=== PATIENT | female | born 1940 | race Caucasian/White ===

== ENCOUNTER 2017-04-02 16:38 | Inpatient (IN) | payer OTHER, MEDICARE ==
[~2017-04-02] VITALS: Ht 142.2 cm; Wt 55.8 kg
[~2017-04-02 16:38] MED LIST: ACIDOPHILU PO; ACIDOPHILUS1 CAP PO; ALBUTEROL 3 ML3 ML INH; ALPRAZOLAM0.5 M3 PO; AMITRIPTYLINE H50 MG PO; BINOSTO70 MG PO; CALCIUM + D 6001 TAB PO; FENOFIBRIC ACI135 MG PO; FIORICET 325 MG1 TAB PO; FOLIC ACID 1 MG PO; FUROSEMIDE20 MG PO; HYDROXYCHLOROQ200 M1 PO; LIDODERM 5% PAT1 PAT TOP; LOPRESSOR 25MG25 MG PO; LUNESTA3 MG PO; MASON NATURAL325 MG PO; MORPHINE SULFAT15 M2 PO; Mycostatin Susp PO; PREDNISONE5 MG PO; PREVACID 30MG30 MG PO; PROSTAT PO; TORADOL10 MG PO; TRAMADOL50 MG PO; VITAMIN B COMPL1 CA1 PO; VITAMIN D2000 I1 PO; VITAMIN D50000 IU PO; XANAX2 MG PO
[2017-04-02 18:03] LABS: ABSOLUTE BASOPHIL COUNT 0 /CUMM (0.0-0.2); ABSOLUTE EOSINOPHIL COUNT 0 /CUMM (0.0-0.7); ABSOLUTE GRANULOCYTE CT 5.8 /CUMM (1.4-6.5); ABSOLUTE MONOCYTE COUNT 0.3 /CUMM (0.10-0.60); BASOPHIL % 0.4 % (0.0-2.0); EOSINOPHIL % 0.1 % (0-5); GRANULOCYTE % 81.9 % (42.2-75.2); HEMATOCRIT 27.1 % (37-47); MEAN CORPUSCULAR HGB 27.9 PG (27.0-31.0); MEAN CORPUSCULAR HGB CONC 32.4 G/DL (33.0-37.0); MEAN CORPUSCULAR VOLUME 85.9 FL (81.0-99.0); MEAN PLATELET VOLUME 8.6 FL (7.4-10.4); PLATELET COUNT 236 /CUMM (130-400); RBC DISTRIBUTION WIDTH 18.9 % (11.5-14.5); RED BLOOD CELL CT 3.15 /CUMM (4.20-5.40)
--- NOTE | 2017-04-02 18:44 | ED DYSPNEA/ASTHMA COMPLAINT ---
History of Present Illness General Chief Complaint: General Adult Stated Complaint: SENT BY DAVI FOR ?CHF Source: patient, family, old records Exam Limitations: no limitations Vital Signs & Intake/Output Vital Signs & Intake/Output Vital Signs Date Time Temp Pulse Resp B/P B/P Pulse O2 O2 Flow FiO2 Mean Ox Delivery Rate 04/02 1922 Room Air 04/02 1654 97.7 78 20 145/74 96 Room Air Allergies Coded Allergies: Penicillins (SWELLING, RASH, ITCH 04/02/17) aspirin (RASH 04/02/17) cephalexin (From KEFLEX) (ITCHY 04/02/17) codeine (ITCH 04/02/17) levofloxacin (From LEVAQUIN) (RASH 04/02/17) oxaprozin (From DAYPRO) (RASH 04/02/17) propoxyphene (UNKNOWN REACTION TO DARVOCET 04/02/17) Reconcile Medications Apixaban (Eliquis) 2.5 MG TABLET 1 TAB PO BID BLOOD THINNER (Reported) Calcium Carbonate/Vitamin D3 (Os-Mehdi 500+D3 Caplet) 500 MG-200 TABLET 1 TAB PO DAILY SUPPLEMENT (Reported) Carvedilol 25 MG TABLET 1 TAB PO BID HEART/BP (Reported) Ergocalciferol (Vitamin D2) (Vitamin D2) 50,000 UNIT CAPSULE 1 CAP PO QWED SUPPLEMENT (Reported) Ferrous Sulfate 325 MG (65 MG IRON) TABLET 1 TAB PO QAM SUPPLEMENT (Reported) Hydromorphone HCl 2 MG TABLET 1-2 TAB PO QHS PRN PAIN (Reported) Hydroxychloroquine Sulfate 200 MG TABLET 1 TAB PO BID RA (Reported) Levothyroxine Sodium 25 MCG TABLET 1 TAB PO DAILY AC THYROID (Reported) Lisinopril 10 MG TABLET 1 TAB PO QAM BP (Reported) Omeprazole 40 MG CAPSULE. 1 CAP PO QAM GI (Reported) Prednisone 10 MG TABLET 1 TAB PO QAM STEROID (Reported) Sertraline HCl 25 MG TABLET 1 TAB PO QAM MENTAL HEALTH (Reported) Triage Note: PT TO ER C/C SIEGEL X [address] QUIROZ FOR R/O CHF EXACERBATION. DENIES C/P. Triage Nurses Notes Reviewed? yes Onset: Abrupt Duration: week(s): (1), constant Timing: recent history Severity: moderate Activities at Onset: activity Prior Episodes/Possible Cause: occasional episodes Modifying Factors: Worsens With: movement. Associated Symptoms: weakness HPI: 76-year-old female history of CHF hypertension anemia,rheumatoid arthritis on steroid, diverticulosis, GERD, hemorrhoids, migraine, obstructive sleep apnea not compliance with CPAP and osteoporosis disease presents with her son for evaluation complaining of one-week history of worsening dyspnea on exertion orthopnea. She denies any chest pain she follow up with her primary care physician and towel sorter this week who advised her to increase her Lasix to 40 mg by mouth. She's been compliant with taking all of her other medication including elliquis. No dizziness light as fever chills. She reports her baseline nonproductive cough no sputum production. Her legs up and getting progressively more swollen. (Richie Herrera) Past History Travel History Traveled to [place] past 21 day No Medical History Any Pertinent Medical History? see below for history Neurological: migraine EENT: cataracts Cardiovascular: CHF, hypertension, hyperlipidemia Respiratory: pneumonia, DYSPNEA Gastrointestinal: diverticulitis, HEMORRHOIDS BOWEL RESECTION COLOSTOMY Hepatic: NONE Renal: 3+PROTEIN IN URINE [id number] Musculoskeletal: rheumatoid arthritis Psychiatric: anxiety, depression, insomnia Endocrine: vitamin D deficiency Blood Disorders: anemia Cancer(s): NONE ICE SKATER/Reproductive: NONE History of MRSA: No History of VRE: No History of CDIFF: No Pneumonia Vaccine: 12/23/11 Surgical History Surgical History: colon resection, hysterectomy Psychosocial History Who do you live with Patient/Self Services at Home Servant What is your primary language Dominican Tobacco Use: Quit >30 days ago Family History Family History, If Any: Relation not specified for: *No pertinent family history Hx Contributory? No (Richie Herrera) Review of Systems Review of Systems Constitutional: Reports: see HPI. Comments Review of systems: See HPI, All other systems negative. Constitutional, no chills no fever, HEENT: no sore throat no congestion, Cardiovascular: No chest pain , no palpitation Skin: no rashes, no change in skin Respiratory: dyspnea cough no sputum no hemoptysis GI: No nausea no vomiting, no diarrhea Muscle skeletal: No joint pain, no back pain Neurologic: , no headache Heme/endocrine: No bruising Immunology: No lymphadenopathy (Richie Herrera) Physical Exam Physical Exam General Appearance: no apparent distress, alert, awake, cachetic Respiratory: decreased breath sounds Comments: Well-developed well-nourished person in no acute distress HEENT: Normal EENT exam; PERRL, EOMI, HEAD is atraumatic. moist mucous membranes. Neck: Supple, normal range of motion without pain or tenderness Back: Full range of motion Cardiovascular: Regular rate and rhythms no murmur Respiratory: Chest nontender.There were no bony deformities, no asymmetry. No respiratory distress. Patient speaking in full complete sentences. Diminished breath sounds bilaterally Abdomen: Soft, nontender nondistended, no appreciable organomegaly. Normal bowel sounds. No rebound/guarding, No appreciable enlargement of the abdominal aorta, No ascites. rectal: (+) external hemorrhoid, no bleeding Extremity: 4+ pitting edema full range of motion of extremitie Neuro: Alert oriented x3, motor sensory normal, There were no obvious focal neurologic abnormalities. Skin: dry skin noted to sacrum, no ulcer No appreciable rash on exposed skin, skin is warm and dry. Psych: Mood and affect is normal, memory and judgment is normal. Core Measures ACS in differential dx? Yes CVA/TIA Diagnosis No Sepsis Present: No Sepsis Focused Exam Completed? No (Radha MATTA,Richie) Progress Differential Diagnosis: asthma, AMI, bronchitis, CHF, COPD, pericarditis, pneumonia, pneumothorax, unstable angina Plan of Care: Orders Procedure Date/time Status Heart Healthy Diet 04/03 B Active TROPONIN LEVEL 04/03 0600 Active EKG 04/03 0600 Active TROPONIN LEVEL 04/03 0000 Active EKG 04/03 0000 Active Pathway - chart 04/02 2151 Active House Staff 04/02 2151 Active Patient Data 04/02 2151 Active Code Status 04/02 2151 Active URINALYSIS 04/02 2149 Active Intake & Output 04/02 2031 Active Add-on Test (ER Only) 04/02 2019 Active ECHOCARDIOGRAM 04/02 1954 Active Patient Data 04/02 1940 Active OXYGEN SETUP (GEN) 04/02 192 Active Saline Lock 04/02 1921 Active Admit to inpatient 04/02 1921 Active Vital Signs 04/02 1921 Active Activity/Ambulation 04/02 1921 Active Code Status 04/02 1921 Complete Telemetry/Physical Therapy Aides Teacher 04/02 191 Active Cueto, Insertion/Removal/Asses 04/02 191 Active CULTURE,URINE 04/02 191 Active PARTIAL THROMBOPLASTIN TIME 04/02 1725 Complete PROTHROMBIN TIME 04/02 1725 Complete TROPONIN LEVEL 04/02 1650 Complete MAGNESIUM 04/02 1650 Complete COMPREHENSIVE METABOLIC PANEL 04/02 165 Complete CBC WITHOUT DIFFERENTIAL 04/02 1650 Complete B-TYPE NATRIURETIC PEP (BNP) 04/02 165 Complete EKG 04/02 1639 Active Weight 04/02 UNK Active VTE Mechanical Prophylaxis 04/02 UNK Active Telemetry/Physical Therapy Aides Teacher 04/02 UNK Active Nursing Misc 04/02 UNK Active Intake & Output 04/02 UNK Active Current Medications Sig/Rick Start time Last Medication Dose Stop Time Status Admin Furosemide 40 MG 7:30 AM, & 4:30 PM 04/03 0730 UNVr (Lasix) Heparin Sodium 5,000 UNIT Q8 04/02 2200 UNVr (Porcine) Laboratory Tests 04/02/17 1725: Anion Gap 9, Estimated GFR 40 L, BUN/Creatinine Ratio 30.0 H, Glucose 100 H, Calcium 9.4, Magnesium 1.8, Total Bilirubin < 0.1 L, AST 18, ALT 33, Alkaline Phosphatase 58, Troponin I 0.39 *H, Enz-O-Dnbplmxqkgf Pept 8090 H, Total Protein 4.7 L, Albumin 2.4 L, Globulin 2.3, Albumin/Globulin Ratio 1.0 L, PT 12.5, INR 1.19, APTT 27, CBC w Diff NO MAN DIFF REQ, RBC 3.15 L, MCV 85.9, MCH 27.9, RDW 18.9 H, MPV 8.6, Gran % 81.9 H, Lymphocytes % 14.0 L, Monocytes % 3.6, Eosinophils % 0.1, Basophils % 0.4, Absolute Granulocytes 5.8, Absolute Lymphocytes 1.0 L, Absolute Monocytes 0.3, Absolute Eosinophils 0, Absolute Basophils 0, PUBS MCHC 32.4 L Microbiology 04/02 1999 URINE ROUT: Urine Culture - RECD labs ordered, old records reviewed. case d/w dr hernandez who agrees with plan. pt med with iv lasix 40mg per dr quiroz, i spoke with him regarding todays labs and elevated troponin and ekg. pt has no pain. he advised she is stable for tele. Diagnostic Imaging: Viewed by Me: Radiology Read. Discussed w/RAD: Radiology Read. Radiology Impression: PATIENT: RYAN CHRISTENSEN PRESENT AGE: 76 PATIENT ACCOUNT NO: [id number] : 39 LOCATION: LAX ORDERING PHYSICIAN: Jayson Quiroz MD SERVICE DATE: 03/31/171434 EXAM TYPE: RAD - XRY-CHEST XRAY, TWO VIEWS EXAMINATION: CHEST 2 VIEWS CLINICAL INFORMATION: Shortness of breath. COMPARISON: 11/15/2014. TECHNIQUE: AP frontal and lateral views of the chest were obtained. FINDINGS: The cardiac silhouette is enlarged, but stable. There are moderate bilateral pleural effusions with associated airspace disease. The osseous structures are stable. IMPRESSION: Stable cardiomegaly with moderate bilateral pleural effusions with associated airspace disease. DICTATED BY: James Buchanan MD DATE/TIME DICTATED:03/31/171526 LEAK DETECTOR:TED DATE/TIME TRANSCRIBED:03/31/171526 CONFIDENTIAL, DO NOT COPY WITHOUT APPROPRIATE AUTHORIZATION. <Electronically signed in Other Vendor System> SIGNED BY: James Buchanan MD 03/31/17 5108 Initial ED EKG: nsr at 70, t wave inversion v5-v6, nonspecific st seg changes Prior EKG: changed (10/2014) Rhythm Strip: normal sinus rhythm (Richie Herrera) Departure Departure Time of Disposition: 1937 Disposition: STILL A PATIENT Condition: Stable Clinical Impression Primary Impression: CHF exacerbation Qualifiers: Congestive heart failure type: unspecified congestive heart failure type Qualified Code: I50.9 - Heart failure, unspecified Secondary Impressions: Chronic anemia Chronic kidney disease Qualifiers: Chronic kidney disease stage: unspecified stage Qualified Code: N18.9 - Chronic kidney disease, unspecified Elevated troponin Pleural effusion Referrals: Corrina Fortune MD (PCP/Family) Departure Forms: Customer Survey General Discharge Information Admission Note Spoke With: Kodak Marques MD Documentation of Exam: Documentation of any treatments & extenuating circumstances including Concerns Regarding Discharge (functional status, medication knowledge or non-compliance, living conditions, etc.) that warrant an admission rather than observation: [iv diuresis, trend labs and troponin, cardiology consult, premature discharge would be medically harmful (Richie Herrera) PA/MEDICAL LABORATORY MANAGER Co-Sign Statement Statement: ED Attending supervision documentation- x I saw and evaluated the patient. I have also reviewed all the pertinent lab results and diagnostic results. I agree with the findings and the plan of care as documented in the PA's/MEDICAL LABORATORY MANAGER's documentation. PMHx CHF, HTN, RA with SIEGEL, rales, + trop, elevated BNP, lateral new ischemic EKG changes and bilateral effusions on CXR [] I have reviewed the ED Record and agree with the PA's/MEDICAL LABORATORY MANAGER's documentation. [] Additions or exceptions (if any) to the PAs/MEDICAL LABORATORY MANAGER's note and plan are summarized below: [] (Pedro CURTIS,Reggie) Critical Care Note Critical Care Note Critical Care Time: non-applicable (Radha MATTA,Richie)
[2017-04-02] MEDS ORDERED: LEVOTHYROXINE25 MCG PO (19:10)
[2017-04-02] MEDS ORDERED: HYDROXYCHLOROQ200 M2 PO (19:10)
[2017-04-02] MEDS ORDERED: OMEPRAZOLE40 M1 PO (19:10)
[2017-04-02] MEDS ORDERED: LISINOPRIL10 M1 PO (19:11)
[2017-04-02] MEDS ORDERED: FERROUS SULFAT325 M3 PO (19:11)
[2017-04-02] MEDS ORDERED: SERTRALINE HCL25 MG PO (19:11)
[2017-04-02] MEDS ORDERED: ELIQUIS2.5 M1 PO (19:12)
[2017-04-02] MEDS ORDERED: PREDNISONE10 M2 PO (19:12)
[2017-04-02] MEDS ORDERED: CARVEDILOL25 M1 PO (19:12)
[2017-04-02] MEDS ORDERED: HYDROMORPHONE HC2 M1 PO (19:13)
[2017-04-02] MEDS ORDERED: OS-CAL 500+D31 EAC1 PO (19:13)
[2017-04-02] MEDS ORDERED: VITAMIN D250000 UNIT PO (19:13)
--- NOTE | 2017-04-02 20:04 | History & Physical ---
Jaswant Noel MD 04/02/17 2004: General Information and HPI MD Statement: I have seen and personally examined RYAN CHRISTENSEN and documented this H&P. The patient is a 76 year old F who presented with a patient stated chief complaint of [dyspnea on exertion, sent in by Dr. Zavala]. Source of Information: patient, family, old records Exam Limitations: confusion, poor historian History of Present Illness: Patient is a 76-year-old female with past medical history of stage II diastolic dysfunction, hypertension, history of DVT currently on Eliquis, anemia, obstructive sleep apnea noncompliant with CPAP, anxiety, depression, rheumatoid arthritis on prednisone, diverticulosis, hemorrhoids presents this admission with chief complaint of dyspnea on exertion, sent in by Dr. Zavala. Patient is a poor historian. Patient's son was present at the time of interview and provided much of the history however stated that there were discrepancies on what the patient disclosed to him compared to the visiting nurses about her symptoms over the past few weeks. Patient states that for the past 3-4 days she has had shortness of breath on exertion while moving from the bed to the commode. States that she has associated nonradiating left chest pain during this time. States that over the past one day she has noticed increasing chest pain with radiation to the back. States that the chest pain resolves for 10-15 minutes of complete rest. Patient denies any palpitations, sweating, nausea/ vomiting. Per son patient is seen by the visiting nurse daily and receives her medications and is bleed daily. States that over the past 2 weeks patient has received a total of 4 doses of Lasix 40 mg due to weight gain. Son states that patient complained of shortness of breath to the visiting nurse today who spoke to Dr. Zavala and was ED. Patient and son also notes that the patient has had increasing bilateral lower extremity edema which has worsened since . Patient was recently hospitalized at [place] for pneumonia after which she was discharged to a rehabilitation facility in [facility] where her Lasix was stopped. It is unclear as to why this occurred. Patient states that she sleeps in a recliner which makes easier for her to raise the head and her legs. States that there has been no change in the elevation of her head of the recliner. Denies PND. Son reports that patient remains nonactive and either in bed or in front of the TV for approximately 75% of the day. States that the patient requires a walker and assist of one to walk or uses a wheelchair. States over the past year she has significantly deteriorated. Allergies/Medications Allergies: Coded Allergies: Penicillins (SWELLING, RASH, ITCH 04/02/17) aspirin (RASH 04/02/17) cephalexin (From KEFLEX) (ITCHY 04/02/17) codeine (ITCH 04/02/17) levofloxacin (From LEVAQUIN) (RASH 04/02/17) oxaprozin (From DAYPRO) (RASH 04/02/17) propoxyphene (UNKNOWN REACTION TO DARVOCET 04/02/17) Home Med list Apixaban (Eliquis) 2.5 MG TABLET 1 TAB PO BID BLOOD THINNER (Reported) Calcium Carbonate/Vitamin D3 (Os-Mehdi 500+D3 Caplet) 500 MG-200 TABLET 1 TAB PO DAILY SUPPLEMENT (Reported) Carvedilol 25 MG TABLET 1 TAB PO BID HEART/BP (Reported) Ergocalciferol (Vitamin D2) (Vitamin D2) 50,000 UNIT CAPSULE 1 CAP PO QWED SUPPLEMENT (Reported) Ferrous Sulfate 325 MG (65 MG IRON) TABLET 1 TAB PO QAM SUPPLEMENT (Reported) Hydromorphone HCl 2 MG TABLET 1-2 TAB PO QHS PRN PAIN (Reported) Hydroxychloroquine Sulfate 200 MG TABLET 1 TAB PO BID RA (Reported) Levothyroxine Sodium 25 MCG TABLET 1 TAB PO DAILY AC THYROID (Reported) Lisinopril 10 MG TABLET 1 TAB PO QAM BP (Reported) Omeprazole 40 MG CAPSULE.DR 1 CAP PO QAM GI (Reported) Prednisone 10 MG TABLET 1 TAB PO QAM STEROID (Reported) Sertraline HCl 25 MG TABLET 1 TAB PO QAM MENTAL HEALTH (Reported) Past History Travel History Traveled to [place] past 21 day No Medical History Neurological: migraine EENT: cataracts Cardiovascular: CHF, hypertension, hyperlipidemia Respiratory: pneumonia, DYSPNEA Gastrointestinal: diverticulitis, HEMORRHOIDS BOWEL RESECTION COLOSTOMY Hepatic: NONE Renal: 3+PROTEIN IN URINE [id number] Musculoskeletal: rheumatoid arthritis Psychiatric: anxiety, depression, insomnia Endocrine: vitamin D deficiency Blood Disorders: anemia Cancer(s): NONE ONCOLOGY PHYSICIAN ASSISTANT/Reproductive: NONE History of MRSA: No History of VRE: No History of CDIFF: No Pneumonia Vaccine: 12/23/11 Surgical History Surgical History: colon resection, hysterectomy Past Family/Social History Family History Relations & Conditions if any Relation not specified for: *No pertinent family history Psychosocial History Services at Home: Servant Primary Language: Romansh Functional Ability Ambulation: cane IADLs Needs Assist: shopping, housework, food prep. Review of Systems Review of Systems Constitutional: Reports: see HPI, chills. Cardiovascular: Reports: see HPI. Respiratory: Reports: see HPI. GI: Reports: changes in stool (dark stool in colostomy). Genitourinary: Reports: no symptoms. Musculoskeletal: Reports: joint pain. Skin: Reports: no symptoms. Neurological/Psychological: Reports: confusion. Hematologic/Endocrine: Reports: no symptoms. Exam & Diagnostic Data Last 24 Hrs of Vital Signs/I&O Vital Signs Date Time Temp Pulse Resp B/P B/P Pulse O2 O2 Flow FiO2 Mean Ox Delivery Rate 04/03 0457 136/68 04/02 2343 99.0 65 18 98/54 94 04/02 2140 Room Air 04/02 1922 Room Air 04/02 1654 97.7 78 20 145/74 96 Room Air Intake & Output 04/03 0800 04/03 0000 04/02 1600 Intake Total Output Total 200 Balance -200 Output, Urine 200 Patient 143 lb 149 lb Weight Weight Chair scale Reported by Patient Measurement Method Physical Exam General Appearance Alert, Cooperative, No Acute Distress HEENT Atraumatic, PERRLA, EOMI, Mucous Membr. moist/pink Cardiovascular Regular Rate, Normal S1, Normal S2, S3 Lungs decreased air entry bilaterally Abdomen Normal Bowel Sounds, Soft, No Tenderness, 1+ edema Neurological Normal Speech, Sensation Intact, Cranial Nerves 3-12 NL Extremities 3+ pitting edema bilaterally Vascular Normal Pulses, Pulses Symmetrical Last 24 Hrs of Labs/Rubin: Laboratory Tests 04/03/17 0030: Troponin I 0.43 *H 04/02/17 1725: Anion Gap 9, Estimated GFR 40 L, BUN/Creatinine Ratio 30.0 H, Glucose 100 H, Calcium 9.4, Magnesium 1.8, Iron 34 L, TIBC 233 L, Ferritin Pending, Total Bilirubin < 0.1 L, AST 18, ALT 33, Alkaline Phosphatase 58, Troponin I 0.39 *H, Pdu-X-Enirgpduzkg Pept 8090 H, Total Protein 4.7 L, Albumin 2.4 L, Globulin 2.3, Albumin/Globulin Ratio 1.0 L, Vitamin B12 Pending, Folate Pending, PT 12.5 , INR 1.19, APTT 27, CBC w Diff NO MAN DIFF REQ, RBC 3.15 L, MCV 85.9, MCH 27.9 , RDW 18.9 H, MPV 8.6, Gran % 81.9 H, Lymphocytes % 14.0 L, Monocytes % 3.6, Eosinophils % 0.1, Basophils % 0.4, Absolute Granulocytes 5.8, Absolute Lymphocytes 1.0 L, Absolute Monocytes 0.3, Absolute Eosinophils 0, Absolute Basophils 0, PUBS MCHC 32.4 L Microbiology 04/02 1999 URINE ROUT: Urine Culture - RECD Diagnostic Data EKG Results Normal sinus rhythm at a rate of 66 with T-wave flattening and inversion in leads II, III, aVL, and inversions in V5 and V6. Repeat EKG showing evolving T wave inversions now also in V4 and more prominent in other leads CXR Results Stable cardiomegaly with moderate bilateral pleural effusions with associated airspace disease Other Results Echo in 2014 showing an LV ejection fraction of greater than 65% with stage II diastolic dysfunction and "pseudo-normal" filling pattern Assessment/Plan Assessment: Patient is a 76-year-old female with significant past medical history of diastolic dysfunction, hypertension, anemia, anxiety presenting this admission with dyspnea on exertion, extensive edema in lower extremities all the way up to patient's iliac crest, bilateral pleural effusions and elevated troponins with EKG changes and anemia. Patient will be admitted to the telemetry floor for management of followin. Decompensated diastolic heart failure. This is likely secondary to fluid overload from discontinuing Lasix at the half-way. Other possible causes of this include anemia, NM, infection. Cardiology consult in the a.m. Dr. Zavala is patient's flour broker. Monitor on telemetry Lasix 40 mg daily with BEP to monitor sodium and potassium Serial Troponin and EKG to rule out ACS Echo in a.m. Lower extremity Dopplers TSH and T4 Continue carvedilol 25 mg twice a day NPO for possible thoracentesis in the a.m. 2. Atypical chest pain with elevated troponin and EKG changes showing evolving T-wave inversions. Trend troponins and EKG Cardiology consult [place] stool Patient started on IV heparin Atorvastatin, aspirin 3. Anemia acute on chronic Continue iron supplement Iron levels him a B12, folate Type and cross Stool guaiac 4. History of hypothyroidism Continue synthroid 5. History of rheumatoid arthritis Continue prednisone and Plaquenil DVT PPx: on IV heparin Diet: NPO for possible thoracentesis Code: DNR/DNI As Ranked By This Provider Problem List: 1. CHF exacerbation Qualifiers Congestive heart failure type: unspecified congestive heart failure type Qualified Code: I50.9 - Heart failure, unspecified 2. Elevated troponin 3. Chest pain, atypical 4. Pleural effusion Core Measures/Misc (12/08) Acute Coronary Syndrome ACS Diagnosis: Yes Last Known EF % 65 Congestive Heart Failure Congestive Heart Failure Diagnosis No Cerebrovascular Accident CVA/TIA Diagnosis: No VTE (View Protocol) VTE Risk Factors Age>40 No Mechanical VTE Prophylaxis d/t N/A MechProphylax Ordered No VTE Pharm Prophylaxis d/t NA PharmProphylax ordered Sepsis (View protocol) Sepsis Present: No Jerald CURTIS, [facility] 04/02/17 2331: Attending MD Review Statement Attending Statement Attending MD Statement: examined this patient, discuss w/resident/PA/AGGREGATE CONVEYOR OPERATOR, agreed w/resident/PA/AGGREGATE CONVEYOR OPERATOR, discussed with family, reviewed images, amended to note Attending Assessment/Plan: 76 yo F with h/o RA on plaquenil and prednisone, HTN, HLD, anxiety, possible diastolic CHF, TACO not on CPAP, CKD stage 3, chronic anemia, colonic perforation following a colonoscopy requiring Constance's procedure with hospital course c/b oliguric ATN and demand ischemia (Oct 2014), re-admitted same month for hypoxia in the setting of pleural effusions at which point patient was transferred to [facility] per family request. Patient underwent thoracentesis at [facility] but is not sure of the diagnosis. Subsequently, patient was admitted twice in the past year ( 2016) to [facility] for LLE DVT (July 2016) on Eliquis and later (Dec 2016) for pneumonia and pleural effusions (underwent thoracentesis). She is here today for evaluation of worsening dyspnea. Patient lives alone, has an aide and a visiting nurse, barely ambulates with a walker from her recliner to the commode. She needs assistance with ADL's. History obtained from son at bedside. Patient's lower extremity edema has worsened over past 2 weeks, visiting nurse discussed with Dr. Zavala who advised lasix 40 mg for 3 days. However, despite the lasix, the edema did not improve. Today, patient was extremely short of breath while seated in her recliner. She also reports left sided chest discomfort and dyspnea while transferring herself from commode to the recliner. No palpitations or lightheadedness. Patient reports a h/o CHF and was on lasix in the past but most recently this was discontinued after her recent hospitalization at [place] (Dec 2016). Family is not sure why. Patient also reports that her stool in the colostomy has been darker in the past 1 week (while on iron supplements). Vitals stable. Exam: AAO, in mild distress due to duff catheter, MMM, Neck: JVD not appreciated, Chest reduced air entry R>L, Heart S1S2 regular, Abd soft, left colostomy bag+ with dark stool, LE: 3+ pitting pedal edema, difficult to assess peripheral pulses due to edema. Sacral decubitus stage 1 wound. Labs: H/H 8.8/27.1 (baseline H/H 9-11/28-33), bicarb 21, BUN 39, creat 1.3 ( baseline 1.0-1.4), trop 0.39, proBNP 8090. CXR: Stable cardiomegaly with mdoerate bilateral pleural effusions with associated airspace disease. Echo ( 2014): EF > 65%, stage 2 diastolic dysfunction. Initial EKG: sinus rhythm, J-point elevation in V2, T-wave flattening and inversions in I, II, aVL, V5-6 (new), Qtc 394. 2nd troponin 0.43 with EKG now showing diffuse TWI in inferior leads, V4-6. Assessment and plan: 1. Dyspnea at rest and on exertion 2. Bilateral lower extremity edema 3. Acute on chronic heart failure, probably diastolic CHF 4. Bilateral pleural effusions (R>L) 5. Acute on chronic normocytic anemia 6. Hypoalbuminemia 7. Elevated troponin with EKG changes NSTEMI vs Type 2 NM - Admit to telemetry - Daily weights, strict I/O's - IV lasix 40 daily, can increase to 40 BID based on diuresis - Monitor renal functions while on lasix - Obtain echo to assess LV function - Serial EKG and troponin - Check TSH, free T4 - Cardio consult - LE dopplers to rule out DVT - Type and crossmatch, transfuse if Hb < 8.0 - Guaiac stools, check iron studies, B12, folic acid, retic count - CT chest without contrast was done - shows right greater than left bilateral pleural effusions with associated airspace disease, moderate sized hiatal hernia , cholelithiasis. - Obtain Pulm consult - Plan for diagnostic and therapeutic thoracentesis by IR in AM - Given elevated troponin with EKG changes, and possible plan for thoracentesis, we will hold off eliquis and initiate IV heparin per PTT protocol. - Plan to resume eliquis post thoracentesis - If hypotensive, check cortisol levels and give stress dose steroids (patient is on chronic prednisone) DVT ppx IV heparin. DNR/I. Korina Carrillo 04/03/17 0235: General Information and HPI Allergies/Medications Compliance With Home Meds: GOOD Resident Review Statement Resident Statement: examined this patient, discussed with chemist internship, agreed with chemist internship, discussed with family, reviewed EMR data (avail), discussed with nursing , discussed with case mgmt, reviewed images, amended to note Other Findings: This is a very pleasant 76-year-old woman with past medical history of stage II HFpEF and mild RVSP (30 mmhg and mild TR) (prior admission in 2014 for bilateral pleural effusion which required thoracentesis; @ [facility], results ??), colon perforation s/p Constance precedure and colostomy bag placement which was complicated w/ type II NM (w/o wall motion ab/nl; normal EF, HFpEF), who was admitted for grooming to the hospital for worsening dyspnea on exertion and peripheral edema failed outpatient therapy. She lives right across the street to her son, who is the primary caregiver for his mother. Majority of the story was obtained from him and was double checked with the patient . According to patient's son, she was admitted to [facility] last year for pneumonia and pleural effusion which required antibiotic therapy and thoracentesis. She was discharged in November to [facility] for rehabilitation. According to son, patient's Lasix was stopped at some point either a [place] hospital or half-way she was discharged home one week after . Patientincrease in swelling of her legs on stay but otherwise she was asymptomatic. About one week ago visiting nurse was concerned (significant increase in weight and worsening of peripheral edema; otherwise asymptomatic) [facility] called Dr. Zavala's office. Outpatient chest x-ray showed development of bilateral pleural effusion (R > L) and patient was started on a course of by mouth Lasix 40 mg for 3 days, which according to son did not resolve the aforementioned problems. At her baseline patient is not very physically active (physical activity less < 4ME) and according to her son spends most of the day in bed and recyliner chair. According to son For the past 3 days she became winded/had labored breathing with minimal activity (changing clothes, and using commode, etc.); Shortness of breath worsened over the stretcher 3 days and son noticed significant increase of her bilateral lower extremity edema. Patient sleeps in a recliner (has not raised the head of the incline or for the past few days), denies paroxysmal nocturnal dyspnea, right upper quadrant abdominal discomfort, cough and sputum production, GI/ symptoms, lightheadedness and dizziness. On the related note, for the past 72 hours patient started having episodes of inituially, self-limited, mainly left-sided, exertional chest pain, without radiation to left or right arm or left jaw or back, pain was 4-5 out of 10 and was not associated with nausea, vomiting, feeling sweaty or clammy, and it was resolving with rest in 10-15 minutes. On the day of admission day, patients' chest pain became more intense (5-6 out of 10) with the same characteristics but pain radiated to her back. Patient remained otherwise asymptomatic. Son contacted Dr. Zavala's office, who recommended to transfer the patient to the emergency department. * In the emergency room, she received 40 mg of IV Lasix. CT scan of the chest was obtained which showed large right and a moderate left pleural effusion. VSS. ROS: Dyspnea on exertion, exertional left-sided chest pain. PH/EX: GA: Comfortable not in acute distress; head and neck: ?? JVD, mucosal membranes: Moist; heart: S1-S2, S3 gallop, no murmur; lungs: Diminished air movement lungs are quiet prominently on her right base, no crackle, no wheezing; abdomen is soft no guarding no rebound no hepatojugular reflux, 1+ pitting edema up to the umbilicus level (on the iliac crest); extremities: Bilateral 3+ pitting pedal edema going up to umbilicus. Pertinent data CBC: Normal WBC and platelets, H&H: 8.8/27.1 compared to 03/31/2017 (9.1/28.6) Sodium 140; potassium 4.9; chloride 111, bicarbonate 21, AG 9, creatinine 1.3 Coagulation panel: PT 12.5 INR 1.19 Troponin 0.39 at the time of admission>> 0.43 EKG Initial EKG: Normal sinus rate and rhythm, subtle T-wave inversion in V5 and V6 ?? v4 Second EKG at midnight: Normal sinus rate and rhythm; obvious T-wave inversion in V5 and V6 and V4 ProBNP: 8090 Assessment Kathia is a 76 years old woman was admitted for decompensated heart failure for what it seems to be related to multifactorial causes. List of active problems #1 decompensated CHF: Probably multifactorial. Reviewing patient's records showed worsening of her baseline anemia that might have caused ACS. Additionally, anemia by itself could contribute to patient's worsening symptoms of dyspnea and extraction and diminished physical tolerance for the past few months. Additionally lack of transfer Lasix which was discovered in a half-way would have contributed to decompensation of her heart failure. #2 symptomatic anemia #3 NSTEMI # hypothyroidism # History of DVT on Eliqis- hold # Hypothyroidism # Rheumatoid arthritis Plan * Admit to telemetry for continuous heart monitoring * Hold elquis in anticipation for thoracentesis * Aspirin 325 mg once * Aspirin 81 mg by mouth daily; holding off in giving clopidogrel in anticipation for thoracentesis * Start IV heparin for ACS and DVT prophylaxis * Duff for 24 hours and strict ins and outs control try to maintain negative fluid balance * Lasix 40 mg IV daily * daily weigh; heart healthy diet and gentle fluid restriction * Ultrasound-guided thoracentesis * Follow body fluids labs (cell count, cytology, Gram stain, albumin, total protein, cholesterol) ; check modified lites criteria * Continue methotrexate @ home dose every Friday * Continue prednisone 10 mg daily * Continue folic acid supplementation * Continue hydroxychloroquine @ home dose 200 mg by mouth twice a day * Continue lisinopril 10 mg daily * Continue carvedilol 25 mg daily * Tylenol that 2 mg by mouth as needed at bedtime * Check TSH, free T4 * Cardio consult * pulm consult * LE dopplers to rule out DVT * Type and crossmatch, transfuse if Hb < 8.0 * Guaiac stools, check iron studies, B12, folic acid, retic count DNR/DNI Housekeeping
[2017-04-02 20:45] LABS: PT 12.5 SEC (9.4-12.5); PTT 27 SEC (25-37)
--- NOTE | 2017-04-02 20:58 | Admission Certification ---
Admission Certification Certification Statement - As attending physician, I certify that at the time of - admission, based on clinical presentation, severity of - symptoms, need for further diagnostic testing and - therapeutic interventions, and risk of adverse outcomes - without in-hospital treatment, in my clinical assessment, - this patient requires an acute hospital stay for a minimum - of two nights or longer. I have also considered psychsocial - factors such as support system, advanced age, financial - issues, cognitive issues, and failed out-patient treatments, - past re-admission history, safety of patient, and lack of - compliance as applicable. Specific rationale supporting this admission is: Acute on chronic heart failure with preserved ejection fraction. Elevated troponin NSTEMI vs. Type 2 NC.
--- NOTE | 2017-04-02 21:09 | CT SCAN REPORT ---
EXAMINATION: CT CHEST WITHOUT CONTRAST CLINICAL INFORMATION: Follow-up pleural effusion. Pneumonia. COMPARISON: Multiple prior exams are reviewed. The most recent is from 03/31/2017. TECHNIQUE: Contiguous axial thin section helical images of the chest were performed without contrast. The data set was reformatted in the coronal and sagittal planes and reviewed on an independent workstation. DLP: 323 mGy-cm. FINDINGS: The heart is of normal size. There is no pericardial effusion. There is neither mediastinal, hilar nor axillary lymphadenopathy. There are no chest wall masses. Review of lung windows demonstrates a large right and a moderate left pleural effusion. There is associated passive atelectasis. There is also linear atelectasis within the inferior segment of the lingula. There are no demonstrable pulmonary parenchymal nodules. There is a moderate-sized hiatal hernia. Images of the upper abdomen demonstrate that the liver is of normal size and attenuation without focal lesions. Normal adrenal glands are identified. There are calculi within the gallbladder lumen. Bone windows: Neither sclerotic nor lytic bone lesions are identified. IMPRESSION: Right greater than left bilateral pleural effusions with associated airspace disease. Moderate sized hiatal hernia. Cholelithiasis without evidence of cholecystitis.
[2017-04-02 23:43] VITALS: BP 98/54
[2017-04-03 04:57] VITALS: BP 136/68
[2017-04-03 08:21] LABS: PT 11.9 SEC (9.4-12.5)
--- NOTE | 2017-04-03 09:59 | Cons- Cardiology ---
General Information and HPI Consulting Request Date of Consult: 04/03/17 Requested By: Jerald CURTIS,[employer] Reason for Consult: Shortness of breath. Source of Information: patient, old records Exam Limitations: poor historian History of Present Illness: Mrs. Rama Corona is a 76-year-old female with a history of anxiety/ depression, rheumatoid arthritis on chronic steroid therapy, previous deep venous thrombosis on chronic anticoagulation with the factor Xa inhibitor Eliquis (apixaban), obesity, obstructive sleep apnea on CPAP, chronic anemia, hypertension, aortic stenosis, left ventricular hypertrophy, and diastolic dysfunction, who presented to the ED on our recommendation after her visiting nurse contacted our office to relate symptoms of progressive shortness of breath and weight gain. She was to be on a chronic diuretic dosage, but for unclear reasons was not taking this. We reinitiated therapy with furosemide 20 mg daily which did not improve her symptoms and, as such, was increased to 40 mg daily. We had also recommended that she be enrolled in the heart wellness clinic, but she claimed she couldn't get there due to transportation difficulties. We stayed in contact with the visiting nurse and did have her undergo a CXR on 03/31/2017 which revealed cardiomegaly, moderate bilateral pleural effusions and associated airspace disease. When we were contacted yesterday and learned that she was not feeling any better , we recommended evaluation in the ED. She was last hospitalized here (10/10-10/28/2014) for colonic perforation following colonoscopy for GI symptoms s/p Constance procedure with subsequent modest bump in troponin felt secondary to type II myocardial infarction, volume overload, acute kidney injury, and growth of Escherichia coli in her body fluid who was again admitted (-11/17/2014) after presenting to the ED with constant periumbilical 8/10 ache with some associated shortness of breath with room air O2 saturation at ECF 88% following 2 days of decreased by mouth intake secondary to poor appetite and nausea. Also reportedly had a fever, nausea and vomited 3, as well as, some loose stool in her colostomy bag. In the emergency department she was afebrile, tachypneic, and did have an elevated WBC count with left shift. There were no symptoms to suggest a urinary tract infection. She had a low probability and had been recommended thoracentesis for bilateral pleural effusions, but opted to be transferred to [facility]. It was no evidence of an acute intra-abdominal process. A VQ scan was performed that was low probability for pulmonary embolism. She was found to have significant bilateral pleural effusions right greater than left. Allergies/Medications Allergies: Coded Allergies: Penicillins (SWELLING, RASH, ITCH 04/02/17) aspirin (RASH 04/02/17) cephalexin (From KEFLEX) (ITCHY 04/02/17) codeine (ITCH 04/02/17) levofloxacin (From LEVAQUIN) (RASH 04/02/17) oxaprozin (From DAYPRO) (RASH 04/02/17) propoxyphene (UNKNOWN REACTION TO DARVOCET 04/02/17) Home Med List: Apixaban (Eliquis) 2.5 MG TABLET 1 TAB PO BID BLOOD THINNER (Reported) Calcium Carbonate/Vitamin D3 (Os-Mehdi 500+D3 Caplet) 500 MG-200 TABLET 1 TAB PO DAILY SUPPLEMENT (Reported) Carvedilol 25 MG TABLET 1 TAB PO BID HEART/BP (Reported) Ergocalciferol (Vitamin D2) (Vitamin D2) 50,000 UNIT CAPSULE 1 CAP PO QWED SUPPLEMENT (Reported) Ferrous Sulfate 325 MG (65 MG IRON) TABLET 1 TAB PO QAM SUPPLEMENT (Reported) Hydromorphone HCl 2 MG TABLET 1-2 TAB PO QHS PRN PAIN (Reported) Hydroxychloroquine Sulfate 200 MG TABLET 1 TAB PO BID RA (Reported) Levothyroxine Sodium 25 MCG TABLET 1 TAB PO DAILY AC THYROID (Reported) Lisinopril 10 MG TABLET 1 TAB PO QAM BP (Reported) Omeprazole 40 MG CAPSULE.DR 1 CAP PO QAM GI (Reported) Prednisone 10 MG TABLET 1 TAB PO QAM STEROID (Reported) Sertraline HCl 25 MG TABLET 1 TAB PO QAM MENTAL HEALTH (Reported) Review of Systems Review of Systems: A 14 point system review was obtained and was noncontributory, other than as above. Past History Travel History Traveled to [place] past 21 day No Medical History Blood Transfusion Hx: No Neurological: migraine EENT: cataracts Cardiovascular: CHF, hypertension, hyperlipidemia Respiratory: pneumonia, DYSPNEA Gastrointestinal: diverticulitis, HEMORRHOIDS BOWEL RESECTION COLOSTOMY Hepatic: NONE Renal: 3+PROTEIN IN URINE [id number] Musculoskeletal: rheumatoid arthritis Psychiatric: anxiety, depression, insomnia Endocrine: vitamin D deficiency Blood Disorders: anemia Cancer(s): NONE PRINCIPAL BIOSTATISTICIAN/Reproductive: NONE Surgical History Surgical History: colon resection, hysterectomy, laminectomy Family History Relations & Conditions If Any: Relation not specified for: *No pertinent family history Psychosocial History Where Do You Live? Home Services at Home: [facility] Primary Language: [place] Smoking Status: Former Smoker Functional Ability Ambulation: cane IADLs Needs Assist: shopping, housework, food prep. Exam & Diagnostic Data Vital Signs and I&O Vital Signs Date Time Temp Pulse Resp B/P B/P Pulse O2 O2 Flow FiO2 Mean Ox Delivery Rate 04/03 1042 62 140/62 04/03 1042 62 140/62 04/03 1030 98.1 62 20 140/62 96 Room Air 04/03 0800 Room Air 04/03 0457 136/68 04/02 2343 99.0 65 18 98/54 94 04/02 2140 Room Air 04/02 1922 Room Air 04/02 1654 97.7 78 20 145/74 96 Room Air Intake & Output 04/03 1600 04/03 0804/03 0000 04/02 1600 04/02 0800 04/02 0000 Intake Total Output Total 200 Balance -200 Output, Urine 200 Patient 143 lb 149 lb Weight Weight Chair scale Reported by Patient Measurement Method Physical Exam: Well-developed, overweight elderly female in no acute distress with nasal oxygen in place. Vital signs: See above. HEENT: Normocephalic, atraumatic, EOMI, slightly dry mucous membranes.: No JVD, no bruits. Lungs: Decreased breath sounds bilaterally at the bases. Heart: S1, S2 with no murmur, gallop, or rub appreciated. The OR fifth ICS at [facility]. Abdomen: Soft, nontender, positive bowel sounds. Extremities: Positive edema. Labs/Rubin Results: Laboratory Tests 04/03 04/03 04/03 04/03 1025 0658 0549 0030 Chemistry Sodium (137 - 145 mmol/L) 140 Potassium (3.5 - 5.1 mmol/L) 3.9 Chloride (98 - 107 mmol/L) 111 H Carbon Dioxide (22 - 30 mmol/L) 22 Anion Gap (5 - 16) 7 BUN (7 - 17 mg/dL) 39 H Creatinine (0.5 - 1.0 mg/dL) 1.2 H Estimated GFR (>60 ml/min) 44 L BUN/Creatinine Ratio (7 - 25 %) 32.5 H Troponin I (< 0.11 ng/ml) 0.48 *H 0.43 *H Coagulation PT (9.4 - 12.5 SEC) 11.9 INR (0.90 - 1.19) 1.13 APTT (25 - 37 SEC) 35 Other Body Source Fluid WBC Cancelled Fld Total RBCs Counted Cancelled 04/02 1725 Chemistry Sodium (137 - 145 mmol/L) 140 Potassium (3.5 - 5.1 mmol/L) 4.9 Chloride (98 - 107 mmol/L) 111 H Carbon Dioxide (22 - 30 mmol/L) 21 L Anion Gap (5 - 16) 9 BUN (7 - 17 mg/dL) 39 H Creatinine (0.5 - 1.0 mg/dL) 1.3 H Estimated GFR (>60 ml/min) 40 L BUN/Creatinine Ratio (7 - 25 %) 30.0 H Glucose (65 - 99 mg/dL) 100 H Calcium (8.4 - 10.2 mg/dL) 9.4 Magnesium (1.6 - 2.3 mg/dL) 1.8 Iron (37 - 170 ug/dL) 34 L TIBC (265 - 497 ug/dL) 233 L Ferritin (11.1 - 264 ng/mL) 60.2 Total Bilirubin (0.2 - 1.3 mg/dL) < 0.1 L AST (14 - 36 U/L) 18 ALT (9 - 52 U/L) 33 Alkaline Phosphatase (<127 U/L) 58 Troponin I (< 0.11 ng/ml) 0.39 *H [id number] Pept (<125 pg/mL) 8090 H Total Protein (6.3 - 8.2 g/dL) 4.7 L Albumin (3.5 - 5.0 g/dL) 2.4 L Globulin (1.9 - 4.2 gm/dL) 2.3 Albumin/Globulin Ratio (1.1 - 2.2 %) 1.0 L Vitamin B12 (239 - 931 pg/mL) 466 Folate (2.76 - 20.0 ng/mL) 7.1 Coagulation PT (9.4 - 12.5 SEC) 12.5 INR (0.90 - 1.19) 1.19 APTT (25 - 37 SEC) 27 Hematology CBC w Diff NO MAN DIFF REQ WBC (4.8 - 10.8 /CUMM) 7.0 RBC (4.20 - 5.40 /CUMM) 3.15 L Hgb (12.0 - 16.0 G/DL) 8.8 L Hct (37 - 47 %) 27.1 L MCV (81.0 - 99.0 FL) 85.9 MCH (27.0 - 31.0 PG) 27.9 RDW (11.5 - 14.5 %) 18.9 H Plt Count (130 - 400 /CUMM) 236 MPV (7.4 - 10.4 FL) 8.6 Gran % (42.2 - 75.2 %) 81.9 H Lymphocytes % (20.5 - 51.1 %) 14.0 L Monocytes % (1.7 - 9.3 %) 3.6 Eosinophils % (0 - 5 %) 0.1 Basophils % (0.0 - 2.0 %) 0.4 Absolute Granulocytes (1.4 - 6.5 /CUMM) 5.8 Absolute Lymphocytes (1.2 - 3.4 /CUMM) 1.0 L Absolute Monocytes (0.10 - 0.60 /CUMM) 0.3 Absolute Eosinophils (0.0 - 0.7 /CUMM) 0 Absolute Basophils (0.0 - 0.2 /CUMM) 0 PUBS MCHC (33.0 - 37.0 G/DL) 32.4 L Diagnostic Data EKG Results 04/03/2017: Sinus rhythm and abnormal nondiagnostic ST-T wave abnormalities. CXR Results 03/31/2017: Stable cardiomegaly with moderate bilateral pleural effusions with associated airspace disease. Other Results Chest CT without IV contrast 04/02/2017: Right greater than left bilateral pleural effusions with associated airspace disease. Moderate sized hiatal hernia. Cholelithiasis without evidence of cholecystitis. Assessment/Plan Assessment/Plan [id number] w/ hx anxiety/depression, RA on steroid Rx, previous DVT on Eliquis ( apixaban), obesity, TACO on CPAP, chronic anemia, HTN, , LVH, & diastolic dysfunction, who presented to the ED on our recommendation after her visiting nurse contacted our office to relate symptoms of progressive SOB & weight gain w / CXR findings of cardiomegaly, moderate bilateral pleural effusions, and associated airspace disease. Based on her history is suspect that her presentation is most consistent with acute on chronic diastolic heart failure (HFpEF). Suspect that the modest troponin I elevation is on the basis of type II myocardial infarction and not an acute coronary syndrome. Recommendations: * Continue with telemetry admission, follow-up troponins, repeat ECG. * Strict inputs/outputs and daily weights. * Diuresis with IV furosemide 40 mg daily and reassess the need for further IV diuresis in the a.m. * Repeat CXR following a good diuresis. * Follow-up BUN/creatinine, potassium, magnesium, etc. closely and replete as necessary. * Echocardiogram to reassess left ventricular systolic/diastolic function, right ventricular function, degree of aortic stenosis, estimated PA pressure, etc. * Check free T4, TSH, glycosylated hemoglobin A1c, etc. * DVT prophylaxis being addressed by apixaban. Consult Acknowledgment - Thank you for your consult request.
[2017-04-03 10:30] VITALS: BP 140/62
[2017-04-03 11:49] LABS: PTT 35 SEC (25-37)
--- NOTE | 2017-04-03 11:51 | PN- Housestaff ---
See Addendum Thom CURTIS,Jojo 04/03/17 1151: Subjective Follow-up For: Acute decompensated CHF NSTEMI History of DVT on Eliquis Complaints: pain scale (0-10) Subjective: On exam patient states that her lower legs are bothering her because of the Alps. She also notes that her right sided IV line hurts. She is on room air. She denies any chest pain, palpitations, shortness of breath. Patient was noted to have black stool in her colostomy bag Review of Systems Constitutional: Reports: weakness. Cardiovascular: Reports: no symptoms. Respiratory: Reports: no symptoms. Musculoskeletal: Reports: muscle pain, muscle stiffness. Objective Last 24 Hrs of Vital Signs/I&O Vital Signs Date Time Temp Pulse Resp B/P B/P Pulse O2 O2 Flow FiO2 Mean Ox Delivery Rate 04/03 1454 97.8 60 20 120/58 94 Room Air 04/03 1042 62 140/62 04/03 1042 62 140/62 04/03 1030 98.1 62 20 140/62 96 Room Air 04/03 0800 Room Air 04/03 0457 136/68 04/02 2343 99.0 65 18 98/54 94 04/02 2140 Room Air 04/02 1922 Room Air Intake & Output 04/03 1600 04/03 0800 04/03 0000 Intake Total 496 Output Total 1300 1500 Balance -804 -1500 Intake, IV 136 Intake, Oral 360 Output, Urine 1300 1500 Patient 143 lb 149 lb Weight Weight Chair scale Reported by Patient Measurement Method Physical Exam General Appearance: Alert, Oriented X3, Cooperative, No Acute Distress Skin: No Rashes Skin Temp/Moisture Exam: Warm/Dry Cardiovascular: Regular Rate, Normal S1, Normal S2, No Murmurs Lungs: RIGHT-SIDED RHONCHI Abdomen: LEFT COLOSTOMY BAG Extremities: No Clubbing, No Cyanosis, Normal Pulses, LOWER LEG EDEMA Current Medications: Current Medications Sig/Rick Start time Last Medication Dose Route Stop Time Status Admin Acetaminophen 650 MG Q4P PRN 04/03 1200 AC PO Apixaban 2.5 MG BID 04/02 2215 DC PO Aspirin 325 MG .STK-MED ONE 04/03 1221 DC PO 04/03 1222 Aspirin 81 MG DAILY 04/03 1000 AC 04/03 PO 1042 Aspirin 325 MG ONCE ONE 04/03 0300 DC 04/03 PO 04/03 0301 0440 Atorvastatin Calcium 20 MG ONCE ONE 04/03 0300 DC 04/03 PO 04/03 0301 0440 Carvedilol 12.5 MG BID 04/03 1000 DC PO Carvedilol 25 MG BID 04/03 1000 AC 04/03 PO 1042 Clopidogrel Bisulfate 150 MG ONCE ONE 04/03 0315 CAN PO 04/03 0316 Ferrous Gluconate 325 MG DAILY 04/03 1000 AC 04/03 PO 1042 Furosemide 40 MG DAILY 04/03 1000 AC 04/03 IV 1042 Furosemide 40 MG 7:30 AM, & 4:30 PM 04/03 0730 DC IV Furosemide 0 .STK-MED ONE 04/02 1935 DC IV Furosemide 40 MG ONCE ONE 04/02 1914 DC 04/02 IV 04/02 Heparin Sodium 3,894 UNIT ONCE ONE 04/03 1300 DC 04/03 (Porcine) IV 04/03 1301 1320 Heparin Sodium 25,000 UNIT Q24H 04/03 0315 AC 04/03 (Porcine) IV 1300 Sodium Chloride 500 ML Heparin Sodium 5,000 UNIT Q8 04/02 220 DC (Porcine) SC Hydromorphone HCl 2 MG QPM PRN 04/03 0257 AC PO Hydromorphone HCl 1 MG QPM PRN 04/02 2215 DC PO Hydroxychloroquine 200 MG BID 04/02 2201 AC 04/03 Sulfate PO 1042 Levothyroxine Sodium 0.025 MG DAILY AC 04/03 0700 AC 04/03 PO 0609 Lisinopril 10 MG DAILY 04/03 1000 AC 04/03 PO 1042 Omeprazole 40 MG DAILY AC 04/03 0700 AC 04/03 PO 0609 Prednisone 10 MG DAILY 04/03 1000 AC 04/03 PO 1042 Last 24 Hrs of Lab/Rubin Results Last 24 Hrs of Labs/Mics: Laboratory Tests 04/03/17 1330: Troponin I 0.51 *H, TSH 1.180, Free T4 1.28 04/03/17 1025: APTT 35 04/03/17 0658: Anion Gap 7, Estimated GFR 44 L, BUN/Creatinine Ratio 32.5 H, Troponin I 0.48 *H, PT 11.9, INR 1.13 04/03/17 0549: Fluid WBC Cancelled, Fld Total RBCs Counted Cancelled 04/03/17 0030: Troponin I 0.43 *H 04/02/171999: Urine Color STRAW, Urine Clarity HAZY H, Urine pH 6.0, Ur Specific [place] 1.025, Urine Protein 100 H, Urine Ketones NEG, Urine Nitrite POS H, Urine Bilirubin NEG, Urine Urobilinogen 0.2, Ur Leukocyte Esterase SMALL H, Ur Microscopic SEDIMENT EXAMINED, Urine RBC 5-10 H, Urine WBC 5-10 H, Ur Epithelial Cells FEW, Urine Bacteria MANY H, Granular Casts RARE H, Urine Hemoglobin MOD H, Urine Glucose NEG Microbiology 04/02 1999 URINE ROUT: Urine Culture - RES GRAM NEGATIVE RODS Assessment/Plan Assessment: Patient is a 76-year-old female with significant past medical history of diastolic dysfunction, hypertension, anemia, anxiety presenting this admission with dyspnea on exertion, extensive edema, bilateral pleural effusions and elevated troponins with EKG changes in the inferior and lateral leads (T-wave inversion) and anemia. Chest x-ray showed Stable cardiomegaly with moderate bilateral pleural effusions with associated airspace disease. CT showed moderate pleural effusions more on the right side. She has history of pleural effusion the past. Patient was admitted to the telemetry floor for management of followin. Decompensated diastolic heart failure. As patient has extensive bilateral pleural effusions seen on x-ray, thoracentesis is planned for tomorrow. Patient last had Eliquis yesterday so awaiting time of 48 hours is necessary. Will speak with interventional radiology in the morning to determine if radiologist is comfortable with this time period. Patient is on heparin for anticoagulation instead. According to hvac journeyman, we will attempt to aggressively diurese the patient and then repeat a chest x-ray in the morning before committing to thoracentesis. Repeat echocardiogram Thyroid function tesTS As per Dr. Zavala continue patient on IV Lasix 40 mg daily TSH and T4 Continue carvedilol 25 mg twice a day Nothing By mouth for possible thoracentesis in the a.m. INR is 1.13 (requested by interventional radiology before thoracentesis) 2. Atypical chest pain with elevated troponin and EKG changes showing evolving T-wave inversions. Most recently troponin increased to 0.51. EKG remains the same. Overnight telemetry showed normal sinus rhythm 55-62 Trend troponins and EKG Cardiology consult [place] stool Patient started on IV heparin Atorvastatin, aspirin 3. Anemia acute on chronic Continue iron supplement Iron levels him a B12, folate Stool guaiac 4. Lower leg pain Patient is asking for Alps to be removed as she has pain Patient is on heparin we will DC Alps 5. Black stool in colostomy bag Likely due to iron supplements 6. Generalized pain Patient notes that she has generalized pain that she attributes to osteoarthritis Gave 650 mg Tylenol every 4 hours when necessary is DNR/DNI Problem List: 1. Chest pain, atypical 2. Pleural effusion 3. Chronic anemia 4. Elevated troponin 5. Chronic kidney disease 6. CHF exacerbation Pain Ratin Pain Location: LOWER LEGS AND GENERALIZED Pain Goal: Pain 4 or less Pain Plan: TYLENOL Tomorrow's Labs & Rationales: CBC BEP Miryam Luevano 04/03/17 1742: Attending MD Review Statement Attending Statement Attending MD Statement: examined this patient, discuss w/resident/PA/GRAPHIC MANAGER, agreed w/resident/PA/GRAPHIC MANAGER, reviewed EMR data (avail), discussed with nursing, discussed with case mgmt Attending Assessment/Plan: 76 yr old female with pmh of diastolic chf, dvt on eliquis since july of 2016, RA on prednisone, 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 Pt had mild bump in trop which is stable. Pt also complained of wt gain over the last few weeks for which she was given lasix at home by [facility] per cardiology recommendations. Pt was found to have b/l plerual effusion and was admitted for above symptoms and pleural effusion. CT scan shows b/l pleural effusion with rt side greater than left. Acute chf diastolic exac- cont on lasix 40mg iv daily and cardiology following the pt closely with us. F/u on serial trop. f/u on echo results . Type 2 MS- secondary to chf. monitor on tele and monitor trops. EKG shows inferolateral t wave inversions. will d/w cardiology. Repeat EKG in am. Pleural effusion b/l- will repeat cxr in am. if not improving with diuresis consider getting thoracentesis. cont on heparin drip for now as we have held the eliquis in case she needs thoracentesis. d/w pt the care plan. pt has prior h/o smoking and quit 30 years ago. smoked 1PPD for about 20-30 years.
--- NOTE | 2017-04-03 11:54 | Cons- Pulmonary ---
General Information and HPI Consulting Request Date of Consult: 04/03/17 Requested By: Dr. Luevano Reason for Consult: pleural effusions Source of Information: patient Exam Limitations: no limitations History of Present Illness: Consultation for pleural effusions. 76-year-old woman. Hx of diastolic cardiac dysfunction, hypertension, history of DVT currently on Eliquis, anemia, obstructive sleep apnea declining consistent CPAP use, anxiety, depression, rheumatoid arthritis on prednisone, diverticulosis, hemorrhoids presents this admission with chief complaint of dyspnea on exertion, sent in by Dr. Zavala. Elevated BNP, elevated troponins. CT Right greater than left bilateral pleural effusions with associated airspace disease. Moderate sized hiatal hernia. Cholelithiasis without evidence of cholecystitis. She is on room air and she has leg edema however she is not in respiratory distress. No nausea no vomiting no diarrhea no constipation no chest pain no headache. Allergies/Medications Allergies: Coded Allergies: Penicillins (SWELLING, RASH, ITCH 04/02/17) aspirin (RASH 04/02/17) cephalexin (From KEFLEX) (ITCHY 04/02/17) codeine (ITCH 04/02/17) levofloxacin (From LEVAQUIN) (RASH 04/02/17) oxaprozin (From DAYPRO) (RASH 04/02/17) propoxyphene (UNKNOWN REACTION TO DARVOCET 04/02/17) Home Med List: Apixaban (Eliquis) 2.5 MG TABLET 1 TAB PO BID BLOOD THINNER (Reported) Calcium Carbonate/Vitamin D3 (Os-Mehdi 500+D3 Caplet) 500 MG-200 TABLET 1 TAB PO DAILY SUPPLEMENT (Reported) Carvedilol 25 MG TABLET 1 TAB PO BID HEART/BP (Reported) Ergocalciferol (Vitamin D2) (Vitamin D2) 50,000 UNIT CAPSULE 1 CAP PO QWED SUPPLEMENT (Reported) Ferrous Sulfate 325 MG (65 MG IRON) TABLET 1 TAB PO QAM SUPPLEMENT (Reported) Hydromorphone HCl 2 MG TABLET 1-2 TAB PO QHS PRN PAIN (Reported) Hydroxychloroquine Sulfate 200 MG TABLET 1 TAB PO BID RA (Reported) Levothyroxine Sodium 25 MCG TABLET 1 TAB PO DAILY AC THYROID (Reported) Lisinopril 10 MG TABLET 1 TAB PO QAM BP (Reported) Omeprazole 40 MG CAPSULE.DR 1 CAP PO QAM GI (Reported) Prednisone 10 MG TABLET 1 TAB PO QAM STEROID (Reported) Sertraline HCl 25 MG TABLET 1 TAB PO QAM MENTAL HEALTH (Reported) Current Medications: Current Medications Sig/Rick Start time Last Medication Dose Route Stop Time Status Admin Apixaban 2.5 MG BID 04/02 2214 DC PO Aspirin 81 MG DAILY 04/03 1000 AC 04/03 PO 1042 Aspirin 325 MG ONCE ONE 04/03 0300 DC 04/03 PO 04/03 0301 0440 Atorvastatin Calcium 20 MG ONCE ONE 04/03 0300 DC 04/03 PO 04/03 030 0440 Carvedilol 12.5 MG BID 04/03 1000 DC PO Carvedilol 25 MG BID 04/03 1000 AC 04/03 PO 1042 Clopidogrel Bisulfate 150 MG ONCE ONE 04/03 0315 CAN PO 04/03 0316 Ferrous Gluconate 325 MG DAILY 04/03 1000 AC 04/03 PO 1042 Furosemide 40 MG DAILY 04/03 1000 AC 04/03 IV 1042 Furosemide 40 MG 7:30 AM, & 4:30 PM 04/03 0730 DC IV Furosemide 0 .STK-MED ONE 04/02 1935 DC IV Furosemide 40 MG ONCE ONE 04/02 1914 DC 04/02 IV 04/02 1915 193 Heparin Sodium 25,000 UNIT Q24H 04/03 0315 AC 04/03 (Porcine) IV 0440 Sodium Chloride 500 ML Heparin Sodium 5,000 UNIT Q8 04/02 2199 DC (Porcine) SC Hydromorphone HCl 2 MG QPM PRN 04/03 0257 AC PO Hydromorphone HCl 1 MG QPM PRN 04/02 2214 DC PO Hydroxychloroquine 200 MG BID 04/02 2201 AC 04/03 Sulfate PO 1042 Levothyroxine Sodium 0.025 MG DAILY AC 04/03 0700 AC 04/03 PO 0609 Lisinopril 10 MG DAILY 04/03 1000 AC 04/03 PO 1042 Omeprazole 40 MG DAILY AC 04/03 0700 AC 04/03 PO 0609 Prednisone 10 MG DAILY 04/03 1000 AC 04/03 PO 1042 Review of Systems Comments 18 point review of systems was performed and reviewed. Please see pertinent positives and pertinent negatives in the HPI. Otherwise ROS is negative. Past History Travel History Traveled to [place] past 21 day No Medical History Blood Transfusion Hx: No Neurological: migraine EENT: cataracts Cardiovascular: CHF, hypertension, hyperlipidemia Respiratory: pneumonia, DYSPNEA Gastrointestinal: diverticulitis, HEMORRHOIDS BOWEL RESECTION COLOSTOMY Hepatic: NONE Renal: 3+PROTEIN IN URINE [id number] Musculoskeletal: rheumatoid arthritis Psychiatric: anxiety, depression, insomnia Endocrine: vitamin D deficiency Blood Disorders: anemia Cancer(s): NONE INTAKE MAN/Reproductive: NONE Surgical History Surgical History: colon resection, hysterectomy, laminectomy Family History Relations & Conditions If Any: Relation not specified for: *No pertinent family history Psychosocial History Where Do You Live? Home Services at Home: [facility] Primary Language: Iranian Smoking Status: Former Smoker Functional Ability Ambulation: cane IADLs Needs Assist: shopping, housework, food prep. Exam & Diagnostic Data Last 24 Hrs of Vital Signs/I&O Vital Signs Date Time Temp Pulse Resp B/P B/P Pulse O2 O2 Flow FiO2 Mean Ox Delivery Rate 04/03 1042 62 140/62 04/03 1042 62 140/62 04/03 1030 98.1 62 20 140/62 96 Room Air 04/03 0800 Room Air 04/03 0457 136/68 04/02 2343 99.0 65 18 98/54 94 04/02 2140 Room Air 04/02 1922 Room Air 04/02 1654 97.7 78 20 145/74 96 Room Air Intake & Output 04/03 1600 04/03 0800 04/03 0000 Intake Total Output Total 200 Balance -200 Output, Urine 200 Patient 143 lb 149 lb Weight Weight Chair scale Reported by Patient Measurement Method Physical Exam Other Physical Findings: Generally - Awake, alert and comfortable without distress Head and neck - normocephalic, atraumatic, EOMI grossly intact Cardiovascular - S1, S2 Lungs -diminished breath sounds at bilateral bases and right mid chest wall Abdomen - Bowel sounds positive, soft, non-tender Extremities -edematous Last 48 Hrs of Labs/Rubin: Laboratory Tests 04/03/17 1330: Troponin I Pending 04/03/17 1025: APTT 35 04/03/17 0658: Anion Gap 7, Estimated GFR 44 L, BUN/Creatinine Ratio 32.5 H, Troponin I 0.48 *H, PT 11.9, INR 1.13 04/03/17 0549: Fluid WBC Cancelled, Fld Total RBCs Counted Cancelled 04/03/17 0030: Troponin I 0.43 *H 04/02/17 1725: Anion Gap 9, Estimated GFR 40 L, BUN/Creatinine Ratio 30.0 H, Glucose 100 H, Calcium 9.4, Magnesium 1.8, Iron 34 L, TIBC 233 L, Ferritin 60.2, Total Bilirubin < 0.1 L, AST 18, ALT 33, Alkaline Phosphatase 58, Troponin I 0.39 *H, [place] Pept 8090 H, Total Protein 4.7 L, Albumin 2.4 L, Globulin 2.3, Albumin/Globulin Ratio 1.0 L, Vitamin B12 466, Folate 7.1, PT 12.5, INR 1.19, APTT 27, CBC w Diff NO MAN DIFF REQ, RBC 3.15 L, MCV 85.9, MCH 27.9, RDW 18.9 H, MPV 8.6, Gran % 81.9 H, Lymphocytes % 14.0 L, Monocytes % 3.6, Eosinophils % 0.1, Basophils % 0.4, Absolute Granulocytes 5.8, Absolute Lymphocytes 1.0 L, Absolute Monocytes 0.3, Absolute Eosinophils 0, Absolute Basophils 0, PUBS MCHC 32.4 L Assessment/Plan Impression/Plan: Consultation for pleural effusions. 76-year-old woman. Hx of diastolic cardiac dysfunction, hypertension, history of DVT currently on Eliquis, anemia, obstructive sleep apnea declining consistent CPAP use, anxiety, depression, rheumatoid arthritis on prednisone, diverticulosis, hemorrhoids presents this admission with chief complaint of dyspnea on exertion, sent in by Dr. Zavala. Elevated BNP, elevated troponins. CT Right greater than left bilateral pleural effusions with associated airspace disease. Moderate sized hiatal hernia. Cholelithiasis without evidence of cholecystitis. She is on room air and she has leg edema however she is not in respiratory distress. No nausea no vomiting no diarrhea no constipation no chest pain no headache. Impression 76 year old woman bilateral pleural effusions, elevated bnp, leg edema are all likely secondary to CHF exacerbation/fluid overload Plan -Eliquis held in anticipation of thoracentesis both diagnostic and therapeutic -diuresis, cardiology follow up -if improves significantly can repeat cxr and see if diuresis was sufficient for fluid removal if not the thoracentesis can be pursued once Eliquis has been adquately eliminated from her body DVT prophylaxis at all times Consult Acknowledgment - Thank you for your consult request.
[2017-04-03 14:54] VITALS: BP 120/58
[2017-04-03 21:32] LABS: PTT > 120 SEC (25-37)
[2017-04-03 23:51] VITALS: BP 120/60
[2017-04-04 05:11] LABS: ABSOLUTE BASOPHIL COUNT 0 /CUMM (0.0-0.2); ABSOLUTE EOSINOPHIL COUNT 0 /CUMM (0.0-0.7); ABSOLUTE GRANULOCYTE CT 5.6 /CUMM (1.4-6.5); ABSOLUTE LYMPH COUNT 1.8 /CUMM (1.2-3.4); ABSOLUTE MONOCYTE COUNT 0.5 /CUMM (0.10-0.60); BASOPHIL % 0.4 % (0.0-2.0); EOSINOPHIL % 0.5 % (0-5); GRANULOCYTE % 70.6 % (42.2-75.2); HEMATOCRIT 25.1 % (37-47); MEAN CORPUSCULAR HGB CONC 32.6 G/DL (33.0-37.0); MEAN PLATELET VOLUME 8.9 FL (7.4-10.4); PLATELET COUNT 195 /CUMM (130-400); RBC DISTRIBUTION WIDTH 19.5 % (11.5-14.5); RED BLOOD CELL CT 2.92 /CUMM (4.20-5.40); WHITE BLOOD CELL COUNT 7.9 /CUMM (4.8-10.8)
[2017-04-04 05:21] LABS: PTT 60 SEC (25-37)
[2017-04-04 05:54] VITALS: BP 120/80
--- NOTE | 2017-04-04 08:18 | ECHOCARDIOGRAM REPORT ---
RYAN CHRISTENSEN Age: 76 : 1940 Gender: F Exam Date: 04/03/2017 11:31 Exam Location: [facility] Ht (in): 56 Wt (lb): 120 BSA: 1.49 BP: 136 / 68 Ordering Physician: Korina Carrillo MD Referring Physician: Korina Carrillo MD Technologist: Babak Merida [facility] Room Number: 173-1 Indications: HEART FAILURE Rhythm: Sinus Technical Quality: good FINDINGS Left Ventricle Normal left ventricular size with mild left ventricular hypertrophy. Normal systolic function with no obvious regional wall motion abnormalities. Diastolic filling pattern is consistent with restrictive hemodynamics. The ejection fraction is visually estimated at 60%. Right Ventricle The right ventricle is normal in size and function. Right Atrium The right atrium is normal in size. Left Atrium The left atrium is moderately enlarged. The interatrial septum is intact. Mitral Valve The mitral valve is normal in structure and function. There is mild to moderate mitral regurgitation. Aortic Valve Structurally normal aortic valve without significant sclerosis or stenosis. There is moderate aortic regurgitation. Tricuspid Valve The tricuspid valve is normal in structure and function. There is mild tricuspid regurgitation. Pulmonary artery systolic pressure is normal. Pulmonic Valve Structurally normal pulmonic valve. There is trace pulmonic regurgitation. Pericardium Normal pericardium without effusion. No pleural effusion. Great Vessels Normal aortic root dimension. The aortic arch and great vessels are well seen and are normal. CONCLUSIONS 1. Normal EF of 60% with restrictive hemodynamics. 2. Mild left ventricular hypertrophy. 3. Moderate left atrial enlargement 4. Mild to moderate mitral regurgitation. 5. Mild tricuspid regurgitation. 6. Moderate aortic regurgitation. 7. Trace pulmonic regurgitation. Juan Ulrich M.D. (Electronically Signed) Final Date: 04 April 2017 08:18 MEASUREMENTS (Male / Female) Normal Values 2D ECHO LV Diastolic Diameter PLAX 3.7 cm 4.2 - 5.9 / 3.9 - 5.3 cm LV Systolic Diameter PLAX 2.5 cm 2.1 - 4.0 cm LV Fractional Shortening PLAX 32.4 % 25 - 46 % LV Ejection Fraction 2D Teich 61.6 % IVS Diastolic Thickness 1.2 cm LVPW Diastolic Thickness 1.3 cm LV Relative Wall Thickness 0.7 RV Internal Dim ED PLAX 2.7 cm 1.9 - 3.8 cm LVOT Diameter 1.7 cm Aortic Root Diameter 2.4 cm LA Systolic Diameter LX 3.5 cm 3.0 - 4.0 / 2.7 - 3.8 cm Ascending Aorta Diameter 2.8 cm DOPPLER AV Peak Velocity 187.0 cm/s AV Peak Gradient 14.0 mmHg AV Mean Velocity 120.0 cm/s AV Mean Gradient 7.0 mmHg AV Velocity Time Integral 38.9 cm AI Deceleration [place] 229.0 cm/s AI Peak Velocity 454.0 cm/s AI Pressure Half Time 580.0 ms AI Peak Gradient 82.4 mmHg LVOT Peak Velocity 110.0 cm/s LVOT Peak Gradient 4.8 mmHg LVOT Mean Velocity 66.1 cm/s LVOT Mean Gradient 2.0 mmHg LVOT Velocity Time Integral 24.4 cm LVOT Stroke Volume 55.4 cm AV Area Cont Eq vti 1.4 cm AV Area Cont Eq pk 1.3 cm MV Peak Velocity 122.0 cm/s MV Peak Gradient 6.0 mmHg MV Mean Velocity 64.9 cm/s MV Mean Gradient 2.0 mmHg Mitral E Point Velocity 119.0 cm/s Mitral A Point Velocity 43.9 cm/s Mitral E to A Ratio 2.7 MV PHT Velocity 132.0 cm/s MV Deceleration [place] 446.0 cm/s MV Pressure Half Time 88.8 ms MV Area PHT 2.5 cm MV Deceleration Time 215.0 ms TR Peak Velocity 517.0 cm/s TR Peak Gradient 106.9 mmHg Right Atrial Pressure 10.0 mmHg Pulmonary Artery Systolic Pressu 116.9 mmHg Right Ventricular Systolic Press 116.9 mmHg PV Peak Velocity 125.0 cm/s PV Peak Gradient 6.3 mmHg PV Mean Velocity 86.5 cm/s PV Mean Gradient 4.0 mmHg PV Velocity Time Integral 27.4 cm LV E' Lateral Velocity 7.9 cm/s Mitral E to LV E' Lateral Ratio 15.1 LV E' Septal Velocity 5.5 cm/s Mitral E to LV E' Septal Ratio 21.8
--- NOTE | 2017-04-04 11:32 | PN- Pulmonary ---
Subjective HPI/Critical Care Issues: pt seen and examined on room air dyspnea persists awaiting cxr this am Eliquis held Objective Current Medications: Current Medications Sig/Rick Start time Last Medication Dose Route Stop Time Status Admin Acetaminophen 650 MG Q4P PRN 04/03 1200 AC PO Aspirin 325 MG .STK-MED ONE 04/03 1221 DC PO 04/03 1222 Aspirin 81 MG DAILY 04/03 1000 AC 04/04 PO 0928 Carvedilol 25 MG BID 04/03 1000 AC 04/04 PO 0928 Ferrous Gluconate 325 MG DAILY 04/03 1000 AC 04/04 PO 0929 Furosemide 40 MG DAILY 04/03 1000 AC 04/04 IV 0927 Heparin Sodium 2,000 UNIT ONCE ONE 04/04 0615 DC 04/04 (Porcine) IV 04/04 06 0627 Heparin Sodium 5,000 UNIT .STK-MED ONE 04/03 1319 DC (Porcine) IV 04/03 1320 Heparin Sodium 3,894 UNIT ONCE ONE 04/03 1300 DC 04/03 (Porcine) IV 04/03 1301 1320 Heparin Sodium 25,000 UNIT Q24H 04/03 0315 AC 04/03 (Porcine) IV 1300 Sodium Chloride 500 ML Hydromorphone HCl 2 MG QPM PRN 04/03 0257 AC 04/03 PO 2110 Hydroxychloroquine 200 MG BID 04/02 220 AC 04/04 Sulfate PO 0928 Levothyroxine Sodium 0.025 MG DAILY AC 04/03 0700 AC 04/04 PO 0628 Lisinopril 10 MG DAILY 04/03 1000 AC 04/04 PO 0927 Omeprazole 40 MG DAILY AC 04/03 0700 AC 04/04 PO 0628 Prednisone 10 MG DAILY 04/03 1000 AC 04/04 PO 0929 Vital Signs & I&O Last 24 Hrs of Vitals and I&O: Vital Signs Date Time Temp Pulse Resp B/P B/P Pulse O2 O2 Flow FiO2 Mean Ox Delivery Rate 04/04 927 85 120/80 04/04 926 85 120/80 04/04 0554 98.1 85 20 120/80 95 04/03 2351 98.1 84 20 120/60 94 04/03 2111 62 146/76 04/03 1454 97.8 60 20 120/58 94 Room Air Intake & Output 04/04 1600 04/04 0800 04/04 0000 Intake Total 124.6 480 Output Total Balance 124.6 480 Intake, IV 124.6 Intake, Oral 0 480 Exam Other Physical Findings: Generally - Awake, alert and comfortable without distress Head and neck - normocephalic, atraumatic, EOMI grossly intact Cardiovascular - S1, S2 Lungs -diminished breath sounds at bilateral bases and right mid chest wall Abdomen - Bowel sounds positive, soft, non-tender Extremities -edematous Results Last 24 Hrs of Lab Results: Laboratory Tests 04/04/17 0630: Troponin I Cancelled 04/04/17 0430: Anion Gap 8, Estimated GFR 36 L, BUN/Creatinine Ratio 27.1 H, Magnesium 1.6, Troponin I 0.55 *H, APTT 60 H, CBC w Diff NO MAN DIFF REQ, RBC 2.92 L, MCV 86.0, MCH 28.0, RDW 19.5 H, MPV 8.9, Gran % 70.6, Lymphocytes % 22.6, Monocytes % 5.9, Eosinophils % 0.5, Basophils % 0.4, Absolute Granulocytes 5.6, Absolute Lymphocytes 1.8, Absolute Monocytes 0.5, Absolute Eosinophils 0, Absolute Basophils 0, PUBS MCHC 32.6 L 04/03/17 2300: Troponin I 0.48 *H 04/03/17 1900: APTT Cancelled 04/03/17 1840: APTT > 120 *H 04/03/17 1330: Troponin I 0.51 *H, TSH 1.180, Free T4 1.28 Impression/Plan Impression/Plan Impression/Plan: Impression 76 year old woman bilateral pleural effusions, elevated bnp, leg edema are all likely secondary to CHF exacerbation/fluid overload Plan -Eliquis held in anticipation of thoracentesis both diagnostic and therapeutic -CXR this am, if effusions are similar patient is amenable for a thoracentesis for relief -please ensure that IR is aware and ph, cytology, microbiology, cell count, LDH, t.protein, t.cholesterol are sent DVT prophylaxis at all times
--- NOTE | 2017-04-04 12:11 | RADIOLOGY REPORT ---
EXAMINATION: XR PORTABLE CHEST CLINICAL INFORMATION: Dyspnea. COMPARISON: Chest done on 03/31/2017. TECHNIQUE: Portable frontal view of the chest was obtained. FINDINGS: Moderate right and small left-sided pleural effusions are noted with evidence of nonspecific airspace disease at right mid to lower lung field and left lung base. When compared to prior study, the size of the right-sided pleural effusion has increased. The airspace disease also appears to have progressed bilaterally. The cardiomediastinal silhouette remains moderately enlarged. IMPRESSION: Moderate right and small left-sided pleural effusions with nonspecific airspace disease at right mid to lower lung field and left lung base. When compared to prior study, there is interval progression of disease noted since 03/31/2017.
--- NOTE | 2017-04-04 12:59 | PN- Att Addend ---
Attending MD Review Statement Attending Statement Attending MD Statement: examined this patient, discuss w/resident/PA/DIGITAL SALES MANAGER, agreed w/resident/PA/DIGITAL SALES MANAGER, reviewed EMR data (avail), discussed w/nursing, discussed w/ case mgmt Attending Assessment/Plan: Laboratory Tests 04/04/17 1200: Troponin I Cancelled 04/04/17 0630: Troponin I Cancelled 04/04/17 0430: Anion Gap 8, Estimated GFR 36 L, BUN/Creatinine Ratio 27.1 H, Magnesium 1.6, Lactate Dehydrogenase 467, Troponin I 0.55 *H, APTT 60 H, CBC w Diff NO MAN DIFF REQ, RBC 2.92 L, MCV 86.0, MCH 28.0, RDW 19.5 H, MPV 8.9, Gran % 70.6, Lymphocytes % 22.6, Monocytes % 5.9, Eosinophils % 0.5, Basophils % 0.4, Absolute Granulocytes 5.6, Absolute Lymphocytes 1.8, Absolute Monocytes 0.5, Absolute Eosinophils 0, Absolute Basophils 0, PUBS MCHC 32.6 L 04/03/17 2300: Troponin I 0.48 *H 04/03/17 1900: APTT Cancelled 04/03/17 1840: APTT > 120 *H 04/03/17 1330: Troponin I 0.51 *H, TSH 1.180, Free T4 1.28 Vital Signs Date Time Temp Pulse Resp B/P B/P Pulse O2 O2 Flow FiO2 Mean Ox Delivery Rate 04/04 0928 85 120/80 04/04 0927 85 120/80 04/04 0900 Room Air 04/04 0554 98.1 85 20 120/80 95 04/03 2351 98.1 84 20 120/60 94 04/03 2112 62 146/76 04/03 1454 97.8 60 20 120/58 94 Room Air 76 yr old female with pmh of diastolic chf, dvt on eliquis since july of 2016, RA on prednisone, 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 Pt had mild bump in trop which is stable. Pt also complained of wt gain over the last few weeks for which she was given lasix at home by [facility] per cardiology recommendations. Pt was found to have b/l plerual effusion and was admitted for above symptoms and pleural effusion. CT scan shows b/l pleural effusion with rt side greater than left. Acute chf diastolic exac- cont on lasix 40mg iv daily and cardiology following the pt closely with us. F/u on serial trop reveals stabel torponins, will stop checking them. f/u on echo results reveals normal EF but restrictive diastolic dysfunction. EKG done today on 04/04 show no new changes compared with EKG done this admission. Type 2 AK- secondary to chf. monitor on tele and monitor trops. EKG shows inferolateral t wave inversions. will d/w cardiology. trop stable. will stop checking them. Pleural effusion b/l- repeat cxr reviewed. d/w pulmonary. pt going for thoracentesis this afternoon . will hold heparin for that and will resume it later as per IR recommendations. DVT- cont on heparin drip for now as we have held the eliquis in case she needs thoracentesis. Holding heparin for thoracentesis. Urine culture growing - GNR- will f/u on culture results. pt did not complain of urinary symptoms. Colostomy site examined looks ok. RA- cont on home prednisone dose Hypothyroidism- TSH wnl- cont home dose of levothyroxine. pt has prior h/o smoking and quit 30 years ago. smoked 1PPD for about 20-30 years.
--- NOTE | 2017-04-04 13:19 | PN- Cardiology ---
Subjective Subjective: Feels about the same, despite a good diuresis and right thoracentesis. Objective Vital Signs and I&Os Vital Signs Date Time Temp Pulse Resp B/P B/P Pulse O2 O2 Flow FiO2 Mean Ox Delivery Rate 04/04 927 85 120/80 04/04 926 85 120/80 04/04 09 Room Air 04/04 0554 98.1 85 20 120/80 95 04/03 2351 98.1 84 20 120/60 94 04/03 2112 62 146/76 04/03 1454 97.8 60 20 120/58 94 Room Air Intake & Output 04/04 1600 04/04 0800 04/04 0000 04/03 1600 04/03 0800 04/03 0000 Intake Total 124.6 480 496 Output Total 550 1300 1500 Balance -550 124.6 480 -804 -1500 Intake, IV 124.6 136 Intake, Oral 0 480 360 Output, Urine 550 1300 1500 Patient 143 lb 149 lb Weight Weight Chair scale Reported by Patient Measurement Method Physical Exam: Well-developed, obese elderly white female in no acute distress with oxygen in place. Vital signs: See above. HEENT: Normocephalic, atraumatic, EOMI, slightly dry mucous membranes. Neck: No JVD, no bruits. Lungs: Decreased breath sounds bilaterally with bibasilar crackles. Heart: S1, S2. No murmur gallop or rub appreciated. PMI not well felt. Abdomen: Soft, mild tenderness to palpation,, positive bowel sounds. Extremities: No edema. Current Medications: Current Medications Sig/Rcik Start time Last Medication Dose Route Stop Time Status Admin Acetaminophen 650 MG Q4P PRN 04/03 1200 AC PO Aspirin 81 MG DAILY 04/03 1000 AC 04/04 PO 0928 Carvedilol 25 MG BID 04/03 1000 AC 04/04 PO 0928 Ferrous Gluconate 325 MG DAILY 04/03 1000 AC 04/04 PO 09 Furosemide 40 MG DAILY 04/03 1000 AC 04/04 IV 09 Heparin Sodium 2,000 UNIT ONCE ONE 04/04 0615 DC 04/04 (Porcine) IV 04/04 Heparin Sodium 5,000 UNIT .STK-MED ONE 04/03 1319 DC (Porcine) IV 04/03 1320 Heparin Sodium 25,000 UNIT Q24H 04/03 0315 DC 04/03 (Porcine) IV 1300 Sodium Chloride 500 ML Hydromorphone HCl 2 MG QPM PRN 04/03 0257 AC 04/03 PO 211 Hydroxychloroquine 200 MG BID 04/02 2201 AC 04/04 Sulfate PO 09 Levothyroxine Sodium 0.025 MG DAILY AC 04/03 0700 AC 04/04 PO 06 Lisinopril 10 MG DAILY 04/03 1000 AC 04/04 PO 09 Omeprazole 40 MG DAILY AC 04/03 07 AC 04/04 PO 06 Prednisone 10 MG DAILY 04/03 1000 AC 04/04 PO 09 Results Last 48 Hrs of Labs/Mics: Laboratory Tests 04/04/17 1200: Troponin I Cancelled 04/04/17 0630: Troponin I Cancelled 04/04/17 0430: Anion Gap 8, Estimated GFR 36 L, BUN/Creatinine Ratio 27.1 H, Magnesium 1.6, Lactate Dehydrogenase 467, Troponin I 0.55 *H, APTT 60 H, CBC w Diff NO MAN DIFF REQ, RBC 2.92 L, MCV 86.0, MCH 28.0, RDW 19.5 H, MPV 8.9, Gran % 70.6, Lymphocytes % 22.6, Monocytes % 5.9, Eosinophils % 0.5, Basophils % 0.4, Absolute Granulocytes 5.6, Absolute Lymphocytes 1.8, Absolute Monocytes 0.5, Absolute Eosinophils 0, Absolute Basophils 0, PUBS MCHC 32.6 L 04/03/17 2300: Troponin I 0.48 *H 04/03/17 1900: APTT Cancelled 04/03/17 1840: APTT > 120 *H 04/03/17 1330: Troponin I 0.51 *H, TSH 1.180, Free T4 1.28 04/03/17 1025: APTT 35 04/03/17 0658: Anion Gap 7, Estimated GFR 44 L, BUN/Creatinine Ratio 32.5 H, Troponin I 0.48 *H, PT 11.9, INR 1.13 04/03/17 0549: Fluid WBC Cancelled, Fld Total RBCs Counted Cancelled 04/03/17 0549: Fluid Cholesterol Cancelled 04/03/17 0030: Troponin I 0.43 *H 04/02/17 2000: Urine Color STRAW, Urine Clarity HAZY H, Urine pH 6.0, Ur Specific [place] 1.025, Urine Protein 100 H, Urine Ketones NEG, Urine Nitrite POS H, Urine Bilirubin NEG, Urine Urobilinogen 0.2, Ur Leukocyte Esterase SMALL H, Ur Microscopic SEDIMENT EXAMINED, Urine RBC 5-10 H, Urine WBC 5-10 H, Ur Epithelial Cells FEW, Urine Bacteria MANY H, Granular Casts RARE H, Urine Hemoglobin MOD H, Urine Glucose NEG 04/02/17 1725: Anion Gap 9, Estimated GFR 40 L, BUN/Creatinine Ratio 30.0 H, Glucose 100 H, Hemoglobin A1c 5.5, Calcium 9.4, Magnesium 1.8, Iron 34 L, TIBC 233 L, Ferritin 60.2, Total Bilirubin < 0.1 L, AST 18, ALT 33, Alkaline Phosphatase 58 , Troponin I 0.39 *H, Dfa-Z-Pepqjlbhhhx Pept 8090 H, Total Protein 4.7 L, Albumin 2.4 L, Globulin 2.3, Albumin/Globulin Ratio 1.0 L, Vitamin B12 466, Folate 7.1, PT 12.5, INR 1.19, APTT 27, CBC w Diff NO MAN DIFF REQ, RBC 3.15 L, MCV 85.9, MCH 27.9, RDW 18.9 H, MPV 8.6, Gran % 81.9 H, Lymphocytes % 14.0 L, Monocytes % 3.6, Eosinophils % 0.1, Basophils % 0.4, Absolute Granulocytes 5.8, Absolute Lymphocytes 1.0 L, Absolute Monocytes 0.3, Absolute Eosinophils 0, Absolute Basophils 0, PUBS MCHC 32.4 L Recent Imaging Studies: CXR 04/04/2017: Moderate right and small left-sided pleural effusions with nonspecific airspace disease at right mid to lower lung field and left lung base. When compared to prior study, there is interval progression of disease noted since 03/31/2017. Echocardiogram 04/02/2017: 1. Normal EF of 60% with restrictive hemodynamics. 2. Mild left ventricular hypertrophy. 3. Moderate left atrial enlargement 4. Mild to moderate mitral regurgitation. 5. Mild tricuspid regurgitation. 6. Moderate aortic regurgitation. 7. Trace pulmonic regurgitation. Assessment/Plan Assessment/Plan [id number] w/ hx anxiety/depression, RA on steroid Rx, previous DVT on Eliquis ( apixaban), obesity, TACO on CPAP, chronic anemia, HTN, , LVH, & diastolic dysfunction, who presented to the ED on our recommendation after her visiting nurse contacted our office to relate symptoms of progressive SOB & weight gain w / CXR findings of cardiomegaly, moderate bilateral pleural effusions, and associated airspace disease. Based on her history is suspect that her presentation is most consistent with acute on chronic diastolic heart failure (HFpEF). Suspect that the modest troponin I elevation is on the basis of type II myocardial infarction and not an acute coronary syndrome. Recommendations: * Continue on telemetry. * Reassess the need for further IV diuresis in the a.m. * Follow-up CXR. * Follow-up H/H. * Replete potassium and magnesium. * DVT prophylaxis. Continue telemetry? Yes
--- NOTE | 2017-04-04 14:31 | PN- Housestaff ---
Subjective Follow-up For: Acute decompensated CHF NSTEMI History of DVT on Eliquis Review of Systems Constitutional: Reports: no symptoms. Objective Last 24 Hrs of Vital Signs/I&O Vital Signs Date Time Temp Pulse Resp B/P B/P Pulse O2 O2 Flow FiO2 Mean Ox Delivery Rate 04/04 2012 66 122/62 04/04 1748 Room Air 04/04 1432 98.0 64 20 136/70 92 Room Air 04/04 0928 85 120/80 04/04 0927 85 120/80 04/04 0900 Room Air 04/04 0554 98.1 85 20 120/80 95 04/03 2351 98.1 84 20 120/60 94 Intake & Output 04/04 1600 04/04 0800 04/04 0000 Intake Total 0 124.6 480 Output Total 1300 Balance -1300 124.6 480 Intake, IV 124.6 Intake, Oral 0 0 480 Output, Stool 200 Output, Urine 1100 Physical Exam General Appearance: Alert, Oriented X3, Cooperative, No Acute Distress Assessment/Plan Assessment: Patient is a 76-year-old female with significant past medical history of diastolic dysfunction, hypertension, anemia, anxiety presenting this admission with dyspnea on exertion, extensive edema, bilateral pleural effusions and elevated troponins with EKG changes in the inferior and lateral leads (T-wave inversion) and anemia. Chest x-ray showed Stable cardiomegaly with moderate bilateral pleural effusions with associated airspace disease. CT showed moderate pleural effusions more on the right side. She has history of pleural effusion the past. Patient was admitted to the telemetry floor for management of followin. Decompensated diastolic heart failure. As patient has extensive bilateral pleural effusions seen on x-ray, thoracentesis is planned for tomorrow. Patient last had Eliquis yesterday so awaiting time of 48 hours is necessary. Will speak with interventional radiology in the morning to determine if radiologist is comfortable with this time period. Patient is on heparin for anticoagulation instead. According to dyed yarn operator, we will attempt to aggressively diurese the patient and then repeat a chest x-ray in the morning before committing to thoracentesis. no new echo changes seen As per Dr. Zavala continue patient on IV Lasix 40 mg daily Continue carvedilol 25 mg twice a day thoracentesis today of right side> left start eliquis next day after return from IR INR is 1.13 (requested by interventional radiology before thoracentesis) 2. Atypical chest pain with elevated troponin and EKG changes showing evolving T-wave inversions. Most recently troponin levelled off. EKG remains the same. Overnight telemetry showed normal sinus rhythm 58-63 Trend troponins and EKG Cardiology consult appreciated [place] stool was negative Patient started on IV heparin Atorvastatin, aspirin 3. Anemia acute on chronic Continue iron supplement Iron levels him a B12, folate Stool guaiac 4. Lower leg pain Patient is asking for Alps to be removed as she has pain Patient is on heparin we will DC Alps 5. Black stool in colostomy bag Likely due to iron supplements guaic negatvie 6. Generalized pain Patient notes that she has generalized pain that she attributes to osteoarthritis Gave 650 mg Tylenol every 4 hours when necessary 7. urine cultures unclear why done but are postivie gnr no symptoms so will not treat pt is DNR/DNI Problem List: 1. Pleural effusion 2. Chronic anemia Pain Ratin Pain Location: generalized Pain Goal: Remain pain free Pain Plan: tylenol and dilaudid Tomorrow's Labs & Rationales: cbc bep
[2017-04-04 14:32] VITALS: BP 136/70
--- NOTE | 2017-04-04 18:05 | ULTRASOUND REPORT ---
PROCEDURE: Thoracentesis CLINICAL INFORMATION: 76-year-old female with bilateral pleural effusions, right larger than left. Thoracentesis requested. COMPARISON: Chest CT 04/02/2017 and same day chest x-ray TECHNIQUE: Indirect ultrasound guided thoracentesis using a 5 Maltese Yueh catheter. FINDINGS: Informed consent was obtained from the patient prior to the procedure. During this process, the procedure alternatives were explained, along with the intended outcome and benefits. The risks of the procedure, as well as the risk of not doing the procedure, was discussed. The patient was given the opportunity to ask questions regarding the procedure and appeared competent to make medical decisions. A signed consent form which documents this discussion was placed in the medical record. A timeout procedure was performed. Ultrasound evaluation of the chest for pleural fluid was performed. A large right-sided pleural effusion is present. A small left-sided pleural effusion is present. No safe window to tap left-sided pleural effusion. The decision was made to tap the right-sided pleural effusion. Using standard interventional and sterile techniques, lidocaine was used to anesthetize the region. A 5 Maltese Yueh catheter was introduced into the right pleural fluid using standard safety needle technique. Approximately 1060 mL of light yellow fluid was removed into the Vacutainer bottles. The catheter was then removed. Good hemostasis was achieved. The patient tolerated the procedure well. A sterile dressing was placed. The patient was discharged from the department in stable condition. Postprocedure x-ray demonstrated no pneumothorax. Fluid sent to laboratory for requested analysis. COMPLICATIONS: None. IMPRESSION: Successful ultrasound-guided right-sided thoracentesis yielding approximately 1 L of fluid.
--- NOTE | 2017-04-04 18:35 | Discharge Summary ---
Visit Information Visit Dates Admission Date: 04/02/17 Hospital Course Course Attending Physician: Bassem CURTIS,Miryam Hewitt Primary Care Physician: Tong CURTIS,[facility] Hospital Course: 76 yo F with h/o RA on plaquenil and prednisone, HTN, HLD, anxiety, possible diastolic CHF, TACO not on CPAP, CKD stage 3, chronic anemia, colonic perforation following a colonoscopy requiring Constance's procedure with hospital course c/b oliguric ATN and demand ischemia (Oct 2014), re-admitted same month for hypoxia in the setting of pleural effusions at which point patient was transferred to [facility] per family request. Patient underwent thoracentesis at [place] but is not sure of the diagnosis. Subsequently, patient was admitted twice in the past year ( 2016) to [facility] for LLE DVT (July 2016) on Eliquis and later (Dec 2016) for pneumonia and pleural effusions (underwent thoracentesis). She is here now for evaluation of worsening dyspnea. Patient lives alone, has an aide and a visiting nurse, barely ambulates with a walker from her recliner to the commode. She needs assistance with ADL's. ---- Vitals stable. Exam: AAO, in mild distress due to duff catheter, MMM, Neck: JVD not appreciated, Chest reduced air entry R>L, Heart S1S2 regular, Abd soft, left colostomy bag+ with dark stool, LE: 3+ pitting pedal edema, difficult to assess peripheral pulses due to edema. Sacral decubitus stage 1 wound. Labs: H/H 8.8/27.1 (baseline H/H 9-11/28-33), bicarb 21, BUN 39, creat 1.3 ( baseline 1.0-1.4), trop 0.39, proBNP 8090. CXR: Stable cardiomegaly with mdoerate bilateral pleural effusions with associated airspace disease. Echo ( 2014): EF > 65%, stage 2 diastolic dysfunction. Initial EKG: sinus rhythm, J-point elevation in V2, T-wave flattening and inversions in I, II, aVL, V5-6 (new), Qtc 394. 2nd troponin 0.43 with EKG now showing diffuse TWI in inferior leads, V4-6. Assessment and plan: 1. Dyspnea at rest and on exertion 2. Bilateral lower extremity edema 3. Acute on chronic heart failure, probably diastolic CHF 4. Bilateral pleural effusions (R>L) 5. Acute on chronic normocytic anemia 6. Hypoalbuminemia 7. Elevated troponin with EKG changes NSTEMI vs Type 2 VA Acute on chronic diastolic CHF Patient's lower extremity edema has worsened over past 2 weeks, visiting nurse discussed with Dr. Zavaal who advised lasix 40 mg for 3 days. However, despite the lasix, the edema did not improve. patient was extremely short of breath while seated in her recliner. Patient reports a h/o CHF and was on lasix in the past but most recently this was discontinued after her recent hospitalization at [facility] (Dec 2016). She was admitted to telemetry floor for management of acute CHF and elevated troponins. She was continued on 40 mg IV Lasix daily. Ins and outs were monitored. Daily weights were monitored. Laborer P[employer] Dr. Zavala on board. Received extra doses of Lasix in the hospital as required. Echocardiogram was done which showed Normal left ventricular size with mild left ventricular hypertrophy. Normal systolic function with no obvious regional wall motion abnormalities. Diastolic filling pattern is consistent with restrictive hemodynamics. The ejection fraction is visually estimated at 60%. Type II VA she Was found to have elevated troponin at the time of admission with EKG changes. Initial EKG: sinus rhythm, J-point elevation in V2, T-wave flattening and inversions in I, II, aVL, V5-6 (new), Qtc 394. 2nd troponin 0.43 with EKG now showing diffuse TWI in inferior leads, V4-6. Repeat EKG showed diffuse T- wave inversions in inferolateral leads. Laborer [employer] on board. No acute intervention was recommended. Off note she was on IV heparin drip for 48 hours. Troponins trended down. She was continued on aspirin. Thyroid function tests were normal. Acute on chronic anemia H/H 8.8/27.1 (baseline H/H 9-11/28-33). Patient also reports that her stool in the colostomy has been darker in the past 1 week (while on iron supplements). Stool guaiac was negative. Hemoglobin remained stable throughout the hospital stay. Bilateral pleural effusions right greater than left Chest x-ray and CAT scan chest findings suggestive of bilateral pleural effusions. She has pleural effusion history in the past. Not sure of diagnosis. She underwent right-sided diagnostic and therapeutic thoracocentesis on 04/04/2017 and she is status post 1000 mL drainage. Based on lites criteria fluid analysis studies suggestive of transudative effusion. PH was 7.47. Gram stain and cultures were negative. Cytology showed................ Possible pneumonia/bronchitis Patient presented with worsening shortness of breath. Chest x-ray findings suggestive of bibasilar densities. No consolidation was seen. She remained afebrile with normal WBC count. However her sputum cultures were positive for Pseudomonas. She was initially given 1 day of ceftriaxone and later switched her to ciprofloxacin 500 by mouth daily for possible pneumonia and bronchitis. History of DVT on eliqus she Was admitted to [facility] in July 2016 and she was found to have DVT and she was discharged on eliqus. Eliqus was on hold for 48 hours for anticipated thoracocentesis. She was on IV heparin drip for 48 hours and later eliqus was resumed after thoracocentesis. Asymptomatic UTI She denied any urinary symptoms, frequency, urgency, dysuria. Urine analysis was normal. However urine cultures showed Escherichia coli. She remained afebrile with a normal WBC count. She was monitored off from antibiotics. Rheumatoid arthritis continued on prednisone and hydroxychloroquine Hypothyroidism continue home dose of levothyroxine Hypertension-continued carvedilol, lisinopril Anxiety-Ativan as needed obstructive sleep apnea not on CPAP CKD stage III DVT prophylaxis- eliqus heart healthy diet DNR/DNI Allergies: Coded Allergies: Penicillins (SWELLING, RASH, ITCH 04/02/17) aspirin (RASH 04/02/17) cephalexin (From KEFLEX) (ITCHY 04/02/17) codeine (ITCH 04/02/17) levofloxacin (From LEVAQUIN) (RASH 04/02/17) oxaprozin (From DAYPRO) (RASH 04/02/17) propoxyphene (UNKNOWN REACTION TO DARVOCET 04/02/17) Significant Procedures: PROCEDURE: Thoracentesis CLINICAL INFORMATION: 76-year-old female with bilateral pleural effusions, right larger than left. Thoracentesis requested. COMPARISON: Chest CT 04/02/2017 and same day chest x-ray TECHNIQUE: Indirect ultrasound guided thoracentesis using a 5 Swazi Yueh catheter. FINDINGS: Informed consent was obtained from the patient prior to the procedure. During this process, the procedure alternatives were explained, along with the intended outcome and benefits. The risks of the procedure, as well as the risk of not doing the procedure, was discussed. The patient was given the opportunity to ask questions regarding the procedure and appeared competent to make medical decisions. A signed consent form which documents this discussion was placed in the medical record. A timeout procedure was performed. Ultrasound evaluation of the chest for pleural fluid was performed. A large right-sided pleural effusion is present. A small left-sided pleural effusion is present. No safe window to tap left-sided pleural effusion. The decision was made to tap the right-sided pleural effusion. Using standard interventional and sterile techniques, lidocaine was used to anesthetize the region. A 5 Swazi Yueh catheter was introduced into the right pleural fluid using standard safety needle technique. Approximately 1060 mL of light yellow fluid was removed into the Vacutainer bottles. The catheter was then removed. Good hemostasis was achieved. The patient tolerated the procedure well. A sterile dressing was placed. The patient was discharged from the department in stable condition. Postprocedure x-ray demonstrated no pneumothorax. Fluid sent to laboratory for requested analysis. COMPLICATIONS: None. IMPRESSION: Successful ultrasound-guided right-sided thoracentesis yielding approximately 1 L of fluid. Pertinent Lab Results: CONCLUSIONS 1. Normal EF of 60% with restrictive hemodynamics. 2. Mild left ventricular hypertrophy. 3. Moderate left atrial enlargement 4. Mild to moderate mitral regurgitation. 5. Mild tricuspid regurgitation. 6. Moderate aortic regurgitation. 7. Trace pulmonic regurgitation. EXAM TYPE: CAT - CT CHEST WO IV CONTRAST EXAMINATION: CT CHEST WITHOUT CONTRAST CLINICAL INFORMATION: Follow-up pleural effusion. Pneumonia. COMPARISON: Multiple prior exams are reviewed. The most recent is from 03/31/2017. TECHNIQUE: Contiguous axial thin section helical images of the chest were performed without contrast. The data set was reformatted in the coronal and sagittal planes and reviewed on an independent workstation. DLP: 323 mGy-cm. FINDINGS: The heart is of normal size. There is no pericardial effusion. There is neither mediastinal, hilar nor axillary lymphadenopathy. There are no chest wall masses. Review of lung windows demonstrates a large right and a moderate left pleural effusion. There is associated passive atelectasis. There is also linear atelectasis within the inferior segment of the lingula. There are no demonstrable pulmonary parenchymal nodules. There is a moderate-sized hiatal hernia. Images of the upper abdomen demonstrate that the liver is of normal size and attenuation without focal lesions. Normal adrenal glands are identified. There are calculi within the gallbladder lumen. Bone windows: Neither sclerotic nor lytic bone lesions are identified. IMPRESSION: Right greater than left bilateral pleural effusions with associated airspace disease. Moderate sized hiatal hernia. Cholelithiasis without evidence of cholecystitis. Disposition Summary Disposition Principal Diagnosis: Acute on chronic CHF Bilateral pleural effusions Type II VA PNA/bronchitis Additional Diagnosis: Acute on chronic anemia Discharge Disposition: SNF Discharge Instructions General Discharge Information Code Status: Do Not Resucitate/Intubat Patient's Diet: As tolerated Patient's Activity: As tolerated Follow-Up Instructions/Appts: Follow-up with PCP in one week after discharge Follow-up with cake tester in 1 week after discharge. follow-up with molten iron pourer in 1 week after discharge
[2017-04-04 23:36] VITALS: BP 130/68
[2017-04-05 06:34] VITALS: BP 100/46
[2017-04-05 09:07] LABS: ABSOLUTE BASOPHIL COUNT 0 /CUMM (0.0-0.2); ABSOLUTE EOSINOPHIL COUNT 0 /CUMM (0.0-0.7); ABSOLUTE GRANULOCYTE CT 14.4 /CUMM (1.4-6.5); ABSOLUTE MONOCYTE COUNT 0.7 /CUMM (0.10-0.60); BASOPHIL % 0.2 % (0.0-2.0); EOSINOPHIL % 0.2 % (0-5); HEMATOCRIT 26.3 % (37-47); MEAN CORPUSCULAR HGB 28.3 PG (27.0-31.0); MEAN CORPUSCULAR HGB CONC 32.7 G/DL (33.0-37.0); MEAN CORPUSCULAR VOLUME 86.4 FL (81.0-99.0); MEAN PLATELET VOLUME 9.3 FL (7.4-10.4); PLATELET COUNT 178 /CUMM (130-400); RBC DISTRIBUTION WIDTH 19.2 % (11.5-14.5); RED BLOOD CELL CT 3.05 /CUMM (4.20-5.40)
--- NOTE | 2017-04-05 10:17 | RADIOLOGY REPORT ---
EXAMINATION:\H\ \N\XR CHEST CLINICAL INFORMATION: Evaluate for pneumothorax after thoracentesis. COMPARISON: 04/04/2017 at 11:26 AM TECHNIQUE: Frontal view of the chest was obtained. FINDINGS: The right pleural effusion has resolved after the recent thoracentesis procedure. No pneumothorax. Again noted is a small left pleural effusion and basilar atelectasis, cardiomegaly, atherosclerotic aorta, mild prominence of central pulmonary vessels and hiatal hernia. Skeletal findings include, severe osteoarthritis of bilateral glenohumeral joints IMPRESSION: No evidence of pneumothorax after the right thoracentesis.
--- NOTE | 2017-04-05 11:38 | PN- Pulmonary ---
Subjective HPI/Critical Care Issues: Stable On room air OCc chest discomfort IMPRESSION: Moderate right and small left-sided pleural effusions with nonspecific airspace disease at right mid to lower lung field and left lung base. When compared to prior study, there is interval progression of disease noted since 03/31/2017. DICTATED BY: Eddie Landon MD DATE/TIME DICTATED:04/04/17 / 1150 Objective Current Medications: Current Medications Sig/Rick Start time Last Medication Dose Route Stop Time Status Admin Acetaminophen 650 MG .STK-MED ONE 04/05 0126 DC PO 04/05 0127 Acetaminophen 650 MG .STK-MED ONE 04/04 1728 DC PO 04/04 1729 Acetaminophen 650 MG Q4P PRN 04/03 1200 AC 04/05 PO 0130 Apixaban 2.5 MG BID 04/05 1000 AC 04/05 PO 1045 Aspirin 81 MG DAILY 04/03 1000 AC 04/05 PO 1045 Carvedilol 25 MG BID 04/03 1000 AC 04/04 PO 2013 Ferrous Gluconate 325 MG DAILY 04/03 1000 AC 04/05 PO 1045 Furosemide 40 MG DAILY 04/03 1000 AC 04/05 IV 1045 Heparin Sodium 25,000 UNIT Q24H 04/03 0315 DC 04/03 (Porcine) IV 1300 Sodium Chloride 500 ML Hydromorphone HCl 2 MG QPM PRN 04/03 0257 AC 04/05 PO 0522 Hydroxychloroquine 200 MG BID 04/02 2202 AC 04/05 Sulfate PO 1045 Levothyroxine Sodium 0.025 MG DAILY AC 04/03 0700 AC 04/05 PO 0523 Lisinopril 10 MG DAILY 04/03 1000 AC 04/04 PO 0927 Lorazepam 1 MG ONCE ONE 04/04 1515 DC 04/04 IV 04/04 1516 1519 Lorazepam 2 MG ONE ONE 04/04 1500 CAN IV 04/04 1501 Magnesium Sulfate 1 GM Q2H 04/04 1815 DC 04/04 Dextrose/Water 100 ML IV 04/04 2214 2300 Omeprazole 40 MG DAILY AC 04/03 0700 AC 04/05 PO 0522 Ondansetron HCl 4 MG ONCE ONE 04/05 0145 DC 04/05 PO 04/05 0146 0143 Ondansetron HCl 4 MG .STK-MED ONE 04/05 0140 DC IM 04/05 0141 Prednisone 10 MG DAILY 04/03 1000 AC 04/05 PO 1045 Vital Signs & I&O Last 24 Hrs of Vitals and I&O: Vital Signs Date Time Temp Pulse Resp B/P B/P Pulse O2 O2 Flow FiO2 Mean Ox Delivery Rate 04/05 0634 100.1 74 20 100/46 92 Room Air 04/04 2336 97.5 60 20 130/68 93 04/04 2153 Room Air 04/04 2012 66 122/62 04/04 1748 Room Air 04/04 1432 98.0 64 20 136/70 92 Room Air Intake & Output 04/05 1600 04/05 0800 04/05 0000 Intake Total 240 240 Output Total Balance 240 240 Intake, Oral 240 240 Impression/Plan Impression/Plan Impression/Plan: Other Physical Findings: Generally - Awake, alert and comfortable without distress Head and neck - normocephalic, atraumatic, EOMI grossly intact Cardiovascular - S1, S2 Lungs -diminished breath sounds at bilateral bases and right mid chest wall Abdomen - Bowel sounds positive, soft, non-tender Extremities -edematous LAdy with sig blilateral worsening effusion CHF s/p thora / consistant with a trasudative effusion chest pain / cardio following DVT on eloqis H/p jory Anemia Blackish stool on colosomy REC Cont agg diuresis Out of bed to chair cont other meds Can resume anticoag Will follow
--- NOTE | 2017-04-05 11:43 | PN- Housestaff ---
Thom CURTIS,Jojo 04/05/17 1142: Subjective Follow-up For: Acute decompensated CHF NSTEMI History of DVT on Eliquis Complaints: pain scale (0-10) Subjective: patient is having generalized pain today that she attributes to arthritisher lisinopril and carvedilol were not given today for low blood pressure and heart rate. patient's breathing is mildly better after thoracentesis yesterday. overnight patient had a low grade fever 100.1 and wbcs today have jumped Review of Systems Constitutional: Reports: no symptoms. Respiratory: Reports: cough, short of breath. Objective Last 24 Hrs of Vital Signs/I&O Vital Signs Date Time Temp Pulse Resp B/P B/P Pulse O2 O2 Flow FiO2 Mean Ox Delivery Rate 04/05 1600 Room Air 04/05 1441 60 100/50 04/05 1441 60 100/50 04/05 1409 97.9 62 20 100/50 94 Room Air Room Air 04/05 0800 92 Room Air Room Air 04/05 0634 100.1 74 20 100/46 92 Room Air 04/04 2336 97.5 60 20 130/68 93 04/04 2153 Room Air 04/04 2013 66 122/62 Intake & Output 04/05 1600 04/05 0800 04/05 0000 Intake Total 500 240 240 Output Total 25 Balance 475 240 240 Intake, Oral 500 240 240 Number 0 Bowel Movements Output, Urine 25 Physical Exam General Appearance: Alert, Oriented X3, Cooperative, No Acute Distress Skin: No Rashes, No Breakdown, No Significant Lesion Skin Temp/Moisture Exam: Warm/Dry Cardiovascular: Normal S1, Normal S2, No Murmurs Lungs: decreased air entry bilaterally and mild crackles right side Abdomen: Normal Bowel Sounds, Soft, No Tenderness Current Medications: Current Medications Sig/Rick Start time Last Medication Dose Route Stop Time Status Admin Acetaminophen 650 MG .STK-MED ONE 04/05 0641 DC PO 04/05 0642 Acetaminophen 650 MG .STK-MED ONE 04/05 0126 DC PO 04/05 0127 Acetaminophen 650 MG Q4P PRN 04/03 1200 AC 04/05 PO 1440 Apixaban 2.5 MG BID 04/05 1000 AC 04/05 PO 1045 Aspirin 81 MG DAILY 04/03 1000 AC 04/05 PO 104 Carvedilol 25 MG BID 04/03 1000 AC 04/04 PO 2013 Ferrous Gluconate 325 MG DAILY 04/03 1000 AC 04/05 PO 1045 Furosemide 40 MG DAILY 04/03 1000 AC 04/05 IV 1045 Hydromorphone HCl 2 MG QPM PRN 04/03 0257 AC 04/05 PO 0522 Hydroxychloroquine 200 MG BID 04/02 2202 AC 04/05 Sulfate PO 1045 Levothyroxine Sodium 0.025 MG DAILY AC 04/03 0700 AC 04/05 PO 0523 Lisinopril 10 MG DAILY 04/03 1000 AC 04/04 PO 0927 Magnesium Sulfate 1 GM Q2H 04/04 1815 DC 04/04 Dextrose/Water 100 ML IV 04/04 2214 2300 Omeprazole 40 MG DAILY AC 04/03 0700 AC 04/05 PO 0522 Ondansetron HCl 4 MG ONCE ONE 04/05 0145 DC 04/05 PO 04/05 0146 0143 Ondansetron HCl 4 MG .STK-MED ONE 04/05 0140 DC IM 04/05 0141 Prednisone 10 MG DAILY 04/03 1000 AC 04/05 PO 1045 Last 24 Hrs of Lab/Rubin Results Last 24 Hrs of Labs/Mics: Laboratory Tests 04/05/17 0625: Anion Gap 10, Estimated GFR 40 L, BUN/Creatinine Ratio 28.5 H, CBC w Diff NO MAN DIFF REQ, RBC 3.05 L, MCV 86.4, MCH 28.3, RDW 19.2 H, MPV 9.3, Gran % 89.0 H, Lymphocytes % 6.5 L, Monocytes % 4.1, Eosinophils % 0.2, Basophils % 0.2, Absolute Granulocytes 14.4 H, Absolute Lymphocytes 1.0 L, Absolute Monocytes 0.7 H, Absolute Eosinophils 0, Absolute Basophils 0, PUBS MCHC 32.7 L Microbiology 04/05 175 LOWER RESP: Respiratory Culture - ORD 04/05 1754 LOWER RESP: Gram Stain - ORD 04/05 1700 NASOPHARYN: Influenza Virus A & B Rapid Smear - COMP 04/05 160 LOWER RESP: Respiratory Culture - CAN Cancelled: POOR QUALITY SPECIMEN, RECOLLECT AND REORDER, 1NO ( VIKI) 04/05 160 LOWER RESP: Gram Stain - CAN Cancelled: POOR QUALITY SPECIMEN, RECOLLECT AND REORDER, 1NO ( VIKI) Assessment/Plan Assessment: Patient is a 76-year-old female with significant past medical history of diastolic dysfunction, hypertension, anemia, anxiety presenting this admission with dyspnea on exertion, extensive edema, bilateral pleural effusions and elevated troponins with EKG changes in the inferior and lateral leads (T-wave inversion) and anemia. Chest x-ray showed Stable cardiomegaly with moderate bilateral pleural effusions with associated airspace disease. CT showed moderate pleural effusions more on the right side. She has history of pleural effusion the past. Patient went for thoracentesis yesterday. Successful ultrasound-guided right-sided thoracentesis yielding approximately 1 L of fluid. Fluid was transudative ie most likely caused by extravasation from her CHF. today patient wbcs increased, she has a productive cough, and had a low grade temperature overnight. 1. Decompensated diastolic heart failure. According to IR, post thoracentesis we have restarted eliquis 2.5 bid continue lasix 40 mg iv daily no new echo changes seen Continue carvedilol 25 mg twice a day most recently lisinopril and carvedilol held today for low bp 100/50 and pr 60 2. Atypical chest pain with elevated troponin and EKG changes showing evolving T-wave inversions. troponin levelled off. EKG remains the same. Cardiology consult appreciated Guaic stool was negative patient on eliquis Atorvastatin, aspirin 3. Anemia acute on chronic Continue iron supplement Stool guaiac negative 4. Lower leg pain Patient is asking for Alps to be removed as she has pain Patient is on eliquis so no need for alps 5. Black stool in colostomy bag Likely due to iron supplements guaic negatvie 6. Generalized pain Patient notes that she has generalized pain that she attributes to osteoarthritis Gave 650 mg Tylenol every 4 hours when necessary patient on dilaudid 2mg qpm as well 7. urine cultures unclear why done but are postivie gnr no symptoms so will not treat 8. cough and low grade fever wbc increase from 7.9 to 16.7 likely due to steroids sputum culture flu swab pt is DNR/DNI Problem List: 1. Pleural effusion 2. MARVEL (acute kidney injury) 3. Chronic kidney disease 4. CHF exacerbation 5. Chronic anemia Pain Ratin Pain Location: generalized Pain Goal: Pain 4 or less Pain Plan: dilaudid 2mg qpm and tylenol 650 Tomorrow's Labs & Rationales: cbc bep Valorie CURTIS,Efra 04/05/17 1438: Attending MD Review Statement Attending Statement Attending MD Statement: examined this patient, discuss w/resident/PA/COAL CAGER, agreed w/resident/PA/COAL CAGER, reviewed EMR data (avail), discussed with nursing, discussed with case mgmt, amended to note Attending Assessment/Plan: Patient seen and examined. Lying comfortably in bed not in any acute distress. No events on telemetry overnight. She remains in sinus rhythm. Denies chest pain or shortness of breath. Denies palpitations. She is status post thoracocentesis yesterday with removal of 1 L of fluid. Fluid is transudative in nature. On examination she is not in any acute distress. Heart sounds are regular. Breath sounds are diminished bilaterally more so on the right. She has peripheral edema. Recommendations: -Patient is noted to have leukocytosis on labs today. Likely reactive. No systemic evidence of infection. Will monitor closely. -Continue intravenous diuresis. -Mobilize patient as tolerated.
[2017-04-05 12:01] LABS: WHITE BLOOD CELL COUNT 16.1 /CUMM (4.8-10.8)
[2017-04-05 14:09] VITALS: BP 100/50
--- NOTE | 2017-04-05 15:13 | PN- Cardiology ---
Subjective Subjective: Appears stable today. Still in mild respiratory distress. He improved somewhat post thoracentesis. Objective Vital Signs and I&Os Vital Signs Date Time Temp Pulse Resp B/P B/P Pulse O2 O2 Flow FiO2 Mean Ox Delivery Rate 04/05 1441 60 100/50 04/05 1441 60 100/50 04/05 1409 97.9 62 20 100/50 94 Room Air Room Air 04/05 0800 92 Room Air Room Air 04/05 0634 100.1 74 20 100/46 92 Room Air 04/04 2336 97.5 60 20 130/68 93 04/04 2153 Room Air 04/04 2012 66 122/62 04/04 1748 Room Air Intake & Output 04/05 1600 04/05 0800 04/05 0000 04/04 1600 04/04 0800 04/04 0000 Intake Total 240 240 0 124.6 480 Output Total 1300 Balance 240 240 -1300 124.6 480 Intake, IV 124.6 Intake, Oral 240 240 0 0 480 Output, Stool 200 Output, Urine 1100 Physical Exam: General Appearance: Alert, Oriented X3, Cooperative, No Acute Distress Skin: Normal Skin Temp/Moisture Exam: Warm/Dry Cardiovascular: Regular Rate, Normal S1, Normal S2, No Murmurs Lungs: Scattered rhonchi; slightly greater on the left side Abdomen: LEFT COLOSTOMY BAG Extremities: No Clubbing, No Cyanosis, Normal Pulses, plus edema Current Medications: Current Medications Sig/Rick Start time Last Medication Dose Route Stop Time Status Admin Acetaminophen 650 MG .STK-MED ONE 04/05 0641 DC PO 04/05 0642 Acetaminophen 650 MG .STK-MED ONE 04/05 0126 DC PO 04/05 0127 Acetaminophen 650 MG .STK-MED ONE 04/04 1728 DC PO 04/04 1729 Acetaminophen 650 MG Q4P PRN 04/03 1200 AC 04/05 PO 1440 Apixaban 2.5 MG BID 04/05 1000 AC 04/05 PO 1045 Aspirin 81 MG DAILY 04/03 1000 AC 04/05 PO 1045 Carvedilol 25 MG BID 04/03 1000 AC 04/04 PO 2013 Ferrous Gluconate 325 MG DAILY 04/03 1000 AC 04/05 PO 1045 Furosemide 40 MG DAILY 04/03 1000 AC 04/05 IV 1045 Hydromorphone HCl 2 MG QPM PRN 04/03 0257 AC 04/05 PO 0522 Hydroxychloroquine 200 MG BID 04/02 2202 AC 04/05 Sulfate PO 1045 Levothyroxine Sodium 0.025 MG DAILY AC 04/03 0700 AC 04/05 PO 0523 Lisinopril 10 MG DAILY 04/03 1000 AC 04/04 PO 0927 Lorazepam 1 MG ONCE ONE 04/04 1515 DC 04/04 IV 04/04 1516 1519 Lorazepam 2 MG ONE ONE 04/04 1500 CAN IV 04/04 1501 Magnesium Sulfate 1 GM Q2H 04/04 1815 DC 04/04 Dextrose/Water 100 ML IV 04/04 2214 2300 Omeprazole 40 MG DAILY AC 04/03 0700 AC 04/05 PO 0522 Ondansetron HCl 4 MG ONCE ONE 04/05 0145 DC 04/05 PO 04/05 0146 0143 Ondansetron HCl 4 MG .STK-MED ONE 04/05 0140 DC IM 04/05 0141 Prednisone 10 MG DAILY 04/03 1000 AC 04/05 PO 1045 Results Last 48 Hrs of Labs/Mics: Laboratory Tests 04/05/17 0625: Anion Gap 10, Estimated GFR 40 L, BUN/Creatinine Ratio 28.5 H, CBC w Diff NO MAN DIFF REQ, RBC 3.05 L, MCV 86.4, MCH 28.3, RDW 19.2 H, MPV 9.3, Gran % 89.0 H, Lymphocytes % 6.5 L, Monocytes % 4.1, Eosinophils % 0.2, Basophils % 0.2, Absolute Granulocytes 14.4 H, Absolute Lymphocytes 1.0 L, Absolute Monocytes 0.7 H, Absolute Eosinophils 0, Absolute Basophils 0, PUBS MCHC 32.7 L 04/04/17 1655: Pleural pH 7.47 04/04/17 1614: Fluid WBC 78 H, Fld Total RBCs Counted 94 H 04/04/17 1614: Lymphocytes 35, % Normal PMNs 12, Misc Hematology Test , Fluid Total Protein < 2.0, Fluid Albumin < 1.0, Fluid LDH 167, Fluid Cholesterol < 50 04/04/17 1500: Fluid Total Protein Cancelled 04/04/17 1200: Troponin I Cancelled, APTT Cancelled 04/04/17 0630: Troponin I Cancelled 04/04/17 0430: Anion Gap 8, Estimated GFR 36 L, BUN/Creatinine Ratio 27.1 H, Magnesium 1.6, Lactate Dehydrogenase 467, Troponin I 0.55 *H, APTT 60 H, CBC w Diff NO MAN DIFF REQ, RBC 2.92 L, MCV 86.0, MCH 28.0, RDW 19.5 H, MPV 8.9, Gran % 70.6, Lymphocytes % 22.6, Monocytes % 5.9, Eosinophils % 0.5, Basophils % 0.4, Absolute Granulocytes 5.6, Absolute Lymphocytes 1.8, Absolute Monocytes 0.5, Absolute Eosinophils 0, Absolute Basophils 0, PUBS MCHC 32.6 L 04/03/17 2300: Troponin I 0.48 *H 04/03/17 1900: APTT Cancelled 04/03/17 1840: APTT > 120 *H Assessment/Plan Assessment/Plan Assessment: 1. Acute on chronic HFpEF with pleural effusions 2. Rheumatoid arthritis 3. History of DVT 4. Sleep apnea 5. Chronic anemia 6. Hypertension 7. Aortic stenosis 8. Elevated troponin consistent with type II MD Recommendations: -Continue to monitor on telemetry -Follow-up labs pending -Continue to monitor her intakes, outputs, and daily weights closely. -Replete potassium and magnesium as necessary. Continue telemetry? Yes
[2017-04-05 23:15] VITALS: BP 128/60
[2017-04-06 06:00] VITALS: BP 124/58
[2017-04-06 07:09] VITALS: BP 118/68
[2017-04-06 07:57] LABS: ABSOLUTE BASOPHIL COUNT 0.1 /CUMM (0.0-0.2); ABSOLUTE EOSINOPHIL COUNT 0.1 /CUMM (0.0-0.7); ABSOLUTE GRANULOCYTE CT 7.9 /CUMM (1.4-6.5); ABSOLUTE LYMPH COUNT 1.6 /CUMM (1.2-3.4); ABSOLUTE MONOCYTE COUNT 0.5 /CUMM (0.10-0.60); BASOPHIL % 0.5 % (0.0-2.0); EOSINOPHIL % 0.7 % (0-5); GRANULOCYTE % 77.7 % (42.2-75.2); MEAN CORPUSCULAR HGB 28.2 PG (27.0-31.0); MEAN CORPUSCULAR HGB CONC 32.6 G/DL (33.0-37.0); MEAN CORPUSCULAR VOLUME 86.5 FL (81.0-99.0); MEAN PLATELET VOLUME 9.6 FL (7.4-10.4); PLATELET COUNT 169 /CUMM (130-400); RBC DISTRIBUTION WIDTH 19.1 % (11.5-14.5); RED BLOOD CELL CT 2.92 /CUMM (4.20-5.40); WHITE BLOOD CELL COUNT 10.1 /CUMM (4.8-10.8)
[2017-04-06 08:41] LABS: HEMATOCRIT 25.3 % (37-47)
--- NOTE | 2017-04-06 08:42 | PN- Housestaff ---
See Addendum Subjective Follow-up For: CHF, type 2 MT Tele-Events Since Last Visit: NSR, 60s Subjective: No overnight events. This morning, patient complaining of chest pain, shortness of breath, and lower extemity pain. She slept well. No N/V or abd pain. Review of Systems Constitutional: Reports: no symptoms. EENTM: Reports: no symptoms. Cardiovascular: Reports: see HPI. Respiratory: Reports: see HPI. Gastrointestinal: Reports: no symptoms. Genitourinary: Reports: no symptoms. Musculoskeletal: Reports: see HPI. Skin: Reports: no symptoms. Neurological/Psychological: Reports: no symptoms. Hematologic/Endocrine: Reports: no symptoms. Immunologic/Allergic: Reports: no symptoms. Objective Last 24 Hrs of Vital Signs/I&O Vital Signs Date Time Temp Pulse Resp B/P B/P Pulse O2 O2 Flow FiO2 Mean Ox Delivery Rate 04/06 0802 61 118/68 04/06 0801 61 118/68 04/06 0709 98.2 61 18 118/68 96 Room Air 04/06 0600 97.9 65 18 124/58 94 Room Air 04/05 2315 98.3 65 18 128/60 95 Room Air 04/05 2247 69 132/70 04/05 1600 Room Air 04/05 1441 60 100/50 04/05 1441 60 100/50 04/05 1409 97.9 62 20 100/50 94 Room Air Room Air Intake & Output 04/06 1600 04/06 0800 04/06 0000 Intake Total 110 400 Output Total Balance 110 400 Intake, IV 10 Intake, Oral 100 400 Physical Exam General Appearance: Alert, Oriented X3, Cooperative, No Acute Distress Skin: No Rashes Cardiovascular: Regular Rate, Normal S1, Normal S2 Lungs: Clear to Auscultation Abdomen: Soft, No Tenderness, ostomy bag Extremities: Normal Pulses, trace edema, tender to palpation bilaterally Current Medications: Current Medications Sig/Rick Start time Last Medication Dose Route Stop Time Status Admin Acetaminophen 650 MG .STK-MED ONE 04/05 1439 DC PO 04/05 1440 Acetaminophen 650 MG Q4P PRN 04/03 1200 AC 04/06 PO 0810 Apixaban 2.5 MG BID 04/05 1000 AC 04/06 PO 0801 Aspirin 81 MG DAILY 04/03 1000 AC 04/06 PO 0801 Carvedilol 25 MG BID 04/03 1000 AC 04/06 PO 0801 Ferrous Gluconate 325 MG DAILY 04/03 1000 AC 04/06 PO 0801 Furosemide 40 MG DAILY 04/03 1000 AC 04/06 IV 0800 Hydromorphone HCl 2 MG ONCE ONE 04/05 2029 DC 04/05 PO 04/05 Hydromorphone HCl 1 MG ONCE ONE 04/05 1945 CAN IV 04/05 194 Hydromorphone HCl 2 MG QPM PRN 04/03 0257 AC 04/06 PO 0311 Hydroxychloroquine 200 MG BID 04/02 220 AC 04/06 Sulfate PO 0801 Levothyroxine Sodium 0.025 MG DAILY AC 04/03 0700 AC 04/06 PO 0609 Lisinopril 10 MG DAILY 04/03 1000 AC 04/06 PO 0802 Omeprazole 40 MG DAILY AC 04/03 0700 AC 04/06 PO 0609 Prednisone 10 MG DAILY 04/03 1000 AC 04/06 PO 0802 Last 24 Hrs of Lab/Rubin Results Last 24 Hrs of Labs/Mics: Laboratory Tests 04/06/17 0630: Anion Gap 8, Estimated GFR 36 L, BUN/Creatinine Ratio 29.3 H, Troponin I Pending, CBC w Diff NO MAN DIFF REQ, RBC 2.92 L, MCV 86.5, MCH 28.2, RDW 19.1 H, MPV 9.6, Gran % 77.7 H, Lymphocytes % 15.8 L, Monocytes % 5.3, Eosinophils % 0.7, Basophils % 0.5, Absolute Granulocytes 7.9 H, Absolute Lymphocytes 1.6, Absolute Monocytes 0.5, Absolute Eosinophils 0.1, Absolute Basophils 0.1, PUBS MCHC 32.6 L Microbiology 04/05 1754 LOWER RESP: Respiratory Culture - COLB 04/05 1754 LOWER RESP: Gram Stain - COLB 04/05 1700 NASOPHARYN: Influenza Virus A & B Rapid Smear - COMP 04/05 160 LOWER RESP: Respiratory Culture - CAN Cancelled: POOR QUALITY SPECIMEN, RECOLLECT AND REORDER, 1NO ( VIKI) 04/05 160 LOWER RESP: Gram Stain - CAN Cancelled: POOR QUALITY SPECIMEN, RECOLLECT AND REORDER, 1NO ( VIKI) Assessment/Plan Assessment: Patient is a 76-year-old female with significant past medical history of diastolic dysfunction, hypertension, anemia, anxiety presenting this admission with dyspnea on exertion, extensive edema, bilateral pleural effusions and elevated troponins with EKG changes in the inferior and lateral leads (T-wave inversion) and anemia. 1. Decompensated diastolic heart failure. CXR shows bibasilar effusions, right increased since thora and mild vascular congestion. +1.1L yesterday. According to IR, post thoracentesis we have restarted eliquis 2.5 bid continue lasix 40 mg iv daily no new echo changes seen Continue carvedilol 25 mg twice a day Appreciate cardiology recommendations 2. Atypical chest pain with elevated troponin and EKG changes showing evolving T-wave inversions. She is complaining of chest pain again this morning. Repeat troponin was 0.55, stable from last time. -Trend troponin Cardiology consult appreciated Guaic stool was negative patient on eliquis Atorvastatin, aspirin 3. Anemia acute on chronic Continue iron supplement Stool guaiac negative 4. Lower leg pain Patient is on eliquis. She is a history of DVT. -Follow-up bilateral lower extremity ultrasound 5. Black stool in colostomy bag Likely due to iron supplements guaic negatvie 6. Generalized pain Patient notes that she has generalized pain that she attributes to osteoarthritis Gave 650 mg Tylenol every 4 hours when necessary patient on dilaudid 2mg qpm as well 7. urine cultures unclear why done but are postivie gnr no symptoms so will not treat 8. cough and low grade fever wbc increase from 7.9 to 16.7. Today white blood cell count 10.1. Flu swab negative. No further symptoms. CTM DVT prophylaxis with apixiban Heart healthy diet DNR/DNI Problem List: 1. CHF exacerbation Pain Ratin Pain Location: chest Pain Goal: Remain pain free Pain Plan: see a/p Tomorrow's Labs & Rationales: cbc, bep
--- NOTE | 2017-04-06 10:01 | RADIOLOGY REPORT ---
EXAMINATION: XR PORTABLE CHEST CLINICAL INFORMATION: Shortness of breath. Bilateral effusions, greater on right. COMPARISON: Ultrasound guided right thoracentesis and post procedure chest radiograph 04/04/2017, portable chest 04/04/2017 preprocedure, and portable chest 03/31/2017. TECHNIQUE: Portable frontal view of the chest was obtained. FINDINGS: There are small bibasilar effusions. Right effusion is increased when compared with the postthoracentesis chest radiograph 04/04/2017. There is subsegmental atelectasis left lower zone and right infrahilar region. Again, there is mild cardiomegaly with even distribution pulmonary blood flow consistent with elevated pulmonary venous pressures. Mediastinal contours and bony structures are stable. IMPRESSION: 1. Small bibasilar effusions, right increased since thoracentesis 04/04/2017. 2. Mild vascular congestion. Bibasilar subsegmental atelectasis.
--- NOTE | 2017-04-06 11:28 | ULTRASOUND REPORT ---
EXAMINATION: US VENOUS ULTRASOUND WITH DOPPLER LOWER EXTREMITY, BILATERAL CLINICAL INFORMATION: Lower extremity pain. Prior history DVT left arm 2015. COMPARISON: None. TECHNIQUE: Ultrasound of the deep veins is performed from the hip to the calf with compression sonography and color and pulse Doppler assessment. Spectral analysis with color-flow imaging is performed. Both lower extremities are evaluated at bedside as a portable exam. Clinical Esthetician notes technical challenges due to portable study and body habitus/edema. FINDINGS: Both lower extremities are evaluated. There is normal venous compression and respiratory variation and augmented flow throughout the bilateral deep veins. The visualized bilateral common femoral veins, superficial femoral veins, profunda femoral veins, popliteal veins, and the trifurcation regions show no evidence of deep venous thrombosis. There is no significant popliteal fossa cyst. If the patient's symptoms persist, followup ultrasound in 5 days 7 days might be of value to exclude proximal propagation from a non-visualized calf vein. IMPRESSION: No DVT demonstrated in the bilateral lower extremity.
--- NOTE | 2017-04-06 12:12 | PN- Pulmonary ---
Subjective HPI/Critical Care Issues: No overnight events. This morning, patient complaining of chest pain, shortness of breath, and lower extemity pain. She slept well. No N/V or abd pain. Review of Systems Constitutional: Reports: no symptoms. EENTM: Reports: no symptoms. Cardiovascular: Reports: see HPI. Respiratory: Reports: see HPI. Gastrointestinal: Reports: no symptoms. Genitourinary: Reports: no symptoms. Musculoskeletal: Reports: see HPI. Skin: Reports: no symptoms. Neurological/Psychological: Reports: no symptoms. Hematologic/Endocrine: Reports: no symptoms. Immunologic/Allergic: Reports: no symptoms. Objective Current Medications: Current Medications Sig/Rick Start time Last Medication Dose Route Stop Time Status Admin Acetaminophen 650 MG .STK-MED ONE 04/05 1439 DC PO 04/05 1440 Acetaminophen 650 MG Q4P PRN 04/03 1200 AC 04/06 PO 0810 Apixaban 2.5 MG BID 04/05 1000 DC 04/06 PO 0801 Aspirin 81 MG DAILY 04/03 1000 AC 04/06 PO 0801 Carvedilol 25 MG BID 04/03 1000 AC 04/06 PO 0801 Ferrous Gluconate 325 MG DAILY 04/03 1000 AC 04/06 PO 0801 Furosemide 40 MG DAILY 04/03 1000 AC 04/06 IV 0800 Guaifenesin 600 MG Q12 04/06 1000 AC PO Hydromorphone HCl 2 MG ONCE ONE 04/05 2030 DC 04/05 PO 04/05 Hydromorphone HCl 1 MG ONCE ONE 04/05 1945 CAN IV 04/05 1946 Hydromorphone HCl 2 MG QPM PRN 04/03 0257 AC 04/06 PO 0311 Hydroxychloroquine 200 MG BID 04/02 2202 AC 04/06 Sulfate PO 0801 Levothyroxine Sodium 0.025 MG DAILY AC 04/03 0700 AC 04/06 PO 0609 Lisinopril 10 MG DAILY 04/03 1000 AC 04/06 PO 0802 Nitroglycerin 0.4 MG ONCE ONE 04/06 0915 DC SL 04/06 0916 Omeprazole 40 MG DAILY AC 04/03 0700 AC 04/06 PO 0609 Prednisone 10 MG DAILY 04/03 1000 AC 04/06 PO 0802 Vital Signs & I&O Last 24 Hrs of Vitals and I&O: Vital Signs Date Time Temp Pulse Resp B/P B/P Pulse O2 O2 Flow FiO2 Mean Ox Delivery Rate 04/06 0802 61 118/68 04/06 0801 61 118/68 04/06 0800 93 Room Air Room Air 04/06 0709 98.2 61 18 118/68 96 Room Air 04/06 0600 97.9 65 18 124/58 94 Room Air 04/05 2315 98.3 65 18 128/60 95 Room Air 04/05 2247 69 132/70 04/05 1600 Room Air 04/05 1441 60 100/50 04/05 1441 60 100/50 04/05 1409 97.9 62 20 100/50 94 Room Air Room Air Intake & Output 04/06 1600 04/06 0800 04/06 0000 Intake Total 200 110 400 Output Total Balance 200 110 400 Intake, IV 10 Intake, Oral 200 100 400 Impression/Plan Impression/Plan Impression/Plan: Other Physical Findings: Generally - Awake, alert and comfortable without distress Head and neck - normocephalic, atraumatic, EOMI grossly intact Cardiovascular - S1, S2 Lungs -diminished breath sounds at bilateral bases and right mid chest wall Abdomen - Bowel sounds positive, soft, non-tender Extremities -edematous LAdy with sig blilateral worsening effusion CHF s/p thora / consistant with a trasudative effusion chest pain / cardio following DVT on eloqis H/p jory Anemia Blackish stool on colosomy REC Cont agg diuresis Out of bed to chair cont other meds Will follow
[2017-04-06 14:48] VITALS: BP 104/50
--- NOTE | 2017-04-06 14:51 | PN- Cardiology ---
Subjective Subjective: Resting comfortably in bed. Denies any significant symptoms. Still appears to be mildly dyspneic. Objective Vital Signs and I&Os Vital Signs Date Time Temp Pulse Resp B/P B/P Pulse O2 O2 Flow FiO2 Mean Ox Delivery Rate 04/06 1305 96 Room Air 04/06 1255 Room Air 04/06 0802 61 118/68 04/06 0801 61 118/68 04/06 0800 93 Room Air Room Air 04/06 0709 98.2 61 18 118/68 96 Room Air 04/06 0600 97.9 65 18 124/58 94 Room Air 04/05 2315 98.3 65 18 128/60 95 Room Air 04/05 2247 69 132/70 04/05 1600 Room Air Intake & Output 04/06 1600 04/06 0800 04/06 0000 04/05 1600 04/05 0800 04/05 0000 Intake Total 400 110 400 500 240 240 Output Total 25 Balance 400 110 400 475 240 240 Intake, IV 10 Intake, Oral 400 100 400 500 240 240 Number 0 Bowel Movements Output, Urine 25 Physical Exam: General Appearance: Alert, Oriented X3, Cooperative, No Acute Distress Skin: Normal Skin Temp/Moisture Exam: Warm/Dry Cardiovascular: Regular Rate, Normal S1, Normal S2, No Murmurs Lungs: Scattered rhonchi; slightly greater on the left side Abdomen: LEFT COLOSTOMY BAG Extremities: No Clubbing, No Cyanosis, Normal Pulses, plus edema Current Medications: Current Medications Sig/Rick Start time Last Medication Dose Route Stop Time Status Admin Acetaminophen 650 MG Q4P PRN 04/03 1200 AC 04/06 PO 0810 Albuterol Sulfate 3 ML Q4P PRN 04/06 1315 AC INH Apixaban 2.5 MG BID 04/06 2200 AC PO Apixaban 2.5 MG BID 04/05 1000 DC 04/06 PO 0801 Aspirin 81 MG DAILY 04/03 1000 AC 04/06 PO 0801 Carvedilol 25 MG BID 04/03 1000 AC 04/06 PO 0801 Ferrous Gluconate 325 MG DAILY 04/03 1000 AC 04/06 PO 0801 Furosemide 40 MG DAILY 04/03 1000 AC 04/06 IV 0800 Guaifenesin 600 MG Q12 04/06 1000 AC 04/06 PO 1229 Hydromorphone HCl 2 MG ONCE ONE 04/05 2029 DC 04/05 PO 04/05 Hydromorphone HCl 1 MG ONCE ONE 04/05 1944 CAN IV 04/05 1945 Hydromorphone HCl 2 MG QPM PRN 04/03 0257 AC 04/06 PO 031 Hydroxychloroquine 200 MG BID 04/02 220 AC 04/06 Sulfate PO 0801 Levothyroxine Sodium 0.025 MG DAILY AC 04/03 0700 AC 04/06 PO 0609 Lisinopril 10 MG DAILY 04/03 1000 AC 04/06 PO 0802 Nitroglycerin 0.4 MG ONCE ONE 04/06 0915 DC SL 04/06 0916 Omeprazole 40 MG DAILY AC 04/03 0700 AC 04/06 PO 0609 Prednisone 10 MG DAILY 04/03 1000 AC 04/06 PO 0802 Results Last 48 Hrs of Labs/Mics: Laboratory Tests 04/06/17 1205: Troponin I 0.59 *H 04/06/17 0630: Anion Gap 8, Estimated GFR 36 L, BUN/Creatinine Ratio 29.3 H, Troponin I 0.55 *H, CBC w Diff NO MAN DIFF REQ, RBC 2.92 L, MCV 86.5, MCH 28.2, RDW 19.1 H, MPV 9.6, Gran % 77.7 H, Lymphocytes % 15.8 L, Monocytes % 5.3, Eosinophils % 0.7, Basophils % 0.5, Absolute Granulocytes 7.9 H, Absolute Lymphocytes 1.6, Absolute Monocytes 0.5, Absolute Eosinophils 0.1, Absolute Basophils 0.1, PUBS MCHC 32.6 L 04/05/17 0625: Anion Gap 10, Estimated GFR 40 L, BUN/Creatinine Ratio 28.5 H, CBC w Diff NO MAN DIFF REQ, RBC 3.05 L, MCV 86.4, MCH 28.3, RDW 19.2 H, MPV 9.3, Gran % 89.0 H, Lymphocytes % 6.5 L, Monocytes % 4.1, Eosinophils % 0.2, Basophils % 0.2, Absolute Granulocytes 14.4 H, Absolute Lymphocytes 1.0 L, Absolute Monocytes 0.7 H, Absolute Eosinophils 0, Absolute Basophils 0, PUBS MCHC 32.7 L 04/04/17 1655: Pleural pH 7.47 04/04/17 1614: Fluid WBC 78 H, Fld Total RBCs Counted 94 H 04/04/17 1614: Lymphocytes 35, % Normal PMNs 12, Misc Hematology Test , Fluid Total Protein < 2.0, Fluid Albumin < 1.0, Fluid LDH 167, Fluid Cholesterol < 50 04/04/17 1500: Fluid Total Protein Cancelled Microbiology 04/05 1700 NASOPHARYN: Influenza Virus A & B Rapid Smear - COMP Assessment/Plan Assessment/Plan Assessment: 1. Acute on chronic HFpEF with pleural [id number] chest x-ray shows recurrence of right pleural effusion which was just tapped several days ago. 2. Rheumatoid arthritis 3. History of DVT 4. Sleep apnea 5. Chronic anemia 6. Hypertension 7. Aortic stenosis 8. Elevated troponin consistent with type II ID Recommendations: -Continue to monitor on telemetry -Follow-up labs pending -Continue to monitor her intakes, outputs, and daily weights closely. -Replete potassium and magnesium as necessary. -Oral anticoagulation held pending possible reattempt thoracentesis versus evaluation for other procedures such as Pleurx catheter, etc. -continue to maintain negative fluid balance with daily IV Lasix. Continue telemetry? Yes
[2017-04-06 23:02] VITALS: BP 98/60
--- NOTE | 2017-04-07 05:23 | Event Note ---
Event Note Event Note: Paged stating patient is SOB Vitals: HR: 68, BP: 116/54, T: 97.9, RR: 20, O2 sat: 95% on RA Spoke to patient, states she is feeling SOB and is having a productive cough with yellow phlegm. Denies fever/chills. States she is feeling anxious about being in the hospital. Patient had a respiratory treatment around 1:45AM after which she states she felt better. Patient states she has not been able to sleep due to the cough and SOB. - Respiratory treatment - Cough suppressant
[2017-04-07 06:00] VITALS: BP 116/54
[2017-04-07 08:27] LABS: ABSOLUTE BASOPHIL COUNT 0 /CUMM (0.0-0.2); ABSOLUTE EOSINOPHIL COUNT 0 /CUMM (0.0-0.7); ABSOLUTE GRANULOCYTE CT 7.1 /CUMM (1.4-6.5); ABSOLUTE LYMPH COUNT 1.6 /CUMM (1.2-3.4); ABSOLUTE MONOCYTE COUNT 0.5 /CUMM (0.10-0.60); BASOPHIL % 0 % (0.0-2.0); EOSINOPHIL % 0 % (0-5); GRANULOCYTE % 77.1 % (42.2-75.2); HEMATOCRIT 24.6 % (37-47); MEAN CORPUSCULAR HGB 27.8 PG (27.0-31.0); MEAN PLATELET VOLUME 9.8 FL (7.4-10.4); PLATELET COUNT 160 /CUMM (130-400); RBC DISTRIBUTION WIDTH 19.4 % (11.5-14.5); RED BLOOD CELL CT 2.84 /CUMM (4.20-5.40); WHITE BLOOD CELL COUNT 9.2 /CUMM (4.8-10.8)
--- NOTE | 2017-04-07 08:54 | PN- Housestaff ---
See Addendum Subjective Follow-up For: chf nstemi anemia Tele-Events Since Last Visit: nsr 60-63 Subjective: patient continues to have productive cough yellow sputum. chest heaviness. getting breathing treatments. sob remains. Review of Systems Constitutional: Reports: no symptoms. Respiratory: Reports: cough, short of breath. Objective Last 24 Hrs of Vital Signs/I&O Vital Signs Date Time Temp Pulse Resp B/P B/P Pulse O2 O2 Flow FiO2 Mean Ox Delivery Rate 04/07 1509 98.4 64 16 100/50 95 Room Air 04/07 1059 94 Room Air 04/07 0930 68 116/54 04/07 0929 68 116/54 04/07 0830 Room Air 04/07 0600 97.9 68 20 116/54 94 Room Air 04/07 0145 95 Room Air 04/07 0010 62 98/50 04/07 0000 Room Air 04/06 2302 98.6 62 16 98/60 95 Room Air 04/06 1940 95 Room Air Room Air Intake & Output 04/07 1600 04/07 0800 04/07 0000 Intake Total 100 110 350 Output Total Balance 100 110 350 Intake, IV 10 Intake, Oral 100 100 350 Number 0 Bowel Movements Physical Exam General Appearance: Alert, Oriented X3, Cooperative, Mild Distress Cardiovascular: Regular Rate, Normal S1, Normal S2, No Murmurs Lungs: crackles and wheezes throughout Abdomen: Normal Bowel Sounds, Soft, No Tenderness, No Hepatospenomegaly Current Medications: Current Medications Sig/Rick Start time Last Medication Dose Route Stop Time Status Admin Acetaminophen 650 MG .STK-MED ONE 04/07 0607 DC PO 04/07 0608 Acetaminophen 650 MG .STK-MED ONE 04/06 1959 DC PO 04/06 2000 Acetaminophen 650 MG Q4P PRN 04/03 1200 AC 04/07 PO 0608 Acetylcysteine 2 ML BID 04/07 2200 AC INH Acetylcysteine 6,486.371 MG ONCE ONE 04/07 1442 CAN Dextrose/Water 1,000 ML IV 04/08 0713 Acetylcysteine 2 ML BID PRN 04/07 1000 AC 04/07 INH 04/07 2159 1040 Albuterol Sulfate 3 ML BID 04/07 2200 AC INH Albuterol Sulfate 3 ML Q4P PRN 04/06 1315 DC 04/07 INH 1039 Apixaban 2.5 MG BID 04/06 2200 AC 04/07 PO 0930 Aspirin 81 MG DAILY 04/03 1000 AC 04/07 PO 0929 Carvedilol 25 MG BID 04/03 1000 AC 04/07 PO 0929 Ferrous Gluconate 325 MG DAILY 04/03 1000 AC 04/07 PO 0929 Furosemide 40 MG ONCE ONE 04/07 1600 DC 04/07 IV 04/07 1601 1617 Furosemide 40 MG DAILY 04/03 1000 AC 04/07 IV 0929 Guaifenesin 10 ML Q6P PRN 04/07 0530 AC PO Guaifenesin 600 MG Q12 04/06 1000 AC 04/07 PO 0929 Hydromorphone HCl 2 MG ONCE ONE 04/07 1215 DC 04/07 PO 04/07 1216 1228 Hydromorphone HCl 2 MG QPM PRN 04/03 0257 AC 04/06 PO 2158 Hydroxychloroquine 200 MG BID 04/02 2202 AC 04/07 Sulfate PO 0929 Levothyroxine Sodium 0.025 MG DAILY AC 04/03 0700 AC 04/07 PO 0608 Lisinopril 10 MG DAILY 04/03 1000 AC 04/07 PO 0930 Omeprazole 40 MG DAILY AC 04/03 0700 AC 04/07 PO 0608 Prednisone 10 MG DAILY 04/03 1000 AC 04/07 PO 0929 Sertraline HCl 25 MG DAILY 04/06 1642 AC 04/07 PO 0930 Last 24 Hrs of Lab/Rubin Results Last 24 Hrs of Labs/Mics: Laboratory Tests 04/07/17 0635: Anion Gap 8, Estimated GFR 36 L, BUN/Creatinine Ratio 28.6 H, CBC w Diff NO MAN DIFF REQ, RBC 2.84 L, MCV 87.0, MCH 27.8, RDW 19.4 H, MPV 9.8, Gran % 77.1 H, Lymphocytes % 17.2 L, Monocytes % 5.7, Eosinophils % 0, Basophils % 0, Absolute Granulocytes 7.1 H, Absolute Lymphocytes 1.6, Absolute Monocytes 0.5, Absolute Eosinophils 0, Absolute Basophils 0, PUBS MCHC 32.0 L 04/06/17 2105: Troponin I 0.51 *H Assessment/Plan Assessment: Patient is a 76-year-old female with significant past medical history of diastolic dysfunction, hypertension, anemia, anxiety presenting this admission with dyspnea on exertion, extensive edema, bilateral pleural effusions and elevated troponins with EKG changes in the inferior and lateral leads (T-wave inversion) and anemia. 1. Decompensated diastolic heart failure. CXR shows bibasilar effusions, right increased since thora and mild vascular congestion. +1.1L yesterday. thoracentesis removed 1L give one extra lasix today 40mg po According to IR, post thoracentesis we have restarted eliquis 2.5 bid continue lasix 40 mg iv daily no new echo changes seen Continue carvedilol 25 mg twice a day Appreciate cardiology recommendations pleural fluid grew gnr- consult with GI - start rocephin 1g daily do repeat cxr and start mucomyst and incentive spriometry 2. Atypical chest pain with elevated troponin and EKG changes showing evolving T-wave inversions. She is complaining of chest pain again this morning. Repeat troponin was 0.55, stable from last time. -Trop trended down to .51 Cardiology consult appreciated Guaic stool was negative patient on eliquis Atorvastatin, aspirin 3. Anemia acute on chronic Continue iron supplement Stool guaiac negative 4. Lower leg pain Patient is on eliquis. She is a history of DVT. -venous doppler lower ext negative 5. Black stool in colostomy bag Likely due to iron supplements guaic negatvie 6. Generalized pain Patient notes that she has generalized pain that she attributes to osteoarthritis Gave 650 mg Tylenol every 4 hours when necessary patient on dilaudid 2mg qpm as well 7. urine cultures unclear why done but are postivie gnr no symptoms so will not treat 8. cough and low grade fever wbc increase. Flu swab negative. No further symptoms. CTM 9. aspiration? patient appears to be choking on interview swallow eval\start ground food and thin liquids 10. disposition as per PT can only tolerate 15 mins. will continue to monitor for outpatient planning down the road DVT prophylaxis with apixiban Heart healthy diet DNR/DNI Problem List: 1. Pleural effusion 2. Chronic anemia 3. Elevated troponin 4. Chronic kidney disease 5. CHF exacerbation Pain Ratin Pain Location: lower legs Pain Goal: Pain 4 or less Pain Plan: prn Tomorrow's Labs & Rationales: cbc bep
--- NOTE | 2017-04-07 13:24 | PN- Cardiology ---
Subjective Subjective: State that she is now having a cough productive of tenacious yellowish sputum that she is having difficulty mobilizing. Objective Vital Signs and I&Os Vital Signs Date Time Temp Pulse Resp B/P B/P Pulse O2 O2 Flow FiO2 Mean Ox Delivery Rate 04/07 1059 94 Room Air 04/07 0930 68 116/54 04/07 0929 68 116/54 04/07 0830 Room Air 04/07 0600 97.9 68 20 116/54 94 Room Air 04/07 0145 95 Room Air 04/07 0010 62 98/50 04/07 0000 Room Air 04/06 2302 98.6 62 16 98/60 95 Room Air 04/06 1940 95 Room Air Room Air 04/06 1600 96 Room Air 04/06 1448 98.4 66 18 104/50 94 Room Air Intake & Output 04/07 1600 04/07 0800 04/07 0000 04/06 1600 04/06 0800 04/06 0000 Intake Total 110 350 400 110 400 Output Total Balance 110 350 400 110 400 Intake, IV 10 10 Intake, Oral 100 350 400 100 400 Number 0 Bowel Movements Physical Exam: Well-developed, overweight elderly female in no acute distress with nasal oxygen in place. Vital signs: See above. Neck: No JVD, no bruits. Lungs: Decreased breath sounds at the bases bilaterally. Heart: S1, S2 with no murmur, gallop, or rub. Abdomen: Soft, nontender, positive bowel sounds. Extremities: No edema. Current Medications: Current Medications Sig/Rick Start time Last Medication Dose Route Stop Time Status Admin Acetaminophen 650 MG .STK-MED ONE 04/06 1959 DC PO 04/06 2000 Acetaminophen 650 MG .STK-MED ONE 04/06 1455 DC PO 04/06 1456 Acetaminophen 650 MG Q4P PRN 04/03 1200 AC 04/07 PO 0608 Acetylcysteine 2 ML BID 04/07 2200 AC INH Acetylcysteine 6,486.371 MG ONCE ONE 04/07 1442 CAN Dextrose/Water 1,000 ML IV 04/08 0713 Acetylcysteine 2 ML BID PRN 04/07 1000 AC 04/07 INH 04/07 2159 1040 Albuterol Sulfate 3 ML BID 04/07 2200 AC INH Albuterol Sulfate 3 ML Q4P PRN 04/06 1315 DC 04/07 INH 1039 Apixaban 2.5 MG BID 04/06 2200 AC 04/07 PO 0930 Aspirin 81 MG DAILY 04/03 1000 AC 04/07 PO 0929 Carvedilol 25 MG BID 04/03 1000 AC 04/07 PO 0929 Ferrous Gluconate 325 MG DAILY 04/03 1000 AC 04/07 PO 0929 Furosemide 40 MG DAILY 04/03 1000 AC 04/07 IV 0929 Guaifenesin 10 ML Q6P PRN 04/07 0530 AC PO Guaifenesin 600 MG Q12 04/06 1000 AC 04/07 PO 0929 Hydromorphone HCl 2 MG ONCE ONE 04/07 1215 DC 04/07 PO 04/07 1216 1228 Hydromorphone HCl 2 MG QPM PRN 04/03 0257 AC 04/06 PO 2158 Hydroxychloroquine 200 MG BID 04/02 220 AC 04/07 Sulfate PO 0929 Levothyroxine Sodium 0.025 MG DAILY AC 04/03 0700 AC 04/07 PO 0608 Lisinopril 10 MG DAILY 04/03 1000 AC 04/07 PO 0930 Omeprazole 40 MG DAILY AC 04/03 0700 AC 04/07 PO 0608 Prednisone 10 MG DAILY 04/03 1000 AC 04/07 PO 0929 Sertraline HCl 25 MG DAILY 04/06 1642 AC 04/07 PO 0930 Results Last 48 Hrs of Labs/Mics: Laboratory Tests 04/07/17 0635: Anion Gap 8, Estimated GFR 36 L, BUN/Creatinine Ratio 28.6 H, CBC w Diff NO MAN DIFF REQ, RBC 2.84 L, MCV 87.0, MCH 27.8, RDW 19.4 H, MPV 9.8, Gran % 77.1 H, Lymphocytes % 17.2 L, Monocytes % 5.7, Eosinophils % 0, Basophils % 0, Absolute Granulocytes 7.1 H, Absolute Lymphocytes 1.6, Absolute Monocytes 0.5, Absolute Eosinophils 0, Absolute Basophils 0, PUBS MCHC 32.0 L 04/06/17 2105: Troponin I 0.51 *H 04/06/17 1205: Troponin I 0.59 *H 04/06/17 0630: Anion Gap 8, Estimated GFR 36 L, BUN/Creatinine Ratio 29.3 H, Troponin I 0.55 *H, CBC w Diff NO MAN DIFF REQ, RBC 2.92 L, MCV 86.5, MCH 28.2, RDW 19.1 H, MPV 9.6, Gran % 77.7 H, Lymphocytes % 15.8 L, Monocytes % 5.3, Eosinophils % 0.7, Basophils % 0.5, Absolute Granulocytes 7.9 H, Absolute Lymphocytes 1.6, Absolute Monocytes 0.5, Absolute Eosinophils 0.1, Absolute Basophils 0.1, PUBS MCHC 32.6 L Microbiology 04/05 1700 NASOPHARYN: Influenza Virus A & B Rapid Smear - COMP Recent Imaging Studies: CXR (04/06/2017: 1. Small bibasilar effusions, right increased since thoracentesis 04/04/2017. 2. Mild vascular congestion. Bibasilar subsegmental atelectasis. Assessment/Plan Assessment/Plan [id number] w/ hx anxiety/depression, RA on steroid Rx, previous DVT on Eliquis ( apixaban), obesity, TACO on CPAP, chronic anemia, HTN, , LVH, & diastolic dysfunction, who presented to the ED on our recommendation after her VNA contacted our office to relate Sx of progressive SOB & weight gain w/ CXR findings of cardiomegaly, moderate bilateral pleural effusions, and associated airspace disease. Based on her history is suspected that her presentation is most consistent with acute on chronic diastolic heart failure (HFpEF). Suspect that the modest troponin I elevation is on the basis of type II myocardial infarction and not an acute coronary syndrome. Positive fluid balance over the weekend and yesterday's CXR revealed vascular congestion. Recommendations: * Continue on telemetry. * Continue daily IV diuresis with furosemide 40 mg and consider additional IV furosemide 40 mg IV 1 today. * Follow-up CXR. * Consider transfusion to maintain a low matter above 8.0 g/dl. * Follow-up magnesium. * DVT prophylaxis. Continue telemetry? Yes
--- NOTE | 2017-04-07 13:37 | PN- Pulmonary ---
Subjective HPI/Critical Care Issues: Patient seen and examined this morning. She appears to have episodes of aspiration during taking her pills. She has some wheezing and she feels short of breath still. Objective Current Medications: Current Medications Sig/Rick Start time Last Medication Dose Route Stop Time Status Admin Acetaminophen 650 MG .STK-MED ONE 04/06 1959 DC PO 04/06 2000 Acetaminophen 650 MG .STK-MED ONE 04/06 1455 DC PO 04/06 1456 Acetaminophen 650 MG Q4P PRN 04/03 1200 AC 04/07 PO 0608 Acetylcysteine 2 ML BID 04/07 2200 AC INH Acetylcysteine 6,486.371 MG ONCE ONE 04/07 1442 CAN Dextrose/Water 1,000 ML IV 04/08 07 Acetylcysteine 2 ML BID PRN 04/07 1000 AC 04/07 INH 04/07 2159 1040 Albuterol Sulfate 3 ML BID 04/07 2200 AC INH Albuterol Sulfate 3 ML Q4P PRN 04/06 1315 DC 04/07 INH 1039 Apixaban 2.5 MG BID 04/06 2200 AC 04/07 PO 0930 Aspirin 81 MG DAILY 04/03 1000 AC 04/07 PO 0929 Carvedilol 25 MG BID 04/03 1000 AC 04/07 PO 0929 Ferrous Gluconate 325 MG DAILY 04/03 1000 AC 04/07 PO 0929 Furosemide 40 MG DAILY 04/03 1000 AC 04/07 IV 0929 Guaifenesin 10 ML Q6P PRN 04/07 0530 AC PO Guaifenesin 600 MG Q12 04/06 1000 AC 04/07 PO 0929 Hydromorphone HCl 2 MG ONCE ONE 04/07 1215 DC 04/07 PO 04/07 1216 1228 Hydromorphone HCl 2 MG QPM PRN 04/03 0257 AC 04/06 PO 2158 Hydroxychloroquine 200 MG BID 04/02 2202 AC 04/07 Sulfate PO 0929 Levothyroxine Sodium 0.025 MG DAILY AC 04/03 0700 AC 04/07 PO 0608 Lisinopril 10 MG DAILY 04/03 1000 AC 04/07 PO 0930 Omeprazole 40 MG DAILY AC 04/03 0700 AC 04/07 PO 0608 Prednisone 10 MG DAILY 04/03 1000 AC 04/07 PO 0929 Sertraline HCl 25 MG DAILY 04/06 1642 AC 04/07 PO 0930 Vital Signs & I&O Last 24 Hrs of Vitals and I&O: Vital Signs Date Time Temp Pulse Resp B/P B/P Pulse O2 O2 Flow FiO2 Mean Ox Delivery Rate 04/07 1059 94 Room Air 04/07 0930 68 116/54 04/07 0929 68 116/54 04/07 0830 Room Air 04/07 0600 97.9 68 20 116/54 94 Room Air 04/07 0145 95 Room Air 04/07 0010 62 98/50 04/07 0000 Room Air 04/06 2302 98.6 62 16 98/60 95 Room Air 04/06 1940 95 Room Air Room Air 04/06 1600 96 Room Air 04/06 1448 98.4 66 18 104/50 94 Room Air Intake & Output 04/07 1600 04/07 0800 04/07 0000 Intake Total 110 350 Output Total Balance 110 350 Intake, IV 10 Intake, Oral 100 350 Number 0 Bowel Movements Exam Other Physical Findings: Generally - Awake, alert and comfortable without distress Head and neck - normocephalic, atraumatic, EOMI grossly intact Cardiovascular - S1, S2 Lungs -diminished breath sounds at bilateral bases and right mid chest wall Abdomen - Bowel sounds positive, soft, non-tender Extremities -edematous Results Last 24 Hrs of Lab Results: Laboratory Tests 04/07/17 0635: Anion Gap 8, Estimated GFR 36 L, BUN/Creatinine Ratio 28.6 H, CBC w Diff NO MAN DIFF REQ, RBC 2.84 L, MCV 87.0, MCH 27.8, RDW 19.4 H, MPV 9.8, Gran % 77.1 H, Lymphocytes % 17.2 L, Monocytes % 5.7, Eosinophils % 0, Basophils % 0, Absolute Granulocytes 7.1 H, Absolute Lymphocytes 1.6, Absolute Monocytes 0.5, Absolute Eosinophils 0, Absolute Basophils 0, PUBS MCHC 32.0 L 04/06/17 2105: Troponin I 0.51 *H Impression/Plan Impression/Plan Impression/Plan: Impression 76 year old woman -pleural effusions likely chf/fluid overload -?aspiration Plan -mucomyst for secretions nebulized bid for 72 hrs -check CXR today - GNR in sputum cx -ensure CYTOLOGY was sent with pleural fluid - appears transudative DVT prophylaxis at all times
--- NOTE | 2017-04-07 13:51 | RADIOLOGY REPORT ---
EXAMINATION: CR PORTABLE CHEST CLINICAL INFORMATION: Shortness of breath. Productive cough. Presumptive diagnosis of pleural effusion COMPARISON: Multiple prior chest x-rays, most recent of which is dated 04/06/2017. TECHNIQUE: Portable AP semierect view of the chest was obtained. FINDINGS: The cardiomediastinal silhouette is enlarged. Low lung volumes are seen with patchy parenchymal opacities in both lung bases, unchanged from prior exam. Small bilateral pleural effusions are also unchanged. No pulmonary edema or pneumothorax noted. Central vascular congestion persists, slightly improved. Osteopenia is seen. Prominent degenerative change in the left shoulder joint more than the right shoulder joint. IMPRESSION: 1. No significant change in bilateral lower lobe atelectasis or pneumonia. 2. No significant change in small bilateral pleural effusions. 3. Improving central vascular congestion.
[2017-04-07 15:09] VITALS: BP 100/50
--- NOTE | 2017-04-07 16:12 | Cons- Infect Disease ---
General Information and HPI Consulting Request Date of Consult: 04/07/17 Requested By: Miryam Luevano MD Reason for Consult: abx advise; s/p thoracentesis; sputum cx + GNR; patient w/ multiple abx allergies Source of Information: patient, primary team Exam Limitations: clinical condition History of Present Illness: 76-year-old female with past medical history of stage II diastolic dysfunction, hypertension, history of DVT currently on Eliquis, anemia, obstructive sleep apnea noncompliant with CPAP, anxiety, depression, rheumatoid arthritis on prednisone, diverticulosis, hemorrhoids admitted 04/02/17 with dyspnea on exertion; treated for decompensated CHF. Patient is a poor historian. She denied on admission palpitations, sweating, nausea or vomiting. Patient noted increasing bilateral lower extremity edema. Patient was recently hospitalized at [facility] for pneumonia after which she was discharged to [facility] in [place] where her Lasix was stopped. Currently feels fatigued; reports productive cough (yellow greenish sputum); s/p thoracentesis on 04/04; sputum culture growing GNR and ID consult called for further advice. No fever or chills. Low grade temp on 04/05 100.1F. Allergies/Medications Allergies: Coded Allergies: Penicillins (SWELLING, RASH, ITCH 04/02/17) aspirin (RASH 04/02/17) cephalexin (From KEFLEX) (ITCHY 04/02/17) codeine (ITCH 04/02/17) levofloxacin (From LEVAQUIN) (RASH 04/02/17) oxaprozin (From DAYPRO) (RASH 04/02/17) propoxyphene (UNKNOWN REACTION TO DARVOCET 04/02/17) Home Med List: Apixaban (Eliquis) 2.5 MG TABLET 1 TAB PO BID BLOOD THINNER (Reported) Calcium Carbonate/Vitamin D3 (Os-Mehdi 500+D3 Caplet) 500 MG-200 TABLET 1 TAB PO DAILY SUPPLEMENT (Reported) Carvedilol 25 MG TABLET 1 TAB PO BID HEART/BP (Reported) Ergocalciferol (Vitamin D2) (Vitamin D2) 50,000 UNIT CAPSULE 1 CAP PO QWED SUPPLEMENT (Reported) Ferrous Sulfate 325 MG (65 MG IRON) TABLET 1 TAB PO QAM SUPPLEMENT (Reported) Hydromorphone HCl 2 MG TABLET 1-2 TAB PO QHS PRN PAIN (Reported) Hydroxychloroquine Sulfate 200 MG TABLET 1 TAB PO BID RA (Reported) Levothyroxine Sodium 25 MCG TABLET 1 TAB PO DAILY AC THYROID (Reported) Lisinopril 10 MG TABLET 1 TAB PO QAM BP (Reported) Omeprazole 40 MG CAPSULE. 1 CAP PO QAM GI (Reported) Prednisone 10 MG TABLET 1 TAB PO QAM STEROID (Reported) Sertraline HCl 25 MG TABLET 1 TAB PO QAM MENTAL HEALTH (Reported) Current Medications: Current Medications Sig/Rick Start time Last Medication Dose Route Stop Time Status Admin Acetaminophen 650 MG .STK-MED ONE 04/07 0607 DC PO 04/07 0608 Acetaminophen 650 MG .STK-MED ONE 04/06 195 DC PO 04/06 2000 Acetaminophen 650 MG Q4P PRN 04/03 1200 AC 04/07 PO 0608 Acetylcysteine 2 ML BID 04/07 2200 AC INH Acetylcysteine 6,486.371 MG ONCE ONE 04/07 1442 CAN Dextrose/Water 1,000 ML IV 04/08 0713 Acetylcysteine 2 ML BID PRN 04/07 1000 AC 04/07 INH 04/07 2159 1040 Albuterol Sulfate 3 ML BID 04/07 2200 AC INH Albuterol Sulfate 3 ML Q4P PRN 04/06 1315 DC 04/07 INH 1039 Apixaban 2.5 MG BID 04/06 2200 AC 04/07 PO 0930 Aspirin 81 MG DAILY 04/03 1000 AC 04/07 PO 0929 Carvedilol 25 MG BID 04/03 1000 AC 04/07 PO 0929 Ferrous Gluconate 325 MG DAILY 04/03 1000 AC 04/07 PO 0929 Furosemide 40 MG ONCE ONE 04/07 1600 DC IV 04/07 1601 Furosemide 40 MG DAILY 04/03 1000 AC 04/07 IV 0929 Guaifenesin 10 ML Q6P PRN 04/07 0530 AC PO Guaifenesin 600 MG Q12 04/06 1000 AC 04/07 PO 0929 Hydromorphone HCl 2 MG ONCE ONE 04/07 1215 DC 04/07 PO 04/07 1216 1228 Hydromorphone HCl 2 MG QPM PRN 04/03 0257 AC 04/06 PO 2158 Hydroxychloroquine 200 MG BID 04/02 2202 AC 04/07 Sulfate PO 0929 Levothyroxine Sodium 0.025 MG DAILY AC 04/03 0700 AC 04/07 PO 0608 Lisinopril 10 MG DAILY 04/03 1000 AC 04/07 PO 0930 Omeprazole 40 MG DAILY AC 04/03 0700 AC 04/07 PO 0608 Prednisone 10 MG DAILY 04/03 1000 AC 04/07 PO 0929 Sertraline HCl 25 MG DAILY 04/06 1642 AC 04/07 PO 0930 Past History Travel History Traveled to [place] past 21 day No Medical History Blood Transfusion Hx: No Neurological: migraine EENT: cataracts Cardiovascular: CHF, hypertension, hyperlipidemia Respiratory: pneumonia, DYSPNEA Gastrointestinal: diverticulitis, HEMORRHOIDS BOWEL RESECTION COLOSTOMY Hepatic: NONE Renal: 3+PROTEIN IN URINE [id number] Musculoskeletal: rheumatoid arthritis Psychiatric: anxiety, depression, insomnia Endocrine: vitamin D deficiency Blood Disorders: anemia Cancer(s): NONE DATA COORDINATOR/Reproductive: NONE History of MRSA: No History of VRE: No History of CDIFF: No Isolation History: Standard Pneumonia Vaccine: 12/23/11 Influenza Vaccine: 12/22/16 Surgical History Surgical History: colon resection, hysterectomy, laminectomy Family History Relations & Conditions If Any: Relation not specified for: *No pertinent family history Psychosocial History Where Do You Live? Home Services at Home: [facility] Primary Language: Sami Smoking Status: Former Smoker Functional Ability Ambulation: cane IADLs Needs Assist: shopping, housework, food prep. Review of Systems Comments 12 points reviewed as noted, otherwise neg. Exam & Diagnostic Data Last 24 Hrs of Vital Signs/I&O Vital Signs Date Time Temp Pulse Resp B/P B/P Pulse O2 O2 Flow FiO2 Mean Ox Delivery Rate 04/07 1509 98.4 64 16 100/50 95 Room Air 04/07 1059 94 Room Air 04/07 0930 68 116/54 04/07 0929 68 116/54 04/07 0830 Room Air 04/07 0600 97.9 68 20 116/54 94 Room Air 04/07 0145 95 Room Air 04/07 0010 62 98/50 04/07 0000 Room Air 04/06 2302 98.6 62 16 98/60 95 Room Air 04/06 1940 95 Room Air Room Air Intake & Output 04/07 1600 04/07 0800 04/07 0000 Intake Total 100 110 350 Output Total Balance 100 110 350 Intake, IV 10 Intake, Oral 100 100 350 Number 0 Bowel Movements Physical Exam Other Physical Findings: Generally - Awake, alert and comfortable without distress Head and neck - normocephalic, atraumatic, sclera anicteric Cardiovascular - S1, S2 Lungs -diminished breath sounds b/l, no rales Abdomen - Bowel sounds positive, soft, non-tender, colostomy LLQ Extremities -edematous Skin pale Last 24 Hours of Lab Results: Laboratory Tests 04/07 04/06 0635 2105 Chemistry Sodium (137 - 145 mmol/L) 139 Potassium (3.5 - 5.1 mmol/L) 4.1 Chloride (98 - 107 mmol/L) 108 H Carbon Dioxide (22 - 30 mmol/L) 24 Anion Gap (5 - 16) 8 BUN (7 - 17 mg/dL) 40 H Creatinine (0.5 - 1.0 mg/dL) 1.4 H Estimated GFR (>60 ml/min) 36 L BUN/Creatinine Ratio (7 - 25 %) 28.6 H Troponin I (< 0.11 ng/ml) 0.51 *H Hematology CBC w Diff NO MAN DIFF REQ WBC (4.8 - 10.8 /CUMM) 9.2 RBC (4.20 - 5.40 /CUMM) 2.84 L Hgb (12.0 - 16.0 G/DL) 7.9 L Hct (37 - 47 %) 24.6 L MCV (81.0 - 99.0 FL) 87.0 MCH (27.0 - 31.0 PG) 27.8 RDW (11.5 - 14.5 %) 19.4 H Plt Count (130 - 400 /CUMM) 160 MPV (7.4 - 10.4 FL) 9.8 Gran % (42.2 - 75.2 %) 77.1 H Lymphocytes % (20.5 - 51.1 %) 17.2 L Monocytes % (1.7 - 9.3 %) 5.7 Eosinophils % (0 - 5 %) 0 Basophils % (0.0 - 2.0 %) 0 Absolute Granulocytes (1.4 - 6.5 /CUMM) 7.1 H Absolute Lymphocytes (1.2 - 3.4 /CUMM) 1.6 Absolute Monocytes (0.10 - 0.60 /CUMM) 0.5 Absolute Eosinophils (0.0 - 0.7 /CUMM) 0 Absolute Basophils (0.0 - 0.2 /CUMM) 0 PUBS MCHC (33.0 - 37.0 G/DL) 32.0 L Last 24 Hours of Rubin Results: atient : RYAN CHRISTENSEN Acct: [id number] DR: Miryam Luevano MD Birthdate: [birth year] Age/Sex: 76/F Unit: [id number] Loc: [facility] 173- [id number] Status : ADM IN SPEC #: [id number] DYLAN: 04/06/17 STATUS: RES RECD: 04/06/[address]: Miryam Luevano MD SOURCE: LOWER RESP ENTR: 04/06/[address]: Tong CURTIS,Corrina SPDESC: SPUTUM Jerald CURTIS, [employer] ORDERED: LOWER RESPIRATO Procedure Result > GRAM STAIN Final 04/06/17-1054 WHITE BLOOD CELLS MANY SQUAMOUS CELLS RARE GRAM POSITIVE COCCI MODERATE GRAM NEGATIVE RODS MODERATE GRAM NEGATIVE COCCI MANY GRAM POSITIVE RODS RARE > LOWER RESPIRATORY CULTURE Preliminary 04/07/17-1013 Mixed peter after 1 day with Light growth of: GRAM NEGATIVE RODS Identification and sensitivities to follow Diagnostic Data Recent Imaging Findings: CXR 04/07 IMPRESSION: 1. No significant change in bilateral lower lobe atelectasis or pneumonia. 2. No significant change in small bilateral pleural effusions. 3. Improving central vascular congestion. DICTATED BY: Sreedhar CURTIS,Kristina Brooks DATE/TIME DICTATED:04/07/171345 [employer]OR [employer] EMISSIONS:TED DATE/TIME TRANSCRIBED:04/07/171345 Assessment/Plan Assessment/Plan Impression: 76-year-old female with past medical history of stage II diastolic dysfunction, hypertension, history of DVT currently on Eliquis, anemia, obstructive sleep apnea noncompliant with CPAP, anxiety, depression, rheumatoid arthritis on prednisone, diverticulosis, hemorrhoids admitted 04/02/17 with dyspnea on exertion; treated for decompensated CHF; s/p thoracentesis 04/04 (pleural fluid NGTD/transudate); increasing cough; eval acute bronchitis/pneumonia. No fever. No leukocytosis Multiple abx allergies Suggestion: 1. CTX 1 gm daily pending sputum cx. Monitor for side effects (reported skin itching w/ cephalexin) 2. Trend CBC; consider procal level in am. 3. Aspiration precautions. swallow eval in am. Consult Acknowledgment - Thank you for your consult request.
[2017-04-07 22:54] VITALS: BP 132/70
[2017-04-08 06:55] VITALS: BP 136/70
--- NOTE | 2017-04-08 07:21 | PN- Housestaff ---
Subjective Follow-up For: CHF NSTEMI Anemia Tele-Events Since Last Visit: NSR 62-63 Subjective: Patient visited today, ill looking lady, was lying in bed comfortably in mild distress, was alert and oriented. Was complaining of no change in shortness of breathing, yellow-greenish phlegm, pleuritic chest pain with cough, and generalized pain. She also noted wheezing. Ceftriaxone IV was restarted yesterday after gram-negative kai in his sputum, pending sensitivity/identification of the culture. No fever or chills, no other events. Contacted [facility] after consent. Review of Systems Constitutional: Reports: see HPI. Respiratory: Reports: cough, short of breath, sputum production, wheezing. Musculoskeletal: Reports: see HPI (generalized pain). Objective Last 24 Hrs of Vital Signs/I&O Vital Signs Date Time Temp Pulse Resp B/P B/P Pulse O2 O2 Flow FiO2 Mean Ox Delivery Rate 04/08 0951 Room Air Room Air 04/08 0938 66 136/76 04/08 0937 66 131/76 04/08 0828 92 Room Air Room Air 04/08 0655 97.9 66 20 136/70 94 Room Air 04/08 0203 94 Room Air 04/08 0000 Room Air 04/07 2254 98.6 63 24 132/70 96 Room Air 04/07 2043 68 132/70 04/07 1845 95 Room Air 04/07 1509 98.4 64 16 100/50 95 Room Air Intake & Output 04/08 1600 04/08 0800 04/08 0000 Intake Total 120 120 Output Total 1 Balance 120 119 Intake, Oral 120 120 Number 0 Bowel Movements Output, Stool 1 Patient 143 lb Weight Physical Exam General Appearance: Alert, Oriented X3, Cooperative, Mild Distress HEENT: Atraumatic, EOMI, Mucous Membr. moist/pink Cardiovascular: Regular Rate, Normal S1, Normal S2, No Murmurs Lungs: crackles and wheezing Abdomen: Normal Bowel Sounds, Soft, No Tenderness Neurological: Normal Speech Current Medications: Current Medications Sig/Rick Start time Last Medication Dose Route Stop Time Status Admin Acetaminophen 650 MG .STK-MED ONE 04/08 0457 DC PO 04/08 0458 Acetaminophen 650 MG .STK-MED ONE 04/08 0210 DC PO 04/08 0211 Acetaminophen 650 MG Q4P PRN 04/03 1200 AC 01/16 PO 0558 Acetylcysteine 2 ML BID 04/07 2200 AC 04/07 INH 1845 Acetylcysteine 2 ML BID PRN 04/07 1000 DC 04/07 INH 04/07 2159 1040 Albuterol Sulfate 3 ML BID 04/07 2200 AC 04/08 INH 0804 Apixaban 2.5 MG BID 04/06 2200 AC 04/08 PO 0937 Aspirin 81 MG DAILY 04/03 1000 AC 04/08 PO 0937 Carvedilol 25 MG BID 04/03 1000 AC 04/08 PO 0937 Ceftriaxone Sodium 1,000 MG Q24H 04/07 1800 DC 04/07 IV 2043 Ciprofloxacin 500 MG DAILY 04/08 1330 UNVr PO 04/12 1329 Ferrous Gluconate 325 MG DAILY 04/03 1000 AC 04/08 PO 0937 Furosemide 40 MG ONCE ONE 04/07 1600 DC 04/07 IV 04/07 1601 1617 Furosemide 40 MG DAILY 04/03 1000 AC 04/08 IV 0937 Guaifenesin 10 ML Q6P PRN 04/07 0530 AC 04/08 PO 0854 Guaifenesin 600 MG Q12 04/06 1000 AC 04/08 PO 0937 Hydromorphone HCl 2 MG ONCE ONE 04/08 0900 DC 04/08 PO 04/08 0901 1146 Hydromorphone HCl 2 MG QPM PRN 04/03 0257 AC 04/07 PO 2221 Hydroxychloroquine 200 MG BID 04/02 220 AC 04/08 Sulfate PO 0937 Levothyroxine Sodium 0.025 MG DAILY AC 04/03 0700 AC 04/08 PO 0558 Lidocaine 1 PAT ONCE PRN 04/08 0445 AC 04/08 EXT 0558 Lisinopril 10 MG DAILY 04/03 1000 AC 04/08 PO 0938 Omeprazole 40 MG DAILY AC 04/03 0700 AC 04/08 PO 0558 Prednisone 10 MG DAILY 04/03 1000 AC 04/08 PO 0937 Sertraline HCl 25 MG DAILY 04/06 1642 AC 04/08 PO 0938 Last 24 Hrs of Lab/Rubin Results Last 24 Hrs of Labs/Mics: Laboratory Tests 04/08/17 0650: Anion Gap 9, Estimated GFR 34 L, BUN/Creatinine Ratio 25.3 H, CBC w Diff NO MAN DIFF REQ, RBC 3.02 L, MCV 86.5, MCH 28.0, RDW 19.1 H, MPV 9.7, Gran % 73.2 , Lymphocytes % 16.5 L, Monocytes % 7.3, Eosinophils % 2.6, Basophils % 0.4, Absolute Granulocytes 6.9 H, Absolute Lymphocytes 1.6, Absolute Monocytes 0.7 H, Absolute Eosinophils 0.2, Absolute Basophils 0, PUBS MCHC 32.4 L Assessment/Plan Assessment: Patient is a 76-year-old female with significant past medical history of diastolic dysfunction, hypertension, anemia, anxiety presenting this admission with dyspnea on exertion, extensive edema, bilateral pleural effusions and elevated troponins with EKG changes in the inferior and lateral leads (T-wave inversion) and anemia. Acute CHF Decompensated diastolic heart failure. CXR shows bibasilar effusions, right increased since thora and mild vascular congestion. thoracentesis removed 1L According to IR, post thoracentesis we have restarted eliquis 2.5 bid continue lasix 40 mg iv daily, no new echo changes seen - Continue carvedilol 25 mg twice a day - Appreciate cardiology recommendations Dyspnea, cough Patient had dyspnea, cough with sputum and culture revealed Pseudomonas ow grade fever wbc increase. Flu swab negative. - mucomyst and incentive spriometry - Ciprofluxacin PO NSTEMI Atypical chest pain with elevated troponin and EKG changes showing evolving T- wave inversions. She is complaining of chest pain again this morning. Repeat troponin was 0.55, stable from last time. -Trop trended down to .51 - Cardiology consult appreciated - Atorvastatin, aspirin Anemia acute on chronic Black stool in colostomy bag Likely due to iron supplements silvino godinez - Continue iron supplement Generalized pain Patient notes that she has generalized pain that she attributes to osteoarthritis Patient is on eliquis. She is a history of DVT. Venous doppler lower ext negative Gave 650 mg Tylenol every 4 hours when necessary patient on dilaudid 2mg qpm as well Urine cultures unclear why done but are postivie gnr no symptoms so will not treat Disposition as per PT can only tolerate 15 mins. will continue to monitor for outpatient planning down the road DVT prophylaxis with apixiban Heart healthy diet DNR/DNI Problem List: 1. CHF (congestive heart failure) 2. Pneumonia 3. NSTEMI (non-ST elevated myocardial infarction) Pain Ratin Pain Location: generalized Pain Goal: Pain 4 or less Pain Plan: Continue current plan with tynelol and PRN dilaudid Tomorrow's Labs & Rationales: CBC BEP
[2017-04-08 07:51] LABS: ABSOLUTE BASOPHIL COUNT 0 /CUMM (0.0-0.2); ABSOLUTE EOSINOPHIL COUNT 0.2 /CUMM (0.0-0.7); ABSOLUTE GRANULOCYTE CT 6.9 /CUMM (1.4-6.5); ABSOLUTE LYMPH COUNT 1.6 /CUMM (1.2-3.4); ABSOLUTE MONOCYTE COUNT 0.7 /CUMM (0.10-0.60); BASOPHIL % 0.4 % (0.0-2.0); EOSINOPHIL % 2.6 % (0-5); GRANULOCYTE % 73.2 % (42.2-75.2); HEMATOCRIT 26.1 % (37-47); MEAN CORPUSCULAR HGB CONC 32.4 G/DL (33.0-37.0); MEAN CORPUSCULAR VOLUME 86.5 FL (81.0-99.0); MEAN PLATELET VOLUME 9.7 FL (7.4-10.4); PLATELET COUNT 192 /CUMM (130-400); RBC DISTRIBUTION WIDTH 19.1 % (11.5-14.5); RED BLOOD CELL CT 3.02 /CUMM (4.20-5.40); WHITE BLOOD CELL COUNT 9.5 /CUMM (4.8-10.8)
--- NOTE | 2017-04-08 11:00 | PN- Pulmonary ---
Subjective HPI/Critical Care Issues: pt seen and examined cxr stable no new issues wants to get some sleep Objective Current Medications: Current Medications Sig/Rick Start time Last Medication Dose Route Stop Time Status Admin Acetaminophen 650 MG .STK-MED ONE 04/08 0210 DC PO 04/08 0211 Acetaminophen 650 MG Q4P PRN 04/03 1200 AC 04/08 PO 0558 Acetylcysteine 2 ML BID 04/07 2200 AC 04/07 INH 1845 Acetylcysteine 2 ML BID PRN 04/07 1000 DC 04/07 INH 04/07 2159 1040 Albuterol Sulfate 3 ML BID 04/07 2200 AC 04/08 INH 0804 Albuterol Sulfate 3 ML Q4P PRN 04/06 1315 DC 04/07 INH 1039 Apixaban 2.5 MG BID 04/06 2200 AC 04/08 PO 0937 Aspirin 81 MG DAILY 04/03 1000 AC 04/08 PO 0937 Carvedilol 25 MG BID 04/03 1000 AC 04/08 PO 0937 Ceftriaxone Sodium 1,000 MG Q24H 04/07 1800 AC 04/07 IV 2043 Ferrous Gluconate 325 MG DAILY 04/03 1000 AC 04/08 PO 0937 Furosemide 40 MG ONCE ONE 04/07 1600 DC 04/07 IV 04/07 1601 1617 Furosemide 40 MG DAILY 04/03 1000 AC 04/08 IV 0937 Guaifenesin 10 ML Q6P PRN 04/07 0530 AC 04/08 PO 0854 Guaifenesin 600 MG Q12 04/06 1000 AC 04/08 PO 0937 Hydromorphone HCl 2 MG ONCE ONE 04/08 0900 DC PO 04/08 0901 Hydromorphone HCl 2 MG ONCE ONE 04/07 1215 DC 04/07 PO 04/07 1216 1228 Hydromorphone HCl 2 MG QPM PRN 04/03 0257 AC 04/07 PO 2221 Hydroxychloroquine 200 MG BID 04/02 2202 AC 04/08 Sulfate PO 0937 Levothyroxine Sodium 0.025 MG DAILY AC 04/03 0700 AC 04/08 PO 0558 Lidocaine 1 PAT ONCE PRN 04/08 0445 AC 04/08 EXT 0558 Lisinopril 10 MG DAILY 04/03 1000 AC 04/08 PO 0938 Omeprazole 40 MG DAILY AC 04/03 0700 AC 04/08 PO 0558 Prednisone 10 MG DAILY 04/03 1000 AC 04/08 PO 0937 Sertraline HCl 25 MG DAILY 04/06 1642 AC 04/08 PO 0938 Vital Signs & I&O Last 24 Hrs of Vitals and I&O: Vital Signs Date Time Temp Pulse Resp B/P B/P Pulse O2 O2 Flow FiO2 Mean Ox Delivery Rate 04/08 0951 Room Air Room Air 04/08 0938 66 136/76 04/08 0937 66 131/76 04/08 0828 92 Room Air Room Air 04/08 0655 97.9 66 20 136/70 94 Room Air 04/08 0203 94 Room Air 04/08 0000 Room Air 04/07 2254 98.6 63 24 132/70 96 Room Air 04/07 2043 68 132/70 04/07 1845 95 Room Air 04/07 1509 98.4 64 16 100/50 95 Room Air Intake & Output 04/08 1600 04/08 0800 04/08 0000 Intake Total 120 120 Output Total 1 Balance 120 119 Intake, Oral 120 120 Number 0 Bowel Movements Output, Stool 1 Patient 143 lb Weight Exam Other Physical Findings: Generally - Awake, alert and comfortable without distress Head and neck - normocephalic, atraumatic, EOMI grossly intact Cardiovascular - S1, S2 Lungs -diminished breath sounds at bilateral bases and right mid chest wall Abdomen - Bowel sounds positive, soft, non-tender Extremities -edematous Results Last 24 Hrs of Lab Results: Laboratory Tests 04/08/17 0650: Anion Gap 9, Estimated GFR 34 L, BUN/Creatinine Ratio 25.3 H, CBC w Diff NO MAN DIFF REQ, RBC 3.02 L, MCV 86.5, MCH 28.0, RDW 19.1 H, MPV 9.7, Gran % 73.2 , Lymphocytes % 16.5 L, Monocytes % 7.3, Eosinophils % 2.6, Basophils % 0.4, Absolute Granulocytes 6.9 H, Absolute Lymphocytes 1.6, Absolute Monocytes 0.7 H, Absolute Eosinophils 0.2, Absolute Basophils 0, PUBS MCHC 32.4 L Impression/Plan Impression/Plan Impression/Plan: Impression 76 year old woman -pleural effusions likely chf/fluid overload -?aspiration Plan -mucomyst for secretions nebulized bid for 72 hrs -f/u ID recs for abx -f/u CYTOLOGY was sent with pleural fluid - appears transudative DVT prophylaxis at all times
--- NOTE | 2017-04-08 11:00 | PN- Infect Dx ---
Subjective Subjective: Afebrile on steroids. She feels poorly with shortness of breath, a productive cough and chest heaviness. Objective Last 24 Hrs of Vital Signs/I&O Vital Signs Date Time Temp Pulse Resp B/P B/P Pulse O2 O2 Flow FiO2 Mean Ox Delivery Rate 04/08 0951 Room Air Room Air 04/08 0938 66 136/76 04/08 0937 66 131/76 04/08 0828 92 Room Air Room Air 04/08 0655 97.9 66 20 136/70 94 Room Air 04/08 0203 94 Room Air 04/08 0000 Room Air 04/07 2254 98.6 63 24 132/70 96 Room Air 04/07 2043 68 132/70 04/07 1845 95 Room Air 04/07 1509 98.4 64 16 100/50 95 Room Air 04/07 1059 94 Room Air Intake & Output 04/08 1600 04/08 0800 04/08 0000 Intake Total 120 120 Output Total 1 Balance 120 119 Intake, Oral 120 120 Number 0 Bowel Movements Output, Stool 1 Patient 143 lb Weight Physical Exam Other Physical Findings: She appears uncomfortable but in no acute distress Lungs mild expiratory wheezes Heart regular rhythm with no murmur Extremities no cyanosis, clubbing or edema Results Last 24 Hours of Lab Results: Laboratory Tests 04/08 0650 Chemistry Sodium (137 - 145 mmol/L) 140 Potassium (3.5 - 5.1 mmol/L) 4.2 Chloride (98 - 107 mmol/L) 105 Carbon Dioxide (22 - 30 mmol/L) 26 Anion Gap (5 - 16) 9 BUN (7 - 17 mg/dL) 38 H Creatinine (0.5 - 1.0 mg/dL) 1.5 H Estimated GFR (>60 ml/min) 34 L BUN/Creatinine Ratio (7 - 25 %) 25.3 H Hematology CBC w Diff NO MAN DIFF REQ WBC (4.8 - 10.8 /CUMM) 9.5 RBC (4.20 - 5.40 /CUMM) 3.02 L Hgb (12.0 - 16.0 G/DL) 8.5 L Hct (37 - 47 %) 26.1 L MCV (81.0 - 99.0 FL) 86.5 MCH (27.0 - 31.0 PG) 28.0 RDW (11.5 - 14.5 %) 19.1 H Plt Count (130 - 400 /CUMM) 192 MPV (7.4 - 10.4 FL) 9.7 Gran % (42.2 - 75.2 %) 73.2 Lymphocytes % (20.5 - 51.1 %) 16.5 L Monocytes % (1.7 - 9.3 %) 7.3 Eosinophils % (0 - 5 %) 2.6 Basophils % (0.0 - 2.0 %) 0.4 Absolute Granulocytes (1.4 - 6.5 /CUMM) 6.9 H Absolute Lymphocytes (1.2 - 3.4 /CUMM) 1.6 Absolute Monocytes (0.10 - 0.60 /CUMM) 0.7 H Absolute Eosinophils (0.0 - 0.7 /CUMM) 0.2 Absolute Basophils (0.0 - 0.2 /CUMM) 0 PUBS MCHC (33.0 - 37.0 G/DL) 32.4 L Last 24 Hours of Rubin Results: Sputum culture April 06 positive for Pseudomonas sensitive to all antibiotics tested and yeast Recent Imaging Studies: Chest x-ray April 07 bibasilar densities without change Assessment/Plan Impression: Stable with temperatures and white blood cell count remaining normal (on steroids) on Ceftriaxone, begun yesterday for gram-negative rods in the sputum culture, which have been identified as Pseudomonas. Given her worsening symptoms feel that she should be treated for a possible pneumonia/bronchitis and her antibiotics will need to be adjusted based on the sputum culture. Of note her record reports an allergy to Levaquin, but she has tolerated Ciprofloxacin. Suggestion: 1. Discontinue Ceftriaxone 2. Begin Ciprofloxacin 500 mg po every 24 hours
--- NOTE | 2017-04-08 13:30 | PN- Att Addend ---
Attending MD Review Statement Attending Statement Attending MD Statement: examined this patient, discuss w/resident/PA/MONEY EXAMINER, agreed w/resident/PA/MONEY EXAMINER, reviewed EMR data (avail), discussed w/nursing, discussed w/ case mgmt Attending Assessment/Plan: Laboratory Tests 04/08/17 0650: Anion Gap 9, Estimated GFR 34 L, BUN/Creatinine Ratio 25.3 H, CBC w Diff NO MAN DIFF REQ, RBC 3.02 L, MCV 86.5, MCH 28.0, RDW 19.1 H, MPV 9.7, Gran % 73.2 , Lymphocytes % 16.5 L, Monocytes % 7.3, Eosinophils % 2.6, Basophils % 0.4, Absolute Granulocytes 6.9 H, Absolute Lymphocytes 1.6, Absolute Monocytes 0.7 H, Absolute Eosinophils 0.2, Absolute Basophils 0, PUBS MCHC 32.4 L Vital Signs Date Time Temp Pulse Resp B/P B/P Pulse O2 O2 Flow FiO2 Mean Ox Delivery Rate 04/08 0951 Room Air Room Air 04/08 0938 66 136/76 04/08 0937 66 131/76 04/08 0828 92 Room Air Room Air 04/08 0655 97.9 66 20 136/70 94 Room Air 04/08 0203 94 Room Air 04/08 0000 Room Air 04/07 2254 98.6 63 24 132/70 96 Room Air 04/07 2043 68 132/70 04/07 1845 95 Room Air 04/07 1509 98.4 64 16 100/50 95 Room Air 76 yr old female with pmh of diastolic chf, dvt on eliquis since july of 2016, RA on prednisone, 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 Pt had mild bump in trop which is stable. Pt also complained of wt gain over the last few weeks for which she was given lasix at home by [facility] per cardiology recommendations. Pt was found to have b/l plerual effusion and was admitted for above symptoms and pleural effusion. CT scan shows b/l pleural effusion with rt side greater than left. Acute chf diastolic exac- cont on lasix 40mg iv daily and cardiology following the pt closely with us. F/u on serial trop reveals stable torponins and we are not checking it anymore. f/u on echo results revealed normal EF but restrictive diastolic dysfunction. Type 2 VA- secondary to chf. monitor on tele .cardiology following. trop stable. will stop checking them. Pleural effusion b/l- repeat cxr reviewed. d/w pulmonary. pt underwent thoracentesis on friday. Looks transudative. pulmonology follwoing. Sputum culture growing GNR. DVT- on eliquis now . UTI - urine culture grew E coli . On ceftriaxone. will get records from outside hospital regarding previous hospitalization. pt still having issues with breathing . d/w pt and parking supervisor the care plan. Urine culture growing - GNR- will f/u on culture results. pt did not complain of urinary symptoms. Colostomy site examined looks ok. RA- cont on home prednisone dose Hypothyroidism- TSH wnl- cont home dose of levothyroxine.
[2017-04-08 15:30] VITALS: BP 128/72
--- NOTE | 2017-04-08 17:17 | PN- Cardiology ---
Subjective Subjective: Feels about the same. Objective Vital Signs and I&Os Vital Signs Date Time Temp Pulse Resp B/P B/P Pulse O2 O2 Flow FiO2 Mean Ox Delivery Rate 04/08 1600 94 Room Air 04/08 1530 98.3 68 20 128/72 92 04/08 0951 Room Air Room Air 04/08 0938 66 136/76 04/08 0937 66 131/76 04/08 0828 92 Room Air Room Air 04/08 0655 97.9 66 20 136/70 94 Room Air 04/08 0203 94 Room Air 04/08 0000 Room Air 04/07 2254 98.6 63 24 132/70 96 Room Air 04/07 2043 68 132/70 04/07 1845 95 Room Air Intake & Output 04/08 1600 04/08 0800 04/08 0000 04/07 1600 04/07 0800 04/07 0000 Intake Total 120 120 100 110 350 Output Total 1 Balance 120 119 100 110 350 Intake, IV 10 Intake, Oral 120 120 100 100 350 Number 0 0 Bowel Movements Output, Stool 1 Patient 143 lb Weight Physical Exam: Well-developed, overweight elderly female in no acute distress with nasal oxygen in place. Vital signs: See above. Neck: No JVD, no bruits. Lungs: Decreased breath sounds at the bases bilaterally and mild expiratory wheeze. Heart: S1, S2 with no murmur, gallop, or rub. Abdomen: Soft, nontender, positive bowel sounds. Extremities: No edema. Current Medications: Current Medications Sig/Rick Start time Last Medication Dose Route Stop Time Status Admin Acetaminophen 650 MG .STK-MED ONE 04/08 0457 DC PO 04/08 0458 Acetaminophen 650 MG .STK-MED ONE 04/08 0210 DC PO 04/08 0211 Acetaminophen 650 MG Q4P PRN 04/03 1200 AC 04/08 PO 0558 Acetylcysteine 2 ML BID 04/07 2199 AC 04/07 INH 1845 Acetylcysteine 2 ML BID PRN 04/07 1000 DC 04/07 INH 04/07 2159 1040 Albuterol Sulfate 3 ML BID 04/07 2200 AC 04/08 INH 0804 Apixaban 2.5 MG BID 04/060 AC 04/08 PO 0937 Aspirin 81 MG DAILY 04/03 1000 AC 04/08 PO 0937 Carvedilol 25 MG BID 04/03 1000 AC 04/08 PO 0937 Ceftriaxone Sodium 1,000 MG Q24H 04/07 1800 DC 04/07 IV 2043 Ciprofloxacin 500 MG Q24H 04/08 1330 AC PO 04/12 1329 Ferrous Gluconate 325 MG DAILY 04/03 1000 AC 04/08 PO 0937 Furosemide 40 MG DAILY 04/03 1000 AC 04/08 IV 0937 Guaifenesin 10 ML .STK-MED ONE 04/08 0850 DC PO 04/08 0851 Guaifenesin 10 ML Q6P PRN 04/07 0530 AC 04/08 PO 0854 Guaifenesin 600 MG Q12 04/06 1000 AC 04/08 PO 0937 Hydromorphone HCl 2 MG ONCE ONE 04/08 0900 DC 04/08 PO 04/08 0901 1146 Hydromorphone HCl 2 MG QPM PRN 04/03 0257 AC 04/07 PO 2221 Hydroxychloroquine 200 MG BID 04/02 2202 AC 04/08 Sulfate PO 0937 Levothyroxine Sodium 0.025 MG DAILY AC 04/03 0700 AC 04/08 PO 0558 Lidocaine 1 PAT ONCE PRN 04/08 0445 AC 04/08 EXT 0558 Lisinopril 10 MG DAILY 04/03 1000 AC 04/08 PO 0938 Omeprazole 40 MG DAILY AC 04/03 0700 AC 04/08 PO 0558 Prednisone 10 MG DAILY 04/03 1000 AC 04/08 PO 0937 Sertraline HCl 25 MG DAILY 04/06 1642 AC 04/08 PO 0938 Results Last 48 Hrs of Labs/Mics: Laboratory Tests 04/08/17 0650: Anion Gap 9, Estimated GFR 34 L, BUN/Creatinine Ratio 25.3 H, CBC w Diff NO MAN DIFF REQ, RBC 3.02 L, MCV 86.5, MCH 28.0, RDW 19.1 H, MPV 9.7, Gran % 73.2 , Lymphocytes % 16.5 L, Monocytes % 7.3, Eosinophils % 2.6, Basophils % 0.4, Absolute Granulocytes 6.9 H, Absolute Lymphocytes 1.6, Absolute Monocytes 0.7 H, Absolute Eosinophils 0.2, Absolute Basophils 0, PUBS MCHC 32.4 L 04/07/17 0635: Anion Gap 8, Estimated GFR 36 L, BUN/Creatinine Ratio 28.6 H, CBC w Diff NO MAN DIFF REQ, RBC 2.84 L, MCV 87.0, MCH 27.8, RDW 19.4 H, MPV 9.8, Gran % 77.1 H, Lymphocytes % 17.2 L, Monocytes % 5.7, Eosinophils % 0, Basophils % 0, Absolute Granulocytes 7.1 H, Absolute Lymphocytes 1.6, Absolute Monocytes 0.5, Absolute Eosinophils 0, Absolute Basophils 0, PUBS MCHC 32.0 L 04/06/17 2105: Troponin I 0.51 *H Recent Imaging Studies: CXR 04/07/2017: 1. No significant change in bilateral lower lobe atelectasis or pneumonia. 2. No significant change in small bilateral pleural effusions. 3. Improving central vascular congestion. Assessment/Plan Assessment/Plan [id number] w/ hx anxiety/depression, RA on steroids, previous DVT on Eliquis ( apixaban), obesity, TACO on CPAP, chronic anemia, HTN, , LVH, & diastolic dysfunction, who presented to the ED on our recommendation after her VNA contacted our office to relate Sx of progressive SOB & weight gain w/ CXR findings of cardiomegaly, moderate bilateral pleural effusions, and associated airspace disease. Based on her history is suspected that her presentation is most consistent with acute on chronic diastolic heart failure (HFpEF). Suspect that the modest troponin I elevation is on the basis of type II myocardial infarction and not an acute coronary syndrome. Positive fluid balance, but not clear if inputs/outputs are accurate. CXR (04/07/2017) shows less vascular congestion. Recommendations: * Continue on telemetry. * Continue daily IV diuresis with furosemide 40 mg and consider additional IV furosemide 40 mg IV 1 today. * Inputs/outputs do not appear accurate. Check daily weights. * Follow-up in infectious disease and pulmonary recommendations. * Consider transfusion to maintain at or above 8.0 g/dl. * Follow-up magnesium. * DVT prophylaxis. Continue telemetry? Yes
[2017-04-08 23:15] VITALS: BP 112/58
[2017-04-09 06:57] VITALS: BP 136/72
--- NOTE | 2017-04-09 07:37 | PN- Housestaff ---
Subjective Follow-up For: CHF NSTEMI Anemia Subjective: Patient visited today, ill looking lady was lying in bed comfortably in no acute distress, was alert and oriented. She complained of abdominal pain, which was not new. Also complained from generalized pain. No fever or chills, no shortness of breathing, no chest pain, no other events. We will check pro BNP today as studies shown that use of serial serum BNP concentrations to monitor the clinical course of a patient provides a more reliable guide to management than a single measurement. Review of Systems Constitutional: Reports: see HPI. Objective Last 24 Hrs of Vital Signs/I&O Vital Signs Date Time Temp Pulse Resp B/P B/P Pulse O2 O2 Flow FiO2 Mean Ox Delivery Rate 04/10 0638 98.0 63 20 164/70 95 Room Air 04/10 0013 93 Room Air 04/10 0000 Room Air 04/09 2334 98.6 63 22 118/70 93 Room Air 04/09 2110 61 152/74 04/09 1910 94 Room Air 04/09 1600 Room Air 04/09 1508 98.0 63 20 118/88 93 Room Air 04/09 1001 62 136/72 04/09 1001 623 136/72 04/09 0851 92 Room Air 04/09 0800 92 Room Air Room Air Intake & Output 04/10 0800 04/10 0000 04/09 1600 Intake Total 110 354 400 Output Total Balance 110 354 400 Intake, IV 10 Intake, Oral 100 354 400 Number 1 1 Bowel Movements Patient 129 lb Weight Weight Chair scale Measurement Method Physical Exam General Appearance: Alert, Oriented X3, Cooperative, No Acute Distress, Ill Skin: No Significant Lesion Skin Temp/Moisture Exam: Warm/Dry Sepsis Skin Exam (color): Normal for Ethnicity HEENT: Atraumatic, EOMI, Mucous Membr. moist/pink Cardiovascular: Regular Rate, Normal S1, Normal S2 Lungs: decreased air entry bilaterally Abdomen: tenderness in deep palpation, colostomy in place Extremities: No Edema Current Medications: Current Medications Sig/Rick Start time Last Medication Dose Route Stop Time Status Admin Acetaminophen 650 MG Q4P PRN 04/03 1200 AC 04/09 PO 0507 Acetylcysteine 2 ML BID 04/07 2200 DC 04/09 INH 0831 Albuterol Sulfate 3 ML BID 04/07 2199 AC 04/10 INH 0000 Apixaban 2.5 MG BID 04/06 2199 AC 04/09 PO 2108 Aspirin 81 MG DAILY 04/03 1000 AC 04/09 PO 1000 Carvedilol 25 MG BID 04/03 1000 AC 04/09 PO 2110 Ciprofloxacin 500 MG Q24H 04/08 1330 AC 04/09 PO 04/12 1329 1511 Ferrous Gluconate 325 MG DAILY 04/03 1000 AC 04/09 PO 1000 Furosemide 40 MG 7:30 AM, & 4:30 PM 04/09 1630 AC 04/09 IV 1618 Furosemide 40 MG DAILY 04/03 1000 DC 04/09 IV 1000 Guaifenesin 10 ML .STK-MED ONE 04/09 1107 DC PO 04/09 1108 Guaifenesin 10 ML Q6P PRN 04/07 0530 AC 04/10 PO 0338 Guaifenesin 600 MG Q12 04/06 1000 AC 04/09 PO 2108 Hydromorphone HCl 2 MG Q8 PRN 04/09 1418 AC 04/09 PO 2334 Hydromorphone HCl 2 MG QPM PRN 04/03 0257 ME 04/08 PO 2140 Hydroxychloroquine 200 MG BID 04/02 2202 AC 04/09 Sulfate PO 2108 Levothyroxine Sodium 0.025 MG DAILY AC 04/03 0700 AC 04/10 PO 0706 Lidocaine 1 PAT ONCE PRN 04/08 0445 04/08 EXT 0558 Lisinopril 10 MG DAILY 04/03 1000 AC 04/09 PO 1001 Omeprazole 40 MG DAILY AC 04/03 0700 AC 04/10 PO 0706 Polyethylene Glycol 17 GM DAILY 04/09 1411 AC 04/09 PO 2108 Prednisone 10 MG DAILY 04/03 1000 04/09 PO 1000 Senna/Docusate Sodium 2 TAB DAILY NEEDED PRN 04/09 0815 04/09 PO 1000 Sertraline HCl 25 MG DAILY 04/06 1642 AC 04/09 PO 1000 Last 24 Hrs of Lab/Rubin Results Last 24 Hrs of Labs/Mics: Laboratory Tests 04/10/17 0620: Sodium Pending, Potassium Pending, Chloride Pending, Carbon Dioxide Pending, Anion Gap Pending, BUN Pending, Creatinine Pending, BUN/Creatinine Ratio Pending , CBC w Diff Pending, WBC Pending, RBC Pending, Hgb Pending, Hct Pending, MCV Pending, MCH Pending, RDW Pending, Plt Count Pending, MPV Pending, PUBS MCHC Pending Microbiology 04/09 1899 STOOL: Clostridium difficile Toxin A & B - RECD Assessment/Plan Assessment: Patient is a 76-year-old female with significant past medical history of diastolic dysfunction, hypertension, anemia, anxiety presenting this admission with dyspnea on exertion, extensive edema, bilateral pleural effusions and elevated troponins with EKG changes in the inferior and lateral leads (T-wave inversion) and anemia. Acute CHF Decompensated diastolic heart failure. CXR shows bibasilar effusions, right increased since thora and mild vascular congestion. thoracentesis removed 1L According to IR, post thoracentesis we have restarted eliquis 2.5 bid continue lasix 40 mg iv daily, no new echo changes seen - increase Lasix 40 BID - Continue carvedilol 25 mg twice a day - Appreciate cardiology recommendations Dyspnea, cough Patient had dyspnea, cough with sputum and culture revealed Pseudomonas ow grade fever wbc increase. Flu swab negative. - mucomyst and incentive spriometry - Continue Ciprofluxacin PO NSTEMI Atypical chest pain with elevated troponin and EKG changes showing evolving T- wave inversions. She is complaining of chest pain again this morning. Repeat troponin was 0.55, stable from last time. -Trop trended down to .51 - Cardiology consult appreciated - Atorvastatin, aspirin Anemia acute on chronic Black stool in colostomy bag Likely due to iron supplements guaic negatvie - Continue iron supplement Generalized pain Patient notes that she has generalized pain that she attributes to osteoarthritis Patient is on eliquis. She is a history of DVT. Venous doppler lower ext negative Gave 650 mg Tylenol every 4 hours when necessary patient on dilaudid 2mg qpm as well Urine cultures unclear why done but are postivie gnr no symptoms so will not treat Patient recieved ceftriaxone initially which would cover the E Coli. Disposition Baseline ambulates with walker. will continue to monitor for outpatient planning down the road DVT prophylaxis with apixiban Heart healthy diet DNR/DNI Problem List: 1. Pneumonia 2. CHF (congestive heart failure) 3. Pleural effusion Pain Ratin Pain Location: Abdominal, generalized Pain Goal: Pain 4 or less Pain Plan: Dilaudid TID PRN increased Tomorrow's Labs & Rationales: CBC BEP
[2017-04-09 08:19] LABS: ABSOLUTE BASOPHIL COUNT 0 /CUMM (0.0-0.2); ABSOLUTE EOSINOPHIL COUNT 0.1 /CUMM (0.0-0.7); ABSOLUTE GRANULOCYTE CT 5.6 /CUMM (1.4-6.5); ABSOLUTE LYMPH COUNT 1.6 /CUMM (1.2-3.4); ABSOLUTE MONOCYTE COUNT 0.5 /CUMM (0.10-0.60); BASOPHIL % 0.4 % (0.0-2.0); EOSINOPHIL % 1.9 % (0-5); GRANULOCYTE % 70.5 % (42.2-75.2); MEAN CORPUSCULAR HGB 27.5 PG (27.0-31.0); MEAN CORPUSCULAR HGB CONC 31.8 G/DL (33.0-37.0); MEAN CORPUSCULAR VOLUME 86.5 FL (81.0-99.0); MEAN PLATELET VOLUME 9.6 FL (7.4-10.4); PLATELET COUNT 197 /CUMM (130-400); RBC DISTRIBUTION WIDTH 18.5 % (11.5-14.5); RED BLOOD CELL CT 3.01 /CUMM (4.20-5.40); WHITE BLOOD CELL COUNT 7.9 /CUMM (4.8-10.8)
--- NOTE | 2017-04-09 10:07 | PN- Infect Dx ---
Subjective Subjective: Afebrile. She feels poorly with shortness of breath with any exertion. She continues to report a cough, productive of yellow sputum, and chest heaviness. Objective Last 24 Hrs of Vital Signs/I&O Vital Signs Date Time Temp Pulse Resp B/P B/P Pulse O2 O2 Flow FiO2 Mean Ox Delivery Rate 04/09 1001 62 136/72 04/09 1001 623 136/72 04/09 0851 92 Room Air 04/09 0657 98.2 62 20 136/72 94 Room Air 04/09 0131 95 Room Air 04/09 0000 Room Air 04/08 2315 98.3 60 22 112/58 93 Room Air 04/08 2139 60 112/58 04/08 2050 96 Room Air Room Air 04/08 1600 94 Room Air 04/08 1530 98.3 68 20 128/72 92 Intake & Output 04/09 1600 04/09 0800 04/09 0000 Intake Total 120 120 Output Total Balance 120 120 Intake, Oral 120 120 Physical Exam Other Physical Findings: She appears more comfortable in no acute distress Lungs are clear Heart regular rhythm with no murmur Extremities no cyanosis, clubbing or edema Results Last 24 Hours of Lab Results: Laboratory Tests 04/09 0640 Chemistry Sodium (137 - 145 mmol/L) 141 Potassium (3.5 - 5.1 mmol/L) 4.1 Chloride (98 - 107 mmol/L) 104 Carbon Dioxide (22 - 30 mmol/L) 27 Anion Gap (5 - 16) 11 BUN (7 - 17 mg/dL) 39 H Creatinine (0.5 - 1.0 mg/dL) 1.5 H Estimated GFR (>60 ml/min) 34 L BUN/Creatinine Ratio (7 - 25 %) 26.0 H Gqu-W-Pywmuoorhxg Pept (<125 pg/mL) 68243 H Hematology CBC w Diff NO MAN DIFF REQ WBC (4.8 - 10.8 /CUMM) 7.9 RBC (4.20 - 5.40 /CUMM) 3.01 L Hgb (12.0 - 16.0 G/DL) 8.3 L Hct (37 - 47 %) 26.0 L MCV (81.0 - 99.0 FL) 86.5 MCH (27.0 - 31.0 PG) 27.5 RDW (11.5 - 14.5 %) 18.5 H Plt Count (130 - 400 /CUMM) 197 MPV (7.4 - 10.4 FL) 9.6 Gran % (42.2 - 75.2 %) 70.5 Lymphocytes % (20.5 - 51.1 %) 20.6 Monocytes % (1.7 - 9.3 %) 6.6 Eosinophils % (0 - 5 %) 1.9 Basophils % (0.0 - 2.0 %) 0.4 Absolute Granulocytes (1.4 - 6.5 /CUMM) 5.6 Absolute Lymphocytes (1.2 - 3.4 /CUMM) 1.6 Absolute Monocytes (0.10 - 0.60 /CUMM) 0.5 Absolute Eosinophils (0.0 - 0.7 /CUMM) 0.1 Absolute Basophils (0.0 - 0.2 /CUMM) 0 PUBS MCHC (33.0 - 37.0 G/DL) 31.8 L Last 24 Hours of Rubin Results: No new cultures Assessment/Plan Impression: Stable, with temperatures and white blood cell count remaining normal (on steroids), now on Ciprofloxacin, Day 1 of treatment for Pseudomonas, isolated from her sputum culture, suggesting possible bronchitis or pneumonia. Suggestion: 1. Continue Ciprofloxacin
--- NOTE | 2017-04-09 11:06 | PN- Pulmonary ---
Subjective HPI/Critical Care Issues: pt seen and examined respiratory status is stable dyspnea associated with abdominal discomfort Objective Current Medications: Current Medications Sig/Rick Start time Last Medication Dose Route Stop Time Status Admin Acetaminophen 650 MG .STK-MED ONE 04/08 2301 DC PO 04/08 2302 Acetaminophen 650 MG Q4P PRN 04/03 1200 AC 04/09 PO 0507 Acetylcysteine 2 ML BID 04/07 2200 AC 04/09 INH 0831 Albuterol Sulfate 3 ML BID 04/07 2200 AC 04/09 INH 0831 Apixaban 2.5 MG BID 04/06 2200 AC 04/09 PO 1000 Aspirin 81 MG DAILY 04/03 1000 AC 04/09 PO 1000 Carvedilol 25 MG BID 04/03 1000 AC 04/09 PO 1001 Ceftriaxone Sodium 1,000 MG Q24H 04/07 1800 DC 04/07 IV 2043 Ciprofloxacin 500 MG Q24H 04/08 1330 AC 04/08 PO 04/12 1329 1903 Ferrous Gluconate 325 MG DAILY 04/03 1000 AC 04/09 PO 1000 Furosemide 40 MG ONCE ONE 04/08 1730 DC 04/08 IV 04/08 1731 1903 Furosemide 40 MG DAILY 04/03 1000 AC 04/09 IV 1000 Guaifenesin 10 ML .STK-MED ONE 04/08 1906 DC PO 04/08 1907 Guaifenesin 10 ML Q6P PRN 04/07 0530 AC 04/09 PO 0507 Guaifenesin 600 MG Q12 04/06 1000 AC 04/09 PO 1000 Hydromorphone HCl 2 MG QPM PRN 04/03 0257 AC 04/08 PO 2140 Hydroxychloroquine 200 MG BID 04/02 2202 AC 04/09 Sulfate PO 1000 Levothyroxine Sodium 0.025 MG DAILY AC 04/03 0700 AC 04/09 PO 0507 Lidocaine 1 PAT ONCE PRN 04/08 0445 AC 04/08 EXT 0558 Lisinopril 10 MG DAILY 04/03 1000 AC 04/09 PO 1001 Omeprazole 40 MG DAILY AC 04/03 0700 AC 04/09 PO 0507 Prednisone 10 MG DAILY 04/03 1000 AC 04/09 PO 1000 Senna/Docusate Sodium 2 TAB DAILY NEEDED PRN 04/09 0815 AC 04/09 PO 1000 Sertraline HCl 25 MG DAILY 04/06 1642 AC 04/09 PO 1000 Vital Signs & I&O Last 24 Hrs of Vitals and I&O: Vital Signs Date Time Temp Pulse Resp B/P B/P Pulse O2 O2 Flow FiO2 Mean Ox Delivery Rate 04/09 1001 62 136/72 04/09 1001 623 136/72 04/09 0851 92 Room Air 04/09 0657 98.2 62 20 136/72 94 Room Air 04/09 0131 95 Room Air 04/09 0000 Room Air 04/08 2315 98.3 60 22 112/58 93 Room Air 04/08 2139 60 112/58 04/08 2050 96 Room Air Room Air 04/08 1600 94 Room Air 04/08 1530 98.3 68 20 128/72 92 Intake & Output 04/09 1600 04/09 0800 04/09 0000 Intake Total 120 120 Output Total Balance 120 120 Intake, Oral 120 120 Exam Other Physical Findings: gen awake and alert heent ncat cvs s1, s2 lungs diminished at bases abd soft, some chronic tenderness ext without edema Results Last 24 Hrs of Lab Results: Laboratory Tests 04/09/17 0640: Anion Gap 11, Estimated GFR 34 L, BUN/Creatinine Ratio 26.0 H, Pro-B- Natriuretic Pept 04217 H, CBC w Diff NO MAN DIFF REQ, RBC 3.01 L, MCV 86.5, MCH 27.5, RDW 18.5 H, MPV 9.6, Gran % 70.5, Lymphocytes % 20.6, Monocytes % 6.6 , Eosinophils % 1.9, Basophils % 0.4, Absolute Granulocytes 5.6, Absolute Lymphocytes 1.6, Absolute Monocytes 0.5, Absolute Eosinophils 0.1, Absolute Basophils 0, PUBS MCHC 31.8 L Impression/Plan Impression/Plan Impression/Plan: Impression 76 year old woman -pleural effusions likely chf/fluid overload -?aspiration Plan -mucomyst for secretions nebulized bid for 72 hrs -f/u ID recs for abx - on ciprofloxacin -transudative pleural fluid -abdominal discomfort is chronic on chronic pain meds DVT prophylaxis at all times
--- NOTE | 2017-04-09 11:49 | PN- Att Addend ---
Attending MD Review Statement Attending Statement Attending MD Statement: examined this patient, discuss w/resident/PA/CODIFIER, agreed w/resident/PA/CODIFIER, reviewed EMR data (avail), discussed w/nursing, discussed w/ case mgmt Attending Assessment/Plan: Laboratory Tests 04/09/17 0640: Anion Gap 11, Estimated GFR 34 L, BUN/Creatinine Ratio 26.0 H, Pro-B- Natriuretic Pept 72115 H, CBC w Diff NO MAN DIFF REQ, RBC 3.01 L, MCV 86.5, MCH 27.5, RDW 18.5 H, MPV 9.6, Gran % 70.5, Lymphocytes % 20.6, Monocytes % 6.6 , Eosinophils % 1.9, Basophils % 0.4, Absolute Granulocytes 5.6, Absolute Lymphocytes 1.6, Absolute Monocytes 0.5, Absolute Eosinophils 0.1, Absolute Basophils 0, PUBS MCHC 31.8 L Vital Signs Date Time Temp Pulse Resp B/P B/P Pulse O2 O2 Flow FiO2 Mean Ox Delivery Rate 04/09 1001 62 136/72 04/09 1001 623 136/72 04/09 0851 92 Room Air 04/09 0657 98.2 62 20 136/72 94 Room Air 04/09 0131 95 Room Air 04/09 0000 Room Air 04/08 2315 98.3 60 22 112/58 93 Room Air 04/08 2139 60 112/58 04/08 2050 96 Room Air Room Air 04/08 1600 94 Room Air 04/08 1530 98.3 68 20 128/72 92 76 yr old female with pmh of diastolic chf, dvt on eliquis since july of 2016, RA on prednisone, 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 Pt had mild bump in trop which is stable. Pt also complained of wt gain over the last few weeks for which she was given lasix at home by [facility] per cardiology recommendations. Pt lives at home and has Aides to help her at home. She was not very mobile at home and was using commode at home. Pt was found to have b/l plerual effusion and was admitted for above symptoms and pleural effusion. CT scan shows b/l pleural effusion with rt side greater than left. Acute chf diastolic exac- cont on lasix 40mg iv daily and cardiology following the pt closely with us. F/u on serial trop reveals stable torponins and we are not checking it anymore. f/u on echo results revealed normal EF but restrictive diastolic dysfunction. Will review with cardiology echo findings of AV area and high RVSP of 116. Reviewed pts records from [facility] . Pnuemonia- Sputum culture growing Pseudomonas, Pt switched to ciprofloxacin since 04/08/17. Type 2 MT- secondary to chf. monitor on tele .cardiology following. trop stable. will stop checking them. Pleural effusion b/l- repeat cxr reviewed. d/w pulmonary. pt underwent thoracentesis on friday. Looks transudative. pulmonology follwoing. Sputum culture grew Psuedomonas and Pleural fluid culture negative so far. DVT- on eliquis now . UTI - urine culture grew E coli . On ceftriaxone. pt still having issues with breathing but feels it is slightly better. Disposition- d/w pt about going to rehab. pt refuses [facility]. Encouraged her to participate with Physical therapy.
--- NOTE | 2017-04-09 12:22 | PN- Cardiology ---
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 Inputs/outputs inaccurate, but weight today (129 lbs) down ~14 lbs since admission (143 lbs). Objective Vital Signs and I&Os Vital Signs Date Time Temp Pulse Resp B/P B/P Pulse O2 O2 Flow FiO2 Mean Ox Delivery Rate 04/09 1001 62 136/72 04/09 1001 623 136/72 04/09 0851 92 Room Air 04/09 0657 98.2 62 20 136/72 94 Room Air 04/09 0131 95 Room Air 04/09 0000 Room Air 04/08 2315 98.3 60 22 112/58 93 Room Air 04/08 2139 60 112/58 04/08 2050 96 Room Air Room Air 04/08 1600 94 Room Air 04/08 1530 98.3 68 20 128/72 92 Intake & Output 04/09 1600 04/09 0800 04/09 0000 04/08 1600 04/08 0800 04/08 0000 Intake Total 120 120 360 120 120 Output Total 1 Balance 120 120 360 120 119 Intake, Oral 120 120 360 120 120 Number 0 0 Bowel Movements Output, Stool 1 Patient 129 lb 143 lb Weight Weight Chair scale Measurement Method Physical Exam: Well-developed, overweight elderly female in no acute distress with nasal oxygen in place. Vital signs: See above. Neck: No JVD, no bruits. Lungs: Decreased breath sounds at the bases bilaterally and mild expiratory wheeze. Heart: S1, S2 with no murmur, gallop, or rub. Abdomen: Soft, nontender, positive bowel sounds. Extremities: No edema. Current Medications: Current Medications Sig/Rick Start time Last Medication Dose Route Stop Time Status Admin Acetaminophen 650 MG .STK-MED ONE 04/08 2301 DC PO 04/08 2302 Acetaminophen 650 MG Q4P PRN 04/03 1200 AC 04/09 PO 0507 Acetylcysteine 2 ML BID 04/07 2200 AC 04/09 INH 0831 Albuterol Sulfate 3 ML BID 04/07 2200 AC 04/09 INH 0831 Apixaban 2.5 MG BID 04/06 2200 AC 04/09 PO 1000 Aspirin 81 MG DAILY 04/03 1000 AC 04/09 PO 1000 Carvedilol 25 MG BID 04/03 1000 AC 04/09 PO 1001 Ceftriaxone Sodium 1,000 MG Q24H 04/07 1800 DC 04/07 IV 2043 Ciprofloxacin 500 MG Q24H 04/08 1330 AC 04/08 PO 04/12 1329 1903 Ferrous Gluconate 325 MG DAILY 04/03 1000 AC 04/09 PO 1000 Furosemide 40 MG BID 04/09 2200 UNVr IV Furosemide 40 MG ONCE ONE 04/08 1730 DC 04/08 IV 04/08 1731 1903 Furosemide 40 MG DAILY 04/03 1000 DC 04/09 IV 1000 Guaifenesin 10 ML .STK-MED ONE 04/08 1906 DC PO 04/08 1907 Guaifenesin 10 ML Q6P PRN 04/07 0530 AC 04/09 PO 1139 Guaifenesin 600 MG Q12 04/06 1000 AC 04/09 PO 1000 Hydromorphone HCl 2 MG QPM PRN 04/03 0257 AC 04/08 PO 2140 Hydroxychloroquine 200 MG BID 04/02 2202 AC 04/09 Sulfate PO 1000 Levothyroxine Sodium 0.025 MG DAILY AC 04/03 0700 AC 04/09 PO 0507 Lidocaine 1 PAT ONCE PRN 04/08 0445 AC 04/08 EXT 0558 Lisinopril 10 MG DAILY 04/03 1000 AC 04/09 PO 1001 Omeprazole 40 MG DAILY AC 04/03 0700 AC 04/09 PO 0507 Prednisone 10 MG DAILY 04/03 1000 AC 04/09 PO 1000 Senna/Docusate Sodium 2 TAB DAILY NEEDED PRN 04/09 0815 AC 04/09 PO 1000 Sertraline HCl 25 MG DAILY 04/06 1642 AC 04/09 PO 1000 Results Last 48 Hrs of Labs/Mics: Laboratory Tests 04/09/17 0640: Anion Gap 11, Estimated GFR 34 L, BUN/Creatinine Ratio 26.0 H, Pro-B- Natriuretic Pept 47981 H, CBC w Diff NO MAN DIFF REQ, RBC 3.01 L, MCV 86.5, MCH 27.5, RDW 18.5 H, MPV 9.6, Gran % 70.5, Lymphocytes % 20.6, Monocytes % 6.6 , Eosinophils % 1.9, Basophils % 0.4, Absolute Granulocytes 5.6, Absolute Lymphocytes 1.6, Absolute Monocytes 0.5, Absolute Eosinophils 0.1, Absolute Basophils 0, PUBS MCHC 31.8 L 04/08/17 0650: Anion Gap 9, Estimated GFR 34 L, BUN/Creatinine Ratio 25.3 H, CBC w Diff NO MAN DIFF REQ, RBC 3.02 L, MCV 86.5, MCH 28.0, RDW 19.1 H, MPV 9.7, Gran % 73.2 , Lymphocytes % 16.5 L, Monocytes % 7.3, Eosinophils % 2.6, Basophils % 0.4, Absolute Granulocytes 6.9 H, Absolute Lymphocytes 1.6, Absolute Monocytes 0.7 H, Absolute Eosinophils 0.2, Absolute Basophils 0, PUBS MCHC 32.4 L Recent Imaging Studies: CXR CXR 04/07/2017: 1. No significant change in bilateral lower lobe atelectasis or pneumonia. 2. No significant change in small bilateral pleural effusions. 3. Improving central vascular congestion. Assessment/Plan Assessment/Plan [id number] w/ hx anxiety/depression, RA on steroids, previous DVT on Eliquis ( apixaban), obesity, TACO on CPAP, chronic anemia, HTN, , LVH, & diastolic dysfunction, who presented to the ED on our recommendation after her VNA contacted our office to relate Sx of progressive SOB & weight gain w/ CXR findings of cardiomegaly, moderate bilateral pleural effusions, and associated airspace disease. Based on her history is suspected that her presentation is most consistent with acute on chronic diastolic heart failure (HFpEF), but also developed productive cough c/w possible pneumonia which is being treated.. Suspect that the modest troponin I elevation is on the basis of type II myocardial infarction and not an acute coronary syndrome. Inaccurate inputs/outputs, weight down significantly and CXR (04/07/2017) showed less vascular congestion. Recommendations: * Continue on telemetry. * Continue daily IV diuresis with furosemide 40 mg and consider additional IV furosemide 40 mg IV 1 today. * Continue to check daily weights with the same scale. * Follow-up in infectious disease and pulmonary recommendations. * Consider transfusion to maintain at or above 8.0 g/dl. * Follow-up magnesium. * DVT prophylaxis. Continue telemetry? Yes
[2017-04-09 15:08] VITALS: BP 118/88
[2017-04-09 23:34] VITALS: BP 118/70
[2017-04-10 06:38] VITALS: BP 164/70
--- NOTE | 2017-04-10 08:03 | PN- Housestaff ---
Subjective Follow-up For: CHF Pneumonia on Cipro Pleaural effusion s/p thora Anemia Tele-Events Since Last Visit: NSR SB 58-65 Subjective: Patient visited today, illl looking lady was lying in bed in no acute distress, was alert and oriented. She reported slightly improvement in cough and sob, sat was 91%, put on o2 1 lit and requested CXR. but reported increased abdominal pain, pending C Dif result. No fever or chills, no shortness of breathing, no chest pain, no other events. Review of Systems Constitutional: Reports: see HPI. Respiratory: Reports: cough, short of breath, sputum production. Gastrointestinal: Reports: abdominal pain. Musculoskeletal: Reports: see HPI (pain). Objective Last 24 Hrs of Vital Signs/I&O Vital Signs Date Time Temp Pulse Resp B/P B/P Pulse O2 O2 Flow FiO2 Mean Ox Delivery Rate 04/10 0638 98.0 63 20 164/70 95 Room Air 04/10 0013 93 Room Air 04/10 0000 Room Air 04/09 2334 98.6 63 22 118/70 93 Room Air 04/09 2110 61 152/74 04/09 1910 94 Room Air 04/09 1600 Room Air 04/09 1508 98.0 63 20 118/88 93 Room Air 04/09 1001 62 136/72 04/09 1001 623 136/72 04/09 0851 92 Room Air Intake & Output 04/10 1600 04/10 0800 04/10 0000 Intake Total 110 354 Output Total Balance 110 354 Intake, IV 10 Intake, Oral 100 354 Number 1 Bowel Movements Physical Exam General Appearance: Alert, Oriented X3, Cooperative, No Acute Distress, ill looking Skin: No Significant Lesion Skin Temp/Moisture Exam: Warm/Dry Sepsis Skin Exam (color): Normal for Ethnicity HEENT: Atraumatic, EOMI Cardiovascular: Regular Rate, Normal S1, Normal S2 Lungs: decreased air entry. decreased breathing sounds bilaterally. Abdomen: Normal Bowel Sounds, Soft, Colostomy in place tenderness in deep palpation Neurological: Normal Speech Extremities: No Edema Current Medications: Current Medications Sig/Rick Start time Last Medication Dose Route Stop Time Status Admin Acetaminophen 650 MG Q4P PRN 04/03 1200 AC 04/09 PO 0507 Acetylcysteine 2 ML BID 04/07 2199 DC 04/09 INH 0831 Albuterol Sulfate 3 ML BID 04/07 2199 AC 04/10 INH 0807 Apixaban 2.5 MG BID 04/06 2200 AC 04/09 PO 2108 Aspirin 81 MG DAILY 04/03 1000 AC 04/09 PO 1000 Carvedilol 25 MG BID 04/03 1000 AC 04/09 PO 2110 Ciprofloxacin 500 MG Q24H 04/08 1330 AC 04/09 PO 04/12 1329 1511 Ferrous Gluconate 325 MG DAILY 04/03 1000 AC 04/09 PO 1000 Furosemide 40 MG 7:30 AM, & 4:30 PM 04/09 1630 AC 04/09 IV 1618 Furosemide 40 MG DAILY 04/03 1000 DC 04/09 IV 1000 Guaifenesin 10 ML .STK-MED ONE 04/09 1107 DC PO 04/09 1108 Guaifenesin 10 ML Q6P PRN 04/07 0530 AC 04/10 PO 0338 Guaifenesin 600 MG Q12 04/06 1000 AC 04/09 PO 2108 Hydromorphone HCl 2 MG Q8 PRN 04/09 1418 AC 04/09 PO 2334 Hydromorphone HCl 2 MG QPM PRN 04/03 0257 DE 04/08 PO 2140 Hydroxychloroquine 200 MG BID 04/02 2202 AC 04/09 Sulfate PO 2108 Levothyroxine Sodium 0.025 MG DAILY AC 04/03 0700 AC 04/10 PO 0706 Lidocaine 1 PAT ONCE PRN 04/08 0445 AC 04/08 EXT 0558 Lisinopril 10 MG DAILY 04/03 1000 AC 04/09 PO 1001 Omeprazole 40 MG DAILY AC 04/03 0700 AC 04/10 PO 0706 Polyethylene Glycol 17 GM DAILY 04/09 1411 04/09 PO 2108 Prednisone 10 MG DAILY 04/03 1000 AC 04/09 PO 1000 Senna/Docusate Sodium 2 TAB DAILY NEEDED PRN 04/09 0815 AC 04/09 PO 1000 Sertraline HCl 25 MG DAILY 04/06 1642 AC 04/09 PO 1000 Last 24 Hrs of Lab/Rubin Results Last 24 Hrs of Labs/Mics: Laboratory Tests 04/10/17 0620: Anion Gap 9, Estimated GFR 34 L, BUN/Creatinine Ratio 26.0 H, CBC w Diff Pending, WBC Pending, RBC Pending, Hgb Pending, Hct Pending, MCV Pending, MCH Pending, RDW Pending, Plt Count Pending, MPV Pending, PUBS MCHC Pending Microbiology 04/09 1900 STOOL: Clostridium difficile Toxin A & B - RECD Assessment/Plan Assessment: Patient is a 76-year-old female with h/o RA on plaquenil and prednisone, HTN, HLD, anxiety, possible diastolic CHF, TACO not on CPAP, CKD stage 3, chronic anemia, colonic perforation following a colonoscopy requiring Constance's procedure with hospital course c/b oliguric ATN and demand ischemia (Oct 2014), presenting this admission with dyspnea on exertion, extensive edema, bilateral pleural effusions and elevated troponins with EKG changes in the inferior and lateral leads (T-wave inversion) and anemia. Patient was admitted to tele floor for management of following conditions: Acute on chronic diastolic CHF Decompensated diastolic heart failure. Patient reports a h/o CHF and was on lasix in the past but most recently this was discontinued after her recent hospitalization at [facility] (Dec 2016). CXR shows bibasilar effusions and possible pneumonia, right increased since thora and mild vascular congestion. Echo on 04/02/17 revealed EF of 60% and LV hypertrophy. Thoracentesis was performed on 04/04/17 removed 1L which revealed transudate with negative Cytology; most likely related to CHF. Follow up CXR showed re- accumulation of the fluids. - Increase Lasix 40 BID - Continue carvedilol 25 mg twice a day - Appreciate cardiology recommendations Dyspnea, cough Patient had dyspnea, cough with sputum and culture revealed Pseudomonas. Dyspnea most likely was multifactorial. ow grade fever wbc increase. Flu swab negative. - mucomyst and incentive spriometry - Continue Ciprofluxacin PO NSTEMI Atypical chest pain with elevated troponin and EKG changes showing evolving T- wave inversions. She was complaining of chest pain again this morning. Repeat troponin was 0.55, stable from last time. was on IV heparin for 48h. - Trop trended down to .51 - Cardiology consult appreciated - Atorvastatin, aspirin Anemia acute on chronic Black stool in colostomy bag, guaic negatvie, likely due to iron supplements. Hb remained stable during hospitalization. - Continue iron supplement Generalized pain Patient notes that she has generalized pain that she attributes to osteoarthritis Patient is on eliquis. She is a history of DVT. Venous doppler lower ext negative Gave 650 mg Tylenol every 4 hours when necessary patient on dilaudid 2mg qpm as well. - continue Dilaudid 2mg PO Q8 PRN Asymptomatic UTI She denied any urinary symptoms, frequency, urgency, dysuria. Urine analysis was normal. However urine cultures showed Escherichia coli. She remained afebrile with a normal WBC count. She was monitored off from antibiotics. Patient was incontinant in the baseline. Patient recieved ceftriaxone initially for pneumonia which covered E coli as well. - continue to monitor History of DVT on eliqus she Was admitted to [facility] in July 2016 and she was found to have DVT and she was discharged on eliqus. Eliqus was on hold for 48 hours for anticipated thoracocentesis. She was on IV heparin drip for 48 hours and later eliqus was resumed after thoracocentesis. - Continue eliqus Disposition Baseline ambulates with walker. will continue to monitor for outpatient planning down the road DVT prophylaxis with apixiban Heart healthy diet DNR/DNI Problem List: 1. NSTEMI (non-ST elevated myocardial infarction) 2. Pneumonia 3. CHF (congestive heart failure) Pain Ratin Pain Location: Abdominal Pain Goal: Pain 4 or less Pain Plan: Dilaudid for generalized pain Tomorrow's Labs & Rationales: CBC BEP
[2017-04-10 08:17] LABS: ABSOLUTE BASOPHIL COUNT 0 /CUMM (0.0-0.2); ABSOLUTE EOSINOPHIL COUNT 0.1 /CUMM (0.0-0.7); ABSOLUTE GRANULOCYTE CT 5.7 /CUMM (1.4-6.5); ABSOLUTE LYMPH COUNT 1.8 /CUMM (1.2-3.4); ABSOLUTE MONOCYTE COUNT 0.6 /CUMM (0.10-0.60); BASOPHIL % 0.5 % (0.0-2.0); EOSINOPHIL % 1.5 % (0-5); GRANULOCYTE % 68.9 % (42.2-75.2); HEMATOCRIT 26.4 % (37-47); MEAN CORPUSCULAR HGB CONC 32.6 G/DL (33.0-37.0); MEAN CORPUSCULAR VOLUME 85.7 FL (81.0-99.0); MEAN PLATELET VOLUME 9.3 FL (7.4-10.4); PLATELET COUNT 214 /CUMM (130-400); RBC DISTRIBUTION WIDTH 18.4 % (11.5-14.5); RED BLOOD CELL CT 3.08 /CUMM (4.20-5.40); WHITE BLOOD CELL COUNT 8.2 /CUMM (4.8-10.8)
--- NOTE | 2017-04-10 09:47 | RADIOLOGY REPORT ---
EXAMINATION: XR PORTABLE CHEST CLINICAL INFORMATION: Increased shortness of breath. Evaluate pleural effusion. COMPARISON: 04/07/2017 TECHNIQUE: Portable frontal view of the chest was obtained. FINDINGS: Findings in the chest remain similar to those observed on 04/07/2017. Cardiac silhouette is enlarged. No evidence of interstitial pulmonary edema or other new pulmonary disease. Persistent small pleural effusions (left remaining larger than right) and bibasilar opacities, which have appearance of atelectasis on the recent chest CT exam of 04/02/2017. The upper lung zones remain well expanded and clear. Chronic rotator cuff tear associated degenerative arthropathy of the shoulders with bilateral superior humeral subluxation. Patient's known hiatal hernia is poorly visualized. IMPRESSION: 1. Cardiomegaly without pulmonary edema. 2. Persistent small bilateral pleural effusions and bibasilar opacities/atelectasis, similar in appearance compared to 04/07/2017.
--- NOTE | 2017-04-10 11:15 | Patient Discharge Instructions ---
Discharge Instructions General Discharge Information You were seen/treated for: CHF Pneumonia on Cipro Pleaural effusion s/p thora Anemia You had these procedures: Thoracenthesis Drain of the fluid around the lung Watch for these problems: Increased cough, sputum, chest pain, shortness of breathing, dizziness or any other worsening of symptoms Special Instructions: Please follow with your PCP within one week of discharge, please inform your PCP about your admission. Please follow with your senior policy associate within one week of discharge. Please follow with your circular shear operator within one week of discharge. Diet Continue normal diet: No Recommended Diet: Heart Healthy Additional DIET Information: Mechanical soft Activity Full Activity/No Limits: No Activity Self Limited: Yes (As tolerated) Activity Limited to: Walking with Assistance Acute Coronary Syndrome Inclusion Criteria At DC or during hospital stay patient has or had the following: ACS DIAGNOSIS No Discharge Core Measures Meds if any: Prescribed or Continued at Discharge Meds if any: NOT Prescribed or Continued at Discharge Congestive Heart Failure Inclusion Criteria At DC or during hospital stay patient has or had the following: CHF DIAGNOSIS Yes (Diastolic HF, on Lisinopril) Discharge Core Measures Meds if any: Prescribed or Continued at Discharge Meds if any: NOT Prescribed or Continued at Discharge Cerebrovascular accident Inclusion Criteria At DC or during hospital stay patient has or had the following: CVA/TIA Diagnosis No Discharge Core Measures Meds if any: Prescribed or Continued at Discharge Meds if any: NOT Prescribed or Continued at Discharge Venous thromboembolism Inclusion Criteria VTE Diagnosis No (On Eliquis) VTE Type NONE VTE Confirmed by (Test) NONE Discharge Core Measures - Per Current guidelines, there needs to be overlap - treatment for the first 5 days of Warfarin therapy. - If discharged on Warfarin prior to 5 days of - overlap therapy, the patient will need to be - assessed for post discharge needs including - *Post discharge parental anticoagulation - *Warfarin and/or parental anticoagulation education - *Follow up date to check INR post discharge At least 5 days overlap therapy as Inpatient No Meds if any: Prescribed or Continued at Discharge Note: Overlap Therapy is Warfarin and Anticoagulant Meds if any: NOT Prescribed or Continued at Discharge
[2017-04-10] MEDS ORDERED: CIPRO500 M1 PO (11:20)
[2017-04-10] MEDS ORDERED: SENNA PLUS TAB1 EACH PO (11:20)
--- NOTE | 2017-04-10 11:28 | PN- Pulmonary ---
Subjective HPI/Critical Care Issues: Patient seen and examined this morning. Her shortness of breath is at baseline at this time evaluation for rehabilitation is being considered however the patient. Objective Current Medications: Current Medications Sig/Rick Start time Last Medication Dose Route Stop Time Status Admin Acetaminophen 650 MG Q4P PRN 04/03 1200 AC 04/09 PO 0507 Acetylcysteine 2 ML BID 04/07 2200 DC 04/09 INH 0831 Albuterol Sulfate 3 ML BID 04/07 2200 AC 04/10 INH 0807 Apixaban 2.5 MG BID 04/06 2200 AC 04/10 PO 0829 Aspirin 81 MG DAILY 04/03 1000 AC 04/10 PO 0829 Carvedilol 25 MG BID 04/03 1000 AC 04/10 PO 0829 Ciprofloxacin 500 MG Q24H 04/08 1330 AC 04/09 PO 04/12 1329 1511 Ferrous Gluconate 325 MG DAILY 04/03 1000 AC 04/10 PO 0830 Furosemide 40 MG 7:30 AM, & 4:30 PM 04/09 1630 AC 04/10 IV 0826 Furosemide 40 MG DAILY 04/03 1000 DC 04/09 IV 1000 Guaifenesin 10 ML Q6P PRN 04/07 0530 AC 04/10 PO 0338 Guaifenesin 600 MG Q12 04/06 1000 AC 04/10 PO 0830 Hydromorphone HCl 1 MG Q8 PRN 04/10 0905 AC PO Hydromorphone HCl 2 MG Q8 PRN 04/09 1418 DC 04/10 PO 0831 Hydromorphone HCl 2 MG QPM PRN 04/03 0257 DC 04/08 PO 2140 Hydroxychloroquine 200 MG BID 04/02 2202 AC 04/10 Sulfate PO 0830 Levothyroxine Sodium 0.025 MG DAILY AC 04/03 0700 AC 04/10 PO 0706 Lidocaine 1 PAT ONCE PRN 04/08 0445 AC 04/08 EXT 0558 Lisinopril 10 MG DAILY 04/03 1000 AC 04/10 PO 0830 Omeprazole 40 MG DAILY AC 04/03 0700 AC 04/10 PO 0706 Polyethylene Glycol 17 GM DAILY 04/09 1411 AC 04/09 PO 2108 Prednisone 10 MG DAILY 04/03 1000 AC 04/10 PO 0830 Senna/Docusate Sodium 2 TAB DAILY NEEDED PRN 04/09 0815 AC 04/09 PO 1000 Sertraline HCl 25 MG DAILY 04/06 1642 AC 04/10 PO 0830 Vital Signs & I&O Last 24 Hrs of Vitals and I&O: Vital Signs Date Time Temp Pulse Resp B/P B/P Pulse O2 O2 Flow FiO2 Mean Ox Delivery Rate 04/10 0830 63 164/70 04/10 0829 63 164/70 04/10 0812 97 Nasal 1.0L Cannula 04/10 0800 Nasal 1.0L Cannula 04/10 0638 98.0 63 20 164/70 95 Room Air 04/10 0013 93 Room Air 04/10 0000 Room Air 04/09 2334 98.6 63 22 118/70 93 Room Air 04/09 2110 61 152/74 04/09 1910 94 Room Air 04/09 1600 Room Air 04/09 1508 98.0 63 20 118/88 93 Room Air Intake & Output 04/10 1600 04/10 0800 04/10 0000 Intake Total 110 354 Output Total Balance 110 354 Intake, IV 10 Intake, Oral 100 354 Number 1 Bowel Movements Patient 128 lb Weight Weight Chair scale Measurement Method Exam Other Physical Findings: gen awake and alert heent ncat cvs s1, s2 lungs diminished at bases abd soft, some chronic tenderness ext without edema Results Last 24 Hrs of Lab Results: Laboratory Tests 04/10/17 0620: Anion Gap 9, Estimated GFR 34 L, BUN/Creatinine Ratio 26.0 H, CBC w Diff NO MAN DIFF REQ, RBC 3.08 L, MCV 85.7, MCH 28.0, RDW 18.4 H, MPV 9.3, Gran % 68.9 , Lymphocytes % 22.1, Monocytes % 7.0, Eosinophils % 1.5, Basophils % 0.5, Absolute Granulocytes 5.7, Absolute Lymphocytes 1.8, Absolute Monocytes 0.6, Absolute Eosinophils 0.1, Absolute Basophils 0, PUBS MCHC 32.6 L Impression/Plan Impression/Plan Impression/Plan: Impression 76 year old woman -pleural effusions likely chf/fluid overload -?aspiration Plan -mucomyst -f/u ID recs for abx - on ciprofloxacin -transudative pleural fluid -abdominal discomfort is chronic on chronic pain meds DVT prophylaxis at all times
--- NOTE | 2017-04-10 14:04 | PN- Att Addend ---
Attending MD Review Statement Attending Statement Attending MD Statement: examined this patient, discuss w/resident/PA/PYTHON ENGINEER, agreed w/resident/PA/PYTHON ENGINEER, reviewed EMR data (avail), discussed w/nursing, discussed w/ case mgmt Attending Assessment/Plan: Laboratory Tests 04/10/17 0620: Anion Gap 9, Estimated GFR 34 L, BUN/Creatinine Ratio 26.0 H, CBC w Diff NO MAN DIFF REQ, RBC 3.08 L, MCV 85.7, MCH 28.0, RDW 18.4 H, MPV 9.3, Gran % 68.9 , Lymphocytes % 22.1, Monocytes % 7.0, Eosinophils % 1.5, Basophils % 0.5, Absolute Granulocytes 5.7, Absolute Lymphocytes 1.8, Absolute Monocytes 0.6, Absolute Eosinophils 0.1, Absolute Basophils 0, PUBS MCHC 32.6 L Microbiology 04/09 1900 STOOL: Clostridium difficile Toxin A & B - COMP Vital Signs Date Time Temp Pulse Resp B/P B/P Pulse O2 O2 Flow FiO2 Mean Ox Delivery Rate 04/10 0830 63 164/70 04/10 0829 63 164/70 04/10 0812 97 Nasal 1.0L Cannula 04/10 0800 Nasal 1.0L Cannula 04/10 0638 98.0 63 20 164/70 95 Room Air 04/10 0013 93 Room Air 04/10 0000 Room Air 04/09 2334 98.6 63 22 118/70 93 Room Air 04/09 2110 61 152/74 04/09 1910 94 Room Air 04/09 1600 Room Air 04/09 1508 98.0 63 20 118/88 93 Room Air 76 yr old female with pmh of diastolic chf, dvt on eliquis since july of 2016, RA on prednisone, 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 Pt had mild bump in trop which is stable. Pt also complained of wt gain over the last few weeks for which she was given lasix at home by [facility]NS per cardiology recommendations. Pt lives at home and has Aides to help her at home. She was not very mobile at home and was using commode at home. Pt was found to have b/l plerual effusion and was admitted for above symptoms and pleural effusion. CT scan shows b/l pleural effusion with rt side greater than left. Acute chf diastolic exac- cont on lasix 40mg iv daily and cardiology following the pt closely with us. F/u on serial trop reveals stable torponins and we are not checking it anymore. f/u on echo results revealed normal EF but restrictive diastolic dysfunction. Reviewed pts records from [facility] . Pnuemonia- Sputum culture growing Pseudomonas, Pt switched to ciprofloxacin since 04/08/17. Type 2 PA- secondary to chf. monitor on tele .cardiology following. trop stable. will stop checking them. Pleural effusion b/l- repeat cxr reviewed on 04/10/17- shows improvement. d/w pulmonary. pt underwent thoracentesis on friday. Looks transudative. pulmonology follwoing. Sputum culture grew Psuedomonas and Pleural fluid culture negative so far. DVT- on eliquis now . UTI - urine culture grew E coli . On ciprofloxacin. I discussed with pt the plan for BERRY as I strongly think she will benefit from Rehab but pt refuses BERRY. d/w pts son about the care plan will happen on Friday as he is unable to come tomorrow. d/w case management the care plan.
[2017-04-10 15:05] VITALS: BP 118/80
--- NOTE | 2017-04-10 15:55 | RADIOLOGY REPORT ---
EXAMINATION: CR PORTABLE ABDOMEN CLINICAL INFORMATION: Admitted for CHF. Has colostomy. History of intestinal perforation years ago. Complaining of abdominal pain. Evaluate for acute pathology. COMPARISON: CT scan of the abdomen and pelvis dated 12/06/2015. TECHNIQUE: AP view of the abdomen. FINDINGS: EKG leads overlie the abdomen and lower chest. Bibasilar lung opacities are again seen, left greater than right, better visualized on chest x-ray from today. Normal bowel gas pattern is seen on supine imaging. No definite free air or pneumatosis or evidence of obstruction is seen. Osteopenia with convex right lumbar scoliosis, multilevel degenerative changes in the spine, and severe degenerative changes in the left hip joint again noted. Osteitis pubis and sacroiliac joint degenerative changes are also seen. IMPRESSION: Normal bowel gas pattern.
--- NOTE | 2017-04-10 17:12 | PN- Cardiology ---
Subjective Subjective: Feels unchanged. Objective Vital Signs and I&Os Vital Signs Date Time Temp Pulse Resp B/P B/P Pulse O2 O2 Flow FiO2 Mean Ox Delivery Rate 04/10 1505 97.8 62 16 118/80 91 04/10 0830 63 164/70 04/10 0829 63 164/70 04/10 0812 97 Nasal 1.0L Cannula 04/10 0800 Nasal 1.0L Cannula 04/10 0638 98.0 63 20 164/70 95 Room Air 04/10 0013 93 Room Air 04/10 0000 Room Air 04/09 2334 98.6 63 22 118/70 93 Room Air 04/09 2110 61 152/74 04/09 1910 94 Room Air Intake & Output 04/10 1600 04/10 0800 04/10 0000 04/09 1600 04/09 0800 04/09 0000 Intake Total 320 110 354 400 120 120 Output Total Balance 320 110 354 400 120 120 Intake, IV 10 Intake, Oral 320 100 354 400 120 120 Number 1 1 1 Bowel Movements Patient 128 lb 129 lb Weight Weight Chair scale Chair scale Measurement Method Physical Exam: Well-developed, overweight elderly female in no acute distress with nasal oxygen in place. Vital signs: See above. Neck: No JVD, no bruits. Lungs: Decreased breath sounds at the bases bilaterally and mild expiratory wheeze. Heart: S1, S2 with no murmur, gallop, or rub. Abdomen: Soft, nontender, positive bowel sounds. Extremities: No edema. Current Medications: Current Medications Sig/Rick Start time Last Medication Dose Route Stop Time Status Admin Acetaminophen 650 MG Q4P PRN 04/03 1200 AC 04/09 PO 0507 Acetylcysteine 2 ML BID 04/07 2200 DC 04/09 INH 0831 Albuterol Sulfate 3 ML BID 04/07 2200 AC 04/10 INH 0807 Apixaban 2.5 MG BID 04/06 2200 AC 04/10 PO 0829 Aspirin 81 MG DAILY 04/03 1000 AC 04/10 PO 0829 Carvedilol 25 MG BID 04/03 1000 AC 04/10 PO 0829 Ciprofloxacin 500 MG Q24H 04/08 1330 AC 04/10 PO 04/12 1329 1326 Ferrous Gluconate 325 MG DAILY 04/03 1000 AC 04/10 PO 0830 Furosemide 40 MG DAILY 04/11 1000 AC IV Furosemide 40 MG 7:30 AM, & 4:30 PM 04/09 1630 TX 04/10 IV 1609 Guaifenesin 10 ML .STK-MED ONE 04/10 0337 DC PO 04/10 0338 Guaifenesin 10 ML Q6P PRN 04/07 0530 AC 04/10 PO 0338 Guaifenesin 600 MG Q12 04/06 1000 AC 04/10 PO 0830 Hydromorphone HCl 1 MG Q8 PRN 04/10 0905 AC 04/10 PO 1617 Hydromorphone HCl 2 MG Q8 PRN 04/09 1418 DC 04/10 PO 0831 Hydroxychloroquine 200 MG BID 04/02 2202 AC 04/10 Sulfate PO 0830 Levothyroxine Sodium 0.025 MG DAILY AC 04/03 0700 AC 04/10 PO 0706 Lidocaine 1 PAT ONCE PRN 04/08 0445 AC 04/08 EXT 0558 Lisinopril 10 MG DAILY 04/03 1000 AC 04/10 PO 0830 Omeprazole 40 MG DAILY AC 04/03 0700 AC 04/10 PO 0706 Patient Medication 1 ED ONE ONE 04/10 1145 TX 04/10 Teaching ED 04/10 1146 1211 Polyethylene Glycol 17 GM DAILY 04/09 1411 AC 04/09 PO 2108 Prednisone 10 MG DAILY 04/03 1000 AC 04/10 PO 0830 Senna/Docusate Sodium 2 TAB DAILY NEEDED PRN 04/09 0815 04/09 PO 1000 Sertraline HCl 25 MG DAILY 04/06 1642 AC 04/10 PO 0830 Results Last 48 Hrs of Labs/Mics: Laboratory Tests 04/10/17 0620: Anion Gap 9, Estimated GFR 34 L, BUN/Creatinine Ratio 26.0 H, CBC w Diff NO MAN DIFF REQ, RBC 3.08 L, MCV 85.7, MCH 28.0, RDW 18.4 H, MPV 9.3, Gran % 68.9 , Lymphocytes % 22.1, Monocytes % 7.0, Eosinophils % 1.5, Basophils % 0.5, Absolute Granulocytes 5.7, Absolute Lymphocytes 1.8, Absolute Monocytes 0.6, Absolute Eosinophils 0.1, Absolute Basophils 0, PUBS MCHC 32.6 L 04/09/17 0640: Anion Gap 11, Estimated GFR 34 L, BUN/Creatinine Ratio 26.0 H, Magnesium 1.9, Krb-W-Pdklpxozxyp Pept 97348 H, CBC w Diff NO MAN DIFF REQ, RBC 3.01 L, MCV 86.5, MCH 27.5, RDW 18.5 H, MPV 9.6, Gran % 70.5, Lymphocytes % 20.6, Monocytes % 6.6, Eosinophils % 1.9, Basophils % 0.4, Absolute Granulocytes 5.6, Absolute Lymphocytes 1.6, Absolute Monocytes 0.5, Absolute Eosinophils 0.1, Absolute Basophils 0, PUBS MCHC 31.8 L Microbiology 04/09 1900 STOOL: Clostridium difficile Toxin A & B - COMP Recent Imaging Studies: CXR 04/10/2017: 1. Cardiomegaly without pulmonary edema. 2. Persistent small bilateral pleural effusions and bibasilar opacities/ atelectasis, similar in appearance compared to 04/07/2017. Abdominal x-ray 04/10/2017: 1. Normal bowel gas pattern. Assessment/Plan Assessment/Plan [id number] w/ hx anxiety/depression, RA on steroids, previous DVT on Eliquis ( apixaban), obesity, TACO on CPAP, chronic anemia, HTN, , LVH, & diastolic dysfunction, who presented to the ED on our recommendation after her VNA contacted our office to relate Sx of progressive SOB & weight gain w/ CXR findings of cardiomegaly, moderate bilateral pleural effusions, and associated airspace disease. Based on her history is suspected that her presentation is most consistent with acute on chronic diastolic heart failure (HFpEF), but also developed productive cough c/w possible pneumonia which is being treated.. Suspect that the modest troponin I elevation is on the basis of type II myocardial infarction and not an acute coronary syndrome. Inaccurate inputs/outputs, weight today 128 pounds. Recommendations: * Continue on telemetry. * Continue daily IV diuresis with furosemide 40 mg and consider additional IV furosemide 40 mg IV 1 today. * Continue to check daily weights with the same scale. * Follow-up in infectious disease and pulmonary recommendations. * Consider transfusion to maintain at or above 8.0 g/dl. * DVT prophylaxis. Continue telemetry? Yes
[2017-04-10 22:17] VITALS: BP 142/68
[2017-04-11 06:09] VITALS: BP 134/60
[2017-04-11 08:03] LABS: ABSOLUTE BASOPHIL COUNT 0 /CUMM (0.0-0.2); ABSOLUTE EOSINOPHIL COUNT 0.1 /CUMM (0.0-0.7); ABSOLUTE LYMPH COUNT 1.9 /CUMM (1.2-3.4); ABSOLUTE MONOCYTE COUNT 0.5 /CUMM (0.10-0.60); BASOPHIL % 0.6 % (0.0-2.0); GRANULOCYTE % 66.4 % (42.2-75.2); MEAN CORPUSCULAR HGB CONC 32.7 G/DL (33.0-37.0); MEAN CORPUSCULAR VOLUME 85.7 FL (81.0-99.0); MEAN PLATELET VOLUME 9.1 FL (7.4-10.4); PLATELET COUNT 215 /CUMM (130-400); RBC DISTRIBUTION WIDTH 18.3 % (11.5-14.5); RED BLOOD CELL CT 3.03 /CUMM (4.20-5.40); WHITE BLOOD CELL COUNT 7.6 /CUMM (4.8-10.8)
--- NOTE | 2017-04-11 08:03 | PN- Housestaff ---
Subjective Follow-up For: CHF Pneumonia on Cipro Pleaural effusion s/p thora Anemia Tele-Events Since Last Visit: nsr 60-69 Subjective: Patient visited today, significant improvement in general aprearance compared to yesterday, was lying in bed comfortably in no acute distress, was alert and oriented. She reported improvement in cough and sputum and relative improvement in shortness of breathing. No fever or chills, no chest pain, no other events. Review of Systems Constitutional: Reports: see HPI. Objective Last 24 Hrs of Vital Signs/I&O Vital Signs Date Time Temp Pulse Resp B/P B/P Pulse O2 O2 Flow FiO2 Mean Ox Delivery Rate 04/11 1142 59 132/56 04/11 1142 59 132/56 04/11 1107 94 Room Air 04/11 0609 98.1 62 18 134/60 91 04/11 0000 Room Air 04/10 2217 98.8 60 16 142/68 93 Room Air 04/10 2102 62 118/80 04/10 1850 94 Room Air Room Air 04/10 1505 97.8 62 16 118/80 91 Intake & Output 04/11 1600 04/11 0800 04/11 0000 Intake Total 110 200 Output Total Balance 110 200 Intake, IV 10 Intake, Oral 100 200 Physical Exam General Appearance: Alert, Oriented X3, Cooperative, No Acute Distress Skin: No Significant Lesion Skin Temp/Moisture Exam: Warm/Dry Sepsis Skin Exam (color): Normal for Ethnicity HEENT: Atraumatic, EOMI, Mucous Membr. moist/pink Neck: No JVD Cardiovascular: Regular Rate, Normal S1, Normal S2 Lungs: bilateral ronchi, decreased air entery bilaterally Abdomen: Normal Bowel Sounds, Soft, No Tenderness Neurological: Normal Speech Extremities: No Edema Current Medications: Current Medications Sig/Rick Start time Last Medication Dose Route Stop Time Status Admin Acetaminophen 650 MG Q4P PRN 04/03 1200 AC 04/09 PO 0507 Albuterol Sulfate 3 ML BID 04/07 2199 AC 04/11 INH 1106 Apixaban 2.5 MG BID 04/06 220 AC 04/11 PO 1142 Aspirin 81 MG DAILY 04/03 1000 AC 04/11 PO 1143 Carvedilol 25 MG BID 04/03 1000 AC 04/11 PO 1142 Ciprofloxacin 500 MG Q24H 04/08 1330 AC 04/10 PO 01/20 1329 1326 Ferrous Gluconate 325 MG DAILY 04/03 1000 AC 04/11 PO 1142 Furosemide 40 MG DAILY 04/11 1000 AC 04/11 IV 1141 Furosemide 40 MG 7:30 AM, & 4:30 PM 04/09 1630 DC 04/10 IV 1609 Guaifenesin 10 ML Q6P PRN 04/07 0530 AC 04/10 PO 0338 Guaifenesin 600 MG Q12 04/06 1000 AC 04/11 PO 1142 Hydromorphone HCl 1 MG Q8 PRN 04/10 0905 AC 04/11 PO 0830 Hydroxychloroquine 200 MG BID 04/02 2202 AC 04/11 Sulfate PO 1142 Levothyroxine Sodium 0.025 MG DAILY AC 04/03 0700 AC 04/11 PO 0558 Lidocaine 1 PAT ONCE PRN 04/08 0445 AC 04/08 EXT 0558 Lisinopril 10 MG DAILY 04/03 1000 AC 04/11 PO 1142 Omeprazole 40 MG DAILY AC 04/03 0700 AC 04/11 PO 0558 Polyethylene Glycol 17 GM DAILY 04/09 1411 AC 04/11 PO 1141 Prednisone 10 MG DAILY 04/03 1000 AC 04/11 PO 1142 Senna/Docusate Sodium 2 TAB DAILY NEEDED PRN 04/09 0815 AC 04/09 PO 1000 Sertraline HCl 25 MG DAILY 04/06 1642 AC 04/11 PO 1142 Last 24 Hrs of Lab/Rubin Results Last 24 Hrs of Labs/Mics: Laboratory Tests 04/11/17 0623: Anion Gap 7, Estimated GFR 31 L, BUN/Creatinine Ratio 25.0, CBC w Diff NO MAN DIFF REQ, RBC 3.03 L, MCV 85.7, MCH 28.0, RDW 18.3 H, MPV 9.1, Gran % 66.4, Lymphocytes % 25.0, Monocytes % 7.0, Eosinophils % 1.0, Basophils % 0.6, Absolute Granulocytes 5.0, Absolute Lymphocytes 1.9, Absolute Monocytes 0.5, Absolute Eosinophils 0.1, Absolute Basophils 0, PUBS MCHC 32.7 L Assessment/Plan Assessment: Patient is a 76-year-old female with h/o RA on plaquenil and prednisone, HTN, HLD, anxiety, possible diastolic CHF, TACO not on CPAP, CKD stage 3, chronic anemia, colonic perforation following a colonoscopy requiring Constance's procedure with hospital course c/b oliguric ATN and demand ischemia (Oct 2014), presenting this admission with dyspnea on exertion, extensive edema, bilateral pleural effusions and elevated troponins with EKG changes in the inferior and lateral leads (T-wave inversion) and anemia. Patient was admitted to tele floor for management of following conditions: Acute on chronic diastolic CHF Decompensated diastolic heart failure. Patient reports a h/o CHF and was on lasix in the past but most recently this was discontinued after her recent hospitalization at [place] (Dec 2016). CXR shows bibasilar effusions and possible pneumonia, right increased since thora and mild vascular congestion. Echo on 04/02/17 revealed EF of 60% and LV hypertrophy. Thoracentesis was performed on 04/04/17 removed 1L which revealed transudate with negative Cytology; most likely related to CHF. Follow up CXR showed re- accumulation of the fluids. - Increase Lasix 40 , extra dose per cardio - Continue carvedilol 25 mg twice a day - Appreciate cardiology recommendations Dyspnea, cough Patient had dyspnea, cough with sputum and culture revealed Pseudomonas. Dyspnea most likely was multifactorial. ow grade fever wbc increase. Flu swab negative. - mucomyst and incentive spriometry - Continue Ciprofluxacin PO (consider total dose for 10 days) NSTEMI Atypical chest pain with elevated troponin and EKG changes showing evolving T- wave inversions. She was complaining of chest pain again this morning. Repeat troponin was 0.55, stable from last time. was on IV heparin for 48h. - Trop trended down to .51 - Cardiology consult appreciated - Atorvastatin, aspirin Anemia acute on chronic Black stool in colostomy bag, guaic negatvie, likely due to iron supplements. Hb remained stable during hospitalization. - Continue iron supplement Generalized pain Patient notes that she has generalized pain that she attributes to osteoarthritis Patient is on eliquis. She is a history of DVT. Venous doppler lower ext negative Gave 650 mg Tylenol every 4 hours when necessary patient on dilaudid 2mg qpm as well. - continue Dilaudid 2mg PO PRN qPM, PRN as needed Asymptomatic UTI She denied any urinary symptoms, frequency, urgency, dysuria. Urine analysis was normal. However urine cultures showed Escherichia coli. She remained afebrile with a normal WBC count. She was monitored off from antibiotics. Patient was incontinant in the baseline. Patient recieved ceftriaxone initially for pneumonia which covered E coli as well. - continue to monitor History of DVT on eliqus she Was admitted to [facility] in July 2016 and she was found to have DVT and she was discharged on eliqus. Eliqus was on hold for 48 hours for anticipated thoracocentesis. She was on IV heparin drip for 48 hours and later eliqus was resumed after thoracocentesis. - Continue eliqus Disposition Baseline ambulates with walker. will continue to monitor for outpatient planning down the road DVT prophylaxis with apixiban Heart healthy diet DNR/DNI Problem List: 1. Pneumonia 2. NSTEMI (non-ST elevated myocardial infarction) 3. CHF (congestive heart failure) Pain Ratin Pain Location: genralized, not at the time of interview Pain Goal: Pain 4 or less Pain Plan: Continue current plan Tomorrow's Labs & Rationales: BEP
--- NOTE | 2017-04-11 12:47 | PN- Pulmonary ---
Subjective HPI/Critical Care Issues: Patient seen and examined. She appears comfortable and at baseline however still with dyspnea. Awaiting discharge planning. Objective Current Medications: Current Medications Sig/Rick Start time Last Medication Dose Route Stop Time Status Admin Acetaminophen 650 MG Q4P PRN 04/03 1200 AC 04/09 PO 0507 Albuterol Sulfate 3 ML BID 04/07 2200 AC 04/11 INH 1106 Apixaban 2.5 MG BID 04/06 2200 AC 04/11 PO 1142 Aspirin 81 MG DAILY 04/03 1000 AC 04/11 PO 1143 Carvedilol 25 MG BID 04/03 1000 AC 04/11 PO 1142 Ciprofloxacin 500 MG Q24H 04/08 1330 AC 04/10 PO 04/12 1329 1326 Ferrous Gluconate 325 MG DAILY 04/03 1000 AC 04/11 PO 1142 Furosemide 40 MG DAILY 04/11 1000 AC 04/11 IV 1141 Furosemide 40 MG 7:30 AM, & 4:30 PM 04/09 1630 DC 04/10 IV 1609 Guaifenesin 10 ML Q6P PRN 04/07 0530 AC 04/10 PO 0338 Guaifenesin 600 MG Q12 04/06 1000 AC 04/11 PO 1142 Hydromorphone HCl 1 MG Q8 PRN 04/10 0905 AC 04/11 PO 0830 Hydroxychloroquine 200 MG BID 04/02 220 AC 04/11 Sulfate PO 1142 Levothyroxine Sodium 0.025 MG DAILY AC 04/03 0700 AC 04/11 PO 0558 Lidocaine 1 PAT ONCE PRN 04/08 0445 AC 04/08 EXT 0558 Lisinopril 10 MG DAILY 04/03 1000 AC 04/11 PO 1142 Omeprazole 40 MG DAILY AC 04/03 0700 AC 04/11 PO 0558 Polyethylene Glycol 17 GM DAILY 04/09 1411 AC 04/11 PO 1141 Prednisone 10 MG DAILY 04/03 1000 AC 04/11 PO 1142 Senna/Docusate Sodium 2 TAB DAILY NEEDED PRN 04/09 0815 AC 04/09 PO 1000 Sertraline HCl 25 MG DAILY 04/06 1642 AC 04/11 PO 1142 Vital Signs & I&O Last 24 Hrs of Vitals and I&O: Vital Signs Date Time Temp Pulse Resp B/P B/P Pulse O2 O2 Flow FiO2 Mean Ox Delivery Rate 04/11 1142 59 132/56 04/11 1142 59 132/56 04/11 1107 94 Room Air 04/11 0609 98.1 62 18 134/60 91 04/11 0000 Room Air 04/10 2217 98.8 60 16 142/68 93 Room Air 04/10 2102 62 118/80 04/10 1850 94 Room Air Room Air 04/10 1505 97.8 62 16 118/80 91 Intake & Output 04/11 1600 04/11 0800 04/11 0000 Intake Total 110 200 Output Total Balance 110 200 Intake, IV 10 Intake, Oral 100 200 Exam Other Physical Findings: gen awake and alert heent ncat cvs s1, s2 lungs diminished at bases abd soft, some chronic tenderness ext without edema Results Last 24 Hrs of Lab Results: Laboratory Tests 04/11/17 0623: Anion Gap 7, Estimated GFR 31 L, BUN/Creatinine Ratio 25.0, CBC w Diff NO MAN DIFF REQ, RBC 3.03 L, MCV 85.7, MCH 28.0, RDW 18.3 H, MPV 9.1, Gran % 66.4, Lymphocytes % 25.0, Monocytes % 7.0, Eosinophils % 1.0, Basophils % 0.6, Absolute Granulocytes 5.0, Absolute Lymphocytes 1.9, Absolute Monocytes 0.5, Absolute Eosinophils 0.1, Absolute Basophils 0, PUBS MCHC 32.7 L Impression/Plan Impression/Plan Impression/Plan: Impression 76 year old woman -pleural effusions likely chf/fluid overload -?aspiration Plan -mucomyst -f/u ID recs for abx - on ciprofloxacin -transudative pleural fluid -abdominal discomfort is chronic on chronic pain meds DVT prophylaxis at all times DC planning
--- NOTE | 2017-04-11 12:57 | PN- Cardiology ---
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 Overall, feels a little better today. Objective Vital Signs and I&Os Vital Signs Date Time Temp Pulse Resp B/P B/P Pulse O2 O2 Flow FiO2 Mean Ox Delivery Rate 04/11 1142 59 132/56 04/11 1142 59 132/56 04/11 1107 94 Room Air 04/11 0609 98.1 62 18 134/60 91 04/11 0000 Room Air 04/10 2217 98.8 60 16 142/68 93 Room Air 04/10 2102 62 118/80 04/10 1850 94 Room Air Room Air 04/10 1505 97.8 62 16 118/80 91 Intake & Output 04/11 1600 04/11 0800 04/11 0000 04/10 1600 04/10 0800 04/10 0000 Intake Total 110 200 320 110 354 Output Total Balance 110 200 320 110 354 Intake, IV 10 10 Intake, Oral 100 200 320 100 354 Number 1 1 Bowel Movements Patient 128 lb Weight Weight Chair scale Measurement Method Physical Exam: Well-developed, overweight elderly female in no acute distress with nasal oxygen in place. Vital signs: See above. Neck: No JVD, no bruits. Lungs: Decreased breath sounds at the bases bilaterally and mild expiratory wheeze. Heart: S1, S2 with no murmur, gallop, or rub. Abdomen: Soft, nontender, positive bowel sounds. Extremities: No edema. Current Medications: Current Medications Sig/Rick Start time Last Medication Dose Route Stop Time Status Admin Acetaminophen 650 MG Q4P PRN 04/03 1200 AC 04/09 PO 0507 Albuterol Sulfate 3 ML BID 04/07 2200 AC 04/11 INH 1106 Apixaban 2.5 MG BID 04/06 2200 AC 04/11 PO 1142 Aspirin 81 MG DAILY 04/03 1000 AC 04/11 PO 1143 Carvedilol 25 MG BID 04/03 1000 AC 04/11 PO 1142 Ciprofloxacin 500 MG Q24H 04/08 1330 AC 04/10 PO 04/12 1329 1326 Ferrous Gluconate 325 MG DAILY 04/03 1000 AC 04/11 PO 1142 Furosemide 40 MG DAILY 04/11 1000 AC 04/11 IV 1141 Furosemide 40 MG 7:30 AM, & 4:30 PM 04/09 1630 DC 04/10 IV 1609 Guaifenesin 10 ML Q6P PRN 04/07 0530 AC 04/10 PO 0338 Guaifenesin 600 MG Q12 04/06 1000 AC 04/11 PO 1142 Hydromorphone HCl 1 MG Q8 PRN 04/10 0905 AC 04/11 PO 0830 Hydroxychloroquine 200 MG BID 04/02 2202 AC 04/11 Sulfate PO 1142 Levothyroxine Sodium 0.025 MG DAILY AC 04/03 0700 AC 04/11 PO 0558 Lidocaine 1 PAT ONCE PRN 04/08 0445 AC 04/08 EXT 0558 Lisinopril 10 MG DAILY 04/03 1000 AC 04/11 PO 1142 Omeprazole 40 MG DAILY AC 04/03 0700 AC 04/11 PO 0558 Polyethylene Glycol 17 GM DAILY 04/09 1411 AC 04/11 PO 1141 Prednisone 10 MG DAILY 04/03 1000 AC 04/11 PO 1142 Senna/Docusate Sodium 2 TAB DAILY NEEDED PRN 04/09 0815 AC 04/09 PO 1000 Sertraline HCl 25 MG DAILY 04/06 1642 AC 04/11 PO 1142 Results Last 48 Hrs of Labs/Mics: Laboratory Tests 04/11/17 0623: Anion Gap 7, Estimated GFR 31 L, BUN/Creatinine Ratio 25.0, CBC w Diff NO MAN DIFF REQ, RBC 3.03 L, MCV 85.7, MCH 28.0, RDW 18.3 H, MPV 9.1, Gran % 66.4, Lymphocytes % 25.0, Monocytes % 7.0, Eosinophils % 1.0, Basophils % 0.6, Absolute Granulocytes 5.0, Absolute Lymphocytes 1.9, Absolute Monocytes 0.5, Absolute Eosinophils 0.1, Absolute Basophils 0, PUBS MCHC 32.7 L 04/10/17 0620: Anion Gap 9, Estimated GFR 34 L, BUN/Creatinine Ratio 26.0 H, CBC w Diff NO MAN DIFF REQ, RBC 3.08 L, MCV 85.7, MCH 28.0, RDW 18.4 H, MPV 9.3, Gran % 68.9 , Lymphocytes % 22.1, Monocytes % 7.0, Eosinophils % 1.5, Basophils % 0.5, Absolute Granulocytes 5.7, Absolute Lymphocytes 1.8, Absolute Monocytes 0.6, Absolute Eosinophils 0.1, Absolute Basophils 0, PUBS MCHC 32.6 L Microbiology 04/09 1899 STOOL: Clostridium difficile Toxin A & B - COMP Assessment/Plan Assessment/Plan [id number] w/ hx anxiety/depression, RA on steroids, previous DVT on Eliquis ( apixaban), obesity, TACO on CPAP, chronic anemia, HTN, , LVH, & diastolic dysfunction, who presented to the ED on our recommendation after her VNA contacted our office to relate Sx of progressive SOB & weight gain w/ CXR findings of cardiomegaly, moderate bilateral pleural effusions, and associated airspace disease. Based on her history is suspected that her presentation is most consistent with acute on chronic diastolic heart failure (HFpEF), but also developed productive cough c/w possible pneumonia which is being treated.. Suspect that the modest troponin I elevation is on the basis of type II myocardial infarction and not an acute coronary syndrome. Inaccurate inputs/outputs. Weight 04/10/2017 128 pounds. Awaiting today's weight. Recommendations: * Continue on telemetry. * Continue daily IV diuresis with furosemide 40 mg. * Continue to check daily weights with the same scale. * Follow-up in infectious disease and pulmonary recommendations. * Consider transfusion to maintain at or above 8.0 g/dl. * DVT prophylaxis. Continue telemetry? Yes
--- NOTE | 2017-04-11 14:12 | PN- Infect Dx ---
Subjective Subjective: Afebrile. She feels improved though still reports a cough, with some green and, occasionally, bloody sputum. She reports mild abdominal discomfort. Objective Last 24 Hrs of Vital Signs/I&O Vital Signs Date Time Temp Pulse Resp B/P B/P Pulse O2 O2 Flow FiO2 Mean Ox Delivery Rate 04/11 1142 59 132/56 04/11 1142 59 132/56 04/11 1107 94 Room Air 04/11 0609 98.1 62 18 134/60 91 04/11 0000 Room Air 04/10 2217 98.8 60 16 142/68 93 Room Air 04/10 2102 62 118/80 04/10 1850 94 Room Air Room Air 04/10 1505 97.8 62 16 118/80 91 Intake & Output 04/11 1600 04/11 0800 04/11 0000 Intake Total 110 200 Output Total Balance 110 200 Intake, IV 10 Intake, Oral 100 200 Physical Exam Other Physical Findings: She appears comfortable, in no acute distress Lungs clear Heart regular rhythm with no murmur Abdomen is soft, mildly tender to palpation over the epigastrium, with positive bowel sounds Extremities no cyanosis, clubbing or edema Results Last 24 Hours of Lab Results: Laboratory Tests 04/11 06 Chemistry Sodium (137 - 145 mmol/L) 139 Potassium (3.5 - 5.1 mmol/L) 3.9 Chloride (98 - 107 mmol/L) 99 Carbon Dioxide (22 - 30 mmol/L) 32 H Anion Gap (5 - 16) 7 BUN (7 - 17 mg/dL) 40 H Creatinine (0.5 - 1.0 mg/dL) 1.6 H Estimated GFR (>60 ml/min) 31 L BUN/Creatinine Ratio (7 - 25 %) 25.0 Hematology CBC w Diff NO MAN DIFF REQ WBC (4.8 - 10.8 /CUMM) 7.6 RBC (4.20 - 5.40 /CUMM) 3.03 L Hgb (12.0 - 16.0 G/DL) 8.5 L Hct (37 - 47 %) 26.0 L MCV (81.0 - 99.0 FL) 85.7 MCH (27.0 - 31.0 PG) 28.0 RDW (11.5 - 14.5 %) 18.3 H Plt Count (130 - 400 /CUMM) 215 MPV (7.4 - 10.4 FL) 9.1 Gran % (42.2 - 75.2 %) 66.4 Lymphocytes % (20.5 - 51.1 %) 25.0 Monocytes % (1.7 - 9.3 %) 7.0 Eosinophils % (0 - 5 %) 1.0 Basophils % (0.0 - 2.0 %) 0.6 Absolute Granulocytes (1.4 - 6.5 /CUMM) 5.0 Absolute Lymphocytes (1.2 - 3.4 /CUMM) 1.9 Absolute Monocytes (0.10 - 0.60 /CUMM) 0.5 Absolute Eosinophils (0.0 - 0.7 /CUMM) 0.1 Absolute Basophils (0.0 - 0.2 /CUMM) 0 PUBS MCHC (33.0 - 37.0 G/DL) 32.7 L Last 24 Hours of Rubin Results: Stool C. difficile April 09 negative Recent Imaging Studies: Chest x-ray April 10 reveals persistent small bilateral pleural effusions and bibasilar densities Abdominal x-ray April 10 normal bowel gas pattern Assessment/Plan Impression: Stable, with temperatures and white blood cell count remaining normal (on steroids), and Ciprofloxacin, Day 3 of treatment for Pseudomonas bronchitis/ pneumonia. Suggestion: 1. Continue Ciprofloxacin
--- NOTE | 2017-04-11 15:01 | PN- Att Addend ---
Attending MD Review Statement Attending Statement Attending MD Statement: examined this patient, discuss w/resident/PA/STRAIGHTENING MACHINE OPERATOR, agreed w/resident/PA/STRAIGHTENING MACHINE OPERATOR, reviewed EMR data (avail), discussed w/nursing, discussed w/ case mgmt Attending Assessment/Plan: Laboratory Tests 04/11/17 0623: Anion Gap 7, Estimated GFR 31 L, BUN/Creatinine Ratio 25.0, CBC w Diff NO MAN DIFF REQ, RBC 3.03 L, MCV 85.7, MCH 28.0, RDW 18.3 H, MPV 9.1, Gran % 66.4, Lymphocytes % 25.0, Monocytes % 7.0, Eosinophils % 1.0, Basophils % 0.6, Absolute Granulocytes 5.0, Absolute Lymphocytes 1.9, Absolute Monocytes 0.5, Absolute Eosinophils 0.1, Absolute Basophils 0, PUBS MCHC 32.7 L Vital Signs Date Time Temp Pulse Resp B/P B/P Pulse O2 O2 Flow FiO2 Mean Ox Delivery Rate 04/11 1142 59 132/56 04/11 1142 59 132/56 04/11 1107 94 Room Air 04/11 0609 98.1 62 18 134/60 91 04/11 0000 Room Air 04/10 2217 98.8 60 16 142/68 93 Room Air 04/10 2102 62 118/80 04/10 1850 94 Room Air Room Air 04/10 1505 97.8 62 16 118/80 91 76 yr old female with pmh of diastolic chf, dvt on eliquis since july of 2016, RA on prednisone, 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 Pt had mild bump in trop which is stable. Pt also complained of wt gain over the last few weeks for which she was given lasix at home by [facility] per cardiology recommendations. Pt lives at home and has Aides to help her at home. She was not very mobile at home and was using commode at home. Pt was found to have b/l plerual effusion and was admitted for above symptoms and pleural effusion. CT scan shows b/l pleural effusion with rt side greater than left. Acute chf diastolic exac- cont on lasix 40mg iv daily and cardiology following the pt closely with us. F/u on serial trop reveals stable torponins and we are not checking it anymore. f/u on echo results revealed normal EF but restrictive diastolic dysfunction. Reviewed pts records from [facility]. Pnuemonia- Sputum culture growing Pseudomonas, Pt switched to ciprofloxacin since 04/08/17. Treat for total of 7-10 days per ID recommendations. Type 2 WI- secondary to chf. monitor on tele .cardiology following. stable. Pleural effusion b/l- repeat cxr reviewed on 04/10/17- shows improvement. d/w pulmonary. pt underwent thoracentesis on friday. Looks transudative. pulmonology follwoing. Sputum culture grew Psuedomonas and Pleural fluid culture negative so far. DVT- on eliquis now . UTI - urine culture grew E coli . On ciprofloxacin. I discussed with pt the plan for BERRY as I strongly think she will benefit from Rehab but pt refuses BERRY. family meeting with pts son about the care plan will happen on Friday to discuss disposition. d/w pt the care plan.
[2017-04-11 15:12] VITALS: BP 108/46
[2017-04-11 23:02] VITALS: BP 90/52
--- NOTE | 2017-04-12 05:52 | PN- Housestaff ---
DivyaWilliamisabel 04/12/17 0552: Subjective Follow-up For: CHF Pneumonia on Cipro Pleaural effusion s/p thora Anemia Tele-Events Since Last Visit: 75-85 NSR no events Subjective: I have seen and examined the patient cc of chronic abdominal pain with rate of 5 better with pain meds, no N/V and no SOB. Objective Last 24 Hrs of Vital Signs/I&O Vital Signs Date Time Temp Pulse Resp B/P B/P Pulse O2 O2 Flow FiO2 Mean Ox Delivery Rate 04/12 0000 96 Room Air 04/11 2302 97.8 59 22 90/52 95 Room Air 04/11 1955 96 04/11 1631 93 Room Air 04/11 1600 93 Room Air 04/11 1512 98.6 58 18 108/46 90 Room Air 04/11 1142 59 132/56 04/11 1142 59 132/56 04/11 1107 94 Room Air 04/11 0800 92 Room Air Room Air Intake & Output 04/12 0800 04/12 0000 04/11 1600 Intake Total 100 400 Output Total Balance 100 400 Intake, Oral 100 400 Physical Exam General Appearance: Alert, Oriented X3, Cooperative, No Acute Distress Other Physical Findings: HEENT: Atraumatic, EOMI, Mucous Membr. moist/pink Neck: No JVD Cardiovascular: Regular Rate, Normal S1, Normal S2 Lungs: decreased air entery bilaterally Abdomen: Normal Bowel Sounds, Soft, Current Medications: Current Medications Sig/Rick Start time Last Medication Dose Route Stop Time Status Admin Acetaminophen 650 MG Q4P PRN 04/03 1200 AC 04/09 PO 0507 Albuterol Sulfate 3 ML BID 04/07 2200 AC 04/11 INH 1950 Apixaban 2.5 MG BID 04/06 2200 AC 04/11 PO 2201 Aspirin 81 MG DAILY 04/03 1000 AC 04/11 PO 1143 Carvedilol 25 MG BID 04/03 1000 AC 04/11 PO 1142 Ciprofloxacin 500 MG Q24H 04/08 1330 AC 04/11 PO 04/12 1329 1324 Ferrous Gluconate 325 MG DAILY 04/03 1000 AC 04/11 PO 1142 Furosemide 40 MG DAILY 04/11 1000 AC 04/11 IV 1141 Guaifenesin 10 ML Q6P PRN 04/07 0530 AC 04/10 PO 0338 Guaifenesin 600 MG Q12 04/06 1000 AC 04/11 PO 2201 Hydromorphone HCl 1 MG Q8 PRN 04/10 0905 AC 04/11 PO 2318 Hydroxychloroquine 200 MG BID 04/02 220 AC 04/11 Sulfate PO 2201 Hyoscyamine 0.125 MG Q4 HRS NEEDED PRN 04/11 1900 AC PO Hyoscyamine 0.125 MG ONCE ONE 04/11 1745 DC 04/11 PO 04/11 1746 1752 Levothyroxine Sodium 0.025 MG DAILY AC 04/03 0700 AC 04/12 PO 0602 Lidocaine 1 PAT ONCE PRN 04/08 0445 AC 04/08 EXT 0558 Lisinopril 10 MG DAILY 04/03 1000 AC 04/11 PO 1142 Omeprazole 40 MG DAILY AC 04/03 0700 AC 04/12 PO 0601 Polyethylene Glycol 17 GM DAILY 04/09 1411 AC 04/11 PO 1141 Prednisone 10 MG DAILY 04/03 1000 AC 04/11 PO 1142 Senna/Docusate Sodium 2 TAB DAILY NEEDED PRN 04/09 0815 AC 04/11 PO 2317 Sertraline HCl 25 MG DAILY 04/06 1642 AC 04/11 PO 1142 Assessment/Plan Assessment: Patient is a 76-year-old female with h/o RA on plaquenil and prednisone, HTN, HLD, anxiety, possible diastolic CHF, TACO not on CPAP, CKD stage 3, chronic anemia, colonic perforation following a colonoscopy requiring Constance's procedure with hospital course c/b oliguric ATN and demand ischemia (Oct 2014), presenting this admission with dyspnea on exertion, extensive edema, bilateral pleural effusions and elevated troponins with EKG changes in the inferior and lateral leads (T-wave inversion) and anemia. Patient was admitted to tele floor for management of following conditions: Acute on chronic diastolic CHF Decompensated diastolic heart failure. Patient reports a h/o CHF and was on lasix in the past but most recently this was discontinued after her recent hospitalization at [facility] (Dec 2016). CXR shows bibasilar effusions and possible pneumonia, right increased since thora and mild vascular congestion. Echo on 04/02/17 revealed EF of 60% and LV hypertrophy. Thoracentesis was performed on 04/04/17 removed 1L which revealed transudate with negative Cytology; most likely related to CHF. last CXR after thoracethesis showed better aeration - on Lasix 40 Iv daily - Continue carvedilol 25 mg twice a day - Appreciate cardiology recommendations -hard to get I and O since patient is incontinet Dyspnea, cough Patient had dyspnea, cough with sputum and culture revealed Pseudomonas. Dyspnea most likely was multifactorial. ow grade fever wbc increase. Flu swab negative. - mucomyst and incentive spriometry -c/w 10 mg prednisone daily ( for RA) - Continue Ciprofluxacin PO (consider total dose for 10 days) NSTEMI Atypical chest pain with elevated troponin and EKG changes showing evolving T- wave inversions. She was complaining of chest pain again this morning. Repeat troponin was 0.55, stable from last time. was on IV heparin for 48h. - Trop trended down to 0.51 - Cardiology consult appreciated - c/w Atorvastatin, aspirin Anemia acute on chronic Black stool in colostomy bag, guaic negatvie, likely due to iron supplements. Hb remained stable during hospitalization. - Continue iron supplement Generalized pain Patient notes that she has generalized pain that she attributes to osteoarthritis Patient is on eliquis. She is a history of DVT. Venous doppler lower ext negative Gave 650 mg Tylenol every 4 hours when necessary - continue Dilaudid 1mg PO PRN Q 8 Asymptomatic UTI She denied any urinary symptoms, frequency, urgency, dysuria. Urine analysis was normal. However urine cultures showed Escherichia coli. She remained afebrile with a normal WBC count. She was monitored off from antibiotics. Patient was incontinant in the baseline. Patient recieved ceftriaxone initially for pneumonia which covered E coli as well. - continue to monitor History of DVT on eliqus she Was admitted to [facility] in July 2016 and she was found to have DVT and she was discharged on eliqus. Eliqus was on hold for 48 hours for anticipated thoracocentesis. She was on IV heparin drip for 48 hours and later eliqus was resumed after thoracocentesis. - Continue eliqus Disposition Baseline ambulates with walker. however reluctant to work with PT, family meeting on Friday DVT prophylaxis with apixiban Heart healthy diet DNR/DNI Problem List: 1. Abdominal pain 2. Renal failure Pain Ratin Pain Location: abdomen Pain Goal: Pain 4 or less Pain Plan: same regimen Tomorrow's Labs & Rationales: Lucien Stoddard MD 04/12/17 0914: Subjective Review of Systems Constitutional: Reports: see HPI. Attending MD Review Statement Attending Statement Attending MD Statement: examined this patient, discuss w/resident/PA/BENCH MANAGER, agreed w/resident/PA/BENCH MANAGER, discussed with family, reviewed EMR data (avail), discussed with nursing, discussed with case mgmt, reviewed images, amended to note Attending Assessment/Plan: Impression 76 year old woman -pleural effusions likely chf/fluid overload -?aspiration - pseudomonas in sputum -hx of Left UE cephalic vein DVT in 2014, then per records from [facility] report of DVT (second event) - on Eliquis Plan -f/u ID recs for abx - on ciprofloxacin -transudative pleural fluid -abdominal discomfort is chronic on chronic pain meds - today pain is 5, no n/v DVT prophylaxis at all times DC planning - plan for Friday to have a family meeting regarding disposition plan
[2017-04-12 07:00] VITALS: BP 118/60
[2017-04-12 14:00] VITALS: BP 100/60
[2017-04-12 22:54] VITALS: BP 90/50
[2017-04-13 07:00] VITALS: BP 128/66
--- NOTE | 2017-04-13 08:49 | PN- Housestaff ---
Denton Mcdermott MD,[facility] 04/13/17 0849: Subjective Follow-up For: CHF Pneumonia on Cipro Pleaural effusion s/p thora Anemia Tele-Events Since Last Visit: SB SR 50-60 Subjective: Patient visited today, was lying in bed comfortably in no acute distress, was alert and oriented. Patient had significant improvement in general appearance and symptoms. Reported improved shortness of breathing and cough. She was able to sit out of bed yesterday. No fever or chills, no shortness of breathing, no chest pain, no other events. Much improvement in chest auscultation, no edema in legs Review of Systems Constitutional: Reports: see HPI. Objective Last 24 Hrs of Vital Signs/I&O Vital Signs Date Time Temp Pulse Resp B/P B/P Pulse O2 O2 Flow FiO2 Mean Ox Delivery Rate 04/13 1600 Room Air 04/13 1400 97.0 58 20 90/52 94 Room Air 04/13 1040 94 Room Air 04/13 0746 62 128/66 04/13 0746 62 128/66 04/13 0700 98.8 62 22 128/66 94 04/13 0000 Room Air 04/12 2254 97.9 62 24 90/50 94 Room Air 04/12 2200 62 90/50 04/12 1833 93 Room Air Intake & Output 04/13 1600 04/13 0800 04/13 0000 Intake Total 360 Output Total Balance 360 Intake, Oral 360 Number 1 Bowel Movements Patient 126 lb Weight Weight Chair scale Measurement Method Physical Exam General Appearance: Alert, Oriented X3, Cooperative, No Acute Distress Skin: No Significant Lesion HEENT: Atraumatic, EOMI, Mucous Membr. moist/pink Cardiovascular: Regular Rate, Normal S1, Normal S2 Lungs: improved crackels Abdomen: Normal Bowel Sounds, Soft, No Tenderness, colostomy in place Neurological: Normal Speech Extremities: No Edema Current Medications: Current Medications Sig/Rick Start time Last Medication Dose Route Stop Time Status Admin Acetaminophen 650 MG Q4P PRN 04/03 1200 AC 04/09 PO 0507 Albuterol Sulfate 3 ML BID 04/07 2199 AC 04/13 INH 0757 Apixaban 2.5 MG BID 04/06 2199 AC 04/13 PO 0746 Aspirin 81 MG DAILY 04/03 1000 AC 04/13 PO 0745 Carvedilol 25 MG BID 04/03 1000 AC 04/13 PO 0746 Ciprofloxacin 500 MG Q24 04/12 2030 AC 04/13 PO 04/16 2028 0746 Ferrous Gluconate 325 MG DAILY 04/03 1000 AC 04/13 PO 0744 Furosemide 40 MG DAILY 04/11 1000 AC 04/13 IV 0744 Guaifenesin 10 ML Q6P PRN 04/07 0530 AC 04/10 PO 0338 Guaifenesin 600 MG Q12 04/06 1000 AC 04/13 PO 0746 Hydromorphone HCl 1 MG Q8 PRN 04/10 0905 AC 04/13 PO 1657 Hydroxychloroquine 200 MG BID 04/02 2202 AC 04/13 Sulfate PO 0746 Levothyroxine Sodium 0.025 MG DAILY AC 04/03 0700 AC 04/13 PO 0606 Lidocaine 1 PAT ONCE PRN 04/08 0445 AC 04/08 EXT 0558 Lisinopril 10 MG DAILY 04/03 1000 AC 04/13 PO 0746 Omeprazole 40 MG DAILY AC 04/03 0700 AC 04/13 PO 0606 Polyethylene Glycol 17 GM DAILY 04/09 1411 AC 04/13 PO 0742 Potassium Chloride 40 MEQ ONCE ONE 04/13 1400 DC 04/13 PO 04/13 1401 1416 Prednisone 10 MG DAILY 04/03 1000 AC 04/13 PO 0745 Senna/Docusate Sodium 2 TAB DAILY NEEDED PRN 04/09 0815 AC 04/11 PO 2317 Sertraline HCl 25 MG DAILY 04/06 1642 AC 04/13 PO 0745 Last 24 Hrs of Lab/Rubin Results Last 24 Hrs of Labs/Mics: Laboratory Tests 04/13/17 0600: Anion Gap 10, Estimated GFR 29 L, BUN/Creatinine Ratio 25.3 H Assessment/Plan Assessment: Patient is a 76-year-old female with h/o RA on plaquenil and prednisone, HTN, HLD, anxiety, possible diastolic CHF, TACO not on CPAP, CKD stage 3, chronic anemia, colonic perforation following a colonoscopy requiring Constance's procedure with hospital course c/b oliguric ATN and demand ischemia (Oct 2014), presenting this admission with dyspnea on exertion, extensive edema, bilateral pleural effusions and elevated troponins with EKG changes in the inferior and lateral leads (T-wave inversion) and anemia. Patient was admitted to tele floor for management of following conditions: Acute on chronic diastolic CHF Decompensated diastolic heart failure. Patient reports a h/o CHF and was on lasix in the past but most recently this was discontinued after her recent hospitalization at [place] (Dec 2016). CXR shows bibasilar effusions and possible pneumonia, right increased since thora and mild vascular congestion. Echo on 04/02/17 revealed EF of 60% and LV hypertrophy. Thoracentesis was performed on 04/04/17 removed 1L which revealed transudate with negative Cytology; most likely related to CHF. last CXR after thoracethesis showed better aeration - on Lasix 40 Iv daily - Continue carvedilol 25 mg twice a day - Appreciate cardiology recommendations - hard to get I and O since patient is incontinet - family meeting tomorrow Dyspnea, cough Patient had dyspnea, cough with sputum and culture revealed Pseudomonas. Dyspnea most likely was multifactorial. ow grade fever wbc increase. Flu swab negative. Symptoms improved well. - mucomyst and incentive spriometry - c/w 10 mg prednisone daily ( for RA) - Continue Ciprofluxacin PO (consider total dose for 10 days) NSTEMI Atypical chest pain with elevated troponin and EKG changes showing evolving T- wave inversions. She was complaining of chest pain again this morning. Repeat troponin was 0.55, stable from last time. was on IV heparin for 48h. - Trop trended down to 0.51 - Cardiology consult appreciated - c/w Atorvastatin, aspirin Anemia acute on chronic Black stool in colostomy bag, guaic negatvie, likely due to iron supplements. Hb remained stable during hospitalization. - Continue iron supplement Generalized pain Patient notes that she has generalized pain that she attributes to osteoarthritis Patient is on eliquis. She is a history of DVT. Venous doppler lower ext negative Gave 650 mg Tylenol every 4 hours when necessary - continue Dilaudid 1mg PO PRN Q 8 Asymptomatic UTI She denied any urinary symptoms, frequency, urgency, dysuria. Urine analysis was normal. However urine cultures showed Escherichia coli. She remained afebrile with a normal WBC count. She was monitored off from antibiotics. Patient was incontinant in the baseline. Patient recieved ceftriaxone initially for pneumonia which covered E coli as well. - continue to monitor History of DVT on eliqus she Was admitted to [facility] in July 2016 and she was found to have DVT and she was discharged on eliqus. Eliqus was on hold for 48 hours for anticipated thoracocentesis. She was on IV heparin drip for 48 hours and later eliqus was resumed after thoracocentesis. - Continue eliqus Disposition Baseline ambulates with walker. however reluctant to work with PT, family meeting on Friday DVT prophylaxis with apixiban Heart healthy diet DNR/DNI Problem List: 1. NSTEMI (non-ST elevated myocardial infarction) 2. Pneumonia 3. CHF (congestive heart failure) Pain Ratin Pain Location: none at the time of interview Pain Goal: Pain 4 or less Pain Plan: Continue current plan Tomorrow's Labs & Rationales: CbC BEP Lucien Zuniga MD 04/13/17 1027: Attending MD Review Statement Attending Statement Attending MD Statement: examined this patient, discuss w/resident/PA/DRIVE MAN, agreed w/resident/PA/DRIVE MAN, discussed with family, reviewed EMR data (avail), discussed with nursing, discussed with case mgmt, reviewed images, amended to note Attending Assessment/Plan: Impression 76 year old woman -pleural effusions likely chf/fluid overload -?aspiration - pseudomonas in sputum -hx of Left UE cephalic vein DVT in 2014, then per records from [facility] report of DVT (second event) - on Eliquis Plan -on ciprofloxacin, will continue per ID recommendations -transudative pleural fluid -abdominal discomfort is chronic on chronic pain meds DVT prophylaxis at all times DC planning - plan for Friday to have a family meeting regarding disposition plan
[2017-04-13 14:00] VITALS: BP 90/52
[2017-04-13 23:05] VITALS: BP 98/56
[2017-04-14 06:26] VITALS: BP 108/58
[2017-04-14 08:17] LABS: ABSOLUTE BASOPHIL COUNT 0 /CUMM (0.0-0.2); ABSOLUTE EOSINOPHIL COUNT 0 /CUMM (0.0-0.7); ABSOLUTE GRANULOCYTE CT 5.5 /CUMM (1.4-6.5); ABSOLUTE LYMPH COUNT 1.8 /CUMM (1.2-3.4); ABSOLUTE MONOCYTE COUNT 0.4 /CUMM (0.10-0.60); BASOPHIL % 0.4 % (0.0-2.0); EOSINOPHIL % 0 % (0-5); GRANULOCYTE % 71.1 % (42.2-75.2); HEMATOCRIT 24.4 % (37-47); MEAN CORPUSCULAR HGB 27.9 PG (27.0-31.0); MEAN CORPUSCULAR HGB CONC 32.2 G/DL (33.0-37.0); MEAN CORPUSCULAR VOLUME 86.6 FL (81.0-99.0); MEAN PLATELET VOLUME 8.7 FL (7.4-10.4); PLATELET COUNT 229 /CUMM (130-400); RBC DISTRIBUTION WIDTH 18.2 % (11.5-14.5); RED BLOOD CELL CT 2.82 /CUMM (4.20-5.40); WHITE BLOOD CELL COUNT 7.8 /CUMM (4.8-10.8)
--- NOTE | 2017-04-14 08:25 | PN- Housestaff ---
Denton Mcdermott MD,Ami 04/14/17 0825: Subjective Follow-up For: CHF Pneumonia on Cipro Pleaural effusion s/p thora Anemia Tele-Events Since Last Visit: SB SR 56-63 Subjective: Patient visited today, was lying in bed comfortably in no acute distress, was alert and oriented. Again reported improvement compared to yesterday. No fever or chills, no shortness of breathing, no chest pain, no other events. Planned for family meeting today regarding planning, considering proceed with home hospice Review of Systems Constitutional: Reports: see HPI. Objective Last 24 Hrs of Vital Signs/I&O Vital Signs Date Time Temp Pulse Resp B/P B/P Pulse O2 O2 Flow FiO2 Mean Ox Delivery Rate 04/14 1047 59 112/50 04/14 1047 59 112/50 04/14 0915 94 Room Air 04/14 0626 97.9 60 18 108/58 94 Room Air 04/14 0240 93 Room Air 04/13 2305 98.0 63 22 98/56 94 Room Air 04/13 2101 62 116/60 04/13 1920 93 Room Air 04/13 1600 Room Air Intake & Output 04/14 1600 04/14 0800 04/14 0000 Intake Total 400 120 240 Output Total Balance 400 120 240 Intake, Oral 400 120 240 Physical Exam General Appearance: Alert, Oriented X3, Cooperative, No Acute Distress Skin: No Significant Lesion Skin Temp/Moisture Exam: Warm/Dry Sepsis Skin Exam (color): Normal for Ethnicity HEENT: Atraumatic, EOMI, Mucous Membr. moist/pink Cardiovascular: Regular Rate, Normal S1, Normal S2 Lungs: improved wheezing bilaterally Abdomen: Soft, No Tenderness Extremities: No Edema Current Medications: Current Medications Sig/Rick Start time Last Medication Dose Route Stop Time Status Admin Acetaminophen 650 MG .STK-MED ONE 04/13 2056 DC PO 04/13 2057 Acetaminophen 650 MG Q4P PRN 04/03 1200 AC 04/13 PO 2057 Albuterol Sulfate 3 ML BID 04/07 2199 AC 04/14 INH 0841 Apixaban 2.5 MG BID 04/06 2199 AC 04/14 PO 1043 Aspirin 81 MG DAILY 04/03 1000 AC 04/14 PO 104 Carvedilol 25 MG BID 04/03 1000 AC 04/14 PO 1047 Ciprofloxacin 500 MG Q24 01/20 2030 AC 04/14 PO 04/16 2028 1043 Ferrous Gluconate 325 MG DAILY 04/03 1000 AC 04/14 PO 1043 Furosemide 40 MG DAILY 04/11 1000 DC 04/13 IV 0744 Guaifenesin 10 ML Q6P PRN 04/07 0530 AC 04/10 PO 0338 Guaifenesin 600 MG Q12 04/06 1000 AC 04/14 PO 1043 Hydromorphone HCl 1 MG Q8 PRN 04/10 0905 AC 04/14 PO 1041 Hydroxychloroquine 200 MG BID 04/02 220 AC 04/14 Sulfate PO 1043 Levothyroxine Sodium 0.025 MG DAILY AC 04/03 0700 AC 04/14 PO 0504 Lidocaine 1 PAT ONCE PRN 04/08 0445 AC 04/08 EXT 0558 Lisinopril 10 MG DAILY 04/03 1000 AC 04/14 PO 1047 Omeprazole 40 MG DAILY AC 04/03 0700 AC 04/14 PO 0504 Polyethylene Glycol 17 GM DAILY 04/09 1411 AC 04/14 PO 1042 Prednisone 10 MG DAILY 04/03 1000 AC 04/14 PO 1043 Senna/Docusate Sodium 2 TAB DAILY NEEDED PRN 04/09 0815 AC 04/11 PO 2317 Sertraline HCl 25 MG DAILY 04/06 1642 AC 04/14 PO 1043 Last 24 Hrs of Lab/Rubin Results Last 24 Hrs of Labs/Mics: Laboratory Tests 04/14/17 0655: Anion Gap 9, Estimated GFR 26 L, BUN/Creatinine Ratio 21.1, CBC w Diff NO MAN DIFF REQ, RBC 2.82 L, MCV 86.6, MCH 27.9, RDW 18.2 H, MPV 8.7, Gran % 71.1, Lymphocytes % 22.8, Monocytes % 5.7, Eosinophils % 0, Basophils % 0.4, Absolute Granulocytes 5.5, Absolute Lymphocytes 1.8, Absolute Monocytes 0.4, Absolute Eosinophils 0, Absolute Basophils 0, PUBS MCHC 32.2 L Assessment/Plan Assessment: Patient is a 76-year-old female with h/o RA on plaquenil and prednisone, HTN, HLD, anxiety, possible diastolic CHF, TACO not on CPAP, CKD stage 3, chronic anemia, colonic perforation following a colonoscopy requiring Constance's procedure with hospital course c/b oliguric ATN and demand ischemia (Oct 2014), presenting this admission with dyspnea on exertion, extensive edema, bilateral pleural effusions and elevated troponins with EKG changes in the inferior and lateral leads (T-wave inversion) and anemia. Patient was admitted to tele floor for management of following conditions: Acute on chronic diastolic CHF Decompensated diastolic heart failure. Patient reports a h/o CHF and was on lasix in the past but most recently this was discontinued after her recent hospitalization at [place] (Dec 2016). CXR shows bibasilar effusions and possible pneumonia, right increased since thora and mild vascular congestion. Echo on 04/02/17 revealed EF of 60% and LV hypertrophy. Thoracentesis was performed on 04/04/17 removed 1L which revealed transudate with negative Cytology; most likely related to CHF. last CXR after thoracethesis showed better aeration Improving well - on Lasix 40 Iv daily - Continue carvedilol 25 mg twice a day - Appreciate cardiology recommendations - hard to get I and O since patient is incontinet - family meeting today Dyspnea, cough Patient had dyspnea, cough with sputum and culture revealed Pseudomonas. Dyspnea most likely was multifactorial. ow grade fever wbc increase. Flu swab negative. Symptoms improved well. - mucomyst and incentive spriometry - c/w 10 mg prednisone daily ( for RA) - Continue Ciprofluxacin PO (consider total dose for 10 days) NSTEMI Atypical chest pain with elevated troponin and EKG changes showing evolving T- wave inversions. She was complaining of chest pain again this morning. Repeat troponin was 0.55, stable from last time. was on IV heparin for 48h. - Trop trended down to 0.51 - Cardiology consult appreciated - c/w Atorvastatin, aspirin Anemia acute on chronic Black stool in colostomy bag, [facility], likely due to iron supplements. Hb remained stable during hospitalization. - Continue iron supplement Generalized pain Patient notes that she has generalized pain that she attributes to osteoarthritis Patient is on eliquis. She is a history of DVT. Venous doppler lower ext negative Gave 650 mg Tylenol every 4 hours when necessary - continue Dilaudid 1mg PO PRN Q 8 Asymptomatic UTI She denied any urinary symptoms, frequency, urgency, dysuria. Urine analysis was normal. However urine cultures showed Escherichia coli. She remained afebrile with a normal WBC count. She was monitored off from antibiotics. Patient was incontinant in the baseline. Patient recieved ceftriaxone initially for pneumonia which covered E coli as well. - continue to monitor History of DVT on eliqus she Was admitted to [facility] in July 2016 and she was found to have DVT and she was discharged on eliqus. Eliqus was on hold for 48 hours for anticipated thoracocentesis. She was on IV heparin drip for 48 hours and later eliqus was resumed after thoracocentesis. - Continue eliqus Disposition Baseline ambulates with walker. however reluctant to work with PT, family meeting on Friday DVT prophylaxis with apixiban Heart healthy diet DNR/DNI Problem List: 1. NSTEMI (non-ST elevated myocardial infarction) 2. Pneumonia 3. CHF (congestive heart failure) Pain Ratin Pain Location: None at the time of interview Pain Goal: Pain 4 or less Pain Plan: Continue current plan Tomorrow's Labs & Rationales: Miryam Montero 04/14/17 1601: Attending MD Review Statement Attending Statement Attending MD Statement: examined this patient, discuss w/resident/PA/CARDROOM MANAGER, agreed w/resident/PA/CARDROOM MANAGER, discussed with family, reviewed EMR data (avail), discussed with nursing, discussed with case mgmt Attending Assessment/Plan: had a family meeting with pt sons about the care plan and brought up the home hospice. We will have hospice discuss their services with the pts son and then they will let us know . Pt refuses rehab option and says she is tired of coming back and forth to the hospital and would like to be at home. dc iv lasix in view of increasing creatinine. plan is to f/u on renal panel in am and decided on po lasix dose starting tomorrow.
--- NOTE | 2017-04-14 10:10 | PN- Pulmonary ---
Subjective HPI/Critical Care Issues: Patient seen and examined this morning. Family meeting is arranged for today. No major changes overnight. Objective Current Medications: Current Medications Sig/Rick Start time Last Medication Dose Route Stop Time Status Admin Acetaminophen 650 MG .STK-MED ONE 04/13 2056 DC PO 04/13 2057 Acetaminophen 650 MG Q4P PRN 04/03 1200 AC 04/13 PO 2057 Albuterol Sulfate 3 ML BID 04/07 2199 AC 04/14 INH 0841 Apixaban 2.5 MG BID 04/06 220 AC 04/13 PO 2057 Aspirin 81 MG DAILY 04/03 1000 AC 04/13 PO 0745 Carvedilol 25 MG BID 04/03 1000 AC 04/13 PO 210 Ciprofloxacin 500 MG Q24 04/12 2030 AC 04/13 PO 04/16 2028 0746 Ferrous Gluconate 325 MG DAILY 04/03 1000 AC 04/13 PO 0744 Furosemide 40 MG DAILY 04/11 1000 DC 04/13 IV 0744 Guaifenesin 10 ML Q6P PRN 04/07 0530 AC 04/10 PO 0338 Guaifenesin 600 MG Q12 04/06 1000 AC 04/13 PO 2057 Hydromorphone HCl 1 MG Q8 PRN 04/10 0905 AC 04/14 PO 0226 Hydroxychloroquine 200 MG BID 04/02 2201 AC 04/13 Sulfate PO 2057 Levothyroxine Sodium 0.025 MG DAILY AC 04/03 0700 AC 04/14 PO 0504 Lidocaine 1 PAT ONCE PRN 04/08 0445 AC 04/08 EXT 0558 Lisinopril 10 MG DAILY 04/03 1000 AC 04/13 PO 0746 Omeprazole 40 MG DAILY AC 04/03 0700 AC 04/14 PO 0504 Polyethylene Glycol 17 GM DAILY 04/09 1411 AC 04/13 PO 0742 Potassium Chloride 40 MEQ ONCE ONE 04/13 1400 DC 04/13 PO 04/13 1401 1416 Prednisone 10 MG DAILY 04/03 1000 AC 04/13 PO 0745 Senna/Docusate Sodium 2 TAB DAILY NEEDED PRN 04/09 0815 AC 04/11 PO 2317 Sertraline HCl 25 MG DAILY 04/06 1642 AC 04/13 PO 0745 Vital Signs & I&O Last 24 Hrs of Vitals and I&O: Vital Signs Date Time Temp Pulse Resp B/P B/P Pulse O2 O2 Flow FiO2 Mean Ox Delivery Rate 04/14 0915 94 Room Air 04/14 0626 97.9 60 18 108/58 94 Room Air 04/14 0240 93 Room Air 04/13 2305 98.0 63 22 98/56 94 Room Air 04/13 2101 62 116/60 04/13 1920 93 Room Air 04/13 1600 Room Air 04/13 1400 97.0 58 20 90/52 94 Room Air 04/13 1040 94 Room Air Intake & Output 04/14 1600 04/14 0800 04/14 0000 Intake Total 120 240 Output Total Balance 120 240 Intake, Oral 120 240 Exam Other Physical Findings: gen awake and alert heent ncat cvs s1, s2 lungs diminished at bases abd soft, some chronic tenderness ext without edema Results Last 24 Hrs of Lab Results: Laboratory Tests 04/14/17 0655: Anion Gap 9, Estimated GFR 26 L, BUN/Creatinine Ratio 21.1, CBC w Diff NO MAN DIFF REQ, RBC 2.82 L, MCV 86.6, MCH 27.9, RDW 18.2 H, MPV 8.7, Gran % 71.1, Lymphocytes % 22.8, Monocytes % 5.7, Eosinophils % 0, Basophils % 0.4, Absolute Granulocytes 5.5, Absolute Lymphocytes 1.8, Absolute Monocytes 0.4, Absolute Eosinophils 0, Absolute Basophils 0, PUBS MCHC 32.2 L Impression/Plan Impression/Plan Impression/Plan: Impression 76 year old woman -pleural effusions likely chf/fluid overload -?aspiration - pseudomonas in sputum -hx of Left UE cephalic vein DVT in 2014, then per records from [facility] report of DVT (second event) - on Eliquis Plan -on ciprofloxacin, will continue per ID recommendations -transudative pleural fluid -abdominal discomfort is chronic on chronic pain meds DVT prophylaxis at all times DC planning - plan for Friday to have a family meeting regarding disposition plan
[2017-04-14 15:00] VITALS: BP 110/58
--- NOTE | 2017-04-14 15:34 | PN- Infect Dx ---
Subjective Subjective: Afebrile on steroids. She feels improved with no cough or shortness of breath. Objective Last 24 Hrs of Vital Signs/I&O Vital Signs Date Time Temp Pulse Resp B/P B/P Pulse O2 O2 Flow FiO2 Mean Ox Delivery Rate 04/14 1500 97.7 58 16 110/58 91 Room Air 04/14 1047 59 112/50 04/14 1047 59 112/50 04/14 0915 94 Room Air 04/14 0626 97.9 60 18 108/58 94 Room Air 04/14 0240 93 Room Air 04/13 2305 98.0 63 22 98/56 94 Room Air 04/13 2101 62 116/60 04/13 1920 93 Room Air 04/13 1600 Room Air Intake & Output 04/14 1600 04/14 0800 04/14 0000 Intake Total 400 120 240 Output Total Balance 400 120 240 Intake, Oral 400 120 240 Physical Exam Other Physical Findings: She appears comfortable in no acute distress Lungs decreased breath sounds at the right base Heart regular rhythm with no murmur Extremities no cyanosis, clubbing or edema Results Last 24 Hours of Lab Results: Laboratory Tests 04/14 0655 Chemistry Sodium (137 - 145 mmol/L) 140 Potassium (3.5 - 5.1 mmol/L) 4.0 Chloride (98 - 107 mmol/L) 101 Carbon Dioxide (22 - 30 mmol/L) 30 Anion Gap (5 - 16) 9 BUN (7 - 17 mg/dL) 40 H Creatinine (0.5 - 1.0 mg/dL) 1.9 H Estimated GFR (>60 ml/min) 26 L BUN/Creatinine Ratio (7 - 25 %) 21.1 Hematology CBC w Diff NO MAN DIFF REQ WBC (4.8 - 10.8 /CUMM) 7.8 RBC (4.20 - 5.40 /CUMM) 2.82 L Hgb (12.0 - 16.0 G/DL) 7.9 L Hct (37 - 47 %) 24.4 L MCV (81.0 - 99.0 FL) 86.6 MCH (27.0 - 31.0 PG) 27.9 RDW (11.5 - 14.5 %) 18.2 H Plt Count (130 - 400 /CUMM) 229 MPV (7.4 - 10.4 FL) 8.7 Gran % (42.2 - 75.2 %) 71.1 Lymphocytes % (20.5 - 51.1 %) 22.8 Monocytes % (1.7 - 9.3 %) 5.7 Eosinophils % (0 - 5 %) 0 Basophils % (0.0 - 2.0 %) 0.4 Absolute Granulocytes (1.4 - 6.5 /CUMM) 5.5 Absolute Lymphocytes (1.2 - 3.4 /CUMM) 1.8 Absolute Monocytes (0.10 - 0.60 /CUMM) 0.4 Absolute Eosinophils (0.0 - 0.7 /CUMM) 0 Absolute Basophils (0.0 - 0.2 /CUMM) 0 PUBS MCHC (33.0 - 37.0 G/DL) 32.2 L Last 24 Hours of Rubin Results: No new cultures Assessment/Plan Impression: Stable, with temperatures and white blood cell count remaining normal (on steroids) and on Ciprofloxacin, Day 6 of treatment for Pseudomonas bronchitis/ pneumonia. Suggestion: 1. Continue Ciprofloxacin to complete a 10 day course
[2017-04-14 22:00] VITALS: BP 128/62
[2017-04-15 07:39] VITALS: BP 142/70
--- NOTE | 2017-04-15 08:42 | PN- Housestaff ---
Denton Mcdermott MD,Ami 04/15/17 0841: Subjective Follow-up For: CHF Pneumonia on Cipro Pleaural effusion s/p thora Anemia Tele-Events Since Last Visit: NSR 60-66 Subjective: Patient visited today, was lying in bed comfortably in no acute distress, was alert and oriented. Noted overall is similar compared to yesterday. No fever or chills, no chest pain, no other events. Had family meeting yesterday and they're considering hospice at home. Patient was made off tele and will be transferred [facility]. Review of Systems Constitutional: Reports: see HPI. Objective Last 24 Hrs of Vital Signs/I&O Vital Signs Date Time Temp Pulse Resp B/P B/P Pulse O2 O2 Flow FiO2 Mean Ox Delivery Rate 04/15 1420 98.1 63 18 110/80 95 04/15 1130 97.2 68 20 120/62 91 04/15 0949 60 142/70 04/15 0931 94 Room Air 04/15 0800 94 Room Air 04/15 0739 98.1 66 18 142/70 93 Room Air 04/15 0000 94 Room Air 04/14 2200 98.4 64 20 128/62 94 Room Air 04/14 2102 64 128/62 04/14 1820 94 Room Air 04/14 1600 Room Air Intake & Output 04/15 1600 04/15 0800 04/15 0000 Intake Total 400 150 240 Output Total 0 1 Balance 400 150 239 Intake, Oral 400 150 240 Output, Stool 0 1 Physical Exam General Appearance: Alert, Oriented X3, Cooperative, No Acute Distress, ill looking, depressed HEENT: Atraumatic, EOMI, Mucous Membr. moist/pink Cardiovascular: Regular Rate, Normal S1, Normal S2 Lungs: scattered wheezing Abdomen: Soft, No Tenderness, colostomy Neurological: Normal Speech Extremities: No Edema Current Medications: Current Medications Sig/Rick Start time Last Medication Dose Route Stop Time Status Admin Acetaminophen 650 MG Q4P PRN 04/03 1200 AC 04/13 PO 2057 Albuterol Sulfate 3 ML BID 04/07 2199 AC 04/15 INH 0928 Apixaban 2.5 MG BID 04/06 2199 AC 04/15 PO 0949 Aspirin 81 MG DAILY 04/03 1000 AC 04/15 PO 0949 Carvedilol 25 MG BID 04/03 1000 AC 04/15 PO 0949 Ciprofloxacin 500 MG Q24 04/12 2030 AC 04/15 PO 04/17 202 0950 Ferrous Gluconate 325 MG DAILY 04/03 1000 AC 04/15 PO 0950 Guaifenesin 10 ML Q6P PRN 04/07 0530 AC 04/10 PO 0338 Guaifenesin 600 MG Q12 04/06 1000 AC 04/15 PO 0950 Hydromorphone HCl 1 MG Q8 PRN 04/10 0905 AC 04/15 PO 0559 Hydroxychloroquine 200 MG BID 04/02 2202 AC 04/15 Sulfate PO 0950 Levothyroxine Sodium 0.025 MG DAILY AC 04/03 0700 AC 04/15 PO 0555 Lidocaine 1 PAT ONCE PRN 04/08 0445 AC 04/08 EXT 0558 Lisinopril 10 MG DAILY 04/03 1000 AC 04/15 PO 0950 Omeprazole 40 MG DAILY AC 04/03 0700 AC 04/15 PO 0556 Ondansetron HCl 4 MG ONCE ONE 04/15 1545 AC PO 04/15 1546 Polyethylene Glycol 17 GM DAILY 04/09 1411 AC 04/15 PO 0956 Prednisone 10 MG DAILY 04/03 1000 AC 04/15 PO 0950 Senna/Docusate Sodium 2 TAB DAILY NEEDED PRN 04/09 0815 AC 04/11 PO 2317 Sertraline HCl 25 MG DAILY 04/06 1642 AC 04/15 PO 0950 Last 24 Hrs of Lab/Rubin Results Last 24 Hrs of Labs/Mics: Laboratory Tests 04/15/17 0640: Anion Gap 8, Estimated GFR 24 L, BUN/Creatinine Ratio 19.5 Assessment/Plan Assessment: Patient is a 76-year-old female with h/o RA on plaquenil and prednisone, HTN, HLD, anxiety, possible diastolic CHF, TACO not on CPAP, CKD stage 3, chronic anemia, colonic perforation following a colonoscopy requiring Constance's procedure with hospital course c/b oliguric ATN and demand ischemia (Oct 2014), presenting this admission with dyspnea on exertion, extensive edema, bilateral pleural effusions and elevated troponins with EKG changes in the inferior and lateral leads (T-wave inversion) and anemia. Patient was admitted to tele floor for management of following conditions: Acute on chronic diastolic CHF Decompensated diastolic heart failure. Patient reports a h/o CHF and was on lasix in the past but most recently this was discontinued after her recent hospitalization at [place] (Dec 2016). CXR shows bibasilar effusions and possible pneumonia, right increased since thora and mild vascular congestion. Echo on 04/02/17 revealed EF of 60% and LV hypertrophy. Thoracentesis was performed on 04/04/17 removed 1L which revealed transudate with negative Cytology; most likely related to CHF. last CXR after thoracethesis showed better aeration Improving well - on Lasix on hold - Continue carvedilol 25 mg twice a day - Appreciate cardiology recommendations - hard to get I and O since patient is incontinet - family meeting done, follow up regarding code status - DC tele Dyspnea, cough Patient had dyspnea, cough with sputum and culture revealed Pseudomonas. Dyspnea most likely was multifactorial. ow grade fever wbc increase. Flu swab negative. Symptoms improved well. - mucomyst and incentive spriometry - c/w 10 mg prednisone daily ( for RA) - Continue Ciprofluxacin PO (consider total dose for 10 days) NSTEMI Atypical chest pain with elevated troponin and EKG changes showing evolving T- wave inversions. She was complaining of chest pain again this morning. Repeat troponin was 0.55, stable from last time. was on IV heparin for 48h. - Trop trended down to 0.51 - Cardiology consult appreciated - c/w Atorvastatin, aspirin Anemia acute on chronic Black stool in colostomy bag, guaic negatvie, likely due to iron supplements. Hb remained stable during hospitalization. - Continue iron supplement Generalized pain Patient notes that she has generalized pain that she attributes to osteoarthritis Patient is on eliquis. She is a history of DVT. Venous doppler lower ext negative Gave 650 mg Tylenol every 4 hours when necessary - continue Dilaudid 1mg PO PRN Q 8 Asymptomatic UTI She denied any urinary symptoms, frequency, urgency, dysuria. Urine analysis was normal. However urine cultures showed Escherichia coli. She remained afebrile with a normal WBC count. She was monitored off from antibiotics. Patient was incontinant in the baseline. Patient recieved ceftriaxone initially for pneumonia which covered E coli as well. - continue to monitor History of DVT on eliqus she Was admitted to [facility] in July 2016 and she was found to have DVT and she was discharged on eliqus. Eliqus was on hold for 48 hours for anticipated thoracocentesis. She was on IV heparin drip for 48 hours and later eliqus was resumed after thoracocentesis. - Continue eliqus Disposition Baseline ambulates with walker. however reluctant to work with PT, family meeting on Friday DVT prophylaxis with apixiban Heart healthy diet DNR/DNI Problem List: 1. Pneumonia 2. CHF (congestive heart failure) 3. Pleural effusion 4. NSTEMI (non-ST elevated myocardial infarction) Pain Ratin Pain Location: not at the time of admission had generalized pain Pain Goal: Pain 4 or less Pain Plan: Continue current plan Tomorrow's Labs & Rationales: Miryam Montero 04/15/17 1250: Attending MD Review Statement Attending Statement Attending MD Statement: examined this patient, discuss w/resident/PA/LOG SNAKER, agreed w/resident/PA/LOG SNAKER, reviewed EMR data (avail), discussed with nursing, discussed with case mgmt Attending Assessment/Plan: pt will be transferred to [facility]. Await hospice discussion with family to decide on home hospice. pt willing to go to home hospice. Pneumonia and UTI- cont on po cipro for total of 10 days.
[2017-04-15 11:30] VITALS: BP 120/62
--- NOTE | 2017-04-15 11:30 | PN- Pulmonary ---
Subjective HPI/Critical Care Issues: Patient seen and examined this morning. She is on home hospice evaluation. Objective Current Medications: Current Medications Sig/Rick Start time Last Medication Dose Route Stop Time Status Admin Acetaminophen 650 MG Q4P PRN 04/03 1200 AC 04/13 PO 2058 Albuterol Sulfate 3 ML BID 04/07 2199 AC 04/15 INH 0928 Apixaban 2.5 MG BID 04/06 220 AC 04/15 PO 0949 Aspirin 81 MG DAILY 04/03 1000 AC 04/15 PO 0949 Carvedilol 25 MG BID 04/03 1000 AC 04/15 PO 0949 Ciprofloxacin 500 MG Q24 04/12 2030 AC 04/15 PO 04/16 2028 0950 Ferrous Gluconate 325 MG DAILY 04/03 1000 AC 04/15 PO 0950 Guaifenesin 10 ML Q6P PRN 04/07 0530 AC 04/10 PO 0338 Guaifenesin 600 MG Q12 04/06 1000 AC 04/15 PO 0950 Hydromorphone HCl 1 MG Q8 PRN 04/10 0905 AC 04/15 PO 0559 Hydroxychloroquine 200 MG BID 04/02 220 AC 04/15 Sulfate PO 0950 Levothyroxine Sodium 0.025 MG DAILY AC 04/03 0700 AC 04/15 PO 0555 Lidocaine 1 PAT ONCE PRN 04/08 0445 AC 04/08 EXT 0558 Lisinopril 10 MG DAILY 04/03 1000 AC 04/15 PO 0950 Omeprazole 40 MG DAILY AC 04/03 0700 AC 04/15 PO 0556 Polyethylene Glycol 17 GM DAILY 04/09 1411 AC 04/15 PO 0956 Prednisone 10 MG DAILY 04/03 1000 AC 04/15 PO 0950 Senna/Docusate Sodium 2 TAB DAILY NEEDED PRN 04/09 0815 AC 04/11 PO 2317 Sertraline HCl 25 MG DAILY 04/06 1642 AC 04/15 PO 0950 Vital Signs & I&O Last 24 Hrs of Vitals and I&O: Vital Signs Date Time Temp Pulse Resp B/P B/P Pulse O2 O2 Flow FiO2 Mean Ox Delivery Rate 04/15 0949 60 142/70 04/15 0931 94 Room Air 04/15 0800 94 Room Air 04/15 0739 98.1 66 18 142/70 93 Room Air 04/15 0000 94 Room Air 04/14 2200 98.4 64 20 128/62 94 Room Air 04/14 2102 64 128/62 04/14 1820 94 Room Air 04/14 1600 Room Air 04/14 1500 97.7 58 16 110/58 91 Room Air Intake & Output 04/15 1600 04/15 0800 04/15 0000 Intake Total 150 240 Output Total 0 1 Balance 150 239 Intake, Oral 150 240 Output, Stool 0 1 Exam Other Physical Findings: gen awake and alert heent ncat cvs s1, s2 lungs diminished at bases abd soft, some chronic tenderness ext without edema Results Last 24 Hrs of Lab Results: Laboratory Tests 04/15/17 0640: Anion Gap 8, Estimated GFR 24 L, BUN/Creatinine Ratio 19.5 Impression/Plan Impression/Plan Impression/Plan: Impression 76 year old woman -pleural effusions likely chf/fluid overload -?aspiration - pseudomonas in sputum -hx of Left UE cephalic vein DVT in 2014, then per records from [facility] report of DVT (second event) - on Eliquis Plan -on ciprofloxacin, will continue per ID recommendations -transudative pleural fluid -abdominal discomfort is chronic on chronic pain meds DVT prophylaxis at all times DC planning - plan for Friday to have a family meeting regarding disposition plan
[2017-04-15 14:20] VITALS: BP 110/80
[2017-04-15 21:58] VITALS: BP 116/68
[2017-04-16 06:09] VITALS: BP 98/58
--- NOTE | 2017-04-16 07:28 | PN- Housestaff ---
[facility] Subjective Follow-up For: CHF Pneumonia on Cipro Pleaural effusion s/p thora Anemia Subjective: No overnight events. Patient remained afebrile overnight. Seen and examined this morning. Patient looks depressed. She is feeling fatigued and she doesn't want any intervention. Patient's H&H has dropped but patient refused blood transfusion. Patient reported that any blood transfusion did not change her dmitry. She denied any chest pain, short of breath, nausea, vomiting, abdominal pain and dysuria. Family will meet with hospice team to discuss about home hospice. Review of Systems Constitutional: Reports: see HPI. Objective Last 24 Hrs of Vital Signs/I&O Vital Signs Date Time Temp Pulse Resp B/P B/P Pulse O2 O2 Flow FiO2 Mean Ox Delivery Rate 04/16 0800 Room Air 04/16 0609 97.6 53 20 98/58 97 Room Air 04/16 0000 95 Room Air 04/15 2158 98.2 55 18 116/68 94 Room Air 04/15 2020 63 110/80 04/15 1600 Room Air 04/15 1420 98.1 63 18 110/80 95 Intake & Output 04/16 1600 04/16 0800 04/16 0000 Intake Total 202 360 480 Output Total 50 Balance 202 310 480 Intake, Oral 202 360 480 Output, Stool 50 Patient 122 lb Weight Weight Bed scale Measurement Method Physical Exam General Appearance: Alert, Oriented X3, Cooperative Skin Temp/Moisture Exam: Warm/Dry Sepsis Skin Exam (color): Normal for Ethnicity HEENT: Atraumatic, PERRLA, EOMI Neck: Supple Cardiovascular: Normal S1, Normal S2 Lungs: Decreased breath sounds b/l Abdomen: Soft, No Tenderness, colostomy Neurological: Normal Speech, Normal Tone Extremities: No Edema Assessment/Plan Assessment: Patient is a 76-year-old female with h/o RA on plaquenil and prednisone, HTN, HLD, anxiety, possible diastolic CHF, TACO not on CPAP, CKD stage 3, chronic anemia, colonic perforation following a colonoscopy requiring Constance's procedure with hospital course c/b oliguric ATN and demand ischemia (Oct 2014), presenting this admission with dyspnea on exertion, extensive edema, bilateral pleural effusions and elevated troponins with EKG changes in the inferior and lateral leads (T-wave inversion) and anemia. Patient was admitted to tele floor for management of following conditions: Acute on chronic diastolic CHF Decompensated diastolic heart failure. Patient reports a h/o CHF and was on lasix in the past but most recently this was discontinued after her recent hospitalization at [place] (Dec 2016). CXR shows bibasilar effusions and possible pneumonia, right increased since thora and mild vascular congestion. Echo on 04/02/17 revealed EF of 60% and LV hypertrophy. Thoracentesis was performed on 04/04/17 removed 1L which revealed transudate with negative Cytology; most likely related to CHF. last CXR after thoracethesis showed better aeration Improving well - Continue carvedilol 25 mg twice a day - Appreciate cardiology recommendations - hard to get I and O since patient is incontinet - family meeting done, follow up regarding code status Dyspnea, cough Patient had dyspnea, cough with sputum and culture revealed Pseudomonas. Dyspnea most likely was multifactorial. ow grade fever wbc increase. Flu swab negative. Symptoms improved well. - mucomyst and incentive spriometry - c/w 10 mg prednisone daily ( for RA) - Continue Ciprofluxacin PO (consider total dose for 10 days) NSTEMI Atypical chest pain with elevated troponin and EKG changes showing evolving T- wave inversions. She was complaining of chest pain again this morning. Repeat troponin was 0.55, stable from last time. was on IV heparin for 48h. - Trop trended down to 0.51 - Cardiology consult appreciated - c/w Atorvastatin, aspirin Anemia acute on chronic Black stool in colostomy bag, guaic negatvie, likely due to iron supplements. Hb remained stable during hospitalization. - Continue iron supplement -Her H&H has dropped to 6.7/20.8 from 7.9/24.4 but patient refused blood transfusion. Generalized pain Patient notes that she has generalized pain that she attributes to osteoarthritis Patient is on eliquis. She is a history of DVT. Venous doppler lower ext negative Gave 650 mg Tylenol every 4 hours when necessary - continue Dilaudid 1mg PO PRN Q 8 Asymptomatic UTI She denied any urinary symptoms, frequency, urgency, dysuria. Urine analysis was normal. However urine cultures showed Escherichia coli. She remained afebrile with a normal WBC count. She was monitored off from antibiotics. Patient was incontinant in the baseline. Patient recieved ceftriaxone initially for pneumonia which covered E coli as well. - continue to monitor History of DVT on eliqus she Was admitted to [facility] in July 2016 and she was found to have DVT and she was discharged on eliqus. Eliqus was on hold for 48 hours for anticipated thoracocentesis. She was on IV heparin drip for 48 hours and later eliqus was resumed after thoracocentesis. - Continue eliqus Disposition Baseline ambulates with walker. however reluctant to work with PT, family meeting on Friday DVT prophylaxis with apixiban Heart healthy diet DNR/DNI Problem List: 1. CHF exacerbation 2. Pneumonia 3. Pleural effusion Pain Ratin Pain Location: none Pain Goal: Remain pain free Pain Plan: tylenol for mild pain dilaudid for severe pain Tomorrow's Labs & Rationales: cbc/bep James Cortes MD 04/16/17 1710: Attending MD Review Statement Attending Statement Attending MD Statement: examined this patient, discuss w/resident/PA/SENIOR MEDIA DIRECTOR, agreed w/resident/PA/SENIOR MEDIA DIRECTOR, reviewed EMR data (avail), discussed with nursing, discussed with case mgmt, amended to note Attending Assessment/Plan: The patient was seen and discussed with house staff and Dr. Luevano. She wishes home Hospice care and family is in agreement. Noted decrease in H/H this morning and offered transfusion for patient, however she declined. 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 Case management checking to make sure that [address] and that patient has hospital bed at home. Discussed with hospice nurse (Rosalinda). hour care is in place and that patient has hospital bed at home. Discussed with hospice nurse (Rosalinda).
[2017-04-16 09:00] LABS: ABSOLUTE BASOPHIL COUNT 0 /CUMM (0.0-0.2); ABSOLUTE EOSINOPHIL COUNT 0 /CUMM (0.0-0.7); ABSOLUTE GRANULOCYTE CT 6.5 /CUMM (1.4-6.5); ABSOLUTE LYMPH COUNT 1.8 /CUMM (1.2-3.4); ABSOLUTE MONOCYTE COUNT 0.5 /CUMM (0.10-0.60); BASOPHIL % 0.4 % (0.0-2.0); EOSINOPHIL % 0 % (0-5); HEMATOCRIT 20.8 % (37-47); MEAN CORPUSCULAR HGB 27.8 PG (27.0-31.0); MEAN CORPUSCULAR HGB CONC 32.1 G/DL (33.0-37.0); MEAN CORPUSCULAR VOLUME 86.7 FL (81.0-99.0); MEAN PLATELET VOLUME 8.7 FL (7.4-10.4); PLATELET COUNT 223 /CUMM (130-400); WHITE BLOOD CELL COUNT 8.9 /CUMM (4.8-10.8)
--- NOTE | 2017-04-16 13:57 | PN- Pulmonary ---
Subjective HPI/Critical Care Issues: Patient seen and examined this morning. She is awaiting decision on home hospice. Objective Current Medications: Current Medications Sig/Rick Start time Last Medication Dose Route Stop Time Status Admin Acetaminophen 650 MG Q4P PRN 04/03 1200 AC 04/13 PO 2058 Albuterol Sulfate 3 ML BID 04/07 2200 AC 04/16 INH 0922 Apixaban 2.5 MG BID 04/06 2200 AC 04/16 PO 1003 Aspirin 81 MG DAILY 04/03 1000 AC 04/16 PO 1003 Carvedilol 25 MG BID 04/03 1000 AC 04/15 PO 2020 Ciprofloxacin 500 MG Q24 04/12 2030 AC 04/16 PO 04/17 2029 1003 Ciprofloxacin 500 MG Q24H 04/08 1330 DC 04/11 PO 04/12 1329 1324 Ferrous Gluconate 325 MG DAILY 04/03 1000 AC 04/16 PO 1003 Guaifenesin 10 ML Q6P PRN 04/07 0530 AC 04/10 PO 0338 Guaifenesin 600 MG Q12 04/06 1000 AC 04/16 PO 1003 Hydromorphone HCl 1 MG Q6 PRN 04/16 1234 AC PO Hydromorphone HCl 1 MG Q8 PRN 04/10 0905 DC 04/16 PO 1217 Hydroxychloroquine 200 MG BID 04/02 2201 AC 04/16 Sulfate PO 1004 Levothyroxine Sodium 0.025 MG DAILY AC 04/03 0700 AC 04/16 PO 0507 Lidocaine 1 PAT ONCE PRN 04/08 0445 AC 04/08 EXT 0558 Lisinopril 10 MG DAILY 04/03 1000 AC 04/15 PO 0950 Omeprazole 40 MG DAILY AC 04/03 07 AC 04/16 PO 0507 Ondansetron HCl 4 MG ONCE ONE 04/15 1545 DC 04/15 PO 04/15 1546 1551 Patient Medication 1 ED ONE ONE 04/16 1100 DC Teaching ED 04/16 1101 Polyethylene Glycol 17 GM DAILY 04/09 1411 AC 04/15 PO 0956 Prednisone 10 MG DAILY 04/03 1000 AC 04/16 PO 1004 Senna/Docusate Sodium 2 TAB DAILY NEEDED PRN 04/09 0815 AC 04/11 PO 2317 Sertraline HCl 25 MG DAILY 04/06 1642 AC 04/16 PO 1003 Vital Signs & I&O Last 24 Hrs of Vitals and I&O: Vital Signs Date Time Temp Pulse Resp B/P B/P Pulse O2 O2 Flow FiO2 Mean Ox Delivery Rate 04/16 0800 Room Air 04/16 0609 97.6 53 20 98/58 97 Room Air 04/16 0000 95 Room Air 04/15 2158 98.2 55 18 116/68 94 Room Air 04/15 2020 63 110/80 04/15 1600 Room Air 04/15 1420 98.1 63 18 110/80 95 Intake & Output 04/16 1600 04/16 0800 04/16 0000 Intake Total 202 360 480 Output Total 50 Balance 202 310 480 Intake, Oral 202 360 480 Output, Stool 50 Patient 122 lb Weight Weight Bed scale Measurement Method Exam Other Physical Findings: gen awake and alert heent ncat cvs s1, s2 lungs diminished at bases abd soft, some chronic tenderness ext without edema Results Last 24 Hrs of Lab Results: Laboratory Tests 04/16/17 0822: Anion Gap 9, Estimated GFR 27 L, BUN/Creatinine Ratio 21.1, CBC w Diff NO MAN DIFF REQ, RBC 2.40 L, MCV 86.7, MCH 27.8, RDW 18.0 H, MPV 8.7, Gran % 73.0, Lymphocytes % 20.9, Monocytes % 5.7, Eosinophils % 0, Basophils % 0.4, Absolute Granulocytes 6.5, Absolute Lymphocytes 1.8, Absolute Monocytes 0.5, Absolute Eosinophils 0, Absolute Basophils 0, PUBS MCHC 32.1 L Impression/Plan Impression/Plan Impression/Plan: Impression 76 year old woman -pleural effusions likely chf/fluid overload -?aspiration - pseudomonas in sputum -hx of Left UE cephalic vein DVT in 2014, then per records from [facility] report of DVT (second event) - on Eliquis -anemia - per primary team Plan -on ciprofloxacin, will continue per ID recommendations - 10 day course -transudative pleural fluid -abdominal discomfort is chronic on chronic pain meds DVT prophylaxis at all times DC planning - consideration for home hospice
[2017-04-16 14:38] VITALS: BP 115/82
[2017-04-16 22:18] VITALS: BP 110/60
[2017-04-17 06:50] VITALS: BP 110/62
--- NOTE | 2017-04-17 07:35 | PN- Housestaff ---
[facility] 04[facility] 0735: Subjective Follow-up For: CHF Pneumonia on Cipro Pleaural effusion s/p thora Acute on chronic anemia Subjective: No overnight events. Patient remained afebrile overnight. Seen and examined this morning. Patient was supposed to go yesterday but she couldn't because of logistic issues. She denied any chest pain, short of breath, nausea, vomiting, chills, fever and dysuria. Yesterday patient refused blood transfusion and this morning she refused nebulization treatments. Patient is going home with hospice care. Review of Systems Constitutional: Reports: see HPI. Objective Last 24 Hrs of Vital Signs/I&O Vital Signs Date Time Temp Pulse Resp B/P B/P Pulse O2 O2 Flow FiO2 Mean Ox Delivery Rate 04/17 0922 98.2 56 20 110/62 04/17 0921 98.2 56 20 110/62 04/17 0830 94 Room Air 04/17 0650 98.2 57 20 110/62 94 Room Air 04/17 0000 Room Air 04/16 2218 98.9 62 20 110/60 93 04/16 2132 62 110/60 04/16 1845 94 Room Air 04/16 1438 98.3 58 18 115/82 90 Intake & Output 04/17 1600 04/17 0800 04/17 0000 Intake Total 240 480 Output Total 50 25 Balance 190 455 Intake, Oral 240 480 Output, Stool 50 25 Patient 123 lb Weight Weight Bed scale Measurement Method Physical Exam General Appearance: Alert, Oriented X3, Cooperative Skin Temp/Moisture Exam: Warm/Dry Sepsis Skin Exam (color): Normal for Ethnicity HEENT: Atraumatic, PERRLA, EOMI Neck: Supple Cardiovascular: Normal S1, Normal S2 Lungs: Clear to Auscultation Abdomen: Soft, No Tenderness Neurological: Normal Speech, Normal Tone Extremities: No Edema Assessment/Plan Assessment: Patient is a 76-year-old female with h/o RA on plaquenil and prednisone, HTN, HLD, anxiety, possible diastolic CHF, TACO not on CPAP, CKD stage 3, chronic anemia, colonic perforation following a colonoscopy requiring Constance's procedure with hospital course c/b oliguric ATN and demand ischemia (Oct 2014), presenting this admission with dyspnea on exertion, extensive edema, bilateral pleural effusions and elevated troponins with EKG changes in the inferior and lateral leads (T-wave inversion) and anemia. Patient was admitted to tele floor for management of following conditions: Acute on chronic diastolic CHF Decompensated diastolic heart failure. Patient reports a h/o CHF and was on lasix in the past but most recently this was discontinued after her recent hospitalization at [place] (Dec 2016). CXR shows bibasilar effusions and possible pneumonia, right increased since thora and mild vascular congestion. Echo on 04/02/17 revealed EF of 60% and LV hypertrophy. Thoracentesis was performed on 04/04/17 removed 1L which revealed transudate with negative Cytology; most likely related to CHF. last CXR after thoracethesis showed better aeration Improving well - Continue carvedilol 25 mg twice a day - Appreciate cardiology recommendations - hard to get I and O since patient is incontinet - Patient is going for home hospice care. Dyspnea, cough Patient had dyspnea, cough with sputum and culture revealed Pseudomonas. Dyspnea most likely was multifactorial. ow grade fever wbc increase. Flu swab negative. Symptoms improved well. - mucomyst and incentive spriometry - c/w 10 mg prednisone daily ( for RA) - Continue Ciprofluxacin PO (consider total dose for 10 days) NSTEMI Atypical chest pain with elevated troponin and EKG changes showing evolving T- wave inversions. She was complaining of chest pain again this morning. Repeat troponin was 0.55, stable from last time. was on IV heparin for 48h. - Trop trended down to 0.51 - Cardiology consult appreciated - c/w Atorvastatin, aspirin Anemia acute on chronic Black stool in colostomy bag, [facility], likely due to iron supplements. -Her H&H dropped to 6.7/20.8 yesterday. - Continue iron supplement -Patient refused blood transfusion. Generalized pain Patient notes that she has generalized pain that she attributes to osteoarthritis Patient is on eliquis. She is a history of DVT. Venous doppler lower ext negative Gave 650 mg Tylenol every 4 hours when necessary - continue Dilaudid 1mg PO PRN Q 8 Asymptomatic UTI She denied any urinary symptoms, frequency, urgency, dysuria. Urine analysis was normal. However urine cultures showed Escherichia coli. She remained afebrile with a normal WBC count. She was monitored off from antibiotics. Patient was incontinant in the baseline. Patient recieved ceftriaxone initially for pneumonia which covered E coli as well. - continue to monitor History of DVT on eliqus she Was admitted to [facility] in July 2016 and she was found to have DVT and she was discharged on eliqus. Eliqus was on hold for 48 hours for anticipated thoracocentesis. She was on IV heparin drip for 48 hours and later eliqus was resumed after thoracocentesis. - Continue eliqus Disposition Baseline ambulates with walker. however reluctant to work with PT, family meeting on Friday DVT prophylaxis with apixiban Heart healthy diet DNR/DNI Problem List: 1. Pleural effusion 2. CHF exacerbation 3. Pneumonia Pain Ratin Pain Location: NONE Pain Goal: Remain pain free Pain Plan: TYLENOL FOR MILD PAIN DILAUDID FOR SEVERE PAIN Tomorrow's Labs & Rationales: NONE Ginger Griffiths MD 04/17/17 1242: Attending MD Review Statement Attending Statement Attending MD Statement: examined this patient, discuss w/resident/PA/OUTSIDE PLANT FIELD ENGINEER, agreed w/resident/PA/OUTSIDE PLANT FIELD ENGINEER, reviewed EMR data (avail) Attending Assessment/Plan: Agree with resident note. Patient will be discharged to home hospice today, to be followed by her PCP Dr. Wren. Will continue Dilaudid for pain control, remaining home medications. See CMR for full details.
[2017-04-17 15:15] VITALS: BP 110/74
[2017-04-17] MEDS ORDERED: CIPRO500 M1 PO (16:17)
[2017-04-17] MEDS ORDERED: SENNA PLUS TAB1 EACH PO (16:17)
== END 2017-04-17 16:24 | disposition home or self-care (01) | DRG 177 ==
LOC: ERH 16:38 → 2NA 19:21 → 1NO 19:21 → ERHI 19:21 → ENRESERV 20:26 → ENTRNSPT 21:14 → 1NO 21:45 → CMPTRNSPT 21:54 → 1NO 04-03 09:50 → ENTRNSPT 04-15 10:49 → EDTRNSPTSTS 04-15 10:57 → EDTRNSPT 04-15 10:57 → CMPTRNSPT 04-15 11:13 → 2NA 04-15 11:18 → ENTRNSPT 04-17 15:39 → EDTRNSPTSTS 04-17 15:59 → EDTRNSPT 04-17 16:12 → 2NA 04-17 16:24 → CMPTRNSPT 04-17 16:36
PROVIDERS: Internal Medicine; Internal Medicine Adolescent Medicine; Physician Assistant Medical; Radiology Vascular & Interventional Radiology; Student in an Organized Health Care Education/Training Program
PROC: 0W993ZZ Drainage of Right Pleural Cavity, Percutaneous Approach (ICD-10-PCS; principal; 2017-04-04)
DX: J15.1 Pneumonia due to Pseudomonas (principal); I21.A1 Myocardial infarction type 2; I50.33 Acute on chronic diastolic (congestive) heart failure; J90 Pleural effusion, not elsewhere classified; I13.0 Hypertensive heart and chronic kidney disease with heart failure and stage 1 through stage 4 chronic kidney disease, or unspecified chronic kidney disease; N39.0 Urinary tract infection, site not specified; D64.9 Anemia, unspecified; M06.9 Rheumatoid arthritis, unspecified; N18.3 Chronic kidney disease, stage 3 (moderate); E66.9 Obesity, unspecified; Z68.33 Body mass index [BMI] 33.0-33.9, adult; E55.9 Vitamin D deficiency, unspecified; B96.89 Other specified bacterial agents as the cause of diseases classified elsewhere; E78.5 Hyperlipidemia, unspecified; F41.9 Anxiety disorder, unspecified; G47.33 Obstructive sleep apnea (adult) (pediatric); Z86.718 Personal history of other venous thrombosis and embolism; Z79.01 Long term (current) use of anticoagulants; Z93.3 Colostomy status; Z66 Do not resuscitate; Z87.891 Personal history of nicotine dependence; Z53.29 Procedure and treatment not carried out because of patient's decision for other reasons
CPT/HCPCS: 1NP; 2NAP; 87075; 36415; 71045; 71046; 74018; 81001; 82436; 87070; 87071; 87086; 87804; 87804-59; 88305; 93005; 93010; 93306; 93970; 97110-GO; 97112-GO; 97116-GO; 97161-GP; 97530-GO; 99291; J0696; J1644; J1940; J2405; J3101; J3490; J7512; J7608

== ENCOUNTER 2017-05-22 16:32 | Inpatient (IN) | payer OTHER, MEDICARE ==
[~2017-05-22] VITALS: Ht 149.9 cm; Wt 62.8 kg
[~2017-05-22 16:32] MED LIST changes: +CARVEDILOL25 M1 PO; +CIPRO500 M1 PO; +ELIQUIS2.5 M1 PO; +FERROUS SULFAT325 M3 PO; +HYDROMORPHONE HC2 M1 PO; +HYDROXYCHLOROQ200 M2 PO; +LEVOTHYROXINE25 MCG PO; +LISINOPRIL10 M1 PO; +OMEPRAZOLE40 M1 PO; +OS-CAL 500+D31 EAC1 PO; +PREDNISONE10 M2 PO; +SENNA PLUS TAB1 EACH PO; +SERTRALINE HCL25 MG PO; +VITAMIN D250000 UNIT PO
[2017-05-22 17:52] LABS: ABSOLUTE BASOPHIL COUNT 0 /CUMM (0.0-0.2); ABSOLUTE EOSINOPHIL COUNT 0 /CUMM (0.0-0.7); ABSOLUTE GRANULOCYTE CT 6.2 /CUMM (1.4-6.5); ABSOLUTE LYMPH COUNT 0.9 /CUMM (1.2-3.4); ABSOLUTE MONOCYTE COUNT 0.3 /CUMM (0.10-0.60); BASOPHIL % 0.3 % (0.0-2.0); EOSINOPHIL % 0.3 % (0-5); GRANULOCYTE % 83.8 % (42.2-75.2); MEAN CORPUSCULAR HGB 28.8 PG (27.0-31.0); MEAN CORPUSCULAR HGB CONC 30.8 G/DL (33.0-37.0); MEAN CORPUSCULAR VOLUME 93.4 FL (81.0-99.0); MEAN PLATELET VOLUME 7.7 FL (7.4-10.4); PLATELET COUNT 306 /CUMM (130-400); RBC DISTRIBUTION WIDTH 18.4 % (11.5-14.5); RED BLOOD CELL CT 1.54 /CUMM (4.20-5.40); WHITE BLOOD CELL COUNT 7.4 /CUMM (4.8-10.8)
[2017-05-22 17:57] LABS: HEMATOCRIT 14.4 % (37-47)
[2017-05-22 18:05] LABS: PT 18.4 SEC (9.4-12.5); PTT 33 SEC (25-37)
--- NOTE | 2017-05-22 18:13 | ED GENERAL ADULT ---
History of Present Illness General Chief Complaint: General Adult Stated Complaint: SIB DOLE FOR HEMOGLOBIN Source: patient Exam Limitations: no limitations Vital Signs & Intake/Output Vital Signs & Intake/Output Vital Signs Date Time Temp Pulse Resp B/P B/P Pulse O2 O2 Flow FiO2 Mean Ox Delivery Rate 05/22 1923 96.8 79 18 155/64 95 Room Air 05/22 1859 96.5 81 16 162/67 98 Room Air 05/22 1719 96.6 85 20 139/67 92 Room Air Room Air Allergies Coded Allergies: Penicillins (SWELLING, RASH, ITCH 05/22/17) aspirin (RASH 05/22/17) cephalexin (From KEFLEX) (ITCHY 05/22/17) codeine (ITCH 05/22/17) levofloxacin (From LEVAQUIN) (RASH 05/22/17) oxaprozin (From DAYPRO) (RASH 05/22/17) propoxyphene (UNKNOWN REACTION TO DARVOCET 05/22/17) Reconcile Medications Calcium Carbonate/Vitamin D3 (Os-Mehdi 500+D3 Caplet) 500 MG-200 TABLET 1 TAB PO DAILY SUPPLEMENT (Reported) Carvedilol 25 MG TABLET 1 TAB PO BID HEART/BP (Reported) Ergocalciferol (Vitamin D2) (Vitamin D2) 50,000 UNIT CAPSULE 1 CAP PO QWED SUPPLEMENT (Reported) Ferrous Gluconate (Unknown Strength) TABLET (Unknown Dose) PO DAILY SUPPLEMENT (Reported) Furosemide (Lasix) 20 MG TABLET 1 TAB PO DAILY DIURETIC (Reported) Hydromorphone HCl (Dilaudid) 4 MG TABLET 0.5-1 TAB PO QHS PRN PAIN (Reported) Hydroxychloroquine Sulfate 200 MG TABLET 1 TAB PO BID RA (Reported) Levothyroxine Sodium 25 MCG TABLET 1 TAB PO DAILY AC THYROID (Reported) Lisinopril 10 MG TABLET 1 TAB PO QAM BP (Reported) Omeprazole 20 MG TABLET.DR 1 TAB PO DAILY GI (Reported) Potassium Chloride (Klor-Con 10) (Unknown Strength) TABLET.ER (Unknown Dose) PO DAILY SUPPLEMENT (Reported) Prednisone 10 MG TABLET 1 TAB PO QAM STEROID (Reported) Rivaroxaban (Xarelto) 20 MG TABLET 1 TAB PO 0900 BLOOD THINNER (Reported) with food Sennosides/Docusate Sodium (Senna Plus Tablet) 8.6 MG-50 MG TABLET 1 TAB PO DAILY NEEDED PRN CONSTIPATION . Sertraline HCl 25 MG TABLET 1 TAB PO [facility] (Reported) Triage Note: PT SENT TO ED BY DR. NELSON FOR LOW HEMOGLOBIN. PT'S HGB WAS A 4 WHEN SHE GOT HER BLOOD DRAWN TODAY. PT REPORTS EXERTIONAL DYSPNEA. PT VERY PALE IN TRIAGE. O2 SAT 92% ON RA. Triage Nurses Notes Reviewed? yes Onset: Gradual Duration: worse persistent since (several weeks) Timing: recent history Injury Environment: home Severity: moderate Severity Numbers: 7 No Modifying Factors: none Modifying Factors: Improves With: immobilization. Worsens With: movement. Associated Symptoms: sob HPI: Patient is a 76-year-old female with history of hypothyroidism, remote history of pulmonary embolus on blood thinners, CHF and hypertension coming into the emergency department with chief complaint of generalized malaise and weakness. She was seen by her mortgage loan counselor and had blood work drawn and was told that her blood counts are really loudly she needs to come to the emergency department for a blood transfusion. Patient denies any vomiting. Positive nausea. Patient denies any blood in the urine. She has an ostomy bag to right that her stools are always dark because the iron she takes. Denies any vaginal bleeding. She's been taking all medications as prescribed. Patient reports that she has chronic diffuse pain for which she takes Dilaudid for. Patient reports shortness of breath with exertion. No chest pain or palpitations. Positive weakness diffusely. (Adriana MATTA,Genesis) Past History Travel History Traveled to [place] past 21 day No Medical History Any Pertinent Medical History? see below for history Neurological: migraine EENT: cataracts Cardiovascular: CHF, hypertension, hyperlipidemia Respiratory: pneumonia, DYSPNEA Gastrointestinal: diverticulitis, HEMORRHOIDS BOWEL RESECTION COLOSTOMY Hepatic: NONE Renal: 3+PROTEIN IN URINE [id number] Musculoskeletal: rheumatoid arthritis Psychiatric: anxiety, depression, insomnia Endocrine: vitamin D deficiency Blood Disorders: anemia Cancer(s): NONE ENCAPSULATOR/Reproductive: NONE History of MRSA: No History of VRE: No History of CDIFF: No Pneumonia Vaccine: 12/23/11 Influenza Vaccine: 12/22/16 Surgical History Surgical History: colon resection, hysterectomy, laminectomy Psychosocial History Who do you live with Patient/Self Services at Home Servant What is your primary language Iraqi Tobacco Use: Quit >30 days ago ETOH Use: denies use Illicit Drug Use: denies illicit drug use Family History Family History, If Any: Relation not specified for: *No pertinent family history Hx Contributory? No (Genesis Tenorio) Review of Systems Review of Systems Constitutional: Reports: no symptoms. Comments Review of systems: See HPI, All other systems negative. Constitutional, no chills fever or weight loss HEENT: No visual changes no sore throat no congestion Cardiovascular: No chest pain ,palpitation , orthopnea or ankle swelling Skin, no jaundice no rashes Respiratory: No cough sputum or hemoptysis GI: no vomiting : No dysuria No hematuria Muscle skeletal: no back pain, no neck pain, Neurologic: No numbness no confusion Psych: No stress anxiety or depression,. Heme/endocrine: No bruising no bleeding no polyuria or polydipsia Immunology: No splenectomy or history of AIDS (Genesis Tenorio) Physical Exam Physical Exam General Appearance: well developed/nourished, no apparent distress, alert, awake , comfortable Comments: Well-developed well-nourished person in no acute distress HEENT: extraocular motion intact, no nystagmus. Pupils equally round and reactive to light and accommodation. Nose is atraumatic. External auditory canal and Tympanic membranes clear. Pharynx normal. No swelling or edema. Positive pallor to ocular conjunctiva bilaterally. Dry oral mucosa. Neck: Supple, no lymphadenopathy Back: Nontender Cardiovascular: Regular rate and rhythms no murmurs rubs or gallops, normal JVP Respiratory: Chest nontender. No respiratory distress.breath sounds clear to auscultation bilaterally Abdomen: Soft, diffusely tender to palpation, no rebound or guarding. Nondistended, no appreciable organomegaly. Normal bowel sounds. No ascites. Ostomy in place, no surrounding erythema or edema. ostomy bag: Dark stool, guaiac positive. Extremity: 2+ pitting edema in the lower extremities bilaterally. No Pain to palpation bilaterally. Pedal pulses are 2+ bilaterally. Muscular strength is 5 out of 5 in all extremities well-seated on the stretcher. Granulator Operator strength is equal and symmetric bilaterally. Neuro: Alert oriented x3, motor sensory normal, cranial nerves II through XII grossly intact. Cerebellar testing is unremarkable. Skin: No appreciable rash on exposed skin, skin is warm and dry. Patient appears pale Psych: Mood and affect is normal, memory and judgment is normal. Core Measures ACS in differential dx? Yes CVA/TIA Diagnosis: No Sepsis Present: No Sepsis Focused Exam Completed? No (Adriana MATTA,Genesis) Progress Differential Diagnoses I considered the following diagnoses in my evaluation of the patient: Symptomatic anemia, acute on chronic anemia, dehydration, electrolyte abnormality, viral syndrome, pneumonia, bronchitis, ACS. gi bleed, Plan of Care: Orders Procedure Date/time Status Regular Diet 05/23 B Active LACTIC ACID 05/22 2030 Active Patient Data 05/22 193 Active OXYGEN SETUP (GEN) 05/22 1908 Active Saline Lock 05/22 190 Active Admit to inpatient 05/22 190 Active Vital Signs 05/22 190 Active MISTAKE 05/22 190 Active Activity/Ambulation 05/22 190 Active Code Status 05/22 190 Active Telemetry/Assembler Body 05/[address] ABD & PELVIS W/O IV CONTRAS 05/22 190 Active BLOOD PRODUCT PICKUP 05/22 184 Active LEUKOCYTE POOR (PACKED CELLS) 05/22 184 Active Add-on Test (ER Only) 05/22 1820 Active Intake & Output 05/22 1745 Active LACTIC ACID 05/22 1730 Complete TOTAL IRON BINDING CAPACITY 05/22 1728 Complete MAGNESIUM 05/22 1728 Complete FERRITIN 05/22 1728 Complete SERUM IRON 05/22 1728 Complete B-TYPE NATRIURETIC PEP (BNP) 05/22 1728 Complete PARTIAL THROMBOPLASTIN TIME 05/22 1726 Complete PROTHROMBIN TIME 05/22 1726 Complete TROPONIN LEVEL 05/22 172 Complete COMPREHENSIVE METABOLIC PANEL 05/22 1723 Complete CBC WITHOUT DIFFERENTIAL 05/22 1723 Complete EKG 05/22 1723 Active TYPE & SCREEN (NOT X-MATCH) 05/22 1723 Active Laboratory Tests 05/22/17 1731: Fhz-L-Kyllfynlwup Pept Cancelled 05/22/17 1728: Lactic Acid 1.1 05/22/17 1728: Anion Gap 6, Estimated GFR 36 L, BUN/Creatinine Ratio 27.9 H, Glucose 93, Calcium 9.5, Magnesium 1.8, Iron 13 L, TIBC 280, Ferritin 33.5, Total Bilirubin < 0.1 L, AST 18, ALT 24, Alkaline Phosphatase 51, Troponin I 0.66 *H, Pro-B- Natriuretic Pept 9410 H, Total Protein 4.4 L, Albumin 2.3 L, Globulin 2.1, Albumin/Globulin Ratio 1.1, PT 18.4 H, INR 1.76 H, APTT 33, CBC w Diff NO MAN DIFF REQ, RBC 1.54 L, MCV 93.4, MCH 28.8, MCHC 30.8 L, RDW 18.4 H, MPV 7.7, Gran % 83.8 H, Lymphocytes % 12.0 L, Monocytes % 3.6, Eosinophils % 0.3, Basophils % 0.3, Absolute Granulocytes 6.2, Absolute Lymphocytes 0.9 L, Absolute Monocytes 0.3, Absolute Eosinophils 0, Absolute Basophils 0 05/22/17 1726: Magnesium Cancelled 05/22/2017 7:24:29 PM Vitals are stable on arrival. H&H is low. Patient is symptomatic. Patient will be treated with transfusion. Patient will be admitted to telemetry for elevated troponin. Patient will need serial EKGs and cardiology consult, discharge at this time is harmful. Diagnostic Imaging: Viewed by Me: Radiology Read. Discussed w/RAD: Radiology Read. Radiology Impression: PATIENT: RYAN CHRISTENSEN PRESENT AGE: 76 PATIENT ACCOUNT NO: [id number] : 39 LOCATION: [facility] ORDERING PHYSICIAN: Richie MATTA SERVICE DATE: 05/22/17 EXAM TYPE: RAD - XRY -CHEST XRAY, TWO VIEWS EXAMINATION: CHEST 2 VIEWS CLINICAL INFORMATION: Shortness of breath. COMPARISON: 04/10/2017. TECHNIQUE: AP frontal and lateral views of the chest were obtained. FINDINGS: The cardiac silhouette is enlarged, though stable. There are klrgi-hr-oblrgisd bilateral pleural effusions. There is associated airspace disease. There is stable interstitial prominence present throughout both lungs. The osseous structures are stable. IMPRESSION: Small-to- moderate bilateral pleural effusion with associated bibasilar airspace disease. Stable interstitial prominence present throughout both lungs. DICTATED BY: James Buchanan MD DATE/TIME DICTATED:05/22/171832 SUPERVISOR [employer]SE:TED DATE/ TIME TRANSCRIBED:05/22/171832 CONFIDENTIAL, DO NOT COPY WITHOUT APPROPRIATE AUTHORIZATION. <Electronically signed in Other Vendor System> SIGNED BY: James Buchanan MD 05/22/171838 Initial ED EKG: nsr 75 bpm, lvh Prior EKG: unchanged (Genesis Tenorio) Departure Departure Time of Disposition: 1923 Disposition: STILL A PATIENT Condition: Stable Clinical Impression Primary Impression: Symptomatic anemia Secondary Impressions: Elevated troponin Referrals: Corrina Fortune MD (PCP/Family) Departure Forms: Customer Survey General Discharge Information Admission Note Spoke With: Aziza Shepard MD Documentation of Exam: Documentation of any treatments & extenuating circumstances including Concerns Regarding Discharge (functional status, medication knowledge or non-compliance, living conditions, etc.) that warrant an admission rather than observation: Patient requiring blood transfusion, slow transfusion secondary to history of CHF, serial EKGs and troponins. Discharge at this time we are wound secondary likely to worsening symptoms. Patient will need cardiology consult, telemetry monitoring. Patient will require a multiple day stay. GI consultation. (Genesis Tenorio) PA/MARTIAL ARTS INSTRUCTOR Co-Sign Statement Statement: ED Attending supervision documentation- X I saw and evaluated the patient. I have also reviewed all the pertinent lab results and diagnostic results. I agree with the findings and the plan of care as documented in the PA's/MARTIAL ARTS INSTRUCTOR's documentation. Hx RA, PE, CHF, Hartmanns procedure with acute on chronic symptomatic anemia, + troponin [] I have reviewed the ED Record and agree with the PA's/MARTIAL ARTS INSTRUCTOR's documentation. [] Additions or exceptions (if any) to the PAs/MARTIAL ARTS INSTRUCTOR's note and plan are summarized below: [] (Pedro CURTIS,Reggie) Critical Care Note Critical Care Note Critical Care Time: 30-74 min (Genesis Tenorio)
--- NOTE | 2017-05-22 18:39 | RADIOLOGY REPORT ---
EXAMINATION: CHEST 2 VIEWS CLINICAL INFORMATION: Shortness of breath. COMPARISON: 04/10/2017. TECHNIQUE: AP frontal and lateral views of the chest were obtained. FINDINGS: The cardiac silhouette is enlarged, though stable. There are [id number]-ejrokmtb bilateral pleural effusions. There is associated airspace disease. There is stable interstitial prominence present throughout both lungs. The osseous structures are stable. IMPRESSION: Izrio-uc-grglgsvn bilateral pleural effusion with associated bibasilar airspace disease. Stable interstitial prominence present throughout both lungs.
[2017-05-22] MEDS ORDERED: XARELTO20 M2 PO (19:03)
[2017-05-22] MEDS ORDERED: FERROUS GLUCON324 M2 PO (19:05)
[2017-05-22] MEDS ORDERED: DILAUDID4 M1 PO (19:06)
[2017-05-22] MEDS ORDERED: OMEPRAZOLE20 M3 PO (19:07)
[2017-05-22] MEDS ORDERED: LASIX20 M1 PO (19:08)
[2017-05-22] MEDS ORDERED: KLOR-CON 1010 ME1 PO (19:09)
--- NOTE | 2017-05-22 20:12 | History & Physical ---
Mamadou CURTIS,[facility] 05/22/17 2012: General Information and HPI MD Statement: I have seen and personally examined RYAN CORONA and documented this H&P. The patient is a 76 year old F who presented with a patient stated chief complaint of [low hemoglobin]. Source of Information: patient, family History of Present Illness: 76-year-old female with past medical history of CHF, hypertension, anemia, hyperlipidemia, diverticulitis, bowel perforation status post colostomy, rheumatoid arthritis, anxiety, depression, insomnia, and vitamin D deficiency presenting for low hemoglobin. The patient states that she has drawn today in the morning and was then called to come to the emergency department as her hemoglobin dropped from 8 to 4. The patient states that since her last admission in March she has had decreased appetite. The patient states that she has not had any changes in her stool and states that her stool is soft and firm and dark due to iron. She continues to have easy bruising on her extremities from her anticoagulation. She is currently on Cymbalta for prior DVT which is managed by Dr. Zavala. She states that she has been having periodic lightheadedness and palpitations. States that she feels like she has normal strength and no ambition to be active. States that she always feels cold and recently has had excessive sleep because of by mouth Dilaudid to control her pain from her rheumatoid arthritis. She states dyspnea on exertion. She also complains of worsening lower extremity edema. States that she has been having some abdominal discomfort. The patient states that she has constant joint pain from her rheumatoid arthritis. She also states that she has a history of migraines however she has not had a migraine since her last discharge. She also states that she has been having dysuria. She denies any fevers, night sweats, or chest pain. The patient currently lives at home with [facility]. She was found to have positive stool guaiac with the stool in her colostomy bag. She last saw her GI specialist around 1 year ago (Dr. Barber?) Allergies/Medications Allergies: Coded Allergies: Penicillins (SWELLING, RASH, ITCH 05/22/17) aspirin (RASH 05/22/17) cephalexin (From KEFLEX) (ITCHY 05/22/17) codeine (ITCH 05/22/17) levofloxacin (From LEVAQUIN) (RASH 05/22/17) oxaprozin (From DAYPRO) (RASH 05/22/17) propoxyphene (UNKNOWN REACTION TO DARVOCET 05/22/17) Home Med list Calcium Carbonate/Vitamin D3 (Os-Mehdi 500+D3 Caplet) 500 MG-200 TABLET 1 TAB PO DAILY SUPPLEMENT (Reported) Carvedilol 25 MG TABLET 1 TAB PO BID HEART/BP (Reported) Ergocalciferol (Vitamin D2) (Vitamin D2) 50,000 UNIT CAPSULE 1 CAP PO QWED SUPPLEMENT (Reported) Ferrous Gluconate (Unknown Strength) TABLET (Unknown Dose) PO DAILY SUPPLEMENT (Reported) Furosemide (Lasix) 20 MG TABLET 1 TAB PO DAILY DIURETIC (Reported) Hydromorphone HCl (Dilaudid) 4 MG TABLET 0.5-1 TAB PO Q8P PRN PAIN (Reported) Hydroxychloroquine Sulfate 200 MG TABLET 1 TAB PO BID RA (Reported) Levothyroxine Sodium 25 MCG TABLET 1 TAB PO DAILY AC THYROID (Reported) Lisinopril 10 MG TABLET 1 TAB PO QAM BP (Reported) Omeprazole 20 MG TABLET.DR 1 TAB PO DAILY GI (Reported) Potassium Chloride (Klor-Con 10) (Unknown Strength) TABLET.ER (Unknown Dose) PO DAILY SUPPLEMENT (Reported) Prednisone 10 MG TABLET 1 TAB PO QAM STEROID (Reported) Rivaroxaban (Xarelto) 20 MG TABLET 1 TAB PO 0900 BLOOD THINNER (Reported) with food Sennosides/Docusate Sodium (Senna Plus Tablet) 8.6 MG-50 MG TABLET 1 TAB PO DAILY NEEDED PRN CONSTIPATION . Sertraline HCl 25 MG TABLET 1 TAB PO QAM MENTAL HEALTH (Reported) Past History Travel History Traveled to [place] past 21 day No Medical History Neurological: migraine EENT: cataracts Cardiovascular: CHF, hypertension, hyperlipidemia Respiratory: pneumonia, DYSPNEA Gastrointestinal: diverticulitis, HEMORRHOIDS BOWEL RESECTION COLOSTOMY Hepatic: NONE Renal: 3+PROTEIN IN URINE O-[id number]-LXIPXEC Musculoskeletal: rheumatoid arthritis Psychiatric: anxiety, depression, insomnia Endocrine: vitamin D deficiency Blood Disorders: anemia Cancer(s): NONE [employer]CH[employer]IC/Reproductive: NONE History of MRSA: No History of VRE: No History of CDIFF: No Pneumonia Vaccine: 12/23/11 Influenza Vaccine: 12/22/16 Surgical History Surgical History: colon resection, hysterectomy, laminectomy Past Family/Social History Family History Relations & Conditions if any Relation not specified for: *No pertinent family history Psychosocial History Services at Home: [employer] Primary Language: Turkish ETOH Use: denies use Illicit Drug Use: denies illicit drug use Functional Ability Ambulation: cane IADLs Needs Assist: shopping, housework, food prep. Review of Systems Review of Systems Constitutional: Reports: see HPI, malaise, weakness. Cardiovascular: Reports: peripheral edema. Respiratory: Reports: short of breath. GI: Reports: see HPI, abdominal pain. Denies: changes in stool. Genitourinary: Reports: dysuria. Musculoskeletal: Reports: see HPI, joint pain. Exam & Diagnostic Data Last 24 Hrs of Vital Signs/I&O Vital Signs Date Time Temp Pulse Resp B/P B/P Pulse O2 O2 Flow FiO2 Mean Ox Delivery Rate 05/22 2210 Room Air 05/22 214 96.8 81 18 179/74 97 Room Air 05/22 1923 96.8 79 18 155/64 95 Room Air 05/22 1859 96.5 81 16 162/67 98 Room Air 05/22 1719 96.6 85 20 139/67 92 Room Air Room Air Physical Exam General Appearance Alert, Oriented X3, Cooperative, No Acute Distress, pt is somewhat sleept but arousable after taking pain medicaiton. Cardiovascular Regular Rate, Normal S1, Normal S2 Lungs mild diffuse wheezing Abdomen Normal Bowel Sounds, Soft, No Tenderness, left colostomy with dark/ blackish stool Extremities diffuse lower extremity bruising and right and bruising Vascular 2+ radial and pedal pulses Last 24 Hrs of Labs/Rubin: Laboratory Tests 05/22/17 1731: Kra-H-Kegohdxqkup Pept Cancelled 05/22/17 1728: Lactic Acid 1.1 05/22/17 1728: Anion Gap 6, Estimated GFR 36 L, BUN/Creatinine Ratio 27.9 H, Glucose 93, Calcium 9.5, Magnesium 1.8, Iron 13 L, TIBC 280, Ferritin 33.5, Total Bilirubin < 0.1 L, AST 18, ALT 24, Alkaline Phosphatase 51, Troponin I 0.66 *H, Pro-B- Natriuretic Pept 9410 H, Total Protein 4.4 L, Albumin 2.3 L, Globulin 2.1, Albumin/Globulin Ratio 1.1, PT 18.4 H, INR 1.76 H, APTT 33, CBC w Diff NO MAN DIFF REQ, RBC 1.54 L, MCV 93.4, MCH 28.8, MCHC 30.8 L, RDW 18.4 H, MPV 7.7, Gran % 83.8 H, Lymphocytes % 12.0 L, Monocytes % 3.6, Eosinophils % 0.3, Basophils % 0.3, Absolute Granulocytes 6.2, Absolute Lymphocytes 0.9 L, Absolute Monocytes 0.3, Absolute Eosinophils 0, Absolute Basophils 0 05/22/17 1726: Magnesium Cancelled Assessment/Plan Assessment: A: 76-year-old female with past medical history of CHF, hypertension, anemia, hyperlipidemia, diverticulitis, bowel perforation status post colostomy, rheumatoid arthritis, anxiety, depression, insomnia, and vitamin D deficiency presenting for low hemoglobin most likely due to bleeding of unclear origin but suspect GI and elevated troponins most likely due to the demand ischemia. P: #H/H due to suspected GI bleed Patient has not noticed any changes in her stools Guaiac positive in the ED Current H/H 4.4/14.4 (baseline 12/18) LA 1.1 Iron 13, TIBC 280, ferritin 33.5 -transfuse 2 units and monitor cbc -lasix s/p transfusion -Continue clears, advance per GI -f/u GI consult -IV protonix BID -cont ferrous sulfate #elevated trops Trops elevated 0.66 Most likely demand ischemia -f/u ekg trops 2AM, 9AM -call cardiology consult in AM\ #CKD Cr 1.4 -currently @ baseline, cont to monitor #Chronic bilateral pleural effusion Echo 2018: EF 60% with restrictive hemodynamics, moderate AR, ProBNP 9410 CXR: Iseoc-is-jqtelstb bilateral pleural effusion with associated bibasilar airspace disease. Stable interstitial prominence present throughout both lungs. CT abd: Left lower quadrant colostomy. No evidence for obstruction. Right greater than left bilateral pleural effusions. Cholelithiasis without CT evidence of cholecystitis. Hiatal hernia. -cont trc, nebs #RA -cont prednisone, hydroxychloroquine #mental health -cont sertraline #htn -cont lisinopril #hypothyroidism -cont levothyroxine #DVT prophylaxis - ALPS #DNR DNI As Ranked By This Provider Problem List: 1. Elevated troponin 2. GI bleed Core Measures/Misc (12/08) Acute Coronary Syndrome ACS Diagnosis: No Congestive Heart Failure Congestive Heart Failure Diagnosis No Cerebrovascular Accident CVA/TIA Diagnosis: No VTE (View Protocol) VTE Risk Factors Acute Medical Illness No Mechanical VTE Prophylaxis d/t N/A MechProphylax Ordered No VTE Pharm Prophylaxis d/t Bleeding (Active) Sepsis (View protocol) Sepsis Present: No Niya Todd 05/22/17 2335: Resident Review Statement Resident Statement: examined this patient, discussed with equine internship, agreed with equine internship, amended to note Other Findings: Ms Corona is a 76 year old woman was known to been [facility] until this a.m. She was brought in after she was found to have low H&H during her routine blood work screening. She has a PMHx of stage II diastolic dysfunction, RA ( on Hydroxychloroquine and Prednisone 10mg daily), Hypothyroidism, hypertension, chronic anemia, COPD stage III, anxiety and depression. She had multiple hospital admissions in the recent few years- [facility] 10/2014-when she had colonic perforation as a complication of colonoscopy requiring Constance procedure (ostomy bag in place), and subsequently developed renal insufficiency; later developing transudate pleural effusion, [facility] 2017 for left lower extremity DVT, pneumonia and pleural effusion. She was recently made home hospice, improved and currently no longer requiring hospice services. She did not have any concerns, prior to being notified that H&H dropped to 4.4. However, did mention that she was orthostatically dizzy, exertional shortness of breath which was unchanged, decreased appetite. Did not report any chest pain, palpitations, visual changes, bleeding per rectum abdominal pain. Reported occasional dysuria, for which she did not seek any medical attention. Also reported multiple falls in the last few months, with no head injury or back injury. Multiple ecchymotic skin lesions reported. At the time of admission, vitals-temperature 96.6, pulse rate 85, respiration 20 , blood pressure 139/67, pulse ox 92% on room air. On examination, she appeared comfortable and was alert oriented 3. She was noted to have pallor, but did not have any cervical or axillary lymphadenopathy. No JVD, pulses appeared regular. No abnormal heart sounds were noted. Lung examination to be decreased entry bilaterally at the bases of lungs posteriorly, increased expiratory wheezes posteriorly. Abdominal examination was benign. Pedal edema 3+ was noted to the mid thigh region. Neurological examination was within normal limits. Pertinent lab findings: WBC 7.4 Hemoglobin 4.4 ( 8.5-04/11--> 6.7-04/16) Platelets 306 Potassium 4.4 BUN 39, creatinine 1.4, BUN/creatinine ratio 27.9. Lactic acid 1.1 Fe 13, TIBC 280, TS% 8 Troponin 0.66, proBNP 9410, albumin 2.3. INR 1.76 (on xeralto) CT abdomen without contrast revealed Left lower quadrant colostomy. No evidence for obstruction. Right greater than left bilateral pleural effusions. Cholelithiasis without CT evidence of cholecystitis. EKG revealed left anterior for split block, normal sinus rhythm, no ST-T wave inversions, QTC 434. Last echocardiogram done in 04/03/2017 to be ejection fraction of 60%, with stage II diastolic dysfunction. She was found to be guaiac positive from the sample from colostomy bag. Etiology in her case is most likely GI bleed, acute blood loss anemia but source is unclear at this time. She has slight elevation in BUN, but unclear if this would contribute to acute upper GI bleed. She is currently on xeralto, which would put her at higher risk of GI bleed. She did not use any nonsteroidal anti -inflammatories in the recent past. Last endoscopy to be Emiliano erosions due to hiatal hernia and AVM which could have contributed to worsening bleeding. It does not appear to be hemolytic anemia at this time. Iron studies appear to be due to iron deficiency and anemia of chronic disease contributing to her worsening anemia. In regards to her elevated troponin, it could be due to type II AR however AR needs to be ruled out with serial electrocardiograms and cardiac enzymes. Plan: 1. Acute blood loss anemia-likely GI bleed from unclear source at this time, until proven objectively. She has critically low H&H for which she needs to be transfused with PRBCs. Recheck CBC after 2 units of PRBCs, to ascertain the need for more transfusion. Her goal is around 8 considering her elevated troponins, since we are unclear if she has any cardiac etiology. She has history of diastolic dysfunction, and she should be given intravenous Lasix intermittently while assessing the volume status. Strict ins and outs, daily weights to be obtained. GI consult to be obtained in a.m. Continue IV Protonix , and large bore IV access to be kept in place. Monitor blood pressure closely. 2. Elevated troponins-likely due to type II AR. Cardiology consult in the a.m. Serial echocardiograms and cardiac enzymes. No antiplatelet medications were given, given her history of critically low H&H. Defer the decision to start a beta miranda to the safety instructor in the AM. Defer the decision to the safety instructor if an echocardiogram is warranted right now. 3. Pleural effusion-likely multifactorial, likely due to congestive heart failure and chronic kidney disease. Check urinalysis for proteinuria and pyuria. Off antibiotics currently, and decide need for antibiotics if she has any dysuria. 4. Rheumatoid arthritis-continue her home dose of prednisone, hydrochlorquine. Continue her home dose of Dilaudid. If she has any low blood pressure, consider a stress dose of steroids. 5. History of DVT-Xeralto is on hold at this moment. Restart after discussing risks versus benefits with the patient, and would defer the decision to the safety instructor. Housekeeping: #1 DVT prophylaxis-Alps only. 2. GI prophylaxis-Protonix 3. Lines-peripheral lines. 4. CODE STATUS-DNR/DNI. 5. Diet-clear liquid diet. 6. Consults-gastroenterology, cardiology, physical therapy, nutritional, case management. Aziza Shepard 05/23/17 0410: Attending MD Review Statement Attending Statement Attending MD Statement: examined this patient, discuss w/resident/PA/HEAD OF ENGLISH, agreed w/resident/PA/HEAD OF ENGLISH, discussed with family, reviewed images, amended to note Attending Assessment/Plan: CC: Low hemoglobin PMH: HTN, HFpEF, bilateral pleural effusion, history of DVT, history of anemia, TACO on CPAP, anxiety, depression, rheumatoid arthritis, history of colonic perfusion s/p colostomy, hypothyroidism Patient was sent by her primary care physician for low hemoglobin. Patient had her blood drawn today for labs, at that time her hemoglobin was found to be 4 and she was suggested to go to ER. According to patient she was getting more tired and lethargic, extremely poor appetite, not ambulating much so the labs were drawn. Patient had noticed progressively worsening of the symptoms along with on and off lightheadedness, palpitations, chest pain, dyspnea on exertion. Since last 4-5 days she has noticed worsening of her leg swellings. Patient is on blood thinner for diagnosis of pulmonary embolism approximately 1-1-1/2-year- old back. She has been noticing dark colored output through colostomy back but did not notice any jane blood, no bloody vomiting. Currently patient denies any chest pain, chest tightness, shortness of breath, palpitations, loss of consciousness. Patient was admitted from April 02, for heart failure, type II AR. She was also treated with Cipro for Pseudomonas in sputum. During that hospitalization she was found to have anemia but refused blood transfusion at that time. Prior to that patient never had any major AR, cardiac stents. Vitals: Afebrile, temperature 96.5, pulse 80s, RR 20, blood pressure 139/67, saturating well on room air. On exam: A O 3, cooperative, no acute distress, neck supple, JVD normal, no lymphadenopathy, mucosa dry , no focal neurological deficit, significant pedal edema, no obvious skin rashes or inflammation CVS: S1-S2, RRR. RS: Clear to auscultate bilaterally. Abdomen: Soft, NT, ND, bowel sounds present. CT abdomen and pelvis without IV contrast Left lower quadrant colostomy. No evidence for obstruction. Right greater than left bilateral pleural effusions. Cholelithiasis without CT evidence of cholecystitis. Hiatal hernia. Assessment and plan 76-year-old female with extensive past medical history was brought in ER for low hemoglobin. Patient had been getting symptoms of shortness of breath, dizziness, palpitations, chest pain on and off since last few days, progressively worsened. Recently she was more lethargic, decreased appetite so labs were obtained which showed anemia and patient was sent to ER. She has noticed worsening leg swelling since last few days, decreased ambulation. Patient denies any acute blood loss through colostomy or vomiting. In her previous hospitalization in March, her hemoglobin was low but at that time she refused blood transfusion. After discharge she was transiently on hospice care, later on revoked hospice. Currently she denies any chest pain, chest tightness, shortness of breath at rest. On examination she is found to have significant pedal edema, no JVD, no crackles but decreased air entry on basis, otherwise examination unremarkable. Hemoglobin is 4.4 which is dropped from 6.7 in March. Even though MCV is 93, iron studies show Iron 13, TIBC 280, ferritin 33.5 which is suggestive of iron deficiency anemia. Given her dark output through colostomy it could be the source of blood loss. She has elevated troponin 0.66, probably secondary to demand ischemia. Currently asymptomatic. Even in her previous hospitalization her troponin was elevated, was considered type II AR demand ischemia. 2 units of blood transfusion has been ordered in ER, patient will require IV Lasix with transfusion given her HFpEF , significant pedal edema but currently does not appear in acute exacerbation. + Symptomatic anemia, acute on chronic, probably secondary to blood loss + Elevated troponin secondary to demand ischemia + History of HFpEF + History of HTN, bilateral pleural effusion, history of DVT, history of anemia, TACO on CPAP, anxiety, depression, rheumatoid arthritis, history of colonic perfusion s/p colostomy, hypothyroidism - Admit to telemetry - Continuous telemetry monitoring - Serial troponins and ECGs - Transfuse 2 units PRBC, and 40 mg IV Lasix along with blood transfusion - Repeat H&H after 2 unit transfusion, reassess for transfusion goal hemoglobin 8 - Cardiology consult - Gastroenterologic consult - Hold aspirin and Xeralto - Protonix 40 mg IV twice a day - Replete B12 and folic acid - Continue clears PO for now - hold lisinopril, continue rest of her home medications
--- NOTE | 2017-05-22 20:23 | CT SCAN REPORT ---
EXAMINATION: CT ABDOMEN AND PELVIS WITHOUT CONTRAST CLINICAL INFORMATION: Abdominal pain. COMPARISON: 12/06/2015. TECHNIQUE: Contiguous axial thin section helical images of the abdomen and pelvis were performed without oral or IV contrast. The data set was reformatted in the coronal and sagittal planes and reviewed on an independent workstation. DLP: 566 mGy-cm. FINDINGS: There is a moderate to large right pleural effusion and a small left pleural effusion. There is associated airspace disease. The visualized portions of the heart are unremarkable. There is a moderate hiatal hernia. The liver is of normal size and attenuation without focal lesions nor intrahepatic biliary ductal dilation. There is a calculus within the gallbladder lumen. There is no wall thickening or discernible pericholecystic fluid. The spleen, pancreas, adrenal glands are unremarkable. Both kidneys are of normal size and attenuation without hydronephrosis or nephrolithiasis. There is no abdominal free fluid. There is neither mesenteric nor retroperitoneal lymphadenopathy. There is an colostomy within the left lower quadrant. Otherwise, unremarkable unopacified loops of small and large bowel are identified. There is no pelvic free fluid. The urinary bladder is unremarkable. There is neither pelvic nor inguinal lymphadenopathy. Bone windows: Neither sclerotic nor lytic bone lesions are identified. Again identified is an L3 compression fracture. IMPRESSION: Left lower quadrant colostomy. No evidence for obstruction. Right greater than left bilateral pleural effusions. Cholelithiasis without CT evidence of cholecystitis. Hiatal hernia.
[2017-05-22 22:49] VITALS: BP 144/70
--- NOTE | 2017-05-23 04:11 | Admission Certification ---
Admission Certification Certification Statement - As attending physician, I certify that at the time of - admission, based on clinical presentation, severity of - symptoms, need for further diagnostic testing and - therapeutic interventions, and risk of adverse outcomes - without in-hospital treatment, in my clinical assessment, - this patient requires an acute hospital stay for a minimum - of two nights or longer. I have also considered psychsocial - factors such as support system, advanced age, financial - issues, cognitive issues, and failed out-patient treatments, - past re-admission history, safety of patient, and lack of - compliance as applicable. Specific rationale supporting this admission is: symptomatic anemia, elevated troponin
[2017-05-23 04:48] LABS: ABSOLUTE BASOPHIL COUNT 0.1 /CUMM (0.0-0.2); ABSOLUTE EOSINOPHIL COUNT 0.1 /CUMM (0.0-0.7); ABSOLUTE GRANULOCYTE CT 5.4 /CUMM (1.4-6.5); ABSOLUTE LYMPH COUNT 1.9 /CUMM (1.2-3.4); ABSOLUTE MONOCYTE COUNT 0.7 /CUMM (0.10-0.60); BASOPHIL % 0.7 % (0.0-2.0); EOSINOPHIL % 1.2 % (0-5); GRANULOCYTE % 66.6 % (42.2-75.2); MEAN CORPUSCULAR HGB 28.8 PG (27.0-31.0); MEAN CORPUSCULAR HGB CONC 32.6 G/DL (33.0-37.0); MEAN PLATELET VOLUME 7.3 FL (7.4-10.4); PLATELET COUNT 260 /CUMM (130-400); RBC DISTRIBUTION WIDTH 19.5 % (11.5-14.5); WHITE BLOOD CELL COUNT 8.1 /CUMM (4.8-10.8)
[2017-05-23 04:56] LABS: HEMATOCRIT 21.6 % (37-47); MEAN CORPUSCULAR VOLUME 88.3 FL (81.0-99.0)
[2017-05-23 04:57] LABS: RED BLOOD CELL CT 2.45 /CUMM (4.20-5.40)
[2017-05-23 06:49] VITALS: BP 128/64
--- NOTE | 2017-05-23 07:20 | PN- Housestaff ---
See Addendum Subjective Follow-up For: Acute blood loss Elevated troponin Tele-Events Since Last Visit: SR, PVCs HR 68-76 Subjective: No complaints. No acute events overnight. She denies SOB, palpitations, CP, lightheadedness Review of Systems Constitutional: Reports: see HPI. Objective Last 24 Hrs of Vital Signs/I&O Vital Signs Date Time Temp Pulse Resp B/P B/P Pulse O2 O2 Flow FiO2 Mean Ox Delivery Rate 05/23 0649 98.4 72 20 128/64 93 Room Air 05/23 0000 Room Air 05/22 2249 98.8 77 20 144/70 94 Room Air 05/22 2211 Room Air 05/22 2149 96.8 81 18 179/74 97 Room Air 05/22 1923 96.8 79 18 155/64 95 Room Air 05/22 1859 96.5 81 16 162/67 98 Room Air 05/22 1719 96.6 85 20 139/67 92 Room Air Room Air Intake & Output 05/23 1600 05/23 0800 05/23 0000 Intake Total 350 1000 Output Total Balance 350 1000 Intake, IV 350 1000 Patient 140 lb Weight Weight Reported by Patient Measurement Method Physical Exam General Appearance: Alert, Oriented X3, Cooperative, No Acute Distress Cardiovascular: Regular Rate, Normal S1, Normal S2 Lungs: Clear to Auscultation, Normal Air Movement Abdomen: Ostomy bag with dark stools Extremities: 2+ BLE pitting edema Current Medications: Current Medications Sig/Rick Start time Last Medication Dose Route Stop Time Status Admin Acetaminophen 650 MG Q6PRN PRN 05/22 2130 AC PO Albuterol Sulfate 3 ML Q4H PRN 05/22 2300 AC INH Ferrous Sulfate 325 MG DAILY 05/23 1000 AC PO Furosemide 20 MG DAILY 05/23 1000 AC PO Furosemide 40 MG ONCE ONE 05/22 2129 DC 05/23 IV 05/22 2130 0013 Hydromorphone HCl 2 MG Q8P PRN 05/22 2229 AC 05/23 PO 0359 Hydromorphone HCl 0 .STK-MED ONE 05/22 2020 DC .ROUTE Hydromorphone HCl 1 MG ONCE ONE 05/22 2014 DC 05/22 IV 05/22 Hydroxychloroquine 200 MG BID 05/23 1000 AC Sulfate PO Levothyroxine Sodium 0.025 MG DAILY AC 05/23 0700 AC 05/23 PO 0754 Lisinopril 10 MG QAM 05/23 1000 AC PO Ondansetron HCl 0 .STK-MED ONE 05/23 2019 DC .ROUTE Ondansetron HCl 4 MG ONCE ONE 05/22 2014 DC 05/22 IV 05/22 Pantoprazole Sodium 40 MG BID 05/22 2200 AC 05/23 IV 0013 Prednisone 10 MG QAM 05/23 1000 AC PO Sertraline HCl 25 MG QAM 05/23 1000 AC PO Sodium Chloride 1,000 ML BOLUS ONE 05/22 173 DC 05/22 IV 05/22 1829 1743 Last 24 Hrs of Lab/Rubin Results Last 24 Hrs of Labs/Mics: Laboratory Tests 05/23/17 0430: Anion Gap 5, Estimated GFR 40 L, BUN/Creatinine Ratio 26.2 H, CBC w Diff NO MAN DIFF REQ, RBC 2.45 L, MCV 88.3, MCH 28.8, MCHC 32.6 L, RDW 19.5 H, MPV 7.3 L, Gran % 66.6, Lymphocytes % 23.5, Monocytes % 8.0, Eosinophils % 1.2, Basophils % 0.7, Absolute Granulocytes 5.4, Absolute Lymphocytes 1.9, Absolute Monocytes 0.7 H, Absolute Eosinophils 0.1, Absolute Basophils 0.1 05/23/17 0200: Troponin I 0.63 *H 05/23/17 0200: Lactic Acid 0.7, CBC w Diff Cancelled, WBC Cancelled, RBC Cancelled, Hgb Cancelled, Hct Cancelled, MCV Cancelled, MCH Cancelled, MCHC Cancelled, RDW Cancelled, Plt Count Cancelled, MPV Cancelled 05/23/17 0042: CBC w Diff Cancelled, WBC Cancelled, RBC Cancelled, Hgb Cancelled, Hct Cancelled , MCV Cancelled, MCH Cancelled, MCHC Cancelled, RDW Cancelled, Plt Count Cancelled, MPV Cancelled 05/22/17 1731: Jcn-D-Ybewckxedvs Pept Cancelled 05/22/17 1728: Lactic Acid 1.1 05/22/17 1728: Anion Gap 6, Estimated GFR 36 L, BUN/Creatinine Ratio 27.9 H, Glucose 93, Calcium 9.5, Magnesium 1.8, Iron 13 L, TIBC 280, Ferritin 33.5, Total Bilirubin < 0.1 L, AST 18, ALT 24, Alkaline Phosphatase 51, Troponin I 0.66 *H, Pro-B- Natriuretic Pept 9410 H, Total Protein 4.4 L, Albumin 2.3 L, Globulin 2.1, Albumin/Globulin Ratio 1.1, PT 18.4 H, INR 1.76 H, APTT 33, CBC w Diff NO MAN DIFF REQ, RBC 1.54 L, MCV 93.4, MCH 28.8, MCHC 30.8 L, RDW 18.4 H, MPV 7.7, Gran % 83.8 H, Lymphocytes % 12.0 L, Monocytes % 3.6, Eosinophils % 0.3, Basophils % 0.3, Absolute Granulocytes 6.2, Absolute Lymphocytes 0.9 L, Absolute Monocytes 0.3, Absolute Eosinophils 0, Absolute Basophils 0 05/22/17 1726: Magnesium Cancelled Microbiology 05/23 0246 URINE ROUT: Urine Culture - COLB Assessment/Plan Assessment: 76-year-old female with past medical history of CHF, hypertension, anemia, hyperlipidemia, diverticulitis, bowel perforation status post colostomy, rheumatoid arthritis, anxiety, depression, insomnia, and vitamin D deficiency presenting for low hemoglobin. Problem list: Acute blood loss/anemia Elevated troponin secondary to demand ischemia History of HFpEF History of HTN, bilateral pleural effusion, history of DVT, history of anemia, TACO on CPAP, anxiety, depression, rheumatoid arthritis, history of colonic perfusion s/p colostomy, hypothyroidism Plan: * Patient received 2 units PRBCs with 20 mg IV Lasix on admission. Her hemoglobin is currently 7.1 * Transfuse 1 unit of blood, goal>8 * Give 20 mg IV Lasix * Continue prednisone, lisinopril, hydroxychloroquine, ferrous sulfate, levothyroxine, IV Protonix twice a day * Continue strict I&Os, currently +1000 fluid balance * Serial troponin/ECG * Endoscopy in a.m. * Hold xarelto * NPO at midnight * Cardiology recommendations appreciated * GI recommendations appreciated * DVT prophylaxis: ALPS Problem List: 1. Elevated troponin 2. Acute blood loss anemia Pain Ratin Pain Location: NA Pain Goal: Remain pain free Pain Plan: NA Tomorrow's Labs & Rationales: CBC for anemia BEP for hypokalemia
--- NOTE | 2017-05-23 09:33 | Cons- Gastroenterology ---
General Information and HPI Consulting Request Date of Consult: 05/23/17 Requested By: James Cortes MD Reason for Consult: Anemia, guaiac positive stool. Source of Information: patient, old records Exam Limitations: no limitations History of Present Illness: Ms. Corona is a 76 year old male with RA, CHF, HTN, and a DVT for which she has recently been put on xarelto and iron deficiency anemia who presented to yesterday with anemia. She had routine blood work done yesterday and was then told to come to the hospital for a hgb around 4.5. She has been feeling lightheaded, short of breath and fatigued over the past few weeks. She is on iron for chronic anemia and she notes that this makes her stool dark and she has not noticed any significant difference in the stool in her colostomy bag over the past few weeks. She has also been without any heartburn, dysphagia or vomiting and she hasn't seen any bright red blood in her colostomy. She has been having diffuse vague epigastric discomfort for which she has been getting narcotics in the hospital. She has a history of MAI and underwent a GI work up as an inpatient during which time an EGD showed a non-bleeding small bowel avm and a moderate sized hiatal hernia with emiliano erosions. Her colonoscopy was not able to completed to the cecum and actually resulted in a perforation for which she had a colostomy done. She has been seeing an outpatient gastroenterolgist, but it is unclear if she ever had a full colonoscopy done since her surgery or if a pill cam was done. In the ER she was hemodynamicaly stable and was noted to have dark stool in her colostomy that was guaiac postive and she also was noted to have a hgb of 4.4. She was transfused with 2 units of PRBCs overnight with a rise in her hgb to 7.1 and she is currently getting a 3rd unit. She has remained hemodynamically stable since discharge. Allergies/Medications Allergies: Coded Allergies: Penicillins (SWELLING, RASH, ITCH 05/22/17) aspirin (RASH 05/22/17) cephalexin (From KEFLEX) (ITCHY 05/22/17) codeine (ITCH 05/22/17) levofloxacin (From LEVAQUIN) (RASH 05/22/17) oxaprozin (From DAYPRO) (RASH 05/22/17) propoxyphene (UNKNOWN REACTION TO DARVOCET 05/22/17) Home Med List: Calcium Carbonate/Vitamin D3 (Os-Mehdi 500+D3 Caplet) 500 MG-200 TABLET 1 TAB PO DAILY SUPPLEMENT (Reported) Carvedilol 25 MG TABLET 1 TAB PO BID HEART/BP (Reported) Ergocalciferol (Vitamin D2) (Vitamin D2) 50,000 UNIT CAPSULE 1 CAP PO QWED SUPPLEMENT (Reported) Ferrous Gluconate (Unknown Strength) TABLET (Unknown Dose) PO DAILY SUPPLEMENT (Reported) Furosemide (Lasix) 20 MG TABLET 1 TAB PO DAILY DIURETIC (Reported) Hydromorphone HCl (Dilaudid) 4 MG TABLET 0.5-1 TAB PO Q8P PRN PAIN (Reported) Hydroxychloroquine Sulfate 200 MG TABLET 1 TAB PO BID RA (Reported) Levothyroxine Sodium 25 MCG TABLET 1 TAB PO DAILY AC THYROID (Reported) Lisinopril 10 MG TABLET 1 TAB PO QAM BP (Reported) Omeprazole 20 MG TABLET.DR 1 TAB PO DAILY GI (Reported) Potassium Chloride (Klor-Con 10) (Unknown Strength) TABLET.ER (Unknown Dose) PO DAILY SUPPLEMENT (Reported) Prednisone 10 MG TABLET 1 TAB PO QAM STEROID (Reported) Rivaroxaban (Xarelto) 20 MG TABLET 1 TAB PO 0900 BLOOD THINNER (Reported) with food Sennosides/Docusate Sodium (Senna Plus Tablet) 8.6 MG-50 MG TABLET 1 TAB PO DAILY NEEDED PRN CONSTIPATION . Sertraline HCl 25 MG TABLET 1 TAB PO QAM MENTAL HEALTH (Reported) Current Medications: Current Medications Sig/Rick Start time Last Medication Dose Route Stop Time Status Admin Acetaminophen 650 MG Q6PRN PRN 05/22 2130 AC PO Albuterol Sulfate 3 ML Q4H PRN 05/22 2300 AC INH Ferrous Sulfate 325 MG DAILY 05/23 1000 AC PO Furosemide 20 MG DAILY 05/23 1000 AC PO Furosemide 20 MG ONCE ONE 05/23 0815 DC IV 05/23 0816 Furosemide 40 MG ONCE ONE 05/22 2130 DC 05/23 IV 05/22 2131 0013 Hydromorphone HCl 1 MG ONCE ONE 05/23 0930 DC IV 05/23 0931 Hydromorphone HCl 2 MG Q8P PRN 05/22 2230 AC 05/23 PO 0359 Hydromorphone HCl 0 .STK-MED ONE 05/22 2020 DC .ROUTE Hydromorphone HCl 1 MG ONCE ONE 05/22 2014 DC 05/22 IV 05/22 Hydroxychloroquine 200 MG BID 05/23 1000 AC Sulfate PO Levothyroxine Sodium 0.025 MG DAILY AC 05/23 0700 AC 05/23 PO 0754 Lisinopril 10 MG QAM 05/23 1000 AC PO Ondansetron HCl 0 .STK-MED ONE 05/23 2019 DC .ROUTE Ondansetron HCl 4 MG ONCE ONE 05/22 2014 DC 05/22 IV 05/22 Pantoprazole Sodium 40 MG BID 05/22 2200 AC 05/23 IV 0013 Prednisone 10 MG QAM 05/23 1000 AC PO Sertraline HCl 25 MG QAM 05/23 1000 AC PO Sodium Chloride 1,000 ML BOLUS ONE 05/22 1730 DC 05/22 IV 05/22 1829 1743 Past History Travel History Traveled to [place] past 21 day No Medical History Blood Transfusion Hx: Yes Neurological: migraine EENT: cataracts Cardiovascular: CHF, hypertension, hyperlipidemia Respiratory: pneumonia, DYSPNEA Gastrointestinal: diverticulitis, HEMORRHOIDS BOWEL RESECTION COLOSTOMY Hepatic: NONE Renal: 3+PROTEIN IN URINE [id number] Musculoskeletal: rheumatoid arthritis Psychiatric: anxiety, depression, insomnia Endocrine: vitamin D deficiency Blood Disorders: anemia Cancer(s): NONE MERCANTILE REPORTER/Reproductive: NONE Surgical History Surgical History: colon resection, hysterectomy, laminectomy Family History Relations & Conditions If Any: Relation not specified for: *No pertinent family history Psychosocial History Where Do You Live? Home Services at Home: [facility] Primary Language: Yemeni Smoking Status: Former Smoker ETOH Use: denies use Illicit Drug Use: denies illicit drug use Functional Ability Ambulation: cane IADLs Needs Assist: shopping, housework, food prep. Review of Systems Review of Systems Constitutional: Reports: malaise, weakness. Denies: diaphoresis, fever. EENTM: Denies: no symptoms. Cardiovascular: Reports: orthopena. Denies: chest pain, edema, palpitations, peripheral edema, syncope. Respiratory: Reports: short of breath. Denies: cough, hemoptysis, sputum production. GI: Denies: no symptoms. Genitourinary: Denies: no symptoms. Musculoskeletal: Reports: joint pain. Denies: joint swelling, muscle pain, muscle stiffness. Skin: Denies: no symptoms. Neurological/Psychological: Denies: no symptoms. Hematologic/Endocrine: Denies: no symptoms. Immunologic/Allergic: Denies: no symptoms. All Other Systems: Reviewed and Negative Exam & Diagnostic Data Vital Signs and I&O Vital Signs Date Time Temp Pulse Resp B/P B/P Pulse O2 O2 Flow FiO2 Mean Ox Delivery Rate 05/23 0649 98.4 72 20 128/64 93 Room Air 05/23 0000 Room Air 05/22 2249 98.8 77 20 144/70 94 Room Air 05/22 2211 Room Air 05/22 2149 96.8 81 18 179/74 97 Room Air 05/22 1923 96.8 79 18 155/64 95 Room Air 05/22 1859 96.5 81 16 162/67 98 Room Air 05/22 1719 96.6 85 20 139/67 92 Room Air Room Air Intake & Output 05/23 1600 05/23 0400 05/22 1600 05/22 0400 05/21 1600 05/21 0400 Intake Total 350 1000 Output Total Balance 350 1000 Intake, IV 350 1000 Patient 140 lb Weight Weight Reported by Patient Measurement Method Physical Exam General Appearance: well developed/nourished, no apparent distress, comfortable, obese Head: atraumatic, normal appearance Eyes: Bilateral: normal appearance. Ears, Nose, Throat: normal pharynx, normal ENT inspection Neck: normal inspection Results Pertinent Lab Results: Laboratory Tests 05/23 05/23 05/23 0840 0430 0200 Chemistry Sodium (137 - 145 mmol/L) 139 Potassium (3.5 - 5.1 mmol/L) 3.8 Chloride (98 - 107 mmol/L) 111 H Carbon Dioxide (22 - 30 mmol/L) 23 Anion Gap (5 - 16) 5 BUN (7 - 17 mg/dL) 34 H Creatinine (0.5 - 1.0 mg/dL) 1.3 H Estimated GFR (>60 ml/min) 40 L BUN/Creatinine Ratio (7 - 25 %) 26.2 H Troponin I (< 0.11 ng/ml) Pending 0.63 *H Hematology CBC w Diff NO MAN DIFF REQ WBC (4.8 - 10.8 /CUMM) 8.1 RBC (4.20 - 5.40 /CUMM) 2.45 L Hgb (12.0 - 16.0 G/DL) 7.1 *L Hct (37 - 47 %) 21.6 L MCV (81.0 - 99.0 FL) 88.3 MCH (27.0 - 31.0 PG) 28.8 MCHC (33.0 - 37.0 G/DL) 32.6 L RDW (11.5 - 14.5 %) 19.5 H Plt Count (130 - 400 /CUMM) 260 MPV (7.4 - 10.4 FL) 7.3 L Gran % (42.2 - 75.2 %) 66.6 Lymphocytes % (20.5 - 51.1 %) 23.5 Monocytes % (1.7 - 9.3 %) 8.0 Eosinophils % (0 - 5 %) 1.2 Basophils % (0.0 - 2.0 %) 0.7 Absolute Granulocytes (1.4 - 6.5 /CUMM) 5.4 Absolute Lymphocytes (1.2 - 3.4 /CUMM) 1.9 Absolute Monocytes (0.10 - 0.60 /CUMM) 0.7 H Absolute Eosinophils (0.0 - 0.7 /CUMM) 0.1 Absolute Basophils (0.0 - 0.2 /CUMM) 0.1 05/23 05/23 05/22 05/22 0200 0042 1731 1728 Chemistry Lactic Acid (0.7 - 2.1 mmol/L) 0.7 1.1 [id number] Pept Cancelled Hematology CBC w Diff Cancelled Cancelled WBC Cancelled Cancelled RBC Cancelled Cancelled Hgb Cancelled Cancelled Hct Cancelled Cancelled MCV Cancelled Cancelled MCH Cancelled Cancelled MCHC Cancelled Cancelled RDW Cancelled Cancelled Plt Count Cancelled Cancelled MPV Cancelled Cancelled 05/22 05/22 1728 1726 Chemistry Sodium (137 - 145 mmol/L) 136 L Potassium (3.5 - 5.1 mmol/L) 4.4 Chloride (98 - 107 mmol/L) 107 Carbon Dioxide (22 - 30 mmol/L) 23 Anion Gap (5 - 16) 6 BUN (7 - 17 mg/dL) 39 H Creatinine (0.5 - 1.0 mg/dL) 1.4 H Estimated GFR (>60 ml/min) 36 L BUN/Creatinine Ratio (7 - 25 %) 27.9 H Glucose (65 - 99 mg/dL) 93 Calcium (8.4 - 10.2 mg/dL) 9.5 Magnesium (1.6 - 2.3 mg/dL) 1.8 Cancelled Iron (37 - 170 ug/dL) 13 L TIBC (265 - 497 ug/dL) 280 Ferritin (11.1 - 264 ng/mL) 33.5 Total Bilirubin (0.2 - 1.3 mg/dL) < 0.1 L AST (14 - 36 U/L) 18 ALT (9 - 52 U/L) 24 Alkaline Phosphatase (<127 U/L) 51 Troponin I (< 0.11 ng/ml) 0.66 *H [id number] Pept (<125 pg/mL) 9410 H Total Protein (6.3 - 8.2 g/dL) 4.4 L Albumin (3.5 - 5.0 g/dL) 2.3 L Globulin (1.9 - 4.2 gm/dL) 2.1 Albumin/Globulin Ratio (1.1 - 2.2 %) 1.1 Coagulation PT (9.4 - 12.5 SEC) 18.4 H INR (0.90 - 1.19) 1.76 H APTT (25 - 37 SEC) 33 Hematology CBC w Diff NO MAN DIFF REQ WBC (4.8 - 10.8 /CUMM) 7.4 RBC (4.20 - 5.40 /CUMM) 1.54 L Hgb (12.0 - 16.0 G/DL) 4.4 *L Hct (37 - 47 %) 14.4 *L MCV (81.0 - 99.0 FL) 93.4 MCH (27.0 - 31.0 PG) 28.8 MCHC (33.0 - 37.0 G/DL) 30.8 L RDW (11.5 - 14.5 %) 18.4 H Plt Count (130 - 400 /CUMM) 306 MPV (7.4 - 10.4 FL) 7.7 Gran % (42.2 - 75.2 %) 83.8 H Lymphocytes % (20.5 - 51.1 %) 12.0 L Monocytes % (1.7 - 9.3 %) 3.6 Eosinophils % (0 - 5 %) 0.3 Basophils % (0.0 - 2.0 %) 0.3 Absolute Granulocytes (1.4 - 6.5 /CUMM) 6.2 Absolute Lymphocytes (1.2 - 3.4 /CUMM) 0.9 L Absolute Monocytes (0.10 - 0.60 /CUMM) 0.3 Absolute Eosinophils (0.0 - 0.7 /CUMM) 0 Absolute Basophils (0.0 - 0.2 /CUMM) 0 Imaging/Other Studies: Endoscopy Procedure Medical History: unchanged Mental Status: alert/oriented Heart/Lung Eval Prior to Sedation: within normal limits Candidate for Sedation? Yes Procedure Date: 10/12/14 Procedure Type: EGD w/biopsy Yarrow Gatherer: Reinaldo Maier MD ASA Classification: III Indications: Abdominal pain, anemia. Instrument: diagnostic gastroscope Meds Received: MAC Patient's Tolerance: good Complications: none Extent Reached: second part of duodenum Procedure: After getting written informed consent the patient was placed in the left lateral decubitus position with pulse oximetry, cardiac monitoring, and supplemental oxygen given. A bite block was inserted and IV sedation was given until the desired effect was achieved. A high definition upper Olympus endoscope was then inserted into the mouth and advanced the second portion of the duodenum with little difficulty. Retroflexed views and photodocumentation was obtained. Findings: Esophagus: The esophageal mucosa was grossly normal in appearance and there was a normal-appearing Z line at 30 cm from the incisors. The hiatal narrowing was at 35 cm from the incisors accounting for a 5 cm hiatal hernia. Stomach: Retroflexed views revealed a moderate size hiatal hernia and along the edges of the hiatal hernia sac were approximately 3 linear erosions consistent with the appearance of Emiliano erosions. The remainder of the gastric mucosa was grossly normal in appearance. There were no ulcers or masses appreciated. Distention and peristalsis of the stomach appeared normal. Random biopsies were obtained from the antrum with cold biopsy forceps and sent to pathology for further evaluation. Duodenum: The duodenal bulb was moderately erythematous with prominent nodular mucosa suggestive of underlying Dago's gland hypertrophy. Biopsies were obtained from the duodenal bulb with cold biopsy forceps sent to pathology for further evaluation. The duodenal sweep and folds are grossly normal in appearance. There was a nonbleeding angiectasia in the second portion of the duodenum that was left untreated. Random biopsies were also obtained from the second portion of the duodenum and sent pathology further evaluation. Impression: 1. 5 cm hiatal hernia with Emiliano erosions status post antral biopsies. 2. Duodenitis with Dago's glands hypertrophy status post biopsies. 3. Nonbleeding small bowel AVM left untreated. 4. Normal small bowel folds status post biopsies. SERVICE DATE: 05/22/17 EXAM TYPE: CAT - CT ABD & PELVIS W/O IV CONTRAS EXAMINATION: CT ABDOMEN AND PELVIS WITHOUT CONTRAST CLINICAL INFORMATION: Abdominal pain. COMPARISON: 12/06/2015. TECHNIQUE: Contiguous axial thin section helical images of the abdomen and pelvis were performed without oral or IV contrast. The data set was reformatted in the coronal and sagittal planes and reviewed on an independent workstation. DLP: 566 mGy-cm. FINDINGS: There is a moderate to large right pleural effusion and a small left pleural effusion. There is associated airspace disease. The visualized portions of the heart are unremarkable. There is a moderate hiatal hernia. The liver is of normal size and attenuation without focal lesions nor intrahepatic biliary ductal dilation. There is a calculus within the gallbladder lumen. There is no wall thickening or discernible pericholecystic fluid. The spleen, pancreas, adrenal glands are unremarkable. Both kidneys are of normal size and attenuation without hydronephrosis or nephrolithiasis. There is no abdominal free fluid. There is neither mesenteric nor retroperitoneal lymphadenopathy. There is an colostomy within the left lower quadrant. Otherwise, unremarkable unopacified loops of small and large bowel are identified. There is no pelvic free fluid. The urinary bladder is unremarkable. There is neither pelvic nor inguinal lymphadenopathy. Bone windows: Neither sclerotic nor lytic bone lesions are identified. Again identified is an L3 compression fracture. IMPRESSION: Left lower quadrant colostomy. No evidence for obstruction. Right greater than left bilateral pleural effusions. Cholelithiasis without CT evidence of cholecystitis. Hiatal hernia. Assessment/Plan Assessment/Recommendations: Assessment: Ms. Corona is a 76 year old female with multimple medical problems who was noted to have an acute drop in her baseline hgb to about 4.4 of uncertain etiology, but I suspect she may have small bowel avms that may have been exacerbated to bleed by the anticoagulation she has been on. She is without a clear history of overt gi bleeding, but she has been noted to have guaiac positive stool and her ct scan was negative for a retroperitoneal bleed so I will plan to repeat an EGD/push enteroscopy to look for an upper GI source of her acute drop in her hgb. While it may ultimately be reasonable to repeat a colonoscopy, especially if it turns out that a complete one to the cecum has never been done, but I don't necessarily feel this needs to be done as an inpatient. As she is on xaretlo and apparently last took it yesterday and as her hgb has responded appropriately to transfusion I will plan to do the EGD tomorrow giving the xarelto more time to clear which may also take a bit longer then usual considering her renal insufficiency. She also had a moderate sized hiatal hernia on her EGD a few years ago and there were emiliano erosions at that time as well so it is also possible that could of bled more briskly with the anticoagulation. She is on a ppi as an outpatient, but that won't necessarily stop emiliano erosions from forming as this generally occurs from mechanical stress forces and not necessarily from acid. Recommendations: 1. Full liquid diet for now and keep NPO after midnight for a diagnostic EGD/ push enterosocopy in the am and she will need to be transferred to the ICU for the procedure to be done over the weekend. 2. Follow CBC and transfuse as needed to keep hgb > 7 or as per cardiology recommendations. 3. Hold xarelto for now 4. Maintain 2 large bore IVs at all times 5. IV protonix bid fow now 6. Avoid NSAIDs 7. Notify GI for signs of overt GI bleeding in which case an EGD will be expedited. 8. If possible would contact her outside GI and find out if a full colonoscopy and or a pill cam have ever been pursued. I will continue to follow this patient and make further recommendations based on her clinical course and results of the EGD/push enteroscopy to be done tomorrow. Problem List: 1. Rheumatoid arthritis 2. Acute blood loss anemia 3. GI bleed 4. Symptomatic anemia Copies To: Tong CURTIS,Corrina Consult Acknowledgment - Thank you for your consult request.
[2017-05-23 14:32] VITALS: BP 142/84
[2017-05-23 15:52] LABS: ABSOLUTE BASOPHIL COUNT 0.1 /CUMM (0.0-0.2); ABSOLUTE EOSINOPHIL COUNT 0.2 /CUMM (0.0-0.7); ABSOLUTE GRANULOCYTE CT 4.5 /CUMM (1.4-6.5); ABSOLUTE LYMPH COUNT 1.9 /CUMM (1.2-3.4); ABSOLUTE MONOCYTE COUNT 0.5 /CUMM (0.10-0.60); BASOPHIL % 0.7 % (0.0-2.0); EOSINOPHIL % 2.8 % (0-5); GRANULOCYTE % 62.7 % (42.2-75.2); MEAN CORPUSCULAR HGB 29.4 PG (27.0-31.0); MEAN PLATELET VOLUME 7.6 FL (7.4-10.4); PLATELET COUNT 256 /CUMM (130-400); RBC DISTRIBUTION WIDTH 17.6 % (11.5-14.5); WHITE BLOOD CELL COUNT 7.2 /CUMM (4.8-10.8)
[2017-05-23 15:54] LABS: HEMATOCRIT 27.6 % (37-47)
--- NOTE | 2017-05-23 17:09 | Cons- Cardiology ---
General Information and HPI Consulting Request Date of Consult: 05/23/17 Requested By: James Cortes MD Reason for Consult: Marked anemia. Source of Information: patient, family, old records Exam Limitations: poor historian History of Present Illness: Mrs. Rama Corona is a 76-year-old female with a history of anxiety/ depression, rheumatoid arthritis on chronic steroid therapy, previous deep venous thrombosis on chronic anticoagulation with the factor Xa inhibitor Eliquis (apixaban), obesity, obstructive sleep apnea on CPAP, chronic anemia, hypertension, left ventricular hypertrophy with diastolic dysfunction, and aortic regurgiatation, who presented to the ED on the recommendation of her primary care physician (Corrina Fortune M.D.) after blood work she ordered revealed marked anemia. She has a colostomy (vide infra) and is on chronic iron therapy with chronically dark colostomy bag contents. She was hospitalized here (10/10-10/28/2014) for colonic perforation following a colonoscopy preformed for GI symptoms s/p Constance procedure with subsequent modest bump in troponin felt secondary to type II myocardial infarction, volume overload, acute kidney injury, and growth of Escherichia coli in her body fluid who was again admitted (-11/17/2014) after presenting to the ED with constant periumbilical 8/10 ache with some associated shortness of breath with room air O2 saturation at ECF 88% following 2 days of decreased by mouth intake secondary to poor appetite and nausea. Also reportedly had a fever, nausea and vomited 3, as well as, some loose stool in her colostomy bag. In the emergency department she was afebrile, tachypneic, and did have an elevated WBC count with left shift. There were no symptoms to suggest a urinary tract infection. She had a low probability V/Q scan and had been recommended thoracentesis for bilateral pleural effusions, but opted to be transferred to [facility]. There was no evidence of an acute intra-abdominal process. Thoracentesis was reportedly performed at [facility]. She was admitted to [facility] for a left lower extremity deep venous thrombosis in July 2016 and started on anticoagulation with a factor X inhibitor. She was also reportedly admitted to [facility] for pneumonia and pleural effusions for which she underwent thoracentesis. She was last hospitalized here (04/02-04/17/2017) with HFpEF, bilateral pleural effusions, and bronchitis/pneumonia. Allergies/Medications Allergies: Coded Allergies: Penicillins (SWELLING, RASH, ITCH 05/22/17) aspirin (RASH 05/22/17) cephalexin (From KEFLEX) (ITCHY 05/22/17) codeine (ITCH 05/22/17) levofloxacin (From LEVAQUIN) (RASH 05/22/17) oxaprozin (From DAYPRO) (RASH 05/22/17) propoxyphene (UNKNOWN REACTION TO DARVOCET 05/22/17) Home Med List: Calcium Carbonate/Vitamin D3 (Os-Mehdi 500+D3 Caplet) 500 MG-200 TABLET 1 TAB PO DAILY SUPPLEMENT (Reported) Carvedilol 25 MG TABLET 1 TAB PO BID HEART/BP (Reported) Ergocalciferol (Vitamin D2) (Vitamin D2) 50,000 UNIT CAPSULE 1 CAP PO QWED SUPPLEMENT (Reported) Ferrous Gluconate (Unknown Strength) TABLET (Unknown Dose) PO DAILY SUPPLEMENT (Reported) Furosemide (Lasix) 20 MG TABLET 1 TAB PO DAILY DIURETIC (Reported) Hydromorphone HCl (Dilaudid) 4 MG TABLET 0.5-1 TAB PO Q8P PRN PAIN (Reported) Hydroxychloroquine Sulfate 200 MG TABLET 1 TAB PO BID RA (Reported) Levothyroxine Sodium 25 MCG TABLET 1 TAB PO DAILY AC THYROID (Reported) Lisinopril 10 MG TABLET 1 TAB PO QAM BP (Reported) Omeprazole 20 MG TABLET.DR 1 TAB PO DAILY GI (Reported) Potassium Chloride (Klor-Con 10) (Unknown Strength) TABLET.ER (Unknown Dose) PO DAILY SUPPLEMENT (Reported) Prednisone 10 MG TABLET 1 TAB PO QAM STEROID (Reported) Rivaroxaban (Xarelto) 20 MG TABLET 1 TAB PO 0900 BLOOD THINNER (Reported) with food Sennosides/Docusate Sodium (Senna Plus Tablet) 8.6 MG-50 MG TABLET 1 TAB PO DAILY NEEDED PRN CONSTIPATION . Sertraline HCl 25 MG TABLET 1 TAB PO QAM MENTAL HEALTH (Reported) Past History Travel History Traveled to [place] past 21 day No Medical History Blood Transfusion Hx: Yes Neurological: migraine EENT: cataracts Cardiovascular: CHF, hypertension, hyperlipidemia Respiratory: pneumonia, DYSPNEA Gastrointestinal: diverticulitis, HEMORRHOIDS BOWEL RESECTION COLOSTOMY Hepatic: NONE Renal: 3+PROTEIN IN URINE [id number] Musculoskeletal: rheumatoid arthritis Psychiatric: anxiety, depression, insomnia Endocrine: vitamin D deficiency Blood Disorders: anemia Cancer(s): NONE CLINICAL RADIOLOGIST/Reproductive: NONE Surgical History Surgical History: colon resection, hysterectomy, laminectomy Family History Relations & Conditions If Any: Relation not specified for: *No pertinent family history Psychosocial History Where Do You Live? Home Services at Home: [facility] Primary Language: Yoruba Smoking Status: Former Smoker ETOH Use: denies use Illicit Drug Use: denies illicit drug use Functional Ability Ambulation: cane IADLs Needs Assist: shopping, housework, food prep. Exam & Diagnostic Data Vital Signs and I&O Vital Signs Date Time Temp Pulse Resp B/P B/P Pulse O2 O2 Flow FiO2 Mean Ox Delivery Rate 05/23 1600 Room Air 05/23 1511 Room Air 05/23 1501 74 142/84 05/23 1432 98.0 74 20 142/84 95 Room Air 05/23 0649 98.4 72 20 128/64 93 Room Air 05/23 0000 Room Air 05/22 2249 98.8 77 20 144/70 94 Room Air 05/22 2211 Room Air 05/22 2149 96.8 81 18 179/74 97 Room Air 05/22 1923 96.8 79 18 155/64 95 Room Air 05/22 1859 96.5 81 16 162/67 98 Room Air 05/22 1719 96.6 85 20 139/67 92 Room Air Room Air Intake & Output 05/23 1600 05/23 0800 / 0000 03/ 1600 05/22 0800 03 0000 Intake Total 214 984 2683 Output Total Balance 746 521 4330 Intake, Blood 330 Product Intake, IV 50 350 1000 Patient 140 lb 140 lb Weight Weight Reported by Patient Measurement Method Physical Exam: Chronically ill-appearing elderly female who appears spell who has nasal oxygen in place. Vital signs: See above. HEENT: Normocephalic, atraumatic, EOMI, slightly dry mucous membranes. Neck: No JVD, no bruits. Lungs: Decreased breath sounds at the bases right greater than left. Heart: S1, S2 with grade 2/6 systolic ejection type murmur best heard at the base. Abdomen: Soft, positive bowel sounds, nontender, colostomy bag in place. Extremities: No edema. Labs/Rubin Results: Laboratory Tests 05/23 05/23 1515 0915 Hematology CBC w Diff NO MAN DIFF REQ WBC (4.8 - 10.8 /CUMM) 7.2 RBC (4.20 - 5.40 /CUMM) 3.10 L Hgb (12.0 - 16.0 G/DL) 9.1 L Hct (37 - 47 %) 27.6 L MCV (81.0 - 99.0 FL) 89.0 MCH (27.0 - 31.0 PG) 29.4 MCHC (33.0 - 37.0 G/DL) 33.0 RDW (11.5 - 14.5 %) 17.6 H Plt Count (130 - 400 /CUMM) 256 MPV (7.4 - 10.4 FL) 7.6 Gran % (42.2 - 75.2 %) 62.7 Lymphocytes % (20.5 - 51.1 %) 26.4 Monocytes % (1.7 - 9.3 %) 7.4 Eosinophils % (0 - 5 %) 2.8 Basophils % (0.0 - 2.0 %) 0.7 Absolute Granulocytes (1.4 - 6.5 /CUMM) 4.5 Absolute Lymphocytes (1.2 - 3.4 /CUMM) 1.9 Absolute Monocytes (0.10 - 0.60 /CUMM) 0.5 Absolute Eosinophils (0.0 - 0.7 /CUMM) 0.2 Absolute Basophils (0.0 - 0.2 /CUMM) 0.1 Urines Urine Color (YEL,AMB,STR) STRAW Urine Clarity (CLEAR) HAZY H Urine pH (5.0 - 8.0) 6.0 Ur Specific [place] (1.001 - 1.035) 1.025 Urine Protein (NEG,<30 MG/DL) 100 H Urine Ketones (NEG) NEG Urine Nitrite (NEG) NEG Urine Bilirubin (NEG) NEG Urine Urobilinogen (0.1 - 1.0 EU/dl) 0.2 Ur Leukocyte Esterase (NEG) TRACE H Ur Microscopic SEDIMENT EXAMINED Urine RBC (0 - 5 /HPF) 1-3 Urine WBC (0 - 2 /HPF) 5-10 H Ur Epithelial Cells (NONE,FEW) RARE Urine Bacteria (NEG/NONE) PACKD H Hyaline Casts (0/LPF) 1-3 H Granular Casts (NONE /LPF) RARE H Urine Mucus (FEW,NONE) RARE Urine Hemoglobin (NEG) SMALL H Urine Glucose (N MG/DL) NEG 05/23 05/23 05/23 0840 0430 0200 Chemistry Sodium (137 - 145 mmol/L) 139 Potassium (3.5 - 5.1 mmol/L) 3.8 Chloride (98 - 107 mmol/L) 111 H Carbon Dioxide (22 - 30 mmol/L) 23 Anion Gap (5 - 16) 5 BUN (7 - 17 mg/dL) 34 H Creatinine (0.5 - 1.0 mg/dL) 1.3 H Estimated GFR (>60 ml/min) 40 L BUN/Creatinine Ratio (7 - 25 %) 26.2 H Troponin I (< 0.11 ng/ml) 0.59 *H 0.63 *H Hematology CBC w Diff NO MAN DIFF REQ WBC (4.8 - 10.8 /CUMM) 8.1 RBC (4.20 - 5.40 /CUMM) 2.45 L Hgb (12.0 - 16.0 G/DL) 7.1 *L Hct (37 - 47 %) 21.6 L MCV (81.0 - 99.0 FL) 88.3 MCH (27.0 - 31.0 PG) 28.8 MCHC (33.0 - 37.0 G/DL) 32.6 L RDW (11.5 - 14.5 %) 19.5 H Plt Count (130 - 400 /CUMM) 260 MPV (7.4 - 10.4 FL) 7.3 L Gran % (42.2 - 75.2 %) 66.6 Lymphocytes % (20.5 - 51.1 %) 23.5 Monocytes % (1.7 - 9.3 %) 8.0 Eosinophils % (0 - 5 %) 1.2 Basophils % (0.0 - 2.0 %) 0.7 Absolute Granulocytes (1.4 - 6.5 /CUMM) 5.4 Absolute Lymphocytes (1.2 - 3.4 /CUMM) 1.9 Absolute Monocytes (0.10 - 0.60 /CUMM) 0.7 H Absolute Eosinophils (0.0 - 0.7 /CUMM) 0.1 Absolute Basophils (0.0 - 0.2 /CUMM) 0.1 05/23 05/23 05/22 05/22 0200 0042 1731 1728 Chemistry Lactic Acid (0.7 - 2.1 mmol/L) 0.7 1.1 [id number] Pept Cancelled Hematology CBC w Diff Cancelled Cancelled WBC Cancelled Cancelled RBC Cancelled Cancelled Hgb Cancelled Cancelled Hct Cancelled Cancelled MCV Cancelled Cancelled MCH Cancelled Cancelled MCHC Cancelled Cancelled RDW Cancelled Cancelled Plt Count Cancelled Cancelled MPV Cancelled Cancelled 05/22 05/22 1728 1726 Chemistry Sodium (137 - 145 mmol/L) 136 L Potassium (3.5 - 5.1 mmol/L) 4.4 Chloride (98 - 107 mmol/L) 107 Carbon Dioxide (22 - 30 mmol/L) 23 Anion Gap (5 - 16) 6 BUN (7 - 17 mg/dL) 39 H Creatinine (0.5 - 1.0 mg/dL) 1.4 H Estimated GFR (>60 ml/min) 36 L BUN/Creatinine Ratio (7 - 25 %) 27.9 H Glucose (65 - 99 mg/dL) 93 Calcium (8.4 - 10.2 mg/dL) 9.5 Magnesium (1.6 - 2.3 mg/dL) 1.8 Cancelled Iron (37 - 170 ug/dL) 13 L TIBC (265 - 497 ug/dL) 280 Ferritin (11.1 - 264 ng/mL) 33.5 Total Bilirubin (0.2 - 1.3 mg/dL) < 0.1 L AST (14 - 36 U/L) 18 ALT (9 - 52 U/L) 24 Alkaline Phosphatase (<127 U/L) 51 Troponin I (< 0.11 ng/ml) 0.66 *H [id number] Pept (<125 pg/mL) 9410 H Total Protein (6.3 - 8.2 g/dL) 4.4 L Albumin (3.5 - 5.0 g/dL) 2.3 L Globulin (1.9 - 4.2 gm/dL) 2.1 Albumin/Globulin Ratio (1.1 - 2.2 %) 1.1 Coagulation PT (9.4 - 12.5 SEC) 18.4 H INR (0.90 - 1.19) 1.76 H APTT (25 - 37 SEC) 33 Hematology CBC w Diff NO MAN DIFF REQ WBC (4.8 - 10.8 /CUMM) 7.4 RBC (4.20 - 5.40 /CUMM) 1.54 L Hgb (12.0 - 16.0 G/DL) 4.4 *L Hct (37 - 47 %) 14.4 *L MCV (81.0 - 99.0 FL) 93.4 MCH (27.0 - 31.0 PG) 28.8 MCHC (33.0 - 37.0 G/DL) 30.8 L RDW (11.5 - 14.5 %) 18.4 H Plt Count (130 - 400 /CUMM) 306 MPV (7.4 - 10.4 FL) 7.7 Gran % (42.2 - 75.2 %) 83.8 H Lymphocytes % (20.5 - 51.1 %) 12.0 L Monocytes % (1.7 - 9.3 %) 3.6 Eosinophils % (0 - 5 %) 0.3 Basophils % (0.0 - 2.0 %) 0.3 Absolute Granulocytes (1.4 - 6.5 /CUMM) 6.2 Absolute Lymphocytes (1.2 - 3.4 /CUMM) 0.9 L Absolute Monocytes (0.10 - 0.60 /CUMM) 0.3 Absolute Eosinophils (0.0 - 0.7 /CUMM) 0 Absolute Basophils (0.0 - 0.2 /CUMM) 0 Diagnostic Data EKG Results 05/23/2017: Sinus rhythm, abnormal T waves diffuse leads, consider ischemia. No significant change when compared to previous tracing. CXR Results 05/22/2017: The cardiac silhouette is enlarged, though stable. There are [id number] bilateral pleural effusions. There is associated airspace disease. There is stable interstitial prominence present throughout both lungs. The osseous structures are stable. Other Results CT abdomen/pelvis 05/22/2017: 1. Left lower quadrant colostomy. No evidence for obstruction. 2. Right greater than left bilateral pleural effusions. 3. Cholelithiasis without CT evidence of cholecystitis. 4. Hiatal hernia. Assessment/Plan Assessment/Plan [id number] w/ hx anxiety/depression, RA on steroid Rx, DVT on NOAC, obesity, TACO , ch anemia, HTN, LVH, AR, and diastolic dysfunction, colonic perforation following colonoscopy s/p Constance procedure September 2014 complicated by type II DC , MARVEL, bacteremia, etc. who presented to the ED on the recommendation of her primary care physician (Corrina Fortune M.D.) after blood work she ordered revealed marked anemia. GI bleed of uncertain etiology exacerbated by NOAC for DVT with endoscopy planned as per gastroenterology. Suspect troponin elevation is on the basis of a type II DC and not an acute coronary syndrome. Recommendations: * Telemetry admission, follow-up troponins, follow-up ECG. * Follow-up H&H closely and transfuse to maintain hemoglobin at or above 8.0 g/ dl, given multiple risk factors for CAD. * Continue to hold anticoagulation for the short-term and restart when cleared for resumption by GI, given history of DVT. * Endoscopy as per GI. * Continue PPI. * Mechanical DVT prophylaxis pending resumption of full anticoagulation. Further recommendations will follow, Thank you. Consult Acknowledgment - Thank you for your consult request.
[2017-05-23 22:00] VITALS: BP 156/62
[2017-05-24 06:55] VITALS: BP 162/72
--- NOTE | 2017-05-24 08:22 | PN- Housestaff ---
See Addendum Subjective Follow-up For: Acute blood loss Elevated troponin Tele-Events Since Last Visit: Sinus rhythm, PVCs, heart rate 75 Subjective: Patient was seen and examined at bedside, n.p.o. for upper GI endoscopy, endorses mild abdominal pain, there was some difficulty with changing her colostomy bag, would ask surgical PA for help. Denies any vomiting, diarrhea, constipation, fever, chills, fever, chills Review of Systems Constitutional: Reports: see HPI. Objective Last 24 Hrs of Vital Signs/I&O Vital Signs Date Time Temp Pulse Resp B/P B/P Pulse O2 O2 Flow FiO2 Mean Ox Delivery Rate 05/24 0655 98.0 75 20 162/72 95 Room Air 05/24 0000 Room Air 05/23 2200 98.1 74 18 156/62 93 Room Air 05/23 1600 Room Air 05/23 1511 Room Air 05/23 1501 74 142/84 05/23 1432 98.0 74 20 142/84 95 Room Air Intake & Output 05/24 1600 05/24 0800 05/24 0000 Intake Total 360 Output Total 100 Balance -100 360 Intake, Oral 360 Output, Urine 100 Patient 142 lb Weight Weight Bed scale Measurement Method Physical Exam General Appearance: Alert, Oriented X3, Cooperative, No Acute Distress HEENT: Atraumatic, PERRLA, EOMI, Mucous Membr. moist/pink Neck: Supple, No JVD Cardiovascular: Normal S1, Normal S2, No Murmurs Lungs: Clear to Auscultation Abdomen: Normal Bowel Sounds, Soft, No Tenderness, colostomy bag in place , skin around intact Neurological: Normal Speech, Strength at 5/5 X4 Ext, Normal Tone, Sensation Intact Extremities: No Clubbing, No Cyanosis, No Edema Vascular: Normal Pulses Assessment/Plan Assessment: 76-year-old female with past medical history of CHF, hypertension, anemia, hyperlipidemia, diverticulitis, bowel perforation status post colostomy, rheumatoid arthritis, anxiety, depression, insomnia, and vitamin D deficiency presenting for low hemoglobin. 05-24-2017 Endoscopy was done today which showed 5 cm hiatal hernia without erosions, nonspecific red spots on the second portion of the duodenum, but no active bleeding in the proximal jejunum Problem list: Acute blood loss/anemia Elevated troponin secondary to demand ischemia History of HFpEF History of HTN, bilateral pleural effusion, history of DVT, history of anemia, TACO on CPAP, anxiety, depression, rheumatoid arthritis, history of colonic perfusion s/p colostomy, hypothyroidism Plan: * Patient received 2 units PRBCs with 20 mg IV Lasix on admission. Her hemoglobin is currently 7.1 * Daily monitoring of CBCs, hemoglobin goal>8 * Give 20 mg IV Lasix * Continue prednisone, lisinopril, hydroxychloroquine, ferrous sulfate, levothyroxine, * Continue strict I&Os, currently +1000 fluid balance * DC IV Protonix, switch to p.o. omeprazole Continue oral iron * Advance diet as tolerated * Hold xarelto * She should follow an antireflux regimen. * Cardiology recommendations appreciated * GI recommendations appreciated * DVT prophylaxis: ALPS Problem List: 1. Acute blood loss anemia 2. GI bleed 3. Elevated troponin Pain Ratin Pain Location: abd Pain Goal: Pain 4 or less Pain Plan: pathway Tomorrow's Labs & Rationales: cbc bep
[2017-05-24 08:44] LABS: ABSOLUTE BASOPHIL COUNT 0 /CUMM (0.0-0.2); ABSOLUTE EOSINOPHIL COUNT 0 /CUMM (0.0-0.7); ABSOLUTE GRANULOCYTE CT 5.4 /CUMM (1.4-6.5); ABSOLUTE LYMPH COUNT 1.4 /CUMM (1.2-3.4); ABSOLUTE MONOCYTE COUNT 0.4 /CUMM (0.10-0.60); BASOPHIL % 0.6 % (0.0-2.0); EOSINOPHIL % 0 % (0-5); GRANULOCYTE % 73.9 % (42.2-75.2); HEMATOCRIT 25.8 % (37-47); MEAN CORPUSCULAR HGB 29.4 PG (27.0-31.0); MEAN CORPUSCULAR HGB CONC 33.1 G/DL (33.0-37.0); MEAN CORPUSCULAR VOLUME 88.7 FL (81.0-99.0); MEAN PLATELET VOLUME 7.9 FL (7.4-10.4); PLATELET COUNT 242 /CUMM (130-400); RBC DISTRIBUTION WIDTH 18.6 % (11.5-14.5); RED BLOOD CELL CT 2.91 /CUMM (4.20-5.40); WHITE BLOOD CELL COUNT 7.3 /CUMM (4.8-10.8)
--- NOTE | 2017-05-24 10:59 | Proc Note Endoscopy ---
Endoscopy Procedure Medical History: unchanged (see [facility] consult) Mental Status: alert/oriented Heart/Lung Eval Prior to Sedation: within normal limits Candidate for Sedation? Yes Procedure Date: 05/24/17 Procedure Type: push enteroscopy. Quality Liaison: Reinaldo Maier MD ASA Classification: IV Indications: Anemia. Instrument: diagnostic gastroscope Meds Received: MAC Patient's Tolerance: good Complications: none Extent Reached: proximal jejunum Procedure: After getting written informed consent the patient was placed in the left lateral decubitus position with pulse oximetry, cardiac monitoring, and supplemental oxygen given. A bite block was inserted and IV sedation was given until the desired effect was achieved. A high definition upper Olympus endoscope was then inserted into the mouth and advanced to the proximal jejunum with little difficulty. Retroflexed views and photodocumentation was obtained. Findings: Esophagus: The esophageal mucosa was grossly normal in appearance and there was a normal-appearing Z line at 30 cm from the incisors. The hiatal narrowing was at 35 cm from the incisors, for 5 cm sliding hiatal hernia. Stomach: The gastric mucosa was grossly normal appearance. There were no ulcers , erosions, or masses appreciated. Distention and peristalsis of the stomach appeared normal. Retroflexed views revealed a moderate size hiatal hernia without Emiliano erosions. Duodenum: The duodenal bulb sweep, and folds are grossly normal in appearance. There was a small nonspecific red spot in the second portion of the duodenum which was not actively bleeding and was not consistent in appearance with an AVM so it was not treated. Jejunum: The folds of the proximal jejunum were grossly normal in appearance and there was bile appreciated throughout to the proximal jejunum without any active bleeding appreciated. Impression: 1. 5 cm hiatal hernia without Emiliano erosions. 2. Nonspecific red spot in second portion of duodenum. 3. No active bleeding to the proximal jejunum. Recommendations: 1. Advance diet as tolerated. 2. Follow CBCs and transfuse as needed. 3. Resume oral iron supplementation. 4. Would change back to an oral PPI. 5. She should follow an antireflux regimen. 6. Consideration will be given for an outpatient small bowel plus or minus a repeat colonoscopy. 7. There are currently no absolute GI consultation indications to resuming anticoagulation is medically indicated, but this is done her hemoglobin should be followed very closely. CC: Corrina Fortune MD
[2017-05-24 15:26] VITALS: BP 136/70
--- NOTE | 2017-05-24 19:05 | PN- Cardiology ---
Subjective Subjective: The patient is seen status post endoscopy. She reports that she is feeling mostly well. No chest pain. No palpitations. No diaphoresis. No nausea or vomiting. Endoscopy revealed hiatal hernia with no other definite findings. Objective Vital Signs and I&Os Vital Signs Date Time Temp Pulse Resp B/P B/P Pulse O2 O2 Flow FiO2 Mean Ox Delivery Rate 05/24 1526 98.1 60 20 136/70 93 05/24 1214 120/64 05/24 0655 98.0 75 20 162/72 95 Room Air 05/24 0000 Room Air 05/23 2200 98.1 74 18 156/62 93 Room Air Intake & Output 05/24 1600 05/24 0800 05/24 0000 05/23 1600 05/23 0800 05/23 0000 Intake Total 400 360 221 805 4449 Output Total 100 100 Balance 300 -100 360 172 875 0120 Intake, Blood 330 Product Intake, IV 50 350 1000 Intake, Oral 400 360 Output, Stool 100 Output, Urine 100 Patient 142 lb 140 lb 140 lb Weight Weight Bed scale Reported by Patient Measurement Method Physical Exam: Chronically ill-appearing elderly female who appears spell who has nasal oxygen in place. Vital signs: See above. HEENT: Normocephalic, atraumatic, EOMI, slightly dry mucous membranes. Neck: No JVD, no bruits. Lungs: Decreased breath sounds at the bases right greater than left. Heart: S1, S2 with grade 2/6 systolic ejection type murmur best heard at the base. Abdomen: Soft, positive bowel sounds, nontender, colostomy bag in place. Extremities: No edema. Current Medications: Current Medications Sig/Rick Start time Last Medication Dose Route Stop Time Status Admin Acetaminophen 650 MG Q6PRN PRN 05/22 2130 AC 05/24 PO 1726 Albuterol Sulfate 3 ML Q4H PRN 05/22 2300 AC INH Ferrous Sulfate 325 MG DAILY 05/23 1000 AC 05/24 PO 1212 Furosemide 20 MG DAILY 05/23 1000 AC 05/24 PO 1212 Hydromorphone HCl 2 MG Q8P PRN 05/22 2230 AC 05/24 PO 0332 Hydroxychloroquine 200 MG BID 05/23 1000 AC 05/24 Sulfate PO 1213 Levothyroxine Sodium 0.025 MG DAILY AC 05/23 0700 AC 05/24 PO 1212 Lisinopril 10 MG QAM 05/23 1000 AC 05/24 PO 1214 Omeprazole 40 MG DAILY AC 05/24 1203 AC PO Pantoprazole Sodium 40 MG BID 05/22 2200 DC 05/24 IV 0927 Prednisone 10 MG QA 05/23 1000 AC 05/24 PO 1213 Sertraline HCl 25 MG QAM 05/23 1000 AC 05/24 PO 1213 Results Last 48 Hrs of Labs/Mics: Laboratory Tests 05/24/17 1800: CBC w Diff Pending, WBC Pending, RBC Pending, Hgb Pending, Hct Pending, MCV Pending, MCH Pending, MCHC Pending, RDW Pending, Plt Count Pending, MPV Pending 05/24/17 0617: Anion Gap 6, Estimated GFR 36 L, BUN/Creatinine Ratio 22.1, CBC w Diff NO MAN DIFF REQ, RBC 2.91 L, MCV 88.7, MCH 29.4, MCHC 33.1, RDW 18.6 H, MPV 7.9, Gran % 73.9, Lymphocytes % 19.5 L, Monocytes % 6.0, Eosinophils % 0, Basophils % 0.6 , Absolute Granulocytes 5.4, Absolute Lymphocytes 1.4, Absolute Monocytes 0.4, Absolute Eosinophils 0, Absolute Basophils 0 05/23/17 1515: CBC w Diff NO MAN DIFF REQ, RBC 3.10 L, MCV 89.0, MCH 29.4, MCHC 33.0, RDW 17.6 H, MPV 7.6, Gran % 62.7, Lymphocytes % 26.4, Monocytes % 7.4, Eosinophils % 2.8 , Basophils % 0.7, Absolute Granulocytes 4.5, Absolute Lymphocytes 1.9, Absolute Monocytes 0.5, Absolute Eosinophils 0.2, Absolute Basophils 0.1 05/23/17 0915: Urine Color STRAW, Urine Clarity HAZY H, Urine pH 6.0, Ur Specific [place] 1.025, Urine Protein 100 H, Urine Ketones NEG, Urine Nitrite NEG, Urine Bilirubin NEG, Urine Urobilinogen 0.2, Ur Leukocyte Esterase TRACE H, Ur Microscopic SEDIMENT EXAMINED, Urine RBC 1-3, Urine WBC 5-10 H, Ur Epithelial Cells RARE, Urine Bacteria PACKD H, Hyaline Casts 1-3 H, Granular Casts RARE H, Urine Mucus RARE, Urine Hemoglobin SMALL H, Urine Glucose NEG 05/23/17 0840: Troponin I 0.59 *H 05/23/17 0430: Anion Gap 5, Estimated GFR 40 L, BUN/Creatinine Ratio 26.2 H, CBC w Diff NO MAN DIFF REQ, RBC 2.45 L, MCV 88.3, MCH 28.8, MCHC 32.6 L, RDW 19.5 H, MPV 7.3 L, Gran % 66.6, Lymphocytes % 23.5, Monocytes % 8.0, Eosinophils % 1.2, Basophils % 0.7, Absolute Granulocytes 5.4, Absolute Lymphocytes 1.9, Absolute Monocytes 0.7 H, Absolute Eosinophils 0.1, Absolute Basophils 0.1 05/23/17 0200: Troponin I 0.63 *H 05/23/17 0200: Lactic Acid 0.7, CBC w Diff Cancelled, WBC Cancelled, RBC Cancelled, Hgb Cancelled, Hct Cancelled, MCV Cancelled, MCH Cancelled, MCHC Cancelled, RDW Cancelled, Plt Count Cancelled, MPV Cancelled 05/23/17 0042: CBC w Diff Cancelled, WBC Cancelled, RBC Cancelled, Hgb Cancelled, Hct Cancelled , MCV Cancelled, MCH Cancelled, MCHC Cancelled, RDW Cancelled, Plt Count Cancelled, MPV Cancelled Assessment/Plan Assessment/Plan Assessment: 1. Deep vein thrombosis, on and OAC 2. Hypertension 3. Obstructive sleep apnea 4. Diastolic dysfunction 5. History of type II [place] 6. Anemia Plan: * Restart Eliquis tomorrow if cleared by GI. * Continue other cardiac medications Continue telemetry? Yes
[2017-05-24 20:00] LABS: ABSOLUTE BASOPHIL COUNT 0 /CUMM (0.0-0.2); ABSOLUTE EOSINOPHIL COUNT 0 /CUMM (0.0-0.7); ABSOLUTE GRANULOCYTE CT 6.5 /CUMM (1.4-6.5); ABSOLUTE LYMPH COUNT 0.6 /CUMM (1.2-3.4); ABSOLUTE MONOCYTE COUNT 0.2 /CUMM (0.10-0.60); BASOPHIL % 0.3 % (0.0-2.0); EOSINOPHIL % 0.5 % (0-5); HEMATOCRIT 27.6 % (37-47); MEAN CORPUSCULAR HGB 28.4 PG (27.0-31.0); MEAN CORPUSCULAR HGB CONC 32.1 G/DL (33.0-37.0); MEAN CORPUSCULAR VOLUME 88.5 FL (81.0-99.0); PLATELET COUNT 258 /CUMM (130-400); RBC DISTRIBUTION WIDTH 17.8 % (11.5-14.5); RED BLOOD CELL CT 3.12 /CUMM (4.20-5.40); WHITE BLOOD CELL COUNT 7.3 /CUMM (4.8-10.8)
[2017-05-24 20:11] LABS: GRANULOCYTE % 88.7 % (42.2-75.2)
[2017-05-24 23:00] VITALS: BP 132/66
[2017-05-25 06:00] VITALS: BP 142/78
--- NOTE | 2017-05-25 08:24 | PN- Housestaff ---
Emily Stovall 05/25/17 0823: Subjective Follow-up For: Acute blood loss/anema Elevated troponin Subjective: Patient reports SOB overnight Review of Systems Constitutional: Reports: see HPI. Objective Last 24 Hrs of Vital Signs/I&O Vital Signs Date Time Temp Pulse Resp B/P B/P Pulse O2 O2 Flow FiO2 Mean Ox Delivery Rate 05/25 1455 98.9 90 14 120/70 92 Room Air / 0930 50 128/78 / 0600 97.7 71 16 142/78 94 Room Air 05/24 2300 99.1 68 20 132/66 93 / 2107 Room Air Intake & Output 05/25 1600 / 0800 05/25 0000 Intake Total 400 Output Total Balance 400 Intake, Oral 400 Patient 142 lb Weight Physical Exam General Appearance: Alert, Oriented X3, Cooperative, No Acute Distress Cardiovascular: Regular Rate, Normal S1, Normal S2, No Murmurs Lungs: Clear to Auscultation, Normal Air Movement Abdomen: R colostomy bag without fecal contents Current Medications: Current Medications Sig/Rick Start time Last Medication Dose Route Stop Time Status Admin Acetaminophen 650 MG .STK-MED ONE 05/25 0218 DC PO 05/25 0219 Acetaminophen 650 MG Q6PRN PRN 05/22 2130 AC 05/25 PO 0220 Albuterol Sulfate 3 ML Q4H PRN 05/22 2300 AC INH Docusate Sodium 100 MG DAILY NEEDED PRN 05/24 2315 AC 05/25 PO 2039 Ferrous Sulfate 325 MG DAILY 05/23 1000 AC 05/25 PO 0929 Furosemide 20 MG DAILY 05/23 1000 AC 05/25 PO 0929 Hydromorphone HCl 2 MG Q8P PRN 05/22 2230 AC / PO 1100 Hydroxychloroquine 200 MG BID 05/23 1000 AC 05/25 Sulfate PO 2039 Levothyroxine Sodium 0.025 MG DAILY AC 05/23 0700 AC 05/25 PO 0603 Lisinopril 10 MG QAM 05/23 1000 AC 05/25 PO 0930 Omeprazole 40 MG DAILY AC 05/24 1203 AC 05/25 PO 0602 Prednisone 10 MG QAM 05/23 1000 AC 05/25 PO 0930 Rivaroxaban 20 MG DAILY 05/25 1000 AC 05/25 PO 0930 Sertraline HCl 25 MG QAM 05/23 1000 AC 05/25 PO 0931 Last 24 Hrs of Lab/Rubin Results Last 24 Hrs of Labs/Mics: Laboratory Tests 05/25/17 1210: CBC w Diff NO MAN DIFF REQ, RBC 3.09 L, MCV 88.9, MCH 29.1, MCHC 32.7 L, RDW 18.4 H, MPV 8.0, Gran % 82.3 H, Lymphocytes % 12.1 L, Monocytes % 4.1, Eosinophils % 1.1, Basophils % 0.4, Absolute Granulocytes 6.6 H, Absolute Lymphocytes 1.0 L, Absolute Monocytes 0.3, Absolute Eosinophils 0.1, Absolute Basophils 0 05/25/17 0615: Anion Gap 6, Estimated GFR 36 L, BUN/Creatinine Ratio 20.0, CBC w Diff NO MAN DIFF REQ, RBC 3.06 L, MCV 88.4, MCH 28.8, MCHC 32.5 L, RDW 18.5 H, MPV 7.9, Gran % 68.4, Lymphocytes % 24.3, Monocytes % 6.4, Eosinophils % 0.5, Basophils % 0.4, Absolute Granulocytes 5.1, Absolute Lymphocytes 1.8, Absolute Monocytes 0.5 , Absolute Eosinophils 0, Absolute Basophils 0 05/24/17 2200: Troponin I 0.56 *H Assessment/Plan Assessment: 76-year-old female with past medical history of CHF, hypertension, anemia, hyperlipidemia, diverticulitis, bowel perforation status post colostomy, rheumatoid arthritis, anxiety, depression, insomnia, and vitamin D deficiency presenting for low hemoglobin. Problem list: Acute blood loss/anemia s/p 3U prbcs Elevated troponin secondary to demand ischemia History of HFpEF History of HTN, bilateral pleural effusion, history of DVT, history of anemia, TACO on CPAP, anxiety, depression, rheumatoid arthritis, history of colonic perfusion s/p colostomy, hypothyroidism Plan: * s/p 3U prbcs, goal>8, transfuse if needed * Continue prednisone, lisinopril, hydroxychloroquine, ferrous sulfate, levothyroxine, IV Protonix twice a day, lasix PO * Continue strict I&Os, currently +400 fluid balance * Serial troponin/ECG neg * Endoscopy showed 5 cm hiatal hernia without Emiliano erosions, nonspecific red spot in second portion of duodenum, without active bleeding. * Xarelto restarted * Cardiology recommendations appreciated * GI recommendations appreciated * DVT prophylaxis: ALPS Problem List: 1. Acute blood loss anemia Pain Ratin Pain Location: NA Pain Goal: Remain pain free Pain Plan: NA Tomorrow's Labs & Rationales: CBC for anemia BEP for potassium James Cortes MD 05/25/17 1324: Attending MD Review Statement Attending Statement Attending MD Statement: examined this patient, discuss w/resident/PA/TELEVISION PRESENTER, agreed w/resident/PA/TELEVISION PRESENTER, reviewed EMR data (avail), discussed with nursing, amended to note Attending Assessment/Plan: The patient was seen and discussed with house staff. H/H 8.8/27.0 today. The patient is feeling better. Colostomy bag changed. Will monitor H/H tomorrow on anticoagulation and monitor stools. Will need PT consult for mobilization. Now eating solid food.
[2017-05-25 08:50] LABS: ABSOLUTE BASOPHIL COUNT 0 /CUMM (0.0-0.2); ABSOLUTE EOSINOPHIL COUNT 0 /CUMM (0.0-0.7); ABSOLUTE GRANULOCYTE CT 5.1 /CUMM (1.4-6.5); ABSOLUTE LYMPH COUNT 1.8 /CUMM (1.2-3.4); ABSOLUTE MONOCYTE COUNT 0.5 /CUMM (0.10-0.60); BASOPHIL % 0.4 % (0.0-2.0); EOSINOPHIL % 0.5 % (0-5); GRANULOCYTE % 68.4 % (42.2-75.2); MEAN CORPUSCULAR HGB 28.8 PG (27.0-31.0); MEAN CORPUSCULAR HGB CONC 32.5 G/DL (33.0-37.0); MEAN CORPUSCULAR VOLUME 88.4 FL (81.0-99.0); MEAN PLATELET VOLUME 7.9 FL (7.4-10.4); PLATELET COUNT 246 /CUMM (130-400); RBC DISTRIBUTION WIDTH 18.5 % (11.5-14.5); RED BLOOD CELL CT 3.06 /CUMM (4.20-5.40); WHITE BLOOD CELL COUNT 7.5 /CUMM (4.8-10.8)
[2017-05-25 14:13] LABS: ABSOLUTE BASOPHIL COUNT 0 /CUMM (0.0-0.2); ABSOLUTE EOSINOPHIL COUNT 0.1 /CUMM (0.0-0.7); ABSOLUTE GRANULOCYTE CT 6.6 /CUMM (1.4-6.5); ABSOLUTE MONOCYTE COUNT 0.3 /CUMM (0.10-0.60); BASOPHIL % 0.4 % (0.0-2.0); EOSINOPHIL % 1.1 % (0-5); GRANULOCYTE % 82.3 % (42.2-75.2); HEMATOCRIT 27.4 % (37-47); MEAN CORPUSCULAR HGB 29.1 PG (27.0-31.0); MEAN CORPUSCULAR HGB CONC 32.7 G/DL (33.0-37.0); MEAN CORPUSCULAR VOLUME 88.9 FL (81.0-99.0); PLATELET COUNT 253 /CUMM (130-400); RBC DISTRIBUTION WIDTH 18.4 % (11.5-14.5); RED BLOOD CELL CT 3.09 /CUMM (4.20-5.40)
[2017-05-25 14:55] VITALS: BP 120/70
[2017-05-25 22:30] VITALS: BP 120/74
[2017-05-26 06:30] VITALS: BP 160/82
--- NOTE | 2017-05-26 07:31 | PN- Housestaff ---
Emily Stovall 05/26/17 0731: Subjective Follow-up For: Acute blood loss/anema Elevated troponin Tele-Events Since Last Visit: NS HR 69-77 Subjective: Patient reports a stomach ache. No acute events overnight. Review of Systems Constitutional: Reports: see HPI. Objective Last 24 Hrs of Vital Signs/I&O Vital Signs Date Time Temp Pulse Resp B/P B/P Pulse O2 O2 Flow FiO2 Mean Ox Delivery Rate 05/26 0630 98.7 75 18 160/82 93 / 2230 98.2 68 16 120/74 96 03/ 2143 93 Room Air / 1455 98.9 90 14 120/70 92 Room Air / 0930 50 128/78 Intake & Output 05/26 1600 05/26 0800 05/26 0000 Intake Total Output Total 200 Balance -200 Number 1 Bowel Movements Output, Urine 200 Patient 142 lb Weight Physical Exam General Appearance: Alert, Oriented X3, Cooperative Lungs: Clear to Auscultation, Normal Air Movement Abdomen: L ostomy bag with minimal dark semisolid fecal contents Extremities: No Edema Current Medications: Current Medications Sig/Rick Start time Last Medication Dose Route Stop Time Status Admin Acetaminophen 650 MG Q6PRN PRN 05/22 2130 AC 05/26 PO 0040 Albuterol Sulfate 3 ML Q4H PRN 05/22 2300 AC INH Docusate Sodium 100 MG .STK-MED ONE 05/25 2037 DC PO 05/25 2038 Docusate Sodium 100 MG DAILY NEEDED PRN 05/24 2315 AC 05/25 PO 203 Ferrous Sulfate 325 MG DAILY 05/23 1000 AC 05/25 PO 0929 Furosemide 20 MG DAILY 05/23 1000 AC 05/25 PO 0929 Hydromorphone HCl 2 MG Q8P PRN / 2230 AC / PO 2222 Hydroxychloroquine 200 MG BID 05/23 1000 AC 05/25 Sulfate PO 203 Levothyroxine Sodium 0.025 MG DAILY AC 05/23 0700 AC 05/26 PO 0611 Lisinopril 10 MG QAM 05/23 1000 AC 05/25 PO 0930 Omeprazole 40 MG DAILY AC 05/24 1203 AC 05/26 PO 0611 Prednisone 10 MG QAM 05/23 1000 AC 05/25 PO 0930 Rivaroxaban 20 MG DAILY 05/25 1000 AC 05/25 PO 0930 Sertraline HCl 25 MG QAM 05/23 1000 AC 05/25 PO 0931 Last 24 Hrs of Lab/Rubin Results Last 24 Hrs of Labs/Mics: Laboratory Tests 05/26/17 0615: Anion Gap 6, Estimated GFR 36 L, BUN/Creatinine Ratio 18.6, CBC w Diff Pending, WBC Pending, RBC Pending, Hgb Pending, Hct Pending, MCV Pending, MCH Pending, MCHC Pending, RDW Pending, Plt Count Pending, MPV Pending 05/25/17 1210: CBC w Diff NO MAN DIFF REQ, RBC 3.09 L, MCV 88.9, MCH 29.1, MCHC 32.7 L, RDW 18.4 H, MPV 8.0, Gran % 82.3 H, Lymphocytes % 12.1 L, Monocytes % 4.1, Eosinophils % 1.1, Basophils % 0.4, Absolute Granulocytes 6.6 H, Absolute Lymphocytes 1.0 L, Absolute Monocytes 0.3, Absolute Eosinophils 0.1, Absolute Basophils 0 Assessment/Plan Assessment: Ms. Corona is a 76-year-old female with past medical history of CHF, DVT on Rivaroxaban, hypertension, anemia, hyperlipidemia, diverticulitis, bowel perforation status post colostomy, rheumatoid arthritis, anxiety, depression, insomnia, and vitamin D deficiency presenting for low hemoglobin. Problem list: Acute blood loss/anemia s/p 3U prbcs Elevated troponin secondary to demand ischemia History of HFpEF History of HTN, bilateral pleural effusion, history of DVT, history of anemia, TACO on CPAP, anxiety, depression, rheumatoid arthritis, history of colonic perfusion s/p colostomy, hypothyroidism Plan: * s/p 3U prbcs, goal>8, transfuse if needed * Continue prednisone, lisinopril, hydroxychloroquine, ferrous sulfate, levothyroxine, omeprazole, lasix PO * Continue strict I&Os, total +2500 fluid balance * Serial troponin/ECG negative * Endoscopy showed 5 cm hiatal hernia without Emiliano erosions, nonspecific red spot in second portion of duodenum, without active bleeding. * Continue Rivaroxaban, we will monitor the H&H for 1 more day due to the fact patient H&H dropped significantly while on it * Cardiology recommendations appreciated * GI recommendations appreciated * Discharge to [facility] in morning * DVT prophylaxis: ALPS Problem List: 1. Acute blood loss anemia Pain Ratin Pain Location: NA Pain Goal: Remain pain free Pain Plan: NA Tomorrow's Labs & Rationales: CBC for anemia Miryam Luevano 05/26/17 1539: Attending MD Review Statement Attending Statement Attending MD Statement: examined this patient, discuss w/resident/PA/FINANCIAL AID DIRECTOR, agreed w/resident/PA/FINANCIAL AID DIRECTOR, reviewed EMR data (avail), discussed with nursing, discussed with case mgmt Attending Assessment/Plan: pt will be dced to [facility] tomorrow. Restarted on xarelto. will f/u on cbc tomorrow to make sure hb is stable. d/w pt the care plan.
[2017-05-26 08:07] LABS: ABSOLUTE BASOPHIL COUNT 0 /CUMM (0.0-0.2); ABSOLUTE EOSINOPHIL COUNT 0.1 /CUMM (0.0-0.7); ABSOLUTE GRANULOCYTE CT 5.2 /CUMM (1.4-6.5); ABSOLUTE LYMPH COUNT 2.1 /CUMM (1.2-3.4); ABSOLUTE MONOCYTE COUNT 0.6 /CUMM (0.10-0.60); BASOPHIL % 0.6 % (0.0-2.0); EOSINOPHIL % 1.2 % (0-5); GRANULOCYTE % 64.7 % (42.2-75.2); HEMATOCRIT 28.3 % (37-47); MEAN CORPUSCULAR HGB 29.3 PG (27.0-31.0); MEAN CORPUSCULAR HGB CONC 32.8 G/DL (33.0-37.0); MEAN CORPUSCULAR VOLUME 89.4 FL (81.0-99.0); MEAN PLATELET VOLUME 7.8 FL (7.4-10.4); PLATELET COUNT 252 /CUMM (130-400); RBC DISTRIBUTION WIDTH 17.8 % (11.5-14.5); RED BLOOD CELL CT 3.17 /CUMM (4.20-5.40); WHITE BLOOD CELL COUNT 8.1 /CUMM (4.8-10.8)
--- NOTE | 2017-05-26 10:45 | Patient Discharge Instructions ---
Discharge Instructions General Discharge Information You were seen/treated for: Symptomatic anemia Acute blood loss Elevated troponins You had these procedures: Endoscopy Special Instructions: Follow up with the [facility] within 1 week after discharge and an appointment for an outpatient colonoscopy if warranted. Follow up with the [facility] within 1 week after discharge Follow up with your PCP within 1 week after discharge and have your labs repeated at that time Diet Continue normal diet: Yes Activity Other activity limits: As tolerated Acute Coronary Syndrome Inclusion Criteria At DC or during hospital stay patient has or had the following: ACS DIAGNOSIS No Discharge Core Measures Meds if any: Prescribed or Continued at Discharge Meds if any: NOT Prescribed or Continued at Discharge Congestive Heart Failure Inclusion Criteria At DC or during hospital stay patient has or had the following: CHF DIAGNOSIS No Discharge Core Measures Meds if any: Prescribed or Continued at Discharge Meds if any: NOT Prescribed or Continued at Discharge Cerebrovascular accident Inclusion Criteria At DC or during hospital stay patient has or had the following: CVA/TIA Diagnosis No Discharge Core Measures Meds if any: Prescribed or Continued at Discharge Meds if any: NOT Prescribed or Continued at Discharge Venous thromboembolism Inclusion Criteria VTE Diagnosis No VTE Type NONE VTE Confirmed by (Test) NONE Discharge Core Measures - Per Current guidelines, there needs to be overlap - treatment for the first 5 days of Warfarin therapy. - If discharged on Warfarin prior to 5 days of - overlap therapy, the patient will need to be - assessed for post discharge needs including - *Post discharge parental anticoagulation - *Warfarin and/or parental anticoagulation education - *Follow up date to check INR post discharge At least 5 days overlap therapy as Inpatient No Meds if any: Prescribed or Continued at Discharge Note: Overlap Therapy is Warfarin and Anticoagulant Meds if any: NOT Prescribed or Continued at Discharge
--- NOTE | 2017-05-26 11:52 | Discharge Summary ---
Visit Information Visit Dates Admission Date: 05/22/17 Discharge Date: 05/29/2017 Hospital Course Course Attending Physician: Bassem CURTIS,Miryam Hewitt Primary Care Physician: Tong CURTIS,[facility] Hospital Course: Patient is a 76 year old female with multiple medical problem was sent by her primary care physician for low hemoglobin. ED course - Vitals: Afebrile, temperature 96.5, pulse 80s, RR 20, blood pressure 139/67, saturating well on room air. On exam: A O 3, cooperative, no acute distress, neck supple, JVD normal, no lymphadenopathy, mucosa dry , no focal neurological deficit, significant pedal edema, no obvious skin rashes or inflammation CVS: S1-S2, RRR. RS: Clear to auscultate bilaterally. Abdomen: Soft, NT, ND, bowel sounds present. EKG revealed left anterior for split block, normal sinus rhythm, no ST-T wave inversions, QTC 434. CT abdomen and pelvis without IV contrast -left lower quadrant colostomy. No evidence for obstruction.Right greater than left bilateral pleural effusions. Cholelithiasis without CT evidence of cholecystitis. Hiatal hernia. Severe anemia secondary to GI bleed iron deficiency anemia; no evidence of upper GI bleed need evaluation of lower GI tract - At the time of admission patient hemoglobin was 4.4, she was given 3 units of blood transfusion. GI consult was obtained advised to upper GI endoscopy. It showed 5 cm hiatal hernia without Emiliano erosions, nonspecific red spot in second portion of duodenum,no active bleeding to the proximal jejunum.He advised to continue oral PPI, regular monitoring of hemoglobin, and small bowel plus minus repeat colonoscopy as an outpatient.He also advised to restart patient on anticoagulation.We regularly monitored the patient's hemoglobin.Her hemoglobin was remained stable for 72 hours (8.8, 9.0, 9.3).We discharged her with follow- up with assistant chief of police as an outpatient. type II TN- Patient's troponins were 0.66, 0.63, 0.59.We obtained cardiology consult.Advised for conservative management. Nonspecific abdominal pain - We did CT abdomen and pelvis which didnt show any evidence of obstruction.HIDA scan was showing patent cystic duct,CBD,normal GB emptying and EF - strong evidence against the diagnosis of acute cholecystitis. We treated symptomatically with as needed pain medication. Patient is advised to get blood work up within 3 days, watch for bleeding. Patient was also advised to follow-up with the GI for further evaluation for cause of anemia. Allergies: Coded Allergies: Penicillins (SWELLING, RASH, ITCH 05/22/17) aspirin (RASH 05/22/17) cephalexin (From KEFLEX) (ITCHY 05/22/17) codeine (ITCH 05/22/17) levofloxacin (From LEVAQUIN) (RASH 05/22/17) oxaprozin (From DAYPRO) (RASH 05/22/17) propoxyphene (UNKNOWN REACTION TO DARVOCET 05/22/17) Disposition Summary Disposition Principal Diagnosis: Severe Anemia secondary to GI bleed, needed blood transfusion, upper GI endoscopy doesnt show active bleeding lesion, discharged on Xarelto Additional Diagnosis: Hypertension HFpEF, B ilateral pleural effusion, history of DVT, History of anemia, TACO on CPAP, Anxiety, Depression, Rheumatoid arthritis, History of colonic perfusion s/p colostomy, Hypothyroidism Cholelithiasis without CT evidence of cholecystitis Hiatal hernia. Discharge Disposition: SNF Discharge Instructions General Discharge Information Code Status: Do Not Resucitate/Intubat Patient's Diet: Heart healthy diet Patient's Activity: As tolerated, take on fall precautions Follow-Up Instructions/Appts: Please follow-up with your PCP within a week of discharge Please check the hemoglobin within 3 days and discuss it with your PCP. Please take the medication as advised Medications at Discharge Discharge Medications: Continue taking these medications: Levothyroxine Sodium (Levothyroxine Sodium) 25 MCG TABLET 1 Tablet ORAL DAILY BEFORE BREAKFAST Qty = 30 Comments: Last Taken:05/29/17 Time:614 Hydroxychloroquine Sulfate (Hydroxychloroquine Sulfate) 200 MG TABLET 1 Tablet ORAL TWICE DAILY Qty = 30 Comments: Last Taken:05/29/17 Time:825 Lisinopril (Lisinopril) 10 MG TABLET 1 Tablet ORAL Every Morning Qty = 30 Comments: Last Taken:05/29/17 Time:825 Sertraline HCl (Sertraline HCl) 25 MG TABLET 1 Tablet ORAL Every Morning Qty = 30 Comments: Last Taken:05/29/17 Time:825 Prednisone (Prednisone) 10 MG TABLET 1 Tablet ORAL Every Morning Qty = 30 Comments: Last Taken:05/29/17 Time:825 Carvedilol (Carvedilol) 25 MG TABLET 1 Tablet ORAL TWICE DAILY Qty = 60 Comments: NOT GIVEN Ergocalciferol (Vitamin D2) (Vitamin D2) 50,000 UNIT CAPSULE 1 Capsule ORAL EVERY FRIDAY Qty = 12 Comments: NOT GIVEN Calcium Carbonate/Vitamin D3 (Os-Mehdi 500+D3 Caplet) 500 MG-200 TABLET 1 Tablet ORAL DAILY Comments: NOT GIVEN Sennosides/Docusate Sodium (Senna Plus Tablet) 8.6 MG-50 MG TABLET 1 Tablet ORAL DAILY NEEDED as needed for CONSTIPATION Qty = 30 Instructions: . Comments: Last Taken:05/28/17 Time:2053 Rivaroxaban (Xarelto) 20 MG TABLET 1 Tablet ORAL 0900 Qty = 10 Instructions: with food Comments: Last Taken:05/29/17 Time:0825 Ferrous Gluconate (Ferrous Gluconate) (Unknown Strength) TABLET Unknown Dose ORAL DAILY Comments: 325 MG LAST GIVEN 05/29/17 0826 Hydromorphone HCl (Dilaudid) 4 MG TABLET 0.5-1 Tablet ORAL EVERY 8 HOURS NEEDED as needed for PAIN Comments: Last Taken:05/29/17 Time:1123 Omeprazole (Omeprazole) 20 MG TABLET.DR 1 Tablet ORAL DAILY Comments: Last Taken:05/29/17 Time:0615 Furosemide (Lasix) 20 MG TABLET 1 Tablet ORAL DAILY Comments: Last Taken:05/29/17 Time:0826 Potassium Chloride (Klor-Con 10) (Unknown Strength) TABLET.ER Unknown Dose ORAL DAILY Comments: NOT GIVEN Copies To: Tong CURTIS,Aditi Maier MD,Reinaldo Webster MD Review Statement Documenting Attending: Miryam Luevano MD Other Findings: Agree with the above dc plan. D/w pt the care plan. Please see the progress note from dc date for more details.
[2017-05-26 14:09] VITALS: BP 158/64
[2017-05-26 22:03] VITALS: BP 124/60
[2017-05-27 06:00] VITALS: BP 172/80
[2017-05-27 07:56] LABS: ABSOLUTE BASOPHIL COUNT 0.1 /CUMM (0.0-0.2); ABSOLUTE EOSINOPHIL COUNT 0.1 /CUMM (0.0-0.7); ABSOLUTE GRANULOCYTE CT 6.2 /CUMM (1.4-6.5); ABSOLUTE LYMPH COUNT 1.8 /CUMM (1.2-3.4); ABSOLUTE MONOCYTE COUNT 0.6 /CUMM (0.10-0.60); BASOPHIL % 0.6 % (0.0-2.0); EOSINOPHIL % 1.1 % (0-5); GRANULOCYTE % 70.6 % (42.2-75.2); HEMATOCRIT 30.4 % (37-47); MEAN CORPUSCULAR HGB CONC 32.6 G/DL (33.0-37.0); MEAN CORPUSCULAR VOLUME 89.1 FL (81.0-99.0); MEAN PLATELET VOLUME 7.4 FL (7.4-10.4); PLATELET COUNT 261 /CUMM (130-400); RBC DISTRIBUTION WIDTH 17.9 % (11.5-14.5); RED BLOOD CELL CT 3.41 /CUMM (4.20-5.40); WHITE BLOOD CELL COUNT 8.8 /CUMM (4.8-10.8)
--- NOTE | 2017-05-27 07:56 | PN- Housestaff ---
See Addendum Subjective Follow-up For: Acute blood loss/anemia Elevated troponin Subjective: Patient reports epigastric abdominal discomfort and chest tightness acompanied by SOB Review of Systems Constitutional: Reports: see HPI. Objective Last 24 Hrs of Vital Signs/I&O Vital Signs Date Time Temp Pulse Resp B/P B/P Pulse O2 O2 Flow FiO2 Mean Ox Delivery Rate 05/27 0940 82 174/70 94 Room Air 05/27 0800 Room Air 05/27 06 97.5 95 22 172/80 92 05/26 2203 97.0 74 20 124/60 91 05/26 1409 98.2 75 20 158/64 95 Room Air 05/26 1216 Room Air Room Air Intake & Output 05/27 1600 05/27 0800 05/27 0000 Intake Total 220 400 Output Total 1 Balance 220 399 Intake, IV 20 Intake, Oral 200 400 Output, Stool 1 Patient 148 lb Weight Physical Exam General Appearance: Alert, Oriented X3, Cooperative, No Acute Distress Cardiovascular: Regular Rate, Normal S1, Normal S2, No Murmurs Lungs: Clear to Auscultation, Normal Air Movement Abdomen: L ostomy bag without fecal contents Current Medications: Current Medications Sig/Rick Start time Last Medication Dose Route Stop Time Status Admin Acetaminophen 650 MG .STK-MED ONE 05/27 0330 DC PO 05/27 0331 Acetaminophen 650 MG Q6PRN PRN 05/22 2130 AC 05/26 PO 0040 Albuterol Sulfate 3 ML Q4H PRN 05/22 2300 AC INH Docusate Sodium 100 MG DAILY NEEDED PRN 05/24 2315 AC 05/26 PO 0842 Ferrous Sulfate 325 MG DAILY 05/23 1000 AC 05/26 PO 0843 Furosemide 20 MG DAILY 05/23 1000 AC 05/26 PO 0842 Hydromorphone HCl 2 MG Q8P PRN 05/22 2230 AC 05/27 PO 0954 Hydroxychloroquine 200 MG BID 05/23 1000 AC 05/26 Sulfate PO 2158 Levothyroxine Sodium 0.025 MG DAILY AC 05/23 0700 AC 05/26 PO 0611 Lisinopril 10 MG QAM 05/23 1000 AC 05/26 PO 0843 Omeprazole 40 MG DAILY AC 05/24 1203 AC 05/27 PO 0647 Patient Medication 1 ED ONE ONE 05/26 1415 DC 05/27 Teaching ED 05/26 1416 0649 Prednisone 10 MG QAM 05/23 1000 AC 05/26 PO 0843 Rivaroxaban 20 MG DAILY 05/25 1000 AC 05/26 PO 0843 Sertraline HCl 25 MG QAM 05/23 1000 AC 05/26 PO 0843 Trimethobenzamide HCl 200 MG ONCE ONE 05/27 0400 DC 05/27 IM 05/27 0401 0402 Last 24 Hrs of Lab/Rubin Results Last 24 Hrs of Labs/Mics: Laboratory Tests 05/27/17 0920: Troponin I 0.55 *H 05/27/17 0633: CBC w Diff NO MAN DIFF REQ, RBC 3.41 L, MCV 89.1, MCH 29.0, MCHC 32.6 L, RDW 17.9 H, MPV 7.4, Gran % 70.6, Lymphocytes % 20.9, Monocytes % 6.8, Eosinophils % 1.1, Basophils % 0.6, Absolute Granulocytes 6.2, Absolute Lymphocytes 1.8, Absolute Monocytes 0.6, Absolute Eosinophils 0.1, Absolute Basophils 0.1 Assessment/Plan Assessment: Ms. Corona is a 76-year-old female with past medical history of CHF, DVT on Rivaroxaban, hypertension, anemia, hyperlipidemia, diverticulitis, bowel perforation status post colostomy, rheumatoid arthritis, anxiety, depression, insomnia, and vitamin D deficiency presenting for low hemoglobin. Problem list: Acute blood loss/anemia s/p 3U prbcs Elevated troponin secondary to demand ischemia History of HFpEF History of HTN, bilateral pleural effusion, history of DVT, history of anemia, TACO on CPAP, anxiety, depression, rheumatoid arthritis, history of colonic perfusion s/p colostomy, hypothyroidism Plan: * s/p 3U prbcs, goal>8, transfuse if needed * Continue prednisone, lisinopril, hydroxychloroquine, ferrous sulfate, levothyroxine, omeprazole, lasix * Continue strict I&Os, total +3L fluid balance * Serial troponin/ECG negative * Endoscopy showed 5 cm hiatal hernia without Emiliano erosions, nonspecific red spot in second portion of duodenum, without active bleeding. * Continue Rivaroxaban * Cardiology recommendations appreciated * GI recommendations appreciated * Stat TROP for chest tightness and SOB today was trending down from patient's previous troponin. ECG show no signs of ST/T wave changes * DVT prophylaxis: ALPS Problem List: 1. Elevated troponin 2. Acute blood loss anemia Pain Ratin Pain Location: Epigastric Pain Goal: Pain 4 or less Pain Plan: Dilaudid Tomorrow's Labs & Rationales: None
[2017-05-27 09:40] VITALS: BP 174/70
[2017-05-27 14:11] VITALS: BP 150/70
--- NOTE | 2017-05-27 19:40 | PN- Cardiology ---
Subjective Subjective: Complained of abdominal/lower chest discomfort earlier. Objective Vital Signs and I&Os Vital Signs Date Time Temp Pulse Resp B/P B/P Pulse O2 O2 Flow FiO2 Mean Ox Delivery Rate 05/27 1411 98.4 79 20 150/70 94 Room Air / 1206 82 174/70 / 0940 82 174/70 94 Room Air / 0800 Room Air 05/27 0600 97.5 95 22 172/80 92 / 2203 97.0 74 20 124/60 91 Intake & Output 05/27 1600 05/27 0800 05/27 0000 05/26 1600 05/26 0800 05/26 0000 Intake Total 500 220 400 500 Output Total 1 350 200 Balance 500 220 399 150 -200 Intake, IV 20 20 Intake, Oral 480 200 400 500 Number 1 1 Bowel Movements Output, Stool 1 Output, Urine 350 200 Patient 148 lb 142 lb Weight Physical Exam: Chronically ill-appearing elderly female who appears pale and who has nasal oxygen in place. Vital signs: See above. HEENT: Normocephalic, atraumatic, EOMI, slightly dry mucous membranes. Neck: No JVD, no bruits. Lungs: Decreased breath sounds at the bases right greater than left. Heart: S1, S2 with grade 1-2/6 systolic ejection type murmur best heard at the base. Abdomen: Soft, positive bowel sounds, nontender, colostomy bag in place. Extremities: No edema. Assessment/Plan Assessment/Plan [id number] w/ hx anxiety/depression, RA on steroid Rx, DVT on NOAC, obesity, TACO , ch anemia, HTN, LVH, AR, and diastolic dysfunction, colonic perforation following colonoscopy s/p Constance procedure September 2014 complicated by type II MN , MARVEL, bacteremia, etc. who presented to the ED on the recommendation of her primary care physician (Corrina Fortune M.D.) after blood work she ordered revealed marked anemia. GI bleed of uncertain etiology exacerbated by NOAC for DVT s/p endoscopy 2017 without obvious source for bleed. PillCam planned as per gastroenterology. Suspect troponin elevation is on the basis of a type II MN and not an acute coronary syndrome. Continue telemetry? Yes
[2017-05-27 21:01] VITALS: BP 170/82
[2017-05-28] VITALS (7 sets, daily range): BP systolic 122–221; BP diastolic 60–82
--- NOTE | 2017-05-28 07:36 | PN- Housestaff ---
See Addendum Subjective Follow-up For: Acute blood loss/anemia Elevated troponin Subjective: Patient reports persistent abdominal discomfort. Patient's BP persistently elevated overnight most likely to due discomfort. Review of Systems Constitutional: Reports: see HPI. Objective Last 24 Hrs of Vital Signs/I&O Vital Signs Date Time Temp Pulse Resp B/P B/P Pulse O2 O2 Flow FiO2 Mean Ox Delivery Rate 05/28 0716 192/76 / 0709 98.6 74 18 220/78 94 / 0558 81 221/78 / 0532 74 200/88 / 2113 94 Room Air / 2101 98.0 71 18 170/82 95 Room Air / 1411 98.4 79 20 150/70 94 Room Air / 1206 82 174/70 05/27 0940 82 174/70 94 Room Air / 0800 Room Air Intake & Output 05/28 0800 05/28 0000 05/27 1600 Intake Total 500 Output Total Balance 500 Intake, IV 20 Intake, Oral 480 Number 1 Bowel Movements Patient 141 lb Weight Weight Bed scale Measurement Method Physical Exam General Appearance: Alert, Oriented X3, Anxious Cardiovascular: Regular Rate, Normal S1, Normal S2, No Murmurs Lungs: Clear to Auscultation, Normal Air Movement Abdomen: L ostomy bag filled with solid formed stools Current Medications: Current Medications Sig/Rick Start time Last Medication Dose Route Stop Time Status Admin Acetaminophen 1,000 MG ONCE ONE 05/28 614 DC 05/28 N/A 1 UNIT IV 05/28 06 0645 Acetaminophen 650 MG .STK-MED ONE 05/28 2107 DC PO 05/27 210 Acetaminophen 650 MG .STK-MED ONE 05/27 1456 DC PO 05/27 1457 Acetaminophen 650 MG Q6PRN PRN 05/22 2130 AC 05/27 PO 2109 Albuterol Sulfate 3 ML Q4H PRN 05/22 2300 AC INH Docusate Sodium 100 MG .STK-MED ONE 05/27 1456 DC PO 05/27 1457 Docusate Sodium 100 MG DAILY NEEDED PRN 05/24 2315 AC 05/27 PO 1457 Ferrous Sulfate 325 MG DAILY 05/23 1000 AC 05/27 PO 1205 Furosemide 20 MG DAILY 05/23 1000 AC 05/27 PO 1205 Hydralazine HCl 2.5 MG ONCE ONE 05/28 0815 UNVr IV 05/28 0816 Hydralazine HCl 5 MG ONCE ONE 05/28 0530 DC 05/28 IV 05/28 0531 0532 Hydromorphone HCl 2 MG Q8P PRN 05/22 2230 AC 05/28 PO 0816 Hydroxychloroquine 200 MG BID 05/23 1000 AC 05/27 Sulfate PO 2058 Levothyroxine Sodium 0.025 MG DAILY AC 05/23 0700 AC 05/28 PO 0752 Lisinopril 10 MG QAM 05/23 1000 AC 05/28 PO 0751 Omeprazole 40 MG DAILY AC 05/24 1203 AC 05/28 PO 0751 Patient Medication 1 ED ONE ONE 05/27 1515 DC 05/28 Teaching ED 05/27 1516 0725 Prednisone 10 MG QAM 05/23 1000 AC 05/27 PO 1205 Rivaroxaban 20 MG DAILY 05/25 1000 AC 05/27 PO 1206 Sertraline HCl 25 MG QAM 05/23 1000 AC 05/27 PO 1206 Tramadol HCl 50 MG ONCE ONE 05/28 0245 DC PO 05/28 0246 Trimethobenzamide HCl 200 MG ONCE ONE 05/27 2345 DC IM 05/27 2346 Last 24 Hrs of Lab/Rubin Results Last 24 Hrs of Labs/Mics: Laboratory Tests 05/27/17 0920: Troponin I 0.55 *H Assessment/Plan Assessment: Ms. Corona is a 76-year-old female with past medical history of CHF, DVT on Rivaroxaban, hypertension, anemia, hyperlipidemia, diverticulitis, bowel perforation status post colostomy, rheumatoid arthritis, anxiety, depression, insomnia, and vitamin D deficiency presenting for low hemoglobin. Problem list: Acute blood loss/anemia s/p 3U prbcs Elevated troponin secondary to demand ischemia History of HFpEF History of HTN, bilateral pleural effusion, history of DVT, history of anemia, TACO on CPAP, anxiety, depression, rheumatoid arthritis, history of colonic perfusion s/p colostomy, hypothyroidism Plan: * s/p 3U prbcs, goal>8, transfuse if needed * Continue prednisone, lisinopril, hydroxychloroquine, ferrous sulfate, levothyroxine, omeprazole, lasix * Serial troponin/ECG negative * Endoscopy showed 5 cm hiatal hernia without Emiliano erosions, nonspecific red spot in second portion of duodenum, without active bleeding. * Continue Rivaroxaban * Cardiology recommendations appreciated * GI recommendations appreciated * 05/27: Stat TROP for chest tightness and SOB today was trending down from patient's previous troponin. ECG show no signs of ST/T wave changes * HIDA scan for abdominal discomfort negative * DVT prophylaxis: ALPS Problem List: 1. Elevated troponin 2. Acute blood loss anemia Pain Ratin Pain Location: Epigastric Pain Goal: Pain 4 or less Pain Plan: Dilaudid Tomorrow's Labs & Rationales: None
--- NOTE | 2017-05-28 13:25 | NUCLEAR MEDICINE REPORT ---
EXAMINATION: BILIARY TRACT IMAGING STUDY CLINICAL INFORMATION: Acute cholecystitis. Abdominal pain.. COMPARISON: None. TECHNIQUE: Serial gamma scintillation camera images were obtained over the abdomen for a total observation period of 120 minutes following the intravenous administration of 4.8 mCi Tc-99m Choletec. FINDINGS: There is good concentration of activity in the liver by 5 minutes post injection. Biliary activity is visualized by 8 minutes. The gallbladder is well visualized by 15 minutes. Small bowel is well visualized by 110 minutes. At the end of the study there is good clearance of activity from the liver. IMPRESSION: Visualization of the gallbladder is evidence of a patent cystic duct and strong evidence against the diagnosis of acute cholecystitis. The common bile duct is patent. Gallbladder emptying and ejection fraction are normal. Liver function appears normal.
--- NOTE | 2017-05-29 07:23 | PN- Housestaff ---
See Addendum Subjective Follow-up For: Acute blood loss/anemia Elevated troponin Chronic Abdominal pain Tele-Events Since Last Visit: NS HR 68-71 Subjective: Patient reports HENLEY this morning and abdominal discomfort Review of Systems Constitutional: Reports: see HPI. Objective Last 24 Hrs of Vital Signs/I&O Vital Signs Date Time Temp Pulse Resp B/P B/P Pulse O2 O2 Flow FiO2 Mean Ox Delivery Rate 05/29 0826 74 140/82 / 0739 97.9 74 16 140/82 93 Room Air 05/28 2300 97.6 70 18 122/74 92 / 1442 98.3 74 18 138/82 91 Room Air Intake & Output 05/29 1600 05/29 0800 05/29 0000 Intake Total 110 200 Output Total Balance 110 200 Intake, IV 10 Intake, Oral 100 200 Patient 138 lb Weight Physical Exam General Appearance: Alert, Oriented X3, Cooperative Cardiovascular: Regular Rate, Normal S1, Normal S2, No Murmurs Lungs: Clear to Auscultation, Normal Air Movement Abdomen: Mid-abdominal pain without tenderness. L ostomy bag intact Current Medications: Current Medications Sig/Rick Start time Last Medication Dose Route Stop Time Status Admin Acetaminophen 650 MG Q6PRN PRN 05/22 2130 AC 05/29 PO 0825 Albuterol Sulfate 3 ML Q4H PRN 05/22 2300 AC INH Docusate Sodium 100 MG DAILY NEEDED PRN 05/24 2315 AC 05/27 PO 1457 Ferrous Sulfate 325 MG DAILY 05/23 1000 AC 05/29 PO 0826 Furosemide 20 MG DAILY 05/23 1000 AC 05/29 PO 0826 Hydralazine HCl 2.5 MG ONCE ONE 05/28 0815 CAN IV 05/28 0816 Hydromorphone HCl 2 MG Q8P PRN 05/22 2230 AC 05/29 PO 0129 Hydroxychloroquine 200 MG BID 05/23 1000 AC 05/29 Sulfate PO 0826 Levothyroxine Sodium 0.025 MG DAILY AC 05/23 0700 AC 05/29 PO 0615 Lisinopril 10 MG QAM 05/23 1000 AC 05/29 PO 0826 Lorazepam 0.5 MG ONCE ONE 05/28 1115 DC 05/28 IV 05/28 1116 1130 Omeprazole 40 MG DAILY AC 05/24 1203 AC 05/29 PO 0615 Prednisone 10 MG QAM 05/23 1000 AC 05/29 PO 0826 Rivaroxaban 20 MG DAILY 05/25 1000 AC 05/29 PO 08 Senna 187 MG AT BEDTIME 05/28 2200 AC 05/28 PO 2053 Sertraline HCl 25 MG QAM 05/23 1000 AC 05/29 PO 08 Simethicone 80 MG Q6P PRN 05/28 1330 AC PO Last 24 Hrs of Lab/Rubin Results Last 24 Hrs of Labs/Mics: Laboratory Tests 05/29/17 08: CBC w Diff Pending, WBC Pending, RBC Pending, Hgb Pending, Hct Pending, MCV Pending, MCH Pending, MCHC Pending, RDW Pending, Plt Count Pending, MPV Pending Assessment/Plan Assessment: Ms. Corona is a 76-year-old female with past medical history of CHF, DVT on Rivaroxaban, hypertension, anemia, hyperlipidemia, diverticulitis, bowel perforation status post colostomy, rheumatoid arthritis, anxiety, depression, insomnia, and vitamin D deficiency presenting for low hemoglobin. Problem list: Acute blood loss/anemia s/p 3U prbcs Elevated troponin secondary to demand ischemia History of HFpEF History of HTN, bilateral pleural effusion, history of DVT, history of anemia, TACO on CPAP, anxiety, depression, rheumatoid arthritis, history of colonic perfusion s/p colostomy, hypothyroidism Plan: * s/p 3U prbcs, goal>8, transfuse if needed * Continue prednisone, lisinopril, hydroxychloroquine, ferrous sulfate, levothyroxine, omeprazole, lasix * Serial troponin/ECG negative * Endoscopy showed 5 cm hiatal hernia without Emiliano erosions, nonspecific red spot in second portion of duodenum, without active bleeding. * CT ABD/PEL showed Cholelithiasis and no evidence for obstruction. * Continue Rivaroxaban * Cardiology recommendations appreciated * GI recommendations appreciated * 05/27: Stat TROP for chest tightness and SOB today was trending down from patient's previous troponin. ECG show no signs of ST/T wave changes * HIDA scan for abdominal discomfort negative * DVT prophylaxis: ALPS Problem List: 1. Elevated troponin 2. Acute blood loss anemia Pain Ratin Pain Location: Mid-abdomen Pain Goal: Pain 4 or less Pain Plan: Dilaudid, Acetaminophen Tomorrow's Labs & Rationales: None
[2017-05-29 07:39] VITALS: BP 140/82
[2017-05-29 08:26] VITALS: BP 140/82
[2017-05-29 09:10] LABS: ABSOLUTE BASOPHIL COUNT 0 /CUMM (0.0-0.2); ABSOLUTE EOSINOPHIL COUNT 0 /CUMM (0.0-0.7); ABSOLUTE GRANULOCYTE CT 6.8 /CUMM (1.4-6.5); ABSOLUTE LYMPH COUNT 1.5 /CUMM (1.2-3.4); ABSOLUTE MONOCYTE COUNT 0.4 /CUMM (0.10-0.60); BASOPHIL % 0.4 % (0.0-2.0); EOSINOPHIL % 0 % (0-5); GRANULOCYTE % 77.8 % (42.2-75.2); HEMATOCRIT 32.3 % (37-47); MEAN CORPUSCULAR HGB CONC 32.5 G/DL (33.0-37.0); MEAN CORPUSCULAR VOLUME 89.2 FL (81.0-99.0); PLATELET COUNT 226 /CUMM (130-400); RBC DISTRIBUTION WIDTH 17.5 % (11.5-14.5); RED BLOOD CELL CT 3.62 /CUMM (4.20-5.40); WHITE BLOOD CELL COUNT 8.7 /CUMM (4.8-10.8)
== END 2017-05-29 13:50 | DRG 377 ==
LOC: DELPENDDIS → ERH 16:32 → ERHI 19:09 → 1NO 19:09 → ENRESERV 19:50 → ENTRNSPT 21:40 → EDTRNSPTSTS 21:56 → 1NO 22:13 → CMPTRNSPT 22:14 → 1NO 05-23 08:18 → ENPENDDIS 05-27 12:03 → 1NO 05-29 13:50
PROVIDERS: Emergency Medicine; Internal Medicine Adolescent Medicine; Physician Assistant; Student in an Organized Health Care Education/Training Program
PROC: 30233N1 Transfusion of Nonautologous Red Blood Cells into Peripheral Vein, Percutaneous Approach (ICD-10-PCS; principal; 2017-05-22)
DX: K92.2 Gastrointestinal hemorrhage, unspecified (principal); I21.A1 Myocardial infarction type 2; J90 Pleural effusion, not elsewhere classified; I13.0 Hypertensive heart and chronic kidney disease with heart failure and stage 1 through stage 4 chronic kidney disease, or unspecified chronic kidney disease; I50.32 Chronic diastolic (congestive) heart failure; I82.509 Chronic embolism and thrombosis of unspecified deep veins of unspecified lower extremity; D62 Acute posthemorrhagic anemia; N18.9 Chronic kidney disease, unspecified; E66.9 Obesity, unspecified; Z68.28 Body mass index [BMI] 28.0-28.9, adult; E78.5 Hyperlipidemia, unspecified; M06.9 Rheumatoid arthritis, unspecified; F41.9 Anxiety disorder, unspecified; F32.9 Major depressive disorder, single episode, unspecified; E55.9 Vitamin D deficiency, unspecified; G47.00 Insomnia, unspecified; Z93.3 Colostomy status; Z88.1 Allergy status to other antibiotic agents; Z88.5 Allergy status to narcotic agent; Z88.0 Allergy status to penicillin; Z88.8 Allergy status to other drugs, medicaments and biological substances; K64.9 Unspecified hemorrhoids; H26.9 Unspecified cataract; Z90.49 Acquired absence of other specified parts of digestive tract; Z90.710 Acquired absence of both cervix and uterus; G43.909 Migraine, unspecified, not intractable, without status migrainosus; Z66 Do not resuscitate; J44.9 Chronic obstructive pulmonary disease, unspecified; R79.89 Other specified abnormal findings of blood chemistry; G47.33 Obstructive sleep apnea (adult) (pediatric); E03.9 Hypothyroidism, unspecified; I35.1 Nonrheumatic aortic (valve) insufficiency; Z79.01 Long term (current) use of anticoagulants; Z87.891 Personal history of nicotine dependence; K44.9 Diaphragmatic hernia without obstruction or gangrene; I25.2 Old myocardial infarction
CPT/HCPCS: 1NSP; 36415; 36592; 71046; 74176; 78226; 81001; 82436; 86920; 87086; 93005; 93010; 96374; 96375; 97110-GO; 97116-GO; 97161-GP; 97530-GO; 99291; A9537; J0131; J0360; J1170; J1940; J2060; J2405; J3250; J3490; J7512; P9016

== ENCOUNTER 2017-06-23 14:25 | Inpatient (IN) | payer OTHER, MEDICARE ==
[~2017-06-23] VITALS: Ht 142.2 cm; Wt 70.4 kg
[2017-06-23 12:06] LABS: ABSOLUTE BASOPHIL COUNT 0 /CUMM (0.0-0.2); ABSOLUTE EOSINOPHIL COUNT 0 /CUMM (0.0-0.7); ABSOLUTE GRANULOCYTE CT 5.2 /CUMM (1.4-6.5); ABSOLUTE LYMPH COUNT 1.6 /CUMM (1.2-3.4); ABSOLUTE MONOCYTE COUNT 0.3 /CUMM (0.10-0.60); BASOPHIL % 0.3 % (0.0-2.0); EOSINOPHIL % 0 % (0-5); GRANULOCYTE % 72.6 % (42.2-75.2); MEAN CORPUSCULAR HGB 29.7 PG (27.0-31.0); MEAN CORPUSCULAR HGB CONC 33.2 G/DL (33.0-37.0); MEAN CORPUSCULAR VOLUME 89.4 FL (81.0-99.0); MEAN PLATELET VOLUME 9.7 FL (7.4-10.4); PLATELET COUNT 177 /CUMM (130-400); RBC DISTRIBUTION WIDTH 16.3 % (11.5-14.5); RED BLOOD CELL CT 2.29 /CUMM (4.20-5.40); WHITE BLOOD CELL COUNT 7.1 /CUMM (4.8-10.8)
[2017-06-23 12:25] LABS: HEMATOCRIT 20.5 % (37-47)
[~2017-06-23 14:25] MED LIST changes: +DILAUDID4 M1 PO; +DOCUSATE SODIU100 M3 PO; +FERROUS GLUCON324 M2 PO; +KLOR-CON 1010 ME1 PO; +LASIX20 M1 PO; +OMEPRAZOLE20 M3 PO; +XARELTO20 M2 PO
--- NOTE | 2017-06-23 15:49 | ED GENERAL ADULT ---
History of Present Illness General Chief Complaint: General Adult Stated Complaint: SENT IN FOR ABNORMAL LABS Source: patient, old records Exam Limitations: no limitations Vital Signs & Intake/Output Vital Signs & Intake/Output Vital Signs Date Time Temp Pulse Resp B/P B/P Pulse O2 O2 Flow FiO2 Mean Ox Delivery Rate 06/25 1405 98.3 58 20 120/60 95 Room Air /04 0933 120/70 06/25 0636 97.2 52 20 120/70 95 /03 2353 98.2 59 16 128/62 94 Room Air 06/24 2240 61 128/62 ED Intake and Output 06/25 0000 06/24 1200 Intake Total 250 Output Total 976 Balance -726 Intake, Oral 250 Number 2 Bowel Movements Output, Stool 1 Output, Urine 975 Allergies Coded Allergies: Penicillins (SWELLING, RASH, ITCH 05/22/17) aspirin (RASH 05/22/17) cephalexin (From KEFLEX) (ITCHY 05/22/17) codeine (ITCH 05/22/17) levofloxacin (From LEVAQUIN) (RASH 05/22/17) oxaprozin (From DAYPRO) (RASH 05/22/17) propoxyphene (UNKNOWN REACTION TO DARVOCET 05/22/17) Triage Note: PT TO ER FOR ?BLOOD TRANSFUSION. PT HAD OUTPATIENT LABS DRAWN WHICH SHOWED ANEMIA. HX OF SAME WITH LAST TRANSFUSION 3 WEEKS AGO. PT PALE. PT DENIES DIZZINESS. Triage Nurses Notes Reviewed? yes Onset: Gradual Duration: week(s):, constant, getting worse Timing: recent history Injury Environment: home Severity: moderate Severity Numbers: 8 Modifying Factors: Worsens With: movement. Associated Symptoms: denies HPI: 76 year old femal with past medical history of CHF, hypertension, anemia, hyperlipidemia, diverticulitis, bowel perforation status post colostomy, rheumatoid arthritis, anxiety, depression, insomnia, and vitamin D deficiency presents to the ER for evaluation sent in by her home aid Dr. Zavala after she had outpatient blood work performed today that showed an H&H of 6.8 and 20. Patient reports of worsening shortness of breath generalized malaise lethargy for the past few weeks however getting worse with exertion. No chest pain abdominal pain nausea vomiting diarrhea black or bloody stools. She was last admitted to this hospital one month ago which time she required 3 units of blood. She is on xarelto. (Richie Herrera) Reconcile Medications Butalb/Acetaminophen/Caffeine (Vghvoz-Zgwxngco-Yktr 50-325-40) 50 MG-325 MG-40 MG TABLET 1 TAB PO BID PRN migrain (Reported) Calcium Carbonate/Vitamin D3 (Os-Mehdi 500+D3 Caplet) 500 MG-200 TABLET 1 TAB PO DAILY SUPPLEMENT (Reported) Carvedilol 25 MG TABLET 1 TAB PO BID HEART/BP (Reported) Cyclobenzaprine HCl 5 MG TABLET 1 TAB PO TIDPRN PRN muscle spasms (Reported) Docusate Sodium 100 MG CAPSULE 1 CAP PO DAILY constipation (Reported) Ergocalciferol (Vitamin D2) (Vitamin D2) 50,000 UNIT CAPSULE 1 CAP PO QWED SUPPLEMENT (Reported) Ferrous Gluconate (Unknown Strength) TABLET (Unknown Dose) PO DAILY SUPPLEMENT (Reported) Furosemide (Lasix) 20 MG TABLET 1 TAB PO DAILY DIURETIC (Reported) Hydromorphone HCl (Dilaudid) 4 MG TABLET 0.5-1 TAB PO Q8P PRN PAIN (Reported) Hydroxychloroquine Sulfate 200 MG TABLET 1 TAB PO BID RA (Reported) Levothyroxine Sodium 25 MCG TABLET 1 TAB PO DAILY AC THYROID (Reported) Lisinopril 10 MG TABLET 1 TAB PO QAM BP (Reported) Metoclopramide HCl (Reglan) 10 MG TABLET 1 TAB PO TID for nausea (Reported) 30 minutes before meals and bedtime Omeprazole 20 MG TABLET.DR 1 TAB PO DAILY GI (Reported) Potassium Chloride (Klor-Con 10) (Unknown Strength) TABLET.ER (Unknown Dose) PO DAILY SUPPLEMENT (Reported) Prednisone 10 MG TABLET 1 TAB PO QAM STEROID (Reported) Rivaroxaban (Xarelto) 20 MG TABLET 1 TAB PO DAILY blood thinner (Reported) with food Sennosides/Docusate Sodium (Senna Plus Tablet) 8.6 MG-50 MG TABLET 1 TAB PO DAILY NEEDED PRN CONSTIPATION . Sertraline HCl 25 MG TABLET 1 TAB PO QAM MENTAL HEALTH (Reported) (Pedro CURTIS,Reggie) Past History Travel History Traveled to [place] past 21 day No Medical History Any Pertinent Medical History? see below for history Neurological: migraine EENT: cataracts Cardiovascular: CHF, hypertension, hyperlipidemia Respiratory: pneumonia, DYSPNEA Gastrointestinal: diverticulitis, HEMORRHOIDS BOWEL RESECTION COLOSTOMY Hepatic: NONE Renal: 3+PROTEIN IN URINE [id number] Musculoskeletal: rheumatoid arthritis Psychiatric: anxiety, depression, insomnia Endocrine: vitamin D deficiency Blood Disorders: anemia Cancer(s): NONE FINISHING PAN OPERATOR/Reproductive: NONE History of MRSA: No History of VRE: No History of CDIFF: No Influenza Vaccine: 12/22/16 Surgical History Surgical History: colon resection, hysterectomy, laminectomy Psychosocial History Who do you live with Patient/Self Services at Home Servant What is your primary language Marshallese Tobacco Use: Quit >30 days ago Family History Family History, If Any: Relation not specified for: *No pertinent family history Hx Contributory? No (Richie Herrera) Review of Systems Review of Systems Constitutional: Reports: see HPI. Comments Review of systems: See HPI, All other systems negative. Constitutional, no chills no fever HEENT: no sore throat no congestion, Cardiovascular: No chest pain , no palpitation Skin: no rashes, no change in skin Respiratory: dyspnea no cough no sputum GI: No nausea no vomiting, no diarrhea, : No dysuria Muscle skeletal: No joint pain, no back pain, no neck pain, Neurologic: , no headache Heme/endocrine: No bruising Immunology: No lymphadenopathy (Richie Herrera) Physical Exam Physical Exam General Appearance: alert, awake, cachetic Comments: Well-developed well-nourished person in no acute distress HEENT: Normal EENT exam; PERRL, EOMI. HEAD is atraumatic. moist mucous membranes. Neck: Supple, normal range of motion Back: Full range of motion Cardiovascular: Regular rate and rhythms no murmur Respiratory: No respiratory distress. Patient speaking in full complete sentences. Diminished breath sounds bilaterally Abdomen: Soft, nontender nondistended, no appreciable organomegaly. Normal bowel sounds. No rebound/guarding, No ascites. Extremity: 4+ b/l le edema, full range of motion of extremities, normal and equal pulses bilaterally, 5 out of 5 strength noted to bilateral upper and lower extremities Neuro: Alert oriented x3, motor sensory normal, cranial nerves II through XII grossly intact. There were no obvious focal neurologic abnormalities. Skin: pale, skin is warm and dry. Psych: Mood and affect is normal, memory and judgment is normal. Core Measures ACS in differential dx? Yes CVA/TIA Diagnosis: No Sepsis Present: No Sepsis Focused Exam Completed? No (Richie Herrera) Progress Differential Diagnoses I considered the following diagnoses in my evaluation of the patient: [ANEMIA, GI BLEED,CHF, ELECTROLYTE ABNROMALITY, DEHYDRATION Plan of Care: Orders Procedure Date/time Status CBC WITHOUT DIFFERENTIAL 06/26 599 Active BASIC ELECTROLYTES PLUS BUN&CR 06/26 599 Active CULTURE,URINE 06/25 1743 Active Straight Cath 06/25 UNK Active Cueto, Insertion/Removal/Asses 06/25 UNK Active URINE TOTAL PROTEIN 06/25 UNK Active PHARMACY COMMUNICATION FORM 06/25 UNK Active Current Medications Sig/Rick Start time Last Medication Dose Stop Time Status Admin Nitroglycerin 0.5 GM Q6H 06/25 1600 AC 06/25 (Nitro-Bid) 1603 Furosemide 20 MG ONCE ONE 06/25 1330 CAN (Lasix) 06/25 1331 Heparin Sodium 5,000 UNIT Q8 06/24 1615 AC 06/25 (Porcine) 1603 Carvedilol 25 MG BID 06/24 1000 AC 06/25 (Coreg) 0933 Ferrous Gluconate 325 MG DAILY 06/24 1000 AC 06/25 (Fergon) 0933 Pantoprazole Sodium 40 MG BID 06/24 1000 AC 06/25 (Protonix) 0933 Prednisone 10 MG QAM 06/24 1000 AC 06/25 0933 Levothyroxine Sodium 0.025 MG DAILY AC 06/24 0700 AC 06/25 (Synthroid) 0559 Acetaminophen/ 1 TAB BID PRN 06/24 0015 AC Butalbital/Caffeine (Fioricet) Hydromorphone HCl 2 MG Q8 PRN 06/24 0015 AC 06/25 (Dilaudid) 1319 Laboratory Tests 06/25/17 0717: Anion Gap 9, Estimated GFR 24 L, BUN/Creatinine Ratio 29.0 H, CBC w Diff NO MAN DIFF REQ, RBC 3.20 L, MCV 90.5, MCH 29.8, MCHC 32.9 L, RDW 15.7 H, MPV 8.4, Gran % 70.1, Lymphocytes % 21.9, Monocytes % 6.7, Eosinophils % 0.9, Basophils % 0.4, Absolute Granulocytes 5.3, Absolute Lymphocytes 1.7, Absolute Monocytes 0.5, Absolute Eosinophils 0.1, Absolute Basophils 0 06/24/17 2242: CBC w Diff NO MAN DIFF REQ, RBC 3.01 L, MCV 90.5, MCH 29.8, MCHC 33.0, RDW 14.9 H, MPV 8.5, Gran % 78.5 H, Lymphocytes % 16.3 L, Monocytes % 4.3, Eosinophils % 0.1, Basophils % 0.8, Absolute Granulocytes 6.0, Absolute Lymphocytes 1.3, Absolute Monocytes 0.3, Absolute Eosinophils 0, Absolute Basophils 0.1 Microbiology 06/25 1743 URINE ROUT: Urine Culture - COLB Labs ordered old records [address] hernandez-lasix 20mg iv, ordered , pt had gi workup last month for gauiac pos stool with no cause identified. 1 unit of blood ordered. Discussed with the patient plan of care she agrees with plan call placed to hospitalist Old records reviewed the patient's troponin of 0.57 today is her baseline dating back to March of this year she has no chest pain a call was placed to her home aid Dr. Zavala I spoke with Dr. shepard will admit Diagnostic Imaging: Viewed by Me: Radiology Read. Discussed w/RAD: Radiology Read. Radiology Impression: PATIENT: RYAN CHRISTENSEN PRESENT AGE: 76 PATIENT ACCOUNT NO: [id number] : 39 LOCATION: [facility] ORDERING PHYSICIAN: Richie MTATA SERVICE DATE: 06/23/17 EXAM TYPE: RAD - XRY- PORTABLE CHEST XRAY EXAMINATION: CHEST 1 VIEW CLINICAL INFORMATION: Dyspnea. Leg swelling. COMPARISON: 06/18/2017. TECHNIQUE: An AP view of the chest is provided. FINDINGS: The cardiac silhouette is enlarged, though stable. There are bilateral pleural effusions, right greater than left with associated airspace disease. There is right fissural fluid. There is mild interstitial prominence throughout both lungs, not significantly changed from prior exam. The osseous structures are stable. IMPRESSION: Stable degree of vascular congestion. Slight interval increase in bilateral pleural effusions, right greater than left with associated airspace disease. DICTATED BY: James Buchanan MD DATE/TIME DICTATED: 06/23/171649 FIRST AID TEACHER:TED DATE/TIME TRANSCRIBED:06/23/171649 CONFIDENTIAL, DO NOT COPY WITHOUT APPROPRIATE AUTHORIZATION. <Electronically signed in Other Vendor System> SIGNED BY: James Buchanan MD 04/02/18 1656 Initial ED EKG: normal intervals, normal p-waves, normal QRS complex, normal sinus rhythm (60) Prior EKG: unchanged Rhythm Strip: normal sinus rhythm (Richie Herrera) Departure Departure Time of Disposition: 1845 Disposition: STILL A PATIENT Condition: Stable Clinical Impression Primary Impression: CHF exacerbation Secondary Impressions: Symptomatic anemia Referrals: Corrina Fortune MD (PCP/Family) Departure Forms: Customer Survey General Discharge Information Admission Note Spoke With: Aziza Shepard MD Documentation of Exam: Documentation of any treatments & extenuating circumstances including Concerns Regarding Discharge (functional status, medication knowledge or non-compliance, living conditions, etc.) that warrant an admission rather than observation: [ Cardiology consult IV diuresis trend labs gentle IV transfusions secondary to previous history of CHF premature discharge at this time would BE medically harmful. (Richie Herrera) PA/MANAGER PURCHASING Co-Sign Statement Statement: ED Attending supervision documentation- X I saw and evaluated the patient. I have also reviewed all the pertinent lab results and diagnostic results. I agree with the findings and the plan of care as documented in the PA's/MANAGER PURCHASING's documentation. Referred for symptomatic anemia requiring transfusion, Hx CHF, RA [] I have reviewed the ED Record and agree with the PA's/MANAGER PURCHASING's documentation. [] Additions or exceptions (if any) to the PAs/MANAGER PURCHASING's note and plan are summarized below: [] (Pedro CURTIS,Reggie) Critical Care Note Critical Care Note Critical Care Time: non-applicable (Richie Herrera)
--- NOTE | 2017-06-23 16:56 | RADIOLOGY REPORT ---
EXAMINATION: CHEST 1 VIEW CLINICAL INFORMATION: Dyspnea. Leg swelling. COMPARISON: 06/18/2017. TECHNIQUE: An AP view of the chest is provided. FINDINGS: The cardiac silhouette is enlarged, though stable. There are bilateral pleural effusions, right greater than left with associated airspace disease. There is right fissural fluid. There is mild interstitial prominence throughout both lungs, not significantly changed from prior exam. The osseous structures are stable. IMPRESSION: Stable degree of vascular congestion. Slight interval increase in bilateral pleural effusions, right greater than left with associated airspace disease.
[2017-06-23 16:58] LABS: ABSOLUTE BASOPHIL COUNT 0 /CUMM (0.0-0.2); ABSOLUTE EOSINOPHIL COUNT 0 /CUMM (0.0-0.7); ABSOLUTE GRANULOCYTE CT 7.4 /CUMM (1.4-6.5); ABSOLUTE LYMPH COUNT 0.6 /CUMM (1.2-3.4); ABSOLUTE MONOCYTE COUNT 0.2 /CUMM (0.10-0.60); BASOPHIL % 0.3 % (0.0-2.0); EOSINOPHIL % 0 % (0-5); WHITE BLOOD CELL COUNT 8.2 /CUMM (4.8-10.8)
[2017-06-23 17:00] LABS: MEAN CORPUSCULAR HGB CONC 32.6 G/DL (33.0-37.0); MEAN PLATELET VOLUME 8.6 FL (7.4-10.4); PLATELET COUNT 192 /CUMM (130-400); RED BLOOD CELL CT 2.32 /CUMM (4.20-5.40)
[2017-06-23 17:01] LABS: HEMATOCRIT 20.6 % (37-47)
[2017-06-23 17:12] LABS: GRANULOCYTE % 90.1 % (42.2-75.2); PT 17.7 SEC (9.4-12.5); PTT 33 SEC (25-37)
[2017-06-23 22:32] VITALS: BP 138/56
--- NOTE | 2017-06-23 23:04 | History & Physical ---
Cortez Omer MD 06/23/17 8004: General Information and HPI MD Statement: I have seen and personally examined RYAN CHRISTENSEN and documented this H&P. The patient is a 76 year old F who presented with a patient stated chief complaint of anemia on blood work. Source of Information: patient, old records Exam Limitations: no limitations History of Present Illness: 76 year old female with a history of rheumatoid arthritis on hydroxychloroquine and chronic steroids, colonic perforation during colonscopy s/p colostomy and Emanuel's procedure, h/o small bowel AVM, h/o DVT on anticoagulation with Xarelto (previously Eliquis), obesity, hypothyroidism, TACO on CPAP, chronic anemia, HTN, HFpEF, recent hospitalizations in March with HFpEF exacerbation, b/l pleural effusions and pneumonia and again in May with symptomatic anemia, suspected GI bleed s/p 3 units pRBC transfusion and unrevealing upper endoscopy. She was discharged on an oral PPI and continuing anticoagulation. She has not follow up with gastroenterology after being discharged in May. Her hemoglobin one week ago was 8.4 and is 6.8 on arrival. She doesn't report any bleeding, hemoptysis, hematochezia, hematuria. She does report that she gets some skin irritation and minor bleeding from her ostomy care. She does have dark stools always in her colostomy bag from iron supplementation, but home guiaic testing has been reportedly negative at home. After discharge, she has complained of worsening exertional dyspnea, lightheadedness, weakness, and fatigue. She has been taking her Xarelto. On review of systems she complains of chills, headaches (not currently), diffuse body pain from rheumatoid for which she takes dilaudid that has been making her more fatigued than usual, chronic loss of visual acuity, urinary incontinence, two episodes of vomiting four days ago, and some abdominal pain around the stoma site. She denies any fevers, chest pain, palpitations, and dysuria. In the ED, she was given dilaudid, one unit of blood and one dose of lasix IV 20mg. Allergies/Medications Allergies: Coded Allergies: Penicillins (SWELLING, RASH, ITCH 05/22/17) aspirin (RASH 05/22/17) cephalexin (From KEFLEX) (ITCHY 05/22/17) codeine (ITCH 05/22/17) levofloxacin (From LEVAQUIN) (RASH 05/22/17) oxaprozin (From DAYPRO) (RASH 05/22/17) propoxyphene (UNKNOWN REACTION TO DARVOCET 05/22/17) Home Med list Butalb/Acetaminophen/Caffeine (Hgsmgk-Fwdyoopm-Ygmu 50-325-40) 50 MG-325 MG-40 MG TABLET 1 TAB PO BID PRN migrain (Reported) Calcium Carbonate/Vitamin D3 (Os-Mehdi 500+D3 Caplet) 500 MG-200 TABLET 1 TAB PO DAILY SUPPLEMENT (Reported) Carvedilol 25 MG TABLET 1 TAB PO BID HEART/BP (Reported) Cyclobenzaprine HCl 5 MG TABLET 1 TAB PO TIDPRN PRN muscle spasms (Reported) Docusate Sodium 100 MG CAPSULE 1 CAP PO DAILY constipation (Reported) Ergocalciferol (Vitamin D2) (Vitamin D2) 50,000 UNIT CAPSULE 1 CAP PO QWED SUPPLEMENT (Reported) Ferrous Gluconate (Unknown Strength) TABLET (Unknown Dose) PO DAILY SUPPLEMENT (Reported) Furosemide (Lasix) 20 MG TABLET 1 TAB PO DAILY DIURETIC (Reported) Hydromorphone HCl (Dilaudid) 4 MG TABLET 0.5-1 TAB PO Q8P PRN PAIN (Reported) Hydroxychloroquine Sulfate 200 MG TABLET 1 TAB PO BID RA (Reported) Levothyroxine Sodium 25 MCG TABLET 1 TAB PO DAILY AC THYROID (Reported) Lisinopril 10 MG TABLET 1 TAB PO QAM BP (Reported) Metoclopramide HCl (Reglan) 10 MG TABLET 1 TAB PO TID for nausea (Reported) 30 minutes before meals and bedtime Omeprazole 20 MG TABLET.DR 1 TAB PO DAILY GI (Reported) Potassium Chloride (Klor-Con 10) (Unknown Strength) TABLET.ER (Unknown Dose) PO DAILY SUPPLEMENT (Reported) Prednisone 10 MG TABLET 1 TAB PO QAM STEROID (Reported) Rivaroxaban (Xarelto) 20 MG TABLET 1 TAB PO DAILY blood thinner (Reported) with food Sennosides/Docusate Sodium (Senna Plus Tablet) 8.6 MG-50 MG TABLET 1 TAB PO DAILY NEEDED PRN CONSTIPATION . Sertraline HCl 25 MG TABLET 1 TAB PO QAM MENTAL HEALTH (Reported) Compliance With Home Meds: GOOD Past History Travel History Traveled to [place] past 21 day No Medical History Blood Transfusion Hx: Yes Neurological: migraine EENT: cataracts Cardiovascular: CHF, hypertension, hyperlipidemia Respiratory: pneumonia, DYSPNEA Gastrointestinal: diverticulitis, HEMORRHOIDS BOWEL RESECTION COLOSTOMY Hepatic: NONE Renal: 3+PROTEIN IN URINE [id number] Musculoskeletal: rheumatoid arthritis Psychiatric: anxiety, depression, insomnia Endocrine: vitamin D deficiency Blood Disorders: anemia Cancer(s): NONE 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 Review of Systems Review of Systems Constitutional: Reports: chills, malaise, weakness. Denies: diaphoresis, fever. EENTM: Reports: no symptoms. Cardiovascular: Reports: peripheral edema. Denies: chest pain, syncope. Respiratory: Reports: short of breath. Denies: cough. GI: Reports: abdominal pain, melena, nausea, vomiting. Denies: bloody stool, changes in stool. Genitourinary: Reports: frequency. Denies: dysuria. Musculoskeletal: Reports: see HPI. Skin: Reports: no symptoms. Neurological/Psychological: Reports: no symptoms. Hematologic/Endocrine: Reports: no symptoms. Immunologic/Allergic: Reports: no symptoms. All Other Systems: Reviewed and Negative Exam & Diagnostic Data Last 24 Hrs of Vital Signs/I&O Vital Signs Date Time Temp Pulse Resp B/P B/P Pulse O2 O2 Flow FiO2 Mean Ox Delivery Rate 06/24 2231 98.9 87 16 138/56 94 Room Air 06/23 2222 94 Room Air 06/23 2121 97.8 62 18 138/76 96 Room Air 06/23 1744 Room Air 06/23 1743 98.0 62 18 142/66 94 Room Air 06/23 1455 96.7 61 18 111/53 96 Room Air Intake & Output 06/24 0800 04/03 0000 06/23 1600 Intake Total Output Total Balance Patient 71.384 kg 68.039 kg Weight Weight Bed scale Reported by Patient Measurement Method Physical Exam General Appearance Alert, Oriented X3, Cooperative, No Acute Distress Cardiovascular Regular Rate, Normal S1, Normal S2, No Murmurs Lungs Clear to Auscultation, diminished right base Abdomen Normal Bowel Sounds, Soft, No Tenderness, No Masses, LLQ colostomy Extremities No Clubbing, No Cyanosis, Normal Pulses, 2+ bilateral lower extremity pitting edema beyond the knees Last 24 Hrs of Labs/Rubin: Laboratory Tests 06/23/17 1644: Iba-T-Kvnpoqqqmzy Pept 8150 H 06/23/17 1644: Anion Gap 8, Estimated GFR 20 L, BUN/Creatinine Ratio 25.4 H, Glucose 115 H, Calcium 9.4, Iron Pending, TIBC Pending, Ferritin Pending, Total Bilirubin 0.2, AST 15, ALT 20, Alkaline Phosphatase 74, Lactate Dehydrogenase Pending, Troponin I 0.57 *H, Total Protein 4.7 L, Albumin 2.2 L, Globulin 2.5, Albumin/Globulin Ratio 0.9 L, PT 17.7 H, INR 1.62 H, APTT 33, CBC w Diff NO MAN DIFF REQ, RBC 2.32 L, MCV 89.0, MCH 29.0, MCHC 32.6 L, RDW 16.0 H, MPV 8.6, Gran % 90.1 H, Lymphocytes % 7.2 L, Monocytes % 2.4, Eosinophils % 0, Basophils % 0.3, Absolute Granulocytes 7.4 H, Absolute Lymphocytes 0.6 L, Absolute Monocytes 0.2, Absolute Eosinophils 0, Absolute Basophils 0, Retic Count Pending Diagnostic Data EKG Results sinus rhythm without ischemic changes CXR Results The cardiac silhouette is enlarged, though stable. There are bilateral pleural effusions, right greater than left with associated airspace disease. There is right fissural fluid. There is mild interstitial prominence throughout both lungs, not significantly changed from prior exam. The osseous structures are stable. Stable degree of vascular congestion. Slight interval increase in bilateral pleural effusions, right greater than left with associated airspace disease. Other Results echo 03/2017 1. Normal EF of 60% with restrictive hemodynamics. 2. Mild left ventricular hypertrophy. 3. Moderate left atrial enlargement 4. Mild to moderate mitral regurgitation. 5. Mild tricuspid regurgitation. 6. Moderate aortic regurgitation. 7. Trace pulmonic regurgitation. Assessment/Plan Assessment: 76 year old female with a history of rheumatoid arthritis on hydroxychloroquine and chronic steroids, colonic perforation during colonscopy s/p colostomy and Emanuel's procedure, h/o small bowel AVM, h/o DVT on anticoagulation with Xarelto (previously Eliquis), obesity, hypothyroidism, TACO on CPAP, chronic anemia, HTN, HFpEF, recent hospitalizations in March with HFpEF exacerbation, b/l pleural effusions and pneumonia and again in May with symptomatic anemia, suspected GI bleed s/p 3 units pRBC transfusion and unrevealing upper endoscopy was sent in for evaluation of worsening anemia and acute kidney injury on blood work. Symptomatic anemia: Chronic anemia Continue supplemental iron Check iron studies Check reticulocyte count, haptoglobin, LDH Type and screen Transfused 1 unit pRBCs in the ED Repeat CBC Monitor for volume overload, lasix prn as necessary Gastroenterology consultation for h/o GI bleeding and symptomatic anemia History of GI bleed: Colonic perforation during colonscopy 2014, s/p colostomy and Emanuel's procedure History of small bowel AVM Continue PO PPI Guiaic colostomy daily Elevated troponin: 0.57, unchanged on repeat Continue to trend No acute ischemic EKG changes or symptoms of myocardial ischemia Likely demand ischemia in the setting of MARVEL Acute kidney injury: Creatinine 2.4 on presentation, 1.4 on prior discharge Likely from intravascular volume depletion Resuscitate carefully with pRBCs given history of HFpEF Repeat renal function and electrolytes in AM Rheumatoid arthritis Continue hydroxychloroquine 200mg PO BID Continue chronic steroids prednisone 10mg daily History of DVT: Hold Xarelto Obesity: Check lipid panel Consider statin therapy Hypothyroidism: Check TSH Continue synthroid TACO on CPAP: TRC evaluation, CPAP set up 4cm h2o HTN: Continue lasix, lisinopril, and carvedilol HFpEF: Continue lasix, carvedilol, and lisinopril proBNP elevated to 8000, previously 9000 on last admission Heart healthy diet DVT ppx-mechanical ALPs DNR/DNI As Ranked By This Provider Problem List: 1. GI bleed 2. Symptomatic anemia 3. Elevated troponin Core Measures/Misc (12/08) Acute Coronary Syndrome ACS Diagnosis: No Congestive Heart Failure Congestive Heart Failure Diagnosis Yes Last Known EF % 60 Cerebrovascular Accident CVA/TIA Diagnosis: No VTE (View Protocol) VTE Risk Factors Age>40 No Mechanical VTE Prophylaxis d/t N/A MechProphylax Ordered No VTE Pharm Prophylaxis d/t NA PharmProphylax ordered Sepsis (View protocol) Sepsis Present: No Andry CURTIS,[facility] 06/24/17 0220: Resident Review Statement Resident Statement: examined this patient, discussed with events intern, agreed with events intern Other Findings: 76-year-old female with a PMH of RA on steroid, colonic perforation post left side colostomy 2 years ago, DVT on Xarelto, TACO on CPAP, HTN, HFpEF, hypothyroidism, chronic anemia, presented with symptomatic anemia. Patient was recently admitted for GI bleed, she was transfused with 3 units of blood. Upper endoscopy didn't reveal significant finding, hemoglobin at discharge was 8.4. The patient did not follow with assessment consultant Dr. Maier. Since discharge she's been complaining of progressive dyspnea, dizziness , and fatigue. Her hemoglobin was found to be 6.8 down from 8.4 a week ago for which she was sent to the ED. The patient has a visiting nurse that guaiac all her stool and were reported negative. She denies hematuria. The patient reported cold intolerance, chills, chronic multi-joint pain secondary to rheumatoid arthritis for which she is taking Dilaudid. She also reported 2 episodes of nonbloody episodes of vomiting 2 days ago that resolved spontaneously. She reports mild bleeding and tenderness around the colostomy bag. The rest of the review of system were negative. On admission: BP 111/53, HR 60s, temp 98, saturating well on room air. Significant labs were H&H 6.7 and 20.6, reticular count 2.10, INR 1.6, sodium 135, creatinine 2.4 (baseline 1.4), glucose 1:15, troponin 0.57, BMP 8100. Chest x-ray:Stable degree of vascular congestion. Slight interval increase in bilateral pleural effusions, right greater than left with associated airspace disease. Physical Exam on admission:GA Alert, Oriented X3CVS Regular Rate, Normal S1, Normal S2, No Murmurs. Resp Clear to Auscultation, diminished right base. Abdomen Normal Bowel Sounds, Soft, NT/ND, LLQ colostomy. Extremities No Clubbing , No Cyanosis, 2+ bilateral lower extremity pitting edema up to the midthigh. Assessment and plan: 76 year old female with multiple comorbidities presented with a low hemoglobin of 6.8 down from 8.4 a week ago. Patient is complaining of anemia symptom such as exertional shortness breath, dizziness, and fatigue. There is no obvious source of bleeding and all stool guaiac at home were negative. She has a reticulocyte of 2 on admission which indicates sup optimal RBC synthesis. This can be secondary to iron, B12, or folic acid deficiency. Or possibly anemia of chronic disease. She has mildly elevated troponin most likely secondary to MARVEL and anemia. BNP 8100, lower extremity edema and vascular congestion on x-ray. #Symptomatic anemia with a recent history of GI bleed * Admit to telemetry * 1 unit blood transfusion, goals hemoglobin of 7. * Repeat iron study, B12, folic acid * We will check LDH * 1 dose of Lasix posttransfusion to prevent CHF exacerbation * Continue PPI while on steroids * GI consult in a.m. * We will consider city supervisor consult if no improvement. #HFpEF, elevated troponin. * Continue home Lasix * 1 extra dose of Lasix posttransfusion * Rule out ACS with serial EKG and troponin * Cardio consult in a.m. #MARVEL * Creatinine is 2.4(baseline is 1.4), most likely related to anemia and possibly cardiorenal. * Hold lisinopril * We will recheck tomorrow morning after she received blood transfusion #Hypothyroidism, rheumatoid arthritis, Hx DVT, TACO, HTN, * Continue steroid and hydroxychloroquine * Continue levothyroxin * Continue Lasix and carvedilol * Hold lisinopril because of MARVEL * Nighttime CPAP * Hold Xarelto -Heart healthy diet -DVT ppx-mechanical ALPs -DNR/DNI DevynAziza garza 06/24/17 0319: Attending MD Review Statement Attending Statement Attending MD Statement: examined this patient, discuss w/resident/PA/SCREEN WRITER, agreed w/resident/PA/SCREEN WRITER, reviewed EMR data (avail), reviewed images, amended to note Attending Assessment/Plan: CC: Low hemoglobin: Labs Done outpatient PMH: HTN, HFpEF, bilateral pleural effusion, history of DVT, history of anemia, TACO on CPAP, anxiety, depression, rheumatoid arthritis, history of colonic perfusion s/p colostomy, hypothyroidism Since her last discharge patient has home health nurse visiting and 24-hour caregiver aide at home. Today patient's labs were drawn and her hemoglobin was low so she was suggested to go to ER. Patient had been getting very weak and tired, she has been noticing dyspnea on exertion. She is not very active at baseline given her multiple comorbidities but whenever she is getting up from recliner and walk a little, she gets short of breath which is more than usual for her. She denies any chest pain or chest tightness. The home health nurse has been checking guaiac on her colostomy output which has been negative. Patient has not noticed any obvious blood in the colostomy but it has been dark according to her. She loses some blood around the colostomy site on and off. She is not sure if she followed up with solar installation helper since her last discharge. She has not followed up with the assessment consultant since her last discharge for capsule endoscopy. She denies any blood in urine, epistaxis, any other bleeding. Vitals: Afebrile, temperature 96.7, pulse 61, RR 18, blood pressure 111/53, saturating 96% on room air. On exam: A O 3, cooperative, mild respiratory distress but does not need oxygen , accessory muscles not in use, completes sentences. Neck supple, JVD normal, no lymphadenopathy, mucosa moist, no focal neurological deficit, significant edema up to thighs, no obvious skin rashes or inflammation CVS: S1-S2, RRR. RS: Clear to auscultate bilaterally, no obvious crackles or wheezing, diminished air entry right base. Abdomen: Soft, NT, ND, bowel sounds present, colostomy bag on left side. CXR: Stable degree of vascular congestion. Slight interval increase in bilateral pleural effusions, right greater than left with associated airspace disease. Assessment and plan 76-year-old female with extensive past medical history was brought in ER for low hemoglobin. Patient had been getting symptoms of shortness of breath, tiredness and weakness, progressively worsening. She was admitted from May 22 to May 29, for low hemoglobin and was investigated with push enteroscopy. Findings suggestive of 5 cm hiatal hernia, nonspecific red spot in the second portion of duodenum and no acute bleeding. Patient was suggested to follow-up outpatient GI for capsule endoscopy. Since her last discharge patient has home health nurse visiting and 24-hour caregiver aide at home. The home health nurse has been checking guaiac on her colostomy output which has been negative. Patient has not noticed any obvious blood in the colostomy but it has been dark according to her. Her labs were obtained as routine investigation to follow-up your H&H, and her hemoglobin was low again so she was sent to ER. Currently she denies any chest pain, chest tightness, shortness of breath at rest. On examination she is found to have significant pedal edema, no JVD, no crackles but decreased air entry on basis R<L. Hemoglobin is 6.7 which is dropped from 8.4 on June 18 and 10.5 on May 29. His previous iron studies show Iron 13, TIBC 280, ferritin 33.5 which is suggestive of iron deficiency anemia. Push enteroscopy could not identify any bleeding lesions. Patient did not follow-up for capsule endoscopy. Patient's H&H is gradually dropping even on iron supplementation. If this is merely chronic blood loss anemia or in addition to patient has absorption abnormality or bone marrow depression is unclear at this point. We will repeat iron studies, obtain GI opinion and if required hematology opinion. She has elevated troponin 0.57, probably secondary to demand ischemia or chronically elevated troponin leak. Currently asymptomatic, exam unremarkable. Also patient was discharged on Xeralto, but current med rec shows Eliquis as well as Xeralto. Patient could not confirm her medications. Her Son refills all her medications. We will hold anticoagulant for now and need to confirm home medication. Her creatinines elevated from 1.4 to 2.4, unclear etiology, patient received a dose of Lasix in ER, will follow labs in a.m. It is unclear if this is secondary to cardiorenal syndrome or just dehydration but patient does not appear to be in acute heart failure at this moment. + Symptomatic anemia, acute on chronic, probably secondary to blood loss, need to rule out malabsorption, bone marrow suppression + Elevated troponin secondary to demand ischemia + MARVEL on CKD + History of HFpEF : No evidence of volume overload + History of HTN, bilateral pleural effusion, history of DVT currently on anticoagulation, TACO on CPAP, anxiety, depression, rheumatoid arthritis, history of colonic perfusion s/p colostomy, hypothyroidism - Admit to telemetry - Continuous telemetry monitoring - Serial troponins and ECGs - Patient received 1 PRBC Transfusion in ER, and 20 mg IV Lasix : repeat H and H in Am - transfusion goal hemoglobin 8 - Cardiology consult - Gastroenterologic consult - Hold aspirin and Xeralto : confirm if patient is taking Xeralto or eliquis or both - Protonix 40 mg IV twice a day - Replete B12 and folic acid - repeat Iron, TIBC, Ferritin, Retic Count - Continue clears PO for now - hold lisinopril, continue rest of her home medications - Strict I's and O's, daily weights
[2017-06-23] MEDS ORDERED: BUTALB-ACETAMI1 EACH PO (23:53)
[2017-06-23] MEDS ORDERED: REGLAN10 M1 PO (23:53)
[2017-06-23] MEDS ORDERED: CYCLOBENZAPRINE5 M2 PO (23:54)
--- NOTE | 2017-06-24 03:21 | Admission Certification ---
Admission Certification Certification Statement - As attending physician, I certify that at the time of - admission, based on clinical presentation, severity of - symptoms, need for further diagnostic testing and - therapeutic interventions, and risk of adverse outcomes - without in-hospital treatment, in my clinical assessment, - this patient requires an acute hospital stay for a minimum - of two nights or longer. I have also considered psychsocial - factors such as support system, advanced age, financial - issues, cognitive issues, and failed out-patient treatments, - past re-admission history, safety of patient, and lack of - compliance as applicable. Specific rationale supporting this admission is: Symptomatic anemia, acute and chronic. Secondary to blood loss
[2017-06-24 06:49] VITALS: BP 122/56
--- NOTE | 2017-06-24 07:11 | PN- Housestaff ---
[facility]: Subjective Follow-up For: Elevated troponin Acute on chronic kidney injury Symptomatic anemia Tele-Events Since Last Visit: Sinus rhythm heart rate between 5564 Subjective: No overnight events. Patient remained afebrile overnight. Seen and examined this morning. She denied any chest pain, nausea, vomiting or chills, fever, abdominal pain dysuria. Patient received one unit of packed red blood cell and her Hb has improved. Patient reported that her exertional dyspnea has improved but she is still feeling tired. Review of Systems Constitutional: Reports: weakness. EENTM: Reports: no symptoms. Cardiovascular: Reports: no symptoms. Respiratory: Reports: short of breath. Gastrointestinal: Reports: no symptoms. Genitourinary: Reports: no symptoms. Musculoskeletal: Reports: no symptoms. Neurological/Psychological: Reports: no symptoms. Objective Last 24 Hrs of Vital Signs/I&O Vital Signs Date Time Temp Pulse Resp B/P B/P Pulse O2 O2 Flow FiO2 Mean Ox Delivery Rate / 0753 55 136/64 / 0649 98.8 57 18 122/56 94 Room Air 04/02 2232 98.9 87 16 138/56 94 Room Air 04/ 2222 94 Room Air 04/ 2121 97.8 62 18 138/76 96 Room Air 04/ 1744 Room Air 04/ 1743 98.0 62 18 142/66 94 Room Air 04/02 1455 96.7 61 18 111/53 96 Room Air Intake & Output 04/03 1600 04/03 0800 04/03 0000 Intake Total Output Total Balance Patient 157 lb Weight Weight Bed scale Measurement Method Physical Exam General Appearance: Alert, Oriented X3, Cooperative Skin: No Rashes Skin Temp/Moisture Exam: Warm/Dry Sepsis Skin Exam (color): Normal for Ethnicity HEENT: Atraumatic, PERRLA, EOMI Neck: Supple Cardiovascular: Normal S1, Normal S2 Lungs: Clear to Auscultation Abdomen: Soft, No Tenderness, clostomy on left side Neurological: Normal Speech, Normal Tone Extremities: b/l pedal edema Assessment/Plan Assessment: 76F PMH HTN, HFpEF, history of DVT on Xarelto, history of anemia, TACO on CPAP, anxiety, depression, rheumatoid arthritis, history of colonic perfusion s/p colostomy, hypothyroidism admitted for symptomatic anemia requiring transfusion, dyspnea with minimal exertion, and weakness. Following the patient on telemetry floor for the following problems: Symptomatic anemia: -Probably multifactorial considering her GI AV malformation, chronic kidney injury. -Ferritin is normal and total iron-binding capacity is also normal -Patient received one unit of blood and her Hb has improved -Her reticulocyte count is low -We will check her erythropoietin level considering her chronic kidney injury. -Continue supplemental iron. -Follow GI recommendation -Follow hematology recommendations. Acute on chronic kidney injury: -Probably due to dehydration -We will monitor input and output -Avoid nephrotoxins medications, NSAIDs -We will encourage patient to take more oral fluids Elevated troponin: -Probably unchanged from previous admission in the setting of chronic kidney injury. -No EKG changes -Could be demand ischemia -We will follow cardiology recommendations Rheumatoid arthritis -Continue hydroxychloroquine 200mg PO BID -Continue chronic steroids prednisone 10mg daily History of hypothyroidism: -Continue levothyroxine History of DVT: -Patient was on xeralto that was stopped because of anemia. History of hypertension: -Continue home medications History of colonic perforation status post colostomy: -Patient has Emanuel procedure due to colonic perforation -Her colostomy is working History of diastolic CHF: -Continue home medications -We will follow cardiology recommendations. DVT prophylaxis: Mechanical and subcutaneous Lovenox CODE STATUS: DNR/DNI Problem List: 1. Elevated troponin 2. Symptomatic anemia 3. Ahver-xx-qxczbwt kidney injury Pain Ratin Pain Location: none Pain Goal: Remain pain free Pain Plan: pain pathway Tomorrow's Labs & Rationales: bep/cbc Ginger Griffiths MD 06/24/17 1059: Attending MD Review Statement Attending Statement Attending MD Statement: examined this patient, discuss w/resident/PA/FEEDER DRIVER, agreed w/resident/PA/FEEDER DRIVER, reviewed EMR data (avail) Attending Assessment/Plan: 76F PMH HTN, HFpEF, history of DVT on Xarelto, history of anemia, TACO on CPAP, anxiety, depression, rheumatoid arthritis, history of colonic perfusion s/p colostomy, hypothyroidism admitted for symptomatic anemia requiring transfusion, dyspnea with minimal exertion, and weakness. Recently admitted for similar 1 month ago, had push enteroscopy which did not show source of bleeding. Has deteriorated since and Hgb was down to 6.7 on admission. No signs of bleeding, no melena, bloody stools, hematuria, or vaginal bleeding. On Xarelto at home for DVT in July 2016 at [facility], held here due to anemia. Labs show iron deficiency anemia with relatively low reticulocyte count and normal MCV. EKG was NSR, troponin 0.58 (similar to level at discharge 1 month ago). Given 1 unit pRBC. 1. Symptomatic anemia 2. Dyspnea on exertion 3. History of DVT 4. Type 2 myocardial infarction Plan - Continue on telemetry - Monitor CBC daily - Iron supplementation - Obtain records from [facility] regarding the nature of her DVT to see if Xarelto can be stopped - Obtain hematolog, GI, cardiology consults - Trend cardiac enzymes and EKG to peak - Transfuse to Hgb>8 - Continue Lasix, as patient continues to have b/l LE edema - Continue home medications - DVT PPx with ALPS, will hold Xarelto for now until records from [facility] can be obtained - Check EPO level
--- NOTE | 2017-06-24 08:03 | Cons- Gastroenterology ---
General Information and HPI Consulting Request Date of Consult: 06/24/17 Requested By: Ginger Griffiths MD Reason for Consult: Anemia, guaiac positive stool. Source of Information: patient, old records Exam Limitations: no limitations History of Present Illness: Ms. Corona is a 76 year old female with multiple medical problems including but not limited to CHF, COPD, RA, DVT on xarelto and a recent hospitalization for anemia who presented to yesterday with complaints of worsening shortness of breath. She was recently admitted for a profound anemia about a month ago during which time she received 3 units of PRBCs and underwent a push enterosocpy which was negative for active bleeding or a definitive source of her anemia. Her anti-coagulation was temporarily held, but it was restarted while she was in an inpatient and she did not have any overt GI bleeding whiles whe was in the hospital. Her hgb on discharge was 10.5. Over the past week she has been complaining of progressive weakness and dyspnea on exertion. A hgb checked last week was 8.5 and then it was checked again yesterday by her PCP and it was noted to be 6.7 and she was subsequently sent to the ER for evaluation and a blood transfusion. She complaints of diffuse joint and body pains which she attributes to her RA. She also notes some discomfort around her ostomy which is not new for her and hasn't changed recently. She has dark stool in her ostomy from the oral iron she takes, but she has not noticed any black tarrry sticky stool in the ostomy nor has she seen any blood. She notes some bilious vomiting a few days ago which hasn't persisted. She denies any significant heartburn or dysphagia. In the ER she was hemodynamically stable and her hgb was noted to be 6.7. She was admitted to the medical service and she has been transfused with one unit of PRBCs. She has been hemodynamically stable and without overt GI bleeding since admission. Allergies/Medications Allergies: Coded Allergies: Penicillins (SWELLING, RASH, ITCH 05/22/17) aspirin (RASH 05/22/17) cephalexin (From KEFLEX) (ITCHY 05/22/17) codeine (ITCH 05/22/17) levofloxacin (From LEVAQUIN) (RASH 05/22/17) oxaprozin (From DAYPRO) (RASH 05/22/17) propoxyphene (UNKNOWN REACTION TO DARVOCET 05/22/17) Home Med List: Butalb/Acetaminophen/Caffeine (Qupygt-Qewjvwqq-Bkot 50-325-40) 50 MG-325 MG-40 MG TABLET 1 TAB PO BID PRN migrain (Reported) Calcium Carbonate/Vitamin D3 (Os-Mehdi 500+D3 Caplet) 500 MG-200 TABLET 1 TAB PO DAILY SUPPLEMENT (Reported) Carvedilol 25 MG TABLET 1 TAB PO BID HEART/BP (Reported) Cyclobenzaprine HCl 5 MG TABLET 1 TAB PO TIDPRN PRN muscle spasms (Reported) Docusate Sodium 100 MG CAPSULE 1 CAP PO DAILY constipation (Reported) Ergocalciferol (Vitamin D2) (Vitamin D2) 50,000 UNIT CAPSULE 1 CAP PO QWED SUPPLEMENT (Reported) Ferrous Gluconate (Unknown Strength) TABLET (Unknown Dose) PO DAILY SUPPLEMENT (Reported) Furosemide (Lasix) 20 MG TABLET 1 TAB PO DAILY DIURETIC (Reported) Hydromorphone HCl (Dilaudid) 4 MG TABLET 0.5-1 TAB PO Q8P PRN PAIN (Reported) Hydroxychloroquine Sulfate 200 MG TABLET 1 TAB PO BID RA (Reported) Levothyroxine Sodium 25 MCG TABLET 1 TAB PO DAILY AC THYROID (Reported) Lisinopril 10 MG TABLET 1 TAB PO QAM BP (Reported) Metoclopramide HCl (Reglan) 10 MG TABLET 1 TAB PO TID for nausea (Reported) 30 minutes before meals and bedtime Omeprazole 20 MG TABLET.DR 1 TAB PO DAILY GI (Reported) Potassium Chloride (Klor-Con 10) (Unknown Strength) TABLET.ER (Unknown Dose) PO DAILY SUPPLEMENT (Reported) Prednisone 10 MG TABLET 1 TAB PO QAM STEROID (Reported) Rivaroxaban (Xarelto) 20 MG TABLET 1 TAB PO DAILY blood thinner (Reported) with food Sennosides/Docusate Sodium (Senna Plus Tablet) 8.6 MG-50 MG TABLET 1 TAB PO DAILY NEEDED PRN CONSTIPATION . Sertraline HCl 25 MG TABLET 1 TAB PO QAM MENTAL HEALTH (Reported) Current Medications: Current Medications Sig/Rick Start time Last Medication Dose Route Stop Time Status Admin Acetaminophen/ 1 TAB BID PRN 06/24 0015 AC Butalbital/Caffeine PO Carvedilol 25 MG BID 06/24 1000 AC PO Ferrous Gluconate 325 MG DAILY 06/24 1000 AC PO Furosemide 20 MG DAILY 06/24 1000 AC PO Furosemide 0 .STK-MED ONE 06/23 1733 DC IV Furosemide 0 .STK-MED ONE 06/23 1731 DC IV Furosemide 20 MG ONCE ONE 06/23 1730 DC 06/23 IV 06/23 1731 1743 Hydromorphone HCl 2 MG Q8 PRN 06/24 0015 AC 06/24 PO 0052 Hydromorphone HCl 0 .STK-MED ONE 06/23 1732 DC PO Hydromorphone HCl 2 MG ONCE ONE 06/23 1730 DC 06/23 PO 06/23 1731 1743 Hydroxychloroquine 200 MG BID 06/24 1000 AC Sulfate PO Levothyroxine Sodium 0.025 MG DAILY AC 06/24 0700 AC 06/24 PO 0539 Lisinopril 10 MG QAM 06/24 1000 CAN PO Omeprazole 20 MG DAILY AC 06/24 0700 CAN PO Pantoprazole Sodium 40 MG BID 06/24 1000 AC IV Prednisone 10 MG QAM 06/24 1000 AC PO Sertraline HCl 25 MG QAM 06/24 1000 CAN PO Past History Travel History Traveled to [place] past 21 day No Medical History Blood Transfusion Hx: Yes Neurological: migraine EENT: cataracts Cardiovascular: CHF, hypertension, hyperlipidemia Respiratory: pneumonia, DYSPNEA Gastrointestinal: diverticulitis, HEMORRHOIDS BOWEL RESECTION COLOSTOMY Hepatic: NONE Renal: 3+PROTEIN IN URINE [id number] Musculoskeletal: rheumatoid arthritis Psychiatric: anxiety, depression, insomnia Endocrine: vitamin D deficiency Blood Disorders: anemia Cancer(s): NONE TERMINAL SUPERVISOR/Reproductive: NONE Surgical History Surgical History: colon resection, hysterectomy, laminectomy Family History Relations & Conditions If Any: Relation not specified for: *No pertinent family history Psychosocial History Services at Home: Servant Primary Language: [place] Smoking Status: Former Smoker Functional Ability Ambulation: cane IADLs Needs Assist: shopping, housework, food prep. Exam & Diagnostic Data Vital Signs and I&O Vital Signs Date Time Temp Pulse Resp B/P B/P Pulse O2 O2 Flow FiO2 Mean Ox Delivery Rate 06/24 0549 98.8 57 18 122/56 94 Room Air 06/24 2231 98.9 87 16 138/56 94 Room Air 06/23 2221 94 Room Air 06/23 2120 97.8 62 18 138/76 96 Room Air 06/23 1744 Room Air 06/23 1743 98.0 62 18 142/66 94 Room Air 06/23 1455 96.7 61 18 111/53 96 Room Air Intake & Output 06/24 Intake Total Output Total Balance Patient 157 lb 150 lb Weight Weight Bed scale Reported by Patient Measurement Method Physical Exam General Appearance: well developed/nourished, no apparent distress, alert, comfortable Head: atraumatic, normal appearance Eyes: Bilateral: normal appearance. Ears, Nose, Throat: normal pharynx, normal ENT inspection Neck: normal inspection, supple, full range of motion Respiratory: normal breath sounds, no respiratory distress, quiet respiration Cardiovascular: regular rate/rhythm Gastrointestinal: normal bowel sounds, soft, non-tender, ostomy c/d/i with mild tenderness to deep palpation Rectal: deferred Back: normal inspection Extremities: pedal edema Neurologic/Psych: no motor/sensory deficits, awake, alert, oriented x 3 Results Pertinent Lab Results: Laboratory Tests 06/24 06/24 06/24 06/23 0615 0615 0000 1644 Chemistry Sodium Pending Potassium Pending Chloride Pending Carbon Dioxide Pending Anion Gap Pending BUN Pending Creatinine Pending BUN/Creatinine Ratio Pending Troponin I (< 0.11 ng/ml) Pending 0.57 *H Phk-K-Srfrupgyvry Pept (<125 pg/mL) 8150 H Hematology CBC w Diff Pending WBC Pending RBC Pending Hgb Pending Hct Pending MCV Pending MCH Pending MCHC Pending RDW Pending Plt Count Pending MPV Pending 06/23 1644 Chemistry Sodium (137 - 145 mmol/L) 135 L Potassium (3.5 - 5.1 mmol/L) 5.0 Chloride (98 - 107 mmol/L) 102 Carbon Dioxide (22 - 30 mmol/L) 25 Anion Gap (5 - 16) 8 BUN (7 - 17 mg/dL) 61 H Creatinine (0.5 - 1.0 mg/dL) 2.4 H Estimated GFR (>60 ml/min) 20 L BUN/Creatinine Ratio (7 - 25 %) 25.4 H Glucose (65 - 99 mg/dL) 115 H Calcium (8.4 - 10.2 mg/dL) 9.4 Iron (37 - 170 ug/dL) 15 L TIBC (265 - 497 ug/dL) 283 Ferritin (11.1 - 264 ng/mL) 43.8 Total Bilirubin (0.2 - 1.3 mg/dL) 0.2 AST (14 - 36 U/L) 15 ALT (9 - 52 U/L) 20 Alkaline Phosphatase (<127 U/L) 74 Lactate Dehydrogenase (313 - 618 U/L) 522 Troponin I (< 0.11 ng/ml) 0.57 *H Total Protein (6.3 - 8.2 g/dL) 4.7 L Albumin (3.5 - 5.0 g/dL) 2.2 L Globulin (1.9 - 4.2 gm/dL) 2.5 Albumin/Globulin Ratio (1.1 - 2.2 %) 0.9 L Vitamin B12 (239 - 931 pg/mL) 490 Folate (2.76 - 20.0 ng/mL) 10.1 Coagulation PT (9.4 - 12.5 SEC) 17.7 H INR (0.90 - 1.19) 1.62 H APTT (25 - 37 SEC) 33 Hematology CBC w Diff NO MAN DIFF REQ WBC (4.8 - 10.8 /CUMM) 8.2 RBC (4.20 - 5.40 /CUMM) 2.32 L Hgb (12.0 - 16.0 G/DL) 6.7 *L Hct (37 - 47 %) 20.6 L MCV (81.0 - 99.0 FL) 89.0 MCH (27.0 - 31.0 PG) 29.0 MCHC (33.0 - 37.0 G/DL) 32.6 L RDW (11.5 - 14.5 %) 16.0 H Plt Count (130 - 400 /CUMM) 192 MPV (7.4 - 10.4 FL) 8.6 Gran % (42.2 - 75.2 %) 90.1 H Lymphocytes % (20.5 - 51.1 %) 7.2 L Monocytes % (1.7 - 9.3 %) 2.4 Eosinophils % (0 - 5 %) 0 Basophils % (0.0 - 2.0 %) 0.3 Absolute Granulocytes (1.4 - 6.5 /CUMM) 7.4 H Absolute Lymphocytes (1.2 - 3.4 /CUMM) 0.6 L Absolute Monocytes (0.10 - 0.60 /CUMM) 0.2 Absolute Eosinophils (0.0 - 0.7 /CUMM) 0 Absolute Basophils (0.0 - 0.2 /CUMM) 0 Retic Count (0.5 - 2.0 %) 2.10 H Imaging/Other Studies: Endoscopy Procedure Medical History: unchanged (see meditech consult) Mental Status: alert/oriented Heart/Lung Eval Prior to Sedation: within normal limits Candidate for Sedation? Yes Procedure Date: 05/24/17 Procedure Type: push enteroscopy. Underground Electrician: Reinaldo Maier MD ASA Classification: IV Indications: Anemia. Instrument: diagnostic gastroscope Meds Received: MAC Patient's Tolerance: good Complications: none Extent Reached: proximal jejunum Procedure: After getting written informed consent the patient was placed in the left lateral decubitus position with pulse oximetry, cardiac monitoring, and supplemental oxygen given. A bite block was inserted and IV sedation was given until the desired effect was achieved. A high definition upper Olympus endoscope was then inserted into the mouth and advanced to the proximal jejunum with little difficulty. Retroflexed views and photodocumentation was obtained. Findings: Esophagus: The esophageal mucosa was grossly normal in appearance and there was a normal-appearing Z line at 30 cm from the incisors. The hiatal narrowing was at 35 cm from the incisors, for 5 cm sliding hiatal hernia. Stomach: The gastric mucosa was grossly normal appearance. There were no ulcers , erosions, or masses appreciated. Distention and peristalsis of the stomach appeared normal. Retroflexed views revealed a moderate size hiatal hernia without Emiliano erosions. Duodenum: The duodenal bulb sweep, and folds are grossly normal in appearance. There was a small nonspecific red spot in the second portion of the duodenum which was not actively bleeding and was not consistent in appearance with an AVM so it was not treated. Jejunum: The folds of the proximal jejunum were grossly normal in appearance and there was bile appreciated throughout to the proximal jejunum without any active bleeding appreciated. Impression: 1. 5 cm hiatal hernia without Emiliano erosions. 2. Nonspecific red spot in second portion of duodenum. 3. No active bleeding to the proximal jejunum. Assessment/Plan Assessment/Recommendations: Assessment: Ms. Corona is a 76 year old female with multiple medical problems including a recent hospitalization for symptomatic anemia who represents with a falling hgb, but no signs of overt GI bleeding. She underwent a push enteroscopy on her last hospitalization which was negative for active bleeding. She did have a moderate sized hiatal hernia, but no emiliano erosions and she also had a possible small AVM in the proximal small bowel, but I feel this is unlikely to be the source of her recurrent anemia based on its size and appearance. 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 The plan was for her to have a small bowel pill cam and I still feel that should be pursued, but as we don't have the pill cam equipment in the hospital this needs to be done as an outpatient. Other issues to be addressed are whether she has had full colonoscopy after the perforation she had a few years ago and how long she needs to be maintained on anticoagulation as I suspect the recurrent anemia will cease to be a problem if she is able to come off of this. Recommendations: 1. Follow CBC and transfuse as needed to keep hgb > 8 2. PO iron supplementation 3. Contact pts PCP to see if they have any other colonosocopy reports that may have been done elsewhere along with any other information concerning her DVT and need for rat exterminator anticoagulation. 4. Would give consideration to repeating an US with doppler of her upper extremity to assess for an active clot 5. Notify GI for signs of overt Gi bleeding 6. If not full colonoscopy was ever done after the initial one when she had a perforation would then give consideration to attempting to repeat that on this hospitalization if she is willing and currently she is not. 7. Will tentatively plan for an outpatient small bowel pill cam. I will continue to follow this patient and make further recommendations based on her clinical course, results of repeat blood work and any further history that may be obtained from her PCP. Problem List: 1. Rheumatoid arthritis 2. GI bleed 3. Acute blood loss anemia Copies To: Corrina Fortune MD Acknowledgment - Thank you for your consult request.
[2017-06-24 08:29] LABS: ABSOLUTE BASOPHIL COUNT 0 /CUMM (0.0-0.2); ABSOLUTE EOSINOPHIL COUNT 0 /CUMM (0.0-0.7); ABSOLUTE GRANULOCYTE CT 5.8 /CUMM (1.4-6.5); ABSOLUTE LYMPH COUNT 1.6 /CUMM (1.2-3.4); ABSOLUTE MONOCYTE COUNT 0.4 /CUMM (0.10-0.60); BASOPHIL % 0.5 % (0.0-2.0); EOSINOPHIL % 0 % (0-5); GRANULOCYTE % 74.1 % (42.2-75.2); HEMATOCRIT 23.6 % (37-47); MEAN CORPUSCULAR HGB 29.9 PG (27.0-31.0); MEAN CORPUSCULAR HGB CONC 33.2 G/DL (33.0-37.0); MEAN CORPUSCULAR VOLUME 90.2 FL (81.0-99.0); MEAN PLATELET VOLUME 8.7 FL (7.4-10.4); PLATELET COUNT 180 /CUMM (130-400); RBC DISTRIBUTION WIDTH 15.5 % (11.5-14.5); RED BLOOD CELL CT 2.62 /CUMM (4.20-5.40); WHITE BLOOD CELL COUNT 7.9 /CUMM (4.8-10.8)
--- NOTE | 2017-06-24 11:49 | Cons- Hematology ---
General Information and HPI Consulting Request Date of Consult: 06/24/17 Requested By: Ginger Griffiths MD Reason for Consult: Anemia Source of Information: patient, old records Exam Limitations: no limitations History of Present Illness: Ms. Corona is a 76-year-old female with CHF, COPD,Obesity, hypothyroidism, obstructive sleep apnea on CPAP, hypertension, small bowel AVM, colonic perforation secondary to colonoscopy status post colostomy and Emanuel's procedure, RA on hydroxychloroquine and prednisone, DVT on rivaroxaban, chronic kidney disease, and chronic anemia who presented to the hospital with shortness of breath and anemia. She was admitted in March 2017 for heart failure symptoms with bilateral pleural effusion and pneumonia. She was admitted in May 2017 with symptomatic anemia and was transfused with 3 units of packed RBC. She had upper endoscopy done and was negative for bleeding. She has had dark stool but attributes it to iron supplements. She denies any gross bleeding. She denies any new pain. She continues to be fatigued. On admission, have she was noted to have a hemoglobin of 6.7 with hematocrit of 20.6. MCV was 89.0. Her WBC and platelet count were normal. She was noted to have a creatinine of 2.4. Her bilirubin was normal. Her liver function was normal. LDH was normal. Serum protein was low at 4.7. Serum albumin is low at 2.2. B12 was normal. Folate was normal. She was given 1 unit of pRBC. Her hemoglobin and hematocrit has improved. She continues to have fatigue. She has decrease appetite. Allergies/Medications Allergies: Coded Allergies: Penicillins (SWELLING, RASH, ITCH 05/22/17) aspirin (RASH 05/22/17) cephalexin (From KEFLEX) (ITCHY 05/22/17) codeine (ITCH 05/22/17) levofloxacin (From LEVAQUIN) (RASH 05/22/17) oxaprozin (From DAYPRO) (RASH 05/22/17) propoxyphene (UNKNOWN REACTION TO DARVOCET 05/22/17) Home Med List: Butalb/Acetaminophen/Caffeine (Gprgno-Yegxcwhz-Eolc 50-325-40) 50 MG-325 MG-40 MG TABLET 1 TAB PO BID PRN migrain (Reported) Calcium Carbonate/Vitamin D3 (Os-Mehdi 500+D3 Caplet) 500 MG-200 TABLET 1 TAB PO DAILY SUPPLEMENT (Reported) Carvedilol 25 MG TABLET 1 TAB PO BID HEART/BP (Reported) Cyclobenzaprine HCl 5 MG TABLET 1 TAB PO TIDPRN PRN muscle spasms (Reported) Docusate Sodium 100 MG CAPSULE 1 CAP PO DAILY constipation (Reported) Ergocalciferol (Vitamin D2) (Vitamin D2) 50,000 UNIT CAPSULE 1 CAP PO QWED SUPPLEMENT (Reported) Ferrous Gluconate (Unknown Strength) TABLET (Unknown Dose) PO DAILY SUPPLEMENT (Reported) Furosemide (Lasix) 20 MG TABLET 1 TAB PO DAILY DIURETIC (Reported) Hydromorphone HCl (Dilaudid) 4 MG TABLET 0.5-1 TAB PO Q8P PRN PAIN (Reported) Hydroxychloroquine Sulfate 200 MG TABLET 1 TAB PO BID RA (Reported) Levothyroxine Sodium 25 MCG TABLET 1 TAB PO DAILY AC THYROID (Reported) Lisinopril 10 MG TABLET 1 TAB PO QAM BP (Reported) Metoclopramide HCl (Reglan) 10 MG TABLET 1 TAB PO TID for nausea (Reported) 30 minutes before meals and bedtime Omeprazole 20 MG TABLET.DR 1 TAB PO DAILY GI (Reported) Potassium Chloride (Klor-Con 10) (Unknown Strength) TABLET.ER (Unknown Dose) PO DAILY SUPPLEMENT (Reported) Prednisone 10 MG TABLET 1 TAB PO QAM STEROID (Reported) Rivaroxaban (Xarelto) 20 MG TABLET 1 TAB PO DAILY blood thinner (Reported) with food Sennosides/Docusate Sodium (Senna Plus Tablet) 8.6 MG-50 MG TABLET 1 TAB PO DAILY NEEDED PRN CONSTIPATION . Sertraline HCl 25 MG TABLET 1 TAB PO QAM MENTAL HEALTH (Reported) Current Medications: Current Medications Sig/Rick Start time Last Medication Dose Route Stop Time Status Admin Acetaminophen/ 1 TAB BID PRN 06/24 0015 AC Butalbital/Caffeine PO Carvedilol 25 MG BID 06/24 1000 AC 06/24 PO 0753 Ferrous Gluconate 325 MG DAILY 06/24 1000 AC 06/24 PO 0752 Furosemide 20 MG DAILY 06/24 1000 AC 06/24 PO 0752 Furosemide 0 .STK-MED ONE 06/23 1733 DC IV Furosemide 0 .STK-MED ONE 06/23 1731 DC IV Furosemide 20 MG ONCE ONE 06/23 1730 DC 06/23 IV 06/23 1731 1743 Hydromorphone HCl 2 MG Q8 PRN 06/24 0015 AC 06/24 PO 0052 Hydromorphone HCl 0 .STK-MED ONE 06/23 1732 DC PO Hydromorphone HCl 2 MG ONCE ONE 06/23 1730 DC 06/23 PO 06/23 1731 1743 Hydroxychloroquine 200 MG BID 06/24 1000 AC 06/24 Sulfate PO 0752 Levothyroxine Sodium 0.025 MG DAILY AC 06/24 0700 AC 06/24 PO 0539 Lisinopril 10 MG QAM 06/24 1000 CAN PO Omeprazole 20 MG DAILY AC 06/24 0700 CAN PO Pantoprazole Sodium 40 MG BID 06/24 1000 AC 06/24 IV 0753 Prednisone 10 MG QAM 06/24 1000 AC 06/24 PO 0752 Sertraline HCl 25 MG QAM 06/24 1000 CAN PO Review of Systems Review of Systems Constitutional: Reports: malaise, weakness. Denies: chills, fever. Cardiovascular: Denies: chest pain. Respiratory: Reports: short of breath. GI: Denies: melena, bloody stool. Skin: Denies: rash. Neurological/Psychological: Denies: anxiety. Hematologic/Endocrine: Denies: bruising, bleeding. All Other Systems: Reviewed and Negative Past History Travel History Traveled to [place] past 21 day No Medical History Blood Transfusion Hx: Yes Neurological: migraine EENT: cataracts Cardiovascular: CHF, hypertension, hyperlipidemia Respiratory: pneumonia, DYSPNEA Gastrointestinal: diverticulitis, HEMORRHOIDS BOWEL RESECTION COLOSTOMY Hepatic: NONE Renal: 3+PROTEIN IN URINE [id number] Musculoskeletal: rheumatoid arthritis Psychiatric: anxiety, depression, insomnia Endocrine: vitamin D deficiency Blood Disorders: anemia Cancer(s): NONE ASSIGNMENT EDITOR/Reproductive: NONE Surgical History Surgical History: colon resection, hysterectomy, laminectomy Family History Relations & Conditions If Any: Relation not specified for: *No pertinent family history Psychosocial History Services at Home: Servant Primary Language: Mongolian Smoking Status: Former Smoker Functional Ability Ambulation: cane IADLs Needs Assist: shopping, housework, food prep. Exam & Diagnostic Data Vital Signs and I&O Vital Signs Date Time Temp Pulse Resp B/P B/P Pulse O2 O2 Flow FiO2 Mean Ox Delivery Rate 06/24 0753 55 136/64 06/24 0649 98.8 57 18 122/56 94 Room Air 04/02 2232 98.9 87 16 138/56 94 Room Air 06/23 2222 94 Room Air 06/23 2121 97.8 62 18 138/76 96 Room Air 06/23 1744 Room Air 06/23 1743 98.0 62 18 142/66 94 Room Air 06/23 1455 96.7 61 18 111/53 96 Room Air Intake & Output 06/24 1600 04/ 0800 04 0000 Intake Total Output Total Balance Patient 71.384 kg Weight Weight Bed scale Measurement Method Physical Exam General Appearance: no apparent distress, alert, awake, comfortable Head: atraumatic, normal appearance Eyes: Bilateral: PERRL, EOMI. Ears, Nose, Throat: normal pharynx Neck: supple Respiratory: normal breath sounds, chest non-tender, quiet respiration Cardiovascular: regular rate/rhythm Gastrointestinal: normal bowel sounds, soft, tenderness (mild diffuse), LLQ colostomy Extremities: pedal edema (bilaterally) Neurologic/Psych: awake, alert, oriented x 3, slight flat affect Cranial Nerves: normal hearing, normal speech, PERRL Skin: normal color, warm/dry Lymphatic: no anterior cervical selin Last 48 Hours of Lab Results: Laboratory Tests 06/24 06/24 06/24 0615 0615 0503 Chemistry Sodium (137 - 145 mmol/L) 137 Potassium (3.5 - 5.1 mmol/L) 4.3 Chloride (98 - 107 mmol/L) 104 Carbon Dioxide (22 - 30 mmol/L) 24 Anion Gap (5 - 16) 9 BUN (7 - 17 mg/dL) 61 H Creatinine (0.5 - 1.0 mg/dL) 2.2 H Estimated GFR (>60 ml/min) 22 L BUN/Creatinine Ratio (7 - 25 %) 27.7 H Erythropoietin Pending Troponin I (< 0.11 ng/ml) 0.58 *H Hematology CBC w Diff NO MAN DIFF REQ WBC (4.8 - 10.8 /CUMM) 7.9 RBC (4.20 - 5.40 /CUMM) 2.62 L Hgb (12.0 - 16.0 G/DL) 7.8 L Hct (37 - 47 %) 23.6 L MCV (81.0 - 99.0 FL) 90.2 MCH (27.0 - 31.0 PG) 29.9 MCHC (33.0 - 37.0 G/DL) 33.2 RDW (11.5 - 14.5 %) 15.5 H Plt Count (130 - 400 /CUMM) 180 MPV (7.4 - 10.4 FL) 8.7 Gran % (42.2 - 75.2 %) 74.1 Lymphocytes % (20.5 - 51.1 %) 20.4 L Monocytes % (1.7 - 9.3 %) 5.0 Eosinophils % (0 - 5 %) 0 Basophils % (0.0 - 2.0 %) 0.5 Absolute Granulocytes (1.4 - 6.5 /CUMM) 5.8 Absolute Lymphocytes (1.2 - 3.4 /CUMM) 1.6 Absolute Monocytes (0.10 - 0.60 /CUMM) 0.4 Absolute Eosinophils (0.0 - 0.7 /CUMM) 0 Absolute Basophils (0.0 - 0.2 /CUMM) 0 06/24 06/23 06/23 0000 1644 1644 Chemistry Sodium (137 - 145 mmol/L) 135 L Potassium (3.5 - 5.1 mmol/L) 5.0 Chloride (98 - 107 mmol/L) 102 Carbon Dioxide (22 - 30 mmol/L) 25 Anion Gap (5 - 16) 8 BUN (7 - 17 mg/dL) 61 H Creatinine (0.5 - 1.0 mg/dL) 2.4 H Estimated GFR (>60 ml/min) 20 L BUN/Creatinine Ratio (7 - 25 %) 25.4 H Glucose (65 - 99 mg/dL) 115 H Calcium (8.4 - 10.2 mg/dL) 9.4 Iron (37 - 170 ug/dL) 15 L TIBC (265 - 497 ug/dL) 283 Ferritin (11.1 - 264 ng/mL) 43.8 Total Bilirubin (0.2 - 1.3 mg/dL) 0.2 AST (14 - 36 U/L) 15 ALT (9 - 52 U/L) 20 Alkaline Phosphatase (<127 U/L) 74 Lactate Dehydrogenase (313 - 618 U/L) 522 Troponin I (< 0.11 ng/ml) 0.57 *H 0.57 *H Qfi-A-Vhierhkmlaw Pept (<125 pg/mL) 8150 H Total Protein (6.3 - 8.2 g/dL) 4.7 L Albumin (3.5 - 5.0 g/dL) 2.2 L Globulin (1.9 - 4.2 gm/dL) 2.5 Albumin/Globulin Ratio (1.1 - 2.2 %) 0.9 L Vitamin B12 (239 - 931 pg/mL) 490 Folate (2.76 - 20.0 ng/mL) 10.1 Coagulation PT (9.4 - 12.5 SEC) 17.7 H INR (0.90 - 1.19) 1.62 H APTT (25 - 37 SEC) 33 Hematology CBC w Diff NO MAN DIFF REQ WBC (4.8 - 10.8 /CUMM) 8.2 RBC (4.20 - 5.40 /CUMM) 2.32 L Hgb (12.0 - 16.0 G/DL) 6.7 *L Hct (37 - 47 %) 20.6 L MCV (81.0 - 99.0 FL) 89.0 MCH (27.0 - 31.0 PG) 29.0 MCHC (33.0 - 37.0 G/DL) 32.6 L RDW (11.5 - 14.5 %) 16.0 H Plt Count (130 - 400 /CUMM) 192 MPV (7.4 - 10.4 FL) 8.6 Gran % (42.2 - 75.2 %) 90.1 H Lymphocytes % (20.5 - 51.1 %) 7.2 L Monocytes % (1.7 - 9.3 %) 2.4 Eosinophils % (0 - 5 %) 0 Basophils % (0.0 - 2.0 %) 0.3 Absolute Granulocytes (1.4 - 6.5 /CUMM) 7.4 H Absolute Lymphocytes (1.2 - 3.4 /CUMM) 0.6 L Absolute Monocytes (0.10 - 0.60 /CUMM) 0.2 Absolute Eosinophils (0.0 - 0.7 /CUMM) 0 Absolute Basophils (0.0 - 0.2 /CUMM) 0 Retic Count (0.5 - 2.0 %) 2.10 H Imaging/Other Studies: CXR 06/23/2017: Stable degree of vascular congestion. Slight interval increase in bilateral pleural effusions, right greater than left with associated airspace disease. Assessment/Plan Assessment: Ms. Corona is a 76-year-old female with CHF, COPD,Obesity, hypothyroidism, obstructive sleep apnea on CPAP, hypertension, small bowel AVM, colonic perforation secondary to colonoscopy status post colostomy and Emanuel's procedure, RA on hydroxychloroquine and prednisone, DVT on rivaroxaban, chronic kidney disease, and chronic anemia who presented to the hospital with shortness of breath and anemia. On admission she was noted to have a hemoglobin of 6.7 with hematocrit of 20.6. She was transfused 1 unit of packed RBC. Hemoglobin improved to 7.8 with hematocrit 23.6. Her blood work demonstrated serum iron 15 , TIBC of 283, and ferritin of 43.8. she was noted to have a creatinine of 2.4. Bilirubin was normal. LDH was normal. Reticulocyte is low at 2.1. Her vitamin B12 level was normal. Folate level was normal. Her thyroid function was normal during recent admission. She had recent upper endoscopy which demonstrated possible AVMs. She has been seen by Dr. Maier of Gastroenterology. he is concern for possible small-bowel AVMs which was exacerbated by her anticoagulation. Hematology was consulted for etiology of anemia. Her anemia is likely multifactorial. She has anemia chronic disease. She has anemia chronic inflammation. She has had rheumatoid arthritis and is currently on prednisone and hydroxychloroquine. 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 Hydroxychloroquine was suppressed bone marrow. She has concern for GI bleeding. The acute drop may be related to GI bleeding. She also has chronic kidney disease which has worsened. This will also caused her to have a hypoproliferative anemia. Given her renal disease and anemia, it may be reasonable to workup for underlying monoclonal gammopathy. SPEP and UPEP may be sent. She may be treated symptomatically. She very treated with transfusion as needed. She should have further workup for gastrointestinal bleeding as per GI. She may be a candidate for ENRIQUETA given her anemia chronic disease and chronic kidney disease. She should have follow-up with Nephrology. She states she had a LLE DVT after being hospitalized 2-3 months ago. It occurred at the time of her discharge. If she had a provoked DVT, anticoagulation may potential be discontinued after 3 months. She may need to have repeat US of the lower extremity. Recommendations: Symptomatic anemia: -send for SPEP and UPEP -gastrointestinal bleeding workup as per GI -continue with oral iron supplementation -follow up with Nephrology and consideration for ENRIQUETA -transfusion as needed DVT: -obtain records from outside hospital regarding diagnosis -continue anticoagulation if no longer bleeding -may consider discontinuation if provoked DVT and >3 months of therapy (weigh risk vs benefit) -if going off anticoagulation, would consider repeating US of the lower extremity Problem List: 1. Acute blood loss anemia 2. Symptomatic anemia 3. CHF (congestive heart failure) 4. Chronic anemia 5. Chronic kidney disease 6. Rheumatoid arthritis Other Findings/Comments: Please call [phone] with any questions or concern. Consult Acknowledgment - Thank you for your consult request.
[2017-06-24 15:41] VITALS: BP 128/60; BP 144/90
--- NOTE | 2017-06-24 21:30 | Cons- Cardiology ---
General Information and HPI Consulting Request Date of Consult: 06/24/17 Requested By: Ginger Griffiths MD History of Present Illness: Rama is a 76 year old female with history of hypertension, obstructive sleep apnea on CPAP, DVT on Xarelto and small bowel AVM with GI bleed. She was recently admitted with symptoms of heart failure and pneumonia. The patient was readmitted with weakness and fatigue and shortness of breath. She was discovered to be severely anemic. Her renal function was also decreased beyond baseline. The patient denies chest discomfort but does have intermittent lightheadedness which is not a prominent symptom. Her troponin is consistently found to be elevated. The patient's latest echocardiogram shows a normal EF but restrictive hemodynamics. The patient also has mild to moderate MR, mild TR and moderate aortic insufficiency. Allergies/Medications Allergies: Coded Allergies: Penicillins (SWELLING, RASH, ITCH 05/22/17) aspirin (RASH 05/22/17) cephalexin (From KEFLEX) (ITCHY 05/22/17) codeine (ITCH 05/22/17) levofloxacin (From LEVAQUIN) (RASH 05/22/17) oxaprozin (From DAYPRO) (RASH 05/22/17) propoxyphene (UNKNOWN REACTION TO DARVOCET 05/22/17) Home Med List: Butalb/Acetaminophen/Caffeine (Kbrghb-Jcvwpzrb-Ipnr 50-325-40) 50 MG-325 MG-40 MG TABLET 1 TAB PO BID PRN migrain (Reported) Calcium Carbonate/Vitamin D3 (Os-Mehdi 500+D3 Caplet) 500 MG-200 TABLET 1 TAB PO DAILY SUPPLEMENT (Reported) Carvedilol 25 MG TABLET 1 TAB PO BID HEART/BP (Reported) Cyclobenzaprine HCl 5 MG TABLET 1 TAB PO TIDPRN PRN muscle spasms (Reported) Docusate Sodium 100 MG CAPSULE 1 CAP PO DAILY constipation (Reported) Ergocalciferol (Vitamin D2) (Vitamin D2) 50,000 UNIT CAPSULE 1 CAP PO QWED SUPPLEMENT (Reported) Ferrous Gluconate (Unknown Strength) TABLET (Unknown Dose) PO DAILY SUPPLEMENT (Reported) Furosemide (Lasix) 20 MG TABLET 1 TAB PO DAILY DIURETIC (Reported) Hydromorphone HCl (Dilaudid) 4 MG TABLET 0.5-1 TAB PO Q8P PRN PAIN (Reported) Hydroxychloroquine Sulfate 200 MG TABLET 1 TAB PO BID RA (Reported) Levothyroxine Sodium 25 MCG TABLET 1 TAB PO DAILY AC THYROID (Reported) Lisinopril 10 MG TABLET 1 TAB PO QAM BP (Reported) Metoclopramide HCl (Reglan) 10 MG TABLET 1 TAB PO TID for nausea (Reported) 30 minutes before meals and bedtime Omeprazole 20 MG TABLET.DR 1 TAB PO DAILY GI (Reported) Potassium Chloride (Klor-Con 10) (Unknown Strength) TABLET.ER (Unknown Dose) PO DAILY SUPPLEMENT (Reported) Prednisone 10 MG TABLET 1 TAB PO QAM STEROID (Reported) Rivaroxaban (Xarelto) 20 MG TABLET 1 TAB PO DAILY blood thinner (Reported) with food Sennosides/Docusate Sodium (Senna Plus Tablet) 8.6 MG-50 MG TABLET 1 TAB PO DAILY NEEDED PRN CONSTIPATION . Sertraline HCl 25 MG TABLET 1 TAB PO QAM MENTAL HEALTH (Reported) Review of Systems Review of Systems: A review of systems is unremarkable. Past History Travel History Traveled to [place] past 21 day No Medical History Blood Transfusion Hx: Yes Neurological: migraine EENT: cataracts Cardiovascular: CHF, hypertension, hyperlipidemia Respiratory: pneumonia, DYSPNEA Gastrointestinal: diverticulitis, HEMORRHOIDS BOWEL RESECTION COLOSTOMY Hepatic: NONE Renal: 3+PROTEIN IN URINE [id number] Musculoskeletal: rheumatoid arthritis Psychiatric: anxiety, depression, insomnia Endocrine: vitamin D deficiency Blood Disorders: anemia Cancer(s): NONE LACE WINDER/Reproductive: NONE Surgical History Surgical History: colon resection, hysterectomy, laminectomy Family History Relations & Conditions If Any: Relation not specified for: *No pertinent family history Psychosocial History Services at Home: Servant Primary Language: Canadian Smoking Status: Former Smoker Functional Ability Ambulation: cane IADLs Needs Assist: shopping, housework, food prep. Exam & Diagnostic Data Vital Signs and I&O Vital Signs Date Time Temp Pulse Resp B/P B/P Pulse O2 O2 Flow FiO2 Mean Ox Delivery Rate 06/24 1541 98.3 53 18 128/60 93 06/24 0753 55 136/64 06/24 0649 98.8 57 18 122/56 94 Room Air 06/23 2232 98.9 87 16 138/56 94 Room Air 06/23 2222 94 Room Air 06/23 2121 97.8 62 18 138/76 96 Room Air Intake & Output 06/24 1600 06/24 0800 06/24 0000 06/23 1600 06/23 0800 06/23 0000 Intake Total Output Total 601 Balance -601 Output, Stool 1 Output, Urine 600 Patient 157 lb 150 lb Weight Weight Bed scale Reported by Patient Measurement Method Physical Exam: General: WD/overweight female in NAD; alert and oriented x 3 HEENT: NC/AT, PERRL, EOMI Neck: no JVD, no carotid bruit Heart: RRR with 2/6 systolic murmur Lungs: clear bilaterally ABdomen: soft, NT, +ve bowel sounds with colostomy Extremities: 2+ leg edema Assessment/Plan Assessment/Plan * This patient has restrictive heart disease as noted on her echocardiogram which has contributed to her issues with left and right heart failure. Severe anemia will lead to tachycardia and a hyperdynamic state that will increase intracardiac pressures and worsen heart failure. Coronary artery disease may also contribute to decreased myocardial compliance and I strongly suspect myocarcial ischemia. This is manifesting as repeated elevations of cardiac troponin. This patient will need an eventual cardiac catheterization with revascularization. For now add NTG paste 1/2 inch Q 6 hours and continue her beta miranda. * This patient needs a complete anemia workup and needs to transfused to an H/H of about 01/18. She may need erythropoietin. Consult Acknowledgment - Thank you for your consult request.
--- NOTE | 2017-06-24 22:19 | ULTRASOUND REPORT ---
EXAMINATION: US TRIPLEX OF LOWER EXTREMITIES, BILATERAL CLINICAL INFORMATION: Bilateral lower extremity pain and edema. COMPARISON: None TECHNIQUE: Color-flow triplex imaging with spectral analysis and compression Doppler were performed on the lower extremities. FINDINGS: Respiratory variation, normal compression and augmented flow are noted throughout the lower extremities. The visualized common femoral vein, superficial femoral vein, profunda femoral vein, popliteal vein and midcalf peroneal and posterior tibial venous segments show no evidence of deep venous thrombosis. There is no Daley's cyst. IMPRESSION: Normal triplex scan without evidence of deep venous thrombosis involving the lower extremities.
[2017-06-24 23:07] LABS: ABSOLUTE BASOPHIL COUNT 0.1 /CUMM (0.0-0.2); ABSOLUTE EOSINOPHIL COUNT 0 /CUMM (0.0-0.7); ABSOLUTE LYMPH COUNT 1.3 /CUMM (1.2-3.4); ABSOLUTE MONOCYTE COUNT 0.3 /CUMM (0.10-0.60); BASOPHIL % 0.8 % (0.0-2.0); EOSINOPHIL % 0.1 % (0-5); GRANULOCYTE % 78.5 % (42.2-75.2); HEMATOCRIT 27.3 % (37-47); MEAN CORPUSCULAR HGB 29.8 PG (27.0-31.0); MEAN CORPUSCULAR VOLUME 90.5 FL (81.0-99.0); MEAN PLATELET VOLUME 8.5 FL (7.4-10.4); PLATELET COUNT 184 /CUMM (130-400); RBC DISTRIBUTION WIDTH 14.9 % (11.5-14.5); RED BLOOD CELL CT 3.01 /CUMM (4.20-5.40); WHITE BLOOD CELL COUNT 7.7 /CUMM (4.8-10.8)
[2017-06-24 23:52] VITALS: BP 142/60
[2017-06-24 23:53] VITALS: BP 128/62
[2017-06-25 06:36] VITALS: BP 120/70
--- NOTE | 2017-06-25 07:43 | PN- Housestaff ---
[facility] 0742: Subjective Follow-up For: TYPE 2 [place] Acute on chronic kidney injury(improving) Symptomatic anemia(improving) Tele-Events Since Last Visit: Sinus rhythm with heart rate 5358 Subjective: No overnight events. Patient remained afebrile. Seen and examined this morning. She denied any chest pain, short of breath, nausea, vomiting, chills, fever, abdominal pain and dysuria. Patient reported having weakness and also having chronic neck pain that's 6/10. Patient was feeling nauseous after the needle prick for blood draw. Review of Systems Constitutional: Reports: weakness. EENTM: Reports: see HPI. Cardiovascular: Reports: no symptoms. Respiratory: Reports: no symptoms. Gastrointestinal: Reports: no symptoms. Genitourinary: Reports: no symptoms. Musculoskeletal: Reports: neck pain. Neurological/Psychological: Reports: headache. Objective Last 24 Hrs of Vital Signs/I&O Vital Signs Date Time Temp Pulse Resp B/P B/P Pulse O2 O2 Flow FiO2 Mean Ox Delivery Rate 06/25 0636 97.2 52 20 120/70 95 06/24 2353 98.2 59 16 128/62 94 Room Air 06/24 2240 61 128/62 06/24 1541 98.3 53 18 128/60 93 Intake & Output 06/25 1600 06/25 0800 06/25 0000 Intake Total 250 Output Total 375 Balance -125 Intake, Oral 250 Number 2 Bowel Movements Output, Urine 375 Physical Exam General Appearance: Alert, Oriented X3, Cooperative Skin: No Rashes Skin Temp/Moisture Exam: Warm/Dry Sepsis Skin Exam (color): Normal for Ethnicity HEENT: Atraumatic, PERRLA, EOMI Neck: Supple Cardiovascular: Normal S1, Normal S2 Lungs: Clear to Auscultation, Decreased breath sounds b/l Abdomen: Soft, No Tenderness Neurological: Normal Speech, Normal Tone Extremities: B/L pedal edema Assessment/Plan Assessment: 76F PMH HTN, HFpEF, history of DVT on Xarelto, history of anemia, TACO on CPAP, anxiety, depression, rheumatoid arthritis, history of colonic perfusion s/p colostomy, hypothyroidism admitted for symptomatic anemia requiring transfusion, dyspnea with minimal exertion, and weakness. Following the patient on telemetry floor for the following problems: Symptomatic anemia: -Probably multifactorial considering her GI AV malformation, chronic kidney injury. -Ferritin is normal and total iron-binding capacity is also normal -Patient received two units of blood and her Hb has improved to 9.5 -Her reticulocyte count is low -Her erythropoietin level 24.0 -Continue supplemental iron. -Follow GI recommendation -Follow hematology recommendations. Acute on chronic kidney injury:(IMPROVING) -Probably due to dehydration -We will monitor input and output -Avoid nephrotoxins medications, NSAIDs -We will encourage patient to take more oral fluids Type II [place]: -Probably due to restrictive heart disease and anemia. Anemia causing her tachycardia and hyperdynamic state. -No EKG changes -Continue NTG paste and carvedalol. -We will follow cardiology recommendations Rheumatoid arthritis -Continue hydroxychloroquine 200mg PO BID -Continue chronic steroids prednisone 10mg daily History of hypothyroidism: -Continue levothyroxine History of DVT: -Patient was on xeralto that was stopped because of anemia. History of hypertension: -Continue home medications History of colonic perforation status post colostomy: -Patient has Emanuel procedure due to colonic perforation -Her colostomy is working History of diastolic CHF: -Continue home medications -We will follow cardiology recommendations. DVT prophylaxis: Mechanical and subcutaneous heparin CODE STATUS: DNR/DNI Problem List: 1. Wqzxl-zh-bwsaqfw kidney injury 2. Symptomatic anemia 3. Elevated troponin Pain Ratin Pain Location: Neck pain Pain Goal: Pain 4 or less Pain Plan: pain pathway Tomorrow's Labs & Rationales: cbc Ginger Griffiths MD 06/25/17 1139: Attending MD Review Statement Attending Statement Attending MD Statement: examined this patient, discuss w/resident/PA/ELECTRONIC WARFARE TECHNICIAN, agreed w/resident/PA/ELECTRONIC WARFARE TECHNICIAN, reviewed EMR data (avail) Attending Assessment/Plan: 76F PMH HTN, HFpEF, history of DVT on Xarelto, history of anemia, TACO on CPAP, anxiety, depression, rheumatoid arthritis, history of colonic perfusion s/p colostomy, hypothyroidism admitted for symptomatic anemia requiring transfusion, dyspnea with minimal exertion, and weakness. Recently admitted for similar 1 month ago, had push enteroscopy which did not show source of bleeding. Has deteriorated since and Hgb was down to 6.7 on admission. No signs of bleeding, no melena, bloody stools, hematuria, or vaginal bleeding. On Xarelto at home for DVT in July 2016 at [facility], held here due to anemia. Labs show iron deficiency anemia with relatively low reticulocyte count and normal MCV. EKG was NSR, troponin 0.58 (similar to level at discharge 1 month ago). Given 1 unit pRBC. Today patient appears clinically worse. She reports fatigue and bilateral foot pain. There is worsening edema of b/l lower extremities. Her goal is to be able to go home and stay there. 1. Symptomatic anemia 2. Dyspnea on exertion 3. History of DVT 4. Type 2 myocardial infarction Plan - Continue on telemetry - Monitor CBC daily - Iron supplementation - Obtain records from [facility] regarding the nature of her DVT to see if Xarelto can be stopped - Follow hematology, GI, cardiology consults - Transfuse to Hgb>8 - Continue Lasix, as patient continues to have b/l LE edema, will give 40mg IV today and monitor - Continue home medications - DVT PPx with ALPS, will hold Xarelto for now until records from [facility] can be obtained - Follow up EPO level and MM labs
[2017-06-25 08:03] LABS: ABSOLUTE BASOPHIL COUNT 0 /CUMM (0.0-0.2); ABSOLUTE EOSINOPHIL COUNT 0.1 /CUMM (0.0-0.7); ABSOLUTE GRANULOCYTE CT 5.3 /CUMM (1.4-6.5); ABSOLUTE LYMPH COUNT 1.7 /CUMM (1.2-3.4); ABSOLUTE MONOCYTE COUNT 0.5 /CUMM (0.10-0.60); BASOPHIL % 0.4 % (0.0-2.0); EOSINOPHIL % 0.9 % (0-5); GRANULOCYTE % 70.1 % (42.2-75.2); HEMATOCRIT 28.9 % (37-47); MEAN CORPUSCULAR HGB 29.8 PG (27.0-31.0); MEAN CORPUSCULAR HGB CONC 32.9 G/DL (33.0-37.0); MEAN CORPUSCULAR VOLUME 90.5 FL (81.0-99.0); MEAN PLATELET VOLUME 8.4 FL (7.4-10.4); PLATELET COUNT 181 /CUMM (130-400); RBC DISTRIBUTION WIDTH 15.7 % (11.5-14.5); WHITE BLOOD CELL COUNT 7.5 /CUMM (4.8-10.8)
--- NOTE | 2017-06-25 09:46 | PN- Hematology ---
Subjective Subjective: She feels more tired today. She denies any new pain. Review of Systems Constitutional: Reports: malaise. Denies: chills, fever. Cardiovascular: Denies: chest pain. Gastrointestinal: Denies: abdominal pain. Musculoskeletal: Denies: back pain. Neurological/Psychological: Denies: cognitive dysfunction. Hematologic/Endocrine: Denies: bruising, bleeding. All Other Systems: Reviewed and Negative Objective Vital Signs and I&Os Vital Signs Date Time Temp Pulse Resp B/P B/P Pulse O2 O2 Flow FiO2 Mean Ox Delivery Rate 06/25 0933 120/70 06/25 0636 97.2 52 20 120/70 95 /03 2353 98.2 59 16 128/62 94 Room Air 06/24 2240 61 128/62 06/24 1541 98.3 53 18 128/60 93 Intake & Output 06/25 1600 06/25 0800 06/25 0000 06/24 1600 06/24 0800 06/24 0000 Intake Total 250 Output Total 375 601 Balance -125 -601 Intake, Oral 250 Number 2 Bowel Movements Output, Stool 1 Output, Urine 375 600 Patient 71.384 kg Weight Weight Bed scale Measurement Method Physical Exam: General Appearance: no apparent distress, alert, awake, comfortable Head: atraumatic, normal appearance Eyes: Bilateral: PERRL, EOMI. Ears, Nose, Throat: normal pharynx Neck: supple Respiratory: normal breath sounds, chest non-tender, quiet respiration Cardiovascular: regular rate/rhythm Gastrointestinal: normal bowel sounds, soft, tenderness (mild diffuse), LLQ colostomy Extremities: pedal edema (bilaterally) Neurologic/Psych: awake, alert, oriented x 3, slight flat affect Cranial Nerves: normal hearing, normal speech, PERRL Skin: normal color, warm/dry Lymphatic: no anterior cervical selin Current Medications: Current Medications Sig/Rick Start time Last Medication Dose Route Stop Time Status Admin Acetaminophen 650 MG ONCE ONE 06/25 0600 DC 06/25 PO 06/25 0601 0559 Acetaminophen/ 1 TAB BID PRN 06/24 0015 AC Butalbital/Caffeine PO Carvedilol 25 MG BID 06/24 1000 AC 06/25 PO 0933 Ferrous Gluconate 325 MG DAILY 06/24 1000 AC 06/25 PO 0933 Furosemide 20 MG ONCE ONE 06/24 1530 DC 06/24 IV 06/24 1531 1858 Furosemide 20 MG DAILY 06/24 1000 AC 06/25 PO 0933 Heparin Sodium 5,000 UNIT Q8 06/24 1615 AC 06/25 (Porcine) SC 0558 Hydromorphone HCl 2 MG Q8 PRN 06/24 0015 AC 06/24 PO 2239 Hydroxychloroquine 200 MG BID 06/24 1000 AC 06/25 Sulfate PO 0933 Levothyroxine Sodium 0.025 MG DAILY AC 06/24 0700 AC 06/25 PO 0559 Nitroglycerin 0.5 GM Q6 06/25 0630 AC 06/25 TOP 0933 Pantoprazole Sodium 40 MG BID 06/24 1000 AC 06/25 IV 0933 Patient Medication 1 ED ONE ONE 06/24 1445 DC Teaching ED 06/24 1446 Prednisone 10 MG QAM 06/24 1000 AC 06/25 PO 0933 Results Last 24 Hours of Lab Results: Laboratory Tests 06/25 06/24 0717 2242 Chemistry Sodium (137 - 145 mmol/L) 138 Potassium (3.5 - 5.1 mmol/L) 4.4 Chloride (98 - 107 mmol/L) 104 Carbon Dioxide (22 - 30 mmol/L) 25 Anion Gap (5 - 16) 9 BUN (7 - 17 mg/dL) 58 H Creatinine (0.5 - 1.0 mg/dL) 2.0 H Estimated GFR (>60 ml/min) 24 L BUN/Creatinine Ratio (7 - 25 %) 29.0 H Hematology CBC w Diff NO MAN DIFF REQ NO MAN DIFF REQ WBC (4.8 - 10.8 /CUMM) 7.5 7.7 RBC (4.20 - 5.40 /CUMM) 3.20 L 3.01 L Hgb (12.0 - 16.0 G/DL) 9.5 L 9.0 L Hct (37 - 47 %) 28.9 L 27.3 L MCV (81.0 - 99.0 FL) 90.5 90.5 MCH (27.0 - 31.0 PG) 29.8 29.8 MCHC (33.0 - 37.0 G/DL) 32.9 L 33.0 RDW (11.5 - 14.5 %) 15.7 H 14.9 H Plt Count (130 - 400 /CUMM) 181 184 MPV (7.4 - 10.4 FL) 8.4 8.5 Gran % (42.2 - 75.2 %) 70.1 78.5 H Lymphocytes % (20.5 - 51.1 %) 21.9 16.3 L Monocytes % (1.7 - 9.3 %) 6.7 4.3 Eosinophils % (0 - 5 %) 0.9 0.1 Basophils % (0.0 - 2.0 %) 0.4 0.8 Absolute Granulocytes (1.4 - 6.5 /CUMM) 5.3 6.0 Absolute Lymphocytes (1.2 - 3.4 /CUMM) 1.7 1.3 Absolute Monocytes (0.10 - 0.60 /CUMM) 0.5 0.3 Absolute Eosinophils (0.0 - 0.7 /CUMM) 0.1 0 Absolute Basophils (0.0 - 0.2 /CUMM) 0 0.1 06/24 06/24 06/24 06/24 1759 1516 1428 1420 Chemistry Troponin I (< 0.11 ng/ml) 0.53 *H Prot Electrophoresis Pending Total Protein (PEP) Pending Albumin % (PEP) Pending Trfhh-1-Xwafmihsh Pending Zzynv-3-Cmhjsdhkk Pending Tjua-9-Htrvagvs Pending Ygvz-9-Bfdvwlpd Pending Gamma Globulins Pending Abnorm Protein Band 1 Pending Abnorm Protein Band 2 Pending Abnorm Protein Band 3 Pending Miscellaneous Ref Lab Test Result Pending Urines Ur Creatinine 24 Hour Cancelled Ur Total Protein 24 Hr Cancelled Protein/Creat Ratio 24h Cancelled U Protein Electrophores Cancelled Urine Albumin (%) Cancelled U Xwmwj-2-Vypqljjx Cancelled U Arfbq-6-Gxfnfbjp Cancelled U Beta Globulin Cancelled U Gamma Globulin Cancelled U Abnormal Prot Band 1 Cancelled U Abnormal Prot Band 2 Cancelled U Abnormal Prot Band 3 Cancelled Recent Imaging Studies: Venous doppler study 06/24/2017: Normal triplex scan without evidence of deep venous thrombosis involving the lower extremities. Assessment/Plan Hematology Assessment/Recommendations: Ms. Corona is a 76-year-old female with CHF, COPD,Obesity, hypothyroidism, obstructive sleep apnea on CPAP, hypertension, small bowel AVM, colonic perforation secondary to colonoscopy status post colostomy and Emanuel's procedure, RA on hydroxychloroquine and prednisone, DVT on rivaroxaban, chronic kidney disease, and chronic anemia who presented to the hospital with shortness of breath and anemia. On admission, she was noted to have a hemoglobin of 6.7 with hematocrit of 20.6. She was transfused 1 unit of packed RBC. Hemoglobin improved to 7.8 with hematocrit 23.6. Her blood work demonstrated serum iron 15 , TIBC of 283, and ferritin of 43.8. she was noted to have a creatinine of 2.4. Bilirubin was normal. LDH was normal. Reticulocyte is low at 2.1. Her vitamin B12 level was normal. Folate level was normal. Her thyroid function was normal during recent admission. She had recent upper endoscopy which demonstrated possible AVMs. She has been seen by Dr. Maier of Gastroenterology. he is concern for possible small-bowel AVMs which was exacerbated by her anticoagulation. She was given 1 more unit of pRBC yesterday. Hemoglobin has increased today. Her anemia is likely multifactorial. She has anemia chronic disease. She has RA and on hydroxychloroquine. She also has chronic kidney disease which has worsened. She has possible GI bleeding with small bowel AVMs. SPEP and UPEP to be sent and pending. US of the lower extremity is normal. Records will be need to evaluate history of her DVT. Recommendations: Symptomatic anemia: -SPEP and UPEP -gastrointestinal bleeding workup as per GI -continue with oral iron supplementation -follow up with Nephrology and consideration for ENRIQUETA -transfusion as needed DVT: -obtain records from outside hospital regarding diagnosis -continue anticoagulation if no longer bleeding -may consider discontinuation if provoked DVT and >3 months of therapy (weigh risk vs benefit) Please call [phone] with any questions or concerns. Problem List: 1. Cibgs-wa-ddvnglq kidney injury 2. DVT complicating 3. Acute blood loss anemia 4. GI bleed 5. CHF (congestive heart failure) 6. Chronic kidney disease
[2017-06-25 14:05] VITALS: BP 120/60
--- NOTE | 2017-06-25 14:26 | Discharge Summary ---
See Addendum Visit Information Visit Dates Admission Date: 06/23/17 Discharge Date: 07/02/17 Hospital Course Course Attending Physician: Ginger Griffiths MD Primary Care Physician: Tong CURTIS,[facility] Course: 76F PMH HTN, HFpEF, history of DVT on Xarelto, history of anemia, TACO on CPAP, anxiety, depression, rheumatoid arthritis, history of colonic perfusion s/p colostomy, hypothyroidism admitted for symptomatic anemia requiring transfusion, dyspnea with minimal exertion, and weakness. ED course: Vitals: Temperature 96.7, pulse 61, respiratory rate 18, blood pressure 111/53, oxygen saturation 96% on room air. Labs: WBC count 8.2, hemoglobin 6.7, hematocrit 20.6, platelet count 192, sodium 135, potassium 5.0, BUN 61, creatinine 2.4, BUNs/creatinine ratio 25.4, glucose 115, calcium 9.4, total bilirubin 0.2, AST 15, ALT 20, troponin 0.57, INR 1.67 Symptomatic anemia: Patient was admitted with symptomatic anemia presented with exertional dyspnea and weakness. Her anemia was possibly multifactorial considering her chronic kidney injury, rheumatoid arthritis medications, anticoagulation and GI loss. During hospital stay GI and hematology consults were obtained. Recommendations were followed. As there was no signs of overt GI bleeding GI recommended to follow the patient as outpatient for pill cam for further evaluation. Patient was given 2 blood transfusions to keep her Hb more than 8 considering her extensive cardiac history. As patient's ferritin and total iron binding capacity were normal and erythropoietin level was high so it could be anemia of chronic disease or her bone marrow is not responding to it considering patient's low reticulocyte count. Patient was given IV iron infusion inpatient. Iron supplementation was continued and patient was instructed to follow GI and hematology as outpatient for further recommendations. Acute on chronic kidney injury: Patient presented with acute on chronic kidney injury possibly due to dehydration. Gentle IV hydration was done. Nephrotoxic medications were provided and daily IOP was done. Later on patient's creatinine level went back close to baseline. Type II [place]: Probably due to restrictive heart disease and anemia. Anemia causing her tachycardia and hyperdynamic state. Her troponin levels were trended (0.57 to 0.53). There were no evolving EKG changes. Cardiology consult was obtained and recommendations were followed. Patient was started on nitroglycerin paste and her carvedilol was continued. Cardiology recommended cardiac catheterization for which she is being transferred to [facility]. History of rheumatoid arthritis We spoke to email marketing intern and discussed to discontinue hydrochloroquine that may cause her bone marrow suppression and to email marketing intern agreed failure. Continued her prednisone for RA. History of hypothyroidism: Continued levothyroxine. History of DVT: Patient was on xeralto that was stopped because of anemia. We had a discussion with patient about risks and benefit for restarting Xeralto and the possible insertion of IVC filter. Based on discussion patient the is agreeable to not restarting Xeralto. She understands that there is a risk of recurrence of DVT while not on Xeralto. History of hypertension: Continued home medications. History of colonic perforation status post colostomy: Patient had a colostomy after Constance procedure that was done due to chronic perforation. History of diastolic CHF: Considering patient's chronic leg swelling due to diastolic heart failure, her po Lasix was continued. During hospital stay she was also given extra doses of IV Lasix to get rid of fluid. Rest of her home medications were continued. Patient was also instructed to elevate her legs and leg wraps to decrease the swelling. DVT prophylaxis: Mechanical and subcutaneous heparin CODE STATUS: DNR/DNI Allergies: Coded Allergies: Penicillins (SWELLING, RASH, ITCH 05/22/17) aspirin (RASH 05/22/17) cephalexin (From KEFLEX) (ITCHY 05/22/17) chocolate flavor (HEADACHE/MIGRAINE 07/01/17) codeine (ITCH 05/22/17) levofloxacin (From LEVAQUIN) (RASH 05/22/17) oxaprozin (From DAYPRO) (RASH 05/22/17) propoxyphene (UNKNOWN REACTION TO DARVOCET 05/22/17) Pertinent Lab Results: Chest x-ray on 06/23/17: IMPRESSION: Stable degree of vascular congestion. Slight interval increase in bilateral pleural effusions, right greater than left with associated airspace disease. Venous Doppler lower extremity on 06/24/2017: IMPRESSION: Normal triplex scan without evidence of deep venous thrombosis involving the lower extremities. WBC count 7.1, hemoglobin 9.5, hematocrit 28.8, platelet count 186, reticulocyte count 2.10, 1.71, sodium 139, potassium 4.2, BUN 43, creatinine 2.0, BUNs/ creatinine ratio 21.5, total serum iron 205, total iron binding capacity 236, ferritin 401.0, INR 1.62 Disposition Summary Disposition Principal Diagnosis: Symptomatic anemia Acute on chronic kidney injury Type II [place] Additional Diagnosis: History of rheumatoid arthritis History of hypertension History of DVT History of hypothyroidism History of diastolic CHF Discharge Disposition: home health services Discharge Instructions General Discharge Information Code Status: Do Not Resucitate/Intubat Patient's Diet: Heart healthy diet Patient's Activity: Self-limited Follow-Up Instructions/Appts: Follow-up with your primary care physician in one week. Follow-up with your fretted instrument repairer in 1 week. Follow-up with gastroenterology in 1 week and discuss about outpatient PillCam to rule out any GI bleeding. Follow up with hematology in 1 week. Medications at Discharge Discharge Medications: Stop taking the following medications: Hydroxychloroquine Sulfate (Hydroxychloroquine Sulfate) 200 MG TABLET ORAL TWICE DAILY Qty = 30 Hydromorphone HCl (Dilaudid) 4 MG TABLET ORAL EVERY 8 HOURS NEEDED as needed for PAIN Rivaroxaban (Xarelto) 20 MG TABLET ORAL DAILY Rivaroxaban (Xarelto) 20 MG TABLET ORAL 0900 Qty = 10 Fenofibrate,Micronized (Fenofibrate) 200 MG CAPSULE ORAL DAILY Calcium Carbonate/Vitamin D3 (Oyster Shell Calcium + D Tab) 500 MG-200 TABLET ORAL DAILY Continue taking these medications: Levothyroxine Sodium (Levothyroxine Sodium) 25 MCG TABLET 1 Tablet ORAL DAILY BEFORE BREAKFAST Qty = 30 Comments: Last Taken:05/29/17 Time:06 Lisinopril (Lisinopril) 10 MG TABLET 1 Tablet ORAL Every Morning Qty = 30 Comments: Last Taken:05/29/17 Time:825 Sertraline HCl (Sertraline HCl) 25 MG TABLET 1 Tablet ORAL Every Morning Qty = 30 Comments: Last Taken:05/29/17 Time:825 Prednisone (Prednisone) 10 MG TABLET 1 Tablet ORAL Every Morning Qty = 30 Comments: Last Taken:05/29/17 Time:825 Carvedilol (Carvedilol) 25 MG TABLET 1 Tablet ORAL TWICE DAILY Qty = 60 Comments: NOT GIVEN Ergocalciferol (Vitamin D2) (Vitamin D2) 50,000 UNIT CAPSULE 1 Capsule ORAL EVERY FRIDAY Qty = 12 Comments: NOT GIVEN Calcium Carbonate/Vitamin D3 (Os-Mehdi 500+D3 Caplet) 500 MG-200 TABLET 1 Tablet ORAL DAILY Comments: NOT GIVEN Sennosides/Docusate Sodium (Senna Plus Tablet) 8.6 MG-50 MG TABLET 1 Tablet ORAL DAILY NEEDED as needed for CONSTIPATION Qty = 30 Instructions: . Comments: Last Taken:05/28/17 Time:2053 Ferrous Gluconate (Ferrous Gluconate) (Unknown Strength) TABLET Unknown Dose ORAL DAILY Comments: 325 MG LAST GIVEN 05/29/17825 Omeprazole (Omeprazole) 20 MG TABLET.DR 1 Tablet ORAL DAILY Comments: Last Taken:05/29/17 Time:614 Furosemide (Lasix) 20 MG TABLET 1 Tablet ORAL DAILY Comments: Last Taken:05/29/17 Time:825 Potassium Chloride (Klor-Con 10) (Unknown Strength) TABLET.ER Unknown Dose ORAL DAILY Comments: NOT GIVEN Metoclopramide HCl (Reglan) 10 MG TABLET 1 Tablet ORAL THREE TIMES DAILY Instructions: 30 minutes before meals and bedtime Butalb/Acetaminophen/Caffeine (Csknoy-Vfzwvysa-Phmb 50-325-40) 50 MG-325 MG-40 MG TABLET 1 Tablet ORAL TWICE DAILY as needed for migrain Cyclobenzaprine HCl (Cyclobenzaprine HCl) 5 MG TABLET 1 Tablet ORAL THREE TIMES A DAY NEEDED as needed for muscle spasms Docusate Sodium (Docusate Sodium) 100 MG CAPSULE 1 Capsule ORAL DAILY Start taking the following new medications: Tramadol HCl (Tramadol HCl) 50 MG TABLET 1 Tablet ORAL EVERY SIX HOURS as needed for PAIN SCALE 7-10 (SEVERE) Qty = 30 No Refills Nitroglycerin (Nitroglycerin Patch) 0.4 MG/HOUR PATCH.TD24 1 PATCH On the skin DAILY Qty = 15 No Refills Gabapentin (Gabapentin) 100 MG CAPSULE 1 Capsule ORAL EVERY 8 HOURS Qty = 30 No Refills Aspirin (Aspirin*) 81 MG TAB.CHEW 1 Tablet ORAL DAILY Qty = 30 No Refills Copies To: Tong CURTIS,Corrina; Morena CURTIS,Paul; Serg CURTIS PHD,Juan Marcelina
--- NOTE | 2017-06-25 15:43 | PN- Cardiology ---
Subjective Subjective: * Patient is tired but denies any current chest pain or shortness of breath. * sinus rhythm * creatinine is 2.0 * protein and albumen are low Objective Vital Signs and I&Os Vital Signs Date Time Temp Pulse Resp B/P B/P Pulse O2 O2 Flow FiO2 Mean Ox Delivery Rate 06/25 1405 98.3 58 20 120/60 95 Room Air 06/25 0933 120/70 06/25 0636 97.2 52 20 120/70 95 06/24 2353 98.2 59 16 128/62 94 Room Air 06/24 2240 61 128/62 06/24 1541 98.3 53 18 128/60 93 Intake & Output 06/25 1600 06/25 0800 06/25 0000 06/24 1600 06/24 0800 06/24 0000 Intake Total 250 Output Total 375 601 Balance -125 -601 Intake, Oral 250 Number 2 Bowel Movements Output, Stool 1 Output, Urine 375 600 Patient 157 lb Weight Weight Bed scale Measurement Method Physical Exam: General: WD/overweight female in NAD; alert and oriented x 3 Neck: no JVD, no carotid bruit Heart: RRR with 2/6 systolic murmur Lungs: clear bilaterally ABdomen: soft, NT, +ve bowel sounds with colostomy Extremities: 3+ leg edema Assessment/Plan Assessment/Plan * This patient has restrictive heart disease as noted on her echocardiogram which has contributed to her issues with left and right heart failure. Severe anemia will lead to tachycardia and a hyperdynamic state that will increase intracardiac pressures and worsen heart failure. Her anemia is improved today. Coronary artery disease may also contribute to decreased myocardial compliance and I strongly suspect myocarcial ischemia. This is manifesting as repeated elevations of cardiac troponin. This patient will need an eventual cardiac catheterization with revascularization. I recommend doing this this coming week after she holds Xarelto for two days. Continue NTG paste 1/2 inch Q 6 hours and continue her beta miranda. * The patient should be evaluated for her low protein and albumen which can contribute to fluid retension. Consider a 24 hour urine for protein. Continue telemetry? Yes
[2017-06-25 22:06] VITALS: BP 116/62
[2017-06-26 07:05] VITALS: BP 126/60
--- NOTE | 2017-06-26 07:18 | PN- Housestaff ---
[facility] Subjective Follow-up For: TYPE 2 OK Acute on chronic kidney injury(improving) Symptomatic anemia(improving) Pheripheral neropathy Tele-Events Since Last Visit: Sinus rhythm with heart rate 54-58. 4 beats of V. tach Subjective: Patient had 4 beats of V. tach overnight. She remained hemodynamically stable. Patient remained afebrile overnight. She denied any chest pain, short of breath , nausea, vomiting, chair, fever, abdominal pain and dysuria. Patient slept in a recliner overnight. Patient's neck pain is under control with pain medication. Review of Systems Constitutional: Denies: chills, fever. EENTM: Reports: no symptoms. Cardiovascular: Denies: chest pain, palpitations. Respiratory: Denies: cough, short of breath. Gastrointestinal: Reports: no symptoms. Genitourinary: Reports: no symptoms. Musculoskeletal: Reports: no symptoms. Neurological/Psychological: Reports: no symptoms. Hematologic/Endocrine: Reports: no symptoms. Objective Last 24 Hrs of Vital Signs/I&O Vital Signs Date Time Temp Pulse Resp B/P B/P Pulse O2 O2 Flow FiO2 Mean Ox Delivery Rate 06/26 0705 98.1 54 20 126/60 96 Room Air 06/25 2206 98.4 58 20 116/62 96 Room Air 06/25 2059 57 116/62 06/25 1405 98.3 58 20 120/60 95 Room Air 06/25 0933 120/70 Intake & Output 06/26 0800 04/05 0000 04 1600 Intake Total 120 400 Output Total 1200 650 Balance -1200 120 -250 Intake, IV 20 Intake, Oral 100 400 Number 1 Bowel Movements Output, Urine 1200 650 Physical Exam General Appearance: Alert, Oriented X3, Cooperative Skin: No Rashes Skin Temp/Moisture Exam: Warm/Dry Sepsis Skin Exam (color): Normal for Ethnicity HEENT: Atraumatic, PERRLA, EOMI Neck: Supple Cardiovascular: Normal S1, Normal S2 Lungs: Decreased breath sounds b/l Abdomen: Soft, No Tenderness Neurological: Normal Speech, Normal Tone Extremities: B/L pedal edema Assessment/Plan Assessment: 76F PMH HTN, HFpEF, history of DVT on Xarelto, history of anemia, TACO on CPAP, anxiety, depression, rheumatoid arthritis, history of colonic perfusion s/p colostomy, hypothyroidism admitted for symptomatic anemia requiring transfusion, dyspnea with minimal exertion, and weakness. Following the patient on telemetry floor for the following problems: Symptomatic anemia: -Probably multifactorial considering her GI AV malformation, chronic kidney injury and also use of hydroxychloroquine for RA that can suppress bone marrow. -Ferritin is normal and total iron-binding capacity is also normal -Patient received two units of blood and her Hb has improved to 9.5 -Her reticulocyte count is low -Her erythropoietin level 24.0 -Continue supplemental iron. -GI recommended to follow as outpatient for further workup with [facility]. -Follow hematology recommendations. Acute on chronic kidney injury:(IMPROVING) -Probably due to dehydration -We will monitor input and output -Avoid nephrotoxins medications, NSAIDs -We will encourage patient to take more oral fluids Type II OK: -Probably due to restrictive heart disease and anemia. Anemia causing her tachycardia and hyperdynamic state. -No EKG changes -Continue NTG paste and carvedalol. -We will follow cardiology recommendations Pheripheral neuropathy: -Gabapentin 100mg and then continue tid if patient tolerates. History of rheumatoid arthritis -Hydroxychloroquine was stopped yesterday considering her anemia. -Continue chronic steroids prednisone 10mg daily History of chronic neck pain: -Patient didn't want diluadid causing halucinations according to patient. -Tramadol was started to control pain. History of hypothyroidism: -Continue levothyroxine History of DVT: -Patient was on xeralto that was stopped because of anemia. History of hypertension: -Continue home medications History of colonic perforation status post colostomy: -Patient has Emanuel procedure due to colonic perforation -Her colostomy is working History of diastolic CHF: -PO lasix was discontinued as she is getting iv lasix 40mg once everyday. We will start po after her leg swelling decreased. -We will follow cardiology recommendations. DVT prophylaxis: Mechanical and subcutaneous heparin CODE STATUS: DNR/DNI Problem List: 1. Wmyoa-yd-fdggmbh kidney injury 2. Elevated troponin 3. Symptomatic anemia Pain Ratin Pain Location: none Pain Goal: Remain pain free Pain Plan: pain pathway Tomorrow's Labs & Rationales: cbc/bep Ginger Griffiths MD 06/26/17 1134: Attending Review Statement Attending Statement Attending MD Statement: examined this patient, discuss w/resident/PA/WASHER OPERATOR, agreed w/resident/PA/WASHER OPERATOR, reviewed EMR data (avail) Attending Assessment/Plan: 76F PMH HTN, HFpEF, history of DVT on Xarelto, history of anemia, TACO on CPAP, anxiety, depression, rheumatoid arthritis, history of colonic perfusion s/p colostomy, hypothyroidism admitted for symptomatic anemia requiring transfusion, dyspnea with minimal exertion, and weakness. Recently admitted for similar 1 month ago, had push enteroscopy which did not show source of bleeding. Has deteriorated since and Hgb was down to 6.7 on admission. No signs of bleeding, no melena, bloody stools, hematuria, or vaginal bleeding. On Xarelto at home for DVT in July 2016 at [facility], held here due to anemia. Labs show iron deficiency anemia with relatively low reticulocyte count and normal MCV. EKG was NSR, troponin 0.58 (similar to level at discharge 1 month ago). Given 1 unit pRBC. Patient is uncomfortable and feels ill. She complains of shooting bilateral leg pain consistent with polyneuropathy. Her Hgb is improving now 9.9 with no signs of bleeding. 1. Symptomatic anemia 2. Dyspnea on exertion 3. History of DVT 4. Type 2 myocardial infarction Plan - Continue on telemetry - Monitor CBC daily - Iron supplementation - [facility] has no records for DVT, will contact [facility] for records - Start Gabapentin 100mg, if tolerated, increase to TID - Discontinue Dilaudid, as it made her hallucinate, will try Tramadol for pain control - Follow hematology, GI, cardiology consults - Transfuse to Hgb>8 - Continue Lasix, as patient continues to have b/l LE edema, will give 40mg IV today and monitor - Continue home medications - DVT PPx with ALPS, will hold Xarelto for now until records from [facility] can be obtained - Follow up EPO level and MM labs
[2017-06-26 08:04] LABS: ABSOLUTE BASOPHIL COUNT 0 /CUMM (0.0-0.2); ABSOLUTE EOSINOPHIL COUNT 0 /CUMM (0.0-0.7); ABSOLUTE GRANULOCYTE CT 5.6 /CUMM (1.4-6.5); ABSOLUTE LYMPH COUNT 1.4 /CUMM (1.2-3.4); ABSOLUTE MONOCYTE COUNT 0.4 /CUMM (0.10-0.60); BASOPHIL % 0.3 % (0.0-2.0); EOSINOPHIL % 0.1 % (0-5); HEMATOCRIT 30.1 % (37-47); MEAN CORPUSCULAR HGB 29.9 PG (27.0-31.0); MEAN CORPUSCULAR HGB CONC 33.1 G/DL (33.0-37.0); MEAN CORPUSCULAR VOLUME 90.5 FL (81.0-99.0); MEAN PLATELET VOLUME 8.5 FL (7.4-10.4); PLATELET COUNT 180 /CUMM (130-400); RBC DISTRIBUTION WIDTH 15.4 % (11.5-14.5); RED BLOOD CELL CT 3.32 /CUMM (4.20-5.40); WHITE BLOOD CELL COUNT 7.4 /CUMM (4.8-10.8)
[2017-06-26 14:53] VITALS: BP 110/60
--- NOTE | 2017-06-26 18:08 | Cons- Nephrology ---
See Addendum General Information and HPI Consulting Request Date of Consult: 06/26/17 Requested By: Ginger Griffiths MD Reason for Consult: CKD with anemia Source of Information: patient, old records Exam Limitations: poor historian History of Present Illness: The patient is a 76-year-old woman whom I am being asked to see because of chronic kidney disease and anemia. With regard to her chronic kidney disease, she is known to have elevated creatinine levels which generally appeared to be in the mid 1's. She has been evaluated and is being followed by a inventory clerk in [place] (Dr. Skinner). Her creatinine on 05/26/17 was 1.4 and subsequently on 06/18/17 was 2.6 gradually fallen to a level of 1.9 today. Hemoglobin at time of admission was 6.7 for which she was transfused and her hemoglobin this morning is 9.9. Iron studies show a serum iron of 15 with a T sat of 5% and ferritin level of 43.8. She has apparently had a number of stools tested for occult blood (she has a colostomy) which have been negative. There is no history of overt blood loss. Although I am not sure, I do not believe that she is receiving an ENRIQUETA as an outpatient. Past medical history is positive for rheumatoid arthritis for which she is on hydroxychloroquine and chronic steroids, colonic perforation during a colonoscopy leading to a colostomy and Emanuel's procedure, small bowel AVM, DVT on Xarelto, obstructive sleep apnea on CPAP, hypertension, heart failure with preserved ejection fraction, obesity, chronic anemia, pneumonia and pleural effusions. Medications: See below Allergies: Multiple including penicillins, codeine, propoxyphene, aspirin, cephalexin. Family history negative for any known kidney disease Social history: She lives at home with assistance, former smoker, denies history of alcohol or drug abuse. Allergies/Medications Allergies: Coded Allergies: Penicillins (SWELLING, RASH, ITCH 05/22/17) aspirin (RASH 05/22/17) cephalexin (From KEFLEX) (ITCHY 05/22/17) codeine (ITCH 05/22/17) levofloxacin (From LEVAQUIN) (RASH 05/22/17) oxaprozin (From DAYPRO) (RASH 05/22/17) propoxyphene (UNKNOWN REACTION TO DARVOCET 05/22/17) Home Med List: Butalb/Acetaminophen/Caffeine (Riamqk-Acudbqfq-Oazk 50-325-40) 50 MG-325 MG-40 MG TABLET 1 TAB PO BID PRN migrain (Reported) Calcium Carbonate/Vitamin D3 (Os-Mehdi 500+D3 Caplet) 500 MG-200 TABLET 1 TAB PO DAILY SUPPLEMENT (Reported) Carvedilol 25 MG TABLET 1 TAB PO BID HEART/BP (Reported) Cyclobenzaprine HCl 5 MG TABLET 1 TAB PO TIDPRN PRN muscle spasms (Reported) Docusate Sodium 100 MG CAPSULE 1 CAP PO DAILY constipation (Reported) Ergocalciferol (Vitamin D2) (Vitamin D2) 50,000 UNIT CAPSULE 1 CAP PO QWED SUPPLEMENT (Reported) Ferrous Gluconate (Unknown Strength) TABLET (Unknown Dose) PO DAILY SUPPLEMENT (Reported) Furosemide (Lasix) 20 MG TABLET 1 TAB PO DAILY DIURETIC (Reported) Hydromorphone HCl (Dilaudid) 4 MG TABLET 0.5-1 TAB PO Q8P PRN PAIN (Reported) Hydroxychloroquine Sulfate 200 MG TABLET 1 TAB PO BID RA (Reported) Levothyroxine Sodium 25 MCG TABLET 1 TAB PO DAILY AC THYROID (Reported) Lisinopril 10 MG TABLET 1 TAB PO QAM BP (Reported) Metoclopramide HCl (Reglan) 10 MG TABLET 1 TAB PO TID for nausea (Reported) 30 minutes before meals and bedtime Omeprazole 20 MG TABLET.DR 1 TAB PO DAILY GI (Reported) Potassium Chloride (Klor-Con 10) (Unknown Strength) TABLET.ER (Unknown Dose) PO DAILY SUPPLEMENT (Reported) Prednisone 10 MG TABLET 1 TAB PO QAM STEROID (Reported) Rivaroxaban (Xarelto) 20 MG TABLET 1 TAB PO DAILY blood thinner (Reported) with food Sennosides/Docusate Sodium (Senna Plus Tablet) 8.6 MG-50 MG TABLET 1 TAB PO DAILY NEEDED PRN CONSTIPATION . Sertraline HCl 25 MG TABLET 1 TAB PO QAM MENTAL HEALTH (Reported) Review of Systems Review of Systems: Constitutional: Reports: chills, malaise, weakness. Denies: diaphoresis, fever. EENTM: Reports: no symptoms. Cardiovascular: Reports: peripheral edema. Denies: chest pain, syncope. Respiratory: Reports: short of breath. Denies: cough. GI: Reports: abdominal pain, melena, nausea, vomiting. Denies: bloody stool, changes in stool. Genitourinary: Reports: frequency. Denies: dysuria. Musculoskeletal: Reports: see HPI. Skin: Reports: no symptoms. Neurological/Psychological: Reports: no symptoms. Hematologic/Endocrine: Reports: no symptoms. Immunologic/Allergic: Reports: no symptoms. All Other Systems: Reviewed and Negative Past History Travel History Traveled to [place] past 21 day No Medical History Blood Transfusion Hx: Yes Neurological: migraine EENT: cataracts Cardiovascular: CHF, hypertension, hyperlipidemia Respiratory: pneumonia, DYSPNEA Gastrointestinal: diverticulitis, HEMORRHOIDS BOWEL RESECTION COLOSTOMY Hepatic: NONE Renal: 3+PROTEIN IN URINE [id number] Musculoskeletal: rheumatoid arthritis Psychiatric: anxiety, depression, insomnia Endocrine: vitamin D deficiency Blood Disorders: anemia Cancer(s): NONE ANIMAL BIOLOGIST/Reproductive: NONE Surgical History Surgical History: colon resection, hysterectomy, laminectomy Family History Relations & Conditions If Any: Relation not specified for: *No pertinent family history Psychosocial History Services at Home: Servant Primary Language: Indonesian Smoking Status: Former Smoker Functional Ability Ambulation: cane IADLs Needs Assist: shopping, housework, food prep. Exam & Diagnostic Data Vital Signs and I&O Vital Signs Date Time Temp Pulse Resp B/P B/P Pulse O2 O2 Flow FiO2 Mean Ox Delivery Rate 06/26 1453 97.8 59 20 110/60 96 06/26 0931 80 18 110/60 06/26 0800 99 Room Air 06/26 0705 98.1 54 20 126/60 96 Room Air 06/25 2206 98.4 58 20 116/62 96 Room Air 06/25 2059 57 116/62 Intake & Output 06/26 1600 06/26 0400 06/25 1600 06/25 0400 06/24 1600 06/24 0400 Intake Total 240 120 400 250 Output Total 1950 650 375 601 Balance -1710 120 -250 -125 -601 Intake, IV 0 20 Intake, Oral 240 100 400 250 Number 3 2 Bowel Movements Output, Stool 1 Output, Urine 1950 650 375 600 Patient 157 lb Weight Weight Bed scale Measurement Method Physical Exam: General: Chronically ill-appearing, elderly white female in NAD Skin: No rash or jaundice HEENT: Conjunctivae pale, sclerae anicteric, mucous membranes dry Neck: Without masses or thyromegaly, no supraclavicular or cervical adenopathy Chest: Clear anterolaterally Heart: Regular rate and rhythm without S3 or rub Abdomen: Soft and nontender without palpable masses or organomegaly; colostomy left lower quadrant Extremities: Without cyanosis or edema Neuro: Awake and alert, no focal findings, no asterixis or myoclonus Assessment/Plan Assessment/Recommendations Assessment: 76-year-old woman with chronic kidney disease for which she is being followed by a inventory clerk in [place] and which therefore not generate an extensive renal workup at this time. The other main issue that I am being asked to address is whether she might benefit from ENRIQUETA therapy. The answer to that is yes as she has stage IV CKD. However, she also has diminished iron stores as indicated by her low serum iron, transferrin saturation and relatively low (albeit "WNL") ferritin level. The focus at this point should be in finding out why she is so iron deficient and in replenishing her iron stores which in my view will require parenteral iron. Once iron stores are replenished, ENRIQUETA therapy can be considered. Recommendations: 1. Fever for 100 mg IV daily or every other day to a total of 1000 mg; this can be completed if necessary as an outpatient 2. Once iron stores have been repleted, she would then be a candidate for ENRIQUETA therapy if her hemoglobin remained under 10. This can be orchestrated by her outpatient inventory clerk (Dr. Skinner). Thank you for asking me to see this patient.
--- NOTE | 2017-06-26 18:59 | PN- Cardiology ---
Subjective Subjective: * Breathing is improved but not quite back to baseline. * sinus rhythm * anemia is improved * creatinine is 1.9 Objective Vital Signs and I&Os Vital Signs Date Time Temp Pulse Resp B/P B/P Pulse O2 O2 Flow FiO2 Mean Ox Delivery Rate 06/26 1453 97.8 59 20 110/60 96 06/26 0931 80 18 110/60 06/26 0800 99 Room Air 06/26 0705 98.1 54 20 126/60 96 Room Air 06/25 2206 98.4 58 20 116/62 96 Room Air 06/25 2059 57 116/62 Intake & Output 06/26 1600 06/26 0806/26 0000 06/25 1600 06/25 0806/25 0000 Intake Total 240 120 400 250 Output Total 750 1200 650 375 Balance -510 -1200 120 -250 -125 Intake, IV 0 20 Intake, Oral 240 100 400 250 Number 2 1 2 Bowel Movements Output, Urine 750 1200 650 375 Physical Exam: General: WD/overweight female in NAD; alert and oriented x 3 Neck: no JVD, no carotid bruit Heart: RRR with 2/6 systolic murmur Lungs: clear bilaterally ABdomen: soft, NT, +ve bowel sounds with colostomy Extremities: 2+ leg edema Assessment/Plan Assessment/Plan * This patient has restrictive heart disease as noted on her echocardiogram which has contributed to her issues with left and right heart failure. Severe anemia will lead to tachycardia and a hyperdynamic state that will increase intracardiac pressures and worsen heart failure. Her anemia is improved today. Coronary artery disease may also contribute to decreased myocardial compliance and I strongly suspect myocarcial ischemia. This is manifesting as repeated elevations of cardiac troponin. This patient will need a cardiac catheterization which is planned for next Friday as an outpatient. Xarelto will need to be held for two days prior to the procedure. Continue NTG paste 1/2 inch Q 6 hours and continue her beta miranda. * The patient should be evaluated for her low protein and albumen which can contribute to fluid retension. A 24 hour urine for protein is pending. Continue telemetry? Yes
[2017-06-26 21:23] VITALS: BP 110/58
[2017-06-27 06:35] VITALS: BP 118/68
--- NOTE | 2017-06-27 06:41 | PN- Housestaff ---
[facility]: Subjective Follow-up For: TYPE 2 OH Acute on chronic kidney injury(improving) Symptomatic anemia(improving) Pheripheral neropathy Tele-Events Since Last Visit: Sinus rhythm with heart rate 5557 Subjective: No overnight events. Patient remained afebrile P seen and examined this morning. Patient reported having weakness and decreased appetite. Patient also reported having feeling nauseous whenever he had blood draw. Patient denied any chest pain, short of breath, vomiting, abdominal pain and dysuria. Review of Systems Constitutional: Reports: weakness. EENTM: Reports: no symptoms. Cardiovascular: Denies: chest pain, edema, orthopena, palpitations. Respiratory: Denies: cough, short of breath. Gastrointestinal: Reports: nausea. Genitourinary: Reports: no symptoms. Musculoskeletal: Reports: no symptoms. Neurological/Psychological: Reports: no symptoms. Objective Last 24 Hrs of Vital Signs/I&O Vital Signs Date Time Temp Pulse Resp B/P B/P Pulse O2 O2 Flow FiO2 Mean Ox Delivery Rate 06/27 0635 98.2 54 20 118/68 98 / 2136 60 110/58 / 2123 98.6 60 20 110/58 95 Room Air / 1453 97.8 59 20 110/60 96 /05 0931 80 18 110/60 Intake & Output 06/27 1600 06/27 0800 06/27 0000 Intake Total 480 Output Total 500 Balance -500 480 Intake, Oral 480 Number 1 Bowel Movements Output, Urine 500 Physical Exam General Appearance: Alert, Oriented X3, Cooperative Skin: No Rashes Skin Temp/Moisture Exam: Warm/Dry Sepsis Skin Exam (color): Normal for Ethnicity HEENT: Atraumatic, PERRLA, EOMI Neck: Supple Cardiovascular: Normal S1, Normal S2 Lungs: Clear to Auscultation Abdomen: Soft, No Tenderness Neurological: Normal Speech, Normal Tone Extremities: pedal edema has improved. Assessment/Plan Assessment: 76F PMH HTN, HFpEF, history of DVT on Xarelto, history of anemia, TACO on CPAP, anxiety, depression, rheumatoid arthritis, history of colonic perfusion s/p colostomy, hypothyroidism admitted for symptomatic anemia requiring transfusion, dyspnea with minimal exertion, and weakness. Following the patient on telemetry floor for the following problems: Symptomatic anemia: -Probably multifactorial considering her GI AV malformation, chronic kidney injury and also use of hydroxychloroquine for RA that can suppress bone marrow. -Ferritin is normal and total iron-binding capacity is also normal -H&H is 9.4/28.7 -Her reticulocyte count is low -Her erythropoietin level 24.0 -Continue supplemental iron. -GI recommended to follow as outpatient for further workup with [facility]. -Follow hematology recommendations. Acute on chronic kidney injury:(IMPROVING) -Probably due to dehydration -We will monitor input and output -Avoid nephrotoxins medications, NSAIDs -We will encourage patient to take more oral fluids Type II OH: -Probably due to restrictive heart disease and anemia. Anemia causing her tachycardia and hyperdynamic state. -No EKG changes -Continue NTG paste and carvedalol. -Cardiology will follow patient outpatient for cardiac cath. Pheripheral neuropathy: -Gabapentin 100mg and then continue tid if patient tolerates. History of rheumatoid arthritis -Hydroxychloroquine was stopped yesterday considering her anemia. -Continue chronic steroids prednisone 10mg daily History of chronic neck pain: -Patient didn't want diluadid causing halucinations according to patient. -Tramadol was started to control pain. History of hypothyroidism: -Continue levothyroxine History of DVT: -Patient was on xeralto that was stopped because of anemia. History of hypertension: -Continue home medications History of colonic perforation status post colostomy: -Patient has Emanuel procedure due to colonic perforation -Her colostomy is working History of diastolic CHF: -PO lasix was resumed 20mg daily. -We will follow cardiology recommendations. DVT prophylaxis: Mechanical and subcutaneous heparin CODE STATUS: DNR/DNI Problem List: 1. Lolnr-ui-ymaenzd kidney injury 2. Symptomatic anemia 3. Elevated troponin Pain Ratin Pain Location: none Pain Goal: Remain pain free Pain Plan: pain pathway Tomorrow's Labs & Rationales: cbc/bep Ginger Griffiths MD 06/27/17 1045: Attending MD Review Statement Attending Statement Attending MD Statement: examined this patient, discuss w/resident/PA/ENGINEERING TECHNICAL WRITER, agreed w/resident/PA/ENGINEERING TECHNICAL WRITER, reviewed EMR data (avail) Attending Assessment/Plan: 76F PMH HTN, HFpEF, history of DVT on Xarelto, history of anemia, TACO on CPAP, anxiety, depression, rheumatoid arthritis, history of colonic perfusion s/p colostomy, hypothyroidism admitted for symptomatic anemia requiring transfusion, dyspnea with minimal exertion, and weakness. Recently admitted for similar 1 month ago, had push enteroscopy which did not show source of bleeding. Has deteriorated since and Hgb was down to 6.7 on admission. No signs of bleeding, no melena, bloody stools, hematuria, or vaginal bleeding. On Xarelto at home for DVT in July 2016 at [facility], held here due to anemia. Labs show iron deficiency anemia with relatively low reticulocyte count and normal MCV. EKG was NSR, troponin 0.58 (similar to level at discharge 1 month ago). Given 1 unit pRBC. Leg edema is significantly improved and now back to baseline. Foot pain has improved. Now complains of right hand pain at the IV site with no evidence of swelling or erythema. Requiring assistance with transferring. Hgb stable. 1. Symptomatic anemia 2. Dyspnea on exertion 3. History of DVT 4. Type 2 myocardial infarction Plan - Continue on telemetry - Monitor CBC daily - Iron supplementation - [facility] has no records for DVT, will contact [facility] for records - Continue Tramadol and Gabapentin as this has improved her pain - Follow hematology, GI, cardiology consults - Transfuse to Hgb>8 - Restart home dose of Lasix 20mg PO daily, no further IV - Continue home medications - DVT PPx with ALPS, will hold Xarelto for now until records from [facility] can be obtained - Follow up EPO level and MM labs
[2017-06-27 07:57] LABS: ABSOLUTE BASOPHIL COUNT 0 /CUMM (0.0-0.2); ABSOLUTE EOSINOPHIL COUNT 0 /CUMM (0.0-0.7); ABSOLUTE GRANULOCYTE CT 5.2 /CUMM (1.4-6.5); ABSOLUTE LYMPH COUNT 1.4 /CUMM (1.2-3.4); ABSOLUTE MONOCYTE COUNT 0.4 /CUMM (0.10-0.60); BASOPHIL % 0.3 % (0.0-2.0); EOSINOPHIL % 0 % (0-5); GRANULOCYTE % 73.2 % (42.2-75.2); HEMATOCRIT 28.7 % (37-47); MEAN CORPUSCULAR HGB 29.9 PG (27.0-31.0); MEAN CORPUSCULAR HGB CONC 32.8 G/DL (33.0-37.0); MEAN CORPUSCULAR VOLUME 91.1 FL (81.0-99.0); MEAN PLATELET VOLUME 8.4 FL (7.4-10.4); PLATELET COUNT 177 /CUMM (130-400); RBC DISTRIBUTION WIDTH 15.3 % (11.5-14.5); RED BLOOD CELL CT 3.15 /CUMM (4.20-5.40); WHITE BLOOD CELL COUNT 7.1 /CUMM (4.8-10.8)
[2017-06-27] MEDS ORDERED: TRAMADOL HCL50 M1 PO (13:52)
--- NOTE | 2017-06-27 14:01 | Patient Discharge Instructions ---
Discharge Instructions General Discharge Information You were seen/treated for: Symptomatic anemia Acute on chronic kidney injury Type 2 CT Watch for these problems: Chest pain, shortness of breath, increase in swelling of the legs, lightheadedness, weakness, black stools and bleeding from any part of body. Special Instructions: -Follow-up with your primary care physician in one week -Follow-up with agricultural engineer as outpatient for cardiac catheterization on 07/02/2017. -Follow-up with nephrology for further recommendations to start ENRIQUETA therapy. -Follow up with nut sorter for further recommendations for anemia. -XERALTO was discontinued because of anemia and also agricultural engineer wants two days off from xeralto before doing cardiac cath. -Hydroxychloroquine was discontinued because possibly might be contributing to her anemia that was discussed with her third cook. -Dilaudid was discontinued as patient was complaining of hallucination and her pain is being managed with tramadol. Diet Recommended Diet: Heart Healthy Activity Activity Self Limited: Yes Acute Coronary Syndrome Inclusion Criteria At DC or during hospital stay patient has or had the following: ACS DIAGNOSIS No Discharge Core Measures Meds if any: Prescribed or Continued at Discharge Meds if any: NOT Prescribed or Continued at Discharge Congestive Heart Failure Inclusion Criteria At DC or during hospital stay patient has or had the following: CHF DIAGNOSIS No Discharge Core Measures Meds if any: Prescribed or Continued at Discharge Meds if any: NOT Prescribed or Continued at Discharge Cerebrovascular accident Inclusion Criteria At DC or during hospital stay patient has or had the following: CVA/TIA Diagnosis No Discharge Core Measures Meds if any: Prescribed or Continued at Discharge Meds if any: NOT Prescribed or Continued at Discharge Venous thromboembolism Inclusion Criteria VTE Diagnosis No VTE Type NONE VTE Confirmed by (Test) NONE Discharge Core Measures - Per Current guidelines, there needs to be overlap - treatment for the first 5 days of Warfarin therapy. - If discharged on Warfarin prior to 5 days of - overlap therapy, the patient will need to be - assessed for post discharge needs including - *Post discharge parental anticoagulation - *Warfarin and/or parental anticoagulation education - *Follow up date to check INR post discharge At least 5 days overlap therapy as Inpatient No Meds if any: Prescribed or Continued at Discharge Note: Overlap Therapy is Warfarin and Anticoagulant Meds if any: NOT Prescribed or Continued at Discharge
--- NOTE | 2017-06-27 14:08 | PN- Student ---
Subjective Subjective: Patient is been following up for symptomatic anemia, peripheral neuropathy, MARVEL, Type II ID, elevated troponin Patient seen and evaluated this morning. No events overnight. Patient remained afebrile. Compains of nausea after blood was draw and pain around the IV access. This morning she feels better with less pain in the lower extremities. Objective Objective: Vitals: T= 98.2 HR=54 RR=20 BR= 118/68 [id number]=18 PE: Antonette= alert, oriented x3 Lungs= clear bilateral, no added sound, symetric chest movements CVS= regular rate rythm, no mumurs Extremitis= +1 pedal edema (improving) Results Results: Laboratory Tests 06/27/17 0711: Anion Gap 5, Estimated GFR 27 L, BUN/Creatinine Ratio 27.2 H, CBC w Diff NO MAN DIFF REQ, RBC 3.15 L, MCV 91.1, MCH 29.9, MCHC 32.8 L, RDW 15.3 H, MPV 8.4, Gran % 73.2, Lymphocytes % 20.2 L, Monocytes % 6.3, Eosinophils % 0, Basophils % 0.3, Absolute Granulocytes 5.2, Absolute Lymphocytes 1.4, Absolute Monocytes 0.4, Absolute Eosinophils 0, Absolute Basophils 0 06/26/17 1900: Urine Total Volume 1800 H, Ur Total Protein 24 Hr 3510.0 H 06/26/17 0622: Anion Gap 9, Estimated GFR 26 L, BUN/Creatinine Ratio 28.4 H, Magnesium 1.8, CBC w Diff NO MAN DIFF REQ, RBC 3.32 L, MCV 90.5, MCH 29.9, MCHC 33.1, RDW 15.4 H, MPV 8.5, Gran % 75.0, Lymphocytes % 18.8 L, Monocytes % 5.8, Eosinophils % 0.1, Basophils % 0.3, Absolute Granulocytes 5.6, Absolute Lymphocytes 1.4, Absolute Monocytes 0.4, Absolute Eosinophils 0, Absolute Basophils 0 06/25/17 1900: U Random Total Protein 197 H 06/25/17 0717: Anion Gap 9, Estimated GFR 24 L, BUN/Creatinine Ratio 29.0 H, CBC w Diff NO MAN DIFF REQ, RBC 3.20 L, MCV 90.5, MCH 29.8, MCHC 32.9 L, RDW 15.7 H, MPV 8.4, Gran % 70.1, Lymphocytes % 21.9, Monocytes % 6.7, Eosinophils % 0.9, Basophils % 0.4, Absolute Granulocytes 5.3, Absolute Lymphocytes 1.7, Absolute Monocytes 0.5, Absolute Eosinophils 0.1, Absolute Basophils 0 06/24/172: CBC w Diff NO MAN DIFF REQ, RBC 3.01 L, MCV 90.5, MCH 29.8, MCHC 33.0, RDW 14.9 H, MPV 8.5, Gran % 78.5 H, Lymphocytes % 16.3 L, Monocytes % 4.3, Eosinophils % 0.1, Basophils % 0.8, Absolute Granulocytes 6.0, Absolute Lymphocytes 1.3, Absolute Monocytes 0.3, Absolute Eosinophils 0, Absolute Basophils 0.1 06/24/17 1759: Ref Lab Test Result Pending 06/24/17 1516: Prot Electrophoresis SEE NOTE, Total Protein (PEP) 4.2 L, Albumin % (PEP) 2.0 L, Meuqg-7-Qknkvbolx 0.4 H, Hzglr-2-Dfwamfkyc 0.7, Wyaj-4-Ltjeylfj 0.3 L, Beta -2-Globulin 0.3, Gamma Globulins 0.4 L 06/24/17 1428: Ur Creatinine 24 Hour Cancelled, Ur Total Protein 24 Hr Cancelled, Protein/Creat Ratio 24h Cancelled, U Protein Electrophores Cancelled, Urine Albumin (%) Cancelled, U Szkoa-2-Fkttzcbg Cancelled, U Rugum-2-Csaxgkje Cancelled, U Beta Globulin Cancelled, U Gamma Globulin Cancelled, U Abnormal Prot Band 1 Cancelled , U Abnormal Prot Band 2 Cancelled, U Abnormal Prot Band 3 Cancelled 06/24/17 1420: Troponin I 0.53 *H Microbiology 06/25 1900 URINE ROUT: Urine Culture - COMP Assessment/Plan Assessment: 76 y/o F with PMHX of RA, colon perforation s/p Emanuel's procedure with end colostomy. Following up for symptomatic anemia and elevated troponin. Plan: Cont. Telemetry Cont. iron supplements, home meds and current pain regiment Monitor CBC Contact [facility] for record about DVT (Xarelto hold)
[2017-06-27 15:00] VITALS: BP 112/60
--- NOTE | 2017-06-27 16:44 | Event Note ---
Event Note Event Note: We received the records from [facility] regarding patient's diagnosis of DVT back in July 2016. Records indicating DVT of left femoral vein down to popliteal vein, unprovoked DVT. According to guidelines, patient should be on DVT prophylaxis for life. Discussed with the patient the benefit and risk insetting of her acute anemia that mostly related to blood loss. Patient understands the risk and benefits and willing to discuss this with her family and once decision was made she will let us know.
--- NOTE | 2017-06-27 18:04 | PN- Nephrology ---
Assessment/Plan Nephrology Assessment: 1. CKD stage 3 or 4 of uncertain etiology at this time with a recent acute component which is improved 2. Anemia likely multifactorial but at least in part due to iron deficiency and CKD Suggestion: 1. Continue with parenteral iron sucrose (Venofer). Can double the dose to 200 mg IV daily or every other day which can be continued as an outpatient until a total dose of 1000 mg. 2. Further outpatient follow-up with regard to her CKD and anemia of CKD should be with Dr. Skinner in [place] Thank you for asking us to see Ms. Corona. Subjective Subjective: She remains fatigued and weak without any specific new complaints today. Creatinine continues to slowly drift down - 1.8 today. Electrolytes unremarkable. Objective Vital Signs and I&Os Vital Signs Date Time Temp Pulse Resp B/P B/P Pulse O2 O2 Flow FiO2 Mean Ox Delivery Rate 06/27 1500 97.8 67 20 112/60 92 Room Air 06/27 1103 60 120/60 06/27 0635 98.2 54 20 118/68 98 / 2136 60 110/58 / 2123 98.6 60 20 110/58 95 Room Air Intake & Output 06/27 1600 06 0400 06/26 1600 06/26 0400 06/25 1600 06/25 0400 Intake Total 480 480 240 120 400 250 Output Total 850 1950 650 375 Balance -370 480 -1710 120 -250 -125 Intake, IV 0 20 Intake, Oral 480 480 240 100 400 250 Number 1 3 2 Bowel Movements Output, Stool 100 Output, Urine 750 1950 650 375 Physical Exam: General: Chronically ill-appearing, elderly white female in NAD Skin: No rash or jaundice HEENT: Conjunctivae pale, sclerae anicteric, mucous membranes dry Neck: Without masses or thyromegaly, no supraclavicular or cervical adenopathy Chest: Clear anterolaterally Heart: Regular rate and rhythm without S3 or rub Abdomen: Soft and nontender without palpable masses or organomegaly; colostomy left lower quadrant Extremities: Without cyanosis or edema Neuro: Awake and alert, no focal findings, no asterixis or myoclonus Results Pertinent Lab Results: Laboratory Tests 06/27 06/26 0711 1900 Chemistry Sodium (137 - 145 mmol/L) 139 Potassium (3.5 - 5.1 mmol/L) 4.3 Chloride (98 - 107 mmol/L) 108 H Carbon Dioxide (22 - 30 mmol/L) 27 Anion Gap (5 - 16) 5 BUN (7 - 17 mg/dL) 49 H Creatinine (0.5 - 1.0 mg/dL) 1.8 H Estimated GFR (>60 ml/min) 27 L BUN/Creatinine Ratio (7 - 25 %) 27.2 H Hematology CBC w Diff NO MAN DIFF REQ WBC (4.8 - 10.8 /CUMM) 7.1 RBC (4.20 - 5.40 /CUMM) 3.15 L Hgb (12.0 - 16.0 G/DL) 9.4 L Hct (37 - 47 %) 28.7 L MCV (81.0 - 99.0 FL) 91.1 MCH (27.0 - 31.0 PG) 29.9 MCHC (33.0 - 37.0 G/DL) 32.8 L RDW (11.5 - 14.5 %) 15.3 H Plt Count (130 - 400 /CUMM) 177 MPV (7.4 - 10.4 FL) 8.4 Gran % (42.2 - 75.2 %) 73.2 Lymphocytes % (20.5 - 51.1 %) 20.2 L Monocytes % (1.7 - 9.3 %) 6.3 Eosinophils % (0 - 5 %) 0 Basophils % (0.0 - 2.0 %) 0.3 Absolute Granulocytes (1.4 - 6.5 /CUMM) 5.2 Absolute Lymphocytes (1.2 - 3.4 /CUMM) 1.4 Absolute Monocytes (0.10 - 0.60 /CUMM) 0.4 Absolute Eosinophils (0.0 - 0.7 /CUMM) 0 Absolute Basophils (0.0 - 0.2 /CUMM) 0 Urines Urine Total Volume (600 - 1500 ML/24HR) 1800 H Ur Total Protein 24 Hr (42 - 255 mg/24HR) 3510.0 H 06/26 04 0622 1900 Chemistry Sodium (137 - 145 mmol/L) 139 Potassium (3.5 - 5.1 mmol/L) 4.2 Chloride (98 - 107 mmol/L) 103 Carbon Dioxide (22 - 30 mmol/L) 27 Anion Gap (5 - 16) 9 BUN (7 - 17 mg/dL) 54 H Creatinine (0.5 - 1.0 mg/dL) 1.9 H Estimated GFR (>60 ml/min) 26 L BUN/Creatinine Ratio (7 - 25 %) 28.4 H Magnesium (1.6 - 2.3 mg/dL) 1.8 Hematology CBC w Diff NO MAN DIFF REQ WBC (4.8 - 10.8 /CUMM) 7.4 RBC (4.20 - 5.40 /CUMM) 3.32 L Hgb (12.0 - 16.0 G/DL) 9.9 L Hct (37 - 47 %) 30.1 L MCV (81.0 - 99.0 FL) 90.5 MCH (27.0 - 31.0 PG) 29.9 MCHC (33.0 - 37.0 G/DL) 33.1 RDW (11.5 - 14.5 %) 15.4 H Plt Count (130 - 400 /CUMM) 180 MPV (7.4 - 10.4 FL) 8.5 Gran % (42.2 - 75.2 %) 75.0 Lymphocytes % (20.5 - 51.1 %) 18.8 L Monocytes % (1.7 - 9.3 %) 5.8 Eosinophils % (0 - 5 %) 0.1 Basophils % (0.0 - 2.0 %) 0.3 Absolute Granulocytes (1.4 - 6.5 /CUMM) 5.6 Absolute Lymphocytes (1.2 - 3.4 /CUMM) 1.4 Absolute Monocytes (0.10 - 0.60 /CUMM) 0.4 Absolute Eosinophils (0.0 - 0.7 /CUMM) 0 Absolute Basophils (0.0 - 0.2 /CUMM) 0 Urines U Random Total Protein (0 - 12 mg/dL) 197 H 04/04 04/03 0717 2242 Chemistry Sodium (137 - 145 mmol/L) 138 Potassium (3.5 - 5.1 mmol/L) 4.4 Chloride (98 - 107 mmol/L) 104 Carbon Dioxide (22 - 30 mmol/L) 25 Anion Gap (5 - 16) 9 BUN (7 - 17 mg/dL) 58 H Creatinine (0.5 - 1.0 mg/dL) 2.0 H Estimated GFR (>60 ml/min) 24 L BUN/Creatinine Ratio (7 - 25 %) 29.0 H Hematology CBC w Diff NO MAN DIFF REQ NO MAN DIFF REQ WBC (4.8 - 10.8 /CUMM) 7.5 7.7 RBC (4.20 - 5.40 /CUMM) 3.20 L 3.01 L Hgb (12.0 - 16.0 G/DL) 9.5 L 9.0 L Hct (37 - 47 %) 28.9 L 27.3 L MCV (81.0 - 99.0 FL) 90.5 90.5 MCH (27.0 - 31.0 PG) 29.8 29.8 MCHC (33.0 - 37.0 G/DL) 32.9 L 33.0 RDW (11.5 - 14.5 %) 15.7 H 14.9 H Plt Count (130 - 400 /CUMM) 181 184 MPV (7.4 - 10.4 FL) 8.4 8.5 Gran % (42.2 - 75.2 %) 70.1 78.5 H Lymphocytes % (20.5 - 51.1 %) 21.9 16.3 L Monocytes % (1.7 - 9.3 %) 6.7 4.3 Eosinophils % (0 - 5 %) 0.9 0.1 Basophils % (0.0 - 2.0 %) 0.4 0.8 Absolute Granulocytes (1.4 - 6.5 /CUMM) 5.3 6.0 Absolute Lymphocytes (1.2 - 3.4 /CUMM) 1.7 1.3 Absolute Monocytes (0.10 - 0.60 /CUMM) 0.5 0.3 Absolute Eosinophils (0.0 - 0.7 /CUMM) 0.1 0 Absolute Basophils (0.0 - 0.2 /CUMM) 0 0.1
--- NOTE | 2017-06-27 18:10 | PN- Cardiology ---
Subjective Subjective: * Breathing is improved but not quite back to baseline. * sinus rhythm * anemia is improved compared with admission although it is decreased from yesterday * creatinine is 1.8 Objective Vital Signs and I&Os Vital Signs Date Time Temp Pulse Resp B/P B/P Pulse O2 O2 Flow FiO2 Mean Ox Delivery Rate 06/27 1500 97.8 67 20 112/60 92 Room Air 06/27 1103 60 120/60 06/27 0635 98.2 54 20 118/68 98 06/26 2136 60 110/58 06/26 2123 98.6 60 20 110/58 95 Room Air Intake & Output 06/27 1600 06/27 0800 06/27 0000 06/26 1600 06/26 0806/26 0000 Intake Total 480 480 240 120 Output Total 350 343 649 6082 Balance 130 -500 480 -510 -1200 120 Intake, IV 0 20 Intake, Oral 480 480 240 100 Number 1 2 1 Bowel Movements Output, Stool 100 Output, Urine [phone] Physical Exam: General: WD/overweight female in NAD; alert and oriented x 3 Neck: no JVD, no carotid bruit Heart: RRR with 2/6 systolic murmur Lungs: clear bilaterally ABdomen: soft, NT, +ve bowel sounds with colostomy Extremities: 2+ leg edema Assessment/Plan Assessment/Plan * This patient has restrictive heart disease as noted on her echocardiogram which has contributed to her issues with left and right heart failure. Severe anemia will lead to tachycardia and a hyperdynamic state that will increase intracardiac pressures and worsen heart failure. Her anemia is improved today. Coronary artery disease may also contribute to decreased myocardial compliance and I strongly suspect myocarcial ischemia. This is manifesting as repeated elevations of cardiac troponin. This patient will need a cardiac catheterization which is planned for next Friday as an outpatient. Xarelto will need to be held for two days prior to the procedure. Continue NTG paste 1/2 inch Q 6 hours and continue her beta miranda. Continue telemetry? No
[2017-06-27 22:30] VITALS: BP 126/60
[2017-06-28 06:55] VITALS: BP 150/60
--- NOTE | 2017-06-28 08:43 | PN- Housestaff ---
Mariann Peter Quinten Menchaca 06/28/17 0843: Subjective Follow-up For: As per problem list in AP Tele-Events Since Last Visit: NSR/SB 59 - 60s Subjective: No overnight event. Patient was resting under RA without specifc complaint. Appeared anxious about needle for IV access, however denied CP/.SOB/AB pain. Review of Systems Constitutional: Reports: see HPI. Objective Last 24 Hrs of Vital Signs/I&O Vital Signs Date Time Temp Pulse Resp B/P B/P Pulse O2 O2 Flow FiO2 Mean Ox Delivery Rate 06/28 0959 54 150/60 / 0655 97.8 54 20 150/60 92 Room Air / 2230 97.7 60 20 126/60 93 / 2122 67 112/60 / 1500 97.8 67 20 112/60 92 Room Air Intake & Output 06/28 1600 06/28 0800 06/28 0000 Intake Total 200 300 Output Total 100 200 Balance 100 100 Intake, Oral 200 300 Output, Stool 100 Output, Urine 200 Patient 71.384 kg Weight Physical Exam General Appearance: Alert, Oriented X3, Cooperative, No Acute Distress Cardiovascular: Regular Rate Lungs: Clear to Auscultation, Normal Air Movement Abdomen: Soft, No Tenderness Current Medications: Current Medications Sig/Rick Start time Last Medication Dose Route Stop Time Status Admin Acetaminophen 500 MG Q6P PRN 06/26 0930 AC 06/28 PO 0518 Carvedilol 25 MG BID 06/24 1000 AC 06/28 PO 0959 Ferric Sodium 200 MG DAILY 06/28 1000 CAN Gluconate Complex IV 06/29 2300 Ferric Sodium 125 MG 1500 06/26 1500 DC 06/27 Gluconate Complex IV 07/05 1459 1434 Sodium Chloride 100 ML Ferrous Gluconate 325 MG DAILY 06/24 1000 AC 06/28 PO 1000 Furosemide 20 MG DAILY 06/27 1153 AC 06/28 PO 0959 Gabapentin 100 MG Q8 06/26 2200 AC 06/28 PO 0518 Heparin Sodium 5,000 UNIT Q8 06/24 1615 AC 06/28 (Porcine) SC 0518 Iron Sucrose 200 MG DAILY 06/28 1000 AC 06/28 Sodium Chloride 100 ML IV 07/01 1029 1233 Levothyroxine Sodium 0.025 MG DAILY AC 06/24 0700 AC 06/28 PO 0518 Nitroglycerin 0.5 GM Q6H 06/25 1600 AC 06/25 TOP 1603 Non-Formulary 0 SEE ADMIN CRITERIA 06/27 1645 DC Medication ANY Pantoprazole Sodium 40 MG BID 06/24 1000 AC 06/28 IV 1233 Prednisone 10 MG QAM 06/24 1000 AC 06/28 PO 0959 Tramadol HCl 50 MG Q6 PRN 06/26 0930 AC 06/28 PO 1232 Last 24 Hrs of Lab/Rubin Results Last 24 Hrs of Labs/Mics: Laboratory Tests 06/28/17 0715: Anion Gap 7, Estimated GFR 26 L, BUN/Creatinine Ratio 23.2, CBC w Diff NO MAN DIFF REQ, RBC 3.30 L, MCV 90.5, MCH 30.1, MCHC 33.3, RDW 15.4 H, MPV 8.3, Gran % 69.2, Lymphocytes % 23.4, Monocytes % 6.6, Eosinophils % 0.3, Basophils % 0.5, Absolute Granulocytes 5.3, Absolute Lymphocytes 1.8, Absolute Monocytes 0.5, Absolute Eosinophils 0, Absolute Basophils 0 Assessment/Plan Assessment: 76F PMH HTN, HFpEF, history of DVT on Xarelto, history of anemia, TACO on CPAP, anxiety, depression, rheumatoid arthritis, history of colonic perfusion s/p colostomy, hypothyroidism admitted for symptomatic anemia requiring transfusion, dyspnea with minimal exertion, and weakness. Following the patient on telemetry floor for the following problems: Symptomatic anemia: -Probably multifactorial considering her GI AV malformation, chronic kidney injury and also use of hydroxychloroquine for RA that can suppress bone marrow. -Ferritin is normal and total iron-binding capacity is also normal -H&H is 9.9/29.9, stable. Will keep Hb>8 -Her reticulocyte count is low -Her erythropoietin level 24.0 -Continue supplemental iron. -GI recommended to follow as outpatient for further workup with [facility]. -Follow hematology recommendations. Acute on chronic kidney injury:(IMPROVING) -Probably due to dehydration -We will monitor input and output -Avoid nephrotoxins medications, NSAIDs -We will encourage patient to take more oral fluids Type II TN: -Probably due to restrictive heart disease and anemia. Anemia causing her tachycardia and hyperdynamic state. -No EKG changes -Continue NTG paste and carvedalol. -Cardiology will follow patient outpatient for cardiac cath. Pheripheral neuropathy: -Gabapentin 100mg and then continue tid if patient tolerates. History of rheumatoid arthritis -Hydroxychloroquine was stopped considering her anemia. -Continue chronic steroids prednisone 10mg daily History of chronic neck pain: -Patient didn't want diluadid causing halucinations according to patient. -Tramadol was started to control pain. History of hypothyroidism: -Continue levothyroxine History of DVT: -Patient was on xeralto that was stopped because of anemia. History of hypertension: -Continue home medications History of colonic perforation status post colostomy: -Patient has Emanuel procedure due to colonic perforation -Her colostomy is working History of diastolic CHF: -PO lasix was resumed 20mg daily. -We will follow cardiology recommendations. DVT prophylaxis: Mechanical and subcutaneous heparin CODE STATUS: DNR/DNI Problem List: 1. GI bleed Pain Ratin Pain Location: NA Pain Goal: Remain pain free Pain Plan: see AP Tomorrow's Labs & Rationales: NOVA Rainey MD,Beth 06/28/17 1312: Attending MD Review Statement Attending Statement Attending MD Statement: examined this patient, discuss w/resident/PA/[employer], agreed w/resident/PA/[employer], reviewed EMR data (avail) Attending Assessment/Plan: Patient complains of for neck pain and she currently is using a rice sock. Denies any difficulty breathing fever chills nausea vomiting or abdominal pain. She has not ambulated yet. Her vital signs are currently stable and she is afebrile with 92% saturation on room air. Chest exam is clear abdomen soft nontender. Neuro exam is nonfocal. Hematocrit is 29.9 and creatinine is 1.9. Assessment plan Acute and chronic anemia History of unprovoked femoral popliteal vein DVT- it is not clear whether patient had hypermobility workup at [facility] Plan Out of bed and ambulate with assist Keep hemoglobin more than 7 Plans for cardiac catheterization next Friday Please obtain records for any hypermobility workup. Patient may be candidate for switching Xeralto to aspirin. Recheck CBC tomorrow Out of bed and ambulate
[2017-06-28 08:53] LABS: ABSOLUTE BASOPHIL COUNT 0 /CUMM (0.0-0.2); ABSOLUTE EOSINOPHIL COUNT 0 /CUMM (0.0-0.7); ABSOLUTE GRANULOCYTE CT 5.3 /CUMM (1.4-6.5); ABSOLUTE LYMPH COUNT 1.8 /CUMM (1.2-3.4); ABSOLUTE MONOCYTE COUNT 0.5 /CUMM (0.10-0.60); BASOPHIL % 0.5 % (0.0-2.0); EOSINOPHIL % 0.3 % (0-5); GRANULOCYTE % 69.2 % (42.2-75.2); HEMATOCRIT 29.9 % (37-47); MEAN CORPUSCULAR HGB 30.1 PG (27.0-31.0); MEAN CORPUSCULAR HGB CONC 33.3 G/DL (33.0-37.0); MEAN CORPUSCULAR VOLUME 90.5 FL (81.0-99.0); MEAN PLATELET VOLUME 8.3 FL (7.4-10.4); PLATELET COUNT 200 /CUMM (130-400); RBC DISTRIBUTION WIDTH 15.4 % (11.5-14.5); WHITE BLOOD CELL COUNT 7.7 /CUMM (4.8-10.8)
[2017-06-28 14:15] VITALS: BP 110/56
[2017-06-28 22:33] VITALS: BP 138/60
--- NOTE | 2017-06-29 05:56 | PN- Housestaff ---
[facility] Subjective Follow-up For: TYPE 2 KS Acute on chronic kidney injury(improving) Symptomatic anemia(improving) Pheripheral neropathy Tele-Events Since Last Visit: Sinus bradycardia heart rate between 5658 Subjective: No overnight events. Patient remained afebrile overnight. His seen and examined this morning. She denied any chest pain, short of breath, nausea, vomiting, chills, fever, abdominal pain and dysuria. She was complaining of pain at IV site. Review of Systems Constitutional: Denies: chills, fever. EENTM: Reports: no symptoms. Cardiovascular: Denies: chest pain, palpitations. Respiratory: Reports: no symptoms. Gastrointestinal: Reports: no symptoms. Genitourinary: Reports: no symptoms. Musculoskeletal: Reports: no symptoms. Neurological/Psychological: Reports: no symptoms. Objective Last 24 Hrs of Vital Signs/I&O Vital Signs Date Time Temp Pulse Resp B/P B/P Pulse O2 O2 Flow FiO2 Mean Ox Delivery Rate 06/29 0709 97.7 54 20 130/70 94 Room Air 06/29 0000 Room Air 06/28 2233 98.1 62 16 138/60 95 Room Air 06/28 2103 64 122/66 06/28 1415 97.6 60 20 110/56 94 Room Air 06/28 0959 54 150/60 Intake & Output 06/29 1600 06/29 0800 06/29 0000 Intake Total 120 240 Output Total 350 Balance -230 240 Intake, Oral 120 240 Output, Urine 350 Physical Exam General Appearance: Alert, Oriented X3, Cooperative Skin: No Rashes Skin Temp/Moisture Exam: Warm/Dry Sepsis Skin Exam (color): Normal for Ethnicity HEENT: Atraumatic, PERRLA, EOMI Neck: Supple Cardiovascular: Normal S1, Normal S2 Lungs: Decreased breath sounds b/l Abdomen: Soft, No Tenderness Neurological: Normal Speech, Normal Tone Extremities: Grade 1 pedal edema b/l Assessment/Plan Assessment: 76F PMH HTN, HFpEF, history of DVT on Xarelto, history of anemia, TACO on CPAP, anxiety, depression, rheumatoid arthritis, history of colonic perfusion s/p colostomy, hypothyroidism admitted for symptomatic anemia requiring transfusion, dyspnea with minimal exertion, and weakness. Following the patient on telemetry floor for the following problems: Symptomatic anemia: -Probably multifactorial considering her GI AV malformation, chronic kidney injury and also use of hydroxychloroquine for RA that can suppress bone marrow. -H&H is 9.3/28.4. Will keep Hb>8 -Her reticulocyte count is low -Her erythropoietin level 24.0 -Continue iv iron transfusion. -GI recommended to follow as outpatient for further workup with [facility]. -Follow hematology recommendations. Acute on chronic kidney injury:(IMPROVING) -Probably due to dehydration -We will monitor input and output -Avoid nephrotoxins medications, NSAIDs -We will encourage patient to take more oral fluids Type II KS: -Probably due to restrictive heart disease and anemia. Anemia causing her tachycardia and hyperdynamic state. -No EKG changes -Continue NTG paste and carvedalol. -Cardiology will follow patient outpatient for cardiac cath. Pheripheral neuropathy: -Gabapentin 100mg and then continue tid if patient tolerates. History of rheumatoid arthritis -Hydroxychloroquine was stopped considering her anemia. -Continue chronic steroids prednisone 10mg daily History of chronic neck pain: -Patient didn't want diluadid causing halucinations according to patient. -Tramadol was started to control pain. History of hypothyroidism: -Continue levothyroxine History of DVT: -Patient was on xeralto that was stopped because of anemia. History of hypertension: -Continue home medications History of colonic perforation status post colostomy: -Patient has Emanuel procedure due to colonic perforation -Her colostomy is working History of diastolic CHF: -PO lasix was resumed 20mg daily. -We will follow cardiology recommendations. DVT prophylaxis: Mechanical and subcutaneous heparin CODE STATUS: DNR/DNI Problem List: 1. Zwhpn-vw-swnrdch kidney injury 2. Elevated troponin 3. Symptomatic anemia Pain Ratin Pain Location: none Pain Goal: Remain pain free Pain Plan: pain pathway Tomorrow's Labs & Rationales: cbc/bep Redd CURTIS,Beth 06/29/17 1148: Attending MD Review Statement Attending Statement Attending Assessment/Plan: Attending Statement: examined this patient, discuss w/resident/PA/MACHINE GREASER, agreed w/resident/PA/MACHINE GREASER, reviewed EMR data (avail) Attending Assessment/Plan: Patient is sitting in chair this morning. She feels tired. Denies any difficulty breathing fever chills nausea vomiting or abdominal pain. She has not ambulated yet. Her vital signs are currently stable and she is afebrile with 94% saturation on room air. Chest exam is clear abdomen soft nontender. Colostomy bag noted. Neuro exam is nonfocal. Hematocrit is 28.4 and creatinine is 1.9. Assessment plan Acute and chronic anemia History of unprovoked femoral popliteal vein DVT- it is not clear whether patient had hypermobility workup at [facility] Plan Out of bed and ambulate with assist Keep hemoglobin more than 7 Plans for cardiac catheterization next Friday Please obtain records for any hypercoagulability workup. Patient may be candidate for switching Xeralto to aspirin. Recheck CBC tomorrow Out of bed and ambulate Recheck iron studies tomorrow
[2017-06-29 07:09] VITALS: BP 130/70
[2017-06-29 07:45] LABS: ABSOLUTE BASOPHIL COUNT 0 /CUMM (0.0-0.2); ABSOLUTE EOSINOPHIL COUNT 0 /CUMM (0.0-0.7); ABSOLUTE GRANULOCYTE CT 5.1 /CUMM (1.4-6.5); ABSOLUTE LYMPH COUNT 1.6 /CUMM (1.2-3.4); ABSOLUTE MONOCYTE COUNT 0.4 /CUMM (0.10-0.60); BASOPHIL % 0.4 % (0.0-2.0); EOSINOPHIL % 0 % (0-5); GRANULOCYTE % 71.5 % (42.2-75.2); HEMATOCRIT 28.4 % (37-47); MEAN CORPUSCULAR HGB CONC 32.8 G/DL (33.0-37.0); MEAN CORPUSCULAR VOLUME 91.3 FL (81.0-99.0); MEAN PLATELET VOLUME 8.1 FL (7.4-10.4); PLATELET COUNT 198 /CUMM (130-400); RBC DISTRIBUTION WIDTH 15.7 % (11.5-14.5); RED BLOOD CELL CT 3.11 /CUMM (4.20-5.40); WHITE BLOOD CELL COUNT 7.1 /CUMM (4.8-10.8)
--- NOTE | 2017-06-29 08:08 | PN- Student ---
Subjective Subjective: Patient resting in recline chair. Complains of pain around IV access. Denied chest pain, fever. Patient seen and examined this morning. Objective Objective: Vitals: T= 97.7 HR= 54 BP= 130/70 O2Sat= 94 RA RR= 20 I&O (06/28/17): I= 440 O= 100 PE: General= Patient alarte and oriented x3, in no distress Lungs= clear bilateral, no added sounds CVS= regular rate / rythm, no mumurs S3 or S4 Extremities: lower extremity +1 pedal edema up to the santana (improving) Results Results: Laboratory Tests 06/29/17 0655: Anion Gap 9, Estimated GFR 26 L, BUN/Creatinine Ratio 23.7, CBC w Diff NO MAN DIFF REQ, RBC 3.11 L, MCV 91.3, MCH 30.0, MCHC 32.8 L, RDW 15.7 H, MPV 8.1, Gran % 71.5, Lymphocytes % 23.1, Monocytes % 5.0, Eosinophils % 0, Basophils % 0.4, Absolute Granulocytes 5.1, Absolute Lymphocytes 1.6, Absolute Monocytes 0.4 , Absolute Eosinophils 0, Absolute Basophils 0 06/28/17 0715: Anion Gap 7, Estimated GFR 26 L, BUN/Creatinine Ratio 23.2, CBC w Diff NO MAN DIFF REQ, RBC 3.30 L, MCV 90.5, MCH 30.1, MCHC 33.3, RDW 15.4 H, MPV 8.3, Gran % 69.2, Lymphocytes % 23.4, Monocytes % 6.6, Eosinophils % 0.3, Basophils % 0.5, Absolute Granulocytes 5.3, Absolute Lymphocytes 1.8, Absolute Monocytes 0.5, Absolute Eosinophils 0, Absolute Basophils 0 06/27/17 0711: Anion Gap 5, Estimated GFR 27 L, BUN/Creatinine Ratio 27.2 H, CBC w Diff NO MAN DIFF REQ, RBC 3.15 L, MCV 91.1, MCH 29.9, MCHC 32.8 L, RDW 15.3 H, MPV 8.4, Gran % 73.2, Lymphocytes % 20.2 L, Monocytes % 6.3, Eosinophils % 0, Basophils % 0.3, Absolute Granulocytes 5.2, Absolute Lymphocytes 1.4, Absolute Monocytes 0.4, Absolute Eosinophils 0, Absolute Basophils 0 06/26/17 1900: Urine Total Volume 1800 H, Ur Total Protein 24 Hr 3510.0 H Assessment/Plan Assessment: 76 y/o F with hx of RA, colon perforation s/p Emanuel's procedure with end colostomy, neurogenic pain. Following up for symptomatic anemia and elevated troponin. Sinus bradycardia on monitor between 56-58. Plan: Symptomatic anemia: -Probably multifactorial chronic disease, kidney injury, GI bleed, hydroxychloroquine use -H&H stable (Hg 9.3 from 9.9 & Hct 28.4 from 29.9) -Cont. iron supplements -iron studies -F/U CBC's -F/U with GI for further eval with [facility] MARVEL (improving): -probably due to dehydration -monitor I&O Type II [place]: -probably due to anemia -Cont. NGT and Carvedol -F/U with cardiology for outp[atient cardiac cath Periheral neurophathy: -Cont. Gabapentin RA: -Hydroxychloroquine was stopped due to anemia -Cont. prednisone Hypothyroidism: -Cont. home meds DVT: -Hx of unprovoken femoiral popliteal vein DVT. Not clear if hypermobility workup was done at [facility] -Xarelto vs aspirin -cont. mechanical and Sub Q hep -OOB
[2017-06-29 13:45] VITALS: BP 110/48
[2017-06-29 21:50] VITALS: BP 132/60
--- NOTE | 2017-06-30 06:58 | PN- Housestaff ---
[facility] 06[facility] 0657: Subjective Follow-up For: TYPE 2 MD Acute on chronic kidney injury(improving) Symptomatic anemia(improving) Pheripheral neropathy Tele-Events Since Last Visit: Sinus rhythm with heart rate 5763 with PVCs Subjective: No overnight events. Patient remained afebrile overnight. Seen and examined this morning. She denied any chest pain, palpitation, vomiting, chills, fever, abdominal pain dysuria. Patient reported nausea after blood draw. Her pedal edema has improved. Review of Systems Constitutional: Reports: see HPI. Objective Last 24 Hrs of Vital Signs/I&O Vital Signs Date Time Temp Pulse Resp B/P B/P Pulse O2 O2 Flow FiO2 Mean Ox Delivery Rate 06/30 0726 57 106/60 06/30 0701 97.7 57 12 106/60 95 Room Air 06/29 2259 Room Air 06/29 2150 97.9 67 20 132/60 95 Room Air 06/29 2133 65 134/72 06/29 1345 97.5 63 20 110/48 93 Room Air 06/29 0916 54 130/70 Intake & Output 06/30 0800 06/30 0000 06/29 1600 Intake Total 220 240 550 Output Total 325 375 425 Balance -105 -135 125 Intake, IV 100 Intake, Oral 220 240 450 Output, Urine 325 375 425 Patient 150 lb Weight Weight Chair scale Measurement Method Physical Exam General Appearance: Alert, Oriented X3, Cooperative Skin: No Rashes Skin Temp/Moisture Exam: Warm/Dry Sepsis Skin Exam (color): Normal for Ethnicity HEENT: Atraumatic, PERRLA, EOMI Neck: Supple Cardiovascular: Normal S1, Normal S2 Lungs: Decreased breath sounds Abdomen: Soft, No Tenderness Neurological: Normal Speech, Normal Tone Extremities: No Edema Assessment/Plan Assessment: 76F PMH HTN, HFpEF, history of DVT on Xarelto, history of anemia, TACO on CPAP, anxiety, depression, rheumatoid arthritis, history of colonic perfusion s/p colostomy, hypothyroidism admitted for symptomatic anemia requiring transfusion, dyspnea with minimal exertion, and weakness. Following the patient on telemetry floor for the following problems: Symptomatic anemia: -Probably multifactorial considering her GI AV malformation, chronic kidney injury and also use of hydroxychloroquine for RA that can suppress bone marrow. -Her reticulocyte count is low -Her erythropoietin level 24.0 -Continue iv iron transfusion. -GI recommended to follow as outpatient for further workup with [facility]. -We will follow nephro recommendations as patient's iron and ferritin are high. Acute on chronic kidney injury:(IMPROVING) -Probably due to dehydration -We will monitor input and output -Avoid nephrotoxins medications, NSAIDs -We will encourage patient to take more oral fluids Type II MD: -Probably due to restrictive heart disease and anemia. Anemia causing her tachycardia and hyperdynamic state. -No EKG changes -Continue NTG paste and carvedalol. -Cardiology will follow patient outpatient for cardiac cath/ stress test. Pheripheral neuropathy: -Gabapentin 100mg and then continue tid if patient tolerates. History of rheumatoid arthritis -Hydroxychloroquine was stopped considering her anemia. -Continue chronic steroids prednisone 10mg daily History of chronic neck pain: -Patient didn't want diluadid causing halucinations according to patient. -Tramadol was started to control pain. History of hypothyroidism: -Continue levothyroxine History of DVT: -Patient was on xeralto that was stopped because of anemia. History of hypertension: -Continue home medications History of colonic perforation status post colostomy: -Patient has Emanuel procedure due to colonic perforation -Her colostomy is working History of diastolic CHF: -PO lasix was resumed 20mg daily. -We will follow cardiology recommendations. DVT prophylaxis: Mechanical and subcutaneous heparin CODE STATUS: DNR/DNI Problem List: 1. Symptomatic anemia 2. Elevated troponin 3. [id number] kidney injury Pain Ratin Pain Location: neck Pain Goal: Pain 4 or less Pain Plan: pain pathway Tomorrow's Labs & Rationales: tracy Rainey MD,Beth 06/30/17 1124: Attending MD Review Statement Attending Statement Attending Assessment/Plan: Attending MD Statement: examined this patient, discuss w/resident/PA/CLINICAL CODER, agreed w/resident/PA/CLINICAL CODER, reviewed EMR data (avail) Attending Assessment/Plan: Patient is sitting in chair this morning. She feels moderate neck pain as usual. Denies any difficulty breathing fever chills nausea vomiting or abdominal pain. Her vital signs are currently stable and she is afebrile with 95% saturation on room air. Chest exam is clear abdomen soft nontender. Colostomy bag noted. Neuro exam is nonfocal. Hematocrit is 28.8 and creatinine is 1.9. Iron level is now 205 and ferritin 401. Assessment plan Acute and chronic anemia History of unprovoked femoral popliteal vein DVT- it is not clear whether patient had hypercoagulability workup at [facility] Plan Out of bed and ambulate with assist Keep hemoglobin more than 7 Plans for cardiac catheterization this week Recheck CBC tomorrow Out of bed and ambulate Complete the IV iron therapy Continue oral iron I had a long discussion with patient's about risks and benefit of for restarting Xeralto and the possible insertion of IVC filter. Based on discussion patient the is agreeable to not restarting Xeralto. She understands that there is a risk of recurrence of DVT while not on Xeralto. Patient does not want IVC filter at this point. I encouraged her to obtain A Capsule Study Done As Outpatient.
[2017-06-30 07:01] VITALS: BP 106/60
--- NOTE | 2017-06-30 07:47 | PN- Hematology ---
Subjective Subjective: She continues to have diffuse myalgia. She denies any bleeding. She denies any fever or chills. She just feels unwell overall. Review of Systems Constitutional: Reports: weakness. Denies: chills, diaphoresis, fever, malaise. Cardiovascular: Denies: chest pain. Respiratory: Denies: short of breath. Gastrointestinal: Denies: nausea, bloody stool. Genitourinary: Denies: dysuria. Musculoskeletal: Reports: back pain. Skin: Denies: rash. Neurological/Psychological: Reports: depressed, weakness. Hematologic/Endocrine: Denies: bruising, bleeding. All Other Systems: Reviewed and Negative Objective Vital Signs and I&Os Vital Signs Date Time Temp Pulse Resp B/P B/P Pulse O2 O2 Flow FiO2 Mean Ox Delivery Rate 06/30 0726 57 106/60 06/30 0701 97.7 57 12 106/60 95 Room Air 06/29 2259 Room Air 06/29 2150 97.9 67 20 132/60 95 Room Air 06/29 2133 65 134/72 06/29 1345 97.5 63 20 110/48 93 Room Air 06/29 0916 54 130/70 Intake & Output 06/30 0800 06/30 0000 06/29 1600 06/29 0800 06/29 0000 06/28 1600 Intake Total 220 240 550 120 240 Output Total 325 375 425 350 Balance -105 -135 125 -230 240 Intake, IV 100 Intake, Oral 220 240 450 120 240 Output, Urine 325 375 425 350 Patient 68.039 kg Weight Weight Chair scale Measurement Method Physical Exam: General Appearance: no apparent distress, alert, awake, comfortable, thin Head: atraumatic, normal appearance Eyes: Sclera anicteric Ears, Nose, Throat: normal pharynx Neck: supple Respiratory: normal breath sounds, chest non-tender, quiet respiration Cardiovascular: regular rate/rhythm Gastrointestinal: normal bowel sounds, soft, LLQ colostomy Extremities: pedal edema (bilaterally) Neurologic/Psych: awake, alert, oriented x 3, slight flat affect Cranial Nerves: normal hearing, normal speech, Skin: normal color, warm/dry Lymphatic: no anterior cervical selin Current Medications: Current Medications Sig/Rick Start time Last Medication Dose Route Stop Time Status Admin Acetaminophen 500 MG .STK-MED ONE 06/30 2223 DC PO 06/29 2224 Acetaminophen 500 MG Q6P PRN 06/26 0830 AC 06/29 PO 2225 Carvedilol 25 MG BID 06/24 1000 AC 06/30 PO 0726 Ferrous Gluconate 325 MG DAILY 06/24 1000 AC 06/30 PO 0726 Furosemide 20 MG DAILY 06/27 1153 AC 06/30 PO 0726 Gabapentin 100 MG Q8 06/26 2200 AC 06/30 PO 0539 Heparin Sodium 5,000 UNIT Q8 06/24 1615 AC 06/30 (Porcine) SC 0539 Iron Sucrose 200 MG DAILY 06/28 1000 AC 06/29 Sodium Chloride 100 ML IV 07/01 1029 1423 Levothyroxine Sodium 0.025 MG DAILY AC 06/24 0700 AC 06/30 PO 0539 Nitroglycerin 0.5 GM Q6H 06/25 1600 AC 06/25 TOP 1603 Pantoprazole Sodium 40 MG BID 06/24 1000 AC 06/29 IV 2125 Prednisone 10 MG QAM 06/24 1000 AC 06/30 PO 0726 Tramadol HCl 50 MG Q6 PRN 06/26 0930 AC 06/30 PO 0725 Results Last 24 Hours of Lab Results: Laboratory Tests 06/30 0650 Chemistry Sodium Pending Potassium Pending Chloride Pending Carbon Dioxide Pending Anion Gap Pending BUN Pending Creatinine Pending BUN/Creatinine Ratio Pending Iron Pending TIBC Pending Ferritin Pending Hematology CBC w Diff Pending WBC Pending RBC Pending Hgb Pending Hct Pending MCV Pending MCH Pending MCHC Pending RDW Pending Plt Count Pending MPV Pending Assessment/Plan Hematology Assessment/Recommendations: Ms. Corona is a 76-year-old female with CHF, COPD,Obesity, hypothyroidism, obstructive sleep apnea on CPAP, hypertension, small bowel AVM, colonic perforation secondary to colonoscopy status post colostomy and Emanuel's procedure, RA on hydroxychloroquine and prednisone, DVT on rivaroxaban, chronic kidney disease, and chronic anemia who presented to the hospital with shortness of breath and anemia. On admission, she was noted to have a hemoglobin of 6.7 with hematocrit of 20.6. Her blood work demonstrated serum iron 15, TIBC of 283 , and ferritin of 43.8. she was noted to have a creatinine of 2.4. Bilirubin was normal. LDH was normal. Reticulocyte is low at 2.1. Her vitamin B12 level was normal. Folate level was normal. Her thyroid function was normal during recent admission. She had recent upper endoscopy which demonstrated possible AVMs. She has been seen by Dr. Maier of Gastroenterology. he is concern for possible small-bowel AVMs which was exacerbated by her anticoagulation. She has been given 2 units of pRBC since admission. Creatinine has improved. Anemeia is stable. She is off hydroxychloroquine. She continues to feel unwell. Anemia is likely multifactorial which includes RA, medications, GI bleeding, and CKD. SPEP is negative for monoclonal gammopathy. She is off anticoagulation due to anemia and possible GI bleeding. She gives a history of provoked DVT. She had DVT during hospitalization. Records should be obtained. She may only require 3 months of anticoagulation. Symptomatic anemia: -gastrointestinal bleeding workup as per GI -follow up with Nephrology -likely candidate for ENRIQUETA if Hgb <10 -transfusion as needed DVT: -obtain records from outside hospital regarding diagnosis -consider discontinuation if provoked DVT and >3 months of therapy Please call [phone] with any questions or concerns. Problem List: 1. [id number] kidney injury 2. Symptomatic anemia 3. GI bleed 4. Chronic anemia 5. Rheumatoid arthritis
[2017-06-30 07:58] LABS: ABSOLUTE BASOPHIL COUNT 0 /CUMM (0.0-0.2); ABSOLUTE EOSINOPHIL COUNT 0 /CUMM (0.0-0.7); ABSOLUTE GRANULOCYTE CT 5.3 /CUMM (1.4-6.5); ABSOLUTE LYMPH COUNT 1.7 /CUMM (1.2-3.4); ABSOLUTE MONOCYTE COUNT 0.4 /CUMM (0.10-0.60); BASOPHIL % 0.6 % (0.0-2.0); EOSINOPHIL % 0 % (0-5); GRANULOCYTE % 70.7 % (42.2-75.2); HEMATOCRIT 28.8 % (37-47); MEAN CORPUSCULAR HGB 29.8 PG (27.0-31.0); MEAN CORPUSCULAR HGB CONC 32.6 G/DL (33.0-37.0); MEAN CORPUSCULAR VOLUME 91.4 FL (81.0-99.0); MEAN PLATELET VOLUME 8.2 FL (7.4-10.4); PLATELET COUNT 196 /CUMM (130-400); RBC DISTRIBUTION WIDTH 15.9 % (11.5-14.5); RED BLOOD CELL CT 3.15 /CUMM (4.20-5.40); WHITE BLOOD CELL COUNT 7.5 /CUMM (4.8-10.8)
--- NOTE | 2017-06-30 12:56 | PN- Cardiology ---
Subjective Subjective: No specific complaints. Objective Vital Signs and I&Os Vital Signs Date Time Temp Pulse Resp B/P B/P Pulse O2 O2 Flow FiO2 Mean Ox Delivery Rate 06/30 0726 57 106/60 06/30 0701 97.7 57 12 106/60 95 Room Air 06/29 2259 Room Air 06/29 2150 97.9 67 20 132/60 95 Room Air 06/29 2133 65 134/72 06/29 1345 97.5 63 20 110/48 93 Room Air Intake & Output 06/30 1600 06/30 0000 06/29 1600 06/29 0000 Intake Total 220 240 550 120 240 Output Total 325 375 425 350 Balance -105 -135 125 -230 240 Intake, IV 100 Intake, Oral 220 240 450 120 240 Output, Urine 325 375 425 350 Patient 150 lb Weight Weight Chair scale Measurement Method Physical Exam: Chronically ill-appearing elderly female who appears spell who has nasal oxygen in place. Vital signs: See above. HEENT: Normocephalic, atraumatic, EOMI, slightly dry mucous membranes. Neck: No JVD, no bruits. Lungs: Decreased breath sounds at the bases right greater than left. Heart: S1, S2 with grade 2/6 systolic ejection type murmur best heard at the base. Abdomen: Soft, positive bowel sounds, nontender, colostomy bag in place. Extremities: No edema. Current Medications: Current Medications Sig/Rick Start time Last Medication Dose Route Stop Time Status Admin Acetaminophen 500 MG .STK-MED ONE 06/294 DC PO 06/29 222 Acetaminophen 500 MG Q6P PRN 06/26 0930 AC 06/30 PO 1110 Carvedilol 25 MG BID 06/24 1000 AC 06/30 PO 0726 Ferrous Gluconate 325 MG DAILY 06/24 1000 AC 06/30 PO 0726 Furosemide 20 MG DAILY 06/27 1153 AC 06/30 PO 0726 Gabapentin 100 MG Q8 06/26 2200 AC 06/30 PO 0539 Heparin Sodium 5,000 UNIT Q8 06/24 1615 AC 06/30 (Porcine) SC 0539 Iron Sucrose 200 MG DAILY 06/28 1000 AC 06/29 Sodium Chloride 100 ML IV 07/01 1029 1423 Levothyroxine Sodium 0.025 MG DAILY AC 06/24 0700 AC 06/30 PO 0539 Nitroglycerin 0.5 GM Q6H 06/25 1600 AC 06/25 TOP 1603 Omeprazole 40 MG BID 06/30 1040 AC PO Pantoprazole Sodium 40 MG BID 06/24 1000 DC 06/29 IV 2125 Prednisone 10 MG QAM 06/24 1000 AC 06/30 PO 0726 Tramadol HCl 50 MG Q6 PRN 06/26 0930 AC 06/30 PO 0725 Results Last 48 Hrs of Labs/Mics: Laboratory Tests 06/30/17 0650: Anion Gap 5, Estimated GFR 26 L, BUN/Creatinine Ratio 25.3 H, Iron 205 H, TIBC 236 L, Ferritin 401.0 H, CBC w Diff NO MAN DIFF REQ, RBC 3.15 L, MCV 91.4, MCH 29.8, MCHC 32.6 L, RDW 15.9 H, MPV 8.2, Gran % 70.7, Lymphocytes % 22.7, Monocytes % 6.0, Eosinophils % 0, Basophils % 0.6, Absolute Granulocytes 5.3, Absolute Lymphocytes 1.7, Absolute Monocytes 0.4, Absolute Eosinophils 0, Absolute Basophils 0 06/29/17 0655: Anion Gap 9, Estimated GFR 26 L, BUN/Creatinine Ratio 23.7, CBC w Diff NO MAN DIFF REQ, RBC 3.11 L, MCV 91.3, MCH 30.0, MCHC 32.8 L, RDW 15.7 H, MPV 8.1, Gran % 71.5, Lymphocytes % 23.1, Monocytes % 5.0, Eosinophils % 0, Basophils % 0.4, Absolute Granulocytes 5.1, Absolute Lymphocytes 1.6, Absolute Monocytes 0.4 , Absolute Eosinophils 0, Absolute Basophils 0 Assessment/Plan Assessment/Plan [id number] w/ hx anxiety/depression, RA on steroid Rx, DVT on NOAC, obesity, TACO , HTN, LVH, AR, and diastolic dysfunction, colonic perforation following colonoscopy s/p Constance procedure September 2014 complicated by type II CO, MARVEL, bacteremia, etc. and chronic anemia who presented to the ED after blood work again revealed marked anemia. GI bleed of uncertain etiology (possibly 2/2 small bowel AVMs) exacerbated by NOAC for DVT. Suspect troponin elevation is on the basis of a type II CO and not an acute coronary syndrome. Recommendations: * Contact her primary care physician (Corrina Fortune M.D.) regarding her DVT, to see if her NOAC can be discontinued. * Continue to maintain hemoglobin at or above 8 g/dl. * Will further discuss role of pharmacologic stress testing versus cardiac catheterization. * Continue DVT prophylaxis. Continue telemetry? Yes
--- NOTE | 2017-06-30 13:39 | PN- Student ---
Subjective Subjective: No acute events overnight. Patient denied chest pain, palpitation, SOB. Objective Objective: Vitals: T= 97.7 HR= 57 BP= 106/60 RR= 12 O2Sat= 95 RA PE: General= alert and oriented Lungs= clear bilateral CVS= ragular rate and rythm GI= colostomy bag Results Results: Laboratory Tests 06/30/17 0650: Anion Gap 5, Estimated GFR 26 L, BUN/Creatinine Ratio 25.3 H, Iron 205 H, TIBC 236 L, Ferritin 401.0 H, CBC w Diff NO MAN DIFF REQ, RBC 3.15 L, MCV 91.4, MCH 29.8, MCHC 32.6 L, RDW 15.9 H, MPV 8.2, Gran % 70.7, Lymphocytes % 22.7, Monocytes % 6.0, Eosinophils % 0, Basophils % 0.6, Absolute Granulocytes 5.3, Absolute Lymphocytes 1.7, Absolute Monocytes 0.4, Absolute Eosinophils 0, Absolute Basophils 0 06/29/17 0655: Anion Gap 9, Estimated GFR 26 L, BUN/Creatinine Ratio 23.7, CBC w Diff NO MAN DIFF REQ, RBC 3.11 L, MCV 91.3, MCH 30.0, MCHC 32.8 L, RDW 15.7 H, MPV 8.1, Gran % 71.5, Lymphocytes % 23.1, Monocytes % 5.0, Eosinophils % 0, Basophils % 0.4, Absolute Granulocytes 5.1, Absolute Lymphocytes 1.6, Absolute Monocytes 0.4 , Absolute Eosinophils 0, Absolute Basophils 0 06/28/17 0715: Anion Gap 7, Estimated GFR 26 L, BUN/Creatinine Ratio 23.2, CBC w Diff NO MAN DIFF REQ, RBC 3.30 L, MCV 90.5, MCH 30.1, MCHC 33.3, RDW 15.4 H, MPV 8.3, Gran % 69.2, Lymphocytes % 23.4, Monocytes % 6.6, Eosinophils % 0.3, Basophils % 0.5, Absolute Granulocytes 5.3, Absolute Lymphocytes 1.8, Absolute Monocytes 0.5, Absolute Eosinophils 0, Absolute Basophils 0 Assessment/Plan Assessment: 76 y/o F with hx of RA, colon perforation s/p Emanuel's procedure with end colostomy, neurogenic pain. Following up for symptomatic anemia and elevated troponin. Plan: Symptomatic anemia: -Probably multifactorial chronic disease, kidney injury, GI bleed, hydroxychloroquine use -H&H stable -F/U CBC's -F/U with GI for further eval with [facility] MARVEL (improving): -probably due to dehydration -monitor I&O Type II [place]: -probably due to anemia -Cont. NGT and Carvedol -F/U with cardiology who recommended pharmacologic stress testing vs cardiac cath Periheral neurophathy: -Cont. Gabapentin RA: -Hydroxychloroquine was stopped due to anemia -Cont. prednisone Hypothyroidism: -Cont. home meds DVT: -Not clear if unprovoken or provoke femoral popliteal vein DVT. Unknown if any workup was done at [facility] (based on the record provided) -Hemotologist recommended discontinuation of anticoagulant if provoked DVT and > 3 months of therapy anne marie Loving -cont. mechanical and Sub Q hep -OOB
[2017-06-30 14:59] VITALS: BP 140/64
[2017-06-30 22:54] VITALS: BP 128/58
[2017-07-01 06:53] VITALS: BP 140/60
--- NOTE | 2017-07-01 07:57 | PN- Housestaff ---
[facility]: Subjective Follow-up For: TYPE 2 CA Acute on chronic kidney injury(improving) Symptomatic anemia(improving) Pheripheral neropathy Tele-Events Since Last Visit: Patient remained in sinus rhythm with heart rate between 5362 Subjective: No overnight events. Patient remained afebrile overnight. Seen and examined this morning. Patient reported tiredness. She denied any chest pain, palpitation, nausea, vomiting, chills, fever, abdominal pain dysuria. We had a discussion with patient yesterday about risks and benefit for restarting Xeralto and the possible insertion of IVC filter. Based on discussion patient the is agreeable to not restarting Xeralto. She understands that there is a risk of recurrence of DVT while not on Xeralto. Review of Systems Constitutional: Reports: weakness. Denies: chills, fever. EENTM: Reports: no symptoms. Cardiovascular: Denies: chest pain, palpitations. Respiratory: Denies: cough, short of breath, sputum production. Gastrointestinal: Denies: abdominal pain, constipation, diarrhea. Genitourinary: Reports: no symptoms. Musculoskeletal: Reports: no symptoms. Neurological/Psychological: Reports: no symptoms. Objective Last 24 Hrs of Vital Signs/I&O Vital Signs Date Time Temp Pulse Resp B/P B/P Pulse O2 O2 Flow FiO2 Mean Ox Delivery Rate 07/01 0653 97.9 58 20 140/60 95 Room Air 06/30 2254 98.2 20 20 128/58 95 Room Air 06/30 2144 65 128/58 06/30 1459 98.0 20 20 140/64 97 Intake & Output 07/01 0800 07/01 0000 06/30 1600 Intake Total 120 320 450 Output Total 501 850 Balance -381 320 -400 Intake, Oral 120 320 450 Output, Stool 1 Output, Urine 500 850 Patient 149 lb Weight Weight Chair scale Measurement Method Physical Exam General Appearance: Alert, Oriented X3, Cooperative Skin Temp/Moisture Exam: Warm/Dry Sepsis Skin Exam (color): Normal for Ethnicity HEENT: Atraumatic, PERRLA, EOMI Neck: Supple Cardiovascular: Normal S1, Normal S2 Lungs: Clear to Auscultation Abdomen: Soft, No Tenderness, colostomy on the left side Neurological: Normal Speech, Normal Tone, Sensation Intact Extremities: Pedal edema has improved Assessment/Plan Assessment: 76F PMH HTN, HFpEF, history of DVT on Xarelto, history of anemia, TACO on CPAP, anxiety, depression, rheumatoid arthritis, history of colonic perfusion s/p colostomy, hypothyroidism admitted for symptomatic anemia requiring transfusion, dyspnea with minimal exertion, and weakness. Following the patient on telemetry floor for the following problems: Symptomatic anemia: -Probably multifactorial considering her GI AV malformation, chronic kidney injury and also use of hydroxychloroquine for RA that can suppress bone marrow. -Her erythropoietin level 24.0 -Continue iv iron transfusion. -GI recommended to follow as outpatient for further workup with [facility]. -We will follow nephro recommendations as patient's iron and ferritin are high. Acute on chronic kidney injury:(IMPROVING) -Probably due to dehydration -We will monitor input and output -Avoid nephrotoxins medications, NSAIDs -We will encourage patient to take more oral fluids Type II CA: -Probably due to restrictive heart disease and anemia. Anemia causing her tachycardia and hyperdynamic state. -No EKG changes -Continue NTG paste and carvedalol. -Cardiology will follow patient outpatient for cardiac cath/ stress test. Pheripheral neuropathy: -Gabapentin 100mg and then continue tid if patient tolerates. History of rheumatoid arthritis -Hydroxychloroquine was stopped considering her anemia. -Continue chronic steroids prednisone 10mg daily History of chronic neck pain: -Patient didn't want diluadid causing halucinations according to patient. -Tramadol was started to control pain. History of hypothyroidism: -Continue levothyroxine History of DVT: -Patient was on xeralto that was stopped because of anemia. History of hypertension: -Continue home medications History of colonic perforation status post colostomy: -Patient has Emanuel procedure due to colonic perforation -Her colostomy is working History of diastolic CHF: -PO lasix was resumed 20mg daily. -We will follow cardiology recommendations. DVT prophylaxis: Mechanical and subcutaneous heparin CODE STATUS: DNR/DNI Problem List: 1. Symptomatic anemia 2. Elevated troponin 3. Lrsim-fu-qipjnxz kidney injury Pain Ratin Pain Location: none Pain Goal: Remain pain free Pain Plan: pain pathway Tomorrow's Labs & Rationales: cbc/bep Ginger Griffiths MD 07/01/17 1106: Attending MD Review Statement Attending Statement Attending MD Statement: examined this patient, discuss w/resident/PA/ASPHALT LAYER, agreed w/resident/PA/ASPHALT LAYER, reviewed EMR data (avail) Attending Assessment/Plan: 76F PMH HTN, HFpEF, history of DVT on Xarelto, history of anemia, TACO on CPAP, anxiety, depression, rheumatoid arthritis, history of colonic perfusion s/p colostomy, hypothyroidism admitted for symptomatic anemia requiring transfusion, dyspnea with minimal exertion, and weakness. Recently admitted for similar 1 month ago, had push enteroscopy which did not show source of bleeding. Has deteriorated since and Hgb was down to 6.7 on admission. No signs of bleeding, no melena, bloody stools, hematuria, or vaginal bleeding. On Xarelto at home for DVT in July 2016 at [facility], held here due to anemia. Labs show iron deficiency anemia with relatively low reticulocyte count and normal MCV. EKG was NSR, troponin 0.58 (similar to level at discharge 1 month ago). Given 1 unit pRBC. Patient looks and feels much better. She complains of left shoulder pain and stiffness. Her CBC is stable. A discussion was had over the weekend regarding continuation of Xarelto and patient will speak with her family about it. She refuses IVC filter. 1. Symptomatic anemia 2. Dyspnea on exertion 3. History of DVT 4. Type 2 myocardial infarction Plan - Continue on telemetry - Monitor CBC daily - Iron supplementation - Continue Tramadol and Gabapentin as this has improved her pain - Follow hematology, GI, cardiology consults - Transfuse to Hgb>8 - Continue home medications including home Lasix - DVT PPx - Possible transfer for cardiac cath tomorrow, will speak with cardiology for plan
[2017-07-01 08:03] LABS: ABSOLUTE BASOPHIL COUNT 0 /CUMM (0.0-0.2); ABSOLUTE EOSINOPHIL COUNT 0 /CUMM (0.0-0.7); ABSOLUTE GRANULOCYTE CT 4.9 /CUMM (1.4-6.5); ABSOLUTE LYMPH COUNT 1.7 /CUMM (1.2-3.4); ABSOLUTE MONOCYTE COUNT 0.4 /CUMM (0.10-0.60); BASOPHIL % 0.7 % (0.0-2.0); EOSINOPHIL % 0 % (0-5); GRANULOCYTE % 69.8 % (42.2-75.2); HEMATOCRIT 28.8 % (37-47); MEAN CORPUSCULAR HGB 30.2 PG (27.0-31.0); MEAN CORPUSCULAR HGB CONC 33.1 G/DL (33.0-37.0); MEAN CORPUSCULAR VOLUME 91.4 FL (81.0-99.0); MEAN PLATELET VOLUME 8.3 FL (7.4-10.4); PLATELET COUNT 186 /CUMM (130-400); RBC DISTRIBUTION WIDTH 16.2 % (11.5-14.5); RED BLOOD CELL CT 3.15 /CUMM (4.20-5.40); WHITE BLOOD CELL COUNT 7.1 /CUMM (4.8-10.8)
--- NOTE | 2017-07-01 13:13 | PN- Student ---
Subjective Subjective: No acute events overnight. Seen and examined this morning. Patient complains of chest pain this morning which she asusme was reflux. No radiation of the pain. Denied palpitations, fever, chills, SOB. Objective Objective: Vitals: T= 97. 9 HR= 58 RR= 20 BP= 140/60 O2sat= 95 RA I&O: I= 990 O= 1175 PE: General= alert, and oriented without any distress Lungs= Clear bilateral CVS= regular rate rythm, systolic murmur Extremities= +1 pedal edema (improving) Results Results: Laboratory Tests 07/01/17 0620: Anion Gap 8, Estimated GFR 24 L, BUN/Creatinine Ratio 21.5, CBC w Diff NO MAN DIFF REQ, RBC 3.15 L, MCV 91.4, MCH 30.2, MCHC 33.1, RDW 16.2 H, MPV 8.3, Gran % 69.8, Lymphocytes % 23.7, Monocytes % 5.8, Eosinophils % 0, Basophils % 0.7, Absolute Granulocytes 4.9, Absolute Lymphocytes 1.7, Absolute Monocytes 0.4, Absolute Eosinophils 0, Absolute Basophils 0, Retic Count 1.71 06/30/17 0650: Anion Gap 5, Estimated GFR 26 L, BUN/Creatinine Ratio 25.3 H, Iron 205 H, TIBC 236 L, Ferritin 401.0 H, CBC w Diff NO MAN DIFF REQ, RBC 3.15 L, MCV 91.4, MCH 29.8, MCHC 32.6 L, RDW 15.9 H, MPV 8.2, Gran % 70.7, Lymphocytes % 22.7, Monocytes % 6.0, Eosinophils % 0, Basophils % 0.6, Absolute Granulocytes 5.3, Absolute Lymphocytes 1.7, Absolute Monocytes 0.4, Absolute Eosinophils 0, Absolute Basophils 0 06/29/17 0655: Anion Gap 9, Estimated GFR 26 L, BUN/Creatinine Ratio 23.7, CBC w Diff NO MAN DIFF REQ, RBC 3.11 L, MCV 91.3, MCH 30.0, MCHC 32.8 L, RDW 15.7 H, MPV 8.1, Gran % 71.5, Lymphocytes % 23.1, Monocytes % 5.0, Eosinophils % 0, Basophils % 0.4, Absolute Granulocytes 5.1, Absolute Lymphocytes 1.6, Absolute Monocytes 0.4 , Absolute Eosinophils 0, Absolute Basophils 0 Assessment/Plan Assessment: 76 y/o F with hx of RA, colon perforation s/p Emanuel's procedure with end colostomy, neurogenic pain. Following up for symptomatic anemia and elevated troponin. Plan: Symptomatic anemia: -Probably multifactorial chronic disease, kidney injury, GI bleed, hydroxychloroquine use -H&H stable -F/U CBC's -F/U with GI for further eval with [facility] MARVEL (improving): -probably due to dehydration -monitor I&O Type II [place]: -probably due to anemia -Cont. NGT and Carvedol -F/U with cardiology who recommended pharmacologic stress testing vs cardiac cath Periheral neurophathy: -Cont. Gabapentin RA: -Hydroxychloroquine was stopped due to anemia -Cont. prednisone Hypothyroidism: -Cont. home meds DVT: -Not clear if unprovoken or provoke femoral popliteal vein DVT. Unknown if any workup was done at [facility] (based on the record provided) -Risk and benefits of anticoatgulatin therapy/IVC filter was discussed yesterday. Patint decided to discontinue Xarelto for now. -cont. mechanical and Sub Q hep -OOB
[2017-07-01 14:32] VITALS: BP 114/52
--- NOTE | 2017-07-01 17:55 | PN- Cardiology ---
Subjective Subjective: * No current chest discomfort or shortness of breath at rest. * creatinine is 2.0 * sinus rhythm Objective Vital Signs and I&Os Vital Signs Date Time Temp Pulse Resp B/P B/P Pulse O2 O2 Flow FiO2 Mean Ox Delivery Rate 07/01 1432 97.8 63 20 114/52 95 Room Air 07/01 0918 64 132/56 07/01 0653 97.9 58 20 140/60 95 Room Air 06/30 2254 98.2 20 20 128/58 95 Room Air 06/30 2144 65 128/58 Intake & Output 07/01 1600 07/01 0807/01 0000 06/30 1600 06/30 0000 Intake Total 800 120 320 450 220 240 Output Total 202 501 850 325 375 Balance 598 -381 320 -400 -105 -135 Intake, Oral 800 120 320 450 220 240 Output, Stool 2 1 Output, Urine 200 500 850 325 375 Patient 149 lb 150 lb Weight Weight Chair scale Chair scale Measurement Method Physical Exam: General: WD/overweight female in NAD; alert and oriented x 3 Neck: no JVD, no carotid bruit Heart: RRR with 2/6 systolic murmur Lungs: clear bilaterally ABdomen: soft, NT, +ve bowel sounds with colostomy Extremities: 1+ leg edema Assessment/Plan Assessment/Plan * This patient has restrictive heart disease as noted on her echocardiogram which has contributed to her issues with left and right heart failure. Severe anemia will lead to tachycardia and a hyperdynamic state that will increase intracardiac pressures and worsen heart failure. Her anemia is improved today. Coronary artery disease may also contribute to decreased myocardial compliance and I strongly suspect myocarcial ischemia. This is manifesting as repeated elevations of cardiac troponin. This patient will need a cardiac catheterization which is planned for tomorrow. Xarelto will be held. Change NTG to a NTG patch at 0.4mg/hr for 12 hours daily. Continue Coreg 25mg BID and Lasix 20mg daily. Begin aspirin 81mg daily. NTO except for medications after midnight. Patient will be transferred to [facility] for cardiac cath. Continue telemetry? Yes
[2017-07-01 21:23] VITALS: BP 122/62
[2017-07-02 06:59] VITALS: BP 152/66
[2017-07-02] MEDS ORDERED: OMEPRAZOLE20 M2 PO (07:13)
[2017-07-02] MEDS ORDERED: GABAPENTIN100 M2 PO (07:13)
[2017-07-02] MEDS ORDERED: NITROGLYCERIN1 EACH TOP (07:13)
[2017-07-02] MEDS ORDERED: ASPIRIN81 M4 PO (07:15)
--- NOTE | 2017-07-02 07:18 | PN- Housestaff ---
[facility] Subjective Follow-up For: TYPE 2 AL Acute on chronic kidney injury(improving) Symptomatic anemia(improving) Pheripheral neropathy Tele-Events Since Last Visit: Patient remained in sinus rhythm with heart rate 5963 Subjective: No overnight events. Patient remained afebrile overnight. Seen and examined this morning. She denied any chest pain, palpitation, abdominal pain, vomiting and dysuria. Patient is nothing by mouth and going for cardiac cath to [facility] today. Review of Systems Constitutional: Denies: chills, fever. EENTM: Reports: no symptoms. Cardiovascular: Denies: chest pain, palpitations. Respiratory: Denies: cough, short of breath, sputum production. Gastrointestinal: Reports: no symptoms. Genitourinary: Reports: no symptoms. Neurological/Psychological: Reports: no symptoms. Objective Last 24 Hrs of Vital Signs/I&O Vital Signs Date Time Temp Pulse Resp B/P B/P Pulse O2 O2 Flow FiO2 Mean Ox Delivery Rate 07/02 0659 97.5 60 16 152/66 95 Room Air 07/01 2133 67 122/62 07/01 2123 98.7 67 22 122/62 94 Room Air 07/01 1432 97.8 63 20 114/52 95 Room Air 07/01 0918 64 132/56 Intake & Output 07/02 1600 07/02 0800 07/02 0000 Intake Total 380 Output Total 30 400 Balance -30 -20 Intake, Oral 380 Output, Stool 30 Output, Urine 400 Patient 155 lb Weight Physical Exam General Appearance: Alert, Oriented X3, Cooperative Skin: No Rashes Skin Temp/Moisture Exam: Warm/Dry Sepsis Skin Exam (color): Normal for Ethnicity HEENT: Atraumatic, PERRLA, EOMI Neck: Supple Cardiovascular: Normal S1, Normal S2 Lungs: Clear to Auscultation Abdomen: Soft, No Tenderness Neurological: Normal Speech, Normal Tone Extremities: Pedal edema has improved. Assessment/Plan Assessment: 76F PMH HTN, HFpEF, history of DVT on Xarelto, history of anemia, TACO on CPAP, anxiety, depression, rheumatoid arthritis, history of colonic perfusion s/p colostomy, hypothyroidism admitted for symptomatic anemia requiring transfusion, dyspnea with minimal exertion, and weakness. Following the patient on telemetry floor for the following problems: Symptomatic anemia: -Probably multifactorial considering her GI AV malformation, chronic kidney injury and also use of hydroxychloroquine for RA that can suppress bone marrow. -Continue iv iron transfusion. -GI recommended to follow as outpatient for further workup with [facility]. Acute on chronic kidney injury:(IMPROVING) -Probably due to dehydration -We will monitor input and output -Avoid nephrotoxins medications, NSAIDs -We will encourage patient to take more oral fluids Type II AL: -Probably due to restrictive heart disease and anemia. Anemia causing her tachycardia and hyperdynamic state. -Continue NTG patch was started for 12 hours daily and carvedalol. -Aspirin was started. -Going for cardiac cath to [facility] today. Pheripheral neuropathy: -Continue gabapentin 100mg tid. History of rheumatoid arthritis -Hydroxychloroquine was stopped considering her anemia. -Continue chronic steroids prednisone 10mg daily History of chronic neck pain: -Patient didn't want diluadid causing halucinations according to patient. -Tramadol was started to control pain. History of hypothyroidism: -Continue levothyroxine History of DVT: -Patient was on xeralto that was stopped because of anemia. History of hypertension: -Continue home medications History of colonic perforation status post colostomy: -Patient has Emanuel procedure due to colonic perforation -Her colostomy is working History of diastolic CHF: -PO lasix was resumed 20mg daily. -We will follow cardiology recommendations. DVT prophylaxis: Mechanical and subcutaneous heparin CODE STATUS: DNR/DNI Problem List: 1. Zhjkr-qh-wmnnicu kidney injury 2. Elevated troponin 3. Symptomatic anemia Pain Ratin Pain Location: none Pain Goal: Remain pain free Pain Plan: pain pathway Tomorrow's Labs & Rationales: none Ginger Griffiths MD 07/02/17 1010: Attending MD Review Statement Attending Statement Attending MD Statement: examined this patient, discuss w/resident/PA/REVERBERATORY SKIMMER, agreed w/resident/PA/REVERBERATORY SKIMMER, reviewed EMR data (avail) Attending Assessment/Plan: 76F PMH HTN, HFpEF, history of DVT on Xarelto, history of anemia, TACO on CPAP, anxiety, depression, rheumatoid arthritis, history of colonic perfusion s/p colostomy, hypothyroidism admitted for symptomatic anemia requiring transfusion, dyspnea with minimal exertion, and weakness. Recently admitted for similar 1 month ago, had push enteroscopy which did not show source of bleeding. Has deteriorated since and Hgb was down to 6.7 on admission. No signs of bleeding, no melena, bloody stools, hematuria, or vaginal bleeding. On Xarelto at home for DVT in July 2016 at [facility], held here due to anemia. Labs show iron deficiency anemia with relatively low reticulocyte count and normal MCV. EKG was NSR, troponin 0.58 (similar to level at discharge 1 month ago). Given 1 unit pRBC. Patient looks and feels much better. Her CBC is stable. A discussion was had over the weekend regarding continuation of Xarelto and patient will speak with her family about it. She refuses IVC filter. 1. Symptomatic anemia 2. Dyspnea on exertion 3. History of DVT 4. Type 2 myocardial infarction Plan - Will transfer today for cardiac cath - Iron supplementation - Continue Tramadol and Gabapentin as this has improved her pain - Continue home medications including home Lasix - Receiving hospital will have to continue discussions regarding Xarelto - CBC should be monitored
--- NOTE | 2017-07-02 07:39 | PN- Student ---
Subjective Subjective: No acute events overnight. Patient melchor and examined this morning. Patient resting in the chair. Feeling positive for cardiac cath. Complains of nausea after blood draw. Denied chest pain, SOB, diarrhea, fever, chills. Objective Objective: Vitals: T= 97.5 HR=60 BP= 152/66 O2Sat= 95 RA I&O: I= 1300 V=4930 B=197 3BM PE: General= ill apprearing and worried, alert and oriented Lungs= Clear bilateral CVS= regular rate and rythm, systolic murmur Extremities= improving +1 pedal edema Results Results: Laboratory Tests 07/02/17 0721: Sodium Pending, Potassium Pending, Chloride Pending, Carbon Dioxide Pending, Anion Gap Pending, BUN Pending, Creatinine Pending, BUN/Creatinine Ratio Pending , CBC w Diff Pending, WBC Pending, RBC Pending, Hgb Pending, Hct Pending, MCV Pending, MCH Pending, MCHC Pending, RDW Pending, Plt Count Pending, MPV Pending 07/01/17 0620: Anion Gap 8, Estimated GFR 24 L, BUN/Creatinine Ratio 21.5, CBC w Diff NO MAN DIFF REQ, RBC 3.15 L, MCV 91.4, MCH 30.2, MCHC 33.1, RDW 16.2 H, MPV 8.3, Gran % 69.8, Lymphocytes % 23.7, Monocytes % 5.8, Eosinophils % 0, Basophils % 0.7, Absolute Granulocytes 4.9, Absolute Lymphocytes 1.7, Absolute Monocytes 0.4, Absolute Eosinophils 0, Absolute Basophils 0, Retic Count 1.71 06/30/17 0650: Anion Gap 5, Estimated GFR 26 L, BUN/Creatinine Ratio 25.3 H, Iron 205 H, TIBC 236 L, Ferritin 401.0 H, CBC w Diff NO MAN DIFF REQ, RBC 3.15 L, MCV 91.4, MCH 29.8, MCHC 32.6 L, RDW 15.9 H, MPV 8.2, Gran % 70.7, Lymphocytes % 22.7, Monocytes % 6.0, Eosinophils % 0, Basophils % 0.6, Absolute Granulocytes 5.3, Absolute Lymphocytes 1.7, Absolute Monocytes 0.4, Absolute Eosinophils 0, Absolute Basophils 0 Assessment/Plan Assessment: 76 y/o F with hx of RA, colon perforation s/p Emanuel's procedure with end colostomy, neurogenic pain. Following up for symptomatic anemia and elevated troponin. Going for [facility] for cadiac cath today. Patient is NPO since midnight. Sinus Bradycardia on monitor (59-63). Plan: Symptomatic anemia: -Probably multifactorial chronic disease, kidney injury, GI bleed, hydroxychloroquine use -H&H stable -F/U CBC's -F/U with GI for further eval with [facility] MARVEL (improving): -probably due to dehydration -monitor I&O Type II AL: -probably due to anemia -Cont. NGT (0.4mg/hr Q 12) and Carvedol -Going for cardiac cath today at [facility] Periheral neurophathy: -Cont. Gabapentin RA: -Hydroxychloroquine was stopped due to anemia -Cont. prednisone Hypothyroidism: -Cont. home meds DVT: -Not clear if unprovoken or provoke femoral popliteal vein DVT. Unknown if any workup was done at [facility] (based on the record provided) -cont. mechanical and Sub Q hep -OOB
[2017-07-02 08:11] VITALS: BP 152/66
[2017-07-02 08:32] LABS: ABSOLUTE BASOPHIL COUNT 0 /CUMM (0.0-0.2); ABSOLUTE EOSINOPHIL COUNT 0.1 /CUMM (0.0-0.7); ABSOLUTE GRANULOCYTE CT 5.1 /CUMM (1.4-6.5); ABSOLUTE LYMPH COUNT 1.5 /CUMM (1.2-3.4); ABSOLUTE MONOCYTE COUNT 0.4 /CUMM (0.10-0.60); BASOPHIL % 0.5 % (0.0-2.0); EOSINOPHIL % 1.1 % (0-5); GRANULOCYTE % 71.4 % (42.2-75.2); HEMATOCRIT 28.6 % (37-47); MEAN CORPUSCULAR HGB 30.1 PG (27.0-31.0); MEAN CORPUSCULAR VOLUME 91.3 FL (81.0-99.0); MEAN PLATELET VOLUME 8.1 FL (7.4-10.4); PLATELET COUNT 188 /CUMM (130-400); RED BLOOD CELL CT 3.14 /CUMM (4.20-5.40); WHITE BLOOD CELL COUNT 7.2 /CUMM (4.8-10.8)
[2017-07-02] MEDS ORDERED: OYSTER SHELL C1 EAC4 PO (09:29)
[2017-07-02] MEDS ORDERED: FENOFIBRATE200 M1 PO (09:29)
[2017-07-02] MEDS ORDERED: XARELTO20 M2 PO (09:30)
== END 2017-07-02 10:00 | disposition short-term general hospital (02) | DRG 811 ==
LOC: ERH 14:25 → 1NO 18:46 → ERHI 18:46 → ENRESERV 19:52 → ENTRNSPT 21:32 → EDTRNSPTSTS 21:48 → EDTRNSPT 21:48 → 1NO 21:52 → CMPTRNSPT 22:07 → 1NO 06-24 07:34 → ENPENDDIS 07-02 09:32 → 1NO 07-02 10:00
PROVIDERS: Internal Medicine Interventional Cardiology; Physician Assistant Medical; Student in an Organized Health Care Education/Training Program
PROC: 30233N1 Transfusion of Nonautologous Red Blood Cells into Peripheral Vein, Percutaneous Approach (ICD-10-PCS; principal; 2017-06-23)
DX: D64.9 Anemia, unspecified (principal); I21.A1 Myocardial infarction type 2; G62.9 Polyneuropathy, unspecified; N17.9 Acute kidney failure, unspecified; I50.32 Chronic diastolic (congestive) heart failure; Q27.30 Arteriovenous malformation, site unspecified; I13.0 Hypertensive heart and chronic kidney disease with heart failure and stage 1 through stage 4 chronic kidney disease, or unspecified chronic kidney disease; N18.4 Chronic kidney disease, stage 4 (severe); I82.532 Chronic embolism and thrombosis of left popliteal vein; D62 Acute posthemorrhagic anemia; M06.9 Rheumatoid arthritis, unspecified; E66.9 Obesity, unspecified; Z79.01 Long term (current) use of anticoagulants; Z79.52 Long term (current) use of systemic steroids; E03.9 Hypothyroidism, unspecified; G47.33 Obstructive sleep apnea (adult) (pediatric); Z88.6 Allergy status to analgesic agent; Z88.5 Allergy status to narcotic agent; Z88.0 Allergy status to penicillin; Z88.8 Allergy status to other drugs, medicaments and biological substances; F41.9 Anxiety disorder, unspecified; F32.9 Major depressive disorder, single episode, unspecified; G47.00 Insomnia, unspecified; H26.9 Unspecified cataract; Z93.4 Other artificial openings of gastrointestinal tract status; Z90.49 Acquired absence of other specified parts of digestive tract; E55.9 Vitamin D deficiency, unspecified; Z90.710 Acquired absence of both cervix and uterus; G43.909 Migraine, unspecified, not intractable, without status migrainosus; Q27.33 Arteriovenous malformation of digestive system vessel; R00.0 Tachycardia, unspecified; K44.9 Diaphragmatic hernia without obstruction or gangrene; Z68.35 Body mass index [BMI] 35.0-35.9, adult; Z87.891 Personal history of nicotine dependence; M54.2 Cervicalgia; Z93.3 Colostomy status
CPT/HCPCS: 1NP; 82570; 84156; 84166; 36415; 36592; 71045; 82436; 84165; 86920; 87086; 93005; 93010; 93970; 96374; 96375; 97165-GO; 97530-GO; J1644; J1756; J1940; J3490; J7512; P9016

== ENCOUNTER 2017-07-07 14:30 | Inpatient (IN) | payer OTHER, MEDICARE ==
[~2017-07-07] VITALS: Ht 142.2 cm; Wt 70.9 kg
[~2017-07-07 14:30] MED LIST changes: +ASPIRIN81 M4 PO; +BUTALB-ACETAMI1 EACH PO; +CYCLOBENZAPRINE5 M2 PO; +FENOFIBRATE200 M1 PO; +GABAPENTIN100 M2 PO; +NITROGLYCERIN1 EACH TOP; +OMEPRAZOLE20 M2 PO; +OYSTER SHELL C1 EAC4 PO; +REGLAN10 M1 PO; +TRAMADOL HCL50 M1 PO
--- NOTE | 2017-07-07 15:44 | RADIOLOGY REPORT ---
EXAMINATION: CHEST 1 VIEW CLINICAL INFORMATION: Shortness of breath. COMPARISON: 06/23/2017. TECHNIQUE: An AP view of the chest is provided. FINDINGS: The cardiac silhouette is enlarged, though stable. There are small bilateral pleural effusions with associated airspace disease. There is persistent airspace disease, though improved aeration within the inferior right upper lobe. The osseous structures are stable. IMPRESSION: Small bilateral pleural effusions with associated airspace disease. Stable cardiomegaly.
--- NOTE | 2017-07-07 17:01 | ULTRASOUND REPORT ---
EXAMINATION: US TRIPLEX OF LOWER EXTREMITIES, BILATERAL CLINICAL INFORMATION: Swelling in legs, recent cardiac stent. COMPARISON: Bilateral lower extremity ultrasound 06/24/2017. TECHNIQUE: Color-flow triplex imaging with spectral analysis and compression Doppler were performed on the lower extremities. Imaging was suboptimal due to overlying bandages, and the upper common femoral vein, great saphenous vein and femoral vein superiorly were not visualized. FINDINGS: Right lower extremity: Respiratory variation, normal compression and augmented flow are noted throughout the right lower extremity. The visualized profunda femoral vein, popliteal vein and midcalf peroneal and posterior tibial venous segments show no evidence of deep venous thrombosis. There are no focal fluid collections. There is extensive edema in the right lower extremity. Left lower extremity: Respiratory variation, normal compression and augmented flow are noted throughout the lower extremity. The visualized common femoral vein, superficial femoral vein, profunda femoral vein, popliteal vein and midcalf peroneal and posterior tibial venous segments show no evidence of deep venous thrombosis. No focal fluid collections are demonstrated. There is extensive pitting edema throughout the left lower extremity. IMPRESSION: 1. No deep vein thrombosis visualized in the left or right lower extremities. However, imaging is suboptimal due to body habitus, pitting edema and bandages over the right groin region. 2. There are no focal fluid collections. There is diffuse edema in the lower extremities bilaterally.
[2017-07-07 17:30] LABS: ABSOLUTE BASOPHIL COUNT 0 /CUMM (0.0-0.2); ABSOLUTE EOSINOPHIL COUNT 0 /CUMM (0.0-0.7); ABSOLUTE GRANULOCYTE CT 7.2 /CUMM (1.4-6.5); ABSOLUTE LYMPH COUNT 0.8 /CUMM (1.2-3.4); ABSOLUTE MONOCYTE COUNT 0.3 /CUMM (0.10-0.60); BASOPHIL % 0.4 % (0.0-2.0); EOSINOPHIL % 0.3 % (0-5); HEMATOCRIT 28.9 % (37-47); MEAN CORPUSCULAR HGB 30.5 PG (27.0-31.0); MEAN CORPUSCULAR HGB CONC 33.3 G/DL (33.0-37.0); MEAN CORPUSCULAR VOLUME 91.3 FL (81.0-99.0); MEAN PLATELET VOLUME 8.1 FL (7.4-10.4); PLATELET COUNT 221 /CUMM (130-400); RBC DISTRIBUTION WIDTH 16.3 % (11.5-14.5); RED BLOOD CELL CT 3.16 /CUMM (4.20-5.40); WHITE BLOOD CELL COUNT 8.4 /CUMM (4.8-10.8)
[2017-07-07 17:39] LABS: GRANULOCYTE % 85.9 % (42.2-75.2)
--- NOTE | 2017-07-07 18:26 | ED GENERAL ADULT ---
History of Present Illness General Chief Complaint: General Adult Stated Complaint: R LEG PAIN LOWER EXTREMITY SWELLING AND PAIN Source: patient Exam Limitations: no limitations Vital Signs & Intake/Output Vital Signs & Intake/Output Vital Signs Date Time Temp Pulse Resp B/P B/P Pulse O2 O2 Flow FiO2 Mean Ox Delivery Rate 07/07 1845 98.1 56 17 167/68 95 Room Air 07/07 1459 97.7 59 18 129/58 96 Room Air Allergies Coded Allergies: Penicillins (SWELLING, RASH, ITCH 05/22/17) aspirin (RASH 05/22/17) cephalexin (From KEFLEX) (ITCHY 05/22/17) chocolate flavor (HEADACHE/MIGRAINE 07/01/17) codeine (ITCH 05/22/17) levofloxacin (From LEVAQUIN) (RASH 05/22/17) oxaprozin (From DAYPRO) (RASH 05/22/17) propoxyphene (UNKNOWN REACTION TO DARVOCET 05/22/17) Reconcile Medications Aspirin (Aspirin*) 81 MG TAB.CHEW 1 TAB PO DAILY Heart health Butalb/Acetaminophen/Caffeine (Tpucpt-Lplrophj-Kcjk 50-325-40) 50 MG-325 MG-40 MG TABLET 1 TAB PO BID PRN migrain (Reported) Calcium Carbonate/Vitamin D3 (Os-Mehdi 500+D3 Caplet) 500 MG-200 TABLET 1 TAB PO DAILY SUPPLEMENT (Reported) Calcium Carbonate/Vitamin D3 (Oyster Shell Calcium + D Tab) 500 MG-200 TABLET 1 TAB PO DAILY supp (Reported) Carvedilol 25 MG TABLET 1 TAB PO BID HEART/BP (Reported) Cyclobenzaprine HCl 5 MG TABLET 1 TAB PO TIDPRN PRN muscle spasms (Reported) Docusate Sodium 100 MG CAPSULE 1 CAP PO DAILY constipation (Reported) Ergocalciferol (Vitamin D2) (Vitamin D2) 50,000 UNIT CAPSULE 1 CAP PO QWED SUPPLEMENT (Reported) Fenofibrate,Micronized (Fenofibrate) 200 MG CAPSULE 1 CAP PO DAILY TG ( Reported) Ferrous Gluconate (Unknown Strength) TABLET (Unknown Dose) PO DAILY SUPPLEMENT (Reported) Furosemide (Lasix) 20 MG TABLET 1 TAB PO DAILY DIURETIC (Reported) Gabapentin 100 MG CAPSULE 1 CAP PO Q8 Neuropathy Levothyroxine Sodium 25 MCG TABLET 1 TAB PO DAILY AC THYROID (Reported) Lisinopril 10 MG TABLET 1 TAB PO QAM BP (Reported) Metoclopramide HCl (Reglan) 10 MG TABLET 1 TAB PO TID for nausea (Reported) 30 minutes before meals and bedtime Nitroglycerin (Nitroglycerin Patch) 0.4 MG/HOUR PATCH.TD24 1 PATCH TOP DAILY Heart health Omeprazole 20 MG TABLET.DR 1 TAB PO DAILY GI (Reported) Potassium Chloride (Klor-Con 10) (Unknown Strength) TABLET.ER (Unknown Dose) PO DAILY SUPPLEMENT (Reported) Prednisone 10 MG TABLET 1 TAB PO QAM STEROID (Reported) Sennosides/Docusate Sodium (Senna Plus Tablet) 8.6 MG-50 MG TABLET 1 TAB PO DAILY NEEDED PRN CONSTIPATION . Sertraline HCl 25 MG TABLET 1 TAB PO QAM MENTAL HEALTH (Reported) Tramadol HCl 50 MG TABLET 1 TAB PO Q6 PRN PAIN SCALE 7-10 (SEVERE) Triage Note: PT TO ER [facility], FOR EVAL OF BLE SWELLINNG AND RIGHT LEG PAIN X 2 DAY. HAD CARDIAC STENT PLACED 07/03 AT [facility]. DENIES C/P OR SOB AT THIS TIME. Triage Nurses Notes Reviewed? yes Onset: Abrupt Duration: day(s): Timing: recent history HPI: 07/07/17 76-year-old female presents to the emergency department complaining of bilateral lower extremity swelling. She says she status post catheterization at [facility]. This was done by Dr. Ulrich. She says she has significant weakness and worsening swelling over the past 72 hours. She denies chest pain or shortness of breath. Past History Travel History Traveled to [place] past 21 day No Medical History Any Pertinent Medical History? see below for history Neurological: migraine EENT: cataracts Cardiovascular: CHF, hypertension, hyperlipidemia Respiratory: pneumonia, DYSPNEA Gastrointestinal: diverticulitis, HEMORRHOIDS BOWEL RESECTION COLOSTOMY Hepatic: NONE Renal: 3+PROTEIN IN URINE [id number] Musculoskeletal: rheumatoid arthritis Psychiatric: anxiety, depression, insomnia Endocrine: vitamin D deficiency Blood Disorders: anemia Cancer(s): NONE BAND SAW RUNNER/Reproductive: NONE History of MRSA: No History of VRE: No History of CDIFF: Yes Influenza Vaccine: 12/22/16 Surgical History Surgical History: colon resection, hysterectomy, laminectomy Psychosocial History Who do you live with Patient/[facility] What is your primary language Slovenian Tobacco Use: Quit >30 days ago Family History Family History, If Any: Relation not specified for: *No pertinent family history Hx Contributory? No Review of Systems Review of Systems Constitutional: Reports: no symptoms. EENTM: Reports: no symptoms. Respiratory: Denies: short of breath. Cardiovascular: Denies: chest pain. GI: Reports: abdominal pain. Genitourinary: Reports: no symptoms. Musculoskeletal: Reports: see HPI. Skin: Reports: see HPI. Neurological/Psychological: Reports: no symptoms. Hematologic/Endocrine: Reports: bruising. Immunologic/Allergic: Reports: no symptoms. Physical Exam Physical Exam General Appearance: alert, awake, anxious, moderate distress Head: atraumatic, normal appearance Eyes: Bilateral: normal appearance, PERRL, EOMI. Ears, Nose, Throat: normal pharynx, normal ENT inspection Neck: normal inspection, supple Respiratory: no respiratory distress Cardiovascular: regular rate/rhythm Peripheral Pulses: 3+ dorsalis pedis (R), 3+ dorsalis pedis (L) Gastrointestinal: soft, non-tender Back: decreased range of motion Extremities: pedal edema Neurologic/Psych: awake, alert, oriented x 3 Skin: intact, normal color, warm/dry Core Measures ACS in differential dx? Yes CVA/TIA Diagnosis: No Sepsis Present: No Sepsis Focused Exam Completed? No Progress Differential Diagnoses I considered the following diagnoses in my evaluation of the patient: [DVT, pseudoaneurysm, anasarca, CHF, acute coronary syndrome] PATIENT: RYAN CHRISTENSEN PRESENT AGE: 76 PATIENT ACCOUNT NO: [id number] : 39 LOCATION: [facility] ORDERING PHYSICIAN: Fish MATTA SERVICE DATE: 07/07/17 EXAM TYPE: RAD - XRY-CHEST XRAY, SINGLE VIEW EXAMINATION: CHEST 1 VIEW CLINICAL INFORMATION: Shortness of breath. COMPARISON: 06/23/2017. TECHNIQUE: An AP view of the chest is provided. FINDINGS: The cardiac silhouette is enlarged, though stable. There are small bilateral pleural effusions with associated airspace disease. There is persistent airspace disease, though improved aeration within the inferior right upper lobe. The osseous structures are stable. IMPRESSION: Small bilateral pleural effusions with associated airspace disease. Stable cardiomegaly. DICTATED BY: James Buchanan MD DATE/TIME DICTATED:07/07/171537 EMPLOYEE BENEFITS DIRECTOR:TED DATE/TIME TRANSCRIBED:07/07/171537 CONFIDENTIAL, DO NOT COPY WITHOUT APPROPRIATE AUTHORIZATION. <Electronically signed in Other Vendor System> SIGNED BY: James Buchanan MD 07/07/17 5211 Plan of Care: Orders Procedure Date/time Status TROPONIN LEVEL 07/07 145 Complete COMPREHENSIVE METABOLIC PANEL 07/07 145 Complete CBC WITHOUT DIFFERENTIAL 07/07 145 Complete B-TYPE NATRIURETIC PEP (BNP) 07/07 145 Complete EKG 07/07 1458 Active Laboratory Tests 07/07/17 1720: Anion Gap 6, Estimated GFR 24 L, BUN/Creatinine Ratio 24.5, Glucose 92, Calcium 9.8, Total Bilirubin 0.3, AST 18, ALT 30, Alkaline Phosphatase 81, Troponin I 0.51 *H, Vfl-G-Myoaxkjewvl Pept 9320 H, Total Protein 5.0 L, Albumin 2.5 L, Globulin 2.5, Albumin/Globulin Ratio 1.0 L, CBC w Diff NO MAN DIFF REQ, RBC 3.16 L, MCV 91.3, MCH 30.5, MCHC 33.3, RDW 16.3 H, MPV 8.1, Gran % 85.9 H, Lymphocytes % 9.6 L, Monocytes % 3.8, Eosinophils % 0.3, Basophils % 0.4, Absolute Granulocytes 7.2 H, Absolute Lymphocytes 0.8 L, Absolute Monocytes 0.3, Absolute Eosinophils 0, Absolute Basophils 0 Initial ED EKG: sinus bradycardia cardiac nonspecific ST-T wave abnormality Prior EKG: changed (nonspecific) Departure Departure Disposition: STILL A PATIENT Condition: Stable Clinical Impression Primary Impression: Anasarca Secondary Impressions: CHF (congestive heart failure), Elevated troponin Referrals: Corrina Fortune MD (PCP/Family) Departure Forms: Customer Survey General Discharge Information Admission Note Spoke With: Serg CURTIS PHD,Juan Hewitt Documentation of Exam: Documentation of any treatments & extenuating circumstances including Concerns Regarding Discharge (functional status, medication knowledge or non-compliance, living conditions, etc.) that warrant an admission rather than observation: [ patient needs iv diuresis, cardiology consult, serail troponins.] The patient has severe weakness and incapacitating swelling to her lower extremities. She is unable to manage at home. Ultrasound was negative for DVT. No evidence of pseudoaneurysm. She does have an elevated BNP and bilateral pleural effusions. She is being admitted for IV diuresis. Cardiology consultation Critical Care Note Critical Care Note Critical Care Time: 30-74 min
--- NOTE | 2017-07-07 20:00 | History & Physical ---
Jonathan CURTIS,[facility] 07/07/171958: General Information and HPI MD Statement: I have seen and personally examined RYAN CORONA and documented this H&P. The patient is a 76 year old F who presented with a patient stated chief complaint of [lower extremity swelling and weakness]. Source of Information: patient, family Exam Limitations: no limitations History of Present Illness: 76yo F with PMH of HTN, DVT, anemia, TACO on CPAP, anxiety, hypothyroidism, depression, rheumatoid arthritis, and s/p colostomy presented to the ED with complains of lower extremity swelling, weakness and shortness of breath. The patient states that she was recently discharged from [place] on 06/25/17. She was sent to [facility] for cardiac cath with Dr Ulrich and was discharged the next day. She states that she did very well the first two days after discharge and was able to walk around. However, after that she started having difficulty with walking around and had to force herself to do so. Today when she got up her thighs were swollen up and she was unable to put any pressure on them. She states that she also has been experiencing exertional shortness of breath. She is able to walk about 30 feet before she becoming short of breath. She sleeps with her head elevated to severe neck pain due to her rheumatoid arthritis. Denies any PND. She reports that she was started on aspirin and plavix after discharge and her omeprazole and lasix were held at that time. She mentions that her colostomy bag had to be changed 4 times today due to loose watery bowel movements. Allergies/Medications Allergies: Coded Allergies: Penicillins (SWELLING, RASH, ITCH 05/22/17) aspirin (RASH 05/22/17) cephalexin (From KEFLEX) (ITCHY 05/22/17) chocolate flavor (HEADACHE/MIGRAINE 07/01/17) codeine (ITCH 05/22/17) levofloxacin (From LEVAQUIN) (RASH 05/22/17) oxaprozin (From DAYPRO) (RASH 05/22/17) propoxyphene (UNKNOWN REACTION TO DARVOCET 05/22/17) Home Med list Aspirin (Aspirin*) 81 MG TAB.CHEW 1 TAB PO DAILY Heart health Butalb/Acetaminophen/Caffeine (Ixjggl-Fbydpojq-Hnsb 50-325-40) 50 MG-325 MG-40 MG TABLET 1 TAB PO BID PRN migrain (Reported) Calcium Carbonate/Vitamin D3 (Os-Mehdi 500+D3 Caplet) 500 MG-200 TABLET 1 TAB PO DAILY SUPPLEMENT (Reported) Calcium Carbonate/Vitamin D3 (Oyster Shell Calcium + D Tab) 500 MG-200 TABLET 1 TAB PO DAILY supp (Reported) Carvedilol 25 MG TABLET 1 TAB PO BID HEART/BP (Reported) Clopidogrel Bisulfate (Plavix) 75 MG TABLET 1 TAB PO DAILY HEART HEALTH ( Reported) Cyclobenzaprine HCl 5 MG TABLET 1 TAB PO TIDPRN PRN muscle spasms (Reported) Docusate Sodium 100 MG CAPSULE 1 CAP PO DAILY constipation (Reported) Ergocalciferol (Vitamin D2) (Vitamin D2) 50,000 UNIT CAPSULE 1 CAP PO QWED SUPPLEMENT (Reported) Fenofibrate,Micronized (Fenofibrate) 200 MG CAPSULE 1 CAP PO DAILY TG ( Reported) Ferrous Gluconate (Unknown Strength) TABLET (Unknown Dose) PO DAILY SUPPLEMENT (Reported) Furosemide (Lasix) 20 MG TABLET 1 TAB PO DAILY DIURETIC (Reported) Gabapentin 100 MG CAPSULE 1 CAP PO Q8 Neuropathy Levothyroxine Sodium 25 MCG TABLET 1 TAB PO DAILY AC THYROID (Reported) Lisinopril 10 MG TABLET 1 TAB PO QAM BP (Reported) Metoclopramide HCl (Reglan) 10 MG TABLET 1 TAB PO TID for nausea (Reported) 30 minutes before meals and bedtime Nitroglycerin (Nitroglycerin Patch) 0.4 MG/HOUR PATCH.TD24 1 PATCH TOP DAILY Heart health Potassium Chloride (Klor-Con 10) (Unknown Strength) TABLET.ER (Unknown Dose) PO DAILY SUPPLEMENT (Reported) Prednisone 10 MG TABLET 1 TAB PO QAM STEROID (Reported) Sennosides/Docusate Sodium (Senna Plus Tablet) 8.6 MG-50 MG TABLET 1 TAB PO DAILY NEEDED PRN CONSTIPATION . Sertraline HCl 25 MG TABLET 1 TAB PO QAM MENTAL HEALTH (Reported) Tramadol HCl 50 MG TABLET 1 TAB PO Q6 PRN PAIN SCALE 7-10 (SEVERE) Past History Travel History Traveled to [place] past 21 day No Medical History Neurological: migraine EENT: cataracts Cardiovascular: CHF, hypertension, hyperlipidemia Respiratory: pneumonia, DYSPNEA Gastrointestinal: diverticulitis, HEMORRHOIDS BOWEL RESECTION COLOSTOMY Hepatic: NONE Renal: 3+PROTEIN IN URINE C-[id number] Musculoskeletal: rheumatoid arthritis Psychiatric: anxiety, depression, insomnia Endocrine: vitamin D deficiency Blood Disorders: anemia Cancer(s): NONE STATISTICAL MODELER/Reproductive: NONE History of MRSA: No History of VRE: No History of CDIFF: Yes Influenza Vaccine: 12/22/16 Surgical History Surgical History: colon resection, hysterectomy, laminectomy Past Family/Social History Family History Relations & Conditions if any Relation not specified for: *No pertinent family history Psychosocial History Services at Home: [employer] Primary Language: Estonian Functional Ability Ambulation: cane IADLs Needs Assist: shopping, housework, food prep. Review of Systems Review of Systems Constitutional: Reports: weakness. Denies: chills, fever. EENTM: Reports: no symptoms. Cardiovascular: Reports: peripheral edema. Denies: chest pain. Respiratory: Reports: short of breath. GI: Reports: diarrhea. Genitourinary: Reports: no symptoms. Musculoskeletal: Reports: joint pain. Skin: Reports: no symptoms. Neurological/Psychological: Reports: no symptoms. Hematologic/Endocrine: Reports: no symptoms. Exam & Diagnostic Data Last 24 Hrs of Vital Signs/I&O Vital Signs Date Time Temp Pulse Resp B/P B/P Pulse O2 O2 Flow FiO2 Mean Ox Delivery Rate 07/07 2236 60 18 143/63 98 Room Air 07/07 1845 98.1 56 17 167/68 95 Room Air 07/07 1459 97.7 59 18 129/58 96 Room Air Intake & Output 07/07 1600 07/07 0800 07/07 0000 Intake Total Output Total Balance Patient 154 lb Weight Weight Reported by Patient Measurement Method Physical Exam General Appearance Alert, Oriented X3, Cooperative, Mild Distress Skin No Rashes, No Breakdown Skin Temp/Moisture Exam: Warm/Dry Sepsis Skin Exam (color): Normal for Ethnicity HEENT Atraumatic Cardiovascular Normal S1, Normal S2, No Murmurs Lungs Normal Air Movement, diminished air entry at bases Abdomen Soft, No Tenderness Neurological Normal Speech Extremities b/l lower extremity edema up to thighs Assessment/Plan Assessment: 76yo F with PMH of HTN, DVT, anemia, TACO on CPAP, anxiety, hypothyroidism, depression, rheumatoid arthritis, and s/p colostomy presented to the ED with complains of lower extremity swelling, weakness and shortness of breath. Assessment: 1. CHF Exacerbation 2. Bilateral Lower Extremity Edema 3. Anemia 4. Elevated Troponin 5. History of TACO on nocturnal CPAP Plan: * Admit to telemetry * She is volume overloaded likely secondary to CHF exacerbation. Will diuresis with IV Lasix 40mg daily for now. * Strict I's and O's. * Trend troponins until they peak * She reports multiple loose bowel movements today. Will check C.diff * Continue home medications for chronic medical conditions. * She uses dilaudidd PO and tramadol at home for severe pain. Will start her on 2mg q8p. * Diet: CHF diet * DVT Prophylaxis: SC Heparin * Code: DNR/DNI As Ranked By This Provider Problem List: 1. Elevated troponin Core Measures/Misc (12/08) Acute Coronary Syndrome ACS Diagnosis: No Congestive Heart Failure Congestive Heart Failure Diagnosis Yes Last Known EF % 60 Comment On ARB Cerebrovascular Accident CVA/TIA Diagnosis: No VTE (View Protocol) VTE Risk Factors Age>40 No Mechanical VTE Prophylaxis d/t N/A MechProphylax Ordered No VTE Pharm Prophylaxis d/t NA PharmProphylax ordered Sepsis (View protocol) Sepsis Present: No Rubi Aguayo 07/08/17 0122: Resident Review Statement Resident Statement: examined this patient, discussed with merchandising intern, agreed with merchandising intern, discussed with family, reviewed EMR data (avail), discussed with nursing , discussed with case mgmt, reviewed images Other Findings: Mrs. Corona is a 76yo women with PMH hx. of HTN, HFpEF, history of DVT was on Xarelto (which was held on the recent admission secondary to anemia ), history of anemia, TACO on CPAP, anxiety, depression, rheumatoid arthritis, history of colonic perforation s/p colostomy, hypothyroidism recently discharged from [facility] to [facility] for cardiac catheterization she had the procedure last and she was discharged from [facility] on Friday. Came today to emergency department with a chief complaint of worsening shortness of breath and increased swelling of bilateral lower extremity especially B/L thighs. Detailed history as above Recent medications update: She is currently on dual antiplatelet therapy, Lasix and Omeprazol discontinued. pertinent labs: H&H: 9.6/28.9, K:5.6, BUN/CREAT: 49/2 ProBNP 9320 Troponin 0.51 EKG: SR, no acute changes Chest x-ray: Small bilateral pleural effusions with associated airspace disease. Stable cardiomegaly. Assessment: #CHF exacerbation #Positive troponin in the setting of recent cardiac catheterization, last week #Loose bowel movement #Hx. of TACO on Cpap #CKD #History of HTN, bilateral pleural effusion, #History of DVT not on AC 2/2 anemia #anxiety, depression, rheumatoid arthritis, history of colonic perfusion s/p colostomy, hypothyroidism Plan: - Admit to telemetry -Case discussed with Dr. Ulrich no anticoagulation, will do serial troponins and ECGs, and will continue diuresis -Strict I's AND O's, daily weight - Monitor H&H, goal hemoglobin 8 - Will continue dual antiplatelet therapy (ASA, PLAVIX) - Heart healthy diet -Will check TSH -Will continue home medications, including iron supplement -Will check C.diff -Will repeat labs tomorrow -Pain managment with Tramadol and low dose diluded PRN DVT ppx: ALPS DNR/DNI Lucas CURTIS,Jayson Hewitt 07/09/171916: Exam & Diagnostic Data Last 24 Hrs of Vital Signs/I&O Vital Signs Date Time Temp Pulse Resp B/P B/P Pulse O2 O2 Flow FiO2 Mean Ox Delivery Rate 07/09 1528 97.3 58 20 92 Room Air 07/09 0557 97.7 58 18 118/60 92 Room Air 07/08 2225 98.3 65 18 138/62 95 Room Air 07/08 2027 60 104/60 07/08 1938 Room Air Intake & Output 07/09 1600 07/09 0800 07/09 0000 Intake Total 360 110 200 Output Total 550 200 250 Balance -190 -90 -50 Intake, IV 10 Intake, Oral 360 100 200 Output, Urine 550 200 250 Patient 158 lb Weight Attending MD Review Statement Attending Statement Attending MD Statement: examined this patient, discuss w/resident/PA/SYNCHRONIZER, agreed w/resident/PA/SYNCHRONIZER, discussed with family, reviewed EMR data (avail), discussed with nursing, discussed with case mgmt, reviewed images Attending Assessment/Plan: Mrs. Ryan Corona is a 76-year-old female with a history of anxiety/ depression, rheumatoid arthritis on chronic steroid therapy, previous deep venous thrombosis on chronic anticoagulation with the factor Xa inhibitor Eliquis (apixaban), obesity, obstructive sleep apnea on CPAP, chronic anemia, hypertension, left ventricular hypertrophy with diastolic dysfunction, and aortic regurgiatation, who presented to the ED on 07/07/2017 with complaints of chronic fatigue, shortness of breath, and worsening bilateral lower extremity edema and his troponin I came back modestly elevated with no associated chest discomfort or acute electrocardiographic changes. She was last hospitalized here earlier this month (06/23-07/02/2017) with symptomatic anemia and modest troponin I elevation, requiring transfusion 2 with no obvious etiology for the bleeding documented and with the plan for an outpatient pill cam. She additionally had evidence of acute on chronic kidney injury, and was seen in consultation by nephrology and gradually improved from that standpoint. Finally, given concerns about underlying coronary artery disease, she was transferred to [facility] where she underwent cardiac catheterization on 07/02/2017 that revealed: LM- patent, LAD- long vessel wrapping around the apex with a ~70% proximal stenosis, LCx- 60% ostial M1, and RCA- dominant and patent, & LV gram-not done. Based on these findings she underwent PCI/LILIAN (Resolute) to the LAD stenosis with 0% residual stenosis and ELSY-3 flow. Additional pertinent past history: she has a colostomy (vide infra) and is on chronic iron therapy with chronically dark colostomy bag contents. She was hospitalized here (10/10-10/28/2014) for colonic perforation following a colonoscopy preformed for GI symptoms s/p Constance procedure with subsequent modest bump in troponin felt secondary to type II myocardial infarction, volume overload, acute kidney injury, and growth of Escherichia coli in her body fluid who was again admitted (-11/17/2014) after presenting to the ED with constant periumbilical 8/10 ache with some associated shortness of breath with room air O2 saturation at ECF 88% following 2 days of decreased by mouth intake secondary to poor appetite and nausea. Also reportedly had a fever, nausea and vomited 3, as well as, some loose stool in her colostomy bag. In the emergency department she was afebrile, tachypneic, and did have an elevated WBC count with left shift. There were no symptoms to suggest a urinary tract infection. She had a low probability V/Q scan and had been recommended thoracentesis for bilateral pleural effusions, but opted to be transferred to [facility]. There was no evidence of an acute intra-abdominal process. Thoracentesis was reportedly performed at [facility]. She was admitted to [facility] for a left lower extremity deep venous thrombosis in July 2016 and started on anticoagulation with a factor Xa inhibitor. She was also reportedly admitted to [facility] for pneumonia and pleural effusions for which she underwent thoracentesis. She was also hospitalized here (04/02-04/17/2017) with HFpEF, bilateral pleural effusions, and bronchitis/pneumonia. Physical examination: Elderly, pale appearing overweight elderly female in no acute distress with nasal oxygen in place. Vital signs: See above. HEENT: Normocephalic, atraumatic, EOMI, slightly dry mucous membranes. Neck: No JVD, no bruits. Lungs: Decreased breath sounds bilaterally. Heart: S1, S2 with a grade 2/6 systolic murmur. No gallop or rub. PMI fifth ICS at [facility]. Abdomen: Soft, nontender, positive bowel sounds. Extremities: 2+ bilateral lower extremity edema. Studies: ECG 07/07/2017: Sinus rhythm, probable LVH with inferior, lateral, and high lateral nondiagnostic T-wave abnormalities. No change from previous tracing. CXR 07/07/2017: Small bilateral pleural effusions with associated airspace disease. Stable cardiomegaly. Bilateral lower extremity venous Doppler ultrasound 07/07/2017: No deep vein thrombosis visualized in the left or right lower extremities. However, imaging is suboptimal due to body habitus, pitting edema and bandages over the right groin region. There are no focal fluid collections. There is diffuse edema in the lower extremities bilaterally. Impression: [id number] w/ hx anxiety/depression, RA on steroid Rx, DVT on NOAC, obesity, TACO , HTN, LVH, AR, and diastolic dysfunction, colonic perforation following colonoscopy s/p Constance procedure September 2014 complicated by type II NH, MARVEL, bacteremia, etc. and chronic anemia with very recent hospitalization for symptomatic anemia that improved with transfusion of PRBCs complicated by MARVEL on CKD, etc. who improved the standard measures, but who was transferred for cardiac catheterization that revealed a 70% LAD stenosis that was stented is to 0% residual stenosis and ELSY-3 flow who now returns with chronic weakness, shortness of breath and a new bilateral lower extremity edema without evidence of DVT and a modest troponin I elevation likely in the basis of a type II NH and not an ACS. Recommendations: * Admit to telemetry, follow-up troponins, follow-up electrocardiograms. * Strict inputs/outputs and daily weights. * Diurese with IV furosemide 40 mg daily and reassess the need for further IV diuresis on a daily basis based on clinical improvement, renal function, etc. * Repeat CXR in 48 hours. * Continue the rest of her cardiac regimen. * DVT prophylaxis.
[2017-07-07] MEDS ORDERED: PLAVIX75 M1 PO (22:07)
[2017-07-07 22:41] LABS: PT 17.3 SEC (9.4-12.5); PTT 35 SEC (25-37)
[2017-07-08 06:25] LABS: ABSOLUTE BASOPHIL COUNT 0 /CUMM (0.0-0.2); ABSOLUTE EOSINOPHIL COUNT 0.2 /CUMM (0.0-0.7); ABSOLUTE GRANULOCYTE CT 5.8 /CUMM (1.4-6.5); ABSOLUTE LYMPH COUNT 1.8 /CUMM (1.2-3.4); ABSOLUTE MONOCYTE COUNT 0.7 /CUMM (0.10-0.60); BASOPHIL % 0.5 % (0.0-2.0); EOSINOPHIL % 2.3 % (0-5); GRANULOCYTE % 68.5 % (42.2-75.2); HEMATOCRIT 27.2 % (37-47); MEAN CORPUSCULAR HGB 30.3 PG (27.0-31.0); MEAN CORPUSCULAR HGB CONC 33.4 G/DL (33.0-37.0); MEAN CORPUSCULAR VOLUME 90.7 FL (81.0-99.0); MEAN PLATELET VOLUME 8.5 FL (7.4-10.4); PLATELET COUNT 214 /CUMM (130-400); RBC DISTRIBUTION WIDTH 16.6 % (11.5-14.5); WHITE BLOOD CELL COUNT 8.5 /CUMM (4.8-10.8)
--- NOTE | 2017-07-08 07:21 | PN- Housestaff ---
Subjective Follow-up For: CHF exacerbation Diarrhea Tele-Events Since Last Visit: HR remained in 90s Subjective: No overnight events. Patient remained afebrileand examined this morning. She is on room air maintaining saturation 90%. She denied any chest pain, palpitation, chills, fever, lightheadedness dysuria. Patient reported having mild discomfort in the abdomen with loose bowel movement. Patient also reported having exertional dyspnea but that her baseline. Review of Systems Constitutional: Denies: chills, fever. EENTM: Reports: no symptoms. Cardiovascular: Denies: chest pain, palpitations. Respiratory: Reports: short of breath. Denies: cough, sputum production. Gastrointestinal: Denies: abdominal pain, constipation, diarrhea, nausea. Genitourinary: Reports: no symptoms. Musculoskeletal: Reports: no symptoms. Neurological/Psychological: Reports: no symptoms. Objective Last 24 Hrs of Vital Signs/I&O Vital Signs Date Time Temp Pulse Resp B/P B/P Pulse O2 O2 Flow FiO2 Mean Ox Delivery Rate 07/08 0903 98.0 65 18 124/07/08 0903 98.0 65 18 124/58 07/08 0819 98.0 65 18 124/58 96 Room Air 07/08 0613 96.9 60 18 165/71 98 Room Air 07/08 0309 97.9 62 18 141/64 98 Room Air 07/08 0010 97.9 62 20 159/66 07/07 2341 97.9 62 20 159/66 96 Room Air 07/07 2236 60 18 143/63 98 Room Air 07/07 1845 98.1 56 17 167/68 95 Room Air 07/07 1459 97.7 59 18 129/58 96 Room Air Intake & Output 07/08 1600 07/08 0800 07/08 0000 Intake Total Output Total 500 650 Balance -500 -650 Output, Urine 500 650 Physical Exam General Appearance: Alert, Oriented X3, Cooperative Skin: No Rashes Skin Temp/Moisture Exam: Warm/Dry HEENT: Atraumatic, PERRLA, EOMI Neck: Supple Cardiovascular: Normal S1, Normal S2 Lungs: B/L crepitus in lung Abdomen: Soft, No Tenderness, colostomy bag on left side. Neurological: Normal Speech, Strength at 5/5 X4 Ext, Normal Tone Extremities: B/L pedal edema up to thighs Assessment/Plan Assessment: 76yo F with PMH of HTN, DVT, anemia, TACO on CPAP, anxiety, hypothyroidism, depression, rheumatoid arthritis, and s/p colostomy presented to the ED with complains of lower extremity swelling, weakness and shortness of breath. The patient states that she was recently discharged from [place] on 06/25/17. We are seeing the patient on telemetry floor for the following problems: Acute on chronic diastolic CHF: -Patient was not on Lasix in her home med list. -Continue IV Lasix 40 mg daily. -Daily weight -Monitor input and output -Cardiology consult -Echocardiogram -Elevate the legs to decrease the swelling. -Heart healthy diet Diarrhea: -Follow-up C. difficile results -Maintaining oral intake -Guaiac-positive stools H/O recent cardiac cath and stent placement: -Continue aspirin and plavix. -continue carvedilol. Type 2 CA: -Possibly due to anemia and CKD. -Trend trops History of chronic anemia: -Probably multifactorial due to her chronic kidney injury and she was on hydroxychloroquine that was stopped. -Guaiac-positive stools -Monitor her CBCs Pheripheral neuropathy: -Continue gabapentin 100mg tid. History of rheumatoid arthritis -Continue prednisone History of chronic neck pain: -Continue home medications. History of hypothyroidism: -Continue levothyroxine History of DVT: -Patient was on xeralto that was stopped because of anemia. History of hypertension: -Continue home medications History of colonic perforation status post colostomy: -Patient has Emanuel procedure due to colonic perforation. -Her colostomy is working. DVT prophylaxis: Mechanical only CODE STATUS: DNR/DNI Problem List: 1. Elevated troponin 2. CHF (congestive heart failure) Pain Ratin Pain Location: none Pain Goal: Remain pain free Pain Plan: pain pathway Tomorrow's Labs & Rationales: bep/cbc/mag
[2017-07-08 15:15] VITALS: BP 104/60
[2017-07-08 22:25] VITALS: BP 138/62
[2017-07-09 05:57] VITALS: BP 118/60
--- NOTE | 2017-07-09 07:00 | PN- Housestaff ---
Subjective Follow-up For: CHF exacerbation Abdominal pain Tele-Events Since Last Visit: And his rhythm with heart rate between 5560 Subjective: Patient was complaining of abdominal pain overnight 10/31 and she got pain medication. Patient remained afebrile overnight. Seen and examined this morning. She denied any chest pain, short of breath, nausea, vomiting, chills, fever and dysuria. Patient didn't have any bowel movement yesterday. Review of Systems Constitutional: Denies: chills, fever. EENTM: Reports: no symptoms. Cardiovascular: Denies: chest pain, palpitations. Respiratory: Denies: cough, short of breath, sputum production. Gastrointestinal: Reports: abdominal pain. Denies: nausea, vomiting. Genitourinary: Reports: see HPI. Neurological/Psychological: Reports: no symptoms. Objective Last 24 Hrs of Vital Signs/I&O Vital Signs Date Time Temp Pulse Resp B/P B/P Pulse O2 O2 Flow FiO2 Mean Ox Delivery Rate 07/09 0557 97.7 58 18 118/60 92 Room Air 07/08 2225 98.3 65 18 138/62 95 Room Air 07/08 2027 60 104/60 07/08 1938 Room Air 07/08 1515 98.2 60 18 104/60 94 Room Air 07/08 0903 98.0 65 18 124/58 07/08 0903 98.0 65 18 124/58 07/08 0819 98.0 65 18 124/58 96 Room Air Intake & Output 07/09 1600 07/09 0800 07/09 0000 Intake Total 110 200 Output Total 200 250 Balance -90 -50 Intake, IV 10 Intake, Oral 100 200 Output, Urine 200 250 Patient 158 lb Weight Physical Exam General Appearance: Alert, Oriented X3, Cooperative Skin: No Rashes Skin Temp/Moisture Exam: Warm/Dry Sepsis Skin Exam (color): Normal for Ethnicity HEENT: Atraumatic, PERRLA, EOMI Neck: Supple Cardiovascular: Normal S1, Normal S2 Lungs: Clear to Auscultation Abdomen: Soft Neurological: Normal Speech, Strength at 5/5 X4 Ext, Normal Tone Extremities: b/l pedal edema Assessment/Plan Assessment: 76yo F with PMH of HTN, DVT, anemia, TACO on CPAP, anxiety, hypothyroidism, depression, rheumatoid arthritis, and s/p colostomy presented to the ED with complains of lower extremity swelling, weakness and shortness of breath. The patient states that she was recently discharged from [place] on 06/25/17. We are seeing the patient on telemetry floor for the following problems: Acute on chronic diastolic CHF: -Patient was not on Lasix in her home med list. -Continue IV Lasix 40 mg daily. -Daily weight -Monitor input and output -Cardiology consult -Echocardiogram -Elevate the legs to decrease the swelling. -Heart healthy diet Diarrhea and abdominal apin: -Follow-up C. difficile results -Maintaining oral intake -Guaiac-positive stools H/O recent cardiac cath and stent placement: -Continue aspirin and plavix. -continue carvedilol. Type 2 AR: -Possibly due to anemia and CKD. -Trend trops History of chronic anemia: -Probably multifactorial due to her chronic kidney injury and she was on hydroxychloroquine that was stopped. -Guaiac-positive stools -Monitor her CBCs Pheripheral neuropathy: -Continue gabapentin 100mg tid. History of rheumatoid arthritis -Continue prednisone History of chronic neck pain: -Continue home medications. History of hypothyroidism: -Continue levothyroxine History of DVT: -Patient was on xeralto that was stopped because of anemia. History of hypertension: -Continue home medications History of colonic perforation status post colostomy: -Patient has Emanuel procedure due to colonic perforation. -Her colostomy is working. DVT prophylaxis: Mechanical only CODE STATUS: DNR/DNI Problem List: 1. CHF (congestive heart failure) 2. Abdominal pain Pain Ratin Pain Location: abdomen Pain Goal: Pain 4 or less Pain Plan: pain pathway Tomorrow's Labs & Rationales: cbc/bep
[2017-07-09 08:19] LABS: ABSOLUTE BASOPHIL COUNT 0 /CUMM (0.0-0.2); ABSOLUTE EOSINOPHIL COUNT 0.1 /CUMM (0.0-0.7); ABSOLUTE GRANULOCYTE CT 4.6 /CUMM (1.4-6.5); ABSOLUTE LYMPH COUNT 1.5 /CUMM (1.2-3.4); ABSOLUTE MONOCYTE COUNT 0.5 /CUMM (0.10-0.60); BASOPHIL % 0.6 % (0.0-2.0); EOSINOPHIL % 1.9 % (0-5); GRANULOCYTE % 67.5 % (42.2-75.2); HEMATOCRIT 25.7 % (37-47); MEAN CORPUSCULAR HGB 30.3 PG (27.0-31.0); MEAN CORPUSCULAR HGB CONC 32.8 G/DL (33.0-37.0); MEAN CORPUSCULAR VOLUME 92.4 FL (81.0-99.0); MEAN PLATELET VOLUME 8.6 FL (7.4-10.4); PLATELET COUNT 181 /CUMM (130-400); RBC DISTRIBUTION WIDTH 16.9 % (11.5-14.5); RED BLOOD CELL CT 2.78 /CUMM (4.20-5.40); WHITE BLOOD CELL COUNT 6.8 /CUMM (4.8-10.8)
--- NOTE | 2017-07-09 17:39 | ECHOCARDIOGRAM REPORT ---
RYAN CHRISTENSEN Age: 76 : 1940 Gender: F Exam Date: 07/08/2017 19:39 Exam Location: [address] Ht (in): 56 Wt (lb): 154 BSA: 1.70 BP: 165 / 71 Ordering Physician: Essie Castillo MD Referring Physician: Juan Ulrich MD, PhD Technologist: Charlie Hope [facility] Room Number: [id number] Indications: MYOCARDIAL ISCHEMIA/MT Rhythm: Sinus Technical Quality: Poor FINDINGS Left Ventricle Normal size left ventricle. Moderate concentric left ventricular hypertrophy. No obvious regional wall motion abnormalities. Normal left ventricular ejection fraction visually estimated at >65%. Restrictive filling pattern of the left ventricle for age (stage 3 diastolic dysfunction). Right Ventricle Normal right ventricular size and function. Right Atrium Mild right atrial dilatation. Left Atrium Moderate left atrial dilatation. Mitral Valve Mild mitral annular calcification. Mitral valve thickened. Mild mitral regurgitation. Aortic Valve Trileaflet aortic valve. Diffuse mild thickening of the aortic valve cusps with reduced excursion. Mild aortic stenosis. Mild aortic regurgitation. Tricuspid Valve Structurally normal tricuspid valve. Mild to moderate tricuspid regurgitation. No evidence of pulmonary hypertension. Right ventricular systolic pressure estimated to be within the normal range at 28 mmHg. Pulmonic Valve Pulmonic valve not well visualized, grossly normal. Mild pulmonic regurgitation. Pericardium No pericardial effusion. Left pleural effusion. Great Vessels Normal size aortic root. Dilated inferior vena cava. CONCLUSIONS Normal size left ventricle. Moderate concentric left ventricular hypertrophy. Normal left ventricular ejection fraction visually estimated at > 65%. Restrictive filling pattern of the left ventricle for age (stage 3 diastolic dysfunction). Normal right ventricular size and function. Mild right atrial dilatation. Moderate left atrial dilatation. Mild mitral regurgitation. Mild aortic stenosis. Mild aortic regurgitation. Mild to moderate tricuspid regurgitation. No evidence of pulmonary hypertension. Mild pulmonic regurgitation. Left pleural effusion. Dilated inferior vena cava. Jayson Zavala M.D. (Electronically Signed) Final Date: 09 July 2017 17:39 MEASUREMENTS (Male / Female) Normal Values 2D ECHO LV Diastolic Diameter PLAX 4.1 cm 4.2 - 5.9 / 3.9 - 5.3 cm LV Systolic Diameter PLAX 2.0 cm 2.1 - 4.0 cm LV Fractional Shortening PLAX 51.2 % 25 - 46 % LV Ejection Fraction 2D Teich 82.9 % IVS Diastolic Thickness 1.5 cm LVPW Diastolic Thickness 1.5 cm LV Relative Wall Thickness 0.7 RV Internal Dim ED PLAX 2.2 cm 1.9 - 3.8 cm LVOT Diameter 1.9 cm Aortic Root Diameter 2.7 cm LA Systolic Diameter LX 4.5 cm 3.0 - 4.0 / 2.7 - 3.8 cm LA Volume 45.0 cm 18 - 58 / 22 - 52 cm Ascending Aorta Diameter 3.1 cm DOPPLER AV Peak Velocity 209.0 cm/s AV Peak Gradient 17.5 mmHg AV Mean Velocity 132.0 cm/s AV Mean Gradient 8.0 mmHg AV Velocity Time Integral 39.7 cm LVOT Peak Velocity 121.0 cm/s LVOT Peak Gradient 5.9 mmHg LVOT Mean Velocity 82.4 cm/s LVOT Mean Gradient 3.0 mmHg LVOT Velocity Time Integral 22.7 cm LVOT Stroke Volume 64.4 cm AV Area Cont Eq vti 1.6 cm AV Area Cont Eq pk 1.6 cm MV Peak Velocity 126.0 cm/s MV Peak Gradient 6.4 mmHg MV Mean Velocity 60.4 cm/s MV Mean Gradient 2.0 mmHg Mitral E Point Velocity 114.0 cm/s Mitral A Point Velocity 52.8 cm/s Mitral E to A Ratio 2.2 MV PHT Velocity 131.0 cm/s MV Deceleration Bulloch 566.0 cm/s MV Pressure Half Time 69.4 ms MV Area PHT 3.2 cm MV Deceleration Time 201.0 ms TR Peak Velocity 238.0 cm/s TR Peak Gradient 22.7 mmHg Right Atrial Pressure 5.0 mmHg Pulmonary Artery Systolic Pressu 27.7 mmHg Right Ventricular Systolic Press 27.7 mmHg PV Peak Velocity 121.0 cm/s PV Peak Gradient 5.9 mmHg PV Mean Velocity 87.0 cm/s PV Mean Gradient 3.0 mmHg PV Velocity Time Integral 26.2 cm LV E' Lateral Velocity 7.9 cm/s Mitral E to LV E' Lateral Ratio 14.4 LV E' Septal Velocity 5.5 cm/s Mitral E to LV E' Septal Ratio 20.9
--- NOTE | 2017-07-09 19:56 | PN- Cardiology ---
Subjective Subjective: Was seen on 07/08/2017 while she was visiting with family members and was feeling somewhat improved. Her breathing was better and she was less edematous. Objective Vital Signs and I&Os Vital Signs Date Time Temp Pulse Resp B/P B/P Pulse O2 O2 Flow FiO2 Mean Ox Delivery Rate 07/09 1528 97.3 58 20 92 Room Air 07/09 0557 97.7 58 18 118/60 92 Room Air 07/08 2225 98.3 65 18 138/62 95 Room Air 07/08 2027 60 104/60 Intake & Output 07/09 1600 07/09 0800 07/09 0000 07/08 1600 07/08 0800 07/08 0000 Intake Total 360 110 200 Output Total 550 200 250 600 500 650 Balance -190 -90 -50 -600 -500 -650 Intake, IV 10 Intake, Oral 360 100 200 Output, Urine 550 200 250 600 500 650 Patient 158 lb 154 lb Weight Assessment/Plan Assessment/Plan [id number] w/ hx anxiety/depression, RA on steroid Rx, DVT on NOAC, obesity, TACO , HTN, LVH, AR, and diastolic dysfunction, colonic perforation following colonoscopy s/p Constance procedure September 2014 complicated by type II [place], MARVEL, bacteremia, etc. and chronic anemia with very recent hospitalization for symptomatic anemia that improved with transfusion of PRBCs complicated by MARVEL on CKD, etc. who improved the standard measures, but who was transferred for cardiac catheterization that revealed a 70% LAD stenosis that was stented is to 0% residual stenosis and ELSY-3 flow who now returns with chronic weakness, shortness of breath and a new bilateral lower extremity edema without evidence of DVT and a modest troponin I elevation likely in the basis of a type II [place] and not an ACS. Recommendations: * Continue on telemetry. * Continue diuresis with strict inputs/outputs, daily weights, etc. * Reassess the need for further IV diuresis in the a.m. after clinical status, renal function, etc. reviewed. * Continue DVT prophylaxis. Continue telemetry? Yes
--- NOTE | 2017-07-09 19:59 | PN- Cardiology ---
Subjective Subjective: Feels as though she is continuing to improve with better breathing and less bilateral lower extremity edema. Objective Vital Signs and I&Os Vital Signs Date Time Temp Pulse Resp B/P B/P Pulse O2 O2 Flow FiO2 Mean Ox Delivery Rate 07/09 1528 97.3 58 20 92 Room Air 07/09 0557 97.7 58 18 118/60 92 Room Air 07/08 2225 98.3 65 18 138/62 95 Room Air 07/08 2027 60 104/60 Intake & Output 07/09 1600 07/09 0800 07/09 0000 07/08 1600 07/08 0807/08 0000 Intake Total 360 110 200 Output Total 550 200 250 600 500 650 Balance -190 -90 -50 -600 -500 -650 Intake, IV 10 Intake, Oral 360 100 200 Output, Urine 550 200 250 600 500 650 Patient 158 lb 154 lb Weight Current Medications: Current Medications Sig/Rick Start time Last Medication Dose Route Stop Time Status Admin Acetaminophen 650 MG Q6P PRN 07/07 2044 AC PO Al Hydroxide/Mg 30 ML .STK-MED ONE 07/08 2236 DC Hydroxide PO 07/08 2237 Aspirin 81 MG DAILY 07/08 09 AC 07/09 PO 1201 Carvedilol 25 MG BID 07/07 235 AC 07/09 PO 1201 Cholecalciferol 1,000 IU DAILY 07/08 09 AC 07/09 PO 1201 Clopidogrel Bisulfate 75 MG DAILY 07/08 09 AC 07/09 PO 1201 Furosemide 40 MG DAILY 07/07 2200 AC 07/09 IV 0838 Gabapentin 100 MG Q8 07/07 2359 AC 07/09 PO 1424 Hydromorphone HCl 2 MG Q8P PRN 07/075 AC 07/09 PO 0056 Hyoscyamine 0.125 MG ONCE ONE 07/08 2245 DC PO 07/08 224 Levothyroxine Sodium 0.025 MG DAILY AC 07/08 07 AC 07/09 PO 0632 Lisinopril 10 MG QAM 07/08 0900 AC 07/09 PO 1201 Metoclopramide HCl 10 MG TID 07/08 09 AC 07/09 PO 1909 Polyethylene Glycol 17 GM ONCE ONE 07/08 2245 CAN PO 07/08 2246 Prednisone 10 MG QAM 07/08 0900 AC 07/09 PO 1201 Sertraline HCl 25 MG QAM 07/08 0900 AC 07/09 PO 1201 Tramadol HCl 50 MG Q6 PRN 07/07 2215 AC 07/09 PO 1202 Results Last 48 Hrs of Labs/Mics: Laboratory Tests 07/09/17 0620: Anion Gap 6, Estimated GFR 22 L, BUN/Creatinine Ratio 20.9, Magnesium 1.8, CBC w Diff NO MAN DIFF REQ, RBC 2.78 L, MCV 92.4, MCH 30.3, MCHC 32.8 L, RDW 16.9 H, MPV 8.6, Gran % 67.5, Lymphocytes % 22.5, Monocytes % 7.5, Eosinophils % 1.9, Basophils % 0.6, Absolute Granulocytes 4.6, Absolute Lymphocytes 1.5, Absolute Monocytes 0.5, Absolute Eosinophils 0.1, Absolute Basophils 0 07/08/17 1814: Troponin I 0.50 *H 07/08/17 1146: Troponin I 0.57 *H 07/08/17 0600: Anion Gap 5, Estimated GFR 26 L, BUN/Creatinine Ratio 25.3 H, CBC w Diff NO MAN DIFF REQ, RBC 3.00 L, MCV 90.7, MCH 30.3, MCHC 33.4, RDW 16.6 H, MPV 8.5, Gran % 68.5, Lymphocytes % 20.9, Monocytes % 7.8, Eosinophils % 2.3, Basophils % 0.5, Absolute Granulocytes 5.8, Absolute Lymphocytes 1.8, Absolute Monocytes 0.7 H, Absolute Eosinophils 0.2, Absolute Basophils 0 07/07/17 2222: Troponin I 0.49 *H Microbiology 07/08 0300 STOOL: Clostridium difficile Toxin A & B - COMP Recent Imaging Studies: Echocardiogram 07/08/2017: Normal size left ventricle. Moderate concentric left ventricular hypertrophy. Normal left ventricular ejection fraction visually estimated at > 65%. Restrictive filling pattern of the left ventricle for age (stage 3 diastolic dysfunction). Normal right ventricular size and function. Mild right atrial dilatation. Moderate left atrial dilatation. Mild mitral regurgitation. Mild aortic stenosis. Mild aortic regurgitation. Mild to moderate tricuspid regurgitation. No evidence of pulmonary hypertension. Mild pulmonic regurgitation. Left pleural effusion. Dilated inferior vena cava. Assessment/Plan Assessment/Plan [id number]-o-w-f w/ hx anxiety/depression, RA on steroid Rx, DVT on NOAC, obesity, TACO , HTN, LVH, AR, and diastolic dysfunction, colonic perforation following colonoscopy s/p Constance procedure September 2014 complicated by type II [place], MARVEL, bacteremia, etc. and chronic anemia with very recent hospitalization for symptomatic anemia that improved with transfusion of PRBCs complicated by MARVEL on CKD, etc. who improved the standard measures, but who was transferred for cardiac catheterization that revealed a 70% LAD stenosis that was stented is to 0% residual stenosis and ELSY-3 flow who now returns with chronic weakness, shortness of breath and a new bilateral lower extremity edema without evidence of DVT and a modest troponin I elevation likely in the basis of a type II [place] and not an ACS. Recommendations: * Continue on telemetry. * Continue diuresis with strict inputs/outputs, daily weights, etc. * Reassess the need for further IV diuresis in the a.m. after clinical status, renal function, etc. reviewed. Suspect we will be able to discontinue the IV furosemide tomorrow and place on maintenance oral diuretic therapy. * Continue DVT prophylaxis. Continue telemetry? Yes
[2017-07-09 22:38] VITALS: BP 122/64
[2017-07-09 22:44] VITALS: BP 122/64
[2017-07-10 06:50] VITALS: BP 122/62
--- NOTE | 2017-07-10 07:33 | PN- Housestaff ---
Subjective Follow-up For: CHF exacerbation Tele-Events Since Last Visit: Patient remained in sinus rhythm with heart rate 5762 Subjective: No overnight events. Patient remained afebrile. Seen and examined this morning. She denied any chest pain, palpitation, nausea, vomiting and dysuria. Review of Systems Constitutional: Denies: chills, fever. EENTM: Reports: no symptoms. Cardiovascular: Denies: chest pain, palpitations. Respiratory: Reports: short of breath. Denies: cough, sputum production. Gastrointestinal: Denies: abdominal pain, constipation, nausea. Genitourinary: Reports: no symptoms. Musculoskeletal: Reports: no symptoms. Neurological/Psychological: Reports: no symptoms. Objective Last 24 Hrs of Vital Signs/I&O Vital Signs Date Time Temp Pulse Resp B/P B/P Pulse O2 O2 Flow FiO2 Mean Ox Delivery Rate 07/10 0650 98.6 60 16 122/62 96 Room Air 07/09 2244 98.6 63 16 122/64 96 Room Air 07/09 2141 58 118/60 07/09 1528 97.3 58 20 92 Room Air Intake & Output 07/10 0800 07/10 0000 07/09 1600 Intake Total 110 300 360 Output Total 550 300 550 Balance -440 0 -190 Intake, IV 10 Intake, Oral 100 300 360 Output, Urine 550 300 550 Patient 146 lb 155 lb Weight Physical Exam General Appearance: Alert, Oriented X3, Cooperative Skin Temp/Moisture Exam: Warm/Dry Sepsis Skin Exam (color): Normal for Ethnicity HEENT: Atraumatic, PERRLA, EOMI Neck: Supple Cardiovascular: Normal S1, Normal S2 Lungs: Clear to Auscultation Abdomen: Soft, No Tenderness Neurological: Normal Speech, Normal Tone Extremities: B/L pedal edema improving Assessment/Plan Assessment: 76yo F with PMH of HTN, DVT, anemia, TACO on CPAP, anxiety, hypothyroidism, depression, rheumatoid arthritis, and s/p colostomy presented to the ED with complains of lower extremity swelling, weakness and shortness of breath. The patient states that she was recently discharged from [place] on 06/25/17. We are seeing the patient on telemetry floor for the following problems: Acute on chronic diastolic CHF: -Patient was not on Lasix in her home med list. -Continue IV Lasix 40 mg daily. -Daily weight -Monitor input and output -F/U Cardiology recommendations -Echocardiogram showed ejection fraction more than 65% with stage III diastolic failure. -Elevate the legs to decrease the swelling. -Heart healthy diet Diarrhea and abdominal apin: -C.diff is negative -Maintaining oral intake -Guaiac-positive stools H/O recent cardiac cath and stent placement: -Continue aspirin and plavix. -continue carvedilol. Type 2 [place]: -Possibly due to anemia and CKD. -Trops are trended. History of chronic anemia: -Probably multifactorial due to her chronic kidney injury and she was on hydroxychloroquine that was stopped. -Guaiac-positive stools -Monitor her CBCs Pheripheral neuropathy: -Continue gabapentin 100mg tid. History of rheumatoid arthritis -Continue prednisone History of chronic neck pain: -Continue home medications. History of hypothyroidism: -Continue levothyroxine History of DVT: -Patient was on xeralto that was stopped because of anemia. History of hypertension: -Continue home medications History of colonic perforation status post colostomy: -Patient has Emanuel procedure due to colonic perforation. -Her colostomy is working. DVT prophylaxis: Mechanical only CODE STATUS: DNR/DNI Problem List: 1. CHF (congestive heart failure) 2. Elevated troponin Pain Ratin Pain Location: none Pain Goal: Remain pain free Pain Plan: pain pathway Tomorrow's Labs & Rationales: cbc/bep
[2017-07-10 08:17] LABS: ABSOLUTE BASOPHIL COUNT 0 /CUMM (0.0-0.2); ABSOLUTE EOSINOPHIL COUNT 0.1 /CUMM (0.0-0.7); ABSOLUTE GRANULOCYTE CT 4.5 /CUMM (1.4-6.5); ABSOLUTE LYMPH COUNT 1.4 /CUMM (1.2-3.4); ABSOLUTE MONOCYTE COUNT 0.4 /CUMM (0.10-0.60); BASOPHIL % 0.5 % (0.0-2.0); EOSINOPHIL % 1.9 % (0-5); GRANULOCYTE % 69.5 % (42.2-75.2); HEMATOCRIT 24.6 % (37-47); MEAN CORPUSCULAR HGB 30.1 PG (27.0-31.0); MEAN CORPUSCULAR HGB CONC 32.8 G/DL (33.0-37.0); MEAN PLATELET VOLUME 8.7 FL (7.4-10.4); PLATELET COUNT 186 /CUMM (130-400); RBC DISTRIBUTION WIDTH 16.6 % (11.5-14.5); RED BLOOD CELL CT 2.68 /CUMM (4.20-5.40); WHITE BLOOD CELL COUNT 6.5 /CUMM (4.8-10.8)
[2017-07-10 15:32] VITALS: BP 116/58
--- NOTE | 2017-07-10 19:30 | PN- Cardiology ---
Subjective Subjective: Feels as though her breathing has improved in her lower extremity edema has lessened. Objective Vital Signs and I&Os Vital Signs Date Time Temp Pulse Resp B/P B/P Pulse O2 O2 Flow FiO2 Mean Ox Delivery Rate 07/10 1532 98.3 63 18 116/58 93 Room Air 07/10 0826 60 122/62 07/10 0826 60 122/62 07/10 0650 98.6 60 16 122/62 96 Room Air 07/09 2244 98.6 63 16 122/64 96 Room Air 07/09 2141 58 118/60 Intake & Output 07/10 1600 07/10 0800 07/10 0000 07/09 1600 07/09 0800 07/09 0000 Intake Total 470 110 300 360 110 200 Output Total 450 550 300 550 200 250 Balance 20 -440 0 -190 -90 -50 Intake, IV 20 10 10 Intake, Oral 450 100 300 360 100 200 Number 1 Bowel Movements Output, Urine 450 550 300 550 200 250 Patient 146 lb 155 lb 158 lb Weight Physical Exam: Physical examination: Elderly, pale appearing overweight elderly female in no acute distress with nasal oxygen in place. Vital signs: See above. HEENT: Normocephalic, atraumatic, EOMI, slightly dry mucous membranes. Neck: No JVD, no bruits. Lungs: Decreased breath sounds bilaterally. Heart: S1, S2 with a grade 2/6 systolic murmur. No gallop or rub. PMI fifth ICS at MCL. Abdomen: Soft, nontender, positive bowel sounds. Extremities: 2+ bilateral lower extremity edema. Assessment/Plan Assessment/Plan 76-y-o-w-f w/ hx anxiety/depression, RA on steroid Rx, DVT on NOAC, obesity, TACO , HTN, LVH, AR, and diastolic dysfunction, colonic perforation following colonoscopy s/p Constance procedure September 2014 complicated by type II [place], MARVEL, bacteremia, etc. and chronic anemia with very recent hospitalization for symptomatic anemia that improved with transfusion of PRBCs complicated by MARVEL on CKD, etc. who improved the standard measures, but who was transferred for cardiac catheterization that revealed a 70% LAD stenosis that was stented is to 0% residual stenosis and ELSY-3 flow who now returns with chronic weakness, shortness of breath and a new bilateral lower extremity edema without evidence of DVT and a modest troponin I elevation likely in the basis of a type II [place] and not an ACS. Will continue present regimen. Maintain hemoglobin at or above 8.0 g/dl. DVT prophylaxis. Continue telemetry? Yes
[2017-07-10 23:08] VITALS: BP 118/64
[2017-07-11 06:00] VITALS: BP 122/68
--- NOTE | 2017-07-11 07:27 | PN- Housestaff ---
Subjective Follow-up For: CHF exacerbation Tele-Events Since Last Visit: Sinus rhythm with heart rate between 5059 Subjective: No overnight events. Patient remained afebrile. Seen and examined this morning. She denied any chest pain, nausea, vomiting, abdominal pain and dysuria. She has baseline shortness of breath on exertion probably due to her anemia. Her bilateral b/l edema has improved. Her colostomy bag had been changed yesterday. Review of Systems Constitutional: Denies: chills, fever. EENTM: Reports: no symptoms. Cardiovascular: Denies: chest pain, orthopena, palpitations. Respiratory: Reports: short of breath. Denies: cough, sputum production. Gastrointestinal: Denies: abdominal pain, constipation, nausea. Genitourinary: Reports: no symptoms. Musculoskeletal: Reports: no symptoms. Neurological/Psychological: Reports: no symptoms. Objective Last 24 Hrs of Vital Signs/I&O Vital Signs Date Time Temp Pulse Resp B/P B/P Pulse O2 O2 Flow FiO2 Mean Ox Delivery Rate 07/11 0600 98.1 60 20 122/68 95 Room Air 07/10 2308 97.5 64 16 118/64 94 Room Air 07/10 2135 70 140/80 07/10 1532 98.3 63 18 116/58 93 Room Air 07/10 0826 60 122/62 07/10 0826 60 122/62 Intake & Output 07/11 0800 07/11 0000 07/10 1600 Intake Total 120 120 470 Output Total 500 500 450 Balance -380 -380 20 Intake, IV 20 Intake, Oral 120 120 450 Number 1 Bowel Movements Output, Urine 500 500 450 Patient 156 lb Weight Physical Exam General Appearance: Alert, Oriented X3, Cooperative Skin: Bruises on right arm Skin Temp/Moisture Exam: Warm/Dry HEENT: Atraumatic, PERRLA, EOMI Neck: Supple Cardiovascular: Normal S1, Normal S2 Lungs: Clear to Auscultation Abdomen: Soft, No Tenderness Neurological: Normal Speech, Strength at 5/5 X4 Ext, Normal Tone Extremities: b/l pedal edema has improved Last 24 Hrs of Lab/Rubin Results Last 24 Hrs of Labs/Mics: Laboratory Tests 07/11/17 0649: CBC w Diff Pending, WBC Pending, RBC Pending, Hgb Pending, Hct Pending, MCV Pending, MCH Pending, MCHC Pending, RDW Pending, Plt Count Pending, MPV Pending Assessment/Plan Assessment: 76yo F with PMH of HTN, DVT, anemia, TACO on CPAP, anxiety, hypothyroidism, depression, rheumatoid arthritis, and s/p colostomy presented to the ED with complains of lower extremity swelling, weakness and shortness of breath. The patient states that she was recently discharged from [place] on 06/25/17. We are seeing the patient on telemetry floor for the following problems: Acute on chronic diastolic CHF: -Patient was not on Lasix in her home med list. -Continue IV Lasix 40 mg daily. -Daily weight -Monitor input and output -F/U Cardiology recommendations -Echocardiogram showed ejection fraction more than 65% with stage III diastolic failure. -Elevate the legs to decrease the swelling. -Heart healthy diet Diarrhea and abdominal apin:(resolved) -C.diff is negative -Maintaining oral intake History of chronic anemia: -Probably multifactorial due to her chronic kidney injury and she was on hydroxychloroquine that was stopped. -Guaiac-positive stools -Monitor her CBCs -Her Hb is droping, may need blood transfusion to keep Hb >8. H/O recent cardiac cath and stent placement: -Continue aspirin and plavix. -continue carvedilol. Type 2 [place]: -Possibly due to anemia and CKD. -Trops are trended. Pheripheral neuropathy: -Continue gabapentin 100mg tid. History of rheumatoid arthritis -Continue prednisone History of chronic neck pain: -Continue home medications. History of hypothyroidism: -Continue levothyroxine History of DVT: -Patient was on xeralto that was stopped because of anemia. History of hypertension: -Continue home medications History of colonic perforation status post colostomy: -Patient has Emanuel procedure due to colonic perforation. -Her colostomy is working. DVT prophylaxis: Mechanical only CODE STATUS: DNR/DNI Problem List: 1. CHF (congestive heart failure) Pain Ratin Pain Location: none Pain Goal: Remain pain free Pain Plan: pain pathway Tomorrow's Labs & Rationales: cbc/bep
[2017-07-11 07:40] LABS: ABSOLUTE BASOPHIL COUNT 0 /CUMM (0.0-0.2); ABSOLUTE EOSINOPHIL COUNT 0.2 /CUMM (0.0-0.7); ABSOLUTE GRANULOCYTE CT 4.2 /CUMM (1.4-6.5); ABSOLUTE LYMPH COUNT 1.6 /CUMM (1.2-3.4); ABSOLUTE MONOCYTE COUNT 0.5 /CUMM (0.10-0.60); BASOPHIL % 0.6 % (0.0-2.0); EOSINOPHIL % 2.8 % (0-5); GRANULOCYTE % 64.9 % (42.2-75.2); HEMATOCRIT 24.8 % (37-47); MEAN CORPUSCULAR HGB 30.4 PG (27.0-31.0); MEAN CORPUSCULAR HGB CONC 33.2 G/DL (33.0-37.0); MEAN CORPUSCULAR VOLUME 91.6 FL (81.0-99.0); MEAN PLATELET VOLUME 8.6 FL (7.4-10.4); PLATELET COUNT 185 /CUMM (130-400); RBC DISTRIBUTION WIDTH 16.9 % (11.5-14.5); WHITE BLOOD CELL COUNT 6.5 /CUMM (4.8-10.8)
--- NOTE | 2017-07-11 13:06 | Patient Discharge Instructions ---
Discharge Instructions General Discharge Information You were seen/treated for: CHF exacerbation Type 2 [place] Watch for these problems: Chest pain, palpitation, shortness of breath, leg swelling and light headedness. If you experience any of these symptoms call to your pcp or come to ED. Special Instructions: Follow up with pcp in one week. Follow up with cardiology in one week. Please check BEP on 07/14/17 Diet Recommended Diet: Heart Healthy Activity Activity Self Limited: Yes Acute Coronary Syndrome Inclusion Criteria At DC or during hospital stay patient has or had the following: ACS DIAGNOSIS No Discharge Core Measures Meds if any: Prescribed or Continued at Discharge Meds if any: NOT Prescribed or Continued at Discharge Congestive Heart Failure Inclusion Criteria At DC or during hospital stay patient has or had the following: CHF DIAGNOSIS Yes Discharge Core Measures Meds if any: Prescribed or Continued at Discharge Meds if any: NOT Prescribed or Continued at Discharge Comment diastolic CHF on ACEi Cerebrovascular accident Inclusion Criteria At DC or during hospital stay patient has or had the following: CVA/TIA Diagnosis No Discharge Core Measures Meds if any: Prescribed or Continued at Discharge Meds if any: NOT Prescribed or Continued at Discharge Venous thromboembolism Inclusion Criteria VTE Diagnosis No VTE Type NONE VTE Confirmed by (Test) NONE Discharge Core Measures - Per Current guidelines, there needs to be overlap - treatment for the first 5 days of Warfarin therapy. - If discharged on Warfarin prior to 5 days of - overlap therapy, the patient will need to be - assessed for post discharge needs including - *Post discharge parental anticoagulation - *Warfarin and/or parental anticoagulation education - *Follow up date to check INR post discharge At least 5 days overlap therapy as Inpatient No Meds if any: Prescribed or Continued at Discharge Note: Overlap Therapy is Warfarin and Anticoagulant Meds if any: NOT Prescribed or Continued at Discharge
--- NOTE | 2017-07-11 13:35 | Discharge Summary ---
Visit Information Visit Dates Admission Date: 07/07/17 Discharge Date: 07/11/17 Hospital Course Course Attending Physician: Lucas CURTIS,Jayson Hewitt Primary Care Physician: Tong CURTIS,[facility] Course: 76F PMH HTN, HFpEF, history of DVT on Xarelto, history of anemia, TACO on CPAP, anxiety, depression, rheumatoid arthritis, history of colonic perfusion s/p colostomy, hypothyroidism presented to ED with chief complaint of worsening shortness of breath, weakness and bilateral leg swelling. Patient was recently transferred to [facility] on 06/25/17 for cardiac catheterization. After cardiac catheterization and stent placement patient was discharged home. ED course; Vitals: Temperature 97.7, pulse 59, respiratory rate 18, blood pressure 129/58, oxygen saturation 96% room air Labs: WBC count 9.4, hemoglobin 9.6, hematocrit 28.9, platelet count 221, sodium 137, potassium 5.6, BUN 49, creatinine 2.0, BUNs/creatinine ratio 24.5, troponin 0.51, proBNP 9320 Acute on chronic diastolic CHF: Patient presented with acute on chronic diastolic CHF. She was recently discharged from [facility] after cardiac catheterization and stent placement. She was admitted under cardiology service and cardiology recommendations were followed. Patient was treated with IV Lasix and later on it was changed to by mouth Lasix. Daily weight was monitored. Input and output was monitored. Her bilateral leg swelling had improved. Her echocardiogram showed 65% ejection fraction with stage III diastolic failure. After stabilization patient was discharged home and she was instructed to follow cardiology as outpatient. Diarrhea and abdominal apin: Patient presented with loose bowel movements and abdominal pain. Her C. difficile was negative. Her abdominal pain resolved by itself and her frequency of bowel movement came back to baseline. History of chronic anemia: Patient has a history of chronic anemia possibly multifactorial considering her chronic kidney disease and use of hydroxychloroquine that was stopped recently. Her stools were guaiac positive although her H&H remained stable. Her H&H was monitored and it remained around 8. H/O recent cardiac cath and stent placement: Continued aspirin, plavix and carvedilol. Type 2 ID: Her troponin level remained elevated probably due to CKD and anemia. Her troponin level was trended. Cardiology evaluated the patient and recommended that elevated troponins possibly due to Type II ID and not an ACS. Pheripheral neuropathy: Continued gabapentin 100mg tid. History of rheumatoid arthritis Continued prednisone History of chronic neck pain: Continued home medications and followed pain pathway to manage pain. History of hypothyroidism: Continued levothyroxine History of DVT: Patient was on xeralto that was stopped due to anemia during her last admission after discussion of risks and benefits with the patient. History of hypertension: Continued home medications DVT prophylaxis: Mechanical only considering her guaiac-positive stools. CODE STATUS: DNR/DNI Allergies: Coded Allergies: Penicillins (SWELLING, RASH, ITCH 05/22/17) aspirin (RASH 05/22/17) cephalexin (From KEFLEX) (ITCHY 05/22/17) chocolate flavor (HEADACHE/MIGRAINE 07/01/17) codeine (ITCH 05/22/17) levofloxacin (From LEVAQUIN) (RASH 05/22/17) oxaprozin (From DAYPRO) (RASH 05/22/17) propoxyphene (UNKNOWN REACTION TO DARVOCET 05/22/17) Disposition Summary Disposition Principal Diagnosis: Acute on chronic diastolic CHF Type II ID Additional Diagnosis: History of peripheral neuropathy History rheumatoid arthritis History of hypothyroidism History of DVT History of hypertension History of chronic perforation status post colostomy State of chronic anemia History of CKD Discharge Disposition: home or self care Discharge Instructions General Discharge Information Code Status: Do Not Resucitate/Intubat Patient's Diet: Heart healthy diet Patient's Activity: Self limited Follow-Up Instructions/Appts: Follow up with pcp in one week. Follow up with cardiology in one week. Please check BEP on 07/14/17 Medications at Discharge Discharge Medications: Stop taking the following medications: Omeprazole (Omeprazole) 20 MG TABLET.DR ORAL DAILY Calcium Carbonate/Vitamin D3 (Oyster Shell Calcium + D Tab) 500 MG-200 TABLET ORAL DAILY Continue taking these medications: Levothyroxine Sodium (Levothyroxine Sodium) 25 MCG TABLET 1 Tablet ORAL DAILY BEFORE BREAKFAST Qty = 30 Comments: Last Taken: 07/11/17 Time: 0600 AM Lisinopril (Lisinopril) 10 MG TABLET 1 Tablet ORAL Every Morning Qty = 30 Comments: Last Taken: 07/11/17 Time: 0800 AM Sertraline HCl (Sertraline HCl) 25 MG TABLET 1 Tablet ORAL Every Morning Qty = 30 Comments: Last Taken: 07/11/17 Time: 0800 Prednisone (Prednisone) 10 MG TABLET 1 Tablet ORAL Every Morning Qty = 30 Comments: Last Taken: 07/11/17 Time: 0800 AM Carvedilol (Carvedilol) 25 MG TABLET 1 Tablet ORAL TWICE DAILY Qty = 60 Comments: Last Taken: 07/11/17 Time: 0800 AM Ergocalciferol (Vitamin D2) (Vitamin D2) 50,000 UNIT CAPSULE 1 Capsule ORAL EVERY FRIDAY Qty = 12 Comments: Last Taken: 07/11/17 Time: 0800 Calcium Carbonate/Vitamin D3 (Os-Mehdi 500+D3 Caplet) 500 MG-200 TABLET 1 Tablet ORAL DAILY Comments: NOT GIVEN Sennosides/Docusate Sodium (Senna Plus Tablet) 8.6 MG-50 MG TABLET 1 Tablet ORAL DAILY NEEDED as needed for CONSTIPATION Qty = 30 Instructions: . Comments: NOT GIVEN IN HOSPITAL. Ferrous Gluconate (Ferrous Gluconate) (Unknown Strength) TABLET Unknown Dose ORAL DAILY Comments: NOT GIVEN Furosemide (Lasix) 20 MG TABLET 1 Tablet ORAL DAILY Comments: Last Taken: 07/11/17 Time: 0800 AM Potassium Chloride (Klor-Con 10) (Unknown Strength) TABLET.ER Unknown Dose ORAL DAILY Comments: NOT GIVEN Metoclopramide HCl (Reglan) 10 MG TABLET 1 Tablet ORAL THREE TIMES DAILY Instructions: 30 minutes before meals and bedtime Comments: Last Taken: 07/11/17 Time: 230 PM Butalb/Acetaminophen/Caffeine (Rcmwfz-Ygshgurq-Yrra 50-325-40) 50 MG-325 MG-40 MG TABLET 1 Tablet ORAL TWICE DAILY as needed for migrain Comments: NOT GIVEN IN HOSPITAL. Cyclobenzaprine HCl (Cyclobenzaprine HCl) 5 MG TABLET 1 Tablet ORAL THREE TIMES A DAY NEEDED as needed for muscle spasms Comments: NOT GIVEN IN HOSPITAL. Fenofibrate,Micronized (Fenofibrate) 200 MG CAPSULE 1 Capsule ORAL DAILY Comments: NOT GIVEN IN HOSPITAL. Docusate Sodium (Docusate Sodium) 100 MG CAPSULE 1 Capsule ORAL DAILY Comments: NOT GIVEN IN HOSPITAL. Tramadol HCl (Tramadol HCl) 50 MG TABLET 1 Tablet ORAL EVERY SIX HOURS as needed for PAIN SCALE 7-10 (SEVERE) Qty = 30 Comments: Last Taken: 07/11/17 Time: 0530 AM Nitroglycerin (Nitroglycerin Patch) 0.4 MG/HOUR PATCH.TD24 1 PATCH On the skin DAILY Qty = 15 Comments: NOT GIVEN Gabapentin (Gabapentin) 100 MG CAPSULE 1 Capsule ORAL EVERY 8 HOURS Qty = 30 Comments: Last Taken: 07/11/17 Time: 230 PM Aspirin (Aspirin*) 81 MG TAB.CHEW 1 Tablet ORAL DAILY Qty = 30 Comments: Last Taken: 07/11/17 Time: 0800 AM Clopidogrel Bisulfate (Plavix) 75 MG TABLET 1 Tablet ORAL DAILY Qty = 30 Comments: Last Taken: 07/11/17 Time: 0800 Copies To: Tong CURTIS,Corrina; Lucas CURTIS,Jayson Hewitt
== END 2017-07-11 16:45 | DRG 282 ==
LOC: ERH 14:30 → ERHI 20:56 → 1NO 20:56 → ENRESERV 07-08 14:03 → ENTRNSPT 07-08 15:34 → EDTRNSPT 07-08 15:46 → EDTRNSPTSTS 07-08 15:46 → 1NO 07-08 15:54 → CMPTRNSPT 07-08 16:03 → 1NO 07-09 13:33 → EDPENDDISTM 07-11 13:35 → EDPENDDISDT 07-11 13:35 → 1NO 07-11 16:45
PROVIDERS: Internal Medicine; Physician Assistant Medical; Student in an Organized Health Care Education/Training Program
DX: I11.0 Hypertensive heart disease with heart failure (principal); I21.A1 Myocardial infarction type 2; G62.9 Polyneuropathy, unspecified; D64.9 Anemia, unspecified; M06.9 Rheumatoid arthritis, unspecified; Z93.4 Other artificial openings of gastrointestinal tract status; G47.33 Obstructive sleep apnea (adult) (pediatric); I25.10 Atherosclerotic heart disease of native coronary artery without angina pectoris; Z95.5 Presence of coronary angioplasty implant and graft; R60.0 Localized edema; I50.33 Acute on chronic diastolic (congestive) heart failure; I13.0 Hypertensive heart and chronic kidney disease with heart failure and stage 1 through stage 4 chronic kidney disease, or unspecified chronic kidney disease; N18.9 Chronic kidney disease, unspecified; R19.7 Diarrhea, unspecified; Z93.3 Colostomy status; Z86.718 Personal history of other venous thrombosis and embolism; F32.9 Major depressive disorder, single episode, unspecified; F41.9 Anxiety disorder, unspecified; E03.9 Hypothyroidism, unspecified; Z90.49 Acquired absence of other specified parts of digestive tract; Z88.6 Allergy status to analgesic agent; Z88.1 Allergy status to other antibiotic agents; Z88.5 Allergy status to narcotic agent; Z88.0 Allergy status to penicillin; Z88.8 Allergy status to other drugs, medicaments and biological substances; E55.9 Vitamin D deficiency, unspecified; G47.00 Insomnia, unspecified; E78.5 Hyperlipidemia, unspecified; H26.9 Unspecified cataract; Z90.710 Acquired absence of both cervix and uterus; Z66 Do not resuscitate; Z79.01 Long term (current) use of anticoagulants; Z68.34 Body mass index [BMI] 34.0-34.9, adult; E66.9 Obesity, unspecified
CPT/HCPCS: 1NSP; ERO; 36415; 36592; 71045; 82436; 93005; 93010; 93306; 93970; 96374; 99291; J1644; J1940; J3490; J7512

== ENCOUNTER 2017-07-18 10:17 | Inpatient (IN) | payer OTHER, MEDICARE ==
[~2017-07-18] VITALS: Ht 142.2 cm; Wt 77.1 kg
[~2017-07-18 10:17] MED LIST changes: +PLAVIX75 M1 PO
[2017-07-18 10:46] LABS: ABSOLUTE BASOPHIL COUNT 0 /CUMM (0.0-0.2); ABSOLUTE EOSINOPHIL COUNT 0.2 /CUMM (0.0-0.7); ABSOLUTE GRANULOCYTE CT 5.6 /CUMM (1.4-6.5); ABSOLUTE LYMPH COUNT 1.2 /CUMM (1.2-3.4); ABSOLUTE MONOCYTE COUNT 0.5 /CUMM (0.10-0.60); BASOPHIL % 0.4 % (0.0-2.0); EOSINOPHIL % 2.1 % (0-5); GRANULOCYTE % 75.4 % (42.2-75.2); HEMATOCRIT 25.6 % (37-47); MEAN CORPUSCULAR HGB 30.4 PG (27.0-31.0); MEAN CORPUSCULAR VOLUME 91.9 FL (81.0-99.0); PLATELET COUNT 228 /CUMM (130-400); RBC DISTRIBUTION WIDTH 16.4 % (11.5-14.5); RED BLOOD CELL CT 2.79 /CUMM (4.20-5.40); WHITE BLOOD CELL COUNT 7.4 /CUMM (4.8-10.8)
--- NOTE | 2017-07-18 10:58 | ED GI/GU/ABDOMINAL COMPLAINT ---
History of Present Illness General Chief Complaint: General Adult Stated Complaint: BIBA SOB, BLOOD IN COLOSTOMY BAG Source: patient, old records, home health aide Exam Limitations: no limitations Vital Signs & Intake/Output Vital Signs & Intake/Output Vital Signs Date Time Temp Pulse Resp B/P B/P Pulse O2 O2 Flow FiO2 Mean Ox Delivery Rate 07/18 1159 60 20 134/63 96 Room Air 07/18 1021 98.0 60 18 139/63 96 Room Air 07/18 1018 95 Room Air Room Air Allergies Coded Allergies: Penicillins (SWELLING, RASH, ITCH 07/18/17) cephalexin (From KEFLEX) (ITCHY 07/18/17) chocolate flavor (HEADACHE/MIGRAINE 07/18/17) codeine (ITCH 07/18/17) levofloxacin (From LEVAQUIN) (RASH 07/18/17) oxaprozin (From DAYPRO) (RASH 07/18/17) propoxyphene (UNKNOWN REACTION TO DARVOCET 07/18/17) Reconcile Medications Aspirin (Aspirin*) 81 MG TAB.CHEW 1 TAB PO DAILY Heart health Butalb/Acetaminophen/Caffeine (Jcpxwr-Fzdtcwml-Mtjl 50-325-40) 50 MG-325 MG-40 MG TABLET 1 TAB PO BID PRN migrain (Reported) Calcium Carbonate/Vitamin D3 (Os-Mehdi 500+D3 Caplet) 500 MG-200 TABLET 1 TAB PO DAILY SUPPLEMENT (Reported) Carvedilol 25 MG TABLET 1 TAB PO BID HEART/BP (Reported) Clopidogrel Bisulfate (Plavix) 75 MG TABLET 1 TAB PO DAILY HEART HEALTH ( Reported) Cyclobenzaprine HCl 5 MG TABLET 1 TAB PO TIDPRN PRN muscle spasms (Reported) Docusate Sodium 100 MG CAPSULE 1 CAP PO DAILY constipation (Reported) Ergocalciferol (Vitamin D2) (Vitamin D2) 50,000 UNIT CAPSULE 1 CAP PO QWED SUPPLEMENT (Reported) Fenofibrate,Micronized (Fenofibrate) 200 MG CAPSULE 1 CAP PO DAILY TG ( Reported) Ferrous Gluconate (Unknown Strength) TABLET (Unknown Dose) PO DAILY SUPPLEMENT (Reported) Furosemide (Lasix) 20 MG TABLET 1 TAB PO DAILY DIURETIC (Reported) Gabapentin 100 MG CAPSULE 1 CAP PO Q8 Neuropathy Levothyroxine Sodium 25 MCG TABLET 1 TAB PO DAILY AC THYROID (Reported) Lisinopril 10 MG TABLET 1 TAB PO QAM BP (Reported) Metoclopramide HCl (Reglan) 10 MG TABLET 1 TAB PO TID for nausea (Reported) 30 minutes before meals and bedtime Nitroglycerin (Nitroglycerin Patch) 0.4 MG/HOUR PATCH.TD24 1 PATCH TOP DAILY Heart health Potassium Chloride (Klor-Con 10) (Unknown Strength) TABLET.ER (Unknown Dose) PO DAILY SUPPLEMENT (Reported) Prednisone 10 MG TABLET 1 TAB PO QAM STEROID (Reported) Sennosides/Docusate Sodium (Senna Plus Tablet) 8.6 MG-50 MG TABLET 1 TAB PO DAILY NEEDED PRN CONSTIPATION . Sertraline HCl 25 MG TABLET 1 TAB PO QAM MENTAL HEALTH (Reported) Tramadol HCl 50 MG TABLET 1 TAB PO Q6 PRN PAIN SCALE 7-10 (SEVERE) Triage Note: 76F BIBA FROM HOME FOR BLOOD TO COLOSTOMY BAG SINCE LAST NIGHT AND INCREASING SOB AND SIEGEL. +PLAVIX, FOLLOWED BY DR [facility]. ARRIVES WITH BILATERAL LOWER EXTREMITY TRACE EDEMA, STATES SHE TAKES LASIX FOR HER CHF. ALSO HAS NOTABLE DISCOLORATION AND ?ABCESS TO RLE MCGEE MEASURING 5CM X 6CM WITH REDNESS AND SKIN SHEERING. ARRIVES AAOX3 AND DENIES CP OR PALPITATIONS. RECENTLY KS'ED LAST WEEK 07/11 WITH RECENT FALL AT [facility] Triage Nurses Notes Reviewed? yes LMP (ages 10-50): post menopausal ? n Is pt currently ? No Onset: Evening Duration: hour(s):, constant, continues in ED, getting worse Timing: recent history Quality/Severity: cramping, mild Radiation: no radiation Activities at Onset: none Prior Abdominal Problems: similar symptoms Past Sexual History: Unobtainable at this time No Modifying Factors: none Associated Symptoms: abdominal pain, shortness of breath HPI: The evening prior to admission patient noted to have black stools with scanty blood in colostomy bag. Upon arising and changing the bag there was blood mixed with black stool. She also complains of shortness of breath. There's been no fever chills nausea vomiting chest pain cough headache dysuria rash. Past History Travel History Traveled to [place] past 21 day No Medical History Any Pertinent Medical History? see below for history Neurological: migraine EENT: cataracts Cardiovascular: CHF, hypertension, hyperlipidemia Respiratory: pneumonia, DYSPNEA Gastrointestinal: diverticulitis, HEMORRHOIDS BOWEL RESECTION COLOSTOMY Hepatic: NONE Renal: 3+PROTEIN IN URINE [id number] Musculoskeletal: rheumatoid arthritis Psychiatric: anxiety, depression, insomnia Endocrine: vitamin D deficiency Blood Disorders: anemia Cancer(s): NONE GAUGER DELIVERY/Reproductive: NONE History of MRSA: No History of VRE: No History of CDIFF: No Surgical History Surgical History: colon resection, hysterectomy, laminectomy Psychosocial History Who do you live with Patient/Self Services at Home Servant What is your primary language Citizen Of [place] Tobacco Use: Never used Family History Family History, If Any: Relation not specified for: *No pertinent family history Hx Contributory? No Review of Systems Review of Systems Constitutional: Reports: see HPI, weakness. EENTM: Reports: no symptoms. Respiratory: Reports: see HPI, short of breath. Cardiovascular: Reports: no symptoms. GI: Reports: see HPI, abdominal pain, bloody stool. Genitourinary: Reports: no symptoms. Musculoskeletal: Reports: no symptoms. Skin: Reports: no symptoms. Neurological/Psychological: Reports: no symptoms. Hematologic/Endocrine: Reports: no symptoms. Immunologic/Allergic: Reports: no symptoms. All Other Systems: Reviewed and Negative Physical Exam Physical Exam General Appearance: well developed/nourished, alert, awake, anxious, mild distress Head: atraumatic, normal appearance Eyes: Bilateral: PERRL, EOMI, other (pale conjunctiva). Ears, Nose, Throat, Mouth: hearing grossly normal, moist mucous membrane Neck: normal inspection, supple, full range of motion, normal alignment Respiratory: chest non-tender, no respiratory distress, quiet respiration, crackles Cardiovascular: regular rate/rhythm, normal peripheral pulses, norml femoral pulses equa Peripheral Pulses: 4+ carotid (R), 4+ carotid (L) Gastrointestinal: normal bowel sounds, soft, non-tender, no organomegaly, gross blood in colostomy bag Back: normal inspection, normal range of motion Extremities: normal range of motion, pedal edema Neurologic/Psych: no motor/sensory deficits, awake, alert, oriented x 3, 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 No Sepsis Present: No Sepsis Focused Exam Completed? No Progress Differential Diagnosis: gastritis, PUD/GERD Plan of Care: Orders Procedure Date/time Status Heart Healthy Diet 07/18 D Active Patient Data 07/[address] in observation 07/18 1235 Active Patient Data 07/18 1155 Active OXYGEN SETUP (GEN) 07/18 1146 Active Saline Lock 07/18 1146 Active Vital Signs 07/18 1146 Active Activity/Ambulation 07/18 1146 Active Code Status 07/18 1146 Active FRESH FROZEN PLASMA 07/18 1138 Active Add-on Test (ER Only) 07/18 1104 Active PARTIAL THROMBOPLASTIN TIME 07/18 1036 Complete PROTHROMBIN TIME 07/18 1036 Complete COMPREHENSIVE METABOLIC PANEL 07/18 1036 Complete CBC WITHOUT DIFFERENTIAL 07/18 1036 Complete TYPE & SCREEN (NOT X-MATCH) 07/18 1036 Active Intake & Output 07/18 1026 Active MAGNESIUM 07/18 0920 Complete B-TYPE NATRIURETIC PEP (BNP) 07/18 0920 Complete Current Medications Sig/Rick Start time Last Medication Dose Stop Time Status Admin Non-Formulary 0 SEE ADMIN CRITERIA 07/18 1145 CAN Medication (NON FORMULARY) Laboratory Tests 07/18/17 1155: Anion Gap 8, Estimated GFR 29 L, BUN/Creatinine Ratio 28.8 H, Glucose 81, Calcium 9.2, Magnesium 2.1, Total Bilirubin 0.3, AST 16, ALT 27, Alkaline Phosphatase 81, Zlm-I-Dawludpkavy Pept 7740 H, Total Protein 4.7 L, Albumin 2.2 L, Globulin 2.5, Albumin/Globulin Ratio 0.9 L 07/18/17 0920: PT 25.9 H, INR 2.36 H, APTT 39 H, CBC w Diff NO MAN DIFF REQ, RBC 2.79 L, MCV 91.9, MCH 30.4, MCHC 33.0, RDW 16.4 H, MPV 8.0, Gran % 75.4 H, Lymphocytes % 15.5 L, Monocytes % 6.6, Eosinophils % 2.1, Basophils % 0.4, Absolute Granulocytes 5.6, Absolute Lymphocytes 1.2, Absolute Monocytes 0.5, Absolute Eosinophils 0.2, Absolute Basophils 0 Diagnostic Imaging: Viewed by Me: Radiology Read. Discussed w/RAD: Radiology Read. CXR Impression: The chest remains abnormal. However, there are no new/acute findings compared to 06/23/2017. Small pleural effusions are unchanged in size. Persistent linear and hazy opacities from atelectasis or infiltrates. Initial ED EKG: none Departure Departure Disposition: STILL A PATIENT Condition: Stable Clinical Impression Primary Impression: GI bleed Secondary Impressions: Coagulopathy Referrals: Corrina Fortune MD (PCP/Family) Departure Forms: Customer Survey General Discharge Information Observation Note Spoke With: Tunde CURTIS,Ginger Physician Advisor Notified: JACQUES CURTIS,COOKIE [facility] Patient In: Non-ED OBS Care Area Rationale for Observation: My rational for observation is as follows serial lab exam correct INR medication adjustment physical therapy ensure safety GI evaluation continuing care discharge planning. Critical Care Note Critical Care Note Critical Care Time: 30-74 min Total CPR Time (mins): 40
[2017-07-18 11:11] LABS: PT 25.9 SEC (9.4-12.5); PTT 39 SEC (25-37)
--- NOTE | 2017-07-18 12:01 | RADIOLOGY REPORT ---
EXAMINATION: XR PORTABLE CHEST CLINICAL INFORMATION: Shortness of breath COMPARISON: 06/23/2017 and 07/07/2017 TECHNIQUE: Portable frontal view of the chest was obtained. FINDINGS: Findings in the chest are not appreciably changed compared to 06/23/2017 or 07/07/2017. Persistent small bilateral pleural effusions. Persistent streaky and hazy opacities from atelectasis and/or infiltrates in mid and lower lung zones. Mild cardiomegaly. Atherosclerotic aorta. Findings compatible with chronic rotator cuff tear arthropathy of the shoulders. IMPRESSION: The chest remains abnormal. However, there are no new/acute findings compared to 06/23/2017. Small pleural effusions are unchanged in size. Persistent linear and hazy opacities from atelectasis or infiltrates.
--- NOTE | 2017-07-18 12:42 | History & Physical ---
Gladys CURTIS,[place] 07/18/17 1231: General Information and HPI MD Statement: I have seen and personally examined RYAN CHRISTENSEN and documented this H&P. The patient is a 76 year old F who presented with a patient stated chief complaint of [BRB in colostomy bag]. Source of Information: patient, Home health aide Exam Limitations: no limitations History of Present Illness: 76F PMH HTN, HFpEF, history of DVT on Xarelto, history of chronic anemia, TACO on CPAP, anxiety, CKD stage 4, HFpEF/Diastolic CHF, depression, rheumatoid arthritis, history of colonic perforation s/p colostomy who presents with c/o jane blood in her colostomy bag since yesterday. She c/o of lightheadadness and SOB x a few days and thinks she has lost almost 1 pint of blood since onset of bleeding. She endorses off and on abd pain with gassy feeling, 8/10 and can feel when the blood comes through her stoma. She endorses chills and a headache but denies fever, diarrhea, vomiting, mailaise or loss of appetite. No bleeding elsewhere. She was recently treated at [facility] in early June for acute on chronic diastolic CHF and type II TX. Her stools were guaiac positive at that time and she dropped her H&H and was transfused 2 units of PRBC. Post transfusion H&H remained stable around 8. Xarelto was discontinued during that admission due to high risk of bleeding but she is unsure if she had still been taking xarelto at home as one of her sons admisters her meds. She was trasferred to [facility] for cardiac catheterization and stent placement where she was started on aspirin, plavix and carvedilol. She takes prednisone for rheumatoid arthritis. Her Firearms Model Maker is Dr. Barillas. Her GI physician is Dr. Maier. Allergies/Medications Allergies: Coded Allergies: Penicillins (SWELLING, RASH, ITCH 07/18/17) cephalexin (From KEFLEX) (ITCHY 07/18/17) chocolate flavor (HEADACHE/MIGRAINE 07/18/17) codeine (ITCH 07/18/17) levofloxacin (From LEVAQUIN) (RASH 07/18/17) oxaprozin (From DAYPRO) (RASH 07/18/17) propoxyphene (UNKNOWN REACTION TO DARVOCET 07/18/17) Home Med list Aspirin (Aspirin*) 81 MG TAB.CHEW 1 TAB PO DAILY Heart health Butalb/Acetaminophen/Caffeine (Hinanb-Oesfbasj-Phmi 50-325-40) 50 MG-325 MG-40 MG TABLET 1 TAB PO BID PRN migrain (Reported) Calcium Carbonate/Vitamin D3 (Os-Mehdi 500+D3 Caplet) 500 MG-200 TABLET 1 TAB PO DAILY SUPPLEMENT (Reported) Carvedilol 25 MG TABLET 1 TAB PO BID HEART/BP (Reported) Clopidogrel Bisulfate (Plavix) 75 MG TABLET 1 TAB PO DAILY HEART HEALTH ( Reported) Cyclobenzaprine HCl 5 MG TABLET 1 TAB PO TIDPRN PRN muscle spasms (Reported) Docusate Sodium 100 MG CAPSULE 1 CAP PO DAILY constipation (Reported) Ergocalciferol (Vitamin D2) (Vitamin D2) 50,000 UNIT CAPSULE 1 CAP PO QWED SUPPLEMENT (Reported) Fenofibrate,Micronized (Fenofibrate) 200 MG CAPSULE 1 CAP PO DAILY TG ( Reported) Ferrous Gluconate (Unknown Strength) TABLET (Unknown Dose) PO DAILY SUPPLEMENT (Reported) Furosemide (Lasix) 20 MG TABLET 1 TAB PO DAILY DIURETIC (Reported) Gabapentin 100 MG CAPSULE 1 CAP PO Q8 Neuropathy Levothyroxine Sodium 25 MCG TABLET 1 TAB PO DAILY AC THYROID (Reported) Lisinopril 10 MG TABLET 1 TAB PO QAM BP (Reported) Metoclopramide HCl (Reglan) 10 MG TABLET 1 TAB PO TID for nausea (Reported) 30 minutes before meals and bedtime Nitroglycerin (Nitroglycerin Patch) 0.4 MG/HOUR PATCH.TD24 1 PATCH TOP DAILY Heart health Potassium Chloride (Klor-Con 10) (Unknown Strength) TABLET.ER (Unknown Dose) PO DAILY SUPPLEMENT (Reported) Prednisone 10 MG TABLET 1 TAB PO QAM STEROID (Reported) Sennosides/Docusate Sodium (Senna Plus Tablet) 8.6 MG-50 MG TABLET 1 TAB PO DAILY NEEDED PRN CONSTIPATION . Sertraline HCl 25 MG TABLET 1 TAB PO QAM MENTAL HEALTH (Reported) Tramadol HCl 50 MG TABLET 1 TAB PO Q6 PRN PAIN SCALE 7-10 (SEVERE) Compliance With Home Meds: GOOD Observation Initial Note - I have personally examined RYAN CHRISTENSEN on 07/18/17 at 0338. The disposition of RYAN CHRISTENSEN is uncertain at this time and before a determination can be made, she requires a period of observation for the following reasons [serial labs and examination, GI evaluation for GI bleed, cardiology evaluation 2/2 recent history of TX requiring stents, physical therapy to ensure safe discharge] Past History Travel History Traveled to [place] past 21 day No Medical History Neurological: migraine EENT: cataracts Cardiovascular: CHF, hypertension, hyperlipidemia Respiratory: pneumonia Gastrointestinal: diverticulitis, HEMORRHOIDS Hepatic: NONE Renal: 3+PROTEIN IN URINE [id number] Musculoskeletal: rheumatoid arthritis Psychiatric: anxiety, depression, insomnia Endocrine: vitamin D deficiency Blood Disorders: anemia Cancer(s): NONE CONSTRUCTION PROJECT COORDINATOR/Reproductive: NONE History of MRSA: No History of VRE: No History of CDIFF: No Surgical History Surgical History: colon resection, hysterectomy, laminectomy Past Family/Social History Family History Relations & Conditions if any Relation not specified for: *No pertinent family history Psychosocial History Services at Home: Servant Primary Language: Cymro ETOH Use: denies use Illicit Drug Use: denies illicit drug use Functional Ability Ambulation: cane IADLs Needs Assist: shopping, housework, food prep. Review of Systems Review of Systems Constitutional: Reports: see HPI. Cardiovascular: Denies: chest pain, palpitations, syncope. Respiratory: Reports: short of breath. Denies: cough. GI: Reports: abdominal pain. Musculoskeletal: Reports: joint pain, muscle stiffness. Skin: Reports: lesions. Exam & Diagnostic Data Last 24 Hrs of Vital Signs/I&O Vital Signs Date Time Temp Pulse Resp B/P B/P Pulse O2 O2 Flow FiO2 Mean Ox Delivery Rate 07/18 1316 96.0 62 20 158/70 95 Room Air 07/18 1159 60 20 134/63 96 Room Air 07/18 1021 98.0 60 18 139/63 96 Room Air 07/18 1018 95 Room Air Room Air Intake & Output 07/18 1600 07/18 0800 07/18 0000 Intake Total Output Total Balance Patient 149 lb Weight Weight Reported by Patient Measurement Method Physical Exam General Appearance Alert, Oriented X3, Cooperative, No Acute Distress Skin pale HEENT Mucous Membr. moist/pink Cardiovascular Regular Rate, Normal S1, Normal S2 Lungs Clear to Auscultation, Normal Air Movement Abdomen mild generalized tenderness, Jane dark red blood mixed with stool in colostomy bag, hyperactive bowel sounds Extremities 1+ pedal edema bilaterally, 4x6cm tense, tender swelling on Rt anterior santana. No differential warmth or surrounding erythema Last 24 Hrs of Labs/Rubin: Laboratory Tests 07/18/17 1155: Anion Gap 8, Estimated GFR 29 L, BUN/Creatinine Ratio 28.8 H, Glucose 81, Calcium 9.2, Magnesium 2.1, Total Bilirubin 0.3, AST 16, ALT 27, Alkaline Phosphatase 81, Enq-O-Sywbqrgyycb Pept 7740 H, Total Protein 4.7 L, Albumin 2.2 L, Globulin 2.5, Albumin/Globulin Ratio 0.9 L 07/18/17 0920: PT 25.9 H, INR 2.36 H, APTT 39 H, CBC w Diff NO MAN DIFF REQ, RBC 2.79 L, MCV 91.9, MCH 30.4, MCHC 33.0, RDW 16.4 H, MPV 8.0, Gran % 75.4 H, Lymphocytes % 15.5 L, Monocytes % 6.6, Eosinophils % 2.1, Basophils % 0.4, Absolute Granulocytes 5.6, Absolute Lymphocytes 1.2, Absolute Monocytes 0.5, Absolute Eosinophils 0.2, Absolute Basophils 0 Diagnostic Data CXR Results The chest remains abnormal. However, there are no new/acute findings compared to 06/23/2017. Small pleural effusions are unchanged in size. Persistent linear and hazy opacities from atelectasis or infiltrates. Assessment/Plan Assessment: 76F PMH HTN, history of DVT on Xarelto, history of chronic anemia, TACO on CPAP, anxiety, CKD stage 4, HFpEF/Diastolic CHF, depression, rheumatoid arthritis, history of colonic perforation s/p colostomy who presents with jane blood in her colostomy bag since yesterday. Assessment 1. Acute lower GI bleed via colostomy 2. Acute on chronic anemia 3. HFpEF/Diastolic CHF 4. CKD stage 4 5. Recent Type II TX s/p cardiac cath and stent placement (? type of stent placed) on aspirin/plavix 6. Hx of DVT-Xarelto on hold due to GI bleed in past admission In the ER, patient received vitamin K, prothrombin inhibitor concentrate and FFP Plan -Observe general medicine floor -Urgent GI consult called -Keep n.p.o. for now -Continue to hold xarelto. Would not resume xarelto in this patient after resolution of GI bleed because it is CI in patients with severe renal impairment /failure (GFR<30) as in this patient. Eliquis may be an better option. -Hold plavix and aspirin for now -Check CBC Q8hrs; transfuse if Hb 8 due to cardiac hx -Type and screen -Check EKG/trop -Cardiology consult for direction on what to do with plavix/asprin given recent stent placement in early June. It is unclear if patient has a drug eluting or bare metal stent as the latter would be preferrable in a pt with hx of GI bleed because it requires a shorter duration of anticoagulation. -Keep 2 large bore IVs at all times -Vitals Q shift -Low threshold for ICU transfer if pt becomes hemodynamycally unstable -Continue her other impt home medications -Avoid NSAIDS -Alps for DVT -FC As Ranked By This Provider Problem List: 1. GI bleed 2. Acute blood loss anemia Core Measures/Misc (12/08) Acute Coronary Syndrome ACS Diagnosis: No Congestive Heart Failure Congestive Heart Failure Diagnosis No Cerebrovascular Accident CVA/TIA Diagnosis: No VTE (View Protocol) VTE Risk Factors Age>40 No Mechanical VTE Prophylaxis d/t N/A MechProphylax Ordered No VTE Pharm Prophylaxis d/t Bleeding (Active) Sepsis (View protocol) Sepsis Present: No Resident Review Statement Resident Statement: examined this patient Other Findings: See HPI James Cortes MD 07/19/17 0057: Attending MD Review Statement Attending Statement Attending MD Statement: examined this patient, discuss w/resident/PA/LOG MARKER, agreed w/resident/PA/LOG MARKER, discussed with family, reviewed EMR data (avail), discussed with nursing, discussed with case mgmt Attending Assessment/Plan: The patient is a 76 yo female withh/o HTN, CHF (preserved EF), h/o DVT on Xarelto, TACO< chronic anemia, CKD4, s/p prior colostomy who presented with bright red blood per stoma in LLQ. She denied any abdominal discomfort. Has had prior bleeding and Xarelto had been discontinued.Her stool was heme positive at that time. She had received 2 units of blood. Physical Exam: VS: T 98.0, P 60, R 18, BP 139/63, PO 96% RA HEENT: yehuda- slightly dry mucosa Neck: no JVD/bruits Chest: clear Cor: RRR nl S1, S2 w/o murm Abd: BS+, soft, NT- colostomy with maroon/red blood and stoma protruding Ext: 1+ bilateral edema w/o tenderness, pulses 1+ Neuro: alert & oriented x 3, non-focal exam Impression/Plan: #Acute Lower GI Bleeding- ? diverticular. Was to have been off Xarelto since last admission, however son will check to see if he was still giving it to her. Her INR is elevated. ?Diverticular. Plan: Admit to general medicine- close observation of patient this evening. GI Consult - Dr. Martin. ?Colonoscopy in morning. 2 large bore IV's if possible. Type and Screen. Vitamin K, prothrombin inhibitor concentrate, FFP given in ED. #Acute on Chronic Blood Loss Anemia- only small amount of blood in bowl. Plan: Will follow serial H/H as above. Limited colonoscopy tomorrol. #Acute on Chronic CHF- doing well Plan: Will keep following H/O's, daily weights, ec. #Hypothyroid- on Levothyroxine. Plan: Coninte Levothorine. #CAD- on Plavix/ASA- having acute bleed. Recent type II TX, Stent was placed 3 weeks ago. Plan: Hold ASA/Plavix with bleed (restart as able). Cardiology to follow. #CKD4- Creatinine as above. Plan: Will follow.
[2017-07-18 13:50] VITALS: BP 110/52
[2017-07-18 16:43] LABS: ABSOLUTE BASOPHIL COUNT 0 /CUMM (0.0-0.2); ABSOLUTE EOSINOPHIL COUNT 0.1 /CUMM (0.0-0.7); ABSOLUTE GRANULOCYTE CT 6.6 /CUMM (1.4-6.5); ABSOLUTE LYMPH COUNT 0.8 /CUMM (1.2-3.4); ABSOLUTE MONOCYTE COUNT 0.2 /CUMM (0.10-0.60); BASOPHIL % 0.4 % (0.0-2.0); EOSINOPHIL % 0.7 % (0-5); GRANULOCYTE % 86.4 % (42.2-75.2); HEMATOCRIT 25.3 % (37-47); MEAN CORPUSCULAR HGB 30.3 PG (27.0-31.0); MEAN CORPUSCULAR HGB CONC 32.7 G/DL (33.0-37.0); MEAN CORPUSCULAR VOLUME 92.5 FL (81.0-99.0); MEAN PLATELET VOLUME 8.1 FL (7.4-10.4); PLATELET COUNT 219 /CUMM (130-400); RBC DISTRIBUTION WIDTH 17.1 % (11.5-14.5); RED BLOOD CELL CT 2.73 /CUMM (4.20-5.40); WHITE BLOOD CELL COUNT 7.6 /CUMM (4.8-10.8)
--- NOTE | 2017-07-18 16:59 | Cons- Gastroenterology ---
General Information and HPI Consulting Request Date of Consult: 07/18/17 Requested By: Ginger Griffiths MD Reason for Consult: 1. Hematochezia 2. Acute Blood Loss Anemia 3. Chronic Use of Anti-Platelet Agent 4. History of Small Bowel AVM Source of Information: patient, old records Exam Limitations: no limitations History of Present Illness: 76F PMH HTN, HFpEF, history of DVT on Xarelto, history of chronic anemia, TACO on CPAP, anxiety, CKD stage 4, HFpEF/Diastolic CHF, depression, rheumatoid arthritis, history of colonic perforation s/p colostomy who presents with c/o jane blood in her colostomy bag since yesterday. Ms. oCrona complains of lightheadadness and SOB x a few days and thinks she has lost almost 1 pint of blood since the onset of bleeding. I have reviewed her old record. She was admitted to [facility] in early June 2017 with an acute drop in H/H at which time she underwent push enteroscopy which was unrevealing with respect to a source of GI blood loss. It was recommended that she have an outpatient video capsule endoscopy. Prior to her discharge from [facility] she was taken off Xarelto which she had been on for over 2 years for DVT. After her discharge, approximately 1.5 weeks ago she underwent cardiac catheterization and stent placement at [facility]. She was started on aspirin as well as Plavix after that. She was recently admitted to [facility] on 07/07 with volume overload. Associated with this she complained of abdominal pain, increased ostomy output associated with diffuse abdominal pain. Her stools which were not grossly bloody were Hemoccult positive. After diuresis, for abdominal pain and loose stools resolved. She reports that at the onset of bleeding from her ostomy she had abdominal pain. She reports that the abdominal pain was at a level of 6 out of 10 and was constant. She has had continued pain and bleeding since admission. She reports that the pain is not relieved by stooling. She is had no nausea, vomiting, fever or shaking chills. She reports that the pain after cardiac catheterization, approximately 2 weeks ago she was similar that she is experiencing now. Allergies/Medications Allergies: Coded Allergies: Penicillins (SWELLING, RASH, ITCH 07/18/17) cephalexin (From KEFLEX) (ITCHY 07/18/17) chocolate flavor (HEADACHE/MIGRAINE 07/18/17) codeine (ITCH 07/18/17) levofloxacin (From LEVAQUIN) (RASH 07/18/17) oxaprozin (From DAYPRO) (RASH 07/18/17) propoxyphene (UNKNOWN REACTION TO DARVOCET 07/18/17) Home Med List: Aspirin (Aspirin*) 81 MG TAB.CHEW 1 TAB PO DAILY Heart health Butalb/Acetaminophen/Caffeine (Szuwam-Xjuqnrwl-Avpa 50-325-40) 50 MG-325 MG-40 MG TABLET 1 TAB PO BID PRN migrain (Reported) Calcium Carbonate/Vitamin D3 (Os-Mehdi 500+D3 Caplet) 500 MG-200 TABLET 1 TAB PO DAILY SUPPLEMENT (Reported) Carvedilol 25 MG TABLET 1 TAB PO BID HEART/BP (Reported) Clopidogrel Bisulfate (Plavix) 75 MG TABLET 1 TAB PO DAILY HEART HEALTH ( Reported) Cyclobenzaprine HCl 5 MG TABLET 1 TAB PO TIDPRN PRN muscle spasms (Reported) Docusate Sodium 100 MG CAPSULE 1 CAP PO DAILY constipation (Reported) Ergocalciferol (Vitamin D2) (Vitamin D2) 50,000 UNIT CAPSULE 1 CAP PO QWED SUPPLEMENT (Reported) Fenofibrate,Micronized (Fenofibrate) 200 MG CAPSULE 1 CAP PO DAILY TG ( Reported) Ferrous Gluconate (Unknown Strength) TABLET (Unknown Dose) PO DAILY SUPPLEMENT (Reported) Furosemide (Lasix) 20 MG TABLET 1 TAB PO DAILY DIURETIC (Reported) Gabapentin 100 MG CAPSULE 1 CAP PO Q8 Neuropathy Levothyroxine Sodium 25 MCG TABLET 1 TAB PO DAILY AC THYROID (Reported) Lisinopril 10 MG TABLET 1 TAB PO QAM BP (Reported) Metoclopramide HCl (Reglan) 10 MG TABLET 1 TAB PO TID for nausea (Reported) 30 minutes before meals and bedtime Nitroglycerin (Nitroglycerin Patch) 0.4 MG/HOUR PATCH.TD24 1 PATCH TOP DAILY Heart health Potassium Chloride (Klor-Con 10) (Unknown Strength) TABLET.ER (Unknown Dose) PO DAILY SUPPLEMENT (Reported) Prednisone 10 MG TABLET 1 TAB PO QAM STEROID (Reported) Sennosides/Docusate Sodium (Senna Plus Tablet) 8.6 MG-50 MG TABLET 1 TAB PO DAILY NEEDED PRN CONSTIPATION . Sertraline HCl 25 MG TABLET 1 TAB PO QAM MENTAL HEALTH (Reported) Tramadol HCl 50 MG TABLET 1 TAB PO Q6 PRN PAIN SCALE 7-10 (SEVERE) Current Medications: Current Medications Sig/Rick Start time Last Medication Dose Route Stop Time Status Admin Anti-Inhibitor 1,500 UNIT ONCE ONE 07/18 1215 DC 07/18 Coagulant Complex IV 07/18 1224 1239 N/A 1 UNIT Carvedilol 25 MG BID 07/18 2100 AC PO Fenofibrate 145 MG DAILY 07/19 0900 AC PO Ferrous Gluconate 325 MG TID 07/18 2100 AC PO Gabapentin 100 MG Q8 07/18 2200 AC PO Levothyroxine Sodium 0.025 MG DAILY AC 07/19 0700 AC PO Lisinopril 10 MG QAM 07/19 09 AC PO Non-Formulary 0 SEE ADMIN CRITERIA 07/18 1145 CAN Medication ANY Pantoprazole Sodium 40 MG BID 07/18 1351 AC IV Phytonadione 0 .STK-MED ONE 07/18 1200 DC .ROUTE Phytonadione 10 MG ONCE ONE 07/18 1145 DC 07/18 IM 07/18 1146 1157 Sertraline HCl 25 MG QAM 07/19 0900 AC PO Sodium Chloride 1,000 ML .Q10H 07/18 1345 AC IV Past History Travel History Traveled to [place] past 21 day No Medical History Blood Transfusion Hx: Yes Neurological: migraine EENT: cataracts Cardiovascular: CHF, hypertension, hyperlipidemia Respiratory: pneumonia Gastrointestinal: diverticulitis, HEMORRHOIDS Hepatic: NONE Renal: 3+PROTEIN IN URINE [id number] Musculoskeletal: rheumatoid arthritis Psychiatric: anxiety, depression, insomnia Endocrine: vitamin D deficiency Blood Disorders: anemia Cancer(s): NONE GUEST SERVICE MANAGER/Reproductive: NONE Surgical History Surgical History: colon resection, hysterectomy, laminectomy Family History Relations & Conditions If Any: Relation not specified for: *No pertinent family history Psychosocial History Services at Home: Servant Primary Language: Montserratian Smoking Status: Former Smoker ETOH Use: denies use Illicit Drug Use: denies illicit drug use Functional Ability Ambulation: cane IADLs Needs Assist: shopping, housework, food prep. Exam & Diagnostic Data Vital Signs and I&O Vital Signs Date Time Temp Pulse Resp B/P B/P Pulse O2 O2 Flow FiO2 Mean Ox Delivery Rate 07/18 1350 98.1 64 18 110/52 94 Room Air 07/18 1316 96.0 62 20 158/70 95 Room Air 07/18 1159 60 20 134/63 96 Room Air 07/18 1021 98.0 60 18 139/63 96 Room Air 07/18 1018 95 Room Air Room Air Intake & Output 07/18 0400 07/17 0400 07/16 0400 Intake Total 480 Output Total 600 Balance -120 Intake, Oral 480 Output, Stool 200 Output, Urine 400 Patient 146 lb Weight Weight Reported by Patient Measurement Method Physical Exam General Appearance: moderate distress Head: atraumatic, normal appearance Eyes: Bilateral: normal appearance. Ears, Nose, Throat: normal ENT inspection, hearing grossly normal Neck: normal inspection, supple, full range of motion Respiratory: lungs clear Cardiovascular: regular rate/rhythm Gastrointestinal: soft, no organomegaly, Increased, active bowel sounds. There is mild diffuse tenderness without rebound or guarding Rectal: Maroon stool in osotomy Extremities: ecchymoses upper extremities Neurologic/Psych: oriented x 3, normal mood/affect Cranial Nerves: II-XII grossly intact Skin: ecchymosis Results Pertinent Lab Results: Laboratory Tests 07/18 07/18 1532 1155 Chemistry Sodium (137 - 145 mmol/L) 142 Potassium (3.5 - 5.1 mmol/L) 4.7 Chloride (98 - 107 mmol/L) 109 H Carbon Dioxide (22 - 30 mmol/L) 25 Anion Gap (5 - 16) 8 BUN (7 - 17 mg/dL) 49 H Creatinine (0.5 - 1.0 mg/dL) 1.7 H Estimated GFR (>60 ml/min) 29 L BUN/Creatinine Ratio (7 - 25 %) 28.8 H Glucose (65 - 99 mg/dL) 81 Calcium (8.4 - 10.2 mg/dL) 9.2 Magnesium (1.6 - 2.3 mg/dL) 2.1 Total Bilirubin (0.2 - 1.3 mg/dL) 0.3 AST (14 - 36 U/L) 16 ALT (9 - 52 U/L) 27 Alkaline Phosphatase (<127 U/L) 81 Troponin I (< 0.11 ng/ml) 0.43 *H Oja-F-Zeudhbhpdnl Pept (<125 pg/mL) 7740 H Total Protein (6.3 - 8.2 g/dL) 4.7 L Albumin (3.5 - 5.0 g/dL) 2.2 L Globulin (1.9 - 4.2 gm/dL) 2.5 Albumin/Globulin Ratio (1.1 - 2.2 %) 0.9 L Hematology CBC w Diff NO MAN DIFF REQ WBC (4.8 - 10.8 /CUMM) 7.6 RBC (4.20 - 5.40 /CUMM) 2.73 L Hgb (12.0 - 16.0 G/DL) 8.3 L Hct (37 - 47 %) 25.3 L MCV (81.0 - 99.0 FL) 92.5 MCH (27.0 - 31.0 PG) 30.3 MCHC (33.0 - 37.0 G/DL) 32.7 L RDW (11.5 - 14.5 %) 17.1 H Plt Count (130 - 400 /CUMM) 219 MPV (7.4 - 10.4 FL) 8.1 Gran % (42.2 - 75.2 %) 86.4 H Lymphocytes % (20.5 - 51.1 %) 10.2 L Monocytes % (1.7 - 9.3 %) 2.3 Eosinophils % (0 - 5 %) 0.7 Basophils % (0.0 - 2.0 %) 0.4 Absolute Granulocytes (1.4 - 6.5 /CUMM) 6.6 H Absolute Lymphocytes (1.2 - 3.4 /CUMM) 0.8 L Absolute Monocytes (0.10 - 0.60 /CUMM) 0.2 Absolute Eosinophils (0.0 - 0.7 /CUMM) 0.1 Absolute Basophils (0.0 - 0.2 /CUMM) 0 07/18 0920 Coagulation PT (9.4 - 12.5 SEC) 25.9 H INR (0.90 - 1.19) 2.36 H APTT (25 - 37 SEC) 39 H Hematology CBC w Diff NO MAN DIFF REQ WBC (4.8 - 10.8 /CUMM) 7.4 RBC (4.20 - 5.40 /CUMM) 2.79 L Hgb (12.0 - 16.0 G/DL) 8.5 L Hct (37 - 47 %) 25.6 L MCV (81.0 - 99.0 FL) 91.9 MCH (27.0 - 31.0 PG) 30.4 MCHC (33.0 - 37.0 G/DL) 33.0 RDW (11.5 - 14.5 %) 16.4 H Plt Count (130 - 400 /CUMM) 228 MPV (7.4 - 10.4 FL) 8.0 Gran % (42.2 - 75.2 %) 75.4 H Lymphocytes % (20.5 - 51.1 %) 15.5 L Monocytes % (1.7 - 9.3 %) 6.6 Eosinophils % (0 - 5 %) 2.1 Basophils % (0.0 - 2.0 %) 0.4 Absolute Granulocytes (1.4 - 6.5 /CUMM) 5.6 Absolute Lymphocytes (1.2 - 3.4 /CUMM) 1.2 Absolute Monocytes (0.10 - 0.60 /CUMM) 0.5 Absolute Eosinophils (0.0 - 0.7 /CUMM) 0.2 Absolute Basophils (0.0 - 0.2 /CUMM) 0 Assessment/Plan Assessment/Recommendations: ASSESSMENT: 1. Hematochezia through Ostomy 2. Acute Blood Loss Anemia 3. Chronic Use of Anti-Platelet Agent 4. Recent Placement of Coronary Artery Stent 5. S/P Placement of an Ostomy for Colonic Perforation 6. Abdominal Pain Patient hasn't not had an endoscopic exam through her colostomy since 2014. Patient is having maroon stools suggestive of lower GI bleeding. Also in the setting of a recent cardiac catheterization and pain and change in bowel habit associated with an episode of congestive heart failure, I am concerned about possible ischemic colitis. I am unable to get a CT scan given her poor renal function. It is unlikely that a noncontrast CT scan will be revealing. Patient had a CT scan in May of this year which showed an isolated gallstone in the gallbladder without evidence of cholecystitis. However patient's abdominal pain is not suggestive of biliary colic. I discussed this case with the medical housecleaner floor dish up person chava and of acid following orders be written. I have also discussed the following treatment plan with the patient and her son. All questions have been answered. RECOMMENDATIONS: 1. Split dose colonic preparation with GoLYTELY tonight 2. Colonoscopy through ostomy tomorrow. I do not believe that bleeding at this time represents upper GI bleeding. I'm concerned about possible ischemic colitis I've explained to the patient and her son that procedure can be terminated the first signs of colonic ischemia 3. If colonoscopy through ostomy is unrevealing can consider outpatient workup 4. Serial H&H every 4-6 hours 5. Surgical consultation with Dr. Veras 6. Nephrology consultation given patient's chronic kidney disease, stage IV 7. Will continue anticoagulation. Given recent stent placement will do procedures with patient fully anticoagulated. If there is something that needs therapeutic intervention will discuss with cardiology about how best to proceed. 8. Transfuse to keep Hgb >8.0 Consult Acknowledgment - Thank you for your consult request.
--- NOTE | 2017-07-18 18:43 | ULTRASOUND REPORT ---
EXAMINATION: US SUPERFICIAL IMAGING, EXTREMITY CLINICAL INFORMATION: Pain and swelling COMPARISON: None TECHNIQUE: Targeted ultrasound color Doppler FINDINGS: Notable subcutaneous infiltration and edema with a complex fluid collection measuring 3 x 3.8 x 0.9 cm with surrounding hyperemia. There is some vascularity within the septations. No other focal lesion. IMPRESSION: Complex fluid collection as above subcutaneously at the site of patient's symptoms within the right lower extremity. Appearance is nonspecific. This could represent infection or potentially a necrotic lesion including hematoma. Correlate clinically. MRI may be obtained as clinically warranted.
--- NOTE | 2017-07-18 19:40 | Cons- Cardiology ---
General Information and HPI Consulting Request Date of Consult: 07/18/17 Requested By: James Cortes MD Reason for Consult: Gastrointestinal bleeding. Source of Information: patient, old records Exam Limitations: poor historian History of Present Illness: History of Present Illness: Mrs. Rama Corona is a 76--year-old female with a history of anxiety/ depression, rheumatoid arthritis on chronic steroid therapy, deep venous thrombosis previously on Eliquis, obesity, obstructive sleep apnea, hypertension , left ventricular hypertrophy, aortic regurgitation, diastolic dysfunction with acute on chronic diastolic heart failure, colonic perforation following colonoscopy s/p Constance procedure September 2014 complicated by type II AR, acute kidney injury, bacteremia, etc. and chronic anemia with recent hospitalization for symptomatic anemia that improved with transfusion of PRBCs complicated by acute kidney injury on chronic kidney disease, etc. who improved with standard measures, but who was subsequent transferred for cardiac catheterization at [facility] that revealed a 70% LAD stenosis that was stented is to 0% residual stenosis and ELSY-3 flow who was again admitted (07/07-07/11/2017) with worsening chronic weakness, shortness of breath and a new bilateral lower extremity edema consistent with HFpEF and a modest troponin I elevation likely on the basis of a type II AR and not an ACS who improved with standard therapy, but who now returns with evidence of GI bleeding on dual antiplatelet therapy for her recent coronary stent. She has a colostomy (vide infra) and is on chronic iron therapy with chronically dark colostomy bag contents, but noted blood in her colostomy bag since last night. Additionally, complaining of worsening shortness of breath. She was hospitalized here (10/10-10/28/2014) for colonic perforation following a colonoscopy preformed for GI symptoms s/p Constance procedure with subsequent modest bump in troponin felt secondary to type II myocardial infarction, volume overload, acute kidney injury, and growth of Escherichia coli in her body fluid who was again admitted (-11/17/2014) after presenting to the ED with constant periumbilical 8/10 ache with some associated shortness of breath with room air O2 saturation at ECF 88% following 2 days of decreased by mouth intake secondary to poor appetite and nausea. Also reportedly had a fever, nausea and vomited 3, as well as, some loose stool in her colostomy bag. In the emergency department she was afebrile, tachypneic, and did have an elevated WBC count with left shift. There were no symptoms to suggest a urinary tract infection. She had a low probability V/Q scan and had been recommended thoracentesis for bilateral pleural effusions, but opted to be transferred to [facility]. There was no evidence of an acute intra-abdominal process. Thoracentesis was reportedly performed at [facility]. She was admitted to [facility] for a left lower extremity deep venous thrombosis in July 2016 and started on anticoagulation with a factor X inhibitor. She was also reportedly admitted to [facility] for pneumonia and pleural effusions for which she underwent thoracentesis. Allergies/Medications Allergies: Coded Allergies: Penicillins (SWELLING, RASH, ITCH 07/18/17) cephalexin (From KEFLEX) (ITCHY 07/18/17) chocolate flavor (HEADACHE/MIGRAINE 07/18/17) codeine (ITCH 07/18/17) levofloxacin (From LEVAQUIN) (RASH 07/18/17) oxaprozin (From DAYPRO) (RASH 07/18/17) propoxyphene (UNKNOWN REACTION TO DARVOCET 07/18/17) Home Med List: Aspirin (Aspirin*) 81 MG TAB.CHEW 1 TAB PO DAILY Heart health Butalb/Acetaminophen/Caffeine (Qicfvc-Uuwbnkpa-Jyyr 50-325-40) 50 MG-325 MG-40 MG TABLET 1 TAB PO BID PRN migrain (Reported) Calcium Carbonate/Vitamin D3 (Os-Mehdi 500+D3 Caplet) 500 MG-200 TABLET 1 TAB PO DAILY SUPPLEMENT (Reported) Carvedilol 25 MG TABLET 1 TAB PO BID HEART/BP (Reported) Clopidogrel Bisulfate (Plavix) 75 MG TABLET 1 TAB PO DAILY HEART HEALTH ( Reported) Cyclobenzaprine HCl 5 MG TABLET 1 TAB PO TIDPRN PRN muscle spasms (Reported) Docusate Sodium 100 MG CAPSULE 1 CAP PO DAILY constipation (Reported) Ergocalciferol (Vitamin D2) (Vitamin D2) 50,000 UNIT CAPSULE 1 CAP PO QWED SUPPLEMENT (Reported) Fenofibrate,Micronized (Fenofibrate) 200 MG CAPSULE 1 CAP PO DAILY TG ( Reported) Ferrous Gluconate (Unknown Strength) TABLET (Unknown Dose) PO DAILY SUPPLEMENT (Reported) Furosemide (Lasix) 20 MG TABLET 1 TAB PO DAILY DIURETIC (Reported) Gabapentin 100 MG CAPSULE 1 CAP PO Q8 Neuropathy Levothyroxine Sodium 25 MCG TABLET 1 TAB PO DAILY AC THYROID (Reported) Lisinopril 10 MG TABLET 1 TAB PO QAM BP (Reported) Metoclopramide HCl (Reglan) 10 MG TABLET 1 TAB PO TID for nausea (Reported) 30 minutes before meals and bedtime Nitroglycerin (Nitroglycerin Patch) 0.4 MG/HOUR PATCH.TD24 1 PATCH TOP DAILY Heart health Potassium Chloride (Klor-Con 10) (Unknown Strength) TABLET.ER (Unknown Dose) PO DAILY SUPPLEMENT (Reported) Prednisone 10 MG TABLET 1 TAB PO QAM STEROID (Reported) Sennosides/Docusate Sodium (Senna Plus Tablet) 8.6 MG-50 MG TABLET 1 TAB PO DAILY NEEDED PRN CONSTIPATION . Sertraline HCl 25 MG TABLET 1 TAB PO QAM MENTAL HEALTH (Reported) Tramadol HCl 50 MG TABLET 1 TAB PO Q6 PRN PAIN SCALE 7-10 (SEVERE) Review of Systems Review of Systems: A 14 point system review was obtained and was noncontributory, other than as above. Past History Travel History Traveled to [place] past 21 day No Medical History Blood Transfusion Hx: Yes Neurological: migraine EENT: cataracts Cardiovascular: CHF, hypertension, hyperlipidemia Respiratory: pneumonia Gastrointestinal: diverticulitis, HEMORRHOIDS Hepatic: NONE Renal: 3+PROTEIN IN URINE [id number] Musculoskeletal: rheumatoid arthritis Psychiatric: anxiety, depression, insomnia Endocrine: vitamin D deficiency Blood Disorders: anemia Cancer(s): NONE EXECUTIVE COMMUNITY PLANNING/Reproductive: NONE Surgical History Surgical History: colon resection, hysterectomy, laminectomy Family History Relations & Conditions If Any: Relation not specified for: *No pertinent family history Psychosocial History Services at Home: [employer] Primary Language: Yi Smoking Status: Former Smoker ETOH Use: denies use Illicit Drug Use: denies illicit drug use Functional Ability Ambulation: cane IADLs Needs Assist: shopping, housework, food prep. Exam & Diagnostic Data Vital Signs and I&O Vital Signs Date Time Temp Pulse Resp B/P B/P Pulse O2 O2 Flow FiO2 Mean Ox Delivery Rate 07/18 1350 98.1 64 18 110/52 94 Room Air 07/18 1316 96.0 62 20 158/70 95 Room Air 07/18 1159 60 20 134/63 96 Room Air 07/18 1021 98.0 60 18 139/63 96 Room Air 07/18 1018 95 Room Air Room Air Intake & Output 07/18 1600 07/18 0800 07/18 0000 07/17 1600 07/17 0800 07/17 0000 Intake Total 480 Output Total 600 Balance -120 Intake, Oral 480 Output, Stool 200 Output, Urine 400 Patient 146 lb Weight Weight Reported by Patient Measurement Method Physical Exam: Well-developed, obese elderly female in no acute distress who appears pale and who has nasal oxygen in place. Vital signs: See above. HEENT: Normocephalic, atraumatic, EOMI, moist mucous membranes. Neck: No JVD, no bruits. Lungs: Decreased breath sounds at the bases. Heart: S1, S2 with grade 1/6 systolic murmur. No gallop or rub. Abdomen: Soft, nontender, positive bowel sounds. Extremities: Trace bilateral lower extremity edema. Labs/Rubin Results: Laboratory Tests 07/18 07/18 07/18 1759 1532 1155 Chemistry Sodium (137 - 145 mmol/L) 142 Potassium (3.5 - 5.1 mmol/L) 4.7 Chloride (98 - 107 mmol/L) 109 H Carbon Dioxide (22 - 30 mmol/L) 25 Anion Gap (5 - 16) 8 BUN (7 - 17 mg/dL) 49 H Creatinine (0.5 - 1.0 mg/dL) 1.7 H Estimated GFR (>60 ml/min) 29 L BUN/Creatinine Ratio (7 - 25 %) 28.8 H Glucose (65 - 99 mg/dL) 81 Calcium (8.4 - 10.2 mg/dL) 9.2 Magnesium (1.6 - 2.3 mg/dL) 2.1 Total Bilirubin (0.2 - 1.3 mg/dL) 0.3 AST (14 - 36 U/L) 16 ALT (9 - 52 U/L) 27 Alkaline Phosphatase (<127 U/L) 81 Troponin I (< 0.11 ng/ml) 0.40 *H 0.43 *H Xss-S-Declimmahvb Pept (<125 pg/mL) 7740 H Total Protein (6.3 - 8.2 g/dL) 4.7 L Albumin (3.5 - 5.0 g/dL) 2.2 L Globulin (1.9 - 4.2 gm/dL) 2.5 Albumin/Globulin Ratio (1.1 - 2.2 %) 0.9 L Hematology CBC w Diff NO MAN DIFF REQ WBC (4.8 - 10.8 /CUMM) 7.6 RBC (4.20 - 5.40 /CUMM) 2.73 L Hgb (12.0 - 16.0 G/DL) 8.3 L Hct (37 - 47 %) 25.3 L MCV (81.0 - 99.0 FL) 92.5 MCH (27.0 - 31.0 PG) 30.3 MCHC (33.0 - 37.0 G/DL) 32.7 L RDW (11.5 - 14.5 %) 17.1 H Plt Count (130 - 400 /CUMM) 219 MPV (7.4 - 10.4 FL) 8.1 Gran % (42.2 - 75.2 %) 86.4 H Lymphocytes % (20.5 - 51.1 %) 10.2 L Monocytes % (1.7 - 9.3 %) 2.3 Eosinophils % (0 - 5 %) 0.7 Basophils % (0.0 - 2.0 %) 0.4 Absolute Granulocytes (1.4 - 6.5 /CUMM) 6.6 H Absolute Lymphocytes (1.2 - 3.4 /CUMM) 0.8 L Absolute Monocytes (0.10 - 0.60 /CUMM) 0.2 Absolute Eosinophils (0.0 - 0.7 /CUMM) 0.1 Absolute Basophils (0.0 - 0.2 /CUMM) 0 / 0920 Coagulation PT (9.4 - 12.5 SEC) 25.9 H INR (0.90 - 1.19) 2.36 H APTT (25 - 37 SEC) 39 H Hematology CBC w Diff NO MAN DIFF REQ WBC (4.8 - 10.8 /CUMM) 7.4 RBC (4.20 - 5.40 /CUMM) 2.79 L Hgb (12.0 - 16.0 G/DL) 8.5 L Hct (37 - 47 %) 25.6 L MCV (81.0 - 99.0 FL) 91.9 MCH (27.0 - 31.0 PG) 30.4 MCHC (33.0 - 37.0 G/DL) 33.0 RDW (11.5 - 14.5 %) 16.4 H Plt Count (130 - 400 /CUMM) 228 MPV (7.4 - 10.4 FL) 8.0 Gran % (42.2 - 75.2 %) 75.4 H Lymphocytes % (20.5 - 51.1 %) 15.5 L Monocytes % (1.7 - 9.3 %) 6.6 Eosinophils % (0 - 5 %) 2.1 Basophils % (0.0 - 2.0 %) 0.4 Absolute Granulocytes (1.4 - 6.5 /CUMM) 5.6 Absolute Lymphocytes (1.2 - 3.4 /CUMM) 1.2 Absolute Monocytes (0.10 - 0.60 /CUMM) 0.5 Absolute Eosinophils (0.0 - 0.7 /CUMM) 0.2 Absolute Basophils (0.0 - 0.2 /CUMM) 0 Diagnostic Data EKG Results 07/18/2017: Sinus rhythm and nondiagnostic T-wave abnormalities in the lateral/high lateral leads. CXR Results 07/18/2017: The chest remains abnormal. However, there are no new/acute findings compared to 06/23/2017. Small pleural effusions are unchanged in size. Persistent linear and hazy opacities from atelectasis or infiltrates. Other Results Right lower extremity ultrasound 07/18/2017: Complex fluid collection as above subcutaneously at the site of patient's symptoms within the right lower extremity. Appearance is nonspecific. This could represent infection or potentially a necrotic lesion including hematoma. Correlate clinically. MRI may be obtained as clinically warranted. Assessment/Plan Assessment/Plan [id number] w/ hx of anxiety/depression, RA on chronic steroid therapy, DVT previously on Eliquis, obesity, TACO, HTN, LVH, AR, diastolic dysfunction with acute on chronic diastolic heart failure (HFpEF), colonic perforation following colonoscopy s/p Constance procedure September 2014 complicated by type II AR, MARVEL, bacteremia, etc. and chronic anemia w/ recent hospitalization for symptomatic anemia that improved with transfusion of PRBCs complicated by MARVEL on CKD, etc. who improved w/ standard measures, but who was subsequent transferred for cardiac cath at [facility] that revealed a 70% LAD stenosis that was stented is to 0% residual stenosis and ELSY-3 flow who was again admitted (07/07-2017) with worsening chronic weakness, SOB, new bilateral lower extremity edema c/w HFpEF and a modest troponin I elevation likely on the basis of a type II AR who improved with standard therapy, but who now returns with evidence of GI bleeding on dual antiplatelet therapy for her recent coronary stent. She has a colostomy and is on chronic iron therapy with chronically dark colostomy bag contents, but noted blood in her colostomy bag since last night with associated abdominal pain. Additionally, complaining of worsening shortness of breath without associated chest discomfort and a painful right lower extremely. Agree with gastroenterology's concern regarding ischemic colitis, given her known vascular disease. Recommendations: * Follow-up troponins and repeat ECG in a.m. * With recent success stent deployment should be stable for planned colonoscopy through ostomy. * Continue outpatient diuretic regimen. * Frequent checks of H/H. * Given known CAD, maintain hemoglobin above 8.0 g/dl. * Hold antiplatelet therapy until GI feels it is safe to resume. * DVT prophylaxis. Consult Acknowledgment - Thank you for your consult request.
[2017-07-18 21:47] VITALS: BP 142/80
[2017-07-18 23:08] VITALS: BP 136/56
--- NOTE | 2017-07-19 01:02 | Admission Certification ---
Admission Certification Certification Statement - As attending physician, I certify that at the time of - admission, based on clinical presentation, severity of - symptoms, need for further diagnostic testing and - therapeutic interventions, and risk of adverse outcomes - without in-hospital treatment, in my clinical assessment, - this patient requires an acute hospital stay for a minimum - of two nights or longer. I have also considered psychsocial - factors such as support system, advanced age, financial - issues, cognitive issues, and failed out-patient treatments, - past re-admission history, safety of patient, and lack of - compliance as applicable. Specific rationale supporting this admission is: The patient presents with acute lower GI bleeding. Following closely watching. Need serial H/H, type and screen for blood (no type and cross),
[2017-07-19 01:07] LABS: ABSOLUTE BASOPHIL COUNT 0 /CUMM (0.0-0.2); ABSOLUTE EOSINOPHIL COUNT 0.1 /CUMM (0.0-0.7); ABSOLUTE LYMPH COUNT 1.3 /CUMM (1.2-3.4); ABSOLUTE MONOCYTE COUNT 0.4 /CUMM (0.10-0.60); MEAN CORPUSCULAR VOLUME 91.4 FL (81.0-99.0)
[2017-07-19 01:22] LABS: ABSOLUTE GRANULOCYTE CT 4.3 /CUMM (1.4-6.5); BASOPHIL % 0.3 % (0.0-2.0); EOSINOPHIL % 1.2 % (0-5); GRANULOCYTE % 70.7 % (42.2-75.2); MEAN CORPUSCULAR HGB 30.7 PG (27.0-31.0); MEAN CORPUSCULAR HGB CONC 33.6 G/DL (33.0-37.0); MEAN PLATELET VOLUME 8.1 FL (7.4-10.4); PLATELET COUNT 186 /CUMM (130-400); RBC DISTRIBUTION WIDTH 16.3 % (11.5-14.5); WHITE BLOOD CELL COUNT 6.1 /CUMM (4.8-10.8)
[2017-07-19 01:27] LABS: HEMATOCRIT 19.2 % (37-47)
[2017-07-19 02:00] VITALS: BP 152/68
--- NOTE | 2017-07-19 06:53 | RADIOLOGY REPORT ---
EXAMINATION: XR PORTABLE CHEST CLINICAL INFORMATION: Worsening shortness of breath, rule out fluid overload COMPARISON: 07/18/2017 TECHNIQUE: Portable frontal view of the chest was obtained. FINDINGS: The lungs are hypoinflated. There is a small moderate right pleural effusion, slightly increased from prior. Small left pleural effusion is similar to prior. There is associated opacification of the mid to basilar right lung and left lung base which may reflect atelectasis. No pneumothorax is seen. There is mild prominence of the central vasculature. The cardiac silhouette appears prominent, grossly similar to prior. Calcification is present at the aortic arch. No acute osseous findings are seen. IMPRESSION: Mild prominence of the central vasculature, which may reflect congestion without overt edema. Mildly increased small to moderate right pleural effusion; persistent small left pleural effusion. Regions of adjacent bilateral opacity may reflect atelectasis.
--- NOTE | 2017-07-19 09:57 | PN- Resident CRCU ---
Olivier,Afaf 07/19/17 0957: Subjective HPI/CRCU Issues: Acute Hypoxic/Hypercarbic Respiratory Failure on BiPAP Ongoing LGI Bleed Hx. of chronic anemia 24 Hour Events: Patient seen and examined today, she looks lethargic, O2 sat down to 81% on RA which improved after 7L NC to 91%. She is S/P 2 units blood transfusion, she seems overloaded, she received one dose of 20mg IV Lasix at early am. Other vitals stable Objective Vital Signs & I&O Last 8 Hrs of Vitals and I&O: Intake & Output 07/19 1600 Intake Total 65 Output Total 800 Balance -735 Intake, IV 15 Intake, Oral 50 Output, Stool 200 Output, Urine 600 Exam General Appearance: alert, lethargic, severe distress Head: atraumatic, normal appearance Neck: normal inspection Respiratory: decreased breath sounds, accessory muscle use, crackles, rhonchi Cardiovascular: regular rate/rhythm Gastrointestinal: soft, non-tender, colostomy bag in place, with jane madi blood CXR Findings: @07/19/2017: IMPRESSION: Mild prominence of the central vasculature, which may reflect congestion without overt edema. Mildly increased small to moderate right pleural effusion; persistent small left pleural effusion. Regions of adjacent bilateral opacity may reflect atelectasis. Impression/Plan Impression/Problem List Impression: Mrs. Rama Corona is a 76-year-old female with a history of anxiety/ depression, rheumatoid arthritis on chronic steroid therapy, previous deep venous thrombosis on chronic anticoagulation with Xarelto (Currently on hold), obesity, obstructive sleep apnea on CPAP, chronic anemia, hypertension, left ventricular hypertrophy with diastolic dysfunction, and aortic regurgiatation who presented to the ED on 07/18/2017 with complaints of jane blood in her colostomy bag since yesterday. She was recently discharged on 07/11/17, after been treated for acute on chronic diastolic CHF, she was on xeralto that was stopped due to anemia with dropping H &H and positive Guaiac during her last admission after discussion of risks and benefits with the patient. She was hospitalized at earlier this month (06/23-07/02/2017) with symptomatic anemia and modest troponin I elevation, requiring transfusion 2 with no obvious etiology for the bleeding documented and with the plan for an outpatient pill cam. She additionally had evidence of acute on chronic kidney injury, and was seen in consultation by nephrology and gradually improved from that standpoint. Finally, given concerns about underlying coronary artery disease, she was transferred to [facility] where she underwent cardiac catheterization on 07/02/2017 that revealed: LM- patent, LAD- long vessel wrapping around the apex with a ~70% proximal stenosis, LCx- 60% ostial M1, and RCA- dominant and patent, & LV gram-not done. She was admitted to telemetry floor, received 2 units blood transfusion and 2 units FFB as her INR was found to be elevated to 2.36, in the setting with active GI bleed throught colostomy bag, patient was seen by GI who recommended prep the patient over night with planned colonoscopy through ostomy today, also she needs serial H&H Q4-6 hours , GI recommended surgical and nephrology consult , to continue dual antiplatelet therapy given recent stent, transfuse to keep Hgb >8.0 Patient was also seen by ice maker who recommended to follow up serial EKG and troponin, she was cleared from ice maker stand of point for colonoscopy given recent successful stent placement, ice maker also recommend to continue outpatient diuretic regimen, continue antipletelet if fine with GI and to keep Hgb >8 Today as mentioned above she developed acute hypoxemic/ hypercarbic respiratory failure wich is most likely 2/2 fluid overload with superimposed Problem List: 1. GI bleed 2. Acute respiratory failure Pain Ratin Tomorrow's Labs & Rationales: ICU labe bundle, cbc Plan Respiratory: * Will start Bipap, consider repeat ABG in 3-4 hours afterward * No plan for intubation per patient request * TRC/NEBs as needed Infectious Diseases: * Keep the head of the bed elevated for aspiration precaution * No need for repeat CXR at this moment as she alreay has one today at 6am, impression as above * Monitor for any fever Cardiovascular: * Elevated troponin consistent with type II DE * Monitor BP, HR * F/U ice maker recommendation * Continue dual antiplatelet therapy * Will check LE doppler to R/O DVT * Will dc lisinopril * Continue Lasix as needed * Continue telemetry monitoring for now Hematology: * No anticoagulation * Serial H&H q6hr * Colonoscopy canceled till the patient becomes hemodynamically stable * Surgical consult * Transfuse as needed to keep Hgb>8 Metabolic: * Repeat ICU lab bundle at am for creatinine and electrolytes Alimentary: * NPO for aspiration risk Neurological: * She is alert but lethargic * monitor for any motor or sensory deficit or altered mental status DVT/Prophylaxis: mechanical Code Status: Do Not Resucitate/Intubat Lucien Zuniga MD 07/19/17 0957: Objective Current Medications: Current Medications Sig/Rick Start time Last Medication Dose Route Stop Time Status Admin Acetaminophen 650 MG Q6P PRN 07/19 1415 AC 07/20 PO 0624 Albuterol Sulfate 3 ML Q4P PRN 07/19 1245 AC INH Aspirin 81 MG DAILY 07/19 1319 AC 07/20 PO 0848 Carvedilol 25 MG BID 07/18 2100 DC 07/19 PO 0841 Ceftriaxone Sodium 1,000 MG DAILY 07/19 1721 DC IV Ciprofloxacin 400 MG DAILY@1800 07/19 1800 AC 07/19 Dextrose/Water 200 ML IV 1935 Clopidogrel Bisulfate 75 MG DAILY 07/19 1320 AC 07/20 PO 0848 Fenofibrate 145 MG DAILY 07/19 0900 DC 07/19 PO 0841 Ferrous Gluconate 325 MG TID 07/18 2100 AC 07/20 PO 0848 Furosemide 40 MG ONCE ONE 07/19 1000 DC 07/19 IV 07/19 1001 1001 Furosemide 20 MG ONCE ONE 07/19 0930 DC 07/19 IV 07/19 0931 0946 Gabapentin 100 MG Q8 07/18 2200 AC 07/20 PO 0615 Levothyroxine Sodium 0.025 MG DAILY AC 07/19 0700 AC 07/20 PO 0615 Lisinopril 10 MG QAM 07/19 0900 DC 07/19 PO 0841 Metronidazole 500 MG Q8H 07/20 0200 AC 07/20 N/A 1 UNIT IV 0848 Metronidazole 500 MG IQ8 07/19 1730 DC 07/19 N/A 1 UNIT IV 1822 Pantoprazole Sodium 40 MG BID 07/18 1351 AC 07/20 IV 0848 Sertraline HCl 25 MG QAM 07/19 0900 AC 07/20 PO 0849 Attending MD Review Statement Attending Sign Off Attending Cosign Statement: I have: examined this patient, reviewed aval EMR data, personally reviewd images, discussd w/resident/PA/WIND TURBINE ERECTOR, discussed mgmt plan w/amie, discussed mgmt plan w/CM, discussed mgmt plan w/pt, agreed w/resident/PA/WIND TURBINE ERECTOR, amended to note. Other Findings: Impression 76 year old woman Upgraded today to the ICU for acute blood loss anemia/GI bleed acute hypoxemic and hypercarbic respiratory failure also likely fluid overload secondary to blood transfusions Plan Respiratory -trial of bipap -f/u abg ID -monitor -aspiration precautions CVS/Heme -f/u cardiology -no a/c due to blood loss -f/u GI -LE dopplers -a surgical consultation in this setting is reasonable, however will need to identify patients wishes and overall goals of care Metabolic -ins/outs -creatinine -electrolytes Alimentary -NPO Neuro -monitor closely DVT prophylaxis at all times TTS 40 min Patient is arousable and alert to person and place. Historically she wanted conservative management. Her wishes for DNR/DNI are clear and reproducible. It was witnessed by the nursing and house staff.
[2017-07-19 10:00] VITALS: BP 224/90
--- NOTE | 2017-07-19 10:10 | Event Note ---
Event Note Event Note: Situation: Patient found to be lethargic, O2 sat dropped to 81% on RA, respiratory therapiest called stat, patient started on 7L NC, with improvement of O2 sat to 91%, STAT ABG showed Respiratory acidosis with PH: 7.08, PaCo2: 81. Patient transferred to ICU stat. Case discussed with ICU attending. Spoke with patient's son Mr. James Corona about the situation, he was updated about his mother medical status, he was informed that his mother transfered to ICU. ICU attending and resident discussed the code status with the patient, she was very clear that she doesn't want intubation. Her code status changed to DNI/DNR, patient son was also updated about changing code status and he was in agreement.
[2017-07-19 10:47] LABS: ABSOLUTE BASOPHIL COUNT 0.1 /CUMM (0.0-0.2); ABSOLUTE EOSINOPHIL COUNT 0.3 /CUMM (0.0-0.7); ABSOLUTE GRANULOCYTE CT 11.3 /CUMM (1.4-6.5); ABSOLUTE LYMPH COUNT 4.3 /CUMM (1.2-3.4); ABSOLUTE MONOCYTE COUNT 0.9 /CUMM (0.10-0.60); BASOPHIL % 0.5 % (0.0-2.0); EOSINOPHIL % 2.1 % (0-5); GRANULOCYTE % 66.6 % (42.2-75.2); MEAN CORPUSCULAR HGB CONC 32.9 G/DL (33.0-37.0); MEAN PLATELET VOLUME 7.7 FL (7.4-10.4); RBC DISTRIBUTION WIDTH 16.9 % (11.5-14.5)
[2017-07-19 10:53] LABS: PT 12.7 SEC (9.4-12.5)
--- NOTE | 2017-07-19 11:02 | PN- Cardiology ---
Subjective Subjective: The patient is lying in bed. She remains on BiPAP, lethargic but arousable, mildly short of breath Objective Vital Signs and I&Os Vital Signs Date Time Temp Pulse Resp B/P B/P Pulse O2 O2 Flow FiO2 Mean Ox Delivery Rate 07/19 1008 88 93 07/19 1000 98.6 97 26 224/90 90 BIPAP 90% 07/19 0841 64 152/68 07/19 0841 64 152/68 07/19 0200 97.8 64 20 152/68 92 Room Air 07/19 0121 Room Air 07/18 2308 98.1 64 16 136/56 93 Room Air 07/18 2148 68 134/68 07/18 2147 97.7 69 16 142/80 95 Room Air 07/18 2107 92 Room Air 07/18 1350 98.1 64 18 110/52 94 Room Air 07/18 1316 96.0 62 20 158/70 95 Room Air 07/18 1159 60 20 134/63 96 Room Air Intake & Output 07/19 1600 07/19 0800 07/19 0000 07/18 1600 07/18 0800 07/18 0000 Intake Total 750 1101 480 Output Total 700 900 600 Balance 50 201 -120 Intake, Blood 450 1 Product Intake, IV 100 Intake, Oral 300 1000 480 Output, Stool 700 600 200 Output, Urine 300 400 Patient 146 lb Weight Weight Reported by Patient Measurement Method Physical Exam: General Appearance: Thin elderly female, lethargic but arousable, on BiPAP Head: normal HEENT: Normal Neck: supple, JVP normal, carotid upstrokes normal bilaterally, no masses or thyromegaly Respiratory: chest non-tender, bilateral rhonchi Cardiovascular: regular rate/rhythm, normal S1, S2, no audible murmur Abdomen: normal bowel sounds, soft, non-tender Extremities: normal inspection, no edema Vascular: Pulses are 2+ and equal bilaterally Neurologic: Grossly normal/nonfocal Current Medications: Current Medications Sig/Rick Start time Last Medication Dose Route Stop Time Status Admin Acetaminophen 650 MG ONCE ONE 07/18 1745 DC 07/18 PO 07/18 1746 1858 Anti-Inhibitor 1,500 UNIT ONCE ONE 07/18 1215 DC 07/18 Coagulant Complex IV 07/18 1224 1239 N/A 1 UNIT Carvedilol 25 MG BID 07/18 2100 AC 07/19 PO 0841 Fenofibrate 145 MG DAILY 07/19 0900 AC 07/19 PO 0841 Ferrous Gluconate 325 MG TID 07/18 2100 AC 07/19 PO 0853 Furosemide 40 MG ONCE ONE 07/19 1000 DC 07/19 IV 07/19 1001 1001 Furosemide 20 MG ONCE ONE 07/19 0930 DC 07/19 IV 07/19 0931 0946 Furosemide 20 MG ONCE ONE 07/19 0715 DC 07/19 IV 07/19 0716 0853 Gabapentin 100 MG Q8 07/18 2200 AC 07/19 PO 0543 Levothyroxine Sodium 0.025 MG DAILY AC 07/19 0700 AC 07/19 PO 0543 Lisinopril 10 MG QAM 07/19 0900 AC 07/19 PO 0841 Non-Formulary 0 SEE ADMIN CRITERIA 07/18 1145 CAN Medication ANY Pantoprazole Sodium 40 MG BID 07/18 1351 AC 07/19 IV 0841 Phytonadione 0 .STK-MED ONE 07/18 1200 DC .ROUTE Phytonadione 10 MG ONCE ONE 07/18 1145 DC 07/18 IM 07/18 1146 1157 Polyethylene Glycol 0.5 GAL 1800,0400 07/19 0400 DC PO 07/19 0401 Polyethylene Glycol 0.5 GAL 2000,0400 07/18 2000 DC 07/19 PO 07/19 0401 0400 Sertraline HCl 25 MG QAM 07/19 0900 AC 07/19 PO 0841 Sodium Chloride 1,000 ML .Q10H 07/18 1345 DC 07/18 IV 1656 Tramadol HCl 50 MG ONCE ONE 07/19 0045 DC 07/19 PO 07/19 0046 0052 Results Last 48 Hrs of Labs/Mics: Laboratory Tests 07/19/17 1020: Lactic Acid Pending 07/19/17 1020: Sodium Pending, Potassium Pending, Chloride Pending, Carbon Dioxide Pending, Anion Gap Pending, BUN Pending, Creatinine Pending, Glucose Pending, Calcium Pending, Phosphorus Pending, Magnesium Pending, Total Bilirubin Pending, AST Pending, ALT Pending, Troponin I Pending, Albumin Pending, PT 12.7 H, INR 1.16, CBC w Diff Pending, WBC Pending, RBC Pending, Hgb Pending, Hct Pending, MCV Pending, MCH Pending, MCHC Pending, RDW Pending, Plt Count Pending, MPV Pending 07/19/17 0945: pH 7.08 *L, pCO2 81 *H, pO2 82, HCO3 24, ABG O2 Sat (Measured) 90.0 L, Carboxyhemoglobin 0.4 L, O2 Concentration % 7L, O2 Delivery Method N/C, Phlebotomy Draw Site RIGHT RADIAL 07/19/17 0921: D-Dimer High Sensitivty Cancelled 07/19/17 0025: Troponin I 0.49 *H 07/19/17 0025: Lactic Acid 0.7, CBC w Diff NO MAN DIFF REQ, RBC 2.10 L, MCV 91.4, MCH 30.7, MCHC 33.6, RDW 16.3 H, MPV 8.1, Gran % 70.7, Lymphocytes % 21.5, Monocytes % 6.3, Eosinophils % 1.2, Basophils % 0.3, Absolute Granulocytes 4.3, Absolute Lymphocytes 1.3, Absolute Monocytes 0.4, Absolute Eosinophils 0.1, Absolute Basophils 0 07/18/17 1759: Troponin I 0.40 *H 07/18/17 1532: CBC w Diff NO MAN DIFF REQ, RBC 2.73 L, MCV 92.5, MCH 30.3, MCHC 32.7 L, RDW 17.1 H, MPV 8.1, Gran % 86.4 H, Lymphocytes % 10.2 L, Monocytes % 2.3, Eosinophils % 0.7, Basophils % 0.4, Absolute Granulocytes 6.6 H, Absolute Lymphocytes 0.8 L, Absolute Monocytes 0.2, Absolute Eosinophils 0.1, Absolute Basophils 0 07/18/17 1155: Anion Gap 8, Estimated GFR 29 L, BUN/Creatinine Ratio 28.8 H, Glucose 81, Calcium 9.2, Magnesium 2.1, Total Bilirubin 0.3, AST 16, ALT 27, Alkaline Phosphatase 81, Troponin I 0.43 *H, Wyo-T-Gasdxnynfjw Pept 7740 H, Total Protein 4.7 L, Albumin 2.2 L, Globulin 2.5, Albumin/Globulin Ratio 0.9 L 07/18/17 0920: PT 25.9 H, INR 2.36 H, APTT 39 H, CBC w Diff NO MAN DIFF REQ, RBC 2.79 L, MCV 91.9, MCH 30.4, MCHC 33.0, RDW 16.4 H, MPV 8.0, Gran % 75.4 H, Lymphocytes % 15.5 L, Monocytes % 6.6, Eosinophils % 2.1, Basophils % 0.4, Absolute Granulocytes 5.6, Absolute Lymphocytes 1.2, Absolute Monocytes 0.5, Absolute Eosinophils 0.2, Absolute Basophils 0 Assessment/Plan Assessment/Plan Assessment: 1. GI bleed with anemia 2. Elevated troponin consistent with type II MD 3. History of coronary artery disease, status post LAD stent in June 2017 . History of DVT previously on Eliquis 5. Obstructive sleep apnea 6. Hypertension 7. Lower extremity edema; possible HFpEF 8. Chronic renal insufficiency stage IV Her conditions: -Continue current supportive care -CODE STATUS changes noted -As per nephrology, okay to continue Lasix as needed. Lisinopril held -As per Dr. Martin of the GI service, okay to restart Plavix and aspirin. -Maintain telemetry monitoring for now. -Follow-up labs pending. Continue telemetry? Yes
--- NOTE | 2017-07-19 11:04 | Event Note ---
Event Note Event Note: Ms Corona was transferred to the ICU for the management of acute decompensation of respiratory status likely from fluid overload. She was given x 1 dose of Lasix. Vitals: Temp 98.6, heart rate 97, normal sinus rhythm, respiration 26, blood pressure 224/90, arrived on BiPAP on rate of 26. FiO2 60% with IPAP 18, EPAP 6. Labs were drawn including ICU bundle, C BC and troponin. Lung examination revealed coarse rhonchi bilaterally, and crackles at lung bases. She was oriented to time place and person. We discussed about a possible intubation if respiratory status worsens, but she expressed her wish to be DNR/DNI. Follow-up vitals revealed temperature 97.4, heart rate 68, normal sinus rhythm, respiratory 26, blood pressure 122/60, on BiPAP. 92% on 60% FiO2. Follow-up ABG ordered. To be followed up. She was continued on BiPAP, and mentation improved within 30-40 minutes after being on BiPAP. She stated that she did not have any chest pain, palpitations. She did not want to have the BiPAP mask on, and felt that she improved. On examination, she was alert and oriented 3. Lung examination revealed rhonchi bilaterally. She did have bright red loose stool in the colostomy bag. No abdominal tenderness or guarding noted. Follow-up labs revealed improved hematocrit, after 2 units of PRBCs. Troponin 0.51 slightly elevated compared to her last troponin level, with no new EKG changes. Kylie Sanchez MD examined the patient, who recommended following up on her closely. As per the thread reeler, she had mild elevation in troponin likely from her renal insufficiency, and her hyperdynamic circulation. Would follow-up on serial EKGs and troponins. There was an initial plan for her to get an colonoscopy, but given her acute decompensation in her respiratory status, this plan was deferred for later. Dr. Martin was at bedside for examining the patient. As per Dr. Martin, she should be evaluated by the surgery for ruling out any acute mesenteric ischemia. Plan to follow-up on her hemodynamics closely. If she worsens, would call GI immediately. Discussed the management plan with Dr. Zuniga. Discussed with the family about the prognosis, and the management that is being done in the hospital. Since the pt couldnt get the CT scan done; Dr. Friedman spoke to inform Dr Martin who advised on starting Ciprofloxacin and Metronidazole. Dr. Friedman informed the famiy.
[2017-07-19 11:27] LABS: HEMATOCRIT 33.2 % (37-47); PLATELET COUNT 388 /CUMM (130-400); RED BLOOD CELL CT 3.65 /CUMM (4.20-5.40); WHITE BLOOD CELL COUNT 16.9 /CUMM (4.8-10.8)
[2017-07-19 12:00] VITALS: BP 122/60
--- NOTE | 2017-07-19 12:31 | ULTRASOUND REPORT ---
EXAMINATION: US TRIPLEX OF LOWER EXTREMITIES, BILATERAL CLINICAL INFORMATION: Bilateral lower extremity edema. COMPARISON: None TECHNIQUE: Color-flow triplex imaging with spectral analysis and compression Doppler were performed on the lower extremities. FINDINGS: Respiratory variation, normal compression and augmented flow are noted throughout the lower extremities. The visualized common femoral vein, superficial femoral vein, profunda femoral vein, popliteal vein and midcalf peroneal and posterior tibial venous segments show no evidence of deep venous thrombosis. There is no Daley's cyst. IMPRESSION: Normal triplex scan without evidence of deep venous thrombosis involving the lower extremities.
--- NOTE | 2017-07-19 12:40 | PN- Gastroenterology ---
Assessment/Plan GI Assessment/Recommendations: ASSESSMENT: 1. Hypoxic Respiratory Failure, improving on BiPAP 2. Ongoing LGI Bleed -- Hgb decreased to 6.4 3. S/P Coronary Artery Stent 7 days ago, is off antiplatelet agents 4. Chronic Kidney Disease, Stage IV 5. Acute Blood Loss Anemia 6. Rheumatoid Arthritis 7. Congestive Heart Failure 8. ? Hematoma Popliteal Fossa RECOMMENDATIONS: 1. Surgery Consult 2. Tagged Red Cell Scan 3. Nephrology Consult so that is possible patient can be prepared for possible CTA as ischemic colitis is in the differential 4. Colonoscopy cancelled until patient more stable from a cardiorespiratory point of view 5. Would restart antiplatelet therapy. Discussed with Dr. Sanchez. Although quite concerned about GI blood loss, patient had stent placed one week ago and may have stent occlusion in this setting. Would be vigorous in replacing blood losses and with diuresis. 6. Serial H/H q 6 hours. Transfuse to Hgb of 8-10. 7. Continue BiPAP 8. Continue Clear Liquids Subjective Subjective: Patient transferred to the ICU for increasing shortness of breath. The fence the past 24 hours noted. Patient transfused 2 units of packed red blood cells last night. She became hypoxic with an ABG of 7.08/81/82/90% and was transferred to the ICU. After being on BiPAP in the ICU repeat ABG was 7.34/42/ 98%. Her H/H had dropped to 6.4/19.2. 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 Patient was going to have colonoscopy through her ostomy today. Objective Vital Signs and I&Os Vital Signs Date Time Temp Pulse Resp B/P B/P Pulse O2 O2 Flow FiO2 Mean Ox Delivery Rate 07/19 1008 88 93 07/19 1000 90 BIPAP 60% 07/19 1000 98.6 97 26 224/90 90 BIPAP 90% 07/19 0841 64 152/68 07/19 0841 64 152/68 07/19 0200 97.8 64 20 152/68 92 Room Air 07/19 0121 Room Air 07/18 2308 98.1 64 16 136/56 93 Room Air 07/18 2148 68 134/68 07/18 2147 97.7 69 16 142/80 95 Room Air 07/18 2107 92 Room Air 07/18 1350 98.1 64 18 110/52 94 Room Air 07/18 1316 96.0 62 20 158/70 95 Room Air Intake & Output 07/19 1600 07/19 0400 07/18 1600 07/18 0400 07/17 1600 07/17 0400 Intake Total 750 1101 480 Output Total 500 1100 600 Balance 250 1 -120 Intake, Blood 450 1 Product Intake, IV 100 Intake, Oral 300 1000 480 Output, Stool 500 800 200 Output, Urine 300 400 Patient 146 lb Weight Weight Reported by Patient Measurement Method Physical Exam General Appearance: lethargic Respiratory: decreased breath sounds, respiratory distress, On BiPAP Cardiovascular: regular rate/rhythm, Distant HS Abdomen: decreased bowel sounds. There is no tenderness rebound or guarding. There is jane maroon blood in the ostomy. Per nursing there was 200 mL of maroonish blood out overnight. The stoma is motile Extremities: pedal edema Neurologic/Psychiatric: awake Skin: pallor Current Medications: Current Medications Sig/Rick Start time Last Medication Dose Route Stop Time Status Admin Acetaminophen 650 MG ONCE ONE 07/18 1745 DC 07/18 PO 07/18 1746 1858 Carvedilol 25 MG BID 07/18 2100 AC 07/19 PO 0841 Fenofibrate 145 MG DAILY 07/19 0900 AC 07/19 PO 0841 Ferrous Gluconate 325 MG TID 07/18 2100 AC 07/19 PO 0853 Furosemide 40 MG ONCE ONE 07/19 1000 DC 07/19 IV 07/19 1001 1001 Furosemide 20 MG ONCE ONE 07/19 0930 DC 07/19 IV 07/19 0931 0946 Furosemide 20 MG ONCE ONE 07/19 0715 DC 07/19 IV 07/19 0716 0853 Gabapentin 100 MG Q8 07/18 2200 AC 07/19 PO 0543 Levothyroxine Sodium 0.025 MG DAILY AC 07/19 0700 AC 07/19 PO 0543 Lisinopril 10 MG QAM 07/19 0900 AC 07/19 PO 0841 Non-Formulary 0 SEE ADMIN CRITERIA 07/18 1145 CAN Medication ANY Pantoprazole Sodium 40 MG BID 07/18 1351 AC 07/19 IV 0841 Polyethylene Glycol 0.5 GAL 1800,0400 07/19 0400 DC PO 07/19 0401 Polyethylene Glycol 0.5 GAL 2000,0400 07/18 2000 DC 07/19 PO 07/19 0401 0400 Sertraline HCl 25 MG QAM 07/19 0900 AC 07/19 PO 0841 Sodium Chloride 1,000 ML .Q10H 07/18 1345 DC 07/18 IV 1656 Tramadol HCl 50 MG ONCE ONE 07/19 0045 DC 07/19 PO 07/19 45 0052 Results Pertinent Lab Results: Laboratory Tests 07/19 07/19 07/19 1158 1020 1020 Blood Gas pH (7.35 - 7.45 PH) 7.34 L pCO2 (35 - 45 TORR) 42 pO2 (80 - 100 TORR) 98 HCO3 (21 - 28 MEQ/L) 23 ABG O2 Sat (Measured) (>96.0 %) 96.0 Carboxyhemoglobin (1.5 - 5.0 %) 0.4 L O2 Concentration % 60% Temperature (97.0 - 100.0 FARH) 97.4 Respiration Rate (BPM) 26 O2 Delivery Method BIPAP Vent Mode ST Expiratory Pressure (CM H2O P) 6 Inspiratory Pressure (CM H2O P) 18 Chemistry Sodium (137 - 145 mmol/L) 144 Potassium (3.5 - 5.1 mmol/L) 5.0 Chloride (98 - 107 mmol/L) 109 H Carbon Dioxide (22 - 30 mmol/L) 25 Anion Gap (5 - 16) 10 BUN (7 - 17 mg/dL) 43 H Creatinine (0.5 - 1.0 mg/dL) 1.7 H Estimated GFR (>60 ml/min) 29 L Glucose (65 - 99 mg/dL) 102 H Lactic Acid (0.7 - 2.1 mmol/L) 1.2 Calcium (8.4 - 10.2 mg/dL) 9.3 Phosphorus (2.5 - 4.5 mg/dL) 5.5 H Magnesium (1.6 - 2.3 mg/dL) 2.0 Total Bilirubin (0.2 - 1.3 mg/dL) 0.5 AST (14 - 36 U/L) 23 ALT (9 - 52 U/L) 28 Troponin I (< 0.11 ng/ml) 0.53 *H Albumin (3.5 - 5.0 g/dL) 2.8 L Coagulation PT (9.4 - 12.5 SEC) 12.7 H INR (0.90 - 1.19) 1.16 Hematology CBC w Diff NO MAN DIFF REQ WBC (4.8 - 10.8 /CUMM) 16.9 H RBC (4.20 - 5.40 /CUMM) 3.65 L Hgb (12.0 - 16.0 G/DL) 10.9 L Hct (37 - 47 %) 33.2 L MCV (81.0 - 99.0 FL) 91.0 MCH (27.0 - 31.0 PG) 30.0 MCHC (33.0 - 37.0 G/DL) 32.9 L RDW (11.5 - 14.5 %) 16.9 H Plt Count (130 - 400 /CUMM) 388 MPV (7.4 - 10.4 FL) 7.7 Gran % (42.2 - 75.2 %) 66.6 Lymphocytes % (20.5 - 51.1 %) 25.3 Monocytes % (1.7 - 9.3 %) 5.5 Eosinophils % (0 - 5 %) 2.1 Basophils % (0.0 - 2.0 %) 0.5 Absolute Granulocytes (1.4 - 6.5 /CUMM) 11.3 H Absolute Lymphocytes (1.2 - 3.4 /CUMM) 4.3 H Absolute Monocytes (0.10 - 0.60 /CUMM) 0.9 H Absolute Eosinophils (0.0 - 0.7 /CUMM) 0.3 Absolute Basophils (0.0 - 0.2 /CUMM) 0.1 Miscellaneous Phlebotomy Draw Site RIGHT RADIAL 07/19 07/19 07/19 0945 0921 0025 Blood Gas pH (7.35 - 7.45 PH) 7.08 *L pCO2 (35 - 45 TORR) 81 *H pO2 (80 - 100 TORR) 82 HCO3 (21 - 28 MEQ/L) 24 ABG O2 Sat (Measured) (>96.0 %) 90.0 L Carboxyhemoglobin (1.5 - 5.0 %) 0.4 L O2 Concentration % 7L O2 Delivery Method N/C Chemistry Troponin I (< 0.11 ng/ml) 0.49 *H Coagulation D-Dimer High Sensitivty Cancelled Miscellaneous Phlebotomy Draw Site RIGHT RADIAL 07/19 07/18 0025 1759 Chemistry Lactic Acid (0.7 - 2.1 mmol/L) 0.7 Troponin I (< 0.11 ng/ml) 0.40 *H Hematology CBC w Diff NO MAN DIFF REQ WBC (4.8 - 10.8 /CUMM) 6.1 RBC (4.20 - 5.40 /CUMM) 2.10 L Hgb (12.0 - 16.0 G/DL) 6.4 *L Hct (37 - 47 %) 19.2 *L MCV (81.0 - 99.0 FL) 91.4 MCH (27.0 - 31.0 PG) 30.7 MCHC (33.0 - 37.0 G/DL) 33.6 RDW (11.5 - 14.5 %) 16.3 H Plt Count (130 - 400 /CUMM) 186 MPV (7.4 - 10.4 FL) 8.1 Gran % (42.2 - 75.2 %) 70.7 Lymphocytes % (20.5 - 51.1 %) 21.5 Monocytes % (1.7 - 9.3 %) 6.3 Eosinophils % (0 - 5 %) 1.2 Basophils % (0.0 - 2.0 %) 0.3 Absolute Granulocytes (1.4 - 6.5 /CUMM) 4.3 Absolute Lymphocytes (1.2 - 3.4 /CUMM) 1.3 Absolute Monocytes (0.10 - 0.60 /CUMM) 0.4 Absolute Eosinophils (0.0 - 0.7 /CUMM) 0.1 Absolute Basophils (0.0 - 0.2 /CUMM) 0 07/18 07/18 1532 1155 Chemistry Sodium (137 - 145 mmol/L) 142 Potassium (3.5 - 5.1 mmol/L) 4.7 Chloride (98 - 107 mmol/L) 109 H Carbon Dioxide (22 - 30 mmol/L) 25 Anion Gap (5 - 16) 8 BUN (7 - 17 mg/dL) 49 H Creatinine (0.5 - 1.0 mg/dL) 1.7 H Estimated GFR (>60 ml/min) 29 L BUN/Creatinine Ratio (7 - 25 %) 28.8 H Glucose (65 - 99 mg/dL) 81 Calcium (8.4 - 10.2 mg/dL) 9.2 Magnesium (1.6 - 2.3 mg/dL) 2.1 Total Bilirubin (0.2 - 1.3 mg/dL) 0.3 AST (14 - 36 U/L) 16 ALT (9 - 52 U/L) 27 Alkaline Phosphatase (<127 U/L) 81 Troponin I (< 0.11 ng/ml) 0.43 *H Yew-L-Ewngaxmshtx Pept (<125 pg/mL) 7740 H Total Protein (6.3 - 8.2 g/dL) 4.7 L Albumin (3.5 - 5.0 g/dL) 2.2 L Globulin (1.9 - 4.2 gm/dL) 2.5 Albumin/Globulin Ratio (1.1 - 2.2 %) 0.9 L Hematology CBC w Diff NO MAN DIFF REQ WBC (4.8 - 10.8 /CUMM) 7.6 RBC (4.20 - 5.40 /CUMM) 2.73 L Hgb (12.0 - 16.0 G/DL) 8.3 L Hct (37 - 47 %) 25.3 L MCV (81.0 - 99.0 FL) 92.5 MCH (27.0 - 31.0 PG) 30.3 MCHC (33.0 - 37.0 G/DL) 32.7 L RDW (11.5 - 14.5 %) 17.1 H Plt Count (130 - 400 /CUMM) 219 MPV (7.4 - 10.4 FL) 8.1 Gran % (42.2 - 75.2 %) 86.4 H Lymphocytes % (20.5 - 51.1 %) 10.2 L Monocytes % (1.7 - 9.3 %) 2.3 Eosinophils % (0 - 5 %) 0.7 Basophils % (0.0 - 2.0 %) 0.4 Absolute Granulocytes (1.4 - 6.5 /CUMM) 6.6 H Absolute Lymphocytes (1.2 - 3.4 /CUMM) 0.8 L Absolute Monocytes (0.10 - 0.60 /CUMM) 0.2 Absolute Eosinophils (0.0 - 0.7 /CUMM) 0.1 Absolute Basophils (0.0 - 0.2 /CUMM) 0 04/27 0920 Coagulation PT (9.4 - 12.5 SEC) 25.9 H INR (0.90 - 1.19) 2.36 H APTT (25 - 37 SEC) 39 H Hematology CBC w Diff NO MAN DIFF REQ WBC (4.8 - 10.8 /CUMM) 7.4 RBC (4.20 - 5.40 /CUMM) 2.79 L Hgb (12.0 - 16.0 G/DL) 8.5 L Hct (37 - 47 %) 25.6 L MCV (81.0 - 99.0 FL) 91.9 MCH (27.0 - 31.0 PG) 30.4 MCHC (33.0 - 37.0 G/DL) 33.0 RDW (11.5 - 14.5 %) 16.4 H Plt Count (130 - 400 /CUMM) 228 MPV (7.4 - 10.4 FL) 8.0 Gran % (42.2 - 75.2 %) 75.4 H Lymphocytes % (20.5 - 51.1 %) 15.5 L Monocytes % (1.7 - 9.3 %) 6.6 Eosinophils % (0 - 5 %) 2.1 Basophils % (0.0 - 2.0 %) 0.4 Absolute Granulocytes (1.4 - 6.5 /CUMM) 5.6 Absolute Lymphocytes (1.2 - 3.4 /CUMM) 1.2 Absolute Monocytes (0.10 - 0.60 /CUMM) 0.5 Absolute Eosinophils (0.0 - 0.7 /CUMM) 0.2 Absolute Basophils (0.0 - 0.2 /CUMM) 0 Imaging/Other Studies: CXR: IMPRESSION: Mild prominence of the central vasculature, which may reflect congestion without overt edema. Mildly increased small to moderate right pleural effusion; persistent small left pleural effusion. Regions of adjacent bilateral opacity may reflect atelectasis.
--- NOTE | 2017-07-19 12:44 | Cons- Nephrology ---
General Information and HPI Consulting Request Date of Consult: 07/19/17 Requested By: Lucien Zuniga MD Reason for Consult: CKD & resp failure Source of Information: patient, old records Exam Limitations: pt on bipap History of Present Illness: 76 yr od WF w mult med problems including RA, HTN, TACO w/o home CPAP, CHFepEF, recurrent GI bleed & CKD admit yesterday w lower GI bleed via colostomy. Recent AL requiring cath & LAD PCI/stent. On Xarelto & anti plt agents (aspirin & Plavix) added post stent. Required prothrombin complex & transfusion prbcs & course complicated thereafter by hypercapnic & hypoxic resp failure requiring transfer ICU & biPaP. Known severe, stage 4, CKD w baseine Cr hi 1s- 2 in setting of nephrotic range proteinuria & previous MARVEL/ATN. On ACEI & Lasix w Cr near baseline @ 1.7 on admit & since then. No documented hypotension, NSAIDs, or IV contrat this admit contrast but concern may require GI angiogram & embolization. Pt awake on alert w improved breathing on biPaP. Denies CP; no gross uremic sx & making urine. Allergies/Medications Allergies: Coded Allergies: Penicillins (SWELLING, RASH, ITCH 07/18/17) cephalexin (From KEFLEX) (ITCHY 07/18/17) chocolate flavor (HEADACHE/MIGRAINE 07/18/17) codeine (ITCH 07/18/17) levofloxacin (From LEVAQUIN) (RASH 07/18/17) oxaprozin (From DAYPRO) (RASH 07/18/17) propoxyphene (UNKNOWN REACTION TO DARVOCET 07/18/17) Home Med List: Aspirin (Aspirin*) 81 MG TAB.CHEW 1 TAB PO DAILY Heart health Butalb/Acetaminophen/Caffeine (Qenyge-Sroayxiu-Ulrg 50-325-40) 50 MG-325 MG-40 MG TABLET 1 TAB PO BID PRN migrain (Reported) Calcium Carbonate/Vitamin D3 (Os-Mehdi 500+D3 Caplet) 500 MG-200 TABLET 1 TAB PO DAILY SUPPLEMENT (Reported) Carvedilol 25 MG TABLET 1 TAB PO BID HEART/BP (Reported) Clopidogrel Bisulfate (Plavix) 75 MG TABLET 1 TAB PO DAILY HEART HEALTH ( Reported) Cyclobenzaprine HCl 5 MG TABLET 1 TAB PO TIDPRN PRN muscle spasms (Reported) Docusate Sodium 100 MG CAPSULE 1 CAP PO DAILY constipation (Reported) Ergocalciferol (Vitamin D2) (Vitamin D2) 50,000 UNIT CAPSULE 1 CAP PO QWED SUPPLEMENT (Reported) Fenofibrate,Micronized (Fenofibrate) 200 MG CAPSULE 1 CAP PO DAILY TG ( Reported) Ferrous Gluconate (Unknown Strength) TABLET (Unknown Dose) PO DAILY SUPPLEMENT (Reported) Furosemide (Lasix) 20 MG TABLET 1 TAB PO DAILY DIURETIC (Reported) Gabapentin 100 MG CAPSULE 1 CAP PO Q8 Neuropathy Levothyroxine Sodium 25 MCG TABLET 1 TAB PO DAILY AC THYROID (Reported) Lisinopril 10 MG TABLET 1 TAB PO QAM BP (Reported) Metoclopramide HCl (Reglan) 10 MG TABLET 1 TAB PO TID for nausea (Reported) 30 minutes before meals and bedtime Nitroglycerin (Nitroglycerin Patch) 0.4 MG/HOUR PATCH.TD24 1 PATCH TOP DAILY Heart health Potassium Chloride (Klor-Con 10) (Unknown Strength) TABLET.ER (Unknown Dose) PO DAILY SUPPLEMENT (Reported) Prednisone 10 MG TABLET 1 TAB PO QAM STEROID (Reported) Sennosides/Docusate Sodium (Senna Plus Tablet) 8.6 MG-50 MG TABLET 1 TAB PO DAILY NEEDED PRN CONSTIPATION . Sertraline HCl 25 MG TABLET 1 TAB PO QAM MENTAL HEALTH (Reported) Tramadol HCl 50 MG TABLET 1 TAB PO Q6 PRN PAIN SCALE 7-10 (SEVERE) Current Medications: Current Medications Sig/Rick Start time Last Medication Dose Route Stop Time Status Admin Acetaminophen 650 MG ONCE ONE 07/18 1745 DC 07/18 PO 07/18 1746 1858 Albuterol Sulfate 3 ML Q4P PRN 07/19 1245 AC INH Carvedilol 25 MG BID 07/18 2100 AC 07/19 PO 0841 Fenofibrate 145 MG DAILY 07/19 0900 AC 07/19 PO 0841 Ferrous Gluconate 325 MG TID 07/18 2100 AC 07/19 PO 0853 Furosemide 40 MG ONCE ONE 07/19 1000 DC 07/19 IV 07/19 1001 1001 Furosemide 20 MG ONCE ONE 07/19 0930 DC 07/19 IV 07/19 0931 0946 Furosemide 20 MG ONCE ONE 07/19 0715 DC 07/19 IV 07/19 0716 0853 Gabapentin 100 MG Q8 07/18 2200 AC 07/19 PO 0543 Levothyroxine Sodium 0.025 MG DAILY AC 07/19 0700 AC 07/19 PO 0543 Lisinopril 10 MG QAM 07/19 0900 AC 07/19 PO 0841 Non-Formulary 0 SEE ADMIN CRITERIA 07/18 1145 CAN Medication ANY Pantoprazole Sodium 40 MG BID 07/18 1351 AC 07/19 IV 0841 Polyethylene Glycol 0.5 GAL 1800,0400 07/19 0400 DC PO 07/19 0401 Polyethylene Glycol 0.5 GAL 2000,0400 07/18 2000 DC 07/19 PO 07/19 0401 0400 Sertraline HCl 25 MG QAM 07/19 0900 AC 07/19 PO 0841 Sodium Chloride 1,000 ML .Q10H 07/18 1345 DC 07/18 IV 1656 Tramadol HCl 50 MG ONCE ONE 07/19 0045 DC 07/19 PO 07/19 0046 0052 Review of Systems Review of Systems Constitutional: Reports: no symptoms. EENTM: Reports: no symptoms. Cardiovascular: Reports: edema. Respiratory: Reports: cough, short of breath. GI: Reports: see HPI, abdominal pain, bloody stool. Genitourinary: Reports: no symptoms. Musculoskeletal: Reports: no symptoms. Skin: Reports: no symptoms. Neurological/Psychological: Reports: no symptoms. Hematologic/Endocrine: Reports: bleeding. Immunologic/Allergic: Reports: no symptoms. All Other Systems: Reviewed and Negative Past History Travel History Traveled to [place] past 21 day No Medical History Blood Transfusion Hx: Yes Neurological: migraine EENT: cataracts Cardiovascular: CHF, hypertension, hyperlipidemia Respiratory: pneumonia Gastrointestinal: diverticulitis, HEMORRHOIDS Hepatic: NONE Renal: 3+PROTEIN IN URINE [id number] Musculoskeletal: rheumatoid arthritis Psychiatric: anxiety, depression, insomnia Endocrine: vitamin D deficiency Blood Disorders: anemia Cancer(s): NONE RN NEUROSURGICAL/Reproductive: NONE Surgical History Surgical History: colon resection, hysterectomy, laminectomy Family History Relations & Conditions If Any: Relation not specified for: *No pertinent family history Psychosocial History Services at Home: [employer] Primary Language: [place] Smoking Status: Former Smoker ETOH Use: denies use Illicit Drug Use: denies illicit drug use Functional Ability Ambulation: cane IADLs Needs Assist: shopping, housework, food prep. ECHO Results (as available) Date of last Echo 07/08/17 EF% 65 Exam & Diagnostic Data Vital Signs and I&O Vital Signs Date Time Temp Pulse Resp B/P B/P Pulse O2 O2 Flow FiO2 Mean Ox Delivery Rate 07/19 1223 BIPAP 60% 07/19 1008 88 93 07/19 1000 90 BIPAP 60% 07/19 1000 98.6 97 26 224/90 90 BIPAP 90% 07/19 0841 64 152/68 07/19 0841 64 152/68 07/19 0200 97.8 64 20 152/68 92 Room Air 07/19 0121 Room Air 07/18 2308 98.1 64 16 136/56 93 Room Air 07/18 2148 68 134/68 07/18 2147 97.7 69 16 142/80 95 Room Air 07/18 2107 92 Room Air 07/18 1350 98.1 64 18 110/52 94 Room Air 07/18 1316 96.0 62 20 158/70 95 Room Air Intake & Output 07/19 1600 07/19 0400 07/18 1600 07/18 0400 07/17 1600 07/17 0400 Intake Total 750 1101 480 Output Total 500 1100 600 Balance 250 1 -120 Intake, Blood 450 1 Product Intake, IV 100 Intake, Oral 300 1000 480 Output, Stool 500 800 200 Output, Urine 300 400 Patient 146 lb Weight Weight Reported by Patient Measurement Method Physical Exam General Appearance: no apparent distress, awake, on biPaP Head: atraumatic, normal appearance Eyes: Bilateral: normal appearance. Ears, Nose, Throat: normal ENT inspection, biPaP mask Neck: normal inspection, supple Respiratory: normal breath sounds, no respiratory distress, quiet respiration, lungs clear Cardiovascular: regular rate/rhythm, friction rub (none) Gastrointestinal: soft, non-tender, no organomegaly, colostomy R abd Extremities: pedal edema Neurologic/Psych: no motor/sensory deficits, awake, alert, manager forms II-XII nml as tested Skin: ecchymosis, mottled (feet) Lymphatic: no anterior cervical selin, no axillary Results Pertinent Lab Results: Laboratory Tests 07/19 07/19 07/19 1158 1020 1020 Blood Gas pH (7.35 - 7.45 PH) 7.34 L pCO2 (35 - 45 TORR) 42 pO2 (80 - 100 TORR) 98 HCO3 (21 - 28 MEQ/L) 23 ABG O2 Sat (Measured) (>96.0 %) 96.0 Carboxyhemoglobin (1.5 - 5.0 %) 0.4 L O2 Concentration % 60% Temperature (97.0 - 100.0 FARH) 97.4 Respiration Rate (BPM) 26 O2 Delivery Method BIPAP Vent Mode ST Expiratory Pressure (CM H2O P) 6 Inspiratory Pressure (CM H2O P) 18 Chemistry Sodium (137 - 145 mmol/L) 144 Potassium (3.5 - 5.1 mmol/L) 5.0 Chloride (98 - 107 mmol/L) 109 H Carbon Dioxide (22 - 30 mmol/L) 25 Anion Gap (5 - 16) 10 BUN (7 - 17 mg/dL) 43 H Creatinine (0.5 - 1.0 mg/dL) 1.7 H Estimated GFR (>60 ml/min) 29 L Glucose (65 - 99 mg/dL) 102 H Lactic Acid (0.7 - 2.1 mmol/L) 1.2 Calcium (8.4 - 10.2 mg/dL) 9.3 Phosphorus (2.5 - 4.5 mg/dL) 5.5 H Magnesium (1.6 - 2.3 mg/dL) 2.0 Total Bilirubin (0.2 - 1.3 mg/dL) 0.5 AST (14 - 36 U/L) 23 ALT (9 - 52 U/L) 28 Troponin I (< 0.11 ng/ml) 0.53 *H Albumin (3.5 - 5.0 g/dL) 2.8 L Coagulation PT (9.4 - 12.5 SEC) 12.7 H INR (0.90 - 1.19) 1.16 Hematology CBC w Diff NO MAN DIFF REQ WBC (4.8 - 10.8 /CUMM) 16.9 H RBC (4.20 - 5.40 /CUMM) 3.65 L Hgb (12.0 - 16.0 G/DL) 10.9 L Hct (37 - 47 %) 33.2 L MCV (81.0 - 99.0 FL) 91.0 MCH (27.0 - 31.0 PG) 30.0 MCHC (33.0 - 37.0 G/DL) 32.9 L RDW (11.5 - 14.5 %) 16.9 H Plt Count (130 - 400 /CUMM) 388 MPV (7.4 - 10.4 FL) 7.7 Gran % (42.2 - 75.2 %) 66.6 Lymphocytes % (20.5 - 51.1 %) 25.3 Monocytes % (1.7 - 9.3 %) 5.5 Eosinophils % (0 - 5 %) 2.1 Basophils % (0.0 - 2.0 %) 0.5 Absolute Granulocytes (1.4 - 6.5 /CUMM) 11.3 H Absolute Lymphocytes (1.2 - 3.4 /CUMM) 4.3 H Absolute Monocytes (0.10 - 0.60 /CUMM) 0.9 H Absolute Eosinophils (0.0 - 0.7 /CUMM) 0.3 Absolute Basophils (0.0 - 0.2 /CUMM) 0.1 Miscellaneous Phlebotomy Draw Site RIGHT RADIAL 07/19 07/19 07/19 0945 0921 0025 Blood Gas pH (7.35 - 7.45 PH) 7.08 *L pCO2 (35 - 45 TORR) 81 *H pO2 (80 - 100 TORR) 82 HCO3 (21 - 28 MEQ/L) 24 ABG O2 Sat (Measured) (>96.0 %) 90.0 L Carboxyhemoglobin (1.5 - 5.0 %) 0.4 L O2 Concentration % 7L O2 Delivery Method N/C Chemistry Troponin I (< 0.11 ng/ml) 0.49 *H Coagulation D-Dimer High Sensitivty Cancelled Miscellaneous Phlebotomy Draw Site RIGHT RADIAL 07/19 07/18 0025 1759 Chemistry Lactic Acid (0.7 - 2.1 mmol/L) 0.7 Troponin I (< 0.11 ng/ml) 0.40 *H Hematology CBC w Diff NO MAN DIFF REQ WBC (4.8 - 10.8 /CUMM) 6.1 RBC (4.20 - 5.40 /CUMM) 2.10 L Hgb (12.0 - 16.0 G/DL) 6.4 *L Hct (37 - 47 %) 19.2 *L MCV (81.0 - 99.0 FL) 91.4 MCH (27.0 - 31.0 PG) 30.7 MCHC (33.0 - 37.0 G/DL) 33.6 RDW (11.5 - 14.5 %) 16.3 H Plt Count (130 - 400 /CUMM) 186 MPV (7.4 - 10.4 FL) 8.1 Gran % (42.2 - 75.2 %) 70.7 Lymphocytes % (20.5 - 51.1 %) 21.5 Monocytes % (1.7 - 9.3 %) 6.3 Eosinophils % (0 - 5 %) 1.2 Basophils % (0.0 - 2.0 %) 0.3 Absolute Granulocytes (1.4 - 6.5 /CUMM) 4.3 Absolute Lymphocytes (1.2 - 3.4 /CUMM) 1.3 Absolute Monocytes (0.10 - 0.60 /CUMM) 0.4 Absolute Eosinophils (0.0 - 0.7 /CUMM) 0.1 Absolute Basophils (0.0 - 0.2 /CUMM) 0 07/18 07/18 1532 1155 Chemistry Sodium (137 - 145 mmol/L) 142 Potassium (3.5 - 5.1 mmol/L) 4.7 Chloride (98 - 107 mmol/L) 109 H Carbon Dioxide (22 - 30 mmol/L) 25 Anion Gap (5 - 16) 8 BUN (7 - 17 mg/dL) 49 H Creatinine (0.5 - 1.0 mg/dL) 1.7 H Estimated GFR (>60 ml/min) 29 L BUN/Creatinine Ratio (7 - 25 %) 28.8 H Glucose (65 - 99 mg/dL) 81 Calcium (8.4 - 10.2 mg/dL) 9.2 Magnesium (1.6 - 2.3 mg/dL) 2.1 Total Bilirubin (0.2 - 1.3 mg/dL) 0.3 AST (14 - 36 U/L) 16 ALT (9 - 52 U/L) 27 Alkaline Phosphatase (<127 U/L) 81 Troponin I (< 0.11 ng/ml) 0.43 *H Ntl-N-Doogefkcuym Pept (<125 pg/mL) 7740 H Total Protein (6.3 - 8.2 g/dL) 4.7 L Albumin (3.5 - 5.0 g/dL) 2.2 L Globulin (1.9 - 4.2 gm/dL) 2.5 Albumin/Globulin Ratio (1.1 - 2.2 %) 0.9 L Hematology CBC w Diff NO MAN DIFF REQ WBC (4.8 - 10.8 /CUMM) 7.6 RBC (4.20 - 5.40 /CUMM) 2.73 L Hgb (12.0 - 16.0 G/DL) 8.3 L Hct (37 - 47 %) 25.3 L MCV (81.0 - 99.0 FL) 92.5 MCH (27.0 - 31.0 PG) 30.3 MCHC (33.0 - 37.0 G/DL) 32.7 L RDW (11.5 - 14.5 %) 17.1 H Plt Count (130 - 400 /CUMM) 219 MPV (7.4 - 10.4 FL) 8.1 Gran % (42.2 - 75.2 %) 86.4 H Lymphocytes % (20.5 - 51.1 %) 10.2 L Monocytes % (1.7 - 9.3 %) 2.3 Eosinophils % (0 - 5 %) 0.7 Basophils % (0.0 - 2.0 %) 0.4 Absolute Granulocytes (1.4 - 6.5 /CUMM) 6.6 H Absolute Lymphocytes (1.2 - 3.4 /CUMM) 0.8 L Absolute Monocytes (0.10 - 0.60 /CUMM) 0.2 Absolute Eosinophils (0.0 - 0.7 /CUMM) 0.1 Absolute Basophils (0.0 - 0.2 /CUMM) 0 04/27 0920 Coagulation PT (9.4 - 12.5 SEC) 25.9 H INR (0.90 - 1.19) 2.36 H APTT (25 - 37 SEC) 39 H Hematology CBC w Diff NO MAN DIFF REQ WBC (4.8 - 10.8 /CUMM) 7.4 RBC (4.20 - 5.40 /CUMM) 2.79 L Hgb (12.0 - 16.0 G/DL) 8.5 L Hct (37 - 47 %) 25.6 L MCV (81.0 - 99.0 FL) 91.9 MCH (27.0 - 31.0 PG) 30.4 MCHC (33.0 - 37.0 G/DL) 33.0 RDW (11.5 - 14.5 %) 16.4 H Plt Count (130 - 400 /CUMM) 228 MPV (7.4 - 10.4 FL) 8.0 Gran % (42.2 - 75.2 %) 75.4 H Lymphocytes % (20.5 - 51.1 %) 15.5 L Monocytes % (1.7 - 9.3 %) 6.6 Eosinophils % (0 - 5 %) 2.1 Basophils % (0.0 - 2.0 %) 0.4 Absolute Granulocytes (1.4 - 6.5 /CUMM) 5.6 Absolute Lymphocytes (1.2 - 3.4 /CUMM) 1.2 Absolute Monocytes (0.10 - 0.60 /CUMM) 0.5 Absolute Eosinophils (0.0 - 0.7 /CUMM) 0.2 Absolute Basophils (0.0 - 0.2 /CUMM) 0 Imaging/Other Studies: cxr: The lungs are hypoinflated. There is a small moderate right pleural effusion, slightly increased from prior. Small left pleural effusion is similar to prior. There is associated opacification of the mid to basilar right lung and left lung base which may reflect atelectasis. No pneumothorax is seen. There is mild prominence of the central vasculature. The cardiac silhouette appears prominent, grossly similar to prior. Calcification is present at the aortic arch. No acute osseous findings are seen. IMPRESSION: Mild prominence of the central vasculature, which may reflect congestion without overt edema. Mildly increased small to moderate right pleural effusion; persistent small left pleural effusion. Regions of adjacent bilateral opacity may reflect atelectasis. US SUPERFICIAL IMAGING, EXTREMITY CLINICAL INFORMATION: Pain and swelling COMPARISON: None TECHNIQUE: Targeted ultrasound color Doppler FINDINGS: Notable subcutaneous infiltration and edema with a complex fluid collection measuring 3 x 3.8 x 0.9 cm with surrounding hyperemia. There is some vascularity within the septations. No other focal lesion. IMPRESSION: Complex fluid collection as above subcutaneously at the site of patient's symptoms within the right lower extremity. Appearance is nonspecific. This could represent infection or potentially a necrotic lesion including hematoma. Correlate clinically. MRI may be obtained as clinically warranted. Assessment/Plan Assessment/Recommendations Assessment: 1. CKD: severe, stage 4, due to chronic glomerulopathy of uncertain cause as well as prob HTN nephrosclerosis & previous MARVEL/ATN. At baseline GFR despite cardiac cath earlier this month & no renal replacement indication. Hi risk for ATN if requires Agram & would hold ACEI in anticipation. Also concern for atheroembolic dx given lower extremity livedo reticularis post recent cath. 2. CHF: volume overload in setting of transfusion; no objection to diuresis as needed & as tolerated. 3. Resp Acid: acute; improved w noninvasive ventilation & no indication for bicarb supplement Recommendations: 1. Lasix as needed 2. Hold lisinopril 3. d/c fenofibrate 4. No objection to Ca channel miranda if needed for BP control
--- NOTE | 2017-07-19 15:23 | Event Note ---
Event Note Event Note: Spoke with Dr. Ordoñez regarding the CT abdomen with Contrast suggested by GI( for high suspicion of ischemic colitis) but per nephro pt is at very high risk of ATN and would not give her contrast at this time. If needed can obtain a dry CT abdomen.
[2017-07-19 15:35] LABS: ABSOLUTE BASOPHIL COUNT 0.1 /CUMM (0.0-0.2); ABSOLUTE EOSINOPHIL COUNT 0.1 /CUMM (0.0-0.7); ABSOLUTE GRANULOCYTE CT 12.8 /CUMM (1.4-6.5); ABSOLUTE LYMPH COUNT 1.1 /CUMM (1.2-3.4); ABSOLUTE MONOCYTE COUNT 0.9 /CUMM (0.10-0.60); BASOPHIL % 0.4 % (0.0-2.0); EOSINOPHIL % 0.9 % (0-5); MEAN CORPUSCULAR HGB 29.8 PG (27.0-31.0); MEAN CORPUSCULAR HGB CONC 32.8 G/DL (33.0-37.0); MEAN CORPUSCULAR VOLUME 90.8 FL (81.0-99.0); MEAN PLATELET VOLUME 7.6 FL (7.4-10.4); PLATELET COUNT 229 /CUMM (130-400); RBC DISTRIBUTION WIDTH 16.9 % (11.5-14.5); RED BLOOD CELL CT 3.31 /CUMM (4.20-5.40); WHITE BLOOD CELL COUNT 15.1 /CUMM (4.8-10.8)
[2017-07-19 15:55] LABS: GRANULOCYTE % 85.3 % (42.2-75.2)
[2017-07-19 16:00] VITALS: BP 120/68
[2017-07-19 21:35] LABS: ABSOLUTE BASOPHIL COUNT 0 /CUMM (0.0-0.2); ABSOLUTE EOSINOPHIL COUNT 0.1 /CUMM (0.0-0.7); ABSOLUTE GRANULOCYTE CT 10.9 /CUMM (1.4-6.5); ABSOLUTE LYMPH COUNT 1.1 /CUMM (1.2-3.4); ABSOLUTE MONOCYTE COUNT 0.5 /CUMM (0.10-0.60); BASOPHIL % 0.3 % (0.0-2.0); EOSINOPHIL % 0.9 % (0-5); HEMATOCRIT 26.9 % (37-47); MEAN CORPUSCULAR HGB CONC 33.3 G/DL (33.0-37.0); MEAN CORPUSCULAR VOLUME 89.8 FL (81.0-99.0); MEAN PLATELET VOLUME 7.5 FL (7.4-10.4); PLATELET COUNT 201 /CUMM (130-400); RBC DISTRIBUTION WIDTH 16.5 % (11.5-14.5); RED BLOOD CELL CT 2.99 /CUMM (4.20-5.40); WHITE BLOOD CELL COUNT 12.7 /CUMM (4.8-10.8)
[2017-07-19 22:00] VITALS: BP 124/56
--- NOTE | 2017-07-19 22:44 | Cons- General Surgery ---
General Information and HPI Consulting Request Date of Consult: 07/19/17 Requested By: Lucien Zuniga MD History of Present Illness: CC: eval for ischemic bowel HPI: History limited because the patient is rather somnolent, family's at the bedside for reference as well as the chart. 76-year-old ex-smoker nondiabetic with multiple medical problems including renal failure sleep apnea pneumonia and pleural effusions and chronic anemia, multiple GI bleeds, attributed in the past to hemorrhoids small bowel AVM Emiliano erosions, she is also on chronic steroids for rheumatoid arthritis, CHF recently (06-25-17) underwent an LAD stent for stenosis was placed on ASA Plavix. Recently she was also on Xarelto for DVT that was stopped because of recurrent GI bleeding. This is her fourth admission this month this time for blood noted in her colostomy, and shortness of breath and fatigue she is in the ICU she's been transfused consult was called to evaluate for ischemic bowel. She says she has some mild abdominal discomfort it's not focal. She denies any nausea or any vomiting. PFSH and ROS were reviewed Family history positive for Crohn's disease negative for GI malignancy Family adds that patient is normally very alert and knows her situation. Allergies/Medications Allergies: Coded Allergies: Penicillins (SWELLING, RASH, ITCH 07/18/17) cephalexin (From KEFLEX) (ITCHY 07/18/17) chocolate flavor (HEADACHE/MIGRAINE 07/18/17) codeine (ITCH 07/18/17) levofloxacin (From LEVAQUIN) (RASH 07/18/17) oxaprozin (From DAYPRO) (RASH 07/18/17) propoxyphene (UNKNOWN REACTION TO DARVOCET 07/18/17) Home Med List: Aspirin (Aspirin*) 81 MG TAB.CHEW 1 TAB PO DAILY Heart health Butalb/Acetaminophen/Caffeine (Dlmwlj-Whepkbkj-Pftv 50-325-40) 50 MG-325 MG-40 MG TABLET 1 TAB PO BID PRN migrain (Reported) Calcium Carbonate/Vitamin D3 (Os-Mehdi 500+D3 Caplet) 500 MG-200 TABLET 1 TAB PO DAILY SUPPLEMENT (Reported) Carvedilol 25 MG TABLET 1 TAB PO BID HEART/BP (Reported) Clopidogrel Bisulfate (Plavix) 75 MG TABLET 1 TAB PO DAILY HEART HEALTH ( Reported) Cyclobenzaprine HCl 5 MG TABLET 1 TAB PO TIDPRN PRN muscle spasms (Reported) Docusate Sodium 100 MG CAPSULE 1 CAP PO DAILY constipation (Reported) Ergocalciferol (Vitamin D2) (Vitamin D2) 50,000 UNIT CAPSULE 1 CAP PO QWED SUPPLEMENT (Reported) Fenofibrate,Micronized (Fenofibrate) 200 MG CAPSULE 1 CAP PO DAILY TG ( Reported) Ferrous Gluconate (Unknown Strength) TABLET (Unknown Dose) PO DAILY SUPPLEMENT (Reported) Furosemide (Lasix) 20 MG TABLET 1 TAB PO DAILY DIURETIC (Reported) Gabapentin 100 MG CAPSULE 1 CAP PO Q8 Neuropathy Levothyroxine Sodium 25 MCG TABLET 1 TAB PO DAILY AC THYROID (Reported) Lisinopril 10 MG TABLET 1 TAB PO QAM BP (Reported) Metoclopramide HCl (Reglan) 10 MG TABLET 1 TAB PO TID for nausea (Reported) 30 minutes before meals and bedtime Nitroglycerin (Nitroglycerin Patch) 0.4 MG/HOUR PATCH.TD24 1 PATCH TOP DAILY Heart health Potassium Chloride (Klor-Con 10) (Unknown Strength) TABLET.ER (Unknown Dose) PO DAILY SUPPLEMENT (Reported) Prednisone 10 MG TABLET 1 TAB PO QAM STEROID (Reported) Sennosides/Docusate Sodium (Senna Plus Tablet) 8.6 MG-50 MG TABLET 1 TAB PO DAILY NEEDED PRN CONSTIPATION . Sertraline HCl 25 MG TABLET 1 TAB PO QAM MENTAL HEALTH (Reported) Tramadol HCl 50 MG TABLET 1 TAB PO Q6 PRN PAIN SCALE 7-10 (SEVERE) Current Medications: I reviewed Current Medications Sig/Rick Start time Last Medication Dose Route Stop Time Status Admin Acetaminophen 650 MG Q6P PRN 07/19 1415 AC 07/19 PO 2026 Albuterol Sulfate 3 ML Q4P PRN 07/19 1245 AC INH Aspirin 81 MG DAILY 07/19 1319 AC 07/19 PO 1541 Carvedilol 25 MG BID 07/18 2100 DC 07/19 PO 0841 Ceftriaxone Sodium 1,000 MG DAILY 07/19 1721 DC IV Ciprofloxacin 400 MG DAILY@1800 07/19 1800 AC 07/19 Dextrose/Water 200 ML IV 1935 Clopidogrel Bisulfate 75 MG DAILY 07/19 1320 AC 07/19 PO 1541 Fenofibrate 145 MG DAILY 07/19 0900 DC 07/19 PO 0841 Ferrous Gluconate 325 MG TID 07/18 2100 AC 07/19 PO 202 Furosemide 40 MG ONCE ONE 07/19 1000 DC 07/19 IV 07/19 1001 1001 Furosemide 20 MG ONCE ONE 07/19 0930 DC 07/19 IV 07/19 0931 0946 Furosemide 20 MG ONCE ONE 07/19 0715 DC 07/19 IV 07/19 0716 0853 Gabapentin 100 MG Q8 07/18 2200 AC 07/19 PO 202 Levothyroxine Sodium 0.025 MG DAILY AC 07/19 0700 AC 07/19 PO 0543 Lisinopril 10 MG QAM 07/19 0900 DC 07/19 PO 0841 Metronidazole 500 MG IQ8 07/19 1730 AC 07/19 N/A 1 UNIT IV 1822 Pantoprazole Sodium 40 MG BID 07/18 1351 AC 07/19 IV 2027 Polyethylene Glycol 0.5 GAL 1800,0400 07/19 0400 DC PO 07/19 0401 Polyethylene Glycol 0.5 GAL 2000,0400 07/18 2000 DC 07/19 PO 07/19 0401 0400 Sertraline HCl 25 MG QAM 07/19 0900 AC 07/19 PO 0841 Sodium Chloride 1,000 ML .Q10H 07/18 1345 DC 07/18 IV 1656 Tramadol HCl 50 MG ONCE ONE 07/19 0045 DC 07/19 PO 07/19 0046 0052 Past History Medical History Blood Transfusion Hx: Yes Neurological: migraine EENT: cataracts Cardiovascular: CHF, hypertension, hyperlipidemia Respiratory: pneumonia Gastrointestinal: diverticulitis, HEMORRHOIDS Hepatic: NONE Renal: 3+PROTEIN IN URINE G-[id number] Musculoskeletal: rheumatoid arthritis Psychiatric: anxiety, depression, insomnia Endocrine: vitamin D deficiency Blood Disorders: anemia Cancer(s): NONE WOMEN SPECIALIST/Reproductive: NONE Surgical History Pertinent Surgical History: colon resection, hysterectomy, laminectomy Family History Relations & Conditions If Any: Relation not specified for: *No pertinent family history Psychosocial History Services at Home: Serv[employer] Primary Language: Thai Smoking Status: Former Smoker ETOH Use: denies use Illicit Drug Use: denies illicit drug use Functional Ability Ambulation: cane IADLs Needs Assist: shopping, housework, food prep. Review of Systems Review of Systems: Limited from patient gotten from the chart and family Constitutional: No fever, sweats or weight loss ENMT: No sore throat Cardiovascular: No chest pain, palpitations but there is leg swelling Respiratory: As above GI: No GERD or bleeding per rectum : No dysuria or hematuria Musculoskeletal: No new muscle weakness, bone or joint pain Skin / Breast: No jaundice, rashes or itching Psychiatric: No history of drug or alcohol abuse no depression or anxiety Hematologic / lymphatic system: As above Exam & Diagnostic Data Vital Signs and I&O I reviewed Vital Signs Date Time Temp Pulse Resp B/P B/P Pulse O2 O2 Flow FiO2 Mean Ox Delivery Rate 07/19 2224 66 95 07/19 2015 68 94 07/19 1650 65 98 07/19 1600 97.6 83 26 120/68 94 Room Air 07/19 1600 94 BIPAP 60% 07/19 1317 64 94 07/19 1223 BIPAP 60% 07/19 1200 93 BIPAP 60% 07/19 1200 97.4 68 26 122/60 93 BIPAP 60% 07/19 1008 88 93 07/19 1000 90 BIPAP 60% 07/19 1000 98.6 97 26 224/90 90 BIPAP 90% 07/19 0841 64 152/68 07/19 0841 64 152/68 07/19 0200 97.8 64 20 152/68 92 Room Air 07/19 0121 Room Air 07/18 2308 98.1 64 16 136/56 93 Room Air I reviewed Intake & Output 07/19 1600 07/19 0800 07/19 0000 07/18 1600 07/18 0800 07/18 0000 Intake Total 65 750 1101 480 Output Total 800 700 900 600 Balance -735 50 201 -120 Intake, Blood 450 1 Product Intake, IV 15 100 Intake, Oral 50 300 1000 480 Output, Stool 200 700 600 200 Output, Urine 600 300 400 Patient 146 lb Weight Weight Reported by Patient Measurement Method Physical Exam: Constitutional: pleasant, no acute distress, minimally conversant Eyes: sclera anicteric ENMT: ears and nose atraumatic, moist mucous membranes, good dentition, no lip lesions Neck: Supple, trachea is midline, no cervical or supraclavicular adenopathy and no palpable thyromegaly Cardiovascular: S1, S2, no murmurs, no peripheral edema Respiratory: clear to auscultation with normal respiratory effort and no intercostal retractions GI: abdomen soft, she says she is mildly tender all over her abdomen, as I palpate moderately no rebound or guarding, nondistended, no palpable hepatosplenomegaly Ostomy is viable and pink patent. Extremities / lymphatics: symmetrically warm, free range of motion no peripheral edema, no cervical, supraclavicular, axillary, or inguinal adenopathy Musculoskeletal: Did not evaluate gait and station, no digital cyanosis, good muscle strength and tone no atrophy, motor grossly 5 out of 5 throughout Skin: no jaundice, no rashes warm, nondiaphoretic, no areas of erythema or induration Psychiatric: mood and affect are appropriate and alert and oriented to person place and time Last 24 Hours of Labs: I reviewed Laboratory Tests 07/19 07/19 2100 1450 Chemistry Troponin I (< 0.11 ng/ml) 0.91 *H 0.70 *H Hematology CBC w Diff NO MAN DIFF REQ NO MAN DIFF REQ WBC (4.8 - 10.8 /CUMM) 12.7 H 15.1 H RBC (4.20 - 5.40 /CUMM) 2.99 L 3.31 L Hgb (12.0 - 16.0 G/DL) 9.0 L 9.8 L Hct (37 - 47 %) 26.9 L 30.0 L MCV (81.0 - 99.0 FL) 89.8 90.8 MCH (27.0 - 31.0 PG) 30.0 29.8 MCHC (33.0 - 37.0 G/DL) 33.3 32.8 L RDW (11.5 - 14.5 %) 16.5 H 16.9 H Plt Count (130 - 400 /CUMM) 201 229 MPV (7.4 - 10.4 FL) 7.5 7.6 Gran % (42.2 - 75.2 %) 86.0 H 85.3 H Lymphocytes % (20.5 - 51.1 %) 9.0 L 7.5 L Monocytes % (1.7 - 9.3 %) 3.8 5.9 Eosinophils % (0 - 5 %) 0.9 0.9 Basophils % (0.0 - 2.0 %) 0.3 0.4 Absolute Granulocytes (1.4 - 6.5 /CUMM) 10.9 H 12.8 H Absolute Lymphocytes (1.2 - 3.4 /CUMM) 1.1 L 1.1 L Absolute Monocytes (0.10 - 0.60 /CUMM) 0.5 0.9 H Absolute Eosinophils (0.0 - 0.7 /CUMM) 0.1 0.1 Absolute Basophils (0.0 - 0.2 /CUMM) 0 0.1 07/19 07/19 07/19 1158 1020 1020 Blood Gas pH (7.35 - 7.45 PH) 7.34 L pCO2 (35 - 45 TORR) 42 pO2 (80 - 100 TORR) 98 HCO3 (21 - 28 MEQ/L) 23 ABG O2 Sat (Measured) (>96.0 %) 96.0 Carboxyhemoglobin (1.5 - 5.0 %) 0.4 L O2 Concentration % 60% Temperature (97.0 - 100.0 FARH) 97.4 Respiration Rate (BPM) 26 O2 Delivery Method BIPAP Vent Mode ST Expiratory Pressure (CM H2O P) 6 Inspiratory Pressure (CM H2O P) 18 Chemistry Sodium (137 - 145 mmol/L) 144 Potassium (3.5 - 5.1 mmol/L) 5.0 Chloride (98 - 107 mmol/L) 109 H Carbon Dioxide (22 - 30 mmol/L) 25 Anion Gap (5 - 16) 10 BUN (7 - 17 mg/dL) 43 H Creatinine (0.5 - 1.0 mg/dL) 1.7 H Estimated GFR (>60 ml/min) 29 L Glucose (65 - 99 mg/dL) 102 H Lactic Acid (0.7 - 2.1 mmol/L) 1.2 Calcium (8.4 - 10.2 mg/dL) 9.3 Phosphorus (2.5 - 4.5 mg/dL) 5.5 H Magnesium (1.6 - 2.3 mg/dL) 2.0 Total Bilirubin (0.2 - 1.3 mg/dL) 0.5 AST (14 - 36 U/L) 23 ALT (9 - 52 U/L) 28 Troponin I (< 0.11 ng/ml) 0.53 *H Albumin (3.5 - 5.0 g/dL) 2.8 L Coagulation PT (9.4 - 12.5 SEC) 12.7 H INR (0.90 - 1.19) 1.16 Hematology CBC w Diff NO MAN DIFF REQ WBC (4.8 - 10.8 /CUMM) 16.9 H RBC (4.20 - 5.40 /CUMM) 3.65 L Hgb (12.0 - 16.0 G/DL) 10.9 L Hct (37 - 47 %) 33.2 L MCV (81.0 - 99.0 FL) 91.0 MCH (27.0 - 31.0 PG) 30.0 MCHC (33.0 - 37.0 G/DL) 32.9 L RDW (11.5 - 14.5 %) 16.9 H Plt Count (130 - 400 /CUMM) 388 MPV (7.4 - 10.4 FL) 7.7 Gran % (42.2 - 75.2 %) 66.6 Lymphocytes % (20.5 - 51.1 %) 25.3 Monocytes % (1.7 - 9.3 %) 5.5 Eosinophils % (0 - 5 %) 2.1 Basophils % (0.0 - 2.0 %) 0.5 Absolute Granulocytes (1.4 - 6.5 /CUMM) 11.3 H Absolute Lymphocytes (1.2 - 3.4 /CUMM) 4.3 H Absolute Monocytes (0.10 - 0.60 /CUMM) 0.9 H Absolute Eosinophils (0.0 - 0.7 /CUMM) 0.3 Absolute Basophils (0.0 - 0.2 /CUMM) 0.1 Miscellaneous Phlebotomy Draw Site RIGHT RADIAL 07/19 07/19 07/19 07/19 0945 0921 0600 0025 Blood Gas pH (7.35 - 7.45 PH) 7.08 *L pCO2 (35 - 45 TORR) 81 *H pO2 (80 - 100 TORR) 82 HCO3 (21 - 28 MEQ/L) 24 ABG O2 Sat (Measured) (>96.0 %) 90.0 L Carboxyhemoglobin (1.5 - 5.0 %) 0.4 L O2 Concentration % 7L O2 Delivery Method N/C Chemistry Sodium Cancelled Potassium Cancelled Chloride Cancelled Carbon Dioxide Cancelled Anion Gap Cancelled BUN Cancelled Creatinine Cancelled BUN/Creatinine Ratio Cancelled Troponin I (< 0.11 ng/ml) Cancelled 0.49 *H Coagulation D-Dimer High Sensitivty Cancelled Hematology CBC w Diff Cancelled WBC Cancelled RBC Cancelled Hgb Cancelled Hct Cancelled MCV Cancelled MCH Cancelled MCHC Cancelled RDW Cancelled Plt Count Cancelled MPV Cancelled Miscellaneous Phlebotomy Draw Site RIGHT RADIAL 07/19 0025 Chemistry Lactic Acid (0.7 - 2.1 mmol/L) 0.7 Hematology CBC w Diff NO MAN DIFF REQ WBC (4.8 - 10.8 /CUMM) 6.1 RBC (4.20 - 5.40 /CUMM) 2.10 L Hgb (12.0 - 16.0 G/DL) 6.4 *L Hct (37 - 47 %) 19.2 *L MCV (81.0 - 99.0 FL) 91.4 MCH (27.0 - 31.0 PG) 30.7 MCHC (33.0 - 37.0 G/DL) 33.6 RDW (11.5 - 14.5 %) 16.3 H Plt Count (130 - 400 /CUMM) 186 MPV (7.4 - 10.4 FL) 8.1 Gran % (42.2 - 75.2 %) 70.7 Lymphocytes % (20.5 - 51.1 %) 21.5 Monocytes % (1.7 - 9.3 %) 6.3 Eosinophils % (0 - 5 %) 1.2 Basophils % (0.0 - 2.0 %) 0.3 Absolute Granulocytes (1.4 - 6.5 /CUMM) 4.3 Absolute Lymphocytes (1.2 - 3.4 /CUMM) 1.3 Absolute Monocytes (0.10 - 0.60 /CUMM) 0.4 Absolute Eosinophils (0.0 - 0.7 /CUMM) 0.1 Absolute Basophils (0.0 - 0.2 /CUMM) 0 Assessment/Plan Assessment/Plan Studies cross-sectional abdominal imaging done recently Impression is recurrent GI bleed this time related to antiplatelet therapy for a stent. Patient is relatively hemodynamically stable she does not have peritoneal signs or worsening acidosis I doubt mesenteric ischemia but recommend abdominal imaging to look at her bowel and colon. I appreciate the concern for sedation and intubation but if it is possible she should be scoped to see if can find the source of bleeding which at times can be controlled right then. Problem List: 1. GI bleed 2. Coagulopathy 3. Zzypx-ed-riysnim kidney injury 4. Acute blood loss anemia 5. GI bleed Consult Acknowledgment - Thank you for your consult request.
--- NOTE | 2017-07-20 00:44 | Event Note ---
Event Note Event Note: Spoke to Dr. Sanchez regarding patient's continued rise in troponin. No significant ST or T wave changes. Patient is currently resting comfortably in bed, on BIPAP, in no acute distress. Patient denies chest pain. At this time, will continue to trend EKG and troponin.
[2017-07-20 03:34] LABS: ABSOLUTE BASOPHIL COUNT 0.1 /CUMM (0.0-0.2); ABSOLUTE EOSINOPHIL COUNT 0.2 /CUMM (0.0-0.7); ABSOLUTE GRANULOCYTE CT 7.6 /CUMM (1.4-6.5); ABSOLUTE LYMPH COUNT 1.3 /CUMM (1.2-3.4); ABSOLUTE MONOCYTE COUNT 0.6 /CUMM (0.10-0.60); BASOPHIL % 0.5 % (0.0-2.0); EOSINOPHIL % 1.7 % (0-5); GRANULOCYTE % 78.4 % (42.2-75.2); HEMATOCRIT 25.5 % (37-47); MEAN CORPUSCULAR HGB 29.4 PG (27.0-31.0); MEAN CORPUSCULAR HGB CONC 32.6 G/DL (33.0-37.0); MEAN CORPUSCULAR VOLUME 90.1 FL (81.0-99.0); MEAN PLATELET VOLUME 7.6 FL (7.4-10.4); PLATELET COUNT 188 /CUMM (130-400); RBC DISTRIBUTION WIDTH 16.9 % (11.5-14.5); RED BLOOD CELL CT 2.83 /CUMM (4.20-5.40); WHITE BLOOD CELL COUNT 9.6 /CUMM (4.8-10.8)
[2017-07-20 08:00] VITALS: BP 122/60
--- NOTE | 2017-07-20 08:09 | RADIOLOGY REPORT ---
EXAMINATION: XR PORTABLE CHEST CLINICAL INFORMATION: Worsening shortness of breath. COMPARISON: Prior chest radiographs, most recently 07/19/2017. TECHNIQUE: Portable frontal view of the chest was obtained. FINDINGS: There is stable cardiomegaly. There is atherosclerotic change of the aortic knob. There is pulmonary vascular congestion. There is persistent airspace disease in the mid and lower right lung field. There is increased patchy airspace disease in the left perihilar region and base. There are moderate right and small to moderate left pleural effusions. No pneumothorax is seen. There is no acute osseous abnormality. There are degenerative changes of the shoulders. IMPRESSION: 1. There is cardiomegaly and pulmonary vascular congestion. 2. There is patchy airspace disease in the mid and lower lung wolfe, with interim increase on the left. 3. There are moderate right and small to moderate left pleural effusions.
--- NOTE | 2017-07-20 08:39 | PN- Resident CRCU ---
Morgan CURTIS,Ba 07/20/17 0839: Subjective HPI/CRCU Issues: Acute hypoxic hypercarbic respiratory failure, secondary to fluid overload; Lower GI bleeding I followed up and examined the patient today. She is resting comfortably in bed , alert, not in distress, did not require BiPAP this morning. Later on, we tried high flow nasal cannula, to which the patient tolerated for a few hours but was changed to BiPAP again given her ongoing subjective shortness of breath. She has not had any bright red blood in the colostomy bag, hematemesis, any obvious bleeding otherwise. Vital signs stable, with systolic blood pressure in 110-120s mostly, and one reading of manual SBP 200, which when she had headache and as short of breath and no ther symptoms. BiPAP was started and her BP was all WNL. She has clearly expressed wishes not to pursue surgical procedures and interventios that would involve her intubation. She is on clear liquid diet now, and will be prepped ONLY in the morning with 0.5 gal GoLytely for colonscopy through the colostomy site in the morning. She has to remain NPO AFTER finishing GoLytely tomorrow. No NPO from MN required per GI. Objective Vital Signs & I&O Last 8 Hrs of Vitals and I&O: Vital Signs Date Time Temp Pulse Resp B/P B/P Pulse O2 O2 Flow FiO2 Mean Ox Delivery Rate 07/20 1641 89 95 07/20 1600 95 BIPAP 30% 07/20 1600 98.7 77 26 200/80 95 BIPAP 30% 07/20 1400 62 98 07/20 1203 61 98 07/20 1201 97 BIPAP 30% 07/20 1200 98 BIPAP 30% 07/20 0920 70 96 07/20 0832 62 96 07/20 0800 97 BIPAP 35% 07/20 0800 98.3 62 24 122/60 97 BIPAP 35% 07/20 0631 62 97 07/20 0400 96 BIPAP 35% 07/20 0353 63 97 07/20 0051 78 96 07/20 0000 95 BIPAP 35% 07/19 2224 66 95 07/19 2200 98.3 64 26 124/56 95 BIPAP 35% 07/19 2014 68 94 07/20 1999 100 BIPAP 60% Exam General Appearance: well developed/nourished, no apparent distress, alert, awake , comfortable, on nasal canula (morning), obese Other Physical Findings: Head: atraumatic, normal appearance Neck: normal inspection Respiratory: breath sound better today, no accessory muscle use, b/l crackles+, didn't had to use BiPAP this AM, comfortable on high-flow O2 for few hrs today Cardiovascular: regular rate/rhythm, BP stable (except for one manual read of SBP 200) Gastrointestinal: soft, non-tender, colostomy bag in situ (Left side of abdomen) . Ext: right santana anteriorly has swelling ~2x3 cm, warm but not erythematous Current Medications: Current Medications Sig/Rick Start time Last Medication Dose Route Stop Time Status Admin Acetaminophen 1,000 MG ONCE ONE 07/20 1045 DC 07/20 N/A 1 UNIT IV 07/20 1059 1052 Acetaminophen 650 MG .STK-MED ONE 07/20 0620 DC PO 07/20 0621 Acetaminophen 650 MG Q6P PRN 07/19 1415 AC 07/20 PO 0624 Albuterol Sulfate 3 ML Q4P PRN 07/19 1245 AC INH Aspirin 81 MG DAILY 07/19 1319 AC 07/20 PO 0848 Ciprofloxacin 400 MG DAILY@1800 07/19 1800 AC 07/20 Dextrose/Water 200 ML IV 1747 Clopidogrel Bisulfate 75 MG DAILY 07/19 1320 AC 07/20 PO 0848 Ferrous Gluconate 325 MG TID 07/18 2100 AC 07/20 PO 1327 Gabapentin 100 MG Q8 07/18 2200 AC 07/20 PO 1327 Hydromorphone HCl 2 MG Q8 07/20 1400 AC 07/20 PO 1327 Levothyroxine Sodium 0.025 MG DAILY AC 07/19 0700 AC 07/20 PO 0615 Metronidazole 500 MG Q8H 07/20 0200 AC 07/20 N/A 1 UNIT IV 1747 Metronidazole 500 MG IQ8 07/19 1730 DC 07/19 N/A 1 UNIT IV 1822 Pantoprazole Sodium 40 MG BID 07/18 1351 AC 07/20 IV 0848 Polyethylene Glycol 0.5 GAL ONCE ONE 07/21 0500 AC PO 07/21 0501 Sertraline HCl 25 MG QAM 07/19 0900 AC 07/20 PO 0849 Impression/Plan Impression/Problem List Impression: 76-year-old female with a history of anxiety/depression, rheumatoid arthritis on chronic steroid therapy, previous deep venous thrombosis on chronic anticoagulation with Xarelto (Currently on hold), obesity, obstructive sleep apnea on CPAP, chronic anemia, hypertension, left ventricular hypertrophy with diastolic dysfunction, and aortic regurgiatation who presented to the ED on 07/18/2017 with complaints of jane 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 She was recently discharged on 07/11/17, after been treated for acute on chronic diastolic CHF, was on xeralto that was stopped due to anemia with dropping H&H and positive Guaiac during her last admission after discussion of risks and benefits with the patient. She was also hospitalized at (06/23-07/02/2017) with symptomatic anemia and modest troponin I elevation, requiring transfusion 2 with no obvious etiology for the bleeding documented and with the plan for an outpatient pill cam. She additionally had evidence of acute on chronic kidney injury, and was seen in consultation by nephrology and gradually improved from that standpoint. Finally , given concerns about underlying coronary artery disease, she was transferred to [facility] where she underwent cardiac catheterization on 07/02/2017 that revealed: LM- patent, LAD- long vessel wrapping around the apex with a ~70% proximal stenosis, LCx- 60% ostial M1, and RCA- dominant and patent, & LV gram- not done. She was admitted to telemetry floor, received 2 units blood transfusion and 2 units FFP as her INR was found to be elevated to 2.36, in the setting with active GI bleeding through the colostomy bag, patient was seen by GI who recommended colonoscopy through ostomy. Cardiology is agreeable to continue dual antiplatelet therapy given recent stent, and keep a close eye on H/H and to transfuse to keep Hgb >8.0. She had small but serial rise in troponin without any ischemic EKG changes or chest pain/discomfort. This was likely demand ischemia per elevator supervisor. She had an episode of fluid overload and now is better after diuresis. Plan Respiratory: * Will continue Bipap PRN, while trying to wean it off * No plan for intubation per patient request * TRC/NEBs as needed Infectious Diseases: * Keep the head of the bed elevated for aspiration precaution * On IV abx per GI for colitis * Monitor for any fever * Watch right santana for any infection Cardiovascular: * Elevated troponin consistent with type II IL * Continue to trend trop and EKG in the morning * Repeat limited Echo to assess cardiac function and look for wall motion abnormality, given then trending trops * Monitor BP, HR * F/U elevator supervisor recommendation * Continue dual antiplatelet therapy * Continue to hold lisinopril * Continue Lasix as needed Hematology: * No anticoagulation * Serial H&H q12 hr and transfuse for Hb<8 * Colonoscopy through ostomy tomorrow after prep per GI recs Metabolic: * Repeat ICU lab bundle at am for creatinine and electrolytes Alimentary: * Clear liquid diet for now Neurological: * She is alert, better than yesterday, no more lethargic * Monitor for focal neurological deficit or altered mental status Pain: Checked CTPMP today. Patient takes 4 mg PO dilaudid for pain usually, so was started on lower dose of 2 mg PO q8hr for now, given her respiratory status. Will reassess tomorrow if this is adequate or even necessary. Diet: Clear liquid diet DVT/Prophylaxis: mechanical Code Status: Do Not Resucitate/Intubat Problem List: 1. GI bleed Pain Ratin Pain Location: headache Pain Plan: prn, tylenol, dilaudid PO Tomorrow's Labs & Rationales: CBC q12h for Gi bleed; ICU lab bundle in AM Plan DVT/Prophylaxis: mechanical Code Status: Do Not Resucitate/Intubat Lucien Zuniga MD 07/20/17 0917: Attending MD Review Statement Attending Sign Off Attending Cosign Statement: I have: examined this patient, reviewed [email or web address] EMR data, personally reviewd images, discussd w/resident/PA/CIVIL STRUCTURAL ENGINEER, discussed mgmt plan w/amie, discussed mgmt plan w/CM, discussed mgmt plan w/pt, agreed w/resident/PA/CIVIL STRUCTURAL ENGINEER, amended to note. Other Findings: Impression 76 year old woman * acute hypoxemic and hypercarbic respiratory failure improving, likely secondary to fluid overload/blood transfusions * acute blood loss anemia/gi bleeding Plan Respiratory -trial off bipap, if does well, can remain on fio2 to support spo2 >92% -bipap prn dyspnea ID -monitor -aspiration precautions -on cipro and flagyl CVS/Heme -f/u cardiology -per cardio and GI - pt remains on asa, plavix, will monitor for any significant further bleeding -f/u GI -LE dopplers do not show DVT - has an anterior right santana lesion -surgical consultation is appreciated -patient is evaluating her goals of care and how aggressive her management will be Metabolic -ins/outs -creatinine -electrolytes Alimentary -diet per GI Neuro -monitor closely DVT prophylaxis at all times TTS 40 min DNR/DNI
[2017-07-20 09:53] LABS: ABSOLUTE BASOPHIL COUNT 0 /CUMM (0.0-0.2); ABSOLUTE EOSINOPHIL COUNT 0.2 /CUMM (0.0-0.7); ABSOLUTE GRANULOCYTE CT 6.7 /CUMM (1.4-6.5); ABSOLUTE LYMPH COUNT 1.1 /CUMM (1.2-3.4); ABSOLUTE MONOCYTE COUNT 0.5 /CUMM (0.10-0.60); BASOPHIL % 0.6 % (0.0-2.0); HEMATOCRIT 26.1 % (37-47); MEAN CORPUSCULAR HGB 29.9 PG (27.0-31.0); MEAN CORPUSCULAR VOLUME 90.6 FL (81.0-99.0); MEAN PLATELET VOLUME 7.6 FL (7.4-10.4); PLATELET COUNT 183 /CUMM (130-400); RBC DISTRIBUTION WIDTH 16.9 % (11.5-14.5); RED BLOOD CELL CT 2.88 /CUMM (4.20-5.40); WHITE BLOOD CELL COUNT 8.5 /CUMM (4.8-10.8)
--- NOTE | 2017-07-20 14:58 | PN- Cardiology ---
Subjective Subjective: Clinically, the patient appears about the same to me today. No new cardiac symptoms noted. Objective Vital Signs and I&Os Vital Signs Date Time Temp Pulse Resp B/P B/P Pulse O2 O2 Flow FiO2 Mean Ox Delivery Rate 07/20 1400 62 98 07/20 1203 61 98 07/20 1201 97 BIPAP 30% 07/20 1200 98 BIPAP 30% 07/20 0920 70 96 07/20 0832 62 96 07/20 0800 97 BIPAP 35% 07/20 0800 98.3 62 24 122/60 97 BIPAP 35% 07/20 0631 62 97 07/20 0400 96 BIPAP 35% 07/20 0353 63 97 07/20 0051 78 96 07/20 0000 95 BIPAP 35% 07/19 2224 66 95 07/19 2200 98.3 64 26 124/56 95 BIPAP 35% 07/19 2015 68 94 07/19 2000 100 BIPAP 60% 07/19 1650 65 98 07/19 1600 97.6 83 26 120/68 94 Room Air 07/19 1600 94 BIPAP 60% Intake & Output 07/20 1600 07/20 0800 07/20 0000 07/19 1600 07/19 0800 07/19 0000 Intake Total 770 200 65 750 1101 Output Total 225 406 800 700 900 Balance 545 -206 -735 50 201 Intake, Blood 450 1 Product Intake, IV 270 100 15 100 Intake, Oral 500 100 50 300 1000 Output, Stool 75 50 200 700 600 Output, Urine 150 356 600 300 Patient 146 lb Weight Physical Exam: General Appearance: Thin elderly female, lethargic but arousable, on BiPAP Head: normal HEENT: Normal Neck: supple, JVP normal, carotid upstrokes normal bilaterally, no masses or thyromegaly Respiratory: chest non-tender, bilateral rhonchi Cardiovascular: regular rate/rhythm, normal S1, S2, no audible murmur Abdomen: normal bowel sounds, soft, non-tender Extremities: normal inspection, no edema Vascular: Pulses are 2+ and equal bilaterally Neurologic: Grossly normal/nonfocal Current Medications: Current Medications Sig/Rick Start time Last Medication Dose Route Stop Time Status Admin Acetaminophen 1,000 MG ONCE ONE 07/20 1045 DC 07/20 N/A 1 UNIT IV 07/20 1059 1052 Acetaminophen 650 MG .STK-MED ONE 07/20 0620 DC PO 07/20 0621 Acetaminophen 650 MG Q6P PRN 07/19 1415 AC 07/20 PO 0624 Albuterol Sulfate 3 ML Q4P PRN 07/19 1245 AC INH Aspirin 81 MG DAILY 07/19 1319 AC 07/20 PO 0848 Ceftriaxone Sodium 1,000 MG DAILY 07/19 1721 DC IV Ciprofloxacin 400 MG DAILY@1800 07/19 1800 AC 07/19 Dextrose/Water 200 ML IV 1935 Clopidogrel Bisulfate 75 MG DAILY 07/19 1320 AC 07/20 PO 0848 Ferrous Gluconate 325 MG TID 07/18 2100 AC 07/20 PO 1327 Gabapentin 100 MG Q8 07/18 2200 AC 07/20 PO 1327 Hydromorphone HCl 2 MG Q8 07/20 1400 AC 07/20 PO 1327 Levothyroxine Sodium 0.025 MG DAILY AC 07/19 0700 AC 07/20 PO 0615 Metronidazole 500 MG Q8H 07/20 0200 AC 07/20 N/A 1 UNIT IV 0848 Metronidazole 500 MG IQ8 07/19 1730 DC 07/19 N/A 1 UNIT IV 1822 Pantoprazole Sodium 40 MG BID 07/18 1351 AC 07/20 IV 0848 Polyethylene Glycol 0.5 GAL ONCE ONE 07/21 0500 AC PO 07/21 0501 Sertraline HCl 25 MG QAM 07/19 0900 AC 07/20 PO 0849 Results Last 48 Hrs of Labs/Mics: Laboratory Tests 07/20/17 0930: Troponin I 1.01 *H, CBC w Diff NO MAN DIFF REQ, RBC 2.88 L, MCV 90.6, MCH 29.9, MCHC 33.0, RDW 16.9 H, MPV 7.6, Gran % 79.0 H, Lymphocytes % 12.6 L, Monocytes % 5.8, Eosinophils % 2.0, Basophils % 0.6, Absolute Granulocytes 6.7 H, Absolute Lymphocytes 1.1 L, Absolute Monocytes 0.5, Absolute Eosinophils 0.2 , Absolute Basophils 0 07/20/17 0310: Troponin I 0.97 *H 07/20/17 0310: Anion Gap 8, Estimated GFR 27 L, Glucose 60 L, Calcium 8.8, Phosphorus 4.6 H, Magnesium 1.8, Total Bilirubin 0.4, AST 18, ALT 26, Albumin 2.0 L, CBC w Diff NO MAN DIFF REQ, RBC 2.83 L, MCV 90.1, MCH 29.4, MCHC 32.6 L, RDW 16.9 H, MPV 7.6, Gran % 78.4 H, Lymphocytes % 13.3 L, Monocytes % 6.1, Eosinophils % 1.7, Basophils % 0.5, Absolute Granulocytes 7.6 H, Absolute Lymphocytes 1.3, Absolute Monocytes 0.6, Absolute Eosinophils 0.2, Absolute Basophils 0.1 07/19/17 2100: Troponin I 0.91 *H, CBC w Diff NO MAN DIFF REQ, RBC 2.99 L, MCV 89.8, MCH 30.0, MCHC 33.3, RDW 16.5 H, MPV 7.5, Gran % 86.0 H, Lymphocytes % 9.0 L, Monocytes % 3.8, Eosinophils % 0.9, Basophils % 0.3, Absolute Granulocytes 10.9 H, Absolute Lymphocytes 1.1 L, Absolute Monocytes 0.5, Absolute Eosinophils 0.1, Absolute Basophils 0 07/19/17 1450: Troponin I 0.70 *H, CBC w Diff NO MAN DIFF REQ, RBC 3.31 L, MCV 90.8, MCH 29.8, MCHC 32.8 L, RDW 16.9 H, MPV 7.6, Gran % 85.3 H, Lymphocytes % 7.5 L, Monocytes % 5.9, Eosinophils % 0.9, Basophils % 0.4, Absolute Granulocytes 12.8 H, Absolute Lymphocytes 1.1 L, Absolute Monocytes 0.9 H, Absolute Eosinophils 0.1, Absolute Basophils 0.1 07/19/17 1158: pH 7.34 L, pCO2 42, pO2 98, HCO3 23, ABG O2 Sat (Measured) 96.0, Carboxyhemoglobin 0.4 L, O2 Concentration % 60%, Temperature 97.4, Respiration Rate 26, O2 Delivery Method BIPAP, Vent Mode ST, Expiratory Pressure 6, Inspiratory Pressure 18, Phlebotomy Draw Site RIGHT RADIAL 07/19/17 1020: Lactic Acid 1.2 07/19/17 1020: Anion Gap 10, Estimated GFR 29 L, Glucose 102 H, Calcium 9.3, Phosphorus 5.5 H, Magnesium 2.0, Total Bilirubin 0.5, AST 23, ALT 28, Troponin I 0.53 *H, Albumin 2.8 L, PT 12.7 H, INR 1.16, CBC w Diff NO MAN DIFF REQ, RBC 3.65 L, MCV 91.0, MCH 30.0, MCHC 32.9 L, RDW 16.9 H, MPV 7.7, Gran % 66.6, Lymphocytes % 25.3, Monocytes % 5.5, Eosinophils % 2.1, Basophils % 0.5, Absolute Granulocytes 11.3 H, Absolute Lymphocytes 4.3 H, Absolute Monocytes 0.9 H, Absolute Eosinophils 0.3, Absolute Basophils 0.1 07/19/17 0945: pH 7.08 *L, pCO2 81 *H, pO2 82, HCO3 24, ABG O2 Sat (Measured) 90.0 L, Carboxyhemoglobin 0.4 L, O2 Concentration % 7L, O2 Delivery Method N/C, Phlebotomy Draw Site RIGHT RADIAL 07/19/17 0921: D-Dimer High Sensitivty Cancelled 07/19/17 0600: Sodium Cancelled, Potassium Cancelled, Chloride Cancelled, Carbon Dioxide Cancelled, Anion Gap Cancelled, BUN Cancelled, Creatinine Cancelled, BUN/ Creatinine Ratio Cancelled, Troponin I Cancelled, CBC w Diff Cancelled, WBC Cancelled, RBC Cancelled, Hgb Cancelled, Hct Cancelled, MCV Cancelled, MCH Cancelled, MCHC Cancelled, RDW Cancelled, Plt Count Cancelled, MPV Cancelled 07/19/17 0025: Troponin I 0.49 *H 07/19/17 0025: Lactic Acid 0.7, CBC w Diff NO MAN DIFF REQ, RBC 2.10 L, MCV 91.4, MCH 30.7, MCHC 33.6, RDW 16.3 H, MPV 8.1, Gran % 70.7, Lymphocytes % 21.5, Monocytes % 6.3, Eosinophils % 1.2, Basophils % 0.3, Absolute Granulocytes 4.3, Absolute Lymphocytes 1.3, Absolute Monocytes 0.4, Absolute Eosinophils 0.1, Absolute Basophils 0 07/18/17 1759: Troponin I 0.40 *H 07/18/17 1532: CBC w Diff NO MAN DIFF REQ, RBC 2.73 L, MCV 92.5, MCH 30.3, MCHC 32.7 L, RDW 17.1 H, MPV 8.1, Gran % 86.4 H, Lymphocytes % 10.2 L, Monocytes % 2.3, Eosinophils % 0.7, Basophils % 0.4, Absolute Granulocytes 6.6 H, Absolute Lymphocytes 0.8 L, Absolute Monocytes 0.2, Absolute Eosinophils 0.1, Absolute Basophils 0 Microbiology 07/19 1005 GI: Surveillance Culture - COMP 07/19 1000 UPPER RESP: Surveillance Culture - COMP Assessment/Plan Assessment/Plan Assessment: 1. GI bleed with anemia 2. Elevated troponin consistent with type II LA-the troponin has slowly risen to 1.01 over the last 48 hours. Follow-up pending. No significant ECG changes or symptoms. 3. History of coronary artery disease, status post LAD stent in June 2017 4. History of DVT previously on Eliquis 5. Obstructive sleep apnea 6. Hypertension 7. Lower extremity edema; possible HFpEF 8. Chronic renal insufficiency stage IV Her conditions: -Continue current supportive care -CODE STATUS changes noted -As per nephrology, okay to continue Lasix as needed. Lisinopril held -As per Dr. Martin of the GI service, okay to restart Plavix and aspirin. -Maintain telemetry monitoring for now. -Follow-up labs pending. Continue to track troponin until decreasing -Follow-up ECG in the morning -Follow-up limited echocardiogram to reassess left ventricular wall motion pending Continue telemetry? Yes
[2017-07-20 16:00] VITALS: BP 200/80
[2017-07-20 22:00] VITALS: BP 112/42
[2017-07-20 23:56] LABS: ABSOLUTE BASOPHIL COUNT 0 /CUMM (0.0-0.2); ABSOLUTE EOSINOPHIL COUNT 0.2 /CUMM (0.0-0.7); ABSOLUTE GRANULOCYTE CT 5.5 /CUMM (1.4-6.5); ABSOLUTE LYMPH COUNT 0.9 /CUMM (1.2-3.4); ABSOLUTE MONOCYTE COUNT 0.5 /CUMM (0.10-0.60); BASOPHIL % 0.4 % (0.0-2.0); EOSINOPHIL % 2.2 % (0-5); GRANULOCYTE % 78.1 % (42.2-75.2); HEMATOCRIT 25.2 % (37-47); MEAN CORPUSCULAR HGB 30.6 PG (27.0-31.0); MEAN CORPUSCULAR VOLUME 90.1 FL (81.0-99.0); MEAN PLATELET VOLUME 7.8 FL (7.4-10.4); PLATELET COUNT 169 /CUMM (130-400); RBC DISTRIBUTION WIDTH 16.3 % (11.5-14.5); RED BLOOD CELL CT 2.79 /CUMM (4.20-5.40); WHITE BLOOD CELL COUNT 7.1 /CUMM (4.8-10.8)
[2017-07-21 06:46] LABS: ABSOLUTE BASOPHIL COUNT 0 /CUMM (0.0-0.2); ABSOLUTE EOSINOPHIL COUNT 0.2 /CUMM (0.0-0.7); ABSOLUTE GRANULOCYTE CT 5.3 /CUMM (1.4-6.5); ABSOLUTE LYMPH COUNT 0.9 /CUMM (1.2-3.4); ABSOLUTE MONOCYTE COUNT 0.4 /CUMM (0.10-0.60); BASOPHIL % 0.4 % (0.0-2.0); EOSINOPHIL % 2.8 % (0-5); GRANULOCYTE % 77.9 % (42.2-75.2); HEMATOCRIT 24.5 % (37-47); MEAN CORPUSCULAR HGB CONC 33.1 G/DL (33.0-37.0); MEAN CORPUSCULAR VOLUME 90.8 FL (81.0-99.0); PLATELET COUNT 172 /CUMM (130-400); RBC DISTRIBUTION WIDTH 16.8 % (11.5-14.5); WHITE BLOOD CELL COUNT 6.8 /CUMM (4.8-10.8)
--- NOTE | 2017-07-21 07:21 | PN- Resident CRCU ---
Elder CURTIS,[facility] 07/21/17 0721: Subjective HPI/CRCU Issues: # Acute blood loss anemia likely secondary to GI bleeding , ?? Ischemic colitis # Acute hypoxic and hypercarbic respiratory failure likely some fluid overload, on BiPAP # History of colonic perforation status post colostomy # History of hypertension # Type II AK # Marvel on CKD 24 Hour Events: Patient Alert and oriented x 3, Complaining of headache. Remains on BiPAP. She was supposed to go for a colonoscopy today but given her respiratory status was deferred until she is stable. Also she might need intubation for colonoscopy but she is DNR/DNI. Objective Vital Signs & I&O Last 8 Hrs of Vitals and I&O: Intake & Output 07/21 1600 Intake Total 780 Output Total 850 Balance -70 Intake, IV 140 Intake, Oral 640 Output, Stool 600 Output, Urine 250 Exam General Appearance: well developed/nourished, no apparent distress, alert, awake , comfortable, on BiPAP Head: atraumatic, normal appearance Respiratory: normal breath sounds, chest non-tender, crackles Cardiovascular: regular rate/rhythm Gastrointestinal: normal bowel sounds, soft, non-tender, Incision site intact Extremities: no edema, Swelling on the right the anterior santana, warm and erythematous but without any drainage. Cranial Nerves: normal hearing, normal speech, PERRL Current Medications: Current Medications Sig/Rick Start time Last Medication Dose Route Stop Time Status Admin Acetaminophen 650 MG .STK-MED ONE 07/21 0123 DC PO 07/21 0124 Acetaminophen 650 MG .STK-MED ONE 07/20 1941 DC PO 07/20 194 Acetaminophen 650 MG Q6P PRN 07/19 1415 AC 07/21 PO 0809 Albuterol Sulfate 3 ML Q4P PRN 07/19 1245 AC INH Aspirin 81 MG DAILY 07/19 1319 AC 07/20 PO 0848 Ciprofloxacin 400 MG DAILY@1800 07/19 1800 AC 07/20 Dextrose/Water 200 ML IV 1747 Clopidogrel Bisulfate 75 MG DAILY 07/19 1320 AC 07/20 PO 0848 Ferrous Gluconate 325 MG TID 07/18 2100 AC 07/21 PO 1312 Gabapentin 100 MG Q8 07/18 2200 AC 07/21 PO 1312 Hydromorphone HCl 2 MG Q8 07/20 1400 AC 07/21 PO 1313 Levothyroxine Sodium 0.025 MG DAILY AC 07/19 0700 AC 07/21 PO 0613 Metronidazole 500 MG Q8H 07/20 0200 AC 07/21 N/A 1 UNIT IV 0857 Pantoprazole Sodium 40 MG BID 07/18 1351 AC 07/21 IV 0857 Polyethylene Glycol 0.5 GAL ONCE ONE 07/21 0500 DC 07/21 PO 07/21 0501 0516 Sertraline HCl 25 MG QAM 07/19 0900 AC 07/21 PO 1312 Impression/Plan Impression/Problem List Impression: 76-year-old female with a history of anxiety/depression, rheumatoid arthritis on chronic steroid therapy, previous deep venous thrombosis on chronic anticoagulation with Xarelto (Currently on hold), obesity, obstructive sleep apnea on CPAP, chronic anemia, hypertension, left ventricular hypertrophy with diastolic dysfunction, and aortic regurgiatation who presented to the ED on 07/18/2017 with complaints of 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 She was recently discharged on 07/11/17, after been treated for acute on chronic diastolic CHF, was on xeralto that was stopped due to anemia with dropping H&H and positive Guaiac during her last admission after discussion of risks and benefits with the patient. She was also hospitalized at (06/23-07/02/2017) with symptomatic anemia and modest troponin I elevation, requiring transfusion 2 with no obvious etiology for the bleeding documented and with the plan for an outpatient pill cam. She additionally had evidence of acute on chronic kidney injury, and was seen in consultation by nephrology and gradually improved from that standpoint. Finally , given concerns about underlying coronary artery disease, she was transferred to [facility] where she underwent cardiac catheterization on 07/02/2017 that revealed: LM- patent, LAD- long vessel wrapping around the apex with a ~70% proximal stenosis, LCx- 60% ostial M1, and RCA- dominant and patent, & LV gram- not done. She was admitted to telemetry floor, received 2 units blood transfusion and 2 units FFP as her INR was found to be elevated to 2.36, in the setting with active GI bleeding through the colostomy bag, patient was seen by GI who recommended colonoscopy through ostomy. Cardiology is agreeable to continue dual antiplatelet therapy given recent stent, and keep a close eye on H/H and to transfuse to keep Hgb >8.0. On 07/19 she was transferred to ICU for acute hypoxic and hypercarbic respiratory failure like secondary to fluid overload and was started on BiPAP. Plan Respiratory: Patient was transferred from telemetry floor because of acute hypoxic and hypercarbic respiratory failure. Initial ABGs showed a pH of 7.08 and PCO2 of 81 , repeat ABG on BiPAP showed improved pH of 7.34 and PCO2 of 41. Chest x-ray at that time showed signs of fluid overload. * Will continue Bipap PRN, while trying to wean it off * No plan for intubation per patient request * TRC/NEBs as needed * Lasix as needed for fluid overload Infectious Diseases: * Keep the head of the bed elevated for aspiration precaution * On IV abx per GI for ?? Ischemic colitis * Monitor for any fever * Watch right santana for any infection(per the patient she noticed it after the cardiac catheterization) Cardiovascular: 1. Type II AK; patient has baseline elevated troponin levels ranging from 0.40- 0.50 likely due to CKD, but started trending up with a peak at 1.10. No new EKG changes or chest pain. * Repeat limited Echo to assess cardiac function and look for wall motion abnormality, given the uptrending trops; Pending * Monitor BP, HR * F/U customer counter representative recommendation * Continue dual antiplatelet therapy(given recent cardiac catheterization and stent placement) * Continue to hold lisinopril * Continue Lasix as needed Hematology: 1. Acute blood loss anemia likely secondary to GI bleeding , ?? Ischemic colitis; she presented with jane blood in her colostomy bag since one day before her admission. She received 2 units of blood transfusion with improvement in her H&H to 10.9/33.2 and was scheduled for a colonoscopy on 07/19 but was different because of her acute worsening of the respiratory status requiring BiPAP. Her H&H continues to drop down slighly every day. She was prepared for colonoscopy again on 07/21 but was canceled again due to similar reasons. Will reattempt colonoscopy once the patient's respiratory status is more stable. There was also high suspicion for ischemic colitis given the abdominal pain and bleeding starting after the cardiac catheterization; surgical consult was obtained for that reason but suggested that the GI bleeding is likely in the setting of dual antiplatelet therapy that the patient was started on after the cardiac catheterization. CTA abdomen was considered but could not be obtained as patient is a very high risk for ATN per nephro given patient has stage IV CKD and presented with a MARVEL on CKD with a creatinine of 1.7. * No anticoagulation * Serial H&H q12 hr and transfuse for Hb<8 * Colonoscopy through ostomy once patient is stable. * Appreciate GI recommendations * Appreciate general surgery recommendations Metabolic: 1. MARVEL on CKD; patient has stage IV kidney disease and presented with a creatinine of 1.7. Nephrology consult obtained. * Continue to monitor creatinine, currently trending up. * Repeat creatinine level in a.m. * Follow-up nephrology recommendations. 2. Electrolyte abnormalities; * Continue to monitor and replete accordingly. Alimentary: * Clear liquid diet for now Neurological: * She is alert, better than yesterday, no more lethargic * Monitor for focal neurological deficit or altered mental status Pain: Checked CTPMP today. Patient takes 4 mg PO dilaudid for pain usually, so was started on lower dose of 2 mg PO q8hr for now, given her respiratory status. Will reassess if this is adequate or even necessary. Diet: Clear liquid diet DVT/Prophylaxis: mechanical Code Status: Do Not Resucitate/Intubat Problem List: 1. GI bleed 2. [id number] kidney injury 3. Acute respiratory failure Pain Ratin Pain Location: Headache Pain Goal: Remain pain free Pain Plan: Pain Pathway Tomorrow's Labs & Rationales: CBC ICU Bundle Plan DVT/Prophylaxis: mechanical Code Status: Do Not Resucitate/Intubat Lucien Zuniga MD 07/21/17 1231: Attending MD Review Statement Attending Sign Off Attending Cosign Statement: I have: examined this patient, [facility], personally reviewd images, discussd w/resident/PA/HOME THEATRE TECHNICIAN, discussed mgmt plan w/amie, discussed mgmt plan w/CM, discussed mgmt plan w/pt, agreed w/resident/PA/HOME THEATRE TECHNICIAN, amended to note. Other Findings: Impression 76 year old woman * acute hypoxemic and hypercarbic respiratory failure improving, likely secondary to fluid overload/blood transfusions * acute blood loss anemia/gi bleeding Plan Respiratory -trial off bipap, if does well, can remain on fio2 to support spo2 >92% -bipap prn dyspnea ID -monitor -aspiration precautions -on cipro and flagyl CVS/Heme -f/u cardiology -per cardio and GI - pt remains on asa, plavix, will monitor for any significant further bleeding -f/u GI -LE dopplers do not show DVT - has an anterior right santana lesion -surgical consultation is appreciated -patient is evaluating her goals of care and how aggressive her management will be Metabolic -ins/outs -creatinine -electrolytes Alimentary -NPO per GI Neuro -monitor closely DVT prophylaxis at all times TTS 35 min DNR/DNI Patient is thinking about her overall goals of care.
[2017-07-21 08:00] VITALS: BP 154/50
--- NOTE | 2017-07-21 14:00 | PN- Gastroenterology ---
Assessment/Plan GI Assessment/Recommendations: ASSESSMENT: 1. Acute GI Blood Loss 2. Hypoxic Respiratory Failure 3. Hematochezia 4. Rheumatoid Arthritis 5. COPD 6. CHF 7. CAD, s/p Stent Placement one week ago, on Plavix 8. Chronic use of Anti-platelet Agent RECOMMENDATIONS: 1. Will defer endoscopy through stoma until patient is stable from a cardiorespiratory point of view. I have discussed this with Ms. Corona and she is agreeable to waiting. She understands that having anesthesia in the setting of respiratory distress is in advisable. Will continue to follow her until she is more stable for colonoscopy and possible upper endoscopy. 2. Continue to monitor serial H/H and transfuse as needed 3. Continue Anti-platelet agent given recent coronary artery stent placement Subjective Subjective: Patient is on BiPAP. Remains too unstable to have colonoscopy through ostomy. Is alert and conversant. However remained extremely short of breath. Objective Vital Signs and I&Os Vital Signs Date Time Temp Pulse Resp B/P B/P Pulse O2 O2 Flow FiO2 Mean Ox Delivery Rate 07/21 1200 98 BIPAP 30% 07/21 0915 61 98 07/21 0908 98 Nasal 40% Cannula 07/21 0907 78 98 07/21 0800 97 BIPAP 30% 07/21 0800 98.7 60 20 154/50 97 BIPAP 30% 07/21 0640 61 99 07/21 0347 96 BIPAP 30% 07/21 0300 58 96 07/21 0030 59 98 07/21 0000 97 BIPAP 30% 07/20 2200 98.4 61 26 112/42 95 BIPAP 30% 07/20 2145 56 96 07/20 2000 97 BIPAP 30% 07/20 1900 59 96 07/20 1641 89 95 07/20 1600 95 BIPAP 30% 07/20 1600 98.7 77 26 200/80 95 BIPAP 30% 07/20 1400 62 98 Intake & Output 07/21 1600 07/21 0400 07/20 1600 07/20 0400 07/19 1600 07/19 0400 Intake Total 2100 580 770 210 316 9962 Output Total 390 300 832 443 0748 1100 Balance 1710 280 759 -206 485 1 Intake, Blood 450 1 Product Intake, IV 100 340 270 100 15 100 Intake, Oral 2000 240 500 656 870 3230 Output, Stool 75 50 75 50 700 800 Output, Urine 315 250 150 356 600 300 Patient 146 lb Weight Physical Exam General Appearance: alert, awake, mild distress, moderate distress Respiratory: wheezing Abdomen: normal bowel sounds, soft, dark blood in ostomy Neurologic/Psychiatric: awake, alert Current Medications: Current Medications Sig/Rick Start time Last Medication Dose Route Stop Time Status Admin Acetaminophen 650 MG .STK-MED ONE 07/21 0123 DC PO 07/21 0124 Acetaminophen 650 MG .STK-MED ONE 07/20 1941 DC PO 07/20 1942 Acetaminophen 650 MG Q6P PRN 07/19 1415 AC 07/21 PO 0809 Albuterol Sulfate 3 ML Q4P PRN 07/19 1245 AC INH Aspirin 81 MG DAILY 07/19 1319 AC 07/20 PO 0848 Ciprofloxacin 400 MG DAILY@1800 07/19 1800 AC 07/20 Dextrose/Water 200 ML IV 1747 Clopidogrel Bisulfate 75 MG DAILY 07/19 1320 AC 07/20 PO 0848 Ferrous Gluconate 325 MG TID 07/18 2100 AC 07/21 PO 1312 Gabapentin 100 MG Q8 07/18 2200 AC 07/21 PO 1312 Hydromorphone HCl 2 MG Q8 07/20 1400 AC 07/21 PO 1313 Levothyroxine Sodium 0.025 MG DAILY AC 07/19 0700 AC 07/21 PO 0613 Metronidazole 500 MG Q8H 07/20 0200 AC 07/21 N/A 1 UNIT IV 0857 Pantoprazole Sodium 40 MG BID 07/18 1351 AC 07/21 IV 0857 Polyethylene Glycol 0.5 GAL ONCE ONE 07/21 0500 DC 07/21 PO 07/21 0501 0516 Sertraline HCl 25 MG QAM 07/19 0900 AC 07/21 PO 1312 Results Pertinent Lab Results: Laboratory Tests 07/21 07/20 0430 2315 Chemistry Sodium (137 - 145 mmol/L) 141 Potassium (3.5 - 5.1 mmol/L) 4.0 Chloride (98 - 107 mmol/L) 109 H Carbon Dioxide (22 - 30 mmol/L) 26 Anion Gap (5 - 16) 6 BUN (7 - 17 mg/dL) 41 H Creatinine (0.5 - 1.0 mg/dL) 1.9 H Estimated GFR (>60 ml/min) 26 L Glucose (65 - 99 mg/dL) 81 Calcium (8.4 - 10.2 mg/dL) 8.9 Phosphorus (2.5 - 4.5 mg/dL) 4.0 Magnesium (1.6 - 2.3 mg/dL) 2.0 Total Bilirubin (0.2 - 1.3 mg/dL) 0.3 AST (14 - 36 U/L) 15 ALT (9 - 52 U/L) 25 Troponin I (< 0.11 ng/ml) 0.84 *H Albumin (3.5 - 5.0 g/dL) 1.8 L Hematology CBC w Diff NO MAN DIFF REQ NO MAN DIFF REQ WBC (4.8 - 10.8 /CUMM) 6.8 7.1 RBC (4.20 - 5.40 /CUMM) 2.70 L 2.79 L Hgb (12.0 - 16.0 G/DL) 8.1 L 8.6 L Hct (37 - 47 %) 24.5 L 25.2 L MCV (81.0 - 99.0 FL) 90.8 90.1 MCH (27.0 - 31.0 PG) 30.0 30.6 MCHC (33.0 - 37.0 G/DL) 33.1 34.0 RDW (11.5 - 14.5 %) 16.8 H 16.3 H Plt Count (130 - 400 /CUMM) 172 169 MPV (7.4 - 10.4 FL) 8.0 7.8 Gran % (42.2 - 75.2 %) 77.9 H 78.1 H Lymphocytes % (20.5 - 51.1 %) 12.6 L 12.8 L Monocytes % (1.7 - 9.3 %) 6.3 6.5 Eosinophils % (0 - 5 %) 2.8 2.2 Basophils % (0.0 - 2.0 %) 0.4 0.4 Absolute Granulocytes (1.4 - 6.5 /CUMM) 5.3 5.5 Absolute Lymphocytes (1.2 - 3.4 /CUMM) 0.9 L 0.9 L Absolute Monocytes (0.10 - 0.60 /CUMM) 0.4 0.5 Absolute Eosinophils (0.0 - 0.7 /CUMM) 0.2 0.2 Absolute Basophils (0.0 - 0.2 /CUMM) 0 0 07/20 07/20 07/20 1420 0930 0310 Chemistry Troponin I (< 0.11 ng/ml) 1.10 *H 1.01 *H 0.97 *H Hematology CBC w Diff NO MAN DIFF REQ WBC (4.8 - 10.8 /CUMM) 8.5 RBC (4.20 - 5.40 /CUMM) 2.88 L Hgb (12.0 - 16.0 G/DL) 8.6 L Hct (37 - 47 %) 26.1 L MCV (81.0 - 99.0 FL) 90.6 MCH (27.0 - 31.0 PG) 29.9 MCHC (33.0 - 37.0 G/DL) 33.0 RDW (11.5 - 14.5 %) 16.9 H Plt Count (130 - 400 /CUMM) 183 MPV (7.4 - 10.4 FL) 7.6 Gran % (42.2 - 75.2 %) 79.0 H Lymphocytes % (20.5 - 51.1 %) 12.6 L Monocytes % (1.7 - 9.3 %) 5.8 Eosinophils % (0 - 5 %) 2.0 Basophils % (0.0 - 2.0 %) 0.6 Absolute Granulocytes (1.4 - 6.5 /CUMM) 6.7 H Absolute Lymphocytes (1.2 - 3.4 /CUMM) 1.1 L Absolute Monocytes (0.10 - 0.60 /CUMM) 0.5 Absolute Eosinophils (0.0 - 0.7 /CUMM) 0.2 Absolute Basophils (0.0 - 0.2 /CUMM) 0 07/20 07/19 0310 2100 Chemistry Sodium (137 - 145 mmol/L) 141 Potassium (3.5 - 5.1 mmol/L) 4.4 Chloride (98 - 107 mmol/L) 108 H Carbon Dioxide (22 - 30 mmol/L) 24 Anion Gap (5 - 16) 8 BUN (7 - 17 mg/dL) 46 H Creatinine (0.5 - 1.0 mg/dL) 1.8 H Estimated GFR (>60 ml/min) 27 L Glucose (65 - 99 mg/dL) 60 L Calcium (8.4 - 10.2 mg/dL) 8.8 Phosphorus (2.5 - 4.5 mg/dL) 4.6 H Magnesium (1.6 - 2.3 mg/dL) 1.8 Total Bilirubin (0.2 - 1.3 mg/dL) 0.4 AST (14 - 36 U/L) 18 ALT (9 - 52 U/L) 26 Troponin I (< 0.11 ng/ml) 0.91 *H Albumin (3.5 - 5.0 g/dL) 2.0 L Hematology CBC w Diff NO MAN DIFF REQ NO MAN DIFF REQ WBC (4.8 - 10.8 /CUMM) 9.6 12.7 H RBC (4.20 - 5.40 /CUMM) 2.83 L 2.99 L Hgb (12.0 - 16.0 G/DL) 8.3 L 9.0 L Hct (37 - 47 %) 25.5 L 26.9 L MCV (81.0 - 99.0 FL) 90.1 89.8 MCH (27.0 - 31.0 PG) 29.4 30.0 MCHC (33.0 - 37.0 G/DL) 32.6 L 33.3 RDW (11.5 - 14.5 %) 16.9 H 16.5 H Plt Count (130 - 400 /CUMM) 188 201 MPV (7.4 - 10.4 FL) 7.6 7.5 Gran % (42.2 - 75.2 %) 78.4 H 86.0 H Lymphocytes % (20.5 - 51.1 %) 13.3 L 9.0 L Monocytes % (1.7 - 9.3 %) 6.1 3.8 Eosinophils % (0 - 5 %) 1.7 0.9 Basophils % (0.0 - 2.0 %) 0.5 0.3 Absolute Granulocytes (1.4 - 6.5 /CUMM) 7.6 H 10.9 H Absolute Lymphocytes (1.2 - 3.4 /CUMM) 1.3 1.1 L Absolute Monocytes (0.10 - 0.60 /CUMM) 0.6 0.5 Absolute Eosinophils (0.0 - 0.7 /CUMM) 0.2 0.1 Absolute Basophils (0.0 - 0.2 /CUMM) 0.1 0 07/19 07/19 07/19 1450 1158 1020 Blood Gas pH (7.35 - 7.45 PH) 7.34 L pCO2 (35 - 45 TORR) 42 pO2 (80 - 100 TORR) 98 HCO3 (21 - 28 MEQ/L) 23 ABG O2 Sat (Measured) (>96.0 %) 96.0 Carboxyhemoglobin (1.5 - 5.0 %) 0.4 L O2 Concentration % 60% Temperature (97.0 - 100.0 FARH) 97.4 Respiration Rate (BPM) 26 O2 Delivery Method BIPAP Vent Mode ST Expiratory Pressure (CM H2O P) 6 Inspiratory Pressure (CM H2O P) 18 Chemistry Lactic Acid (0.7 - 2.1 mmol/L) 1.2 Troponin I (< 0.11 ng/ml) 0.70 *H Hematology CBC w Diff NO MAN DIFF REQ WBC (4.8 - 10.8 /CUMM) 15.1 H RBC (4.20 - 5.40 /CUMM) 3.31 L Hgb (12.0 - 16.0 G/DL) 9.8 L Hct (37 - 47 %) 30.0 L MCV (81.0 - 99.0 FL) 90.8 MCH (27.0 - 31.0 PG) 29.8 MCHC (33.0 - 37.0 G/DL) 32.8 L RDW (11.5 - 14.5 %) 16.9 H Plt Count (130 - 400 /CUMM) 229 MPV (7.4 - 10.4 FL) 7.6 Gran % (42.2 - 75.2 %) 85.3 H Lymphocytes % (20.5 - 51.1 %) 7.5 L Monocytes % (1.7 - 9.3 %) 5.9 Eosinophils % (0 - 5 %) 0.9 Basophils % (0.0 - 2.0 %) 0.4 Absolute Granulocytes (1.4 - 6.5 /CUMM) 12.8 H Absolute Lymphocytes (1.2 - 3.4 /CUMM) 1.1 L Absolute Monocytes (0.10 - 0.60 /CUMM) 0.9 H Absolute Eosinophils (0.0 - 0.7 /CUMM) 0.1 Absolute Basophils (0.0 - 0.2 /CUMM) 0.1 Miscellaneous Phlebotomy Draw Site RIGHT RADIAL 07/19 07/19 1020 0945 Blood Gas pH (7.35 - 7.45 PH) 7.08 *L pCO2 (35 - 45 TORR) 81 *H pO2 (80 - 100 TORR) 82 HCO3 (21 - 28 MEQ/L) 24 ABG O2 Sat (Measured) (>96.0 %) 90.0 L Carboxyhemoglobin (1.5 - 5.0 %) 0.4 L O2 Concentration % 7L O2 Delivery Method N/C Chemistry Sodium (137 - 145 mmol/L) 144 Potassium (3.5 - 5.1 mmol/L) 5.0 Chloride (98 - 107 mmol/L) 109 H Carbon Dioxide (22 - 30 mmol/L) 25 Anion Gap (5 - 16) 10 BUN (7 - 17 mg/dL) 43 H Creatinine (0.5 - 1.0 mg/dL) 1.7 H Estimated GFR (>60 ml/min) 29 L Glucose (65 - 99 mg/dL) 102 H Calcium (8.4 - 10.2 mg/dL) 9.3 Phosphorus (2.5 - 4.5 mg/dL) 5.5 H Magnesium (1.6 - 2.3 mg/dL) 2.0 Total Bilirubin (0.2 - 1.3 mg/dL) 0.5 AST (14 - 36 U/L) 23 ALT (9 - 52 U/L) 28 Troponin I (< 0.11 ng/ml) 0.53 *H Albumin (3.5 - 5.0 g/dL) 2.8 L Coagulation PT (9.4 - 12.5 SEC) 12.7 H INR (0.90 - 1.19) 1.16 Hematology CBC w Diff NO MAN DIFF REQ WBC (4.8 - 10.8 /CUMM) 16.9 H RBC (4.20 - 5.40 /CUMM) 3.65 L Hgb (12.0 - 16.0 G/DL) 10.9 L Hct (37 - 47 %) 33.2 L MCV (81.0 - 99.0 FL) 91.0 MCH (27.0 - 31.0 PG) 30.0 MCHC (33.0 - 37.0 G/DL) 32.9 L RDW (11.5 - 14.5 %) 16.9 H Plt Count (130 - 400 /CUMM) 388 MPV (7.4 - 10.4 FL) 7.7 Gran % (42.2 - 75.2 %) 66.6 Lymphocytes % (20.5 - 51.1 %) 25.3 Monocytes % (1.7 - 9.3 %) 5.5 Eosinophils % (0 - 5 %) 2.1 Basophils % (0.0 - 2.0 %) 0.5 Absolute Granulocytes (1.4 - 6.5 /CUMM) 11.3 H Absolute Lymphocytes (1.2 - 3.4 /CUMM) 4.3 H Absolute Monocytes (0.10 - 0.60 /CUMM) 0.9 H Absolute Eosinophils (0.0 - 0.7 /CUMM) 0.3 Absolute Basophils (0.0 - 0.2 /CUMM) 0.1 Miscellaneous Phlebotomy Draw Site RIGHT RADIAL 07/19 07/19 07/19 0921 0600 0025 Chemistry Sodium Cancelled Potassium Cancelled Chloride Cancelled Carbon Dioxide Cancelled Anion Gap Cancelled BUN Cancelled Creatinine Cancelled BUN/Creatinine Ratio Cancelled Troponin I (< 0.11 ng/ml) Cancelled 0.49 *H Coagulation D-Dimer High Sensitivty Cancelled Hematology CBC w Diff Cancelled WBC Cancelled RBC Cancelled Hgb Cancelled Hct Cancelled MCV Cancelled MCH Cancelled MCHC Cancelled RDW Cancelled Plt Count Cancelled MPV Cancelled 07/19 07/18 0025 1759 Chemistry Lactic Acid (0.7 - 2.1 mmol/L) 0.7 Troponin I (< 0.11 ng/ml) 0.40 *H Hematology CBC w Diff NO MAN DIFF REQ WBC (4.8 - 10.8 /CUMM) 6.1 RBC (4.20 - 5.40 /CUMM) 2.10 L Hgb (12.0 - 16.0 G/DL) 6.4 *L Hct (37 - 47 %) 19.2 *L MCV (81.0 - 99.0 FL) 91.4 MCH (27.0 - 31.0 PG) 30.7 MCHC (33.0 - 37.0 G/DL) 33.6 RDW (11.5 - 14.5 %) 16.3 H Plt Count (130 - 400 /CUMM) 186 MPV (7.4 - 10.4 FL) 8.1 Gran % (42.2 - 75.2 %) 70.7 Lymphocytes % (20.5 - 51.1 %) 21.5 Monocytes % (1.7 - 9.3 %) 6.3 Eosinophils % (0 - 5 %) 1.2 Basophils % (0.0 - 2.0 %) 0.3 Absolute Granulocytes (1.4 - 6.5 /CUMM) 4.3 Absolute Lymphocytes (1.2 - 3.4 /CUMM) 1.3 Absolute Monocytes (0.10 - 0.60 /CUMM) 0.4 Absolute Eosinophils (0.0 - 0.7 /CUMM) 0.1 Absolute Basophils (0.0 - 0.2 /CUMM) 0 07/18 1532 Hematology CBC w Diff NO MAN DIFF REQ WBC (4.8 - 10.8 /CUMM) 7.6 RBC (4.20 - 5.40 /CUMM) 2.73 L Hgb (12.0 - 16.0 G/DL) 8.3 L Hct (37 - 47 %) 25.3 L MCV (81.0 - 99.0 FL) 92.5 MCH (27.0 - 31.0 PG) 30.3 MCHC (33.0 - 37.0 G/DL) 32.7 L RDW (11.5 - 14.5 %) 17.1 H Plt Count (130 - 400 /CUMM) 219 MPV (7.4 - 10.4 FL) 8.1 Gran % (42.2 - 75.2 %) 86.4 H Lymphocytes % (20.5 - 51.1 %) 10.2 L Monocytes % (1.7 - 9.3 %) 2.3 Eosinophils % (0 - 5 %) 0.7 Basophils % (0.0 - 2.0 %) 0.4 Absolute Granulocytes (1.4 - 6.5 /CUMM) 6.6 H Absolute Lymphocytes (1.2 - 3.4 /CUMM) 0.8 L Absolute Monocytes (0.10 - 0.60 /CUMM) 0.2 Absolute Eosinophils (0.0 - 0.7 /CUMM) 0.1 Absolute Basophils (0.0 - 0.2 /CUMM) 0
[2017-07-21 16:00] VITALS: BP 142/80
[2017-07-21 18:00] LABS: ABSOLUTE BASOPHIL COUNT 0 /CUMM (0.0-0.2); ABSOLUTE EOSINOPHIL COUNT 0.2 /CUMM (0.0-0.7); ABSOLUTE GRANULOCYTE CT 4.7 /CUMM (1.4-6.5); ABSOLUTE LYMPH COUNT 0.9 /CUMM (1.2-3.4); ABSOLUTE MONOCYTE COUNT 0.3 /CUMM (0.10-0.60); BASOPHIL % 0.6 % (0.0-2.0); EOSINOPHIL % 2.8 % (0-5); GRANULOCYTE % 76.4 % (42.2-75.2); HEMATOCRIT 25.4 % (37-47); MEAN CORPUSCULAR HGB 29.8 PG (27.0-31.0); MEAN CORPUSCULAR HGB CONC 32.8 G/DL (33.0-37.0); MEAN CORPUSCULAR VOLUME 90.9 FL (81.0-99.0); MEAN PLATELET VOLUME 8.1 FL (7.4-10.4); PLATELET COUNT 177 /CUMM (130-400); RBC DISTRIBUTION WIDTH 16.7 % (11.5-14.5); RED BLOOD CELL CT 2.79 /CUMM (4.20-5.40); WHITE BLOOD CELL COUNT 6.2 /CUMM (4.8-10.8)
--- NOTE | 2017-07-21 18:02 | PN- Cardiology ---
Subjective Subjective: Events of weekend reviewed. Mrs. Corona remains short of breath. Objective Vital Signs and I&Os Vital Signs Date Time Temp Pulse Resp B/P B/P Pulse O2 O2 Flow FiO2 Mean Ox Delivery Rate 07/21 1610 63 99 07/21 1600 97 BIPAP 25% 07/21 1600 97.9 62 24 142/80 97 BIPAP 25% 07/21 1325 66 97 07/21 1200 98 BIPAP 30% 07/21 0915 61 98 07/21 0908 98 Nasal 40% Cannula 07/21 0907 78 98 07/21 0800 97 BIPAP 30% 07/21 08 98.7 60 20 154/50 97 BIPAP 30% 07/21 0640 61 99 07/21 0347 96 BIPAP 30% 07/21 0300 58 96 07/21 0030 59 98 07/21 0000 97 BIPAP 30% 07/20 2200 98.4 61 26 112/42 95 BIPAP 30% 07/20 2145 56 96 07/21 1999 97 BIPAP 30% 07/20 1900 59 96 Intake & Output 07/21 1600 07/21 0800 07/21 0000 07/20 1600 07/20 0800 07/20 0000 Intake Total 780 2100 580 770 200 Output Total 850 390 300 225 406 Balance -70 1710 280 545 -206 Intake, IV 140 100 340 270 100 Intake, Oral 640 2000 240 500 100 Output, Stool 600 75 50 75 50 Output, Urine 250 315 250 150 356 Patient 146 lb Weight Physical Exam: Well-developed, obese elderly female in no acute distress who appears pale and who has nasal oxygen in place. Vital signs: See above. HEENT: Normocephalic, atraumatic, EOMI, moist mucous membranes. Neck: No JVD, no bruits. Lungs: Decreased breath sounds at the bases. Heart: S1, S2 with grade 1/6 systolic murmur. No gallop or rub. Abdomen: Soft, nontender, positive bowel sounds. Extremities: Trace bilateral lower extremity edema. Current Medications: Current Medications Sig/Rick Start time Last Medication Dose Route Stop Time Status Admin Acetaminophen 650 MG .STK-MED ONE 07/21 0757 DC PO 07/21 0758 Acetaminophen 650 MG .STK-MED ONE 07/21 0123 DC PO 07/21 0124 Acetaminophen 650 MG .STK-MED ONE 07/20 1941 DC PO 07/20 194 Acetaminophen 650 MG Q6P PRN 07/19 1415 AC 07/21 PO 1526 Albuterol Sulfate 3 ML Q4P PRN 07/19 1245 AC INH Aspirin 81 MG DAILY 07/19 1319 AC 07/20 PO 0848 Ciprofloxacin 400 MG DAILY@1800 07/19 1800 AC 07/21 Dextrose/Water 200 ML IV 1705 Clopidogrel Bisulfate 75 MG DAILY 07/19 1320 AC 07/20 PO 0848 Ferrous Gluconate 325 MG TID 07/18 2100 AC 07/21 PO 1312 Gabapentin 100 MG Q8 07/18 2200 AC 07/21 PO 1312 Hydromorphone HCl 2 MG Q8 07/20 1400 AC 07/21 PO 1313 Levothyroxine Sodium 0.025 MG DAILY AC 07/19 0700 AC 07/21 PO 0613 Metronidazole 500 MG Q8H 07/20 0200 AC 07/21 N/A 1 UNIT IV 1736 Pantoprazole Sodium 40 MG BID 07/18 1351 AC 07/21 IV 0857 Polyethylene Glycol 0.5 GAL ONCE ONE 07/21 0500 DC 07/21 PO 07/21 0501 0516 Sertraline HCl 25 MG QAM 07/19 0900 AC 07/21 PO 1312 Assessment/Plan Assessment/Plan [id number] w/ hx of anxiety/depression, RA on chronic steroid therapy, DVT previously on Eliquis, obesity, TACO, HTN, LVH, AR, diastolic dysfunction w/ acute on chronic diastolic heart failure (HFpEF), colonic perforation following colonoscopy s/p Constance procedure September 2014 complicated by type II AL, MARVEL, bacteremia, etc. and chronic anemia w/ recent hospitalization for symptomatic anemia that improved w/ transfusion of PRBCs complicated by MAVREL on CKD, etc. who improved w/ standard measures, but who was subsequent transferred for cardiac cath at [facility] that revealed a 70% LAD stenosis that was stented is to 0 % residual stenosis and ELSY-3 flow who was again admitted (07/07-07/11/2017) w/ worsening chronic weakness, SOB, new bilateral lower extremity edema c/w HFpEF and a modest troponin I elevation likely on the basis of a type II AL who improved w/ standard therapy, but who now returns w/ evidence of GI bleeding on dual antiplatelet Rx for her recent coronary stent. She has a colostomy and is on chronic iron therapy w/ chronically dark colostomy bag contents, but noted blood in her colostomy bag w/ assoc abdominal pain. Additionally, c/o worsening SOB w/o assoc CP & painful RLE. Recommendations: * Continue in ICU. * Fortunately, hemodynamically stable, but BP elevates when off BiPAP. Start back on low dose carvedilol. * Back on dual antiplatelet therapy (clopidogrel, aspirin) for recent LILIAN deployment. * Given known history of CAD, but maintained hemoglobin above 8.0 g/dl. * Repeat CXR and diuresis as needed. * DVT prophylaxis being addressed. Continue telemetry? Yes
--- NOTE | 2017-07-21 19:01 | ECHOCARDIOGRAM REPORT ---
RYAN CHRISTENSEN Age: 76 : 1940 Gender: F Exam Date: 07/21/2017 11:04 Exam Location: [facility] Ht (in): 56 Wt (lb): 145 BSA: 1.65 BP: 141 / 49 Ordering Physician: Ba Mora MD Referring Physician: Ba Mora MD Technologist: Babka Merida [facility] Room Number: 111-1 Indications: HEART FAILURE Rhythm: Sinus Technical Quality: Fair FINDINGS Left Ventricle Normal size left ventricle. Mild concentric left ventricular hypertrophy. No obvious regional wall motion abnormalities. Normal left ventricular ejection fraction visually estimated at >65%. Restrictive filling pattern of the left ventricle for age (stage 3 diastolic dysfunction). Right Ventricle Normal right ventricular size and function. Right Atrium Mild right atrial dilatation. Left Atrium Moderate left atrial dilatation. Mitral Valve Mild mitral annular calcification. Mitral valve thickened. Mild mitral regurgitation. Aortic Valve Aortic valve not well visualized. Aortic sclerosis. No aortic stenosis. Mild aortic regurgitation. Tricuspid Valve Structurally normal tricuspid valve. Trace tricuspid regurgitation. Pulmonic Valve Pulmonic valve not well visualized, grossly normal. Trace pulmonic regurgitation. Pericardium No pericardial effusion. Great Vessels Normal size aortic root. Dilated inferior vena cava. CONCLUSIONS Normal size left ventricle. Mild concentric left ventricular hypertrophy. Normal left ventricular ejection fraction visually estimated at > 65%. Restrictive filling pattern of the left ventricle for age (stage 3 diastolic dysfunction). Normal right ventricular size and function. Mild right atrial dilatation. Moderate left atrial dilatation. Mild mitral regurgitation. Mild aortic regurgitation. Trace tricuspid regurgitation. Trace pulmonic regurgitation. Dilated inferior vena cava. Jayson Zavala M.D. (Electronically Signed) Final Date: 21 July 2017 19:00 MEASUREMENTS (Male / Female) Normal Values 2D ECHO LV Diastolic Diameter PLAX 4.4 cm 4.2 - 5.9 / 3.9 - 5.3 cm LV Systolic Diameter PLAX 2.3 cm 2.1 - 4.0 cm LV Fractional Shortening PLAX 47.7 % 25 - 46 % LV Ejection Fraction 2D Teich 79.3 % IVS Diastolic Thickness 1.0 cm LVPW Diastolic Thickness 1.1 cm LV Relative Wall Thickness 0.5 RV Internal Dim ED PLAX 2.9 cm 1.9 - 3.8 cm LVOT Diameter 1.7 cm Aortic Root Diameter 2.2 cm LA Systolic Diameter LX 4.1 cm 3.0 - 4.0 / 2.7 - 3.8 cm Ascending Aorta Diameter 2.4 cm DOPPLER AV Peak Velocity 159.0 cm/s AV Peak Gradient 10.1 mmHg AV Mean Velocity 96.9 cm/s AV Mean Gradient 5.0 mmHg AV Velocity Time Integral 32.7 cm AI Deceleration [place] 259.0 cm/s AI Peak Velocity 434.0 cm/s AI Pressure Half Time 492.0 ms AI Peak Gradient 75.3 mmHg LVOT Peak Velocity 93.2 cm/s LVOT Peak Gradient 3.5 mmHg LVOT Mean Velocity 59.2 cm/s LVOT Mean Gradient 2.0 mmHg LVOT Velocity Time Integral 19.3 cm LVOT Stroke Volume 43.8 cm AV Area Cont Eq vti 1.3 cm AV Area Cont Eq pk 1.3 cm MV Peak Velocity 112.0 cm/s MV Peak Gradient 5.0 mmHg MV Mean Velocity 53.2 cm/s MV Mean Gradient 1.5 mmHg Mitral E Point Velocity 94.3 cm/s Mitral A Point Velocity 34.1 cm/s Mitral E to A Ratio 2.8 MV PHT Velocity 118.5 cm/s MV Deceleration [place] 572.0 cm/s MV Pressure Half Time 62.2 ms MV Area PHT 3.5 cm MV Deceleration Time 292.0 ms MR Peak Velocity 472.0 cm/s MR Peak Gradient 89.1 mmHg PV Peak Velocity 97.9 cm/s PV Peak Gradient 3.8 mmHg PV Mean Velocity 64.6 cm/s PV Mean Gradient 2.0 mmHg PV Velocity Time Integral 22.0 cm LV E' Lateral Velocity 5.3 cm/s Mitral E to LV E' Lateral Ratio 17.9 LV E' Septal Velocity 4.1 cm/s Mitral E to LV E' Septal Ratio 23.1
[2017-07-22] VITALS: BP 112/50
[2017-07-22 05:04] LABS: ABSOLUTE BASOPHIL COUNT 0 /CUMM (0.0-0.2); ABSOLUTE EOSINOPHIL COUNT 0.2 /CUMM (0.0-0.7); ABSOLUTE GRANULOCYTE CT 4.9 /CUMM (1.4-6.5); ABSOLUTE LYMPH COUNT 0.8 /CUMM (1.2-3.4); ABSOLUTE MONOCYTE COUNT 0.4 /CUMM (0.10-0.60); BASOPHIL % 0.4 % (0.0-2.0); EOSINOPHIL % 3.3 % (0-5); GRANULOCYTE % 76.8 % (42.2-75.2); HEMATOCRIT 24.9 % (37-47); MEAN CORPUSCULAR HGB 29.7 PG (27.0-31.0); MEAN CORPUSCULAR HGB CONC 32.7 G/DL (33.0-37.0); MEAN PLATELET VOLUME 7.7 FL (7.4-10.4); PLATELET COUNT 180 /CUMM (130-400); RBC DISTRIBUTION WIDTH 17.2 % (11.5-14.5); RED BLOOD CELL CT 2.74 /CUMM (4.20-5.40); WHITE BLOOD CELL COUNT 6.4 /CUMM (4.8-10.8)
--- NOTE | 2017-07-22 07:26 | PN- Resident CRCU ---
Elder CURTIS,[facility] 07/22/17 0726: Subjective HPI/CRCU Issues: # Acute blood loss anemia likely secondary to GI bleeding , ?? Ischemic colitis # Acute hypoxic and hypercarbic respiratory failure likely some fluid overload, on BiPAP # History of colonic perforation status post colostomy # History of hypertension # Type II DE # Marvel on CKD 24 Hour Events: Patient continues to be on BiPAP, with FiO2 increased to 25%. She wants to come off the BiPAP but states she gets short of breath even if she removes the mask for a short period of time. She is complaining of abdominal pain 6-7/10 in intensity, without any nausea or vomiting. Objective Vital Signs & I&O Last 8 Hrs of Vitals and I&O: Intake & Output 07/22 1600 Intake Total 850 Output Total 150 Balance 700 Intake, IV 410 Intake, Oral 440 Output, Stool 50 Output, Urine 100 Exam General Appearance: alert, awake, mild distress, moderate distress Head: atraumatic, normal appearance Respiratory: normal breath sounds, chest non-tender Cardiovascular: regular rate/rhythm Gastrointestinal: normal bowel sounds, soft, tenderness, Coloctomy bag in place, no jane blood noticed Extremities: trace edema, small swelling on the right anterior santana butout any blood or drainage Current Medications: Current Medications Sig/Rikc Start time Last Medication Dose Route Stop Time Status Admin Acetaminophen 1,000 MG ONCE ONE 07/21 2244 DC IV 07/21 2245 Acetaminophen 650 MG .STK-MED ONE 07/21 2020 DC PO 07/21 2020 Acetaminophen 650 MG .STK-MED ONE 07/21 1525 DC PO 07/21 1526 Acetaminophen 650 MG Q6P PRN 07/19 1415 AC 07/22 PO 0842 Acetaminophen/ 1 TAB BID PRN 07/22 0930 AC 07/22 Butalbital/Caffeine PO 1045 Albuterol Sulfate 3 ML Q4P PRN 07/19 1245 AC INH Aspirin 81 MG DAILY 07/19 1319 AC 07/22 PO 0842 Carvedilol 6.25 MG BID 07/21 2100 AC 07/22 PO 0843 Ciprofloxacin 400 MG DAILY@1800 07/19 1800 AC 07/21 Dextrose/Water 200 ML IV 1705 Clopidogrel Bisulfate 75 MG DAILY 07/19 1320 AC 07/22 PO 0842 Famotidine 20 MG ONCE ONE 07/21 2244 DC 07/22 PO 04/30 2246 0224 Ferrous Gluconate 325 MG TID 07/18 2100 AC 07/22 PO 0842 Gabapentin 100 MG Q8 07/18 2200 AC 07/22 PO 0554 Hydromorphone HCl 2 MG Q8 07/20 1400 AC 07/22 PO 0555 Levothyroxine Sodium 0.025 MG DAILY AC 07/19 0700 AC 07/22 PO 0555 Magnesium Oxide 400 MG BID 07/22 0900 AC 07/22 PO 07/22 2101 0843 Methylprednisolone 40 MG Q8 07/22 0930 AC 07/22 IV 1004 Metronidazole 500 MG Q8H 07/20 0200 AC 07/22 N/A 1 UNIT IV 0842 Ondansetron HCl 4 MG ONCE ONE 07/22 1100 AC IV 07/22 1101 Pantoprazole Sodium 40 MG BID 07/18 1351 AC 07/22 IV 0843 Potassium Phosphate 15 mMol ONE ONE 07/22 0800 AC 07/22 Dextrose/Water 250 ML IV 07/22 1204 0951 Sertraline HCl 25 MG QAM 07/19 0900 AC 07/22 PO 0842 Impression/Plan Impression/Problem List Impression: 76-year-old female with a history of anxiety/depression, rheumatoid arthritis on chronic steroid therapy, previous deep venous thrombosis on chronic anticoagulation with Xarelto (Currently on hold), obesity, obstructive sleep apnea on CPAP, chronic anemia, hypertension, left ventricular hypertrophy with diastolic dysfunction, and aortic regurgiatation who presented to the ED on 07/18/2017 with complaints of jane blood in her colostomy bag FOR 1 d [employer]. She was recently discharged on 07/11/17, after been treated for acute on chronic diastolic CHF, was on xeralto that was stopped due to anemia with dropping H&H and positive Guaiac during her last admission after discussion of risks and benefits with the patient. She was also hospitalized at (06/23-07/02/2017) with symptomatic anemia and modest troponin I elevation, requiring transfusion 2 with no obvious etiology for the bleeding documented and with the plan for an outpatient pill cam. She additionally had evidence of acute on chronic kidney injury, and was seen in consultation by nephrology and gradually improved from that standpoint. Finally , given concerns about underlying coronary artery disease, she was transferred to [facility] where she underwent cardiac catheterization on 07/02/2017 that revealed: LM- patent, LAD- long vessel wrapping around the apex with a ~70% proximal stenosis, LCx- 60% ostial M1, and RCA- dominant and patent, & LV gram- not done. She was admitted to telemetry floor, received 2 units blood transfusion and 2 units FFP as her INR was found to be elevated to 2.36, in the setting with active GI bleeding through the colostomy bag, patient was seen by GI who recommended colonoscopy through ostomy. Cardiology is agreeable to continue dual antiplatelet therapy given recent stent, and keep a close eye on H/H and to transfuse to keep Hgb >8.0. On 07/19 she was transferred to ICU for acute hypoxic and hypercarbic respiratory failure like secondary to fluid overload and was started on BiPAP. Plan Respiratory: Patient was transferred from telemetry floor because of acute hypoxic and hypercarbic respiratory failure. Initial ABGs showed a pH of 7.08 and PCO2 of 81 , repeat ABG on BiPAP showed improved pH of 7.34 and PCO2 of 41. Chest x-ray at that time showed signs of fluid overload, but patient did not seem to have active exacerbation of her diastolic HF at that time. Patient received IV lasix 20mg x 2 and again 40mg x 1(total of 80mg) for fluid overload. Patient continues to be on BiPAP, with a respiratory status worsening with weaning trials. * Will continue Bipap PRN, while trying to wean it off * No plan for intubation per patient request * TRC/NEBs as needed * Repeat CXR this am showed findings are suspicious for congestive heart failure with pulmonary edema and bilateral pleural effusions. ?? CHF exacerbation. Will Give lasix 20mg IV now and 20mg later in the evening because of borderline BP. * Continue Lasix as needed. * Also start the patient empirically on solumedrol 40mg Q 8. * F/U Cardio recommendations. Infectious Diseases: * Keep the head of the bed elevated for aspiration precaution * On IV abx per GI for ?? Ischemic colitis * Monitor for any fever * Watch right santana for any infection(per the patient she noticed it after the cardiac catheterization). Patient remains afebrile without any WBC count elevation. Cardiovascular: 1. Type II DE; patient has baseline elevated troponin levels ranging from 0.40- 0.50 likely due to CKD, but started trending up with a peak at 1.10. No new EKG changes or chest pain. * Repeat limited Echo to assess cardiac function and look for wall motion abnormality, given the uptrending trops; showed normal ejection fraction with no regional wall motion abnormalities and stage 3 diastolic dysfunction(similar to previous echo on June) * Repeat * Monitor BP, HR * Appreciate health assistant recommendation * Continue dual antiplatelet therapy(given recent cardiac catheterization and stent placement) * Continue to hold lisinopril * Continue Lasix as needed Hematology: 1. Acute blood loss anemia likely secondary to GI bleeding , ?? Ischemic colitis; she presented with jane blood in her colostomy bag since one day before her admission. She received 2 units of blood transfusion with improvement in her H&H to 10.9/33.2 and was scheduled for a colonoscopy on 07/19 but was different because of her acute worsening of the respiratory status requiring BiPAP. Her H&H continues to drop down slighly every day. She was prepared for colonoscopy again on 07/21 but was canceled again due to similar reasons. Will reattempt colonoscopy once the patient's respiratory status is more stable. There was also high suspicion for ischemic colitis given the abdominal pain and bleeding starting after the cardiac catheterization; surgical consult was obtained for that reason but suggested that the GI bleeding is likely in the setting of dual antiplatelet therapy that the patient was started on after the cardiac catheterization. CTA abdomen was considered but could not be obtained as patient is a very high risk for ATN per nephro given patient has stage IV CKD and presented with a MARVEL on CKD with a creatinine of 1.7. * Xarelto on hold * Continue aspirin and Plavix given cardiac stent placement * H&H daily and transfuse for Hb<8 * Colonoscopy through ostomy once patient is stable. * Continue empiric Abx for 7-10 days. Day 4. * Appreciate GI recommendations * Appreciate general surgery recommendations Metabolic: 1. MARVEL on CKD; patient has stage IV kidney disease and presented with a creatinine of 1.7. Nephrology consult obtained. * Continue to monitor creatinine, Back to 1.7 from 1.9. * Repeat creatinine level in a.m. * Follow-up nephrology recommendations. 2. Electrolyte abnormalities; * Continue to monitor and replete accordingly. Alimentary: * Clear liquid diet for now Neurological: 1. Migraine headaches; - Start the patient on Fioricet twice a day. - Continue PO dilaudid 2 mg PO q8hr for now, given her respiratory status. We' ll reassess on daily basis and go up and Dilaudid if needed. Diet: Clear liquid diet DVT/Prophylaxis: mechanical(left leg only, no ALPS on right side bcoz of right santana lesion) Code Status: Do Not Resucitate/Intubat Problem List: 1. GI bleed 2. Acute respiratory failure Pain Ratin Pain Location: Abdomen Pain Goal: Pain 7 or less Pain Plan: Pain Pathway Tomorrow's Labs & Rationales: CBC ICU Bundle Plan DVT/Prophylaxis: mechanical Code Status: Do Not Resucitate/Intubat Lucien Zuniga MD 07/22/17 1223: Attending MD Review Statement Attending Sign Off Attending Cosign Statement: I have: examined this patient, reviewed [facility] EMR data, personally reviewd images, discussd w/resident/PA/GRINDING WHEEL FACER, discussed mgmt plan w/amie, discussed mgmt plan w/CM, discussed mgmt plan w/pt, agreed w/resident/PA/GRINDING WHEEL FACER, amended to note. Other Findings: Impression 76 year old woman * acute hypoxemic and hypercarbic respiratory failure improving, likely secondary to fluid overload/blood transfusions * acute blood loss anemia/gi bleeding Plan Respiratory -continue to have trials off bipap, fio2 goal to support spo2 >92% ID -monitor -aspiration precautions -on cipro and flagyl CVS/Heme -f/u cardiology -per cardio and GI - pt remains on asa, plavix, will monitor for any significant further bleeding -f/u GI -LE dopplers do not show DVT - has an anterior right santana lesion -surgical consultation is appreciated -patient is evaluating her goals of care and how aggressive her management will be Metabolic -ins/outs -creatinine -electrolytes Alimentary -clears per GI Neuro -monitor closely DVT prophylaxis at all times TTS 35 min DNR/DNI continuing to evaluate overall goals of care.
[2017-07-22 08:00] VITALS: BP 128/50
--- NOTE | 2017-07-22 10:09 | RADIOLOGY REPORT ---
EXAMINATION: XR PORTABLE CHEST CLINICAL INFORMATION: Acute hypercarbic respiratory failure. Rule out fluid overload. COMPARISON: Chest x-ray dated 07/20/2017 and several older studies. TECHNIQUE: Portable AP semierect view of the chest was obtained. FINDINGS: EKG leads overlie the chest. The cardiomediastinal silhouette is enlarged, unchanged. Low lung volumes are seen with dense parenchymal opacities in the mid and lower lungs, unchanged. Bilateral small pleural effusions are again seen extending into the fissures. Relative sparing of the lung apices is noted. No pneumothorax is seen. Diffuse osteopenia and degenerative changes in the shoulder joints again noted. IMPRESSION: No significant change in the appearance of the chest when compared to prior study from 07/20/2017. Findings are suspicious for congestive heart failure with pulmonary edema and bilateral pleural effusions noted. Superimposed bibasilar opacities are most consistent with atelectasis. Close clinical correlation is requested to exclude pneumonia.
--- NOTE | 2017-07-22 13:34 | PN- Gastroenterology ---
Assessment/Plan GI Assessment/Recommendations: ASSESSMENT: 1. GI bleeding: No overt luminal GI blood losses at this time 2. Hypoxic respiratory failure: Patient still requiring BiPAP 3. Acute blood loss anemia: H&H now stable 4. Rheumatoid arthritis RECOMMENDATIONS: GI will hold off on endoscopy until patient is stable from a respiratory standpoint. We will not see patient on a daily basis but will lie on ICU staff to inform GI when cleared by critical care and pulmonary for colonoscopy through stoma. Please do not hesitate to contact us should patient have recurrent bleeding or any change in GI clinical condition. Subjective Subjective: Patient remained short of breath. Patient has had no further bloody output per ostomy. H&H remained stable. Patient is still on BiPAP. Objective Vital Signs and I&Os Vital Signs Date Time Temp Pulse Resp B/P B/P Pulse O2 O2 Flow FiO2 Mean Ox Delivery Rate 07/22 1200 97 BIPAP 25% 07/22 1130 58 95 07/22 0810 89 92 07/22 0800 97 BIPAP 25% 07/22 0800 98.4 60 14 128/50 97 BIPAP 25% 07/22 0610 60 97 07/22 0400 96 BIPAP 25% 07/22 0044 60 95 / 0000 95 BIPAP 25% 07/22 0000 98.5 62 26 112/50 95 BIPAP 25% 07/21 2211 64 122/58 07/21 2207 63 96 07/21 2047 98 BIPAP 25% 07/21 2000 95 BIPAP 25% 07/21 1924 65 99 07/21 1610 63 99 07/21 1600 97 BIPAP 25% 07/21 1600 97.9 62 24 142/80 97 BIPAP 25% Intake & Output 07/22 1600 07/22 0400 07/21 1600 07/21 0400 07/20 1600 07/20 0400 Intake Total 797 980 4478 580 770 200 Output Total 865 979 3333 300 225 406 Balance 30 355 1640 280 545 -206 Intake, IV 130 380 240 340 270 100 Intake, Oral 447 179 4356 240 500 100 Output, Stool 25 50 675 50 75 50 Output, Urine 200 225 565 250 150 356 Patient 146 lb Weight Physical Exam General Appearance: alert, awake, on BiPAP Respiratory: wheezing Cardiovascular: regular rate/rhythm Abdomen: normal bowel sounds, soft, non-tender Neurologic/Psychiatric: awake, alert, normal mood/affect Skin: intact, normal color, warm/dry Current Medications: Current Medications Sig/Rick Start time Last Medication Dose Route Stop Time Status Admin Acetaminophen 1,000 MG ONCE ONE 07/21 2244 DC IV 07/21 2245 Acetaminophen 650 MG .STK-MED ONE 07/21 2020 DC PO 07/21 2020 Acetaminophen 650 MG .STK-MED ONE 07/21 1525 DC PO 07/21 1526 Acetaminophen 650 MG Q6P PRN 07/19 1415 AC 07/22 PO 0842 Acetaminophen/ 1 TAB BID PRN 07/22 0930 AC Butalbital/Caffeine PO Albuterol Sulfate 3 ML Q4P PRN 07/19 1245 AC INH Aspirin 81 MG DAILY 07/19 1319 AC 07/22 PO 0842 Carvedilol 6.25 MG BID 07/21 2100 AC 07/22 PO 0843 Ciprofloxacin 400 MG DAILY@1800 07/19 1800 AC 07/21 Dextrose/Water 200 ML IV 1705 Clopidogrel Bisulfate 75 MG DAILY 07/19 1320 AC 07/22 PO 0842 Famotidine 20 MG ONCE ONE 07/21 2245 DC 07/22 PO 07/21 2246 0224 Ferrous Gluconate 325 MG TID 07/18 2100 AC 07/22 PO 1306 Furosemide 20 MG ONCE ONE 07/22 1145 DC IV 07/22 1146 Gabapentin 100 MG Q8 07/18 2200 AC 07/22 PO 1314 Hydromorphone HCl 2 MG Q8 07/20 1400 AC 07/22 PO 1306 Levothyroxine Sodium 0.025 MG DAILY AC 07/19 0700 AC 07/22 PO 0555 Magnesium Oxide 400 MG BID 07/22 09 AC 07/22 PO 07/22 2101 0843 Methylprednisolone 40 MG Q8 07/22 0930 AC 07/22 IV 1305 Metronidazole 500 MG Q8H 07/20 0200 AC 07/22 N/A 1 UNIT IV 0842 Ondansetron HCl 4 MG ONCE ONE 07/22 1100 DC 07/22 IV 07/22 1101 1103 Pantoprazole Sodium 40 MG BID 07/18 1351 AC 07/22 IV 0843 Potassium Phosphate 15 mMol ONE ONE 07/22 0800 DC 07/22 Dextrose/Water 250 ML IV 07/22 1204 0951 Sertraline HCl 25 MG QAM 07/19 0900 AC 07/22 PO 0842 Results Pertinent Lab Results: Laboratory Tests 07/22 07/21 0434 1605 Chemistry Sodium (137 - 145 mmol/L) 139 Potassium (3.5 - 5.1 mmol/L) 4.0 Chloride (98 - 107 mmol/L) 108 H Carbon Dioxide (22 - 30 mmol/L) 24 Anion Gap (5 - 16) 7 BUN (7 - 17 mg/dL) 34 H Creatinine (0.5 - 1.0 mg/dL) 1.7 H Estimated GFR (>60 ml/min) 29 L Glucose (65 - 99 mg/dL) 80 Calcium (8.4 - 10.2 mg/dL) 8.8 Phosphorus (2.5 - 4.5 mg/dL) 3.8 Magnesium (1.6 - 2.3 mg/dL) 1.8 Total Bilirubin (0.2 - 1.3 mg/dL) 0.4 AST (14 - 36 U/L) 14 ALT (9 - 52 U/L) 20 Albumin (3.5 - 5.0 g/dL) 1.9 L Hematology CBC w Diff NO MAN DIFF REQ NO MAN DIFF REQ WBC (4.8 - 10.8 /CUMM) 6.4 6.2 RBC (4.20 - 5.40 /CUMM) 2.74 L 2.79 L Hgb (12.0 - 16.0 G/DL) 8.1 L 8.3 L Hct (37 - 47 %) 24.9 L 25.4 L MCV (81.0 - 99.0 FL) 91.0 90.9 MCH (27.0 - 31.0 PG) 29.7 29.8 MCHC (33.0 - 37.0 G/DL) 32.7 L 32.8 L RDW (11.5 - 14.5 %) 17.2 H 16.7 H Plt Count (130 - 400 /CUMM) 180 177 MPV (7.4 - 10.4 FL) 7.7 8.1 Gran % (42.2 - 75.2 %) 76.8 H 76.4 H Lymphocytes % (20.5 - 51.1 %) 12.8 L 14.8 L Monocytes % (1.7 - 9.3 %) 6.7 5.4 Eosinophils % (0 - 5 %) 3.3 2.8 Basophils % (0.0 - 2.0 %) 0.4 0.6 Absolute Granulocytes (1.4 - 6.5 /CUMM) 4.9 4.7 Absolute Lymphocytes (1.2 - 3.4 /CUMM) 0.8 L 0.9 L Absolute Monocytes (0.10 - 0.60 /CUMM) 0.4 0.3 Absolute Eosinophils (0.0 - 0.7 /CUMM) 0.2 0.2 Absolute Basophils (0.0 - 0.2 /CUMM) 0 0 07/21 07/20 0430 2315 Chemistry Sodium (137 - 145 mmol/L) 141 Potassium (3.5 - 5.1 mmol/L) 4.0 Chloride (98 - 107 mmol/L) 109 H Carbon Dioxide (22 - 30 mmol/L) 26 Anion Gap (5 - 16) 6 BUN (7 - 17 mg/dL) 41 H Creatinine (0.5 - 1.0 mg/dL) 1.9 H Estimated GFR (>60 ml/min) 26 L Glucose (65 - 99 mg/dL) 81 Calcium (8.4 - 10.2 mg/dL) 8.9 Phosphorus (2.5 - 4.5 mg/dL) 4.0 Magnesium (1.6 - 2.3 mg/dL) 2.0 Total Bilirubin (0.2 - 1.3 mg/dL) 0.3 AST (14 - 36 U/L) 15 ALT (9 - 52 U/L) 25 Troponin I (< 0.11 ng/ml) 0.84 *H Albumin (3.5 - 5.0 g/dL) 1.8 L Hematology CBC w Diff NO MAN DIFF REQ NO MAN DIFF REQ WBC (4.8 - 10.8 /CUMM) 6.8 7.1 RBC (4.20 - 5.40 /CUMM) 2.70 L 2.79 L Hgb (12.0 - 16.0 G/DL) 8.1 L 8.6 L Hct (37 - 47 %) 24.5 L 25.2 L MCV (81.0 - 99.0 FL) 90.8 90.1 MCH (27.0 - 31.0 PG) 30.0 30.6 MCHC (33.0 - 37.0 G/DL) 33.1 34.0 RDW (11.5 - 14.5 %) 16.8 H 16.3 H Plt Count (130 - 400 /CUMM) 172 169 MPV (7.4 - 10.4 FL) 8.0 7.8 Gran % (42.2 - 75.2 %) 77.9 H 78.1 H Lymphocytes % (20.5 - 51.1 %) 12.6 L 12.8 L Monocytes % (1.7 - 9.3 %) 6.3 6.5 Eosinophils % (0 - 5 %) 2.8 2.2 Basophils % (0.0 - 2.0 %) 0.4 0.4 Absolute Granulocytes (1.4 - 6.5 /CUMM) 5.3 5.5 Absolute Lymphocytes (1.2 - 3.4 /CUMM) 0.9 L 0.9 L Absolute Monocytes (0.10 - 0.60 /CUMM) 0.4 0.5 Absolute Eosinophils (0.0 - 0.7 /CUMM) 0.2 0.2 Absolute Basophils (0.0 - 0.2 /CUMM) 0 0 07/20 07/20 07/20 1420 0930 0310 Chemistry Troponin I (< 0.11 ng/ml) 1.10 *H 1.01 *H 0.97 *H Hematology CBC w Diff NO MAN DIFF REQ WBC (4.8 - 10.8 /CUMM) 8.5 RBC (4.20 - 5.40 /CUMM) 2.88 L Hgb (12.0 - 16.0 G/DL) 8.6 L Hct (37 - 47 %) 26.1 L MCV (81.0 - 99.0 FL) 90.6 MCH (27.0 - 31.0 PG) 29.9 MCHC (33.0 - 37.0 G/DL) 33.0 RDW (11.5 - 14.5 %) 16.9 H Plt Count (130 - 400 /CUMM) 183 MPV (7.4 - 10.4 FL) 7.6 Gran % (42.2 - 75.2 %) 79.0 H Lymphocytes % (20.5 - 51.1 %) 12.6 L Monocytes % (1.7 - 9.3 %) 5.8 Eosinophils % (0 - 5 %) 2.0 Basophils % (0.0 - 2.0 %) 0.6 Absolute Granulocytes (1.4 - 6.5 /CUMM) 6.7 H Absolute Lymphocytes (1.2 - 3.4 /CUMM) 1.1 L Absolute Monocytes (0.10 - 0.60 /CUMM) 0.5 Absolute Eosinophils (0.0 - 0.7 /CUMM) 0.2 Absolute Basophils (0.0 - 0.2 /CUMM) 0 07/20 07/19 0310 2100 Chemistry Sodium (137 - 145 mmol/L) 141 Potassium (3.5 - 5.1 mmol/L) 4.4 Chloride (98 - 107 mmol/L) 108 H Carbon Dioxide (22 - 30 mmol/L) 24 Anion Gap (5 - 16) 8 BUN (7 - 17 mg/dL) 46 H Creatinine (0.5 - 1.0 mg/dL) 1.8 H Estimated GFR (>60 ml/min) 27 L Glucose (65 - 99 mg/dL) 60 L Calcium (8.4 - 10.2 mg/dL) 8.8 Phosphorus (2.5 - 4.5 mg/dL) 4.6 H Magnesium (1.6 - 2.3 mg/dL) 1.8 Total Bilirubin (0.2 - 1.3 mg/dL) 0.4 AST (14 - 36 U/L) 18 ALT (9 - 52 U/L) 26 Troponin I (< 0.11 ng/ml) 0.91 *H Albumin (3.5 - 5.0 g/dL) 2.0 L Hematology CBC w Diff NO MAN DIFF REQ NO MAN DIFF REQ WBC (4.8 - 10.8 /CUMM) 9.6 12.7 H RBC (4.20 - 5.40 /CUMM) 2.83 L 2.99 L Hgb (12.0 - 16.0 G/DL) 8.3 L 9.0 L Hct (37 - 47 %) 25.5 L 26.9 L MCV (81.0 - 99.0 FL) 90.1 89.8 MCH (27.0 - 31.0 PG) 29.4 30.0 MCHC (33.0 - 37.0 G/DL) 32.6 L 33.3 RDW (11.5 - 14.5 %) 16.9 H 16.5 H Plt Count (130 - 400 /CUMM) 188 201 MPV (7.4 - 10.4 FL) 7.6 7.5 Gran % (42.2 - 75.2 %) 78.4 H 86.0 H Lymphocytes % (20.5 - 51.1 %) 13.3 L 9.0 L Monocytes % (1.7 - 9.3 %) 6.1 3.8 Eosinophils % (0 - 5 %) 1.7 0.9 Basophils % (0.0 - 2.0 %) 0.5 0.3 Absolute Granulocytes (1.4 - 6.5 /CUMM) 7.6 H 10.9 H Absolute Lymphocytes (1.2 - 3.4 /CUMM) 1.3 1.1 L Absolute Monocytes (0.10 - 0.60 /CUMM) 0.6 0.5 Absolute Eosinophils (0.0 - 0.7 /CUMM) 0.2 0.1 Absolute Basophils (0.0 - 0.2 /CUMM) 0.1 0 04/28 1450 Chemistry Troponin I (< 0.11 ng/ml) 0.70 *H Hematology CBC w Diff NO MAN DIFF REQ WBC (4.8 - 10.8 /CUMM) 15.1 H RBC (4.20 - 5.40 /CUMM) 3.31 L Hgb (12.0 - 16.0 G/DL) 9.8 L Hct (37 - 47 %) 30.0 L MCV (81.0 - 99.0 FL) 90.8 MCH (27.0 - 31.0 PG) 29.8 MCHC (33.0 - 37.0 G/DL) 32.8 L RDW (11.5 - 14.5 %) 16.9 H Plt Count (130 - 400 /CUMM) 229 MPV (7.4 - 10.4 FL) 7.6 Gran % (42.2 - 75.2 %) 85.3 H Lymphocytes % (20.5 - 51.1 %) 7.5 L Monocytes % (1.7 - 9.3 %) 5.9 Eosinophils % (0 - 5 %) 0.9 Basophils % (0.0 - 2.0 %) 0.4 Absolute Granulocytes (1.4 - 6.5 /CUMM) 12.8 H Absolute Lymphocytes (1.2 - 3.4 /CUMM) 1.1 L Absolute Monocytes (0.10 - 0.60 /CUMM) 0.9 H Absolute Eosinophils (0.0 - 0.7 /CUMM) 0.1 Absolute Basophils (0.0 - 0.2 /CUMM) 0.1
[2017-07-22 16:00] VITALS: BP 138/80
[2017-07-23] VITALS: BP 118/50
--- NOTE | 2017-07-23 07:41 | PN- Resident CRCU ---
Elder CURTIS,[facility] 07/23/17 0740: Subjective HPI/CRCU Issues: # Acute blood loss anemia likely secondary to GI bleeding # Acute hypoxic and hypercarbic respiratory failure likely from fluid overload, on BiPAP # History of colonic perforation status post colostomy # History of hypertension # Type II NM # Marvel on CKD 24 Hour Events: Respiratory therapist at bedside, Patient on high flow oxygen for Bipap weaning trial. She does not report any improvement in her breathing but does mention that her abdominal pain is better this morning. She ate most of her breakfast this am and wants to be advanvced to full liquid diet. Reports hedache without any relief with Fioricet, dilaudid or tylenol. Objective Vital Signs & I&O Last 8 Hrs of Vitals and I&O: Intake & Output 07/23 0800 Intake Total 160 Output Total 250 Balance -90 Intake, IV 100 Intake, Oral 60 Number 0 Bowel Movements Output, Urine 250 Exam General Appearance: alert, awake, mild distress Head: atraumatic, normal appearance Respiratory: chest non-tender, decreased breath sounds Cardiovascular: regular rate/rhythm Gastrointestinal: normal bowel sounds, soft, non-tender, Colostomy bag intact, no fresh blood in the bag Extremities: trace pedal edema, Right ant santana lesion Cranial Nerves: normal hearing, normal speech, PERRL Current Medications: Current Medications Sig/Rick Start time Last Medication Dose Route Stop Time Status Admin Acetaminophen 650 MG .STK-MED ONE 07/22 2312 DC PO 07/22 2313 Acetaminophen 650 MG .STK-MED ONE 07/22 1707 DC PO 07/22 1708 Acetaminophen 650 MG .STK-MED ONE 07/22 1707 DC PO 07/22 1708 Acetaminophen 650 MG Q6P PRN 07/19 1415 AC 07/23 PO 0542 Acetaminophen/ 1 TAB BID PRN 07/22 0930 AC 07/23 Butalbital/Caffeine PO 0751 Albuterol Sulfate 3 ML Q4P PRN 07/19 1245 AC 07/23 INH 0811 Aspirin 81 MG DAILY 07/19 1319 AC 07/23 PO 0935 Carvedilol 6.25 MG BID 07/21 2100 AC 07/23 PO 0935 Ciprofloxacin 400 MG DAILY@1800 07/19 1800 AC 07/22 Dextrose/Water 200 ML IV 1815 Clopidogrel Bisulfate 75 MG DAILY 07/19 1320 AC 07/23 PO 0935 Ferrous Gluconate 324 MG TID 07/23 0900 AC 07/23 PO 0935 Ferrous Gluconate 325 MG TID 07/18 2100 DC 07/22 PO 2027 Furosemide 40 MG ONCE ONE 07/22 1500 DC 07/22 IV 07/22 1501 1507 Furosemide 20 MG ONCE ONE 07/22 1145 CAN IV 07/22 1146 Gabapentin 100 MG Q8 07/18 2200 AC 07/23 PO 0511 Hydromorphone HCl 2 MG Q8 07/20 1400 DC 07/23 PO 0511 Levothyroxine Sodium 0.025 MG DAILY AC 07/19 0700 AC 07/23 PO 0510 Magnesium Oxide 400 MG BID 07/22 0900 DC 07/22 PO 07/22 2101 202 Methylprednisolone 40 MG Q8 07/22 0930 AC 07/23 IV 0511 Metronidazole 500 MG Q8H 07/20 0200 AC 07/23 N/A 1 UNIT IV 0930 Morphine Sulfate 2 MG Q6P PRN 07/23 1100 AC IV Morphine Sulfate 2 MG ONCE ONE 07/23 0930 DC 07/23 IV 07/23 0931 0936 Pantoprazole Sodium 40 MG BID 07/18 1351 AC 07/23 IV 0935 Potassium Phosphate 15 mMol ONE ONE 07/22 0800 DC 07/22 Dextrose/Water 250 ML IV 07/22 1204 0951 Sertraline HCl 25 MG QAM 07/19 0900 AC 07/23 PO 0935 Impression/Plan Impression/Problem List Impression: 76-year-old female with a history of anxiety/depression, rheumatoid arthritis on chronic steroid therapy, previous deep venous thrombosis on chronic anticoagulation with Xarelto (Currently on hold), obesity, obstructive sleep apnea on CPAP, chronic anemia, hypertension, left ventricular hypertrophy with diastolic dysfunction, and aortic regurgiatation who presented to the ED on 07/18/2017 with complaints of jane blood in her colostomy bag FOR 1 d [employer]. She was recently discharged on 07/11/17, after been treated for acute on chronic diastolic CHF, was on xeralto that was stopped due to anemia with dropping H&H and positive Guaiac during her last admission after discussion of risks and benefits with the patient. She was also hospitalized at (06/23-07/02/2017) with symptomatic anemia and modest troponin I elevation, requiring transfusion 2 with no obvious etiology for the bleeding documented and with the plan for an outpatient pill cam. She additionally had evidence of acute on chronic kidney injury, and was seen in consultation by nephrology and gradually improved from that standpoint. Finally , given concerns about underlying coronary artery disease, she was transferred to [facility] where she underwent cardiac catheterization on 07/02/2017 that revealed: LM- patent, LAD- long vessel wrapping around the apex with a ~70% proximal stenosis, LCx- 60% ostial M1, and RCA- dominant and patent, & LV gram- not done. She was admitted to telemetry floor, received 2 units blood transfusion and 2 units FFP as her INR was found to be elevated to 2.36, in the setting with active GI bleeding through the colostomy bag, patient was seen by GI who recommended colonoscopy through ostomy. Cardiology is agreeable to continue dual antiplatelet therapy given recent stent, and keep a close eye on H/H and to transfuse to keep Hgb >8.0. On 07/19 she was transferred to ICU for acute hypoxic and hypercarbic respiratory failure like secondary to fluid overload and was started on BiPAP. Plan Respiratory: Patient was transferred from telemetry floor because of acute hypoxic and hypercarbic respiratory failure. Initial ABGs showed a pH of 7.08 and PCO2 of 81 , repeat ABG on BiPAP showed improved pH of 7.34 and PCO2 of 41. Chest x-ray at that time showed signs of fluid overload, but patient did not seem to have active exacerbation of her diastolic HF at that time. Patient received IV lasix 20mg x 2 and again 40mg x 1(total of 80mg) for fluid overload. Patient continues to be on BiPAP, FiO2 of 25%. * Will continue Bipap PRN, while trying to wean it off * No plan for intubation per patient request * TRC/NEBs as needed * Patient recieved IV lasix 40mg x 1 yesterday because of Pulmonary edema/ congestion but her Cr bumped up from 1.7 to 2.3. Will hold off on lasix today and rassess tomorrow. * Continue empiric solumedrol 40mg Q 8. * F/U Cardio recommendations. Infectious Diseases: * Keep the head of the bed elevated for aspiration precaution * On IV abx per GI for ?? Ischemic colitis * Monitor for any fever * Watch right santana for any infection(per the patient she noticed it after the cardiac catheterization). Patient remains afebrile without any WBC count elevation. Cardiovascular: 1. Type II NM; patient has baseline elevated troponin levels ranging from 0.40- 0.50 likely due to CKD, but started trending up with a peak at 1.10. No new EKG changes or chest pain. * Repeat limited Echo to assess cardiac function and look for wall motion abnormality, given the uptrending trops; showed normal ejection fraction with no regional wall motion abnormalities and stage 3 diastolic dysfunction(similar to previous echo on June) * Repeat * Monitor BP, HR * Appreciate laboratory analyst recommendation * Continue dual antiplatelet therapy(given recent cardiac catheterization and stent placement) * Continue to hold lisinopril * Continue Lasix as needed, hold today Hematology: 1. Acute blood loss anemia likely secondary to GI bleeding , ?? Ischemic colitis; she presented with jane blood in her colostomy bag since one day before her admission. She received 2 units of blood transfusion with improvement in her H&H to 10.9/33.2 and was scheduled for a colonoscopy on 07/19 but was different because of her acute worsening of the respiratory status requiring BiPAP. Her H&H continues to drop down slighly every day. She was prepared for colonoscopy again on 07/21 but was canceled again due to similar reasons. Will reattempt colonoscopy once the patient's respiratory status is more stable. There was also high suspicion for ischemic colitis given the abdominal pain and bleeding starting after the cardiac catheterization; surgical consult was obtained for that reason but suggested that the GI bleeding is likely in the setting of dual antiplatelet therapy that the patient was started on after the cardiac catheterization. CTA abdomen was considered but could not be obtained as patient has a very high risk for ATN per nephro given patient's stage IV CKD and presented with a MARVEL on CKD with a creatinine of 1.7. * Xarelto on hold * Continue aspirin and Plavix given cardiac stent placement * H&H daily and transfuse for Hb<8 * Colonoscopy through ostomy once patient is stable. * We'll start the patient on subcutaneous heparin for DVT prophylaxis tomorrow morning if H&H remains stable. * Continue empiric Abx for 7-10 days. Day 4. * Appreciate GI recommendations * Appreciate general surgery recommendations Metabolic: 1. MARVEL on CKD; patient has stage IV kidney disease and presented with a creatinine of 1.7. Nephrology consult obtained. Recommended holding lasix * Nephrology notified again of patient's rise in Cr. Await recommendation. * Repeat creatinine level in a.m. * Urine culture growing Klebsiella, sensitive to ciprofloxacin, but patient is afebrile with no elevated white cell count. Likely asymptomatic bacteriuria but in any case Patient is already on ciprofloxacin for empiric GI coverage. 2. Electrolyte abnormalities; * Continue to monitor and replete accordingly. Alimentary: * Adavnce diet full liquids today. Neurological: 1. Migraine headaches; patient takes Fioricet at home for migraine headaches. Has been getting the Fioricet in the hospital without much relief. Also no relief with Dilaudid. We'll start the patient on IV morphine 2 mg every 6 as needed, and can decrease the frequency depending on the pain control. - Continue IV morphine 2 mg every 6 when necessary. Diet: Follow liquid diet DVT/Prophylaxis: mechanical(left leg only, no ALPS on right side bcoz of right santana lesion) Code Status: Do Not Resucitate/Intubat Problem List: 1. GI bleed 2. [id number] kidney injury 3. Acute respiratory failure Pain Ratin Pain Location: Headache Pain Goal: Remain pain free Pain Plan: Pain pathway Tomorrow's Labs & Rationales: CBCs ICU bundle Plan DVT/Prophylaxis: mechanical Code Status: Do Not Resucitate/Intubat Lucien Zuniga MD 07/23/17 1216: Attending MD Review Statement Attending Sign Off Attending Cosign Statement: I have: examined this patient, [facility], personally reviewd images, discussd w/resident/PA/SUPERVISOR FINISH [employer], discussed mgmt plan w/amie, discussed mgmt plan w/CM, discussed mgmt plan w/pt, agreed w/resident/PA/SUPERVISOR FINISH [employer], amended to note. Other Findings: Impression 76 year old woman * acute hypoxemic and hypercarbic respiratory failure improving, likely secondary to fluid overload/blood transfusions * acute blood loss anemia/gi bleeding Plan Respiratory -continue to have trials off bipap, tolerates high flow, fio2 goal to support spo2 >92% ID -monitor -aspiration precautions -on cipro and flagyl (10 days) CVS/Heme -f/u cardiology -per cardio and GI - pt remains on asa, plavix, will monitor for any significant further bleeding -f/u GI -LE dopplers do not show DVT - has an anterior right santana lesion Metabolic -ins/outs -creatinine worsened, f/u with nephrology recommendations -electrolyte monitoring Alimentary -clears per GI, will try to advance diet Neuro -monitor closely -will add morphine for pain and dyspnea DVT prophylaxis at all times TTS 35 min DNR/DNI continuing to evaluate overall goals of care.
[2017-07-23 08:00] VITALS: BP 130/60
[2017-07-23 09:44] LABS: ABSOLUTE BASOPHIL COUNT 0 /CUMM (0.0-0.2); ABSOLUTE EOSINOPHIL COUNT 0 /CUMM (0.0-0.7); ABSOLUTE GRANULOCYTE CT 4.8 /CUMM (1.4-6.5); ABSOLUTE LYMPH COUNT 0.4 /CUMM (1.2-3.4); ABSOLUTE MONOCYTE COUNT 0.1 /CUMM (0.10-0.60); BASOPHIL % 0 % (0.0-2.0); EOSINOPHIL % 0 % (0-5); GRANULOCYTE % 91.1 % (42.2-75.2); HEMATOCRIT 28.6 % (37-47); MEAN CORPUSCULAR HGB 30.3 PG (27.0-31.0); MEAN CORPUSCULAR HGB CONC 33.5 G/DL (33.0-37.0); MEAN CORPUSCULAR VOLUME 90.6 FL (81.0-99.0); MEAN PLATELET VOLUME 8.1 FL (7.4-10.4); PLATELET COUNT 209 /CUMM (130-400); RBC DISTRIBUTION WIDTH 16.1 % (11.5-14.5); RED BLOOD CELL CT 3.16 /CUMM (4.20-5.40); WHITE BLOOD CELL COUNT 5.2 /CUMM (4.8-10.8)
[2017-07-23 16:00] VITALS: BP 152/60
--- NOTE | 2017-07-23 17:58 | PN- Cardiology ---
Subjective Subjective: Feels, "a little better today". Objective Vital Signs and I&Os Vital Signs Date Time Temp Pulse Resp B/P B/P Pulse O2 O2 Flow FiO2 Mean Ox Delivery Rate 07/23 1600 98.4 78 16 152/60 95 Nasal 35% Cannula 07/23 1600 95 Nasal 35% Cannula 07/23 1600 96 Nasal 35% Cannula 07/23 1506 96 Nasal 35% Cannula 07/23 1200 95 Nasal 35% Cannula 07/23 1142 Nasal 35% Cannula 07/23 0935 78 154/73 07/23 0810 96 Nasal 35% Cannula 07/23 0800 98.0 64 26 130/60 96 BIPAP 25% 07/23 0800 96 BIPAP 25% 07/23 0800 65 95 07/23 0520 59 95 07/23 0400 99 BIPAP 25% 07/23 0253 59 92 07/23 0048 58 95 07/23 0000 95 BIPAP 25% 07/23 0000 98.3 58 18 118/50 95 BIPAP 25% 07/22 2226 59 95 07/227 98.3 75 17 136/63 07/23 1999 94 BIPAP 25% 07/22 1919 94 Nasal 45% Cannula 07/22 1900 71 95 Intake & Output 07/23 1600 07/23 0800 07/23 0000 07/22 1600 07/22 0800 07/22 0000 Intake Total 760 360 700 850 255 630 Output Total 170 210 250 150 225 275 Balance 590 150 450 700 30 355 Intake, IV 140 120 300 410 130 380 Intake, Oral 620 240 400 440 125 250 Output, Stool 50 100 50 25 50 Output, Urine 120 110 250 100 200 225 Physical Exam: Well-developed, obese elderly female in no acute distress who appears pale and who has oxygen in place. Vital signs: See above. HEENT: Normocephalic, atraumatic, EOMI, moist mucous membranes. Neck: No JVD, no bruits. Lungs: Decreased breath sounds at the bases. Heart: S1, S2 with grade 1/6 systolic murmur. No gallop or rub. Abdomen: Soft, nontender, positive bowel sounds. Extremities: Trace bilateral lower extremity edema. Current Medications: Current Medications Sig/Rick Start time Last Medication Dose Route Stop Time Status Admin Acetaminophen 650 MG .STK-MED ONE 07/23 540 DC PO 07/23 541 Acetaminophen 650 MG .STK-MED ONE 07/22 2312 DC PO 07/22 2313 Acetaminophen 650 MG Q6P PRN 07/19 1415 AC 07/23 PO 0542 Acetaminophen/ 1 TAB BID PRN 07/22 0930 AC 07/23 Butalbital/Caffeine PO 0751 Albuterol Sulfate 3 ML Q4P PRN 07/19 1245 AC 07/23 INH 1506 Aspirin 81 MG DAILY 07/19 1319 AC 07/23 PO 0935 Carvedilol 6.25 MG BID 07/21 2100 AC 07/23 PO 0935 Ciprofloxacin 400 MG DAILY@1800 07/19 1800 AC 07/22 Dextrose/Water 200 ML IV 1815 Clopidogrel Bisulfate 75 MG DAILY 07/19 1320 AC 07/23 PO 0935 Ferrous Gluconate 324 MG TID 07/23 0900 AC 07/23 PO 1350 Ferrous Gluconate 325 MG TID 07/18 2100 DC 07/22 PO 2027 Gabapentin 100 MG Q8 07/18 2200 AC 07/23 PO 1350 Hydromorphone HCl 2 MG Q8 07/20 1400 DC 07/23 PO 0511 Levothyroxine Sodium 0.025 MG DAILY AC 07/19 0700 AC 07/23 PO 0510 Magnesium Oxide 400 MG BID 07/22 09 DC 07/22 PO 07/22 Methylprednisolone 40 MG Q8 07/22 0930 AC 07/23 IV 1350 Metronidazole 500 MG Q8H 07/20 0200 AC 07/23 N/A 1 UNIT IV 1713 Morphine Sulfate 2 MG Q4P PRN 07/23 1415 AC 07/23 IV 1429 Morphine Sulfate 2 MG Q6P PRN 07/23 1100 DC IV Morphine Sulfate 2 MG ONCE ONE 07/23 929 DC 07/23 IV 07/23 0931 0936 Pantoprazole Sodium 40 MG BID 07/18 1351 AC 07/23 IV 0935 Sertraline HCl 25 MG QAM 07/19 0900 AC 07/23 PO 0935 Results Last 48 Hrs of Labs/Mics: Laboratory Tests 07/23/17 0916: Anion Gap 9, Estimated GFR 21 L, Glucose 191 H, Calcium 9.2, Phosphorus 5.6 H , Magnesium 1.9, Total Bilirubin 0.4, AST 15, ALT 21, Albumin 2.4 L, CBC w Diff MAN DIFF ORDERED, RBC 3.16 L, MCV 90.6, MCH 30.3, MCHC 33.5, RDW 16.1 H, MPV 8.1, Gran % 91.1 H, Lymphocytes % 7.6 L, Monocytes % 1.3 L, Eosinophils % 0, Basophils % 0, Absolute Granulocytes 4.8, Segmented Neutrophils 82 H, Band Neutrophils 5, Absolute Lymphocytes 0.4 L, Lymphocytes 11 L, Monocytes 2, Absolute Monocytes 0.1, Absolute Eosinophils 0, Absolute Basophils 0, Platelet Estimate ADEQUATE, Polychromasia 1+, Hypochromic-Microcytic 2+, Anisocytosis 1+ 07/22/17 0434: Anion Gap 7, Estimated GFR 29 L, Glucose 80, Calcium 8.8, Phosphorus 3.8, Magnesium 1.8, Total Bilirubin 0.4, AST 14, ALT 20, Albumin 1.9 L, CBC w Diff NO MAN DIFF REQ, RBC 2.74 L, MCV 91.0, MCH 29.7, MCHC 32.7 L, RDW 17.2 H, MPV 7.7, Gran % 76.8 H, Lymphocytes % 12.8 L, Monocytes % 6.7, Eosinophils % 3.3, Basophils % 0.4, Absolute Granulocytes 4.9, Absolute Lymphocytes 0.8 L, Absolute Monocytes 0.4, Absolute Eosinophils 0.2, Absolute Basophils 0 Recent Imaging Studies: CXR 07/22/2017: No significant change in the appearance of the chest when compared to prior study from 07/20/2017. Findings are suspicious for congestive heart failure with pulmonary edema and bilateral pleural effusions noted. Superimposed bibasilar opacities are most consistent with atelectasis. Close clinical correlation is requested to exclude pneumonia. Echocardiogram 07/23/2017: Normal size left ventricle. Mild concentric left ventricular hypertrophy. Normal left ventricular ejection fraction visually estimated at >65%. Restrictive filling pattern of the left ventricle for age (stage 3 diastolic dysfunction). Normal right ventricular size and function. Mild right atrial dilatation. Moderate left atrial dilatation. Mild mitral regurgitation. Mild aortic regurgitation. Trace tricuspid regurgitation. Trace pulmonic regurgitation. Dilated inferior vena cava. Assessment/Plan Assessment/Plan [id number] w/ hx of anxiety/depression, RA on chronic steroid therapy, DVT previously on Eliquis, obesity, TACO, HTN, LVH, AR, diastolic dysfunction w/ acute on chronic diastolic heart failure (HFpEF), colonic perforation following colonoscopy s/p Constance procedure September 2014 complicated by type II TX, MARVEL, bacteremia, etc. and chronic anemia w/ recent hospitalization for symptomatic anemia that improved w/ transfusion of PRBCs complicated by MARVEL on CKD, etc. who improved w/ standard measures, but w/ subsequent cardiac cath at [facility] that revealed a 70% LAD stenosis that was stented to 0% residual stenosis & ELSY -3 flow who was again admitted (07/07-07/11/2017) w/ worsening chronic weakness, SOB, new bilateral LE edema c/w HFpEF & a modest troponin I elevation likely on the basis of a type II TX who improved w/ standard therapy, but who now returns w/ evidence of GI bleeding on dual antiplatelet Rx for her recent coronary stent. She has a colostomy and is on chronic iron therapy w/ chronically dark colostomy bag contents, but noted blood in her colostomy bag w/ assoc abdominal pain. Her breathing is better today, but she appears to be in heart failure clinically and radiographically with a positive fluid balance and worsening BUN/creatinine. She is hemodynamically stable, would consider IV furosemide, follow-up CXR in the a.m with repeat labs. . Continue telemetry? Not applicable (In ICU.)
[2017-07-23 20:06] VITALS: BP 146/68
[2017-07-24 06:14] LABS: ABSOLUTE BASOPHIL COUNT 0 /CUMM (0.0-0.2); ABSOLUTE EOSINOPHIL COUNT 0 /CUMM (0.0-0.7); ABSOLUTE GRANULOCYTE CT 13.8 /CUMM (1.4-6.5); ABSOLUTE LYMPH COUNT 0.5 /CUMM (1.2-3.4); ABSOLUTE MONOCYTE COUNT 0.3 /CUMM (0.10-0.60); BASOPHIL % 0.2 % (0.0-2.0); EOSINOPHIL % 0 % (0-5); GRANULOCYTE % 94.2 % (42.2-75.2); MEAN CORPUSCULAR HGB 29.4 PG (27.0-31.0); MEAN CORPUSCULAR HGB CONC 31.8 G/DL (33.0-37.0); MEAN CORPUSCULAR VOLUME 92.4 FL (81.0-99.0); MEAN PLATELET VOLUME 7.7 FL (7.4-10.4); PLATELET COUNT 247 /CUMM (130-400); RBC DISTRIBUTION WIDTH 16.9 % (11.5-14.5); RED BLOOD CELL CT 3.14 /CUMM (4.20-5.40)
[2017-07-24 06:41] LABS: WHITE BLOOD CELL COUNT 14.7 /CUMM (4.8-10.8)
--- NOTE | 2017-07-24 07:38 | PN- Resident CRCU ---
Elder CURTIS,[facility] 07/24/17 0738: Subjective HPI/CRCU Issues: # Acute blood loss anemia likely secondary to GI bleeding # Acute hypoxic and hypercarbic respiratory failure likely from fluid overload,? ? CHF exacerbation # History of colonic perforation status post colostomy # History of hypertension # Type II IA # Marvel on CKD 24 Hour Events: Patient resting comfortably, Off Bipap, now on 35% high flow oxygen. Says she has had no more headaches and abdominal pain has resolved after she is started on morphine since yesterday. Reports double vision even with her prespcription glasses, thinks her visionis getting worse and she needs to see her Opthalmologist. Objective Vital Signs & I&O Last 8 Hrs of Vitals and I&O: Intake & Output 07/24 0800 Intake Total 160 Output Total 250 Balance -90 Intake, IV 100 Intake, Oral 60 Number 0 Bowel Movements Output, Urine 250 Exam General Appearance: no apparent distress, alert, comfortable Head: atraumatic, normal appearance Respiratory: chest non-tender, decreased breath sounds Cardiovascular: regular rate/rhythm Gastrointestinal: normal bowel sounds, soft, non-tender, Colostomy Bag intact, Dark green colored stools without any fresh blood Extremities: trace pedal edema, right ant santana lesion tender without any blood or drainage. Cranial Nerves: normal hearing, normal speech, PERRL Current Medications: Current Medications Sig/Rick Start time Last Medication Dose Route Stop Time Status Admin Acetaminophen 650 MG Q6P PRN 07/19 1415 AC 07/23 PO 0542 Acetaminophen/ 1 TAB BID PRN 07/22 0930 AC 07/23 Butalbital/Caffeine PO 0751 Albuterol Sulfate 3 ML Q4P PRN 07/19 1245 AC 07/23 INH 1506 Aspirin 81 MG DAILY 07/19 1319 AC 07/24 PO 0835 Carvedilol 6.25 MG BID 07/21 2100 AC 07/24 PO 0835 Ciprofloxacin 400 MG DAILY@1800 07/19 1800 AC 07/23 Dextrose/Water 200 ML IV 1818 Clopidogrel Bisulfate 75 MG DAILY 07/19 1320 AC 07/24 PO 0836 Ferrous Gluconate 324 MG TID 07/23 0900 AC 07/24 PO 0836 Ferrous Gluconate 325 MG TID 07/18 2100 DC 07/22 PO 202 Furosemide 20 MG ONCE ONE 07/23 183 DC 07/23 IV 07/23 1831 1832 Gabapentin 100 MG Q8 07/18 2200 AC 07/24 PO 0512 Hydromorphone HCl 2 MG Q8 07/20 1400 DC 07/23 PO 0511 Levothyroxine Sodium 0.025 MG DAILY AC 07/19 0700 AC 07/24 PO 0628 Methylprednisolone 40 MG Q8 07/22 0930 AC 07/24 IV 0512 Metronidazole 500 MG Q8H 07/20 0200 AC 07/24 N/A 1 UNIT IV 0102 Morphine Sulfate 2 MG Q4P PRN 07/23 1415 AC 07/24 IV 0101 Morphine Sulfate 2 MG Q6P PRN 07/23 1100 DC IV Morphine Sulfate 2 MG ONCE ONE 07/23 0930 DC 07/23 IV 07/23 0931 0936 Pantoprazole Sodium 40 MG BID 07/18 1351 AC 07/24 IV 0836 Sertraline HCl 25 MG QAM 07/19 0900 AC 07/23 PO 0935 Impression/Plan Impression/Problem List Impression: 76-year-old female with a history of anxiety/depression, rheumatoid arthritis on chronic steroid therapy, previous deep venous thrombosis on chronic anticoagulation with Xarelto (Currently on hold), obesity, obstructive sleep apnea on CPAP, chronic anemia, hypertension, left ventricular hypertrophy with diastolic dysfunction, and aortic regurgiatation who presented to the ED on 07/18/2017 with complaints of jane blood in her colostomy bag FOR 1 d [employer]OUS[employer]. She was recently discharged on 07/11/17, after been treated for acute on chronic diastolic CHF, was on xeralto that was stopped due to anemia with dropping H&H and positive Guaiac during her last admission after discussion of risks and benefits with the patient. She was also hospitalized at (06/23-07/02/2017) with symptomatic anemia and modest troponin I elevation, requiring transfusion 2 with no obvious etiology for the bleeding documented and with the plan for an outpatient pill cam. She additionally had evidence of acute on chronic kidney injury, and was seen in consultation by nephrology and gradually improved from that standpoint. Finally , given concerns about underlying coronary artery disease, she was transferred to [facility] where she underwent cardiac catheterization on 07/02/2017 that revealed: LM- patent, LAD- long vessel wrapping around the apex with a ~70% proximal stenosis, LCx- 60% ostial M1, and RCA- dominant and patent, & LV gram- not done. She was admitted to telemetry floor, received 2 units blood transfusion and 2 units FFP as her INR was found to be elevated to 2.36, in the setting with active GI bleeding through the colostomy bag, patient was seen by GI who recommended colonoscopy through ostomy. Cardiology is agreeable to continue dual antiplatelet therapy given recent stent, and keep a close eye on H/H and to transfuse to keep Hgb >8.0. On 07/19 she was transferred to ICU for acute hypoxic and hypercarbic respiratory failure like secondary to fluid overload and was started on BiPAP. Plan Respiratory: Patient was transferred from telemetry floor because of acute hypoxic and hypercarbic respiratory failure. Initial ABGs showed a pH of 7.08 and PCO2 of 81 , repeat ABG on BiPAP showed improved pH of 7.34 and PCO2 of 41. Chest x-ray at that time showed signs of fluid overload, but patient did not seem to have active exacerbation of her diastolic HF at that time. Patient was weaned off Bipap on 07/23/17. * Continue High flow oxygen 35% while trying to wean it off * No plan for intubation per patient request * TRC/NEBs as needed * Repeat chest x-ray this morning shows increase in size of bilateral pleural effusions with persistent pulmonary vascular congestion, most likely from exacerbation of her diastolic heart failure with patient does not have any JVD, crackles or overt lower extremity edema on examination. She has been receiving IV Lasix when necessary because of her MARVEL. Awaiting nephrology recommendations regarding starting the patient on scheduled IV Lasix. * Empiric solumedrol; decrease from 40mg Q8 to Q12. * F/U Cardio recommendations. Infectious Diseases: * Keep the head of the bed elevated for aspiration precaution * On empiric IV abx per GI * Monitor for any fever * Watch right santana for any infection(per the patient she noticed it after the cardiac catheterization). Patient remains afebrile with WBC count of 14.7 this am but has remained normal before. Pt has receiving Solumedrol for the past 2 days which could be the reason for her elevated white blood cell count this morning. Will decrease dose of solumedrol to Q12. Cardiovascular: 1. Type II IA; patient has baseline elevated troponin levels ranging from 0.40- 0.50 likely due to CKD, but started trending up with a peak at 1.10. No new EKG changes or chest pain. * Repeat limited Echo to assess cardiac function and look for wall motion abnormality, given the uptrending trops; showed normal ejection fraction with no regional wall motion abnormalities and stage 3 diastolic dysfunction(similar to previous echo on June) * Monitor BP, HR * Appreciate child development teacher recommendation * Continue dual antiplatelet therapy(given recent cardiac catheterization and stent placement) * Continue to hold lisinopril * Continue Lasix as needed Hematology: 1. Acute blood loss anemia likely secondary to GI bleeding , ?? Ischemic colitis; she presented with jane blood in her colostomy bag since one day before her admission. She received 2 units of blood transfusion with improvement in her H&H to 10.9/33.2 and was scheduled for a colonoscopy on 07/19 but was different because of her acute worsening of the respiratory status requiring BiPAP. Her H&H continues to drop down slighly every day. She was prepared for colonoscopy again on 07/21 but was canceled again due to similar reasons. Will reattempt colonoscopy once the patient's respiratory status is more stable. There was also high suspicion for ischemic colitis given the abdominal pain and bleeding starting after the cardiac catheterization; surgical consult was obtained for that reason but suggested that the GI bleeding is likely in the setting of dual antiplatelet therapy that the patient was started on after the cardiac catheterization. CTA abdomen was considered but could not be obtained as patient has a very high risk for ATN per nephro given patient's stage IV CKD and presented with a MARVEL on CKD with a creatinine of 1.7. * Xarelto on hold * Continue aspirin and Plavix given recent cardiac stent placement * H&H daily and transfuse for Hb<8 * Colonoscopy through ostomy once patient is stable. * Continue empiric Abx for 7-10 days. Day 6. * Appreciate GI recommendations * Appreciate general surgery recommendations Metabolic: 1. MARVEL on CKD; patient has stage IV kidney disease and presented with a creatinine of 1.7. Nephrology consult obtained. Recommended holding lasix * Nephrology notified again of patient's rise in Cr. Await recommendation. * Repeat creatinine level in a.m. * Urine culture growing Klebsiella, sensitive to ciprofloxacin, but patient is afebrile with no elevated white cell count. Likely asymptomatic bacteriuria but in any case Patient is already on ciprofloxacin for empiric GI coverage. 2. Electrolyte abnormalities; * Continue to monitor and replete accordingly. Alimentary: * Full liquid diet. Neurological: 1. Migraine headaches; patient takes Fioricet at home for migraine headaches. She had been getting Fioricet in the hospital without much relief. Also had no relief with Dilaudid. Patient was started on IV morphine 2 mg every 6 as needed, currently on morphine Q4 with resolution of her headache and abdominal pain. - Continue IV morphine 2 mg every 4 when necessary. Diet: Full liquid diet DVT/Prophylaxis: mechanical(left leg only, no ALPS on right side bcoz of right santana lesion) Code Status: Do Not Resucitate/Intubat Problem List: 1. MARVEL (acute kidney injury) 2. GI bleed 3. Acute blood loss anemia Pain Ratin Pain Location: NA Pain Goal: Remain pain free Pain Plan: NA Tomorrow's Labs & Rationales: CBC ICU Bundle Plan DVT/Prophylaxis: mechanical, pharmacological Code Status: Do Not Resucitate/Intubat Lucien Zuniga MD 07/24/17 0936: Attending MD Review Statement Attending Sign Off Attending Cosign Statement: I have: examined this patient, reviewed bookjam EMR data, personally reviewd images, discussd w/resident/PA/INSOLE TAPER, discussed mgmt plan w/amie, discussed mgmt plan w/CM, discussed mgmt plan w/pt, agreed w/resident/PA/INSOLE TAPER, amended to note. Other Findings: Impression 76 year old woman * acute hypoxemic and hypercarbic respiratory failure improving, likely secondary to fluid overload/blood transfusions * acute blood loss anemia/gi bleeding Plan Respiratory -continue to have trials off bipap, tolerates high flow, fio2 goal to support spo2 >92% -reduce solumedrol to 40mg iv q12h ID -monitor -aspiration precautions -on cipro and flagyl (10 days) -leukocytosis likely steroid related CVS/Heme -f/u cardiology -per cardio and GI - pt remains on asa, plavix, will monitor for any significant further bleeding Metabolic -ins/outs, electrolyte monitoring -creatinine worsened, f/u with nephrology recommendations Alimentary -advance diet as tolerated Neuro -monitor closely -morphine for pain and dyspnea DVT prophylaxis at all times TTS 35 min DNR/DNI continuing to evaluate overall goals of care.
[2017-07-24 08:00] VITALS: BP 126/74
--- NOTE | 2017-07-24 08:08 | RADIOLOGY REPORT ---
EXAMINATION: XR PORTABLE CHEST CLINICAL INFORMATION: CHF exacerbation. Shortness of breath. COMPARISON: Chest done on 07/22/2017. TECHNIQUE: Portable frontal view of the chest was obtained. FINDINGS: Previously documented bilateral pleural effusions show interval increase in size with increasing bibasilar and bilateral perihilar airspace disease. There is low lung volume present bilaterally, appear decreased since prior study. The cardiomediastinal silhouette remain enlarged. There is pulmonary venous congestion present. Overall interval progression since prior study. IMPRESSION: Interval progression of disease since 07/22/2017.
--- NOTE | 2017-07-24 13:58 | PN- Nephrology ---
Assessment/Plan Nephrology Assessment: MARVEL Cr stable. Please seen Dr. Velazquez's original consult. As in his note okay to use lasix as needed. Given good BP and edema consider use of daily lasix. Rodriguez Olivares MD. Suggestion: . Subjective Subjective: Asked to resee pt for renal failure. Cr 2.3 (a bit up but in area it had been this hospitalization). Feels better. CXR with bilat pleural effusion. Objective Vital Signs and I&Os F In ICU NAD BP 121/55 77 97.9 Lungs clear diminished bases Cor RRR Abd soft 2+sacral edema 1+ LE edema Results Pertinent Lab Results: 138 / 106 / 41 / 4.8 / 21 / 2.3\ CXR bilat pleural effusion.
[2017-07-24 16:00] VITALS: BP 142/70
--- NOTE | 2017-07-24 17:15 | PN- Cardiology ---
Subjective Subjective: Feels as though her breathing has continued to slowly improve. Abdominal discomfort also improved after initiation of morphine sulfate. . Objective Vital Signs and I&Os Vital Signs Date Time Temp Pulse Resp B/P B/P Pulse O2 O2 Flow FiO2 Mean Ox Delivery Rate 07/24 1605 97 Nasal 35% Cannula 07/24 1408 96 Nasal 35% Cannula 07/24 1330 97 Nasal 4.0L Cannula 07/24 0853 96 Nasal 35% Cannula 07/24 0835 77 121/55 07/24 08 96 Nasal 35% Cannula 07/24 0800 97.9 68 18 126/74 97 Nasal 35% Cannula 07/24 0522 96 Nasal 35% Cannula 07/24 0000 96 Nasal 35% Cannula 07/23 2336 95 Nasal 35% Cannula 07/23 2222 97 Nasal 35% Cannula 07/23 2202 74 132/60 07/23 2005 96 Nasal 35% Cannula 07/23 2005 98.3 74 20 146/68 96 Nasal 35% Cannula 07/23 1920 98 Nasal 35% Cannula Intake & Output 07/24 1600 07/24 0800 07/24 0000 07/23 1600 07/23 0800 07/23 0000 Intake Total 530 160 790 760 360 700 Output Total 400 250 380 170 210 250 Balance 130 -90 410 590 150 450 Intake, IV 130 100 370 140 120 300 Intake, Oral 400 60 420 620 240 400 Number 0 Bowel Movements Output, Stool 0 50 100 Output, Urine 400 250 380 120 110 250 Physical Exam: Well-developed, obese elderly female in no acute distress with oxygen in place. Vital signs: See above. Neck: No JVD, no bruits. Lungs: Decreased breath sounds bilaterally. Heart: S1, S2 with grade 1/6 systolic murmur. Abdomen: Soft, nontender, positive bowel sounds. Extremities: No edema. Current Medications: Current Medications Sig/Rick Start time Last Medication Dose Route Stop Time Status Admin Acetaminophen 650 MG Q6P PRN 07/19 1415 AC 07/23 PO 0542 Acetaminophen/ 1 TAB BID PRN 07/22 0930 AC 07/23 Butalbital/Caffeine PO 0751 Albuterol Sulfate 3 ML Q4P PRN 07/19 1245 AC 07/24 INH 0918 Aspirin 81 MG DAILY 07/19 1319 AC 07/24 PO 0835 Carvedilol 6.25 MG BID 07/21 2100 AC 07/24 PO 0835 Ciprofloxacin 400 MG DAILY@1800 07/19 1800 AC 07/23 Dextrose/Water 200 ML IV 1818 Clopidogrel Bisulfate 75 MG DAILY 07/19 1320 AC 07/24 PO 0836 Ferrous Gluconate 324 MG TID 07/23 0900 AC 07/24 PO 1423 Furosemide 20 MG ONCE ONE 07/23 1830 DC 07/23 IV 07/23 1831 1832 Gabapentin 100 MG Q8 07/18 2200 AC 07/24 PO 1423 Levothyroxine Sodium 0.025 MG DAILY AC 07/19 0700 AC 07/24 PO 0628 Methylprednisolone 40 MG Q12 07/24 2100 AC IV Methylprednisolone 40 MG Q8 07/22 0930 DC 07/24 IV 0512 Metronidazole 500 MG Q8H 07/20 0200 AC 07/24 N/A 1 UNIT IV 0935 Morphine Sulfate 2 MG Q4P PRN 07/23 1415 AC 07/24 IV 1422 Pantoprazole Sodium 40 MG BID 07/18 1351 AC 07/24 IV 0836 Sertraline HCl 25 MG QAM 07/19 09 AC 07/24 PO 0935 Results Last 48 Hrs of Labs/Mics: Laboratory Tests 07/24/17 0555: CBC w Diff MAN DIFF ORDERED, RBC 3.14 L, MCV 92.4, MCH 29.4, MCHC 31.8 L, RDW 16.9 H, MPV 7.7, Gran % 94.2 H, Lymphocytes % 3.4 L, Monocytes % 2.2, Eosinophils % 0, Basophils % 0.2, Absolute Granulocytes 13.8 H, Segmented Neutrophils 92 H, Band Neutrophils 4, Absolute Lymphocytes 0.5 L, Lymphocytes 3 L, Monocytes 1 L, Absolute Monocytes 0.3, Absolute Eosinophils 0, Absolute Basophils 0, Platelet Estimate ADEQUATE, Normocytic RBCs VERIFIED, Normochromic RBCs VERIFIED 07/24/17 0350: Anion Gap 11, Estimated GFR 21 L, Glucose 120 H, Calcium 8.6, Phosphorus 6.0 H, Magnesium 1.9, Total Bilirubin 0.3, AST 12 L, ALT 30, Albumin 2.4 L 07/23/17 0916: Anion Gap 9, Estimated GFR 21 L, Glucose 191 H, Calcium 9.2, Phosphorus 5.6 H , Magnesium 1.9, Total Bilirubin 0.4, AST 15, ALT 21, Albumin 2.4 L, CBC w Diff MAN DIFF ORDERED, RBC 3.16 L, MCV 90.6, MCH 30.3, MCHC 33.5, RDW 16.1 H, MPV 8.1, Gran % 91.1 H, Lymphocytes % 7.6 L, Monocytes % 1.3 L, Eosinophils % 0, Basophils % 0, Absolute Granulocytes 4.8, Segmented Neutrophils 82 H, Band Neutrophils 5, Absolute Lymphocytes 0.4 L, Lymphocytes 11 L, Monocytes 2, Absolute Monocytes 0.1, Absolute Eosinophils 0, Absolute Basophils 0, Platelet Estimate ADEQUATE, Polychromasia 1+, Hypochromic-Microcytic 2+, Anisocytosis 1+ Recent Imaging Studies: CXR 07/24/2017: Previously documented bilateral pleural effusions show interval increase in size with increasing bibasilar and bilateral perihilar airspace disease. There is low lung volume present bilaterally, appear decreased since prior study. The cardiomediastinal silhouette remain enlarged. There is pulmonary venous congestion present. Overall interval progression since prior study. IMPRESSION: Interval progression of disease since 07/22/2017. Assessment/Plan Assessment/Plan [id number] w/ hx of anxiety/depression, RA on chronic steroid therapy, DVT previously on Eliquis, obesity, TACO, HTN, LVH, AR, diastolic dysfunction w/ acute on chronic diastolic heart failure (HFpEF), colonic perforation following colonoscopy s/p Constance procedure September 2014 complicated by type II DC, MARVEL, bacteremia, etc. and chronic anemia w/ recent hospitalization for symptomatic anemia that improved w/ transfusion of PRBCs complicated by MARVEL on CKD, etc. who improved w/ standard measures, but w/ subsequent cardiac cath at [facility] that revealed a 70% LAD stenosis that was stented to 0% residual stenosis & ELSY -3 flow who was again admitted (07/07-07/11/2017) w/ worsening chronic weakness, SOB, new bilateral LE edema c/w HFpEF & a modest troponin I elevation likely on the basis of a type II DC who improved w/ standard therapy, but who now returns w/ evidence of GI bleeding on dual antiplatelet Rx for her recent coronary stent. She has a colostomy and is on chronic iron therapy w/ chronically dark colostomy bag contents, but noted blood in her colostomy bag w/ assoc abdominal pain. Her breathing is better today, but she appears to be in heart failure clinically and radiographically with a positive fluid balance and worsening BUN/creatinine. Worsening CXR, hemodynamically stable, and would initiate IV furosemide therapy. Recommendations: * IV furosemide. * Follow-up CXR in AM. * DVT prophylaxis. Continue telemetry? Not applicable (In ICU.)
[2017-07-25] VITALS: BP 130/70
[2017-07-25 08:00] VITALS: BP 156/80
--- NOTE | 2017-07-25 08:08 | RADIOLOGY REPORT ---
EXAMINATION: XR PORTABLE CHEST CLINICAL INFORMATION: CHF exacerbation. COMPARISON: Chest radiograph 07/24/2017. TECHNIQUE: Portable frontal view of the chest was obtained. FINDINGS: There are low lung volumes and bilateral [id number] sized pleural effusions which is slightly greater on the right and associated bibasilar atelectasis. The upper lungs are clear. There is cardiomegaly but the heart borders are partly obscured. There are advanced degenerative changes at the left more than right glenohumeral joints. Cardiac monitoring leads overlie the chest. IMPRESSION: Low lung volumes with bilateral [id number] sized pleural effusions slightly larger on the right.
--- NOTE | 2017-07-25 09:05 | PN- Resident CRCU ---
See Addendum Elder CURTIS,[facility] 07/25/17 0905: Subjective HPI/CRCU Issues: # Acute blood loss anemia likely secondary to GI bleeding - resolved # Acute hypoxic and hypercarbic respiratory failure likely from fluid overload,? ? CHF exacerbation # History of colonic perforation status post colostomy # History of hypertension # Type II [place] # Bonita on CKD 24 Hour Events: Patient reports feeling better today but still short of breath and using her accesary muscles to breathe. Headaches and abdominal pain are almost resolved with morphine. States she feels tired/sleepy because she has been up since 3am. Denies any chest pain, palpitations, fever/chills or any overnight events. Objective Vital Signs & I&O Last 8 Hrs of Vitals and I&O: Intake & Output 07/25 1600 Intake Total 890 Output Total 850 Balance 40 Intake, IV 170 Intake, Oral 720 Output, Stool 0 Output, Urine 850 Exam General Appearance: alert, awake, mild distress, thin Head: atraumatic, normal appearance Respiratory: chest non-tender, decreased breath sounds (bilateral lung bases) Cardiovascular: regular rate/rhythm Gastrointestinal: normal bowel sounds, soft, non-tender Extremities: +1 pitting edema, Right anterior santana lesion improving Cranial Nerves: normal hearing, normal speech, PERRL Current Medications: Current Medications Sig/Rick Start time Last Medication Dose Route Stop Time Status Admin Acetaminophen 650 MG Q6P PRN 07/19 1415 AC 07/23 PO 0542 Acetaminophen/ 1 TAB BID PRN 07/22 0930 AC 07/23 Butalbital/Caffeine PO 0751 Albuterol Sulfate 3 ML Q4P PRN 07/19 1245 AC 07/24 INH 0918 Aspirin 81 MG DAILY 07/19 1319 AC 07/25 PO 0832 Carvedilol 6.25 MG BID 07/21 2100 AC 07/25 PO 0832 Ciprofloxacin 400 MG DAILY@1800 07/19 1800 AC 07/24 Dextrose/Water 200 ML IV 1750 Clopidogrel Bisulfate 75 MG DAILY 07/19 1320 AC 07/25 PO 0831 Ferrous Gluconate 324 MG TID 07/23 0900 AC 07/25 PO 0831 Furosemide 20 MG ONCE ONE 07/24 1900 DC 07/24 IV 07/24 1901 2041 Gabapentin 100 MG Q8 07/18 2200 AC 07/25 PO 0605 Heparin Sodium 5,000 UNIT Q8 07/25 0919 AC (Porcine) SC Levothyroxine Sodium 0.025 MG DAILY AC 07/19 0700 AC 07/25 PO 0605 Methylprednisolone 40 MG Q12 07/24 2100 DC 07/25 IV 0832 Metronidazole 500 MG Q8H 07/20 0200 AC 07/25 N/A 1 UNIT IV 0143 Morphine Sulfate 2 MG Q4P PRN 07/23 1415 AC 07/25 IV 0314 Pantoprazole Sodium 40 MG BID 07/18 1351 AC 07/25 IV 0832 Prednisone 40 MG DAILY 07/26 0900 AC PO Sertraline HCl 25 MG QAM 07/19 0900 AC 07/25 PO 0831 Sodium Chloride 2 SPRAY Q4P PRN 07/24 1730 AC NAOMIE Impression/Plan Impression/Problem List Impression: 76-year-old female with a history of anxiety/depression, rheumatoid arthritis on chronic steroid therapy, previous deep venous thrombosis on chronic anticoagulation with Xarelto (Currently on hold), obesity, obstructive sleep apnea on CPAP, chronic anemia, hypertension, left ventricular hypertrophy with diastolic dysfunction, and aortic regurgiatation who presented to the ED on 07/18/2017 with complaints of jane blood in her colostomy bag FOR 1 d [employer]. She was recently discharged on 07/11/17, after been treated for acute on chronic diastolic CHF, was on xeralto that was stopped due to anemia with dropping H&H and positive Guaiac during her last admission after discussion of risks and benefits with the patient. She was also hospitalized at (06/23-07/02/2017) with symptomatic anemia and modest troponin I elevation, requiring transfusion 2 with no obvious etiology for the bleeding documented and with the plan for an outpatient pill cam. She additionally had evidence of acute on chronic kidney injury, and was seen in consultation by nephrology and gradually improved from that standpoint. Finally , given concerns about underlying coronary artery disease, she was transferred to [facility] where she underwent cardiac catheterization on 07/02/2017 that revealed: LM- patent, LAD- long vessel wrapping around the apex with a ~70% proximal stenosis, LCx- 60% ostial M1, and RCA- dominant and patent, & LV gram- not done. She was admitted to telemetry floor, received 2 units blood transfusion and 2 units FFP as her INR was found to be elevated to 2.36, in the setting with active GI bleeding through the colostomy bag, patient was seen by GI who recommended colonoscopy through ostomy. Cardiology is agreeable to continue dual antiplatelet therapy given recent stent, and keep a close eye on H/H and to transfuse to keep Hgb >8.0. On 07/19 she was transferred to ICU for acute hypoxic and hypercarbic respiratory failure like secondary to fluid overload and was started on BiPAP. Plan Respiratory: Patient was transferred from telemetry floor because of acute hypoxic and hypercarbic respiratory failure. Initial ABGs showed a pH of 7.08 and PCO2 of 81 , repeat ABG on BiPAP showed improved pH of 7.34 and PCO2 of 41. Chest x-ray at that time showed signs of fluid overload, but patient did not seem to have active exacerbation of her diastolic HF at that time. Patient was weaned off Bipap on 07/23/17. * Continue High flow oxygen 35% while trying to wean it off * No plan for intubation per patient request * TRC/NEBs as needed * IV lasix 40mg once today, reasses in am. * D/C solumedrola nd start the patient on Prednisone 40mg daily with a quick taper. * F/U Cardio recommendations. Infectious Diseases: * Keep the head of the bed elevated for aspiration precaution * On empiric IV abx per GI * Monitor for any fever * Watch right santana for any infection(per the patient she noticed it after the cardiac catheterization). Afebrile with elevated WBC count likely secondary to steroid use, trending down. Cardiovascular: 1. Type II [place]; patient has baseline elevated troponin levels ranging from 0.40- 0.50 likely due to CKD, but started trending up with a peak at 1.10. No new EKG changes or chest pain. * Repeat limited Echo to assess cardiac function and look for wall motion abnormality, given the uptrending trops; showed normal ejection fraction with no regional wall motion abnormalities and stage 3 diastolic dysfunction(similar to previous echo on June) * Monitor BP, HR * Appreciate informatics spec recommendation * Continue dual antiplatelet therapy(given recent cardiac catheterization and stent placement) * Continue to hold lisinopril * Continue Lasix as needed Hematology: 1. Acute blood loss anemia likely secondary to GI bleeding , ?? Ischemic colitis; she presented with jane blood in her colostomy bag since one day before her admission. She received 2 units of blood transfusion with improvement in her H&H to 10.9/33.2 and was scheduled for a colonoscopy on 07/19 but was different because of her acute worsening of the respiratory status requiring BiPAP. Her H&H continues to drop down slighly every day. She was prepared for colonoscopy again on 07/21 but was canceled again due to similar reasons. Will reattempt colonoscopy once the patient's respiratory status is more stable. There was also high suspicion for ischemic colitis given the abdominal pain and bleeding starting after the cardiac catheterization; surgical consult was obtained for that reason but suggested that the GI bleeding is likely in the setting of dual antiplatelet therapy that the patient was started on after the cardiac catheterization. CTA abdomen was considered but could not be obtained as patient has a very high risk for ATN per nephro given patient's stage IV CKD and presented with a BONITA on CKD with a creatinine of 1.7. * Xarelto on hold * Continue aspirin and Plavix given recent cardiac stent placement * H&H daily and transfuse for Hb<8 * Colonoscopy through ostomy once patient is stable. * Continue empiric Abx for 7-10 days. Day 7. * Appreciate GI recommendations * Appreciate general surgery recommendations Metabolic: 1. BONITA on CKD; patient has stage IV kidney disease and presented with a creatinine of 1.7. Nephrology consult obtained. * Can continue IV Lasix PRN per nephro. * Repeat creatinine level in a.m. * Urine culture growing Klebsiella, sensitive to ciprofloxacin, but patient is afebrile with no elevated white cell count. Likely asymptomatic bacteriuria but in any case Patient is already on ciprofloxacin for empiric GI coverage. 2. Electrolyte abnormalities; * Continue to monitor and replete accordingly. Alimentary: * Full liquid diet. Neurological: 1. Migraine headaches; patient takes Fioricet at home for migraine headaches. She had been getting Fioricet in the hospital without much relief. Also had no relief with Dilaudid. Patient was started on IV morphine 2 mg every 6 as needed, currently on morphine Q4 with resolution of her headache and abdominal pain. - Continue IV morphine 2 mg every 4 when necessary. Diet: Full liquid diet DVT/Prophylaxis: mechanical(left leg only, no ALPS on right side bcoz of right santana lesion), [facility] Code Status: Do Not Resucitate/Intubat Problem List: 1. GI bleed 2. Acute respiratory failure Pain Ratin Pain Location: NA Pain Goal: Remain pain free Pain Plan: Pain Pathway Tomorrow's Labs & Rationales: CBC ICU bundle Plan DVT/Prophylaxis: mechanical, pharmacological Code Status: Do Not Resucitate/Intubat Nadia CURTIS,Lucien 07/25/17 0929: Attending MD Review Statement Attending Sign Off Attending Cosign Statement: I have: examined this patient, reviewed aval EMR data, personally reviewd images, discussd w/resident/PA/HAND PAINT MIXER, discussed mgmt plan w/amie, discussed mgmt plan w/CM, discussed mgmt plan w/pt, agreed w/resident/PA/HAND PAINT MIXER, amended to note. Other Findings: Impression 76 year old woman * Improving - respiratory failure improving, likely secondary to fluid overload/ blood transfusions * resolved - acute blood loss anemia/gi bleeding Plan Respiratory -continue to have trials off bipap, tolerates high flow, fio2 goal to support spo2 >92% -dc solumedrol -begin prednisone 40mg x 2 days, 30x2, 20x2, 10x2, then stop ID -monitor -aspiration precautions -on cipro and flagyl (10 days total) -leukocytosis likely steroid related - improving with taper CVS/Heme -f/u cardiology -per cardio and GI - pt remains on asa, plavix, will monitor for any significant further bleeding Metabolic -ins/outs, electrolyte monitoring -creatinine worsened but stable, f/u nephrology recommendations Alimentary -tolerating diet Neuro -morphine for pain and dyspnea DVT prophylaxis at all times TTS 35 min DNR/DNI continuing to evaluate overall goals of care. Downgrade to telemetry
[2017-07-25 09:09] LABS: ABSOLUTE BASOPHIL COUNT 0 /CUMM (0.0-0.2); ABSOLUTE EOSINOPHIL COUNT 0 /CUMM (0.0-0.7); ABSOLUTE GRANULOCYTE CT 11.3 /CUMM (1.4-6.5); ABSOLUTE LYMPH COUNT 0.7 /CUMM (1.2-3.4); ABSOLUTE MONOCYTE COUNT 0.4 /CUMM (0.10-0.60); BASOPHIL % 0.2 % (0.0-2.0); EOSINOPHIL % 0 % (0-5); HEMATOCRIT 28.3 % (37-47); MEAN CORPUSCULAR HGB 29.9 PG (27.0-31.0); MEAN CORPUSCULAR HGB CONC 32.5 G/DL (33.0-37.0); MEAN CORPUSCULAR VOLUME 91.8 FL (81.0-99.0); MEAN PLATELET VOLUME 7.8 FL (7.4-10.4); PLATELET COUNT 193 /CUMM (130-400); RBC DISTRIBUTION WIDTH 17.3 % (11.5-14.5); RED BLOOD CELL CT 3.08 /CUMM (4.20-5.40); WHITE BLOOD CELL COUNT 12.4 /CUMM (4.8-10.8)
[2017-07-25 09:23] LABS: GRANULOCYTE % 91.1 % (42.2-75.2)
[2017-07-25 15:09] VITALS: BP 150/76
--- NOTE | 2017-07-25 15:38 | PN- Cardiology ---
Subjective Subjective: Her breathing is better today. Objective Vital Signs and I&Os Vital Signs Date Time Temp Pulse Resp B/P B/P Pulse O2 O2 Flow FiO2 Mean Ox Delivery Rate 07/25 1509 98.5 72 22 150/76 97 Nasal 4.0L Cannula 07/25 1104 Nasal 35% Cannula 07/25 0900 96 Nasal 35% Cannula 07/25 0832 74 158/63 07/25 0800 97 Nasal 35% Cannula 07/25 0800 99.3 72 18 156/80 97 Nasal 35% Cannula 07/25 0400 95 Nasal 35% Cannula 07/25 0320 97 Nasal 35% Cannula 07/25 0000 95 Nasal 35% Cannula 07/25 0000 98.6 69 18 130/70 95 Nasal 35% Cannula 07/24 2213 96 Nasal 35% Cannula 07/24 2106 73 18 105/53 07/24 2024 95 Nasal 35% Cannula 07/24 1908 95 Nasal 35% Cannula 07/24 1605 97 Nasal 35% Cannula 07/24 1600 98.3 68 24 142/70 96 Nasal 35% Cannula 07/24 1600 96 Nasal 35% Cannula Intake & Output 07/25 1600 07/25 0800 05/04 0000 05/03 1600 07/24 0800 05 0000 Intake Total 890 200 660 530 160 790 Output Total 850 310 400 250 380 Balance 40 200 350 130 -90 410 Intake, IV 170 330 130 100 370 Intake, Oral 720 200 330 400 60 420 Number 0 Bowel Movements Output, Stool 0 0 0 Output, Urine 850 310 400 250 380 Physical Exam: Well-developed, obese elderly female in no acute distress with oxygen in place. Vital signs: See above. Neck: No JVD, no bruits. Lungs: Decreased breath sounds bilaterally. Heart: S1, S2 with grade 1/6 systolic murmur. Abdomen: Soft, nontender, positive bowel sounds. Extremities: No edema. Current Medications: Current Medications Sig/Rick Start time Last Medication Dose Route Stop Time Status Admin Acetaminophen 650 MG Q6P PRN 07/19 1415 AC 07/25 PO 1358 Acetaminophen/ 1 TAB BID PRN 07/22 0930 AC 07/23 Butalbital/Caffeine PO 0751 Albuterol Sulfate 3 ML Q4P PRN 07/19 1245 AC 07/24 INH 0918 Aspirin 81 MG DAILY 07/19 1319 AC 07/25 PO 0832 Carvedilol 6.25 MG BID 07/21 2100 AC 07/25 PO 0832 Ciprofloxacin 400 MG DAILY@1800 07/19 1800 AC 07/24 Dextrose/Water 200 ML IV 07/29 1999 1750 Clopidogrel Bisulfate 75 MG DAILY 07/19 1320 AC 07/25 PO 0831 Ferrous Gluconate 324 MG TID 07/23 0900 AC 07/25 PO 1358 Furosemide 40 MG ONCE ONE 07/25 0945 DC 07/25 IV 07/25 0946 1006 Furosemide 20 MG ONCE ONE 07/24 1900 DC 07/24 IV 07/24 1901 2041 Gabapentin 100 MG Q8 07/18 2200 AC 07/25 PO 1507 Heparin Sodium 5,000 UNIT Q8 07/25 0919 AC 07/25 (Porcine) SC 1357 Levothyroxine Sodium 0.025 MG DAILY AC 07/19 0700 AC 07/25 PO 0605 Methylprednisolone 40 MG Q12 07/24 2100 DC 07/25 IV 0832 Metronidazole 500 MG Q8H 07/20 0200 AC 07/25 N/A 1 UNIT IV 07/29 1999 100 Morphine Sulfate 4 MG .STK-MED ONE 07/25 0313 DC IM 07/25 0314 Morphine Sulfate 2 MG Q4P PRN 07/23 1415 AC 07/25 IV 0314 Pantoprazole Sodium 40 MG BID 07/18 1351 AC 07/25 IV 0832 Prednisone 10 MG DAILY 08/01 899 AC PO 08/03 0859 Prednisone 20 MG DAILY 07/30 899 AC PO 08/01 0859 Prednisone 30 MG DAILY 07/28 899 AC PO 07/30 0859 Prednisone 40 MG DAILY 07/26 899 DC PO Prednisone 40 MG DAILY 07/26 899 CAN PO 08/03 0859 Prednisone 40 MG DAILY 07/26 899 AC PO 07/28 0859 Sertraline HCl 25 MG QAM 07/19 0900 AC 07/25 PO 0831 Sodium Chloride 2 SPRAY Q4P PRN 07/24 1730 AC NAOMIE Results Last 48 Hrs of Labs/Mics: Laboratory Tests 07/25/17 0847: CBC w Diff NO MAN DIFF REQ, RBC 3.08 L, MCV 91.8, MCH 29.9, MCHC 32.5 L, RDW 17.3 H, MPV 7.8, Gran % 91.1 H, Lymphocytes % 5.3 L, Monocytes % 3.4, Eosinophils % 0, Basophils % 0.2, Absolute Granulocytes 11.3 H, Absolute Lymphocytes 0.7 L, Absolute Monocytes 0.4, Absolute Eosinophils 0, Absolute Basophils 0 07/25/17 0620: Anion Gap 8, Estimated GFR 22 L, Glucose 112 H, Calcium 8.4, Phosphorus 5.2 H , Magnesium 2.0, Total Bilirubin 0.3, AST 15, ALT 21, Albumin 2.2 L 07/24/17 0555: CBC w Diff MAN DIFF ORDERED, RBC 3.14 L, MCV 92.4, MCH 29.4, MCHC 31.8 L, RDW 16.9 H, MPV 7.7, Gran % 94.2 H, Lymphocytes % 3.4 L, Monocytes % 2.2, Eosinophils % 0, Basophils % 0.2, Absolute Granulocytes 13.8 H, Segmented Neutrophils 92 H, Band Neutrophils 4, Absolute Lymphocytes 0.5 L, Lymphocytes 3 L, Monocytes 1 L, Absolute Monocytes 0.3, Absolute Eosinophils 0, Absolute Basophils 0, Platelet Estimate ADEQUATE, Normocytic RBCs VERIFIED, Normochromic RBCs VERIFIED 07/24/17 0350: Anion Gap 11, Estimated GFR 21 L, Glucose 120 H, Calcium 8.6, Phosphorus 6.0 H, Magnesium 1.9, Total Bilirubin 0.3, AST 12 L, ALT 30, Albumin 2.4 L Recent Imaging Studies: CXR 07/25/2017: Low lung volumes with bilateral [id number] sized pleural effusions slightly larger on the right. Assessment/Plan Assessment/Plan [id number] w/ hx of anxiety/depression, RA on steroid Rx, DVT previously on Eliquis, obesity, TACO, HTN, LVH, AR, diastolic dysfunction w/ acute on diastolic heart failure (HFpEF), colonic perforation following colonoscopy s/p Constance procedure September 2014 complicated by type II [place], MARVEL, bacteremia, etc. & chronic anemia w/ recent hospitalization for symptomatic anemia that improved w/ transfusion of PRBCs complicated by MARVEL on CKD, etc. who improved w/ standard measures, but w/ subsequent cardiac cath at [facility] that revealed a 70% LAD stenosis that was stented to 0% residual stenosis & ELSY-3 flow who was again admitted (07/07-07/11/2017) w/ worsening ch weakness, SOB, new bilat LE edema c/w HFpEF & a modest troponin I elevation from suspected type II [place] who improved w/ standard therapy, but who returned w/ evidence of GI bleeding on dual antiplatelet Rx for her recent coronary stent. She has a colostomy and the plan is for endoscopy when she is clinically stable by GI. Recommendations: * Continue IV furosemide 40 mg daily for negative fluid balance and reassess the need for further IV diuresis in the a.m. * Telemetry transfer from cardiac standpoint. * Continue DVT prophylaxis. Continue telemetry? Not applicable (In ICU.)
--- NOTE | 2017-07-25 17:28 | Transfer of Care Summary ---
Hospital Course Course Hospital Course: 76-year-old female with a history of anxiety/depression, rheumatoid arthritis on chronic steroid therapy, previous deep venous thrombosis on chronic anticoagulation with Xarelto (Currently on hold), obesity, obstructive sleep apnea on CPAP, chronic anemia, hypertension, left ventricular hypertrophy with diastolic dysfunction, and aortic regurgiatation who presented to the ED on 07/18/2017 with complaints of jane blood in her colostomy bag FOR 1 d [employer]. She was recently discharged on 07/11/17, after been treated for acute on chronic diastolic CHF, was on xeralto that was stopped due to anemia with dropping H&H and positive Guaiac during her last admission after discussion of risks and benefits with the patient. She was also hospitalized at (06/23-07/02/2017) with symptomatic anemia and modest troponin I elevation, requiring transfusion 2 with no obvious etiology for the bleeding documented and with the plan for an outpatient pill cam. She additionally had evidence of acute on chronic kidney injury, and was seen in consultation by nephrology and gradually improved from that standpoint. Finally , given concerns about underlying coronary artery disease, she was transferred to [facility] where she underwent cardiac catheterization on 07/02/2017 that revealed: LM- patent, LAD- long vessel wrapping around the apex with a ~70% proximal stenosis, LCx- 60% ostial M1, and RCA- dominant and patent, & LV gram- not done. She was admitted to telemetry floor, received 2 units blood transfusion and 2 units FFP as her INR was found to be elevated to 2.36, in the setting with active GI bleeding through the colostomy bag, patient was seen by GI who recommended colonoscopy through ostomy. Cardiology is agreeable to continue dual antiplatelet therapy given recent stent, and keep a close eye on H/H and to transfuse to keep Hgb >8.0. On 07/19 she was transferred to ICU for acute hypoxic and hypercarbic respiratory failure like secondary to fluid overload and was started on BiPAP. While in the ICU following issues were addressed; # Acute hypoxic and hypercarbic respiratory failure likely from fluid overload,? ? CHF exacerbation # Acute blood loss anemia likely secondary to GI bleeding - resolved # History of colonic perforation status post colostomy # History of hypertension # Type II [place] # Bonita on CKD Acute hypoxic and hypercarbic respiratory failure likely from fluid overload,?? CHF exacerbation; Patient was transferred from telemetry floor because of acute hypoxic and hypercarbic respiratory failure. Initial ABGs showed a pH of 7.08 and PCO2 of 81 , repeat ABG on BiPAP showed improved pH of 7.34 and PCO2 of 41. Chest x-ray at that time showed signs of fluid overload, but patient did not seem to have active exacerbation of her diastolic HF at that time. Patient was weaned off Bipap on 07/23/17, switched to high flow. Currently on 4L of oxygen by Nasal Canula. Repeat daily chest x-rays has been showing signs of fluid overload(?? CHF exacerbation) and she has been receiving IV Lasix as needed. Was also started on empiric Solu-Medrol to help with any inflammation, currently on prednisone taper. * IV lasix 40mg once today, reasses in am. * Continue Prednisone 40mg daily with a quick taper. * F/U Cardio recommendations. * TRC/NEBs as needed Type II [place]; Patient has baseline elevated troponin levels ranging from 0.40-0.50 likely due to CKD, but started trending up with a peak at 1.10. No new EKG changes or chest pain reported. Repeat limited Echo was obtained to assess cardiac function and look for wall motion abnormality, given the uptrending trops; showed normal ejection fraction with no regional wall motion abnormalities and stage 3 diastolic dysfunction (similar to previous echo on June). * Continue dual antiplatelet therapy(given recent cardiac catheterization and stent placement) 1. Acute blood loss anemia likely secondary to GI bleeding; She presented with jane blood in her colostomy bag since one day before her admission. She received 2 units of blood transfusion with improvement in her H&H to 10.9/33.2 and was scheduled for a colonoscopy on 07/19 but was deferred because of her acute worsening of the respiratory status requiring BiPAP. Her H&H continues to drop down slighly every day. She was prepared for colonoscopy again on 07/21 but was canceled again due to similar reasons. Reattempt colonoscopy once the patient's respiratory status is more stable. There was also high suspicion for ischemic colitis given the abdominal pain and bleeding starting after the cardiac catheterization; surgical consult was obtained for that reason but suggested that the GI bleeding is likely in the setting of dual antiplatelet therapy that the patient was started on after the cardiac catheterization. CTA abdomen was considered but could not be obtained as patient has a very high risk for ATN per nephro given patient's stage IV CKD and presented with a BONITA on CKD with a creatinine of 1.7. * Xarelto on hold * Continue aspirin and Plavix given recent cardiac stent placement * H&H daily and transfuse for Hb<8 * Colonoscopy through ostomy once patient is stable. * Continue empiric Abx for 7-10 days. Day 7. * F/U GI recommendations * F/U general surgery recommendations BONITA on CKD; Patient has stage IV kidney disease and presented with a creatinine of 1.7. Nephrology consult obtained. Recommends continuing lasix despite Cr. bumping up to 2.2(states its hard to determine her baseline Cr. and slight bump in Cr is okay with IV lasix). Also Urine culture growing Klebsiella, sensitive to ciprofloxacin, but patient is afebrile with no elevated white cell count. Likely asymptomatic bacteriuria but in any case Patient is already on ciprofloxacin for empiric GI coverage. * Repeat creatinine level in a.m. Right Ant Santana Lesion; Watch right snatana for any infection(per the patient she noticed it after the cardiac catheterization). Afebrile with elevated WBC count likely secondary to steroid use, trending down. Migraine headaches; patient takes Fioricet at home for migraine headaches. She had been getting Fioricet in the hospital without much relief. Also had no relief with Dilaudid. Patient was started on IV morphine 2 mg every 6 as needed, currently on morphine Q4 with resolution of her headache and abdominal pain. - Continue IV morphine 2 mg every 4 when necessary. Diet: Regular DVT/Prophylaxis: Mechanical(left leg only, no ALPS on right side bcoz of right santana lesion), [facility] Code Status: Do Not Resucitate/Intubat Assessment/Plan: See above - Continue IV morphine 2 mg every 4 when necessary. Diet: Full liquid diet DVT/Prophylaxis: mechanical(left leg only, no ALPS on right side bcoz of right santana lesion), [facility] Code Status: Do Not Resucitate/Intubat
[2017-07-25 23:00] VITALS: BP 154/82
[2017-07-26 06:31] LABS: ABSOLUTE BASOPHIL COUNT 0 /CUMM (0.0-0.2); ABSOLUTE EOSINOPHIL COUNT 0 /CUMM (0.0-0.7); ABSOLUTE GRANULOCYTE CT 9.6 /CUMM (1.4-6.5); ABSOLUTE LYMPH COUNT 0.8 /CUMM (1.2-3.4); ABSOLUTE MONOCYTE COUNT 1.1 /CUMM (0.10-0.60); BASOPHIL % 0.1 % (0.0-2.0); EOSINOPHIL % 0.1 % (0-5); GRANULOCYTE % 83.6 % (42.2-75.2); HEMATOCRIT 29.6 % (37-47); MEAN CORPUSCULAR HGB 29.8 PG (27.0-31.0); MEAN CORPUSCULAR HGB CONC 32.7 G/DL (33.0-37.0); MEAN CORPUSCULAR VOLUME 91.2 FL (81.0-99.0); MEAN PLATELET VOLUME 7.3 FL (7.4-10.4); PLATELET COUNT 240 /CUMM (130-400); RBC DISTRIBUTION WIDTH 17.4 % (11.5-14.5); RED BLOOD CELL CT 3.25 /CUMM (4.20-5.40); WHITE BLOOD CELL COUNT 11.5 /CUMM (4.8-10.8)
--- NOTE | 2017-07-26 07:04 | PN- Resident CRCU ---
Objective Vital Signs & I&O Last 8 Hrs of Vitals and I&O: Intake & Output 05/05 0800 Intake Total 60 Output Total Balance 60 Intake, Oral 60 Exam General Appearance: awake Impression/Plan Plan DVT/Prophylaxis: mechanical, pharmacological Code Status: Do Not Resucitate/Intubat
[2017-07-26 08:00] VITALS: BP 150/80
--- NOTE | 2017-07-26 08:15 | PN- Resident CRCU ---
Angel Colvin 07/26/17 0815: Subjective HPI/CRCU Issues: # Acute blood loss anemia likely secondary to GI bleeding - resolved # Acute hypoxic and hypercarbic respiratory failure likely from fluid overload,? ? CHF exacerbation # History of colonic perforation status post colostomy # History of hypertension # Type II [place] # Bonita on CKD 24 Hour Events: Patient was seen and examined this morning She is alert awake and oriented to time place and person No acute events noticed overnight Patient reports feeling much better today. Shortness of breath improved with morphine. Reports minimal abdomen pain, denies any nausea, vomiting, hematemesis, hematochezia, melena Denies any chest pain, palpitations, fever, chills, cough. Vitals afebrile, heart rate 70, respiratory rate 18, blood pressure 150/80, saturating at 97 on 4 L Hemoglobin remained stable 9.7 and 21 Creatinine 1.8 Objective Vital Signs & I&O Last 8 Hrs of Vitals and I&O: Vital Signs Date Time Temp Pulse Resp B/P B/P Pulse O2 O2 Flow FiO2 Mean Ox Delivery Rate 07/26 0928 65 150/80 05/ 0000 97 Nasal 4.0L Cannula 07/25 2300 97.6 71 18 154/82 96 Nasal 4.0L Cannula 07/25 2106 97.8 71 18 154/82 / 1600 96 Nasal 4.0L Cannula 07/25 1509 98.5 72 22 150/76 97 Nasal 4.0L Cannula Intake & Output 07/26 1600 07/26 0800 07/26 0000 Intake Total 60 590 Output Total 450 Balance 60 140 Intake, IV 230 Intake, Oral 60 360 Output, Stool 25 Output, Urine 425 Exam General Appearance: well developed/nourished, no apparent distress, alert, awake Other Physical Findings: Head: atraumatic, normal appearance Respiratory: chest non-tender, decreased breath sounds (bilateral lung bases) Cardiovascular: regular rate/rhythm Gastrointestinal: normal bowel sounds, soft, non-tender Extremities: +1 pitting edema, Right anterior santana lesion improving Cranial Nerves: normal hearing, normal speech, PERRL Current Medications: Current Medications Sig/Rick Start time Last Medication Dose Route Stop Time Status Admin Acetaminophen 650 MG .STK-MED ONE 07/25 2256 DC PO 07/25 2257 Acetaminophen 650 MG .STK-MED ONE 05/04 1353 DC PO 07/25 1354 Acetaminophen 650 MG Q6P PRN 07/19 1415 AC 07/26 PO 1020 Acetaminophen/ 1 TAB BID PRN 07/22 0930 AC 07/23 Butalbital/Caffeine PO 0751 Albuterol Sulfate 3 ML Q4P PRN 07/19 1245 AC 07/24 INH 0918 Aspirin 81 MG DAILY 07/19 1319 AC 07/26 PO 0929 Carvedilol 6.25 MG BID 07/21 2100 AC 07/26 PO 0928 Ciprofloxacin 500 MG DAILY 07/25 1900 AC 07/25 PO 07/29 1999 210 Ciprofloxacin 400 MG DAILY@1800 07/19 1800 DC 07/24 Dextrose/Water 200 ML IV 07/29 1999 175 Clopidogrel Bisulfate 75 MG DAILY 07/19 1320 AC 07/26 PO 09 Ferrous Gluconate 324 MG TID 07/23 0900 AC 07/26 PO 0927 Furosemide 40 MG DAILY 07/26 0943 AC 07/26 PO 1020 Furosemide 40 MG DAILY 07/26 926 DC 07/26 IV 0931 Gabapentin 100 MG Q8 07/18 2200 AC 07/26 PO 0633 Heparin Sodium 5,000 UNIT Q8 07/25 09 AC 07/26 (Porcine) SC 0635 Levothyroxine Sodium 0.025 MG DAILY AC 07/19 0700 AC 07/26 PO 0633 Metronidazole 500 MG Q8 07/25 2200 AC 07/26 PO 07/29 1999 0633 Metronidazole 500 MG Q8H 07/20 0200 DC 07/25 N/A 1 UNIT IV 07/29 1999 1006 Morphine Sulfate 2 MG Q4P PRN 07/26 1045 SC Morphine Sulfate 2 MG Q4P PRN 07/23 1415 DC 07/25 IV 0314 Omeprazole 40 MG BID 07/25 2100 AC 07/26 PO 0927 Pantoprazole Sodium 40 MG BID 07/18 1351 DC 07/25 IV 0832 Prednisone 10 MG DAILY 08/01 899 AC PO 08/03 858 Prednisone 20 MG DAILY 07/30 899 AC PO 08/01 858 Prednisone 30 MG DAILY 07/28 899 AC PO 07/30 858 Prednisone 40 MG DAILY 07/26 899 DC PO Prednisone 40 MG DAILY 07/26 899 CAN PO 08/03 858 Prednisone 40 MG DAILY 07/26 899 AC 07/26 PO 07/28 858 09 Sertraline HCl 25 MG QAM 07/19 0900 AC 07/26 PO 0925 Sodium Chloride 2 SPRAY Q4P PRN 07/24 1730 AC 07/26 NAOMIE 0931 Impression/Plan Impression/Problem List Impression: 76-year-old female with a history of anxiety/depression, rheumatoid arthritis on chronic steroid therapy, previous deep venous thrombosis on chronic anticoagulation with Xarelto (Currently on hold), obesity, obstructive sleep apnea on CPAP, chronic anemia, hypertension, left ventricular hypertrophy with diastolic dysfunction, and aortic regurgiatation who presented to the ED on 07/18/2017 with complaints of jane blood in her colostomy bag FOR 1 d [employer]. She was recently discharged on 07/11/17, after been treated for acute on chronic diastolic CHF, was on xeralto that was stopped due to anemia with dropping H&H and positive Guaiac during her last admission after discussion of risks and benefits with the patient. She was also hospitalized at (06/23-07/02/2017) with symptomatic anemia and modest troponin I elevation, requiring transfusion 2 with no obvious etiology for the bleeding documented and with the plan for an outpatient pill cam. She additionally had evidence of acute on chronic kidney injury, and was seen in consultation by nephrology and gradually improved from that standpoint. Finally , given concerns about underlying coronary artery disease, she was transferred to [facility] where she underwent cardiac catheterization on 07/02/2017 that revealed: LM- patent, LAD- long vessel wrapping around the apex with a ~70% proximal stenosis, LCx- 60% ostial M1, and RCA- dominant and patent, & LV gram- not done. She was admitted to telemetry floor, received 2 units blood transfusion and 2 units FFP as her INR was found to be elevated to 2.36, in the setting with active GI bleeding through the colostomy bag, patient was seen by GI who recommended colonoscopy through ostomy. Cardiology is agreeable to continue dual antiplatelet therapy given recent stent, and keep a close eye on H/H and to transfuse to keep Hgb >8.0. On 07/19 she was transferred to ICU for acute hypoxic and hypercarbic respiratory failure like secondary to fluid overload and was started on BiPAP. - Plan Respiratory: Acute Hypoxic and hypercarbic respiratory failure Patient was transferred from telemetry floor because of acute hypoxic and hypercarbic respiratory failure. Initial ABGs showed a pH of 7.08 and PCO2 of 81 , repeat ABG on BiPAP showed improved pH of 7.34 and PCO2 of 41. Chest x-ray at that time showed signs of fluid overload, but patient did not seem to have active exacerbation of her diastolic HF at that time. Patient was weaned off Bipap on 07/23/17 and high flow on 07/25. * Continue oxygen supplementation via nasal cannula * No plan for intubation per patient request * TRC/NEBs as needed * po lasix 40 daily/prn * D/C solumedrol and started the patient on Prednisone 40mg daily with a quick taper. * F/U Cardio recommendations. Infectious Diseases: * Keep the head of the bed elevated for aspiration precaution * On empiric IV abx per GI * Monitor for any fever * Watch right santana for any infection(per the patient she noticed it after the cardiac catheterization). Afebrile with elevated WBC count likely secondary to steroid use, trending down. Cardiovascular: 1. Type II [place]; patient has baseline elevated troponin levels ranging from 0.40- 0.50 likely due to CKD, but started trending up with a peak at 1.10. No new EKG changes or chest pain. * Repeated limited Echo to assess cardiac function and look for wall motion abnormality, given the uptrending trops; showed normal ejection fraction with no regional wall motion abnormalities and stage 3 diastolic dysfunction(similar to previous echo on June) * Monitor BP, HR * Appreciate nurse manager recommendation * Continue dual antiplatelet therapy(given recent cardiac catheterization and stent placement) * Continue to hold lisinopril * Continue 40 mg lasix po Hematology: 1. Acute blood loss anemia likely secondary to GI bleeding , ?? Ischemic colitis; she presented with jane blood in her colostomy bag for one day before her admission. She received 2 units of blood transfusion with improvement in her H&H to 10.9/33.2 and was scheduled for a colonoscopy on 07/19 but was not done because of her acute worsening of the respiratory status requiring BiPAP. Her H&H continues to drop down slighly every day. She was prepared for colonoscopy again on 07/21 but was canceled again due to similar reasons. Will reattempt colonoscopy once the patient's respiratory status is more stable. There was also high suspicion for ischemic colitis given the abdominal pain and bleeding starting after the cardiac catheterization; surgical consult was obtained for that reason but suggested that the GI bleeding is likely in the setting of dual antiplatelet therapy that the patient was started on after the cardiac catheterization. CTA abdomen was considered but could not be obtained as patient has a very high risk for ATN per nephro given patient's stage IV CKD and presented with a BONITA on CKD with a creatinine of 1.7. * Xarelto on hold * Continue aspirin and Plavix given recent cardiac stent placement * H&H daily and transfuse for Hb<8 * Colonoscopy through ostomy once patient is stable. * Continue empiric Abx for 7-10 days. Day 8. * Appreciate GI recommendations * Appreciate general surgery recommendations Metabolic: 1. BONITA on CKD; patient has stage IV kidney disease and presented with a creatinine of 1.7. Nephrology consult obtained. * Can continue Lasix as per nephro. * Repeat creatinine level in 2.3- 2.2- 2.2-1.8. * Urine culture growing Klebsiella, sensitive to ciprofloxacin, but patient is afebrile with no elevated white cell count. Likely asymptomatic bacteriuria but in any case Patient is already on ciprofloxacin for empiric GI coverage. 2. Electrolyte abnormalities; * Continue to monitor and replete accordingly. Alimentary: * Regular diet. Neurological: 1. Migraine headaches; patient takes Fioricet at home for migraine headaches. She had been getting Fioricet in the hospital without much relief. Also had no relief with Dilaudid. Patient was started on IV morphine 2 mg every 6 as needed, currently on morphine Q4 with resolution of her headache and abdominal pain. - Continue sc morphine 2 mg every 4 when necessary. Diet: Reg diet DVT/Prophylaxis: mechanical(left leg only, no ALPS on right side bcoz of right santana lesion), SQH Code Status: Do Not Resucitate/Intubate Problem List: 1. Acute respiratory failure 2. GI bleed Pain Ratin Tomorrow's Labs & Rationales: cbc icu bundle Plan DVT/Prophylaxis: mechanical, pharmacological Code Status: Do Not Resucitate/Intubat Lucien Zuniga MD 07/26/17 0944: Attending MD Review Statement Attending Sign Off Attending Cosign Statement: I have: examined this patient, reviewed aval EMR data, personally reviewd images, discussd w/resident/PA/BOAT CANVAS INSTALLER, discussed mgmt plan w/amie, discussed mgmt plan w/CM, discussed mgmt plan w/pt, agreed w/resident/PA/BOAT CANVAS INSTALLER, amended to note. Other Findings: Impression 76 year old woman * Improving - respiratory failure improving, likely secondary to fluid overload/ blood transfusions * resolved - acute blood loss anemia/gi bleeding Plan Respiratory -continue to have trials off bipap, tolerates high flow, fio2 goal to support spo2 >92% -prednisone taper as ordered, reduce by 10mg every 2 days, then stop ID -monitor -aspiration precautions -on cipro and flagyl (10 days total) -leukocytosis likely steroid related - improving with taper CVS/Heme -f/u cardiology -per cardio and GI - pt remains on asa, plavix, will monitor for any significant further bleeding Metabolic -ins/outs, electrolyte monitoring -creatinine worsened but stable, f/u nephrology recommendations Alimentary -tolerating diet Neuro -morphine for pain and dyspnea DVT prophylaxis at all times DNR/DNI Telemetry hold
--- NOTE | 2017-07-26 11:13 | PN- Cardiology ---
Subjective Subjective: No acute events. Improved SOB. Hb remains stable and kidney function improving. Objective Vital Signs and I&Os Vital Signs Date Time Temp Pulse Resp B/P B/P Pulse O2 O2 Flow FiO2 Mean Ox Delivery Rate 07/26 09 65 150/80 07/26 0000 97 Nasal 4.0L Cannula 07/25 2300 97.6 71 18 154/82 96 Nasal 4.0L Cannula 07/25 2106 97.8 71 18 154/82 07/25 1600 96 Nasal 4.0L Cannula 07/25 1509 98.5 72 22 150/76 97 Nasal 4.0L Cannula Intake & Output 07/26 0800 07/26 0000 07/25 1600 07/25 0800 07/25 0000 Intake Total 60 590 890 200 660 Output Total 450 850 310 Balance 60 140 40 200 350 Intake, IV 230 170 330 Intake, Oral 60 360 720 200 330 Output, Stool 25 0 0 Output, Urine 425 850 310 Physical Exam: no acute distress, alert, obese Neck: No JVD, trachea midline Lungs: Decreased breath sounds bilaterally, no wheezing, some crackles at bases. Heart: S1, S2 , 1/6 systolic murmur LLSB Abdomen: Soft, nontender, positive bowel sounds. Extremities: No edema, good capillary refill. Current Medications: Current Medications Sig/Rick Start time Last Medication Dose Route Stop Time Status Admin Acetaminophen 650 MG .STK-MED ONE 07/25 2256 DC PO 07/25 2257 Acetaminophen 650 MG .STK-MED ONE 07/25 1353 DC PO 07/25 1354 Acetaminophen 650 MG Q6P PRN 07/19 1415 AC 07/26 PO 1020 Acetaminophen/ 1 TAB BID PRN 07/22 0930 AC 07/23 Butalbital/Caffeine PO 0751 Albuterol Sulfate 3 ML Q4P PRN 07/19 1245 AC 07/24 INH 0918 Aspirin 81 MG DAILY 07/19 1319 AC 07/26 PO 0929 Carvedilol 6.25 MG BID 07/21 2100 AC 07/26 PO 0928 Ciprofloxacin 500 MG DAILY 07/25 1900 AC 07/25 PO 07/29 1999 2104 Ciprofloxacin 400 MG DAILY@1800 07/19 1800 DC 07/24 Dextrose/Water 200 ML IV 07/29 1999 1750 Clopidogrel Bisulfate 75 MG DAILY 07/19 1320 AC 07/26 PO 0925 Ferrous Gluconate 324 MG TID 07/23 0900 AC 07/26 PO 0927 Furosemide 40 MG DAILY 07/26 0943 AC 07/26 PO 1020 Furosemide 40 MG DAILY 07/26 926 DC 07/26 IV 0931 Gabapentin 100 MG Q8 07/18 220 AC 07/26 PO 0633 Heparin Sodium 5,000 UNIT Q8 07/25 0919 AC 07/26 (Porcine) SC 0635 Levothyroxine Sodium 0.025 MG DAILY AC 07/19 0700 AC 07/26 PO 06 Metronidazole 500 MG Q8 07/25 2199 AC 07/26 PO 07/28 Metronidazole 500 MG Q8H 07/20 0200 DC 07/25 N/A 1 UNIT IV 07/29 1999 100 Morphine Sulfate 2 MG Q4P PRN 07/26 104 SC Morphine Sulfate 2 MG Q4P PRN 07/23 1415 DC 07/25 IV 0314 Omeprazole 40 MG BID 07/25 2100 AC 07/26 PO 09 Pantoprazole Sodium 40 MG BID 07/18 1351 DC 07/25 IV 0832 Prednisone 10 MG DAILY 08/01 09 AC PO 08/03 0859 Prednisone 20 MG DAILY 07/30 899 AC PO 08/01 0859 Prednisone 30 MG DAILY 07/28 899 AC PO 07/30 0859 Prednisone 40 MG DAILY 07/26 899 DC PO Prednisone 40 MG DAILY 07/26 09 CAN PO 08/03 0859 Prednisone 40 MG DAILY 07/26 0900 AC 07/26 PO 07/28 0859 0925 Sertraline HCl 25 MG QAM 07/19 0900 AC 07/26 PO 0925 Sodium Chloride 2 SPRAY Q4P PRN 07/24 1730 AC 07/26 NAOMIE 0931 Results Last 48 Hrs of Labs/Mics: Laboratory Tests 07/26/17 0611: Anion Gap 7, Estimated GFR 27 L, Glucose 88, Calcium 8.6, Phosphorus 4.3, Magnesium 2.0, Total Bilirubin 0.3, AST 13 L, ALT 25, Albumin 2.1 L, CBC w Diff MAN DIFF ORDERED, RBC 3.25 L, MCV 91.2, MCH 29.8, MCHC 32.7 L, RDW 17.4 H, MPV 7.3 L, Gran % 83.6 H, Lymphocytes % 7.1 L, Monocytes % 9.1, Eosinophils % 0.1, Basophils % 0.1, Absolute Granulocytes 9.6 H, Absolute Lymphocytes 0.8 L, Absolute Monocytes 1.1 H, Absolute Eosinophils 0, Absolute Basophils 0, Platelet Estimate ADEQUATE, Poikilocytosis 1+ 07/25/17 0847: CBC w Diff NO MAN DIFF REQ, RBC 3.08 L, MCV 91.8, MCH 29.9, MCHC 32.5 L, RDW 17.3 H, MPV 7.8, Gran % 91.1 H, Lymphocytes % 5.3 L, Monocytes % 3.4, Eosinophils % 0, Basophils % 0.2, Absolute Granulocytes 11.3 H, Absolute Lymphocytes 0.7 L, Absolute Monocytes 0.4, Absolute Eosinophils 0, Absolute Basophils 0 07/25/17 0620: Anion Gap 8, Estimated GFR 22 L, Glucose 112 H, Calcium 8.4, Phosphorus 5.2 H , Magnesium 2.0, Total Bilirubin 0.3, AST 15, ALT 21, Albumin 2.2 L Assessment/Plan Assessment/Plan [id number] w/ hx of anxiety/depression, RA on steroid Rx, DVT previously on Eliquis, obesity, TACO, HTN, LVH, AR, diastolic dysfunction w/ acute on diastolic heart failure (HFpEF), colonic perforation following colonoscopy s/p Constance procedure September 2014 complicated by type II [place], MARVEL, bacteremia, etc. & chronic anemia w/ recent hospitalization for symptomatic anemia that improved w/ transfusion of PRBCs complicated by MARVEL on CKD, etc. who improved w/ standard measures, but w/ subsequent cardiac cath at [facility] that revealed a 70% LAD stenosis that was stented to 0% residual stenosis & ELSY-3 flow who was again admitted (07/07-07/11/2017) w/ worsening weakness, SOB, new bilat LE edema c/w HFpEF & a modest troponin I elevation from suspected type II [place] who improved w/ standard therapy, but who returned w/ evidence of GI bleeding on dual antiplatelet Rx for her recent coronary stent. She has a colostomy and the plan is for endoscopy when she is clinically stable by GI. Recommendations: * decrease furosemide to 40 mg PO AM beginning tomorrow. * Telemetry transfer from cardiac standpoint. Continue telemetry? Yes
[2017-07-26 16:00] VITALS: BP 128/66
[2017-07-26 23:00] VITALS: BP 160/66
[2017-07-27 06:09] LABS: ABSOLUTE BASOPHIL COUNT 0 /CUMM (0.0-0.2); ABSOLUTE EOSINOPHIL COUNT 0.1 /CUMM (0.0-0.7); ABSOLUTE GRANULOCYTE CT 7.5 /CUMM (1.4-6.5); ABSOLUTE LYMPH COUNT 0.9 /CUMM (1.2-3.4); ABSOLUTE MONOCYTE COUNT 0.7 /CUMM (0.10-0.60); BASOPHIL % 0 % (0.0-2.0); EOSINOPHIL % 0.6 % (0-5); GRANULOCYTE % 82.1 % (42.2-75.2); HEMATOCRIT 28.8 % (37-47); MEAN CORPUSCULAR HGB 29.5 PG (27.0-31.0); MEAN CORPUSCULAR HGB CONC 32.2 G/DL (33.0-37.0); MEAN CORPUSCULAR VOLUME 91.7 FL (81.0-99.0); MEAN PLATELET VOLUME 7.6 FL (7.4-10.4); PLATELET COUNT 254 /CUMM (130-400); RBC DISTRIBUTION WIDTH 17.1 % (11.5-14.5); RED BLOOD CELL CT 3.14 /CUMM (4.20-5.40); WHITE BLOOD CELL COUNT 9.1 /CUMM (4.8-10.8)
[2017-07-27 08:00] VITALS: BP 142/60
--- NOTE | 2017-07-27 08:10 | PN- Resident CRCU ---
See Addendum Morgan CURTIS,Ba 07/27/17 0808: Subjective HPI/CRCU Issues: #Acute hypoxic hypercarbic respiratory failure, secondary to fluid overload; #Colitis, on IV abx D8 #Lower GI bleeding, stable H/H #Acute renal failure on CKD, improving #Type 2 [place], no ACS, stable 24 Hour Events: I followed up and examined the patient today. She is resting comfortably in bed , on nasal cannula, not in distress, does not offer any complaints. VSS. No nursing issues reported to me. Objective Vital Signs & I&O Last 8 Hrs of Vitals and I&O: Vital Signs Date Time Temp Pulse Resp B/P B/P Pulse O2 O2 Flow FiO2 Mean Ox Delivery Rate 07/27 0000 98 Nasal 4.0L Cannula 07/26 2300 97.7 66 11 160/66 98 Nasal 4.0L Cannula 07/26 2108 97.7 65 11 160/66 07/26 1600 98 Nasal 4.0L Cannula 07/26 1600 97.8 65 16 128/66 98 Nasal 4.0L Cannula 07/26 1100 96 Nasal 4.0L Cannula 07/26 0928 65 150/80 Exam General Appearance: no apparent distress, alert, awake, comfortable, obese Other Physical Findings: Head: atraumatic, normal appearance Respiratory: chest non-tender, decreased breath sounds (bilateral lung bases) Cardiovascular: regular rate/rhythm Gastrointestinal: normal bowel sounds, soft, non-tender Extremities: +1 pitting edema b/l, Right anterior santana lesion improving like yesterday Cranial Nerves: normal hearing, normal speech, PERRL, grossly intact Nutrition Nutrition: P.O. diet Current Medications: Current Medications Sig/Rick Start time Last Medication Dose Route Stop Time Status Admin Acetaminophen 650 MG .STK-MED ONE 07/26 1009 DC PO 07/26 1010 Acetaminophen 650 MG Q6P PRN 07/19 1415 AC 07/26 PO 1020 Acetaminophen/ 1 TAB BID PRN 07/22 0930 AC 07/23 Butalbital/Caffeine PO 0751 Albuterol Sulfate 3 ML Q4P PRN 07/19 1245 AC 07/24 INH 0918 Aspirin 81 MG DAILY 07/19 1319 AC 07/26 PO 0929 Carvedilol 6.25 MG BID 07/21 2099 AC 07/26 PO 2108 Ciprofloxacin 500 MG DAILY@2100 07/26 2100 AC 07/26 PO 07/30 2058 210 Ciprofloxacin 500 MG DAILY 07/25 1900 DC 07/25 PO 07/28 Clopidogrel Bisulfate 75 MG DAILY 07/19 1320 AC 07/26 PO 0925 Ferrous Gluconate 324 MG TID 07/23 0900 AC 07/26 PO 2108 Furosemide 40 MG .STK-MED ONE 07/26 1010 DC PO 07/26 1011 Furosemide 40 MG DAILY 07/26 0943 AC 07/26 PO 1020 Furosemide 40 MG DAILY 07/26 0927 DC 07/26 IV 0931 Gabapentin 100 MG Q8 07/18 2200 AC 07/27 PO 0639 Heparin Sodium 5,000 UNIT Q8 07/25 0919 AC 07/27 (Porcine) SC 0641 Levothyroxine Sodium 0.025 MG DAILY AC 07/19 0700 AC 07/27 PO 0639 Metronidazole 500 MG Q8 07/25 2200 AC 07/27 PO 07/29 1999 0639 Morphine Sulfate 2 MG Q4P PRN 07/26 1045 AC SC Morphine Sulfate 2 MG Q4P PRN 07/23 1415 DC 07/25 IV 0314 Omeprazole 40 MG BID 07/25 2100 AC 07/26 PO 2107 Prednisone 10 MG DAILY 08/01 09 AC PO 08/03 0859 Prednisone 20 MG DAILY 07/30 09 AC PO 08/01 0859 Prednisone 30 MG DAILY 07/28 0900 AC PO 07/30 0859 Prednisone 40 MG DAILY 07/26 0900 AC 07/26 PO 07/28 0859 0925 Sertraline HCl 25 MG QAM 07/19 0900 AC 07/26 PO 0925 Sodium Chloride 2 SPRAY Q4P PRN 07/24 1730 AC 07/26 NAOMIE 0931 Impression/Plan Impression/Problem List Impression: 76-year-old female with a history of anxiety/depression, rheumatoid arthritis on chronic steroid therapy, previous deep venous thrombosis on chronic anticoagulation with Xarelto (Currently on hold), obesity, obstructive sleep apnea on CPAP, chronic anemia, hypertension, left ventricular hypertrophy with diastolic dysfunction, and aortic regurgiatation who presented to the ED on 07/18/2017 with complaints of jane blood in her colostomy bag 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 She had a complicated course in this stay with resp failure, renal failure, colitis, anemia, requiring transfusions as mentioned below. Patient is currently in the ICU for the management of following issues: Respiratory: Acute hypoxic hypercarbic respiratory failure, 2/2 fluid overload, improving * Will continue TRC/nebs, O2 via NC * PO Prednisone now * PO lasix daily PRN Infectious Diseases: Colitis, on IV abx Cipro/Flagyl D8 today * Keep the head of the bed elevated for aspiration precaution * On IV abx per GI for 10 days total, today is D8 on Cipro/Flagyl * Monitor for any fever * Watch Rt santana for any signs of infection Cardiovascular: Type 2 [place], 2/2 CHF exacerbation, no ACS, no fluid overload now * Appreciate microsystems engineer recommendation * Continue dual antiplatelet therapy * Continue to hold lisinopril * Continue PO Lasix as needed Hematology: GI bleeding (ABLA, requiring blood transfusion), Stable H/H now * No anticoagulation (Xarelto on hold) * Daily H&H and transfuse for Hb<8 * Appreciate GI recs Metabolic: MARVEL on CKD, improving * Repeat ICU lab bundle at am for creatinine and electrolytes Alimentary: * Regular diet, no issues Neurological: * Headache * Continue pain meds * Of note, patient is chronically on pain meds (opiates) HOUSEKEEPING: Location: In ICU as a tele hold patient since 07/25/17 Diet: Hearty healthy diet DVT/Prophylaxis: mechanical IV access: Peripherals Cueto: NAE'ed on 07/25/17 Code Status: Do Not Resucitate/Do Not Intubate Problem List: 1. GI bleed 2. Acute respiratory failure 3. [id number] kidney injury 4. Elevated troponin Pain Ratin Pain Location: head, better today Pain Goal: Pain 4 or less Pain Plan: prn, as above Tomorrow's Labs & Rationales: CBC, ICU lab bundle Plan DVT/Prophylaxis: mechanical, pharmacological Code Status: Do Not Resucitate/Intubat Lucien Zuniga MD 07/27/17 0907: Attending MD Review Statement Attending Sign Off Attending Cosign Statement: I have: examined this patient, [facility], personally reviewd images, discussd w/resident/PA/MAINTAINER PLANT, discussed mgmt plan w/amie, discussed mgmt plan w/CM, discussed mgmt plan w/pt, agreed w/resident/PA/MAINTAINER PLANT, amended to note. Other Findings: Impression 76 year old woman * Improving - respiratory failure improving, likely secondary to fluid overload/ blood transfusions * resolved - acute blood loss anemia/gi bleeding Plan Respiratory -fio2 goal to support spo2 >92% -prednisone taper as ordered, reduce by 10mg every 2 days, then stop ID -monitor -aspiration precautions -on cipro and flagyl (10 days total) CVS/Heme -f/u cardiology -per cardio and GI - pt remains on asa, plavix, will monitor for any significant further bleeding Metabolic -ins/outs, electrolyte monitoring -creatinine improved, nephrology appreciated Alimentary -tolerating diet Neuro -morphine for pain and dyspnea DVT prophylaxis at all times DNR/DNI Telemetry hold Alimentary -tolerating diet Neuro -morphine for pain and dyspnea DVT prophylaxis at all times DNR/DNI Telemetry hold
[2017-07-27 16:00] VITALS: BP 128/70
--- NOTE | 2017-07-27 21:44 | PN- Cardiology ---
Subjective Subjective: Clinically stable, no complaints. Denies SOB. Objective Vital Signs and I&Os Vital Signs Date Time Temp Pulse Resp B/P B/P Pulse O2 O2 Flow FiO2 Mean Ox Delivery Rate 07/27 2053 67 17 140/64 07/27 1605 97 Nasal 3.0L Cannula 07/27 1600 97 Nasal 3.0L Cannula 07/27 1600 98.4 72 20 128/70 97 Nasal 3.0L Cannula 07/27 0859 70 142/60 07/27 0846 97 Nasal 4.0L Cannula 07/27 0800 97 Nasal 4.0L Cannula 07/27 08 98.4 66 20 142/60 97 Nasal 4.0L Cannula 07/27 0000 98 Nasal 4.0L Cannula 07/26 2300 97.7 66 11 160/66 98 Nasal 4.0L Cannula Intake & Output 07/27 1600 07/27 0800 07/27 0000 07/26 1600 07/26 0807/26 0000 Intake Total 480 120 120 600 60 590 Output Total 20 0 0 50 450 Balance 460 120 120 550 60 140 Intake, IV 230 Intake, Oral 480 120 120 600 60 360 Output, Stool 20 0 0 50 25 Output, Urine 425 Physical Exam: General Appearance: no apparent distress, alert, awake, comfortable Head: atraumatic, normal appearance Respiratory: chest non-tender, absence of crackles, absence of wheezing, good lung expansion Cardiovascular: regular rate/rhythm, no audible murmur Gastrointestinal: normal bowel sounds, soft, non-tender Extremities: trace edema at ankles, good capillary refill Current Medications: Current Medications Sig/Rick Start time Last Medication Dose Route Stop Time Status Admin Acetaminophen 650 MG Q6P PRN 07/19 1415 AC 07/27 PO 1410 Acetaminophen/ 1 TAB BID PRN 07/22 0930 AC 07/23 Butalbital/Caffeine PO 075 Albuterol Sulfate 3 ML Q4P PRN 07/19 1245 AC 07/27 INH 1603 Aspirin 81 MG DAILY 07/19 131 AC 07/27 PO 08 Carvedilol 6.25 MG BID 07/21 2099 AC 07/27 PO 2053 Ciprofloxacin 500 MG DAILY@07/26 AC 07/27 PO 07/30 Clopidogrel Bisulfate 75 MG DAILY 07/19 1320 AC 07/27 PO 0857 Ferrous Gluconate 324 MG TID 07/23 0900 AC 07/27 PO 2051 Furosemide 40 MG DAILY 07/26 0943 AC 07/27 PO 0859 Gabapentin 100 MG Q8 07/18 2199 AC 07/27 PO 2051 Heparin Sodium 5,000 UNIT Q8 07/25 918 AC 07/27 (Porcine) SC 2058 Levothyroxine Sodium 0.025 MG DAILY AC 07/19 0700 AC 07/27 PO 0639 Metronidazole 500 MG Q8 07/25 2199 AC 07/27 PO 07/28 Morphine Sulfate 2 MG Q4P PRN 07/26 1045 AC 07/27 SC 174 Omeprazole 40 MG BID 07/25 2100 AC 07/27 PO 2051 Prednisone 10 MG DAILY 08/01 899 AC PO 08/03 08 Prednisone 20 MG DAILY 07/30 899 AC PO 08/01 08 Prednisone 30 MG DAILY 07/28 09 AC PO 07/30 0859 Prednisone 40 MG DAILY 07/26 09 AC 07/27 PO 07/28 0859 0858 Sertraline HCl 25 MG QAM 07/19 09 AC 07/27 PO 0856 Sodium Chloride 2 SPRAY Q4P PRN 07/24 1730 AC 07/26 NAOMIE 0931 Results Last 48 Hrs of Labs/Mics: Laboratory Tests 07/27/17 0549: Anion Gap 4 L, Estimated GFR 27 L, Glucose 92, Calcium 8.7, Phosphorus 4.1, Magnesium 2.0, Total Bilirubin 0.2, AST 13 L, ALT 19, Albumin 1.9 L, CBC w Diff NO MAN DIFF REQ, RBC 3.14 L, MCV 91.7, MCH 29.5, MCHC 32.2 L, RDW 17.1 H , MPV 7.6, Gran % 82.1 H, Lymphocytes % 9.9 L, Monocytes % 7.4, Eosinophils % 0.6, Basophils % 0, Absolute Granulocytes 7.5 H, Absolute Lymphocytes 0.9 L, Absolute Monocytes 0.7 H, Absolute Eosinophils 0.1, Absolute Basophils 0 07/26/17 0611: Anion Gap 7, Estimated GFR 27 L, Glucose 88, Calcium 8.6, Phosphorus 4.3, Magnesium 2.0, Total Bilirubin 0.3, AST 13 L, ALT 25, Albumin 2.1 L, CBC w Diff MAN DIFF ORDERED, RBC 3.25 L, MCV 91.2, MCH 29.8, MCHC 32.7 L, RDW 17.4 H, MPV 7.3 L, Gran % 83.6 H, Lymphocytes % 7.1 L, Monocytes % 9.1, Eosinophils % 0.1, Basophils % 0.1, Absolute Granulocytes 9.6 H, Absolute Lymphocytes 0.8 L, Absolute Monocytes 1.1 H, Absolute Eosinophils 0, Absolute Basophils 0, Platelet Estimate ADEQUATE, Poikilocytosis 1+ Assessment/Plan Assessment/Plan Patient with CAD and aortic regurgitation + HFpEF, RA on chronic steroid therapy , history of DVT on eliquis, acute on chronic kidney disease, admitted for anemia/GI spoliation while anticoagulated with eliquis as was as double antiplatelet following PCI/stent in 06/2017. Hemodynamically stable, off xarelto and awaiting enteroscope this coming week. No change in furosemide for the moment. Continue telemetry? Not applicable
[2017-07-27 22:27] VITALS: BP 156/64
[2017-07-28 06:51] VITALS: BP 146/64
--- NOTE | 2017-07-28 07:57 | PN- Housestaff ---
Morgan CURTIS,Ba 07/28/17 0756: Subjective Follow-up For: #Acute hypoxic hypercarbic respiratory failure, secondary to fluid overload; #Colitis, on IV abx D9 #Lower GI bleeding, stable H/H #Acute renal failure on CKD, improving #Type 2 [place], no ACS, stable Complaints: no complaints Tele-Events Since Last Visit: sinus tachycardia, no tele events otherwise Subjective: I followed up and examined the patient today. She was transferred overnight to telemetry floor from the ICU. She is resting comfortably in bed, on nasal cannula, not in distress, does not offer any complaints. VSS. No nursing issues reported to me. Review of Systems Constitutional: Reports: no symptoms. Objective Last 24 Hrs of Vital Signs/I&O Vital Signs Date Time Temp Pulse Resp B/P B/P Pulse O2 O2 Flow FiO2 Mean Ox Delivery Rate 07/28 1502 98.2 67 22 140/70 98 Nasal 3.0L Cannula 07/28 1038 97 Nasal 2.0L Cannula 07/28 0825 68 154/70 07/28 0800 Nasal 3.0L Cannula 07/28 0651 97.9 62 16 146/64 98 Nasal Cannula 07/28 0000 Nasal 3.0L Cannula 07/27 2227 97.8 67 20 156/64 98 Nasal 3.0L Cannula / 2054 67 17 140/64 / 1605 97 Nasal 3.0L Cannula 07/27 1600 97 Nasal 3.0L Cannula / 1600 98.4 72 20 128/70 97 Nasal 3.0L Cannula Intake & Output 07/28 1600 07/28 0800 05 0000 Intake Total 600 180 120 Output Total 1 Balance 600 180 119 Intake, Oral 600 180 120 Output, Stool 1 Patient 75.495 kg Weight Weight Bed scale Measurement Method Physical Exam General Appearance: Alert, Oriented X3, Cooperative, No Acute Distress, obese Other Physical Findings: Head: atraumatic, normal appearance Respiratory: chest non-tender, decreased breath sounds (bilateral lung bases) Cardiovascular: regular rate/rhythm Gastrointestinal: normal bowel sounds, soft, non-tender, colostomy pouch in situ Extremities: +1 pitting edema b/l, Right anterior santana lesion improving like yesterday Cranial Nerves: normal hearing, normal speech, PERRL, grossly intact Current Medications: Current Medications Sig/Rick Start time Last Medication Dose Route Stop Time Status Admin Acetaminophen 650 MG Q6P PRN 07/19 1415 AC 07/28 PO 0823 Acetaminophen/ 1 TAB BID PRN 07/22 0930 AC 07/23 Butalbital/Caffeine PO 0751 Albuterol Sulfate 3 ML Q4P PRN 07/19 1245 AC 07/27 INH 1603 Aspirin 81 MG DAILY 07/19 1319 AC 07/28 PO 0822 Carvedilol 6.25 MG BID 07/21 2099 AC 07/28 PO 0825 Ciprofloxacin 500 MG DAILY@07/26 2100 AC 07/27 PO 07/29 2300 205 Clopidogrel Bisulfate 75 MG DAILY 07/19 1320 AC 07/28 PO 0822 Famotidine 20 MG ONCE ONE 07/28 0030 DC 07/28 PO 07/28 0031 0039 Ferrous Gluconate 324 MG TID 07/23 09 AC 07/28 PO 1521 Furosemide 40 MG DAILY 07/26 0943 AC 07/28 PO 0822 Gabapentin 100 MG Q8 07/18 2200 AC 07/28 PO 1522 Heparin Sodium 5,000 UNIT Q8 07/25 0919 AC 07/28 (Porcine) SC 1521 Levothyroxine Sodium 0.025 MG DAILY AC 07/19 07 AC 07/28 PO 0649 Metronidazole 500 MG Q8 07/25 220 AC 07/28 PO 07/29 2300 1521 Morphine Sulfate 2 MG Q4P PRN 07/26 1045 AC 07/27 SC 1746 Omeprazole 40 MG BID 07/25 2099 AC 07/28 PO 0823 Prednisone 10 MG DAILY 08/01 899 PO 08/03 0859 Prednisone 20 MG DAILY 07/30 899 AC PO 08/01 0859 Prednisone 30 MG DAILY 07/28 09 AC 07/28 PO 07/30 0859 0822 Prednisone 40 MG DAILY 07/26 899 DC 07/27 PO 07/28 0859 0858 Sertraline HCl 25 MG QAM 07/19 09 AC 07/28 PO 0823 Sodium Chloride 2 SPRAY Q4P PRN 07/24 1730 AC 07/26 NAOMIE 0931 Last 24 Hrs of Lab/Rubin Results Last 24 Hrs of Labs/Mics: Laboratory Tests 07/28/17 0850: Anion Gap 7, Estimated GFR 29 L, BUN/Creatinine Ratio 31.8 H, CBC w Diff NO MAN DIFF REQ, RBC 3.44 L, MCV 92.1, MCH 29.8, MCHC 32.4 L, RDW 17.1 H, MPV 8.0, Gran % 83.9 H, Lymphocytes % 9.7 L, Monocytes % 5.5, Eosinophils % 0.9, Basophils % 0, Absolute Granulocytes 10.4 H, Absolute Lymphocytes 1.2, Absolute Monocytes 0.7 H, Absolute Eosinophils 0.1, Absolute Basophils 0 Assessment/Plan Assessment: 76-year-old female with a history of anxiety/depression, rheumatoid arthritis on chronic steroid therapy, previous deep venous thrombosis on chronic anticoagulation with Xarelto (Currently on hold), obesity, obstructive sleep apnea on CPAP, chronic anemia, hypertension, left ventricular hypertrophy with diastolic dysfunction, and aortic regurgiatation who presented to the ED on 07/18/2017 with complaints of jane blood in her 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 She had a complicated course in this stay with resp failure, renal failure, colitis, anemia, requiring transfusions as mentioned below. Patient is currently in the telemetry floor for the management of following issues: Respiratory: Acute hypoxic hypercarbic respiratory failure, 2/2 fluid overload, improving * Will continue TRC/nebs, O2 via NC @3L/min * PO Prednisone tapering, will check if she needs steroids at baseline or not * PO lasix daily PRN Infectious Diseases: Colitis, on IV abx Cipro/Flagyl D8 today * Keep the head of the bed elevated for aspiration precaution * On IV abx per GI for 10 days total, today is D9 on Cipro/Flagyl * Monitor for any fever * Watch Rt santana for any signs of infection Cardiovascular: Type 2 [place], 2/2 CHF exacerbation, no ACS, no fluid overload now * Appreciate nail cutter recommendation * Continue dual antiplatelet therapy * Continue to hold lisinopril * Continue PO Lasix as needed * Patient's anticoagulation was discontinued in her last admission, so does NOT need to be restarted on Xarelto. Hematology: GI bleeding (ABLA, requiring blood transfusion), Stable H/H now * No anticoagulation (Xarelto on hold) * Daily H&H and transfuse for Hb<8 Metabolic: MARVEL on CKD, improving * Repeat BEP at am for creatinine and electrolytes Alimentary: * Regular diet, no issues * Spoke with Dr Dewitt requesting a follow up as GI service wanted to pursue colonoscopy when patient is more stable. * Will make her NPO after MN if planning for any scope tomorrow. Neurological: * Headache, improving * Continue pain meds * Of note, patient is chronically on pain meds (opiates) HOUSEKEEPING: Location: Tele Diet: Hearty healthy diet DVT/Prophylaxis: mechanical IV access: Peripherals Cueto: NAE'ed on 07/25/17 Code Status: Do Not Resucitate/Do Not Intubate Problem List: 1. GI bleed 2. Acute respiratory failure 3. Colitis 4. Myocardial infarction type 2 5. MARVEL (acute kidney injury) Pain Ratin Pain Location: back, head Pain Goal: Pain 4 or less Pain Plan: prn as above Tomorrow's Labs & Rationales: KIP Bundy MD,Shefali 07/28/17 1453: Attending MD Review Statement Attending Statement Attending MD Statement: examined this patient, discuss w/resident/PA/[employer], agreed w/resident/PA/[employer], reviewed EMR data (avail), discussed with nursing, discussed with case mgmt, reviewed images Attending Assessment/Plan: 76-year-old female transferred from the ICU. She has a past medical history of aortic regurgitation, diastolic dysfunction and severe arthritis- she is chronically prednisone dependent. She also has obesity and coronary artery disease with recent stents and dual antiplatelet therapy. She is here after treatment with a GI bleed. She had bright red blood from her ostomy site. She was transfused however an endoscopic procedure was not possible because of high oxygen requirement and acute hypoxemic respiratory failure. She is better and now on telemetry. We have her on Lasix and we are treating with diastolic heart failure and titrating down the oxygen. She remains on aspirin and Plavix for dual antiplatelet therapy. She is also being treated empirically for an ischemic colitis with by mouth Cipro and Flagyl and will finish antibiotic course in a day or two. At this point we are going to reach out to GI again to see that now that her O2 requirement is optimized, whether we can do any kind of procedure through the ostomy site now. PT has seen her and is recommending STR and will need to follow that closely as well.
[2017-07-28 09:32] LABS: ABSOLUTE BASOPHIL COUNT 0 /CUMM (0.0-0.2); ABSOLUTE EOSINOPHIL COUNT 0.1 /CUMM (0.0-0.7); ABSOLUTE GRANULOCYTE CT 10.4 /CUMM (1.4-6.5); ABSOLUTE LYMPH COUNT 1.2 /CUMM (1.2-3.4); ABSOLUTE MONOCYTE COUNT 0.7 /CUMM (0.10-0.60); BASOPHIL % 0 % (0.0-2.0); EOSINOPHIL % 0.9 % (0-5); GRANULOCYTE % 83.9 % (42.2-75.2); HEMATOCRIT 31.6 % (37-47); MEAN CORPUSCULAR HGB 29.8 PG (27.0-31.0); MEAN CORPUSCULAR HGB CONC 32.4 G/DL (33.0-37.0); MEAN CORPUSCULAR VOLUME 92.1 FL (81.0-99.0); PLATELET COUNT 267 /CUMM (130-400); RBC DISTRIBUTION WIDTH 17.1 % (11.5-14.5); RED BLOOD CELL CT 3.44 /CUMM (4.20-5.40); WHITE BLOOD CELL COUNT 12.4 /CUMM (4.8-10.8)
--- NOTE | 2017-07-28 10:39 | PN- Pulmonary ---
Subjective HPI/Critical Care Issues: pt seen and examined transferred out of icu -dyspnea on exertion -resolved edema -no cough -no n/v/d/c -no dalal Objective Current Medications: Current Medications Sig/Rick Start time Last Medication Dose Route Stop Time Status Admin Acetaminophen 650 MG .STK-MED ONE 07/27 1408 DC PO 07/27 1409 Acetaminophen 650 MG Q6P PRN 07/19 1415 07/28 PO 0823 Acetaminophen/ 1 TAB BID PRN 07/22 0930 07/23 Butalbital/Caffeine PO 0751 Albuterol Sulfate 3 ML Q4P PRN 07/19 1245 AC 07/27 INH 1603 Aspirin 81 MG DAILY 07/19 1319 07/28 PO 0822 Carvedilol 6.25 MG BID 07/21 2099 AC 07/28 PO 0825 Ciprofloxacin 500 MG DAILY@07/26 2100 07/27 PO 07/30 Clopidogrel Bisulfate 75 MG DAILY 07/19 1320 07/28 PO 0822 Famotidine 20 MG ONCE ONE 07/28 0030 DC 07/28 PO 07/28 0031 0039 Ferrous Gluconate 324 MG TID 07/23 09 AC 07/28 PO 0824 Furosemide 40 MG DAILY 07/26 0943 07/28 PO 0822 Gabapentin 100 MG Q8 07/18 2200 AC 07/28 PO 0650 Heparin Sodium 5,000 UNIT Q8 07/25 0919 AC 07/28 (Porcine) SC 0650 Levothyroxine Sodium 0.025 MG DAILY AC 07/19 0700 07/28 PO 0649 Metronidazole 500 MG Q8 07/25 2200 07/28 PO 07/28 2000 0649 Morphine Sulfate 2 MG Q4P PRN 07/26 1045 07/27 SC 1746 Omeprazole 40 MG BID 07/25 2100 07/28 PO 0823 Prednisone 10 MG DAILY 08/01 899 AC PO 08/04 0759 Prednisone 20 MG DAILY 07/30 899 AC PO 08/02 0759 Prednisone 30 MG DAILY 07/28 899 AC 07/28 PO 07/30 0859 0822 Prednisone 40 MG DAILY 07/26 899 DC 07/27 PO 07/28 0859 0858 Sertraline HCl 25 MG QAM 07/19 0900 AC 07/28 PO 0823 Sodium Chloride 2 SPRAY Q4P PRN 07/24 1730 AC 07/26 NAOMIE 0931 Vital Signs & I&O Last 24 Hrs of Vitals and I&O: Vital Signs Date Time Temp Pulse Resp B/P B/P Pulse O2 O2 Flow FiO2 Mean Ox Delivery Rate 07/28 0825 68 154/70 07/28 0800 Nasal 3.0L Cannula 07/28 0651 97.9 62 16 146/64 98 Nasal Cannula 07/28 0000 Nasal 3.0L Cannula 07/27 2227 97.8 67 20 156/64 98 Nasal 3.0L Cannula 07/27 2054 67 17 140/64 07/27 1605 97 Nasal 3.0L Cannula 07/27 1600 97 Nasal 3.0L Cannula 07/27 1600 98.4 72 20 128/70 97 Nasal 3.0L Cannula Intake & Output 07/28 1600 07/28 0807/28 0000 Intake Total 180 120 Output Total 1 Balance 180 119 Intake, Oral 180 120 Output, Stool 1 Patient 166 lb Weight Weight Bed scale Measurement Method Exam General Appearance: no apparent distress, alert, awake, comfortable Head: normal appearance Respiratory: decreased breath sounds, rhonchi Cardiovascular: regular rate/rhythm Abdomen: normal bowel sounds, soft Extremities: no edema Skin: intact, normal color, warm/dry Results Last 24 Hrs of Lab Results: Laboratory Tests 07/28/17 0850: Anion Gap 7, Estimated GFR 29 L, BUN/Creatinine Ratio 31.8 H, CBC w Diff NO MAN DIFF REQ, RBC 3.44 L, MCV 92.1, MCH 29.8, MCHC 32.4 L, RDW 17.1 H, MPV 8.0, Gran % 83.9 H, Lymphocytes % 9.7 L, Monocytes % 5.5, Eosinophils % 0.9, Basophils % 0, Absolute Granulocytes 10.4 H, Absolute Lymphocytes 1.2, Absolute Monocytes 0.7 H, Absolute Eosinophils 0.1, Absolute Basophils 0 Impression/Plan Impression/Plan Impression/Plan: Impression 76 year old woman * Improving - respiratory failure improving, likely secondary to fluid overload/ blood transfusions * resolved - acute blood loss anemia/gi bleeding Plan -fio2 goal to support spo2 >92% -prednisone taper as ordered, reduce by 10mg every 2 days, then stop -aspiration precautions -on cipro and flagyl (10 days total) -f/u cardiology -per cardio and GI - pt remains on asa, plavix, will monitor for any significant further bleeding -creatinine improved, nephrology appreciated -morphine for pain and dyspnea DVT prophylaxis at all times DNR/DNI
[2017-07-28 15:02] VITALS: BP 140/70
--- NOTE | 2017-07-28 17:59 | PN- Gastroenterology ---
Assessment/Plan GI Assessment/Recommendations: Called by medical team to reevaluate the patient. * Status post GI bleed. * Upper abdominal pain syndrome. Discussion held with patient and son concerning EGD and colonoscopy, and the patient wishes to consider this and decide tomorrow. For now, please change to clear liquid diet as of tomorrow morning. Subjective Subjective: No active bleeding since last seen by GI. Objective Vital Signs and I&Os Vital Signs Date Time Temp Pulse Resp B/P B/P Pulse O2 O2 Flow FiO2 Mean Ox Delivery Rate 07/28 1502 98.2 67 22 140/70 98 Nasal 3.0L Cannula 07/28 1038 97 Nasal 2.0L Cannula 07/28 0825 68 154/70 07/28 0800 Nasal 3.0L Cannula 07/28 0651 97.9 62 16 146/64 98 Nasal Cannula 07/28 0000 Nasal 3.0L Cannula 07/27 2227 97.8 67 20 156/64 98 Nasal 3.0L Cannula 07/27 2054 67 17 140/64 Intake & Output 07/28 1600 07/28 0400 07/27 1600 07/27 0400 07/26 1600 07/26 0400 Intake Total 780 120 600 120 660 590 Output Total 200 1 20 0 50 450 Balance 580 119 580 120 610 140 Intake, IV 230 Intake, Oral 780 120 600 120 660 360 Output, Stool 200 1 20 0 50 25 Output, Urine 425 Patient 166 lb Weight Weight Bed scale Measurement Method Physical Exam: Abdomen soft, nontender. Current Medications: Current Medications Sig/Rick Start time Last Medication Dose Route Stop Time Status Admin Acetaminophen 650 MG Q6P PRN 07/19 1415 AC 07/28 PO 1637 Acetaminophen/ 1 TAB BID PRN 07/22 0930 AC 07/23 Butalbital/Caffeine PO 075 Albuterol Sulfate 3 ML Q4P PRN 07/19 1245 AC 07/27 INH 1603 Aspirin 81 MG DAILY 07/19 1319 AC 07/28 PO 0822 Carvedilol 6.25 MG BID 07/21 2099 AC 07/28 PO 0825 Ciprofloxacin 500 MG DAILY@07/26 2100 AC 07/27 PO 07/29 2300 205 Clopidogrel Bisulfate 75 MG DAILY 07/19 1320 AC 07/28 PO 0822 Famotidine 20 MG ONCE ONE 07/28 0030 DC 07/28 PO 07/28 003 003 Ferrous Gluconate 324 MG TID 07/23 09 AC 07/28 PO 1521 Furosemide 40 MG DAILY 07/26 0943 AC 07/28 PO 0822 Gabapentin 100 MG Q8 07/18 2200 AC 07/28 PO 1522 Heparin Sodium 5,000 UNIT Q8 07/25 0919 AC 07/28 (Porcine) SC 1521 Levothyroxine Sodium 0.025 MG DAILY AC 07/19 0700 AC 07/28 PO 0649 Metronidazole 500 MG Q8 07/25 2200 AC 07/28 PO 07/29 2300 1521 Morphine Sulfate 2 MG Q4P PRN 07/26 1045 AC 07/27 SC 1746 Omeprazole 40 MG BID 07/25 2100 AC 07/28 PO 0823 Prednisone 10 MG DAILY 08/01 899 AC PO 08/03 0859 Prednisone 20 MG DAILY 07/30 09 AC PO 08/01 0859 Prednisone 30 MG DAILY 07/28 09 AC 07/28 PO 07/30 0859 0822 Prednisone 40 MG DAILY 07/26 09 DC 07/27 PO 07/28 0859 0858 Sertraline HCl 25 MG QAM 07/19 09 AC 07/28 PO 0823 Sodium Chloride 2 SPRAY Q4P PRN 07/24 1730 AC 07/26 NAOMIE 0931 Results Pertinent Lab Results: Laboratory Tests 07/28 07/27 0850 0549 Chemistry Sodium (137 - 145 mmol/L) 138 137 Potassium (3.5 - 5.1 mmol/L) 4.8 5.1 Chloride (98 - 107 mmol/L) 106 106 Carbon Dioxide (22 - 30 mmol/L) 25 26 Anion Gap (5 - 16) 7 4 L BUN (7 - 17 mg/dL) 54 H 53 H Creatinine (0.5 - 1.0 mg/dL) 1.7 H 1.8 H Estimated GFR (>60 ml/min) 29 L 27 L BUN/Creatinine Ratio (7 - 25 %) 31.8 H Glucose (65 - 99 mg/dL) 92 Calcium (8.4 - 10.2 mg/dL) 8.7 Phosphorus (2.5 - 4.5 mg/dL) 4.1 Magnesium (1.6 - 2.3 mg/dL) 2.0 Total Bilirubin (0.2 - 1.3 mg/dL) 0.2 AST (14 - 36 U/L) 13 L ALT (9 - 52 U/L) 19 Albumin (3.5 - 5.0 g/dL) 1.9 L Hematology CBC w Diff NO MAN DIFF REQ NO MAN DIFF REQ WBC (4.8 - 10.8 /CUMM) 12.4 H 9.1 RBC (4.20 - 5.40 /CUMM) 3.44 L 3.14 L Hgb (12.0 - 16.0 G/DL) 10.3 L 9.3 L Hct (37 - 47 %) 31.6 L 28.8 L MCV (81.0 - 99.0 FL) 92.1 91.7 MCH (27.0 - 31.0 PG) 29.8 29.5 MCHC (33.0 - 37.0 G/DL) 32.4 L 32.2 L RDW (11.5 - 14.5 %) 17.1 H 17.1 H Plt Count (130 - 400 /CUMM) 267 254 MPV (7.4 - 10.4 FL) 8.0 7.6 Gran % (42.2 - 75.2 %) 83.9 H 82.1 H Lymphocytes % (20.5 - 51.1 %) 9.7 L 9.9 L Monocytes % (1.7 - 9.3 %) 5.5 7.4 Eosinophils % (0 - 5 %) 0.9 0.6 Basophils % (0.0 - 2.0 %) 0 0 Absolute Granulocytes (1.4 - 6.5 /CUMM) 10.4 H 7.5 H Absolute Lymphocytes (1.2 - 3.4 /CUMM) 1.2 0.9 L Absolute Monocytes (0.10 - 0.60 /CUMM) 0.7 H 0.7 H Absolute Eosinophils (0.0 - 0.7 /CUMM) 0.1 0.1 Absolute Basophils (0.0 - 0.2 /CUMM) 0 0 05/05 0611 Chemistry Sodium (137 - 145 mmol/L) 138 Potassium (3.5 - 5.1 mmol/L) 4.8 Chloride (98 - 107 mmol/L) 107 Carbon Dioxide (22 - 30 mmol/L) 24 Anion Gap (5 - 16) 7 BUN (7 - 17 mg/dL) 50 H Creatinine (0.5 - 1.0 mg/dL) 1.8 H Estimated GFR (>60 ml/min) 27 L Glucose (65 - 99 mg/dL) 88 Calcium (8.4 - 10.2 mg/dL) 8.6 Phosphorus (2.5 - 4.5 mg/dL) 4.3 Magnesium (1.6 - 2.3 mg/dL) 2.0 Total Bilirubin (0.2 - 1.3 mg/dL) 0.3 AST (14 - 36 U/L) 13 L ALT (9 - 52 U/L) 25 Albumin (3.5 - 5.0 g/dL) 2.1 L Hematology CBC w Diff MAN DIFF ORDERED WBC (4.8 - 10.8 /CUMM) 11.5 H RBC (4.20 - 5.40 /CUMM) 3.25 L Hgb (12.0 - 16.0 G/DL) 9.7 L Hct (37 - 47 %) 29.6 L MCV (81.0 - 99.0 FL) 91.2 MCH (27.0 - 31.0 PG) 29.8 MCHC (33.0 - 37.0 G/DL) 32.7 L RDW (11.5 - 14.5 %) 17.4 H Plt Count (130 - 400 /CUMM) 240 MPV (7.4 - 10.4 FL) 7.3 L Gran % (42.2 - 75.2 %) 83.6 H Lymphocytes % (20.5 - 51.1 %) 7.1 L Monocytes % (1.7 - 9.3 %) 9.1 Eosinophils % (0 - 5 %) 0.1 Basophils % (0.0 - 2.0 %) 0.1 Absolute Granulocytes (1.4 - 6.5 /CUMM) 9.6 H Absolute Lymphocytes (1.2 - 3.4 /CUMM) 0.8 L Absolute Monocytes (0.10 - 0.60 /CUMM) 1.1 H Absolute Eosinophils (0.0 - 0.7 /CUMM) 0 Absolute Basophils (0.0 - 0.2 /CUMM) 0 Platelet Estimate (ADEQUATE) ADEQUATE Poikilocytosis 1+
[2017-07-28 23:07] VITALS: BP 126/80
[2017-07-29 07:18] VITALS: BP 144/76
--- NOTE | 2017-07-29 07:50 | PN- Housestaff ---
Morgan CURTIS,Ba 07/29/17 0750: Subjective Follow-up For: #Acute hypoxic hypercarbic respiratory failure, secondary to fluid overload; #Colitis, on IV abx D10 #Lower GI bleeding, stable H/H #Acute renal failure on CKD, improving #Type 2 GA, no ACS, stable Complaints: no complaints Subjective: I followed up and examined the patient today. She is resting comfortably in bed, on nasal cannula, not in distress, does not offer any complaints. VSS. No nursing issues reported to me. Patient is on clear liquid diet. 1430 hrs: Patient mentioned to the nurse that she has trouble breathing. On further questioning, she mentioned she feels she difficulty while taking a deep breath in, but denies any chest pain, palpitation, heaviness or pressure over the chest. Her vitals are within normal limits with oxygen saturation above 92% on 1 L/m oxygen. On examination, she had b/l good air entry no wheezes, EXCEPT for right basal/lateral zone. CXR STAT pending (to compare). Review of Systems Constitutional: Reports: see HPI. Objective Last 24 Hrs of Vital Signs/I&O Vital Signs Date Time Temp Pulse Resp B/P B/P Pulse O2 O2 Flow FiO2 Mean Ox Delivery Rate 07/29 1436 97.8 66 20 130/60 96 Nasal 1.0L Cannula 07/29 0840 66 154/68 07/29 0800 97 Nasal 1.0L Cannula 07/29 0718 98.7 69 22 144/76 98 Nasal Cannula 07/28 2307 98.9 73 73 126/80 98 07/28 2101 Nasal 3.0L Cannula 07/28 2010 72 142/76 Intake & Output 07/29 1600 07/29 0800 07/29 0000 Intake Total 800 120 220 Output Total 100 200 Balance 700 -80 220 Intake, Oral 800 120 220 Output, Stool 100 200 Patient 75.92 kg Weight Physical Exam General Appearance: Alert, Oriented X3, Cooperative, No Acute Distress, obese Other Physical Findings: Head: atraumatic, normal appearance Respiratory: chest non-tender, decreased breath sounds (bilateral lung bases) Cardiovascular: regular rate/rhythm Gastrointestinal: normal bowel sounds, soft, non-tender, colostomy pouch in situ Extremities: +1 pitting edema b/l, Right anterior santana lesion stable Cranial Nerves: normal hearing, normal speech, PERRL, grossly intact Current Medications: Current Medications Sig/Rick Start time Last Medication Dose Route Stop Time Status Admin Acetaminophen 650 MG Q6P PRN 07/19 1415 AC 07/29 PO 1139 Acetaminophen/ 1 TAB BID PRN 07/22 0930 AC 07/23 Butalbital/Caffeine PO 0751 Albuterol Sulfate 3 ML Q4P PRN 07/19 1245 AC 07/27 INH 1603 Aspirin 81 MG DAILY 07/19 1319 AC 07/29 PO 0840 Carvedilol 6.25 MG BID 07/21 2099 AC 07/29 PO 0840 Ciprofloxacin 500 MG DAILY@07/26 2100 AC 07/28 PO 07/29 2302010 Clopidogrel Bisulfate 75 MG DAILY 07/19 1320 AC 07/29 PO 0840 Ferrous Gluconate 324 MG TID 07/23 09 AC 07/29 PO 1358 Furosemide 40 MG DAILY 07/26 0943 AC 07/29 PO 0840 Gabapentin 100 MG Q8 07/18 2200 AC 07/29 PO 1358 Heparin Sodium 5,000 UNIT Q8 07/25 09 AC 07/29 (Porcine) SC 1358 Levothyroxine Sodium 0.025 MG DAILY AC 07/19 0700 AC 07/29 PO 0655 Metronidazole 500 MG Q8 07/25 220 AC 07/29 PO 07/29 2300 1357 Morphine Sulfate 2 MG Q4P PRN 07/26 1045 AC 07/27 SC 1746 Omeprazole 40 MG BID 07/25 2099 AC 07/29 PO 0841 Polyethylene Glycol 1 GAL ONCE ONE 07/29 174 [place] PO 07/29 1746 Prednisone 10 MG DAILY 08/01 899 PO 08/03 0859 Prednisone 20 MG DAILY 07/30 899 AC PO 08/01 0859 Prednisone 30 MG DAILY 07/28 899 AC 07/29 PO 07/30 0859 0841 Sertraline HCl 25 MG QAM 07/19 09 AC 07/29 PO 0841 Sodium Chloride 2 SPRAY Q4P PRN 07/24 1730 AC 07/26 NAOMIE 0931 Last 24 Hrs of Lab/Rubin Results Last 24 Hrs of Labs/Mics: Laboratory Tests 07/29/17 0722: Anion Gap 5, Estimated GFR 36 L, BUN/Creatinine Ratio 39.3 H, CBC w Diff NO MAN DIFF REQ, RBC 3.31 L, MCV 91.7, MCH 29.7, MCHC 32.4 L, RDW 17.3 H, MPV 7.7, Gran % 82.5 H, Lymphocytes % 10.5 L, Monocytes % 5.4, Eosinophils % 1.6, Basophils % 0, Absolute Granulocytes 8.8 H, Absolute Lymphocytes 1.1 L, Absolute Monocytes 0.6, Absolute Eosinophils 0.2, Absolute Basophils 0 Assessment/Plan Assessment: 76-year-old female with a history of anxiety/depression, rheumatoid arthritis on chronic steroid therapy, previous deep venous thrombosis on chronic anticoagulation with Xarelto (Currently on hold), obesity, obstructive sleep apnea on CPAP, chronic anemia, hypertension, left ventricular hypertrophy with diastolic dysfunction, and aortic regurgiatation who presented to the ED on 07/18/2017 with complaints of jane blood in her colostomy bag FOR 1 d [employer]. She had a complicated course in this stay with resp failure, renal failure, colitis, anemia, requiring transfusions as mentioned below. Patient is currently in the telemetry floor for the management of following issues: Respiratory: Acute hypoxic hypercarbic respiratory failure, 2/2 fluid overload, improving * Will continue TRC/nebs, O2 via NC @2L/min (titrating) * PO Prednisone tapering, will check if she needs steroids at baseline or not * PO lasix daily * UPDATE: Patient's CXR reviewed today afternoon, and for pulm congestion additional Inj Lasix 10 mg IV was given Infectious Diseases: Colitis, IV abx Cipro/Flagyl D10 today * Keep the head of the bed elevated for aspiration precaution * Received IV abx per GI for 10 days total * Monitor for any fever * Watch Rt santana for any signs of infection Cardiovascular: Type 2 GA, 2/2 CHF exacerbation, no ACS * Appreciate line production cook recommendation * Continue dual antiplatelet therapy * Continue to hold lisinopril * Continue PO Lasix * Patient's anticoagulation was discontinued in her last admission, so does NOT need to be restarted on Xarelto. Hematology: GI bleeding (ABLA, requiring blood transfusion), Stable H/H now * No anticoagulation * Daily H&H and transfuse for Hb<8 Metabolic: MARVEL on CKD, improving * Repeat BEP at am for creatinine and electrolytes Alimentary: * Clear liquid diet, no issues * Waiting for GI sconsult about possible colonoscopy via the stoma ?tomorrow * Will make her NPO after MN if planning for any scope tomorrow. Neurological: * Headache, improving * Continue pain meds * Of note, patient is chronically on pain meds (opiates) * One dose of PO Xanax 0.5 mg ordered for anxiety today HOUSEKEEPING: Location: Tele Diet: Hearty healthy diet-->Clear liquid diet for now DVT/Prophylaxis: mechanical IV access: Peripherals Cueto: NAE'ed on 07/25/17 Code Status: Do Not Resucitate/Do Not Intubate Problem List: 1. GI bleed 2. Colitis 3. Acute respiratory failure 4. Myocardial infarction type 2 Pain Ratin Pain Location: head, back, shoulder (chronic) Pain Goal: Pain 4 or less Pain Plan: prn Tomorrow's Labs & Rationales: CBC, BEP Ping Del Castillo 07/29/17 1129: Attending MD Review Statement Attending Statement Attending MD Statement: examined this patient, discuss w/resident/PA/APPRAISER LAND, agreed w/resident/PA/APPRAISER LAND, discussed with family, reviewed EMR data (avail), discussed with nursing, discussed with case mgmt, reviewed images, amended to note Attending Assessment/Plan: 76-year-old female past medical history of aortic regurgitation, diastolic dysfunction and severe arthritis- she is chronically prednisone dependent, obesity and coronary artery disease with recent stents and dual antiplatelet therapy here with bright red blood from her ostomy site intially in ICU and then transferred. She was transfused for her acute blood loss anemia. acute on chronic CHF and acute hypoxemic respiratroy failure: Continue Lasix for diastolic heart failure and titrating down the oxygen. She remains on aspirin and Plavix for dual antiplatelet therapy. empiric treatment for an ischemic colitis with by mouth Cipro and Flagyl. Follow up GI for possible colonosocpy thru ostomy. PT has seen her and is recommending STR and will need to follow that closely as well.
[2017-07-29 07:53] LABS: ABSOLUTE BASOPHIL COUNT 0 /CUMM (0.0-0.2); ABSOLUTE EOSINOPHIL COUNT 0.2 /CUMM (0.0-0.7); ABSOLUTE GRANULOCYTE CT 8.8 /CUMM (1.4-6.5); ABSOLUTE LYMPH COUNT 1.1 /CUMM (1.2-3.4); ABSOLUTE MONOCYTE COUNT 0.6 /CUMM (0.10-0.60); BASOPHIL % 0 % (0.0-2.0); EOSINOPHIL % 1.6 % (0-5); GRANULOCYTE % 82.5 % (42.2-75.2); HEMATOCRIT 30.4 % (37-47); MEAN CORPUSCULAR HGB 29.7 PG (27.0-31.0); MEAN CORPUSCULAR HGB CONC 32.4 G/DL (33.0-37.0); MEAN CORPUSCULAR VOLUME 91.7 FL (81.0-99.0); MEAN PLATELET VOLUME 7.7 FL (7.4-10.4); PLATELET COUNT 283 /CUMM (130-400); RBC DISTRIBUTION WIDTH 17.3 % (11.5-14.5); RED BLOOD CELL CT 3.31 /CUMM (4.20-5.40); WHITE BLOOD CELL COUNT 10.7 /CUMM (4.8-10.8)
--- NOTE | 2017-07-29 13:04 | Discharge Summary ---
Visit Information Visit Dates Admission Date: 07/20/17 Discharge Date: 08/02/17 Hospital Course Course Attending Physician: James Cortes MD Primary Care Physician: Tong CURTIS,[facility] Course: 76 yo F with pmh of HTN, HFpEF, history of DVT on Xarelto, history of chronic anemia, TACO on CPAP, anxiety, CKD stage 4, HFpEF/Diastolic CHF, depression, rheumatoid arthritis, history of colonic perforation s/p colostomy presented with c/o jane blood in her colostomy bag for a day. She had a complicated course in this stay with anemia requiring blood transfusion, acute respiratory failure, acute renal failure, colitis, as mentioned below. Patient was initially managed in the ICU and later in the telemetry and general medical floor for the following issues: # Acute hypoxic hypercarbic respiratory failure, 2/2 fluid overload, improved Patient received lasix intravenously initially, improved and was alter discharged on oral Lasix. # Colitis, IV abx Cipro/Flagyl D10, #Completed Patient was started on Ciprofloxacin and Flagyl per GI service recommendations for colitis. She completed a course fo ten days in the hospital. # Type 2 MD, 2/2 CHF exacerbation, no ACS Patient had demand ischemia secondary to CHF exacerbation. ACS was ruled out with serial trop and EKG. We continued dual antiplatelet therapy given her risks. Patient's anticoagulation was discontinued in her last admission, so does NOT need to be restarted on Xarelto. # GI bleeding (ABLA, requiring blood transfusion), Stable H/H now Patient required two units of PRBC and two units of FFP in this stay. Her scource of bleeding was likely diverticulosis. No evidence of neoplasia or clilitis was found on Colonoscopy done through the ostomy on 07/30/17. She will need an out-patient pill-cam study though. # MARVEL on CKD, improved Patient's MARVEL was likely multifactorial, which now has improved. Latest Creatinine being 1.4. Patient was counseled extensively about her condition and she understood the plan, and agreed to it. Allergies: Coded Allergies: Penicillins (SWELLING, RASH, ITCH 07/18/17) cephalexin (From KEFLEX) (ITCHY 07/18/17) chocolate flavor (HEADACHE/MIGRAINE 07/18/17) codeine (ITCH 07/18/17) levofloxacin (From LEVAQUIN) (RASH 07/18/17) oxaprozin (From DAYPRO) (RASH 07/18/17) propoxyphene (UNKNOWN REACTION TO DARVOCET 07/18/17) Disposition Summary Disposition Principal Diagnosis: Acute blood loss anemia, secondary to diverticulosis; acute hypoxic hypercarbic respiratory failure secondary to fluid overload; colitis; type II MD; MARVEL on CKD Additional Diagnosis: anxiety/depression, rheumatoid arthritis on chronic steroid therapy, previous deep venous thrombosis on chronic anticoagulation with Xarelto (Currently on hold), obesity, obstructive sleep apnea on CPAP, chronic anemia, hypertension, left ventricular hypertrophy with diastolic dysfunction, and aortic regurgiatation, history of colonic perforation s/p colostomy Discharge Disposition: home health services Discharge Instructions General Discharge Information Code Status: Do Not Resucitate/Intubat Patient's Diet: Heart healthy diet Patient's Activity: As tolerated Follow-Up Instructions/Appts: Please follow up with your PCP within seven days. Please have your PCP do a medication reconcilliation. Please follow up with Labor Relations Specialist within seven days, we changed some of your medications while you were admitted. Please follow up with the GI service, we provided you with a referral, you might be considered for outpatient Pill Cam Study. Medications at Discharge Discharge Medications: Stop taking the following medications: Carvedilol (Carvedilol) 25 MG TABLET ORAL TWICE DAILY Qty = 60 Furosemide (Lasix) 20 MG TABLET ORAL DAILY Continue taking these medications: Levothyroxine Sodium (Levothyroxine Sodium) 25 MCG TABLET 1 Tablet ORAL DAILY BEFORE BREAKFAST Qty = 30 Comments: Last Taken: 08/02/17 Time: 0600 AM Lisinopril (Lisinopril) 10 MG TABLET 1 Tablet ORAL Every Morning Qty = 30 Comments: Last Taken: NOT GIVEN Time: Sertraline HCl (Sertraline HCl) 25 MG TABLET 1 Tablet ORAL Every Morning Qty = 30 Comments: Last Taken: 08/02/17 Time: 1000 AM Prednisone (Prednisone) 10 MG TABLET 1 Tablet ORAL Every Morning Qty = 30 Comments: Last Taken: 08/02 Time: 1000 AM Ergocalciferol (Vitamin D2) (Vitamin D2) 50,000 UNIT CAPSULE 1 Capsule ORAL EVERY FRIDAY Qty = 12 Comments: Last Taken: NOT GIVEN Time: Calcium Carbonate/Vitamin D3 (Os-Mehdi 500+D3 Caplet) 500 MG-200 TABLET 1 Tablet ORAL DAILY Comments: Last Taken: 08/02/17 Time: 1000 AM Sennosides/Docusate Sodium (Senna Plus Tablet) 8.6 MG-50 MG TABLET 1 Tablet ORAL DAILY NEEDED as needed for CONSTIPATION Qty = 30 Instructions: . Comments: NOT GIVEN IN HOSPITAL. Ferrous Gluconate (Ferrous Gluconate) (Unknown Strength) TABLET Unknown Dose ORAL DAILY Comments: Last Taken: 08/02 Time: 1000 AM Potassium Chloride (Klor-Con 10) (Unknown Strength) TABLET.ER Unknown Dose ORAL DAILY Comments: NOT GIVEN Metoclopramide HCl (Reglan) 10 MG TABLET 1 Tablet ORAL THREE TIMES DAILY Instructions: 30 minutes before meals and bedtime Comments: Last Taken: NOT GIVEN Time: Butalb/Acetaminophen/Caffeine (Uvyoad-Zkesdqxe-Zueo 50-325-40) 50 MG-325 MG-40 MG TABLET 1 Tablet ORAL TWICE DAILY as needed for migrain Comments: Last Taken: 08/02 Time: 1020 AM Cyclobenzaprine HCl (Cyclobenzaprine HCl) 5 MG TABLET 1 Tablet ORAL THREE TIMES A DAY NEEDED as needed for muscle spasms Comments: NOT GIVEN IN HOSPITAL. Fenofibrate,Micronized (Fenofibrate) 200 MG CAPSULE 1 Capsule ORAL DAILY Comments: NOT GIVEN IN HOSPITAL. Docusate Sodium (Docusate Sodium) 100 MG CAPSULE 1 Capsule ORAL DAILY Comments: NOT GIVEN IN HOSPITAL. Tramadol HCl (Tramadol HCl) 50 MG TABLET 1 Tablet ORAL EVERY SIX HOURS as needed for PAIN SCALE 7-10 (SEVERE) Qty = 30 Comments: Last Taken: NOT GIVEN Time: Nitroglycerin (Nitroglycerin Patch) 0.4 MG/HOUR PATCH.TD24 1 PATCH On the skin DAILY Qty = 15 Comments: NOT GIVEN Gabapentin (Gabapentin) 100 MG CAPSULE 1 Capsule ORAL EVERY 8 HOURS Qty = 30 Comments: Last Taken: 08/02/17 Time: 1000 AM Aspirin (Aspirin*) 81 MG TAB.CHEW 1 Tablet ORAL DAILY Qty = 30 Comments: Last Taken: 08/02/17 Time: 1000 AM Clopidogrel Bisulfate (Plavix) 75 MG TABLET 1 Tablet ORAL DAILY Qty = 30 Comments: Last Taken: 08/02/17 Time: 1000 AM Start taking the following new medications: Carvedilol (Carvedilol) 6.25 MG TABLET 6.25 Milligram ORAL TWICE DAILY Qty = 60 No Refills Instructions: . Comments: Last Taken: 08/02/17 Time: 1000 AM Furosemide (Lasix) 40 MG TABLET 40 Milligram ORAL DAILY Qty = 30 No Refills Instructions: . Comments: Last Taken: 08/02/17 Time: 1000 AM Esomeprazole (Nexium) 40 MG CAPSULE.DR 1 Capsule ORAL DAILY Qty = 30 No Refills Instructions: .. Comments: Last Taken: 08/02/17 Time: 1000 AM Copies To: Tong CURTIS,Corrina
--- NOTE | 2017-07-29 13:51 | PN- Gastroenterology ---
Assessment/Plan GI Assessment/Recommendations: * Status post GI bleed. * Upper abdominal pain syndrome. Recommendations * Continue clear liquid diet * Prep for EGD/colonoscopy (via ostomy) to be performed tomorrow. Give 1 gallon of GoLYTELY today. Nothing by mouth after midnight. * Check CBC and INR in the morning. Subjective Subjective: Slightly short of breath. No pain, nausea, vomiting, evidence of GI bleeding. Objective Vital Signs and I&Os Vital Signs Date Time Temp Pulse Resp B/P B/P Pulse O2 O2 Flow FiO2 Mean Ox Delivery Rate 07/30 839 66 154/68 07/29 0800 97 Nasal 1.0L Cannula 07/29 717 98.7 69 22 144/76 98 Nasal Cannula 07/28 2307 98.9 73 73 126/80 98 07/28 2101 Nasal 3.0L Cannula 07/28 2010 72 142/76 07/28 1502 98.2 67 22 140/70 98 Nasal 3.0L Cannula Intake & Output 07/29 0400 07/28 0400 07/27 1600 07/27 0400 Intake Total 120 220 780 120 600 120 Output Total 200 200 1 20 0 Balance -80 220 580 119 580 120 Intake, Oral 120 220 780 120 600 120 Output, Stool 200 200 1 20 0 Patient 167 lb 166 lb Weight Weight Bed scale Measurement Method Physical Exam: Wearing nasal cannula, slightly dyspneic. Sclera anicteric. Abdomen obese, nondistended, nontender. Current Medications: Current Medications Sig/Rick Start time Last Medication Dose Route Stop Time Status Admin Acetaminophen 650 MG .STK-MED ONE 07/28 1636 DC PO 07/28 1637 Acetaminophen 650 MG Q6P PRN 07/19 1415 07/29 PO 1139 Acetaminophen/ 1 TAB BID PRN 07/22 0930 AC 07/23 Butalbital/Caffeine PO 0751 Albuterol Sulfate 3 ML Q4P PRN 07/19 1245 AC 07/27 INH 1603 Aspirin 81 MG DAILY 07/19 1319 AC 07/29 PO 0840 Carvedilol 6.25 MG BID 07/21 2099 AC 07/29 PO 0840 Ciprofloxacin 500 MG DAILY@07/26 AC 07/28 PO 07/29 Clopidogrel Bisulfate 75 MG DAILY 07/19 1320 AC 07/29 PO 0840 Ferrous Gluconate 324 MG TID 07/23 09 AC 07/29 PO 0840 Furosemide 40 MG DAILY 07/26 0943 AC 07/29 PO 0840 Gabapentin 100 MG Q8 07/18 220 AC 07/29 PO 0655 Heparin Sodium 5,000 UNIT Q8 07/25 09 AC 07/29 (Porcine) SC 0655 Levothyroxine Sodium 0.025 MG DAILY AC 07/19 0700 AC 07/29 PO 0655 Metronidazole 500 MG Q8 07/25 220 AC 07/29 PO 07/29 2300 0655 Morphine Sulfate 2 MG Q4P PRN 07/26 1045 AC 07/27 SC 1746 Omeprazole 40 MG BID 07/25 2100 AC 07/29 PO 0841 Prednisone 10 MG DAILY 08/01 899 AC PO 08/03 0859 Prednisone 20 MG DAILY 07/30 899 AC PO 08/01 0859 Prednisone 30 MG DAILY 07/28 09 AC 07/29 PO 07/30 0859 0841 Sertraline HCl 25 MG QAM 07/19 09 AC 07/29 PO 0841 Sodium Chloride 2 SPRAY Q4P PRN 07/24 1730 AC 07/26 NAOMIE 0931 Results Pertinent Lab Results: Laboratory Tests 07/29 07/28 0722 0850 Chemistry Sodium (137 - 145 mmol/L) 138 138 Potassium (3.5 - 5.1 mmol/L) 4.8 4.8 Chloride (98 - 107 mmol/L) 107 106 Carbon Dioxide (22 - 30 mmol/L) 26 25 Anion Gap (5 - 16) 5 7 BUN (7 - 17 mg/dL) 55 H 54 H Creatinine (0.5 - 1.0 mg/dL) 1.4 H 1.7 H Estimated GFR (>60 ml/min) 36 L 29 L BUN/Creatinine Ratio (7 - 25 %) 39.3 H 31.8 H Hematology CBC w Diff NO MAN DIFF REQ NO MAN DIFF REQ WBC (4.8 - 10.8 /CUMM) 10.7 12.4 H RBC (4.20 - 5.40 /CUMM) 3.31 L 3.44 L Hgb (12.0 - 16.0 G/DL) 9.8 L 10.3 L Hct (37 - 47 %) 30.4 L 31.6 L MCV (81.0 - 99.0 FL) 91.7 92.1 MCH (27.0 - 31.0 PG) 29.7 29.8 MCHC (33.0 - 37.0 G/DL) 32.4 L 32.4 L RDW (11.5 - 14.5 %) 17.3 H 17.1 H Plt Count (130 - 400 /CUMM) 283 267 MPV (7.4 - 10.4 FL) 7.7 8.0 Gran % (42.2 - 75.2 %) 82.5 H 83.9 H Lymphocytes % (20.5 - 51.1 %) 10.5 L 9.7 L Monocytes % (1.7 - 9.3 %) 5.4 5.5 Eosinophils % (0 - 5 %) 1.6 0.9 Basophils % (0.0 - 2.0 %) 0 0 Absolute Granulocytes (1.4 - 6.5 /CUMM) 8.8 H 10.4 H Absolute Lymphocytes (1.2 - 3.4 /CUMM) 1.1 L 1.2 Absolute Monocytes (0.10 - 0.60 /CUMM) 0.6 0.7 H Absolute Eosinophils (0.0 - 0.7 /CUMM) 0.2 0.1 Absolute Basophils (0.0 - 0.2 /CUMM) 0 0 05/06 0549 Chemistry Sodium (137 - 145 mmol/L) 137 Potassium (3.5 - 5.1 mmol/L) 5.1 Chloride (98 - 107 mmol/L) 106 Carbon Dioxide (22 - 30 mmol/L) 26 Anion Gap (5 - 16) 4 L BUN (7 - 17 mg/dL) 53 H Creatinine (0.5 - 1.0 mg/dL) 1.8 H Estimated GFR (>60 ml/min) 27 L Glucose (65 - 99 mg/dL) 92 Calcium (8.4 - 10.2 mg/dL) 8.7 Phosphorus (2.5 - 4.5 mg/dL) 4.1 Magnesium (1.6 - 2.3 mg/dL) 2.0 Total Bilirubin (0.2 - 1.3 mg/dL) 0.2 AST (14 - 36 U/L) 13 L ALT (9 - 52 U/L) 19 Albumin (3.5 - 5.0 g/dL) 1.9 L Hematology CBC w Diff NO MAN DIFF REQ WBC (4.8 - 10.8 /CUMM) 9.1 RBC (4.20 - 5.40 /CUMM) 3.14 L Hgb (12.0 - 16.0 G/DL) 9.3 L Hct (37 - 47 %) 28.8 L MCV (81.0 - 99.0 FL) 91.7 MCH (27.0 - 31.0 PG) 29.5 MCHC (33.0 - 37.0 G/DL) 32.2 L RDW (11.5 - 14.5 %) 17.1 H Plt Count (130 - 400 /CUMM) 254 MPV (7.4 - 10.4 FL) 7.6 Gran % (42.2 - 75.2 %) 82.1 H Lymphocytes % (20.5 - 51.1 %) 9.9 L Monocytes % (1.7 - 9.3 %) 7.4 Eosinophils % (0 - 5 %) 0.6 Basophils % (0.0 - 2.0 %) 0 Absolute Granulocytes (1.4 - 6.5 /CUMM) 7.5 H Absolute Lymphocytes (1.2 - 3.4 /CUMM) 0.9 L Absolute Monocytes (0.10 - 0.60 /CUMM) 0.7 H Absolute Eosinophils (0.0 - 0.7 /CUMM) 0.1 Absolute Basophils (0.0 - 0.2 /CUMM) 0 Imaging/Other Studies: O2 sat today 98% on 1 L nasal cannula
[2017-07-29 14:36] VITALS: BP 130/60
--- NOTE | 2017-07-29 15:34 | RADIOLOGY REPORT ---
EXAMINATION: XR PORTABLE CHEST CLINICAL INFORMATION: Shortness of breath. Right-sided decreased breath sounds. COMPARISON: CXR from 07/24/2017 and 07/25/2017 TECHNIQUE: Portable frontal view of the chest was obtained. FINDINGS: Again noted is the enlarged cardiac silhouette and prominent central pulmonary vessels without overt interstitial edema. Uubmy-xb-[id number] sized pleural effusions and bibasilar opacities/atelectasis are not appreciably changed compared to 07/25/2017. No pneumothorax. Skeletal findings include chronic rotator cuff tear associated degenerative arthropathy of the shoulders. IMPRESSION: Cardiomegaly, pulmonary vascular congestion, pleural effusions and bibasilar atelectasis. Overall, the findings in the chest are not appreciably changed compared to 07/25/2017.
--- NOTE | 2017-07-29 16:45 | PN- Pulmonary ---
Subjective HPI/Critical Care Issues: pt seen and examined comfortable no new events Objective Current Medications: Current Medications Sig/Rick Start time Last Medication Dose Route Stop Time Status Admin Acetaminophen 650 MG Q6P PRN 07/19 1415 AC 07/29 PO 1139 Acetaminophen/ 1 TAB BID PRN 07/22 0930 AC 07/23 Butalbital/Caffeine PO 0751 Albuterol Sulfate 3 ML Q4P PRN 07/19 1245 AC 07/27 INH 1603 Aspirin 81 MG DAILY 07/19 1319 AC 07/29 PO 0840 Carvedilol 6.25 MG BID 07/21 2099 AC 07/29 PO 0840 Ciprofloxacin 500 MG DAILY@07/26 2100 AC 07/28 PO 07/29 2300 2010 Clopidogrel Bisulfate 75 MG DAILY 07/19 1320 AC 07/29 PO 0840 Ferrous Gluconate 324 MG TID 07/23 09 AC 07/29 PO 1358 Furosemide 40 MG DAILY 07/26 0943 AC 07/29 PO 0840 Gabapentin 100 MG Q8 07/18 2200 AC 07/29 PO 1358 Heparin Sodium 5,000 UNIT Q8 07/25 09 AC 07/29 (Porcine) SC 1358 Levothyroxine Sodium 0.025 MG DAILY AC 07/19 0700 AC 07/29 PO 0655 Metronidazole 500 MG Q8 07/25 220 AC 07/29 PO 07/29 2300 1357 Morphine Sulfate 2 MG Q4P PRN 07/26 1045 AC 07/27 SC 1746 Omeprazole 40 MG BID 07/25 2100 AC 07/29 PO 0841 Prednisone 10 MG DAILY 08/01 899 AC PO 08/03 0859 Prednisone 20 MG DAILY 07/30 899 PO 08/01 0859 Prednisone 30 MG DAILY 07/28 09 AC 07/29 PO 07/30 0859 0841 Sertraline HCl 25 MG QAM 07/19 09 AC 07/29 PO 0841 Sodium Chloride 2 SPRAY Q4P PRN 07/24 1730 AC 07/26 NAOMIE 0931 Vital Signs & I&O Last 24 Hrs of Vitals and I&O: Vital Signs Date Time Temp Pulse Resp B/P B/P Pulse O2 O2 Flow FiO2 Mean Ox Delivery Rate 07/29 1436 97.8 66 20 130/60 96 Nasal 1.0L Cannula 07/30 839 66 154/68 07/29 08 97 Nasal 1.0L Cannula 07/29 717 98.7 69 22 144/76 98 Nasal Cannula 07/28 2306 98.9 73 73 126/80 98 07/28 2100 Nasal 3.0L Cannula 07/28 2010 72 142/76 Intake & Output 07/29 1600 07/29 0800 07/29 0000 Intake Total 800 120 220 Output Total 100 200 Balance 700 -80 220 Intake, Oral 800 120 220 Output, Stool 100 200 Patient 167 lb Weight Exam Other Physical Findings: awake and alert cardiac exam normal lungs are clear anterior and reduced at bases no edema has stoma Results Last 24 Hrs of Lab Results: Laboratory Tests 07/29/17721: Anion Gap 5, Estimated GFR 36 L, BUN/Creatinine Ratio 39.3 H, CBC w Diff NO MAN DIFF REQ, RBC 3.31 L, MCV 91.7, MCH 29.7, MCHC 32.4 L, RDW 17.3 H, MPV 7.7, Gran % 82.5 H, Lymphocytes % 10.5 L, Monocytes % 5.4, Eosinophils % 1.6, Basophils % 0, Absolute Granulocytes 8.8 H, Absolute Lymphocytes 1.1 L, Absolute Monocytes 0.6, Absolute Eosinophils 0.2, Absolute Basophils 0 Impression/Plan Impression/Plan Impression/Plan: Impression 76 year old woman * Improving - respiratory failure improving, likely secondary to fluid overload/ blood transfusions * resolved - acute blood loss anemia/gi bleeding Plan -fio2 goal to support spo2 >92% -prednisone taper as ordered, reduce by 10mg every 2 days, then stop -aspiration precautions -morphine for pain and dyspnea -okay if plan for GI scope through stoma DVT prophylaxis at all times DNR/DNI
--- NOTE | 2017-07-29 18:28 | PN- Cardiology ---
Subjective Subjective: No specific complaints, but anxious about the proposed endoscopy. Now off telemetry. Objective Vital Signs and I&Os Vital Signs Date Time Temp Pulse Resp B/P B/P Pulse O2 O2 Flow FiO2 Mean Ox Delivery Rate 07/29 1436 97.8 66 20 130/60 96 Nasal 1.0L Cannula 07/29 0840 66 154/68 07/29 0800 97 Nasal 1.0L Cannula 07/29 0618 98.7 69 22 144/76 98 Nasal Cannula 07/28 2307 98.9 73 73 126/80 98 07/28 2101 Nasal 3.0L Cannula 07/28 2010 72 142/76 Intake & Output 07/29 1600 07/29 0807/29 0000 07/28 1600 07/28 0000 Intake Total 800 120 220 600 180 120 Output Total 100 200 200 1 Balance 700 -80 220 400 180 119 Intake, Oral 800 120 220 600 180 120 Output, Stool 100 200 200 1 Patient 167 lb 166 lb Weight Weight Bed scale Measurement Method Physical Exam: Well-developed, obese elderly female in no acute distress with oxygen in place. Vital signs: See above. Neck: No JVD, no bruits. Lungs: Decreased breath sounds bilaterally. Heart: S1, S2 with grade 1/6 systolic murmur. Abdomen: Soft, nontender, positive bowel sounds. Extremities: No edema. Current Medications: Current Medications Sig/Rick Start time Last Medication Dose Route Stop Time Status Admin Acetaminophen 650 MG Q6P PRN 07/19 1415 AC 07/29 PO 1139 Acetaminophen/ 1 TAB BID PRN 07/22 0930 AC 07/23 Butalbital/Caffeine PO 0751 Albuterol Sulfate 3 ML Q4P PRN 07/19 1245 AC 07/27 INH 1603 Aspirin 81 MG DAILY 07/19 1319 AC 07/29 PO 0840 Carvedilol 6.25 MG BID 07/21 2099 AC 07/29 PO 0840 Ciprofloxacin 500 MG DAILY@07/26 2100 AC 07/28 PO 07/29 Clopidogrel Bisulfate 75 MG DAILY 07/19 1320 AC 07/29 PO 0840 Ferrous Gluconate 324 MG TID 07/23 0900 AC 07/29 PO 1358 Furosemide 40 MG DAILY 07/26 0943 AC 07/29 PO 0840 Gabapentin 100 MG Q8 07/18 2199 AC 07/29 PO 1358 Heparin Sodium 5,000 UNIT Q8 07/25 0919 AC 07/29 (Porcine) SC 1358 Levothyroxine Sodium 0.025 MG DAILY AC 07/19 0700 AC 07/29 PO 0655 Metronidazole 500 MG Q8 07/25 2200 AC 07/29 PO 07/29 2300 1357 Morphine Sulfate 2 MG Q4P PRN 07/26 1045 AC 07/27 SC 1746 Omeprazole 40 MG BID 07/25 2100 AC 07/29 PO 0841 Polyethylene Glycol 1 GAL ONCE ONE 07/29 1745 DC PO 07/29 174 Prednisone 10 MG DAILY 08/01 899 AC PO 08/03 0859 Prednisone 20 MG DAILY 07/30 899 AC PO 08/01 0859 Prednisone 30 MG DAILY 07/28 09 AC 07/29 PO 07/31 0759 0841 Sertraline HCl 25 MG QAM 07/19 09 AC 07/29 PO 0841 Sodium Chloride 2 SPRAY Q4P PRN 07/24 1730 AC 07/26 NAOMIE 0931 Results Last 48 Hrs of Labs/Mics: Laboratory Tests 07/29/17 0722: Anion Gap 5, Estimated GFR 36 L, BUN/Creatinine Ratio 39.3 H, CBC w Diff NO MAN DIFF REQ, RBC 3.31 L, MCV 91.7, MCH 29.7, MCHC 32.4 L, RDW 17.3 H, MPV 7.7, Gran % 82.5 H, Lymphocytes % 10.5 L, Monocytes % 5.4, Eosinophils % 1.6, Basophils % 0, Absolute Granulocytes 8.8 H, Absolute Lymphocytes 1.1 L, Absolute Monocytes 0.6, Absolute Eosinophils 0.2, Absolute Basophils 0 07/28/17 0850: Anion Gap 7, Estimated GFR 29 L, BUN/Creatinine Ratio 31.8 H, CBC w Diff NO MAN DIFF REQ, RBC 3.44 L, MCV 92.1, MCH 29.8, MCHC 32.4 L, RDW 17.1 H, MPV 8.0, Gran % 83.9 H, Lymphocytes % 9.7 L, Monocytes % 5.5, Eosinophils % 0.9, Basophils % 0, Absolute Granulocytes 10.4 H, Absolute Lymphocytes 1.2, Absolute Monocytes 0.7 H, Absolute Eosinophils 0.1, Absolute Basophils 0 Recent Imaging Studies: CXR 07/29/2017: Cardiomegaly, pulmonary vascular congestion, pleural effusions and bibasilar atelectasis. Overall, the findings in the chest are not appreciably changed compared to 07/25/2017. Assessment/Plan Assessment/Plan [id number] w/ hx of anxiety/depression, RA on steroid Rx, DVT previously on Eliquis, obesity, TACO, HTN, LVH, AR, diastolic dysfunction w/ acute on ch diastolic heart failure (HFpEF), colonic perforation following colonoscopy s/p Constance procedure September 2014 complicated by type II DC, MARVEL, bacteremia, etc. & chronic anemia w/ recent hospitalization for symptomatic anemia that improved w/ transfusion of PRBCs complicated by MARVEL on CKD, etc. who improved w/ standard measures, but w/ subsequent cardiac cath at [facility] that revealed a 70% LAD stenosis that was stented to 0% residual stenosis & ELSY-3 flow who was again admitted (07/07-07/11/2017) w/ worsening ch weakness, SOB, new bilat LE edema c/w HFpEF & a modest troponin I elevation from suspected type II DC who improved w/ standard therapy, but who returned w/ evidence of GI bleeding on dual antiplatelet Rx for her recent coronary stent. She has a colostomy and the plan is for endoscopy when she is clinically stable. There is tentatively planned for tomorrow. Continue DVT prophylaxis. Continue telemetry? No
[2017-07-29 22:28] VITALS: BP 130/86
[2017-07-29 22:31] VITALS: BP 130/60
[2017-07-30 06:12] VITALS: BP 122/74
--- NOTE | 2017-07-30 07:17 | PN- Housestaff ---
Subjective Follow-up For: #Acute hypoxic hypercarbic respiratory failure, secondary to fluid overload; #Colitis, #Lower GI bleeding, stable H/H #Acute renal failure on CKD, improving #Type 2 NE, no ACS, stable Subjective: Ms Corona was seen and examined this morning. She is resting comfortably in bed. Denies any issues ovenight. She has been made nothing by mouth and is currently drinking GoLYTELY for upcoming procedure scheduled for later this afternoon. Denies any fever, chills, nausea, vomiting. Denies any abdominal pain or abdominal discomfort. Does state that she feels anxious regarding upcoming procedure. Review of Systems Constitutional: Reports: see HPI. Objective Last 24 Hrs of Vital Signs/I&O Vital Signs Date Time Temp Pulse Resp B/P B/P Pulse O2 O2 Flow FiO2 Mean Ox Delivery Rate 07/30 1331 96 Nasal 1.0L Cannula 07/30 0858 63 130/68 07/30 0612 97.9 62 20 122/74 98 Nasal 1.0L Cannula 07/30 0000 96 Nasal 1.0L Cannula 07/29 2231 97.9 64 20 130/60 99 Nasal Cannula 07/29 2228 97.8 88 20 130/86 97 Nasal 1.0L Cannula 07/29 2040 68 130/86 07/29 1436 97.8 66 20 130/60 96 Nasal 1.0L Cannula Intake & Output 07/30 1600 07/30 0800 07/30 0000 Intake Total 2500 220 Output Total 1000 Balance 1500 220 Intake, Oral 2500 220 Number 1 Bowel Movements Output, Stool 1000 Patient 77.111 kg Weight Weight Bed scale Measurement Method Physical Exam General Appearance: Alert, Oriented X3, Cooperative HEENT: Atraumatic Cardiovascular: Regular Rate, Normal S1, Normal S2 Lungs: Clear to Auscultation Abdomen: Normal Bowel Sounds, Soft, No Tenderness, liquid stool seen in colostomy bag. Neurological: Normal Gait, Normal Speech, Strength at 5/5 X4 Ext Extremities: No Edema Current Medications: Current Medications Sig/Rick Start time Last Medication Dose Route Stop Time Status Admin Acetaminophen 650 MG .STK-MED ONE 07/30 0436 DC PO 07/30 05 Acetaminophen 650 MG .STK-MED ONE 07/29 1845 DC PO 07/29 184 Acetaminophen 650 MG Q6P PRN 07/19 1415 AC 07/30 PO 0538 Acetaminophen/ 1 TAB BID PRN 07/22 0930 07/23 Butalbital/Caffeine PO 0751 Albuterol Sulfate 3 ML Q4P PRN 07/19 1245 AC 07/27 INH 1603 Alprazolam 0.5 MG ONCE ONE 07/30 1200 DC 07/30 PO 07/30 1201 1205 Alprazolam 0.5 MG ONCE PRN 07/29 1845 AC 07/29 PO 08/05 1844 2054 Aspirin 81 MG DAILY 07/19 1319 AC 07/30 PO 0857 Carvedilol 6.25 MG BID 07/21 2100 AC 07/30 PO 0858 Ciprofloxacin 500 MG DAILY@2100 07/26 2100 DC 07/29 PO 07/29 2300 203 Clopidogrel Bisulfate 75 MG DAILY 07/19 1320 AC 07/30 PO 0857 Ferrous Gluconate 324 MG TID 07/23 0900 AC 07/30 PO 0900 Furosemide 40 MG .STK-MED ONE 07/29 2034 DC IV 07/29 203 Furosemide 10 MG ONCE ONE 07/29 184 DC 07/29 IV 07/29 1846 2037 Furosemide 40 MG DAILY 07/26 0943 AC 07/30 PO 0858 Gabapentin 100 MG Q8 07/18 2200 AC 07/30 PO 0538 Heparin Sodium 5,000 UNIT Q8 07/25 0919 DC 07/29 (Porcine) SC 2036 Levothyroxine Sodium 0.025 MG DAILY AC 07/19 0700 AC 07/30 PO 0640 Metronidazole 500 MG Q8 07/25 2200 DC 07/29 PO 07/29 2300 2036 Morphine Sulfate 2 MG Q4P PRN 07/26 1045 AC 07/27 SC 1746 Omeprazole 40 MG BID 07/25 2100 AC 07/30 PO 0859 Patient Medication 1 ED ONE ONE 07/30 1230 DC Teaching ED 07/30 1231 Polyethylene Glycol 1 GAL ONCE ONE 07/29 1745 DC 07/29 PO 07/29 1746 2010 Prednisone 10 MG DAILY 08/01 899 AC PO 08/03 0859 Prednisone 20 MG DAILY 07/30 899 AC 07/30 PO 08/01 0859 0858 Prednisone 30 MG DAILY 07/28 899 DC 07/29 PO 07/30 0859 0841 Sertraline HCl 25 MG QAM 07/19 0900 AC 07/30 PO 0858 Sodium Chloride 2 SPRAY Q4P PRN 07/24 1730 AC 07/26 NAOMIE 0931 Last 24 Hrs of Lab/Rubin Results Last 24 Hrs of Labs/Mics: Laboratory Tests 07/30/17 0710: Anion Gap 5, Estimated GFR 34 L, BUN/Creatinine Ratio 30.7 H, PT 12.1, INR 1.11, CBC w Diff NO MAN DIFF REQ, RBC 3.21 L, MCV 91.4, MCH 29.6, MCHC 32.4 L, RDW 17.3 H, MPV 7.7, Gran % 77.4 H, Lymphocytes % 13.1 L, Monocytes % 7.6, Eosinophils % 1.9, Basophils % 0, Absolute Granulocytes 5.8, Absolute Lymphocytes 1.0 L, Absolute Monocytes 0.6, Absolute Eosinophils 0.1, Absolute Basophils 0 Assessment/Plan Assessment: 76-year-old female with a history of anxiety/depression, rheumatoid arthritis on chronic steroid therapy, previous deep venous thrombosis on chronic anticoagulation with Xarelto (Currently on hold), obesity, obstructive sleep apnea on CPAP, chronic anemia, hypertension, left ventricular hypertrophy with diastolic dysfunction, and aortic regurgiatation who presented to the ED on 07/18/2017 with complaints of jane blood in her colostomy bag FOR 1 d [employer]. She had a complicated course in this stay with resp failure, renal failure, colitis, anemia, requiring transfusions as mentioned below. Patient is currently in the General Medical floor for the management of following issues: Respiratory: Acute hypoxic hypercarbic respiratory failure, 2/2 fluid overload, improving * Will continue TRC/nebs, O2 via NC @2L/min (titrating) * PO Prednisone tapering, will check if she needs steroids at baseline or not * PO lasix daily * May consider additional Inj Lasix once back from GI procedure. Infectious Diseases: Colitis, IV abx Cipro/Flagyl D10 today * Keep the head of the bed elevated for aspiration precaution * Received IV abx per GI for 10 days total * Monitor for any fever * Watch Rt santana for any signs of infection Cardiovascular: Type 2 NE, 2/2 CHF exacerbation, no ACS * Appreciate rotary lithographic press operator recommendation * Continue dual antiplatelet therapy * Continue to hold lisinopril * Continue PO Lasix * Patient's anticoagulation was discontinued in her last admission, so does NOT need to be restarted on Xarelto. Hematology: GI bleeding (ABLA, requiring blood transfusion), Stable H/H now * No anticoagulation * Daily H&H and transfuse for Hb<8 Metabolic: MARVEL on CKD, improving * Repeat BEP at am for creatinine and electrolytes Alimentary: * Awaiting to go for EGD/colonoscopy (via ostomy) * Will advance diet to Clear liquid diet, once she is back. Neurological: * Headache, improving * Continue pain meds * Of note, patient is chronically on pain meds (opiates) * One dose of PO Xanax 0.5 mg ordered for anxiety today prior to procedure. HOUSEKEEPING: Diet: NPO-->Clear liquid diet for after procedure. DVT/Prophylaxis: mechanical Cueto: DC'ed on 07/25/17 Code Status: Do Not Resucitate/Do Not Intubate Problem List: 1. GI bleed 2. Colitis 3. Acute respiratory failure Pain Ratin Pain Location: No Pain Endorsed Pain Goal: Remain pain free Pain Plan: Tyleol PRN Tomorrow's Labs & Rationales: CBC and BEP
[2017-07-30 08:17] LABS: ABSOLUTE BASOPHIL COUNT 0 /CUMM (0.0-0.2); ABSOLUTE EOSINOPHIL COUNT 0.1 /CUMM (0.0-0.7); ABSOLUTE GRANULOCYTE CT 5.8 /CUMM (1.4-6.5); ABSOLUTE MONOCYTE COUNT 0.6 /CUMM (0.10-0.60); BASOPHIL % 0 % (0.0-2.0); EOSINOPHIL % 1.9 % (0-5); GRANULOCYTE % 77.4 % (42.2-75.2); HEMATOCRIT 29.3 % (37-47); MEAN CORPUSCULAR HGB 29.6 PG (27.0-31.0); MEAN CORPUSCULAR HGB CONC 32.4 G/DL (33.0-37.0); MEAN CORPUSCULAR VOLUME 91.4 FL (81.0-99.0); MEAN PLATELET VOLUME 7.7 FL (7.4-10.4); PLATELET COUNT 291 /CUMM (130-400); RBC DISTRIBUTION WIDTH 17.3 % (11.5-14.5); RED BLOOD CELL CT 3.21 /CUMM (4.20-5.40); WHITE BLOOD CELL COUNT 7.5 /CUMM (4.8-10.8)
[2017-07-30 08:29] LABS: PT 12.1 SEC (9.4-12.5)
--- NOTE | 2017-07-30 08:33 | PN- Pulmonary ---
Subjective HPI/Critical Care Issues: Patient is comfortable on supplemental oxygen to 90 shortness of breath. Her chest x-ray suggests a degree of volume overload and BMP is markedly elevated. Objective Current Medications: Current Medications Sig/Rick Start time Last Medication Dose Route Stop Time Status Admin Acetaminophen 650 MG .STK-MED ONE 07/29 184 DC PO 07/29 184 Acetaminophen 650 MG .STK-MED ONE 07/29 1137 DC PO 07/29 1138 Acetaminophen 650 MG Q6P PRN 07/19 1415 AC 07/30 PO 0538 Acetaminophen/ 1 TAB BID PRN 07/22 0930 AC 07/23 Butalbital/Caffeine PO 075 Albuterol Sulfate 3 ML Q4P PRN 07/19 1245 AC 07/27 INH 1603 Alprazolam 0.5 MG ONCE PRN 07/29 184 AC 07/29 PO 08/05 184 205 Aspirin 81 MG DAILY 07/19 1319 AC 07/29 PO 0840 Carvedilol 6.25 MG BID 07/21 2099 AC 07/29 PO 2040 Ciprofloxacin 500 MG DAILY@07/26 2100 MS 07/29 PO 07/29 2299 203 Clopidogrel Bisulfate 75 MG DAILY 07/19 1320 AC 07/29 PO 0840 Ferrous Gluconate 324 MG TID 07/23 09 AC 07/29 PO 2040 Furosemide 40 MG .STK-MED ONE 07/29 2034 DC IV 07/29 203 Furosemide 10 MG ONCE ONE 07/29 184 DC 07/29 IV 07/29 184 2037 Furosemide 40 MG DAILY 07/26 0943 AC 07/29 PO 0840 Gabapentin 100 MG Q8 07/18 220 AC 07/30 PO 0538 Heparin Sodium 5,000 UNIT Q8 07/25 0819 DC 07/29 (Porcine) SC 2035 Levothyroxine Sodium 0.025 MG DAILY AC 07/19 0700 AC 07/30 PO 0640 Metronidazole 500 MG Q8 07/25 220 DC 07/29 PO 07/29 230 203 Morphine Sulfate 2 MG Q4P PRN 07/26 1045 AC 07/27 SC 1746 Omeprazole 40 MG BID 07/25 2100 AC 07/29 PO 2037 Polyethylene Glycol 1 GAL ONCE ONE 07/29 174 DC 07/29 PO 07/29 1742010 Prednisone 10 MG DAILY 08/01 899 PO 08/03 0859 Prednisone 20 MG DAILY 07/30 899 AC PO 08/02 0759 Prednisone 30 MG DAILY 07/28 899 AC 07/29 PO 07/30 0859 0841 Sertraline HCl 25 MG QAM 07/19 09 AC 07/29 PO 0841 Sodium Chloride 2 SPRAY Q4P PRN 07/24 1730 AC 07/26 NAOMIE 0931 Vital Signs & I&O Last 24 Hrs of Vitals and I&O: Vital Signs Date Time Temp Pulse Resp B/P B/P Pulse O2 O2 Flow FiO2 Mean Ox Delivery Rate 07/31 611 97.9 62 20 122/74 98 Nasal 1.0L Cannula 07/30 0000 96 Nasal 1.0L Cannula 07/29 2231 97.9 64 20 130/60 99 Nasal Cannula 07/29 2228 97.8 88 20 130/86 97 Nasal 1.0L Cannula 07/29 2040 68 130/86 07/29 1436 97.8 66 20 130/60 96 Nasal 1.0L Cannula 07/29 0840 66 154/68 Intake & Output 07/30 1600 07/30 0800 07/30 0000 Intake Total 2500 220 Output Total 1000 Balance 1500 220 Intake, Oral 2500 220 Number 1 Bowel Movements Output, Stool 1000 Patient 170 lb Weight Weight Bed scale Measurement Method Patient 1 L 98% exam for chest shows diminished breath sounds are no wheezes or crackles cardiac exam shows regular S1 and S2 without murmurs Impression/Plan Impression/Plan Impression/Plan: 76-year-old woman with COPD acute blood loss anemia pending endoscopy. Chest x- ray suggests a degree of vascular congestion and input has exceeded output. Recommendations: Consider diuresis. Taper FiO2 his saturations allow. Taper prednisone.
[2017-07-30 14:05] VITALS: BP 124/70
--- NOTE | 2017-07-30 15:49 | Proc Note Endoscopy ---
Endoscopy Procedure Procedure Date: 07/30/17 Procedure Type: EGD (preceding colonoscopy) Drive In Teller: Mitch Dewitt M.D. ASA Classification: III Indications: Anemia, GI bleed Abdominal pain Instrument: diagnostic gastroscope Meds Received: MAC (O2 via mask) Patient's Tolerance: good Complications: none Extent Reached: second part of duodenum Procedure: The patient signed informed consent for EGD and colonoscopy, and was medicated. Lidocaine pharyngeal spray was administered. Pulse oximetry, blood pressure and cardiac monitoring were performed continuously throughout the procedure. The Olympus high-definition gastroscope was inserted into the mouth and advanced to the duodenum. Retroflexion was performed within the stomach to examine the cardia. Careful examination was performed. Findings: The esophagus had normal caliber and contour. The mucosa was intact/normal throughout. There were no varices. The GE junction at 33 cm was normal. There was a hiatal hernia. Stomach had normal distention, and active peristalsis. The cardia was normal. The fundus was normal. There was streaky erythema in the body. The antrum was normal. The pyloric channel was normal. The duodenal bulb was normal. Mucosa and folds of the duodenal sweep were normal. Impression: * Hiatal hernia * Mild gastropathy Recommendations: * Antisecretory therapy as needed * Colonoscopy was performed immediately following this EGD; see report CC: Tong CURTIS,Aditi Zavala MD,Jayson Hewitt
--- NOTE | 2017-07-30 15:53 | Proc Note Colonoscopy ---
See Addendum Colonoscopy Procedure Procedure Date: 07/30/17 Procedure Type: colonoscopy (following EGD) Gravedigger: Mitch Dewitt M.D. ASA Classification: III Indications: Recent lower GI bleed Anemia Instrument (Colonoscope): pediatric Meds Received: MAC (O2 via mask) Patient's Tolerance: good Complications: none Extent Reached: cecum Prep: good Procedure: Following the initial EGD, the patient was placed in the supine position, and medicated. Examination of the left-sided stoma was normal. The Olympus high- definition variable stiffness pediatric colonoscope was inserted through the anus and advanced to the cecum, identified by the appendiceal orifice and ileocecal valve. Retroflexion was performed in order to examine the rectum and ascending colon. Careful examination was performed. There was adequate withdrawal time. Findings: There was mild patchy erythema to the mucosa immediately proximal to the stoma. In the distal colon there was diverticulosis. The mucosa, folds and vasculature were otherwise normal to the base of the cecum. There were no polyps. There was no gross colitis. Impression: * Diverticulosis * No evident neoplasia or evident colitis Recommendations: * Resume regular diet * Consider outpatient small bowel capsule endoscopy (PillCam) * Monitor CBC; this has been stable recently Thank you very much for having allowed gastroenterology service participation in this patient's care. Please call or reconsult as needed. We will be happy to follow the patient in our office following discharge. CC: Tong CURTIS,Corrina; Lucas CURTIS,Jayson Hewitt
--- NOTE | 2017-07-30 17:55 | PN- Cardiology ---
Subjective Subjective: No specific complaints. Objective Vital Signs and I&Os Vital Signs Date Time Temp Pulse Resp B/P B/P Pulse O2 O2 Flow FiO2 Mean Ox Delivery Rate 07/30 1405 97.9 59 20 124/70 95 Nasal 1.0L Cannula 07/30 1331 96 Nasal 1.0L Cannula 07/30 0858 63 130/68 07/30 0612 97.9 62 20 122/74 98 Nasal 1.0L Cannula 07/30 0000 96 Nasal 1.0L Cannula 07/29 2231 97.9 64 20 130/60 99 Nasal Cannula 07/29 2228 97.8 88 20 130/86 97 Nasal 1.0L Cannula 07/29 2040 68 130/86 Intake & Output 07/30 1600 07/30 0800 07/30 0000 07/29 1600 07/29 0000 Intake Total 2500 220 800 120 220 Output Total 1000 100 200 Balance 1500 220 700 -80 220 Intake, Oral 2500 220 800 120 220 Number 1 Bowel Movements Output, Stool 1000 100 200 Patient 170 lb 167 lb Weight Weight Bed scale Measurement Method Physical Exam: Well-developed, obese elderly female in no acute distress with nasal oxygen in place. Vital signs: See above. Neck: No JVD, no bruits. Lungs: Decreased breath sounds bilaterally. Heart: S1, S2 with grade 1/6 systolic murmur. No gallop or rub. Abdomen: Soft, nontender, positive bowel sounds. Extremities: No edema. Current Medications: Current Medications Sig/Rick Start time Last Medication Dose Route Stop Time Status Admin Acetaminophen 650 MG .STK-MED ONE 07/30 0536 DC PO 07/30 0537 Acetaminophen 650 MG .STK-MED ONE 07/29 1844 DC PO 07/29 184 Acetaminophen 650 MG Q6P PRN 07/19 1415 07/30 PO 0538 Acetaminophen/ 1 TAB BID PRN 07/22 0930 AC 07/23 Butalbital/Caffeine PO 0751 Albuterol Sulfate 3 ML Q4P PRN 07/19 1245 AC 07/27 INH 1603 Alprazolam 0.5 MG ONCE ONE 07/30 1200 DC 07/30 PO 07/30 1201 1205 Alprazolam 0.5 MG ONCE PRN 07/29 1845 AC 07/29 PO 08/05 184 2054 Aspirin 81 MG DAILY 07/19 1319 AC 07/30 PO 0857 Carvedilol 6.25 MG BID 07/21 2099 07/30 PO 0858 Ciprofloxacin 500 MG DAILY@2100 07/26 2099 LA 07/29 PO 07/29 2302036 Clopidogrel Bisulfate 75 MG DAILY 07/19 1320 07/30 PO 0857 Ferrous Gluconate 324 MG TID 07/23 09 AC 07/30 PO 0900 Furosemide 40 MG .STK-MED ONE 07/29 2034 LA IV 07/29 203 Furosemide 10 MG ONCE ONE 07/29 184 LA 07/29 IV 07/29 1846 2037 Furosemide 40 MG DAILY 07/26 0943 07/30 PO 0858 Gabapentin 100 MG Q8 07/18 220 07/30 PO 0538 Heparin Sodium 5,000 UNIT Q8 07/25 918 LA 07/29 (Porcine) SC 203 Levothyroxine Sodium 0.025 MG DAILY 07/19 0700 07/30 PO 0640 Lidocaine 2 ANA .STK-MED ONE 07/30 153 [facility] 07/30 1536 Lidocaine 50 ML .STK-MED ONE 07/30 1535 [facility] 07/30 1536 Metronidazole 500 MG Q8 07/25 2199 LA 07/29 PO 07/29 Morphine Sulfate 2 MG Q4P PRN 07/26 1045 07/27 UT 1746 Nystatin 1 ANA TID PRN 07/30 1515 [facility] Omeprazole 40 MG BID 07/25 2099 07/30 PO 0859 Patient Medication 1 ED ONE ONE 07/30 1230 LA Teaching ED 07/30 1231 Prednisone 10 MG DAILY 08/01 899 PO 08/03 0859 Prednisone 20 MG DAILY 07/30 899 07/30 PO 08/01 0859 0858 Prednisone 30 MG DAILY 07/28 899 LA 07/29 PO 07/30 0859 0841 Sertraline HCl 25 MG QAM 07/19 09 07/30 PO 0858 Sodium Chloride 2 SPRAY Q4P PRN 07/24 1730 07/26 NAOMIE 0931 Results Last 48 Hrs of Labs/Mics: Laboratory Tests 07/30/17 0710: Anion Gap 5, Estimated GFR 34 L, BUN/Creatinine Ratio 30.7 H, PT 12.1, INR 1.11, CBC w Diff NO MAN DIFF REQ, RBC 3.21 L, MCV 91.4, MCH 29.6, MCHC 32.4 L, RDW 17.3 H, MPV 7.7, Gran % 77.4 H, Lymphocytes % 13.1 L, Monocytes % 7.6, Eosinophils % 1.9, Basophils % 0, Absolute Granulocytes 5.8, Absolute Lymphocytes 1.0 L, Absolute Monocytes 0.6, Absolute Eosinophils 0.1, Absolute Basophils 0 07/29/17 0722: Anion Gap 5, Estimated GFR 36 L, BUN/Creatinine Ratio 39.3 H, CBC w Diff NO MAN DIFF REQ, RBC 3.31 L, MCV 91.7, MCH 29.7, MCHC 32.4 L, RDW 17.3 H, MPV 7.7, Gran % 82.5 H, Lymphocytes % 10.5 L, Monocytes % 5.4, Eosinophils % 1.6, Basophils % 0, Absolute Granulocytes 8.8 H, Absolute Lymphocytes 1.1 L, Absolute Monocytes 0.6, Absolute Eosinophils 0.2, Absolute Basophils 0 Recent Imaging Studies: EGD 07/30/2017: Hiatal hernia. Mild gastropathy. Colonoscopy 07/30/2017: Diverticular disease. Assessment/Plan Assessment/Plan [id number]-o-[id number]-f w/ hx of anxiety/depression, RA on steroid Rx, DVT previously on Eliquis, obesity, TACO, HTN, LVH, AR, diastolic dysfunction w/ acute on diastolic heart failure (HFpEF), colonic perforation following colonoscopy s/p Constance procedure September 2014 complicated by type II IN, MARVEL, bacteremia, etc. & chronic anemia w/ recent hospitalization for symptomatic anemia that improved w/ transfusion of PRBCs complicated by MARVEL on CKD, etc. who improved w/ standard measures, but w/ subsequent cardiac cath at [facility] that revealed a 70% LAD stenosis that was stented to 0% residual stenosis & ELSY-3 flow who was again admitted (07/07-07/11/2017) w/ worsening ch weakness, SOB, new bilat LE edema c/w HFpEF & a modest troponin I elevation from suspected type II IN who improved w/ standard therapy, but who returned w/ evidence of GI bleeding on dual antiplatelet Rx for her recent coronary stent. She has a colostomy and underwent endoscopy and colonoscopy earlier with no obvious source for bleeding discovered. The plan is for outpatient PillCam. Based on yesterday's CXR would give additional IV furosemide for negative fluid balance. Continue DVT prophylaxis. Continue telemetry? No
[2017-07-30 23:00] VITALS: BP 122/52
[2017-07-31 06:53] VITALS: BP 132/60
--- NOTE | 2017-07-31 07:17 | PN- Housestaff ---
Les CURTIS,[facility] 07/31/17 0717: Subjective Follow-up For: #Acute hypoxic hypercarbic respiratory failure, secondary to fluid overload; #Colitis, #Lower GI bleeding, stable H/H #Acute renal failure on CKD, improving #Type 2 IN, no ACS, stable Subjective: Ms Corona was seen and examined this morning. She is resting comfortably in bed. Denies any issues overnight although states she feels very tired likely owing to the fact that she had multiple procedures yesterday. Denies any fever, chills, nausea, vomiting. Denies any changes of output from colostomy to bag. Review of Systems Constitutional: Reports: see HPI. Objective Last 24 Hrs of Vital Signs/I&O Vital Signs Date Time Temp Pulse Resp B/P B/P Pulse O2 O2 Flow FiO2 Mean Ox Delivery Rate 07/31 0653 97.8 70 18 132/60 97 Nasal 1.0L Cannula 07/31 0000 Nasal 1.0L Cannula 07/30 2300 98.5 66 20 122/52 97 Nasal 1.0L Cannula 07/30 2107 66 122/52 07/30 1600 Nasal 1.0L Cannula 07/30 1405 97.9 59 20 124/70 95 Nasal 1.0L Cannula 07/30 1331 96 Nasal 1.0L Cannula Intake & Output 07/31 1600 07/31 0800 07/31 0000 Intake Total 100 100 Output Total 50 Balance 100 50 Intake, Oral 100 100 Output, Stool 50 Physical Exam General Appearance: Alert, Oriented X3, Cooperative Cardiovascular: Regular Rate, Normal S1, Normal S2 Lungs: Clear to Auscultation Abdomen: Normal Bowel Sounds, Soft, No Tenderness, Colostomy bag in place. Neurological: Normal Gait, Normal Speech, Strength at 5/5 X4 Ext Extremities: No Clubbing, No Cyanosis, No Edema Vascular: Normal Pulses Current Medications: Current Medications Sig/Rick Start time Last Medication Dose Route Stop Time Status Admin Acetaminophen 650 MG .STK-MED ONE 07/30 2110 DC PO 07/31 2111 Acetaminophen 650 MG Q6P PRN 07/19 1415 AC 07/31 PO 0613 Acetaminophen/ 1 TAB BID PRN 07/22 0930 AC 07/23 Butalbital/Caffeine PO 0751 Albuterol Sulfate 3 ML Q4P PRN 07/19 1245 AC 07/27 INH 1603 Alprazolam 0.5 MG ONCE ONE 07/30 1200 DC 07/30 PO 07/30 1201 1205 Alprazolam 0.5 MG ONCE PRN 07/29 1845 AC 07/30 PO 08/05 184 2112 Aspirin 81 MG DAILY 07/19 1319 AC 07/30 PO 0857 Carvedilol 6.25 MG BID 07/21 2100 AC 07/30 PO 2107 Clopidogrel Bisulfate 75 MG DAILY 07/19 1320 AC 07/30 PO 0857 Ferrous Gluconate 324 MG TID 07/23 09 AC 07/30 PO 2107 Furosemide 20 MG ONCE ONE 07/30 1914 DC 07/30 IV 07/31 1915 210 Furosemide 40 MG DAILY 07/26 0943 AC 07/30 PO 0858 Gabapentin 100 MG Q8 07/18 2200 AC 07/31 PO 0550 Levothyroxine Sodium 0.025 MG DAILY AC 07/19 0700 AC 07/31 PO 0550 Lidocaine 2 ANA .STK-MED ONE 07/30 153 IN TOP 07/30 1536 Lidocaine 50 ML .STK-MED ONE 07/30 1535 IN TOP 07/30 1536 Morphine Sulfate 2 MG Q4P PRN 07/26 1045 07/27 SC 1746 Nystatin 1 ANA TID PRN 07/30 1515 07/30 TOP 2123 Omeprazole 40 MG BID 07/25 2100 07/30 PO 210 Patient Medication 1 ED ONE ONE 07/30 1230 DC Teaching ED 07/30 1231 Prednisone 10 MG DAILY 08/01 899 PO 08/03 0859 Prednisone 20 MG DAILY 07/30 899 07/30 PO 08/01 0859 0858 Sertraline HCl 25 MG QAM 07/19 09 07/30 PO 0858 Sodium Chloride 2 SPRAY Q4P PRN 07/24 1730 AC 07/26 NAOMIE 0931 Last 24 Hrs of Lab/Rubin Results Last 24 Hrs of Labs/Mics: Laboratory Tests 07/31/17 0615: Anion Gap 6, Estimated GFR 36 L, BUN/Creatinine Ratio 31.4 H, CBC w Diff NO MAN DIFF REQ, RBC 2.86 L, MCV 92.0, MCH 29.7, MCHC 32.3 L, RDW 17.1 H, MPV 7.7, Gran % 77.7 H, Lymphocytes % 13.0 L, Monocytes % 7.6, Eosinophils % 1.5, Basophils % 0.2, Absolute Granulocytes 5.6, Absolute Lymphocytes 0.9 L, Absolute Monocytes 0.5, Absolute Eosinophils 0.1, Absolute Basophils 0 Assessment/Plan Assessment: 76-year-old female with a history of anxiety/depression, rheumatoid arthritis on chronic steroid therapy, previous deep venous thrombosis on chronic anticoagulation with Xarelto (Currently on hold), obesity, obstructive sleep apnea on CPAP, chronic anemia, hypertension, left ventricular hypertrophy with diastolic dysfunction, and aortic regurgiatation who presented to the ED on 07/18/2017 with 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 She had a complicated course in this stay with resp failure, renal failure, colitis, anemia, requiring transfusions as mentioned below. Patient is currently in the General Medical floor for the management of following issues: Respiratory: Acute hypoxic hypercarbic respiratory failure, 2/2 fluid overload, improving * Will continue TRC/nebs, O2 via NC @2L/min (titrating) * PO Prednisone tapering, will check if she needs steroids at baseline or not * PO lasix daily * May consider additional Inj Lasix, if hypoxic overnight in an effort to maintain negative fluid balance. Infectious Diseases: Colitis, IV abx Cipro/Flagyl D10, #Completed * Keep the head of the bed elevated for aspiration precaution * Received IV abx per GI for 10 days total * Monitor for any fever * Watch Rt santana for any signs of infection Cardiovascular: Type 2 IN, 2/2 CHF exacerbation, no ACS * Appreciate vp human resources recommendation * Continue dual antiplatelet therapy * Continue to hold lisinopril * Continue PO Lasix * Patient's anticoagulation was discontinued in her last admission, so does NOT need to be restarted on Xarelto. Hematology: GI bleeding (ABLA, requiring blood transfusion), Stable H/H now * No anticoagulation * Daily H&H and transfuse for Hb<8 Metabolic: MARVEL on CKD, improving * Repeat BEP at am for creatinine and electrolytes Alimentary: * Colonoscopy showed no acute pathology and suggested diverticulosis. * Continue Diet. Will likely need outpatient Pill Cam Study. * CBC in AM Neurological: * Headache, improving * Continue pain meds * Of note, patient is chronically on pain meds (opiates) HOUSEKEEPING: Diet: Heart Healthy DVT/Prophylaxis: mechanical Cueto: DC'ed on 07/25/17 Code Status: Do Not Resucitate/Do Not Intubate Problem List: Problem List: 1. GI bleed 2. Diverticulosis Pain Ratin Pain Location: No Pain Pain Goal: Remain pain free Pain Plan: Tylenop PRN Tomorrow's Labs & Rationales: CBC: Monitor H/H in the setting of acute illness. BEP: Monitor Cr James Cortes MD 07/31/17 1433: Attending MD Review Statement Attending Statement Attending MD Statement: examined this patient, discuss w/resident/PA/FORMULA MAKER, agreed w/resident/PA/FORMULA MAKER, reviewed EMR data (avail), discussed with nursing, discussed with case mgmt, amended to note Attending Assessment/Plan: The patient was seen and discussed with house staff. Had scopes yesterday and no evidence of bleeding. H/H slightly decreased today (8.5/26.3 from 9.5/29.3). No clinical bleeding. Still very deconditioned. PT to follow-up. The patient has 24 hour home care. Will taper oxygen and follow pulse ox. Follow-up H/H in morning.
--- NOTE | 2017-07-31 07:42 | PN- Pulmonary ---
Subjective HPI/Critical Care Issues: Patient tolerated GI procedures. Respiratory status is remained stable Objective Current Medications: Current Medications Sig/Rick Start time Last Medication Dose Route Stop Time Status Admin Acetaminophen 650 MG .STK-MED ONE 07/30 2110 DC PO 07/31 2111 Acetaminophen 650 MG Q6P PRN 07/19 1415 07/31 PO 0613 Acetaminophen/ 1 TAB BID PRN 07/22 0930 AC 07/23 Butalbital/Caffeine PO 0751 Albuterol Sulfate 3 ML Q4P PRN 07/19 1245 AC 07/27 INH 1603 Alprazolam 0.5 MG ONCE ONE 07/30 1200 DC 07/30 PO 07/30 1201 1205 Alprazolam 0.5 MG ONCE PRN 07/29 1845 AC 07/30 PO 08/05 184 2112 Aspirin 81 MG DAILY 07/19 1319 AC 07/30 PO 0857 Carvedilol 6.25 MG BID 07/21 2100 AC 07/30 PO 210 Clopidogrel Bisulfate 75 MG DAILY 07/19 1320 AC 07/30 PO 0857 Ferrous Gluconate 324 MG TID 07/23 09 AC 07/30 PO 2107 Furosemide 20 MG ONCE ONE 07/30 1914 DC 07/30 IV 07/31 1915 2105 Furosemide 40 MG DAILY 07/26 0943 AC 07/30 PO 0858 Gabapentin 100 MG Q8 07/18 2200 AC 07/31 PO 0550 Levothyroxine Sodium 0.025 MG DAILY AC 07/19 0700 AC 07/31 PO 0550 Lidocaine 2 ANA .STK-MED ONE 07/30 1535 DC TOP 07/30 1536 Lidocaine 50 ML .STK-MED ONE 07/30 1535 DC TOP 07/30 1536 Morphine Sulfate 2 MG Q4P PRN 07/26 1045 07/27 SC 1746 Nystatin 1 ANA TID PRN 07/30 1515 AC 07/30 TOP 2123 Omeprazole 40 MG BID 07/25 2100 AC 07/30 PO 2107 Patient Medication 1 ED ONE ONE 07/30 1230 DC Teaching ED 07/30 1231 Prednisone 10 MG DAILY 08/01 899 AC PO 08/03 0859 Prednisone 20 MG DAILY 07/30 899 AC 07/30 PO 08/01 858 0858 Prednisone 30 MG DAILY 07/28 899 DC 07/29 PO 07/30 858 0841 Sertraline HCl 25 MG QAM 07/19 0900 AC 07/30 PO 0858 Sodium Chloride 2 SPRAY Q4P PRN 07/24 1730 AC 07/26 NAOMIE 0931 Vital Signs & I&O Last 24 Hrs of Vitals and I&O: Vital Signs Date Time Temp Pulse Resp B/P B/P Pulse O2 O2 Flow FiO2 Mean Ox Delivery Rate 07/31 0653 97.8 70 18 132/60 97 Nasal 1.0L Cannula 07/31 0000 Nasal 1.0L Cannula 07/30 2300 98.5 66 20 122/52 97 Nasal 1.0L Cannula 07/30 2107 66 122/52 07/30 1600 Nasal 1.0L Cannula 07/30 1405 97.9 59 20 124/70 95 Nasal 1.0L Cannula 07/30 1331 96 Nasal 1.0L Cannula 07/30 0858 63 130/68 07/30 0800 94 Nasal 1.0L Cannula Intake & Output 07/31 0800 05 0000 07/30 1600 Intake Total 100 1200 Output Total 50 1225 Balance 50 -25 Intake, Oral 100 1200 Output, Stool 50 1225 Since saturation 1 L 97% exam for chest shows diminished breath sounds there are no wheezes or crackles cardiac exam shows regular S1 and S2 without murmurs Impression/Plan Impression/Plan Impression/Plan: 76-year-old woman with stable COPD Recommendations: Consider diuresis. Taper FiO2 his saturations allow. Taper prednisone. No further pulmonary suggestions please call for further input
[2017-07-31 07:53] LABS: ABSOLUTE BASOPHIL COUNT 0 /CUMM (0.0-0.2); ABSOLUTE EOSINOPHIL COUNT 0.1 /CUMM (0.0-0.7); ABSOLUTE GRANULOCYTE CT 5.6 /CUMM (1.4-6.5); ABSOLUTE LYMPH COUNT 0.9 /CUMM (1.2-3.4); ABSOLUTE MONOCYTE COUNT 0.5 /CUMM (0.10-0.60); BASOPHIL % 0.2 % (0.0-2.0); EOSINOPHIL % 1.5 % (0-5); GRANULOCYTE % 77.7 % (42.2-75.2); HEMATOCRIT 26.3 % (37-47); MEAN CORPUSCULAR HGB 29.7 PG (27.0-31.0); MEAN CORPUSCULAR HGB CONC 32.3 G/DL (33.0-37.0); MEAN PLATELET VOLUME 7.7 FL (7.4-10.4); PLATELET COUNT 288 /CUMM (130-400); RBC DISTRIBUTION WIDTH 17.1 % (11.5-14.5); RED BLOOD CELL CT 2.86 /CUMM (4.20-5.40); WHITE BLOOD CELL COUNT 7.2 /CUMM (4.8-10.8)
--- NOTE | 2017-07-31 08:52 | Patient Discharge Instructions ---
Discharge Instructions General Discharge Information You were seen/treated for: Blood Loss and Diverticulosis Special Instructions: Please follow up with your PCP within seven days. Please have your PCP do a medication reconcilliation. Please follow up with [facility] within seven days, we changed some of your medications while you were admitted. Please follow up with the GI service, we provided you with a referral, you might be considered for outpatient Pill Cam Study. Acute Coronary Syndrome Inclusion Criteria At DC or during hospital stay patient has or had the following: ACS DIAGNOSIS No Discharge Core Measures Meds if any: Prescribed or Continued at Discharge Meds if any: NOT Prescribed or Continued at Discharge Congestive Heart Failure Inclusion Criteria At DC or during hospital stay patient has or had the following: CHF DIAGNOSIS No Discharge Core Measures Meds if any: Prescribed or Continued at Discharge Meds if any: NOT Prescribed or Continued at Discharge Cerebrovascular accident Inclusion Criteria At DC or during hospital stay patient has or had the following: CVA/TIA Diagnosis No Discharge Core Measures Meds if any: Prescribed or Continued at Discharge Meds if any: NOT Prescribed or Continued at Discharge Venous thromboembolism Inclusion Criteria VTE Diagnosis No VTE Type NONE VTE Confirmed by (Test) NONE Discharge Core Measures - Per Current guidelines, there needs to be overlap - treatment for the first 5 days of Warfarin therapy. - If discharged on Warfarin prior to 5 days of - overlap therapy, the patient will need to be - assessed for post discharge needs including - *Post discharge parental anticoagulation - *Warfarin and/or parental anticoagulation education - *Follow up date to check INR post discharge At least 5 days overlap therapy as Inpatient No Meds if any: Prescribed or Continued at Discharge Note: Overlap Therapy is Warfarin and Anticoagulant Meds if any: NOT Prescribed or Continued at Discharge
--- NOTE | 2017-07-31 13:08 | PN- Cardiology ---
Subjective Subjective: No complaints. Objective Vital Signs and I&Os Vital Signs Date Time Temp Pulse Resp B/P B/P Pulse O2 O2 Flow FiO2 Mean Ox Delivery Rate 07/31 1221 95 Nasal 2.0L Cannula 07/31 0918 62 132/66 07/31 0653 97.8 70 18 132/60 97 Nasal 1.0L Cannula 07/31 0000 Nasal 1.0L Cannula 07/30 2300 98.5 66 20 122/52 97 Nasal 1.0L Cannula 07/30 2107 66 122/52 07/30 1600 Nasal 1.0L Cannula 07/30 1405 97.9 59 20 124/70 95 Nasal 1.0L Cannula 07/30 1331 96 Nasal 1.0L Cannula Intake & Output 07/31 1600 07/31 0800 07/31 0000 07/30 1600 07/30 0800 07/30 0000 Intake Total 789 880 5175 2500 220 Output Total 50 1225 1000 Balance 100 50 -25 1500 220 Intake, Oral 783 011 2475 2500 220 Number 1 Bowel Movements Output, Stool 50 1225 1000 Patient 170 lb Weight Weight Bed scale Measurement Method Physical Exam: Well-developed, overweight elderly female in no acute distress. Vital signs: See above. Neck: No JVD, no bruits. Lungs: Decreased breath sounds bilaterally. Heart: S1, S2 with grade 1/6 systolic murmur. No gallop or rub. Abdomen: Soft, nontender, positive bowel sounds. Extremities: 1+ bilateral lower extremity edema. Current Medications: Current Medications Sig/Rick Start time Last Medication Dose Route Stop Time Status Admin Acetaminophen 650 MG .STK-MED ONE 07/30 2110 DC PO 07/30 211 Acetaminophen 650 MG Q6P PRN 07/19 1415 AC 07/31 PO 0613 Acetaminophen/ 1 TAB BID PRN 07/22 0930 AC 07/23 Butalbital/Caffeine PO 0751 Albuterol Sulfate 3 ML Q4P PRN 07/19 1245 AC 07/27 INH 1603 Alprazolam 0.5 MG ONCE PRN 07/29 1845 AC 07/30 PO 08/05 184 211 Aspirin 81 MG DAILY 07/19 1319 AC 07/31 PO 0918 Carvedilol 6.25 MG BID 07/21 2100 AC 07/31 PO 09 Clopidogrel Bisulfate 75 MG DAILY 07/19 1320 AC 07/31 PO 0918 Ferrous Gluconate 324 MG TID 07/23 09 AC 07/31 PO 0919 Furosemide 20 MG ONCE ONE 07/30 1914 DC 07/30 IV 07/31 1915 210 Furosemide 40 MG DAILY 07/26 0943 AC 07/31 PO 0918 Gabapentin 100 MG Q8 07/18 2200 AC 07/31 PO 0550 Levothyroxine Sodium 0.025 MG DAILY AC 07/19 0700 AC 07/31 PO 0550 Lidocaine 2 ANA .STK-MED ONE 07/30 1535 DC TOP 07/30 1536 Lidocaine 50 ML .STK-MED ONE 07/30 1535 DC TOP 07/30 1536 Morphine Sulfate 2 MG Q4P PRN 07/26 1045 AC 07/27 SC 1746 Nystatin 1 ANA TID PRN 07/30 1515 07/30 TOP 2123 Omeprazole 40 MG BID 07/25 2100 AC 07/31 PO 0918 Prednisone 10 MG DAILY 08/01 899 AC PO 08/03 0859 Prednisone 20 MG DAILY 07/30 09 AC 07/31 PO 08/01 0859 0918 Sertraline HCl 25 MG QAM 07/19 09 AC 07/31 PO 0918 Sodium Chloride 2 SPRAY Q4P PRN 07/24 1730 AC 07/26 NAOMIE 0931 Results Last 48 Hrs of Labs/Mics: Laboratory Tests 07/31/1715: Anion Gap 6, Estimated GFR 36 L, BUN/Creatinine Ratio 31.4 H, CBC w Diff NO MAN DIFF REQ, RBC 2.86 L, MCV 92.0, MCH 29.7, MCHC 32.3 L, RDW 17.1 H, MPV 7.7, Gran % 77.7 H, Lymphocytes % 13.0 L, Monocytes % 7.6, Eosinophils % 1.5, Basophils % 0.2, Absolute Granulocytes 5.6, Absolute Lymphocytes 0.9 L, Absolute Monocytes 0.5, Absolute Eosinophils 0.1, Absolute Basophils 0 07/30/17 07: Anion Gap 5, Estimated GFR 34 L, BUN/Creatinine Ratio 30.7 H, PT 12.1, INR 1.11, CBC w Diff NO MAN DIFF REQ, RBC 3.21 L, MCV 91.4, MCH 29.6, MCHC 32.4 L, RDW 17.3 H, MPV 7.7, Gran % 77.4 H, Lymphocytes % 13.1 L, Monocytes % 7.6, Eosinophils % 1.9, Basophils % 0, Absolute Granulocytes 5.8, Absolute Lymphocytes 1.0 L, Absolute Monocytes 0.6, Absolute Eosinophils 0.1, Absolute Basophils 0 Assessment/Plan Assessment/Plan [id number] w/ hx of anxiety/depression, RA on steroid Rx, DVT previously on Eliquis, obesity, TACO, HTN, LVH, AR, diastolic dysfunction w/ acute on ch diastolic heart failure (HFpEF), colonic perforation following colonoscopy s/p Constance procedure September 2014 complicated by type II LA, MARVEL, bacteremia, etc. & chronic anemia w/ recent hospitalization for symptomatic anemia that improved w/ transfusion of PRBCs complicated by MARVEL on CKD, etc. who improved w/ standard measures, but w/ subsequent cardiac cath at [facility] that revealed a 70% LAD stenosis that was stented to 0% residual stenosis & ELSY-3 flow who was again admitted (07/07-07/11/2017) w/ worsening ch weakness, SOB, new bilat LE edema c/w HFpEF & a modest troponin I elevation 2/2 type II LA who improved w/ standard therapy, but who returned w/ evidence of GI bleeding on dual antiplatelet Rx for her recent coronary stent. She has a colostomy & underwent endoscopy/colonoscopy on 07/30/2017 w/o obvious source for bleeding discovered. The plan is for OP PillCam. Received additional 20 mg of IV furosemide last evening. Continue DVT prophylaxis. Continue telemetry? Not applicable (On 2 No.)
[2017-07-31 14:37] VITALS: BP 132/70
[2017-07-31 23:25] VITALS: BP 122/70
[2017-08-01 06:20] VITALS: BP 114/68
--- NOTE | 2017-08-01 08:19 | PN- Housestaff ---
See Addendum Subjective Follow-up For: Blood loss Diverticulosis Subjective: Ms Corona was seen and examined this morning. She is resting comfortably in bed. Denies any issues overnight. This morning she states that she feels depressed owing to the fact that she feels like she's been looking at 4 solorzano the past few days. Denies any fever, chills, nausea, vomiting. Has been tolerating by mouth intake well. Denies any changes to output in the ostomy bag. Review of Systems Constitutional: Reports: see HPI. Objective Last 24 Hrs of Vital Signs/I&O Vital Signs Date Time Temp Pulse Resp B/P B/P Pulse O2 O2 Flow FiO2 Mean Ox Delivery Rate 08/01 1055 94 Room Air Room Air 08/01 0909 65 130/68 08/01 0620 97.7 63 22 114/68 97 Nasal Cannula 08/01 0000 Nasal 1.0L Cannula 07/31 2325 98.1 79 20 122/70 96 Room Air 07/31 2135 79 122/70 07/31 1714 95 Nasal 1.0L Cannula 07/31 1600 Nasal 1.0L Cannula 07/31 1437 98.7 69 21 132/70 98 Room Air 07/31 1221 95 Nasal 2.0L Cannula Intake & Output 08/01 1600 08/01 0800 08/01 0000 Intake Total 100 100 Output Total Balance 100 100 Intake, Oral 100 100 Number 0 Bowel Movements Physical Exam General Appearance: Alert, Oriented X3, Cooperative Skin: No Rashes HEENT: Mucous Membr. moist/pink Cardiovascular: Regular Rate, Normal S1, Normal S2 Lungs: Clear to Auscultation Abdomen: Normal Bowel Sounds, Soft, No Tenderness, Ostomy Bag in Place Neurological: Normal Speech Vascular: Normal Pulses Current Medications: Current Medications Sig/Rick Start time Last Medication Dose Route Stop Time Status Admin Acetaminophen 650 MG .STK-MED ONE 07/31 2139 DC PO 07/31 2140 Acetaminophen 650 MG .STK-MED ONE 07/31 1435 DC PO 07/31 1436 Acetaminophen 650 MG Q6P PRN 07/19 1415 AC 08/01 PO 0532 Acetaminophen/ 1 TAB BID PRN 07/22 0930 AC 07/23 Butalbital/Caffeine PO 0751 Albuterol Sulfate 3 ML Q4P PRN 07/19 1245 AC 07/27 INH 1603 Alprazolam 0.5 MG ONCE PRN 07/29 1845 AC 08/01 PO 08/05 1844 0959 Aspirin 81 MG DAILY 07/19 1319 AC 08/01 PO 0908 Carvedilol 6.25 MG BID 07/21 2100 AC 08/01 PO 0909 Clopidogrel Bisulfate 75 MG DAILY 07/19 1320 AC 08/01 PO 0908 Ferrous Gluconate 324 MG TID 07/23 0900 AC 08/01 PO 0909 Furosemide 40 MG DAILY 07/26 0943 AC 08/01 PO 0908 Gabapentin 100 MG Q8 07/18 2200 AC 08/01 PO 0531 Levothyroxine Sodium 0.025 MG DAILY AC 07/19 0700 AC 08/01 PO 0531 Morphine Sulfate 2 MG Q4P PRN 07/26 1045 AC 07/27 SC 1746 Nystatin 1 ANA TID PRN 07/30 1515 AC 07/30 TOP 2123 Omeprazole 40 MG BID 07/25 2100 AC 08/01 PO 0908 Prednisone 10 MG DAILY 08/01 0900 AC 08/01 PO 08/03 0859 0908 Prednisone 20 MG DAILY 07/30 0900 DC 07/31 PO 08/01 0859 0918 Sertraline HCl 25 MG QAM 07/19 0900 AC 08/01 PO 0908 Sodium Chloride 2 SPRAY Q4P PRN 07/24 1730 AC 07/26 NAOMIE 0931 Last 24 Hrs of Lab/Rubin Results Last 24 Hrs of Labs/Mics: Laboratory Tests 08/01/17 0700: Anion Gap 4 L, Estimated GFR 36 L, BUN/Creatinine Ratio 30.0 H, CBC w Diff NO MAN DIFF REQ, RBC 2.93 L, MCV 92.4, MCH 29.5, MCHC 32.0 L, RDW 17.9 H, MPV 8.0, Gran % 75.0, Lymphocytes % 14.5 L, Monocytes % 8.5, Eosinophils % 1.8, Basophils % 0.2, Absolute Granulocytes 5.9, Absolute Lymphocytes 1.1 L, Absolute Monocytes 0.7 H, Absolute Eosinophils 0.1, Absolute Basophils 0 Assessment/Plan Assessment: 76-year-old female with a history of anxiety/depression, rheumatoid arthritis on chronic steroid therapy, previous deep venous thrombosis on chronic anticoagulation with Xarelto (Currently on hold), obesity, obstructive sleep apnea on CPAP, chronic anemia, hypertension, left ventricular hypertrophy with diastolic dysfunction, and aortic regurgiatation who presented to the ED on 07/18/2017 with 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 She had a complicated course in this stay with resp failure, renal failure, colitis, anemia, requiring transfusions as mentioned below. Patient is currently in the General Medical floor for the management of following issues: Respiratory: Acute hypoxic hypercarbic respiratory failure, 2/2 fluid overload, improving * Will continue TRC/nebs, O2 via NC @2L/min (titrating) * PO Prednisone tapering, will check if she needs steroids at baseline or not * PO lasix daily * May consider additional Inj Lasix, if hypoxic overnight in an effort to maintain negative fluid balance. * Andersey Stable for discharge once home/social situation has been addressed. Infectious Diseases: Colitis, IV abx Cipro/Flagyl D10, #Completed * Keep the head of the bed elevated for aspiration precaution * Received IV abx per GI for 10 days total * Monitor for any fever * Watch Rt santana for any signs of infection Cardiovascular: Type 2 PR, 2/2 CHF exacerbation, no ACS * Appreciate senior producer recommendation * Continue dual antiplatelet therapy * Continue to hold lisinopril * Continue PO Lasix * Patient's anticoagulation was discontinued in her last admission, so does NOT need to be restarted on Xarelto. Hematology: GI bleeding (ABLA, requiring blood transfusion), Stable H/H now * No anticoagulation * Daily H&H and transfuse for Hb<8 Metabolic: MARVEL on CKD, improving * Repeat BEP at am for creatinine and electrolytes Alimentary: * Colonoscopy showed no acute pathology and suggested diverticulosis. * Continue Diet. Will likely need outpatient Pill Cam Study. Neurological: * Headache, improving * Continue pain meds HOUSEKEEPING: Diet: Heart Healthy DVT/Prophylaxis: mechanical Cueto: DC'ed on 07/25/17 Code Status: Do Not Resucitate/Do Not Intubate Problem List: 1. Diverticulosis Pain Ratin Pain Location: No Pain Pain Goal: Remain pain free Pain Plan: Tylenol PRN Tomorrow's Labs & Rationales: No Labs needed - DC in AM
[2017-08-01 08:54] LABS: ABSOLUTE BASOPHIL COUNT 0 /CUMM (0.0-0.2); ABSOLUTE EOSINOPHIL COUNT 0.1 /CUMM (0.0-0.7); ABSOLUTE GRANULOCYTE CT 5.9 /CUMM (1.4-6.5); ABSOLUTE LYMPH COUNT 1.1 /CUMM (1.2-3.4); ABSOLUTE MONOCYTE COUNT 0.7 /CUMM (0.10-0.60); BASOPHIL % 0.2 % (0.0-2.0); EOSINOPHIL % 1.8 % (0-5); HEMATOCRIT 27.1 % (37-47); MEAN CORPUSCULAR HGB 29.5 PG (27.0-31.0); MEAN CORPUSCULAR VOLUME 92.4 FL (81.0-99.0); PLATELET COUNT 287 /CUMM (130-400); RBC DISTRIBUTION WIDTH 17.9 % (11.5-14.5); RED BLOOD CELL CT 2.93 /CUMM (4.20-5.40); WHITE BLOOD CELL COUNT 7.9 /CUMM (4.8-10.8)
[2017-08-01] MEDS ORDERED: CARVEDILOL6.25 M1 PO (13:20)
[2017-08-01] MEDS ORDERED: LASIX40 M1 PO (13:20)
[2017-08-01 14:23] VITALS: BP 130/68
--- NOTE | 2017-08-01 16:45 | PN- Cardiology ---
Subjective Subjective: No complaints, but admits to weakness. Objective Vital Signs and I&Os Vital Signs Date Time Temp Pulse Resp B/P B/P Pulse O2 O2 Flow FiO2 Mean Ox Delivery Rate 08/01 1642 98.8 08/01 1423 96.6 74 20 130/68 94 Room Air 08/01 1055 94 Room Air Room Air 08/01 0909 65 130/68 08/01 0800 Nasal 1.0L Cannula 08/01 0620 97.7 63 22 114/68 97 Nasal Cannula 08/01 0000 Nasal 1.0L Cannula 07/31 2325 98.1 79 20 122/70 96 Room Air 07/31 2135 79 122/70 07/31 1714 95 Nasal 1.0L Cannula Intake & Output 08/01 1600 08/01 0800 08/01 0000 07/31 1600 07/31 0800 07/31 0000 Intake Total 420 100 100 100 100 Output Total 50 Balance 420 100 100 100 50 Intake, Oral 420 100 100 100 100 Number 0 Bowel Movements Output, Stool 50 Physical Exam: Well-developed, overweight elderly female in no acute distress. Vital signs: See above. Neck: No JVD, no bruits. Lungs: Decreased breath sounds bilaterally. Heart: S1, S2 with grade 1/6 systolic murmur. No gallop or rub. Abdomen: Soft, nontender, positive bowel sounds. Extremities: 1+ bilateral lower extremity edema. Current Medications: Current Medications Sig/Rick Start time Last Medication Dose Route Stop Time Status Admin Acetaminophen 650 MG .STK-MED ONE 08/01 05 DC PO 08/01 0531 Acetaminophen 650 MG .STK-MED ONE 07/31 2138 DC PO 07/31 214 Acetaminophen 650 MG Q6P PRN 07/19 1415 AC 08/01 PO 0532 Acetaminophen/ 1 TAB BID PRN 07/22 0930 AC 07/23 Butalbital/Caffeine PO 0751 Albuterol Sulfate 3 ML Q4P PRN 07/19 1245 AC 07/27 INH 1603 Alprazolam 0.5 MG ONCE PRN 07/29 1845 AC 08/01 PO 08/05 184 0959 Aspirin 81 MG DAILY 07/19 1319 AC 08/01 PO 0908 Carvedilol 6.25 MG BID 07/21 2100 AC 08/01 PO 0909 Clopidogrel Bisulfate 75 MG DAILY 07/19 1320 AC 08/01 PO 0908 Ferrous Gluconate 324 MG TID 07/23 0900 AC 08/01 PO 1343 Furosemide 40 MG DAILY 07/26 0943 AC 08/01 PO 0908 Gabapentin 100 MG Q8 07/18 2200 AC 08/01 PO 1343 Levothyroxine Sodium 0.025 MG DAILY AC 07/19 0700 AC 08/01 PO 0531 Morphine Sulfate 2 MG Q4P PRN 07/26 1045 AC 07/27 SC 1746 Nystatin 1 ANA TID PRN 07/30 1515 AC 07/30 TOP 2123 Omeprazole 40 MG BID 07/25 2100 AC 08/01 PO 0908 Prednisone 10 MG DAILY 08/01 09 AC 08/01 PO 08/03 0859 0908 Prednisone 20 MG DAILY 07/30 0900 DC 07/31 PO 08/01 0859 0918 Sertraline HCl 25 MG QAM 07/19 09 AC 08/01 PO 0908 Sodium Chloride 2 SPRAY Q4P PRN 07/24 1730 AC 07/26 NAOMIE 0931 Results Last 48 Hrs of Labs/Mics: Laboratory Tests 08/01/17 0700: Anion Gap 4 L, Estimated GFR 36 L, BUN/Creatinine Ratio 30.0 H, CBC w Diff NO MAN DIFF REQ, RBC 2.93 L, MCV 92.4, MCH 29.5, MCHC 32.0 L, RDW 17.9 H, MPV 8.0, Gran % 75.0, Lymphocytes % 14.5 L, Monocytes % 8.5, Eosinophils % 1.8, Basophils % 0.2, Absolute Granulocytes 5.9, Absolute Lymphocytes 1.1 L, Absolute Monocytes 0.7 H, Absolute Eosinophils 0.1, Absolute Basophils 0 07/31/17 0615: Anion Gap 6, Estimated GFR 36 L, BUN/Creatinine Ratio 31.4 H, CBC w Diff NO MAN DIFF REQ, RBC 2.86 L, MCV 92.0, MCH 29.7, MCHC 32.3 L, RDW 17.1 H, MPV 7.7, Gran % 77.7 H, Lymphocytes % 13.0 L, Monocytes % 7.6, Eosinophils % 1.5, Basophils % 0.2, Absolute Granulocytes 5.6, Absolute Lymphocytes 0.9 L, Absolute Monocytes 0.5, Absolute Eosinophils 0.1, Absolute Basophils 0 Assessment/Plan Assessment/Plan [id number] w/ hx of anxiety/depression, RA on ch steroid Rx, DVT previously on Eliquis, obesity, TACO, HTN, LVH, AR, diastolic dysfunction w/ acute on ch diastolic heart failure (HFpEF), colonic perforation following colonoscopy s/p Constance procedure September 2014 complicated by type II [place], MARVEL, bacteremia, etc. & chronic anemia w/ recent hospitalization for symptomatic anemia that improved w/ transfusion of PRBCs complicated by MARVEL on CKD, etc. who improved w/ standard measures, but w/ subsequent cardiac cath at [facility] that revealed a 70% LAD stenosis that was stented to 0% residual stenosis & ELSY-3 flow who was again admitted (07/07-07/11/2017) w/ worsening ch weakness, SOB, new bilat LE edema c/w HFpEF & a modest troponin I elevation 2/2 type II [place] who improved w/ standard therapy, but who returned w/ evidence of GI bleeding on dual antiplatelet Rx for her recent coronary stent. She has a colostomy & underwent endoscopy/colonoscopy on 07/30/2017 w/o obvious source for bleeding discovered. The plan is for OP PillCam. Recommendations: * The plan is for discharge tomorrow morning, 08/02/2017. She will be maintained on furosemide 40 mg daily, lisinopril 10 mg daily, aspirin 81 mg daily, clopidogrel 75 mg daily, carvedilol 6.25 mg twice daily, Nitropatch 0.4 mg daily with a nitrate free interval. * Continue DVT prophylaxis until discharge. * We will follow up on an outpatient basis. * Would enroll her in the heart wellness clinic. Continue telemetry? Not applicable (On 2 No.)
[2017-08-01 21:54] VITALS: BP 106/80
[2017-08-02 06:20] VITALS: BP 108/70
[2017-08-02 10:11] VITALS: BP 110/76
[2017-08-02] MEDS ORDERED: NEXIUM40 M1 PO ×2 (10:22→10:25)
[2017-08-02] MEDS ORDERED: CARVEDILOL6.25 M1 PO (10:25)
[2017-08-02] MEDS ORDERED: LASIX40 M1 PO (10:25)
--- NOTE | 2017-08-02 10:26 | PN- Housestaff ---
Ata CURTIS,Sofi 08/02/17 1026: Subjective Follow-up For: Blood loss Diverticulosis Complaints: no complaints Subjective: Patient seen and examined at bedside. Overnight events. Denies shortness of breath, chest pain, nausea, vomiting. Review of Systems Constitutional: Reports: see HPI. Objective Last 24 Hrs of Vital Signs/I&O Vital Signs Date Time Temp Pulse Resp B/P B/P Pulse O2 O2 Flow FiO2 Mean Ox Delivery Rate 08/02 1011 63 110/76 08/02 0620 97.6 65 20 108/70 94 Room Air 08/01 2154 98.2 69 22 106/80 95 Room Air 08/01 2118 69 106/80 08/01 1642 98.8 08/01 1423 96.6 74 20 130/68 94 Room Air Intake & Output 08/02 1600 08/02 0800 08/02 0000 Intake Total 100 120 Output Total 50 Balance 50 120 Intake, IV 20 Intake, Oral 100 100 Number 0 Bowel Movements Output, Stool 50 Physical Exam General Appearance: Alert, Oriented X3, Cooperative, No Acute Distress Cardiovascular: Regular Rate, Normal S1, Normal S2, No Murmurs Lungs: Clear to Auscultation Abdomen: Soft, No Tenderness, No Hepatospenomegaly Neurological: Normal Speech, Strength at 5/5 X4 Ext, Normal Tone, Sensation Intact Extremities: No Cyanosis, No Edema, Normal Pulses Current Medications: Current Medications Sig/Rick Start time Last Medication Dose Route Stop Time Status Admin Acetaminophen 650 MG .STK-MED ONE 08/01 1700 DC PO 08/01 1701 Acetaminophen 650 MG Q6P PRN 07/19 1415 AC 08/02 PO 0632 Acetaminophen/ 1 TAB BID PRN 07/22 0930 AC 08/02 Butalbital/Caffeine PO 1022 Albuterol Sulfate 3 ML Q4P PRN 07/19 1245 AC 07/27 INH 1603 Alprazolam 0.5 MG ONCE PRN 07/29 1845 AC 08/01 PO 08/05 1844 0959 Aspirin 81 MG DAILY 07/19 1319 AC 08/02 PO 1011 Calcium Carbonate 500 MG DAILY 08/01 1857 AC 08/02 PO 1012 Carvedilol 6.25 MG BID 07/21 2100 AC 08/02 PO 1011 Clopidogrel Bisulfate 75 MG DAILY 07/19 1320 AC 08/02 PO 1011 Ferrous Gluconate 324 MG TID 07/23 0900 AC 08/02 PO 1012 Furosemide 40 MG DAILY 07/26 0943 AC 08/02 PO 1011 Gabapentin 100 MG Q8 07/18 2200 AC 08/02 PO 0538 Levothyroxine Sodium 0.025 MG DAILY AC 07/19 0700 AC 08/02 PO 0538 Morphine Sulfate 2 MG Q4P PRN 07/26 1045 DC 08/01 SC 2119 Nystatin 1 ANA TID PRN 07/30 1515 AC 07/30 TOP 2123 Omeprazole 40 MG BID 07/25 2100 AC 08/02 PO 1012 Prednisone 10 MG DAILY 08/01 0900 AC 08/02 PO 08/03 0859 1011 Sertraline HCl 25 MG QAM 07/19 09 AC 08/02 PO 1012 Sodium Chloride 2 SPRAY Q4P PRN 07/24 1730 AC 07/26 NAOMIE 0931 Assessment/Plan Assessment: 76-year-old female with a history of anxiety/depression, rheumatoid arthritis on chronic steroid therapy, previous deep venous thrombosis on chronic anticoagulation with Xarelto (Currently on hold), obesity, obstructive sleep apnea on CPAP, chronic anemia, hypertension, left ventricular hypertrophy with diastolic dysfunction, and aortic regurgiatation who presented to the ED on 07/18/2017 with complaints of jane blood in her colostomy bag FOR 1 d [employer]. She had a complicated course in this stay with resp failure, renal failure, colitis, anemia, requiring transfusions as mentioned below. Patient is currently in the General Medical floor for the management of following issues: Respiratory: Acute hypoxic hypercarbic respiratory failure, 2/2 fluid overload, improving * Will continue TRC/nebs, O2 via NC @2L/min (titrating) * PO Prednisone tapering, will check if she needs steroids at baseline or not * PO lasix daily * May consider additional Inj Lasix, if hypoxic overnight in an effort to maintain negative fluid balance. * Aaron Stable for discharge once home/social situation has been addressed. Infectious Diseases: Colitis, IV abx Cipro/Flagyl D10, #Completed * Keep the head of the bed elevated for aspiration precaution * Received IV abx per GI for 10 days total * Monitor for any fever * Watch Rt santana for any signs of infection Cardiovascular: Type 2 PR, 2/2 CHF exacerbation, no ACS * Appreciate physical therapist recommendation * Continue dual antiplatelet therapy * Continue to hold lisinopril * Continue PO Lasix * Patient's anticoagulation was discontinued in her last admission, so does NOT need to be restarted on Xarelto. Hematology: GI bleeding (ABLA, requiring blood transfusion), Stable H/H now * No anticoagulation * Daily H&H and transfuse for Hb<8 Metabolic: MARVEL on CKD, improving * Repeat BEP at am for creatinine and electrolytes Alimentary: * Colonoscopy showed no acute pathology and suggested diverticulosis. * Continue Diet. Will likely need outpatient Pill Cam Study. Neurological: * Headache, improving * Continue pain meds HOUSEKEEPING: Diet: Heart Healthy DNR/DNI Plan-patient will be going home today on Lasix 40, lisinopril 10, aspirin 81, Plavix 75, carvedilol 6.25, Nitropatch 0.4 mg daily with the nitrate free interval, Nexium. Problem List: 1. Diverticulosis 2. GI bleed Pain Ratin Pain Location: none Pain Goal: Remain pain free Pain Plan: tylenol Tomorrow's Labs & Rationales: cbc,bep Hunter CURTIS,Shelley 08/02/17 1235: Attending MD Review Statement Attending Statement Attending MD Statement: examined this patient, discuss w/resident/PA/DIRECTOR IMAGING, agreed w/resident/PA/DIRECTOR IMAGING, reviewed EMR data (avail), discussed with nursing, reviewed images, amended to note Attending Assessment/Plan: Patient seen and examined, denies any complaints. Overall doing much better. H &H remained stable. Vital signs are stable. Endoscopy and colonoscopy were negative for any active bleed but patient needs outpatient PillCam. Per cardiology, she will be maintained on antiplatelet agents. She is also on PPI here which would be continued as an outpatient. Patient followed GI as an outpatient as well as cardiology and primary care doctor. Medically she is stable for discharge home with home services.
--- NOTE | 2017-08-02 10:50 | PN- Cardiology ---
Subjective Subjective: The patient is awake, alert The events of the last 24 hours were reviewed. Review of Systems: The review of systems is negative for chest pains, palpitations nor lightheadedness. The remainder of the 14 point review of systems is noncontributory with the exception of above. Objective Vital Signs and I&Os Vital Signs Date Time Temp Pulse Resp B/P B/P Pulse O2 O2 Flow FiO2 Mean Ox Delivery Rate 08/02 1011 63 110/76 08/02 0620 97.6 65 20 108/70 94 Room Air 08/01 2154 98.2 69 22 106/80 95 Room Air 08/01 2118 69 106/80 08/01 1642 98.8 08/01 1423 96.6 74 20 130/68 94 Room Air 08/01 1055 94 Room Air Room Air Intake & Output 08/02 1600 08/02 0800 08/02 0000 08/01 1600 08/01 0800 08/01 0000 Intake Total 100 120 420 100 100 Output Total 50 Balance 50 120 420 100 100 Intake, IV 20 Intake, Oral 100 100 420 100 100 Number 0 0 Bowel Movements Output, Stool 50 Physical Exam: General: Nontoxic, no apparent distress. HEENT: Sclera and conjunctiva within normal limits, without xanthelasmas. Neck: Carotids 2+ without bruits. Respiratory: Scattered rhonchi, air movement is good, without accessory respiratory muscle use. Heart: Regular rate and rhythm, without murmurs, without JVD. Abdomen: Soft, nontender, no masses, normoactive bowel sounds. Extremities: Without clubbing, cyanosis, approximately 1 mm of pitting edema in both lower extremities Neuro: Nonfocal exam, strength, 5 out of 5 Skin: Within normal limits without lesions. Psych: Mood and affect: Normal Current Medications: Current Medications Sig/Rick Start time Last Medication Dose Route Stop Time Status Admin Acetaminophen 650 MG .STK-MED ONE 08/01 1700 DC PO 08/01 1701 Acetaminophen 650 MG Q6P PRN 07/19 1415 AC 08/02 PO 0632 Acetaminophen/ 1 TAB BID PRN 07/22 0930 AC 08/02 Butalbital/Caffeine PO 1022 Albuterol Sulfate 3 ML Q4P PRN 07/19 1245 AC 07/27 INH 1603 Alprazolam 0.5 MG ONCE PRN 07/29 1845 AC 08/01 PO 08/05 184 0959 Aspirin 81 MG DAILY 07/19 1319 AC 08/02 PO 1011 Calcium Carbonate 500 MG DAILY 08/01 1857 AC 08/02 PO 1012 Carvedilol 6.25 MG BID 07/21 2100 AC 08/02 PO 1011 Clopidogrel Bisulfate 75 MG DAILY 07/19 1320 AC 08/02 PO 1011 Ferrous Gluconate 324 MG TID 07/23 0900 AC 08/02 PO 1012 Furosemide 40 MG DAILY 07/26 0943 AC 08/02 PO 1011 Gabapentin 100 MG Q8 07/18 2200 AC 08/02 PO 0538 Levothyroxine Sodium 0.025 MG DAILY AC 07/19 0700 AC 08/02 PO 0538 Morphine Sulfate 2 MG Q4P PRN 07/26 1045 DC 08/01 SC 2119 Nystatin 1 ANA TID PRN 07/30 1515 AC 07/30 TOP 2123 Omeprazole 40 MG BID 07/25 2100 AC 08/02 PO 1012 Prednisone 10 MG DAILY 08/01 0900 AC 08/02 PO 08/03 0859 1011 Sertraline HCl 25 MG QAM 07/19 0900 AC 08/02 PO 1012 Sodium Chloride 2 SPRAY Q4P PRN 07/24 1730 AC 07/26 NAOMIE 0931 Results Last 48 Hrs of Labs/Mics: Laboratory Tests 08/01/17 0700: Anion Gap 4 L, Estimated GFR 36 L, BUN/Creatinine Ratio 30.0 H, CBC w Diff NO MAN DIFF REQ, RBC 2.93 L, MCV 92.4, MCH 29.5, MCHC 32.0 L, RDW 17.9 H, MPV 8.0, Gran % 75.0, Lymphocytes % 14.5 L, Monocytes % 8.5, Eosinophils % 1.8, Basophils % 0.2, Absolute Granulocytes 5.9, Absolute Lymphocytes 1.1 L, Absolute Monocytes 0.7 H, Absolute Eosinophils 0.1, Absolute Basophils 0 Assessment/Plan Assessment/Plan 76-[id number]-w-f w/ hx of anxiety/depression, RA on steroid Rx, DVT previously on Eliquis, obesity, TACO, HTN, LVH, AR, diastolic dysfunction w/ acute on diastolic heart failure (HFpEF), colonic perforation following colonoscopy s/p Constance procedure September 2014 complicated by type II [place], MARVEL, bacteremia, etc. & chronic anemia w/ recent hospitalization for symptomatic anemia that improved w/ transfusion of PRBCs complicated by MARVEL on CKD, etc. who improved w/ standard measures, but w/ subsequent cardiac cath at [facility] that revealed a 70% LAD stenosis that was stented to 0% residual stenosis & ELSY-3 flow who was again admitted (07/07-07/11/2017) w/ worsening ch weakness, SOB, new bilat LE edema c/w HFpEF & a modest troponin I elevation 2/2 type II [place] who improved w/ standard therapy, but who returned w/ evidence of GI bleeding on dual antiplatelet Rx for her recent coronary stent. She has a colostomy & underwent endoscopy/colonoscopy on 07/30/2017 w/o obvious source for bleeding discovered. The plan is for OP PillCam. Recommendations: * The plan is for discharge today. She will be maintained on furosemide 40 mg daily, lisinopril 10 mg daily, aspirin 81 mg daily, clopidogrel 75 mg daily, carvedilol 6.25 mg twice daily, Nitropatch 0.4 mg daily with a nitrate free interval. Continue telemetry? No
== END 2017-08-02 12:17 | disposition home health service (06) | DRG 377 ==
LOC: ERH 10:17 → ERHI 11:46 → ERH 11:46 → CRI 12:35 → ERHI 12:35 → CRI 12:35 → EDBEDREQ 12:36 → ENRESERV 12:41 → ENTRNSPT 13:02 → EDTRNSPT 13:13 → EDTRNSPTSTS 13:13 → CRI 13:27 → 2NB 13:28 → CMPTRNSPT 13:36 → 2NB 17:05 → 1NO 07-19 03:07 → CRI 07-19 10:02 → 1NO 07-27 20:58 → CRI 07-27 20:59 → ENTRNSPT 07-27 21:04 → EDTRNSPT 07-27 21:07 → EDTRNSPTSTS 07-27 21:07 → CMPTRNSPT 07-27 21:36 → 1NO 07-27 22:23 → ENTRNSPT 07-29 21:28 → EDTRNSPT 07-29 21:47 → EDTRNSPTSTS 07-29 21:47 → 2NA 07-29 21:57 → CMPTRNSPT 07-29 22:04 → 2NA 07-30 07:22 → ENPENDDIS 08-02 10:30 → ENTRNSPT 08-02 11:58 → CMPTRNSPT 08-02 11:59 → 2NA 08-02 12:17
PROVIDERS: Emergency Medicine; Hospitalist; Internal Medicine; Internal Medicine Endocrinology, Diabetes & Metabolism; Internal Medicine Hematology & Oncology; Student in an Organized Health Care Education/Training Program
PROC: 30233K1 Transfusion of Nonautologous Frozen Plasma into Peripheral Vein, Percutaneous Approach (ICD-10-PCS; 2017-07-18)
PROC: 5A09557 Assistance with Respiratory Ventilation, Greater than 96 Consecutive Hours, Continuous Positive Airway Pressure (ICD-10-PCS; 2017-07-19)
PROC: 30233N1 Transfusion of Nonautologous Red Blood Cells into Peripheral Vein, Percutaneous Approach (ICD-10-PCS; 2017-07-19)
PROC: 0DJ08ZZ Inspection of Upper Intestinal Tract, Via Natural or Artificial Opening Endoscopic (ICD-10-PCS; principal; 2017-07-30)
PROC: 0DJD8ZZ Inspection of Lower Intestinal Tract, Via Natural or Artificial Opening Endoscopic (ICD-10-PCS; 2017-07-30)
DX: K57.31 Diverticulosis of large intestine without perforation or abscess with bleeding (principal); J96.21 Acute and chronic respiratory failure with hypoxia; I21.A1 Myocardial infarction type 2; N18.4 Chronic kidney disease, stage 4 (severe); D68.9 Coagulation defect, unspecified; J96.22 Acute and chronic respiratory failure with hypercapnia; N17.9 Acute kidney failure, unspecified; I13.0 Hypertensive heart and chronic kidney disease with heart failure and stage 1 through stage 4 chronic kidney disease, or unspecified chronic kidney disease; I50.32 Chronic diastolic (congestive) heart failure; I35.1 Nonrheumatic aortic (valve) insufficiency; D62 Acute posthemorrhagic anemia; J44.9 Chronic obstructive pulmonary disease, unspecified; M06.9 Rheumatoid arthritis, unspecified; E78.5 Hyperlipidemia, unspecified; F32.9 Major depressive disorder, single episode, unspecified; G47.33 Obstructive sleep apnea (adult) (pediatric); Z79.01 Long term (current) use of anticoagulants; I25.2 Old myocardial infarction; F41.9 Anxiety disorder, unspecified; E55.9 Vitamin D deficiency, unspecified; K44.9 Diaphragmatic hernia without obstruction or gangrene; Z90.710 Acquired absence of both cervix and uterus; E03.9 Hypothyroidism, unspecified; I25.10 Atherosclerotic heart disease of native coronary artery without angina pectoris; Z87.891 Personal history of nicotine dependence; E66.9 Obesity, unspecified; Z68.34 Body mass index [BMI] 34.0-34.9, adult; Z66 Do not resuscitate; G43.909 Migraine, unspecified, not intractable, without status migrainosus; Z86.718 Personal history of other venous thrombosis and embolism; Z91.018 Allergy to other foods; Z88.5 Allergy status to narcotic agent; Z88.0 Allergy status to penicillin; Z88.1 Allergy status to other antibiotic agents; Z90.49 Acquired absence of other specified parts of digestive tract
CPT/HCPCS: 1NSP; 2NASP; CCU; 36415; 36592; 71045; 76881; 82436; 86920; 87070; 87086; 93005; 93010; 93306; 93970; 96372; 96374; 97110-GO; 97161-GP; 97530-GO; 99291; C9132; J0131; J0744; J1644; J1940; J2270; J2405; J2920; J3490; J7060; J7512; P9016

== ENCOUNTER 2017-08-05 22:30 | Inpatient (IN) | payer OTHER, MEDICARE ==
[~2017-08-05] VITALS: Ht 142.2 cm; Wt 64.2 kg
[~2017-08-05 22:30] MED LIST changes: +CARVEDILOL6.25 M1 PO; +LASIX40 M1 PO; +NEXIUM40 M1 PO
--- NOTE | 2017-08-05 22:36 | ED DYSPNEA/ASTHMA COMPLAINT ---
History of Present Illness General Chief Complaint: Dyspnea (COPD, CHF, Other) Stated Complaint: BIBA FOR SOB Source: patient, family, old records, EMS Exam Limitations: no limitations Vital Signs & Intake/Output Vital Signs & Intake/Output Vital Signs Date Time Temp Pulse Resp B/P B/P Pulse O2 O2 Flow FiO2 Mean Ox Delivery Rate 08/06 0129 98.0 78 24 166/67 97 Nasal 2.0L Cannula 08/05 2333 98.6 80 24 154/67 93 Nasal 2.0L Cannula 08/05 2304 97 Nasal 2.0L Cannula 08/05 2255 96 Room Air 2.0L 08/05 2237 98.7 86 30 200/95 100 Non 100% ReBreather ED Intake and Output 08/06 0000 08/05 1200 Intake Total 0 Output Total Balance 0 Intake, Oral 0 Patient 130 lb Weight Weight Estimated Measurement Method Allergies Coded Allergies: Penicillins (SWELLING, RASH, ITCH 07/18/17) cephalexin (From KEFLEX) (ITCHY 07/18/17) chocolate flavor (HEADACHE/MIGRAINE 07/18/17) codeine (ITCH 07/18/17) levofloxacin (From LEVAQUIN) (RASH 07/18/17) oxaprozin (From DAYPRO) (RASH 07/18/17) propoxyphene (UNKNOWN REACTION TO DARVOCET 07/18/17) Reconcile Medications Aspirin (Aspirin*) 81 MG TAB.CHEW 1 TAB PO DAILY Heart health Butalb/Acetaminophen/Caffeine (Lwpqvt-Ubbzqbeh-Ocxy 50-325-40) 50 MG-325 MG-40 MG TABLET 1 TAB PO BID PRN migrain (Reported) Calcium Carbonate/Vitamin D3 (Os-Mehdi 500+D3 Caplet) 500 MG-200 TABLET 1 TAB PO DAILY SUPPLEMENT (Reported) Carvedilol 6.25 MG TABLET 6.25 MG PO BID Heart Health . Clopidogrel Bisulfate (Plavix) 75 MG TABLET 1 TAB PO DAILY HEART HEALTH ( Reported) Cyclobenzaprine HCl 5 MG TABLET 1 TAB PO TIDPRN PRN muscle spasms (Reported) Docusate Sodium 100 MG CAPSULE 1 CAP PO DAILY constipation (Reported) Ergocalciferol (Vitamin D2) (Vitamin D2) 50,000 UNIT CAPSULE 1 CAP PO QWED SUPPLEMENT (Reported) Esomeprazole (Nexium) 40 MG CAPSULE.DR 1 CAP PO DAILY gastritis .. Fenofibrate,Micronized (Fenofibrate) 200 MG CAPSULE 1 CAP PO DAILY TG ( Reported) Ferrous Gluconate (Unknown Strength) TABLET (Unknown Dose) PO DAILY SUPPLEMENT (Reported) Furosemide (Lasix) 40 MG TABLET 40 MG PO DAILY Fluid Overload . Gabapentin 100 MG CAPSULE 1 CAP PO Q8 Neuropathy Levothyroxine Sodium 25 MCG TABLET 1 TAB PO DAILY AC THYROID (Reported) Lisinopril 10 MG TABLET 1 TAB PO QAM BP (Reported) Metoclopramide HCl (Reglan) 10 MG TABLET 1 TAB PO TID for nausea (Reported) 30 minutes before meals and bedtime Nitroglycerin (Nitroglycerin Patch) 0.4 MG/HOUR PATCH.TD24 1 PATCH TOP DAILY Heart health Potassium Chloride (Klor-Con 10) (Unknown Strength) TABLET.ER (Unknown Dose) PO DAILY SUPPLEMENT (Reported) Prednisone 10 MG TABLET 1 TAB PO QAM STEROID (Reported) Sennosides/Docusate Sodium (Senna Plus Tablet) 8.6 MG-50 MG TABLET 1 TAB PO DAILY NEEDED PRN CONSTIPATION . Sertraline HCl 25 MG TABLET 1 TAB PO QAM MENTAL HEALTH (Reported) Tramadol HCl 50 MG TABLET 1 TAB PO Q6 PRN PAIN SCALE 7-10 (SEVERE) Triage Nurses Notes Reviewed? yes HPI: Patient was discharged 2 days ago after prolonged hospitalization including a GI bleed and an elevated troponin. This evening patient began to feel short of breath. She denied any chest pain. Positive dyspnea exertion. Upon EMS arrival her room air saturation was 80% with a good plethora. She was placed on oxygen and brought in for evaluation. Patient states that her legs are much more swollen than they were when she is here. Positive anorexia. No nausea or vomiting. No fevers or chills. Past History Travel History Traveled to [place] past 21 day No Medical History Any Pertinent Medical History? see below for history Neurological: migraine EENT: cataracts Cardiovascular: CHF, hypertension, hyperlipidemia Respiratory: pneumonia Gastrointestinal: diverticulitis, HEMORRHOIDS Hepatic: NONE Renal: 3+PROTEIN IN URINE [id number] Musculoskeletal: rheumatoid arthritis Psychiatric: anxiety, depression, insomnia Endocrine: vitamin D deficiency Blood Disorders: anemia Cancer(s): NONE PODIATRIST/Reproductive: NONE History of MRSA: No History of VRE: No History of CDIFF: No Influenza Vaccine: 01/20/17 Surgical History Surgical History: colon resection, hysterectomy, laminectomy Psychosocial History Who do you live with Patient/[facility] 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 No Review of Systems Review of Systems Constitutional: Reports: no symptoms. EENTM: Reports: no symptoms. Respiratory: Reports: see HPI, short of breath. Cardiovascular: Reports: no symptoms. GI: Reports: no symptoms. Genitourinary: Reports: no symptoms. Musculoskeletal: Reports: see HPI. Skin: Reports: no symptoms. Neurological/Psychological: Reports: no symptoms. Hematologic/Endocrine: Reports: no symptoms. Immunologic/Allergic: Reports: no symptoms. All Other Systems: Reviewed and Negative Physical Exam Physical Exam General Appearance: well developed/nourished, alert, awake, moderate distress Head: atraumatic, normal appearance Eyes: Bilateral: PERRL, EOMI. Ears, Nose, Throat: normal pharynx, normal ENT inspection, hearing grossly normal Neck: normal inspection, supple, JVD Respiratory: crackles Cardiovascular: regular rate/rhythm, normal peripheral pulses Gastrointestinal: normal bowel sounds, soft, non-tender Extremities: pedal edema Neurologic/Psych: no motor/sensory deficits, awake, alert, oriented x 3, normal mood/affect Skin: intact, normal color, warm/dry Lymphatic: no anterior cervical selin Core Measures ACS in differential dx? Yes CVA/TIA Diagnosis No Sepsis Present: No Sepsis Focused Exam Completed? No Progress Differential Diagnosis: AMI, bronchitis, CHF, COPD, pulmonary embolism, pneumonia, pneumothorax Plan of Care: Orders Procedure Date/time Status Heart Healthy Diet 08/06 B Active ED Holding Orders 08/06 210 Active Admit to inpatient 08/06 210 Active Vital Signs 08/06 210 Active Code Status 08/06 210 Active Cueto, Insertion/Removal/Asses 08/06 199 Active CULTURE,URINE 08/06 199 Active ARTERIAL BLOOD GAS (GEN) 08/06 2235 Active Telemetry/Di[employer]ader 08/06 2235 Active URINALYSIS 08/06 2235 Active TROPONIN LEVEL 08/06 2235 Complete COMPREHENSIVE METABOLIC PANEL 08/06 2235 Complete CBC WITHOUT DIFFERENTIAL 08/06 2235 Complete B-TYPE NATRIURETIC PEP (BNP) 08/06 2235 Complete EKG 08/06 2235 Active Laboratory Tests 08/06/17 0005: Anion Gap 7, Estimated GFR 40 L, BUN/Creatinine Ratio 26.2 H, Glucose 90, Calcium 9.3, Total Bilirubin 0.3, AST 22, ALT 20, Alkaline Phosphatase 76, Troponin I 1.31 *H, Gzn-O-Oymvejzehcc Pept 02485 H, Total Protein 4.8 L, Albumin 2.2 L, Globulin 2.6, Albumin/Globulin Ratio 0.8 L, CBC w Diff MAN DIFF ORDERED, RBC 3.30 L, MCV 90.6, MCH 30.2, MCHC 33.3, RDW 16.3 H, MPV 8.0, Gran % 84.8 H, Lymphocytes % 7.6 L, Monocytes % 6.3, Eosinophils % 0.8, Basophils % 0.5, Absolute Granulocytes 13.7 H, Segmented Neutrophils 87 H, Absolute Lymphocytes 1.2, Lymphocytes 8 L, Monocytes 2, Absolute Monocytes 1.0 H, Eosinophils 2, Absolute Eosinophils 0.1, Basophils 1, Absolute Basophils 0.1, Platelet Estimate ADEQUATE, Polychromasia 1+, Poikilocytosis 2+, Basophilic Stippling SLIGHT, Ovalocytes 1+, Stomatocytes 1+, Fld Total RBCs Counted 100 08/05/172234: pH 7.36, pCO2 44, pO2 221 H, HCO3 24, ABG O2 Sat (Measured) 99.0, Carboxyhemoglobin 0.3 L, O2 Concentration % 100%, O2 Delivery Method NRB, Phlebotomy Draw Site RIGHT RADIAL Microbiology 08/06 020 URINE ROUT: Urine Culture - ORD Diagnostic Imaging: Viewed by Me: Radiology Read. Discussed w/RAD: Radiology Read. CXR Impression: PATIENT: RYAN CHRISTENSEN PRESENT AGE: 76 PATIENT ACCOUNT NO: [id number] : 39 LOCATION: [facility] ORDERING PHYSICIAN: Devonte Topete MD SERVICE DATE: 08/05/17 EXAM TYPE: RAD - XRY- PORTABLE CHEST XRAY EXAMINATION: XR PORTABLE CHEST CLINICAL INFORMATION: Shortness of breath. Fluid overload. COMPARISON: None TECHNIQUE: Portable frontal view of the chest was obtained. FINDINGS: Lung volumes are low. Prominent perihilar interstitial markings with central vascular prominence. Small pleural effusions. No pneumothorax. The cardiomediastinal silhouette is unchanged. IMPRESSION: Small pleural effusions. Increased central vascular prominence with perihilar interstitial prominence suggesting mild interstitial edema. DICTATED BY: Andrea Mondragon MD DATE/TIME DICTATED:08/05/172299 ORACLE SOA ARCHITECT:TED DATE/TIME TRANSCRIBED:08/05/172299 CONFIDENTIAL, DO NOT COPY WITHOUT APPROPRIATE AUTHORIZATION. <Electronically signed in Other Vendor System> SIGNED BY: Andrea Mondragon MD 08/05/172302 Initial ED EKG: NSR, LVH, nonspecific ST T wave chg Prior EKG: unchanged Rhythm Strip: normal sinus rhythm Comments: D/W DR. TOMLINSON, PT IS STABLE FOR TELE AND HE WILL CONSULT IN THE MORNING. Departure Departure Disposition: STILL A PATIENT Condition: Stable Clinical Impression Primary Impression: ACS (acute coronary syndrome) Secondary Impressions: Fluid overload, Leukocytosis Referrals: Corrina Fortune MD (PCP/Family) Departure Forms: Customer Survey General Discharge Information Admission Note Spoke With: Kodak Marques MD Documentation of Exam: Documentation of any treatments & extenuating circumstances including Concerns Regarding Discharge (functional status, medication knowledge or non-compliance, living conditions, etc.) that warrant an admission rather than observation: [ TELEMONITORING, SERIAL ENZYMES, CARDIOLOGY EVALUATION, ID CONSULTATION] Critical Care Note Critical Care Note Critical Care Time: non-applicable
--- NOTE | 2017-08-05 23:03 | RADIOLOGY REPORT ---
EXAMINATION: XR PORTABLE CHEST CLINICAL INFORMATION: Shortness of breath. Fluid overload. COMPARISON: None TECHNIQUE: Portable frontal view of the chest was obtained. FINDINGS: Lung volumes are low. Prominent perihilar interstitial markings with central vascular prominence. Small pleural effusions. No pneumothorax. The cardiomediastinal silhouette is unchanged. IMPRESSION: Small pleural effusions. Increased central vascular prominence with perihilar interstitial prominence suggesting mild interstitial edema.
[2017-08-06 00:19] LABS: ABSOLUTE BASOPHIL COUNT 0.1 /CUMM (0.0-0.2); ABSOLUTE EOSINOPHIL COUNT 0.1 /CUMM (0.0-0.7); ABSOLUTE GRANULOCYTE CT 13.7 /CUMM (1.4-6.5); ABSOLUTE LYMPH COUNT 1.2 /CUMM (1.2-3.4); BASOPHIL % 0.5 % (0.0-2.0); EOSINOPHIL % 0.8 % (0-5); GRANULOCYTE % 84.8 % (42.2-75.2); HEMATOCRIT 29.9 % (37-47); MEAN CORPUSCULAR HGB 30.2 PG (27.0-31.0); MEAN CORPUSCULAR HGB CONC 33.3 G/DL (33.0-37.0); MEAN CORPUSCULAR VOLUME 90.6 FL (81.0-99.0); PLATELET COUNT 283 /CUMM (130-400); RBC DISTRIBUTION WIDTH 16.3 % (11.5-14.5)
[2017-08-06 00:29] LABS: WHITE BLOOD CELL COUNT 16.2 /CUMM (4.8-10.8)
--- NOTE | 2017-08-06 02:44 | History & Physical ---
Jermaine CURTIS,Paulette 08/06/17 0243: General Information and HPI MD Statement: I have seen and personally examined RYAN CHRISTENSEN and documented this H&P. The patient is a 76 year old F who presented with a patient stated chief complaint of [SOB]. Source of Information: patient, old records Exam Limitations: no limitations History of Present Illness: 76F PMH HTN, HFpEF, history of DVT on Xarelto, history of chronic anemia, TACO on CPAP, anxiety, CKD stage 4, HFpEF/Diastolic CHF, depression, rheumatoid arthritis, history of colonic perforation s/p colostomy was recently discharged from [facility] on 08-02-17 after being treated for acute hypoxic hypercarbic respiratory failure due to fluid overload most likely secondary to CHF exacerbation and colitis which she received a course of IV antibiotics. Who presents to the ED complaining of shortness of breath for many days. Patient mentioned that she gets exertional SOB when she moves from chair to commode. She also complains of orthopnea for which she will try to adjust the recliner she used to sleep on. She denies paroxysmal nocturnal dyspnea. Patient also endorses mild cough with scant expectoration (knot in the throat as per the patient words), patient also complains of increasing bilateral lower and upper extremity swelling which she noticed since she was last discharged. Patient reports being compliant with her home meds including Lasix (her son help her with her meds) and she also denies any increased salt in her diet. Patient also complains of mid abdominal colicky pain which is intermittent and increase after eating. Patient mentioned that she is trying to avoid food because it aggravated her pain. She also complains of nausea but no vomiting. She denies any changes to the color or the consistency of the stool in the colostomy bag. She denies any fever, chest pain, focal weakness or numbness Patient lives home and he was walker to ambulate however she mentioned that she was not able to walk because she feels weak. Allergies/Medications Allergies: Coded Allergies: Penicillins (SWELLING, RASH, ITCH 07/18/17) cephalexin (From KEFLEX) (ITCHY 07/18/17) chocolate flavor (HEADACHE/MIGRAINE 07/18/17) codeine (ITCH 07/18/17) levofloxacin (From LEVAQUIN) (RASH 07/18/17) oxaprozin (From DAYPRO) (RASH 07/18/17) propoxyphene (UNKNOWN REACTION TO DARVOCET 07/18/17) Home Med list Aspirin (Aspirin*) 81 MG TAB.CHEW 1 TAB PO DAILY Heart health Butalb/Acetaminophen/Caffeine (Bnhtut-Hqxspehg-Uzdp 50-325-40) 50 MG-325 MG-40 MG TABLET 1 TAB PO BID PRN migrain (Reported) Calcium Carbonate/Vitamin D3 (Os-Mehdi 500+D3 Caplet) 500 MG-200 TABLET 1 TAB PO DAILY SUPPLEMENT (Reported) Carvedilol 6.25 MG TABLET 6.25 MG PO BID Heart Health . Clopidogrel Bisulfate (Plavix) 75 MG TABLET 1 TAB PO DAILY HEART HEALTH ( Reported) Cyclobenzaprine HCl 5 MG TABLET 1 TAB PO TIDPRN PRN muscle spasms (Reported) Docusate Sodium 100 MG CAPSULE 1 CAP PO DAILY constipation (Reported) Ergocalciferol (Vitamin D2) (Vitamin D2) 50,000 UNIT CAPSULE 1 CAP PO QWED SUPPLEMENT (Reported) Esomeprazole (Nexium) 40 MG CAPSULE.DR 1 CAP PO DAILY gastritis .. Fenofibrate,Micronized (Fenofibrate) 200 MG CAPSULE 1 CAP PO DAILY TG ( Reported) Ferrous Gluconate (Unknown Strength) TABLET (Unknown Dose) PO DAILY SUPPLEMENT (Reported) Furosemide (Lasix) 40 MG TABLET 40 MG PO DAILY Fluid Overload . Gabapentin 100 MG CAPSULE 1 CAP PO Q8 Neuropathy Levothyroxine Sodium 25 MCG TABLET 1 TAB PO DAILY AC THYROID (Reported) Lisinopril 10 MG TABLET 1 TAB PO QAM BP (Reported) Metoclopramide HCl (Reglan) 10 MG TABLET 1 TAB PO TID for nausea (Reported) 30 minutes before meals and bedtime Nitroglycerin (Nitroglycerin Patch) 0.4 MG/HOUR PATCH.TD24 1 PATCH TOP DAILY Heart health Potassium Chloride (Klor-Con 10) (Unknown Strength) TABLET.ER (Unknown Dose) PO DAILY SUPPLEMENT (Reported) Prednisone 10 MG TABLET 1 TAB PO QAM STEROID (Reported) Sennosides/Docusate Sodium (Senna Plus Tablet) 8.6 MG-50 MG TABLET 1 TAB PO DAILY NEEDED PRN CONSTIPATION . 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 REGISTER REPAIRER/Reproductive: NONE History of MRSA: No History of VRE: No History of CDIFF: No Influenza Vaccine: 01/20/17 Surgical History Surgical History: colon resection, hysterectomy, laminectomy Past Family/Social History Family History Relations & Conditions if any FATHER MOTHER BROTHER Relation not specified for: *No pertinent family history FH: heart attack FH: heart attack FH: heart attack Psychosocial History Services at Home: [employer] Primary Language: Brazilian ETOH Use: denies use Illicit Drug Use: denies illicit drug use Functional Ability Ambulation: walker IADLs Needs Assist: shopping, housework, food prep. Review of Systems Review of Systems Constitutional: Reports: chills, diaphoresis, malaise, weakness. Cardiovascular: Reports: edema, orthopena, peripheral edema. Denies: chest pain, palpitations. Respiratory: Reports: cough, orthopnea, short of breath, sputum production. GI: Reports: abdominal pain, nausea. Genitourinary: Denies: no symptoms. Musculoskeletal: Denies: no symptoms. Skin: Denies: no symptoms. Neurological/Psychological: Denies: no symptoms. Exam & Diagnostic Data Last 24 Hrs of Vital Signs/I&O Vital Signs Date Time Temp Pulse Resp B/P B/P Pulse O2 O2 Flow FiO2 Mean Ox Delivery Rate 08/06 0345 98.5 75 24 160/70 97 Nasal 2.0L Cannula 08/06 0129 98.0 78 24 166/67 97 Nasal 2.0L Cannula 08/05 2333 98.6 80 24 154/67 93 Nasal 2.0L Cannula 08/05 2304 97 Nasal 2.0L Cannula 08/05 2255 96 Room Air 2.0L 08/057 98.7 86 30 200/95 100 Non 100% ReBreather Intake & Output 08/06 0800 / 0000 08/05 1600 Intake Total 0 Output Total 100 Balance -100 0 Intake, Oral 0 Output, Urine 100 Patient 130 lb Weight Weight Estimated Measurement Method Physical Exam General Appearance Alert, Oriented X3, Cooperative, No Acute Distress HEENT Atraumatic, PERRLA, EOMI, Mucous Membr. moist/pink Neck Supple, No JVD Cardiovascular Normal S1, Normal S2 Lungs bibasilar crackles Abdomen Normal Bowel Sounds, Soft, colostomy bag in place, no surrounding inflamtion Neurological Normal Speech, Strength at 5/5 X4 Ext, Normal Tone Extremities 2 + pitting edemqa in both LE 4 + pitting edema in both UE Vascular Normal Pulses Last 24 Hrs of Labs/Rubin: Laboratory Tests 08/06/17 0210: Urinalysis MANY H, Urine Color YEL, Urine Clarity CLDY H, Urine pH 6.5, Ur Specific [place] 1.020, Urine Protein 100 H, Urine Ketones NEG, Urine Nitrite NEG, Urine Bilirubin NEG, Urine Urobilinogen 0.2, Ur Leukocyte Esterase TRACE H , Ur Microscopic SEDIMENT EXAMINED, Urine RBC 15-25 H, Urine WBC 5-10 H, Ur Epithelial Cells FEW, Urine Bacteria MOD H, Urine Mucus RARE, Urine Hemoglobin MOD H, Urine Glucose NEG 08/06/17 0005: Anion Gap 7, Estimated GFR 40 L, BUN/Creatinine Ratio 26.2 H, Glucose 90, Calcium 9.3, Total Bilirubin 0.3, AST 22, ALT 20, Alkaline Phosphatase 76, Troponin I 1.31 *H, Odp-N-Vgmurgoqapj Pept 80257 H, Total Protein 4.8 L, Albumin 2.2 L, Globulin 2.6, Albumin/Globulin Ratio 0.8 L, CBC w Diff MAN DIFF ORDERED, RBC 3.30 L, MCV 90.6, MCH 30.2, MCHC 33.3, RDW 16.3 H, MPV 8.0, Gran % 84.8 H, Lymphocytes % 7.6 L, Monocytes % 6.3, Eosinophils % 0.8, Basophils % 0.5, Absolute Granulocytes 13.7 H, Segmented Neutrophils 87 H, Absolute Lymphocytes 1.2, Lymphocytes 8 L, Monocytes 2, Absolute Monocytes 1.0 H, Eosinophils 2, Absolute Eosinophils 0.1, Basophils 1, Absolute Basophils 0.1, Platelet Estimate ADEQUATE, Polychromasia 1+, Poikilocytosis 2+, Basophilic Stippling SLIGHT, Ovalocytes 1+, Stomatocytes 1+, Fld Total RBCs Counted 100 05/15/18 2235: pH 7.36, pCO2 44, pO2 221 H, HCO3 24, ABG O2 Sat (Measured) 99.0, Carboxyhemoglobin 0.3 L, O2 Concentration % 100%, O2 Delivery Method NRB, Phlebotomy Draw Site RIGHT RADIAL Microbiology 08/06 0210 URINE ROUT: Urine Culture - RECD Diagnostic Data EKG Results Normal sinus rhythm, 93, IL 179, QTC 438 CXR Results Chest x-ray: Small pleural effusions. Increased central vascular prominence with perihilar interstitial prominence suggesting mild interstitial edema. Assessment/Plan Assessment: 76F PMH HTN, HFpEF, history of DVT on Xarelto, history of chronic anemia, TACO on CPAP, anxiety, CKD stage 4, HFpEF/Diastolic CHF, depression, rheumatoid arthritis, history of colonic perforation s/p colostomy was recently discharged from [facility] on 08-02-17 after being treated for acute hypoxic hypercarbic respiratory failure due to fluid overload most likely secondary to CHF exacerbation and colitis which she received a course of IV antibiotics. Who presents to the ED complaining of shortness of breath for many days. Which was associated with increasing swelling of both lower extremity and upper extremity. Most likely her symptoms are due to CHF exacerbation. Vital signs on admission: Blood pressure 200/95, pulse 86, temperature 98.7, respiratory rate 30, pulse ox 100 on nonrebreather 100% Labs on admission: CBCT was significant for leukocytosis with WBC 16.2, hemoglobin 10, hematocrit 29.9, BMP showed sodium 137, potassium 4.5, BUN 34, creatinine 1.3, troponin I 0.31, BNP 50 4200, urinalysis was positive for WBC 5 10, RBCs 1525 Her last echo was on 07/20/17 and showed LVH with EF 65, stage III diastolic heart failure, mild MR, AR, TR, IL and a dilated vena cava Chest x-ray: Small pleural effusions. Increased central vascular prominence with perihilar interstitial prominence suggesting mild interstitial edema. Problem list: CHF exacerbation Bilateral upper extremity swelling Elevated troponin (no EKG changes most likely demand ischemia) CKD stage IV History of DVT (Xarelto on hold due to GI bleed in the past Chronic anemia Recent Type II SD s/p cardiac cath and stent placement (? type of stent placed) on aspirin/plavix In the ED the patient received 1 dose of Lasix 40 mg, Atrovent, and Provental history of rheumatoid arthritis, hypothyroidism, Leukocytosis (likely secondary to chronic steroid use) Plan: Admit to telemetry Continuous telemetry monitoring Vitals every shift Strict intake and output Serial troponin EKG to rule out ACS Lasix 40 mg IV daily Continue home meds including aspirin, Plavix, lisinopril, carvedilol Cardiology consult appreciated(patient sees Dr. Zavala) Avoid nephrotoxic medications Doppler ultrasound on upper extremity to rule out DVT Pain controlled with morphine sulfate IV 2 mg every 4 as needed Continue prednisone tab 10 mg p.o. every morning PT eval Continue home meds Heart healthy diet DVT prophylaxis with subcutaneous heparin DNR/DNI As Ranked By This Provider Problem List: 1. Leukocytosis 2. Fluid overload 3. CHF (congestive heart failure) Core Measures/Misc (12/08) Acute Coronary Syndrome ACS Diagnosis: No Congestive Heart Failure Congestive Heart Failure Diagnosis Yes Last Known EF % 65 Cerebrovascular Accident CVA/TIA Diagnosis: No VTE (View Protocol) VTE Risk Factors Age>40 No Mechanical VTE Prophylaxis d/t N/A MechProphylax Ordered No VTE Pharm Prophylaxis d/t NA PharmProphylax ordered Sepsis (View protocol) Sepsis Present: No Ba Mora MD 08/06/17 0552: Resident Review Statement Resident Statement: examined this patient, discussed with international trade analyst, agreed with international trade analyst, reviewed EMR data (avail), discussed with nursing, discussed with case mgmt, reviewed images, amended to note Other Findings: 76 yo F with pmh of HTN, HFpEF, history of DVT on Xarelto, history of chronic anemia, TACO on CPAP, anxiety, CKD stage 4, HFpEF/Diastolic CHF, depression, rheumatoid arthritis, history of colonic perforation s/p colostomy with a very recent admission at [facility] for GI bleeding/diverticulosis, colitis, CHF Exacerbation, type 2 SD, MARVEL on CKD (07/20/17-08/02/17), was brought in by ambulance for worsening shortness of breath on minimal exertion. According to the patient, since her admission, continued to have worsening shortness of breath on minimal exertion, would only transfer from the bed to commode (her baseline before prior admission was walking with a rolling walker). This was associated with her leg swelling, which was also worsening since her discharge. She admits to orthopnea but no PND. She mentioned that she was compliant with her medication including Lasix, did not take any extra salt, canned food, salty food. She also denied any chest pain, chest pressure/ heaviness, cough. She also mentioned of some central abdominal pain, which has been chronic, associated with some nausea but no vomiting. The pain is colicky in nature, intermittant, and is aggravated by food-- leading to anorexia. She clearly denied any bleeding in the colostomy bag, change in color of the stool, fever/ chills. Vitals, labs, and imaging as noted above. EKG: no new changes. She is currently admitted in the ICU as a telemetry floor hold for the management of following issues: # Acute exacerbation of diastolic congestive heart failure/ HFpEF Patient's clinical presentation with dyspnea, crackles/wheezing, bilateral edema , with interstitial edema in the CXR, and good clinical response to IV Lasix are all suggestive of CHF exacerbation. Because of CHF exacerbation at this point is not very clear, likely related to medication dosage. * Admitted in telemetry * Monitor vitals regularly * IV Lasix 40 mg daily for now * Cardiology consultation * Trend troponins and EKG to rule out ACS * Continue cardiac medication * PT eval for safe discharge disposition, gait impairment #Elevated troponin, most likely type II SD, secondary to CHF exacerbation * We'll trend troponins and EKG until it slopes down to rule out ACS # B/l upper upper extremity swelling * Rule out DVT of bilateral upper extremity with USG Doppler #We are continuing the rest of her home medications. #Housekeeping: Diet: Heart healthy DVT ppx: SQ Heparin Code status: DNR/DNI Jerald CURTIS, [facility] 08/06/17 0626: Attending MD Review Statement Attending Statement Attending MD Statement: examined this patient, discuss w/resident/PA/MARKETING PROJECT COORDINATOR, agreed w/resident/PA/MARKETING PROJECT COORDINATOR, reviewed images, amended to note Attending Assessment/Plan: 76 yo F with h/o HTN, HFpEF, CAD s/p LAD stent, RA on chronic prednisone, DVT previously on eliquis, TACO on CPAP, aortic regurgitation, CKD, anxiety, depression, colonic perforation s/p colostomy, has had multiple admissions over the past 2 months for CHF, colitis requiring abx and anemia wherein workup with EGD/ colonoscopy was negative with a plan for outpatient [facility], discharged on August 02, returns today for worsening dyspnea with minimal exertion (moving from commode to chair) and b/l upper and lower extremity edema. She has not been ambulating since recent admission, needs assistance. She reports compliance with her medications. She denies chest pain, palpitations, lightheadedness. She has chronic mid abdominal pain since her colostomy surgery, and reports taking dilaudid for the pain. She has noticed burgandy colored stools intermittently but no change in stool caliber. Vitals: Tmax 99, HR 70-80's, BP 160/70, tachypneic on ER arrival, sats 88% RA -- > 100% NRB --> 95% on 2L. Exam: AAO, in mild respiratory distress, PERRL, MMM, mild JVD+, Chest bibasilar crackles, scattered wheeze+, Heart S1S2 regular, systolic murmur+, Abd soft, nontender, colostoly left abdomen+, LE: b/l 2+ pitting edema, Bilateral upper extremity with diffuse edema, pulses felt+. Labs: WBC 16.2, H/H 10/29.9, Plt 283, BUN 34, creat 1.3 (baseline), LFTs normal, trop 1.31, proBNP 01109, albumin 2.2. AB.36/44/221/24. UA cloudy, proteinuria, trace LE, RBC 15-25, WBC 5-10, moderate bacteria. CXR: small pleural effusions, increased central vascular prominence with perihilar interstitial prominence suggesting mild interstitial edema. EKG: sinus rhythm, LVH, Qtc 438. Echo (2018): EF > 65%, stage 3 diastolic dysfunction, mild MR, mild AR. Assessment and plan: 1. Acute hypoxic respiratory failure multifactorial 2/2 CHF, TACO and need to rule out PE 2. Acute on chronic exacerbation of HFpEF 3. Elevated troponin likely NSTEMI vs. Type 2 SD 4. History of CAD s/p recent stent 5. Bilateral upper extremity edema, rule out DVT 7. Leukocytosis on steroids 8. CKD stage 3 stable 9. Chronic anemia stable - Admit to Telemetry - Strict I/O's, daily weights - IV lasix 40 daily - Monitor renal functions and electrolytes - TSH was normal 2 weeks ago - No need to repeat Echo - Cardio consult (Dr. Zavala) - Continue aspirin, plavix, coreg, fenofibrate and nitropatch - Obtain bilateral upper extremity ultrasound - LE dopplers 2 weeks ago were negative for DVT - Consider CTA or VQ scan to rule out a PE - Obtain PT eval - Nocturnal CPAP - Resume prednisone - Pain management DVT ppx Hep SC. DNR/I.
--- NOTE | 2017-08-06 04:40 | Admission Certification ---
Admission Certification Certification Statement - As attending physician, I certify that at the time of - admission, based on clinical presentation, severity of - symptoms, need for further diagnostic testing and - therapeutic interventions, and risk of adverse outcomes - without in-hospital treatment, in my clinical assessment, - this patient requires an acute hospital stay for a minimum - of two nights or longer. I have also considered psychsocial - factors such as support system, advanced age, financial - issues, cognitive issues, and failed out-patient treatments, - past re-admission history, safety of patient, and lack of - compliance as applicable. Specific rationale supporting this admission is: Acute on chronic congestive heart failure, elevated troponin likely NSTEMI vs. Type 2 AL.
[2017-08-06 06:35] VITALS: BP 150/80
[2017-08-06 07:45] VITALS: BP 160/80
--- NOTE | 2017-08-06 10:47 | Cons- Cardiology ---
General Information and HPI Consulting Request Date of Consult: 08/06/17 Requested By: Jerald CURTIS,[employer] Reason for Consult: Shortness of breath, lower extremity edema, positive troponin I, etc. Source of Information: patient, old records Exam Limitations: poor historian History of Present Illness: Mrs. Rama Corona is a 76-year-old white female with a history of anxiety/ depression, rheumatoid arthritis on chronic steroid therapy, hypothyroidism, DVT for which she was previously on Eliquis, obesity, obstructive sleep apnea, hypertension, left ventricular hypertrophy, aortic regurgitation, diastolic dysfunction w/ acute on diastolic heart failure (HFpEF), colonic perforation following colonoscopy s/p Constance procedure September 2014 complicated by type II [place] , MARVEL, bacteremia, etc. & chronic anemia w/ recent hospitalization for symptomatic anemia that improved w/ transfusion of PRBCs complicated by MARVEL on CKD, etc. who improved w/ standard measures, but w/ subsequent cardiac cath at [facility] (07/02/2017) that revealed a 70% LAD stenosis that was stented to 0% residual stenosis & ELSY-3 flow who was again admitted (07/07-07/11/2017) w/ worsening weakness, SOB, new bilat LE edema c/w HFpEF & a modest troponin I elevation 2/2 type II [place] who improved w/ standard therapy, but who was again admitted (07/20-08/02/2017) w/ evidence of GI bleeding on dual antiplatelet Rx for her recent coronary stent. She has a colostomy & underwent endoscopy/ colonoscopy on 07/30/2017 w/o obvious source for bleeding discovered in the plan was for OP PillCam, however she returned to the ED again on 08/05/2017 with shortness of breath, orthopnea, edema, and a modest troponin elevation. Also admits to intermittent abdominal discomfort and nausea without vomiting. She denies any chest discomfort, palpitations, paroxysmal nocturnal dyspnea, fever, chills, etc. Allergies/Medications Allergies: Coded Allergies: Penicillins (SWELLING, RASH, ITCH 07/18/17) cephalexin (From KEFLEX) (ITCHY 07/18/17) chocolate flavor (HEADACHE/MIGRAINE 07/18/17) codeine (ITCH 07/18/17) levofloxacin (From LEVAQUIN) (RASH 07/18/17) oxaprozin (From DAYPRO) (RASH 07/18/17) propoxyphene (UNKNOWN REACTION TO DARVOCET 07/18/17) Home Med List: Aspirin (Aspirin*) 81 MG TAB.CHEW 1 TAB PO DAILY Heart health Butalb/Acetaminophen/Caffeine (Eohqgo-Hvniuozf-Mmsj 50-325-40) 50 MG-325 MG-40 MG TABLET 1 TAB PO BID PRN migrain (Reported) Calcium Carbonate/Vitamin D3 (Os-Mehdi 500+D3 Caplet) 500 MG-200 TABLET 1 TAB PO DAILY SUPPLEMENT (Reported) Carvedilol 6.25 MG TABLET 6.25 MG PO BID Heart Health . Clopidogrel Bisulfate (Plavix) 75 MG TABLET 1 TAB PO DAILY HEART HEALTH ( Reported) Cyclobenzaprine HCl 5 MG TABLET 1 TAB PO TIDPRN PRN muscle spasms (Reported) Docusate Sodium 100 MG CAPSULE 1 CAP PO DAILY constipation (Reported) Ergocalciferol (Vitamin D2) (Vitamin D2) 50,000 UNIT CAPSULE 1 CAP PO QWED SUPPLEMENT (Reported) Esomeprazole (Nexium) 40 MG CAPSULE.DR 1 CAP PO DAILY gastritis .. Fenofibrate,Micronized (Fenofibrate) 200 MG CAPSULE 1 CAP PO DAILY TG ( Reported) Ferrous Gluconate (Unknown Strength) TABLET (Unknown Dose) PO DAILY SUPPLEMENT (Reported) Furosemide (Lasix) 40 MG TABLET 40 MG PO DAILY Fluid Overload . Gabapentin 100 MG CAPSULE 1 CAP PO Q8 Neuropathy Levothyroxine Sodium 25 MCG TABLET 1 TAB PO DAILY AC THYROID (Reported) Lisinopril 10 MG TABLET 1 TAB PO QAM BP (Reported) Metoclopramide HCl (Reglan) 10 MG TABLET 1 TAB PO TID for nausea (Reported) 30 minutes before meals and bedtime Nitroglycerin (Nitroglycerin Patch) 0.4 MG/HOUR PATCH.TD24 1 PATCH TOP DAILY Heart health Potassium Chloride (Klor-Con 10) (Unknown Strength) TABLET.ER (Unknown Dose) PO DAILY SUPPLEMENT (Reported) Prednisone 10 MG TABLET 1 TAB PO QAM STEROID (Reported) Sennosides/Docusate Sodium (Senna Plus Tablet) 8.6 MG-50 MG TABLET 1 TAB PO DAILY NEEDED PRN CONSTIPATION . 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 Home Services at Home: [facility] Primary Language: Danish Smoking Status: Former Smoker ETOH Use: denies use Illicit Drug Use: denies illicit drug use Functional Ability Ambulation: walker IADLs Needs Assist: shopping, housework, food prep. Exam & Diagnostic Data Vital Signs and I&O Vital Signs Date Time Temp Pulse Resp B/P B/P Pulse O2 O2 Flow FiO2 Mean Ox Delivery Rate 08/06 1140 Nasal 3.0L Cannula 08/06 0936 84 160/80 08/06 0935 84 160/80 08/06 0800 96 Nasal 3.0L Cannula 08/06 0745 98.5 82 22 160/80 96 Nasal 3.0L Cannula 08/06 0638 96 Nasal 3.0L Cannula 08/06 0635 99.0 90 22 150/80 97 Nasal 3.0L Cannula 08/06 0628 97 Nasal 3.0L Cannula 08/06 0504 99.0 80 24 170/73 95 Nasal 2.0L Cannula 08/06 0345 98.5 75 24 160/70 97 Nasal 2.0L Cannula 08/06 0129 98.0 78 24 166/67 97 Nasal 2.0L Cannula 08/05 2333 98.6 80 24 154/67 93 Nasal 2.0L Cannula 08/05 2304 97 Nasal 2.0L Cannula 08/05 2255 96 Room Air 2.0L 08/05 2237 98.7 86 30 200/95 100 Non 100% ReBreather Intake & Output 08/06 1600 16 0800 /16 0000 / 1600 08/05 0800 08/05 0000 Intake Total 0 Output Total 300 Balance -300 0 Intake, Oral 0 Output, Urine 300 Patient 155 lb 158 lb 130 lb Weight Weight Bed scale Bed scale Estimated Measurement Method Physical Exam: Well-developed, obese elderly female no acute distress with nasal oxygen in place. Vital signs: See above. HEENT: Normocephalic, atraumatic, EOMI, moist mucous membranes. Neck: No JVD, no bruits. Lungs: Few bibasilar crackles. Heart: S1, S2 with soft (grade 1/6) systolic murmur. No gallop or rub. PMI not well felt. Abdomen: Soft, nontender, positive bowel sounds. Extremities: 1+ edema. Labs/Rubin Results: Laboratory Tests 08/06 08/06 1250 0620 Chemistry Sodium (137 - 145 mmol/L) 136 L Potassium (3.5 - 5.1 mmol/L) 4.5 Chloride (98 - 107 mmol/L) 105 Carbon Dioxide (22 - 30 mmol/L) 23 Anion Gap (5 - 16) 9 BUN (7 - 17 mg/dL) 34 H Creatinine (0.5 - 1.0 mg/dL) 1.2 H Estimated GFR (>60 ml/min) 44 L BUN/Creatinine Ratio (7 - 25 %) 28.3 H Troponin I (< 0.11 ng/ml) 1.52 *H 1.35 *H Hematology CBC w Diff MAN DIFF ORDERED WBC (4.8 - 10.8 /CUMM) 14.9 H RBC (4.20 - 5.40 /CUMM) 2.90 L Hgb (12.0 - 16.0 G/DL) 8.7 L Hct (37 - 47 %) 26.4 L MCV (81.0 - 99.0 FL) 91.0 MCH (27.0 - 31.0 PG) 30.1 MCHC (33.0 - 37.0 G/DL) 33.1 RDW (11.5 - 14.5 %) 16.6 H Plt Count (130 - 400 /CUMM) 282 MPV (7.4 - 10.4 FL) 8.1 Gran % (42.2 - 75.2 %) 90.5 H Lymphocytes % (20.5 - 51.1 %) 4.2 L Monocytes % (1.7 - 9.3 %) 4.0 Eosinophils % (0 - 5 %) 1.2 Basophils % (0.0 - 2.0 %) 0.1 Absolute Granulocytes (1.4 - 6.5 /CUMM) 13.5 H Segmented Neutrophils (42.2 - 75.2 %) Pending Absolute Lymphocytes (1.2 - 3.4 /CUMM) 0.6 L Absolute Monocytes (0.10 - 0.60 /CUMM) 0.6 Absolute Eosinophils (0.0 - 0.7 /CUMM) 0.2 Absolute Basophils (0.0 - 0.2 /CUMM) 0 08/06 08/06 0210 0005 Chemistry Sodium (137 - 145 mmol/L) 137 Potassium (3.5 - 5.1 mmol/L) 4.5 Chloride (98 - 107 mmol/L) 104 Carbon Dioxide (22 - 30 mmol/L) 27 Anion Gap (5 - 16) 7 BUN (7 - 17 mg/dL) 34 H Creatinine (0.5 - 1.0 mg/dL) 1.3 H Estimated GFR (>60 ml/min) 40 L BUN/Creatinine Ratio (7 - 25 %) 26.2 H Glucose (65 - 99 mg/dL) 90 Calcium (8.4 - 10.2 mg/dL) 9.3 Total Bilirubin (0.2 - 1.3 mg/dL) 0.3 AST (14 - 36 U/L) 22 ALT (9 - 52 U/L) 20 Alkaline Phosphatase (<127 U/L) 76 Troponin I (< 0.11 ng/ml) 1.31 *H Jgy-H-Hcsdvwsceie Pept (<125 pg/mL) 04029 H Total Protein (6.3 - 8.2 g/dL) 4.8 L Albumin (3.5 - 5.0 g/dL) 2.2 L Globulin (1.9 - 4.2 gm/dL) 2.6 Albumin/Globulin Ratio (1.1 - 2.2 %) 0.8 L Hematology CBC w Diff MAN DIFF ORDERED WBC (4.8 - 10.8 /CUMM) 16.2 H RBC (4.20 - 5.40 /CUMM) 3.30 L Hgb (12.0 - 16.0 G/DL) 10.0 L Hct (37 - 47 %) 29.9 L MCV (81.0 - 99.0 FL) 90.6 MCH (27.0 - 31.0 PG) 30.2 MCHC (33.0 - 37.0 G/DL) 33.3 RDW (11.5 - 14.5 %) 16.3 H Plt Count (130 - 400 /CUMM) 283 MPV (7.4 - 10.4 FL) 8.0 Gran % (42.2 - 75.2 %) 84.8 H Lymphocytes % (20.5 - 51.1 %) 7.6 L Monocytes % (1.7 - 9.3 %) 6.3 Eosinophils % (0 - 5 %) 0.8 Basophils % (0.0 - 2.0 %) 0.5 Absolute Granulocytes (1.4 - 6.5 /CUMM) 13.7 H Segmented Neutrophils (42.2 - 75.2 %) 87 H Absolute Lymphocytes (1.2 - 3.4 /CUMM) 1.2 Lymphocytes (20.5 - 51.1 %) 8 L Monocytes (1.7 - 9.3 %) 2 Absolute Monocytes (0.10 - 0.60 /CUMM) 1.0 H Eosinophils (0 - 5.0 %) 2 Absolute Eosinophils (0.0 - 0.7 /CUMM) 0.1 Basophils (0.0 - 2.0 %) 1 Absolute Basophils (0.0 - 0.2 /CUMM) 0.1 Platelet Estimate (ADEQUATE) ADEQUATE Polychromasia 1+ Poikilocytosis 2+ Basophilic Stippling SLIGHT Ovalocytes 1+ Stomatocytes 1+ Other Body Source Fld Total RBCs Counted (%) 100 Urines Urinalysis MANY H Urine Color (YEL,AMB,STR) YEL Urine Clarity (CLEAR) CLDY H Urine pH (5.0 - 8.0) 6.5 Ur Specific [place] (1.001 - 1.035) 1.020 Urine Protein (NEG,<30 MG/DL) 100 H Urine Ketones (NEG) NEG Urine Nitrite (NEG) NEG Urine Bilirubin (NEG) NEG Urine Urobilinogen (0.1 - 1.0 EU/dl) 0.2 Ur Leukocyte Esterase (NEG) TRACE H Ur Microscopic SEDIMENT EXAMINED Urine RBC (0 - 5 /HPF) 15-25 H Urine WBC (0 - 2 /HPF) 5-10 H Ur Epithelial Cells (NONE,FEW) FEW Urine Bacteria (NEG/NONE) MOD H Urine Mucus (FEW,NONE) RARE Urine Hemoglobin (NEG) MOD H Urine Glucose (N MG/DL) NEG 08/055 Blood Gas pH (7.35 - 7.45 PH) 7.36 pCO2 (35 - 45 TORR) 44 pO2 (80 - 100 TORR) 221 H HCO3 (21 - 28 MEQ/L) 24 ABG O2 Sat (Measured) (>96.0 %) 99.0 Carboxyhemoglobin (1.5 - 5.0 %) 0.3 L O2 Concentration % 100% O2 Delivery Method NRB Miscellaneous Phlebotomy Draw Site RIGHT RADIAL Diagnostic Data EKG Results 08/06/2017: Sinus rhythm and nonspecific high lateral minor ST segment depression. CXR Results 08/05/2017: Small pleural effusions. Increased central vascular prominence with perihilar interstitial prominence suggesting mild interstitial edema. Other Results Bilateral upper extremity ultrasound 08/06/2017: No evidence of upper extremity deep vein thrombosis in either upper extremity. There is superficial thrombophlebitis present in the left cephalic vein with partially occlusive thrombus. Assessment/Plan Assessment/Plan [id number] w/ hx of anxiety/depression, RA on steroid Rx, hypothyroidism, DVT w/ previous Eliquis Rx, obesity, TACO, HTN, LVH, AR, diastolic dysfunction w/ acute on diastolic heart failure (HFpEF), colonic perforation following colonoscopy s/p Constance procedure September 2014 complicated by type II [place], MARVEL, bacteremia, etc. & chronic anemia w/ recent hospitalization for symptomatic anemia that improved w/ transfusion of PRBCs complicated by MARVEL on CKD, etc. who improved w/ standard measures, but w/ subsequent cardiac cath at [facility] (07/02/2017) that revealed a 70% LAD stenosis that was stented to 0% residual stenosis & ELSY-3 flow who was again admitted (07/07-07/11/2017) w/ worsening ch weakness, SOB, new bilat LE edema c/w HFpEF & a modest troponin I elevation 2/2 type II [place] who improved w/ standard therapy, but who was again admitted (07/20- 08/02/2017) w/ evidence of GI bleeding on dual antiplatelet Rx for her recent coronary stent. She has a colostomy & underwent endoscopy/colonoscopy on 2017 w/o obvious source for bleeding discovered in the plan was for OP PillCam, however she returned to the ED again on 08/05/2017 w/ SOB, orthopnea, edema, and a modest troponin elevation. Suspect the troponin I elevations on the basis of a type II [place] and not an acute coronary syndrome. Recommendations: * Admission, follow-up troponins, repeat ECGs. * IV furosemide 40 mg daily, strict inputs/outputs, and daily weights. * Reassess need for further IV diuresis in the a.m. * CXR in AM. * Continue her other cardiac medications for now. * DVT prophylaxis. Consult Acknowledgment - Thank you for your consult request.
--- NOTE | 2017-08-06 13:00 | ULTRASOUND REPORT ---
EXAMINATION: US RIGHT AND LEFT UPPER EXTREMITY VENOUS CLINICAL INFORMATION: Bilateral arm pain and swelling COMPARISON: None. TECHNIQUE: Doppler spectral analysis and color flow Doppler imaging was performed of the right and left upper extremity. Compression and augmentation maneuvers were performed. FINDINGS: Right: The right internal jugular vein, subclavian vein, axillary vein, brachial vein, basilic vein, cephalic vein, and visualized forearm veins were well identified and normal. They demonstrate normal compressibility and color fill-in. Left: The left internal jugular vein, subclavian vein, axillary vein, brachial vein, basilic vein and visualized forearm veins were well identified and normal. They demonstrate normal compressibility and color fill-in. Of note, the left cephalic vein in its upper portion contains noncompressible thrombus which is partially occlusive IMPRESSION: No evidence of upper extremity deep vein thrombosis in either upper extremity. There is superficial thrombophlebitis present in the left cephalic vein with partially occlusive thrombus.
--- NOTE | 2017-08-06 13:21 | PN- Att Addend ---
Attending Addendum Attending Brief Note Laboratory Tests 08/06/17 1250: Troponin I Pending, CBC w Diff Pending, WBC Pending, RBC Pending, Hgb Pending, Hct Pending, MCV Pending, MCH Pending, MCHC Pending, RDW Pending, Plt Count Pending, MPV Pending 08/06/17 0620: Anion Gap 9, Estimated GFR 44 L, BUN/Creatinine Ratio 28.3 H, Troponin I 1.35 *H 08/06/17 0210: Urinalysis MANY H, Urine Color YEL, Urine Clarity CLDY H, Urine pH 6.5, Ur Specific [place] 1.020, Urine Protein 100 H, Urine Ketones NEG, Urine Nitrite NEG, Urine Bilirubin NEG, Urine Urobilinogen 0.2, Ur Leukocyte Esterase TRACE H , Ur Microscopic SEDIMENT EXAMINED, Urine RBC 15-25 H, Urine WBC 5-10 H, Ur Epithelial Cells FEW, Urine Bacteria MOD H, Urine Mucus RARE, Urine Hemoglobin MOD H, Urine Glucose NEG 08/06/17 0005: Anion Gap 7, Estimated GFR 40 L, BUN/Creatinine Ratio 26.2 H, Glucose 90, Calcium 9.3, Total Bilirubin 0.3, AST 22, ALT 20, Alkaline Phosphatase 76, Troponin I 1.31 *H, Drc-[id number]-[id number] Pept 99458 H, Total Protein 4.8 L, Albumin 2.2 L, Globulin 2.6, Albumin/Globulin Ratio 0.8 L, CBC w Diff MAN DIFF ORDERED, RBC 3.30 L, MCV 90.6, MCH 30.2, MCHC 33.3, RDW 16.3 H, MPV 8.0, Gran % 84.8 H, Lymphocytes % 7.6 L, Monocytes % 6.3, Eosinophils % 0.8, Basophils % 0.5, Absolute Granulocytes 13.7 H, Segmented Neutrophils 87 H, Absolute Lymphocytes 1.2, Lymphocytes 8 L, Monocytes 2, Absolute Monocytes 1.0 H, Eosinophils 2, Absolute Eosinophils 0.1, Basophils 1, Absolute Basophils 0.1, Platelet Estimate ADEQUATE, Polychromasia 1+, Poikilocytosis 2+, Basophilic Stippling SLIGHT, Ovalocytes 1+, Stomatocytes 1+, Fld Total RBCs Counted 100 08/05/17 3675: pH 7.36, pCO2 44, pO2 221 H, HCO3 24, ABG O2 Sat (Measured) 99.0, Carboxyhemoglobin 0.3 L, O2 Concentration % 100%, O2 Delivery Method NRB, Phlebotomy Draw Site RIGHT RADIAL Vital Signs Date Time Temp Pulse Resp B/P B/P Pulse O2 O2 Flow FiO2 Mean Ox Delivery Rate 08/06 1140 Nasal 3.0L Cannula 08/06 0936 84 160/80 08/06 0935 84 160/80 08/06 0800 96 Nasal 3.0L Cannula 08/06 0745 98.5 82 22 160/80 96 Nasal 3.0L Cannula 08/06 0638 96 Nasal 3.0L Cannula 08/06 0635 99.0 90 22 150/80 97 Nasal 3.0L Cannula 08/06 0628 97 Nasal 3.0L Cannula 08/06 0504 99.0 80 24 170/73 95 Nasal 2.0L Cannula 08/06 0345 98.5 75 24 160/70 97 Nasal 2.0L Cannula 08/06 0129 98.0 78 24 166/67 97 Nasal 2.0L Cannula 08/05 2333 98.6 80 24 154/67 93 Nasal 2.0L Cannula 08/05 2304 97 Nasal 2.0L Cannula 08/05 2255 96 Room Air 2.0L 08/05 2237 98.7 86 30 200/95 100 Non 100% ReBreather 76 yr old female with pmh of CHF- diastolic with stage 3 restrictive pattern on recent echo who was recently discharged on 08/02/17 presented with worsening sob from home. Pt was found to have fluid overload on cxr and looks like she has worsening rt side pleural effusion and very high BNP. Acute on chronic diastolic CHF. Pt got dose of iv lasix in ER and we have increased her lasix to 40mg iv q12h and would repeat cxr in am to see if it is getting better. Cardiology consult placed. will f/u on their recommendations and will monitor on tele and do strict intake and output. Trend troponin levels and f/u on creatinine levels. Troponin elevation- Type 2 OR likely secondary to worsening heart failure. Trend trop. cont on asa and plavix. H/o DVT in past- off xarelto due to recent GI bleed on previous visit. D/w pt the care plan .
[2017-08-06 13:48] LABS: ABSOLUTE BASOPHIL COUNT 0 /CUMM (0.0-0.2); ABSOLUTE EOSINOPHIL COUNT 0.2 /CUMM (0.0-0.7); ABSOLUTE GRANULOCYTE CT 13.5 /CUMM (1.4-6.5); ABSOLUTE LYMPH COUNT 0.6 /CUMM (1.2-3.4); ABSOLUTE MONOCYTE COUNT 0.6 /CUMM (0.10-0.60); BASOPHIL % 0.1 % (0.0-2.0); EOSINOPHIL % 1.2 % (0-5); GRANULOCYTE % 90.5 % (42.2-75.2); HEMATOCRIT 26.4 % (37-47); MEAN CORPUSCULAR HGB 30.1 PG (27.0-31.0); MEAN CORPUSCULAR HGB CONC 33.1 G/DL (33.0-37.0); MEAN PLATELET VOLUME 8.1 FL (7.4-10.4); PLATELET COUNT 282 /CUMM (130-400); RBC DISTRIBUTION WIDTH 16.6 % (11.5-14.5); WHITE BLOOD CELL COUNT 14.9 /CUMM (4.8-10.8)
[2017-08-06 16:00] VITALS: BP 118/60
[2017-08-07] VITALS: BP 124/70
[2017-08-07 05:55] LABS: ABSOLUTE BASOPHIL COUNT 0 /CUMM (0.0-0.2); ABSOLUTE EOSINOPHIL COUNT 0.2 /CUMM (0.0-0.7); ABSOLUTE GRANULOCYTE CT 5.9 /CUMM (1.4-6.5); ABSOLUTE LYMPH COUNT 1.2 /CUMM (1.2-3.4); ABSOLUTE MONOCYTE COUNT 0.6 /CUMM (0.10-0.60); BASOPHIL % 0.5 % (0.0-2.0); GRANULOCYTE % 73.9 % (42.2-75.2); HEMATOCRIT 22.8 % (37-47); MEAN CORPUSCULAR HGB CONC 32.7 G/DL (33.0-37.0); MEAN CORPUSCULAR VOLUME 91.5 FL (81.0-99.0); MEAN PLATELET VOLUME 7.8 FL (7.4-10.4); PLATELET COUNT 224 /CUMM (130-400); RBC DISTRIBUTION WIDTH 16.8 % (11.5-14.5); RED BLOOD CELL CT 2.49 /CUMM (4.20-5.40)
--- NOTE | 2017-08-07 07:22 | PN- Housestaff ---
Colt CURTIS,Vincenzo 08/07/17 0721: Subjective Follow-up For: chf exacerbation Acute on chronic anemia Subjective: When seen today, she was asleep, awoken by verbal stimuli. No acute o/n telemetry or nursing event noted. She reports her breathing is much better compared to previous days. She endorses no cp/palpitation, fever/chills, abdominal pain, nausea/abdominal pain, or dysuria. Review of Systems Constitutional: Reports: see HPI. Objective Last 24 Hrs of Vital Signs/I&O Vital Signs Date Time Temp Pulse Resp B/P B/P Pulse O2 O2 Flow FiO2 Mean Ox Delivery Rate 08/07 0751 97.8 70 22 108/60 99 Nasal 3.0L Cannula 08/07 0000 98 Nasal 3.0L Cannula 08/07 0000 97.4 73 19 124/70 98 Nasal 3.0L Cannula 08/06 2126 69 122/70 08/06 2000 98 Nasal 3.0L Cannula 08/06 1615 94 Nasal 3.0L Cannula 08/06 1600 98 Nasal 3.0L Cannula 08/06 1600 98.8 74 16 118/60 98 Nasal 3.0L Cannula 08/06 1140 Nasal 3.0L Cannula 08/06 0936 84 160/80 08/06 0935 84 160/80 Intake & Output 08/07 1600 08/07 0800 08/07 0000 Intake Total 120 240 Output Total 301 250 Balance -181 -10 Intake, Oral 120 240 Output, Stool 1 0 Output, Urine 300 250 Physical Exam General Appearance: Alert, Oriented X3, Cooperative Other Physical Findings: HEENT Atraumatic, PERRLA, EOMI, Mucous Membr. moist/pink Neck Supple, No JVD Cardiovascular Normal S1, Normal S2 Lungs bibasilar crackles minimal compared to yesterday Abdomen Normal Bowel Sounds, Soft, colostomy bag in place, no surrounding inflamtion Extremities 2 + pitting edema in both LE, 3 + pitting edema in both UE Vascular Normal Pulses Current Medications: Current Medications Sig/Rick Start time Last Medication Dose Route Stop Time Status Admin Acetaminophen 1,000 MG Q6P PRN 08/06 0445 AC N/A 1 UNIT IV Acetaminophen/ 1 TAB BID PRN 08/06 0430 AC Butalbital/Caffeine PO Aspirin 81 MG DAILY 08/06 0900 AC 08/06 PO 0936 Calcium/Vitamin D 1 TAB DAILY 08/06 0900 AC 08/06 PO 0936 Carvedilol 6.25 MG BID 08/06 899 AC 08/06 PO 2126 Clopidogrel Bisulfate 75 MG DAILY 08/06 899 AC 08/06 PO 0936 Cyclobenzaprine HCl 5 MG TIDPRN PRN 08/06 0430 AC PO Docusate Sodium 100 MG DAILY 08/06 09 AC 08/06 PO 0814 Ergocalciferol 50,000 IU QWED 08/06 899 AC 08/06 PO 0936 Fenofibrate 145 MG DAILY 08/06 899 AC 08/06 PO 0935 Ferrous Sulfate 325 MG DAILY 08/06 899 AC 08/06 PO 0936 Furosemide 40 MG DAILY 08/07 899 AC IV Furosemide 40 MG BID 08/06 2100 DC 08/06 IV 2127 Furosemide 40 MG DAILY 08/06 899 DC 08/06 IV 0815 Gabapentin 100 MG Q8 08/06 06 AC 08/07 PO 0609 Levothyroxine Sodium 0.025 MG DAILY AC 08/06 07 AC 08/07 PO 0609 Lisinopril 10 MG QAM 08/06 09 AC 08/06 PO 0935 Metoclopramide HCl 10 MG TID 08/06 899 AC 08/06 PO 2127 Morphine Sulfate 2 MG Q4P PRN 08/06 0445 AC 08/06 IV 1430 Nitroglycerin 0.4 MG DAILY 08/06 899 AC 08/06 TOP 0816 Omeprazole 20 MG DAILY AC 08/06 07 AC 08/07 PO 0609 Potassium Chloride 10 MEQ DAILY 08/06 899 AC 08/06 PO 0934 Prednisone 10 MG QAM 08/06 0800 08/06 PO 0935 Senna/Docusate Sodium 1 TAB DAILY NEEDED PRN 08/06 044 AC PO Sertraline HCl 25 MG QAM 08/06 0900 AC 08/06 PO 0935 Last 24 Hrs of Lab/Rubin Results Last 24 Hrs of Labs/Mics: Laboratory Tests 08/07/17 0530: Anion Gap 7, Estimated GFR 31 L, BUN/Creatinine Ratio 23.8, CBC w Diff NO MAN DIFF REQ, RBC 2.49 L, MCV 91.5, MCH 30.0, MCHC 32.7 L, RDW 16.8 H, MPV 7.8, Gran % 73.9, Lymphocytes % 14.6 L, Monocytes % 8.0, Eosinophils % 3.0, Basophils % 0.5, Absolute Granulocytes 5.9, Absolute Lymphocytes 1.2, Absolute Monocytes 0.6, Absolute Eosinophils 0.2, Absolute Basophils 0 08/06/17 2000: Troponin I 1.20 *H 08/06/17 1250: Troponin I 1.52 *H, CBC w Diff MAN DIFF ORDERED, RBC 2.90 L, MCV 91.0, MCH 30.1 , MCHC 33.1, RDW 16.6 H, MPV 8.1, Gran % 90.5 H, Lymphocytes % 4.2 L, Monocytes % 4.0, Eosinophils % 1.2, Basophils % 0.1, Absolute Granulocytes 13.5 H, Absolute Lymphocytes 0.6 L, Absolute Monocytes 0.6, Absolute Eosinophils 0.2 , Absolute Basophils 0, Platelet Estimate VERIFIED BY SMEAR, Polychromasia 1+, Basophilic Stippling 1+, Anisocytosis 1+ Assessment/Plan Assessment: Impression: * CHF exacerbation as evident by significant increase of ProBNP, vascular congestion on CXR, pitting edema, and shortness of breath. * Superficial thrombophlebitis present in the left cephalic vein with partially occlusive thrombus. * Elevated troponin (no EKG changes most likely supply/demand mismatch), peaked at 1.20. * CKD stage IV * History of DVT (Xarelto on hold due to GI bleed in the past) * Acute on Chronic anemia * Recent Type II OH s/p cardiac cath and stent placement on aspirin/plavix * history of rheumatoid arthritis, hypothyroidism, * Leukocytosis. Resolved (likely secondary to chronic steroid use). * Asymptomatic bacteruria Plan * Continue Lasix form 40 mg IV bid, CXR does show some interval improvement. * Continue stricts ins and outs and daily weights * Continue current cardiac meds * Will administer albumin 12.5mg once and also increase oral protein supplementation via ensure * Will type and cross and infuse 1 PRBC * Warms compresses and APAP for the superficial thromboplebitis of cephalic vein (The CKD precludes use of NSAIDs). Upper extremites thrombus have low risk for PE propagation, especially superficial ones which normally do not require anticoagulation. It is also noted patient has a hx of GI bleeds which provides a relative contraindication for anticoagulation use. * Watch off ABX. Problem List: 1. CHF exacerbation 2. Leukocytosis Pain Ratin Pain Location: abdomen Pain Goal: Remain pain free Pain Plan: per pathway Tomorrow's Labs & Rationales: BEP-CHF on lasix CBC:Acute on chronic worsening anemia LuevanoNithya ferrarajayden 08/07/17 1441: Attending MD Review Statement Attending Statement Attending MD Statement: examined this patient, discuss w/resident/PA/PROCESS PROJECT ENGINEER, agreed w/resident/PA/PROCESS PROJECT ENGINEER, reviewed EMR data (avail) Attending Assessment/Plan: Acute on chronic diastolic chf- cont on lasix 40mg iv bid for now. Will give her a dose of iv albumin prior to the evening lasix dose and again tomorrow morning before her lasix dose. On exam has third spacing and generalized anasarca. Hypoalbuminemia- sec to poor nutrition status. will start on dietary protein supplements. Anemia- likely secondary to GI loss, will do stool guaic. Pt had recent gi bleed on prior hospital admission. Will type and xmatch and transfuse as needed. d/w pt the care plan.
[2017-08-07 07:51] VITALS: BP 108/60
--- NOTE | 2017-08-07 08:13 | RADIOLOGY REPORT ---
XR PORTABLE CHEST CLINICAL INFORMATION: Assess for interval changes. COMPARISON: Chest x-ray 08/05/2017. TECHNIQUE: Portable frontal view of the chest was obtained. FINDINGS: Symmetric lung inflation. Accounting for technical differences there is likely been no significant interval change in size of the small right greater than left pleural effusions with adjacent airspace disease. Central vascular congestion and persistent interstitial prominence again suggesting interstitial edema which is slightly improved. No pneumothorax. Cardiac silhouette is enlarged and unchanged. Osseous structures stable. IMPRESSION: Improving interstitial edema and improving central vascular congestion. Similar appearing small right greater than left pleural effusions with adjacent airspace disease.
[2017-08-07 16:00] VITALS: BP 118/60
--- NOTE | 2017-08-07 18:41 | PN- Cardiology ---
Subjective Subjective: Feels a little better this afternoon. Being transfused PRBCs for decreased H/H. Objective Vital Signs and I&Os Vital Signs Date Time Temp Pulse Resp B/P B/P Pulse O2 O2 Flow FiO2 Mean Ox Delivery Rate 08/07 1600 95 Nasal 2.0L Cannula 08/07 1600 98.5 74 20 118/60 96 Nasal 2.0L Cannula 08/07 1022 98 Nasal 2.0L Cannula 08/07 0953 77 110/60 08/07 0952 77 110/60 08/07 0800 96 Nasal 2.0L Cannula 08/07 0751 97.8 70 22 108/60 99 Nasal 3.0L Cannula 08/07 0000 98 Nasal 3.0L Cannula 08/07 0000 97.4 73 19 124/70 98 Nasal 3.0L Cannula 08/06 2126 69 122/70 08/06 2000 98 Nasal 3.0L Cannula Intake & Output 08/07 1600 08/07 0800 08/07 0000 08/06 1600 08/06 0800 08/06 0000 Intake Total 460 120 240 680 0 Output Total 600 301 250 400 300 Balance -140 -181 -10 280 -300 0 Intake, IV 100 Intake, Oral 360 120 240 680 0 Number 1 Bowel Movements Output, Stool 1 0 Output, Urine 600 300 250 400 300 Patient 155 lb 158 lb 130 lb Weight Weight Bed scale Bed scale Estimated Measurement Method Physical Exam: Well-developed, obese elderly female no acute distress with nasal oxygen in place. Vital signs: See above. HEENT: Normocephalic, atraumatic, EOMI, moist mucous membranes. Neck: No JVD, no bruits. Lungs: Few bibasilar crackles. Heart: S1, S2 with soft (grade 1/6) systolic murmur. No gallop or rub. PMI not well felt. Abdomen: Soft, nontender, positive bowel sounds. Extremities: trace edema. Current Medications: Current Medications Sig/Rick Start time Last Medication Dose Route Stop Time Status Admin Acetaminophen 1,000 MG Q6P PRN 08/06 0445 AC N/A 1 UNIT IV Acetaminophen/ 1 TAB BID PRN 08/06 0430 AC Butalbital/Caffeine PO Albumin Human 12.5 GM ONCE ONE 08/08 0700 AC IV 08/08 0701 Albumin Human 12.5 GM ONCE ONE 08/07 1330 DC 08/07 IV 08/07 1331 1505 Aspirin 81 MG DAILY 08/06 09 AC 08/07 PO 0952 Calcium/Vitamin D 1 TAB DAILY 08/06 899 AC 08/07 PO 0952 Carvedilol 6.25 MG BID 08/06 899 AC 08/07 PO 0952 Clopidogrel Bisulfate 75 MG DAILY 08/06 09 AC 08/07 PO 0952 Cyclobenzaprine HCl 5 MG TIDPRN PRN 08/06 0430 AC PO Docusate Sodium 100 MG DAILY 08/06 09 AC 08/07 PO 0952 Ergocalciferol 50,000 IU QWED 08/06 09 AC 08/06 PO 0936 Fenofibrate 145 MG DAILY 08/06 899 AC 08/07 PO 0951 Ferrous Sulfate 325 MG DAILY 08/06 899 AC 08/07 PO 0952 Furosemide 40 MG BID 08/07 2100 AC IV Furosemide 40 MG DAILY 08/07 09 DC 08/07 IV 0951 Furosemide 40 MG BID 08/06 2100 DC 08/06 IV 2127 Gabapentin 100 MG Q8 08/06 06 08/07 PO 1538 Levothyroxine Sodium 0.025 MG DAILY AC 08/06 07 AC 08/07 PO 0609 Lisinopril 10 MG QAM 08/06 899 AC 08/07 PO 0953 Metoclopramide HCl 10 MG TID 08/06 899 AC 08/07 PO 1538 Morphine Sulfate 2 MG Q4P PRN 08/06 044 AC 08/07 IV 1802 Nitroglycerin 0.4 MG DAILY 08/06 09 AC 08/07 TOP 0951 Omeprazole 20 MG DAILY AC 08/06 07 AC 08/07 PO 0609 Potassium Chloride 10 MEQ DAILY 08/06 09 AC 08/07 PO 0951 Prednisone 10 MG QAM 08/06 0900 AC 08/07 PO 0952 Senna/Docusate Sodium 1 TAB DAILY NEEDED PRN 08/06 044 AC 08/07 PO 1837 Sertraline HCl 25 MG QAM 08/06 0800 AC 08/07 PO 0951 Sodium Chloride 250 ML .Q1H 08/07 1500 DC IV 08/07 1859 Results Last 48 Hrs of Labs/Mics: Laboratory Tests 08/07/17 0530: Anion Gap 7, Estimated GFR 31 L, BUN/Creatinine Ratio 23.8, CBC w Diff NO MAN DIFF REQ, RBC 2.49 L, MCV 91.5, MCH 30.0, MCHC 32.7 L, RDW 16.8 H, MPV 7.8, Gran % 73.9, Lymphocytes % 14.6 L, Monocytes % 8.0, Eosinophils % 3.0, Basophils % 0.5, Absolute Granulocytes 5.9, Absolute Lymphocytes 1.2, Absolute Monocytes 0.6, Absolute Eosinophils 0.2, Absolute Basophils 0 08/06/17 2000: Troponin I 1.20 *H 08/06/17 1250: Troponin I 1.52 *H, CBC w Diff MAN DIFF ORDERED, RBC 2.90 L, MCV 91.0, MCH 30.1 , MCHC 33.1, RDW 16.6 H, MPV 8.1, Gran % 90.5 H, Lymphocytes % 4.2 L, Monocytes % 4.0, Eosinophils % 1.2, Basophils % 0.1, Absolute Granulocytes 13.5 H, Absolute Lymphocytes 0.6 L, Absolute Monocytes 0.6, Absolute Eosinophils 0.2 , Absolute Basophils 0, Platelet Estimate VERIFIED BY SMEAR, Polychromasia 1+, Basophilic Stippling 1+, Anisocytosis 1+ 08/06/17 0620: Anion Gap 9, Estimated GFR 44 L, BUN/Creatinine Ratio 28.3 H, Troponin I 1.35 *H 08/06/17 0210: Urinalysis MANY H, Urine Color YEL, Urine Clarity CLDY H, Urine pH 6.5, Ur Specific [place] 1.020, Urine Protein 100 H, Urine Ketones NEG, Urine Nitrite NEG, Urine Bilirubin NEG, Urine Urobilinogen 0.2, Ur Leukocyte Esterase TRACE H , Ur Microscopic SEDIMENT EXAMINED, Urine RBC 15-25 H, Urine WBC 5-10 H, Ur Epithelial Cells FEW, Urine Bacteria MOD H, Urine Mucus RARE, Urine Hemoglobin MOD H, Urine Glucose NEG 08/06/17 0005: Anion Gap 7, Estimated GFR 40 L, BUN/Creatinine Ratio 26.2 H, Glucose 90, Calcium 9.3, Total Bilirubin 0.3, AST 22, ALT 20, Alkaline Phosphatase 76, Troponin I 1.31 *H, Pih-Y-Lmkvephnnuz Pept 13055 H, Total Protein 4.8 L, Albumin 2.2 L, Globulin 2.6, Albumin/Globulin Ratio 0.8 L, CBC w Diff MAN DIFF ORDERED, RBC 3.30 L, MCV 90.6, MCH 30.2, MCHC 33.3, RDW 16.3 H, MPV 8.0, Gran % 84.8 H, Lymphocytes % 7.6 L, Monocytes % 6.3, Eosinophils % 0.8, Basophils % 0.5, Absolute Granulocytes 13.7 H, Segmented Neutrophils 87 H, Absolute Lymphocytes 1.2, Lymphocytes 8 L, Monocytes 2, Absolute Monocytes 1.0 H, Eosinophils 2, Absolute Eosinophils 0.1, Basophils 1, Absolute Basophils 0.1, Platelet Estimate ADEQUATE, Polychromasia 1+, Poikilocytosis 2+, Basophilic Stippling SLIGHT, Ovalocytes 1+, Stomatocytes 1+, Fld Total RBCs Counted 100 08/05/17 2235: pH 7.36, pCO2 44, pO2 221 H, HCO3 24, ABG O2 Sat (Measured) 99.0, Carboxyhemoglobin 0.3 L, O2 Concentration % 100%, O2 Delivery Method NRB, Phlebotomy Draw Site RIGHT RADIAL Microbiology 08/06 0545 GI: Surveillance Culture - COMP 08/06 0005 UPPER RESP: Surveillance Culture - COMP Recent Imaging Studies: CXR 08/07/2017: Improving interstitial edema and improving central vascular congestion. Similar appearing small right greater than left pleural effusions with adjacent airspace disease. Assessment/Plan Assessment/Plan [id number] w/ hx of anxiety/depression, RA on steroid Rx, hypothyroidism, DVT w/ previous Eliquis Rx, obesity, TACO, HTN, LVH, AR, DD w/ acute on ch diastolic HF (HFpEF), colonic perforation 2/2 colonoscopy s/p Constance procedure September 2014 complicated by type II [place], MARVEL, bacteremia, etc. & ch anemia w/ recent adm for symptomatic anemia that improved w/ transfusion of PRBCs complicated by MARVEL on CKD, etc. who improved w/ standard measures, but w/ subsequent cardiac cath at [facility] (07/02/2017) that revealed a 70% LAD stenosis s/p stent to 0% residual stenosis & ELSY-3 flow, again admitted (07/07-07/11/2017) w/ worsening ch weakness, SOB, new bilat LE edema c/w HFpEF & a modest troponin I elevation 2 /2 type II [place] who improved w/ standard therapy, but who was again admitted (-08/02/2017) w/ evidence of GI bleeding on dual antiplatelet Rx for her recent coronary stent. She has a colostomy & underwent endoscopy/colonoscopy on 2017 w/o obvious source for bleeding discovered & a plan for OP PillCam, however she returned to the ED again on 08/05/2017 w/ SOB, orthopnea, edema, and a modest troponin elevation. Feeling improved and CXR showing less interstitial edema. Drop in her H/H for which she is now receiving PRBCs. Follow-up CXR in AM. Continue telemetry? Not applicable (In ICU.)
[2017-08-07 23:36] VITALS: BP 118/62
[2017-08-08 06:00] LABS: ABSOLUTE BASOPHIL COUNT 0 /CUMM (0.0-0.2); ABSOLUTE EOSINOPHIL COUNT 0.2 /CUMM (0.0-0.7); ABSOLUTE GRANULOCYTE CT 5.2 /CUMM (1.4-6.5); ABSOLUTE MONOCYTE COUNT 0.5 /CUMM (0.10-0.60); BASOPHIL % 0.5 % (0.0-2.0); EOSINOPHIL % 2.6 % (0-5); GRANULOCYTE % 74.7 % (42.2-75.2); HEMATOCRIT 24.4 % (37-47); MEAN CORPUSCULAR HGB 30.2 PG (27.0-31.0); MEAN CORPUSCULAR HGB CONC 32.8 G/DL (33.0-37.0); MEAN CORPUSCULAR VOLUME 91.9 FL (81.0-99.0); MEAN PLATELET VOLUME 7.8 FL (7.4-10.4); PLATELET COUNT 204 /CUMM (130-400); RBC DISTRIBUTION WIDTH 16.9 % (11.5-14.5); RED BLOOD CELL CT 2.65 /CUMM (4.20-5.40)
[2017-08-08 08:00] VITALS: BP 122/64
--- NOTE | 2017-08-08 08:30 | PN- Housestaff ---
See Addendum Subjective Follow-up For: Dyspnea Acute CHF Subjective: Patient seen and examined at bedside. She states that she feels her breathing is much better compared to previous days, she is currently on 2 L. He denies any new complaints of shortness of breath, chest pain, palpitation, fever, chills, abdominal pain, focal neurological deficit, or dysuria. No acute overnight event reported by nursing staff. Review of Systems Constitutional: Reports: no symptoms. Objective Last 24 Hrs of Vital Signs/I&O Vital Signs Date Time Temp Pulse Resp B/P B/P Pulse O2 O2 Flow FiO2 Mean Ox Delivery Rate 08/08 0932 64 122/54 08/08 0932 64 122/54 08/08 0800 98 Nasal 2.0L Cannula 08/08 0800 97.7 68 16 122/64 98 Nasal 2.0L Cannula 08/08 0000 96 Nasal 2.0L Cannula 08/07 2336 98.5 76 21 118/62 96 Nasal 2.0L Cannula 08/07 2111 82 21 110/52 08/07 1600 95 Nasal 2.0L Cannula 08/07 1600 98.5 74 20 118/60 96 Nasal 2.0L Cannula Intake & Output 08/08 1600 08/08 0800 08/08 0000 Intake Total 50 138 Output Total 400 901 Balance -350 -763 Intake, IV 0 20 Intake, Oral 50 118 Output, Stool 0 1 Output, Urine 400 900 Patient 70.817 kg 71.214 kg 70.817 kg Weight Weight Bed scale Bed scale Measurement Method Physical Exam General Appearance: Alert, Oriented X3, Cooperative Other Physical Findings: HEENT Atraumatic, PERRLA, EOMI, Mucous Membr. moist/pink Neck Supple, No JVD Cardiovascular Normal S1, Normal S2 Lungs minimal basilar crackles compared to yesterday Abdomen Normal Bowel Sounds, Soft, colostomy bag in place, no surrounding inflamtion Extremities 2 + pitting edema in both LE, 3 + pitting edema in both UE Vascular Normal Pulses Current Medications: Current Medications Sig/Rick Start time Last Medication Dose Route Stop Time Status Admin Acetaminophen 1,000 MG Q6P PRN 08/06 0445 AC N/A 1 UNIT IV Acetaminophen/ 1 TAB BID PRN 08/06 0430 AC Butalbital/Caffeine PO Albumin Human 12.5 GM ONCE ONE 08/08 0700 DC 08/08 IV 08/08 0701 0721 Albumin Human 12.5 GM ONCE ONE 08/07 1330 DC 08/07 IV 08/07 1331 1505 Aspirin 81 MG DAILY 08/06 0900 AC 08/08 PO 0928 Calcium/Vitamin D 1 TAB DAILY 08/06 0900 AC 08/08 PO 0929 Carvedilol 6.25 MG BID 08/06 0900 AC 08/08 PO 0932 Clopidogrel Bisulfate 75 MG DAILY 08/06 09 AC 08/08 PO 0929 Cyclobenzaprine HCl 5 MG TIDPRN PRN 08/06 0430 AC PO Docusate Sodium 100 MG DAILY NEEDED PRN 08/07 1900 AC PO Docusate Sodium 100 MG DAILY 08/06 09 AC 08/08 PO 0927 Ergocalciferol 50,000 IU QWED 08/06 0900 AC 08/06 PO 0936 Fenofibrate 145 MG DAILY 08/06 0900 AC 08/08 PO 0929 Ferrous Sulfate 325 MG DAILY 08/06 09 AC 08/08 PO 0928 Furosemide 40 MG BID 08/07 2100 AC 08/08 IV 0936 Furosemide 40 MG DAILY 08/07 0900 DC 08/07 IV 0951 Gabapentin 100 MG Q8 08/06 06 AC 08/08 PO 0554 Levothyroxine Sodium 0.025 MG DAILY AC 08/06 0700 AC 08/08 PO 0554 Lisinopril 10 MG QAM 08/06 0900 AC 08/08 PO 0932 Metoclopramide HCl 10 MG TID 08/06 09 AC 08/08 PO 0928 Morphine Sulfate 2 MG Q4P PRN 08/06 0445 AC 08/08 IV 0638 Nitroglycerin 0.4 MG DAILY 08/06 0900 AC 08/08 TOP 0933 Omeprazole 20 MG DAILY AC 08/06 0700 AC 08/08 PO 0554 Polyethylene Glycol 17 GM DAILY 08/07 1851 AC PO Potassium Chloride 10 MEQ DAILY 08/06 09 AC 08/08 PO 0933 Prednisone 10 MG QAM 08/06 0900 AC 08/08 PO 0931 Senna/Docusate Sodium 1 TAB DAILY NEEDED PRN 08/06 0445 AC 08/07 PO 1837 Sertraline HCl 25 MG QAM 08/06 0900 AC 08/08 PO 0929 Sodium Chloride 250 ML .Q1H 08/07 1500 DC IV 08/07 1859 Last 24 Hrs of Lab/Rubin Results Last 24 Hrs of Labs/Mics: Laboratory Tests 08/08/17 0530: Anion Gap 8, Estimated GFR 27 L, Glucose 82, Calcium 8.8, Phosphorus 4.8 H, Magnesium 1.8, Total Bilirubin 0.3, AST 14, ALT 17, Albumin 2.0 L, CBC w Diff NO MAN DIFF REQ, RBC 2.65 L, MCV 91.9, MCH 30.2, MCHC 32.8 L, RDW 16.9 H, MPV 7.8, Gran % 74.7, Lymphocytes % 14.5 L, Monocytes % 7.7, Eosinophils % 2.6, Basophils % 0.5, Absolute Granulocytes 5.2, Absolute Lymphocytes 1.0 L, Absolute Monocytes 0.5, Absolute Eosinophils 0.2, Absolute Basophils 0 Assessment/Plan Assessment: Impression: * CHF exacerbation as evident by significant increase of ProBNP, vascular congestion on CXR, pitting edema, and shortness of breath. Now improving. * Superficial thrombophlebitis present in the left cephalic vein with partially occlusive thrombus. * Elevated troponin (no EKG changes most likely supply/demand mismatch), peaked at 1.20. * CKD stage IV * History of DVT (Xarelto on hold due to GI bleed in the past) * Acute on Chronic anemia. Now stable s/p 1 unit PRBC * Recent Type II [place] s/p cardiac cath and stent placement on aspirin/plavix * history of rheumatoid arthritis, hypothyroidism, * Leukocytosis. Resolved (likely secondary to chronic steroid use). * Asymptomatic bacteruria Plan * Continue Lasix form 40 mg IV bid, CXR does shows interval stable changes * Continue stricts ins and outs and daily weights * Continue to trend creatinine * Continue current cardiac meds * S/p albumin X2, will increase protein intake via ensure supplements. * Hemoglobin stable, continue to guiac all stools * Continue Warms compresses and APAP for the superficial thromboplebitis of cephalic vein (The CKD precludes use of NSAIDs). Upper extremites thrombus have low risk for PE propagation, especially superficial ones which normally do not require anticoagulation. It is also noted patient has a hx of GI bleeds which provides a relative contraindication for anticoagulation use. * Watch off ABX. * DVT:ALPS * CODE:DNR/DNI Problem List: 1. Elevated troponin 2. CHF (congestive heart failure) 3. Superficial thrombophlebitis Pain Ratin Pain Location: diffuse Pain Goal: Remain pain free Pain Plan: per pathway Tomorrow's Labs & Rationales: cbc-acute anemia bep-rising trops
--- NOTE | 2017-08-08 08:43 | RADIOLOGY REPORT ---
EXAMINATION: XR PORTABLE CHEST CLINICAL INFORMATION: Shortness of breath. COMPARISON: Chest done on 08/07/2017. TECHNIQUE: Portable frontal view of the chest was obtained. FINDINGS: Persistent stable moderate enlargement of the cardiomediastinal silhouette and bilateral small pleural effusions are noted with nonspecific bibasilar airspace disease. Pulmonary venous congestion is also noted. No significant change. IMPRESSION: No significant change since 08/07/2017.
--- NOTE | 2017-08-08 12:03 | Transfer of Care Summary ---
Hospital Course Course Hospital Course: Reason for ICU placement: Telemetry Hold. HPI: 76 yo F with h/o HTN, HFpEF, CAD s/p LAD stent, RA on chronic prednisone, DVT previously on eliquis, TACO on CPAP, aortic regurgitation, CKD, anxiety, depression, colonic perforation s/p colostomy, has had multiple admissions over the past 2 months for CHF, colitis requiring abx and anemia wherein workup with EGD/ colonoscopy was negative with a plan for outpatient PillCam, discharged on August 02, returned 4 days after discharge for worsening dyspnea with minimal exertion (moving from commode to chair) and b/l upper and lower extremity edema. Interval events in the ICU: Symptomatic improvement in dyspnea, repeat CXR showing non worsening congestion/pleural effusion. Maintained on IV Lasix 40 mg BID. Positive trops but peaked at 1.2, no chest pain or EKG changes. Rcvd 1 unit PRBC on 08/07, when hgb was 7.5, repeat next day was 8. Urine postive for Alpha strept, no urinary symptoms. Imaging of Upper extremity was remarkable for superficial thrombophlebitis present in the left cephalic vein withpartially occlusive thrombus, managed with warm compresses and APAP. Mechanical Vent: No. NIPPV: No. Catheter: Cueto (Day 3). Things to be followed up on the floors: * Ins and outs and * Serum creatinine (trending up ,but not unusually high compared to patient's baseline). * Discharge plans on getting patient seen at CHF clinic sooner, to optimize her management and decrease readmission. * Continue to guiac all stools Nutrition: Poor oral intake with low albumin. Rcvd two albumin infusion on 08/08 and 08/09. Orderd Ensure can for every meal. DVT PPx: ALPS Code status: DNR/DNI Assessment/Plan: see above
[2017-08-08 13:10] VITALS: BP 112/58
--- NOTE | 2017-08-08 17:35 | PN- Cardiology ---
Subjective Subjective: Breathing continues to improve. Denies any chest discomfort, palpitations, etc. Objective Vital Signs and I&Os Vital Signs Date Time Temp Pulse Resp B/P B/P Pulse O2 O2 Flow FiO2 Mean Ox Delivery Rate 08/08 1310 97.7 68 18 112/58 95 Nasal 2.0L Cannula 08/08 0932 64 122/54 08/08 0932 64 122/54 08/08 0800 98 Nasal 2.0L Cannula 08/08 0800 97.7 68 16 122/64 98 Nasal 2.0L Cannula 08/08 0000 96 Nasal 2.0L Cannula 08/07 2336 98.5 76 21 118/62 96 Nasal 2.0L Cannula 08/07 2111 82 21 110/52 Intake & Output 08/08 1600 08/08 0800 08/08 0000 08/07 1600 08/07 0800 08/07 0000 Intake Total 320 50 138 460 120 240 Output Total 600 400 901 600 301 250 Balance -280 -350 -763 -140 -181 -10 Intake, IV 0 20 100 Intake, Oral 320 50 118 360 120 240 Output, Stool 0 1 1 0 Output, Urine 600 400 900 600 300 250 Patient 156 lb 157 lb 156 lb Weight Weight Bed scale Bed scale Measurement Method Physical Exam: Physical Exam: Well-developed, obese elderly female no acute distress with nasal oxygen in place. Vital signs: See above. HEENT: Normocephalic, atraumatic, EOMI, moist mucous membranes. Neck: No JVD, no bruits. Lungs: Decreased breath sounds at the bases. Heart: S1, S2 with soft (grade 1/6) systolic murmur. No gallop or rub. PMI not well felt. Abdomen: Soft, nontender, positive bowel sounds. Extremities: No edema. Current Medications: Current Medications Sig/Rick Start time Last Medication Dose Route Stop Time Status Admin Acetaminophen 1,000 MG Q6P PRN 08/06 0445 AC N/A 1 UNIT IV Acetaminophen/ 1 TAB BID PRN 08/06 0430 AC Butalbital/Caffeine PO Albumin Human 12.5 GM ONCE ONE 08/08 0700 DC 08/08 IV 08/08 0701 0721 Aspirin 81 MG DAILY 08/06 899 AC 08/08 PO 0928 Calcium/Vitamin D 1 TAB DAILY 08/06 09 AC 08/08 PO 09 Carvedilol 6.25 MG BID 08/06 899 AC 08/08 PO 0932 Clopidogrel Bisulfate 75 MG DAILY 08/06 899 AC 08/08 PO 0929 Cyclobenzaprine HCl 5 MG TIDPRN PRN 08/06 0430 AC PO Docusate Sodium 100 MG DAILY NEEDED PRN 08/07 1900 AC PO Docusate Sodium 100 MG DAILY 08/06 899 AC 08/08 PO 0927 Ergocalciferol 50,000 IU QWED 08/06 899 AC 08/06 PO 0936 Fenofibrate 145 MG DAILY 08/06 899 AC 08/08 PO 0929 Ferrous Sulfate 325 MG DAILY 08/06 899 AC 08/08 PO 0928 Furosemide 40 MG BID 08/07 2100 AC 08/08 IV 0936 Gabapentin 100 MG Q8 08/06 599 AC 08/08 PO 1338 Levothyroxine Sodium 0.025 MG DAILY AC 08/06 699 AC 08/08 PO 0554 Lisinopril 10 MG QAM 08/06 899 AC 08/08 PO 0932 Metoclopramide HCl 10 MG TID 08/06 899 AC 08/08 PO 1338 Morphine Sulfate 2 MG Q4P PRN 08/06 0445 AC 08/08 IV 0638 Nitroglycerin 0.4 MG DAILY 08/06 899 AC 08/08 TOP 0933 Omeprazole 20 MG DAILY AC 08/06 699 AC 08/08 PO 0554 Polyethylene Glycol 17 GM DAILY 08/07 185 AC PO Potassium Chloride 10 MEQ DAILY 08/06 899 AC 08/08 PO 0933 Prednisone 10 MG QAM 08/06 899 AC 08/08 PO 0931 Senna/Docusate Sodium 1 TAB DAILY NEEDED PRN 08/06 444 AC 08/07 PO 1837 Sertraline HCl 25 MG QAM 08/06 899 AC 08/08 PO 0929 Results Last 48 Hrs of Labs/Mics: Laboratory Tests 08/08/17 0530: Anion Gap 8, Estimated GFR 27 L, Glucose 82, Calcium 8.8, Phosphorus 4.8 H, Magnesium 1.8, Total Bilirubin 0.3, AST 14, ALT 17, Albumin 2.0 L, CBC w Diff NO MAN DIFF REQ, RBC 2.65 L, MCV 91.9, MCH 30.2, MCHC 32.8 L, RDW 16.9 H, MPV 7.8, Gran % 74.7, Lymphocytes % 14.5 L, Monocytes % 7.7, Eosinophils % 2.6, Basophils % 0.5, Absolute Granulocytes 5.2, Absolute Lymphocytes 1.0 L, Absolute Monocytes 0.5, Absolute Eosinophils 0.2, Absolute Basophils 0 08/07/17 0530: Anion Gap 7, Estimated GFR 31 L, BUN/Creatinine Ratio 23.8, CBC w Diff NO MAN DIFF REQ, RBC 2.49 L, MCV 91.5, MCH 30.0, MCHC 32.7 L, RDW 16.8 H, MPV 7.8, Gran % 73.9, Lymphocytes % 14.6 L, Monocytes % 8.0, Eosinophils % 3.0, Basophils % 0.5, Absolute Granulocytes 5.9, Absolute Lymphocytes 1.2, Absolute Monocytes 0.6, Absolute Eosinophils 0.2, Absolute Basophils 0 08/06/17 2000: Troponin I 1.20 *H Recent Imaging Studies: CXR 08/08/2017: Persistent stable moderate enlargement of the cardiomediastinal silhouette and bilateral small pleural effusions are noted with nonspecific bibasilar airspace disease. Pulmonary venous congestion is also noted. No significant change. Assessment/Plan Assessment/Plan [id number] w/ hx of anxiety/depression, RA on ch steroid Rx, hypothyroidism, DVT w/ previous Eliquis Rx, obesity, TACO, HTN, LVH, AR, DD w/ acute on ch diastolic HF (HFpEF), colonic perforation 2/2 colonoscopy s/p Constance procedure September 2014 complicated by type II [place], MARVEL, bacteremia, etc. & ch anemia w/ recent adm for symptomatic anemia that improved w/ transfusion of PRBCs complicated by MARVEL on CKD, etc. who improved w/ standard measures, but w/ subsequent cardiac cath at [facility] (07/02/2017) that revealed a 70% LAD stenosis s/p stent to 0% residual stenosis & ELSY-3 flow, again admitted (07/07-07/11/2017) w/ worsening ch weakness, SOB, new bilat LE edema c/w HFpEF & a modest troponin I elevation 2 /2 type II [place] who improved w/ standard therapy, but who was again admitted (-08/02/2017) w/ evidence of GI bleeding on dual antiplatelet Rx for her recent coronary stent. She has a colostomy & underwent endoscopy/colonoscopy on 2017 w/o obvious source for bleeding discovered & a plan for OP PillCam, however she returned to the ED again on 08/05/2017 w/ SOB, orthopnea, edema, anemia & modest troponin elevation. A further drop in her H/H yesterday prompted transfusion of pRBCs on 08/07/2017 with follow-up H/H noted. Overall, continues to slowly improve. Recommendations: * Continue on telemetry. * Follow-up H/H closely and maintain hemoglobin at or above 8.0 g/dl. * Notes increased BUN/creatinine following good diuresis. Would hold this PMs IV furosemide and reassess the need for further IV diuresis in the a.m. * Continue DVT prophylaxis. Continue telemetry? Yes
[2017-08-08 22:27] VITALS: BP 132/66
[2017-08-09 06:47] VITALS: BP 120/66
[2017-08-09 08:29] VITALS: BP 140/94
[2017-08-09 08:43] LABS: ABSOLUTE BASOPHIL COUNT 0 /CUMM (0.0-0.2); ABSOLUTE EOSINOPHIL COUNT 0.3 /CUMM (0.0-0.7); ABSOLUTE GRANULOCYTE CT 4.9 /CUMM (1.4-6.5); ABSOLUTE LYMPH COUNT 1.2 /CUMM (1.2-3.4); ABSOLUTE MONOCYTE COUNT 0.6 /CUMM (0.10-0.60); BASOPHIL % 0.5 % (0.0-2.0); EOSINOPHIL % 3.8 % (0-5); GRANULOCYTE % 70.6 % (42.2-75.2); HEMATOCRIT 25.2 % (37-47); MEAN CORPUSCULAR HGB 30.6 PG (27.0-31.0); MEAN CORPUSCULAR HGB CONC 33.1 G/DL (33.0-37.0); MEAN CORPUSCULAR VOLUME 92.4 FL (81.0-99.0); MEAN PLATELET VOLUME 8.3 FL (7.4-10.4); PLATELET COUNT 185 /CUMM (130-400); RBC DISTRIBUTION WIDTH 16.5 % (11.5-14.5); RED BLOOD CELL CT 2.72 /CUMM (4.20-5.40); WHITE BLOOD CELL COUNT 6.9 /CUMM (4.8-10.8)
--- NOTE | 2017-08-09 09:52 | PN- Housestaff ---
See Addendum Subjective Follow-up For: Dyspnea Acute CHF Tele-Events Since Last Visit: NSR with HR 64-68. No overnight events. Subjective: Patient was seen and examined this morning. States her breathing is improved. Offers no complaints at this time. Review of Systems Constitutional: Reports: no symptoms. Objective Last 24 Hrs of Vital Signs/I&O Vital Signs Date Time Temp Pulse Resp B/P B/P Pulse O2 O2 Flow FiO2 Mean Ox Delivery Rate 08/09 0833 70 140/94 08/09 0833 70 140/94 08/09 0829 70 140/94 08/09 0800 Nasal 2.0L Cannula 08/09 0647 98.1 70 18 120/66 100 Nasal Cannula 08/09 0000 Nasal 2.0L Cannula 08/08 2227 98.2 74 18 132/66 98 Nasal Cannula 08/08 2034 77 132/66 08/08 1600 95 Nasal 2.0L Cannula 08/08 1310 97.7 68 18 112/58 95 Nasal 2.0L Cannula Intake & Output 08/09 1600 08/09 0800 08/09 0000 Intake Total 120 360 Output Total 350 550 Balance -230 -190 Intake, Oral 120 360 Number 1 Bowel Movements Output, Urine 350 550 Patient 166 lb Weight Physical Exam General Appearance: Alert, Oriented X3, Cooperative, Mild Distress Skin: No Rashes, No Breakdown Skin Temp/Moisture Exam: Warm/Dry Sepsis Skin Exam (color): Normal for Ethnicity HEENT: Atraumatic Cardiovascular: Normal S1, Normal S2, No Murmurs Lungs: Clear to Auscultation, Normal Air Movement Abdomen: Soft, No Tenderness Neurological: Normal Speech Extremities: No Edema Last 24 Hrs of Lab/Rubin Results Last 24 Hrs of Labs/Mics: Laboratory Tests 08/09/17 0650: Anion Gap 7, Estimated GFR 27 L, BUN/Creatinine Ratio 26.1 H, CBC w Diff NO MAN DIFF REQ, RBC 2.72 L, MCV 92.4, MCH 30.6, MCHC 33.1, RDW 16.5 H, MPV 8.3, Gran % 70.6, Lymphocytes % 17.0 L, Monocytes % 8.1, Eosinophils % 3.8, Basophils % 0.5, Absolute Granulocytes 4.9, Absolute Lymphocytes 1.2, Absolute Monocytes 0.6, Absolute Eosinophils 0.3, Absolute Basophils 0 Assessment/Plan Assessment: 76 yo F with PMH HTN, HFpEF, history of DVT on Xarelto, history of chronic anemia, TACO on CPAP, anxiety, CKD stage 4, depression, and rheumatoid arthritis presented to the ED for evaluation of worsening dyspnea. Assessment: 1. CHF exacerbation 2. Superficial thrombophlebitis in left cephalic vein with partially occlusive thrombus. 3. Elevated troponin 4. History of CKD stage IV 5. Coronary artery disease s/p recent PCI 6. History of DVT 7. History of rheumatoid arthritis 8. History of Hypothyroidism Plan: * Continue monitoring on telemetry * Continue IV Lasix 40mg daily. * Strict I's and O's and daily weights * Reviewing old records, her baseline Cr ranges from 1.3-1.9. * Encouraged to increase protein intake from dietary supplements. * Check Hep B and C serologies - pending * Obtain old records from Dr Skinner office on Friday. * Monitor H&H. s/p 1unit pRBC transfusion on 08/07 * Continue Warms compresses for superficial thromboplebitis. * Continue aspirin, plavix and lisinopril * Diet: Heart Healthy with 2g Na * DVT prophylaxis: ALPS only for now. If no further drop in H&H can likely be started on pharmacological agent. * CODE:DNR/DNI Problem List: 1. Fluid overload Pain Ratin Pain Location: none Pain Goal: Remain pain free Pain Plan: none Tomorrow's Labs & Rationales: cbc, bep, Mg
--- NOTE | 2017-08-09 12:16 | Cons- Nephrology ---
General Information and HPI Consulting Request Date of Consult: 08/09/17 Requested By: Miryam Luevano MD Reason for Consult: Nephrotic syndrome. Rising creatinine. Source of Information: patient, old records Exam Limitations: no limitations History of Present Illness: This 76-year-old woman has a history of rheumatoid arthritis, coronary artery disease and chronic kidney disease. She has been followed by Dr. Jayson Skinner. She has never had a closed renal biopsy. She was found to be nephrotic or more appropriately have nephrotic range proteinuria on a recent hospital stay here. I do not see that any other serologies were ordered at the time. She denies any previous history of kidney disease and she's not quite sure as to how she was seen Dr. Skinner. She denies any dysuria, nocturia or frequency. She denies any hematuria or being told of any proteinuria. She has no family history of renal disease and no one in the family is on dialysis. I did not ask her about taking nonsteroidal anti-inflammatory drugs. Allergies/Medications Allergies: Coded Allergies: Penicillins (SWELLING, RASH, ITCH 07/18/17) cephalexin (From KEFLEX) (ITCHY 07/18/17) chocolate flavor (HEADACHE/MIGRAINE 07/18/17) codeine (ITCH 07/18/17) levofloxacin (From LEVAQUIN) (RASH 07/18/17) oxaprozin (From DAYPRO) (RASH 07/18/17) propoxyphene (UNKNOWN REACTION TO DARVOCET 07/18/17) Home Med List: Aspirin (Aspirin*) 81 MG TAB.CHEW 1 TAB PO DAILY Heart health Butalb/Acetaminophen/Caffeine (Caurdn-Kqmlickn-Woye 50-325-40) 50 MG-325 MG-40 MG TABLET 1 TAB PO BID PRN migrain (Reported) Calcium Carbonate/Vitamin D3 (Os-Mehdi 500+D3 Caplet) 500 MG-200 TABLET 1 TAB PO DAILY SUPPLEMENT (Reported) Carvedilol 6.25 MG TABLET 6.25 MG PO BID Heart Health . Clopidogrel Bisulfate (Plavix) 75 MG TABLET 1 TAB PO DAILY HEART HEALTH ( Reported) Cyclobenzaprine HCl 5 MG TABLET 1 TAB PO TIDPRN PRN muscle spasms (Reported) Docusate Sodium 100 MG CAPSULE 1 CAP PO DAILY constipation (Reported) Ergocalciferol (Vitamin D2) (Vitamin D2) 50,000 UNIT CAPSULE 1 CAP PO QWED SUPPLEMENT (Reported) Esomeprazole (Nexium) 40 MG CAPSULE.DR 1 CAP PO DAILY gastritis .. Fenofibrate,Micronized (Fenofibrate) 200 MG CAPSULE 1 CAP PO DAILY TG ( Reported) Ferrous Gluconate (Unknown Strength) TABLET (Unknown Dose) PO DAILY SUPPLEMENT (Reported) Furosemide (Lasix) 40 MG TABLET 40 MG PO DAILY Fluid Overload . Gabapentin 100 MG CAPSULE 1 CAP PO Q8 Neuropathy Levothyroxine Sodium 25 MCG TABLET 1 TAB PO DAILY AC THYROID (Reported) Lisinopril 10 MG TABLET 1 TAB PO QAM BP (Reported) Metoclopramide HCl (Reglan) 10 MG TABLET 1 TAB PO TID for nausea (Reported) 30 minutes before meals and bedtime Nitroglycerin (Nitroglycerin Patch) 0.4 MG/HOUR PATCH.TD24 1 PATCH TOP DAILY Heart health Potassium Chloride (Klor-Con 10) (Unknown Strength) TABLET.ER (Unknown Dose) PO DAILY SUPPLEMENT (Reported) Prednisone 10 MG TABLET 1 TAB PO QAM STEROID (Reported) Sennosides/Docusate Sodium (Senna Plus Tablet) 8.6 MG-50 MG TABLET 1 TAB PO DAILY NEEDED PRN CONSTIPATION . Sertraline HCl 25 MG TABLET 1 TAB PO QAM MENTAL HEALTH (Reported) Tramadol HCl 50 MG TABLET 1 TAB PO Q6 PRN PAIN SCALE 7-10 (SEVERE) Current Medications: Current Medications Sig/Rick Start time Last Medication Dose Route Stop Time Status Admin Acetaminophen 1,000 MG Q6P PRN 08/06 0445 AC N/A 1 UNIT IV Acetaminophen/ 1 TAB BID PRN 08/06 0430 AC Butalbital/Caffeine PO Aspirin 81 MG DAILY 08/06 899 AC 08/09 PO 0832 Calcium/Vitamin D 1 TAB DAILY 08/06 899 AC 08/09 PO 0832 Carvedilol 6.25 MG BID 08/06 899 AC 08/09 PO 0833 Clopidogrel Bisulfate 75 MG DAILY 08/06 899 AC 08/09 PO 0833 Cyclobenzaprine HCl 5 MG TIDPRN PRN 08/06 0430 AC PO Docusate Sodium 100 MG DAILY NEEDED PRN 08/07 1900 AC PO Docusate Sodium 100 MG DAILY 08/06 899 AC 08/09 PO 0832 Ergocalciferol 50,000 IU QWED 08/06 09 AC 08/06 PO 0936 Fenofibrate 145 MG DAILY 08/06 09 AC 08/09 PO 0833 Ferrous Sulfate 325 MG DAILY 08/06 09 AC 08/09 PO 0833 Furosemide 40 MG DAILY 08/09 1138 AC PO Furosemide 40 MG BID 08/07 2100 DC 08/08 IV 0936 Gabapentin 100 MG Q8 08/06 06 AC 08/09 PO 0601 Levothyroxine Sodium 0.025 MG DAILY AC 08/06 07 AC 08/09 PO 0601 Lisinopril 10 MG QAM 08/06 09 AC 08/09 PO 0833 Metoclopramide HCl 10 MG TID 08/06 899 AC 08/09 PO 0833 Morphine Sulfate 2 MG Q4P PRN 08/06 0445 AC 08/08 IV 2031 Nitroglycerin 0.4 MG DAILY 08/06 899 AC 08/09 TOP 0830 Omeprazole 20 MG DAILY AC 08/06 07 AC 08/09 PO 0601 Polyethylene Glycol 17 GM DAILY 08/07 1851 AC 08/09 PO 0830 Potassium Chloride 10 MEQ DAILY 08/06 09 AC 08/08 PO 0933 Prednisone 10 MG QAM 08/06 09 AC 08/09 PO 0833 Senna/Docusate Sodium 1 TAB DAILY NEEDED PRN 08/06 044 08/07 PO 1837 Sertraline HCl 25 MG QAM 08/06 09 AC 08/09 PO 0835 Review of Systems Review of Systems Constitutional: Denies: no symptoms, see HPI, chills, diaphoresis, fever, malaise, weakness. EENTM: Reports: double vision. Denies: blurred vision, ear pain, hearing changes, nasal congestion, epistaxis, nasal pain, throat pain. Cardiovascular: Reports: peripheral edema. Denies: chest pain, edema, orthopena, palpitations. Respiratory: Denies: cough, hemoptysis, orthopnea, short of breath, sputum production. GI: Denies: abdominal pain, bloating, constipation, diarrhea, distention, bowel incontinence, melena, nausea, bloody stool, vomiting. Genitourinary: Denies: discharge, dysuria, frequency, hesitation, nocturia, pain, urgency. Musculoskeletal: Reports: joint pain, muscle pain, muscle stiffness. Denies: joint swelling. Skin: Denies: rash. Neurological/Psychological: Reports: headache (reports being plagued by migra). Denies: anxiety, cognitive dysfunction, numbness, paresthesia. Hematologic/Endocrine: Denies: bruising, bleeding. 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 Renal: 3+PROTEIN IN URINE [id number], nephrotic range proteinuria and has been followed by Dr. Skinner as an outpatient. Of note, she has not seen him in quite some time. She has never had a kidney biopsy. 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 Home Services at Home: [facility] Primary Language: Georgian Smoking Status: Former Smoker ETOH Use: denies use Illicit Drug Use: denies illicit drug use Functional Ability Ambulation: walker IADLs Needs Assist: shopping, housework, food prep. Exam & Diagnostic Data Vital Signs and I&O Vital Signs Date Time Temp Pulse Resp B/P B/P Pulse O2 O2 Flow FiO2 Mean Ox Delivery Rate 08/09 0833 70 140/94 08/09 0833 70 140/94 08/09 0829 70 140/94 08/09 0800 Nasal 2.0L Cannula 08/09 0647 98.1 70 18 120/66 100 Nasal Cannula 08/09 0000 Nasal 2.0L Cannula 08/08 2227 98.2 74 18 132/66 98 Nasal Cannula 08/08 2034 77 132/66 08/08 1600 95 Nasal 2.0L Cannula 08/08 1310 97.7 68 18 112/58 95 Nasal 2.0L Cannula Intake & Output 08/09 1600 08/09 0400 08/08 1600 08/08 0400 08/07 1600 08/07 0400 Intake Total 120 360 370 138 580 240 Output Total 417 260 2764 901 901 250 Balance -230 -190 -630 -763 -321 -10 Intake, IV 0 20 100 Intake, Oral 120 360 370 118 480 240 Number 1 Bowel Movements Output, Stool 0 1 1 0 Output, Urine 275 277 1139 900 900 250 Patient 166 lb 156 lb 156 lb Weight Weight Bed scale Bed scale Measurement Method Physical Exam General Appearance: well developed/nourished, no apparent distress, alert, awake , anxious, cachetic, obese Head: atraumatic, normal appearance Eyes: Bilateral: PERRL, EOMI, pale conjunctivae. Neck: normal inspection, supple, trachea mid line Respiratory: normal breath sounds, chest non-tender, lungs clear Cardiovascular: regular rate/rhythm, edema Gastrointestinal: normal bowel sounds, soft, non-tender, no organomegaly, no abdominal bruits Back: normal inspection, no vertebral tenderness, no CVA tenderness Extremities: sacral edema also in the upper thighs Neurologic/Psych: no motor/sensory deficits, awake, alert, oriented x 3, depressed affect Cranial Nerves: normal hearing, normal speech, PERRL Skin: intact, normal color Results Pertinent Lab Results: Laboratory Tests 08/09 08/08 0650 0530 Chemistry Sodium (137 - 145 mmol/L) 141 138 Potassium (3.5 - 5.1 mmol/L) 4.9 4.8 Chloride (98 - 107 mmol/L) 104 103 Carbon Dioxide (22 - 30 mmol/L) 30 27 Anion Gap (5 - 16) 7 8 BUN (7 - 17 mg/dL) 47 H 44 H Creatinine (0.5 - 1.0 mg/dL) 1.8 H 1.8 H Estimated GFR (>60 ml/min) 27 L 27 L BUN/Creatinine Ratio (7 - 25 %) 26.1 H Glucose (65 - 99 mg/dL) 82 Calcium (8.4 - 10.2 mg/dL) 8.8 Phosphorus (2.5 - 4.5 mg/dL) 4.8 H Magnesium (1.6 - 2.3 mg/dL) 1.8 Total Bilirubin (0.2 - 1.3 mg/dL) 0.3 AST (14 - 36 U/L) 14 ALT (9 - 52 U/L) 17 Albumin (3.5 - 5.0 g/dL) 2.0 L Hematology CBC w Diff NO MAN DIFF REQ NO MAN DIFF REQ WBC (4.8 - 10.8 /CUMM) 6.9 7.0 RBC (4.20 - 5.40 /CUMM) 2.72 L 2.65 L Hgb (12.0 - 16.0 G/DL) 8.3 L 8.0 L Hct (37 - 47 %) 25.2 L 24.4 L MCV (81.0 - 99.0 FL) 92.4 91.9 MCH (27.0 - 31.0 PG) 30.6 30.2 MCHC (33.0 - 37.0 G/DL) 33.1 32.8 L RDW (11.5 - 14.5 %) 16.5 H 16.9 H Plt Count (130 - 400 /CUMM) 185 204 MPV (7.4 - 10.4 FL) 8.3 7.8 Gran % (42.2 - 75.2 %) 70.6 74.7 Lymphocytes % (20.5 - 51.1 %) 17.0 L 14.5 L Monocytes % (1.7 - 9.3 %) 8.1 7.7 Eosinophils % (0 - 5 %) 3.8 2.6 Basophils % (0.0 - 2.0 %) 0.5 0.5 Absolute Granulocytes (1.4 - 6.5 /CUMM) 4.9 5.2 Absolute Lymphocytes (1.2 - 3.4 /CUMM) 1.2 1.0 L Absolute Monocytes (0.10 - 0.60 /CUMM) 0.6 0.5 Absolute Eosinophils (0.0 - 0.7 /CUMM) 0.3 0.2 Absolute Basophils (0.0 - 0.2 /CUMM) 0 0 /17 /16 051999 Chemistry Sodium (137 - 145 mmol/L) 138 Potassium (3.5 - 5.1 mmol/L) 4.4 Chloride (98 - 107 mmol/L) 104 Carbon Dioxide (22 - 30 mmol/L) 27 Anion Gap (5 - 16) 7 BUN (7 - 17 mg/dL) 38 H Creatinine (0.5 - 1.0 mg/dL) 1.6 H Estimated GFR (>60 ml/min) 31 L BUN/Creatinine Ratio (7 - 25 %) 23.8 Troponin I (< 0.11 ng/ml) 1.20 *H Hematology CBC w Diff NO MAN DIFF REQ WBC (4.8 - 10.8 /CUMM) 8.0 RBC (4.20 - 5.40 /CUMM) 2.49 L Hgb (12.0 - 16.0 G/DL) 7.5 L Hct (37 - 47 %) 22.8 L MCV (81.0 - 99.0 FL) 91.5 MCH (27.0 - 31.0 PG) 30.0 MCHC (33.0 - 37.0 G/DL) 32.7 L RDW (11.5 - 14.5 %) 16.8 H Plt Count (130 - 400 /CUMM) 224 MPV (7.4 - 10.4 FL) 7.8 Gran % (42.2 - 75.2 %) 73.9 Lymphocytes % (20.5 - 51.1 %) 14.6 L Monocytes % (1.7 - 9.3 %) 8.0 Eosinophils % (0 - 5 %) 3.0 Basophils % (0.0 - 2.0 %) 0.5 Absolute Granulocytes (1.4 - 6.5 /CUMM) 5.9 Absolute Lymphocytes (1.2 - 3.4 /CUMM) 1.2 Absolute Monocytes (0.10 - 0.60 /CUMM) 0.6 Absolute Eosinophils (0.0 - 0.7 /CUMM) 0.2 Absolute Basophils (0.0 - 0.2 /CUMM) 0 05/16 1250 Chemistry Troponin I (< 0.11 ng/ml) 1.52 *H Hematology CBC w Diff MAN DIFF ORDERED WBC (4.8 - 10.8 /CUMM) 14.9 H RBC (4.20 - 5.40 /CUMM) 2.90 L Hgb (12.0 - 16.0 G/DL) 8.7 L Hct (37 - 47 %) 26.4 L MCV (81.0 - 99.0 FL) 91.0 MCH (27.0 - 31.0 PG) 30.1 MCHC (33.0 - 37.0 G/DL) 33.1 RDW (11.5 - 14.5 %) 16.6 H Plt Count (130 - 400 /CUMM) 282 MPV (7.4 - 10.4 FL) 8.1 Gran % (42.2 - 75.2 %) 90.5 H Lymphocytes % (20.5 - 51.1 %) 4.2 L Monocytes % (1.7 - 9.3 %) 4.0 Eosinophils % (0 - 5 %) 1.2 Basophils % (0.0 - 2.0 %) 0.1 Absolute Granulocytes (1.4 - 6.5 /CUMM) 13.5 H Absolute Lymphocytes (1.2 - 3.4 /CUMM) 0.6 L Absolute Monocytes (0.10 - 0.60 /CUMM) 0.6 Absolute Eosinophils (0.0 - 0.7 /CUMM) 0.2 Absolute Basophils (0.0 - 0.2 /CUMM) 0 Platelet Estimate (ADEQUATE) VERIFIED BY SMEAR Polychromasia 1+ Basophilic Stippling 1+ Anisocytosis 1+ Imaging/Other Studies: PATIENT: RYAN CHRISTENSEN PRESENT AGE: 76 PATIENT ACCOUNT NO: [id number] : 39 LOCATION: [facility] ORDERING PHYSICIAN: Devonte Topete MD SERVICE DATE: 08/05/17 EXAM TYPE: RAD - XRY-PORTABLE CHEST XRAY EXAMINATION: XR PORTABLE CHEST CLINICAL INFORMATION: Shortness of breath. Fluid overload. COMPARISON: None TECHNIQUE: Portable frontal view of the chest was obtained. FINDINGS: Lung volumes are low. Prominent perihilar interstitial markings with central vascular prominence. Small pleural effusions. No pneumothorax. The cardiomediastinal silhouette is unchanged. IMPRESSION: Small pleural effusions. Increased central vascular prominence with perihilar interstitial prominence suggesting mild interstitial edema. DICTATED BY: Andrea Mondragon MD DATE/TIME DICTATED:08/05/172299 [facility]:TED DATE/TIME TRANSCRIBED:08/05/172299 CONFIDENTIAL, DO NOT COPY WITHOUT APPROPRIATE AUTHORIZATION. <Electronically signed in Other Vendor System> SIGNED BY: Andrea Mondragon MD 08/05 PATIENT: RYAN CHRISTENSEN PRESENT AGE: 76 PATIENT ACCOUNT NO: [id number] : 39 LOCATION: [facility] ORDERING PHYSICIAN: Rubi Clayton MD SERVICE DATE: 08/08/17 EXAM TYPE: RAD - XRY-PORTABLE CHEST XRAY EXAMINATION: XR PORTABLE CHEST CLINICAL INFORMATION: Shortness of breath. COMPARISON: Chest done on 08/07/2017. TECHNIQUE: Portable frontal view of the chest was obtained. FINDINGS: Persistent stable moderate enlargement of the cardiomediastinal silhouette and bilateral small pleural effusions are noted with nonspecific bibasilar airspace disease. Pulmonary venous congestion is also noted. No significant change. IMPRESSION: No significant change since 08/07/2017. DICTATED BY: Eddie Landon MD DATE/TIME DICTATED:08/08/17719 [facility]:TED DATE/TIME TRANSCRIBED:08/08/17719 CONFIDENTIAL, DO NOT COPY WITHOUT APPROPRIATE AUTHORIZATION. <Electronically signed in Other Vendor System> Assessment/Plan Assessment/Recommendations Assessment: 1. Chronic kidney disease. It seems that she has had abnormal renal function for quite some time. She was also found to have nephrotic range proteinuria. It seems that the serum immunology phoresis was negative for monoclonal gammopathy. She is been followed by Dr. Jayson Skinner as an outpatient. Prior to initiating any sort of further serologic workup, it may be helpful to obtain from his office as to what has been done in the past. It also may shed light as to how long she has had proteinuria. In terms of etiologies, this may be an idiopathic glomerulonephritis. In addition, she also has a history of rheumatoid arthritis so that secondary amyloidosis likewise was a possibility. 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 It may be helpful to obtain hepatitis B surface antibody and antigen as well as a hepatitis C antibody. Given nephrotic range proteinuria, she needs to remain on an SALMA inhibitor. 2. Congestive heart failure. Currently remains on diuretics. Would also make sure she is being weighed each and every day and continued furosemide IV. 3. Coronary artery disease. Status post a recent percutaneous coronary intervention at the [facility]. Clearly, even if a biopsy were to be considered, it would not be obtained now. 4. Rheumatoid arthritis. 5. Volume overload Recommendations: 1. Continue IV diuresis. 2. Strict intakes and outputs and daily weights. 3. Would suggest obtaining records from Dr. Skinner's office. 4. Please ensure that she is on a 2 g sodium diet. 5. It may be of interest to obtain hepatitis B surface antibody and antigen as well as a hepatitis see antibody given her possible history of occupational exposure. 6. 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
--- NOTE | 2017-08-09 13:58 | PN- Cardiology ---
Subjective Subjective: Shortness of breath improving. No chest pain. No palpitations. No diaphoresis. No nausea or vomiting. Objective Vital Signs and I&Os Vital Signs Date Time Temp Pulse Resp B/P B/P Pulse O2 O2 Flow FiO2 Mean Ox Delivery Rate 08/09 0833 70 140/94 08/09 0833 70 140/94 08/09 0829 70 140/94 08/09 0800 Nasal 2.0L Cannula 08/09 0647 98.1 70 18 120/66 100 Nasal Cannula 08/09 0000 Nasal 2.0L Cannula 08/08 2227 98.2 74 18 132/66 98 Nasal Cannula 08/08 2034 77 132/66 08/08 1600 95 Nasal 2.0L Cannula Intake & Output 08/09 0800 08/09 0000 08/08 1600 08/08 0808/08 0000 Intake Total 120 360 320 50 138 Output Total 350 550 600 400 901 Balance -230 -190 -280 -350 -763 Intake, IV 0 20 Intake, Oral 120 360 320 50 118 Number 1 Bowel Movements Output, Stool 0 1 Output, Urine 350 550 600 400 900 Patient 166 lb 156 lb 157 lb 156 lb Weight Weight Bed scale Bed scale Measurement Method Physical Exam: Gen: NAD HEENT: normal Lungs: Scattered rales bilaterally, normal resp. effort Heart: RRR, S1, S2, no murmurs Abdomen: Soft, nontender, no masses Extremities: 1+ edema Neuro: Alert and oriented x 3, cranial nerves intact Current Medications: Current Medications Sig/Rick Start time Last Medication Dose Route Stop Time Status Admin Acetaminophen 1,000 MG Q6P PRN 08/06 0445 AC N/A 1 UNIT IV Acetaminophen/ 1 TAB BID PRN 08/06 043 AC Butalbital/Caffeine PO Aspirin 81 MG DAILY 08/06 899 AC 08/09 PO 0832 Calcium/Vitamin D 1 TAB DAILY 08/06 899 AC 08/09 PO 0832 Carvedilol 6.25 MG BID 08/06 899 AC 08/09 PO 0833 Clopidogrel Bisulfate 75 MG DAILY 08/06 899 AC 08/09 PO 0833 Cyclobenzaprine HCl 5 MG TIDPRN PRN 08/06 043 AC PO Docusate Sodium 100 MG DAILY NEEDED PRN 08/07 1900 AC PO Docusate Sodium 100 MG DAILY 08/06 899 AC 08/09 PO 0832 Ergocalciferol 50,000 IU QWED 08/06 09 AC 08/06 PO 0936 Fenofibrate 145 MG DAILY 08/06 09 AC 08/09 PO 0833 Ferrous Sulfate 325 MG DAILY 08/06 09 AC 08/09 PO 0833 Furosemide 40 MG DAILY 08/09 1237 AC 08/09 IV 1303 Furosemide 40 MG DAILY 08/09 1138 DC PO Furosemide 40 MG BID 08/07 2100 DC 08/08 IV 0936 Gabapentin 100 MG Q8 08/06 0600 AC 08/09 PO 1303 Levothyroxine Sodium 0.025 MG DAILY AC 08/06 0700 AC 08/09 PO 0601 Lisinopril 10 MG QAM 08/06 0900 AC 08/09 PO 0833 Metoclopramide HCl 10 MG TID 08/06 09 AC 08/09 PO 1303 Morphine Sulfate 2 MG Q4P PRN 08/06 0445 AC 08/08 IV 2031 Nitroglycerin 0.4 MG DAILY 08/06 09 AC 08/09 TOP 0830 Omeprazole 20 MG DAILY AC 08/06 0700 AC 08/09 PO 0601 Polyethylene Glycol 17 GM DAILY 08/07 1851 AC 08/09 PO 0830 Potassium Chloride 10 MEQ DAILY 08/06 09 AC 08/08 PO 0933 Prednisone 10 MG QAM 08/06 09 AC 08/09 PO 0833 Senna/Docusate Sodium 1 TAB DAILY NEEDED PRN 08/06 0445 AC 08/07 PO 1837 Sertraline HCl 25 MG QAM 08/06 09 AC 08/09 PO 0835 Results Last 48 Hrs of Labs/Mics: Laboratory Tests 08/09/17 1315: Ur Random Creatinine Pending 08/09/17 1305: Hep Bs Antigen Pending, Hep Bs Antibody Pending, Hepatitis C Antibody Pending 08/09/17 0650: Anion Gap 7, Estimated GFR 27 L, BUN/Creatinine Ratio 26.1 H, Magnesium 1.8, CBC w Diff NO MAN DIFF REQ, RBC 2.72 L, MCV 92.4, MCH 30.6, MCHC 33.1, RDW 16.5 H, MPV 8.3, Gran % 70.6, Lymphocytes % 17.0 L, Monocytes % 8.1, Eosinophils % 3.8, Basophils % 0.5, Absolute Granulocytes 4.9, Absolute Lymphocytes 1.2, Absolute Monocytes 0.6, Absolute Eosinophils 0.3, Absolute Basophils 0 08/08/17 0530: Anion Gap 8, Estimated GFR 27 L, Glucose 82, Calcium 8.8, Phosphorus 4.8 H, Magnesium 1.8, Total Bilirubin 0.3, AST 14, ALT 17, Albumin 2.0 L, CBC w Diff NO MAN DIFF REQ, RBC 2.65 L, MCV 91.9, MCH 30.2, MCHC 32.8 L, RDW 16.9 H, MPV 7.8, Gran % 74.7, Lymphocytes % 14.5 L, Monocytes % 7.7, Eosinophils % 2.6, Basophils % 0.5, Absolute Granulocytes 5.2, Absolute Lymphocytes 1.0 L, Absolute Monocytes 0.5, Absolute Eosinophils 0.2, Absolute Basophils 0 Assessment/Plan Assessment/Plan Assessment: 1. Hypertension 2. History of DVT 3. Chronic kidney disease 4. Acute on chronic diastolic heart failure 5. Positive troponin secondary to type II myocardial infarction Plan: * Continue IV Lasix * Monitor input and output with daily weights * Check basic metabolic profile daily Continue telemetry? Yes
[2017-08-09 14:26] VITALS: BP 116/56
[2017-08-09 22:49] VITALS: BP 102/60
[2017-08-10 07:10] VITALS: BP 112/58
[2017-08-10 07:56] VITALS: BP 144/68
[2017-08-10 08:35] LABS: ABSOLUTE BASOPHIL COUNT 0 /CUMM (0.0-0.2); ABSOLUTE EOSINOPHIL COUNT 0.3 /CUMM (0.0-0.7); ABSOLUTE GRANULOCYTE CT 4.1 /CUMM (1.4-6.5); ABSOLUTE LYMPH COUNT 1.1 /CUMM (1.2-3.4); ABSOLUTE MONOCYTE COUNT 0.5 /CUMM (0.10-0.60); BASOPHIL % 0.7 % (0.0-2.0); EOSINOPHIL % 4.9 % (0-5); GRANULOCYTE % 68.8 % (42.2-75.2); HEMATOCRIT 25.9 % (37-47); MEAN CORPUSCULAR HGB CONC 32.5 G/DL (33.0-37.0); MEAN CORPUSCULAR VOLUME 92.2 FL (81.0-99.0); MEAN PLATELET VOLUME 8.2 FL (7.4-10.4); PLATELET COUNT 191 /CUMM (130-400); RBC DISTRIBUTION WIDTH 16.4 % (11.5-14.5); RED BLOOD CELL CT 2.81 /CUMM (4.20-5.40); WHITE BLOOD CELL COUNT 5.9 /CUMM (4.8-10.8)
--- NOTE | 2017-08-10 09:05 | PN- Housestaff ---
See Addendum Subjective Follow-up For: CHF Tele-Events Since Last Visit: sinus rhythm HR 60s, no events Subjective: feels like her breathing is improved, on 2L NC edematous Review of Systems Constitutional: Reports: see HPI. Objective Last 24 Hrs of Vital Signs/I&O Vital Signs Date Time Temp Pulse Resp B/P B/P Pulse O2 O2 Flow FiO2 Mean Ox Delivery Rate 08/10 0800 Nasal 2.0L Cannula 08/10 0757 67 144/68 08/10 0757 67 144/68 08/10 0756 67 144/68 08/10 0710 97.9 100 18 112/58 98 Nasal 2.0L Cannula 08/10 0000 Nasal Cannula 08/09 2249 98.1 66 18 102/60 96 Nasal 2.0L Cannula 08/09 2029 76 130/70 08/09 1426 98.4 68 18 116/56 98 Nasal Cannula Intake & Output 08/10 1600 08/10 0800 08/10 0000 Intake Total 120 360 Output Total 901 1001 Balance -781 -641 Intake, Oral 120 360 Output, Stool 1 1 Output, Urine 900 1000 Patient 71.724 kg Weight Weight Bed scale Measurement Method Physical Exam General Appearance: Alert, Oriented X3, Cooperative, on 2L NC Cardiovascular: Regular Rate, Normal S1, Normal S2, No Murmurs Lungs: diminished bibasilarly Abdomen: Normal Bowel Sounds, Soft, No Tenderness, duff and colostomy Extremities: 2+ b/l LE edema and UE swelling Current Medications: Current Medications Sig/Rick Start time Last Medication Dose Route Stop Time Status Admin Acetaminophen 1,000 MG Q6P PRN 08/065 AC N/A 1 UNIT IV Acetaminophen/ 1 TAB BID PRN 08/06 043 AC Butalbital/Caffeine PO Aspirin 81 MG DAILY 08/06 899 AC 08/10 PO 0757 Calcium/Vitamin D 1 TAB DAILY 08/06 899 AC 08/10 PO 075 Carvedilol 6.25 MG BID 08/06 899 AC 08/10 PO 0757 Clopidogrel Bisulfate 75 MG DAILY 08/06 899 AC 08/10 PO 0757 Cyclobenzaprine HCl 5 MG TIDPRN PRN 08/06 043 AC PO Docusate Sodium 100 MG DAILY NEEDED PRN 08/07 1900 AC PO Docusate Sodium 100 MG DAILY 08/06 09 AC 08/10 PO 0757 Ergocalciferol 50,000 IU QWED 08/06 09 AC 08/06 PO 0936 Fenofibrate 145 MG DAILY 08/06 09 AC 08/10 PO 0757 Ferrous Sulfate 325 MG DAILY 08/06 09 AC 08/10 PO 0757 Furosemide 40 MG DAILY 08/09 1237 AC 08/10 IV 0756 Furosemide 40 MG DAILY 08/09 1138 DC PO Gabapentin 100 MG Q8 08/06 06 AC 08/10 PO 0555 Levothyroxine Sodium 0.025 MG DAILY AC 08/06 07 AC 08/10 PO 0555 Lisinopril 10 MG QAM 08/06 899 AC 08/10 PO 0757 Metoclopramide HCl 10 MG TID 08/06 899 AC 08/10 PO 0757 Morphine Sulfate 4 MG .STK-MED ONE 08/09 1929 DC IM 08/09 193 Morphine Sulfate 2 MG Q4P PRN 08/06 0445 AC 08/09 IV 1932 Nitroglycerin 0.4 MG DAILY 08/06 09 AC 08/10 TOP 0756 Omeprazole 20 MG DAILY AC 08/06 07 AC 08/10 PO 0554 Polyethylene Glycol 17 GM DAILY 08/07 1851 AC 08/10 PO 0756 Potassium Chloride 10 MEQ DAILY 08/06 09 AC 08/10 PO 0756 Prednisone 10 MG QAM 08/06 09 AC 08/10 PO 0757 Senna/Docusate Sodium 1 TAB DAILY NEEDED PRN 08/06 0445 AC 08/07 PO 1837 Sertraline HCl 25 MG QAM 08/06 09 AC 08/10 PO 0757 Last 24 Hrs of Lab/Rubin Results Last 24 Hrs of Labs/Mics: Laboratory Tests 08/10/17 1009: Ur Random Creatinine Pending 08/10/17 1009: Urine Color Pending, Urine Clarity Pending, Urine pH Pending, Ur Specific [place] Pending, Urine Protein Pending, Urine Ketones Pending, Urine Nitrite Pending, Urine Bilirubin Pending, Urine Urobilinogen Pending, Ur Leukocyte Esterase Pending, Ur Microscopic SEDIMENT EXAMINED, Urine RBC Pending, Urine Hemoglobin Pending, Urine Glucose Pending 08/10/17 0630: Anion Gap 5, Estimated GFR 27 L, BUN/Creatinine Ratio 30.0 H, Magnesium 1.8, CBC w Diff NO MAN DIFF REQ, RBC 2.81 L, MCV 92.2, MCH 30.0, MCHC 32.5 L, RDW 16.4 H, MPV 8.2, Gran % 68.8, Lymphocytes % 17.7 L, Monocytes % 7.9, Eosinophils % 4.9, Basophils % 0.7, Absolute Granulocytes 4.1, Absolute Lymphocytes 1.1 L, Absolute Monocytes 0.5, Absolute Eosinophils 0.3, Absolute Basophils 0 08/09/17 1315: Ur Random Creatinine 67.1 08/09/17 1305: Hep Bs Antigen NONREACTIVE, Hep Bs Antibody NONREACTIVE, Hepatitis C Antibody NONREACTIVE Assessment/Plan Assessment: 76 yo F with PMH HTN, HFpEF, history of DVT on Xarelto, history of chronic anemia, TACO on CPAP, anxiety, CKD stage 4, depression, and rheumatoid arthritis presented to the ED with worsening dyspnea and CHF exacerbation CHF exacerbation Continue lasix 40mg IV daily Strict I/Os, daily weights Continue aspirin, plavix, carvedilol, and lisinopril Titrate off supplemental oxygen Elevated troponin with history of CAD s/p recent PCI: Trending down Type II NSTEMI in the setting of anemia and CHF exacerbation Continue aspirin, plavix, carvedilol, and lisinopril History of CKD stage IV Creatinine at baseline Monitor renal function on IV diuretics Nephrotic range proteinuria, given albumin for anasarca and hypoalbuminemia History of DVT Xarelto held for anemia Transfused 1u pRBC Hypothyroidism Continue Synthroid Acute blood loss anemia: Probable GI bleed with negative prior evaluation awaiting outpatient pill cam s/p 1unit pRBC transfusion on 08/07 Trend CBC Anticoagulation held PO PPI and iron supplementation Obtain old records from Dr Skinner office on Friday. Heart Healthy diet with 2g sodium restriction DVT ppx-ALPS only DNR/DNI Problem List: 1. Superficial thrombophlebitis 2. ACS (acute coronary syndrome) 3. Myocardial infarction type 2 4. Symptomatic anemia 5. GI bleed 6. Elevated troponin 7. CHF (congestive heart failure) Pain Ratin Pain Location: n/a Pain Goal: Pain 4 or less Pain Plan: prn Tomorrow's Labs & Rationales: cbc, bep
[2017-08-10 14:08] VITALS: BP 118/56
--- NOTE | 2017-08-10 19:02 | PN- Cardiology ---
Subjective Subjective: The patient reports that her shortness of breath is significantly improved. No palpitations. No chest pain. No diaphoresis. No lightheadedness or dizziness. No nausea or vomiting. Objective Vital Signs and I&Os Vital Signs Date Time Temp Pulse Resp B/P B/P Pulse O2 O2 Flow FiO2 Mean Ox Delivery Rate 08/10 1408 98.6 72 20 118/56 96 Nasal Cannula 08/10 0800 Nasal 2.0L Cannula 08/10 0757 67 144/68 08/10 0757 67 144/68 08/10 0756 67 144/68 08/10 0710 97.9 100 18 112/58 98 Nasal 2.0L Cannula 08/10 0000 Nasal Cannula 08/09 2249 98.1 66 18 102/60 96 Nasal 2.0L Cannula 08/09 2028 76 130/70 Intake & Output 08/10 1600 08/10 0800 08/10 0000 08/09 1600 08/09 0800 08/09 0000 Intake Total 684.5 120 360 734 120 360 Output Total 299 897 8180 450 350 550 Balance 259.5 -781 -641 284 -230 -190 Intake, IV 24.5 14 Intake, Oral 660 120 360 720 120 360 Number 1 Bowel Movements Output, Stool 1 1 Output, Urine 920 650 7159 450 350 550 Patient 158 lb 166 lb Weight Weight Bed scale Measurement Method Physical Exam: Gen: NAD HEENT: normal Lungs: Scattered rales bilaterally, normal resp. effort Heart: RRR, S1, S2, no murmurs Abdomen: Soft, nontender, no masses Extremities: 1+ edema Neuro: Alert and oriented x 3, cranial nerves intact Current Medications: Current Medications Sig/Rick Start time Last Medication Dose Route Stop Time Status Admin Acetaminophen 1,000 MG Q6P PRN 08/06 444 N/A 1 UNIT IV Acetaminophen/ 1 TAB BID PRN 08/06 429 AC Butalbital/Caffeine PO Aspirin 81 MG DAILY 08/06 899 AC 08/10 PO 075 Calcium/Vitamin D 1 TAB DAILY 08/06 899 AC 08/10 PO 075 Carvedilol 6.25 MG BID 08/06 899 AC 08/10 PO 075 Clopidogrel Bisulfate 75 MG DAILY 08/06 899 AC 08/10 PO 075 Cyclobenzaprine HCl 5 MG TIDPRN PRN 05/16 0430 AC PO Docusate Sodium 100 MG DAILY NEEDED PRN 08/07 1900 AC PO Docusate Sodium 100 MG DAILY 08/06 09 AC 08/10 PO 0757 Ergocalciferol 50,000 IU QWED 08/06 09 08/06 PO 0936 Fenofibrate 145 MG DAILY 08/06 09 08/10 PO 0757 Ferrous Sulfate 325 MG DAILY 08/06 09 08/10 PO 0757 Furosemide 40 MG DAILY 08/09 1237 08/10 IV 0756 Gabapentin 100 MG Q8 08/06 06 08/10 PO 1318 Levothyroxine Sodium 0.025 MG DAILY AC 08/06 07 08/10 PO 0555 Lisinopril 10 MG QAM 08/06 899 08/10 PO 0757 Magnesium Oxide 400 MG ONE ONE 08/10 1615 DC 08/10 PO 08/10 1616 1709 Metoclopramide HCl 10 MG TID 08/06 899 08/10 PO 1318 Morphine Sulfate 4 MG .STK-MED ONE 08/09 1929 DC IM 08/09 193 Morphine Sulfate 2 MG Q4P PRN 08/06 0445 08/10 IV 1451 Nitroglycerin 0.4 MG DAILY 08/06 09 08/10 TOP 0756 Omeprazole 20 MG DAILY AC 08/06 07 08/10 PO 0554 Polyethylene Glycol 17 GM DAILY 08/07 1851 08/10 PO 0756 Potassium Chloride 10 MEQ DAILY 08/06 09 08/10 PO 0756 Prednisone 10 MG QA 08/06 899 08/10 PO 0757 Senna/Docusate Sodium 1 TAB DAILY NEEDED PRN 08/06 444 08/07 PO 1837 Sertraline HCl 25 MG QAM 08/06 09 08/10 PO 0757 Results Last 48 Hrs of Labs/Mics: Laboratory Tests 08/10/17 1009: Ur Random Creatinine 24.9 08/10/17 1009: Urine Color YEL, Urine Clarity HAZY H, Urine pH 6.0, Ur Specific [place] 1.025, Urine Protein 100 H, Urine Ketones NEG, Urine Nitrite POS H, Urine Bilirubin NEG, Urine Urobilinogen 0.2, Ur Leukocyte Esterase TRACE H, Ur Microscopic SEDIMENT EXAMINED, Urine RBC RARE, Urine WBC 25-50 H, Ur Epithelial Cells FEW, Urine Bacteria MANY H, Hyaline Casts 1-3 H, Urine Hemoglobin MOD H, Urine Glucose NEG 08/10/17 0630: Anion Gap 5, Estimated GFR 27 L, BUN/Creatinine Ratio 30.0 H, Magnesium 1.8, CBC w Diff NO MAN DIFF REQ, RBC 2.81 L, MCV 92.2, MCH 30.0, MCHC 32.5 L, RDW 16.4 H, MPV 8.2, Gran % 68.8, Lymphocytes % 17.7 L, Monocytes % 7.9, Eosinophils % 4.9, Basophils % 0.7, Absolute Granulocytes 4.1, Absolute Lymphocytes 1.1 L, Absolute Monocytes 0.5, Absolute Eosinophils 0.3, Absolute Basophils 0 08/09/17 1315: Ur Random Creatinine 67.1 08/09/17 1305: Hep Bs Antigen NONREACTIVE, Hep Bs Antibody NONREACTIVE, Hepatitis C Antibody NONREACTIVE 08/09/17 0650: Anion Gap 7, Estimated GFR 27 L, BUN/Creatinine Ratio 26.1 H, Magnesium 1.8, CBC w Diff NO MAN DIFF REQ, RBC 2.72 L, MCV 92.4, MCH 30.6, MCHC 33.1, RDW 16.5 H, MPV 8.3, Gran % 70.6, Lymphocytes % 17.0 L, Monocytes % 8.1, Eosinophils % 3.8, Basophils % 0.5, Absolute Granulocytes 4.9, Absolute Lymphocytes 1.2, Absolute Monocytes 0.6, Absolute Eosinophils 0.3, Absolute Basophils 0 Assessment/Plan Assessment/Plan Assessment: 1. Hypertension 2. History of DVT 3. Chronic kidney disease 4. Acute on chronic diastolic heart failure 5. Positive troponin secondary to type II myocardial infarction Plan: * Continue IV Lasix 40 mg daily * Monitor input and output with daily weights * Check basic metabolic profile daily Continue telemetry? Yes
[2017-08-10 21:57] VITALS: BP 120/62
[2017-08-11 06:52] VITALS: BP 128/58
--- NOTE | 2017-08-11 07:17 | PN- Housestaff ---
Les CURTIS,[facility] 08/11/17 0717: Subjective Follow-up For: CHF Subjective: Ms Corona was seen and examined this morning. She is resting comfortably in bed. She appears very somnolent and had a hard time maintaining mentation over the course of our clinical interaction. States that she had a good night and was very tired. She continues to experience left lower extremity calf pain. Pain rated at a 9 out of 10 in severity worse with movement. Denies any fever, chills, nausea, vomiting. She has had a decreased by mouth intake owing to the fact that she states that she has no appetite. Review of Systems Constitutional: Reports: see HPI. Objective Last 24 Hrs of Vital Signs/I&O Vital Signs Date Time Temp Pulse Resp B/P B/P Pulse O2 O2 Flow FiO2 Mean Ox Delivery Rate 08/11 0948 78 128/58 08/11 0947 78 128/58 08/11 0652 98.0 79 20 128/58 98 08/11 0000 Nasal 2.0L Cannula 08/107 98.3 73 20 120/62 100 Nasal Cannula 08/109 70 134/68 08/10 1408 98.6 72 20 118/56 96 Nasal Cannula Intake & Output 08/11 1600 08/11 0800 08/11 0000 Intake Total 360 320 960 Output Total 850 550 Balance 360 -530 410 Intake, Oral 360 320 960 Number 2 Bowel Movements Output, Urine 850 550 Patient 77.139 kg Weight Physical Exam General Appearance: Oriented X3, Cooperative, No Acute Distress, Lethargic Skin: No Rashes, No Breakdown HEENT: Mucous Membr. moist/pink Cardiovascular: Regular Rate, Normal S1, Normal S2 Lungs: Clear to Auscultation Abdomen: Normal Bowel Sounds, Soft, No Tenderness Neurological: Normal Speech, Cranial Nerves 3-12 NL Extremities: Edema 3+ Vascular: Normal Pulses Current Medications: Current Medications Sig/Rick Start time Last Medication Dose Route Stop Time Status Admin Acetaminophen 1,000 MG Q6P PRN 08/06 444 AC N/A 1 UNIT IV Acetaminophen/ 1 TAB BID PRN 08/06 429 AC Butalbital/Caffeine PO Aspirin 81 MG DAILY 08/06 899 AC 08/11 PO 48 Calcium/Vitamin D 1 TAB DAILY 08/06 899 AC 08/11 PO 947 Carvedilol 6.25 MG BID 08/06 899 AC 08/11 PO 0948 Clopidogrel Bisulfate 75 MG DAILY 08/06 899 AC 08/11 PO 0947 Cyclobenzaprine HCl 5 MG TIDPRN PRN 08/06 0430 AC PO Docusate Sodium 100 MG DAILY NEEDED PRN 08/07 1900 AC PO Docusate Sodium 100 MG DAILY 08/06 899 AC 08/11 PO 0948 Ergocalciferol 50,000 IU QWED 08/06 899 AC 08/06 PO 0936 Fenofibrate 145 MG DAILY 08/06 899 AC 08/11 PO 0947 Ferrous Sulfate 325 MG DAILY 08/06 899 AC 08/11 PO 0947 Furosemide 40 MG DAILY 08/09 1237 AC 08/11 IV 0948 Gabapentin 100 MG Q8 08/06 599 08/11 PO 1455 Levothyroxine Sodium 0.025 MG DAILY AC 08/06 07 AC 08/11 PO 0546 Lisinopril 10 MG QAM 08/06 899 AC 08/11 PO 0947 Magnesium Oxide 400 MG ONE ONE 08/10 1615 DC 08/10 PO 08/10 1616 1709 Metoclopramide HCl 10 MG TID 08/06 899 08/11 PO 0947 Morphine Sulfate 2 MG Q4P PRN 08/06 0445 AC 08/11 IV 0948 Nitroglycerin 0.4 MG DAILY 08/06 899 08/11 TOP 0947 Omeprazole 20 MG DAILY AC 08/06 07 08/11 PO 0546 Polyethylene Glycol 17 GM DAILY 08/07 1851 AC 08/11 PO 0947 Potassium Chloride 10 MEQ DAILY 08/06 899 AC 08/11 PO 0947 Prednisone 10 MG QAM 08/06 899 08/11 PO 0947 Senna/Docusate Sodium 1 TAB DAILY NEEDED PRN 08/06 044 AC 08/07 PO 1837 Sertraline HCl 25 MG QAM 08/06 899 AC 08/11 PO 0947 Last 24 Hrs of Lab/Rubin Results Last 24 Hrs of Labs/Mics: Laboratory Tests 08/11/17 0644: Anion Gap 5, Estimated GFR 31 L, BUN/Creatinine Ratio 35.0 H, Magnesium Pending, CBC w Diff NO MAN DIFF REQ, RBC 2.92 L, MCV 93.0, MCH 30.4, MCHC 32.7 L, RDW 16.2 H, MPV 8.3, Gran % 80.8 H, Lymphocytes % 11.5 L, Monocytes % 4.2, Eosinophils % 3.3, Basophils % 0.2, Absolute Granulocytes 6.9 H, Absolute Lymphocytes 1.0 L, Absolute Monocytes 0.4, Absolute Eosinophils 0.3, Absolute Basophils 0 Assessment/Plan Assessment: 76 yo F with PMH HTN, HFpEF, history of DVT on Xarelto, history of chronic anemia, TACO on CPAP, anxiety, CKD stage 4, depression, and rheumatoid arthritis presented to the ED with worsening dyspnea and CHF exacerbation Vitals at the time of admission: T: 98.7, NC: 86, RR: 30, BP 200/95, 100 on non rebreather. Labs: WBC: 16.2, H/H 10.0/29.9, Platelets 283. Na: 137, K: 4.5, BUN34, CR: 1.3. CHF exacerbation Continue lasix 40mg IV daily Strict I/Os, daily weights Continue aspirin, plavix, carvedilol, and lisinopril Titrate off supplemental oxygen Elevated troponin with history of CAD s/p recent PCI: Trending down Type II NSTEMI in the setting of anemia and CHF exacerbation Continue aspirin, plavix, carvedilol, and lisinopril Lethargy and decreased mentation. We ordered a head CT this morning to rule out any acute pathology. This is been negative for any acute issues. Results shared with patient. Will continue to monitor. Left Calf Pain Doppler ordered to rule out DVT. Negative for VTE. Will continue ALPS. History of CKD stage IV Creatinine at baseline Monitor renal function on IV diuretics Nephrotic range proteinuria, given albumin for anasarca and hypoalbuminemia History of DVT Xarelto held for anemia Transfused 1u pRBC Hypothyroidism Continue Synthroid Acute blood loss anemia: Probable GI bleed with negative prior evaluation awaiting outpatient pill cam s/p 1unit pRBC transfusion on 08/07 Trend CBC PO PPI and iron supplementation Have requested to obtain old records from Dr Skinner. Heart Healthy diet with 2g sodium restriction DVT ppx-ALPS only Heparin SC DNR/DNI Problem List: 1. Superficial thrombophlebitis 2. Fluid overload Pain Ratin Pain Location: Left Calf Pain Goal: Remain pain free Pain Plan: Tylenol PRN Tomorrow's Labs & Rationales: BEP: [facility] CBC: Monitor H/H in the setting of Ping Harden 08/11/17 1339: Attending MD Review Statement Attending Statement Attending MD Statement: examined this patient, discuss w/resident/PA/CAREER EDUCATION TEACHER, agreed w/resident/PA/CAREER EDUCATION TEACHER, discussed with family, reviewed EMR data (avail), discussed with nursing, discussed with case mgmt, reviewed images, amended to note Attending Assessment/Plan: Patient is mild letahrgic today, aao2 oreinted. BUN 56 , cr 1.6 no focal deficit. 2L o2 NC. Obtain head CT. Fluid overlaod multifactorial congestive heart failure and CKD. C/w diuresis. CHF- actue exacerbation of diastolic chf- cont on 40mg iv lasix for chf given the fluid overload state. Cardiology following. CKD stage 3- nephrology on board for her nephrotic range proteinuria. f/u serologies. Repeat spot protein/cr ratio. Obtain previosu records and plan for biospy as per seth. Guide with diuresis hypoalbuminemia- encouraged pt to cont on protein shakes. Type 2 OR- cont on asa and plavix. Anemia mutlifactorial possible CKD and blood loss - got 1 U PRBC this admission. cont to monitor closely. Hb Stable for now
[2017-08-11 07:56] LABS: ABSOLUTE BASOPHIL COUNT 0 /CUMM (0.0-0.2); ABSOLUTE EOSINOPHIL COUNT 0.3 /CUMM (0.0-0.7); ABSOLUTE GRANULOCYTE CT 6.9 /CUMM (1.4-6.5); ABSOLUTE MONOCYTE COUNT 0.4 /CUMM (0.10-0.60); BASOPHIL % 0.2 % (0.0-2.0); EOSINOPHIL % 3.3 % (0-5); GRANULOCYTE % 80.8 % (42.2-75.2); HEMATOCRIT 27.1 % (37-47); MEAN CORPUSCULAR HGB 30.4 PG (27.0-31.0); MEAN CORPUSCULAR HGB CONC 32.7 G/DL (33.0-37.0); MEAN PLATELET VOLUME 8.3 FL (7.4-10.4); PLATELET COUNT 201 /CUMM (130-400); RBC DISTRIBUTION WIDTH 16.2 % (11.5-14.5); RED BLOOD CELL CT 2.92 /CUMM (4.20-5.40); WHITE BLOOD CELL COUNT 8.6 /CUMM (4.8-10.8)
--- NOTE | 2017-08-11 12:55 | CT SCAN REPORT ---
EXAMINATION: CT HEAD WITHOUT CONTRAST CLINICAL INFORMATION: Lethargy, decreased mentation. COMPARISON: None TECHNIQUE: Contiguous axial imaging was performed from the skull base to vertex without intravenous administration of contrast. DLP: 604 mGy-cm FINDINGS: There is moderate to severe confluent hypoattenuation in the bihemispheric white matter compatible with chronic microangiopathy. There is a small area of extension to the high right frontal cortex suggesting an associated small chronic infarct. There is moderate generalized prominence of the ventricles, sulci, and extra-axial CSF spaces. There is no evidence of hemorrhage, edema, mass effect, extra-axial collection, shift of the normally midline structures, or definitive evolving territorial infarct, although a small area of acute brain ischemia could be missed given the underlying chronic findings. No acute osseous abnormality. There is moderate opacification in the posterior left sphenoid air cell with some internal mineralization suggesting chronicity. The visualized nasal cavity is clear with rightward nasal septal deviation and spurring. The nasopharynx is symmetric. The mastoid air cells and middle ear cavities are clear. There have been bilateral ocular lens extractions. No acute soft tissue abnormalities. IMPRESSION: There is no CT evidence of intracranial hemorrhage or evolving territorial infarct. 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 A small area of acute brain ischemia is hard to exclude given the underlying chronic findings and could be better evaluated with MRI if clinical concern persists. Moderate chronic inflammatory disease within the sphenoid sinus.
--- NOTE | 2017-08-11 14:16 | ULTRASOUND REPORT ---
EXAMINATION: US TRIPLEX LOWER EXTREMITY, LEFT CLINICAL INFORMATION: Left lower extremity edema and pain. COMPARISON: 07/19/2017. TECHNIQUE: Color-flow triplex imaging with spectral analysis and compression Doppler were performed on the lower extremity. FINDINGS: Overall, the exam is moderately limited by body habitus and swelling. Respiratory variation, normal compression and augmented flow are noted throughout the lower extremity. The visualized common femoral vein, superficial femoral vein, profunda femoral vein, popliteal vein and midcalf peroneal and posterior tibial venous segments show no evidence of deep venous thrombosis. There is no Daley's cyst. There is soft tissue edema. IMPRESSION: No evidence of deep venous thrombosis involving the lower extremity. Exam limited by body habitus and swelling.
[2017-08-11 14:39] VITALS: BP 106/54
--- NOTE | 2017-08-11 16:41 | Discharge Summary ---
Visit Information Visit Dates Admission Date: 08/06/17 Discharge Date: 08/22/2017 Hospital Course Course Attending Physician: Ping Del Castillo MD Primary Care Physician: Tong CURTIS,[facility] Course: Ms Corona is 76F PMH HTN, HFpEF, history of DVT on Xarelto, history of chronic anemia, TACO on CPAP, anxiety, CKD stage 4, HFpEF/Diastolic CHF, depression, rheumatoid arthritis, history of colonic perforation s/p colostomy was recently discharged from [facility] on 08-02-17 after being treated for acute hypoxic hypercarbic respiratory failure due to fluid overload most likely secondary to CHF exacerbation and colitis which she received a course of IV antibiotics. Who presented to the ED complaining of shortness of breath. This was associated with increasing swelling of both lower extremity and upper extremity. Vital signs on admission: Blood pressure 200/95, pulse 86, temperature 98.7, respiratory rate 30, pulse ox 100 on nonrebreather 100% Labs on admission: CBC was significant for leukocytosis with WBC 16.2, hemoglobin 10, hematocrit 29.9, BMP showed sodium 137, potassium 4.5, BUN 34, creatinine 1.3, troponin I 0.31, BNP 50 4200, urinalysis was positive for WBC 5 10, RBCs 1525 Her last echo was on 07/20/17 and showed LVH with EF 65, stage III diastolic heart failure, mild MR, AR, TR, IL and a dilated vena cava She was admitted to the telemetry service and below is a summarry of the care she received under us. 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 type of stent placed) on aspirin/plavix Patient was admitted to the telemetry service initially in the [facility] as a telemetry hold. She was diuresed with Lasix IV 40 mg BID.Serial troponins and EKG were obtained to rule out ACS. We obtained a cardiology consultation and followed recommendations. Electrolytes routinely monitored and. 08/10/2017 patient was transitioned to IV Lasix 40 mg daily.Patient was also given albumin 12.5 mg and oral protein supplementation were encouraged for the patients hypoalbuminemia. Owing to a falling H&H the patient was transfused 1 unit PRBC. Patient's superficial thrombophlebitis was relieved with warm compresses. On 08/09/2017 we obtained a nephrology consultation this was because the patient' s creatinine kept on rising and it appeared that she did have a 3.5 g proteinuria in June of this year. Immune no pheresis which was negative for any mono clonal gammopathy. She was continued on an SALMA inhibitor. Hepatitis B surface antibody and antigen as well as hepatitis C antibody were ordered. Patient was also started on Neupogen 20,000 units which was to receive every 2 weeks. Patient's home medications including aspirin, Plavix, lisinopril, carvedilol continued. Imaging studies from the entire patient's admission have been included on this report. Patient was maintained on a heart healthy diet. Initially DVT prophylaxis was achieved with ALPS however subcutaneous heparin was started on 08/14/2017. He came into consideration her chronic worsening conditions and more recent repeated hospitalization with poor prognosis and poor baseline status, a family meeting was held and goals of care discussion was conducted. Both her sons were at bedside along with the entire house staff team, the attending, the manager rn case, on a decision was made to discharge her home and pursue hospice care while at home. Therefore we will be discharging her to home and eventual plan is to pursue hospice with no rehospitalizations, or any aggressive treatments/procedures to be done in the future. While in the hospital she was DNR/DNI, we'll pursue hospice after being discharge to home. Allergies: Coded Allergies: Penicillins (SWELLING, RASH, ITCH 07/18/17) cephalexin (From KEFLEX) (ITCHY 07/18/17) chocolate flavor (HEADACHE/MIGRAINE 07/18/17) codeine (ITCH 07/18/17) levofloxacin (From LEVAQUIN) (RASH 07/18/17) oxaprozin (From DAYPRO) (RASH 07/18/17) propoxyphene (UNKNOWN REACTION TO DARVOCET 07/18/17) Pertinent Lab Results: SERVICE DATE: 08/05/17 EXAM TYPE: RAD - XRY-PORTABLE CHEST XRAY EXAMINATION: XR PORTABLE CHEST CLINICAL INFORMATION: Shortness of breath. Fluid overload. COMPARISON: None TECHNIQUE: Portable frontal view of the chest was obtained. FINDINGS: Lung volumes are low. Prominent perihilar interstitial markings with central vascular prominence. Small pleural effusions. No pneumothorax. The cardiomediastinal silhouette is unchanged. IMPRESSION: Small pleural effusions. Increased central vascular prominence with perihilar interstitial prominence suggesting mild interstitial edema. DICTATED BY: Andrea Mondragon MD SERVICE DATE: 08/06/17- EXAM TYPE: US - US-EXT BILAT VENOUS DOPPLER EXAMINATION: US RIGHT AND LEFT UPPER EXTREMITY VENOUS CLINICAL INFORMATION: Bilateral arm pain and swelling COMPARISON: None. TECHNIQUE: Doppler spectral analysis and color flow Doppler imaging was performed of the right and left upper extremity. Compression and augmentation maneuvers were performed. FINDINGS: Right: The right internal jugular vein, subclavian vein, axillary vein, brachial vein, basilic vein, cephalic vein, and visualized forearm veins were well identified and normal. They demonstrate normal compressibility and color fill-in. Left: The left internal jugular vein, subclavian vein, axillary vein, brachial vein, basilic vein and visualized forearm veins were well identified and normal. They demonstrate normal compressibility and color fill-in. Of note, the left cephalic vein in its upper portion contains noncompressible thrombus which is partially occlusive IMPRESSION: No evidence of upper extremity deep vein thrombosis in either upper extremity. There is superficial thrombophlebitis present in the left cephalic vein with partially occlusive thrombus. DICTATED BY: Ld Osorio MD SERVICE DATE: 08/07/17 EXAM TYPE: RAD - XRY-PORTABLE CHEST XRAY XR PORTABLE CHEST CLINICAL INFORMATION: Assess for interval changes. COMPARISON: Chest x-ray 08/05/2017. TECHNIQUE: Portable frontal view of the chest was obtained. FINDINGS: Symmetric lung inflation. Accounting for technical differences there is likely been no significant interval change in size of the small right greater than left pleural effusions with adjacent airspace disease. Central vascular congestion and persistent interstitial prominence again suggesting interstitial edema which is slightly improved. No pneumothorax. Cardiac silhouette is enlarged and unchanged. Osseous structures stable. IMPRESSION: Improving interstitial edema and improving central vascular congestion. Similar appearing small right greater than left pleural effusions with adjacent airspace disease. DICTATED BY: Bubba Singletary MD SERVICE DATE: 08/08/17 EXAM TYPE: RAD - XRY-PORTABLE CHEST XRAY EXAMINATION: XR PORTABLE CHEST CLINICAL INFORMATION: Shortness of breath. COMPARISON: Chest done on 08/07/2017. TECHNIQUE: Portable frontal view of the chest was obtained. FINDINGS: Persistent stable moderate enlargement of the cardiomediastinal silhouette and bilateral small pleural effusions are noted with nonspecific bibasilar airspace disease. Pulmonary venous congestion is also noted. No significant change. IMPRESSION: No significant change since 08/07/2017. DICTATED BY: Eddie Landon MD SERVICE DATE: 08/11/17- EXAM TYPE: CAT - CT HEAD WO IV CONTRAST EXAMINATION: CT HEAD WITHOUT CONTRAST CLINICAL INFORMATION: Lethargy, decreased mentation. COMPARISON: None TECHNIQUE: Contiguous axial imaging was performed from the skull base to vertex without intravenous administration of contrast. DLP: 604 mGy-cm FINDINGS: There is moderate to severe confluent hypoattenuation in the bihemispheric white matter compatible with chronic microangiopathy. There is a small area of extension to the high right frontal cortex suggesting an associated small chronic infarct. There is moderate generalized prominence of the ventricles, sulci, and extra-axial CSF spaces. There is no evidence of hemorrhage, edema, mass effect, extra-axial collection, shift of the normally midline structures, or definitive evolving territorial infarct, although a small area of acute brain ischemia could be missed given the underlying chronic findings. No acute osseous abnormality. There is moderate opacification in the posterior left sphenoid air cell with some internal mineralization suggesting chronicity. The visualized nasal cavity is clear with rightward nasal septal deviation and spurring. The nasopharynx is symmetric. The mastoid air cells and middle ear cavities are clear. There have been bilateral ocular lens extractions. No acute soft tissue abnormalities. IMPRESSION: There is no CT evidence of intracranial hemorrhage or evolving territorial infarct. 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 A small area of acute brain ischemia is hard to exclude given the underlying chronic findings and could be better evaluated with MRI if clinical concern persists. Moderate chronic inflammatory disease within the sphenoid sinus. DICTATED BY: Macario Roldan MD SERVICE DATE: 08/11/17- EXAM TYPE: US - US-UNILATERAL VENOUS DOPPLER EXAMINATION: US TRIPLEX LOWER EXTREMITY, LEFT CLINICAL INFORMATION: Left lower extremity edema and pain. COMPARISON: 07/19/2017. TECHNIQUE: Color-flow triplex imaging with spectral analysis and compression Doppler were performed on the lower extremity. FINDINGS: Overall, the exam is moderately limited by body habitus and swelling. Respiratory variation, normal compression and augmented flow are noted throughout the lower extremity. The visualized common femoral vein, superficial femoral vein, profunda femoral vein, popliteal vein and midcalf peroneal and posterior tibial venous segments show no evidence of deep venous thrombosis. There is no Daley's cyst. There is soft tissue edema. IMPRESSION: No evidence of deep venous thrombosis involving the lower extremity. Exam limited by body habitus and swelling. DICTATED BY: Chele Jimenes MD SERVICE DATE: 08/12/17- EXAM TYPE: RAD - [id number], LEFT EXAMINATION: XR TIBIA AND FIBULA, LEFT CLINICAL INFORMATION: Severe pain in the left lateral tibia. Rule out fracture versus acute pathology. COMPARISON: Contralateral right ankle films from 07/17/2012. TECHNIQUE: AP and lateral views of the left tibia and fibula were obtained on 4 images. FINDINGS: There is diffuse osteopenia. No acute fracture or dislocation is seen. There is, however, soft tissue swelling over the lateral malleolus with slight widening of the lateral ankle mortise. Knee joint is suboptimally assessed but there appears to be at least mild degenerative change in the medial and lateral femoral compartments. Small ovoid bone fragment is seen along the lateral aspect of the patella with indistinct margins, possibly representing a old avulsion injury versus bipartite patella. IMPRESSION: 1. Slight widening of the lateral aspect of the ankle mortise is seen with soft tissue swelling over the lateral malleolus. Findings are suspicious for sequelae of acute injury and further assessment with dedicated left ankle films is recommended. 2. No definite acute fracture or dislocation is seen. 3. Probable old ununited avulsion injury of the lateral patella. 4. Degenerative changes in the knee joint. 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 type of stent placed) on aspirin/plavix Discharge Disposition: home or self care Discharge Instructions General Discharge Information Code Status: Do Not Resucitate/Intubat Patient's Diet: REGULAR Patient's Activity: TOELRATED Follow-Up Instructions/Appts: PLEASE FOLLOW UP WITH YOUR PCP WITHIN ONE WEEK OF DISCHARGE. Medications at Discharge Discharge Medications: Continue taking these medications: Levothyroxine Sodium (Levothyroxine Sodium) 25 MCG TABLET 1 Tablet ORAL DAILY BEFORE BREAKFAST Qty = 30 Comments: Last Taken: 08/22/17 Time: 0600 AM Lisinopril (Lisinopril) 10 MG TABLET 1 Tablet ORAL Every Morning Qty = 30 Comments: Last Taken: 08/22/17 Time: 10 AM Sertraline HCl (Sertraline HCl) 25 MG TABLET 1 Tablet ORAL Every Morning Qty = 30 Comments: Last Taken: 08/22/17 Time: 1000 AM Prednisone (Prednisone) 10 MG TABLET 1 Tablet ORAL Every Morning Qty = 30 Comments: Last Taken: 08/22 Time: 1000 AM Ergocalciferol (Vitamin D2) (Vitamin D2) 50,000 UNIT CAPSULE 1 Capsule ORAL EVERY FRIDAY Qty = 12 Comments: Last Taken: NOT GIVEN Time: Calcium Carbonate/Vitamin D3 (Os-Mehdi 500+D3 Caplet) 500 MG-200 TABLET 1 Tablet ORAL DAILY Comments: NOT TAKEN IN HOSPITAL Sennosides/Docusate Sodium (Senna Plus Tablet) 8.6 MG-50 MG TABLET 1 Tablet ORAL DAILY NEEDED as needed for CONSTIPATION Qty = 30 Instructions: . Comments: NOT GIVEN IN HOSPITAL. Ferrous Gluconate (Ferrous Gluconate) (Unknown Strength) TABLET Unknown Dose ORAL DAILY Comments: Last Taken: 08/22/17 Time: 1000 AM Potassium Chloride (Klor-Con 10) (Unknown Strength) TABLET.ER Unknown Dose ORAL DAILY Comments: NOT GIVEN Metoclopramide HCl (Reglan) 10 MG TABLET 1 Tablet ORAL THREE TIMES DAILY Instructions: 30 minutes before meals and bedtime Comments: Last Taken: 08/22/17 @ 2 PM Time: Butalb/Acetaminophen/Caffeine (Nmxkxk-Sqgmtcrh-Catw 50-325-40) 50 MG-325 MG-40 MG TABLET 1 Tablet ORAL TWICE DAILY as needed for migrain Comments: Last Taken: 08/21/17 Time: 4 PM Cyclobenzaprine HCl (Cyclobenzaprine HCl) 5 MG TABLET 1 Tablet ORAL THREE TIMES A DAY NEEDED as needed for muscle spasms Comments: NOT GIVEN IN HOSPITAL. Fenofibrate,Micronized (Fenofibrate) 200 MG CAPSULE 1 Capsule ORAL DAILY Comments: LAST TAKEN: 08/22/17 @ 9 AM Docusate Sodium (Docusate Sodium) 100 MG CAPSULE 1 Capsule ORAL DAILY Comments: NOT GIVEN IN HOSPITAL. Tramadol HCl (Tramadol HCl) 50 MG TABLET 1 Tablet ORAL EVERY SIX HOURS as needed for PAIN SCALE 7-10 (SEVERE) Qty = 30 Comments: Last Taken: NOT GIVEN Time: Nitroglycerin (Nitroglycerin Patch) 0.4 MG/HOUR PATCH.TD24 1 PATCH On the skin DAILY Qty = 15 Comments: LAST TAKEN: 08/22/17 @ 8 AM Gabapentin (Gabapentin) 100 MG CAPSULE 1 Capsule ORAL EVERY 8 HOURS Qty = 30 Comments: Last Taken: 08/22/17 Time: 1000 AM Aspirin (Aspirin*) 81 MG TAB.CHEW 1 Tablet ORAL DAILY Qty = 30 Comments: Last Taken: 08/22/17 Time: 1000 AM Clopidogrel Bisulfate (Plavix) 75 MG TABLET 1 Tablet ORAL DAILY Qty = 30 Comments: Last Taken: 08/22/17 Time: 1000 AM Carvedilol (Carvedilol) 6.25 MG TABLET 6.25 Milligram ORAL TWICE DAILY Qty = 60 Instructions: . Comments: Last Taken: 08/22/17 Time: 1000 AM Furosemide (Lasix) 40 MG TABLET 40 Milligram ORAL DAILY Qty = 30 Instructions: . Comments: Last Taken: 08/22/17 60 MGS Time: 1000 AM Esomeprazole (Nexium) 40 MG CAPSULE.DR 1 Capsule ORAL DAILY Qty = 30 Instructions: .. Comments: Last Taken: 08/22/17 Time: 1000 AM Copies To: Tong CURTIS,Corrina; Susanne CURTIS,Jayson Billy; Johnny CURTIS,John Nguyen Attending MD Review Statement Documenting Attending: Bassem CURTIS,Miryam Hewitt Other Findings: agree with the above dc summary. pt is being dced home with hospice care . this was decided after discussion with her sons and with patient.
--- NOTE | 2017-08-11 17:29 | PN- Nephrology ---
Assessment/Plan Nephrology Assessment: 1. 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 MARVEL secondary to congestive heart failure - improved 3. Rheumatoid arthritis 4. Anemia Suggestion: 1. Continue diuretic therapy but consider changing to oral diuretics within next 24-48 hours if okay with cardiology 2. 24-hour urine for protein and creatinine 3. Anemia workup was done last month including iron studies, B12 and folate levels - all of which were within normal limits. She may benefit from Procrit therapy which can be done as an outpatient through Dr. Skinner's office Subjective Subjective: Patient feels better today with less shortness of breath. Renal function slowly improving as well. I spoke with Dr. Skinner today who informed me that she carries a diagnosis of renal amyloidosis thought to be secondary to her rheumatoid arthritis and based on a renal biopsy that was done 10 years ago today on 01/12/08. She is known to be nephrotic with 24-hour protein excretion generally close to 5 g and a serum albumin level that runs in the low 2's. Her baseline serum creatinine is apparently in the low to mid 1's. Objective Vital Signs and I&Os Vital Signs Date Time Temp Pulse Resp B/P B/P Pulse O2 O2 Flow FiO2 Mean Ox Delivery Rate 08/11 1439 97.7 67 20 106/54 97 Nasal Cannula 08/11 0948 78 128/58 08/11 0947 78 128/58 08/11 0800 97 Nasal 2.0L Cannula 08/11 0652 98.0 79 20 128/58 98 08/11 0000 Nasal 2.0L Cannula 08/10 2157 98.3 73 20 120/62 100 Nasal Cannula 08/10 2029 70 134/68 Intake & Output 08/11 1600 08/11 0400 08/10 1600 08/10 0400 08/09 1600 08/09 0400 Intake Total 850 960 804.5 360 854 360 Output Total 8226 869 7098 1001 800 550 Balance -600 410 -521.5 -641 54 -190 Intake, IV 20 24.5 14 Intake, Oral 830 960 780 360 840 360 Number 2 1 Bowel Movements Output, Stool 1 1 Output, Urine 1062 481 5031 1000 800 550 Patient 170 lb 158 lb 166 lb Weight Weight Bed scale Measurement Method Physical Exam: General: Well-developed, elderly white female in NAD Skin: No rash or jaundice HEENT: Conjunctivae pale, sclerae anicteric, mucous membranes moist Neck: Without masses or thyromegaly, no supraclavicular or cervical adenopathy Chest: Few scattered rales, no wheezes Heart: Regular rate and rhythm without S3 or rub Abdomen: Soft and nontender without palpable masses or organomegaly; there is a left colostomy in place Extremities: 1+ lower extremity edema without cyanosis Neuro: Awake and alert, no focal findings, no asterixis or myoclonus Results Pertinent Lab Results: Laboratory Tests 08/11 08/10 0644 1009 Chemistry Sodium (137 - 145 mmol/L) 138 Potassium (3.5 - 5.1 mmol/L) 4.9 Chloride (98 - 107 mmol/L) 104 Carbon Dioxide (22 - 30 mmol/L) 29 Anion Gap (5 - 16) 5 BUN (7 - 17 mg/dL) 56 H Creatinine (0.5 - 1.0 mg/dL) 1.6 H Estimated GFR (>60 ml/min) 31 L BUN/Creatinine Ratio (7 - 25 %) 35.0 H Magnesium (1.6 - 2.3 mg/dL) 1.8 Hematology CBC w Diff NO MAN DIFF REQ WBC (4.8 - 10.8 /CUMM) 8.6 RBC (4.20 - 5.40 /CUMM) 2.92 L Hgb (12.0 - 16.0 G/DL) 8.9 L Hct (37 - 47 %) 27.1 L MCV (81.0 - 99.0 FL) 93.0 MCH (27.0 - 31.0 PG) 30.4 MCHC (33.0 - 37.0 G/DL) 32.7 L RDW (11.5 - 14.5 %) 16.2 H Plt Count (130 - 400 /CUMM) 201 MPV (7.4 - 10.4 FL) 8.3 Gran % (42.2 - 75.2 %) 80.8 H Lymphocytes % (20.5 - 51.1 %) 11.5 L Monocytes % (1.7 - 9.3 %) 4.2 Eosinophils % (0 - 5 %) 3.3 Basophils % (0.0 - 2.0 %) 0.2 Absolute Granulocytes (1.4 - 6.5 /CUMM) 6.9 H Absolute Lymphocytes (1.2 - 3.4 /CUMM) 1.0 L Absolute Monocytes (0.10 - 0.60 /CUMM) 0.4 Absolute Eosinophils (0.0 - 0.7 /CUMM) 0.3 Absolute Basophils (0.0 - 0.2 /CUMM) 0 Urines Ur Random Creatinine (mg/dL) 24.9 08/10 08/10 1009 0630 Chemistry Sodium (137 - 145 mmol/L) 137 Potassium (3.5 - 5.1 mmol/L) 5.0 Chloride (98 - 107 mmol/L) 104 Carbon Dioxide (22 - 30 mmol/L) 28 Anion Gap (5 - 16) 5 BUN (7 - 17 mg/dL) 54 H Creatinine (0.5 - 1.0 mg/dL) 1.8 H Estimated GFR (>60 ml/min) 27 L BUN/Creatinine Ratio (7 - 25 %) 30.0 H Magnesium (1.6 - 2.3 mg/dL) 1.8 Hematology CBC w Diff NO MAN DIFF REQ WBC (4.8 - 10.8 /CUMM) 5.9 RBC (4.20 - 5.40 /CUMM) 2.81 L Hgb (12.0 - 16.0 G/DL) 8.4 L Hct (37 - 47 %) 25.9 L MCV (81.0 - 99.0 FL) 92.2 MCH (27.0 - 31.0 PG) 30.0 MCHC (33.0 - 37.0 G/DL) 32.5 L RDW (11.5 - 14.5 %) 16.4 H Plt Count (130 - 400 /CUMM) 191 MPV (7.4 - 10.4 FL) 8.2 Gran % (42.2 - 75.2 %) 68.8 Lymphocytes % (20.5 - 51.1 %) 17.7 L Monocytes % (1.7 - 9.3 %) 7.9 Eosinophils % (0 - 5 %) 4.9 Basophils % (0.0 - 2.0 %) 0.7 Absolute Granulocytes (1.4 - 6.5 /CUMM) 4.1 Absolute Lymphocytes (1.2 - 3.4 /CUMM) 1.1 L Absolute Monocytes (0.10 - 0.60 /CUMM) 0.5 Absolute Eosinophils (0.0 - 0.7 /CUMM) 0.3 Absolute Basophils (0.0 - 0.2 /CUMM) 0 Urines Urine Color (YEL,AMB,STR) YEL Urine Clarity (CLEAR) HAZY H Urine pH (5.0 - 8.0) 6.0 Ur Specific Morton (1.001 - 1.035) 1.025 Urine Protein (NEG,<30 MG/DL) 100 H Urine Ketones (NEG) NEG Urine Nitrite (NEG) POS H Urine Bilirubin (NEG) NEG Urine Urobilinogen (0.1 - 1.0 EU/dl) 0.2 Ur Leukocyte Esterase (NEG) TRACE H Ur Microscopic SEDIMENT EXAMINED Urine RBC (0 - 5 /HPF) RARE Urine WBC (0 - 2 /HPF) 25-50 H Ur Epithelial Cells (NONE,FEW) FEW Urine Bacteria (NEG/NONE) MANY H Hyaline Casts (0/LPF) 1-3 H Urine Hemoglobin (NEG) MOD H Urine Glucose (N MG/DL) NEG 08/09 08/09 08/09 1315 1305 0650 Chemistry Sodium (137 - 145 mmol/L) 141 Potassium (3.5 - 5.1 mmol/L) 4.9 Chloride (98 - 107 mmol/L) 104 Carbon Dioxide (22 - 30 mmol/L) 30 Anion Gap (5 - 16) 7 BUN (7 - 17 mg/dL) 47 H Creatinine (0.5 - 1.0 mg/dL) 1.8 H Estimated GFR (>60 ml/min) 27 L BUN/Creatinine Ratio (7 - 25 %) 26.1 H Magnesium (1.6 - 2.3 mg/dL) 1.8 Hematology CBC w Diff NO MAN DIFF REQ WBC (4.8 - 10.8 /CUMM) 6.9 RBC (4.20 - 5.40 /CUMM) 2.72 L Hgb (12.0 - 16.0 G/DL) 8.3 L Hct (37 - 47 %) 25.2 L MCV (81.0 - 99.0 FL) 92.4 MCH (27.0 - 31.0 PG) 30.6 MCHC (33.0 - 37.0 G/DL) 33.1 RDW (11.5 - 14.5 %) 16.5 H Plt Count (130 - 400 /CUMM) 185 MPV (7.4 - 10.4 FL) 8.3 Gran % (42.2 - 75.2 %) 70.6 Lymphocytes % (20.5 - 51.1 %) 17.0 L Monocytes % (1.7 - 9.3 %) 8.1 Eosinophils % (0 - 5 %) 3.8 Basophils % (0.0 - 2.0 %) 0.5 Absolute Granulocytes (1.4 - 6.5 /CUMM) 4.9 Absolute Lymphocytes (1.2 - 3.4 /CUMM) 1.2 Absolute Monocytes (0.10 - 0.60 /CUMM) 0.6 Absolute Eosinophils (0.0 - 0.7 /CUMM) 0.3 Absolute Basophils (0.0 - 0.2 /CUMM) 0 Serology Hep Bs Antigen (NONREACTIVE) NONREACTIVE Hep Bs Antibody (NONREACTIVE) NONREACTIVE Hepatitis C Antibody (NONREACTIVE) NONREACTIVE Urines Ur Random Creatinine (mg/dL) 67.1
--- NOTE | 2017-08-11 18:22 | PN- Cardiology ---
Subjective Subjective: Feels if she is breathing better. Objective Vital Signs and I&Os Vital Signs Date Time Temp Pulse Resp B/P B/P Pulse O2 O2 Flow FiO2 Mean Ox Delivery Rate 08/11 1439 97.7 67 20 106/54 97 Nasal Cannula 08/11 0948 78 128/58 08/11 0947 78 128/58 08/11 0800 97 Nasal 2.0L Cannula 08/11 0652 98.0 79 20 128/58 98 08/11 0000 Nasal 2.0L Cannula 08/10 2157 98.3 73 20 120/62 100 Nasal Cannula 08/10 2029 70 134/68 Intake & Output 08/11 1600 08/11 0800 08/11 0000 08/10 1600 08/10 0800 08/10 0000 Intake Total 530 320 960 684.5 120 360 Output Total 600 850 550 097 139 1157 Balance -70 -530 410 259.5 -781 -641 Intake, IV 20 24.5 Intake, Oral 510 320 960 660 120 360 Number 2 Bowel Movements Output, Stool 1 1 Output, Urine 600 [phone] [id number] Patient 170 lb 158 lb Weight Weight Bed scale Measurement Method Physical Exam: Well-developed, obese elderly female no acute distress with nasal oxygen in place. Vital signs: See above. Neck: No JVD, no bruits. Lungs: Decreased breath sounds bilaterally. Heart: S1, S2 with soft (grade 1/6) systolic murmur. Abdomen: Soft, nontender, positive bowel sounds. Extremities: No edema. Assessment/Plan Assessment/Plan [id number] w/ hx of anxiety/depression, RA on steroid Rx, hypothyroidism, DVT w/ previous Eliquis Rx, obesity, TACO, HTN, LVH, AR, DD w/ acute on diastolic HF (HFpEF), colonic perforation 2/2 colonoscopy s/p Constance procedure September 2014 complicated by type II HI, MARVEL, bacteremia, etc. & anemia w/ recent adm for symptomatic anemia that improved w/ transfusion of PRBCs complicated by MARVEL on CKD, etc. who improved w/ standard measures, but w/ subsequent cardiac cath at [facility] (07/02/2017) that revealed a 70% LAD stenosis s/p stent to 0% residual stenosis & ELSY-3 flow, again admitted (07/07-07/11/2017) w/ worsening ch weakness, SOB, new bilat LE edema c/w HFpEF & a modest troponin I elevation 2 /2 type II HI who improved w/ standard therapy, but who was again admitted (-08/02/2017) w/ evidence of GI bleeding on dual antiplatelet Rx for her recent coronary stent. She has a colostomy & underwent endoscopy/colonoscopy on 2017 w/o obvious source for bleeding discovered & a plan for OP PillCam, however she returned to the ED again on 08/05/2017 w/ SOB, orthopnea, edema, anemia & modest troponin elevation. Breathing continues to gradually improve. Recommendations: * Continue to diurese with close follow-up of BUN/creatinine, potassium, magnesium, etc. * H/H stable and continue antiplatelet therapy given recent stent. * Continue DVT prophylaxis. Continue telemetry? Yes
[2017-08-12 06:28] VITALS: BP 118/70
--- NOTE | 2017-08-12 07:17 | PN- Housestaff ---
Les CURTIS,[facility] 08/12/17 0716: Subjective Follow-up For: CHF Nephrotic Range proteinuria Subjective: Ms Corona was seen and examined this morning. Resting comfortably in bed. Denies any issues overnight. Continues to endorse left-sided tibial and leg pain. Pain is rated at a 9 out of 10 in severity. Worse with movement and with pressure. Denies any trauma or history of injury. She is making an effort to increase her by mouth intake. Currently on supplemental oxygen and is hoping she can be weaned off soon. Review of Systems Constitutional: Reports: see HPI. Objective Last 24 Hrs of Vital Signs/I&O Vital Signs Date Time Temp Pulse Resp B/P B/P Pulse O2 O2 Flow FiO2 Mean Ox Delivery Rate 08/12 1411 97.8 68 20 116/68 94 Nasal Cannula 08/12 1000 62 100/44 08/12 0945 62 100/44 08/12 0628 97.6 60 18 118/70 98 08/11 2300 97.7 63 18 96 08/11 2122 66 128/72 Intake & Output 08/12 1600 08/12 0800 08/12 0000 Intake Total 430 240 180 Output Total 725 500 Balance -295 -260 180 Intake, IV 30 Intake, Oral 400 240 180 Number 1 1 1 Bowel Movements Output, Urine 725 500 Patient 78.018 kg Weight Physical Exam General Appearance: Alert, Oriented X3 Cardiovascular: Regular Rate, Normal S1, Normal S2 Lungs: Clear to Auscultation Abdomen: Normal Bowel Sounds, Soft, No Tenderness Neurological: Normal Gait, Normal Speech Extremities: No Clubbing, No Cyanosis, No Edema, Tenderness on left lateral tibial area. No erythema, Skin Breakdown, or warmth Vascular: Normal Pulses Current Medications: Current Medications Sig/Rick Start time Last Medication Dose Route Stop Time Status Admin Acetaminophen 1,000 MG Q6P PRN 08/06 0445 08/12 N/A 1 UNIT IV 0431 Acetaminophen/ 1 TAB BID PRN 08/06 0430 08/12 Butalbital/Caffeine PO 1303 Aspirin 81 MG DAILY 08/06 899 AC 08/12 PO 0958 Calcium/Vitamin D 1 TAB DAILY 08/06 899 AC 08/12 PO 0958 Carvedilol 6.25 MG BID 08/06 899 AC 08/11 PO 2122 Clopidogrel Bisulfate 75 MG DAILY 08/06 899 AC 08/12 PO 1026 Cyclobenzaprine HCl 5 MG TIDPRN PRN 08/06 0430 AC PO Docusate Sodium 100 MG DAILY NEEDED PRN 08/07 1900 AC PO Docusate Sodium 100 MG DAILY 08/06 899 08/12 PO 0957 Epoetin Daljit 20,000 UNITS ONCE ONE 08/12 1745 UNVr SC 08/12 1746 Ergocalciferol 50,000 IU QWED 08/06 899 08/06 PO 0936 Fenofibrate 48 MG DAILY 08/13 09 PO Fenofibrate 145 MG DAILY 08/06 09 [place] 08/12 PO 0957 Ferrous Sulfate 325 MG DAILY 08/06 899 AC 08/12 PO 0957 Furosemide 40 MG DAILY 08/09 1237 AC 08/12 IV 1316 Gabapentin 100 MG Q8 08/06 06 08/12 PO 1412 Heparin Sodium 5,000 UNIT Q8 08/11 1630 AC 08/12 (Porcine) SC 1415 Levothyroxine Sodium 0.025 MG DAILY AC 08/06 07 08/12 PO 0602 Lisinopril 10 MG QA 08/06 09 08/11 PO 0947 Metoclopramide HCl 10 MG TID 08/06 899 08/12 PO 1412 Morphine Sulfate 2 MG Q4P PRN 08/06 044 08/11 IV 0948 Nitroglycerin 0.4 MG DAILY 08/06 09 08/11 TOP 0947 Omeprazole 20 MG DAILY AC 08/06 07 08/12 PO 0602 Polyethylene Glycol 17 GM DAILY 08/07 1851 08/12 PO 0958 Potassium Chloride 10 MEQ DAILY 08/06 899 [place] 08/11 PO 0947 Prednisone 10 MG QAM 08/06 09 08/12 PO 0957 Senna/Docusate Sodium 1 TAB DAILY NEEDED PRN 08/06 044 08/07 PO 1837 Sertraline HCl 25 MG QAM 08/06 899 08/12 PO 0957 Last 24 Hrs of Lab/Rubin Results Last 24 Hrs of Labs/Mics: Laboratory Tests 08/12/17 0642: Anion Gap 7, Estimated GFR 29 L, BUN/Creatinine Ratio 31.2 H, CBC w Diff NO MAN DIFF REQ, RBC 2.88 L, MCV 92.5, MCH 29.9, MCHC 32.3 L, RDW 16.2 H, MPV 8.1, Gran % 72.9, Lymphocytes % 17.2 L, Monocytes % 6.2, Eosinophils % 3.2, Basophils % 0.5, Absolute Granulocytes 4.6, Absolute Lymphocytes 1.1 L, Absolute Monocytes 0.4, Absolute Eosinophils 0.2, Absolute Basophils 0 08/11/17 192: Ur Random Creatinine Cancelled, Urine Total Volume Cancelled, Urine Creatinine Cancelled 08/11/171804: Ur Random Creatinine 22.9 Assessment/Plan Assessment: 76 yo F with PMH HTN, HFpEF, history of DVT on Xarelto, history of chronic anemia, TACO on CPAP, anxiety, CKD stage 4, depression, and rheumatoid arthritis presented to the ED with worsening dyspnea and CHF exacerbation Vitals at the time of admission: T: 98.7, AL: 86, RR: 30, BP 200/95, 100 on non rebreather. Labs: WBC: 16.2, H/H 10.0/29.9, Platelets 283. Na: 137, K: 4.5, BUN34, CR: 1.3. CHF exacerbation Continue lasix 40mg IV daily Strict I/Os, daily weights Continue aspirin, plavix, carvedilol, and lisinopril Titrate off supplemental oxygen Incentive Spirometer Hyperkalemia * Level this morning 5.5. * Discontinue supplemental potassium. * Will monitor BEP in a.m. Elevated troponin with history of CAD s/p recent PCI: Trending down Type II NSTEMI in the setting of anemia and CHF exacerbation Continue aspirin, plavix, carvedilol, and lisinopril Lethargy and decreased mentation. * Her lethargy appears to be improving. We ordered a head CT 08/12/2017, to rule out any acute pathology. This is been negative for any acute issues. Will continue to monitor. Left Calf Pain/Left Tibial Bone Pain * Left Leg X-Ray ordered to rule out any fractures Doppler ordered to rule out DVT. Negative for VTE. Will continue ALPS. History of CKD stage IV * 24 hours urine collection ongoing. * Procit 20,000 Every 2 weeks. Dose one 08/12/2017. Creatinine at baseline Monitor renal function on IV diuretics Records from Dr Skinner in chart. 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 Nephrotic range proteinuria, given albumin for anasarca and hypoalbuminemia History of DVT Xarelto held for anemia Transfused 1u pRBC Hypothyroidism Continue Synthroid Acute blood loss anemia: Probable GI bleed with negative prior evaluation awaiting outpatient pill cam s/p 1unit pRBC transfusion on 08/07 Trend CBC PO PPI and iron supplementation Heart Healthy diet with 2g sodium restriction DVT ppx-ALPS only Heparin SC Problem List: 1. Superficial thrombophlebitis 2. Aeekk-ed-ijpupdx kidney injury 3. Nausea & vomiting Pain Ratin Pain Location: Left Tibial Pain Pain Goal: Remain pain free Pain Plan: Tylenol Tomorrow's Labs & Rationales: BEP: monitor electrolytes in the setting of acute illness CBC: Monitor H/H in the setting of acute illness Ping Del Castillo 08/12/17 1053: Attending MD Review Statement Attending Statement Attending MD Statement: examined this patient, discuss w/resident/PA/PUBLICATIONS MANAGER, agreed w/resident/PA/PUBLICATIONS MANAGER, discussed with family, reviewed EMR data (avail), discussed with nursing, discussed with case mgmt, reviewed images, amended to note Attending Assessment/Plan: Patient more awake than yesterday. CT head negative. BP borderline this am. Reassess bp later and if acceptable give iv lasix. Fluid overlaod multifactorial congestive heart failure and CKD. c/w diuresis. CHF- actue exacerbation of diastolic chf- cont on 40mg iv lasix for chf given the fluid overload state. Cardiology following. CKD stage 3- Nephrology on board for her nephrotic range proteinuria. Previosu records suugestive of secondary amyloid nephropathy. hypoalbuminemia- encouraged pt to cont on protein shakes. Type 2 VA- cont on asa and plavix. Anemia mutlifactorial possible CKD/amyloidosis and blood loss s/p 1 U PRBC this admission. Hb Stable for now Rhemuatoid arthriits in past. no active issues.
[2017-08-12 07:57] LABS: ABSOLUTE BASOPHIL COUNT 0 /CUMM (0.0-0.2); ABSOLUTE EOSINOPHIL COUNT 0.2 /CUMM (0.0-0.7); ABSOLUTE GRANULOCYTE CT 4.6 /CUMM (1.4-6.5); ABSOLUTE LYMPH COUNT 1.1 /CUMM (1.2-3.4); ABSOLUTE MONOCYTE COUNT 0.4 /CUMM (0.10-0.60); BASOPHIL % 0.5 % (0.0-2.0); EOSINOPHIL % 3.2 % (0-5); GRANULOCYTE % 72.9 % (42.2-75.2); HEMATOCRIT 26.6 % (37-47); MEAN CORPUSCULAR HGB 29.9 PG (27.0-31.0); MEAN CORPUSCULAR HGB CONC 32.3 G/DL (33.0-37.0); MEAN CORPUSCULAR VOLUME 92.5 FL (81.0-99.0); MEAN PLATELET VOLUME 8.1 FL (7.4-10.4); PLATELET COUNT 181 /CUMM (130-400); RBC DISTRIBUTION WIDTH 16.2 % (11.5-14.5); RED BLOOD CELL CT 2.88 /CUMM (4.20-5.40); WHITE BLOOD CELL COUNT 6.3 /CUMM (4.8-10.8)
[2017-08-12 09:45] VITALS: BP 100/44
--- NOTE | 2017-08-12 13:40 | RADIOLOGY REPORT ---
EXAMINATION: XR TIBIA AND FIBULA, LEFT CLINICAL INFORMATION: Severe pain in the left lateral tibia. Rule out fracture versus acute pathology. COMPARISON: Contralateral right ankle films from 07/17/2012. TECHNIQUE: AP and lateral views of the left tibia and fibula were obtained on 4 images. FINDINGS: There is diffuse osteopenia. No acute fracture or dislocation is seen. There is, however, soft tissue swelling over the lateral malleolus with slight widening of the lateral ankle mortise. Knee joint is suboptimally assessed but there appears to be at least mild degenerative change in the medial and lateral femoral compartments. Small ovoid bone fragment is seen along the lateral aspect of the patella with indistinct margins, possibly representing a old avulsion injury versus bipartite patella. IMPRESSION: 1. Slight widening of the lateral aspect of the ankle mortise is seen with soft tissue swelling over the lateral malleolus. Findings are suspicious for sequelae of acute injury and further assessment with dedicated left ankle films is recommended. 2. No definite acute fracture or dislocation is seen. 3. Probable old ununited avulsion injury of the lateral patella. 4. Degenerative changes in the knee joint.
[2017-08-12 14:11] VITALS: BP 116/68
--- NOTE | 2017-08-12 14:45 | PN- Nephrology ---
Assessment/Plan Nephrology Assessment: 1. 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 MARVEL secondary to congestive heart failure - improved 3. Hyperkalemia 4. Rheumatoid arthritis 5. Anemia Suggestion: 1. Continue diuretic Rx; consider switch to po soon i.e. daily bumetanide 2. If 24-hour urine not feasible, obtain a spot urine for protein to creatinine ratio 3. Would begin appropriate 20,000 units sq every 2 weeks 4. Agree with discontinuing potassium supplementation 5. Would decrease TriCor dose to 48 mg daily (based on her GFR) Subjective Subjective: Patient denies any worsening of shortness of breath but in general does not feel well. Fluid balance remains negative but not markedly so and daily weights are probably inaccurate. She remains quite anemic, renal function relatively stable and serum potassium now elevated. Potassium supplementation appears to have been discontinued. Objective Vital Signs and I&Os Vital Signs Date Time Temp Pulse Resp B/P B/P Pulse O2 O2 Flow FiO2 Mean Ox Delivery Rate 08/12 1411 97.8 68 20 116/68 94 Nasal Cannula 08/12 1000 62 100/44 08/12 0945 62 100/44 08/12 0628 97.6 60 18 118/70 98 08/11 2300 97.7 63 18 96 08/11 2122 66 128/72 Intake & Output 08/12 1600 08/12 0400 08/11 1600 08/11 0400 08/10 1600 08/10 0400 Intake Total 670 180 850 960 804.5 360 Output Total 800 4112 952 4216 1001 Balance -130 180 -600 410 -521.5 -641 Intake, IV 30 20 24.5 Intake, Oral 640 180 830 960 780 360 Number 2 1 2 Bowel Movements Output, Stool 1 1 Output, Urine 800 6275 060 7351 1000 Patient 172 lb 170 lb 158 lb Weight Weight Bed scale Measurement Method Physical Exam: General: Well-developed, elderly white female in NAD Skin: No rash or jaundice HEENT: Conjunctivae pale, sclerae anicteric, mucous membranes moist Neck: Without masses or thyromegaly, no supraclavicular or cervical adenopathy Chest: Decreased breath sounds at bases, no rales, rhonchi or wheezes Heart: Regular rate and rhythm without S3 or rub Abdomen: Soft and nontender without palpable masses or organomegaly; there is a left colostomy in place Extremities: 1-2+ lower extremity edema without cyanosis Neuro: Awake and alert, no focal findings, no asterixis or myoclonus Results Pertinent Lab Results: Laboratory Tests 08/12 08/11 08/11 0642 1925 1805 Chemistry Sodium (137 - 145 mmol/L) 139 Potassium (3.5 - 5.1 mmol/L) 5.5 H Chloride (98 - 107 mmol/L) 100 Carbon Dioxide (22 - 30 mmol/L) 32 H Anion Gap (5 - 16) 7 BUN (7 - 17 mg/dL) 53 H Creatinine (0.5 - 1.0 mg/dL) 1.7 H Estimated GFR (>60 ml/min) 29 L BUN/Creatinine Ratio (7 - 25 %) 31.2 H Hematology CBC w Diff NO MAN DIFF REQ WBC (4.8 - 10.8 /CUMM) 6.3 RBC (4.20 - 5.40 /CUMM) 2.88 L Hgb (12.0 - 16.0 G/DL) 8.6 L Hct (37 - 47 %) 26.6 L MCV (81.0 - 99.0 FL) 92.5 MCH (27.0 - 31.0 PG) 29.9 MCHC (33.0 - 37.0 G/DL) 32.3 L RDW (11.5 - 14.5 %) 16.2 H Plt Count (130 - 400 /CUMM) 181 MPV (7.4 - 10.4 FL) 8.1 Gran % (42.2 - 75.2 %) 72.9 Lymphocytes % (20.5 - 51.1 %) 17.2 L Monocytes % (1.7 - 9.3 %) 6.2 Eosinophils % (0 - 5 %) 3.2 Basophils % (0.0 - 2.0 %) 0.5 Absolute Granulocytes (1.4 - 6.5 /CUMM) 4.6 Absolute Lymphocytes (1.2 - 3.4 /CUMM) 1.1 L Absolute Monocytes (0.10 - 0.60 /CUMM) 0.4 Absolute Eosinophils (0.0 - 0.7 /CUMM) 0.2 Absolute Basophils (0.0 - 0.2 /CUMM) 0 Urines Ur Random Creatinine (mg/dL) Cancelled 22.9 Urine Total Volume Cancelled Urine Creatinine Cancelled 08/11 08/10 0644 1009 Chemistry Sodium (137 - 145 mmol/L) 138 Potassium (3.5 - 5.1 mmol/L) 4.9 Chloride (98 - 107 mmol/L) 104 Carbon Dioxide (22 - 30 mmol/L) 29 Anion Gap (5 - 16) 5 BUN (7 - 17 mg/dL) 56 H Creatinine (0.5 - 1.0 mg/dL) 1.6 H Estimated GFR (>60 ml/min) 31 L BUN/Creatinine Ratio (7 - 25 %) 35.0 H Magnesium (1.6 - 2.3 mg/dL) 1.8 Hematology CBC w Diff NO MAN DIFF REQ WBC (4.8 - 10.8 /CUMM) 8.6 RBC (4.20 - 5.40 /CUMM) 2.92 L Hgb (12.0 - 16.0 G/DL) 8.9 L Hct (37 - 47 %) 27.1 L MCV (81.0 - 99.0 FL) 93.0 MCH (27.0 - 31.0 PG) 30.4 MCHC (33.0 - 37.0 G/DL) 32.7 L RDW (11.5 - 14.5 %) 16.2 H Plt Count (130 - 400 /CUMM) 201 MPV (7.4 - 10.4 FL) 8.3 Gran % (42.2 - 75.2 %) 80.8 H Lymphocytes % (20.5 - 51.1 %) 11.5 L Monocytes % (1.7 - 9.3 %) 4.2 Eosinophils % (0 - 5 %) 3.3 Basophils % (0.0 - 2.0 %) 0.2 Absolute Granulocytes (1.4 - 6.5 /CUMM) 6.9 H Absolute Lymphocytes (1.2 - 3.4 /CUMM) 1.0 L Absolute Monocytes (0.10 - 0.60 /CUMM) 0.4 Absolute Eosinophils (0.0 - 0.7 /CUMM) 0.3 Absolute Basophils (0.0 - 0.2 /CUMM) 0 Urines Ur Random Creatinine (mg/dL) 24.9 08/10 08/10 1009 0630 Chemistry Sodium (137 - 145 mmol/L) 137 Potassium (3.5 - 5.1 mmol/L) 5.0 Chloride (98 - 107 mmol/L) 104 Carbon Dioxide (22 - 30 mmol/L) 28 Anion Gap (5 - 16) 5 BUN (7 - 17 mg/dL) 54 H Creatinine (0.5 - 1.0 mg/dL) 1.8 H Estimated GFR (>60 ml/min) 27 L BUN/Creatinine Ratio (7 - 25 %) 30.0 H Magnesium (1.6 - 2.3 mg/dL) 1.8 Hematology CBC w Diff NO MAN DIFF REQ WBC (4.8 - 10.8 /CUMM) 5.9 RBC (4.20 - 5.40 /CUMM) 2.81 L Hgb (12.0 - 16.0 G/DL) 8.4 L Hct (37 - 47 %) 25.9 L MCV (81.0 - 99.0 FL) 92.2 MCH (27.0 - 31.0 PG) 30.0 MCHC (33.0 - 37.0 G/DL) 32.5 L RDW (11.5 - 14.5 %) 16.4 H Plt Count (130 - 400 /CUMM) 191 MPV (7.4 - 10.4 FL) 8.2 Gran % (42.2 - 75.2 %) 68.8 Lymphocytes % (20.5 - 51.1 %) 17.7 L Monocytes % (1.7 - 9.3 %) 7.9 Eosinophils % (0 - 5 %) 4.9 Basophils % (0.0 - 2.0 %) 0.7 Absolute Granulocytes (1.4 - 6.5 /CUMM) 4.1 Absolute Lymphocytes (1.2 - 3.4 /CUMM) 1.1 L Absolute Monocytes (0.10 - 0.60 /CUMM) 0.5 Absolute Eosinophils (0.0 - 0.7 /CUMM) 0.3 Absolute Basophils (0.0 - 0.2 /CUMM) 0 Urines Urine Color (YEL,AMB,STR) YEL Urine Clarity (CLEAR) HAZY H Urine pH (5.0 - 8.0) 6.0 Ur Specific Alfred (1.001 - 1.035) 1.025 Urine Protein (NEG,<30 MG/DL) 100 H Urine Ketones (NEG) NEG Urine Nitrite (NEG) POS H Urine Bilirubin (NEG) NEG Urine Urobilinogen (0.1 - 1.0 EU/dl) 0.2 Ur Leukocyte Esterase (NEG) TRACE H Ur Microscopic SEDIMENT EXAMINED Urine RBC (0 - 5 /HPF) RARE Urine WBC (0 - 2 /HPF) 25-50 H Ur Epithelial Cells (NONE,FEW) FEW Urine Bacteria (NEG/NONE) MANY H Hyaline Casts (0/LPF) 1-3 H Urine Hemoglobin (NEG) MOD H Urine Glucose (N MG/DL) NEG
--- NOTE | 2017-08-12 18:57 | PN- Cardiology ---
Subjective Subjective: Breathing continues to slowly improve. Objective Vital Signs and I&Os Vital Signs Date Time Temp Pulse Resp B/P B/P Pulse O2 O2 Flow FiO2 Mean Ox Delivery Rate 08/12 1411 97.8 68 20 116/68 94 Nasal Cannula 08/12 1000 62 100/44 08/12 0945 62 100/44 08/12 0628 97.6 60 18 118/70 98 08/11 2300 97.7 63 18 96 08/11 2122 66 128/72 Intake & Output 08/12 1600 08/12 0808/12 0000 08/11 1600 08/11 0808/11 0000 Intake Total 430 240 180 530 320 960 Output Total 725 500 600 850 550 Balance -295 -260 180 -70 -530 410 Intake, IV 30 20 Intake, Oral 400 240 180 510 320 960 Number 1 1 1 2 Bowel Movements Output, Urine 725 500 600 850 550 Patient 172 lb 170 lb Weight Physical Exam: Well-developed, overweight elderly female in no acute distress with nasal oxygen in place. Vital signs: See above. Neck: No JVD, no bruits. Lungs: Decreased breath sounds bilaterally. Heart: S1, S2 with grade 1/6 systolic murmur. No gallop or rub. Abdomen: Soft, nontender, positive bowel sounds. Extremities: Trace edema on right. Trace to mild edema on left. Current Medications: Current Medications Sig/Rick Start time Last Medication Dose Route Stop Time Status Admin Acetaminophen 1,000 MG Q6P PRN 08/06 0445 AC 08/12 N/A 1 UNIT IV 0431 Acetaminophen/ 1 TAB BID PRN 08/06 429 AC 08/12 Butalbital/Caffeine PO 1303 Aspirin 81 MG DAILY 08/06 899 AC 08/12 PO 0958 Calcium/Vitamin D 1 TAB DAILY 08/06 899 AC 08/12 PO 0958 Carvedilol 6.25 MG BID 08/06 899 AC 08/11 PO 2122 Clopidogrel Bisulfate 75 MG DAILY 08/06 899 AC 08/12 PO 1026 Cyclobenzaprine HCl 5 MG TIDPRN PRN 08/06 429 AC 08/12 PO 1747 Docusate Sodium 100 MG DAILY NEEDED PRN 08/07 1900 AC PO Docusate Sodium 100 MG DAILY 08/06 899 AC 08/12 PO 0957 Epoetin Daljit 20,000 UNITS ONCE ONE 08/12 1745 [facility] 08/12 1746 Ergocalciferol 50,000 IU QWED 08/06 09 AC 08/06 PO 0936 Fenofibrate 48 MG DAILY 08/13 0900 PO Fenofibrate 145 MG DAILY 08/06 09 [place] 08/12 PO 0957 Ferrous Sulfate 325 MG DAILY 08/06 09 08/12 PO 0957 Furosemide 40 MG DAILY 08/09 1237 AC 08/12 IV 1316 Gabapentin 100 MG Q8 08/06 06 08/12 PO 1412 Heparin Sodium 5,000 UNIT Q8 08/11 1630 08/12 (Porcine) SC 1415 Levothyroxine Sodium 0.025 MG DAILY AC 08/06 07 08/12 PO 0602 Lisinopril 10 MG QAM 08/06 09 08/11 PO 0947 Metoclopramide HCl 10 MG TID 08/06 899 08/12 PO 1412 Morphine Sulfate 2 MG Q4P PRN 08/06 0445 08/11 IV 0948 Nitroglycerin 0.4 MG DAILY 08/06 09 08/11 TOP 0947 Omeprazole 20 MG DAILY AC 08/06 07 08/12 PO 0602 Polyethylene Glycol 17 GM DAILY 08/07 1851 08/12 PO 0958 Potassium Chloride 10 MEQ DAILY 08/06 09 [place] 08/11 PO 0947 Prednisone 10 MG QAM 08/06 0900 08/12 PO 0957 Senna/Docusate Sodium 1 TAB DAILY NEEDED PRN 08/06 0445 08/07 PO 1837 Sertraline HCl 25 MG QAM 08/06 899 08/12 PO 0957 Results Last 48 Hrs of Labs/Mics: Laboratory Tests 08/12/17 0642: Anion Gap 7, Estimated GFR 29 L, BUN/Creatinine Ratio 31.2 H, CBC w Diff NO MAN DIFF REQ, RBC 2.88 L, MCV 92.5, MCH 29.9, MCHC 32.3 L, RDW 16.2 H, MPV 8.1, Gran % 72.9, Lymphocytes % 17.2 L, Monocytes % 6.2, Eosinophils % 3.2, Basophils % 0.5, Absolute Granulocytes 4.6, Absolute Lymphocytes 1.1 L, Absolute Monocytes 0.4, Absolute Eosinophils 0.2, Absolute Basophils 0 08/11/171924: Ur Random Creatinine Cancelled, Urine Total Volume Cancelled, Urine Creatinine Cancelled 08/11/17 1805: Ur Random Creatinine 22.9 08/11/17 0644: Anion Gap 5, Estimated GFR 31 L, BUN/Creatinine Ratio 35.0 H, Magnesium 1.8, CBC w Diff NO MAN DIFF REQ, RBC 2.92 L, MCV 93.0, MCH 30.4, MCHC 32.7 L, RDW 16.2 H, MPV 8.3, Gran % 80.8 H, Lymphocytes % 11.5 L, Monocytes % 4.2, Eosinophils % 3.3, Basophils % 0.2, Absolute Granulocytes 6.9 H, Absolute Lymphocytes 1.0 L, Absolute Monocytes 0.4, Absolute Eosinophils 0.3, Absolute Basophils 0 Recent Imaging Studies: X-ray left tibia and fibula 08/12/2017: 1. Slight widening of the lateral aspect of the ankle mortise is seen with soft tissue swelling over the lateral malleolus. Findings are suspicious for sequelae of acute injury and further assessment with dedicated left ankle films is recommended. 2. No definite acute fracture or dislocation is seen. 3. Probable old ununited avulsion injury of the lateral patella. 4. Degenerative changes in the knee joint. Assessment/Plan Assessment/Plan [id number] w/ hx of anxiety/depression, RA on steroid Rx, hypothyroidism, DVT w/ previous Eliquis Rx, obesity, TACO, HTN, LVH, AR, DD w/ acute on diastolic HF (HFpEF), colonic perforation 2/2 colonoscopy s/p Constance procedure September 2014 complicated by type II HI, MARVEL, bacteremia, etc. & ch anemia w/ recent adm for symptomatic anemia that improved w/ transfusion of PRBCs complicated by MARVEL on CKD, etc. who improved w/ standard measures, but w/ subsequent cardiac cath at [facility] (07/02/2017) that revealed a 70% LAD stenosis s/p stent to 0% residual stenosis & ELSY-3 flow, again admitted (07/07-07/11/2017) w/ worsening ch weakness, SOB, new bilat LE edema c/w HFpEF & a modest troponin I elevation 2 /2 type II HI who improved w/ standard therapy, but who was again admitted (-08/02/2017) w/ evidence of GI bleeding on dual antiplatelet Rx for her recent coronary stent. She has a colostomy & underwent endoscopy/colonoscopy on 2017 w/o obvious source for bleeding discovered & a plan for OP PillCam, however she returned to the ED again on 08/05/2017 w/ SOB, orthopnea, edema, anemia & modest troponin elevation. Breathing continues to gradually improve. Recommendations: * Continue to diurese with close follow-up of BUN/creatinine, potassium, magnesium, etc. * H/H stable and continue antiplatelet therapy given recent stent. * Continue DVT prophylaxis. Continue telemetry? Yes
[2017-08-12 22:52] VITALS: BP 118/50
[2017-08-13 06:39] VITALS: BP 140/80
--- NOTE | 2017-08-13 07:44 | PN- Housestaff ---
Сергей Morfin 08/13/17 0744: Subjective Follow-up For: -CHF -Nephrotic range preteinuria Subjective: I have seen and examined the patient today morning. she continues ot have some pain on the left side. Other than that no other complaints. Review of Systems Constitutional: Reports: see HPI. Objective Last 24 Hrs of Vital Signs/I&O Vital Signs Date Time Temp Pulse Resp B/P B/P Pulse O2 O2 Flow FiO2 Mean Ox Delivery Rate 08/13 1520 98.8 62 20 118/48 96 Nasal Cannula 08/13 1241 98.1 68 18 130/62 96 Nasal 2.0L Cannula 08/13 0943 76 180/70 08/13 0639 98.3 78 20 140/80 90 Nasal 2.0L Cannula 08/13 0000 Nasal 1.0L Cannula 08/12 2252 98.2 70 22 118/50 93 Nasal 2.0L Cannula 08/12 2035 70 118/50 Intake & Output 08/13 1600 08/13 0800 08/13 0000 Intake Total 480 120 270 Output Total 600 450 1 Balance -120 -330 269 Intake, IV 120 20 Intake, Oral 360 120 250 Output, Stool 1 Output, Urine 600 450 Patient 75.381 kg Weight Weight Bed scale Measurement Method Physical Exam General Appearance: Alert, Oriented X3, Cooperative Cardiovascular: Normal S1, Normal S2, No Murmurs Lungs: Clear to Auscultation, Normal Air Movement Abdomen: Normal Bowel Sounds, Soft, No Tenderness Extremities: No Clubbing, No Cyanosis, No Edema, Normal Pulses Current Medications: Current Medications Sig/Rick Start time Last Medication Dose Route Stop Time Status Admin Acetaminophen 1,000 MG Q6P PRN 08/06 044 08/13 N/A 1 UNIT IV 0959 Acetaminophen/ 1 TAB BID PRN 08/06 429 08/12 Butalbital/Caffeine PO 1303 Aspirin 81 MG DAILY 08/06 PO 0942 Calcium/Vitamin D 1 TAB DAILY 08/06 899 AC 08/13 PO 0942 Carvedilol 6.25 MG BID 08/06 899 AC 08/13 PO 0943 Clopidogrel Bisulfate 75 MG DAILY 08/06 899 AC 08/13 PO 0943 Cyclobenzaprine HCl 5 MG TIDPRN PRN 08/06 429 08/12 PO 1747 Docusate Sodium 100 MG DAILY NEEDED PRN 08/07 1900 AC PO Docusate Sodium 100 MG DAILY 08/06 899 AC 08/13 PO 0942 Epoetin Daljit 20,000 UNITS ONCE ONE 08/12 1744 DC 08/12 SC 08/12 Ergocalciferol 50,000 IU QWED 08/06 899 AC 08/13 PO 0942 Fenofibrate 48 MG DAILY 08/13 09 AC 08/13 PO 0943 Ferrous Sulfate 325 MG DAILY 08/06 899 AC 08/13 PO 0943 Furosemide 40 MG DAILY 08/09 1237 AC 08/13 IV 0944 Gabapentin 100 MG Q8 08/06 06 AC 08/13 PO 1354 Heparin Sodium 5,000 UNIT Q8 08/11 1630 AC 08/13 (Porcine) SC 1354 Levothyroxine Sodium 0.025 MG DAILY AC 08/06 07 AC 08/13 PO 0554 Lisinopril 10 MG QAM 08/06 09 AC 08/13 PO 0943 Metoclopramide HCl 10 MG TID 08/06 899 08/13 PO 1354 Morphine Sulfate 2 MG Q4P PRN 08/06 044 08/12 IV 2044 Nitroglycerin 0.4 MG DAILY 08/06 899 08/13 TOP 0940 Omeprazole 20 MG DAILY AC 08/06 07 08/13 PO 0554 Polyethylene Glycol 17 GM DAILY 08/07 1851 08/13 PO 0939 Prednisone 10 MG QAM 08/06 09 08/13 PO 0943 Senna/Docusate Sodium 1 TAB DAILY NEEDED PRN 08/06 444 08/07 PO 1837 Sertraline HCl 25 MG QAM 08/06 09 08/13 PO 0943 Last 24 Hrs of Lab/Rubin Results Last 24 Hrs of Labs/Mics: Laboratory Tests 08/13/17 0852: Anion Gap 5, Estimated GFR 29 L, BUN/Creatinine Ratio 31.2 H, CBC w Diff NO MAN DIFF REQ, RBC 3.13 L, MCV 91.9, MCH 29.9, MCHC 32.5 L, RDW 15.6 H, MPV 7.8, Gran % 76.3 H, Lymphocytes % 15.6 L, Monocytes % 5.2, Eosinophils % 2.8, Basophils % 0.1, Absolute Granulocytes 5.9, Absolute Lymphocytes 1.2, Absolute Monocytes 0.4, Absolute Eosinophils 0.2, Absolute Basophils 0 08/13/17 0310: Ur Random Creatinine 18.0, Urine Total Volume 2030 H, Urine Creatinine 0.4 L, Ur Total Protein 24 Hr 5663.7 H Lines/Diet/Fluids Restraints: none Assessment/Plan Assessment: 76 yo F with PMH HTN, HFpEF, history of DVT on Xarelto, history of chronic anemia, TACO on CPAP, anxiety, CKD stage 4, depression, and rheumatoid arthritis presented to the ED with worsening dyspnea and CHF exacerbation Problem list alongwith assessment and plan : CHF exacerbation Continue lasix 40mg IV daily Strict I/Os, daily weights Continue aspirin, plavix, carvedilol, and lisinopril Titrate off supplemental oxygen Incentive Spirometer Hyperkalemia * Level this morning 5.0 * ct to monitor BEP in a.m. Elevated troponin with history of CAD s/p recent PCI: * Trended down * Continue aspirin, plavix, carvedilol, and lisinopril Lethargy and decreased mentation. * Her lethargy appears to be improving. * CT head 08/12/2017,negative for any acute issues. Left Calf Pain/Left Tibial Bone Pain * Left Leg X-Ray showed 1. Slight widening of the lateral aspect of the ankle mortise is seen with soft tissue swelling over the lateral malleolus. Findings are suspicious for sequelae of acute injury and further assessment with dedicated left ankle films is recommended.2. No definite acute fracture or dislocation is seen.3. Probable old ununited avulsion injury of the lateral patella.4. Degenerative changes in the knee joint. * Doppler Negative for VTE. * Continue ALPS. * Ct pain mx * OT consult. History of CKD stage IV * 24 hours urine collection ongoing. * Procit 20,000 Every 2 weeks. Dose one 08/12/2017. 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 Nephrotic range proteinuria, given albumin for anasarca and hypoalbuminemia History of DVT * Xarelto held for anemia * s/p transfused 1u pRBC Hypothyroidism * Continue Synthroid Acute blood loss anemia: * Probable GI bleed with negative prior evaluation awaiting outpatient pill cam * s/p 1unit pRBC transfusion on 08/07 * ct PO PPI and iron supplementation. Palliative care consult. * placed with Dr husain, awaited for tmrw. Heart Healthy diet with 2g sodium restriction DVT ppx-ALPS only Heparin SC Problem List: 1. Superficial thrombophlebitis 2. Leukocytosis 3. ACS (acute coronary syndrome) 4. Diverticulosis 5. Myocardial infarction type 2 Pain Ratin Pain Location: leg Pain Goal: Remain pain free Pain Plan: current mx Tomorrow's Labs & Rationales: bep, cbc AbundioPing 08/13/17 1240: Attending MD Review Statement Attending Statement Attending MD Statement: examined this patient, discuss w/resident/PA/ROUTE CARRIER, agreed w/resident/PA/ROUTE CARRIER, discussed with family, reviewed EMR data (avail), discussed with nursing, discussed with case mgmt, reviewed images, amended to note Attending Assessment/Plan: Patient awake , alert. She has fluid overload, pitting edema+. Fluid overlaod multifactorial congestive heart failure and CKD. c/w diuresis, iv lasix. CHF- acute exacerbation of diastolic chf- cont on 40mg iv lasix for chf given the fluid overload state. Cardiology following. MARVEL on CKD stage 3- Nephrology on board for her nephrotic range proteinuria. Previous records suugestive of secondary amyloid nephropathy in setting of RA. hypoalbuminemia- encouraged pt to cont on protein shakes. Type 2 MN- cont on asa and plavix. Anemia mutlifactorial possible CKD/amyloidosis/RA and blood loss s/p 1 U PRBC this admission. Hb Stable for now Rhemuatoid arthriits in past. no active issues. Consider palliative care consult, multiple hospitalsitiaon in past. Goals of care discussion. SW on board. Discontinue telemetry and transfer patient to gen/med.
[2017-08-13 09:04] LABS: ABSOLUTE BASOPHIL COUNT 0 /CUMM (0.0-0.2); ABSOLUTE EOSINOPHIL COUNT 0.2 /CUMM (0.0-0.7); ABSOLUTE GRANULOCYTE CT 5.9 /CUMM (1.4-6.5); ABSOLUTE LYMPH COUNT 1.2 /CUMM (1.2-3.4); ABSOLUTE MONOCYTE COUNT 0.4 /CUMM (0.10-0.60); BASOPHIL % 0.1 % (0.0-2.0); EOSINOPHIL % 2.8 % (0-5); GRANULOCYTE % 76.3 % (42.2-75.2); HEMATOCRIT 28.8 % (37-47); MEAN CORPUSCULAR HGB 29.9 PG (27.0-31.0); MEAN CORPUSCULAR HGB CONC 32.5 G/DL (33.0-37.0); MEAN CORPUSCULAR VOLUME 91.9 FL (81.0-99.0); MEAN PLATELET VOLUME 7.8 FL (7.4-10.4); PLATELET COUNT 222 /CUMM (130-400); RBC DISTRIBUTION WIDTH 15.6 % (11.5-14.5); RED BLOOD CELL CT 3.13 /CUMM (4.20-5.40); WHITE BLOOD CELL COUNT 7.7 /CUMM (4.8-10.8)
--- NOTE | 2017-08-13 12:21 | PN- Cardiology ---
Subjective Subjective: Continues to slowly improve. No new complaints. Objective Vital Signs and I&Os Vital Signs Date Time Temp Pulse Resp B/P B/P Pulse O2 O2 Flow FiO2 Mean Ox Delivery Rate 08/13 0943 76 180/70 08/13 0639 98.3 78 20 140/80 90 Nasal 2.0L Cannula 08/13 0000 Nasal 1.0L Cannula 08/12 2252 98.2 70 22 118/50 93 Nasal 2.0L Cannula 08/12 2035 70 118/50 08/12 1600 Nasal 1.0L Cannula 08/12 1411 97.8 68 20 116/68 94 Nasal Cannula Intake & Output 08/13 1600 08/13 0800 08/13 0000 08/12 1600 08/12 0800 08/12 0000 Intake Total 120 270 430 240 180 Output Total 450 1 725 500 Balance -330 269 -295 -260 180 Intake, IV 20 30 Intake, Oral 120 250 400 240 180 Number 1 1 1 Bowel Movements Output, Stool 1 Output, Urine 450 725 500 Patient 166 lb 172 lb Weight Weight Bed scale Measurement Method Physical Exam: Well-developed, well-nourished elderly female in no acute distress. Vital signs: See above. HEENT: Normocephalic, atraumatic, EOMI, slightly dry mucous membranes. Neck: No JVD, no bruits. Lungs: Clear to auscultation bilaterally. Heart: S1, S2 with grade 1-2/6 systolic murmur. No gallop or rub. Abdomen: Soft, nontender, positive bowel sounds. Extremities: No edema. Assessment/Plan Assessment/Plan [id number] w/ hx of anxiety/depression, RA on ch steroid Rx, hypothyroidism, DVT w/ previous Eliquis Rx, obesity, TACO, HTN, LVH, AR, DD w/ acute on ch diastolic HF (HFpEF), colonic perforation 2/2 colonoscopy s/p Constance procedure September 2014 complicated by type II TN, MARVEL, bacteremia, etc. & anemia w/ recent adm for symptomatic anemia that improved w/ transfusion of PRBCs complicated by MARVEL on CKD, etc. who improved w/ standard measures, but w/ subsequent cardiac cath at [facility] (07/02/2017) that revealed a 70% LAD stenosis s/p stent to 0% residual stenosis & ELSY-3 flow, again admitted (07/07-07/11/2017) w/ worsening ch weakness, SOB, new bilat LE edema c/w HFpEF & a modest troponin I elevation 2 /2 type II TN who improved w/ standard therapy, but who was again admitted (-08/02/2017) w/ evidence of GI bleeding on dual antiplatelet Rx for her recent coronary stent. She has a colostomy & underwent endoscopy/colonoscopy on 2017 w/o obvious source for bleeding discovered & a plan for OP PillCam, however she returned to the ED again on 08/05/2017 w/ SOB, orthopnea, edema, anemia & modest troponin elevation. Breathing continues to gradually improve. Recommendations: * Continue to diurese with close follow-up of BUN/creatinine, potassium, magnesium, etc. * H/H stable and continue antiplatelet therapy given recent stent. * Rhythm has been stable and can discontinue telemetry. * Continue DVT prophylaxis. Continue telemetry? No
[2017-08-13 12:41] VITALS: BP 130/62
--- NOTE | 2017-08-13 13:44 | PN- Nephrology ---
Assessment/Plan Nephrology Assessment: 1. 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 MARVEL secondary to congestive heart failure - stable 3. Hyperkalemia - resolved 4. Rheumatoid arthritis 5. Anemia - ENRIQUETA started Suggestion: 1. Continue current regimen 2. Physical therapy/rehab when appropriate 3. At some point would switch her to oral diuretics as previously recommended Subjective Subjective: Her main complaint continues to be leg pains. She denies any shortness of breath or chest pain. Renal function unchanged with serum creatinine of 1.7. Potassium down to 5.0. 24-hour urine protein excretion 5.6 g consistent with previous values -obtained from her outpatient carpentry specialist Dr. Skinner. Objective Vital Signs and I&Os Vital Signs Date Time Temp Pulse Resp B/P B/P Pulse O2 O2 Flow FiO2 Mean Ox Delivery Rate 08/13 1241 98.1 68 18 130/62 96 Nasal 2.0L Cannula 08/13 0943 76 180/70 08/13 0639 98.3 78 20 140/80 90 Nasal 2.0L Cannula 08/13 0000 Nasal 1.0L Cannula 08/12 2252 98.2 70 22 118/50 93 Nasal 2.0L Cannula 08/12 2035 70 118/50 08/12 1600 Nasal 1.0L Cannula 08/12 1411 97.8 68 20 116/68 94 Nasal Cannula Intake & Output 08/13 1600 08/13 0400 08/12 1600 08/12 0400 08/11 1600 08/11 0400 Intake Total 120 270 670 180 850 960 Output Total 450 1 1225 1450 550 Balance -330 269 -555 180 -600 410 Intake, IV 20 30 20 Intake, Oral 120 250 640 180 830 960 Number 2 1 2 Bowel Movements Output, Stool 1 Output, Urine 450 1225 1450 550 Patient 166 lb 172 lb 170 lb Weight Weight Bed scale Measurement Method Physical Exam: General: Well-developed, elderly white female in NAD Skin: No rash or jaundice HEENT: Conjunctivae pale, sclerae anicteric, mucous membranes moist Neck: Without masses or thyromegaly, no supraclavicular or cervical adenopathy Chest: Decreased breath sounds at bases, no rales, rhonchi or wheezes Heart: Regular rate and rhythm without S3 or rub Abdomen: Soft and nontender without palpable masses or organomegaly; there is a left colostomy in place Extremities: 1+ lower extremity edema without cyanosis Neuro: Awake and alert, no focal findings, no asterixis or myoclonus Results Pertinent Lab Results: Laboratory Tests 08/13 08/13 0852 0310 Chemistry Sodium (137 - 145 mmol/L) 137 Potassium (3.5 - 5.1 mmol/L) 5.0 Chloride (98 - 107 mmol/L) 99 Carbon Dioxide (22 - 30 mmol/L) 33 H Anion Gap (5 - 16) 5 BUN (7 - 17 mg/dL) 53 H Creatinine (0.5 - 1.0 mg/dL) 1.7 H Estimated GFR (>60 ml/min) 29 L BUN/Creatinine Ratio (7 - 25 %) 31.2 H Hematology CBC w Diff NO MAN DIFF REQ WBC (4.8 - 10.8 /CUMM) 7.7 RBC (4.20 - 5.40 /CUMM) 3.13 L Hgb (12.0 - 16.0 G/DL) 9.4 L Hct (37 - 47 %) 28.8 L MCV (81.0 - 99.0 FL) 91.9 MCH (27.0 - 31.0 PG) 29.9 MCHC (33.0 - 37.0 G/DL) 32.5 L RDW (11.5 - 14.5 %) 15.6 H Plt Count (130 - 400 /CUMM) 222 MPV (7.4 - 10.4 FL) 7.8 Gran % (42.2 - 75.2 %) 76.3 H Lymphocytes % (20.5 - 51.1 %) 15.6 L Monocytes % (1.7 - 9.3 %) 5.2 Eosinophils % (0 - 5 %) 2.8 Basophils % (0.0 - 2.0 %) 0.1 Absolute Granulocytes (1.4 - 6.5 /CUMM) 5.9 Absolute Lymphocytes (1.2 - 3.4 /CUMM) 1.2 Absolute Monocytes (0.10 - 0.60 /CUMM) 0.4 Absolute Eosinophils (0.0 - 0.7 /CUMM) 0.2 Absolute Basophils (0.0 - 0.2 /CUMM) 0 Urines Ur Random Creatinine (mg/dL) 18.0 Urine Total Volume (600 - 1500 ML/24HR) 2030 H Urine Creatinine (0.8 - 1.8 g/24HR) 0.4 L Ur Total Protein 24 Hr (42 - 255 mg/24HR) 5663.7 H 08/12 08/11 08/11 0642 1925 1805 Chemistry Sodium (137 - 145 mmol/L) 139 Potassium (3.5 - 5.1 mmol/L) 5.5 H Chloride (98 - 107 mmol/L) 100 Carbon Dioxide (22 - 30 mmol/L) 32 H Anion Gap (5 - 16) 7 BUN (7 - 17 mg/dL) 53 H Creatinine (0.5 - 1.0 mg/dL) 1.7 H Estimated GFR (>60 ml/min) 29 L BUN/Creatinine Ratio (7 - 25 %) 31.2 H Hematology CBC w Diff NO MAN DIFF REQ WBC (4.8 - 10.8 /CUMM) 6.3 RBC (4.20 - 5.40 /CUMM) 2.88 L Hgb (12.0 - 16.0 G/DL) 8.6 L Hct (37 - 47 %) 26.6 L MCV (81.0 - 99.0 FL) 92.5 MCH (27.0 - 31.0 PG) 29.9 MCHC (33.0 - 37.0 G/DL) 32.3 L RDW (11.5 - 14.5 %) 16.2 H Plt Count (130 - 400 /CUMM) 181 MPV (7.4 - 10.4 FL) 8.1 Gran % (42.2 - 75.2 %) 72.9 Lymphocytes % (20.5 - 51.1 %) 17.2 L Monocytes % (1.7 - 9.3 %) 6.2 Eosinophils % (0 - 5 %) 3.2 Basophils % (0.0 - 2.0 %) 0.5 Absolute Granulocytes (1.4 - 6.5 /CUMM) 4.6 Absolute Lymphocytes (1.2 - 3.4 /CUMM) 1.1 L Absolute Monocytes (0.10 - 0.60 /CUMM) 0.4 Absolute Eosinophils (0.0 - 0.7 /CUMM) 0.2 Absolute Basophils (0.0 - 0.2 /CUMM) 0 Urines Ur Random Creatinine (mg/dL) Cancelled 22.9 Urine Total Volume Cancelled Urine Creatinine Cancelled 08/11 0644 Chemistry Sodium (137 - 145 mmol/L) 138 Potassium (3.5 - 5.1 mmol/L) 4.9 Chloride (98 - 107 mmol/L) 104 Carbon Dioxide (22 - 30 mmol/L) 29 Anion Gap (5 - 16) 5 BUN (7 - 17 mg/dL) 56 H Creatinine (0.5 - 1.0 mg/dL) 1.6 H Estimated GFR (>60 ml/min) 31 L BUN/Creatinine Ratio (7 - 25 %) 35.0 H Magnesium (1.6 - 2.3 mg/dL) 1.8 Hematology CBC w Diff NO MAN DIFF REQ WBC (4.8 - 10.8 /CUMM) 8.6 RBC (4.20 - 5.40 /CUMM) 2.92 L Hgb (12.0 - 16.0 G/DL) 8.9 L Hct (37 - 47 %) 27.1 L MCV (81.0 - 99.0 FL) 93.0 MCH (27.0 - 31.0 PG) 30.4 MCHC (33.0 - 37.0 G/DL) 32.7 L RDW (11.5 - 14.5 %) 16.2 H Plt Count (130 - 400 /CUMM) 201 MPV (7.4 - 10.4 FL) 8.3 Gran % (42.2 - 75.2 %) 80.8 H Lymphocytes % (20.5 - 51.1 %) 11.5 L Monocytes % (1.7 - 9.3 %) 4.2 Eosinophils % (0 - 5 %) 3.3 Basophils % (0.0 - 2.0 %) 0.2 Absolute Granulocytes (1.4 - 6.5 /CUMM) 6.9 H Absolute Lymphocytes (1.2 - 3.4 /CUMM) 1.0 L Absolute Monocytes (0.10 - 0.60 /CUMM) 0.4 Absolute Eosinophils (0.0 - 0.7 /CUMM) 0.3 Absolute Basophils (0.0 - 0.2 /CUMM) 0
[2017-08-13 15:20] VITALS: BP 118/48
[2017-08-13 21:15] VITALS: BP 120/64
[2017-08-13 22:00] VITALS: BP 120/60
--- NOTE | 2017-08-14 06:28 | PN- Housestaff ---
Сергей Morfin 08/14/17 0628: Subjective Follow-up For: -SOB 2/2 to CHF versus COPD exacerbation -positive troponin -b/l extremity edema Complaints: continues to feel lethargic Tele-Events Since Last Visit: not on tele Subjective: I have seen and examined the patient today morning. She was fast asleep early in the morning however upon waking up she felt very lethargic and tired. I decided to make her again in a later point in time. We conducted our multidisciplinary round at bedside. She was more awake and alert, however she continued to feel lethargic. She continues to be on 2 L of oxygen. She does have some edema in the feet and hands however her shortness of breath is better than before. Repeat x-ray results awaited. We discussed option of palliative care with her, she was admitted to the locked and initially but eventually agreed for palliative care consult, we will continue close of care discussion.She is also requesting to get her Cueto is out, we will touch base with cardiology to switch her to by mouth Lasix and eventual discontinuation of Cueto's catheter. Review of Systems Constitutional: Reports: see HPI. Objective Last 24 Hrs of Vital Signs/I&O Vital Signs Date Time Temp Pulse Resp B/P B/P Pulse O2 O2 Flow FiO2 Mean Ox Delivery Rate 08/14 0953 67 100/60 08/14 0952 67 100/60 08/14 0639 97.3 67 20 100/60 96 Nasal 2.0L Cannula 08/14 0000 Nasal 2.0L Cannula 08/13 2200 98.4 65 18 120/60 95 Nasal Cannula 08/13 2115 97.9 65 20 120/64 97 Nasal 2.0L Cannula 08/13 2112 65 120/64 08/13 1600 Nasal 2.0L Cannula 08/13 1520 98.8 62 20 118/48 96 Nasal Cannula 08/13 1241 98.1 68 18 130/62 96 Nasal 2.0L Cannula Intake & Output 08/14 1600 08/14 0800 08/14 0000 Intake Total 240 350 Output Total 1150 651 Balance -910 -301 Intake, Oral 240 350 Output, Stool 1 Output, Urine 1150 650 Physical Exam General Appearance: Alert, Oriented X3, lethargic and tired Skin: intermitten bruises on b/l hands from ? blood draw Skin Temp/Moisture Exam: Cool/Dry HEENT: Atraumatic, PERRLA, EOMI Neck: Supple Cardiovascular: Normal S1, Normal S2, No Murmurs Lungs: Clear to Auscultation, Normal Air Movement, bibasilar crackles mild, better than before Abdomen: Normal Bowel Sounds, Soft, No Tenderness Neurological: Strength at 5/5 X4 Ext, Normal Tone, Sensation Intact Extremities: edema 1 to 2+ Vascular: Normal Pulses Current Medications: Current Medications Sig/Rick Start time Last Medication Dose Route Stop Time Status Admin Acetaminophen 1,000 MG Q6P PRN 08/06 444 AC 08/13 N/A 1 UNIT IV 0959 Acetaminophen/ 1 TAB BID PRN 08/06 043 AC 08/12 Butalbital/Caffeine PO 1303 Aspirin 81 MG DAILY 08/06 899 AC 08/14 PO 0953 Calcium/Vitamin D 1 TAB DAILY 08/06 899 AC 08/14 PO 0953 Carvedilol 6.25 MG BID 08/06 899 AC 08/13 PO 2112 Clopidogrel Bisulfate 75 MG DAILY 08/06 899 AC 08/14 PO 0952 Cyclobenzaprine HCl 5 MG TIDPRN PRN 08/06 0430 AC 08/12 PO 1747 Docusate Sodium 100 MG DAILY NEEDED PRN 08/07 1900 AC PO Docusate Sodium 100 MG DAILY 08/06 899 AC 08/14 PO 0953 Ergocalciferol 50,000 IU QWED 08/06 899 AC 08/13 PO 0942 Fenofibrate 48 MG DAILY 08/13 09 AC 08/14 PO 0952 Ferrous Sulfate 325 MG DAILY 08/06 899 AC 08/14 PO 0952 Furosemide 40 MG DAILY 08/09 1237 AC 08/14 IV 0953 Gabapentin 100 MG Q8 08/06 599 AC 08/14 PO 0558 Heparin Sodium 5,000 UNIT Q8 08/11 1630 AC 08/14 (Porcine) SC 0558 Levothyroxine Sodium 0.025 MG DAILY AC 08/06 699 AC 08/14 PO 0558 Lisinopril 10 MG QAM 08/06 899 AC 08/13 PO 0943 Metoclopramide HCl 10 MG TID 08/06 899 AC 08/14 PO 0952 Morphine Sulfate 2 MG Q4P PRN 08/06 444 AC 08/13 IV 2345 Nitroglycerin 0.4 MG DAILY 08/06 09 AC 08/14 TOP 0952 Omeprazole 20 MG DAILY AC 08/06 0700 AC 08/14 PO 0558 Polyethylene Glycol 17 GM DAILY 08/07 1851 AC 08/14 PO 0953 Prednisone 10 MG QAM 08/06 09 AC 08/14 PO 0952 Senna/Docusate Sodium 1 TAB DAILY NEEDED PRN 08/06 0445 AC 08/07 PO 1837 Sertraline HCl 25 MG QAM 08/06 899 AC 08/14 PO 0952 Lines/Diet/Fluids Restraints: none Assessment/Plan Assessment: Ms. Corona is a 76-year-old female with past medical history of hypertension, heart failure with preserved ejection fraction, coronary artery disease status post LAD stent, rheumatoid arthritis on chronic prednisone, DVT previously on Eliquis, obstructive sleep apnea on CPAP, aortic regurgitation, chronic kidney disease, anxiety, depression, colonic perforation status post colostomy came in to [facility] on 08/06/2017 with chief complain of worsening shortness of breath with minimal exertion along with bilateral lower and upper extremity edema. Of note she has had multiple admissions over the past 2 months for congestive heart failure, colitis requiring antibiotics, anemia with negative EGD and colonoscopy and this time she returns again with worsening shortness of breath. Relevant vitals on arrival at the ED - was her saturation was 88% on room air, she was put on nonrebreather and saturations improved to good percent eventually stabilizing to 95% on 2 L. She was in mild respiratory distress upon presentation with bibasilar crackles, scattered wheezes, white count of 16.2, H/ H of 10/29.9, baseline creatinine of 1.3, no BNP of 34,200, her urinalysis showed mild WBCs 5-10 with trace leukocyte esterase, chest x-ray showed small pleural effusion increase central vascular prominence with perihilar interstitial prominence suggesting interstitial edema. EKG showed evidence of left ventricular hypertrophy. Last echocardiogram from 2018 showed an EF of 65% with stage 3 diastolic dysfunction. today is day 9 of her admission. Problem list along with assessment and plan #1 Acute hypoxic respiratory failure * multifactorial 2/2 to CHF and COPD, he continues to be on 2 L of nasal cannula saturating 96%. * Continue to maintain saturations above 92%. * Continue to monitor oxygen saturations. * titrate down as toelrated. #2 Acute on chronic exacerbation of heart failure with preserved ejection fraction. * Cardiology was consulted, input appreciated,she was started on IV furosemide 40 mg daily with daily weights and strict input and output. * Continue diuretics at 40 mg iv daily. * plan to switch to po today per cardio and d/c foleys * i/o - fluid balance today negative -910 * will repeat the chest xray #3 Elevated troponin most likely secondary to type II IN, now resolved. * troponing trended down * type 2 IN in the setting of anemia and CHf exacerbation. * resolved now. #4 Bilateral lower and upper extremity edema most likely secondary to heart failure. * ct iv lasix * improvign but still + * SOB still presentm but better from ebfore #5 Leukocytosis * resolved. #6 Chronic Kidney Disease stage III * stable #7 Chronic Anemia * stable yday 9.4/28.8, today cbc not repeated. * eventual plan for OP pill camera. #8 Lethargy * she does continue to appear lethargic today morning. * Ct head 08/12/2017 didnto show any acute pathology * could be 2/2 to sob,anemia overall poor functional status. * ct to monitor. #9 Goals of care discussion * Palliative consult with Dr sullivan for goalso f care discussion today Heart Healthy diet with 2g sodium restriction DVT ppx-ALPS only Heparin SC Problem List: 1. Status post Constance procedure 2. Superficial thrombophlebitis 3. Leukocytosis 4. Fluid overload 5. ACS (acute coronary syndrome) Pain Ratin Pain Location: .. Pain Goal: Remain pain free Pain Plan: tylenol Tomorrow's Labs & Rationales: .. Miryam Luevano 08/14/17 1032: Attending MD Review Statement Attending Statement Attending MD Statement: examined this patient, discuss w/resident/PA/BAND DIRECTOR, agreed w/resident/PA/BAND DIRECTOR, reviewed EMR data (avail), discussed with nursing, discussed with case mgmt Attending Assessment/Plan: Acute heart failure and acute hypoxic resp failure- improving. pts edema is much better but pt is very deconditioned and needs lot of assistance at present time with ADLs. CKD- with underlying amyloid nephropathy with nephrotic range proteinuria. Pt has poor prognosis overall and we will consult Dr Sullivan from palliative care to d/w pt the goals of care .
[2017-08-14 06:39] VITALS: BP 100/60
--- NOTE | 2017-08-14 10:52 | PN- Nephrology ---
Assessment/Plan Nephrology Assessment: 1. 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 MARVEL secondary to congestive heart failure - stable 3. Hyperkalemia - resolved 4. Rheumatoid arthritis 5. Anemia - ENRIQUETA (Procrit) started 6. General inanition Suggestion: 1. Repeat chest x-ray 2. If chest x-ray does not show worsening CHF, switch to p.o. diuretics 3. Repeat chemistries and CVC 4. Would consider discontinuing Cueto catheter 5. Would also consider a palliative care consult Subjective Subjective: Patient very dejected, stating that she is extremely weak. Still having pain in her lower extremities especially and calves. Imaging studies have been unrevealing. Renal function was stable as of yesterday. No labs today. Objective Vital Signs and I&Os Vital Signs Date Time Temp Pulse Resp B/P B/P Pulse O2 O2 Flow FiO2 Mean Ox Delivery Rate 08/14 0953 67 100/60 08/14 0952 67 100/60 08/14 0639 97.3 67 20 100/60 96 Nasal 2.0L Cannula 08/14 0000 Nasal 2.0L Cannula 08/13 2200 98.4 65 18 120/60 95 Nasal Cannula 08/13 2115 97.9 65 20 120/64 97 Nasal 2.0L Cannula 08/13 2112 65 120/64 08/13 1600 Nasal 2.0L Cannula 08/13 1520 98.8 62 20 118/48 96 Nasal Cannula 08/13 1241 98.1 68 18 130/62 96 Nasal 2.0L Cannula Intake & Output 08/14 1600 08/14 0400 08/13 1600 08/13 0400 08/12 1600 08/12 0400 Intake Total 240 350 600 270 670 180 Output Total 1163 202 5694 1 1225 Balance -910 -301 -450 278 -604 180 Intake, IV 120 20 30 Intake, Oral 240 350 480 250 640 180 Number 2 1 Bowel Movements Output, Stool 1 1 Output, Urine 0310 987 9378 1225 Patient 166 lb 172 lb Weight Weight Bed scale Measurement Method Physical Exam: General: Well-developed, elderly white female lethargic but easily arousable Skin: No rash or jaundice HEENT: Conjunctivae pale, sclerae anicteric, mucous membranes moist Neck: Without masses or thyromegaly, no supraclavicular or cervical adenopathy Chest: Decreased breath sounds at bases, no rales, rhonchi or wheezes Heart: Regular rate and rhythm without S3 or rub Abdomen: Soft and nontender without palpable masses or organomegaly; there is a left colostomy in place Extremities: 1+ lower extremity edema without cyanosis Neuro: No focal findings, no asterixis or myoclonus Results Pertinent Lab Results: Laboratory Tests 08/13 08/13 0852 0310 Chemistry Sodium (137 - 145 mmol/L) 137 Potassium (3.5 - 5.1 mmol/L) 5.0 Chloride (98 - 107 mmol/L) 99 Carbon Dioxide (22 - 30 mmol/L) 33 H Anion Gap (5 - 16) 5 BUN (7 - 17 mg/dL) 53 H Creatinine (0.5 - 1.0 mg/dL) 1.7 H Estimated GFR (>60 ml/min) 29 L BUN/Creatinine Ratio (7 - 25 %) 31.2 H Hematology CBC w Diff NO MAN DIFF REQ WBC (4.8 - 10.8 /CUMM) 7.7 RBC (4.20 - 5.40 /CUMM) 3.13 L Hgb (12.0 - 16.0 G/DL) 9.4 L Hct (37 - 47 %) 28.8 L MCV (81.0 - 99.0 FL) 91.9 MCH (27.0 - 31.0 PG) 29.9 MCHC (33.0 - 37.0 G/DL) 32.5 L RDW (11.5 - 14.5 %) 15.6 H Plt Count (130 - 400 /CUMM) 222 MPV (7.4 - 10.4 FL) 7.8 Gran % (42.2 - 75.2 %) 76.3 H Lymphocytes % (20.5 - 51.1 %) 15.6 L Monocytes % (1.7 - 9.3 %) 5.2 Eosinophils % (0 - 5 %) 2.8 Basophils % (0.0 - 2.0 %) 0.1 Absolute Granulocytes (1.4 - 6.5 /CUMM) 5.9 Absolute Lymphocytes (1.2 - 3.4 /CUMM) 1.2 Absolute Monocytes (0.10 - 0.60 /CUMM) 0.4 Absolute Eosinophils (0.0 - 0.7 /CUMM) 0.2 Absolute Basophils (0.0 - 0.2 /CUMM) 0 Urines Ur Random Creatinine (mg/dL) 18.0 Urine Total Volume (600 - 1500 ML/24HR) 2030 H Urine Creatinine (0.8 - 1.8 g/24HR) 0.4 L Ur Total Protein 24 Hr (42 - 255 mg/24HR) 5663.7 H 08/12 08/11 08/11 0642 1925 1805 Chemistry Sodium (137 - 145 mmol/L) 139 Potassium (3.5 - 5.1 mmol/L) 5.5 H Chloride (98 - 107 mmol/L) 100 Carbon Dioxide (22 - 30 mmol/L) 32 H Anion Gap (5 - 16) 7 BUN (7 - 17 mg/dL) 53 H Creatinine (0.5 - 1.0 mg/dL) 1.7 H Estimated GFR (>60 ml/min) 29 L BUN/Creatinine Ratio (7 - 25 %) 31.2 H Hematology CBC w Diff NO MAN DIFF REQ WBC (4.8 - 10.8 /CUMM) 6.3 RBC (4.20 - 5.40 /CUMM) 2.88 L Hgb (12.0 - 16.0 G/DL) 8.6 L Hct (37 - 47 %) 26.6 L MCV (81.0 - 99.0 FL) 92.5 MCH (27.0 - 31.0 PG) 29.9 MCHC (33.0 - 37.0 G/DL) 32.3 L RDW (11.5 - 14.5 %) 16.2 H Plt Count (130 - 400 /CUMM) 181 MPV (7.4 - 10.4 FL) 8.1 Gran % (42.2 - 75.2 %) 72.9 Lymphocytes % (20.5 - 51.1 %) 17.2 L Monocytes % (1.7 - 9.3 %) 6.2 Eosinophils % (0 - 5 %) 3.2 Basophils % (0.0 - 2.0 %) 0.5 Absolute Granulocytes (1.4 - 6.5 /CUMM) 4.6 Absolute Lymphocytes (1.2 - 3.4 /CUMM) 1.1 L Absolute Monocytes (0.10 - 0.60 /CUMM) 0.4 Absolute Eosinophils (0.0 - 0.7 /CUMM) 0.2 Absolute Basophils (0.0 - 0.2 /CUMM) 0 Urines Ur Random Creatinine (mg/dL) Cancelled 22.9 Urine Total Volume Cancelled Urine Creatinine Cancelled
--- NOTE | 2017-08-14 11:15 | Cons- Palliative Care ---
General Information and HPI Consulting Request Date of Consult: 08/14/17 Requested By: Dr Luevano Source patient, EMS Exam Limitations no limitations History of Present Illness: Ms Corona is a 76 yo lady with pmh of HTN, HFpEF, history of DVT on Xarelto, history of chronic anemia, TACO on CPAP, anxiety, CKD stage 4, HFpEF/Diastolic CHF, depression, rheumatoid arthritis, history of colonic perforation s/p colostomy with a very recent admission at [facility] for GI bleeding/ diverticulosis, colitis, CHF Exacerbation, type 2 OK, MARVEL on CKD (07/20/17-), was brought in by ambulance for worsening shortness of breath on minimal exertion, and being treated for CHF exacerbation. This is her fourth hospital admission within 40 days per EMR. She lives along with nursing aides (self-pay) at home. Given her past medical history and with each visit, she has been seen deteriorating in her functional status, requiring increased level of assistance- - assist of 3/Silva-lift currently, dyspnea at rest while on oxygen, and not being able to carry out her daily activities, and is very lethargic. Medical team considered her overall poor prognosis and placed palliative care consultation. We (Griffin Sullivan MD and Garett Mora MD) had an extensive conversation with the patient separately and in presence of her son regarding her current medical condition and goals of care. She seems to have capacity to understand her condition and her treatment options, and admits to her poor prognosis. Her expectations seem to be to get what functional status she can and is open to focus on comfort-level of care. But she is also concerned about her ongoing medical conditions, riki her discharge disposition. She mentioned that her pain management could improve and is contemplating the idea of comfort-measures and hospice, but has not reached to any decision yet. All queries then were answered. Allergies/Medications Allergies: Coded Allergies: Penicillins (SWELLING, RASH, ITCH 07/18/17) cephalexin (From KEFLEX) (ITCHY 07/18/17) chocolate flavor (HEADACHE/MIGRAINE 07/18/17) codeine (ITCH 07/18/17) levofloxacin (From LEVAQUIN) (RASH 07/18/17) oxaprozin (From DAYPRO) (RASH 07/18/17) propoxyphene (UNKNOWN REACTION TO DARVOCET 07/18/17) Home Med List: Aspirin (Aspirin*) 81 MG TAB.CHEW 1 TAB PO DAILY Heart health Butalb/Acetaminophen/Caffeine (Erbgml-Vyaewgzl-Xjib 50-325-40) 50 MG-325 MG-40 MG TABLET 1 TAB PO BID PRN migrain (Reported) Calcium Carbonate/Vitamin D3 (Os-Mehdi 500+D3 Caplet) 500 MG-200 TABLET 1 TAB PO DAILY SUPPLEMENT (Reported) Carvedilol 6.25 MG TABLET 6.25 MG PO BID Heart Health . Clopidogrel Bisulfate (Plavix) 75 MG TABLET 1 TAB PO DAILY HEART HEALTH ( Reported) Cyclobenzaprine HCl 5 MG TABLET 1 TAB PO TIDPRN PRN muscle spasms (Reported) Docusate Sodium 100 MG CAPSULE 1 CAP PO DAILY constipation (Reported) Ergocalciferol (Vitamin D2) (Vitamin D2) 50,000 UNIT CAPSULE 1 CAP PO QWED SUPPLEMENT (Reported) Esomeprazole (Nexium) 40 MG CAPSULE.DR 1 CAP PO DAILY gastritis .. Fenofibrate,Micronized (Fenofibrate) 200 MG CAPSULE 1 CAP PO DAILY TG ( Reported) Ferrous Gluconate (Unknown Strength) TABLET (Unknown Dose) PO DAILY SUPPLEMENT (Reported) Furosemide (Lasix) 40 MG TABLET 40 MG PO DAILY Fluid Overload . Gabapentin 100 MG CAPSULE 1 CAP PO Q8 Neuropathy Levothyroxine Sodium 25 MCG TABLET 1 TAB PO DAILY AC THYROID (Reported) Lisinopril 10 MG TABLET 1 TAB PO QAM BP (Reported) Metoclopramide HCl (Reglan) 10 MG TABLET 1 TAB PO TID for nausea (Reported) 30 minutes before meals and bedtime Nitroglycerin (Nitroglycerin Patch) 0.4 MG/HOUR PATCH.TD24 1 PATCH TOP DAILY Heart health Potassium Chloride (Klor-Con 10) (Unknown Strength) TABLET.ER (Unknown Dose) PO DAILY SUPPLEMENT (Reported) Prednisone 10 MG TABLET 1 TAB PO QAM STEROID (Reported) Sennosides/Docusate Sodium (Senna Plus Tablet) 8.6 MG-50 MG TABLET 1 TAB PO DAILY NEEDED PRN CONSTIPATION . Sertraline HCl 25 MG TABLET 1 TAB PO QAM MENTAL HEALTH (Reported) Tramadol HCl 50 MG TABLET 1 TAB PO Q6 PRN PAIN SCALE 7-10 (SEVERE) Current Medications: Current Medications Sig/Rick Start time Last Medication Dose Route Stop Time Status Admin Acetaminophen 1,000 MG Q6P PRN 08/06 044 AC 08/13 N/A 1 UNIT IV 0959 Acetaminophen/ 1 TAB BID PRN 08/06 429 AC 08/12 Butalbital/Caffeine PO 1303 Aspirin 81 MG DAILY 08/06 899 AC 08/14 PO 0953 Calcium/Vitamin D 1 TAB DAILY 08/06 899 AC 08/14 PO 0953 Carvedilol 6.25 MG BID 08/06 899 AC 08/13 PO 2112 Clopidogrel Bisulfate 75 MG DAILY 08/06 899 AC 08/14 PO 0952 Cyclobenzaprine HCl 5 MG TIDPRN PRN 08/06 429 AC 08/12 PO 1747 Docusate Sodium 100 MG DAILY NEEDED PRN 08/07 1899 AC PO Docusate Sodium 100 MG DAILY 08/06 899 AC 08/14 PO 0953 Ergocalciferol 50,000 IU QWED 08/06 899 AC 08/13 PO 0942 Fenofibrate 48 MG DAILY 08/13 899 AC 08/14 PO 0952 Ferrous Sulfate 325 MG DAILY 08/06 899 AC 08/14 PO 0952 Furosemide 40 MG DAILY 08/09 1237 AC 08/14 IV 0953 Gabapentin 100 MG Q8 08/06 599 AC 08/14 PO 0558 Heparin Sodium 5,000 UNIT Q8 08/11 1630 AC 08/14 (Porcine) SC 0558 Levothyroxine Sodium 0.025 MG DAILY AC 08/06 699 AC 08/14 PO 0558 Lisinopril 10 MG QAM 08/06 899 AC 08/13 PO 0943 Metoclopramide HCl 10 MG TID 08/06 899 AC 08/14 PO 0952 Morphine Sulfate 2 MG Q4P PRN 08/06 044 AC 08/13 IV 2345 Nitroglycerin 0.4 MG DAILY 08/06 899 AC 08/14 TOP 0952 Omeprazole 20 MG DAILY AC 08/06 699 AC 08/14 PO 0558 Polyethylene Glycol 17 GM DAILY 08/07 1851 AC 08/14 PO 0953 Prednisone 10 MG QAM 08/06 899 AC 08/14 PO 0952 Senna/Docusate Sodium 1 TAB DAILY NEEDED PRN 08/06 444 AC 08/07 PO 1837 Sertraline HCl 25 MG QAM 08/06 899 AC 08/14 PO 0952 Review of Systems Review of Systems Constitutional: Reports: weakness. EENTM: Reports: no symptoms. Respiratory: Reports: orthopnea, short of breath, wheezing. Cardiovascular: Reports: orthopena, peripheral edema. Gastrointestinal/Abdominal: Reports: no symptoms. Genitourinary: Reports: no symptoms (was on Cueto). Musculoskeletal: Reports: back pain, joint pain, muscle pain. Skin: Reports: see HPI (multiple bruises). Neurological: Reports: weakness. Hematologic/Endocrine: Reports: bruising. 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 Renal: amyloid nephropathy Musculoskeletal: rheumatoid arthritis Psychiatric: anxiety, depression, insomnia Endocrine: vitamin D deficiency Blood Disorders: anemia Cancer(s): NONE PHLEBOTOMY SPECIALIST/Reproductive: NONE Surgical History Surgical History: colon resection, hysterectomy, laminectomy, hemorrhoidal banding tonsillectomy appendectomy Family History Relations & Conditions If Any FATHER MOTHER BROTHER Relation not specified for: *No pertinent family history FH: heart attack FH: heart attack FH: heart attack Psychosocial History Where Do You Live? Home Services at Home: [facility] Primary Language: Indonesian Smoking Status: Former Smoker ETOH Use: denies use Illicit Drug Use: denies illicit drug use Karnofsky Performance Scale: 20 Living Will? no Power of Dispatcher Refinery/HCP? Son lives nearby (per patient) (Sons have been visiting her) Functional Ability ADLs Independent: eating (needs food to be brought). Needs Assist: dressing, toileting, bathing. Ambulation: non-ambulatory (previously on walker), Silva-lift now IADLs Needs Assist: shopping, housework, food prep, transportation. 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 Exam & Diagnostic Data Last 24 Hrs of Vitals/I&Os: Vital Signs Date Time Temp Pulse Resp B/P B/P Pulse O2 O2 Flow FiO2 Mean Ox Delivery Rate 08/14 0953 67 100/60 08/14 0952 67 100/60 08/14 0639 97.3 67 20 100/60 96 Nasal 2.0L Cannula 08/14 0000 Nasal 2.0L Cannula 08/13 2200 98.4 65 18 120/60 95 Nasal Cannula 08/13 2115 97.9 65 20 120/64 97 Nasal 2.0L Cannula 08/13 2112 65 120/64 08/13 1600 Nasal 2.0L Cannula 08/13 1520 98.8 62 20 118/48 96 Nasal Cannula 08/13 1241 98.1 68 18 130/62 96 Nasal 2.0L Cannula Intake & Output 08/14 1600 08/14 0800 08/14 0000 Intake Total 240 350 Output Total 1150 651 Balance -910 -301 Intake, Oral 240 350 Output, Stool 1 Output, Urine 1150 650 Physical Exam: gen- obese lady, on nasal canula in mod resp distress, speaking in full sentences though RS- mild wheezes and crepts+ b/l CVS- S1 S2 not in florid failure (as in her presentation this time) neuro- grossly intact, gait not examined ext- bruises+ (?2/2 IV meds and lines) Assessment/Plan Assessment Ms Corona is a 76 yo lady with pmh of HTN, HFpEF, history of DVT on Xarelto, history of chronic anemia, TACO on CPAP, anxiety, CKD stage 4, HFpEF/Diastolic CHF, depression, rheumatoid arthritis, history of colonic perforation s/p colostomy with a very recent admission at [facility] for GI bleeding/ diverticulosis, colitis, CHF Exacerbation, type 2 OK, MARVEL on CKD (07/20/17-), was brought in by ambulance for worsening shortness of breath on minimal exertion, and being treated for CHF exacerbation. It appears that she is being medically optimized for her condition with continued diuresis, but in every visit, and this time also, her functional condition has deteriorated. The patient seems to understand that she could be medically optimized to point, and rest of the care can be made as comfort prioritized care. She wants to be discharged to a nursing facility given her ongogin medical conditions while focusing on palliative care from now on, but has not made up her mind about hospice-level of care yet. Also, she wants her pain management plan to be changed. Discussed with major case detective as well. * Recommend pain management with morphine 5 mg sublingual 4 times a day, and morphine 5 mg sublingual every 2 hours as needed for pain. * Recommend increasing dose of Gabapentin as allowed by her renal condition. * Recommend limiting number of tests if possible * Palliative approach, comfort prioritized care, with reevaluation about hospice consultation soon. * Of note, in case patient chooses for hospice care, she still wants to be treated for some minor conditions like UTI, pneumonia, among others that could be taking care of outside hospital. virtual classroom manager updated too. Thank you for the consult. Please call us for questions. Resident will follow-up briefly tomorrow, if required. Consult Acknowledgment - Thank you for your consult request. Attending MD Review Statement Attending Statement Attending MD Statement: examined this patient, discuss w/resident/PA/CREDIT SUPPORT SPECIALIST, agreed w/resident/PA/CREDIT SUPPORT SPECIALIST, discussed with family, reviewed EMR data (avail), discussed w/ case mgmt, amended to note Attending Assessment/Plan: Patient examined with Dr. Mora and I concur with his documentation of an elderly female, in bed, no acute distress at this time. She demonstrates external findings of RA and is currently being tx'd with O2 in setting of COPD, CHF. Mrs. Corona expresses understanding of her worsening medical condition and already is beginning to put into place limitations of medical care - as evident by a DNR/DNI order at this time. She seems interested in seeking SNF level care at this time as her current arrangement of private duty caregivers may be burdensome to her financially, administratively, and emotionally. I have encouraged her to transition from IV analgesia to PO - we will work to titrate the dose to efficacy. Case management will explore appropriate and desirable facilities. We recommend hospice care in whichever facility she chooses.
--- NOTE | 2017-08-14 13:54 | RADIOLOGY REPORT ---
EXAMINATION: XR PORTABLE CHEST CLINICAL INFORMATION: Shortness of breath. On Lasix treatment. Looking for progressing vascular congestion, CHF. COMPARISON: Several prior chest x-rays, most recent of which is dated 08/08/2017. TECHNIQUE: Portable AP semierect view of the chest was obtained. FINDINGS: The cardiomediastinal silhouette is enlarged. Calcification, ectasia and tortuosity of the aorta is also noted. There are persistent bilateral small pleural effusions, larger on the right side than the left with extension into the right minor fissure. Central vascular congestion is seen with perihilar reticular opacities, consistent with pulmonary edema. Bibasilar atelectatic changes are also suspected. Findings are very similar to the previous exam. No pneumothorax is seen. Osteopenia is noted with moderate degenerative change in the left shoulder joint. IMPRESSION: No significant change in congestive heart failure with bilateral pleural effusions and bibasilar atelectasis.
[2017-08-14 14:42] VITALS: BP 110/60
[2017-08-15 05:50] VITALS: BP 130/72
--- NOTE | 2017-08-15 10:45 | PN- Nephrology ---
Assessment/Plan Nephrology Assessment: 1. 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 MARVEL secondary to congestive heart failure - stable 3. Hyperkalemia - resolved 4. Rheumatoid arthritis 5. Anemia - ENRIQUETA (Procrit) started 6. General inanition Suggestion: 1. No specific changes from renal standpoint 2. Agree with Palliative Care recommendations 3. Will sign off but will be happy to see again as needed Thank you for asking me to be involved with her care. Subjective Subjective: Still quite weak with total body pain. Palliative Care comments and recommendations noted and appreciated. Objective Vital Signs and I&Os Vital Signs Date Time Temp Pulse Resp B/P B/P Pulse O2 O2 Flow FiO2 Mean Ox Delivery Rate 08/15 0946 64 130/72 08/15 0938 64 130/72 08/15 0550 97.6 64 20 130/72 94 Nasal 2.0L Cannula 08/15 0000 96 Nasal 2.0L Cannula 08/142 68 122/62 08/14 1956 Nasal 2.0L Cannula 08/14 1442 98.4 74 16 110/60 96 Nasal Cannula Intake & Output 08/15 1600 08/15 0400 08/14 1600 08/14 0400 08/13 1600 08/13 0400 Intake Total 180 220 840 350 600 270 Output Total 900 1200 2921 651 1050 1 Balance -720 -980 -2081 -301 -450 269 Intake, IV 100 120 20 Intake, Oral 180 120 840 350 480 250 Output, Stool 500 1 1 1 Output, Urine 501 985 6806 650 1050 Patient 166 lb Weight Weight Bed scale Measurement Method Physical Exam: General: Well-developed, elderly white female somewhat dejected, in no acute distress Skin: No rash or jaundice HEENT: Conjunctivae pale, sclerae anicteric, mucous membranes dry Neck: Without masses or thyromegaly, no supraclavicular or cervical adenopathy Chest: Bibasilar rales, no rhonchi or wheezes Heart: Regular rate and rhythm without S3 or rub Abdomen: Soft and nontender without palpable masses or organomegaly; there is a left colostomy in place Extremities: 1+ lower extremity edema without cyanosis Neuro: No focal findings, no asterixis or myoclonus Results Pertinent Lab Results: Laboratory Tests 08/13 08/13 6152 0310 Chemistry Sodium (137 - 145 mmol/L) 137 Potassium (3.5 - 5.1 mmol/L) 5.0 Chloride (98 - 107 mmol/L) 99 Carbon Dioxide (22 - 30 mmol/L) 33 H Anion Gap (5 - 16) 5 BUN (7 - 17 mg/dL) 53 H Creatinine (0.5 - 1.0 mg/dL) 1.7 H Estimated GFR (>60 ml/min) 29 L BUN/Creatinine Ratio (7 - 25 %) 31.2 H Hematology CBC w Diff NO MAN DIFF REQ WBC (4.8 - 10.8 /CUMM) 7.7 RBC (4.20 - 5.40 /CUMM) 3.13 L Hgb (12.0 - 16.0 G/DL) 9.4 L Hct (37 - 47 %) 28.8 L MCV (81.0 - 99.0 FL) 91.9 MCH (27.0 - 31.0 PG) 29.9 MCHC (33.0 - 37.0 G/DL) 32.5 L RDW (11.5 - 14.5 %) 15.6 H Plt Count (130 - 400 /CUMM) 222 MPV (7.4 - 10.4 FL) 7.8 Gran % (42.2 - 75.2 %) 76.3 H Lymphocytes % (20.5 - 51.1 %) 15.6 L Monocytes % (1.7 - 9.3 %) 5.2 Eosinophils % (0 - 5 %) 2.8 Basophils % (0.0 - 2.0 %) 0.1 Absolute Granulocytes (1.4 - 6.5 /CUMM) 5.9 Absolute Lymphocytes (1.2 - 3.4 /CUMM) 1.2 Absolute Monocytes (0.10 - 0.60 /CUMM) 0.4 Absolute Eosinophils (0.0 - 0.7 /CUMM) 0.2 Absolute Basophils (0.0 - 0.2 /CUMM) 0 Urines Ur Random Creatinine (mg/dL) 18.0 Urine Total Volume (600 - 1500 ML/24HR) 2030 H Urine Creatinine (0.8 - 1.8 g/24HR) 0.4 L Ur Total Protein 24 Hr (42 - 255 mg/24HR) 5663.7 H
[2017-08-15 13:53] VITALS: BP 100/60
--- NOTE | 2017-08-15 14:41 | Patient Discharge Instructions ---
Discharge Instructions General Discharge Information You were seen/treated for: CHF exacerbation Diet Continue normal diet: No Recommended Diet: Heart Healthy Acute Coronary Syndrome Inclusion Criteria At DC or during hospital stay patient has or had the following: ACS DIAGNOSIS No Discharge Core Measures Meds if any: Prescribed or Continued at Discharge Meds if any: NOT Prescribed or Continued at Discharge Congestive Heart Failure Inclusion Criteria At DC or during hospital stay patient has or had the following: CHF DIAGNOSIS No Discharge Core Measures Meds if any: Prescribed or Continued at Discharge Meds if any: NOT Prescribed or Continued at Discharge Cerebrovascular accident Inclusion Criteria At DC or during hospital stay patient has or had the following: CVA/TIA Diagnosis No Discharge Core Measures Meds if any: Prescribed or Continued at Discharge Meds if any: NOT Prescribed or Continued at Discharge Venous thromboembolism Inclusion Criteria VTE Diagnosis No VTE Type NONE VTE Confirmed by (Test) NONE Discharge Core Measures - Per Current guidelines, there needs to be overlap - treatment for the first 5 days of Warfarin therapy. - If discharged on Warfarin prior to 5 days of - overlap therapy, the patient will need to be - assessed for post discharge needs including - *Post discharge parental anticoagulation - *Warfarin and/or parental anticoagulation education - *Follow up date to check INR post discharge At least 5 days overlap therapy as Inpatient No Meds if any: Prescribed or Continued at Discharge Note: Overlap Therapy is Warfarin and Anticoagulant Meds if any: NOT Prescribed or Continued at Discharge
--- NOTE | 2017-08-15 15:31 | PN- Cardiology ---
Subjective Subjective: No complaints. Feels her breathing is near its baseline. Objective Vital Signs and I&Os Vital Signs Date Time Temp Pulse Resp B/P B/P Pulse O2 O2 Flow FiO2 Mean Ox Delivery Rate 08/15 1353 98.4 72 20 100/60 94 Nasal 2.0L Cannula 08/15 0946 64 130/72 08/15 0938 64 130/72 08/15 0550 97.6 64 20 130/72 94 Nasal 2.0L Cannula 08/15 0000 96 Nasal 2.0L Cannula 08/14 2021 68 122/62 08/14 195 Nasal 2.0L Cannula Intake & Output 08/15 1600 08/15 0800 08/15 0000 08/1400 08/14 0000 Intake Total 180 220 600 240 350 Output Total 8139 078 5117 1771 1150 651 Balance -1400 -720 -980 -1171 -910 -301 Intake, IV 100 Intake, Oral 180 120 600 240 350 Output, Stool 500 1 1 Output, Urine 1400 198 119 4831 1150 650 Patient 67 lb Weight Physical Exam: Well-developed, well-nourished elderly female in no acute distress. Vital signs: See above. HEENT: Normocephalic, atraumatic, EOMI, slightly dry mucous membranes. Neck: No JVD, no bruits. Lungs: Clear to auscultation bilaterally. Heart: S1, S2 with grade 1-2/6 systolic murmur. No gallop or rub. Abdomen: Soft, nontender, positive bowel sounds. Extremities: No edema. Current Medications: Current Medications Sig/Rick Start time Last Medication Dose Route Stop Time Status Admin Acetaminophen 325 MG Q4P PRN 08/15 1500 AC PO Acetaminophen 1,000 MG .STK-MED ONE 08/14 2004 DC IV 08/14 2005 Acetaminophen 1,000 MG Q6P PRN 08/06 0445 DC 08/14 N/A 1 UNIT IV 2013 Acetaminophen/ 1 TAB BID PRN 08/06 0430 AC 08/12 Butalbital/Caffeine PO 1303 Aspirin 81 MG DAILY 08/06 899 AC 08/15 PO 09 Calcium/Vitamin D 1 TAB DAILY 08/06 899 AC 08/15 PO 09 Carvedilol 6.25 MG BID 08/06 899 AC 08/15 PO 09 Clopidogrel Bisulfate 75 MG DAILY 08/06 899 AC 08/15 PO 0945 Cyclobenzaprine HCl 5 MG TIDPRN PRN 08/06 0430 AC 08/12 PO 1747 Dicyclomine HCl 20 MG 4 TIMES/DAY PRN 08/15 1445 AC PO Docusate Sodium 100 MG DAILY NEEDED PRN 08/07 1900 AC PO Docusate Sodium 100 MG DAILY 08/06 09 AC 08/15 PO 0938 Ergocalciferol 50,000 IU QWED 08/06 899 AC 08/13 PO 0942 Fenofibrate 48 MG DAILY 08/13 09 AC 08/15 PO 0938 Ferrous Sulfate 325 MG DAILY 08/06 09 AC 08/15 PO 0945 Furosemide 40 MG DAILY 08/09 1237 AC 08/15 IV 0936 Gabapentin 100 MG Q8 08/06 599 AC 08/15 PO 1505 Heparin Sodium 5,000 UNIT Q8 08/11 1630 AC 08/15 (Porcine) SC 1505 Levothyroxine Sodium 0.025 MG DAILY AC 08/06 07 AC 08/15 PO 0539 Lisinopril 10 MG QAM 08/06 09 AC 08/15 PO 0938 Lorazepam 0.5 MG Q6P PRN 08/15 1500 AC IV Metoclopramide HCl 10 MG TID 08/06 899 AC 08/15 PO 1505 Morphine Sulfate 15 MG Q6P PRN 08/15 1500 AC PO Morphine Sulfate 2 MG Q4P PRN 08/06 0445 AC 08/15 IV 1001 Nitroglycerin 0.4 MG DAILY 08/06 899 AC 08/15 TOP 0937 Omeprazole 20 MG DAILY AC 08/06 07 AC 08/15 PO 0539 Polyethylene Glycol 17 GM DAILY 08/07 1851 AC 08/15 PO 0947 Prednisone 10 MG QAM 08/06 899 AC 08/15 PO 0945 Senna/Docusate Sodium 1 TAB DAILY NEEDED PRN 08/06 044 AC 08/07 PO 1837 Sertraline HCl 25 MG QAM 08/06 899 AC 08/15 PO 0938 Results Last 48 Hrs of Labs/Mics: CXR 08/14/2017: No significant change in congestive heart failure with bilateral pleural effusions and bibasilar atelectasis. Assessment/Plan Assessment/Plan [id number] w/ hx of anxiety/depression, RA on ch steroid Rx, hypothyroidism, DVT w/ previous Eliquis Rx, obesity, TACO, HTN, LVH, AR, DD w/ acute on ch diastolic HF (HFpEF), colonic perforation 2/2 colonoscopy s/p Constance procedure September 2014 complicated by type II PR, MARVEL, bacteremia, etc. & ch anemia w/ recent adm for symptomatic anemia that improved w/ transfusion of PRBCs complicated by MARVEL on CKD, etc. who improved w/ standard measures, but w/ subsequent cardiac cath at [facility] (07/02/2017) that revealed a 70% LAD stenosis s/p stent to 0% residual stenosis & ELSY-3 flow, again admitted (07/07-07/11/2017) w/ worsening ch weakness, SOB, new bilat LE edema c/w HFpEF & a modest troponin I elevation 2 /2 type II PR who improved w/ standard therapy, but who was again admitted (-08/02/2017) w/ evidence of GI bleeding on dual antiplatelet Rx for her recent coronary stent. She has a colostomy & underwent endoscopy/colonoscopy on 2017 w/o obvious source for bleeding discovered & a plan for OP PillCam, however she returned to the ED again on 08/05/2017 w/ SOB, orthopnea, edema, anemia & modest troponin elevation. Breathing is near his baseline following good diuresis over the past 48 hours. . Recommendations: * Continue to diurese with close follow-up of BUN/creatinine, potassium, magnesium, etc. * Consider repeat CXR. * H/H stable and continue antiplatelet therapy given recent stent. * Rhythm has been stable and telemetry was discontinued. * Continue DVT prophylaxis. Continue telemetry? Not applicable (On 2 No.)
--- NOTE | 2017-08-15 16:34 | PN- Att Addend ---
Attending Addendum Attending Brief Note S: The patient notes some improvement in breathing. Met with Dr. Dailey for Palliative Care consult yesterday and is considering options. Had significant gas in colostomy bag and discomfort in RLQ abdomen. O: VS: Vital Signs Date Time Temp Pulse Resp B/P B/P Pulse O2 O2 Flow FiO2 Mean Ox Delivery Rate 08/15 1353 98.4 72 20 100/60 94 Nasal 2.0L Cannula 08/15 0946 64 130/72 08/15 0938 64 130/72 08/15 0550 97.6 64 20 130/72 94 Nasal 2.0L Cannula 08/15 0000 96 Nasal 2.0L Cannula 08/14 2021 68 122/62 08/14 1956 Nasal 2.0L Cannula Intake & Output 08/15 1600 08/15 0800 08/15 0000 Intake Total 180 220 Output Total 4112 762 9282 Balance -1400 -720 -980 Intake, IV 100 Intake, Oral 180 120 Output, Stool 500 Output, Urine 1400 900 700 Patient 67 lb Weight Current Medications Sig/Rick Start time Last Medication Dose Route Stop Time Status Admin Acetaminophen 325 MG Q4P PRN 08/15 1500 AC PO Acetaminophen 1,000 MG .STK-MED ONE 08/14 2004 DC IV 08/14 2005 Acetaminophen 1,000 MG Q6P PRN 08/06 0445 DC 08/14 N/A 1 UNIT IV 2013 Acetaminophen/ 1 TAB BID PRN 08/06 429 AC 08/12 Butalbital/Caffeine PO 1303 Aspirin 81 MG DAILY 08/06 899 AC 08/15 PO 0938 Calcium/Vitamin D 1 TAB DAILY 08/06 899 AC 08/15 PO 0938 Carvedilol 6.25 MG BID 08/06 899 AC 08/15 PO 0946 Clopidogrel Bisulfate 75 MG DAILY 08/06 899 AC 08/15 PO 0945 Cyclobenzaprine HCl 5 MG TIDPRN PRN 08/06 043 AC 08/12 PO 1747 Dicyclomine HCl 20 MG 4 TIMES/DAY PRN 08/15 1445 AC PO Docusate Sodium 100 MG DAILY NEEDED PRN 08/07 1900 AC PO Docusate Sodium 100 MG DAILY 08/06 899 AC 08/15 PO 0938 Ergocalciferol 50,000 IU QWED 08/06 899 AC 08/13 PO 0942 Fenofibrate 48 MG DAILY 08/13 09 AC 08/15 PO 0938 Ferrous Sulfate 325 MG DAILY 08/06 899 AC 08/15 PO 0945 Furosemide 60 MG DAILY 08/16 09 AC PO Furosemide 40 MG DAILY 08/09 1237 DC 08/15 IV 0936 Gabapentin 100 MG Q8 08/06 06 AC 08/15 PO 1505 Heparin Sodium 5,000 UNIT Q8 08/11 1630 AC 08/15 (Porcine) SC 1505 Levothyroxine Sodium 0.025 MG DAILY AC 08/06 07 AC 08/15 PO 0539 Lisinopril 10 MG QAM 08/06 09 AC 08/15 PO 0938 Lorazepam 0.5 MG Q6P PRN 08/15 1500 AC IV Metoclopramide HCl 10 MG TID 08/06 899 AC 08/15 PO 1505 Morphine Sulfate 15 MG Q6P PRN 08/15 1500 AC PO Morphine Sulfate 2 MG Q4P PRN 08/06 0445 AC 08/15 IV 1001 Nitroglycerin 0.4 MG DAILY 08/06 899 AC 08/15 TOP 0937 Omeprazole 20 MG DAILY AC 08/06 07 AC 08/15 PO 0539 Polyethylene Glycol 17 GM DAILY 08/07 1851 AC 08/15 PO 0947 Prednisone 10 MG QAM 08/06 899 AC 08/15 PO 0945 Senna/Docusate Sodium 1 TAB DAILY NEEDED PRN 08/06 044 AC 08/07 PO 1837 Sertraline HCl 25 MG QAM 08/06 899 AC 08/15 PO 0938 Physical Exam: HEENT: yehuda- dry mucosa Neck: no JVD Chest: diminished BS, few crackles left base Cor: RR, nl S1, S2 w/o murm Abd: BS+, softly distended- + significant gas in colostomy bag and around stoma, mild tender Ext: 1-2+ edema w/o change Labs/Tests: none Impression/Plan: #Abdominal Pain- most likely related to gas. Plan: Agree with changing colostomy bag and anti-spasmodic meds. #Hypoxic Respiratory Failure- improved. Still requiring 2 L nasal to keep sat. Plan: Continue oxygen support. #Acute on Chronic Preserved EF CHF- clinically doing better. Plan: Will transition to PO lasix as noted. #CKD III- stable Cr 1.7 last. Nephrology input appreciated. Plan: As per Nephrology- po lasix transition. #Chronic Pain- on Gabapentin. Did receive some IV morphine last pm. Plan: Transition to po meds. Will check with pharmacy if OK to increase Gabapentin with her renal function. #Depression/Anxiety- due to situation. Plan: Continue Zoloft. Add low dose Ativan as trial. #RA- on Prednisone. Plan: Continue Prednisone. #HTN/CAD- no chest pain. Plan: Continue Lisinopril, Coreg, ASA, Plavix, #Hyperlipidemia- on Fenofibrate. Plan: Continue Fenofibrate. #Hypothyroid- on Levothyroxine. Plan: Continue Levothyroxine. #GERD- on Omeprazole. Plan: Continue Omeprazole.
[2017-08-15 22:16] VITALS: BP 110/60
[2017-08-16 06:04] VITALS: BP 100/60
--- NOTE | 2017-08-16 08:18 | PN- Housestaff ---
Subjective Follow-up For: SOB 2/2 to CHF versus COPD exacerbation -positive troponin -b/l extremity edema Subjective: Patient seen and examined today. She was sleeping. Upon awakening she said she felt tired. Patient requested breakfast. Otherwise she denies shortness of breath, chest pain. Review of Systems Constitutional: Reports: no symptoms. Objective Last 24 Hrs of Vital Signs/I&O Vital Signs Date Time Temp Pulse Resp B/P B/P Pulse O2 O2 Flow FiO2 Mean Ox Delivery Rate 08/16 0949 98.6 63 20 100/60 08/16 0948 98.6 63 20 100/60 08/16 0604 98.6 63 20 100/60 96 Nasal 2.0L Cannula 08/16 0000 Nasal 2.0L Cannula 08/15 2216 98.5 84 20 110 94 Nasal Cannula 08/15 2123 70 20 110/60 08/15 1353 98.4 72 20 100/60 94 Nasal 2.0L Cannula Intake & Output 08/16 1600 08/16 0800 08/16 0000 Intake Total 460 480 Output Total 350 600 Balance 110 -120 Intake, Oral 460 480 Number 1 Bowel Movements Output, Urine 350 600 Physical Exam General Appearance: Alert, Cooperative, No Acute Distress, tired Cardiovascular: Normal S1, Normal S2, No Murmurs Lungs: bi basilar crackles Abdomen: Soft, No Tenderness, No Hepatospenomegaly Current Medications: Current Medications Sig/Rick Start time Last Medication Dose Route Stop Time Status Admin Acetaminophen 325 MG Q4P PRN 08/15 1500 AC PO Acetaminophen/ 1 TAB BID PRN 08/06 429 AC 08/12 Butalbital/Caffeine PO 1303 Aspirin 81 MG DAILY 08/06 899 AC 08/16 PO 0950 Calcium/Vitamin D 1 TAB DAILY 08/06 899 AC 08/16 PO 0950 Carvedilol 6.25 MG BID 08/06 899 AC 08/16 PO 0949 Clopidogrel Bisulfate 75 MG DAILY 08/06 PO 0948 Cyclobenzaprine HCl 5 MG TIDPRN PRN 08/06 043 AC 08/12 PO 1747 Dicyclomine HCl 20 MG 4 TIMES/DAY PRN 08/15 1445 AC 08/15 PO 1818 Docusate Sodium 100 MG DAILY NEEDED PRN 08/07 1900 AC PO Docusate Sodium 100 MG DAILY 08/06 899 AC 08/15 PO 0938 Ergocalciferol 50,000 IU QWED 08/06 899 AC 08/13 PO 0942 Fenofibrate 48 MG DAILY 08/13 899 AC 08/16 PO 0948 Ferrous Sulfate 325 MG DAILY 08/06 899 AC 08/16 PO 0949 Furosemide 60 MG DAILY 08/16 899 AC 08/16 PO 0948 Furosemide 40 MG DAILY 08/09 1237 DC 08/15 IV 0936 Gabapentin 100 MG Q8 08/06 06 AC 08/16 PO 0557 Heparin Sodium 5,000 UNIT Q8 08/11 1630 AC 08/16 (Porcine) SC 0557 Levothyroxine Sodium 0.025 MG DAILY AC 08/06 699 AC 08/16 PO 0557 Lisinopril 10 MG QAM 08/06 899 AC 08/16 PO 0948 Lorazepam 0.5 MG Q6P PRN 08/15 1500 AC 08/15 IV 1818 Metoclopramide HCl 10 MG TID 08/06 899 AC 08/16 PO 0947 Morphine Sulfate 15 MG Q6P PRN 08/15 1500 AC PO Morphine Sulfate 2 MG Q4P PRN 08/06 0445 AC 08/16 IV 0557 Nitroglycerin 0.4 MG DAILY 08/06 899 AC 08/16 TOP 0947 Omeprazole 20 MG DAILY AC 08/06 07 AC 08/16 PO 0557 Polyethylene Glycol 17 GM DAILY 08/07 1851 AC 08/15 PO 0947 Prednisone 10 MG QAM 08/06 899 AC 08/16 PO 0948 Senna/Docusate Sodium 1 TAB DAILY NEEDED PRN 08/06 0445 AC 08/07 PO 1837 Sertraline HCl 25 MG QAM 08/06 899 AC 08/16 PO 0948 Assessment/Plan Assessment: Ms. Corona is a 76-year-old female with past medical history of hypertension, heart failure with preserved ejection fraction, coronary artery disease status post LAD stent, rheumatoid arthritis on chronic prednisone, DVT previously on Eliquis, obstructive sleep apnea on CPAP, aortic regurgitation, chronic kidney disease, anxiety, depression, colonic perforation status post colostomy came in to [facility] on 08/06/2017 with chief complain of worsening shortness of breath with minimal exertion along with bilateral lower and upper extremity edema. Of note she has had multiple admissions over the past 2 months for congestive heart failure, colitis requiring antibiotics, anemia with negative EGD and colonoscopy and this time she returns again with worsening shortness of breath. Problem list along with assessment and plan #1 Acute hypoxic respiratory failure * multifactorial 2/2 to CHF and COPD, he continues to be on 2 L of nasal cannula saturating 96%. * Continue to maintain saturations above 92%. * Continue to monitor oxygen saturations. * titrate down as toelrated. #2 Acute on chronic exacerbation of heart failure with preserved ejection fraction. * Cardiology was consulted, input appreciated,she was started on IV furosemide 40 mg daily with daily weights and strict input and output. Patient is now on by mouth Lasix #3 Elevated troponin most likely secondary to type II NE, now resolved. * troponing trended down * type 2 NE in the setting of anemia and CHf exacerbation. * resolved now. #4 Bilateral lower and upper extremity edema most likely secondary to heart failure. * on Lasix * improvign but still present #5 Leukocytosis * resolved. #6 Chronic Kidney Disease stage III * stable #7 Chronic Anemia * stable yday 9.4/28.8, today cbc not repeated. * eventual plan for OP pill camera. #8 Lethargy * she does continue to appear lethargic today morning. * Ct head 08/12/2017 didnto show any acute pathology * could be 2/2 to sob,anemia overall poor functional status. * ct to monitor. #9 Goals of care discussion * Palliative consult with Dr cruz for goals of care discussion today Heart Healthy diet with 2g sodium restriction DVT ppx-ALPS only Heparin SC Problem List: 1. CHF (congestive heart failure) 2. Chest pain, atypical Pain Ratin Pain Location: none Pain Goal: Remain pain free Pain Plan: tylenol Tomorrow's Labs & Rationales: cbc,bep
--- NOTE | 2017-08-16 11:48 | PN- Att Addend ---
Attending Addendum Attending Brief Note Patient seen and examined. Plan of care discussed with the medical team and the patient. Available lab work and radiology test reports were reviewed. Patient awake lying in bed this morning and does not appear to be in any distress. This morning she denies any abdominal pain. She complains of for crampy leg pain. No respiratory distress noted Exam: General: Patient awake alert oriented without any distress CVS: S1 plus S2 without any murmur or gallops Chest: Few scattered crepitation without any wheeze. There is no respiratory distress. Abdomen: Colostomy bag noted in left lower abdomen otherwise Soft non-tender, bowel sound present, no guarding or rebound LAST PUTTER AWAY: Awake alert oriented without any focal neuro deficit and follows commands appropriately Extremities: No edema; no clubbing or cyanosis noted Assessment and plan * Hypoxic Respiratory Failure- improved. Still requiring 2 L nasal to keep sat. Plan: Continue oxygen support. * Acute on Chronic Preserved EF CHF- clinically doing better. Plan: Will continue PO lasix * CKD III- stable Cr 1.7 last. Continue Lasix * Chronic Pain- on Gabapentin and morphine. * Depression/Anxiety- due to situation. Plan: Continue Zoloft. low dose Ativan as trial. Patient is still considering a decision regarding hospice or palliative care. Continue supportive care and avoid blood draws Current Medications Sig/Rick Start time Last Medication Dose Route Stop Time Status Admin Acetaminophen 325 MG Q4P PRN 08/15 1500 AC PO Acetaminophen/ 1 TAB BID PRN 08/06 429 AC 08/12 Butalbital/Caffeine PO 1303 Aspirin 81 MG DAILY 08/06 899 AC 08/16 PO 0950 Calcium/Vitamin D 1 TAB DAILY 08/06 899 AC 08/16 PO 0950 Carvedilol 6.25 MG BID 08/06 899 AC 08/16 PO 0949 Clopidogrel Bisulfate 75 MG DAILY 08/06 899 AC 08/16 PO 0948 Cyclobenzaprine HCl 5 MG TIDPRN PRN 08/06 0430 08/12 PO 1747 Dicyclomine HCl 20 MG 4 TIMES/DAY PRN 08/15 1445 AC 08/15 PO 1818 Docusate Sodium 100 MG DAILY NEEDED PRN 08/07 1900 AC PO Docusate Sodium 100 MG DAILY 08/06 899 AC 08/15 PO 0938 Ergocalciferol 50,000 IU QWED 08/06 899 AC 08/13 PO 0942 Fenofibrate 48 MG DAILY 08/13 09 AC 08/16 PO 0948 Ferrous Sulfate 325 MG DAILY 08/06 899 AC 08/16 PO 0949 Furosemide 60 MG DAILY 08/16 09 AC 08/16 PO 0948 Furosemide 40 MG DAILY 08/09 1237 DC 08/15 IV 0936 Gabapentin 100 MG Q8 08/06 06 AC 08/16 PO 0557 Heparin Sodium 5,000 UNIT Q8 08/11 1630 AC 08/16 (Porcine) SC 0557 Levothyroxine Sodium 0.025 MG DAILY AC 08/06 07 AC 08/16 PO 0557 Lisinopril 10 MG QAM 08/06 899 AC 08/16 PO 0948 Lorazepam 0.5 MG Q6P PRN 08/15 1500 AC 08/15 IV 1818 Metoclopramide HCl 10 MG TID 08/06 899 AC 08/16 PO 0947 Morphine Sulfate 15 MG Q6P PRN 08/15 1500 AC PO Morphine Sulfate 2 MG Q4P PRN 08/06 0445 AC 08/16 IV 0557 Nitroglycerin 0.4 MG DAILY 08/06 899 AC 08/16 TOP 0947 Omeprazole 20 MG DAILY AC 08/06 07 AC 08/16 PO 0557 Polyethylene Glycol 17 GM DAILY 08/07 1851 AC 08/15 PO 0947 Prednisone 10 MG QAM 08/06 09 AC 08/16 PO 0948 Senna/Docusate Sodium 1 TAB DAILY NEEDED PRN 08/06 0445 AC 08/07 PO 1837 Sertraline HCl 25 MG QAM 08/06 899 AC 08/16 PO 0948 Laboratory Tests 08/15/17 0708: Sodium Cancelled, Potassium Cancelled, Chloride Cancelled, Carbon Dioxide Cancelled, Anion Gap Cancelled, BUN Cancelled, Creatinine Cancelled, BUN/ Creatinine Ratio Cancelled Vital Signs Date Time Temp Pulse Resp B/P B/P Pulse O2 O2 Flow FiO2 Mean Ox Delivery Rate 08/16 0849 98.6 63 20 100/60 08/16 0948 98.6 63 20 100/60 08/16 0604 98.6 63 20 100/60 96 Nasal 2.0L Cannula 08/16 0000 Nasal 2.0L Cannula 08/16 2215 98.5 84 20 110/60 94 Nasal Cannula 08/15 2123 70 20 110/60 08/15 1353 98.4 72 20 100/60 94 Nasal 2.0L Cannula Intake & Output 08/16 1600 08/16 0800 08/16 0000 Intake Total 460 480 Output Total 350 600 Balance 110 -120 Intake, Oral 460 480 Number 1 Bowel Movements Output, Urine 350 600
[2017-08-16 14:16] VITALS: BP 100/72
[2017-08-16 21:41] VITALS: BP 140/70
[2017-08-17 07:01] VITALS: BP 110/66
--- NOTE | 2017-08-17 08:42 | PN- Housestaff ---
Subjective Follow-up For: SOB 2/2 to CHF versus COPD exacerbation -positive troponin -b/l extremity edema Subjective: patient not noted to be in distress. sitting in chair. alert and oriented. discomfort secondary to duff which was placed for comfort. no respiratory distress. no headache chest pain. mild left arm edema. Review of Systems Constitutional: Reports: weakness. Cardiovascular: Reports: peripheral edema. Respiratory: Reports: no symptoms. Gastrointestinal: Reports: no symptoms. Genitourinary: Reports: no symptoms. Musculoskeletal: Reports: no symptoms. Skin: Reports: no symptoms. Objective Last 24 Hrs of Vital Signs/I&O Vital Signs Date Time Temp Pulse Resp B/P B/P Pulse O2 O2 Flow FiO2 Mean Ox Delivery Rate 08/17 1600 95 Nasal 2.0L Cannula 08/17 1431 98.0 64 18 110/80 96 Nasal Cannula 08/17 1107 98.2 66 20 110/66 08/17 1106 98.2 66 20 110/66 08/17 0800 95 Nasal 2.0L Cannula 08/17 0701 98.2 66 20 110 95 Nasal 2.0L Cannula 08/17 0000 95 Nasal 2.0L Cannula 08/16 2141 97.8 77 20 140/70 95 08/16 2118 74 124/50 Intake & Output 08/17 1600 08/17 0800 08/17 0000 Intake Total 360 240 Output Total 706 458 5968 Balance -40 -410 -1000 Intake, Oral 360 240 Output, Stool 0 Output, Urine 883 393 9375 Patient 139 lb Weight Weight Bed scale Measurement Method Physical Exam General Appearance: Alert, Cooperative, No Acute Distress Skin: No Rashes, No Breakdown, No Significant Lesion Skin Temp/Moisture Exam: Warm/Dry Sepsis Skin Exam (color): Normal for Ethnicity Cardiovascular: Regular Rate, Normal S1, Normal S2, No Murmurs Lungs: Clear to Auscultation Abdomen: Normal Bowel Sounds, Soft, No Tenderness Neurological: Normal Speech Current Medications: Current Medications Sig/Rick Start time Last Medication Dose Route Stop Time Status Admin Acetaminophen 650 MG Q4P PRN 08/17 1500 AC PO Acetaminophen 325 MG .STK-MED ONE 08/17 0435 DC PO 08/17 0436 Acetaminophen 325 MG Q4P PRN 08/15 1500 DC 08/17 PO 1205 Acetaminophen/ 1 TAB BID PRN 08/06 0430 AC 08/12 Butalbital/Caffeine PO 1303 Aspirin 81 MG DAILY 08/06 09 AC 08/17 PO 1104 Calcium/Vitamin D 1 TAB DAILY 08/06 09 AC 08/17 PO 1105 Carvedilol 6.25 MG BID 08/06 09 AC 08/17 PO 1106 Clopidogrel Bisulfate 75 MG DAILY 08/06 09 AC 08/17 PO 1107 Cyclobenzaprine HCl 5 MG TIDPRN PRN 08/06 0430 AC 08/12 PO 1747 Dicyclomine HCl 20 MG 4 TIMES/DAY PRN 08/15 1445 AC 08/15 PO 1818 Docusate Sodium 100 MG DAILY NEEDED PRN 08/07 1900 AC PO Docusate Sodium 100 MG DAILY 08/06 09 AC 08/17 PO 1105 Ergocalciferol 50,000 IU QWED 08/06 09 AC 08/13 PO 0942 Fenofibrate 48 MG DAILY 08/13 09 AC 08/17 PO 1108 Ferrous Sulfate 325 MG DAILY 08/06 899 AC 08/17 PO 1106 Furosemide 60 MG DAILY 08/16 0900 AC 08/17 PO 1106 Gabapentin 100 MG Q8 08/06 06 AC 08/17 PO 1456 Heparin Sodium 5,000 UNIT Q8 08/11 1630 AC 08/17 (Porcine) SC 1456 Levothyroxine Sodium 0.025 MG DAILY AC 08/06 07 AC 08/17 PO 0601 Lisinopril 10 MG QAM 08/06 09 AC 08/17 PO 1107 Lorazepam 0.5 MG TID 08/17 1450 AC 08/17 PO 08/24 1449 1458 Lorazepam 0.5 MG Q6P PRN 08/15 1500 DC 08/16 IV 1557 Metoclopramide HCl 10 MG TID 08/06 09 AC 08/17 PO 1457 Morphine Sulfate 15 MG Q6P PRN 08/15 1500 AC PO Morphine Sulfate 2 MG Q4P PRN 08/06 0445 DC 08/17 IV 1102 Nitroglycerin 0.4 MG DAILY 08/06 09 AC 08/17 TOP 1107 Omeprazole 20 MG DAILY AC 08/06 07 AC 08/17 PO 0601 Polyethylene Glycol 17 GM DAILY 08/07 1851 AC 08/15 PO 0947 Prednisone 10 MG QAM 08/06 0900 AC 08/17 PO 1106 Senna/Docusate Sodium 1 TAB DAILY NEEDED PRN 08/06 0445 AC 08/07 PO 1837 Sertraline HCl 25 MG QAM 08/06 0900 AC 08/17 PO 1108 Assessment/Plan Assessment: Ms. Corona is a 76-year-old female with past medical history of hypertension, heart failure with preserved ejection fraction, coronary artery disease status post LAD stent, rheumatoid arthritis on chronic prednisone, DVT previously on Eliquis, obstructive sleep apnea on CPAP, aortic regurgitation, chronic kidney disease, anxiety, depression, colonic perforation status post colostomy came in to [facility] on 08/06/2017 with chief complain of worsening shortness of breath with minimal exertion along with bilateral lower and upper extremity edema. Of note she has had multiple admissions over the past 2 months for congestive heart failure, colitis requiring antibiotics, anemia with negative EGD and colonoscopy and this time she returns again with worsening shortness of breath. Problem list along with assessment and plan #1 Acute hypoxic respiratory failure * multifactorial 2/2 to CHF and COPD, she continues to be on 2 L of nasal cannula saturating 96%. no edema noted * Continue to maintain saturations above 92%. * Continue to monitor oxygen saturations. * titrate down as toelrated. #2 Acute on chronic exacerbation of heart failure with preserved ejection fraction. * Cardiology was consulted, input appreciated,she was started on IV furosemide 40 mg daily with daily weights and strict input and output. Patient is now on by mouth Lasix #3 Elevated troponin most likely secondary to type II [place], now resolved. * troponing trended down * type 2 OK in the setting of anemia and CHf exacerbation. * resolved now. #4 Bilateral lower and upper extremity edema most likely secondary to heart failure. * on Lasix * improvign but still present #5 Leukocytosis * resolved. #6 Chronic Kidney Disease stage III * stable #8 Lethargy * she does continue to appear lethargic today morning. * Ct head 08/12/2017 didnto show any acute pathology * could be 2/2 to sob,anemia overall poor functional status. * ct to monitor. #9 Goals of care discussion * patient considering hospice after palliative consult Heart Healthy diet with 2g sodium restriction DVT ppx-ALPS only Heparin SC Problem List: 1. CHF (congestive heart failure) Pain Ratin Pain Location: na Pain Goal: Remain pain free Pain Plan: na Tomorrow's Labs & Rationales: na
--- NOTE | 2017-08-17 12:54 | PN- Att Addend ---
Attending Addendum Attending Brief Note Patient seen and examined. Plan of care discussed with the medical team and the patient. Available lab work and radiology test reports were reviewed. Patient awake alert and sitting in chair this morning. She is complaining of discomfort due to Cueto catheter and wants it to be taken out. She states "I am dying" No respiratory distress noted Exam: General: Patient awake alert oriented without any distress CVS: S1 plus S2 without any murmur or gallops Chest: Few scattered crepitation without any wheeze. There is no respiratory distress. 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 Still requiring 2 L nasal to keep sat. * Acute on Chronic Preserved EF CHF- clinically doing better. * CKD III- stable Cr 1.7 last. * Chronic Pain- on Gabapentin and morphine. * Depression/Anxiety Plan * Discontinue Cueto * Patient is still considering a decision regarding hospice or palliative care. * Continue supportive care and avoid blood draws Current Medications Sig/Rick Start time Last Medication Dose Route Stop Time Status Admin Acetaminophen 325 MG .STK-MED ONE 08/17 0435 DC PO 08/17 0436 Acetaminophen 325 MG Q4P PRN 08/15 1500 AC 08/17 PO 1205 Acetaminophen/ 1 TAB BID PRN 08/06 043 AC 08/12 Butalbital/Caffeine PO 1303 Aspirin 81 MG DAILY 08/06 899 AC 08/17 PO 1104 Calcium/Vitamin D 1 TAB DAILY 08/06 09 AC 08/17 PO 1105 Carvedilol 6.25 MG BID 08/06 09 AC 08/17 PO 1106 Clopidogrel Bisulfate 75 MG DAILY 08/06 09 AC 08/17 PO 1107 Cyclobenzaprine HCl 5 MG TIDPRN PRN 08/06 0430 AC 08/12 PO 1747 Dicyclomine HCl 20 MG 4 TIMES/DAY PRN 08/15 1445 AC 08/15 PO 1818 Docusate Sodium 100 MG DAILY NEEDED PRN 08/07 1900 AC PO Docusate Sodium 100 MG DAILY 08/06 899 AC 08/17 PO 1105 Ergocalciferol 50,000 IU QWED 08/06 899 AC 08/13 PO 0942 Fenofibrate 48 MG DAILY 08/13 09 AC 08/17 PO 1108 Ferrous Sulfate 325 MG DAILY 08/06 09 AC 08/17 PO 1106 Furosemide 60 MG DAILY 08/16 09 AC 08/17 PO 1106 Gabapentin 100 MG Q8 08/06 06 AC 08/17 PO 0601 Heparin Sodium 5,000 UNIT Q8 08/11 1630 AC 08/17 (Porcine) SC 0601 Levothyroxine Sodium 0.025 MG DAILY AC 08/06 07 AC 08/17 PO 0601 Lisinopril 10 MG QAM 08/06 09 AC 08/17 PO 1107 Lorazepam 0.5 MG Q6P PRN 08/15 1500 AC 08/16 IV 1557 Metoclopramide HCl 10 MG TID 08/06 09 AC 08/17 PO 1107 Morphine Sulfate 15 MG Q6P PRN 08/15 1500 AC PO Morphine Sulfate 2 MG Q4P PRN 08/06 0445 DC 08/17 IV 1102 Nitroglycerin 0.4 MG DAILY 08/06 09 AC 08/17 TOP 1107 Omeprazole 20 MG DAILY AC 08/06 07 AC 08/17 PO 0601 Polyethylene Glycol 17 GM DAILY 08/07 1851 AC 08/15 PO 0947 Prednisone 10 MG QAM 08/06 09 AC 08/17 PO 1106 Senna/Docusate Sodium 1 TAB DAILY NEEDED PRN 08/06 0445 AC 08/07 PO 1837 Sertraline HCl 25 MG QAM 08/06 09 AC 08/17 PO 1108 Laboratory Tests 08/15/17 0708: Sodium Cancelled, Potassium Cancelled, Chloride Cancelled, Carbon Dioxide Cancelled, Anion Gap Cancelled, BUN Cancelled, Creatinine Cancelled, BUN/ Creatinine Ratio Cancelled Vital Signs Date Time Temp Pulse Resp B/P B/P Pulse O2 O2 Flow FiO2 Mean Ox Delivery Rate 08/17 1107 98.2 66 20 11008/17 1106 98.2 66 20 110/66 08/17 0701 98.2 66 20 110/ 95 Nasal 2.0L Cannula 08/17 0000 95 Nasal 2.0L Cannula 08/16 2141 97.8 77 20 140/70 95 08/16 2118 74 124/50 08/16 1600 96 Nasal 2.0L Cannula 08/16 1416 98.2 71 20 100/72 93 Nasal Cannula Intake & Output 08/17 1600 08/17 0800 08/17 0000 Intake Total 240 Output Total 804 716 7732 Balance -400 -410 -1000 Intake, Oral 240 Output, Stool 0 Output, Urine [phone] Patient 139 lb Weight Weight Bed scale Measurement Method
[2017-08-17 14:31] VITALS: BP 110/80
[2017-08-17 22:20] VITALS: BP 118/60
[2017-08-18 06:03] VITALS: BP 122/60
--- NOTE | 2017-08-18 09:03 | PN- Housestaff ---
Subjective Follow-up For: SOB 2/2 to CHF versus COPD exacerbation positive troponin b/l extremity edema Subjective: No complaints or acute events overnight Review of Systems Constitutional: Reports: see HPI. Objective Last 24 Hrs of Vital Signs/I&O Vital Signs Date Time Temp Pulse Resp B/P B/P Pulse O2 O2 Flow FiO2 Mean Ox Delivery Rate 08/18 1016 64 102/62 08/18 1016 60 102/62 08/18 0603 97.4 61 20 122/60 95 Nasal 2.0L Cannula 08/18 0000 Nasal 2.0L Cannula 08/17 2220 97.8 67 20 118/60 96 08/17 2117 64 110/80 08/17 1600 95 Nasal 2.0L Cannula 08/17 1431 98.0 64 18 110/80 96 Nasal Cannula Intake & Output 08/18 1600 08/18 0800 08/18 0000 Intake Total 360 360 Output Total 50 Balance 310 360 Intake, Oral 360 360 Number 1 Bowel Movements Output, Stool 50 Patient 144 lb Weight Physical Exam General Appearance: Alert, Oriented X3, Cooperative Cardiovascular: Regular Rate, Normal S1, Normal S2 Lungs: Clear to Auscultation, Normal Air Movement Abdomen: Normal Bowel Sounds, Soft, No Tenderness Current Medications: Current Medications Sig/Rick Start time Last Medication Dose Route Stop Time Status Admin Acetaminophen 650 MG Q4P PRN 08/17 1500 AC 08/18 PO 0546 Acetaminophen 325 MG Q4P PRN 08/15 1500 DC 08/17 PO 1205 Acetaminophen/ 1 TAB BID PRN 08/06 043 AC 08/12 Butalbital/Caffeine PO 1303 Aspirin 81 MG DAILY 08/06 899 AC 08/18 PO 0941 Calcium/Vitamin D 1 TAB DAILY 08/06 899 AC 08/18 PO 0941 Carvedilol 6.25 MG BID 08/06 899 AC 08/18 PO 1016 Clopidogrel Bisulfate 75 MG DAILY 08/06 899 AC 08/18 PO 0941 Cyclobenzaprine HCl 5 MG TIDPRN PRN 08/06 0430 AC 08/12 PO 1747 Dicyclomine HCl 20 MG 4 TIMES/DAY PRN 08/15 1445 AC 08/15 PO 1818 Docusate Sodium 100 MG DAILY NEEDED PRN 08/07 1900 AC PO Docusate Sodium 100 MG DAILY 08/06 899 AC 08/18 PO 0941 Ergocalciferol 50,000 IU QWED 08/06 899 AC 08/13 PO 0942 Fenofibrate 48 MG DAILY 08/13 09 AC 08/18 PO 0942 Ferrous Sulfate 325 MG DAILY 08/06 899 AC 08/18 PO 0941 Furosemide 60 MG DAILY 08/16 0900 AC 08/18 PO 0941 Gabapentin 100 MG Q8 08/06 06 AC 08/18 PO 0545 Heparin Sodium 5,000 UNIT Q8 08/11 1630 AC 08/18 (Porcine) SC 0546 Levothyroxine Sodium 0.025 MG DAILY AC 08/06 07 AC 08/18 PO 0546 Lisinopril 10 MG QAM 08/06 09 AC 08/18 PO 1016 Lorazepam 0.5 MG TID 08/17 1450 AC 08/18 PO 08/24 1449 0944 Lorazepam 0.5 MG Q6P PRN 08/15 1500 DC 08/16 IV 1557 Metoclopramide HCl 10 MG TID 08/06 899 AC 08/18 PO 0941 Morphine Sulfate 15 MG Q6P PRN 08/15 1500 AC 08/18 PO 1010 Morphine Sulfate 2 MG Q4P PRN 08/06 0445 DC 08/17 IV 1102 Nitroglycerin 0.4 MG DAILY 08/06 899 AC 08/18 TOP 0942 Omeprazole 20 MG DAILY AC 08/06 07 AC 08/18 PO 0545 Polyethylene Glycol 17 GM DAILY 08/07 1851 AC 08/15 PO 0947 Prednisone 10 MG QAM 08/06 899 AC 08/18 PO 0941 Senna/Docusate Sodium 1 TAB DAILY NEEDED PRN 08/06 0445 AC 08/07 PO 1837 Sertraline HCl 25 MG QAM 08/06 0900 AC 08/18 PO 0941 Assessment/Plan Assessment: Ms. Corona is a 76-year-old female with past medical history of hypertension, heart failure with preserved ejection fraction, coronary artery disease status post LAD stent, rheumatoid arthritis on chronic prednisone, DVT previously on Eliquis, obstructive sleep apnea on CPAP, aortic regurgitation, chronic kidney disease, anxiety, depression, colonic perforation status post colostomy came in to [facility] on 08/06/2017 with chief complain of worsening shortness of breath with minimal exertion along with bilateral lower and upper extremity edema. Of note she has had multiple admissions over the past 2 months for congestive heart failure, colitis requiring antibiotics, anemia with negative EGD and colonoscopy and this time she returns again with worsening shortness of breath. Problem list along with assessment and plan #1 Acute hypoxic respiratory failure * multifactorial 2/2 to CHF and COPD * Continue to maintain saturations above 92%. * Continue to monitor oxygen saturations * titrate down as tolerated #2 Acute on chronic exacerbation of heart failure with preserved ejection fraction. * Cardiology was consulted, input appreciated, continue IV furosemide 60 mg daily with daily weights and strict input and output. Patient is now on by mouth Lasix #3 Elevated troponin most likely secondary to type II NV, now resolved. * type 2 NV in the setting of anemia and CHf exacerbation. #4 Bilateral lower and upper extremity edema most likely secondary to heart failure. * on Lasix #5 Leukocytosis * resolved #6 Chronic Kidney Disease stage III * stable #8 Lethargy - improving * Ct head 08/12/2017 didnt show any acute pathology * ct to monitor #9 Goals of care discussion * Appreciate Palliative recommendations Heart Healthy diet with 2g sodium restriction DVT ppx-ALPS only Heparin SC Problem List: 1. Fluid overload Pain Ratin Pain Location: NA Pain Goal: Remain pain free Pain Plan: NA Tomorrow's Labs & Rationales: none
--- NOTE | 2017-08-18 11:43 | PN- Att Addend ---
Attending Addendum Attending Brief Note Patient seen and examined. Plan of care discussed with the medical team and the patient. Available lab work and radiology test reports were reviewed. Patient awake alert and sitting in chair this morning. She is more comfortable today after removal of Cueto yesterday. No respiratory distress noted Exam: General: Patient awake alert oriented without any distress CVS: S1 plus S2 without any murmur or gallops Chest: Few scattered crepitation without any wheeze. There is no respiratory distress. 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 Still requiring 2 L nasal to keep sat. * Acute on Chronic Preserved EF CHF- clinically doing better. * CKD III- stable Cr 1.7 last. * Chronic Pain- on Gabapentin and morphine. * Depression/Anxiety Plan * Patient is still considering a decision regarding hospice or palliative care. * Continue supportive care and avoid blood draws * Needs palliative care follow-up tomorrow Current Medications Sig/Rick Start time Last Medication Dose Route Stop Time Status Admin Acetaminophen 650 MG Q4P PRN 08/17 1500 AC 08/18 PO 0546 Acetaminophen 325 MG Q4P PRN 08/15 1500 DC 08/17 PO 1205 Acetaminophen/ 1 TAB BID PRN 08/06 043 AC 08/12 Butalbital/Caffeine PO 1303 Aspirin 81 MG DAILY 08/06 899 AC 08/18 PO 0941 Calcium/Vitamin D 1 TAB DAILY 08/06 899 AC 08/18 PO 0941 Carvedilol 6.25 MG BID 08/06 899 AC 08/18 PO 1016 Clopidogrel Bisulfate 75 MG DAILY 08/06 899 AC 08/18 PO 0941 Cyclobenzaprine HCl 5 MG TIDPRN PRN 08/06 0430 AC 08/12 PO 1747 Dicyclomine HCl 20 MG 4 TIMES/DAY PRN 08/15 1445 AC 08/15 PO 1818 Docusate Sodium 100 MG DAILY NEEDED PRN 08/07 1900 AC PO Docusate Sodium 100 MG DAILY 08/06 899 AC 08/18 PO 0941 Ergocalciferol 50,000 IU QWED 08/06 899 AC 08/13 PO 0942 Fenofibrate 48 MG DAILY 08/13 09 AC 08/18 PO 0942 Ferrous Sulfate 325 MG DAILY 08/06 09 AC 08/18 PO 0941 Furosemide 60 MG DAILY 08/16 09 AC 08/18 PO 0941 Gabapentin 100 MG Q8 08/06 0600 AC 08/18 PO 0545 Heparin Sodium 5,000 UNIT Q8 08/11 1630 AC 08/18 (Porcine) SC 0546 Levothyroxine Sodium 0.025 MG DAILY AC 08/06 07 AC 08/18 PO 0546 Lisinopril 10 MG QAM 08/06 09 AC 08/18 PO 1016 Lorazepam 0.5 MG TID 08/17 1450 AC 08/18 PO 08/24 1449 0944 Lorazepam 0.5 MG Q6P PRN 08/15 1500 MT 08/16 IV 1557 Metoclopramide HCl 10 MG TID 08/06 09 AC 08/18 PO 0941 Morphine Sulfate 15 MG Q6P PRN 08/15 1500 AC 08/18 PO 1010 Morphine Sulfate 2 MG Q4P PRN 08/06 0445 MT 08/17 IV 1102 Nitroglycerin 0.4 MG DAILY 08/06 09 08/18 TOP 0942 Omeprazole 20 MG DAILY AC 08/06 07 AC 08/18 PO 0545 Polyethylene Glycol 17 GM DAILY 08/07 1851 AC 08/15 PO 0947 Prednisone 10 MG QAM 08/06 09 08/18 PO 0941 Senna/Docusate Sodium 1 TAB DAILY NEEDED PRN 08/06 0445 AC 08/07 PO 1837 Sertraline HCl 25 MG QAM 08/06 09 08/18 PO 0941 Vital Signs Date Time Temp Pulse Resp B/P B/P Pulse O2 O2 Flow FiO2 Mean Ox Delivery Rate 08/18 1016 64 102/62 08/18 1016 60 102/62 08/18 0603 97.4 61 20 122/60 95 Nasal 2.0L Cannula 08/18 0000 Nasal 2.0L Cannula 08/17 2220 97.8 67 20 118/60 96 08/17 2117 64 110/80 08/17 1600 95 Nasal 2.0L Cannula 08/17 1431 98.0 64 18 110/80 96 Nasal Cannula Intake & Output 08/18 1600 08/18 0800 08/18 0000 Intake Total 360 360 Output Total 50 Balance 310 360 Intake, Oral 360 360 Number 1 Bowel Movements Output, Stool 50 Patient 144 lb Weight No new labs done today.
[2017-08-18 15:04] VITALS: BP 110/65
[2017-08-18 22:02] VITALS: BP 120/70
[2017-08-19 07:13] VITALS: BP 118/58
--- NOTE | 2017-08-19 07:37 | PN- Housestaff ---
Сергей Morfin 08/19/17 0737: Subjective Follow-up For: SOB 2/2 to CHF versus COPD exacerbation positive troponin b/l extremity edema Complaints: no complaints Subjective: Seen and examined the patient today morning, she is alert and oriented however continues to be lethargic. He talked to his son at length, he wishes that his mother should be going to short-term rehabilitation if affordable for better management of her care, will discuss with case management, no new complaints. Review of Systems Constitutional: Reports: see HPI. Objective Last 24 Hrs of Vital Signs/I&O Vital Signs Date Time Temp Pulse Resp B/P B/P Pulse O2 O2 Flow FiO2 Mean Ox Delivery Rate 08/19 1519 98.5 74 20 98/58 94 08/19 0916 97.9 68 20 118/58 08/19 0915 97.9 68 20 118/58 08/19 0713 97.9 68 20 /58 98 Nasal 2.0L Cannula 08/19 0000 95 Nasal 2.0L Cannula 08/18 2202 98.3 67 20 120/70 95 08/18 2053 67 120/70 Intake & Output 08/19 1600 08/19 0800 08/19 0000 Intake Total 760 480 Output Total 1 Balance 760 -1 480 Intake, Oral 760 480 Output, Stool 1 Patient 65.091 kg Weight Weight Bed scale Measurement Method Physical Exam General Appearance: Alert, Oriented X3, Cooperative, Mild Distress HEENT: Atraumatic, PERRLA, EOMI Cardiovascular: Regular Rate, Normal S1, Normal S2, No Murmurs Lungs: Clear to Auscultation, Normal Air Movement Abdomen: Normal Bowel Sounds, Soft, No Tenderness Extremities: No Cyanosis, No Edema, Normal Pulses Vascular: Normal Pulses Current Medications: Current Medications Sig/Rick Start time Last Medication Dose Route Stop Time Status Admin Acetaminophen 650 MG Q4P PRN 08/17 1500 AC 08/18 PO 0546 Acetaminophen/ 1 TAB BID PRN 08/06 0430 AC 08/12 Butalbital/Caffeine PO 1303 Aspirin 81 MG DAILY 08/06 899 AC 08/19 PO 0914 Calcium/Vitamin D 1 TAB DAILY 08/06 899 AC 08/19 PO 0914 Carvedilol 6.25 MG BID 08/06 899 AC 08/19 PO 0915 Clopidogrel Bisulfate 75 MG DAILY 08/06 899 AC 08/19 PO 0916 Cyclobenzaprine HCl 5 MG TIDPRN PRN 08/06 0430 AC 08/12 PO 1747 Dicyclomine HCl 20 MG 4 TIMES/DAY PRN 08/15 1445 AC 08/15 PO 1818 Docusate Sodium 100 MG DAILY NEEDED PRN 08/07 1900 AC PO Docusate Sodium 100 MG DAILY 08/06 09 AC 08/19 PO 0914 Ergocalciferol 50,000 IU QWED 08/06 09 AC 08/13 PO 0942 Fenofibrate 48 MG DAILY 08/13 0900 AC 08/19 PO 0916 Ferrous Sulfate 325 MG DAILY 08/06 09 AC 08/19 PO 0915 Furosemide 60 MG DAILY 08/16 09 AC 08/19 PO 0915 Gabapentin 100 MG Q8 08/06 06 AC 08/19 PO 1324 Heparin Sodium 5,000 UNIT Q8 08/11 1630 AC 08/19 (Porcine) SC 0535 Levothyroxine Sodium 0.025 MG DAILY AC 08/06 07 AC 08/19 PO 0535 Lisinopril 10 MG QAM 08/06 0900 AC 08/19 PO 0916 Lorazepam 0.5 MG TID 08/17 1450 AC 08/19 PO 08/24 1449 1324 Metoclopramide HCl 10 MG TID 08/06 09 AC 08/19 PO 1324 Morphine Sulfate 15 MG Q6P PRN 08/15 1500 AC 08/18 PO 1010 Nitroglycerin 0.4 MG DAILY 08/06 09 AC 08/19 TOP 0916 Omeprazole 20 MG DAILY AC 08/06 07 AC 08/19 PO 0535 Polyethylene Glycol 17 GM DAILY 08/07 1851 AC 08/19 PO 0914 Prednisone 10 MG QAM 08/06 09 AC 08/19 PO 0916 Senna/Docusate Sodium 1 TAB DAILY NEEDED PRN 08/06 0445 AC 08/07 PO 1837 Sertraline HCl 25 MG QAM 08/06 09 AC 08/19 PO 0916 Last 24 Hrs of Lab/Rubin Results Last 24 Hrs of Labs/Mics: Laboratory Tests 08/19/17 1250: Anion Gap 4 L, Estimated GFR 26 L, BUN/Creatinine Ratio 23.2 Lines/Diet/Fluids Restraints: none Assessment/Plan Assessment: Ms. Corona is a 76-year-old female with past medical history of hypertension, heart failure with preserved ejection fraction, coronary artery disease status post LAD stent, rheumatoid arthritis on chronic prednisone, DVT previously on Eliquis, obstructive sleep apnea on CPAP, aortic regurgitation, chronic kidney disease, anxiety, depression, colonic perforation status post colostomy came in to [facility] on 08/06/2017 with chief complain of worsening shortness of breath with minimal exertion along with bilateral lower and upper extremity edema. Of note she has had multiple admissions over the past 2 months for congestive heart failure, colitis requiring antibiotics, anemia with negative EGD and colonoscopy and this time she returns again with worsening shortness of breath. Problem list along with assessment and plan #1 Acute hypoxic respiratory failure * multifactorial 2/2 to CHF and COPD * Continue to maintain saturations above 92%. * Continue to monitor oxygen saturations * titrate down as tolerated #2 Acute on chronic exacerbation of heart failure with preserved ejection fraction. * Cardiology was consulted, input appreciated, continue PO furosemide 60 mg daily with daily weights and strict input and output. Patient is now on by mouth Lasix #3 Elevated troponin most likely secondary to type II UT, now resolved. * type 2 UT in the setting of anemia and CHf exacerbation. #4 Bilateral lower and upper extremity edema most likely secondary to heart failure. * on Lasix #5 Leukocytosis * resolved #6 Chronic Kidney Disease stage III * stable #8 Lethargy - improving * Ct head 08/12/2017 didnt show any acute pathology * ct to monitor #9 Goals of care discussion * We discussed her care with her son James at length, he was gravitating towards sending her mother to short-term rehabilitation if affordable, his management to further discuss the options with her son, disposition based on discussion with case management. Anticipate discharge tomorrow. Heart Healthy diet with 2g sodium restriction DVT ppx-ALPS only Heparin SC Problem List: 1. Superficial thrombophlebitis 2. Leukocytosis 3. Fluid overload 4. ACS (acute coronary syndrome) 5. Diverticulosis Pain Ratin Pain Location: none Pain Goal: Remain pain free Pain Plan: current Tomorrow's Labs & Rationales: bep Discharge Plan Stable for Discharge? No Anticipated Discharge (Day): tomorrow If Discharged Today/In 24 Hrs: CMR done Miryam Luevano 08/19/17 1613: Attending MD Review Statement Attending Statement Attending MD Statement: examined this patient, discuss w/resident/PA/PAPERBACK MACHINE OPERATOR, agreed w/resident/PA/PAPERBACK MACHINE OPERATOR, reviewed EMR data (avail), discussed with nursing, discussed with case mgmt Attending Assessment/Plan: D/w pt again the goals of care. pt not sure about if she wants to be hospice yet. Cont on po lasxi 60mg qdaily. Cr little worse at 1.9. BUN better. cont current management for chf. 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 cont current management. cont on protein supplementation.
[2017-08-19 15:19] VITALS: BP 98/58
[2017-08-19 22:51] VITALS: BP 104/50
[2017-08-20 06:34] VITALS: BP 100/44
--- NOTE | 2017-08-20 07:37 | PN- Housestaff ---
Сергей Morfin 08/20/17 0737: Subjective Follow-up For: SOB 2/2 to CHF versus COPD exacerbation positive troponin b/l extremity edema Complaints: no complaints Subjective: Seen and examined the patient today morning, she is alert and oriented however continues to be lethargic. He talked to his son at length, he wishes that his mother should be going to short-term rehabilitation if affordable for better management of her care, will discuss with case management, no new complaints. Review of Systems Constitutional: Reports: see HPI. Objective Last 24 Hrs of Vital Signs/I&O Vital Signs Date Time Temp Pulse Resp B/P B/P Pulse O2 O2 Flow FiO2 Mean Ox Delivery Rate 08/20 0634 97.9 66 20 100/44 94 Nasal 2.0L Cannula 08/19 2251 98.6 74 20 104/50 95 Nasal 2.0L Cannula 08/19 2159 74 104/50 08/19 1519 98.5 74 20 98/58 94 08/19 0916 97.9 68 20 118/58 08/19 0915 97.9 68 20 118/58 Intake & Output 08/20 0800 08/20 0000 08/19 1600 Intake Total 760 Output Total Balance 760 Intake, Oral 760 Patient 64.183 kg Weight Physical Exam General Appearance: Alert, Oriented X3, Cooperative, No Acute Distress Current Medications: Current Medications Sig/Rick Start time Last Medication Dose Route Stop Time Status Admin Acetaminophen 650 MG Q4P PRN 08/17 1500 AC 08/18 PO 0546 Acetaminophen/ 1 TAB BID PRN 08/06 429 AC 08/12 Butalbital/Caffeine PO 1303 Aspirin 81 MG DAILY 08/06 899 AC 08/19 PO 0914 Calcium/Vitamin D 1 TAB DAILY 08/06 899 AC 08/19 PO 0914 Carvedilol 6.25 MG BID 08/06 PO 2159 Clopidogrel Bisulfate 75 MG DAILY 08/06 899 AC 08/19 PO 0916 Cyclobenzaprine HCl 5 MG TIDPRN PRN 08/06 04308/12 PO 1747 Dicyclomine HCl 20 MG 4 TIMES/DAY PRN 08/15 1445 AC 08/15 PO 1818 Docusate Sodium 100 MG DAILY NEEDED PRN 08/07 1900 AC PO Docusate Sodium 100 MG DAILY 08/06 899 AC 08/19 PO 0914 Ergocalciferol 50,000 IU QWED 08/06 09 AC 08/13 PO 0942 Fenofibrate 48 MG DAILY 08/13 0900 AC 08/19 PO 0916 Ferrous Sulfate 325 MG DAILY 08/06 0900 AC 08/19 PO 0915 Furosemide 60 MG DAILY 08/16 0900 AC 08/19 PO 0915 Gabapentin 100 MG Q8 08/06 06 AC 08/20 PO 0611 Heparin Sodium 5,000 UNIT Q8 08/11 1630 AC 08/20 (Porcine) SC 0611 Levothyroxine Sodium 0.025 MG DAILY AC 08/06 0700 AC 08/20 PO 0611 Lisinopril 10 MG QAM 08/06 0900 AC 08/19 PO 0916 Lorazepam 0.5 MG TID 08/17 1450 AC 08/19 PO 08/24 1449 2159 Metoclopramide HCl 10 MG TID 08/06 09 AC 08/19 PO 2159 Morphine Sulfate 15 MG Q6P PRN 08/15 1500 AC 08/18 PO 1010 Nitroglycerin 0.4 MG DAILY 08/06 09 AC 08/19 TOP 0916 Omeprazole 20 MG DAILY AC 08/06 0700 AC 08/20 PO 0611 Polyethylene Glycol 17 GM DAILY 08/07 1851 AC 08/19 PO 0914 Prednisone 10 MG QAM 08/06 0900 AC 08/19 PO 0916 Senna/Docusate Sodium 1 TAB DAILY NEEDED PRN 08/06 0445 AC 08/07 PO 1837 Sertraline HCl 25 MG QAM 08/06 09 AC 08/19 PO 0916 Last 24 Hrs of Lab/Rubin Results Last 24 Hrs of Labs/Mics: Laboratory Tests 08/19/17 1250: Anion Gap 4 L, Estimated GFR 26 L, BUN/Creatinine Ratio 23.2 Lines/Diet/Fluids Restraints: none Assessment/Plan Assessment: Ms. Corona is a 76-year-old female with past medical history of hypertension, heart failure with preserved ejection fraction, coronary artery disease status post LAD stent, rheumatoid arthritis on chronic prednisone, DVT previously on Eliquis, obstructive sleep apnea on CPAP, aortic regurgitation, chronic kidney disease, anxiety, depression, colonic perforation status post colostomy came in to [facility] on 08/06/2017 with chief complain of worsening shortness of breath with minimal exertion along with bilateral lower and upper extremity edema. Of note she has had multiple admissions over the past 2 months for congestive heart failure, colitis requiring antibiotics, anemia with negative EGD and colonoscopy and this time she returns again with worsening shortness of breath. Problem list along with assessment and plan #1 Acute hypoxic respiratory failure * multifactorial 2/2 to CHF and COPD * Continue to maintain saturations above 92%. * Continue to monitor oxygen saturations * titrate down as tolerated #2 Acute on chronic exacerbation of heart failure with preserved ejection fraction. * Cardiology was consulted, input appreciated, continue PO furosemide 60 mg daily with daily weights and strict input and output. Patient is now on by mouth Lasix #3 Elevated troponin most likely secondary to type II [place], now resolved. * type 2 [place] in the setting of anemia and CHf exacerbation. #4 Bilateral lower and upper extremity edema most likely secondary to heart failure. * on Lasix #5 Leukocytosis * resolved #6 Chronic Kidney Disease stage III * stable #8 Lethargy - improving * Ct head 08/12/2017 didnt show any acute pathology * ct to monitor #9 Goals of care discussion * We discussed her care with her son James at length, he was gravitating towards sending her mother to short-term rehabilitation if affordable, touch base with his son Mr. Ramirez in order to have a family meeting with the entire team tomorrow, he is to himself get in touch with his brother Mr. Frias and call us back to plan a suitable time for meeting tomorrow 08/21/2017. Heart Healthy diet with 2g sodium restriction DVT ppx-ALPS only Heparin SC Problem List: 1. Leukocytosis 2. Fluid overload 3. Acute respiratory failure 4. [id number] kidney injury Pain Ratin Pain Location: none Pain Goal: Remain pain free Pain Plan: current plan Tomorrow's Labs & Rationales: not needed Miryam Luevano 08/20/17 1352: Attending MD Review Statement Attending Statement Attending MD Statement: examined this patient, discuss w/resident/PA/PHONE TRIAGE SPECIALIST, agreed w/resident/PA/PHONE TRIAGE SPECIALIST, reviewed EMR data (avail), discussed with nursing, discussed with case mgmt Attending Assessment/Plan: Will plan a family conference with pt as well as pts son tomorrow. 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 Pt does not want to go to rehab herself but her son's want her to go to rehab. cont lasix 60mg po for now. will d/w family tomorrow about home with hospice vs comfort cares at a facility. d.w pt the care plan.
[2017-08-20 14:54] VITALS: BP 96/50
[2017-08-20 21:56] VITALS: BP 90/58
[2017-08-21 07:03] VITALS: BP 112/58
--- NOTE | 2017-08-21 07:25 | PN- Housestaff ---
Сергей Morfin 08/21/17 0723: Subjective Follow-up For: SOB 2/2 to CHF versus COPD exacerbation positive troponin b/l extremity edema Complaints: no complaints Subjective: Seen and examined the patient today morning, she is alert, however severely depressed, lethargic, is having visual hallucination, perhaps we will reduce the benzodiazepine dosage as she seems to be extremely sleepy while on it had a family meeting today with both the sons, patient will be going home with home hospice was the decision taken during the family meeting. Review of Systems Constitutional: Reports: see HPI. Objective Last 24 Hrs of Vital Signs/I&O Vital Signs Date Time Temp Pulse Resp B/P B/P Pulse O2 O2 Flow FiO2 Mean Ox Delivery Rate 08/21 0703 97.8 67 20 112/58 97 Nasal Cannula 08/21 0000 Nasal 2.0L Cannula 08/20 2156 98.1 68 20 90/58 98 08/20 2134 68 90/58 08/20 1600 93 Nasal 2.0L Cannula 08/20 1454 97.4 69 20 96/50 93 08/20 1028 97.9 66 20 100/44 Intake & Output 08/21 0800 08/21 0000 08/20 1600 Intake Total 180 180 720 Output Total Balance 180 180 720 Intake, Oral 180 180 720 Number 1 Bowel Movements Physical Exam General Appearance: Cooperative, No Acute Distress, Mild Distress HEENT: Atraumatic, PERRLA, EOMI Cardiovascular: Normal S1, Normal S2, No Murmurs Lungs: Clear to Auscultation, Normal Air Movement Abdomen: Normal Bowel Sounds, Soft, No Tenderness Extremities: No Clubbing, No Cyanosis, No Edema, Normal Pulses Vascular: Normal Pulses Current Medications: Current Medications Sig/Rick Start time Last Medication Dose Route Stop Time Status Admin Acetaminophen 325 MG .STK-MED ONE 08/20 1023 DC PO 08/20 1024 Acetaminophen 650 MG Q4P PRN 08/17 1500 AC 08/20 PO 1025 Acetaminophen/ 1 TAB BID PRN 08/06 0430 AC 08/12 Butalbital/Caffeine PO 1303 Aspirin 81 MG DAILY 08/06 899 AC 08/20 PO 1029 Calcium/Vitamin D 1 TAB DAILY 08/06 899 AC 08/20 PO 1026 Carvedilol 6.25 MG BID 08/06 899 AC 08/20 PO 1027 Clopidogrel Bisulfate 75 MG DAILY 08/06 899 AC 08/20 PO 1028 Cyclobenzaprine HCl 5 MG TIDPRN PRN 08/06 0430 AC 08/12 PO 1747 Dicyclomine HCl 20 MG 4 TIMES/DAY PRN 08/15 1445 AC 08/15 PO 1818 Docusate Sodium 100 MG DAILY NEEDED PRN 08/07 1900 AC PO Docusate Sodium 100 MG DAILY 08/06 09 AC 08/20 PO 1026 Ergocalciferol 50,000 IU QWED 08/06 09 AC 08/20 PO 1026 Fenofibrate 48 MG DAILY 08/13 0900 AC 08/20 PO 1029 Ferrous Sulfate 325 MG DAILY 08/06 09 AC 08/20 PO 1027 Furosemide 60 MG DAILY 08/16 09 AC 08/20 PO 1027 Gabapentin 100 MG Q8 08/06 06 AC 08/21 PO 0607 Heparin Sodium 5,000 UNIT Q8 08/11 1630 AC 08/21 (Porcine) SC 0607 Levothyroxine Sodium 0.025 MG DAILY AC 08/06 07 AC 08/21 PO 0607 Lisinopril 10 MG QAM 08/06 0900 AC 08/20 PO 1028 Lorazepam 0.5 MG TID 08/17 1450 AC 08/20 PO 08/24 1449 2133 Metoclopramide HCl 10 MG TID 08/06 09 AC 08/20 PO 2133 Morphine Sulfate 15 MG Q6P PRN 08/15 1500 AC 08/18 PO 1010 Nitroglycerin 0.4 MG DAILY 08/06 09 AC 08/20 TOP 1029 Omeprazole 20 MG DAILY AC 08/06 07 AC 08/21 PO 0607 Polyethylene Glycol 17 GM DAILY 08/07 1851 AC 08/20 PO 1028 Prednisone 10 MG QAM 08/06 09 AC 08/20 PO 1028 Senna/Docusate Sodium 1 TAB DAILY NEEDED PRN 08/06 0445 AC 08/07 PO 1837 Sertraline HCl 25 MG QAM 08/06 09 AC 08/20 PO 1029 Last 24 Hrs of Lab/Rubin Results Last 24 Hrs of Labs/Mics: Laboratory Tests 08/20/17 0812: Anion Gap 5, Estimated GFR 24 L, BUN/Creatinine Ratio 21.0 Lines/Diet/Fluids Restraints: none Assessment/Plan Assessment: Ms. Corona is a 76-year-old female with past medical history of hypertension, heart failure with preserved ejection fraction, coronary artery disease status post LAD stent, rheumatoid arthritis on chronic prednisone, DVT previously on Eliquis, obstructive sleep apnea on CPAP, aortic regurgitation, chronic kidney disease, anxiety, depression, colonic perforation status post colostomy came in to [facility] on 08/06/2017 with chief complain of worsening shortness of breath with minimal exertion along with bilateral lower and upper extremity edema. Of note she has had multiple admissions over the past 2 months for congestive heart failure, colitis requiring antibiotics, anemia with negative EGD and colonoscopy and this time she returns again with worsening shortness of breath. Problem list along with assessment and plan #1 Acute hypoxic respiratory failure * multifactorial 2/2 to CHF and COPD * Continue to maintain saturations above 92%. * Continue to monitor oxygen saturations * titrate down as tolerated #2 Acute on chronic exacerbation of heart failure with preserved ejection fraction. * Cardiology was consulted, input appreciated, continue PO furosemide 60 mg daily with daily weights and strict input and output. Patient is now on by mouth Lasix #3 Elevated troponin most likely secondary to type II [place], now resolved. * type 2 [place] in the setting of anemia and CHf exacerbation. #4 Bilateral lower and upper extremity edema most likely secondary to heart failure. * on Lasix #5 Leukocytosis * resolved #6 Chronic Kidney Disease stage III * stable #8 Lethargy - improving * Ct head 08/12/2017 didnt show any acute pathology * ct to monitor #9 Goals of care discussion * Also of care discussion meeting held today with both the sons at bedside with the entire house staff team, decision was made to discharge her home with home hospice. Heart Healthy diet with 2g sodium restriction DVT ppx-ALPS only Heparin SC Problem List: 1. Superficial thrombophlebitis 2. Leukocytosis 3. Fluid overload 4. ACS (acute coronary syndrome) Pain Ratin Pain Location: .. Pain Goal: Remain pain free Pain Plan: .. Tomorrow's Labs & Rationales: .. Miryam Luevano 08/21/17 1521: Attending MD Review Statement Attending Statement Attending MD Statement: examined this patient, discuss w/resident/PA/NETWORK ENGINEER ADMINISTRATOR, agreed w/resident/PA/NETWORK ENGINEER ADMINISTRATOR, discussed with family, reviewed EMR data (avail), discussed with nursing, discussed with case mgmt Attending Assessment/Plan: Had a family meeting this am to discuss goals of care with pt and her 2 sons. Patient opted for hospice care at home so case management is working on arranging that and pt will possibly be dced tomorrow home with hospice care.
[2017-08-21 14:32] VITALS: BP 108/62
[2017-08-21 22:17] VITALS: BP 118/62
[2017-08-22 06:00] VITALS: BP 104/54
--- NOTE | 2017-08-22 07:23 | PN- Housestaff ---
Сергей Morfin 08/22/17 0722: Subjective Follow-up For: SOB 2/2 to CHF versus COPD exacerbation positive troponin b/l extremity edema Complaints: no complaints Subjective: Seen and examined the patient today morning, she is alert, however severely depressed, lethargic, is having visual hallucination, otherwise eatign breakfast , no new complaints. Review of Systems Constitutional: Reports: see HPI. Objective Last 24 Hrs of Vital Signs/I&O Vital Signs Date Time Temp Pulse Resp B/P B/P Pulse O2 O2 Flow FiO2 Mean Ox Delivery Rate 08/22 06 97.9 63 18 104/54 94 Nasal 2.0L Cannula 08/22 0000 97 Nasal 2.0L Cannula 08/21 2217 97.7 65 16 118/62 96 Nasal 2.0L Cannula 08/21 2024 68 100/52 08/21 1432 97.7 71 20 108/62 94 Nasal 2.0L Cannula 08/21 1001 97.8 67 20 112/58 08/21 1000 97.8 67 20 112/58 Intake & Output 08/22 0800 08/22 0000 08/21 1600 Intake Total 120 120 350 Output Total Balance 120 120 350 Intake, Oral 120 120 350 Physical Exam General Appearance: Alert, Oriented X3, Cooperative Skin: No Rashes, No Breakdown, No Significant Lesion Lymphatic: no lad Cardiovascular: Regular Rate, Normal S1, Normal S2, No Murmurs Lungs: Clear to Auscultation, Normal Air Movement Abdomen: Normal Bowel Sounds, Soft, No Tenderness, No Hepatospenomegaly Current Medications: Current Medications Sig/Rick Start time Last Medication Dose Route Stop Time Status Admin Acetaminophen 650 MG .STK-MED ONE 08/21 1339 DC RI 08/21 1340 Acetaminophen 650 MG Q4P PRN 08/17 1500 AC 08/20 PO 1025 Acetaminophen/ 1 TAB BID PRN 08/06 429 AC 08/21 Butalbital/Caffeine PO 1743 Aspirin 81 MG DAILY 08/06 899 AC 08/21 PO 0959 Calcium/Vitamin D 1 TAB DAILY 08/06 899 AC 08/21 PO 0959 Carvedilol 6.25 MG BID 08/06 899 AC 08/21 PO 1001 Clopidogrel Bisulfate 75 MG DAILY 08/06 899 AC 08/21 PO 0959 Cyclobenzaprine HCl 5 MG TIDPRN PRN 08/06 429 AC 08/12 PO 1747 Dicyclomine HCl 20 MG 4 TIMES/DAY PRN 08/15 1445 AC 08/15 PO 1818 Docusate Sodium 100 MG DAILY NEEDED PRN 08/07 1900 AC PO Docusate Sodium 100 MG DAILY 08/06 09 AC 08/21 PO 0959 Ergocalciferol 50,000 IU QWED 08/06 899 AC 08/20 PO 1026 Fenofibrate 48 MG DAILY 08/13 09 AC 08/21 PO 1000 Ferrous Sulfate 325 MG DAILY 08/06 09 AC 08/21 PO 1001 Furosemide 60 MG DAILY 08/16 09 AC 08/21 PO 1001 Gabapentin 100 MG Q8 08/06 06 AC 08/22 PO 0536 Heparin Sodium 5,000 UNIT Q8 08/11 1630 AC 08/22 (Porcine) SC 0536 Levothyroxine Sodium 0.025 MG DAILY AC 08/06 07 AC 08/22 PO 0536 Lisinopril 10 MG QAM 08/06 09 AC 08/21 PO 1000 Lorazepam 0.5 MG DAILY NEEDED PRN 08/21 1215 AC PO Lorazepam 0.5 MG DAILY NEEDED PRN 08/21 1130 DC IV Lorazepam 0.5 MG TID 08/17 1450 DC 08/20 PO 08/24 1449 2133 Metoclopramide HCl 10 MG TID 08/06 899 AC 08/21 PO 2023 Morphine Sulfate 15 MG Q6P PRN 08/15 1500 AC 08/18 PO 1010 Nitroglycerin 0.4 MG DAILY 08/06 09 AC 08/21 TOP 1000 Omeprazole 20 MG DAILY AC 08/06 07 AC 08/22 PO 0536 Polyethylene Glycol 17 GM DAILY 08/07 1851 AC 08/21 PO 1000 Prednisone 10 MG QAM 08/06 899 AC 08/21 PO 0959 Senna/Docusate Sodium 1 TAB DAILY NEEDED PRN 08/06 0445 AC 08/07 PO 1837 Sertraline HCl 25 MG QAM 08/06 09 AC 08/21 PO 1001 Lines/Diet/Fluids Restraints: none Assessment/Plan Assessment: Ms. Corona is a 76-year-old female with past medical history of hypertension, heart failure with preserved ejection fraction, coronary artery disease status post LAD stent, rheumatoid arthritis on chronic prednisone, DVT previously on Eliquis, obstructive sleep apnea on CPAP, aortic regurgitation, chronic kidney disease, anxiety, depression, colonic perforation status post colostomy came in to [facility] on 08/06/2017 with chief complain of worsening shortness of breath with minimal exertion along with bilateral lower and upper extremity edema. Of note she has had multiple admissions over the past 2 months for congestive heart failure, colitis requiring antibiotics, anemia with negative EGD and colonoscopy and this time she returns again with worsening shortness of breath. Problem list along with assessment and plan #1 Acute hypoxic respiratory failure * multifactorial 2/2 to CHF and COPD * Continue to maintain saturations above 92%. * Continue to monitor oxygen saturations * titrate down as tolerated #2 Acute on chronic exacerbation of heart failure with preserved ejection fraction. * Cardiology was consulted, input appreciated, continue PO furosemide 60 mg daily with daily weights and strict input and output. Patient is now on by mouth Lasix #3 Elevated troponin most likely secondary to type II [place], now resolved. * type 2 [place] in the setting of anemia and CHf exacerbation. #4 Bilateral lower and upper extremity edema most likely secondary to heart failure. * on Lasix #5 Leukocytosis * resolved #6 Chronic Kidney Disease stage III * stable #8 Lethargy - improving * Ct head 08/12/2017 didnt show any acute pathology * ct to monitor #9 Goals of care discussion * Also of care discussion meeting held today with both the sons at bedside with the entire house staff team, decision was made to discharge her home with home hospice. Heart Healthy diet with 2g sodium restriction DVT ppx-ALPS only Heparin SC Problem List: 1. ACS (acute coronary syndrome) 2. Myocardial infarction type 2 3. Leukocytosis 4. Fluid overload 5. Acute respiratory failure Pain Ratin Pain Location: Pain mx Pain Goal: Remain pain free Pain Plan: current plan Tomorrow's Labs & Rationales: not needed Discharge Plan Discharge Disposition: home Stable for Discharge? Yes Anticipated Discharge (Day): today If Discharged Today/In 24 Hrs: enter [facility] discharge ord, W-10/discharge paper done, DC summary done, CMR done Miryam Luevano 08/22/17 1507: Attending Review Statement Attending Statement Attending MD Statement: examined this patient, discuss w/resident/PA/SURVEILLANCE MANAGER, agreed w/resident/PA/SURVEILLANCE MANAGER, reviewed EMR data (avail), discussed with nursing, discussed with case mgmt Attending Assessment/Plan: Pt being dced home with hospice care after discussion with family about goals of care . Pt wants to be comfortable and case management has arranged for hospice care and other requirements. see dc summary for more details.
[2017-08-22 14:25] VITALS: BP 110/54
== END 2017-08-22 16:20 | disposition home or self-care (01) | DRG 280 ==
LOC: ERH 22:30 → 2NA 08-06 03:23 → CRI 08-06 03:23 → ERHI 08-06 03:23 → 1NO 08-06 03:23 → ENRESERV 08-06 03:57 → CRI 08-06 05:16 → ENTRNSPT 08-08 11:57 → EDTRNSPT 08-08 12:31 → EDTRNSPTSTS 08-08 12:31 → CMPTRNSPT 08-08 13:02 → 1NO 08-08 13:03 → ENTRNSPT 08-13 21:16 → 2NA 08-13 21:53 → CMPTRNSPT 08-13 21:59 → 2NA 08-20 08:12
PROVIDERS: Emergency Medicine; Internal Medicine; Preventive Medicine Public Health & General Preventive Medicine; Student in an Organized Health Care Education/Training Program
PROC: 30233N1 Transfusion of Nonautologous Red Blood Cells into Peripheral Vein, Percutaneous Approach (ICD-10-PCS; principal; 2017-08-07)
DX: I11.0 Hypertensive heart disease with heart failure (principal); I21.A1 Myocardial infarction type 2; J96.01 Acute respiratory failure with hypoxia; N18.4 Chronic kidney disease, stage 4 (severe); I82.612 Acute embolism and thrombosis of superficial veins of left upper extremity; D62 Acute posthemorrhagic anemia; N17.9 Acute kidney failure, unspecified; E85.4 Organ-limited amyloidosis; K92.2 Gastrointestinal hemorrhage, unspecified; I50.33 Acute on chronic diastolic (congestive) heart failure; M06.9 Rheumatoid arthritis, unspecified; D63.1 Anemia in chronic kidney disease; E88.09 Other disorders of plasma-protein metabolism, not elsewhere classified; N08 Glomerular disorders in diseases classified elsewhere; E87.5 Hyperkalemia; J44.9 Chronic obstructive pulmonary disease, unspecified; F32.9 Major depressive disorder, single episode, unspecified; G47.33 Obstructive sleep apnea (adult) (pediatric); Z93.3 Colostomy status; F41.9 Anxiety disorder, unspecified; E55.9 Vitamin D deficiency, unspecified; G47.00 Insomnia, unspecified; Z90.49 Acquired absence of other specified parts of digestive tract; Z90.710 Acquired absence of both cervix and uterus; G89.29 Other chronic pain; I25.10 Atherosclerotic heart disease of native coronary artery without angina pectoris; E66.9 Obesity, unspecified; Z68.35 Body mass index [BMI] 35.0-35.9, adult; Z86.718 Personal history of other venous thrombosis and embolism; Z66 Do not resuscitate; Z87.891 Personal history of nicotine dependence; Z88.8 Allergy status to other drugs, medicaments and biological substances; Z88.0 Allergy status to penicillin; Z91.02 Food additives allergy status; Z88.1 Allergy status to other antibiotic agents; Z88.5 Allergy status to narcotic agent
CPT/HCPCS: 1NP; 2NAP; CCU; 36415; 36592; 71045; 73590-LT; 81001; 82436; 82570; 86803; 86920; 87086; 87088; 93005; 93010; 93970; 96374; 97161-GP; 97530-GO; J0131; J1644; J1940; J3490; J7040; J7512; P9016; P9047